=== PATIENT | male | born 1930 | race Caucasian/White ===

== ENCOUNTER 2017-01-27 03:16 | Inpatient (IN) | payer MEDICARE, BC ==
[~2017-01-27] VITALS: Ht 175.3 cm; Wt 78.2 kg
[~2017-01-27 03:16] MED LIST: AMIODARONE HCL200 MG PO; ATENOLOL25 MG PO; ATENOLOL50 MG PO; AZITHROMYCIN250 MG PO; CLARITIN10 MG PO; CORTISONE14 GM TOP; COUMADIN2.5 MG PO; LASIX40 MG PO; LIPITOR20 MG PO; METOPROLOL TART50 MG PO; MICRO-K10 MEQ PO; NORVASC5 MG PO; PREDNISONE20 MG PO; SULFAMETHOXAZO1 EAC1 PO; [UNRECOGNIZED DRUG - REMARK]
[2017-01-27] MEDS ORDERED: FLOMAX0.4 MG PO (04:26)
[2017-01-27] MEDS ORDERED: METOPROLOL TART25 MG PO (04:27)
[2017-01-27] MEDS ORDERED: MIDODRINE HCL10 MG PO (04:28)
[2017-01-27] MEDS ORDERED: ROBAXIN500 MG PO (13:45)
[2017-01-27] MEDS ORDERED: OXYCODONE HCL5 MG PO (14:03)
--- NOTE | 2017-01-27 16:44 | EKG ---
[facility] [address] [facility] [place] [address] Signed Atrial fibrillation with rapid ventricular response Abnormal ECG When compared with ECG of 18-DEC-2016 17:34, Nonspecific T wave abnormality now evident in Inferior leads Confirmed by JAS MAYER MD ([id number]) on 01/27/2017 4:44:08 PM Electronically Signed By: JAS MAYER MD 01/27/17 1644 PATIENT NAME: LAICARINEDORA Electrocardiogram DATE OF : 34 PHYSICIAN: JAS MAYER MD REPORT #: [id number] REPORT IS CONFIDENTIAL AND NOT TO BE RELEASED WITHOUT AUTHORIZATION
--- NOTE | 2017-01-27 16:51 | EKG ---
[facility] [address] [facility] [place], [place] [address] Signed Atrial flutter with variable AV block Prolonged QT Abnormal ECG When compared with ECG of 27-JAN-2017 03:23, (Unconfirmed) No significant change was found Confirmed by JAS MAYER MD ([id number]) on 01/27/2017 4:51:27 PM Electronically Signed By: JAS MAYER MD 01/27/17 1651 PATIENT NAME: LAICARINEDORAVictoria DIXON Electrocardiogram DATE OF : 34 PHYSICIAN: JAS MAYER MD REPORT #: [id number] REPORT IS CONFIDENTIAL AND NOT TO BE RELEASED WITHOUT AUTHORIZATION
[2017-01-28] MEDS ORDERED: CALCIUM 600 MG1 EACH PO (14:43)
[2017-01-28] MEDS ORDERED: VITAMIN E400 UNIT PO (14:43)
[2017-01-28] MEDS ORDERED: VITAMIN C500 M1 PO (14:44)
[2017-01-28] MEDS ORDERED: PROSTATE THERA1 EACH PO (14:45)
[2017-01-28] MEDS ORDERED: TRIAMCINOLONE A15 G1 TOP (15:00)
[2017-01-29] MEDS ORDERED: LORATADINE10 MG PO (09:39)
[2017-01-29] MEDS ORDERED: FERROUS SULFAT325 MG PO (09:40)
[2017-01-29] MEDS ORDERED: METOPROLOL TART25 MG PO (09:41)
[2017-01-29] MEDS ORDERED: LANOXIN62.5 MCG PO (09:43)
[2017-01-29] MEDS ORDERED: FUROSEMIDE20 MG PO (09:44)
[2017-01-29] MEDS ORDERED: POTASSIUM CHLO20 ME1 PO (09:45)
[2017-01-29] MEDS ORDERED: MAG-OXIDE400 MG PO (09:55)
[2017-06-25] MEDS ORDERED: DIGOX125 MCG PO (14:39)
[2017-06-25] MEDS ORDERED: COUMADIN3 MG PO (14:40)
[2017-06-25] MEDS ORDERED: CENTRUM SILVER1 EAC3 PO (14:43)
== END 2017-01-29 13:20 | disposition home or self-care (01) | DRG 293 ==
LOC: ED 03:16 → MS 03:18 → ED 03:18 → MS 03:18
PROVIDERS: ADMIT Internal Medicine
DX: I50.32 Chronic diastolic (congestive) heart failure (principal); I48.2 Chronic atrial fibrillation; R79.89 Other specified abnormal findings of blood chemistry; D50.9 Iron deficiency anemia, unspecified; E78.5 Hyperlipidemia, unspecified; N40.1 Benign prostatic hyperplasia with lower urinary tract symptoms; R33.8 Other retention of urine; Z86.73 Personal history of transient ischemic attack (TIA), and cerebral infarction without residual deficits
CPT/HCPCS: 36415; 71010; 80048; 80053; 80162; 82607; 82728; 82746; 83540; 83735; 83880; 84466; 84484; 85025; 85045; 85610; 93005; 93010; 93306; 94640; 94667; 94668; 94760; 94762; 97110; 97116; 97162; J3475

== ENCOUNTER 2018-10-04 19:55 | Emergency (ER) | payer MEDICARE, BC ==
[~2018-10-04] VITALS: Ht 175.3 cm; Wt 78.2 kg
--- OUTSIDE RECORDS SUMMARY | ~2018-10-04 | XMS | Clinical Summary ---
Demographics + + + | Address | [address] | | | [place] [address] | + + + | Home Phone | | + + + | Preferred Language | Unknown | + + + | Marital Status | | + + + | Tenriism Affiliation | Unknown | + + + | Race | Unknown | + + + | Ethnic Group | Unknown | + + + Author + + + | Author | [facility] | | | and Eduardana | + + + | Organization | [facility] | | | and Eduardana | + + + | Address | Unknown | + + + | Phone | Unavailable | + + + Support + + + + + | Name | Relationship | Address | Phone | + + + + + | Rivka Arellano | ECON | | | | | | [place] | | | | | [address] | | + + + + + Care Team Providers + +------+ + | Care Cable Armorer Name | Role | Phone | + +------+ + | Carlos Alberto Galeas MD | PP | | + +------+ + Allergies + + + + + + | Active Allergy | Reactions | Severity | Noted | Comments | | | | | Date | | + + + + + + | Acetaminophen | Rash | Medium | 12/02/19 | | | | | | 14 | | + + + + + + | Lisinopril | Other (See Comments) | Medium | 12/19/19 | | | | | | 17 | | + + + + + + | Naproxen | Other (See Comments) | High | 01/04/20 | States "put me in | | | | | 17 | the hospital with | | | | | | kidney failure" | | | | | | States "put me in | | | | | | the hospital with | | | | | | kidney failure" | + + + + + + | Olmesartan | Other (See Comments) | Medium | 12/19/19 | | | | | | 17 | | + + + + + + | Penicillins | Swelling, Rash, | High | 01/27/20 | Lips swell eyes | | | Hives | | 13 | swell shut and | | | | | | pruritis | + + + + + + | Prednisone | Other (See Comments) | Medium | 06/12/20 | "Knocks heart out | | | | | 17 | of rhythm" | + + + + + + Current Medications + + +---------+---------+------+------+-------+ | Prescription | Sig. | Disp. | Refills | Star | End | Statu | | | | | | t | Date | s | | | | | | Date | | | + + +---------+---------+------+------+-------+ | atorvaSTATin | Take 20 mg by mouth | | | | | Activ | | (LIPITOR) 20 mg | nightly. | | | | | e | | tablet | | | | | | | + + +---------+---------+------+------+-------+ | calcium-vitamin D | Take 1 tablet by | | | | | Activ | | (CALCIUM 600+D) 600 | mouth 2 times daily. | | | | | e | | mg-200 units per | | | | | | | | tablet | | | | | | | + + +---------+---------+------+------+-------+ | tocopherol | Take 400 Units by | | | | | Activ | | (VITAMIN E) 400 | mouth Daily. | | | | | e | | units capsule | | | | | | | + + +---------+---------+------+------+-------+ | ascorbic acid | Take 500 mg by mouth | | | | | Activ | | (VITAMIN C) 500 mg | Daily. | | | | | e | | tablet | | | | | | | + + +---------+---------+------+------+-------+ | Multiple | Take 1 tablet by | | | | | Activ | | Vitamins-Minerals | mouth Daily. | | | | | e | | (CENTRUM SILVER) | | | | | | | | TABS | | | | | | | + + +---------+---------+------+------+-------+ | tamsulosin | Take 2 capsules by | 30 | 1 | / | | Activ | | (FLOMAX) 0.4 mg CAPS | mouth daily (after | capsule | | 04/10 | | e | | | breakfast). | | | 17 | | | + + +---------+---------+------+------+-------+ | digoxin (LANOXIN) | Take 125 mcg by | | | 05/0 | | Activ | | 125 mcg tablet | mouth. | | | /20 | | e | | | | | | 18 | | | + + +---------+---------+------+------+-------+ | furosemide (LASIX) | Take 20 mg by mouth. | | | | | Activ | | 20 mg tablet | | | | | | e | + + +---------+---------+------+------+-------+ | warfarin | Take 3 mg by mouth | | | | | Activ | | (COUMADIN) 5 mg | Daily. As directed 5 | | | | | e | | tablet | mg on , | | | | | | | | Sat, Saturday or as | | | | | | | | directed by doctor. | | | | | | + + +---------+---------+------+------+-------+ | Misc Natural | Take by mouth 2 | | | | | Activ | | Products (PROSTATE | times daily. | | | | | e | | THERAPY COMPLEX) | | | | | | | | CAPS | | | | | | | + + +---------+---------+------+------+-------+ | warfarin | Take 5 mg by mouth | | | | | Activ | | (COUMADIN) 3 MG | Daily. Saturday, Sat, | | | | | e | | tablet | Saturday | | | | | | + + +---------+---------+------+------+-------+ | metoprolol | Take 25 mg by mouth | | | | | Activ | | tartrate (LOPRESSOR) | 2 times daily. | | | | | e | | 25 mg tablet | | | | | | | + + +---------+---------+------+------+-------+ Active Problems + + + | Problem | Noted Date | + + + | Interstitial lung disease (HCC) | 03/12/2018 | + + + | Subclavian steal syndrome | 02/13/2018 | + + + | Decreased GFR | 02/13/2018 | + + + | Atopic dermatitis | 02/06/2018 | + + + | PVD (peripheral vascular disease) (HCC) | 02/06/2018 | + + + | Hypotension | 02/06/2018 | + + + | Chronic atrial fibrillation (HCC) | 02/02/2018 | + + + | Squamous cell carcinoma of upper extremity | 02/02/2018 | + + + | Essential hypertension | 01/30/2018 | + + + | Parotiditis | 11/20/2017 | + + + | Dehydration, mild | 01/16/2017 | + + + | Orthostasis | 01/16/2017 | + + + | Urinary retention due to benign prostatic hyperplasia | 01/14/2017 | + + + | Benign prostatic hyperplasia with lower urinary tract symptoms | 01/07/2017 | + + + | Acute diastolic heart failure (HCC) | 12/31/2016 | + + + | Postoperative hemorrhagic shock, initial encounter | 12/31/2016 | + + + | Elevated INR | 12/31/2016 | + + + | Delirium | 12/31/2016 | + + + | Anticoagulant long-term use | 12/19/2016 | + + + | Femur fracture, left (HCC) | 12/18/2016 | + + + | Femur fracture, right (HCC) | 12/18/2016 | + + + Resolved Problems + + + + | Problem | Noted | Resolved | | | Date | Date | + + + + | Acute respiratory failure with hypoxia (HCC) | 01/01/20 | | | | 17 | 8 | + + + + | Atrial flutter with rapid ventricular response (HCC) | 01/01/20 | | | | 17 | 8 | + + + + | Atrial flutter (HCC) | 12/19/19 | | | | 17 | 8 | + + + + Encounters +--------+ + + + + | Date | Type | Specialty | Care Team | Description | +--------+ + + + + | 09/11/ | Orders Only | | Ck Newman W, | | | 2018 | | | PharmD | | +--------+ + + + + from Last 3 Months Immunizations + + + + | Name | Dates Previously Given | Next Due | + + + + | INFLUENZA 67 Y OR >, | 03/31/2017 | | | TRIVALENT HIGH-DOSE | | | + + + + | PNEUMOCOCCAL | 03/31/2017 | | | POLYSACCHARIDE | | | | 23-VALENT (PPSV23) | | | + + + + Family History + + +------+ + | Medical History | Relation | Name | Comments | + + +------+ + | Coronary artery | Brother | | | | disease | | | | + + +------+ + | * | Brother | X5 | health statuses unknown | + + +------+ + | Emphysema | Father | | | + + +------+ + | Heart attack | Father | | | + + +------+ + | Heart disease | Father | | | + + +------+ + | Coronary artery | Mother | | CABG | | disease | | | | + + +------+ + | No Known Problems | Sister | | | + + +------+ + + +------+ + + | Relation | Name | Status | Comments | + +------+ + + | Brother | | | | + +------+ + + | Brother | X5 | Alive | | + +------+ + + | Father | | | | + +------+ + + | Mother | | | | + +------+ + + | Sister | | Alive | | + +------+ + + Social History + +-------+ +--------+ [...] + +---------+ + | Alcohol Use | Drinks/We | oz/Week | Comments | | | ek | | | + + +---------+ + | Yes | 1 Cans | 0.6 | beer on rare occasions | | | of beer | | | + + +---------+ + + + + | Sex Assigned at | Date Recorded | | | | + + + | Not on file | | + + + Last Filed Vital Signs + + + + | Vital Sign | Reading | Time Taken | + + + + | Blood Pressure | 138/88 | 03/12/2018 125 PDT | + + + + | Pulse | 63 | 03/12/20181250 PDT | + + + + | Temperature | 36.1 C (96.9 F) | 02/24/2018 0853 PDT | + + + + | Respiratory Rate | 14 | 02/28/20180 PDT | + + + + | Oxygen Saturation | 99% | 03/12/20181250 PDT | + + + + | Inhaled Oxygen | - | - | | Concentration | | | + + + + | Weight | 70.3 kg (154 lb 15.7 | 03/12/2018 125 PDT | | | oz) | | + + + + | Height | 165.1 cm (5' 5") | 03/12/2018 125 PDT | + + + + | Body Mass Index | 25.79 | 03/12/2018 1251 PDT | + + + + Plan of Treatment + + + + + | Health Maintenance | Due Date | Last Done | Comments | + + + + + | Vaccine: | | | | | Dtap/Tdap/Td (1 - | 2 | | | | Tdap) | | | | + + + + + | Vaccine: Zoster (1 | | | | | of 2) | 3 | | | + + + + + | Adult Annual | | | | | Wellness Visit | 5 | | | + + + + + | Vaccine: Influenza | | 03/31/2017 | | | (#1) | 8 | | | + + + + + | Vaccine: | | 03/31/2017 | | | Pneumococcal 65+ | 8 | | | | Low/Medium Risk (2 | | | | | of 2 - PCV13) | | | | + + + + + Implants + +--------+--------+ +--------+--------+--------+ | Implanted | Type | Area | Manufacture | Device | Expira | Model | | | | | r | | tion | / | | | | | | Identi | Date | Serial | | | | | | fier | | / Lot | + +--------+--------+ +--------+--------+--------+ | Imp Blade Hlcl Tfna 105mm | Generi | Left: | SYNTHES - | | 01/18/ | 04.038 | | Strl - [id number]: | c | Femur | SYNT | | 2025 | .305S | | Qty: 1 on 12/19/2016 by | | | | | | / | | Lambert Mancuso MD | | | | | | /[id number] | | | | | | | | 58 | + +--------+--------+ +--------+--------+--------+ | Nail Fem Rg Ex [id number] - | Nail | Right: | SYNTHES - | | 02/18/ | 04.013 | | [id number]: Qty: 1 on | | Femur | SYNT | | 2024 | .764S | | 12/19/2016 by Lambert Mancuso | | | | | | / | | MD Dhruv | | | | | | /[id number] | | | | | | | | 95 | + +--------+--------+ +--------+--------+--------+ | Nail Fem Tfna St 130d [id number] | Nail | Left: | SYNTHES - | | 05/21/ | 04.037 | | L - [id number]: Qty: | | Femur | SYNT | | 2026 | .245S | | 1 on 12/19/2016 by Bartolome, | | | | | | / | | Lambert Bartlett MD | | | | | | /[id number] | | | | | | | | 78 | + +--------+--------+ +--------+--------+--------+ | Screw Im Alonso Slf-Tp F/T | Screw | Right: | SYNTHES - | | | 04.005 | | 5x60mm - [id number]: | | Femur | SYNT | | | .550 / | | Qty: 1 on 12/19/2016 by | | | | | | / | | Lambert Mancuso MD | | | | | | | + +--------+--------+ +--------+--------+--------+ | Screw Im Alonso Slf-Tp F/T | Screw | Right: | SYNTHES - | | | 04.005 | | 5x62mm - [id number]: | | Femur | SYNT | | | .552 / | | Qty: 1 on 12/19/2016 by | | | | | | / | | Lambert Mancuso MD | | | | | | | + +--------+--------+ +--------+--------+--------+ | Screw Im Alonso Slf-Tp F/T | Screw | Right: | SYNTHES - | | | 04.005 | | 5x46mm - [id number]: | | Femur | SYNT | | | .536 / | | Qty: 1 on 12/19/2016 by | | | | | | / | | Lambert Mancuso MD | | | | | | | + +--------+--------+ +--------+--------+--------+ | Screw Im Alonso Slf-Tp F/T | Screw | Left: | SYNTHES - | | | 04.005 | | 5x44mm - [id number]: | | Femur | SYNT | | | .534 / | | Qty: 1 on 12/19/2016 by | | | | | | / | | Lambert Mancuso MD | | | | | | | + +--------+--------+ +--------+--------+--------+ Results Not on filefrom Last 3 Months Insurance + +--------+ +--------+ +---------+ | Payer | Benefi | Subscriber | Type | Phone | Address | | | t Plan | ID | | | | | | / | | | | | | | Group | | | | | + +--------+ +--------+ +---------+ | MEDICARE | MEDICA | [id number] | Medica | +1-- | | | | RE | | re | [phone] | | | | PART A | | | | | | | AND B | | | | | + +--------+ +--------+ +---------+ | BCBS | BCBS | [id number] | Indemn | | | | | OOS | 2 | ity | | | | | MDCR | | | | | | | SUPPL | | | | | + +--------+ +--------+ +---------+ + +--------+ +--------+ + + | Guarantor Name | Accoun | Relation to | Date | Phone | Billing Address | | | t Type | Patient | of | | | | | | | | | | + +--------+ +--------+ + + | DORA ARELLANO | Person | Self [birth year] | Home: | | | | al/Fam | | 1931 | [phone] | [place] [address] | | | dorothea | | | [phone] | | + +--------+ +--------+ + +
--- OUTSIDE RECORDS SUMMARY | ~2018-10-04 | XMS | Encounter Summary ---
Demographics + + + | Address | [address] | | | [place] [address] | + + + | Home Phone | | + + + | Preferred Language | Unknown | + + + | Marital Status | | + + + | Samaritan Affiliation | Unknown | + + + | Race | Unknown | + + + | Ethnic Group | Unknown | + + + Author + + + | Author | [facility] | | | and Eduardana | + + + | Organization | [facility] | | | and Eduardana | [...] [place] | | | | | [address] | | + + + + + Care Team Providers + +------+ + | Care Continuous Pillowcase Cutter Name | Role | Phone | + [...] | | | | | [address] | [address] [place] | | | | | [place] | [address] | | | | | [address] | | | | | | [phone] | | | +--------+ + + + [...] on file | | + + + as of this encounter Functional Status + [...] | | | + + + + as of this encounter Progress Notes Ck Newman, PharmD - 09/11/2018 0942 PSTIn October 2018 the Electronic Medical Record (EM R) system used by [facility] will be updated. The category used to file the infusion therapy plan currently ordered for this patient is to be discontinued. Th e changes to the order category within the EMR are administrative and in no way affect the c are of the patient. This encounter was created in the EMR to review the current orders for this patient and moustapha e the necessary changes to insure continuity of care. Please contact the [facility] at with any questions regarding these dwyer ashleigh. in this encounter Plan of Treatment Not on fileas of this encounter Visit Diagnoses Not on filein this encounter"
--- OUTSIDE RECORDS SUMMARY | ~2018-10-04 | XMS | Encounter Summary ---
Demographics + + + | Address | [address] | | | [place] [address] | + + + | Home Phone | | + + + | Preferred Language | Unknown | + + + | Marital Status | | + + + | Jehovah'S Witness Affiliation | Unknown | + + + | Race | Unknown | + + + | Ethnic Group | Unknown | + + + Author + + + | Author | [facility] | | | and Eduardana | + + + | Organization | [facility] | | | and Eduardana [...] [place] | | | | | [address] | | + + + + + Care Team Providers + +------+ + | Care Construction Rep Name | Role | Phone | + +------+ + | Carlos Alberto Gaelas MD | PCP | | + +------+ [...] | | | | | [address] | [address] [place] | | | | | [place] | [address] | | | | | [address] | | | | | | [phone] | | | +--------+ + + + [...] Medical Record (EM R) system used by [facility] will be updated. The category used to [...] insure continuity of care. Please contact the [facility] at with any questions regarding these dwyer ashleigh. in this encounter Plan of Treatment Not on fileas of this encounter Visit Diagnoses Not on filein this encounter"
--- OUTSIDE RECORDS SUMMARY | ~2018-10-04 | XMS | Clinical Summary ---
Demographics + + + | Address | [address] | | | [place] [address] | + + + | Home Phone [...] + + | Author | [facility] | | | and Eduardana | + + + | Organization | [facility] [...] [place] | | | | | [address] | | + + + + + Care Team Providers + +------+ + | Care Tech Brazer Tester Name | Role | Phone | + [...] 01/18/ | 04.038 | | Strl - [id number]: | c | Femur | SYNT | | 2025 | .305S | | Qty: 1 on 12/19/2016 by | | | | | | / | | Lambert Mancuso MD | | | | | | /[id number] | | | | | | | | 58 | + +--------+--------+ +--------+--------+--------+ | Nail Fem Rg Ex [id number] - | Nail | Right: | SYNTHES - | | 02/18/ | 04.013 | | [id number]: Qty: 1 on | | Femur | SYNT | | 2024 | .764S | | 12/19/2016 by Lambert Mancuso | | | | | | / | | MD Dhruv | | | | | | /[id number] | | | | | | | | 95 | + +--------+--------+ +--------+--------+--------+ | Nail Fem Tfna St 130d [id number] | Nail | Left: | SYNTHES - | | 05/21/ | 04.037 | | L - [id number]: Qty: | | Femur | SYNT | [...] | | 04.005 | | 5x60mm - [id number]: | | Femur | SYNT | | | .550 / | | Qty: 1 on 12/19/2016 by | | | | | | / | | Lambert Mancuso MD | | | | | | | + +--------+--------+ +--------+--------+--------+ | Screw Im Alonso Slf-Tp F/T | Screw | Right: | SYNTHES - | | | 04.005 | | 5x62mm - [id number]: | | Femur | SYNT | | | .552 / | | Qty: 1 on 12/19/2016 by | | | | | | / | | Lambert Mancuso MD | | | | | | | + +--------+--------+ +--------+--------+--------+ | Screw Im Alonso Slf-Tp F/T | Screw | Right: | SYNTHES - | | | 04.005 | | 5x46mm - [id number]: | | Femur | SYNT | | | .536 / | | Qty: 1 on 12/19/2016 by | | | | | | / | | Lambert Mancuso MD | | | | | | | + +--------+--------+ +--------+--------+--------+ | Screw Im Alonso Slf-Tp F/T | Screw | Left: | SYNTHES - | | | 04.005 | | 5x44mm - [id number]: | | Femur | SYNT | | [...] +--------+ +---------+ | MEDICARE | MEDICA | [id number] | Medica | +1-- | | | | RE | | re | [phone] | | | | PART A | | | | | | | AND B | | | | | + +--------+ +--------+ +---------+ | BCBS | BCBS | [id number] | Indemn | | | | | [...] | 1931 | [phone] | [place] [address] | | | dorothea | | | [phone] | | + +--------+ +--------+ + +
[~2018-10-04 19:55] MED LIST changes: +CALCIUM 600 MG1 EACH PO; +CENTRUM SILVER1 EAC3 PO; +COUMADIN3 MG PO; +COUMADIN5 MG PO; +DIGOX125 MCG PO; +FERROUS SULFAT325 MG PO; +FLOMAX0.4 MG PO; +FUROSEMIDE20 MG PO; +LANOXIN62.5 MCG PO; +LORATADINE10 MG PO; +MAG-OXIDE400 MG PO; +METOPROLOL TART25 MG PO; +MIDODRINE HCL10 MG PO; +OXYCODONE HCL5 MG PO; +POTASSIUM CHLO20 ME1 PO; +PROSTATE THERA1 EACH PO; +ROBAXIN500 MG PO; +TRIAMCINOLONE A15 G1 TOP; +VITAMIN C500 M1 PO; +VITAMIN E400 UNIT PO
--- NOTE | 2018-10-05 19:49 | EKG ---
[facility] [address] [facility] [place], [place] [address] Signed Atrial flutter with variable AV block Abnormal ECG When compared with ECG of 27-JAN-2017 16:06, QT has shortened Confirmed by MARTÍN NELSON DO ([id number]) on 10/05/2018 7:49:20 PM Electronically Signed By: MARTÍN NELSON DO 10/05/18 1949 PATIENT NAME: MARTA ARELLANOVictoria MCCORDDESTINY Electrocardiogram DATE OF : 34 PHYSICIAN: MARTÍN NELSON DO REPORT #: [id number] REPORT IS CONFIDENTIAL AND NOT TO BE RELEASED WITHOUT AUTHORIZATION
== END 2018-10-04 21:26 | disposition home or self-care (01) ==
LOC: ED 19:55
DX: I50.9 Heart failure, unspecified (principal); I48.91 Unspecified atrial fibrillation; Z86.73 Personal history of transient ischemic attack (TIA), and cerebral infarction without residual deficits; Z87.891 Personal history of nicotine dependence; Z88.0 Allergy status to penicillin; Z88.8 Allergy status to other drugs, medicaments and biological substances; Z79.01 Long term (current) use of anticoagulants; Z79.899 Other long term (current) drug therapy
CPT/HCPCS: 71046; 80053; 80162; 83735; 83880; 84484; 85025; 85610; 85730; 93005; 93010; 96374; 99285-25; J1940

== ENCOUNTER 2019-08-14 07:37 | Emergency (ER) | payer MEDICARE ==
[~2019-08-14] VITALS: Ht 175.3 cm; Wt 78.2 kg
[2019-08-14] MEDS ORDERED: COLACE100 MG PO (08:52)
== END 2019-08-14 09:24 | disposition home or self-care (01) ==
LOC: ED 07:37
DX: K59.00 Constipation, unspecified (principal); I48.91 Unspecified atrial fibrillation; Z86.73 Personal history of transient ischemic attack (TIA), and cerebral infarction without residual deficits; Z88.0 Allergy status to penicillin; Z88.8 Allergy status to other drugs, medicaments and biological substances; Z79.899 Other long term (current) drug therapy; Z79.01 Long term (current) use of anticoagulants
CPT/HCPCS: 74022; 99284-25

== ENCOUNTER 2019-11-20 08:58 | Emergency (ER) | payer MEDICARE ==
[~2019-11-20] VITALS: Ht 175.3 cm; Wt 78.2 kg
--- OUTSIDE RECORDS SUMMARY | ~2019-11-20 | XMS | Encounter Summary ---
Demographics + + + | Address | [address] | | | [place] [address] | + + + | Home Phone | | + + + | Preferred Language | Unknown | + + + | Marital Status | | + + + | Anabaptist Affiliation | Unknown | + + + | Race | Unknown | + + + | Ethnic Group | Unknown | + + + Author + + + | Author | [facility] | | | and Eduardana | + + + | Organization | [facility] | | | and Eduardana | + + + | Address | Unknown | + + + | Phone | Unavailable | + + + Support + + + + + | Name | Relationship | Address | Phone | + + + + + | Rivka Thomason | [place] | | | | | | [place] | | | | | [address] | | + + + + + Care Team Providers + +------+ + | Care Sander Hand Name | Role | Phone | + +------+ + | Carlos Alberto Galeas MD | PCP | | + +------+ + Reason for Visit Evaluate & Treat (Routine) + + + + + + + | Status | Reason | Specialty | Diagnoses / | Referred By | Referred To | | | | | Procedures | Contact | Contact | + + + + + + + | Authorized | Specialty | Vascular | Diagnoses | [place], | [facility] | | | Services | Surgery | Chronic | MD Paolo | Surgery | | | Required | | atrial | [address] | | | | | fibrillation | [address] | [address] | | | | | (HCC) | [address] | [place], [place] | | | | | Essential | [place], [place] | [address] | | | | | hypertension | [address] | Phone: | | | | | PVD | Phone: | [phone] | | | | | (peripheral | [phone] | Fax: | | | | | vascular | Fax: | [phone] | | | | | disease) | [phone] | | | | | | ([facility]) | | | | | | | Bilateral | | | | | | | carotid | | | | | | | artery | | | | | | | stenosis | | | + + + + + + + Encounter Details +--------+ + + + + | Date | Type | Department | Care Team | Description | +--------+ + + + + | 07/02/ | Hospital | [facility] | Yoav, Si, DNP | PAD (peripheral | | 2019 | Encounter | VASCULAR SURGERY | [address] | artery disease) | | | | ULTRASOUND [address] | [address] [place], [place] | ([facility]) | | | | [address] | [address] | | | | | [place], [place] | | | | | | [address] | | | | | | [phone] | | | +--------+ + + + + Social History + +-------+ +--------+ + | Tobacco Use | Types | Packs/Day | Years | Date | | | | | Used | | + +-------+ +--------+ + | Former Smoker | | 1 | 50 | 3 2002 | + +-------+ +--------+ + + [...] on file | | + + + + + + + | Job Start Date | Occupation | Industry | + + + + | Not on file | Not on file | Not on file | + + + + + + + + | Travel History | Travel Start | Travel End | + + + + + + | No recent travel history available. | + + documented as of this encounter [...] + + + +---------+ + + | Ascorbic Acid | Take 1 capsule by | | 0 | | | | (VITAMIN C) 500 MG | mouth Daily. | | | | | | CAPS [...] + + + +---------+ + + | [facility] M20 20 | | | 0 | 09/07/19 | | | MEQ ER tablet | | | | 19 | | + + + +---------+ + [...] + +---------+ + + | tocopherol | vitamin E (dl, | | 0 | | | | (VITAMIN E) 400 | acetate) 400 unit | | | | | | units capsule | capsule Take by oral | | | | | | | route. | | | | | + + + +---------+ + + | warfarin | Take 3 mg by mouth | | 0 | | | | (COUMADIN) 3 MG | Daily. 3 mg on Mon | | | | | | tablet | and Fri | | | | | + + + +---------+ + + | warfarin | Take 5 mg by mouth | | 0 | | | | (COUMADIN) 5 mg | Daily. 5 mg on Tues, | | | | | | tablet | Isaac Fernando Sat, | | | | | | | Sun | | | | | + + + +---------+ + + documented as of this encounter Plan of Treatment +--------+---------+ + + + | Date | Type | Specialty | Care Team | Description | +--------+---------+ + + + | 01/26/ | Office | Cardiology | Paolo Selby, | | | 2019 | Visit | | MD Marjan MAIRNELLI | | | | | | [address] [place] | | | | | | [id number] | | | | | | | | +--------+---------+ + + + documented as of this encounter Visit Diagnoses + + | Diagnosis | + + | PAD (peripheral artery disease) (HCC) Unspecified disorders of arteries and | | arterioles | + + documented in this encounter"
--- OUTSIDE RECORDS SUMMARY | ~2019-11-20 | XMS | Encounter Summary ---
Demographics + + + | Address | [address] | | | [place] [address] | + + + | Home Phone | | + + + | Preferred Language | Unknown | + + + | Marital Status | | + + + | Yazidism Affiliation | Unknown | + + + | Race | Unknown | + + + | Ethnic Group | Unknown | + + + Author + + + | Author | [facility] | | | and [place]ard[place] | + + + | Organization | [facility] | | | and Eduardana | + + + | Address | Unknown | + + + | Phone | Unavailable | + + + Support + + + + + | Name | Relationship | Address | Phone | + + + + + | Rivka Thomason | ECON | | | | | | [place] | | | | | [address] | | + + + + + Care Team Providers + +------+ + | Care Supply Chain Director Name | Role | Phone | + +------+ + | Carlos Alberto Galeas MD | PCP | | + +------+ + Encounter Details +--------+ + + + + | Date | Type | Department | Care Team | Description | +--------+ + + + + | 01/07/ | Hospital | [facility] | Michael Alston | Stenosis of carotid | | 2019 | Encounter | [facility] ULTR[facility]OUND | MD Dante, FACS [address] | artery, unspecified | | | | [address] [place] | [address] [place] | laterality | | | | [place], [place] | [place] [address] | | | | | [address] | [phone] | | | | | [phone] | | | +--------+ + + + + Social History + +-------+ +--------+ + | Tobacco Use | Types | Packs/Day | Years | Date | | | | | Used | | + +-------+ +--------+ + | Former Smoker | | 1 | 50 | 3 - 2002 | + +-------+ +--------+ + [...] + + + +---------+ + + | KLOR-CON M20 20 | | | 0 | [...] 5 mg | Daily. 5 mg on , | | | | | | tablet [...] + + + +---------+ + + | triamcinolone | | | 0 | 10/07/19 | | | (KENALOG) 0.1% cream | | | | 19 | 9 | + + + +---------+ + + documented as of this encounter Plan of Treatment +--------+---------+ + + + | Date | Type | Specialty | Care Team | Description | +--------+---------+ + + + | 01/26/ | Office | Cardiology | Paolo Selby, | | | 2019 | Visit | | MD Marjan MARINELLI | | | | | | [address] [place], [place] | | | | | | [address] | | | | | | | | +--------+---------+ + + + documented as of this encounter Procedures + +--------+ + + + | Procedure Name | Priori | Date/Time | Associated Diagnosis | Comments | | | ty | | | | + +--------+ + + + | VAS CAROTID DUPLEX | Routin | 01/07/2019 | 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Results for this | | BILATERAL | e | 2:50 PM | carotid artery, | procedure are in the | | | | PDT | unspecified | results section. | | | | | laterality | | + +--------+ + + + documented in this encounter Results VAS Carotid Duplex Bilateral (01/07/2019 2:50 PM PDT) + + | Specimen | + + | | + + + + + | Narrative | Performed At | + + + | BILATERAL DUPLEX CAROTID ULTRASOUND 01/07/2019 1:53 PM CLINICAL | [facility] | | HISTORY: Carotid Stenosis COMPARISON: CTA DECEMBER 25, ULTRASOUND JANUARY | | | 2017 FINDINGS: Grayscale, color Doppler and duplex Doppler | | | interrogation of the bilateral cervical carotid arteries is | | | performed. All reported velocities are in cm/sec. ANTERIOR | | | CIRCULATION: Right: CCA: 39/11; bulb: 240/30 (bulb/CCA 6.1, | | | previously 162/20 with ratio of 3.6); ECA: 229/25; ICA: 187/26 | | | (ICA/CCA 4.8, previously 5.4) Left: CCA: 57/10; bulb: 107/19; ECA: | | | 194/9; ICA: 130/17 (ICA/CCA 2.3, previously 155/27 with ratio of | | | 2.9) Posterior circulation: The right vertebral artery is not | | | identified. To and fro flow is suggested in the left vertebral | | | artery. Grayscale findings: Prominent echogenic, irregular plaque | | | is present in the right carotid bulb and extending into the origin of | | | the internal and external carotid arteries. Attached but mobile | | | echogenic plaque is noted in the carotid bulb. There is prominent | | | echogenic, shadowing plaque in the left carotid bulb, somewhat | | | obscuring the origins of the internal and external carotid arteries. | | | IMPRESSION - 1. FINDINGS CONSISTENT WITH GREATER THAN 70% | | | STENOSIS AT THE LEVEL OF THE RIGHT CAROTID BULB BASED ON PEAK | | | SYSTOLIC VELOCITY AND BULB/RATIO CRITERIA, CORRESPONDING WITH | | | FINDINGS DESCRIBED ON RECENT CTA OF DECEMBER 25, AND INCREASED FROM | | | ULTRASOUND OF JANUARY 2018. AN ATTACHED BUT MOBILE PIECE OF PLAQUE IS | | | NOTED IN THE RIGHT CAROTID BULB. 2. FINDINGS CONSISTENT WITH | | | 50-69% STENOSIS OF THE PROXIMAL LEFT INTERNAL CAROTID ARTERY. 3. | | | TO AND FRO FLOW IN THE LEFT VERTEBRAL ARTERY, LIKELY RELATED TO | | | PROXIMAL SUBCLAVIAN ARTERIAL STENOSIS NOTED ON CTA. Dictated and | | | Signed by: Daniel Jordan MD Electronically signed: 01/07/2019 6:25 | | | PM | | + + + + + | Procedure Note | + + | Stan, Rad Results In - 01/07/2019 6:28 PM PDT BILATERAL DUPLEX CAROTID ULTRASOUND | | 01/07/2019 1:53 PMCLINICAL HISTORY: Carotid StenosisCOMPARISON: CTA DECEMBER 25, ULTRASOUND | | JANUARY 2018FINDINGS: Grayscale, color Doppler and duplex Doppler interrogation of | | thebilateral cervical carotid arteries is performed. All reported velocities arein | | cm/sec.ANTERIOR CIRCULATION:Right: CCA: 39/11; bulb: 240/30 (bulb/CCA 6.1, previously | | 162/20 with ratio of3.6); ECA: 229/25; ICA: 187/26 (ICA/CCA 4.8, previously 5.4)Left: | | CCA: 57/10; bulb: 107/19; ECA: 194/9; ICA: 130/17 (ICA/CCA 2.3, [id number] with | | ratio of 2.9)Posterior circulation: The right vertebral artery is not identified. To | | and froflow is suggested in the left vertebral artery.Grayscale findings: Prominent | | echogenic, irregular plaque is present in theright carotid bulb and extending into the | | origin of the internal and externalcarotid arteries. Attached but mobile echogenic | | plaque is noted in the carotidbulb. There is prominent echogenic, shadowing plaque in | | the left carotid bulb,somewhat obscuring the origins of the internal and external | | carotid arteries.IMPRESSION -1. FINDINGS CONSISTENT WITH GREATER THAN 70% STENOSIS AT | | THE LEVEL OF THERIGHT CAROTID BULB BASED ON PEAK SYSTOLIC VELOCITY AND BULB/RATIO | | CRITERIA,CORRESPONDING WITH FINDINGS DESCRIBED ON RECENT CTA OF DECEMBER 25, AND | | INCREASEDFROM ULTRASOUND OF JANUARY 2018. AN ATTACHED BUT MOBILE PIECE OF PLAQUE IS | | NOTEDIN THE RIGHT CAROTID BULB.2. FINDINGS CONSISTENT WITH 50-69% STENOSIS OF THE | | PROXIMAL LEFT INTERNALCAROTID ARTERY.3. TO AND FRO FLOW IN THE LEFT VERTEBRAL ARTERY, | | LIKELY RELATED TO PROXIMALSUBCLAVIAN ARTERIAL STENOSIS NOTED ON CTA.Dictated and Signed | | by: Daniel Jordan MD Electronically signed: 01/07/2019 6:25 PM | |right carotid bulb and extending into the origin of the internal and external | |carotid arteries. Attached but mobile echogenic plaque is noted in the carotid | |bulb. There is prominent echogenic, shadowing plaque in the left carotid bulb, | |somewhat obscuring the origins of the internal and external carotid arteries. | | | |IMPRESSION - | |1. FINDINGS CONSISTENT WITH GREATER THAN 70% STENOSIS AT THE LEVEL OF THE | |RIGHT CAROTID BULB BASED ON PEAK SYSTOLIC VELOCITY AND BULB/RATIO CRITERIA, | |CORRESPONDING WITH FINDINGS DESCRIBED ON RECENT CTA OF DECEMBER 25, AND INCREASED | |FROM ULTRASOUND OF JANUARY 2018. AN ATTACHED BUT MOBILE PIECE OF PLAQUE IS NOTED | |IN THE RIGHT CAROTID BULB. | | | |2. FINDINGS CONSISTENT WITH 50-69% STENOSIS OF THE PROXIMAL LEFT INTERNAL | |CAROTID ARTERY. | | | |3. TO AND FRO FLOW IN THE LEFT VERTEBRAL ARTERY, LIKELY RELATED TO PROXIMAL | |SUBCLAVIAN ARTERIAL STENOSIS NOTED ON CTA. | | | |Dictated and Signed by: Daniel Jordan MD | | Electronically signed: 01/07/2019 6:25 PM | + + + +---------+ + + | Performing | Address | City[facility] | Phone Number | | Organization | | | | + +---------+ + + | [facility] | | | | + +---------+ + + documented in this encounter Visit Diagnoses + + | Diagnosis | + + | Stenosis of carotid artery, unspecified laterality | + + documented in this encounter"
--- OUTSIDE RECORDS SUMMARY | ~2019-11-20 | XMS | Encounter Summary ---
Demographics + + + | Address | [address] | | | [place] [address] | + + + | Home Phone | | + + + | Preferred Language | Unknown | + + + | Marital Status | | + + + | Spiritism Affiliation | Unknown | + + + | Race | Unknown | + + + | Ethnic Group | Unknown | + + + Author + + + | Author | [facility] | | | and [place]ard[place] | + + + | Organization | [facility] | | | and [place] | [...] [place] | | | | | [address] | | + + + + + Care Team Providers + +------+ + | Care Compliance Consultant Name | Role | Phone | + +------+ + | Carlos Alberto Galeas MD | PCP | | + +------+ + Reason for Visit + + + | Reason | Comments | + + + | Follow-up | post left angio and left fem endart | + + + Encounter Details +--------+---------+ + + + | Date | Type | Department | Care Team | Description | +--------+---------+ + + + | 09/29/ | Office | [facility] | Osmin Garber MD | Critical limb | | 2019 | Visit | VASCULAR SURGERY | [address] | ischemia with | | | | [address] | [address] | history of | | | | [place], [place] | [place] [address] | revascularization of | | | | [address] | [phone] | same extremity | | | | [phone] | | (Primary Dx) | +--------+---------+ + + + Social History [...] this encounter Last Filed Vital Signs + +---------+ + + | Vital Sign | Reading | Time Taken | Comments | + +---------+ + + | Blood Pressure | 145/72 | 09/30/2019 2:59 PM | | | | | PDT | | + +---------+ + + | Pulse | 64 | 09/30/2019 2:59 PM | | | | | PDT | | + +---------+ + + | Temperature | - | - | | + +---------+ + + | Respiratory Rate | - | - | | + +---------+ + + | Oxygen Saturation | 98% | 09/30/2019 2:59 PM | | | | | PDT | | + +---------+ + + | Inhaled Oxygen | - | - | | | Concentration | | | | + +---------+ + + | Weight | - | - | | + +---------+ + + | Height | - | - | | + +---------+ + + | Body Mass Index | - | - | | + +---------+ + + documented in this encounter Functional [...] documented as of this encounter Progress Notes Osmin Garber MD - 09/30/2019 3:30 PM PDTFormatting of this note might be different from t he original. [facility] [address] [place] [address] Office: [phone] DATE OF VISIT: 09/30/19 PATIENT NAME: Deborah Thomason : 1930; AGE:89 y.o.; Sex:M PHONE NUMBER: ; PHYSICIAN: Osmin Garber MD PRIMARY CARE / REFERRING PHYSICIAN: No ref. provider found / Carlos Alberto Galeas MD / [id number] / [place] [id number] REASON FOR EVALUATION / CHIEF COMPLAINT: evaluation status-post left common femoral endarte rectomy, left profunda femoral endarterectomy, left external iliac artery endarterectomy, ao rtogram, left lower extremity angiogram, left common iliac artery angioplasty, and left exte rnal iliac artery angioplasty HISTORY OF PRESENT ILLNESS: Mr Thomason is a pleasant 89 y.o. male, with a past medical histor y significant for atrial fibrillation, previous cerebrovascular accident, congestive heart f ailure, coronary artery disease, and peripheral vascular disease, who is referred to nc for evaluation status-post left common femoral endarterectomy, left profunda femoral endarterect shahnaz, left external iliac artery endarterectomy, aortogram, left lower extremity angiogram, l eft common iliac artery angioplasty, and left external iliac artery angioplasty. Patient had undergone a left common femoral endarterectomy, left profunda femoral endarterectomy, left external iliac artery endarterectomy, aortogram, left lower extremity angiogram, left common iliac artery angioplasty, and left external iliac artery angioplasty with nc on 09/11/2019. Patient has been overall well and gradually recovering since that time. Patient does continu e to experience left foot pain that is mildly improved when compared to before the surgery. Patient states symptoms are notably worse in the mornings, but improve throughout the day. 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 PVD (peripheral vascular disease) ([facility]) 02/06/2018 PVD (peripheral vascular disease) ([facility]) Urinary retention Past Surgical History: Procedure Laterality Date ARTERY SURGERY Left 09/11/2019 Procedure: ENDARTERECTOMY FEMORAL; Surgeon: Osmin Garber MD; [place] [facility] [place] [facility] [place] CAROTID ENDARTERECTOMY Right CATARACT REMOVAL WITH IMPLANT Bilateral 03/30/10 and 04/27/10 CORONARY ANGIOPLASTY without stent [facility] [id number] FEMUR FRACTURE SURGERY Right 12/19/2016 Procedure: ORIF IM RODDING FEMORAL ANTEGRADE; Surgeon: Lambert Mancuso MD; Location: [facility] MAIN OR FEMUR FRACTURE SURGERY Left [...] l umen on Q pain pump placement. [facility] - Dr. Delaney Right thigh biopsy 10/24/2011 nonspecific chronic dermatitis Ultrasound guided access, right common femoral artery 11/30/2013 Right iliac angiography, Right femoral angiography with runoff. [facility] - Dr. Delaney Social History Tobacco Use Smoking status: Former Smoker Packs/day: 1.00 Years: 50.00 Pack years: 50.00 Start date: 1952 Last attempt to quit: 2002 Years since quittin.2 Smokeless tobacco: Never Used Substance Use Topics Alcohol use: Not Currently Alcohol/week: 1.0 standard drinks Types: 1 Cans of beer per week Frequency: Never Comment: no alcohol for years Drug use: No Family History Problem Relation Age of Onset Coronary artery disease Mother CABG Heart attack Father Heart disease Father Emphysema Father No known problems Sister Coronary artery disease Brother * Brother health statuses unknown Current Outpatient Medications on File Prior to Visit Medication Sig Dispense Refill amiodarone (PACERONE) 200 mg tablet Take 1 tablet by mouth Daily. 60 tablet 3 Ascorbic Acid (VITAMIN C) 500 MG CAPS Take 1 capsule by mouth Daily. calcium-vitamin D (CALCIUM 600+D) 600 mg-200 units per tablet Take 1 tablet by mouth 2 times daily. clopidogrel (PLAVIX) 75 mg tablet Take 1 tablet by mouth Daily. 60 tablet 3 digoxin (LANOXIN) 125 mcg tablet Take 125 [...] (See Comments) "Knocks heart out of rhythm" ROS: Comprehensive ROS performed and pertinent items described in the HPI. VITALS: BP 145/72 | Pulse 64 | SpO2 98% EXAM: CONSTITUTIONAL: Conversant. Well-developed. No acute distress. EYES: Anicteric sclerae. No lid drag. No proptosis. RESPIRATORY: Normal effort. Regular, even, and unlabored rate. CARDIOVASCULAR: Regular rate and normal rhythm. ABDOMEN: Soft, non-tender, non-distended. SKIN: warm, dry EXTREMITIES: 1+ edema left lower extremity, small lesion at base of left MTP on lateral bonnie t, improved from previous, left groin incision well approximated with samy c/d/I. NEUROLOGIC: Cranial nerves II-XII grossly intact. Alert and oriented x 3. PSYCHIATRIC: Appropriate affect, speech, and tone. Judgement and insight intact. VASCULAR: monophasic-biphasic DP/PT ASSESSMENT/PLAN: Mr. Thomason is doing well post op from left iliac stents, and external iliac, [employer] PAYMENTS RECEIVED, and PFA en darterectomy for LLE CLI. 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 Deferred treating at last operation as my hope was improved inflow would aid healing and get him out of rest tk n. Wound does seem to be improving. He reports continued discomfort in foot however. He h as non-compressible JEREMY's however waveforms at digit look overall much improved. It took hi m awhile to recover from his last procedure. I will see him back in 1 month. If he continu es to have issues I will pursue further intervention on the LLE. Patient and his comfo rtable with the plan. Attending Note: Documentation assistance provided by Livia Ch (Scribe). Information recorded by the scribe has been reviewed and validated by me. I agree with its contents. Signed by: Raiza Mccall 09/30/19. Osmin Garber MD Vascular Surgery Coby oswald in this encounter Plan of Treatment +--------+---------+ + + + | Date | Type | Specialty | Care Team | Description | +--------+---------+ + + + | 01/26/ | Office | Cardiology | Paolo Selby, | | | 2019 | Visit | | MD Marjan MARINELLI | | | | | | [address] [place], [place] | | | | | | [id number] | | | | | | | | +--------+---------+ + + + documented as of this encounter Visit Diagnoses + + | Diagnosis | + + | Critical limb ischemia with history of revascularization of same extremity - Primary | + + documented in this encounter
--- OUTSIDE RECORDS SUMMARY | ~2019-11-20 | XMS | Encounter Summary ---
Demographics + + + | Address | [address] | | | [place] [address] | + + + | Home Phone | | + + + | Preferred Language | Unknown | + + + | Marital Status | | + + + | Taoism Affiliation | Unknown | + + + | Race | Unknown | + + + | Ethnic Group | Unknown | + + + Author + + + | Author | [facility] | | | and [place]ardana | + + + | Organization | [facility] | | | and [place] | [...] [place] | | | | | [address] | | + + + + + Care Team Providers + +------+ + | Care Suede Brusher Name | Role | Phone | + +------+ + | Carlos Alberto Galeas MD | PCP | | + +------+ + Encounter Details +--------+ + + + + | Date | Type | Department | Care Team | Description | +--------+ + + + + | 02/03/ | Hospital | [facility] | Adal, Carlos Alberto | PVD (peripheral | | 2018 | Encounter | MED CTR ULTRASOUND | MD Dylan [address] | vascular disease) | | | | [address] | [place] [address] | ([facility]) | | | | [address] | [place] [address] | | | | | [address] | [phone] | | | | | [phone] | | | +--------+ + + + [...] | 01/26/ | Office | Cardiology | [place], [place], | | | 2020 | Visit | | [address] | | | | | | [address] [facility] [place] | | | | | | [address] | | | | | | | [...] the | | | | PDT | ([facility]) | results section. | + +--------+ + [...] + | Stan, Rad Results In - 02/03/2018 3:55 PM PDT [...] the proximal bypass.Dictated and Signed by: Nikko Morejon | | Electronically signed: 02/03/2018 3:52 PM [...]
--- OUTSIDE RECORDS SUMMARY | ~2019-11-20 | XMS | Encounter Summary ---
Demographics + + + | Address | [address] | | | [place] [address] | + + + | Home Phone | | + + + | Preferred Language | Unknown | + + + | Marital Status | | + + + | Yarsanism Affiliation | Unknown | + + + | Race | Unknown | + + + | Ethnic Group | Unknown | + + + Author + + + | Author | [facility] | | | and [place] | + + + | Organization | [facility] | | | and [place] [...] [place] | | | | | [id number] | | + + + + + Care Team Providers + +------+ + | Care Medical Lab Specialist Name | Role | Phone | + +------+ + | Carlos Alberto Galeas MD | PCP | | + +------+ + Encounter Details +--------+ + + + + | Date | Type | Department | Care Team | Description | +--------+ + + + + | 02/06/ | Abstract | [facility] | Michael Alston | | | 2018 | | SURGERY [address] MD, FACS [address] | | [address] [place], [place] | [address] [place] | | | | | [address] | [place] [address] | | | | | [phone] | [phone] | | | | | | | | +--------+ + + + [...] | 01/26/ | Office | Cardiology | Jama Selbydanis, | | | 2019 | Visit | | MD Marjan MARINELLI | | | | | | [place] | | | | | | [id number] | | | | | | | | +--------+---------+ + + + documented as of this encounter Procedures + +--------+ + + + | Procedure Name | Priori | Date/Time | Associated Diagnosis | Comments | | | ty | | | | + +--------+ + + + | EXTERNAL LAB: | Routin | 11/18/2017 | | Results for this | | GLUCOSE | e | | | procedure are in the | | | | | | results section. | + +--------+ + + + | EXTERNAL LAB: ALT | Routin | 11/18/2017 | | Results for this | | | e | | | procedure are in the | | | | | | results section. | + +--------+ + + + | EXTERNAL LAB: AST | Routin | 11/18/2017 | | Results for this | | | e | | | procedure are in the | | | | | | results section. | + +--------+ + + + | EXTERNAL LAB: | Routin | 11/18/2017 | | Results for this | | ALKALINE PHOSPHATASE | e | | | procedure are in the | | | | | | results section. | + +--------+ + + + | EXTERNAL LAB: | Routin | 11/18/2017 | | Results for this | | BILIRUBIN, TOTAL | e | | | procedure are in the | | | | | | results section. | + +--------+ + + + | EXTERNAL LAB: | Routin | 11/18/2017 | | Results for this | | ALBUMIN | e | | | procedure are in the | | | | | | results section. | + +--------+ + + + | EXTERNAL LAB: | Routin | 11/18/2017 | | Results for this | | PROTEIN, TOTAL | e | | | procedure are in the | | | | | | results section. | + +--------+ + + + | EXTERNAL LAB: | Routin | 11/18/2017 | | Results for this | | CALCIUM | e | | | procedure are in the | | | | | | results section. | + +--------+ + + + | EXTERNAL LAB: CARBON | Routin | 11/18/2017 | | Results for this | | DIOXIDE | e | | | procedure are in the | | | | | | results section. | + +--------+ + + + | EXTERNAL LAB: | Routin | 11/18/2017 | | Results for this | | CHLORIDE | e | | | procedure are in the | | | | | | results section. | + +--------+ + + + | EXTERNAL LAB: | Routin | 11/18/2017 | | Results for this | | POTASSIUM | e | | | procedure are in the | | | | | | results section. | + +--------+ + + + | EXTERNAL LAB: SODIUM | Routin | 11/18/2017 | | Results for this | | | e | | | procedure are in the | | | | | | results section. | + +--------+ + + + | EXTERNAL LAB: | Routin | 11/18/2017 | | Results for this | | CREATININE | e | | | procedure are in the | | | | | | results section. | + +--------+ + + + | COMPREHENSIVE | Routin | 11/18/2017 | | Results for this | | METABOLIC PANEL | e | | | procedure are in the | | | | | | results section. | + +--------+ + + + documented in this encounter Results Comprehensive Metabolic Panel (11/18/2017) + +--------+ + + + | Component | Value | Ref Range | Performed | Pathologist | | | | | At | Signature | + +--------+ + + + | Anion Gap | 15 | 7 - 21 mmol/L | | | + +--------+ + + + | [place] PD | 24 (A) | 6 - 23 | | | + +--------+ + + + | GFR | 56 | | | | | ESTIMATE | | | | | | (REF) | | | | | + +--------+ + + + | BUN/Creatin | 19.5 | 6.0 - 28.6 | | | | ine Ratio | | | | | + +--------+ + + + | Globulin | 2.8 | 1.8 - 3.5 | | | + +--------+ + + + | Albumin/Talia | 1.3 | 1.1 - 2.4 | | | | bulin Ratio | | | | | + +--------+ + + + + + | Specimen | + + | Blood | + + External Lab: Glucose (11/18/2017) + +---------+ + + + | Component | Value | Ref Range | Performed | Pathologist | | | | | At | Signature | + +---------+ + + + | Glucose, | 118 (A) | 70 - 100 | EXTERNAL | | | External | | | LAB | | + +---------+ + + + + +---------+ + + | Performing | Address | City/State/Zipcode | Phone Number | | Organization | | | | + +---------+ + + | EXTERNAL LAB | | | | + +---------+ + + External Lab: ALT (11/18/2017) + +-------+ + + + | Component | Value | Ref Range | Performed | Pathologist | | | | | At | Signature | + +-------+ + + + | ALT, | 20 | 7 - 52 | EXTERNAL | | | External | | | LAB | | + +-------+ + + + + +---------+ + + | Performing | Address | City/State/Zipcode | Phone Number | | Organization | | | | + +---------+ + + | EXTERNAL LAB | | | | + +---------+ + + External Lab: AST (11/18/2017) + +-------+ + + + | Component | Value | Ref Range | Performed | Pathologist | | | | | At | Signature | + +-------+ + + + | AST, | 23 | 13 - 39 | EXTERNAL | | | External | | | LAB | | + +-------+ + + + + +---------+ + + | Performing | Address | City/State/Zipcode | Phone Number | | Organization | | | | + +---------+ + + | EXTERNAL LAB | | | | + +---------+ + + External Lab: Alkaline Phosphatase (11/18/2017) + +---------+ + + + | Component | Value | Ref Range | Performed | Pathologist | | | | | At | Signature | + +---------+ + + + | ALP, | 166 (A) | 31 - 120 | EXTERNAL | | | External | | | LAB | | + +---------+ + + + + +---------+ + + | Performing | Address | City/State/Zipcode | Phone Number | | Organization | | | | + +---------+ + + | EXTERNAL LAB | | | | + +---------+ + + External Lab: Bilirubin, Total (11/18/2017) + +-------+ + + + | Component | Value | Ref Range | Performed | Pathologist | | | | | At | Signature | + +-------+ + + + | Bilirubin, | 0.4 | 0 - 1.2 | EXTERNAL | | | Total, | | | LAB | | | External | | | | | + +-------+ + + + + +---------+ + + | Performing | Address | City/State/Zipcode | Phone Number | | Organization | | | | + +---------+ + + | EXTERNAL LAB | | | | + +---------+ + + External Lab: Albumin (11/18/2017) + +-------+ + + + | Component | Value | Ref Range | Performed | Pathologist | | | | | At | Signature | + +-------+ + + + | Albumin, | 3.5 | 3.5 - 5 | EXTERNAL | | | External | | | LAB | | + +-------+ + + + + +---------+ + + | Performing | Address | City/State/Zipcode | Phone Number | | Organization | | | | + +---------+ + + | EXTERNAL LAB | | | | + +---------+ + + External Lab: Protein, Total (11/18/2017) + +-------+ + + + | Component | Value | Ref Range | Performed | Pathologist | | | | | At | Signature | + +-------+ + + + | Protein, | 6.3 | 6 - 8 | EXTERNAL | | | Total, | | | LAB | | | External | | | | | + +-------+ + + + + +---------+ + + | Performing | Address | City/State/Zipcode | Phone Number | | Organization | | | | + +---------+ + + | EXTERNAL LAB | | | | + +---------+ + + External Lab: Calcium (11/18/2017) + +-------+ + + + | Component | Value | Ref Range | Performed | Pathologist | | | | | At | Signature | + +-------+ + + + | Calcium, | 9.0 | 8.4 - 10.2 | EXTERNAL | | | External | | | LAB | | + +-------+ + + + + +---------+ + + | Performing | Address | City/State/Zipcode | Phone Number | | Organization | | | | + +---------+ + + | EXTERNAL LAB | | | | + +---------+ + + External Lab: Carbon Dioxide (11/18/2017) + +-------+ + + + | Component | Value | Ref Range | Performed | Pathologist | | | | | At | Signature | + +-------+ + + + | Carbon | 25 | 19 - 31 | EXTERNAL | | | Dioxide, | | | LAB | | | External | | | | | + +-------+ + + + + +---------+ + + | Performing | Address | City/State/Zipcode | Phone Number | | Organization | | | | + +---------+ + + | EXTERNAL LAB | | | | + +---------+ + + External Lab: Chloride (11/18/2017) + +-------+ + + + | Component | Value | Ref Range | Performed | Pathologist | | | | | At | Signature | + +-------+ + + + | Chloride, | 100 | 95 - 112 | EXTERNAL | | | External | | | LAB | | + +-------+ + + + + +---------+ + + | Performing | Address | City/State/Zipcode | Phone Number | | Organization | | | | + +---------+ + + | EXTERNAL LAB | | | | + +---------+ + + External Lab: Potassium (11/18/2017) + +-------+ + + + | Component | Value | Ref Range | Performed | Pathologist | | | | | At | Signature | + +-------+ + + + | Potassium, | 4.2 | 3.6 - 5.1 | EXTERNAL | | | External | | | LAB | | + +-------+ + + + + +---------+ + + | Performing | Address | City/State/Zipcode | Phone Number | | Organization | | | | + +---------+ + + | EXTERNAL LAB | | | | + +---------+ + + External Lab: Sodium (11/18/2017) + +-------+ + + + | Component | Value | Ref Range | Performed | Pathologist | | | | | At | Signature | + +-------+ + + + | Sodium, | 136 | 132 - 143 | EXTERNAL | | | External | | | LAB | | + +-------+ + + + + +---------+ + + | Performing | Address | City/State/Zipcode | Phone Number | | Organization | | | | + +---------+ + + | EXTERNAL LAB | | | | + +---------+ + + External Lab: Creatinine (11/18/2017) + + + + + + | Component | Value | Ref Range | Performed | Pathologist | | | | | At | Signature | + + + + + + | Creatinine, | 1.23 (A) | 0.7 - 1.11 | EXTERNAL | | | External | | | LAB | | + + + + + + + + | Specimen | + + | Blood | + + + +---------+ + + | Performing | Address | City/State/Zipcode | Phone Number | | Organization | | | | + +---------+ + + | EXTERNAL LAB | | | | + +---------+ + + documented in this encounter Visit Diagnoses Not on filedocumented in this encounter"
--- OUTSIDE RECORDS SUMMARY | ~2019-11-20 | XMS | Encounter Summary ---
Demographics + + + | Address | [address] | | | [place] [address] | + + + | Home Phone | | + + + | Preferred Language | Unknown | + + + | Marital Status | | + + + | Christian Affiliation | Unknown | + + + | Race | Unknown | + + + | Ethnic Group | Unknown | + + + Author + + + | Author | [facility] | | | and Eduardana | + + + | Organization | [facility] | | | and Eduardana | [...] [place] | | | | | [id number] | | + + + + + Care Team Providers + +------+ + | Care Supervisor International Reservations Name | Role | Phone | + +------+ + | Carlos Alberto Galeas MD | PCP | | + +------+ + Encounter Details +--------+ + + + + | Date | Type | Department | Care Team | Description | +--------+ + + + + | 12/31/ | Hospital | [facility] | Sajan Hernandez, | Other closed | | 2017 - | Encounter | MED [facility] [address] | fracture of shaft of | | | | [place], | [address] | right femur with | | 01/17/ | | [place] [address] | [place] [address] | routine healing, | | 2017 | | [phone] | [phone] | subsequent encounter | | | | | | (Primary Dx); Acute | | | | | | diastolic heart | | | | | | failure (HCC); | | | | | | Anticoagulant | | | | | | long-term use; | | | | | | Atrial flutter, | | | | | | unspecified type | | | | | | (HCC); Closed | | | | | | fracture of neck of | | | | | | left femur with | | | | | | routine healing, | | | | | | subsequent | | | | | | encounter; | | | | | | Postoperative | | | | | | hemorrhagic shock, | | | | | | initial encounter; | | | | | | Benign non-nodular | | | | | | prostatic | | | | | | hyperplasia with | | | | | | lower urinary tract | | | | | | symptoms; Urinary | | | | | | retention due to | | | | | | benign prostatic | | | | | | hyperplasia; Closed | | | | | | fracture of neck of | | | | | | right femur with | | | | | | routine healing, | | | | | | subsequent | | | | | | encounter; Open | | | | | | wounds of multiple | | | | | | sites of hand, left, | | | | | | initial encounter; | | | | | | Open wounds of | | | | | | multiple sites of | | | | | | hand, right, initial | | | | | | encounter; Antalgic | | | | | | gait; Dehydration, | | | | | | mild; Orthostasis | +--------+ + + + + Social [...] + + + | Blood Pressure | 104/64 | 01/17/2017 9:22 AM | | | | | PDT | | + + + + + | Pulse | 100 | 01/17/2017 9:22 AM | | | | | PDT | | + + + + + | Temperature | 35.6 C (96.1 F) | 01/17/2017 7:51 AM | | | | | PDT | | + + + + + | Respiratory Rate | 18 | 01/17/2017 7:51 AM | | | | | PDT | | + + + + + | Oxygen Saturation | 95% | 01/17/2017 7:51 AM | | | | | PDT | | + + + + + | Inhaled Oxygen | - | - | | | Concentration | | | | + + + + + | Weight | 80.7 kg (177 lb 14.6 | 01/16/2017 9:00 PM | | | | oz) | PDT | | + + + + + | Height | 175.3 cm (5' 9") | 12/31/2016 3:53 PM | | | | | PDT | | + + + + + | Body Mass Index | 26.27 | 12/31/2016 3:53 PM | | | | | PDT [...] documented as of this encounter Discharge Summaries Deonte Staples MD - 01/17/2017 11:02 AM PDTFormatting of this note might be diff erent from the original. REHABILITATION DISCHARGE SUMMARY TEMPLATE Patient Identification: Deborah Thomason : [id number] Admit Date: 12/31/2016 Attending Provider: Sajan Hernandez MD Primary Care Physician: Carlos Alberto Galeas MD Impairment Group: Orthopedic Disorders 08.12 Status post bilateral hip fractures Etiologic Diagnosis: Right femur fx, Left peritrochanteric fx Discharge date and time: 01/17/17 Discharge Physician: Deonte Staples MD Hospital Problem List: Principal Problem: Femur fracture, left Active Problems: Atrial flutter Femur fracture, right Anticoagulant long-term use Acute diastolic heart failure Benign prostatic hyperplasia with lower urinary tract symptoms Urinary retention due to benign prostatic hyperplasia Dehydration, mild Orthostasis Consults: urology and internal medicine Physical Therapy Occupational Therapy Speech Therapy Social Work Significant Diagnostic Studies: Recent Results (from the past 360 hour(s)) XR Femur Right 2+Vw Narrative EXAM:XR FEMUR RIGHT 2+VW, XR LUMBAR SPINE 2 OR 3 VW, XR HIP LEFT 2-3 VIEWS CLINICAL HISTORY: follow up fracture. Back spasms. COMPARISON: 12/25/2016 hip and femur radiographs. FINDINGS: Right femur: There is a long antegrade intramedullary yulisa traversing a middle and distal one third, mildly displaced femoral fracture. There are intact distal and proximal locking screws. The fractures stable in alignment. There is evidence of healing at the fracture site. Left hip: Frontal view the pelvis. Frontal and frog-leg views of the left hip. There is an intramedullary yulisa and femoral nail transfixing an intertrochanteric fracture. The hardware is intact. Alignment is stable. There is subtle evidence of healing. Lumbar spine: Frontal and lateral views. There is mild dextroconvex scoliosis with the apex at the thoracolumbar junction. There appear to be 5 nonrib-bearing lumbar-type vertebral bodies. There is a mild superior endplate deformity at T12. Mild to moderate deformities of L1 and L2. Disc collapse at L5-S1. Diffuse demineralization. Diffuse degenerative changes. Atherosclerotic irregularity throughout the aorta. Possible aneurysmal dilatation of the distal aorta. There is a vascular stent in the right common iliac artery. IMPRESSION - Instrumented right femur fracture in stable alignment and showing evidence of healing. Instrumented left intratrochanteric fracture in stable alignment and showing evidence of healing. Compression deformities involving T12, L1, and L2. These are age indeterminate. They are mild and dspw-gu-llnslbrb deformities. Diffuse demineralization. Diffuse lumbar spondylosis. Possible aneurysmal dilatation of the distal abdominal aorta. Recommendation: Consider ultrasound of the aorta. Dictated and Signed by: Matthew Kwon MD Electronically signed: 01/16/2017 2:33 PM XR Hip Left 2-3 Views Narrative EXAM:XR FEMUR RIGHT 2+VW, XR LUMBAR SPINE 2 OR 3 VW, XR HIP LEFT 2-3 VIEWS CLINICAL HISTORY: follow up fracture. Back spasms. COMPARISON: 12/25/2016 hip and femur radiographs. FINDINGS: Right femur: There is a long antegrade intramedullary yulisa traversing a middle and distal one third, mildly displaced femoral fracture. There are intact distal and proximal locking screws. The fractures stable in alignment. There is evidence of healing at the fracture site. Left hip: Frontal view the pelvis. Frontal and frog-leg views of the left hip. There is an intramedullary yulisa and femoral nail transfixing an intertrochanteric fracture. The hardware is intact. Alignment is stable. There is subtle evidence of healing. Lumbar spine: Frontal and lateral views. There is mild dextroconvex scoliosis with the apex at the thoracolumbar junction. There appear to be 5 nonrib-bearing lumbar-type vertebral bodies. There is a mild superior endplate deformity at T12. Mild to moderate deformities of L1 and L2. Disc collapse at L5-S1. Diffuse demineralization. Diffuse degenerative changes. Atherosclerotic irregularity throughout the aorta. Possible aneurysmal dilatation of the distal aorta. There is a vascular stent in the right common iliac artery. IMPRESSION - Instrumented right femur fracture in stable alignment and showing evidence of healing. Instrumented left intratrochanteric fracture in stable alignment and showing evidence of healing. Compression deformities involving T12, L1, and L2. These are age indeterminate. They are mild and nwtq-le-ggxkuach deformities. Diffuse demineralization. Diffuse lumbar spondylosis. Possible aneurysmal dilatation of the distal abdominal aorta. Recommendation: Consider ultrasound of the aorta. Dictated and Signed by: Matthew Kwon MD Electronically signed: 01/16/2017 2:33 PM XR Lumbar Spine 2 or 3 Vw Narrative EXAM:XR FEMUR RIGHT 2+VW, XR LUMBAR SPINE 2 OR 3 VW, XR HIP LEFT 2-3 VIEWS CLINICAL HISTORY: follow up fracture. Back spasms. COMPARISON: 12/25/2016 hip and femur radiographs. FINDINGS: Right femur: There is a long antegrade intramedullary yulisa traversing a middle and distal one third, mildly displaced femoral fracture. There are intact distal and proximal locking screws. The fractures stable in alignment. There is evidence of healing at the fracture site. Left hip: Frontal view the pelvis. Frontal and frog-leg views of the left hip. There is an intramedullary yulisa and femoral nail transfixing an intertrochanteric fracture. The hardware is intact. Alignment is stable. There is subtle evidence of healing. Lumbar spine: Frontal and lateral views. There is mild dextroconvex scoliosis with the apex at the thoracolumbar junction. There appear to be 5 nonrib-bearing lumbar-type vertebral bodies. There is a mild superior endplate deformity at T12. Mild to moderate deformities of L1 and L2. Disc collapse at L5-S1. Diffuse demineralization. Diffuse degenerative changes. Atherosclerotic irregularity throughout the aorta. Possible aneurysmal dilatation of the distal aorta. There is a vascular stent in the right common iliac artery. IMPRESSION - Instrumented right femur fracture in stable alignment and showing evidence of healing. Instrumented left intratrochanteric fracture in stable alignment and showing evidence of healing. Compression deformities involving T12, L1, and L2. These are age indeterminate. They are mild and nzif-er-rpmciqxk deformities. Diffuse demineralization. Diffuse lumbar spondylosis. Possible aneurysmal dilatation of the distal abdominal aorta. Recommendation: Consider ultrasound of the aorta. Dictated and Signed by: Matthew Kwon MD Electronically signed: 01/16/2017 2:33 PM Treatments: therapies: PT, OT, Nursing and intensive inpatient rehabilitation ADMISSION HPI: Patient reports that over the past few years he has had a decline in balance and has sustai talha multiple falls. On 12/18 he stumbled backwards when walking and home and after trying t o recover by taking a few steps back he landed hard on his pelvis. He noted immediate pain in both legs, so his called EMS. Patient lives in [place], [place] and was initially ta yasir to [facility] in [place] where he was found to have a right mid-shaft femoral and l eft intertrochanteric femur fractures. There was no on-call ortho so he was transferred to [address] for definitive treatment. On 12/19 he was taken to the OR by Dr. Mancuso for bilateral ORIF's. He tolerated the proce dure well Admission has been complicated by hemorragic shock, now s/p IVF and RBC's, respiratory fail ure 2/2 volume overload 2/2 likely DHF. Patient has also had multiple episodes of symptomat ic orthostasis, which resolved after he was started on midodrine. Patient has also has mult iple elevated PVR's after the souza was removed, per nursing there has been no resistance of pain reported with intermittent cath. SOCIAL HISTORY: reports that he has never smoked. He has never used smokeless tobacco. He reports that he drinks about 0.6 oz of alcohol per week . He reports that he does not use drugs. 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 Approx [id number] Femoral artery bypass and Hx of stent FEMUR FRACTURE SURGERY Right 12/19/2016 Procedure: ORIF IM RODDING FEMORAL ANTEGRADE; Surgeon: Lambert Mancuso MD; Location: [facility] MAIN OR FEMUR FRACTURE SURGERY Left 12/19/2016 Procedure: ORIF IM RODDING FEMORAL TROCHANTERIC NAIL; Surgeon: Lambert Mancuso MD; Locati on: [facility] MAIN OR Right [facility] ALLERGIES: Allergies Allergen Reactions Lisinopril Not Noted Olmesartan Not Noted Penicillins Not Noted Lips swell eyes swell shut and pruritis Intolerance Allergen Reactions Naproxen Other (See Comments) States "put me in the hospital with kidney failure" DISCHARGE PHYSICAL EXAMINATION: VS: BP 104/64 | Pulse 100 | Temp 35.6 C (96.1 F) (Oral) | Resp 18 | Ht 1.753 m (5' 9") | Wt 80.7 kg (177 lb 14.6 oz) | SpO2 95% | BMI 26.27 kg/m GENERAL: NAD, well-groomed and nourished. Sitting in [facility] PSYCHIATRIC: pleasant, mood ok HEAD: NCAT. Scalp alopecia. EYES: pupils equal and conjugate, EOMI, anicteric sclera EARS: no blood in external auditory canal NOSE: no discharge MOUTH/THROAT: MMM, OP clear. Dentition is good NECK: supple, no masses CARDIOVASCULAR: skin warm and dry, 2+ radial pulses RESPIRATORY: nonlabored, breathing comfortably on room air GASTROINTESTINAL: soft, NT, ND, no hsm. +bowel sounds GENITOURINARY:souza out, does IC prn SKIN: chronic dermatitis, left shoulder, left upper arm wounds, coccyx with mild irritation . MUSCULOSKELETAL: Left hip and knee 4/5, rest 4+, NEUROLOGIC EXAM: Mental Status:OX3 General/Attention: alert attentive Speech: fluent with normal comprehension, no dysarthria, dysphonia, or apraxia (test with i ncreasing number of syllables) Cognition: LOC: Alert Oriented to: Self, Name of hospital, City, Date, Month, Year, Day Cranial nerves: CNI: not tested CNII: no visual deficits detected, afferent pupil response to light intact CNIII, IV, : PERRLA, EOMI CNV: intact sensation in all three divisions bilaterally CNVII: symmetric facial expressions CNVIII: gross hearing intact to finger rub CN IX and X: palate elevates symmetrically, uvula midline CN XI: symmetric shoulder shrug CN XII: tongue protrudes midline without fasiculations or deviation M Sensory function: decreased in feet, not new. LABORATORY: Recent Results (from the past 48 hour(s)) Protime INR Result Value Ref Range PROTIME 31.5 (H) 11.3 - 13.9 seconds INR 2.94 (H) 0.90 - 1.10 Basic Metabolic Panel Result Value Ref Range NA 131 (L) 136 - 149 mmol/L K 4.7 3.5 - 5.1 mmol/L CL 100 98 - 109 mmol/L CO2 25 24 - 31 mmol/L ANION GAP 6 3 - 16 mmol/L GLUCOSE 104 70 - 109 mg/dL BUN 26 (H) 7 - 18 mg/dL Creatinine, Serum/Plasma 1.30 0.60 - 1.30 mg/dL eGFR if not 53 (L) >=60 mL/min/1.73m2 CALCIUM 8.9 8.3 - 10.5 mg/dL BUN/CREA 20.0 CBC with Differential Result Value Ref Range WBC 8.5 4.0 - 11.0 K/uL RBC 3.77 (L) 4.30 - 5.70 M/uL Hgb 11.1 (L) 13.5 - 18.0 g/dL Hct 33.5 (L) 40.0 - 51.0 % MCV 88.8 83.0 - 101.0 fL MCH 29.4 28.0 - 35.0 pg MCHC 33.0 32.0 - 36.0 g/dL RDW-CV 17.0 (H) <15.0 % Platelet Count 239 140 - 440 K/uL MPV 8.1 fL % Neutrophils 79.2 45.0 - 82.0 % % Lymphocytes 4.0 (L) 20.0 - 45.0 % % Monocytes 8.7 4.0 - 12.0 % % Eosinophils 7.7 (H) 0.0 - 5.0 % % Basophils 0.4 0.0 - 1.0 % Absolute Neutrophils 6.70 1.80 - 8.50 K/uL Absolute Lymphocytes 0.30 (L) 0.60 - 3.20 K/uL Absolute Monocytes 0.70 0.00 - 1.00 K/uL Absolute Eosinophils 0.70 (H) 0.00 - 0.40 K/uL Absolute Basophils 0.00 0.00 - 0.10 K/uL Protime INR Result Value Ref Range PROTIME 30.5 (H) 11.3 - 13.9 seconds INR 2.82 (H) 0.90 - 1.10 Basic Metabolic Panel Result Value Ref Range NA 131 (L) 136 - 149 mmol/L K 3.7 3.5 - 5.1 mmol/L CL 99 98 - 109 mmol/L CO2 25 24 - 31 mmol/L ANION GAP 7 3 - 16 mmol/L GLUCOSE 80 70 - 109 mg/dL BUN 23 (H) 7 - 18 mg/dL Creatinine, Serum/Plasma 1.20 0.60 - 1.30 mg/dL eGFR if not 58 (L) >=60 mL/min/1.73m2 CALCIUM 8.8 8.3 - 10.5 mg/dL BUN/CREA 19.2 Extra Lavender Top Tube Result Value Ref Range Extra Lavender Top Tube Done Hospital Course: Overall the patient did very well and was able to be discharged home with HH PT and Nursing. See below for details. #CVS - h/o a. Fib w/ RVR - stable but BP's continue to be on low side despite midodrine alec ng added and d/c home on it. Patient reports he has similar issues with BP at home and ofte n doesn't take atenolol due to low blood pressures -Cont metoprolol 12.5mg qday, hold for SBP<90 -Cont amiodarone -Cont warfarin, H/H has been stable, INR now therapeutic at 2.94 -Cont atorvastatin -Cont midodrine TID, started by hospitalist, for persistently low BP' s #Mild dehydration: BUN 23 on discharge, improved from 26 and bp upper 60's stystolic at alka es, now improved, continue pushing fluids, asymptomatic generally. #Hand and shoulder wounds: related to underlying dermatitis, hands bandaged, neosporin with good benefit. Dressing changes to left shoulder, UE q2 days, sent home with dressing, plus HH set up. No sign infection. #Bilateral femur fractures - pain stable, uses about 1 oxycodone per day -WBAT BLE's -Cont PRN methocarbamol and oxycodone for pain #Controlled fall, low impact 01/09 - back spasms with increased gait, so checked Lumbar Xray 01-15 which showed T12, L1, L2 mild to moderate compression fractures, but no pain this area , so probably old. Most pain at L5-S1 area, so probably back spasm from sprain. #Possible dilation of distal aorta: Noted on Lumbar Xray, radiology recommends an ultrasou nd of distal aorta to check for AAA. #Resp - resolved hypoxic respiratory failure likely 2/2 volume overload -Daily weights, CVS as above #Delerium - resolved, in setting of bilateral femur fractures -Avoid diphenhydramine, benzodiazepines, scopolamine, and metoclopram manuel. Limit MANAGEMENT PLANNER active medications using lowest effective dose. -Implement environmental modifications (window bed, maintain well-lit room during day, minimize nighttime disturbance, and keep calendars and clock visible). -OOB to chair TID with meals if able. #Urinary retention - trial souza out 01/14, doing ok and resolving, on max doses tamsulosin, did IC training for now, but is able to void much of the time, so only probably need tempor gilbert IC and so set up for catheters for home use and doing training. Following recommendati ons of Dr. Webb, urology consult -Cont tamsulosin 0.8mg -IC training done and he did one himself before d/c. Sent home with 5 cathet ers, lubricant, and nursing f/u. Functional Status: Current: FIM BladderScore: 5 FIM Bowel Score: 6 FIM Bed/Chair/Wheelchair Score: 6 FIM Toilet Transfer Score: 4 FIM Tub/Shower Transfer Score: 5 FIM Walk Score: 6 FIM Distance Walked(feet): 50 feet FIM Wheelchair Score: 1 FIM Stairs Score :5 FIM Eating Score: 6 FIM Grooming Score: 6 FIM Bathing Score: 5 FIM Dressing Upper Body Score: 6 FIM Dressing Lower Body Score: 6 FIM Toileting Score: 4 DISCHARGE MEDICATIONS: Discharge Medications New Medications Details methocarbamol 500 mg tablet Take 2 tablets by mouth every 6 hours as needed (muscle spasm). aka: ROBAXIN metoprolol tartrate 25 mg tablet Take 0.5 tablets by mouth Daily. Hold if systolic (top number) blood pressure less than 90 . aka: LOPRESSOR midodrine 10 MG tablet Take 1 tablet by mouth 3 times daily. aka: PROAMATINE oxyCODONE 5 mg tablet Take 1-2 tablets by mouth every 4 hours as needed for Pain. aka: ROXICODONE tamsulosin 0.4 mg Caps Take 2 capsules by mouth daily (after breakfast). aka: FLOMAX Changed Medications Details warfarin 2.5 mg tablet Take 1 tablet by mouth daily (after dinner). What changed: medication strength how much to take aka: COUMADIN Unchanged Medications Details amiodarone 200 mg tablet Take 200 mg by mouth Daily. aka: PACERONE ascorbic acid 500 mg tablet Take 500 mg by mouth Daily. aka: VITAMIN C atorvaSTATin 20 mg tablet Take 20 mg by mouth nightly. aka: LIPITOR CALCIUM 600+D 600 mg-200 units per tablet Generic drug: calcium-vitamin D Take 1 tablet by mouth 2 times daily. CENTRUM SILVER Tabs Take 1 tablet by mouth Daily. tocopherol 400 units capsule Take 400 Units by mouth Daily. aka: VITAMIN E Discontinued Medications amLODIPine 5 mg tablet aka: NORVASC atenolol 25 mg tablet aka: TENORMIN Current Discharge Medication List START taking these medications Medication Dose Last Dose Taken; methocarbamol (ROBAXIN) 500 mg tablet 1,000 mg Take 2 tablets by mouth every 6 hours as needed (muscle spasm). Quantity: 100 tablet Refills: 1 Start date: 01/17/2017 metoprolol tartrate (LOPRESSOR) 25 mg tablet 12.5 mg Take 0.5 tablets by mouth Daily. Hold if systolic (top number) blood pressure less than 90 . Quantity: 30 tablet Refills: 1 Start date: 01/17/2017 midodrine (PROAMATINE) 10 MG tablet 10 mg Take 1 tablet by mouth 3 times daily. Quantity: 90 tablet Refills: 1 Start date: 01/17/2017 Associated Diagnoses: Orthostasis oxyCODONE (ROXICODONE) 5 mg tablet 5-10 mg Take 1-2 tablets by mouth every 4 hours as needed for Pain. Quantity: 40 tablet Refills: 0 Start date: 01/17/2017 tamsulosin (FLOMAX) 0.4 mg CAPS 0.8 mg Take 2 capsules by mouth daily (after breakfast). Quantity: 30 capsule Refills: 1 Start date: 01/17/2017 CONTINUE these medications which have CHANGED or have been refilled with a NEW PRESCRIPTIO N Medication Dose Last Dose Taken; warfarin (COUMADIN) 2.5 mg tablet 2.5 mg Take 1 tablet by mouth daily (after dinner). Quantity: 30 tablet Refills: 0 Start date: 01/17/2017 CONTINUE these medications which have NOT CHANGED Medication Dose Last Dose Taken; amiodarone (PACERONE) 200 mg tablet 200 mg Take 200 mg by mouth Daily. ascorbic acid (VITAMIN C) 500 mg tablet 500 mg Take 500 mg by mouth Daily. atorvaSTATin (LIPITOR) 20 mg tablet 20 mg Take 20 mg by mouth nightly. calcium-vitamin D (CALCIUM 600+D) 600 mg-200 units per tablet 1 tablet Take 1 tablet by mouth 2 times daily. Multiple Vitamins-Minerals (CENTRUM SILVER) TABS 1 tablet Take 1 tablet by mouth Daily. tocopherol (VITAMIN E) 400 units capsule 400 Units Take 400 Units by mouth Daily. PLAN FOR NARCOTIC MEDICATION REFILLS: f/u Dr. Galeas, but doubt he will need refills as h e's only using about 1/ day DISPOSITION: home with FOLLOW UP: Dr. FUNMILAYO Galeas one week to check bp, how bladder is doing, plus consider ultrasound to dis jeremi aorta for possible dilitation. F/u Dr. Mancsuo per previous appointment DISCHARGE INSTRUCTIONS: nursing and PT, plus f/u Dr. Galeas. I spent >30 minutes face to face with the patient, with over 50% spent in counseling and/or coordination of care regarding low bp this morning and yesterday, plus wounds, dehydration, and d/c planning and set up. Signed: Placido Staples MD 01/17/2017 11:03 CC: Dr. Kaylene Galeas Portions of this chart may have been created with [employer] voice recognition software. Occasi onal wrong-word or sound-alike substitutions may have occurred due to the inherent ness itations of voice recognition software. Please read the chart carefully and recognize, using context, where these substitutions have occurred documented i n this encounter Medications at Time of Discharge [...] documented as of this encounter Progress Notes Ora Aranda, PharmD - 01/17/2017 8:32 AM PDT WARFARIN PER PHARMACY PROTOCOL: Subjective/Objective: Deborah Thomason is a 86 y.o. male admitted on 12/31/2016 for orthopedic surgery secondar y to femoral fracture. Patient has a past medical history of Atrial flutter (HCC) ( 7); CVA (cerebral vascular accident) ([facility]) 2012 (2012); Mycosis fungoides ([facility]) Dx [facility] approx 1999; and Urinary retention. Patient is receiving warfarin for thromboprophyla xis postop and also for atrial flutter. Surgery date: 12/19/2016 ORIF IM rodding femoral Dr. Mancuso Goal INR: 2-3 Home dose: 3mg daily Drug Interactions:Amiodarone (HAT RENOVATOR med) Sensitizers:Age, renal fun Recent Labs Lab 01/17/17 0636 01/16/17 0934 01/16/17 0638 01/15/17 0617 CREA 1.20 1.30 -- -- HGB -- 11.1* -- -- HCT -- 33.5* -- -- PLT -- 239 -- -- INR 2.82* -- 2.94* 2.77* Date 12/19 12/20 12/21 12/22 12/23 12/24 12/23-12/31 01/01 01/02 01/03 01/04 01/05 01/06 Hgb 10.9 8.7 9.1 7.8 7.7 7.2 - 11.1 - 10.3 - - Hct 33.4 26.5 26.7 23.4 23.1 21.5 - 32.9 - 32.2 - - Platelets 187 158 144 160 195 209 - 441 - 424 - - INR 1.78 1.67 1.82 2.07 2.18 2.28 - 1.15 1.13 1.29 1.32 1.55 Warfarin Dose 3 mg 3 mg 4 mg 3 mg None hold held 3mg 3 mg 5 mg 4 mg 4 mg 4 mg Date 01/07 01/08 01/09 01/10 01/11 01/12 01/13 01/14 01/15 01/16 01/17 Hgb - - - 11.5 - - - - 11.1 - Hct - - - 34.1 - - - - 33.5 - Platelets - - - 347 - - - - 239 - INR 1.65 1.9 2.14 2.63 3.08 3.4 3.02 2.74 2.77 2.94 2.82 Warfarin Dose 5 mg 5 mg 5 mg 3mg 1 mg hold hold 2.5 mg 2.5 mg 1mg 2mg Assessment: INR is therapeutic (2-3), for atrial flutter. Was therapeutic on home regimen of 3 mg daily for aflutter/past cva Pt is receiving amiodarone (banquet captain med) 01/13 good po intake. Plan: Warfarin 2mg x 1. Am labs: INR Warfarin education received No; HAT RENOVATOR Will monitor daily Warfarin Dosing Nomogram Warfarin Dosing Expectations Per P&T-approved Electronically signed by: Ora Aranda RPH 01/17/2017 8:32 idayanara, Carine Moncada RN - 01/16/2017 6:00 PM PDTVerbalized home self-cah pt was able to verbalize steps of self-cath erization And when to self-catherize pt will preform catherization before bed with rn to as sist ar onOra PharmD - 01/16/2017 11:33 AM PDT WARFARIN PER PHARMACY PROTOCOL: Subjective/Objective: Deborah Thomason is a 86 y.o. male admitted on 12/31/2016 for orthopedic surgery secondar y to femoral fracture. 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 Patient is receiving warfarin for thromboprophyla xis postop and also for atrial flutter. Surgery date: 12/19/2016 ORIF IM rodding femoral Dr. Mancuso Goal INR: 2-3 Home dose: 3mg daily Drug Interactions:Amiodarone (HAT RENOVATOR med) Sensitizers:Age, renal fun Recent Labs Lab 01/16/17 0934 01/16/17 0638 01/15/17 0617 01/14/17 0626 01/10/17 0635 CREA 1.30 -- -- -- -- 1.31* HGB 11.1* -- -- -- -- 11.5* HCT 33.5* -- -- -- -- 34.1* PLT 239 -- -- -- -- 347 INR -- 2.94* 2.77* 2.74* < > 2.63* < > = values in this interval not displayed. Date 12/19 12/20 12/21 12/22 12/23 12/24 12/23-12/31 01/01 01/02 01/03 01/04 01/05 01/06 Hgb 10.9 8.7 9.1 7.8 7.7 7.2 - 11.1 - 10.3 - - Hct 33.4 26.5 26.7 23.4 23.1 21.5 - 32.9 - 32.2 - - Platelets 187 158 144 160 195 209 - 441 - 424 - - INR 1.78 1.67 1.82 2.07 2.18 2.28 - 1.15 1.13 1.29 1.32 1.55 Warfarin Dose 3 mg 3 mg 4 mg 3 mg None hold held 3mg 3 mg 5 mg 4 mg 4 mg 4 mg Date 01/07 01/08 01/09 01/10 01/11 01/12 01/13 01/14 01/15 01/16 Hgb - - - 11.5 - - - - 11.1 Hct - - - 34.1 - - - - 33.5 Platelets - - - 347 - - - - 239 INR 1.65 1.9 2.14 2.63 3.08 3.4 3.02 2.74 2.77 2.94 Warfarin Dose 5 mg 5 mg 5 mg 3mg 1 mg hold hold 2.5 mg 2.5 mg 1mg Assessment: INR is therapeutic (2-3), for atrial flutter. Was therapeutic on home regimen of 3 mg daily for aflutter/past cva Pt is receiving amiodarone (banquet captain med) 01/13 good po intake. Plan: Warfarin 1mg x 1. Am labs: INR Warfarin education received No; HAT RENOVATOR Will monitor daily Warfarin Dosing Nomogram Warfarin Dosing Expectations Per P&T-approved Electronically signed by: Ora Aranda Jan 01/16/2017 11:33 [facility] Center[facility] MD - 01/16/2017 10:58 AM PDTFormatting of this note might be different from the orig inal. Deborah Thomason is a 86 y.o. male patient. 1. Other closed fracture of shaft of right femur with routine healing, subsequent encounter 2. Acute diastolic heart failure (HCC) 3. Anticoagulant long-term use 4. Atrial flutter, unspecified type (HCC) 5. Closed fracture of neck of left femur with routine healing, subsequent encounter 6. Postoperative hemorrhagic shock, initial encounter 7. Benign non-nodular prostatic hyperplasia with lower urinary tract symptoms 8. Urinary retention due to benign prostatic hyperplasia 9. Closed fracture of neck of right femur with routine healing, subsequent encounter 10. Open wounds of multiple sites of hand, left, initial encounter 11. Open wounds of multiple sites of hand, right, initial encounter 12. Antalgic gait [id number] Rehabilitation Medicine Daily Progress Note Date: 01/16/17 ID/CC: Mr. Thomason is a 86-year-old man with a history of a fib admitted 12/18/16 after a GLF resulti ng in right mid-shaft femoral and left intertrochanteric femur fractures resulting in impair ed mobility, transfers, and self-care. Interval history: Patient had severe right lower back spasms yesterday after excessive gait, better today, bu t still increased, so I've ordered back Xrays d/t his fall on his buttocks and continue bp; patient aware. He also has new wounds on his hands from his walker/dermatitis, so platform walker ordered. No new weakness/numbness. He is getting a new hand rail for stairs into ho id as current rails are too wide for him, he thinks this can be done by this week. Souza out 01/14, still having problems voiding, so doing IC in mean time as per Dr. Webb's consult. IC training started today, as he needed IC earlier. On .8mg flomax. Nursing f ollowing his bladder volume and will do IC when volume >600 cc and can't void. Last was 250 cc. BP also lower today, 68 systolic, but asymptomatic, so I checked bmp and BUN up to 26, so p ushing fluids, recheck BUN tomorrow. BP meds held this morning. Review of Systems - Constitutional - denies fevers/chills, denies fatigue Eyes - denies diplopia, denies double vision ENT denies sore throat, denies swallowing difficulty Card - denies CP, denies palpitations Pulm - denies dyspnea, cough, PND Abd - denies n/v, denies diarrhea/constipation Vascular - denies swelling, denies cold extremities Neuro -bilateral LE weakness 2/2 fractures MSK - stable bilateral leg pain Endocrine - denies heat/cold intolerance Skin - denies open sores Psych - denies depression, anxiety - Urinary retention, history of BPH All denies new rash, denies pruritis, but new hand wounds Hematologic- denies easy bruising or bleeding, denies weight loss Problem List Patient Active Problem List Diagnosis Atrial flutter Femur fracture, left Femur fracture, right Anticoagulant long-term use Acute diastolic heart failure Acute respiratory failure with hypoxia Atrial flutter with rapid ventricular response Postoperative hemorrhagic shock, initial encounter Elevated INR Delirium Benign prostatic hyperplasia with lower urinary tract symptoms Urinary retention due to benign prostatic hyperplasia Current Meds: Current Facility-Administered Medications: aluminum & magnesium hydroxide-simethicone (MAALOX PLUS REGULAR STRENGTH) 200-200-20 m g/5 mL suspension 30 mL, 30 mL, Oral, Q4H PRN, Sajan Hernandez MD amiodarone (PACERONE) tablet 200 mg, 200 mg, Oral, Daily, Sajan Hernandez MD, 200 mg at 01/16/17 08 atorvaSTATin (LIPITOR) tablet 20 mg, 20 mg, Oral, Nightly, Sajan Hernandez MD, 20 mg at 01/15/172111 bisacodyl (DULCOLAX) suppository 10 mg, 10 mg, Rectal, Daily PRN, Sajan Hernandez MD calcium carbonate (TUMS) chewable tablet 1,000 mg, 1,000 mg, Oral, Q8H PRN, Sajan Hernandez MD docusate sodium (COLACE) capsule 100 mg, 100 mg, Oral, BID PRN, Sajan Hernandez MD , 100 mg at 01/12/172045 lidocaine (XYLOCAINE) 2% jelly (uro-jet), , Urethral, 4x Daily PRN, Sajan Hernandez MD methocarbamol (ROBAXIN) tablet 1,000 mg, 1,000 mg, Oral, Q6H PRN, Sajan Hernandez MD, 1,000 mg at 01/15/17 1858 metoprolol tartrate (LOPRESSOR) tablet 12.5 mg, 12.5 mg, Oral, Daily, Sajan cabrera MD, 12.5 mg at 01/15/17 08 midodrine (PROAMATINE) tablet 10 mg, 10 mg, Oral, TID Early, Sajan Hernandez MD, 1 0 mg at 01/16/17 0607 czrazasp-carszjvjz-bpenklbtlc (NEOSPORIN) ointment, , Topical, TID, Deonte sow MD ondansetron (ZOFRAN ODT) disintegrating tablet 4 mg, 4 mg, Oral, Q6H PRN, Sajan flores MD oxyCODONE (ROXICODONE) tablet 5-10 mg, 5-10 mg, Oral, Q4H PRN, Sajan Hernandez MD, 5 mg at 01/15/17 1257 polyethylene glycol (MIRALAX) powder 17 g, 17 g, Oral, Daily PRN, Sajan Hernandez MD senna (SENOKOT) tablet 8.6 mg, 8.6 mg, Oral, BID PRN, Sajan Hernandez MD, 8.6 mg a t 01/16/17 0821 simethicone (MYLICON) chewable tablet 80 mg, 80 mg, Oral, 4x Daily PRN, Sajan decker MD tamsulosin (FLOMAX) capsule 0.8 mg, 0.8 mg, Oral, Daily after breakfast, Sajan pereira MD, 0.8 mg at 01/16/17 0821 traMADol (ULTRAM) tablet 25 mg, 25 mg, Oral, BID, Sajan Hernandez MD, 25 mg at 08 warfarin (COUMADIN) tablet 2.5 mg, 2.5 mg, Oral, Daily - Warfarin, Quintin Moore mD, 2.5 mg at 01/15/17 1758 warfarin per pharmacy, , Other, Pharmacy Consult, Sajan Hernandez MD zolpidem (AMBIEN) tablet 5 mg, 5 mg, Oral, Nightly PRN, Deonte Staples MD Allergies: Allergies Allergen Reactions Lisinopril Not Noted Olmesartan Not Noted Penicillins Not Noted Lips swell eyes swell shut and pruritis Intolerance No active intolerances/contraindications Physical Exam: BP 98/52 | Pulse 88 | Temp 35.7 C (96.3 F) (Oral) | Resp 18 | Ht 1.753 m (5' 9") | Wt 80.6 kg (177 lb 11.1 oz) | SpO2 95% | BMI 26.24 kg/m Gen: AOx3, sitting in bed, NAD CVS: irregular irregular, normal rate, 60's, no m/r/g Resp: CTAB, no wheeze, crackles, or rhonchi Abd: Non-distended, non-tender, +BS MSK: no pain with pelvic rock or pelvic compression, no pain with right hip internal rotati on, mild (stable pain) with left hip internal rotation, normal external rotation for both si sabiha Neuro: right HF 4+/5, KE 4+/5, no numbness in femoral nerve distribution Right palm 2cm and 4cm crack, no bleeding, Left hand with 2cm callus that is flaking off an d raw skin under, but no bleeding. Labs: Recent Results (from the past 48 hour(s)) Protime INR Result Value Ref Range PROTIME 30.1 (H) 11.3 - 13.9 seconds INR 2.77 (H) 0.90 - 1.10 Protime INR Result Value Ref Range PROTIME 31.5 (H) 11.3 - 13.9 seconds INR 2.94 (H) 0.90 - 1.10 Basic Metabolic Panel Result Value Ref Range NA 131 (L) 136 - 149 mmol/L K 4.7 3.5 - 5.1 mmol/L CL 100 98 - 109 mmol/L CO2 25 24 - 31 mmol/L ANION GAP 6 3 - 16 mmol/L GLUCOSE 104 70 - 109 mg/dL BUN 26 (H) 7 - 18 mg/dL Creatinine, Serum/Plasma 1.30 0.60 - 1.30 mg/dL eGFR if not 53 (L) >=60 mL/min/1.73m2 CALCIUM 8.9 8.3 - 10.5 mg/dL BUN/CREA 20.0 CBC with Differential Result Value Ref Range WBC 8.5 4.0 - 11.0 K/uL RBC 3.77 (L) 4.30 - 5.70 M/uL Hgb 11.1 (L) 13.5 - 18.0 g/dL Hct 33.5 (L) 40.0 - 51.0 % MCV 88.8 83.0 - 101.0 fL MCH 29.4 28.0 - 35.0 pg MCHC 33.0 32.0 - 36.0 g/dL RDW-CV 17.0 (H) <15.0 % Platelet Count 239 140 - 440 K/uL MPV 8.1 fL % Neutrophils 79.2 45.0 - 82.0 % % Lymphocytes 4.0 (L) 20.0 - 45.0 % % Monocytes 8.7 4.0 - 12.0 % % Eosinophils 7.7 (H) 0.0 - 5.0 % % Basophils 0.4 0.0 - 1.0 % Absolute Neutrophils 6.70 1.80 - 8.50 K/uL Absolute Lymphocytes 0.30 (L) 0.60 - 3.20 K/uL Absolute Monocytes 0.70 0.00 - 1.00 K/uL Absolute Eosinophils 0.70 (H) 0.00 - 0.40 K/uL Absolute Basophils 0.00 0.00 - 0.10 K/uL Most recent FIM scores: Report Date 01/16/2017 FIM BladderScore: 1 FIM Bowel Score: 6 FIM Bed/Chair/Wheelchair Score: 4 FIM Toilet Transfer Score: 4 FIM Tub/Shower Transfer Score: 5 FIM Walk Score: 2 FIM Distance Walked(feet): 50 feet FIM Wheelchair Score: 1 FIM Stairs Score :2 FIM Eating Score: 6 FIM Grooming Score: 5 FIM Bathing Score: 5 FIM Dressing Upper Body Score: 5 FIM Dressing Lower Body Score: 4 FIM Toileting Score: 4 Assessment/Plan: Mr. Thomason is a 86-year-old man with a history of a fib admitted 12/18/16 after a GLF resulti ng in right mid-shaft femoral and left intertrochanteric femur fractures resulting in impair ed mobility, transfers, and self-care. Pt now has deficits in coordination, ambulation, st rength, ADLs, and IADLs. Patients exam also consistent with a moderate peripheral neuropath y, which likely explains the progressively impaired balance the past few years. Patient has multiple co-morbidities, and is medically complex requiring 24hr nursing and MD care but is safe to continue therapies. # Rehabilitation - The patient will receive the following therapies: -- PT: impairments in gait, transfers, bed mobility, ambulation, ROM, strengthening, endura nce. -- OT: impairments in ADLs and iADLs, ROM, strengthening. -- SW: discharge planning #CVS - h/o a. Fib w/ RVR - stable but BP's continue to be on low side despite midodrine. P ho reports he has similar issues with BP at home and often doesn't take atenolol due to low blood pressures -Cont metoprolol 12.5mg qday, hold for SBP<90 -Cont amiodarone -Cont warfarin, H/H has been stable, INR now therapeutic at 2.77 -Cont atorvastatin -Cont midodrine TID, started by hospitalist, for persistently low BP's #Mild dehydration: BUN 26 and bp 68 stystolic, now improved, pushing fluids, asymptomatic s o far, labs tomorrow #Hand wounds: related to underlying dermatitis, platform walker ordered. No sign infection , but neosporin ordered. #Bilateral femur fractures - pain stable -WBAT BLE's -Cont PRN methocarbamol and oxycodone for pain, baclofen on limited prn basis -Responded well to baclofen, but not ordered as PRN 2/2 CKD don't want him to get too much of this daily #Controlled fall, low impact 01/09 - back spasms again yesterday, so checking Lumbar Xray to r/o compression fracture. Missed some PT yesterday because of bp. #Resp - resolved hypoxic respiratory failure likely 2/2 volume overload -Daily weights, CVS as above #Delerium - improving, in setting of bilateral femur fractures -Avoid diphenhydramine, benzodiazepines, scopolamine, and metoclopramide. Limit MANAGEMENT PLANNER active medications using lowest effective dose. -Implement environmental modifications (window bed, maintain well-lit room during day, min imize nighttime disturbance, and keep calendars and clock visible). -OOB to chair TID with meals if able. #Urinary retention - trial souza out 01/14, on max doses tamsulosin, doing IC training for n ow, but is able to void much of the time, so will only probably need temporary IC and so deneen moncada set up for catheters for home use and doing training. -Cont tamsulosin 0.8mg -IC training #DVT prophylaxis: -see CVS above #Insomnia: Ambien ordered today, review tomorrow for efficacy. Code Status: No Code. Dispo:home with family 01/22/16, though may be able to d/c sooner given progress this week, e specially if urinary retention resolves. I spent 25 minutes face to face with the patient, with over 50% spent in counseling and/or coordination of care regarding the above plan. Signed: Placido Staples MD Portions of this chart may have been created with [employer] voice recognition software. Occasi onal wrong-word or sound-alike substitutions may have occurred due to the inherent ness itations of voice recognition software. Please read the chart carefully and recognize, using context, where these substitutions have occurred. 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 Urinary retention Current Facility-Administered Medications Medication Dose Route Frequency Provider Last Rate Last Dose aluminum & magnesium hydroxide-simethicone (MAALOX PLUS REGULAR STRENGTH) 200-200-20 mg /5 mL suspension 30 mL 30 mL Oral Q4H PRN Sajan Hernandez MD amiodarone (PACERONE) tablet 200 mg 200 mg Oral Daily Sajan Hernandez MD 200 mg at 01/16/17820 atorvaSTATin (LIPITOR) tablet 20 mg 20 mg Oral Nightly Sajan Hernandez MD 20 mg at 01/15/172111 bisacodyl (DULCOLAX) suppository 10 mg 10 mg Rectal Daily PRN Sajna Hernandez MD calcium carbonate (TUMS) chewable tablet 1,000 mg 1,000 mg Oral Q8H PRN Sajan decker MD docusate sodium (COLACE) capsule 100 mg 100 mg Oral BID PRN Sajan Hernandez MD 1 00 mg at 01/12/172045 lidocaine (XYLOCAINE) 2% jelly (uro-jet) Urethral 4x Daily PRN Sajan Hernandez MD methocarbamol (ROBAXIN) tablet 1,000 mg 1,000 mg Oral Q6H PRN Sajan Hernandez MD 1,000 mg at 01/15/17 1858 metoprolol tartrate (LOPRESSOR) tablet 12.5 mg 12.5 mg Oral Daily Sajan Hernandez MD 12.5 mg at 01/15/17 0807 midodrine (PROAMATINE) tablet 10 mg 10 mg Oral TID Early Sajan Hernandez MD 10 m g at 01/16/17 0607 abrynuwb-ydazpsbus-iggsjokxwe (NEOSPORIN) ointment Topical TID Deonte contreras MD ondansetron (ZOFRAN ODT) disintegrating tablet 4 mg 4 mg Oral Q6H PRN Sajan cabrera MD oxyCODONE (ROXICODONE) tablet 5-10 mg 5-10 mg Oral Q4H PRN Sajan Hernandez MD 5 mg at 01/15/17 1257 polyethylene glycol (MIRALAX) powder 17 g 17 g Oral Daily PRN Sajan Hernandez MD senna (SENOKOT) tablet 8.6 mg 8.6 mg Oral BID PRN Sajan Hernandez MD 8.6 mg at 0 01/16/17 0821 simethicone (MYLICON) chewable tablet 80 mg 80 mg Oral 4x Daily PRN Sajan Hernandez MD tamsulosin (FLOMAX) capsule 0.8 mg 0.8 mg Oral Daily after breakfast Sajan moncada MD 0.8 mg at 01/16/17 0821 traMADol (ULTRAM) tablet 25 mg 25 mg Oral BID Sajan Hernandez MD 25 mg at 0821 warfarin (COUMADIN) tablet 2.5 mg 2.5 mg Oral Daily - Warfarin Radha Doherty, PharmD 2.5 mg at 01/15/17 1758 warfarin per pharmacy Other Pharmacy Consult Sajan Hernandez MD zolpidem (AMBIEN) tablet 5 mg 5 mg Oral Nightly PRN Deonte Staples MD Allergies Allergen Reactions Naproxen Other (See Comments) States "put me in the hospital with kidney failure" Lisinopril Olmesartan Penicillins Lips swell eyes swell shut and pruritis Principal Problem: Femur fracture, left Active Problems: Atrial flutter Femur fracture, right Anticoagulant long-term use Acute diastolic heart failure Benign prostatic hyperplasia with lower urinary tract symptoms Urinary retention due to benign prostatic hyperplasia Blood pressure 98/52, pulse 88, temperature 35.7 C (96.3 F), temperature source Oral, r sean. rate 18, height 1.753 m (5' 9"), weight 80.6 kg (177 lb 11.1 oz), SpO2 95 %. Subjective Objective Assessment & Plan Placido Staples 01/16/2017 Carine Santos RN - 01/16/2017 9:47 AM ADWOAmd notified of bm held metoprolol ordered bacitracin to soledad ce to bilaterals palms r/t dry cracked skin Electronically signed by Carine Whitten RN at 12/21 9:49 AM Rodrigo Franks MD - 01/15/2017 7:12 PM PDTFormatting of this note migh t be different from the original. Urology follow up S: Disappointed because he had to be catheterized today. No dysuria or hematuria. I knew if I had super beta prostate I would be able to urinate just fine. Denies abdominal or back or flank pain. O: BP 118/61 | Pulse 76 | Temp 36.1 C (97 F) (Oral) | Resp 18 | Ht 1.753 m (5' 9") | Wt 77.2 kg (170 lb 3.1 oz) | SpO2 94% | BMI 25.13 kg/m General: Awake, alert, in no acute distress. Speech is fluent. Appears to be stated age. Lungs: Normal respiratory effort, no wheezing, no stridor, no tachypnea. Back: No CVA tenderness. Abdomen: Soft, nontender, no hepatosplenomegaly. No masses. No guarding; benign. Bladder nondistended. Extremities: 1+ edema bilateral ankle. Warm, perfused. Neuro: Awake, alert, oriented x3. Psychiatric: Mood and affect are normal. Normal judgment. Skin: Erythema has improved. DIAGNOSTIC DATA: Lab Results Component Value Date CREA 1.31 (H) 01/10/2017 BUN 23 (H) 01/10/2017 NA 134 (L) 01/10/2017 K 4.3 01/10/2017 CL 102 01/10/2017 CO2 26 01/10/2017 Lab Results Component Value Date WBC 5.4 01/10/2017 HGB 11.5 (L) 01/10/2017 HCT 34.1 (L) 01/10/2017 MCV 88.7 01/10/2017 PLT 347 01/10/2017 PVR's today ranged from 347-529 cc. Impression: Urinary retention/Incomplete bladder emptying. Prostate hyperplasia Azotemia/CKD. Plan: Monitor creatinine. Monitor PVR's. Continue straight catheterization prn. Continue tamsulosin. Deborah is in favor of performing intermittent self catheterization at home prn, and I would support this. He can be taught self intermittent catheterization technique during this hos pitalization. Follow up in my office as an outpatient. Azra Colon RN - 01/15/2017 3:10 PM PDTWith patient's verbal permission, a copy of the Rehab Team Conferenc e report from 01/15/17 was faxed to his PCP, Dr. Carlos Alberto Galeas, at [facility] in [place], [place] Amanda Irvin, PharmD - 01/15/2017 1:37 PM PDTFormatting of this note might be different fr om the original. WARFARIN PER PHARMACY PROTOCOL: Subjective/Objective: Deborah Thomason is a 86 y.o. male admitted on 12/31/2016 for orthopedic surgery secondar y to femoral fracture. 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 Patient is receiving warfarin for thromboprophyla xis postop and also for atrial flutter. Surgery date: 12/19/2016 ORIF IM carlos Mancuso Goal INR: 2-3 Home dose: 3mg daily Drug Interactions:Amiodarone (HAT RENOVATOR med) Sensitizers:Age, renal fun Recent Labs Lab 01/15/17 0617 01/14/17 0626 01/13/17 0652 01/10/17 0635 CREA -- -- -- -- 1.31* HGB -- -- -- -- 11.5* HCT -- -- -- -- 34.1* PLT -- -- -- -- 347 INR 2.77* 2.74* 3.02* < > 2.63* < > = values in this interval not displayed. Date 12/19 12/20 12/21 12/22 12/23 12/24 12/23-12/31 01/01 01/02 01/03 01/04 01/05 01/06 Hgb 10.9 8.7 9.1 7.8 7.7 7.2 - 11.1 - 10.3 - - Hct 33.4 26.5 26.7 23.4 23.1 21.5 - 32.9 - 32.2 - - Platelets 187 158 144 160 195 209 - 441 - 424 - - INR 1.78 1.67 1.82 2.07 2.18 2.28 - 1.15 1.13 1.29 1.32 1.55 Warfarin Dose 3 mg 3 mg 4 mg 3 mg None hold held 3mg 3 mg 5 mg 4 mg 4 mg 4 mg Date 01/07 01/08 01/09 01/10 01/11 01/12 01/13 01/14 01/15 Hgb - - - 11.5 - - - - Hct - - - 34.1 - - - - Platelets - - - 347 - - - - INR 1.65 1.9 2.14 2.63 3.08 3.4 3.02 2.74 2.77 Warfarin Dose 5 mg 5 mg 5 mg 3mg 1 mg hold hold 2.5 mg 2.5 mg Assessment: INR is therapeutic (2-3), for atrial flutter. Was therapeutic on home regimen of 3 mg daily for aflutter/past cva Pt is receiving amiodarone 01/13 good po intake. Plan: Warfarin 2.5 mg po daily Am labs: INR Warfarin education received No; HAT RENOVATOR Will monitor daily Warfarin Dosing Nomogram Warfarin Dosing Expectations Per P&T-approved Electronically signed by: Amanda Roque, PharmOzzie 01/15/2017 13:37 artinaf, Carine Moncada RN - 01/15/2017 1:10 PM PDTC/o sore back robaxin given states little relief one oxycodone giv en Deonte Tyler MD - 01/15/2017 10:09 AM PDT . Deborah Thomason is a 86 y.o. male patient. 1. Acute diastolic heart failure (HCC) 2. Anticoagulant long-term use 3. Atrial flutter, unspecified type (HCC) 4. Closed fracture of neck of left femur with routine healing, subsequent encounter 5. Other closed fracture of shaft of right femur with routine healing, subsequent encounter 6. Postoperative hemorrhagic shock, initial encounter 7. Benign non-nodular prostatic hyperplasia with lower urinary tract symptoms 8. Urinary retention due to benign prostatic hyperplasia Fsqn-[id number]-[id number] Rehabilitation Medicine Daily Progress Note Date: 01/15/17 ID/CC: Mr. Thomason is a 86-year-old man with a history of a fib admitted 12/18/16 after a GLF resulti ng in right mid-shaft femoral and left intertrochanteric femur fractures resulting in impair ed mobility, transfers, and self-care. Interval history: Patient had severe right lower back spasms and resolved with 10mg baclofen. No new weaknes s/numbness. He is getting a new hand rail for stairs into home as current rails are too wid e for him, he thinks this can be done by this week. Souza out yesterday, still having problems voiding, so doing IC in mean time as per Dr. Talon mckenna's consult. On .8mg flomax. Nursing following his bladder volume and will do IC if vo lume >600 cc and can't void. Last was 250cc. Review of Systems - Constitutional - denies fevers/chills, denies fatigue Eyes - denies diplopia, denies double vision ENT denies sore throat, denies swallowing difficulty Card - denies CP, denies palpitations Pulm - denies dyspnea, cough, PND Abd - denies n/v, denies diarrhea/constipation Vascular - denies swelling, denies cold extremities Neuro -bilateral LE weakness 2/2 fractures MSK - stable bilateral leg pain Endocrine - denies heat/cold intolerance Skin - denies open sores Psych - denies depression, anxiety - Urinary retention, history of BPH All denies new rash, denies pruritis Hematologic- denies easy bruising or bleeding, denies weight loss Problem List Patient Active Problem List Diagnosis Atrial flutter Femur fracture, left Femur fracture, right Anticoagulant long-term use Acute diastolic heart failure Acute respiratory failure with hypoxia Atrial flutter with rapid ventricular response Postoperative hemorrhagic shock, initial encounter Elevated INR Delirium Benign prostatic hyperplasia with lower urinary tract symptoms Urinary retention due to benign prostatic hyperplasia Current Meds: Current Facility-Administered Medications: aluminum & magnesium hydroxide-simethicone (MAALOX PLUS REGULAR STRENGTH) 200-200-20 m g/5 mL suspension 30 mL, 30 mL, Oral, Q4H PRN, Sajan Hernandez MD amiodarone (PACERONE) tablet 200 mg, 200 mg, Oral, Daily, Sajan Hernandez MD, 200 mg at 01/15/17 08 atorvaSTATin (LIPITOR) tablet 20 mg, 20 mg, Oral, Nightly, Sajan Hernandez MD, 20 mg at 01/14/172055 bisacodyl (DULCOLAX) suppository 10 mg, 10 mg, Rectal, Daily PRN, Sajan Hernandez MD calcium carbonate (TUMS) chewable tablet 1,000 mg, 1,000 mg, Oral, Q8H PRN, Sajan Hernandez MD docusate sodium (COLACE) capsule 100 mg, 100 mg, Oral, BID PRN, Sajan Hernandez MD , 100 mg at 01/12/172045 lidocaine (XYLOCAINE) 2% jelly (uro-jet), , Urethral, 4x Daily PRN, Sajan Hernandez MD methocarbamol (ROBAXIN) tablet 1,000 mg, 1,000 mg, Oral, Q6H PRN, Sajan Hernandez MD, 1,000 mg at 01/15/17 1000 metoprolol tartrate (LOPRESSOR) tablet 12.5 mg, 12.5 mg, Oral, Daily, Sajan cabrera MD, 12.5 mg at 01/15/17 08 midodrine (PROAMATINE) tablet 10 mg, 10 mg, Oral, TID Early, Sajan Hernandez MD, 1 0 mg at 01/15/17 0609 ondansetron (ZOFRAN ODT) disintegrating tablet 4 mg, 4 mg, Oral, Q6H PRN, Sajan flores MD oxyCODONE (ROXICODONE) tablet 5-10 mg, 5-10 mg, Oral, Q4H PRN, Sajan Hernandez MD, 5 mg at 01/14/171753 polyethylene glycol (MIRALAX) powder 17 g, 17 g, Oral, Daily PRN, Sajan Hernandez MD senna (SENOKOT) tablet 8.6 mg, 8.6 mg, Oral, BID PRN, Sajan Hernandez MD, 8.6 mg a t 01/12/172045 simethicone (MYLICON) chewable tablet 80 mg, 80 mg, Oral, 4x Daily PRN, Sajan decker MD tamsulosin (FLOMAX) capsule 0.8 mg, 0.8 mg, Oral, Daily after breakfast, Sajan pereira MD, 0.8 mg at 01/15/17806 traMADol (ULTRAM) tablet 25 mg, 25 mg, Oral, BID, Sajan Hernandez MD, 25 mg at 806 warfarin (COUMADIN) tablet 2.5 mg, 2.5 mg, Oral, Daily - Warfarin, Quintin Moore mD, 2.5 mg at 01/14/171753 warfarin per pharmacy, , Other, Pharmacy Consult, Sajan Hernandez MD zolpidem (AMBIEN) tablet 5 mg, 5 mg, Oral, Nightly PRN, Deonte Staples MD Allergies: Allergies Allergen Reactions Lisinopril Not Noted Olmesartan Not Noted Penicillins Not Noted Lips swell eyes swell shut and pruritis Intolerance No active intolerances/contraindications Physical Exam: BP 113/65 | Pulse 77 | Temp 35.6 C (96.1 F) (Oral) | Resp 16 | Ht 1.753 m (5' 9") | Wt 77.2 kg (170 lb 3.1 oz) | SpO2 94% | BMI 25.13 kg/m Gen: AOx3, sitting in bed, NAD CVS: irregular irregular, normal rate, 60's, no m/r/g Resp: CTAB, no wheeze, crackles, or rhonchi Abd: Non-distended, non-tender, +BS MSK: no pain with pelvic rock or pelvic compression, no pain with right hip internal rotati on, mild (stable pain) with left hip internal rotation, normal external rotation for both si sabiha Neuro: right HF 4+/5, KE 4+/5, no numbness in femoral nerve distribution Labs: Recent Results (from the past 48 hour(s)) Protime INR Result Value Ref Range PROTIME 29.8 (H) 11.3 - 13.9 seconds INR 2.74 (H) 0.90 - 1.10 Protime INR Result Value Ref Range PROTIME 30.1 (H) 11.3 - 13.9 seconds INR 2.77 (H) 0.90 - 1.10 Most recent FIM scores: Report Date 01/15/2017 FIM BladderScore: 5 FIM Bowel Score: 5 FIM Bed/Chair/Wheelchair Score: 3 FIM Toilet Transfer Score: 4 FIM Tub/Shower Transfer Score: 5 FIM Walk Score: 2 FIM Distance Walked(feet): 50 feet FIM Wheelchair Score: 1 FIM Stairs Score :2 FIM Eating Score: 6 FIM Grooming Score: 5 FIM Bathing Score: 5 FIM Dressing Upper Body Score: 5 FIM Dressing Lower Body Score: 4 FIM Toileting Score: 4 Assessment/Plan: Mr. Thomason is a 86-year-old man with a history of a fib admitted 12/18/16 after a GLF resulti ng in right mid-shaft femoral and left intertrochanteric femur fractures resulting in impair ed mobility, transfers, and self-care. Pt now has deficits in coordination, ambulation, st rength, ADLs, and IADLs. Patients exam also consistent with a moderate peripheral neuropath y, which likely explains the progressively impaired balance the past few years. Patient has multiple co-morbidities, and is medically complex requiring 24hr nursing and MD care but is safe to continue therapies. # Rehabilitation - The patient will receive the following therapies: -- PT: impairments in gait, transfers, bed mobility, ambulation, ROM, strengthening, endura nce. -- OT: impairments in ADLs and iADLs, ROM, strengthening. -- SW: discharge planning #CVS - h/o a. Fib w/ RVR - stable but BP's continue to be on low side despite midodrine. P celsojoey reports he has similar issues with BP at home and often doesn't take atenolol due to low blood pressures -Cont metoprolol 12.5mg qday, hold for SBP<90 -Cont amiodarone -Cont warfarin, H/H has been stable, INR now therapeutic at 2.77 -Cont atorvastatin -Cont midodrine TID, started by hospitalist, for persistently low BP's #Bilateral femur fractures - pain stable -WBAT BLE's -Cont PRN methocarbamol and oxycodone for pain, baclofen on limited prn basis -Responded well to baclofen, but not ordered as PRN 2/2 CKD don't want him to get too much of this daily #Controlled fall, low impact 01/09 - exam non-concerning, did have lower back spasm but righ t femur and left hip look good on exam, no indication for imaging. He is on warfarin, no susan dence of retroperitineal bleed on exam, also pain resolves with muscle relaxer #Resp - resolved hypoxic respiratory failure likely 2/2 volume overload -Daily weights, CVS as above #Delerium - improving, in setting of bilateral femur fractures -Avoid diphenhydramine, benzodiazepines, scopolamine, and metoclopramide. Limit MANAGEMENT PLANNER active medications using lowest effective dose. -Implement environmental modifications (window bed, maintain well-lit room during day, min imize nighttime disturbance, and keep calendars and clock visible). -OOB to chair TID with meals if able. #Urinary retention - trial souza out 01/14, on max doses tamsulosin, doing IC for now. -Cont tamsulosin 0.8mg #DVT prophylaxis: -see CVS above #Insomnia: Ambien ordered today, review tomorrow for efficacy. Code Status: No Code. Dispo:home with family 01/22/16, though may be able to d/c sooner given progress this week, e specially if urinary retention resolves. I spent 25 minutes face to face with the patient, with over 50% spent in counseling and/or coordination of care regarding the above plan. Signed: Placido Staples MD Portions of this chart may have been created with [employer] voice recognition software. Occasi onal wrong-word or sound-alike substitutions may have occurred due to the inherent ness itations of voice recognition software. Please read the chart carefully and recognize, using context, where these substitutions have occurred. 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 Urinary retention Current Facility-Administered Medications Medication Dose Route Frequency Provider Last Rate Last Dose aluminum & magnesium hydroxide-simethicone (MAALOX PLUS REGULAR STRENGTH) 200-200-20 mg /5 mL suspension 30 mL 30 mL Oral Q4H PRN Sajan Hernandez MD amiodarone (PACERONE) tablet 200 mg 200 mg Oral Daily Sajan Hernandez MD 200 mg at 01/15/17 08 atorvaSTATin (LIPITOR) tablet 20 mg 20 mg Oral Nightly Sajan Hernandez MD 20 mg at 01/14/172055 bisacodyl (DULCOLAX) suppository 10 mg 10 mg Rectal Daily PRN Sajan Hernandez MD calcium carbonate (TUMS) chewable tablet 1,000 mg 1,000 mg Oral Q8H PRN Sajan decker MD docusate sodium (COLACE) capsule 100 mg 100 mg Oral BID PRN Sajan Hernandez MD 1 00 mg at 01/12/172045 lidocaine (XYLOCAINE) 2% jelly (uro-jet) Urethral 4x Daily PRN Sajan Hernandez MD methocarbamol (ROBAXIN) tablet 1,000 mg 1,000 mg Oral Q6H PRN Sajan Hernandez MD 1,000 mg at 01/15/17 1000 metoprolol tartrate (LOPRESSOR) tablet 12.5 mg 12.5 mg Oral Daily Sajan Hernandez MD 12.5 mg at 01/15/17 0807 midodrine (PROAMATINE) tablet 10 mg 10 mg Oral TID Early Sajan Hernandez MD 10 m g at 01/15/17 0609 ondansetron (ZOFRAN ODT) disintegrating tablet 4 mg 4 mg Oral Q6H PRN Sajan cabrera MD oxyCODONE (ROXICODONE) tablet 5-10 mg 5-10 mg Oral Q4H PRN Sajan Hernandez MD 5 mg at 01/14/171753 polyethylene glycol (MIRALAX) powder 17 g 17 g Oral Daily PRN Sajan Hernandez MD senna (SENOKOT) tablet 8.6 mg 8.6 mg Oral BID PRN Sajan Hernandez MD 8.6 mg at 0 01/12/172045 simethicone (MYLICON) chewable tablet 80 mg 80 mg Oral 4x Daily PRN Sajan Hernandez MD tamsulosin (FLOMAX) capsule 0.8 mg 0.8 mg Oral Daily after breakfast Sajan moncada MD 0.8 mg at 01/15/17 08 traMADol (ULTRAM) tablet 25 mg 25 mg Oral BID Sajan Hernandez MD 25 mg at 08 warfarin (COUMADIN) tablet 2.5 mg 2.5 mg Oral Daily - Warfarin Radha Doherty, PharmD 2.5 mg at 01/14/171753 warfarin per pharmacy Other Pharmacy Consult Sajan Hernandez MD zolpidem (AMBIEN) tablet 5 mg 5 mg Oral Nightly PRN Deonte Staples MD Allergies Allergen Reactions Naproxen Other (See Comments) States "put me in the hospital with kidney failure" Lisinopril Olmesartan Penicillins Lips swell eyes swell shut and pruritis Principal Problem: Femur fracture, left Active Problems: Atrial flutter Femur fracture, right Anticoagulant long-term use Acute diastolic heart failure Benign prostatic hyperplasia with lower urinary tract symptoms Urinary retention due to benign prostatic hyperplasia Blood pressure 113/65, pulse 77, temperature 35.6 C (96.1 F), temperature source Oral, resp. rate 16, height 1.753 m (5' 9"), weight 77.2 kg (170 lb 3.1 oz), SpO2 94 %. Subjective Objective Assessment & Plan Placido Staples 01/15/2017 reland, Deneen Roman MD - 01/14/2017 3:53 PM PDTFormatting of this note might be different from th e original. Deborah Thomason is a 86 y.o. male patient. 1. Acute diastolic heart failure (HCC) 2. Anticoagulant long-term use 3. Atrial flutter, unspecified type (HCC) 4. Closed fracture of neck of left femur with routine healing, subsequent encounter 5. Other closed fracture of shaft of right femur with routine healing, subsequent encounter 6. Postoperative hemorrhagic shock, initial encounter 7. Benign non-nodular prostatic hyperplasia with lower urinary tract symptoms 8. Urinary retention due to benign prostatic hyperplasia [id number] Daily Progress Note Date: 01/14/17 ID/CC: Mr. Thomason is a 86-year-old man with a history of a fib admitted 12/18/16 after a GLF resulti ng in right mid-shaft femoral and left intertrochanteric femur fractures resulting in impair ed mobility, transfers, and self-care. Interval history: Patient had severe right lower back spasms and resolved with 10mg baclofen. No new weaknes s/numbness. He is getting a new hand rail for stairs into home as current rails are too wid e for him, he thinks this can be done by this week. Souza out 6 hrs ago, still can't void, so I will consult Dr. Webb. On .8mg flomax. He w as on an OTC remedy at home, beta prostate medicine, that helped, so may have contained saw palmetto or similar herb. Nursing following his bladder volume and will put souza back in i f volume >600 cc and can't void. Last was 250cc. Review of Systems - Constitutional - denies fevers/chills, denies fatigue Eyes - denies diplopia, denies double vision ENT denies sore throat, denies swallowing difficulty Card - denies CP, denies palpitations Pulm - denies dyspnea, cough, PND Abd - denies n/v, denies diarrhea/constipation Vascular - denies swelling, denies cold extremities Neuro -bilateral LE weakness 2/2 fractures MSK - stable bilateral leg pain Endocrine - denies heat/cold intolerance Skin - denies open sores Psych - denies depression, anxiety - Urinary retention, history of BPH All denies rash, denies pruritis Hematologic- denies easy bruising or bleeding, denies weight loss Problem List Patient Active Problem List Diagnosis Atrial flutter Femur fracture, left Femur fracture, right Anticoagulant long-term use Acute diastolic heart failure Acute respiratory failure with hypoxia Atrial flutter with rapid ventricular response Postoperative hemorrhagic shock, initial encounter Elevated INR Delirium Benign prostatic hyperplasia with lower urinary tract symptoms Urinary retention due to benign prostatic hyperplasia Current Meds: Current Facility-Administered Medications: aluminum & magnesium hydroxide-simethicone (MAALOX PLUS REGULAR STRENGTH) 200-200-20 m g/5 mL suspension 30 mL, 30 mL, Oral, Q4H PRN, Sajan Hernandez MD amiodarone (PACERONE) tablet 200 mg, 200 mg, Oral, Daily, Sajan Hernandez MD, 200 mg at 01/14/17 0941 atorvaSTATin (LIPITOR) tablet 20 mg, 20 mg, Oral, Nightly, Sajan Hernandez MD, 20 mg at 01/13/172034 bisacodyl (DULCOLAX) suppository 10 mg, 10 mg, Rectal, Daily PRN, Sajan Hernandez MD calcium carbonate (TUMS) chewable tablet 1,000 mg, 1,000 mg, Oral, Q8H PRN, Sajan Hernandez MD docusate sodium (COLACE) capsule 100 mg, 100 mg, Oral, BID PRN, Sajan Hernandez MD , 100 mg at 01/12/172045 lidocaine (XYLOCAINE) 2% jelly (uro-jet), , Urethral, 4x Daily PRN, Sajan Hernandez MD methocarbamol (ROBAXIN) tablet 1,000 mg, 1,000 mg, Oral, Q6H PRN, Sajan Hernandez MD, 1,000 mg at 01/14/17 1258 metoprolol tartrate (LOPRESSOR) tablet 12.5 mg, 12.5 mg, Oral, Daily, Sajan cabrera MD, 12.5 mg at 01/14/17 0941 midodrine (PROAMATINE) tablet 10 mg, 10 mg, Oral, TID Early, Sajan Hernandez MD, 1 0 mg at 01/14/17 1140 ondansetron (ZOFRAN ODT) disintegrating tablet 4 mg, 4 mg, Oral, Q6H PRN, Sajan flores MD oxyCODONE (ROXICODONE) tablet 5-10 mg, 5-10 mg, Oral, Q4H PRN, Sajan Hernandez MD, 5 mg at 01/14/17 1205 polyethylene glycol (MIRALAX) powder 17 g, 17 g, Oral, Daily PRN, Sajan Hernandez MD senna (SENOKOT) tablet 8.6 mg, 8.6 mg, Oral, BID PRN, Sajan Hernandez MD, 8.6 mg a t 01/12/176 simethicone (MYLICON) chewable tablet 80 mg, 80 mg, Oral, 4x Daily PRN, Sajan decker MD tamsulosin (FLOMAX) capsule 0.8 mg, 0.8 mg, Oral, Daily after breakfast, Sajan pereira MD, 0.8 mg at 01/14/17 0941 traMADol (ULTRAM) tablet 25 mg, 25 mg, Oral, BID, Sajan Hernandez MD, 25 mg at 1549 warfarin (COUMADIN) tablet 2.5 mg, 2.5 mg, Oral, Daily - Warfarin, Quintin Moore mD warfarin per pharmacy, , Other, Pharmacy Consult, Sajan Hernandez MD Allergies: Allergies Allergen Reactions Lisinopril Not Noted Olmesartan Not Noted Penicillins Not Noted Lips swell eyes swell shut and pruritis Intolerance No active intolerances/contraindications Physical Exam: BP 98/60 | Pulse 80 | Temp 36.9 C (98.4 F) (Oral) | Resp 16 | Ht 1.753 m (5' 9") | Wt 76.4 kg (168 lb 6.9 oz) | SpO2 93% | BMI 24.87 kg/m Gen: AOx3, sitting in bed, NAD CVS: irregular irregular, normal rate, 60's, no m/r/g Resp: CTAB, no wheeze, crackles, or rhonchi Abd: Non-distended, non-tender, +BS MSK: no pain with pelvic rock or pelvic compression, no pain with right hip internal rotati on, mild (stable pain) with left hip internal rotation, normal external rotation for both si sabiha Neuro: right HF 4+/5, KE 4+/5, no numbness in femoral nerve distribution Labs: Recent Results (from the past 48 hour(s)) Protime INR Result Value Ref Range PROTIME 32.2 (H) 11.3 - 13.9 seconds INR 3.02 (H) 0.90 - 1.10 Protime INR Result Value Ref Range PROTIME 29.8 (H) 11.3 - 13.9 seconds INR 2.74 (H) 0.90 - 1.10 Most recent FIM scores: Report Date 01/14/2017 FIM BladderScore: 1 FIM Bowel Score: 6 FIM Bed/Chair/Wheelchair Score: 3 FIM Toilet Transfer Score: 4 FIM Tub/Shower Transfer Score: 5 FIM Walk Score: 2 FIM Distance Walked(feet): 50 feet FIM Wheelchair Score: 1 FIM Stairs Score :2 FIM Eating Score: 6 FIM Grooming Score: 5 FIM Bathing Score: 5 FIM Dressing Upper Body Score: 5 FIM Dressing Lower Body Score: 4 FIM Toileting Score: 4 Assessment/Plan: Mr. Thomason is a 86-year-old man with a history of a fib admitted 12/18/16 after a GLF resulti ng in right mid-shaft femoral and left intertrochanteric femur fractures resulting in impair ed mobility, transfers, and self-care. Pt now has deficits in coordination, ambulation, st rength, ADLs, and IADLs. Patients exam also consistent with a moderate peripheral neuropath y, which likely explains the progressively impaired balance the past few years. Patient has multiple co-morbidities, and is medically complex requiring 24hr nursing and MD care but is safe to continue therapies. # Rehabilitation - The patient will receive the following therapies: -- PT: impairments in gait, transfers, bed mobility, ambulation, ROM, strengthening, endura nce. -- OT: impairments in ADLs and iADLs, ROM, strengthening. -- SW: discharge planning #CVS - h/o a. Fib w/ RVR - stable but BP's continue to be on low side despite midodrine. P ho reports he has similar issues with BP at home and often doesn't take atenolol due to low blood pressures -Cont metoprolol 12.5mg qday, hold for SBP<90 -Cont amiodarone -Cont warfarin, H/H has been stable, INR now therapeutic to slightly high. -Cont atorvastatin -Cont midodrine TID, started by hospitalist, for persistently low BP's #Bilateral femur fractures - pain stable -WBAT BLE's -Cont PRN methocarbamol and oxycodone for pain, baclofen on limited prn basis -Responded well to baclofen, but not ordered as PRN 2/2 CKD don't want him to get too much of this daily #Controlled fall, low impact 01/09 - exam non-concerning, did have lower back spasm but righ t femur and left hip look good on exam, no indication for imaging. He is on warfarin, no susan dence of retroperitineal bleed on exam, also pain resolves with muscle relaxer #Resp - resolved hypoxic respiratory failure likely 2/2 volume overload -Daily weights, CVS as above #Delerium - improving, in setting of bilateral femur fractures -Avoid diphenhydramine, benzodiazepines, scopolamine, and metoclopramide. Limit MANAGEMENT PLANNER active medications using lowest effective dose. -Implement environmental modifications (window bed, maintain well-lit room during day, min imize nighttime disturbance, and keep calendars and clock visible). -OOB to chair TID with meals if able. #Urinary retention - trial souza out today, on max doses tamsulosin -Cont tamsulosin 0.8mg #DVT prophylaxis: -see CVS above Code Status: No Code. Dispo:home with family 01/22/16, though may be able to d/c sooner given progress this week, e specially if urinary retention resolves. I spent 20 minutes face to face with the patient, with over 50% spent in counseling and/or coordination of care regarding the above plan. Signed: Placido Staples MD Portions of this chart may have been created with [employer] voice recognition software. Occasi onal wrong-word or sound-alike substitutions may have occurred due to the inherent ness itations of voice recognition software. Please read the chart carefully and recognize, using context, where these substitutions have occurred. 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 Urinary retention Current Facility-Administered Medications Medication Dose Route Frequency Provider Last Rate Last Dose aluminum & magnesium hydroxide-simethicone (MAALOX PLUS REGULAR STRENGTH) 200-200-20 mg /5 mL suspension 30 mL 30 mL Oral Q4H PRN Sajan Hernandez MD amiodarone (PACERONE) tablet 200 mg 200 mg Oral Daily Sajan Hernandez MD 200 mg at 01/14/17 0941 atorvaSTATin (LIPITOR) tablet 20 mg 20 mg Oral Nightly Sajan Hernandez MD 20 mg at 01/13/172034 bisacodyl (DULCOLAX) suppository 10 mg 10 mg Rectal Daily PRN Sajan Hernandez MD calcium carbonate (TUMS) chewable tablet 1,000 mg 1,000 mg Oral Q8H PRN Sajan decker MD docusate sodium (COLACE) capsule 100 mg 100 mg Oral BID PRN Sajan Hernandez MD 1 00 mg at 01/12/176 lidocaine (XYLOCAINE) 2% jelly (uro-jet) Urethral 4x Daily PRN Sajan Hernandez MD methocarbamol (ROBAXIN) tablet 1,000 mg 1,000 mg Oral Q6H PRN Sajan Hernandez MD 1,000 mg at 01/14/17 1258 metoprolol tartrate (LOPRESSOR) tablet 12.5 mg 12.5 mg Oral Daily Sajan Hernandez MD 12.5 mg at 01/14/17 0941 midodrine (PROAMATINE) tablet 10 mg 10 mg Oral TID Early Sajan Hernandez MD 10 m g at 01/14/17 1140 ondansetron (ZOFRAN ODT) disintegrating tablet 4 mg 4 mg Oral Q6H PRN Sajan cabrera MD oxyCODONE (ROXICODONE) tablet 5-10 mg 5-10 mg Oral Q4H PRN Sajan Hernandez MD 5 mg at 01/14/17 1205 polyethylene glycol (MIRALAX) powder 17 g 17 g Oral Daily PRN Sajan Hernandez MD senna (SENOKOT) tablet 8.6 mg 8.6 mg Oral BID PRN Sajan Hernandez MD 8.6 mg at 0 01/12/17 2046 simethicone (MYLICON) chewable tablet 80 mg 80 mg Oral 4x Daily PRN Sajan Hernandez MD tamsulosin (FLOMAX) capsule 0.8 mg 0.8 mg Oral Daily after breakfast Sajan moncada MD 0.8 mg at 01/14/17 0941 traMADol (ULTRAM) tablet 25 mg 25 mg Oral BID Sajan Hernandez MD 25 mg at 1549 warfarin (COUMADIN) tablet 2.5 mg 2.5 mg Oral Daily - Warfarin Radha Doherty, PharmD warfarin per pharmacy Other Pharmacy Consult Sajan Hernandez MD Allergies Allergen Reactions Naproxen Other (See Comments) States "put me in the hospital with kidney failure" Lisinopril Olmesartan Penicillins Lips swell eyes swell shut and pruritis Principal Problem: Femur fracture, left Active Problems: Atrial flutter Femur fracture, right Anticoagulant long-term use Acute diastolic heart failure Benign prostatic hyperplasia with lower urinary tract symptoms Urinary retention due to benign prostatic hyperplasia Blood pressure 98/60, pulse 80, temperature 36.9 C (98.4 F), temperature source Oral, r sean. rate 16, height 1.753 m (5' 9"), weight 76.4 kg (168 lb 6.9 oz), SpO2 93 %. Subjective Objective Assessment & Plan Placido Staples 01/14/2017 Radha Ferrer PharmD - 01/14/2017 2:40 PM PDTFormatting of this note might be different from the orig inal. WARFARIN PER PHARMACY PROTOCOL: Subjective/Objective: Deborah Thomason is a 86 y.o. male admitted on 12/31/2016 for orthopedic surgery secondar y to femoral fracture. 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 Patient is receiving warfarin for thromboprophyla xis postop and also for atrial flutter. Surgery date: 12/19/[address] Mancuso Goal INR: 2-3 Enoxaparin bridge: disch Inr>2 none Home dose: 3mg daily Drug Interactions:Amiodarone (HAT RENOVATOR med) Sensitizers:Age, renal fun Recent Labs Lab 01/14/17 0626 01/13/17 0652 01/12/17 0558 01/10/17 0635 CREA -- -- -- -- 1.31* HGB -- -- -- -- 11.5* HCT -- -- -- -- 34.1* PLT -- -- -- -- 347 INR 2.74* 3.02* 3.40* < > 2.63* < > = values in this interval not displayed. Date 12/19 12/20 12/21 12/22 12/23 12/24 12/23-12/31 01/01 01/02 01/03 01/04 01/05 01/06 Hgb 10.9 8.7 9.1 7.8 7.7 7.2 - 11.1 - 10.3 - - Hct 33.4 26.5 26.7 23.4 23.1 21.5 - 32.9 - 32.2 - - Platelets 187 158 144 160 195 209 - 441 - 424 - - INR 1.78 1.67 1.82 2.07 2.18 2.28 - 1.15 1.13 1.29 1.32 1.55 Warfarin Dose 3 mg 3 mg 4 mg 3 mg None hold held 3mg 3 mg 5 mg 4 mg 4 mg 4 mg Date 01/07 01/08 01/09 01/10 01/11 01/12 01/13 01/14 Hgb - - - 11.5 - - - Hct - - - 34.1 - - - Platelets - - - 347 - - - INR 1.65 1.9 2.14 2.63 3.08 3.4 3.02 2.74 Warfarin Dose 5 mg 5 mg 5 mg 3mg 1 mg hold 2.5 mg Assessment: INR is therapeutic (2-3), for atrial flutter. Pt admitted 12/18 with a therapeutic INR, received 5 mg of Vit K in [place] and given F FP to help reverse anticoagulation in preparation for fx repair Was therapeutic on home regimen of 3 mg daily for aflutter/past cva Pt is receiving amiodarone Due to inr > 2.0 x 2 days, hep sc has been dc'd 01/13 good po intake. Plan: Warfarin 2.5 mg po daily Am labs: INR Warfarin education received No; HAT RENOVATOR Will monitor daily Warfarin Dosing Nomogram Warfarin Dosing Expectations Per P&T-approved Electronically signed by: Radha Doherty, PharmD 01/14/2017 14:40 Carine Santos RN - 01/14/2017 10:11 AM PDTchnaged drsgs to skin tear to marilynn and lue left Also placed telfa to right wrist r/t skin tear. old skin tears to arms and legs open to air removed f/c per md sanders rder will monitor pvr's Callie Meléndez, PharmD - 01/13/2017 10:13 AM PDTFormatting of this note might be differen t from the original. WARFARIN PER PHARMACY PROTOCOL: Subjective/Objective: Deborah Thomason is a 86 y.o. male admitted on 12/31/2016 for orthopedic surgery secondar y to femoral fracture. 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 Patient is receiving warfarin for thromboprophyla xis postop and also for atrial flutter. Surgery date: 12/19/[address] Mancuso Goal INR: 2-3 Enoxaparin bridge: disch Inr>2 none Home dose: 3mg daily Drug Interactions:Amiodarone (HAT RENOVATOR med) Sensitizers:Age, renal fun Recent Labs Lab 01/13/17 0652 01/12/17 0558 01/11/17 0547 01/10/17 0635 CREA -- -- -- 1.31* HGB -- -- -- 11.5* HCT -- -- -- 34.1* PLT -- -- -- 347 INR 3.02* 3.40* 3.08* 2.63* Date 12/19 12/20 12/21 12/22 12/23 12/24 12/23-12/31 01/01 01/02 01/03 01/04 01/05 01/06 Hgb 10.9 8.7 9.1 7.8 7.7 7.2 - 11.1 - 10.3 - - Hct 33.4 26.5 26.7 23.4 23.1 21.5 - 32.9 - 32.2 - - Platelets 187 158 144 160 195 209 - 441 - 424 - - INR 1.78 1.67 1.82 2.07 2.18 2.28 - 1.15 1.13 1.29 1.32 1.55 Warfarin Dose 3 mg 3 mg 4 mg 3 mg None hold held 3mg 3 mg 5 mg 4 mg 4 mg 4 mg Date 01/07 01/08 01/09 01/10 01/11 01/12 01/13 Hgb - - - 11.5 - - Hct - - - 34.1 - - Platelets - - - 347 - - INR 1.65 1.9 2.14 2.63 3.08 3.4 3.02 Warfarin Dose 5 mg 5 mg 5 mg 3mg 1 mg hold Assessment: INR is therapeutic (2-3), for atrial flutter. Pt admitted 12/18 with a therapeutic INR, received 5 mg of Vit K in [place] and given F FP to help reverse anticoagulation in preparation for fx repair Was therapeutic on home regimen of 3 mg daily for aflutter/past cva Pt is receiving amiodarone Due to inr > 2.0 x 2 days, hep sc has been dc'd 01/13 good po intake. Plan: INR decreased to 3.02 after holding warfarin dose yesterday 01/13/17. Will hold the dose today as well. Am labs: INR Warfarin education received No; HAT RENOVATOR Will monitor daily Warfarin Dosing Nomogram Warfarin Dosing Expectations Per P&T-approved Electronically signed by: Callie Burris PharmD 01/13/2017 10:13 Ora Medina PharmD - 01/12/2017 10:05 AM PDTFormatting of this note might be different from the origi nal. WARFARIN PER PHARMACY PROTOCOL: Subjective/Objective: Deborah Thomason is a 86 y.o. male admitted on 12/31/2016 for orthopedic surgery secondar y to femoral fracture. 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 Patient is receiving warfarin for thromboprophyla xis postop and also for atrial flutter. Surgery date: 12/19/[address] Mancuso Goal INR: 2-3 Enoxaparin bridge: disch Inr>2 none Home dose: 3mg daily Drug Interactions:Amiodarone (HAT RENOVATOR med) Sensitizers:Age, renal fun Recent Labs Lab 01/12/17 0558 01/11/17 0547 01/10/17 0635 CREA -- -- 1.31* HGB -- -- 11.5* HCT -- -- 34.1* PLT -- -- 347 INR 3.40* 3.08* 2.63* Date 12/19 12/20 12/21 12/22 12/23 12/24 12/23-12/31 01/01 01/02 01/03 01/04 01/05 01/06 Hgb 10.9 8.7 9.1 7.8 7.7 7.2 - 11.1 - 10.3 - - Hct 33.4 26.5 26.7 23.4 23.1 21.5 - 32.9 - 32.2 - - Platelets 187 158 144 160 195 209 - 441 - 424 - - INR 1.78 1.67 1.82 2.07 2.18 2.28 - 1.15 1.13 1.29 1.32 1.55 Warfarin Dose 3 mg 3 mg 4 mg 3 mg None hold held 3mg 3 mg 5 mg 4 mg 4 mg 4 mg Date 01/07 01/08 01/09 01/10 01/11 01/12 Hgb - - - 11.5 - - Hct - - - 34.1 - - Platelets - - - 347 - - INR 1.65 1.9 2.14 2.63 3.08 3.4 Warfarin Dose 5 mg 5 mg 5 mg 3mg 1 mg hold Assessment: INR is therapeutic (2-3), for atrial flutter. Pt admitted 12/18 with a therapeutic INR, received 5 mg of Vit K in [place] and given F FP to help reverse anticoagulation in preparation for fx repair Was therapeutic on home regimen of 3 mg daily for aflutter/past cva Pt is receiving amiodarone Due to inr > 2.0 x 2 days, hep sc has been dc'd 01/12 good po intake. Plan: inr increased again, will hold warf dose today. Am labs: INR Warfarin education received No; HAT RENOVATOR Will monitor daily Warfarin Dosing Nomogram Warfarin Dosing Expectations Per P&T-approved Electronically signed by: Ora Aranda [facility] 01/12/2017 10:05 Sajan Worrell MD - 01/11/2017 4:33 PM PDT [id number] Daily Progress Note Date: 01/11/17 ID/CC: Mr. Thomason is a 86-year-old man with a history of a fib admitted 12/18/16 after a GLF resulti ng in right mid-shaft femoral and left intertrochanteric femur fractures resulting in impair ed mobility, transfers, and self-care. Interval history: Patient had severe right lower back spasms again this morning, continued after he was given methocarbimol but resolved with 10mg baclofen. No new weakness/numbness. He is going to t alk to his friend and get a new hand rail for stairs into home as current rails are too wide for him, he thinks this can be done by early next week. Review of Systems - Constitutional - denies fevers/chills, denies fatigue Eyes - denies diplopia, denies double vision ENT denies sore throat, denies swallowing difficulty Card - denies CP, denies palpitations Pulm - denies dyspnea, cough Abd - denies n/v, denies diarrhea/constipation Vascular - denies swelling, denies cold extremities Neuro -bilateral LE weakness 2/2 fractures MSK - stable bilateral leg pain Endocrine - denies heat/cold intolerance Skin - denies open sores Psych - denies depression, anxiety - Urinary retention, history of BPH All denies rash, denies pruritis Hematologic- denies easy bruising or bleeding, denies weight loss Problem List Patient Active Problem List Diagnosis Atrial flutter Femur fracture, left Femur fracture, right Anticoagulant long-term use Acute diastolic heart failure Acute respiratory failure with hypoxia Atrial flutter with rapid ventricular response Postoperative hemorrhagic shock, initial encounter Elevated INR Delirium Benign prostatic hyperplasia with lower urinary tract symptoms Current Meds: Current Facility-Administered Medications: aluminum & magnesium hydroxide-simethicone (MAALOX PLUS REGULAR STRENGTH) 200-200-20 m g/5 mL suspension 30 mL, 30 mL, Oral, Q4H PRN, Sajan Hernandez MD amiodarone (PACERONE) tablet 200 mg, 200 mg, Oral, Daily, Sajan Hernandez MD, 200 mg at 01/11/17824 atorvaSTATin (LIPITOR) tablet 20 mg, 20 mg, Oral, Nightly, Sajan Hernandez MD, 20 mg at 01/10/172122 bisacodyl (DULCOLAX) suppository 10 mg, 10 mg, Rectal, Daily PRN, Sajan Hernandez MD calcium carbonate (TUMS) chewable tablet 1,000 mg, 1,000 mg, Oral, Q8H PRN, Sajan Hernandez MD docusate sodium (COLACE) capsule 100 mg, 100 mg, Oral, BID PRN, Sajan Hernandez MD , 100 mg at 01/11/17 08 lidocaine (XYLOCAINE) 2% jelly (uro-jet), , Urethral, 4x Daily PRN, Sajan Hernandez MD methocarbamol (ROBAXIN) tablet 1,000 mg, 1,000 mg, Oral, Q6H PRN, Sajan Hernandez MD, 1,000 mg at 01/11/17 0943 metoprolol tartrate (LOPRESSOR) tablet 12.5 mg, 12.5 mg, Oral, Daily, Sajan cabrera MD, 12.5 mg at 01/11/17 0822 midodrine (PROAMATINE) tablet 10 mg, 10 mg, Oral, TID Early, Sajan Hernandez MD, 1 0 mg at 01/11/17 1315 ondansetron (ZOFRAN ODT) disintegrating tablet 4 mg, 4 mg, Oral, Q6H PRN, Sajan flores MD oxyCODONE (ROXICODONE) tablet 5-10 mg, 5-10 mg, Oral, Q4H PRN, Sajan Hernandez MD, 5 mg at 01/11/17 0936 polyethylene glycol (MIRALAX) powder 17 g, 17 g, Oral, Daily PRN, Sajan Hernandez MD senna (SENOKOT) tablet 8.6 mg, 8.6 mg, Oral, BID PRN, Sajan Hernandez MD, 8.6 mg a t 01/11/17 0826 simethicone (MYLICON) chewable tablet 80 mg, 80 mg, Oral, 4x Daily PRN, Sajan decker MD tamsulosin (FLOMAX) capsule 0.8 mg, 0.8 mg, Oral, Daily after breakfast, Sajan pereira MD, 0.8 mg at 01/11/17 0822 traMADol (ULTRAM) tablet 25 mg, 25 mg, Oral, BID, Sajan Hernandez MD, 25 mg at 1501 warfarin (COUMADIN) tablet 1 mg, 1 mg, Oral, Once - Warfarin, Radha Doherty, PharmD warfarin per pharmacy, , Other, Pharmacy Consult, Sajan Hernandez MD Allergies: Allergies Allergen Reactions Lisinopril Not Noted Olmesartan Not Noted Penicillins Not Noted Lips swell eyes swell shut and pruritis Intolerance No active intolerances/contraindications Physical Exam: BP 100/60 | Pulse 78 | Temp 35.9 C (96.6 F) (Oral) | Resp 16 | Ht 1.753 m (5' 9") | Wt 78.1 kg (172 lb 2.9 oz) | SpO2 94% | BMI 25.43 kg/m Gen: AOx3, sitting in bed, NAD CVS: irregular irregular, normal rate, no m/r/g Resp: CTAB, no wheeze, crackles, or rhonchi Abd: Non-distended, non-tender, +BS MSK: no pain with pelvic rock or pelvic compression, no pain with right hip internal rotati on, mild (stable pain) with left hip internal rotation, normal external rotation for both si sabiha Neuro: right HF 4+/5, KE 4+/5, no numbness in femoral nerve distribution Labs: Recent Results (from the past 48 hour(s)) CBC with Differential Result Value Ref Range WBC 5.4 4.0 - 11.0 K/uL RBC 3.85 (L) 4.30 - 5.70 M/uL Hgb 11.5 (L) 13.5 - 18.0 g/dL Hct 34.1 (L) 40.0 - 51.0 % MCV 88.7 83.0 - 101.0 fL MCH 29.8 28.0 - 35.0 pg MCHC 33.6 32.0 - 36.0 g/dL RDW-CV 16.8 (H) <15.0 % Platelet Count 347 140 - 440 K/uL MPV 8.1 fL % Neutrophils 69.1 45.0 - 82.0 % % Lymphocytes 8.2 (L) 20.0 - 45.0 % % Monocytes 11.7 4.0 - 12.0 % % Eosinophils 9.7 (H) 0.0 - 5.0 % % Basophils 1.3 (H) 0.0 - 1.0 % Absolute Neutrophils 3.70 1.80 - 8.50 K/uL Absolute Lymphocytes 0.40 (L) 0.60 - 3.20 K/uL Absolute Monocytes 0.60 0.00 - 1.00 K/uL Absolute Eosinophils 0.50 (H) 0.00 - 0.40 K/uL Absolute Basophils 0.10 0.00 - 0.10 K/uL Basic Metabolic Panel Result Value Ref Range NA 134 (L) 136 - 149 mmol/L K 4.3 3.5 - 5.1 mmol/L CL 102 98 - 109 mmol/L CO2 26 24 - 31 mmol/L ANION GAP 6 3 - 16 mmol/L GLUCOSE 86 70 - 109 mg/dL BUN 23 (H) 7 - 18 mg/dL Creatinine, Serum/Plasma 1.31 (H) 0.60 - 1.30 mg/dL eGFR if not 52 (L) >=60 mL/min/1.73m2 CALCIUM 8.7 8.3 - 10.5 mg/dL BUN/CREA 17.6 Protime INR Result Value Ref Range PROTIME 28.9 (H) 11.3 - 13.9 seconds INR 2.63 (H) 0.90 - 1.10 Urinalysis Result Value Ref Range COLOR Yellow Light Yellow, Yellow, Straw CLARITY Clear Clear PH UA 6.0 5.0 - 8.0 Specific Vian 1.017 1.001 - 1.030 PROTEIN UA 30 mg/dL (A) Negative BLOOD UA Small (A) Negative GLUCOSE UA Negative Negative KETONES UA Negative Negative BILIRUBIN UA Negative Negative NITRITE UA Negative Negative LEUKOCYTES ESTERASE UA Negative Negative UROBILINOGEN UA Negative 0.2 mg/dL, 1.0 mg/dL, Negative Protime INR Result Value Ref Range PROTIME 32.7 (H) 11.3 - 13.9 seconds INR 3.08 (H) 0.90 - 1.10 Most recent FIM scores: Report Date 01/11/2017 FIM BladderScore: 1 FIM Bowel Score: 6 FIM Bed/Chair/Wheelchair Score: 3 FIM Toilet Transfer Score: 4 FIM Tub/Shower Transfer Score: 5 FIM Walk Score: 2 FIM Distance Walked(feet): 50 feet FIM Wheelchair Score: 1 FIM Stairs Score :2 FIM Eating Score: 6 FIM Grooming Score: 5 FIM Bathing Score: 5 FIM Dressing Upper Body Score: 5 FIM Dressing Lower Body Score: 4 FIM Toileting Score: 4 Assessment/Plan: Mr. Thomason is a 86-year-old man with a history of a fib admitted 12/18/16 after a GLF resulti ng in right mid-shaft femoral and left intertrochanteric femur fractures resulting in impair ed mobility, transfers, and self-care. Pt now has deficits in coordination, ambulation, st rength, ADLs, and IADLs. Patients exam also consistent with a moderate peripheral neuropath y, which likely explains the progressively impaired balance the past few years. Patient has multiple co-morbidities, and is medically complex requiring 24hr nursing and MD care but is safe to continue therapies. # Rehabilitation - The patient will receive the following therapies: -- PT: impairments in gait, transfers, bed mobility, ambulation, ROM, strengthening, endura nce. -- OT: impairments in ADLs and iADLs, ROM, strengthening. -- SW: discharge planning #CVS - h/o a. Fib w/ RVR - stable but BP's continue to be on low side despite midodrine. P celsojoey reports he has similar issues with BP at home and often doesn't take atenolol due to low blood pressures -Cont metoprolol 12.5mg qday, hold for SBP<90 -Cont amiodarone -Cont warfarin, H/H has been stable, INR now theraputic -Cont atorvastatin -Cont midodrine TID, started by hospitalist, for persistently low BP's #Bilateral femur fractures - pain stable -WBAT BLE's -Cont PRN methocarbamol and oxycodone for pain -Responded well to baclofen today, but not ordered as PRN 2/2 CKD don't want him to get to o much of this daily #Controlled fall, low impact 01/09 - exam non-concerning, did have lower back spasms last tw o days but right femur and left hip look good on exam, no indication for imaging. He is on w arfarin, no evidence of retroperitineal bleed on exam, also pain resolves with muscle relaxe r #Resp - resolved hypoxic respiratory failure likely 2/2 volume overload -Daily weights, CVS as above #Delerium - stable, in setting of bilateral femur fractures -Avoid diphenhydramine, benzodiazepines, scopolamine, and metoclopramide. Limit MANAG[employer] active medications using lowest effective dose. -Implement environmental modifications (window bed, maintain well-lit room during day, min imize nighttime disturbance, and keep calendars and clock visible). -OOB to chair TID with meals if able. #Urinary retention - PVR's all elevated after removing souza yesterday -Cont tamsulosin 0.8mg -Souza placed for persistently high PVR's, will do another void trial early next week. #DVT prophylaxis: -see CVS above Code Status: No Code. Dispo:home with family 01/22/16, though may be able to d/c sooner given progress this week I spent 20 minutes face to face with the patient, with over 50% spent in counseling and/or coordination of care regarding the above plan. Signed: Sajan Hernandez MD Portions of this chart may have been created with [employer] voice recognition software. Occasi onal wrong-word or sound-alike substitutions may have occurred due to the inherent ness itations of voice recognition software. Please read the chart carefully and recognize, using context, where these substitutions have occurred. obisch, Ryan Anderson - 01/11/2017 7:13 AM PDT WARFARIN PER PHARMACY PROTOCOL: Subjective/Objective: Deborah Thomason is a 86 y.o. male admitted on 12/31/2016 for orthopedic surgery secondar y to femoral fracture. 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 Patient is receiving warfarin for thromboprophyla xis postop and also for atrial flutter. Surgery date: 12/19/[address] Mancuso Goal INR: 2-3 Enoxaparin bridge: disch Inr>2 none Drug Interactions:Amiodarone (HAT RENOVATOR med) Sensitizers:Age, renal fun Recent Labs Lab 01/11/17 0547 01/10/17 0635 01/09/17 0631 CREA -- 1.31* -- HGB -- 11.5* -- HCT -- 34.1* -- PLT -- 347 -- INR 3.08* 2.63* 2.14* Date 12/19 12/20 12/21 12/22 12/23 12/24 12/23-12/31 01/01 01/02 01/03 01/04 01/05 01/06 Hgb 10.9 8.7 9.1 7.8 7.7 7.2 - 11.1 - 10.3 - - Hct 33.4 26.5 26.7 23.4 23.1 21.5 - 32.9 - 32.2 - - Platelets 187 158 144 160 195 209 - 441 - 424 - - INR 1.78 1.67 1.82 2.07 2.18 2.28 - 1.15 1.13 1.29 1.32 1.55 Warfarin Dose 3 mg 3 mg 4 mg 3 mg None hold held 3mg 3 mg 5 mg 4 mg 4 mg 4 mg Date 01/07 01/08 01/09 01/10 01/11 Hgb - - - 11.5 - Hct - - - 34.1 - Platelets - - - 347 - INR 1.65 1.9 2.14 2.63 3.08 Warfarin Dose 5 mg 5 mg 5 mg 3mg 1 mg Assessment: INR is therapeutic (2-3), for atrial flutter. Pt admitted 12/18 with a therapeutic INR, received 5 mg of Vit K in [place] and given F FP to help reverse anticoagulation in preparation for fx repair Was therapeutic on home regimen of 3 mg daily for aflutter/past cva Pt is receiving amiodarone and heparin sc q12h Due to inr > 2.0 x 2 days, hep sc has been dc'd Plan: Warfarin 1 mg x1 Am labs: INR Warfarin education received No; HAT RENOVATOR Will monitor daily Warfarin Dosing Nomogram Warfarin Dosing Expectations Per P&T-approved Electronically signed by: Radha Doherty, PharmD 01/11/2017 7:13 Adam, Ora Moncada, Ph armD - 01/10/2017 10:36 AM PDT WARFARIN PER PHARMACY PROTOCOL: Subjective/Objective: Deborah Thomason is a 86 y.o. male admitted on 12/31/2016 for orthopedic surgery secondar y to femoral fracture. 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 Patient is receiving warfarin for thromboprophyla xis postop and also for atrial flutter. Surgery date: 12/19/[address] Gryler Goal INR: 2-3 Enoxaparin bridge: disch Inr>2 none Drug Interactions:Amiodarone (HAT RENOVATOR med) Sensitizers:Age, renal fun Recent Labs Lab 01/10/17 0635 01/09/17 0631 01/08/17 0554 01/04/17 0638 CREA 1.31* -- -- -- 1.29 HGB 11.5* -- -- -- 10.3* HCT 34.1* -- -- -- 32.2* PLT 347 -- -- -- 424 INR 2.63* 2.14* 1.90* < > 1.19* < > = values in this interval not displayed. Date 12/19 12/20 12/21 12/22 12/23 12/24 12/23-12/31 01/01 01/02 01/03 01/04 01/05 01/06 Hgb 10.9 8.7 9.1 7.8 7.7 7.2 - 11.1 - 10.3 - - Hct 33.4 26.5 26.7 23.4 23.1 21.5 - 32.9 - 32.2 - - Platelets 187 158 144 160 195 209 - 441 - 424 - - INR 1.78 1.67 1.82 2.07 2.18 2.28 - 1.15 1.13 1.29 1.32 1.55 Warfarin Dose 3 mg 3 mg 4 mg 3 mg None hold held 3mg 3 mg 5 mg 4 mg 4 mg 4 mg Date 01/07 01/08 01/09 01/10 Hgb - - - 11.5 Hct - - - 34.1 Platelets - - - 347 INR 1.65 1.9 2.14 2.63 Warfarin Dose 5 mg 5 mg 5 mg 3mg Assessment: INR is therapeutic (2-3), for atrial flutter. Pt admitted 12/18 with a therapeutic INR, received 5 mg of Vit K in [place] and given F FP to help reverse anticoagulation in preparation for fx repair Was therapeutic on home regimen of 3 mg daily for aflutter/past cva Pt is receiving amiodarone and heparin sc q12h Due to inr > 2.0 x 2 days, hep sc has been dc'd Plan: Warfarin 3mg x1 Am labs: INR Warfarin education received No; HAT RENOVATOR Will monitor daily Warfarin Dosing Nomogram Warfarin Dosing Expectations Per P&T-approved Electronically signed by: Ora Aranda [facility] 01/10/2017 10:36 Sajan Worrell MD - 01/09/2017 8:56 PM PDT [id number] Daily Progress Note Date: 01/09/17 ID/CC: Mr. Thomason is a 86-year-old man with a history of a fib admitted 12/18/16 after a GLF resulti ng in right mid-shaft femoral and left intertrochanteric femur fractures resulting in impair ed mobility, transfers, and self-care. Interval history: Controlled fall with OT this morning, [place] [facility] [place] [facility] [place]. Low impact no pain after fall. Did have some lower back muscle spasms as he d id on Sat in the afternoon, which limited therapies today, and eventually improved with [facility] [place]er. Review of Systems - Constitutional - denies fevers/chills, denies fatigue Eyes - denies diplopia, denies double vision ENT denies sore throat, denies swallowing difficulty Card - denies CP, denies palpitations Pulm - denies dyspnea, cough Abd - denies n/v, denies diarrhea/constipation Vascular - denies swelling, denies cold extremities Neuro -bilateral LE weakness 2/2 fractures MSK - stable bilateral leg pain Endocrine - denies heat/cold intolerance Skin - denies open sores Psych - denies depression, anxiety - Urinary retention, history of BPH All denies rash, denies pruritis Hematologic- denies easy bruising or bleeding, denies weight loss Problem List Patient Active Problem List Diagnosis Atrial flutter Femur fracture, left Femur fracture, right Anticoagulant long-term use Acute diastolic heart failure Acute respiratory failure with hypoxia Atrial flutter with rapid ventricular response Postoperative hemorrhagic shock, initial encounter Elevated INR Delirium Benign prostatic hyperplasia with lower urinary tract symptoms Current Meds: Current Facility-Administered Medications: aluminum & magnesium hydroxide-simethicone (MAALOX PLUS REGULAR STRENGTH) 200-200-20 m g/5 mL suspension 30 mL, 30 mL, Oral, Q4H PRN, Sajan Hernandez MD amiodarone (PACERONE) tablet 200 mg, 200 mg, Oral, Daily, Sajan Hernandez MD, 200 mg at 01/09/17 0825 atorvaSTATin (LIPITOR) tablet 20 mg, 20 mg, Oral, Nightly, Sajan Hernandez MD, 20 mg at 01/08/17 2116 bisacodyl (DULCOLAX) suppository 10 mg, 10 mg, Rectal, Daily PRN, Sajan Hernandez MD calcium carbonate (TUMS) chewable tablet 1,000 mg, 1,000 mg, Oral, Q8H PRN, Sajan Hernandez MD docusate sodium (COLACE) capsule 100 mg, 100 mg, Oral, BID PRN, Sajan Hernandez MD , 100 mg at 01/04/17 1632 heparin 5,000 units/mL injection 5,000 Units, 5,000 Units, Subcutaneous, 2 times per d ay, Sajan Hernandez MD, 5,000 Units at 01/09/17 0824 lidocaine (XYLOCAINE) 2% jelly (uro-jet), , Urethral, 4x Daily PRN, Sajan Hernandez MD methocarbamol (ROBAXIN) tablet 1,000 mg, 1,000 mg, Oral, Q6H PRN, Sajan Hernandez MD, 1,000 mg at 01/09/17 1220 [START ON 01/10/2017] metoprolol tartrate (LOPRESSOR) tablet 12.5 mg, 12.5 mg, Oral, Da dorothea, Sajan Hernandez MD midodrine (PROAMATINE) tablet 10 mg, 10 mg, Oral, TID Early, Sajan Hernandez MD, 1 0 mg at 01/09/17 1704 ondansetron (ZOFRAN ODT) disintegrating tablet 4 mg, 4 mg, Oral, Q6H PRN, Sajan flores MD oxyCODONE (ROXICODONE) tablet 5-10 mg, 5-10 mg, Oral, Q4H PRN, Sajan Hernandez MD, 5 mg at 01/09/17 1313 polyethylene glycol (MIRALAX) powder 17 g, 17 g, Oral, Daily PRN, Sajan Hernandez MD senna (SENOKOT) tablet 8.6 mg, 8.6 mg, Oral, BID PRN, Sajan Hernandez MD, 8.6 mg a t 01/04/17 1632 simethicone (MYLICON) chewable tablet 80 mg, 80 mg, Oral, 4x Daily PRN, Sajan decker MD [START ON 01/10/2017] tamsulosin (FLOMAX) capsule 0.8 mg, 0.8 mg, Oral, Daily after rome akfast, Sajan Hernandez MD traMADol (ULTRAM) tablet 25 mg, 25 mg, Oral, BID, Sajan Hernandez MD, 25 mg at 1357 warfarin per pharmacy, , Other, Pharmacy Consult, Sajan Hernandez MD Allergies: Allergies Allergen Reactions Lisinopril Not Noted Olmesartan Not Noted Penicillins Not Noted Lips swell eyes swell shut and pruritis Intolerance No active intolerances/contraindications Physical Exam: BP 102/54 | Pulse 88 | Temp 36.2 C (97.2 F) (Oral) | Resp 16 | Ht 1.753 m (5' 9") | Wt 78.3 kg (172 lb 11.2 oz) | SpO2 96% | BMI 25.50 kg/m Gen: AOx3, sitting in bed, NAD CVS: irregular irregular, normal rate, no m/r/g Resp: CTAB, no wheeze, crackles, or rhonchi Abd: Non-distended, non-tender, +BS MSK: no pain with pelvic rock or pelvic compression, no pain with right hip internal rotati on, mild (stable pain) with left hip internal rotation, normal external rotation for both si sabiha Neuro: right HE 3+/5, left 3/5, right KE 4+ left 4- Labs: Recent Results (from the past 48 hour(s)) Protime INR Result Value Ref Range PROTIME 22.3 (H) 11.3 - 13.9 seconds INR 1.90 (H) 0.90 - 1.10 Protime INR Result Value Ref Range PROTIME 24.5 (H) 11.3 - 13.9 seconds INR 2.14 (H) 0.90 - 1.10 Most recent FIM scores: Report Date 01/09/2017 FIM BladderScore: 1 FIM Bowel Score: 6 FIM Bed/Chair/Wheelchair Score: 3 FIM Toilet Transfer Score: 4 FIM Tub/Shower Transfer Score: 5 FIM Walk Score: 2 FIM Distance Walked(feet): 50 feet FIM Wheelchair Score: 1 FIM Stairs Score :2 FIM Eating Score: 6 FIM Grooming Score: 5 FIM Bathing Score: 5 FIM Dressing Upper Body Score: 5 FIM Dressing Lower Body Score: 4 FIM Toileting Score: 4 Assessment/Plan: Mr. Thomason is a 86-year-old man with a history of a fib admitted 12/18/16 after a GLF resulti ng in right mid-shaft femoral and left intertrochanteric femur fractures resulting in impair ed mobility, transfers, and self-care. Pt now has deficits in coordination, ambulation, st rength, ADLs, and IADLs. Patients exam also consistent with a moderate peripheral neuropath y, which likely explains the progressively impaired balance the past few years. Patient has multiple co-morbidities, and is medically complex requiring 24hr nursing and MD care but is safe to continue therapies. # Rehabilitation - The patient will receive the following therapies: -- PT: impairments in gait, transfers, bed mobility, ambulation, ROM, strengthening, endura nce. -- OT: impairments in ADLs and iADLs, ROM, strengthening. -- SW: discharge planning #CVS - h/o a. Fib w/ RVR - stable but BP's continue to be on low side despite midodrine. P ho reports he has similar issues with BP at home and often doesn't take atenolol due to low blood pressures -Decrease metoprolol 12.5mg qday, hold for SBP<90. I realize this is a bit strange of dos ing but HR's have been and BP's continue to be quite low in morning before he has breakfast and AM meds, then improves in the mid-morning to afternoon -Cont amiodarone -Cont warfarin, H/H has been stable, s/p vit K so may take longer to be theraputic -Cont heparin until INR therapeutic today, if INR >2 tomorrow again will d/c heparin -Cont atorvastatin -Cont midodrine TID, started by hospitalist. #Bilateral femur fractures - pain stable -WBAT BLE's -Cont PRN methocarbamol and oxycodone for pain #Controlled fall, low impact 01/09 - exam non-concerning, did have lower back spasms today a s he did a few days ago but right femur and left hip look good on exam, no indication for im aging. #Resp - resolved hypoxic respiratory failure likely 2/2 volume overload -Daily weights, CVS as above #Delerium - stable, in setting of bilateral femur fractures -Avoid diphenhydramine, benzodiazepines, scopolamine, and metoclopramide. Limit MANAGEMENT PLANNER active medications using lowest effective dose. -Implement environmental modifications (window bed, maintain well-lit room during day, min imize nighttime disturbance, and keep calendars and clock visible). -OOB to chair TID with meals if able. #Urinary retention - PVR's all elevated after removing souza yesterday -increase tamsulosin 0.4-->0.8mg -If PVR's still high will repeat U/A and place souza again if normal. #DVT prophylaxis: -see CVS above Code Status: No Code. Dispo:home with family 01/22/16, though may be able to d/c sooner given progress this week I spent 20 minutes face to face with the patient, with over 50% spent in counseling and/or coordination of care regarding the above plan. Signed: Sajan Hernandez MD Portions of this chart may have been created with [employer] voice recognition software. Occasi onal wrong-word or sound-alike substitutions may have occurred due to the inherent ness itations of voice recognition software. Please read the chart carefully and recognize, using context, where these substitutions have occurred. Isaiah, Azra Moncada RN - 01/09/2017 1:29 PM PDTWith patient's verbal permission, a copy of the Rehab Team Ko zunigashelly report from 01/08/17 was faxed to his PCP, Dr. Carlos Alberto Galeas, at [facility] in [place], [place]. Ck Miller, PharmD - 01/09/2017 7:54 AM PDT WARFARIN PER PHARMACY PROTOCOL: Subjective/Objective: Deborah Thomason is a 86 y.o. male admitted on 12/31/2016 for orthopedic surgery secondar y to femoral fracture. 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 Patient is receiving warfarin for thromboprophyla xis postop and also for atrial flutter. Surgery date: 12/19/[address] Mancuso Goal INR: 2-3 Enoxaparin bridge: disch Inr>2 none Drug Interactions:Amiodarone (HAT RENOVATOR med) Sensitizers:Age Recent Labs Lab 01/09/17 0631 01/08/17 0554 01/07/17 0638 01/04/17 0638 CREA -- -- -- -- 1.29 HGB -- -- -- -- 10.3* HCT -- -- -- -- 32.2* PLT -- -- -- -- 424 INR 2.14* 1.90* 1.65* < > 1.19* < > = values in this interval not displayed. Date 12/19 12/20 12/21 12/22 12/23 12/24 12/23-12/31 01/01 01/02 01/03 01/04 01/05 01/06 Hgb 10.9 8.7 9.1 7.8 7.7 7.2 - 11.1 - 10.3 - - Hct 33.4 26.5 26.7 23.4 23.1 21.5 - 32.9 - 32.2 - - Platelets 187 158 144 160 195 209 - 441 - 424 - - INR 1.78 1.67 1.82 2.07 2.18 2.28 - 1.15 1.13 1.29 1.32 1.55 Warfarin Dose 3 mg 3 mg 4 mg 3 mg None hold held 3mg 3 mg 5 mg 4 mg 4 mg 4 mg Date 01/07 01/08 01/09 Hgb - - - Hct - - - Platelets - - - INR 1.65 1.9 2.14 Warfarin Dose 5 mg 5 mg 5 mg Assessment: INR is therapeutic (2-3), for atrial flutter. Pt admitted 12/18 with a therapeutic INR, received 5 mg of Vit K in [place] and given F FP to help reverse anticoagulation in preparation for fx repair Was therapeutic on home regimen of 3 mg daily for aflutter/past cva Pt is receiving amiodarone and heparin sc q12h Plan: Warfarin 5 mg x1 Am labs: INR Warfarin education received No; HAT RENOVATOR Will monitor daily Warfarin Dosing Nomogram Warfarin Dosing Expectations Per P&T-approved Electronically signed by: David Mcclendon, [place] 01/09/2017 7:49 Sajan Worrell MD - 01/08/2017 10:22 PM PDT [id number] Rehabilitation Medicine Daily Progress Note Date: 01/08/17 ID/CC: Mr. Thomason is a 86-year-old man with a history of a fib admitted 12/18/16 after a GLF resulti ng in right mid-shaft femoral and left intertrochanteric femur fractures resulting in impair ed mobility, transfers, and self-care. Interval history: Patient did very well with PT yesterday, was able to do 4 stairs, not yet able to do the 8 stairs needed for discharge home. Pain stable. Trialed reducing dose of midodrine this morning, asymptomatic low BP's in afternoon so went back to previous dose. Review of Systems - Constitutional - denies fevers/chills, denies fatigue Eyes - denies diplopia, denies double vision ENT denies sore throat, denies swallowing difficulty Card - denies CP, denies palpitations Pulm - denies dyspnea, cough Abd - denies n/v, denies diarrhea/constipation Vascular - denies swelling, denies cold extremities Neuro -bilateral LE weakness 2/2 fractures MSK - stable bilateral leg pain Endocrine - denies heat/cold intolerance Skin - denies open sores Psych - denies depression, anxiety - Urinary retention, history of BPH All denies rash, denies pruritis Hematologic- denies easy bruising or bleeding, denies weight loss Problem List Patient Active Problem List Diagnosis Atrial flutter Femur fracture, left Femur fracture, right Anticoagulant long-term use Acute diastolic heart failure Acute respiratory failure with hypoxia Atrial flutter with rapid ventricular response Postoperative hemorrhagic shock, initial encounter Elevated INR Delirium Benign prostatic hyperplasia with lower urinary tract symptoms Current Meds: Current Facility-Administered Medications: alteplase (CATHFLO ACTIVASE) injection 2 mg, 2 mg, Intercatheter, PRN, Sajan blanchard MD aluminum & magnesium hydroxide-simethicone (MAALOX PLUS REGULAR STRENGTH) 200-200-20 m g/5 mL suspension 30 mL, 30 mL, Oral, Q4H PRN, Sajan Hernandez MD amiodarone (PACERONE) tablet 200 mg, 200 mg, Oral, Daily, Sajan Hernandez MD, 200 mg at 01/08/17 0808 atorvaSTATin (LIPITOR) tablet 20 mg, 20 mg, Oral, Nightly, Sajan Hernandez MD, 20 mg at 01/08/17 211 bisacodyl (DULCOLAX) suppository 10 mg, 10 mg, Rectal, Daily PRN, Sajan Hernandez MD calcium carbonate (TUMS) chewable tablet 1,000 mg, 1,000 mg, Oral, Q8H PRN, Sajan Hernandez MD docusate sodium (COLACE) capsule 100 mg, 100 mg, Oral, BID PRN, Sajan Hernandez MD , 100 mg at 01/04/17 163 heparin 5,000 units/mL injection 5,000 Units, 5,000 Units, Subcutaneous, 2 times per d ay, Sajan Hernandez MD, 5,000 Units at 01/08/17 211 lidocaine (XYLOCAINE) 2% jelly (uro-jet), , Urethral, 4x Daily PRN, Sajan Hernandez MD methocarbamol (ROBAXIN) tablet 1,000 mg, 1,000 mg, Oral, Q6H PRN, Sajan Hernandez MD, 1,000 mg at 01/05/17 1625 metoprolol tartrate (LOPRESSOR) tablet 12.5 mg, 12.5 mg, Oral, BID, Sajan Hernandez MD, 12.5 mg at 01/08/17 2116 midodrine (PROAMATINE) tablet 10 mg, 10 mg, Oral, TID Early, Sajan Hernandez MD, 1 0 mg at 01/08/17 1755 ondansetron (ZOFRAN ODT) disintegrating tablet 4 mg, 4 mg, Oral, Q6H PRN, Sajan flores MD oxyCODONE (ROXICODONE) tablet 5-10 mg, 5-10 mg, Oral, Q4H PRN, Sajan Hernandez MD, 5 mg at 01/08/17 1002 polyethylene glycol (MIRALAX) powder 17 g, 17 g, Oral, Daily PRN, Sajan Hernandez MD senna (SENOKOT) tablet 8.6 mg, 8.6 mg, Oral, BID PRN, Sajan Hernandez MD, 8.6 mg a t 01/04/17 1632 simethicone (MYLICON) chewable tablet 80 mg, 80 mg, Oral, 4x Daily PRN, Sajan decker MD tamsulosin (FLOMAX) capsule 0.4 mg, 0.4 mg, Oral, Daily after breakfast, Sajan pereira MD, 0.4 mg at 01/08/17 0808 traMADol (ULTRAM) tablet 25 mg, 25 mg, Oral, BID, Sajan Hernandez MD, 25 mg at 1355 warfarin per pharmacy, , Other, Pharmacy Consult, Sajan Hernandez MD Allergies: Allergies Allergen Reactions Lisinopril Not Noted Olmesartan Not Noted Penicillins Not Noted Lips swell eyes swell shut and pruritis Intolerance No active intolerances/contraindications Physical Exam: BP 125/75 | Pulse 104 | Temp 35.8 C (96.4 F) (Oral) | Resp 18 | Ht 1.753 m (5' 9") | Wt 79.6 kg (175 lb 7.8 oz) | SpO2 96% | BMI 25.91 kg/m Gen: AOx3, sitting in bed, NAD CVS: irregular irregular, normal rate, no m/r/g Resp: CTAB, no wheeze, crackles, or rhonchi Abd: Non-distended, non-tender, +BS Neuro: right HE 3+/5, left 3/5, right KE 4+ left 4- Labs: Recent Results (from the past 48 hour(s)) Protime INR Result Value Ref Range PROTIME 19.9 (H) 11.3 - 13.9 seconds INR 1.65 (H) 0.90 - 1.10 Protime INR Result Value Ref Range PROTIME 22.3 (H) 11.3 - 13.9 seconds INR 1.90 (H) 0.90 - 1.10 Most recent FIM scores: Report Date 01/08/2017 FIM BladderScore: 1 FIM Bowel Score: 6 FIM Bed/Chair/Wheelchair Score: 5 FIM Toilet Transfer Score: 4 FIM Tub/Shower Transfer Score: 5 FIM Walk Score: 2 FIM Distance Walked(feet): 50 feet FIM Wheelchair Score: 1 FIM Stairs Score :2 FIM Eating Score: 6 FIM Grooming Score: 5 FIM Bathing Score: 5 FIM Dressing Upper Body Score: 5 FIM Dressing Lower Body Score: 4 FIM Toileting Score: 4 Assessment/Plan: Mr. Thomason is a 86-year-old man with a history of a fib admitted 12/18/16 after a GLF resulti ng in right mid-shaft femoral and left intertrochanteric femur fractures resulting in impair ed mobility, transfers, and self-care. Pt now has deficits in coordination, ambulation, st rength, ADLs, and IADLs. Patients exam also consistent with a moderate peripheral neuropath y, which likely explains the progressively impaired balance the past few years. Patient has multiple co-morbidities, and is medically complex requiring 24hr nursing and MD care but is safe to continue therapies. # Rehabilitation - The patient will receive the following therapies: -- PT: impairments in gait, transfers, bed mobility, ambulation, ROM, strengthening, endura nce. -- OT: impairments in ADLs and iADLs, ROM, strengthening. -- SW: discharge planning #CVS - h/o a. Fib w/ RVR - stable but BP's continue to be on low side despite midodrine. P ho reports he has similar issues with BP at home and often doesn't take atenolol due to low blood pressures -Cont metoprolol 12.5mg BID, hold for SBP<90 -Cont amiodarone -Cont warfarin, H/H has been stable, s/p vit K so may take longer to be theraputic -Cont heparin until INR theraputic -Cont atorvastatin -Cont midodrine TID, started by hospitalist. #Bilateral femur fractures - pain stable -WBAT BLE's -Cont PRN methocarbamol and oxycodone for pain #Resp - resolved hypoxic respiratory failure likely 2/2 volume overload -Daily weights, CVS as above #Delerium - stable, in setting of bilateral femur fractures -Avoid diphenhydramine, benzodiazepines, scopolamine, and metoclopramide. Limit MANAGEMENT PLANNER active medications using lowest effective dose. -Implement environmental modifications (window bed, maintain well-lit room during day, min imize nighttime disturbance, and keep calendars and clock visible). -OOB to chair TID with meals if able. #Urinary retention - has been taking tamsulosin 5 days now -void trial today, if PVR's elevated x3 will place again and increase dose of tamsulosin #DVT prophylaxis: -see CVS above Code Status: No Code. Dispo:home with family 01/22/16, though may be able to d/c sooner given progress yesterday I spent 30 minutes face to face with the patient, with over 50% spent in counseling and/or coordination of care regarding the above plan, and care conference. Signed: Sajan Hernandez MD Portions of this chart may have been created with [employer] voice recognition software. Occasi onal wrong-word or sound-alike substitutions may have occurred due to the inherent ness itations of voice recognition software. Please read the chart carefully and recognize, using context, where these substitutions have occurred. ohl, Ryan Carballo - 01/08/2017 8:23 AM PDT WARFARIN PER PHARMACY PROTOCOL: Subjective/Objective: Deborah Thomason is a 86 y.o. male admitted on 12/31/2016 for orthopedic surgery secondar y to femoral fracture. 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 Patient is receiving warfarin for thromboprophyla xis postop and also for atrial flutter. Surgery date: 12/19/[address] Mancuso Goal INR: 2-3 Enoxaparin bridge: disch Inr>2 none Drug Interactions:Amiodarone (HAT RENOVATOR med) Sensitizers:Age Recent Labs Lab 01/08/17 0554 01/07/17 0638 01/06/17 0632 01/04/17 0638 01/02/17 0632 CREA -- -- -- -- 1.29 -- 1.10 HGB -- -- -- -- 10.3* -- 11.1* HCT -- -- -- -- 32.2* -- 32.9* PLT -- -- -- -- 424 -- 441* INR 1.90* 1.65* 1.55* < > 1.19* < > 1.15* < > = values in this interval not displayed. Date 12/19 12/20 12/21 12/22 12/23 12/24 12/23-12/31 01/01 01/02 01/03 01/04 01/05 01/06 Hgb 10.9 8.7 9.1 7.8 7.7 7.2 - 11.1 - 10.3 - - Hct 33.4 26.5 26.7 23.4 23.1 21.5 - 32.9 - 32.2 - - Platelets 187 158 144 160 195 209 - 441 - 424 - - INR 1.78 1.67 1.82 2.07 2.18 2.28 - 1.15 1.13 1.29 1.32 1.55 Warfarin Dose 3 mg 3 mg 4 mg 3 mg None hold held 3mg 3 mg 5 mg 4 mg 4 mg 4 mg Date 01/07 01/08 Hgb - - Hct - - Platelets - - INR 1.65 1.9 Warfarin Dose 5 mg 5 mg Assessment: INR is subtherapeutic, goal of 2-3, for atrial flutter. Pt admitted 12/18 with a therapeutic INR, received 5 mg of Vit K in [place] and given F FP to help reverse anticoagulation in preparation for fx repair Was therapeutic on home regimen of 3 mg daily for aflutter/past cva Pt is receiving amiodarone and heparin sc q12h Plan: Warfarin 5 mg x1 Am labs: INR Warfarin education received No; HAT RENOVATOR Will monitor daily Warfarin Dosing Nomogram Electronically signed by: Ck Newman PharmD 01/08/2017 8:23 Azra Colon RN - 01/07/2017 1:25 PM PDTWit h patient's verbal permission, a copy of the Rehab Team Conference report from 01/04/17 was f axed to his PCP, Dr. Carlos Alberto Galeas, at [facility] in [place], [place].Electro nically signed by Azra Payan RN at 01/07/2017 1:26 PM Ck Suarez PharmD - 12/20 1:15 PM PDT WARFARIN PER PHARMACY PROTOCOL: Subjective/Objective: Deborah Thomason is a 86 y.o. male admitted on 12/31/2016 for orthopedic surgery secondar y to femoral fracture. 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 Patient is receiving warfarin for thromboprophyla xis postop and also for atrial flutter. Surgery date: 12/19/[address] Mancuso Goal INR: 2-3 Enoxaparin bridge: disch Inr>2 none Drug Interactions:Amiodarone (HAT RENOVATOR med) Sensitizers:Age Recent Labs Lab 01/07/17 0638 01/06/17 0632 01/05/17 0631 01/04/17 0638 01/02/17 0632 01/01/17 0610 CREA -- -- -- 1.29 -- 1.10 1.10 HGB -- -- -- 10.3* -- 11.1* -- HCT -- -- -- 32.2* -- 32.9* -- PLT -- -- -- 424 -- 441* -- INR 1.65* 1.55* 1.32* 1.19* < > 1.15* -- < > = values in this interval not displayed. Date 12/19 12/20 12/21 12/22 12/23 12/24 12/23-12/31 01/01 01/02 01/03 01/04 01/05 01/06 Hgb 10.9 8.7 9.1 7.8 7.7 7.2 - 11.1 - 10.3 - - Hct 33.4 26.5 26.7 23.4 23.1 21.5 - 32.9 - 32.2 - - Platelets 187 158 144 160 195 209 - 441 - 424 - - INR 1.78 1.67 1.82 2.07 2.18 2.28 - 1.15 1.13 1.29 1.32 1.55 Warfarin Dose 3 mg 3 mg 4 mg 3 mg None hold held 3mg 3 mg 5 mg 4 mg 4 mg 4 mg Date 01/07 Hgb - Hct - Platelets - INR 1.65 Warfarin Dose 5 mg Assessment: INR is subtherapeutic Patient being restartetd on warfarin for thromboprophylaxis s/p bilateral femur fx repai r and Pt admitted 12/18 with a therapeutic INR, received 5 mg of Vit K in [place] and given F FP to help reverse anticoagulation in preparation for fx repair Was therapeutic on home regimen of 3 mg daily for aflutter/past cva Pt is receiving amiodarone and heparin sc q12h Plan: Warfarin 5 mg x1 Am labs: INR Warfarin education received No; HAT RENOVATOR Will monitor daily Warfarin Dosing Nomogram Electronically signed by: David Mcclendon, [place] 01/07/2017 12:59 AMoSajan pereira MD - 01/07/2017 12:31 PM PDT [id number] Rehabilitation Medicine Daily Progress Note Date: 01/07/17 ID/CC: Mr. Thomason is a 86-year-old man with a history of a fib admitted 12/18/16 after a GLF resulti ng in right mid-shaft femoral and left intertrochanteric femur fractures resulting in impair ed mobility, transfers, and self-care. Interval history: Patient did well over the weekend, continues to have pain with tranfers and mobilizing, no narcotics requested yesterday. Did have a lower back muscle spasms on Sat, with resolved wi th muscle relaxer. Souza still in place, plan to remove tomorrow for another void trial after being on flowmax for 5 days. Review of Systems - Constitutional - denies fevers/chills, denies fatigue Eyes - denies diplopia, denies double vision ENT denies sore throat, denies swallowing difficulty Card - denies CP, denies palpitations Pulm - denies dyspnea, cough Abd - denies n/v, denies diarrhea/constipation Vascular - denies swelling, denies cold extremities Neuro -bilateral LE weakness 2/2 fractures MSK - stable bilateral leg pain Endocrine - denies heat/cold intolerance Skin - denies open sores Psych - denies depression, anxiety - Urinary retention, history of BPH All denies rash, denies pruritis Hematologic- denies easy bruising or bleeding, denies weight loss Problem List Patient Active Problem List Diagnosis Atrial flutter Femur fracture, left Femur fracture, right Anticoagulant long-term use Acute diastolic heart failure Acute respiratory failure with hypoxia Atrial flutter with rapid ventricular response Postoperative hemorrhagic shock, initial encounter Elevated INR Delirium Current Meds: Current Facility-Administered Medications: alteplase (CATHFLO ACTIVASE) injection 2 mg, 2 mg, Intercatheter, PRN, Sajan blanchard MD aluminum & magnesium hydroxide-simethicone (MAALOX PLUS REGULAR STRENGTH) 200-200-20 m g/5 mL suspension 30 mL, 30 mL, Oral, Q4H PRN, Sajan Hernandez MD amiodarone (PACERONE) tablet 200 mg, 200 mg, Oral, Daily, Sajan Hernandez MD, 200 mg at 01/07/17914 atorvaSTATin (LIPITOR) tablet 20 mg, 20 mg, Oral, Nightly, Sajan Hernandez MD, 20 mg at 01/06/172036 bisacodyl (DULCOLAX) suppository 10 mg, 10 mg, Rectal, Daily PRN, Sajan Hernandez MD calcium carbonate (TUMS) chewable tablet 1,000 mg, 1,000 mg, Oral, Q8H PRN, Sajan Hernandez MD docusate sodium (COLACE) capsule 100 mg, 100 mg, Oral, BID PRN, Sajan Hernandez MD , 100 mg at 01/04/17 1632 heparin 5,000 units/mL injection 5,000 Units, 5,000 Units, Subcutaneous, 2 times per d ay, Sajan Hernandez MD, 5,000 Units at 01/07/17 0914 lidocaine (XYLOCAINE) 2% jelly (uro-jet), , Urethral, 4x Daily PRN, Sajan Hernandez MD methocarbamol (ROBAXIN) tablet 1,000 mg, 1,000 mg, Oral, Q6H PRN, Sajan Hernandez MD, 1,000 mg at 01/05/17 1625 metoprolol tartrate (LOPRESSOR) tablet 12.5 mg, 12.5 mg, Oral, BID, Sajan Hernandez MD, 12.5 mg at 01/07/17 0915 midodrine (PROAMATINE) tablet 10 mg, 10 mg, Oral, TID Early, Sajan Hernandez MD, 1 0 mg at 01/07/17 0608 ondansetron (ZOFRAN ODT) disintegrating tablet 4 mg, 4 mg, Oral, Q6H PRN, Sajan flores MD oxyCODONE (ROXICODONE) tablet 5-10 mg, 5-10 mg, Oral, Q4H PRN, Sajan Hernandez MD, 5 mg at 01/05/17 1513 polyethylene glycol (MIRALAX) powder 17 g, 17 g, Oral, Daily PRN, Sajan Hernandez MD senna (SENOKOT) tablet 8.6 mg, 8.6 mg, Oral, BID PRN, Sajan Hernandez MD, 8.6 mg a t 01/04/17 1632 simethicone (MYLICON) chewable tablet 80 mg, 80 mg, Oral, 4x Daily PRN, Sajan decker MD tamsulosin (FLOMAX) capsule 0.4 mg, 0.4 mg, Oral, Daily after breakfast, Sajan pereira MD, 0.4 mg at 01/07/17 0915 traMADol (ULTRAM) tablet 25 mg, 25 mg, Oral, BID, Sajan Hernandez MD, 25 mg at 0915 warfarin per pharmacy, , Other, Pharmacy Consult, Sajan Hernandez MD Allergies: Allergies Allergen Reactions Lisinopril Not Noted Olmesartan Not Noted Penicillins Not Noted Lips swell eyes swell shut and pruritis Intolerance No active intolerances/contraindications Physical Exam: BP 122/66 | Pulse 85 | Temp 36.3 C (97.3 F) (Oral) | Resp 16 | Ht 1.753 m (5' 9") | Wt 80.6 kg (177 lb 9.6 oz) | SpO2 95% | BMI 26.23 kg/m Gen: AOx3, sitting in bed, NAD CVS: irregular irregular, normal rate, no m/r/g Resp: CTAB, no wheeze, crackles, or rhonchi Abd: Non-distended, non-tender, +BS Neuro: bilateral HF and right KE 1/5, left KE 2/5 Labs: Recent Results (from the past 48 hour(s)) Protime INR Result Value Ref Range PROTIME 19.0 (H) 11.3 - 13.9 seconds INR 1.55 (H) 0.90 - 1.10 Extra Green Top Tube Result Value Ref Range Extra Green Top Tube Done Extra Lavender Top Tube Result Value Ref Range Extra Lavender Top Tube Done Protime INR Result Value Ref Range PROTIME 19.9 (H) 11.3 - 13.9 seconds INR 1.65 (H) 0.90 - 1.10 Most recent FIM scores: Report Date 01/07/2017 FIM BladderScore: 1 FIM Bowel Score: 6 FIM Bed/Chair/Wheelchair Score: 3 FIM Toilet Transfer Score: 4 FIM Tub/Shower Transfer Score: 5 FIM Walk Score: 1 FIM Distance Walked(feet): 20 feet FIM Wheelchair Score: 1 FIM Stairs Score :1 FIM Eating Score: 6 FIM Grooming Score: 5 FIM Bathing Score: 5 FIM Dressing Upper Body Score: 5 FIM Dressing Lower Body Score: 4 FIM Toileting Score: 4 Assessment/Plan: Mr. Thomason is a 86-year-old man with a history of a fib admitted 12/18/16 after a GLF resulti ng in right mid-shaft femoral and left intertrochanteric femur fractures resulting in impair ed mobility, transfers, and self-care. Pt now has deficits in coordination, ambulation, st rength, ADLs, and IADLs. Patients exam also consistent with a moderate peripheral neuropath y, which likely explains the progressively impaired balance the past few years. Patient has multiple co-morbidities, and is medically complex requiring 24hr nursing and MD care but is safe to continue therapies. # Rehabilitation - The patient will receive the following therapies: -- PT: impairments in gait, transfers, bed mobility, ambulation, ROM, strengthening, endura nce. -- OT: impairments in ADLs and iADLs, ROM, strengthening. -- SW: discharge planning #CVS - h/o a. Fib w/ RVR - stable but BP's continue to be on low side despite midodrine -Cont metoprolol 12.5mg BID -Cont amiodarone -Cont warfarin, H/H has been stable, s/p vit K so may take longer to be theraputic -Cont heparin until INR theraputic, INR 1.65 today -Cont atorvastatin -Cont midodrine TID, started by hospitalist. #Bilateral femur fractures - pain stable -WBAT BLE's -Cont PRN methocarbamol and oxycodone for pain #Resp - resolved hypoxic respiratory failure likely 2/2 volume overload -Daily weights, CVS as above #Delerium - stable, in setting of bilateral femur fractures -Avoid diphenhydramine, benzodiazepines, scopolamine, and metoclopramide. Limit MANAGEMENT PLANNER active medications using lowest effective dose. -Implement environmental modifications (window bed, maintain well-lit room during day, min imize nighttime disturbance, and keep calendars and clock visible). -OOB to chair TID with meals if able. #Urinary retention - U/A normal on admit, given age most likely BPH. -cont souza for today, repeat void trial tomorrow -Cont. tamsulosin 0.4mg daily #DVT prophylaxis: -see CVS above Code Status: No Code. Dispo:home with family 01/22/16 I spent 20 minutes face to face with the patient, with over 50% spent in counseling and/or coordination of care regarding the above plan. Signed: Sajan Hernandez MD Portions of this chart may have been created with [employer] voice recognition software. Occasi onal wrong-word or sound-alike substitutions may have occurred due to the inherent ness itations of voice recognition software. Please read the chart carefully and recognize, using context, where these substitutions have occurred. olph, Kaylene Bartlett PH - 01/06/2017 9:54 AM PDT WARFARIN PER PHARMACY PROTOCOL: Subjective/Objective: Deborah Thomason is a 86 y.o. male admitted on 12/31/2016 for orthopedic surgery secondar y to femoral fracture. 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 Patient is receiving warfarin for thromboprophyla xis postop and also for atrial flutter. Surgery date: 12/19/[address] Mancuso Goal INR: 2-3 Enoxaparin bridge: disch Inr>2 none Drug Interactions:Amiodarone (HAT RENOVATOR med) Sensitizers:Age Recent Labs Lab 01/06/17 0632 01/05/17 0631 01/04/17 0638 01/02/17 0632 01/01/17 0610 12/31/16 0621 CREA -- -- 1.29 -- 1.10 1.10 1.19 HGB -- -- 10.3* -- 11.1* -- 10.6* HCT -- -- 32.2* -- 32.9* -- 32.1* PLT -- -- 424 -- 441* -- 389 INR 1.55* 1.32* 1.19* < > 1.15* -- 1.12* < > = values in this interval not displayed. Date 12/19 12/20 12/21 12/22 12/23 12/24 12/23-12/31 01/01 01/02 01/03 01/04 01/05 6/18 Hgb 10.9 8.7 9.1 7.8 7.7 7.2 - 11.1 - 10.3 - - Hct 33.4 26.5 26.7 23.4 23.1 21.5 - 32.9 - 32.2 - - Platelets 187 158 144 160 195 209 - 441 - 424 - - INR 1.78 1.67 1.82 2.07 2.18 2.28 - 1.15 1.13 1.29 1.32 1.55 Warfarin Dose 3 mg 3 mg 4 mg 3 mg None hold held 3mg 3 mg 5 mg 4 mg 4 mg 4 mg Assessment: INR is subtherapeutic Patient being restartetd on warfarin for thromboprophylaxis s/p bilateral femur fx repai r and Pt admitted 12/18 with a therapeutic INR, received 5 mg of Vit K in [place] and given F FP to help reverse anticoagulation in preparation for fx repair Was therapeutic on home regimen of 3 mg daily for aflutter/past cva Warfarin was held for low h/h due to blood loss anemia from surgery Pt is receiving amiodarone and heparin sc q12h INR expected to be subtherapeutic for a few days d/t dose being held for 9 days Plan: Warfarin 4 mg x1 Am labs: INR Warfarin education received No; HAT RENOVATOR Will monitor daily Warfarin Dosing Nomogram Warfarin Dosing Expectations Per P&T-approved obis Radha crenshaw, PharmD - 01/05/2017 12:17 PM PDTFormatting of this note might be different from t he original. WARFARIN PER PHARMACY PROTOCOL: Subjective/Objective: Deborah Thomason is a 86 y.o. male admitted on 12/31/2016 for orthopedic surgery secondar y to femoral fracture. 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 Patient is receiving warfarin for thromboprophyla xis postop and also for atrial flutter. Surgery date: 12/19/2016 [x]Fx []THR []TKR Dr. Mancuso Goal INR: 2-3 Enoxaparin bridge: []disch [x]Inr>2 []none Drug Interactions:Amiodarone (HAT RENOVATOR med) Sensitizers:Age Recent Labs Lab 01/05/17 0631 01/04/17 0638 01/03/17 0638 01/02/17 0632 01/01/17 0610 12/31/16 0621 HGB -- 10.3* -- 11.1* -- 10.6* HCT -- 32.2* -- 32.9* -- 32.1* PLT -- 424 -- 441* -- 389 CREA -- 1.29 -- 1.10 1.10 1.19 INR 1.32* 1.19* 1.13* 1.15* -- 1.12* Date 12/19 12/20 12/21 12/22 12/23 12/24 12/23-12/31 01/01 01/02 01/03 01/04 01/05 Hgb 10.9 8.7 9.1 7.8 7.7 7.2 - 11.1 - 10.3 - Hct 33.4 26.5 26.7 23.4 23.1 21.5 - 32.9 - 32.2 - Platelets 187 158 144 160 195 209 - 441 - 424 - INR 1.78 1.67 1.82 2.07 2.18 2.28 - 1.15 1.13 1.29 1.32 Warfarin Dose 3 mg 3 mg 4 mg 3 mg None hold held 3mg 3 mg 5 mg 4 mg 4 mg Assessment: INR is subtherapeutic Patient being restartetd on warfarin for thromboprophylaxis s/p bilateral femur fx repai r and Pt admitted 12/18 with a therapeutic INR, received 5 mg of Vit K in [place] and given F FP to help reverse anticoagulation in preparation for fx repair Was therapeutic on home regimen of 3 mg daily for aflutter/past cva Warfarin was held for low h/h due to blood loss anemia from surgery Pt is receiving amiodarone and heparin sc q12h INR expected to be subtherapeutic for a few days d/t dose being held for 9 days Plan: Warfarin 4 mg x1 Am labs: INR Warfarin education received No; HAT RENOVATOR Will monitor daily Warfarin Dosing Nomogram Warfarin Dosing Expectations Per P&T-approved Radha Doherty PharmD 01/05/2017 12:17 Radha Ferrer, Ph armD - 01/04/2017 12:23 PM PDT WARFARIN PER PHARMACY PROTOCOL: Subjective/Objective: Deborah Thomason is a 86 y.o. male admitted on 12/31/2016 for orthopedic surgery secondar y to femoral fracture. 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 Patient is receiving warfarin for thromboprophyla xis postop and also for atrial flutter. Surgery date: 12/19/2016 [x]Fx []THR []TKR Dr. Mancuso Goal INR: 2-3 Enoxaparin bridge: []disch [x]Inr>2 []none Drug Interactions:Amiodarone (HAT RENOVATOR med) Sensitizers:Age Recent Labs Lab 01/04/17 0638 01/03/17 0638 01/02/17 0632 01/01/17 0610 12/31/16 0621 HGB 10.3* -- 11.1* -- 10.6* HCT 32.2* -- 32.9* -- 32.1* PLT 424 -- 441* -- 389 CREA 1.29 -- 1.10 1.10 1.19 INR 1.19* 1.13* 1.15* -- 1.12* Date 12/19 12/20 6/2 6/12/23-12/31 01/01 01/02 01/03 01/04 Hgb 10.9 8.7 9.1 7.8 7.7 7.2 - 11.1 - 10.3 Hct 33.4 26.5 26.7 23.4 23.1 21.5 - 32.9 - 32.2 Platelets 187 158 144 160 195 209 - 441 - 424 INR 1.78 1.67 1.82 2.07 2.18 2.28 - 1.15 1.13 1.29 Warfarin Dose 3 mg 3 mg 4 mg 3 mg None hold held 3mg 3 mg 5 mg 4 mg Assessment: INR is subtherapeutic Patient being restartetd on warfarin for thromboprophylaxis s/p bilateral femur fx repai r and Pt admitted 12/18 with a therapeutic INR, received 5 mg of Vit K in [place] and given F FP to help reverse anticoagulation in preparation for fx repair Was therapeutic on home regimen of 3 mg daily for aflutter/past cva Warfarin was held for low h/h due to blood loss anemia from surgery Pt is receiving amiodarone and heparin sc q12h INR expected to be subtherapeutic for a few days d/t dose being held for 9 days Plan: Warfarin 4 mg x1 Am labs: INR Warfarin education received No; HAT RENOVATOR Will monitor daily Warfarin Dosing Nomogram Warfarin Dosing Expectations Per P&T-approved Radha Doherty, PharmD 01/04/2017 12:23 Sajan Worrell MD - 01/03/2017 4:59 PM PDT [id number] Daily Progress Note Date: 01/03/17 ID/CC: Mr. Thomason is a 86-year-old man with a history of a fib admitted 12/18/16 after a GLF resulti ng in right mid-shaft femoral and left intertrochanteric femur fractures resulting in impair ed mobility, transfers, and self-care. Interval history: Continues to have urinary retention, requiring intermittent cath, reports history of BPH, B P's improved today. Pain stable Review of Systems - Constitutional - denies fevers/chills, denies fatigue Eyes - denies diplopia, denies double vision ENT denies sore throat, denies swallowing difficulty Card - denies CP, denies palpitations Pulm - denies dyspnea, cough Abd - denies n/v, denies diarrhea/constipation Vascular - denies swelling, denies cold extremities Neuro -bilateral LE weakness 2/2 fractures MSK - stable bilateral leg pain Endocrine - denies heat/cold intolerance Skin - denies open sores Psych - denies depression, anxiety - Urinary retention, history of BPH All denies rash, denies pruritis Hematologic- denies easy bruising or bleeding, denies weight loss Problem List Patient Active Problem List Diagnosis Atrial flutter Femur fracture, left Femur fracture, right Anticoagulant long-term use Acute diastolic heart failure Acute respiratory failure with hypoxia Atrial flutter with rapid ventricular response Postoperative hemorrhagic shock, initial encounter Elevated INR Delirium Current Meds: Current Facility-Administered Medications: acetaminophen (TYLENOL) tablet 650 mg, 650 mg, Oral, Q4H PRN, Sajan Hernandez MD alteplase (CATHFLO ACTIVASE) injection 2 mg, 2 mg, Intercatheter, PRN, Sajan blanchard MD aluminum & magnesium hydroxide-simethicone (MAALOX PLUS REGULAR STRENGTH) 200-200-20 m g/5 mL suspension 30 mL, 30 mL, Oral, Q4H PRN, Sajan Hernandez MD amiodarone (PACERONE) tablet 200 mg, 200 mg, Oral, Daily, Sajan Hernandez MD, 200 mg at 01/03/17 1109 atorvaSTATin (LIPITOR) tablet 20 mg, 20 mg, Oral, Nightly, Sajan Hernandez MD, 20 mg at 01/02/172020 bisacodyl (DULCOLAX) suppository 10 mg, 10 mg, Rectal, Daily PRN, Sajan Hernandez MD calcium carbonate (TUMS) chewable tablet 1,000 mg, 1,000 mg, Oral, Q8H PRN, Sajan Hernandez MD docusate sodium (COLACE) capsule 100 mg, 100 mg, Oral, BID PRN, Sajan Hernandez MD , 100 mg at 01/03/17 1109 heparin 5,000 units/mL injection 5,000 Units, 5,000 Units, Subcutaneous, 2 times per d ay, Sajan Hernandez MD, 5,000 Units at 01/03/17 1109 lidocaine (XYLOCAINE) 2% jelly (uro-jet), , Urethral, 4x Daily PRN, Sajan Hernandez MD metoprolol tartrate (LOPRESSOR) tablet 25 mg, 25 mg, Oral, BID, Sajan Hernandez MD , 25 mg at 01/03/17 1109 midodrine (PROAMATINE) tablet 10 mg, 10 mg, Oral, TID Early, Sajan Hernandez MD, 1 0 mg at 01/03/17 1321 ondansetron (ZOFRAN ODT) disintegrating tablet 4 mg, 4 mg, Oral, Q6H PRN, Sajan flores MD oxyCODONE (ROXICODONE) tablet 5-10 mg, 5-10 mg, Oral, Q4H PRN, Sajan Hernandez MD, 5 mg at 01/03/17 1446 polyethylene glycol (MIRALAX) powder 17 g, 17 g, Oral, Daily PRN, Sajan Hernandez MD senna (SENOKOT) tablet 8.6 mg, 8.6 mg, Oral, BID PRN, Sajan Hernandez MD, 8.6 mg a t 01/03/17 1109 simethicone (MYLICON) chewable tablet 80 mg, 80 mg, Oral, 4x Daily PRN, Sajan decker MD tamsulosin (FLOMAX) capsule 0.4 mg, 0.4 mg, Oral, Daily after breakfast, Sajan pereira MD, 0.4 mg at 01/03/17 1322 warfarin (COUMADIN) tablet 5 mg, 5 mg, Oral, Once - Warfarin, Radha Doherty, PharmD warfarin per pharmacy, , Other, Pharmacy Consult, Sajan Hernandez MD Allergies: Allergies Allergen Reactions Lisinopril Not Noted Olmesartan Not Noted Penicillins Not Noted Lips swell eyes swell shut and pruritis Intolerance No active intolerances/contraindications Physical Exam: BP 112/63 | Pulse 85 | Temp 36.3 C (97.3 F) (Oral) | Resp 16 | Ht 1.753 m (5' 9") | Wt 76.7 kg (169 lb 1.5 oz) | SpO2 95% | BMI 24.97 kg/m Gen: AOx3, sitting in bed, NAD CVS: rrr, no m/r/g Resp: CTAB, no wheeze, crackles, or rhonchi Abd: Non-distended, non-tender, +BS Neuro: bilateral HF and KE 1/5, Labs: Recent Results (from the past 48 hour(s)) Protime INR Result Value Ref Range PROTIME 15.0 (H) 11.3 - 13.9 seconds INR 1.15 (H) 0.90 - 1.10 CBC with Differential Result Value Ref Range WBC 7.9 4.0 - 11.0 K/uL RBC 3.71 (L) 4.30 - 5.70 M/uL Hgb 11.1 (L) 13.5 - 18.0 g/dL Hct 32.9 (L) 40.0 - 51.0 % MCV 88.8 83.0 - 101.0 fL MCH 29.9 28.0 - 35.0 pg MCHC 33.6 32.0 - 36.0 g/dL RDW-CV 16.3 (H) <15.0 % Platelet Count 441 (H) 140 - 440 K/uL MPV 8.1 fL % Neutrophils 76.5 45.0 - 82.0 % % Lymphocytes 6.0 (L) 20.0 - 45.0 % % Monocytes 9.5 4.0 - 12.0 % % Eosinophils 7.0 (H) 0.0 - 5.0 % % Basophils 1.0 0.0 - 1.0 % Absolute Neutrophils 6.00 1.80 - 8.50 K/uL Absolute Lymphocytes 0.50 (L) 0.60 - 3.20 K/uL Absolute Monocytes 0.70 0.00 - 1.00 K/uL Absolute Eosinophils 0.60 (H) 0.00 - 0.40 K/uL Absolute Basophils 0.10 0.00 - 0.10 K/uL Basic Metabolic Panel Result Value Ref Range NA 136 136 - 149 mmol/L K 3.6 3.5 - 5.1 mmol/L CL 101 98 - 109 mmol/L CO2 28 24 - 31 mmol/L ANION GAP 7 3 - 16 mmol/L GLUCOSE 87 70 - 109 mg/dL BUN 15 7 - 18 mg/dL Creatinine, Serum/Plasma 1.10 0.60 - 1.30 mg/dL eGFR if not >60 >=60 mL/min/1.73m2 CALCIUM 8.7 8.3 - 10.5 mg/dL BUN/CREA 13.6 B Type Natriuretic Peptide Result Value Ref Range BNP 693 (H) <100 pg/mL Protime INR Result Value Ref Range PROTIME 14.8 (H) 11.3 - 13.9 seconds INR 1.13 (H) 0.90 - 1.10 Most recent FIM scores: Report Date 01/03/2017 FIM BladderScore: 1 FIM Bowel Score: 2 FIM Bed/Chair/Wheelchair Score: 1 FIM Toilet Transfer Score: 1 FIM Tub/Shower Transfer Score: 1 FIM Walk Score: 1 FIM Distance Walked(feet): 5 feet FIM Wheelchair Score: 1 FIM Stairs Score :1 FIM Eating Score: 5 FIM Grooming Score: 5 FIM Bathing Score: 4 FIM Dressing Upper Body Score: FIM Dressing Lower Body Score: FIM Toileting Score: 1 Assessment/Plan: Mr. Thomason is a 86-year-old man with a history of a fib admitted 12/18/16 after a GLF resulti ng in right mid-shaft femoral and left intertrochanteric femur fractures resulting in impair ed mobility, transfers, and self-care. Pt now has deficits in coordination, ambulation, st rength, ADLs, and IADLs. Patients exam also consistent with a moderate peripheral neuropath y, which likely explains the progressively impaired balance the past few years. Patient has multiple co-morbidities, and is medically complex requiring 24hr nursing and MD care but is safe to continue therapies # Rehabilitation - The patient will receive the following therapies: -- PT: impairments in gait, transfers, bed mobility, ambulation, ROM, strengthening, endura nce. -- OT: impairments in ADLs and iADLs, ROM, strengthening. -- SW: discharge planning #CVS - h/o a. Fib w/ RVR - stable but BP's continue to be on low side despite midodrine -Cont metoprolol 25mg BID -Cont amiodarone -Cont warfarin, as H/H has been stable, s/p vit K so may take longer to be theraputic -Cont heparin until INR theraputic -Cont atorvastatin #Resp - resolved hypoxic respiratory failure likely 2/2 volume overload -Daily weights, CVS as above #Delerium - stable, in setting of bilateral femur fractures -Avoid diphenhydramine, benzodiazepines, scopolamine, and metoclopramide. Limit MANAGEMENT PLANNER active medications using lowest effective dose. -Implement environmental modifications (window bed, maintain well-lit room during day, min imize nighttime disturbance, and keep calendars and clock visible). -OOB to chair TID with meals if able. #Urinary retention - U/A normal on admit, given age most likely BPH. Place souza again -Start tamsulosin 0.4mg daily #Bilateral femur fractures - pain stable -WBAT BLE's -Cont PRN and oxycodone for pain #DVT prophylaxis: -see CVS above Code Status: No Code. Dispo:home with family I spent 20 minutes face to face with the patient, with over 50% spent in counseling and/or coordination of care regarding the above plan. Signed: Sajan Hernandez MD Portions of this chart may have been created with [employer] voice recognition software. Occasi onal wrong-word or sound-alike substitutions may have occurred due to the inherent ness itations of voice recognition software. Please read the chart carefully and recognize, using context, where these substitutions have occurred. adha Doherty P harmD - 01/03/2017 12:25 PM PDT WARFARIN PER PHARMACY PROTOCOL: Subjective/Objective: Deborah Thomason is a 86 y.o. male admitted on 12/31/2016 for orthopedic surgery secondar y to femoral fracture. 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 Patient is receiving warfarin for thromboprophyla xis postop and also for atrial flutter. Surgery date: 12/19/2016 [x]Fx []THR []TKR Dr. Mancuso Goal INR: 2-3 Enoxaparin bridge: []disch [x]Inr>2 []none Drug Interactions:Amiodarone (HAT RENOVATOR med) Sensitizers:Age Recent Labs Lab 01/03/17 0638 01/02/17 0632 01/01/17 0610 12/31/16 0621 12/30/16 0518 HGB -- 11.1* -- 10.6* 10.0* HCT -- 32.9* -- 32.1* 30.4* PLT -- 441* -- 389 367 CREA -- 1.10 1.10 1.19 1.14 INR 1.13* 1.15* -- 1.12* 1.16* Date 12/19 12/20 12/21 12/22 12/23 12/24 12/23-12/31 01/01 01/02 01/03 Hgb 10.9 8.7 9.1 7.8 7.7 7.2 - 11.1 - Hct 33.4 26.5 26.7 23.4 23.1 21.5 - 32.9 - Platelets 187 158 144 160 195 209 - 441 - INR 1.78 1.67 1.82 2.07 2.18 2.28 - 1.15 1.13 Warfarin Dose 3 mg 3 mg 4 mg 3 mg None hold held 3mg 3 mg 5 mg Assessment: INR is subtherapeutic Patient being restartetd on warfarin for thromboprophylaxis s/p bilateral femur fx repai r and Pt admitted 12/18 with a therapeutic INR, received 5 mg of Vit K in [place] and given F FP to help reverse anticoagulation in preparation for fx repair Was therapeutic on home regimen of 3 mg daily for aflutter/past cva Warfarin was held for low h/h due to blood loss anemia from surgery Pt is receiving amiodarone and heparin sc q12h INR expected to be subtherapeutic for a few days d/t dose being held for 9 days Plan: Warfarin 5 mg x1 Am labs: INR Warfarin education received No; HAT RENOVATOR Will monitor daily Warfarin Dosing Nomogram Warfarin Dosing Expectations Per P&T-approved Radha Doherty, PharmD 01/03/2017 12:25 Sajan Worrell MD - 01/02/2017 8:30 PM PDT [id number] Medicine Daily Progress Note Date: 01/02/17 ID/CC: Mr. Thomason is a 86-year-old man with a history of a fib admitted 12/18/16 after a GLF resulti ng in right mid-shaft femoral and left intertrochanteric femur fractures resulting in impair ed mobility, transfers, and self-care. Interval history: No overnight events, has had surprisingly little pain. Has started doing some stairs in // bars which is a major need for safe d/c home. Continues to have urinary retention Review of Systems - Constitutional - denies fevers/chills, denies fatigue Eyes - denies diplopia, denies double vision ENT denies sore throat, denies swallowing difficulty Card - denies CP, denies palpitations Pulm - denies dyspnea, cough Abd - denies n/v, denies diarrhea/constipation Vascular - denies swelling, denies cold extremities Neuro -bilateral LE weakness 2/2 fractures MSK - stable bilateral leg pain Endocrine - denies heat/cold intolerance Skin - denies open sores Psych - denies depression, anxiety - Urinary retention today All denies rash, denies pruritis Hematologic- denies easy bruising or bleeding, denies weight loss Problem List Patient Active Problem List Diagnosis Atrial flutter Femur fracture, left Femur fracture, right Anticoagulant long-term use Acute diastolic heart failure Acute respiratory failure with hypoxia Atrial flutter with rapid ventricular response Postoperative hemorrhagic shock, initial encounter Elevated INR Delirium Current Meds: Current Facility-Administered Medications: acetaminophen (TYLENOL) tablet 650 mg, 650 mg, Oral, Q4H PRN, Sajan Hernandez MD alteplase (CATHFLO ACTIVASE) injection 2 mg, 2 mg, Intercatheter, PRN, Sajan blanchard MD aluminum & magnesium hydroxide-simethicone (MAALOX PLUS REGULAR STRENGTH) 200-200-20 m g/5 mL suspension 30 mL, 30 mL, Oral, Q4H PRN, Sajan Hernandez MD amiodarone (PACERONE) tablet 200 mg, 200 mg, Oral, Daily, Sajan Hernandez MD, 200 mg at 01/02/17 08 atorvaSTATin (LIPITOR) tablet 20 mg, 20 mg, Oral, Nightly, Sajan Hernandez MD, 20 mg at 01/02/172020 bisacodyl (DULCOLAX) suppository 10 mg, 10 mg, Rectal, Daily PRN, Sajan Hernandez MD calcium carbonate (TUMS) chewable tablet 1,000 mg, 1,000 mg, Oral, Q8H PRN, Sajan Hernandez MD docusate sodium (COLACE) capsule 100 mg, 100 mg, Oral, BID PRN, Sajan Hernandez MD heparin 5,000 units/mL injection 5,000 Units, 5,000 Units, Subcutaneous, 2 times per d ay, Sajan Hernandez MD, 5,000 Units at 01/02/172020 lidocaine (XYLOCAINE) 2% jelly (uro-jet), , Urethral, 4x Daily PRN, Sajan Hernandez MD metoprolol tartrate (LOPRESSOR) tablet 25 mg, 25 mg, Oral, BID, Sajan Hernandez MD , 25 mg at 01/02/172020 midodrine (PROAMATINE) tablet 10 mg, 10 mg, Oral, TID Early, Sajan Hernandez MD, 1 0 mg at 01/02/17 172 ondansetron (ZOFRAN ODT) disintegrating tablet 4 mg, 4 mg, Oral, Q6H PRN, Sajan flores MD oxyCODONE (ROXICODONE) tablet 5-10 mg, 5-10 mg, Oral, Q4H PRN, Sajan Hernandez MD, 5 mg at 01/02/17 1507 polyethylene glycol (MIRALAX) powder 17 g, 17 g, Oral, Daily PRN, Sajan Hernandez MD senna (SENOKOT) tablet 8.6 mg, 8.6 mg, Oral, BID PRN, Sajan Hernandez MD simethicone (MYLICON) chewable tablet 80 mg, 80 mg, Oral, 4x Daily PRN, Sajan decker MD warfarin (COUMADIN) tablet 3 mg, 3 mg, Oral, Daily - Warfarin, Ora Aranda, [facility], 3 m g at 01/02/17 172 warfarin per pharmacy, , Other, Pharmacy Consult, Sajan Hernandez MD Allergies: Allergies Allergen Reactions Lisinopril Not Noted Olmesartan Not Noted Penicillins Not Noted Lips swell eyes swell shut and pruritis Intolerance No active intolerances/contraindications Physical Exam: BP 130/80 | Pulse 100 | Temp 36.2 C (97.2 F) (Oral) | Resp 18 | Ht 1.753 m (5' 9") | Wt 76.7 kg (169 lb 1.5 oz) | SpO2 95% | BMI 24.97 kg/m Gen: AOx3, sitting in bed, NAD CVS: rrr, no m/r/g Resp: CTAB, no wheeze, crackles, or rhonchi Abd: Non-distended, non-tender, +BS Neuro: bilateral HF and KE 1/5, Labs: Recent Results (from the past 48 hour(s)) Comprehensive Metabolic Panel Result Value Ref Range NA 136 136 - 149 mmol/L K 3.5 3.5 - 5.1 mmol/L CL 100 98 - 109 mmol/L CO2 27 24 - 31 mmol/L ANION GAP 9 3 - 16 mmol/L GLUCOSE 99 70 - 109 mg/dL BUN 19 (H) 7 - 18 mg/dL Creatinine, Serum/Plasma 1.10 0.60 - 1.30 mg/dL eGFR if not >60 >=60 mL/min/1.73m2 CALCIUM 8.7 8.3 - 10.5 mg/dL ALBUMIN 2.2 (L) 3.2 - 5.0 g/dL BILIRUBIN TOTAL 1.0 0.1 - 1.5 mg/dL Total protein 5.0 (L) 6.0 - 7.8 g/dL AST 40 10 - 42 U/L ALT 49 (H) 6 - 45 U/L ALK PHOS 120 (H) 40 - 110 U/L GLOBULIN 2.8 2.1 - 3.8 g/dL Albumin/Globulin ratio 0.8 0.8 - 2.0 BUN/CREA 17.3 Extra Lavender Top Tube Result Value Ref Range Extra Lavender Top Tube Done Urinalysis Result Value Ref Range COLOR Yellow Light Yellow, Yellow, Straw CLARITY Cloudy (A) Clear PH UA 9.0 (H) 5.0 - 8.0 Specific Vian 1.012 1.001 - 1.030 PROTEIN UA Negative Negative BLOOD UA Small (A) Negative GLUCOSE UA Negative Negative KETONES UA Negative Negative BILIRUBIN UA Negative Negative NITRITE UA Negative Negative LEUKOCYTES ESTERASE UA Negative Negative UROBILINOGEN UA Negative 0.2 mg/dL, 1.0 mg/dL, Negative Protime INR Result Value Ref Range PROTIME 15.0 (H) 11.3 - 13.9 seconds INR 1.15 (H) 0.90 - 1.10 CBC with Differential Result Value Ref Range WBC 7.9 4.0 - 11.0 K/uL RBC 3.71 (L) 4.30 - 5.70 M/uL Hgb 11.1 (L) 13.5 - 18.0 g/dL Hct 32.9 (L) 40.0 - 51.0 % MCV 88.8 83.0 - 101.0 fL MCH 29.9 28.0 - 35.0 pg MCHC 33.6 32.0 - 36.0 g/dL RDW-CV 16.3 (H) <15.0 % Platelet Count 441 (H) 140 - 440 K/uL MPV 8.1 fL % Neutrophils 76.5 45.0 - 82.0 % % Lymphocytes 6.0 (L) 20.0 - 45.0 % % Monocytes 9.5 4.0 - 12.0 % % Eosinophils 7.0 (H) 0.0 - 5.0 % % Basophils 1.0 0.0 - 1.0 % Absolute Neutrophils 6.00 1.80 - 8.50 K/uL Absolute Lymphocytes 0.50 (L) 0.60 - 3.20 K/uL Absolute Monocytes 0.70 0.00 - 1.00 K/uL Absolute Eosinophils 0.60 (H) 0.00 - 0.40 K/uL Absolute Basophils 0.10 0.00 - 0.10 K/uL Basic Metabolic Panel Result Value Ref Range NA 136 136 - 149 mmol/L K 3.6 3.5 - 5.1 mmol/L CL 101 98 - 109 mmol/L CO2 28 24 - 31 mmol/L ANION GAP 7 3 - 16 mmol/L GLUCOSE 87 70 - 109 mg/dL BUN 15 7 - 18 mg/dL Creatinine, Serum/Plasma 1.10 0.60 - 1.30 mg/dL eGFR if not >60 >=60 mL/min/1.73m2 CALCIUM 8.7 8.3 - 10.5 mg/dL BUN/CREA 13.6 B Type Natriuretic Peptide Result Value Ref Range BNP 693 (H) <100 pg/mL Most recent FIM scores: Report Date 01/02/2017 FIM BladderScore: 1 FIM Bowel Score: 2 FIM Bed/Chair/Wheelchair Score: 1 FIM Toilet Transfer Score: 1 FIM Tub/Shower Transfer Score: 1 FIM Walk Score: 1 FIM Distance Walked(feet): 1 feet FIM Wheelchair Score: 1 FIM Stairs Score :1 FIM Eating Score: 5 FIM Grooming Score: 5 FIM Bathing Score: 4 FIM Dressing Upper Body Score: FIM Dressing Lower Body Score: FIM Toileting Score: 1 Assessment/Plan: Mr. Thomason is a 86-year-old man with a history of a fib admitted 12/18/16 after a GLF resulti ng in right mid-shaft femoral and left intertrochanteric femur fractures resulting in impair ed mobility, transfers, and self-care. Pt now has deficits in coordination, ambulation, st rength, ADLs, and IADLs. Patients exam also consistent with a moderate peripheral neuropath y, which likely explains the progressively impaired balance the past few years. Patient has multiple co-morbidities, and is medically complex requiring 24hr nursing and MD care but is safe to continue therapies # Rehabilitation - The patient will receive the following therapies: -- PT: impairments in gait, transfers, bed mobility, ambulation, ROM, strengthening, endura nce. -- OT: impairments in ADLs and iADLs, ROM, strengthening. -- SW: discharge planning #CVS - h/o a. Fib w/ RVR - stable but BP's continue to be on low side despite midodrine -Decrease metoprolol 50-->25mg BID -Cont amiodarone -Cont warfarin, as H/H has been stable, s/p vit K so may take longer to be theraputic -Cont heparin until INR theraputic -Cont atorvastatin #Resp - resolved hypoxic respiratory failure likely 2/2 volume overload -Daily weights, CVS as above #Delerium - stable, in setting of bilateral femur fractures -Avoid diphenhydramine, benzodiazepines, scopolamine, and metoclopram manuel. Limit MANAGEMENT PLANNER active medications using lowest effective dose. -Implement environmental modifications (window bed, maintain well-lit room during day, minimize nighttime disturbance, and keep calendars and clock visible). -OOB to chair TID with meals if able. #Urinary retention - U/A normal on admit, given age most likely BPH. I'm hesitant to start tamsulosin at this point due to continued orthostasis -Cont to monitor, continue intermittent cath for PVR's >400cc #Bilateral femur fractures - pain stable -WBAT BLE's -Cont PRN and oxycodone for pain #DVT prophylaxis: -see CVS above Code Status: No Code. Dispo:home with family I spent 20 minutes face to face with the patient, with over 50% spent in counseling and/or coordination of care regarding the above plan. Signed: Sajan Hernandez MD Portions of this chart may have been created with [employer] voice recognition software. Occasi onal wrong-word or sound-alike substitutions may have occurred due to the inherent ness itations of voice recognition software. Please read the chart carefully and recognize, using context, where these substitutions have occurred. Joao Gaviria P harmD - 01/02/2017 10:27 AM PDT WARFARIN PER PHARMACY PROTOCOL: Subjective/Objective: Deborah Thomason is a 86 y.o. male admitted on 12/31/2016 for orthopedic surgery secondar y to femoral fracture. 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 Patient is receiving warfarin for thromboprophyla xis postop and also for atrial flutter. Surgery date: 12/19/2016 [x]Fx []THR []TKR Dr. Mancuso Goal INR: 2-3 Enoxaparin bridge: []disch [x]Inr>2 []none Drug Interactions:Amiodarone (HAT RENOVATOR med) Sensitizers:Age Recent Labs Lab 01/02/17 0632 01/01/17 0610 12/31/16 0621 12/30/16 0518 HGB 11.1* -- 10.6* 10.0* HCT 32.9* -- 32.1* 30.4* PLT 441* -- 389 367 CREA 1.10 1.10 1.19 1.14 INR 1.15* -- 1.12* 1.16* Date 12/19 12/20 12/21 12/22 12/23 12/24 12/23-12/31 01/01 01/02 Hgb 10.9 8.7 9.1 7.8 7.7 7.2 - 11.1 Hct 33.4 26.5 26.7 23.4 23.1 21.5 - 32.9 Platelets 187 158 144 160 195 209 - 441 INR 1.78 1.67 1.82 2.07 2.18 2.28 - 1.15 Warfarin Dose 3 mg 3 mg 4 mg 3 mg None hold held 3mg 3 mg Assessment: INR is subtherapeutic Patient being restartetd on warfarin for thromboprophylaxis s/p bilateral femur fx repai r and Pt admitted 12/18 with a therapeutic INR, received 5 mg of Vit K in georg[place] and given F FP to help reverse anticoagulation in preparation for fx repair Was therapeutic on home regimen of 3 mg daily for aflutter/past cva Most recent ECG shows atrial flutter on 12/18 Warfarin was held for low h/h due to blood loss anemia from surgery Pt is receiving amiodarone and heparin sc q12h INR expected to be subtherapeutic for a few days d/t dose being held for 9 days Plan: Continue 3 mg warfarin daily (HAT RENOVATOR home dose) Am labs: INR Warfarin education received No; HAT RENOVATOR Will monitor daily Warfarin Dosing Nomogram Warfarin Dosing Expectations Per P&T-approved Joao Holcomb PharmD 01/02/2017 10:27 Ora Medina, Ph armD - 01/01/2017 11:50 AM PDT WARFARIN PER PHARMACY PROTOCOL: Subjective/Objective: Deborah Thomason is a 86 y.o. male admitted on 12/31/2016 for orthopedic surgery secondar y to femoral fracture. 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 Patient is receiving warfarin for thromboprophyla xis postop and also for atrial flutter. Surgery date: 12/19/2016 [x]Fx []THR []TKR Dr. Mancuso Goal INR: 2-3 Enoxaparin bridge: []disch [x]Inr>2 []none Drug Interactions:Amiodarone Sensitizers:Age Recent Labs Lab 01/01/17 0610 12/31/16 0621 12/30/16 0518 12/29/16 0344 HGB -- 10.6* 10.0* 10.1* HCT -- 32.1* 30.4* 29.8* PLT -- 389 367 376 CREA 1.10 1.19 1.14 1.23 INR -- 1.12* 1.16* 1.16* Date 12/19---01/01 Hgb 10.9 8.7 9.1 7.8 7.7 7.2 - Hct 33.4 26.5 26.7 23.4 23.1 21.5 - Platelets 187 158 144 160 195 209 - INR 1.78 1.67 1.82 2.07 2.18 2.28 - Warfarin Dose 3 mg 3 mg 4 mg 3 mg None hold held 3mg Assessment: Patient being restartetd on warfarin for thromboprophylaxis s/p bilateral femur fx repai r and Pt admitted 12/18 with a therapeutic INR, received 5 mg of Vit K in georges and given FFP to help reverse anticoagulation in preparation for fx repair Was therapeutic on home regimen of 3 mg daily for aflutter/past cva Most recent ECG shows atrial flutter on 12/18 warfarin was held for low h/h due to blood loss anemia from surgery Pt is receiving amiodarone and heparin sc q12h Plan: Will restart warfarin at previous home dose of 3mg daily Am labs: inr Warfarin education received No; HAT RENOVATOR Will monitor daily Warfarin Dosing Nomogram Warfarin Dosing Expectations Per P&T-approved Ora Aranda RPH 01/01/2017 11:50 Lambert Smith MD - 01/01/2017 10:08 AM PDT Subjective: No complaints; good spirits. Objective: Patient Vitals for the past 24 hrs: BP Temp Temp src Pulse Resp SpO2 Height Weight 01/01/17 0736 129/81 36.4 C (97.5 F) Oral 96 18 92 % - - 01/01/17 0720 - - - 89 16 92 % - - 01/01/17 0719 - - - - - - - 77.1 kg (169 lb 15.6 oz) 12/31/16 1949 99/56 37 C (98.6 F) Oral 78 - 92 % - - 12/31/16 1553 108/60 37.1 C (98.8 F) Oral 70 18 95 % 1.753 m (5' 9") 81.1 kg (178 lb 12 .7 oz) 12/31/16 1520 - - - 88 16 94 % - - Recent Results (from the past 24 hour(s)) Comprehensive Metabolic Panel Result Value Ref Range NA 136 136 - 149 mmol/L K 3.5 3.5 - 5.1 mmol/L CL 100 98 - 109 mmol/L CO2 27 24 - 31 mmol/L ANION GAP 9 3 - 16 mmol/L GLUCOSE 99 70 - 109 mg/dL BUN 19 (H) 7 - 18 mg/dL Creatinine, Serum/Plasma 1.10 0.60 - 1.30 mg/dL eGFR if not >60 >=60 mL/min/1.73m2 CALCIUM 8.7 8.3 - 10.5 mg/dL ALBUMIN 2.2 (L) 3.2 - 5.0 g/dL BILIRUBIN TOTAL 1.0 0.1 - 1.5 mg/dL Total protein 5.0 (L) 6.0 - 7.8 g/dL AST 40 10 - 42 U/L ALT 49 (H) 6 - 45 U/L ALK PHOS 120 (H) 40 - 110 U/L GLOBULIN 2.8 2.1 - 3.8 g/dL Albumin/Globulin ratio 0.8 0.8 - 2.0 BUN/CREA 17.3 Extra Lavender Top Tube Result Value Ref Range Extra Lavender Top Tube Done Patient is sitting on the side of the bed without significant pain. Assessment: POD #12 s/p IM fixation of bilateral femur fractures Films last week looked good with stable fracture alignment. Plan: Continue therapies. WBAT on bilateral lower limbs. Remove samy today. DVT prophyl axis with warfarin. Lambert Mancuso MD DATE/TIME: 01/01/2017 10:08 documented in this enc ounter Plan of Treatment +--------+---------+ + + + | Date | Type | Specialty | Care Team | Description | +--------+---------+ + + + | 01/26/ | Office | Cardiology | Paolo Selby, | | | 2020 | Visit | | MD Marjan MARINELLI | | | | | | [place] | | | | | | [id number] | | | | | | | | +--------+---------+ + + + + +------+--------+ + + | Name | Type | Priori | Associated Diagnoses | Order Schedule | | | | ty | | | + +------+--------+ + + | DME: Wheelchair | DME | Routin | Closed fracture of | DME 1 Time for 1 | | | | e | neck of left femur | Occurrences starting | | | | | with routine | 01/15/2017 until | | | | | healing, subsequent | 01/15/2017 | | | | | encounter Closed | | | | | | fracture of neck of | | | | | | right femur with | | | | | | routine healing, | | | | | | subsequent encounter | | + +------+--------+ + + | DME: Walker | DME | Routin | Closed fracture of | DME 1 Time for 1 | | | | e | neck of left femur | Occurrences starting | | | | | with routine | 01/16/2017 until | | | | | healing, subsequent | 01/16/2017 | | | | | encounter Other | | | | | | closed fracture of | | | | | | shaft of right femur | | | | | | with routine | | | | | | healing, subsequent | | | | | | encounter Open | | | | | | wounds of multiple | | | | | | sites of hand, left, | | | | | | initial encounter | | | | | | Open wounds of | | | | | | multiple sites of | | | | | | hand, right, initial | | | | | | encounter Antalgic | | | | | | gait | | + +------+--------+ + + documented as of this encounter Procedures + +--------+ + + + | Procedure Name | Priori | Date/Time | Associated Diagnosis | Comments | | | ty | | | | + +--------+ + + + | EXTRA LAVENDER TOP | Routin | 01/17/2017 | | Results for this | | TUBE | e | 7:10 AM | | procedure are in the | | | | PDT | | results section. | + +--------+ + + + | PROTIME INR | Routin | 01/17/2017 | | Results for this | | | e | 6:36 AM | | procedure are in the | | | | PDT | | results section. | + +--------+ + + + | BASIC METABOLIC | Routin | 01/17/2017 | | Results for this | | PANEL | e | 6:36 AM | | procedure are in the | | | | PDT | | results section. | + +--------+ + + + | XR LUMBAR SPINE 2 OR | Routin | 01/16/2017 | | Results for this | | 3 VW | e | 2:08 PM | | procedure are in the | | | | PDT | | results section. | + +--------+ + + + | XR HIP LEFT 2-3 | Routin | 01/16/2017 | | Results for this | | VIEWS | e | 2:07 PM | | procedure are in the | | | | PDT | | results section. | + +--------+ + + + | XR FEMUR RIGHT 2+VW | Routin | 01/16/2017 | | Results for this | | | e | 2:06 PM | | procedure are in the | | | | PDT | | results section. | + +--------+ + + + | CBC WITH | Routin | 01/16/2017 | | Results for this | | DIFFERENTIAL | e | 9:34 AM | | procedure are in the | | | | PDT | | results section. | + +--------+ + + + | BASIC METABOLIC | Routin | 01/16/2017 | | Results for this | | PANEL | e | 9:34 AM | | procedure are in the | | | | PDT | | results section. | + +--------+ + + + | PROTIME INR | Routin | 01/16/2017 | | Results for this | | | e | 6:38 AM | | procedure are in the | | | | PDT | | results section. | + +--------+ + + + | PROTIME INR | Routin | 01/15/2017 | | Results for this | | | e | 6:17 AM | | procedure are in the | | | | PDT | | results section. | + +--------+ + + + | PROTIME INR | Routin | 01/14/2017 | | Results for this | | | e | 6:26 AM | | procedure are in the | | | | PDT | | results section. | + +--------+ + + + | PROTIME INR | Routin | 01/13/2017 | | Results for this | | | e | 6:52 AM | | procedure are in the | | | | PDT | | results section. | + +--------+ + + + | EXTRA LAVENDER TOP | Routin | 01/12/2017 | | Results for this | | TUBE | e | 5:58 AM | | procedure are in the | | | | PDT | | results section. | + +--------+ + + + | EXTRA GREEN TOP TUBE | Routin | 01/12/2017 | | Results for this | | | e | 5:58 AM | | procedure are in the | | | | PDT | | results section. | + +--------+ + + + | PROTIME INR | Routin | 01/12/2017 | | Results for this | | | e | 5:58 AM | | procedure are in the | | | | PDT | | results section. | + +--------+ + + + | PROTIME INR | Routin | 01/11/2017 | | Results for this | | | e | 5:47 AM | | procedure are in the | | | | PDT | | results section. | + +--------+ + + + | URINALYSIS | Routin | 01/10/2017 | | Results for this | | | e | 6:58 AM | | procedure are in the | | | | PDT | | results section. | + +--------+ + + + | PROTIME INR | Routin | 01/10/2017 | | Results for this | | | e | 6:35 AM | | procedure are in the | | | | PDT | | results section. | + +--------+ + + + | CBC WITH | Routin | 01/10/2017 | | Results for this | | DIFFERENTIAL | e | 6:35 AM | | procedure are in the | | | | PDT | | results section. | + +--------+ + + + | BASIC METABOLIC | Routin | 01/10/2017 | | Results for this | | PANEL | e | 6:35 AM | | procedure are in the | | | | PDT | | results section. | + +--------+ + + + | PROTIME INR | Routin | 01/09/2017 | | Results for this | | | e | 6:31 AM | | procedure are in the | | | | PDT | | results section. | + +--------+ + + + | PROTIME INR | Routin | 01/08/2017 | | Results for this | | | e | 5:54 AM | | procedure are in the | | | | PDT | | results section. | + +--------+ + + + | PROTIME INR | Routin | 01/07/2017 | | Results for this | | | e | 6:38 AM | | procedure are in the | | | | PDT | | results section. | + +--------+ + + + | EXTRA LAVENDER TOP | Routin | 01/06/2017 | | Results for this | | TUBE | e | 7:00 AM | | procedure are in the | | | | PDT | | results section. | + +--------+ + + + | EXTRA GREEN TOP TUBE | Routin | 01/06/2017 | | Results for this | | | e | 7:00 AM | | procedure are in the | | | | PDT | | results section. | + +--------+ + + + | PROTIME INR | Routin | 01/06/2017 | | Results for this | | | e | 6:32 AM | | procedure are in the | | | | PDT | | results section. | + +--------+ + + + | EXTRA LAVENDER TOP | Routin | 01/05/2017 | | Results for this | | TUBE | e | 6:35 AM | | procedure are in the | | | | PDT | | results section. | + +--------+ + + + | EXTRA GREEN TOP TUBE | Routin | 01/05/2017 | | Results for this | | | e | 6:35 AM | | procedure are in the | | | | PDT | | results section. | + +--------+ + + + | PROTIME INR | Routin | 01/05/2017 | | Results for this | | | e | 6:31 AM | | procedure are in the | | | | PDT | | results section. | + +--------+ + + + | VITAMIN D, | Routin | 01/04/2017 | | Results for this | | DEFICIENCY SCREEN | e | 6:39 AM | | procedure are in the | | (25-HYDROXY) | | PDT | | results section. | + +--------+ + + + | PROTIME INR | Routin | 01/04/2017 | | Results for this | | | e | 6:38 AM | | procedure are in the | | | | PDT | | results section. | + +--------+ + + + | CBC NO DIFFERENTIAL | Routin | 01/04/2017 | | Results for this | | | e | 6:38 AM | | procedure are in the | | | | PDT | | results section. | + +--------+ + + + | BASIC METABOLIC | Routin | 01/04/2017 | | Results for this | | PANEL | e | 6:38 AM | | procedure are in the | | | | PDT | | results section. | + +--------+ + + + | PROTIME INR | Routin | 01/03/2017 | | Results for this | | | e | 6:38 AM | | procedure are in the | | | | PDT | | results section. | + +--------+ + + + | PROTIME INR | Routin | 01/02/2017 | | Results for this | | | e | 6:32 AM | | procedure are in the | | | | PDT | | results section. | + +--------+ + + + | CBC WITH | Routin | 01/02/2017 | | Results for this | | DIFFERENTIAL | e | 6:32 AM | | procedure are in the | | | | PDT | | results section. | + +--------+ + + + | B TYPE NATRIURETIC | Routin | 01/02/2017 | | Results for this | | PEPTIDE | e | 6:32 AM | | procedure are in the | | | | PDT | | results section. | + +--------+ + + + | BASIC METABOLIC | Routin | 01/02/2017 | | Results for this | | PANEL | e | 6:32 AM | | procedure are in the | | | | PDT | | results section. | + +--------+ + + + | URINALYSIS | Routin | 01/01/2017 | | Results for this | | | e | 9:51 AM | | procedure are in the | | | | PDT | | results section. | + +--------+ + + + | EXTRA LAVENDER TOP | Routin | 01/01/2017 | | Results for this | | TUBE | e | 6:11 AM | | procedure are in the | | | | PDT | | results section. | + +--------+ + + + | COMPREHENSIVE | Routin | 01/01/2017 | | Results for this | | METABOLIC PANEL | e | 6:10 AM | | procedure are in the | | | | PDT | | results section. | + +--------+ + + + documented in this encounter Results Extra Lavender Top Tube (01/17/2017 7:10 AM PDT) + +-------+ + + + | Component | Value | Ref Range | Performed | Pathologist | | | | | At | Signature | + +-------+ + + + | Extra | Done | | [facility] | | | Lavender | | | [facility] | | | Top Tube | | | MEDICAL | | | | | | CENTER - | | | | | | LABORATORY | | + +-------+ + + + + + | Specimen | + + | Blood | + + + + + + + | Performing | Address | City/State/Zipcode | Phone Number | | Organization | | | | + + + + + | [facility] | [address] | [place] | [phone] | | [facility] | | [address] | | | - LABORATORY | | | | + + + + + Protime INR (01/17/2017 6:36 AM PDT) + + + + + + | Component | Value | Ref Range | Performed | Pathologist | | | | | At | Signature | + + + + + + | Prothrombin | 30.5 (H) | 11.3 - 13.9 | [facility] | | | Time | | seconds | [facility] | | | | | | [facility]ICAL | | | | | | CENTER - | | | | | | LABORATORY | | + + + + + + | INR | 2.82 (H)Comment: Usual | 0.90 - 1.10 | [facility] | | | | Oral Anticoagulation | | [facility] | | | | Range: 2.0 - | | MEDICAL | | | | 3.0High Level Oral | | CENTER - | | | | Anticoagulation Range: | | LABORATORY | | | | 2.5 - 3.5 | | | | + + + + + + + + | Specimen | + + | Blood | + + + + + + + | Performing | Address | City/State/Zipcode | Phone Number | | Organization | | | | + + + + + | [facility] | [address] | [place] | [phone] | | [facility] | | [address] | | | - LABORATORY | | | | + + + + + Basic Metabolic Panel (01/17/2017 6:36 AM PDT) + + + + + + | Component | Value | Ref Range | Performed | Pathologist | | | | | At | Signature | + + + + + + | Na | 131 (L) | 136 - 149 | [facility] | | | | | mmol/L | [facility] | | | | | | MEDICAL | | | | | | CENTER - | | | | | | LABORATORY | | + + + + + + | K | 3.7 | 3.5 - 5.1 | [facility] | | | | | mmol/L | [facility] | | | | | | MEDICAL | | | | | | CENTER - | | | | | | LABORATORY | | + + + + + + | Cl | 99 | 98 - 109 mmol/L | [facility] | | | | | | [facility] | | | | | | MEDICAL | | | | | | CENTER - | | | | | | LABORATORY | | + + + + + + | CO2 | 25 | 24 - 31 mmol/L | [facility] | | | | | | [facility] | | | | | | MEDICAL | | | | | | CENTER - | | | | | | LABORATORY | | + + + + + + | Anion Gap | 7 | 3 - 16 mmol/L | [facility] | | | | | | [facility] | | | | | | MEDICAL | | | | | | CENTER - | | | | | | LABORATORY | | + + + + + + | Glucose | 80 | 70 - 109 mg/dL | [facility] | | | | | | [facility] | | | | | | MEDICAL | | | | | | CENTER - | | | | | | LABORATORY | | + + + + + + | BUN | 23 (H) | 7 - 18 mg/dL | [facility] | | | | | | [facility] | | | | | | MEDICAL | | | | | | CENTER - | | | | | | LABORATORY | | + + + + + + | Creatinine | 1.20 | 0.60 - 1.30 | [facility] | | | | | mg/dL | [facility] | | | | | | MEDICAL | | | | | | CENTER - | | | | | | LABORATORY | | + + + + + + | eGFR if not | 58 (L)Comment: | >=60 | [facility] | | | | GLOMERULAR FILTRATION | mL/min/1.73m2 | [facility] | | | [place] | RATE,ESTIMATED | | MEDICAL | | | | mL/min/1.71f7Cspg than | | CENTER - | | | | 60 Chronic kidney | | LABORATORY | | | | disease,if found over a | | | | | | 3-month period.Less than | | | | | | 15 Kidney failureFor | | | | | | | | | | | | Americans,multiply the | | | | | | calculated GFR by 1.21. | | | | | | | | | | + + + + + + | Calcium | 8.8 | 8.3 - 10.5 | [facility] | | | | | mg/dL | [facility] | | | | | | MEDICAL | | | | | | CENTER - | | | | | | LABORATORY | | + + + + + + | BUN/Creatin | 19.2 | | [facility] | | | ine Ratio | | | [facility] | | | | | | MEDICAL | | | | | | CENTER - | | | | | | LABORATORY | | + + + + + + + + | Specimen | + + | Blood | + + + + + + + | Performing | Address | City/State/Zipcode | Phone Number | | Organization | | | | + + + + + | [facility] | [address] | [place] | [phone] | | [facility] | | [address] | | | - LABORATORY | | | | + + + + + XR Lumbar Spine 2 or 3 Vw (01/16/2017 2:08 PM PDT) + + | Specimen | + + | | + + + + + | Narrative | Performed At | + + + | EXAM:XR FEMUR RIGHT 2+VW, XR LUMBAR SPINE 2 OR 3 VW, XR HIP LEFT 2-3 | [facility] | | VIEWS CLINICAL HISTORY: follow up fracture. Back spasms. | | | COMPARISON: 12/25/2016 hip and femur radiographs. FINDINGS: | | | Right femur: There is a long antegrade intramedullary yulisa traversing a | | | middle and distal one third, mildly displaced femoral fracture. | | | There are intact distal and proximal locking screws. The | | | fractures stable in alignment. There is evidence of healing at the | | | fracture site. Left hip: Frontal view the pelvis. Frontal and | | | frog-leg views of the left hip. There is an intramedullary yulisa and | | | femoral nail transfixing an intertrochanteric fracture. The | | | hardware is intact. Alignment is stable. There is subtle evidence | | | of healing. Lumbar spine: Frontal and lateral views. There is | | | mild dextroconvex scoliosis with the apex at the thoracolumbar | | | junction. There appear to be 5 nonrib-bearing lumbar-type vertebral | | | bodies. There is a mild superior endplate deformity at T12. Mild | | | to moderate deformities of L1 and L2. Disc collapse at L5-S1. | | | Diffuse demineralization. Diffuse degenerative changes. | | | Atherosclerotic irregularity throughout the aorta. Possible | | | aneurysmal dilatation of the distal aorta. There is a vascular | | | stent in the right common iliac artery. IMPRESSION - | | | Instrumented right femur fracture in stable alignment and showing | | | evidence of healing. Instrumented left intratrochanteric fracture | | | in stable alignment and showing evidence of healing. Compression | | | deformities involving T12, L1, and L2. These are age indeterminate. | | | They are mild and [id number] deformities. Diffuse | | | demineralization. Diffuse lumbar spondylosis. Possible | | | aneurysmal dilatation of the distal abdominal aorta. | | | Recommendation: Consider ultrasound of the aorta. Dictated and | | | Signed by: Matthew Kwon MD Electronically signed: 01/16/2017 | | | 2:33 PM | | + + + + + | Procedure Note | + + | Stan, Rad Results In - 01/16/2017 2:36 PM PDT EXAM:XR FEMUR RIGHT 2+VW, XR LUMBAR | | SPINE 2 OR 3 VW, XR HIP LEFT 2-3 VIEWSCLINICAL HISTORY: follow up fracture. Back | | spasms.COMPARISON: 12/25/2016 hip and femur radiographs.FINDINGS: Right femur: There is a | | long antegrade intramedullary yulisa traversing a middleand distal one third, mildly | | displaced femoral fracture. There are intactdistal and proximal locking screws. The | | fractures stable in alignment. Thereis evidence of healing at the fracture site.Left | | hip: Frontal view the pelvis. Frontal and frog-leg views of the left hip. There is an | | intramedullary yulisa and femoral nail transfixing an intertrochantericfracture. The | | hardware is intact. Alignment is stable. There is subtleevidence of healing.Lumbar | | spine: Frontal and lateral views. There is mild dextroconvex scoliosiswith the apex at | | the thoracolumbar junction. There appear to be 5nonrib-bearing lumbar-type vertebral | | bodies. There is a mild superior endplatedeformity at T12. Mild to moderate | | deformities of L1 and L2. Disc collapse atL5-S1. Diffuse demineralization. Diffuse | | degenerative changes. Atherosclerotic irregularity throughout the aorta. Possible | | aneurysmaldilatation of the distal aorta. There is a vascular stent in the right | | commoniliac artery.IMPRESSION -Instrumented right femur fracture in stable alignment and | | showing evidence ofhealing.Instrumented left intratrochanteric fracture in stable | | alignment and showingevidence of healing.Compression deformities involving T12, L1, and | | L2. These are age indeterminate. They are mild and [id number] deformities.Diffuse | | demineralization.Diffuse lumbar spondylosis.Possible aneurysmal dilatation of the | | distal abdominal aorta.Recommendation: Consider ultrasound of the aorta.Dictated and | | Signed by: Matthew Kwon MD Electronically signed: 01/16/2017 2:33 PM | |L5-S1. Diffuse demineralization. Diffuse degenerative changes. | |Atherosclerotic irregularity throughout the aorta. Possible aneurysmal | |dilatation of the distal aorta. There is a vascular stent in the right common | |iliac artery. | | | |IMPRESSION - | | | |Instrumented right femur fracture in stable alignment and showing evidence of | |healing. | | | |Instrumented left intratrochanteric fracture in stable alignment and showing | |evidence of healing. | | | |Compression deformities involving T12, L1, and L2. These are age indeterminate. | | They are mild and kalk-vk-gnttjyec deformities. | | | |Diffuse demineralization. | | | |Diffuse lumbar spondylosis. 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 | | | |Recommendation: Consider ultrasound of the aorta. | | | |Dictated and Signed by: Matthew Kwon MD | | Electronically signed: 01/16/2017 2:33 PM | + + + +---------+ + + | Performing | Address | City/State/Zipcode | Phone Number | | Organization | | | | + +---------+ + + | [facility] | | | | + +---------+ + + XR Hip Left 2-3 Views (01/16/2017 2:07 PM PDT) + + | Specimen | + + | | + + + + + | Narrative | Performed At | + + + | EXAM:XR FEMUR RIGHT 2+VW, XR LUMBAR SPINE 2 OR 3 VW, XR HIP LEFT 2-3 | | | VIEWS CLINICAL HISTORY: follow up fracture. Back spasms. | | | COMPARISON: 12/25/2016 hip and femur radiographs. FINDINGS: | | | Right femur: There is a long antegrade intramedullary yulisa traversing a | | | middle and distal one third, mildly displaced femoral fracture. | | | There are intact distal and proximal locking screws. The | | | fractures stable in alignment. There is evidence of healing at the | | | fracture site. Left hip: Frontal view the pelvis. Frontal and | | | frog-leg views of the left hip. There is an intramedullary yulisa and | | | femoral nail transfixing an intertrochanteric fracture. The | | | hardware is intact. Alignment is stable. There is subtle evidence | | | of healing. Lumbar spine: Frontal and lateral views. There is | | | mild dextroconvex scoliosis with the apex at the thoracolumbar | | | junction. There appear to be 5 nonrib-bearing lumbar-type vertebral | | | bodies. There is a mild superior endplate deformity at T12. Mild | | | to moderate deformities of L1 and L2. Disc collapse at L5-S1. | | | Diffuse demineralization. Diffuse degenerative changes. | | | Atherosclerotic irregularity throughout the aorta. Possible | | | aneurysmal dilatation of the distal aorta. There is a vascular | | | stent in the right common iliac artery. IMPRESSION - | | | Instrumented right femur fracture in stable alignment and showing | | | evidence of healing. Instrumented left intratrochanteric fracture | | | in stable alignment and showing evidence of healing. Compression | | | deformities involving T12, L1, and L2. These are age indeterminate. | | | They are mild and wukc-yp-nvdkkjug deformities. Diffuse | | | demineralization. Diffuse lumbar spondylosis. Possible | | | aneurysmal dilatation of the distal abdominal aorta. | | | Recommendation: Consider ultrasound of the aorta. Dictated and | | | Signed by: Matthew Kwon MD Electronically signed: 01/16/2017 | | | 2:33 PM | | + + + + + | Procedure Note | + + | Stan, Rad Results In - 01/16/2017 2:36 PM PDT EXAM:XR FEMUR RIGHT 2+VW, XR LUMBAR | | SPINE 2 OR 3 VW, XR HIP LEFT 2-3 VIEWSCLINICAL HISTORY: follow up fracture. Back | | spasms.COMPARISON: 12/25/2016 hip and femur radiographs.FINDINGS: Right femur: There is a | | long antegrade intramedullary yulisa traversing a middleand distal one third, mildly | | displaced femoral fracture. There are intactdistal and proximal locking screws. The | | fractures stable in alignment. Thereis evidence of healing at the fracture site.Left | | hip: Frontal view the pelvis. Frontal and frog-leg views of the left hip. There is an | | intramedullary yulisa and femoral nail transfixing an intertrochantericfracture. The | | hardware is intact. Alignment is stable. There is subtleevidence of healing.Lumbar | | spine: Frontal and lateral views. There is mild dextroconvex scoliosiswith the apex at | | the thoracolumbar junction. There appear to be 5nonrib-bearing lumbar-type vertebral | | bodies. There is a mild superior endplatedeformity at T12. Mild to moderate | | deformities of L1 and L2. Disc collapse atL5-S1. Diffuse demineralization. Diffuse | | degenerative changes. Atherosclerotic irregularity throughout the aorta. Possible | | aneurysmaldilatation of the distal aorta. There is a vascular stent in the right | | commoniliac artery.IMPRESSION -Instrumented right femur fracture in stable alignment and | | showing evidence ofhealing.Instrumented left intratrochanteric fracture in stable | | alignment and showingevidence of healing.Compression deformities involving T12, L1, and | | L2. These are age indeterminate. They are mild and zgbd-qc-qudsktpi deformities.Diffuse | | demineralization.Diffuse lumbar spondylosis.Possible aneurysmal dilatation of the | | distal abdominal aorta.Recommendation: Consider ultrasound of the aorta.Dictated and | | Signed by: Matthew Kwon MD Electronically signed: 01/16/2017 2:33 PM | |L5-S1. Diffuse demineralization. Diffuse degenerative changes. | |Atherosclerotic irregularity throughout the aorta. Possible aneurysmal | |dilatation of the distal aorta. There is a vascular stent in the right common | |iliac artery. | | | |IMPRESSION - | | | |Instrumented right femur fracture in stable alignment and showing evidence of | |healing. | | | |Instrumented left intratrochanteric fracture in stable alignment and showing | |evidence of healing. | | | |Compression deformities involving T12, L1, and L2. These are age indeterminate. | | They are mild and lpox-fx-pgblvxet deformities. | | | |Diffuse demineralization. | | | |Diffuse lumbar spondylosis. 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 | | | |Recommendation: Consider ultrasound of the aorta. | | | |Dictated and Signed by: Matthew Kwon MD | | Electronically signed: 01/16/2017 2:33 PM | + + XR Femur Right 2+Vw (01/16/2017 2:06 PM PDT) + + | Specimen | + + | | + + + + + | Narrative | Performed At | + + + | EXAM:XR FEMUR RIGHT 2+VW, XR LUMBAR SPINE 2 OR 3 VW, XR HIP LEFT 2-3 | [facility] | | VIEWS CLINICAL HISTORY: follow up fracture. Back spasms. | | | COMPARISON: 12/25/2016 hip and femur radiographs. FINDINGS: | | | Right femur: There is a long antegrade intramedullary yulisa traversing a | | | middle and distal one third, mildly displaced femoral fracture. | | | There are intact distal and proximal locking screws. The | | | fractures stable in alignment. There is evidence of healing at the | | | fracture site. Left hip: Frontal view the pelvis. Frontal and | | | frog-leg views of the left hip. There is an intramedullary yulisa and | | | femoral nail transfixing an intertrochanteric fracture. The | | | hardware is intact. Alignment is stable. There is subtle evidence | | | of healing. Lumbar spine: Frontal and lateral views. There is | | | mild dextroconvex scoliosis with the apex at the thoracolumbar | | | junction. There appear to be 5 nonrib-bearing lumbar-type vertebral | | | bodies. There is a mild superior endplate deformity at T12. Mild | | | to moderate deformities of L1 and L2. Disc collapse at L5-S1. | | | Diffuse demineralization. Diffuse degenerative changes. | | | Atherosclerotic irregularity throughout the aorta. Possible | | | aneurysmal dilatation of the distal aorta. There is a vascular | | | stent in the right common iliac artery. IMPRESSION - | | | Instrumented right femur fracture in stable alignment and showing | | | evidence of healing. Instrumented left intratrochanteric fracture | | | in stable alignment and showing evidence of healing. Compression | | | deformities involving T12, L1, and L2. These are age indeterminate. | | | They are mild and sevq-hm-bzwortpr deformities. Diffuse | | | demineralization. Diffuse lumbar spondylosis. Possible | | | aneurysmal dilatation of the distal abdominal aorta. | | | Recommendation: Consider ultrasound of the aorta. Dictated and | | | Signed by: Matthew Kwon MD Electronically signed: 01/16/2017 | | | 2:33 PM | | + + + + + | Procedure Note | + + | Stan, Rad Results In - 01/16/2017 2:36 PM PDT EXAM:XR FEMUR RIGHT 2+VW, XR LUMBAR | | SPINE 2 OR 3 VW, XR HIP LEFT 2-3 VIEWSCLINICAL HISTORY: follow up fracture. Back | | spasms.COMPARISON: 12/25/2016 hip and femur radiographs.FINDINGS: Right femur: There is a | | long antegrade intramedullary yulisa traversing a middleand distal one third, mildly | | displaced femoral fracture. There are intactdistal and proximal locking screws. The | | fractures stable in alignment. Thereis evidence of healing at the fracture site.Left | | hip: Frontal view the pelvis. Frontal and frog-leg views of the left hip. There is an | | intramedullary yulisa and femoral nail transfixing an intertrochantericfracture. The | | hardware is intact. Alignment is stable. There is subtleevidence of healing.Lumbar | | spine: Frontal and lateral views. There is mild dextroconvex scoliosiswith the apex at | | the thoracolumbar junction. There appear to be 5nonrib-bearing lumbar-type vertebral | | bodies. There is a mild superior endplatedeformity at T12. Mild to moderate | | deformities of L1 and L2. Disc collapse atL5-S1. Diffuse demineralization. Diffuse | | degenerative changes. Atherosclerotic irregularity throughout the aorta. Possible | | aneurysmaldilatation of the distal aorta. There is a vascular stent in the right | | commoniliac artery.IMPRESSION -Instrumented right femur fracture in stable alignment and | | showing evidence ofhealing.Instrumented left intratrochanteric fracture in stable | | alignment and showingevidence of healing.Compression deformities involving T12, L1, and | | L2. These are age indeterminate. They are mild and dqbz-ri-fururzor deformities.Diffuse | | demineralization.Diffuse lumbar spondylosis.Possible aneurysmal dilatation of the | | distal abdominal aorta.Recommendation: Consider ultrasound of the aorta.Dictated and | | Signed by: Matthew Kwon MD Electronically signed: 01/16/2017 2:33 PM | |L5-S1. Diffuse demineralization. Diffuse degenerative changes. | |Atherosclerotic irregularity throughout the aorta. Possible aneurysmal | |dilatation of the distal aorta. There is a vascular stent in the right common | |iliac artery. | | | |IMPRESSION - | | | |Instrumented right femur fracture in stable alignment and showing evidence of | |healing. | | | |Instrumented left intratrochanteric fracture in stable alignment and showing | |evidence of healing. | | | |Compression deformities involving T12, L1, and L2. These are age indeterminate. | | They are mild and neyz-ir-xpidueny deformities. | | | |Diffuse demineralization. | | | |Diffuse lumbar spondylosis. 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 | | | |Recommendation: Consider ultrasound of the aorta. | | | |Dictated and Signed by: Matthew Kwon MD | | Electronically signed: 01/16/2017 2:33 PM | + + + +---------+ + + | Performing | Address | City/State/Zipcode | Phone Number | | Organization | | | | + +---------+ + + | [facility] | | | | + +---------+ + + CBC with Differential (01/16/2017 9:34 AM PDT) + + + + + + | Component | Value | Ref Range | Performed | Pathologist | | | | | At | Signature | + + + + + + | WBC | 8.5 | 4.0 - 11.0 K/uL | [facility] | | | | | | [facility] | | | | | | [facility] | [facility] - | | | | | | [facility]ORY | | + + + + + + | RBC | 3.77 (L) | 4.30 - 5.70 | [facility] | | | | | M/uL | [facility] | | | | | | [facility] | | | | | | [facility] - | | | | | | LABORATORY | | + + + + + + | Hemoglobin | 11.1 (L) | 13.5 - 18.0 | [facility] | | | | | g/dL | [facility] | | | | | | [facility] | | | | | | [facility] - | | | | | | LAB[facility]ATORY | | + + + + + + | Hematocrit | 33.5 (L) | 40.0 - 51.0 % | [facility] | | | | | | [facility] | | | | | | [facility] | | | | | | [facility] - | | | | | | LAB[facility]ATORY | | + + + + + + | MCV | 88.8 | 83.0 - 101.0 fL | [facility] | | | | | | [facility] | | | | | | [facility] | | | | | | [facility] - | | | | | | LAB[facility]ATORY | | + + + + + + | MCH | 29.4 | 28.0 - 35.0 pg | [facility] | | | | | | [facility] | | | | | | [facility] | | | | | | [facility] - | | | | | | LAB[facility]ATORY | | + + + + + + | MCHC | 33.0 | 32.0 - 36.0 | [facility] | | | | | g/dL | [facility] | | | | | | [facility] | | | | | | [facility] - | | | | | | LAB[facility]ATORY | | + + + + + + | RDW-CV | 17.0 (H) | <15.0 % | [facility] | | | | | | [facility] | | | | | | [facility] | | | | | | [facility] - | | | | | | LABORATORY | | + + + + + + | Platelet | 239 | 140 - 440 K/uL | [facility] | | | Count | | | [facility] | | | | | | [facility] | | | | | | [facility] - | | | | | | LAB[facility]ATORY | | + + + + + + | MPV | 8.1 | fL | [facility] | | | | | | [facility] | | | | | | [facility] | | | | | | [facility] - | | | | | | LAB[facility]ATORY | | + + + + + + | % | 79.2 | 45.0 - 82.0 % | [facility] | | | Neutrophils | | | [facility] | | | | | | [facility] | | | | | | [facility] - | | | | | | LABORATORY | | + + + + + + | % | 4.0 (L) | 20.0 - 45.0 % | [facility] | | | Lymphocytes | | | [facility] | | | | | | [facility] | | | | | | [facility] - | | | | | | LABORATORY | | + + + + + + | % Monocytes | 8.7 | 4.0 - 12.0 % | [facility] | | | | | | [facility] | | | | | | [facility] | | | | | | [facility] - | | | | | | LAB[facility]ATORY | | + + + + + + | % | 7.7 (H) | 0.0 - 5.0 % | [facility] | | | Eosinophils | | | [facility] | | | | | | [facility] | | | | | | [facility] - | | | | | | LABORATORY | | + + + + + + | % Basophils | 0.4 | 0.0 - 1.0 % | [facility] | | | | | | [facility] | [facility] | [facility] | | | | | | [facility] - | | | | | | LAB[facility]ATORY | | + + + + + + | Absolute | 6.70 | 1.80 - 8.50 | [facility] | | | Neutrophils | | K/uL | [facility] | | | | | | [facility] | | | | | | [facility] - | | | | | | LABORATORY | | + + + + + + | Absolute | 0.30 (L) | 0.60 - 3.20 | [facility] | | | Lymphocytes | | K/uL | [facility] | | | | | | [facility] | | | | | | [facility] - | | | | | | LABORATORY | | + + + + + + | Absolute | 0.70 | 0.00 - 1.00 | [facility] | | | Monocytes | | K/uL | [facility] | | | | | | [facility] | | | | | | [facility] - | | | | | | LAB[facility]ATORY | | + + + + + + | Absolute | 0.70 (H) | 0.00 - 0.40 | [facility] | | | Eosinophils | | K/uL | [facility] | | | | | | [facility] | | | | | | [facility] - | | | | | | LAB[facility]ATORY | | + + + + + + | Absolute | 0.00 | 0.00 - 0.10 | [facility] | | | Basophils | | K/uL | [facility] | | | | | | [facility] | | | | | | [facility] - | | | | | | LAB[facility]ATORY | | + + + + + + + + | Specimen | + + | Blood | + + + + + + + | Performing | Address | City/State/Zipcode | Phone Number | | Organization | | | | + + + + + | [facility] | [address] | [place] | [phone] | | [facility] | | [address] | | | - LABORATORY | | | | + + + + + Basic Metabolic Panel (01/16/2017 9:34 AM PDT) + + + + + + | Component | Value | Ref Range | Performed | Pathologist | | | | | At | Signature | + + + + + + | Na | 131 (L) | 136 - 149 | [facility] | | | | | mmol/L | [facility] | | | | | | [facility] | | | | | | [facility] - | | | | | | LAB[facility]ATORY | | + + + + + + | K | 4.7 | 3.5 - 5.1 | [facility] | | | | | mmol/L | [facility] | | | | | | [facility] | | | | | | [facility] - | | | | | | LABORATORY | | + + + + + + | Cl | 100 | 98 - 109 mmol/L | [facility] | | | | | | [facility] | | | | | | [facility] | | | | | | [facility] - | | | | | | LABORATORY | | + + + + + + | CO2 | 25 | 24 - 31 mmol/L | [facility] | | | | | | [facility] | | | | | | [facility] | | | | | | [facility] - | | | | | | LABORATORY | | + + + + + + | Anion Gap | 6 | 3 - 16 mmol/L | [facility] | | | | | | [facility] | | | | | | [facility] | | | | | | [facility] - | | | | | | LABORATORY | | + + + + + + | Glucose | 104 | 70 - 109 mg/dL | [facility] | | | | | | [facility] | | | | | | [facility] | | | | | | [facility] - | | | | | | LABORATORY | | + + + + + + | BUN | 26 (H) | 7 - 18 mg/dL | [facility] | | | | | | [facility] | | | | | | [facility] | | | | | | [facility] - | | | | | | LABORATORY | | + + + + + + | Creatinine | 1.30 | 0.60 - 1.30 | [facility] | | | | | mg/dL | [facility] | | | | | | [facility] | | | | | | [facility] - | | | | | | LABORATORY | | + + + + + + | eGFR if not | 53 (L)Comment: | >=60 | [facility] | | | | GLOMERULAR FILTRATION | mL/min/1.73m2 | [facility] | | | [facility]ONGAN | RATE,ESTIMATED | | MEDICAL | | | | mL/min/1.95a2Ujwi than | | CENTER - | | | | 60 Chronic kidney | | LABORATORY | | | | disease,if found over a | | | | | | 3-month period.Less than | | | | | | 15 Kidney failureFor | | | | | | | | | | | | Americans,multiply the | | | | | | calculated GFR by 1.21. | | | | | | | | | | + + + + + + | Calcium | 8.9 | 8.3 - 10.5 | [facility] | | | | | mg/dL | [facility] | | | | | | [facility] | | | | | | CENTER - | | | | | | LABORATORY | | + + + + + + | BUN/Creatin | 20.0 | | [facility] | | | ine Ratio | | | [facility] | | | | | | [facility] | | | | | | CENTER - | | | | | | LABORATORY | | + + + + + + + + | Specimen | + + | Blood | + + + + + + + | Performing | Address | City/State/Zipcode | Phone Number | | Organization | | | | + + + + + | [facility] | [address] | [place] | [phone] | | [facility] | | [address] | | | - LABORATORY | | | | + + + + + Protime INR (01/16/2017 6:38 AM PDT) + + + + + + | Component | Value | Ref Range | Performed | Pathologist | | | | | At | Signature | + + + + + + | Prothrombin | 31.5 (H) | 11.3 - 13.9 | [facility] | | | Time | | seconds | [facility] | | | | | | [facility] | | | | | | CENTER - | | | | | | LABORATORY | | + + + + + + | INR | 2.94 (H)Comment: Usual | 0.90 - 1.10 | [facility] | | | | Oral Anticoagulation | | [facility] | | | | Range: 2.0 - | | MEDICAL | | | | 3.0High Level Oral | | CENTER - | | | | Anticoagulation Range: | | LABORATORY | | | | 2.5 - 3.5 | | | | + + + + + + + + | Specimen | + + | Blood | + + + + + + + | Performing | Address | City/State/Zipcode | Phone Number | | Organization | | | | + + + + + | [facility] | [address] | [place] | [phone] | | [facility] | | [address] | | | - LABORATORY | | | | + + + + + Maria Elenaime INR (01/15/2017 6:17 AM PDT) + + + + + + | Component | Value | Ref Range | Performed | Pathologist | | | | | At | Signature | + + + + + + | Prothrombin | 30.1 (H) | 11.3 - 13.9 | [facility] | | | Time | | seconds | [facility] | | | | | | [facility] | | | | | | CENTER - | | | | | | LABORATORY | | + + + + + + | INR | 2.77 (H)Comment: Usual | 0.90 - 1.10 | [facility] | | | | Oral Anticoagulation | | [facility] | | | | Range: 2.0 - | | MEDICAL | | | | 3.0High Level Oral | | CENTER - | | | | Anticoagulation Range: | | LABORATORY | | | | 2.5 - 3.5 | | | | + + + + + + + + | Specimen | + + | Blood | + + + + + + + | Performing | Address | City/State/Zipcode | Phone Number | | Organization | | | | + + + + + | [facility] | [address] | [place] | [phone] | | [facility] | | [address] | | | - LABORATORY | | | | + + + + + Protime INR (01/14/2017 6:26 AM PDT) + + + + + + | Component | Value | Ref Range | Performed | Pathologist | | | | | At | Signature | + + + + + + | Prothrombin | 29.8 (H) | 11.3 - 13.9 | [facility] | | | Time | | seconds | [facility] | | | | | [facility] | | | | | | C[facility] - | | | | | | LABORATORY | | + + + + + + | INR | 2.74 (H)Comment: Usual | 0.90 - 1.10 | [facility] | | | | Oral Anticoagulation | | [facility] | | | | Range: 2.0 - | | MEDICAL | | | | 3.0High Level Oral | | CENTER - | | | | Anticoagulation Range: | | LABORATORY | | | | 2.5 - 3.5 | | | | + + + + + + + + | Specimen | + + | Blood | + + + + + + + | Performing | Address | City/State/Zipcode | Phone Number | | Organization | | | | + + + + + | [facility] | [address] | [place] | [phone] | | [facility] | | [address] | | | - LABORATORY | | | | + + + + + Protime INR (01/13/2017 6:52 AM PDT) + + + + + + | Component | Value | Ref Range | Performed | Pathologist | | | | | At | Signature | + + + + + + | Prothrombin | 32.2 (H) | 11.3 - 13.9 | [facility] | | | Time | | seconds | [facility] | | | | | | MEDICAL | | | | | | CENTER - | | | | | | LABORATORY | | + + + + + + | INR | 3.02 (H)Comment: Usual | 0.90 - 1.10 | [facility] | | | | Oral Anticoagulation | | [facility] | | | | Range: 2.0 - | | MEDICAL | | | | 3.0High Level Oral | | CENTER - | | | | Anticoagulation Range: | | LABORATORY | | | | 2.5 - 3.5 | | | | + + + + + + + + | Specimen | + + | Blood | + + + + + + + | Performing | Address | City/State[facility] | Phone Number | | Organization | | | | + + + + + | [facility] | [address] | [place] | [phone] | | [facility] | | [address] | | | - LABORATORY | | | | + + + + + Extra Lavender Top Tube (01/12/2017 5:58 AM PDT) + +-------+ + + + | Component | Value | Ref Range | Performed | Pathologist | | | | | At | Signature | + +-------+ + + + | Extra | Done | | [facility] | | | Lavender | | | [facility] | | | Top Tube | | | MEDICAL | | | | | | CENTER - | | | | | | LABORATORY | | + +-------+ + + + + + | Specimen | + + | Blood | + + + + + + + | Performing | Address | City/State/Zipcode | Phone Number | | Organization | | | | + + + + + | [facility] | [address] | [place] | [phone] | | [facility] | | [address] | | | - LABORATORY | | | | + + + + + Extra Green Top Tube (01/12/2017 5:58 AM PDT) + +-------+ + + + | Component | Value | Ref Range | Performed | Pathologist | | | | | At | Signature | + +-------+ + + + | Extra Green | Done | | [facility] | | | Top Tube | | | [facility] | | | | | [facility] | | | | | | CENTER - | | | | | | LABORATORY | | + +-------+ + + + + + | Specimen | + + | Blood | + + + + + + + | Performing | Address | City/State/Zipcode | Phone Number | | Organization | | | | + + + + + | [facility] | [address] | [place] | [phone] | | [facility] | | [address] | | | - LABORATORY | | | | + + + + + Protime INR (01/12/2017 5:58 AM PDT) + + + + + + | Component | Value | Ref Range | Performed | Pathologist | | | | | At | Signature | + + + + + + | Prothrombin | 35.4 (H) | 11.3 - 13.9 | [facility] | | | Time | | seconds | [facility] | | | | | | MED[facility] | | | | | | CENTER - | | | | | | LABORATORY | | + + + + + + | INR | 3.40 (H)Comment: Usual | 0.90 - 1.10 | [facility] | | | | Oral Anticoagulation | | [facility] | | | | Range: 2.0 - | | MEDICAL | | | | 3.0High Level Oral | | CENTER - | | | | Anticoagulation Range: | | LABORATORY | | | | 2.5 - 3.5 | | | | + + + + + + + + | Specimen | + + | Blood | + + + + + + + | Performing | Address | City/State/Zipcode | Phone Number | | Organization | | | | + + + + + | [facility] | [address] | [place] | [phone] | | [facility] | | [address] | | | - LABORATORY | | | | + + + + + Protime INR (01/11/2017 5:47 AM PDT) + + + + + + | Component | Value | Ref Range | Performed | Pathologist | | | | | At | Signature | + + + + + + | Prothrombin | 32.7 (H) | 11.3 - 13.9 | [facility] | | | Time | | seconds | [facility] | | | | | | [facility] | | | | | | CENTER - | | | | | | LABORATORY | | + + + + + + | INR | 3.08 (H)Comment: Usual | 0.90 - 1.10 | [facility] | | | | Oral Anticoagulation | | [facility] | | | | Range: 2.0 - | | MEDICAL | | | | 3.0High Level Oral | | CENTER - | | | | Anticoagulation Range: | | LABORATORY | | | | 2.5 - 3.5 | | | | + + + + + + + + | Specimen | + + | Blood | + + + + + + + | Performing | Address | City/State/Zipcode | Phone Number | | Organization | | | | + + + + + | [facility] | [address] | [place] | [phone] | | [facility] | | [address] | | | - LABORATORY | | | | + + + + + Urinalysis (01/10/2017 6:58 AM PDT) + + + + + + | Component | Value | Ref Range | Performed | Pathologist | | | | | At | Signature | + + + + + + | Color, | Yellow | Light Yellow, | [facility] | | | Urine | | Yellow, Straw | [facility] | | | | | | MEDICAL | | | | | | CENTER - | | | | | | LABORATORY | | + + + + + + | Clarity | Clear | Clear | [facility] | | | | | | [facility] | | | | | | MEDICAL | | | | | | CENTER - | | | | | | LABORATORY | | + + + + + + | pH, Urine | 6.0 | 5.0 - 8.0 | [facility] | | | | | | [facility] | | | | | | MEDICAL | | | | | | CENTER - | | | | | | LABORATORY | | + + + + + + | Specific | 1.017 | 1.001 - 1.030 | [facility] | | | Vian, | | | [facility] | | | Urine | | | MEDICAL | | | | | | CENTER - | | | | | | LABORATORY | | + + + + + + | Protein, | 30 mg/dL (A) | Negative | [facility] | | | Urine | | | [facility] | | | | | | MEDICAL | | | | | | CENTER - | | | | | | LABORATORY | | + + + + + + | Blood, | Small (A) | Negative | [facility] | | | Urine | | | [facility] | | | | | | MEDICAL | | | | | | CENTER - | | | | | | LABORATORY | | + + + + + + | Glucose, | Negative | Negative | [facility] | | | Urine | | | [facility] | | | | | | MEDICAL | | | | | | CENTER - | | | | | | LABORATORY | | + + + + + + | Ketones, | Negative | Negative | [facility] | | | Urine | | | [facility] | | | | | | MEDICAL | | | | | | CENTER - | | | | | | LABORATORY | | + + + + + + | Bilirubin, | Negative | Negative | [facility] | | | Urine | | | [facility] | | | | | | MEDICAL | | | | | | CENTER - | | | | | | LABORATORY | | + + + + + + | Nitrite, | Negative | Negative | [facility] | | | Urine | | | [facility] | | | | | | MEDICAL | | | | | | CENTER - | | | | | | LABORATORY | | + + + + + + | Leukocyte | Negative | Negative | [facility] | | | Esterase, | | | [facility] | | | Urine | | | MEDICAL | | | | | | CENTER - | | | | | | LABORATORY | | + + + + + + | Urobilinoge | Negative | 0.2 mg/dL, 1.0 | [facility] | | | n, Urine | | mg/dL, Negative | [facility] | | | | | | MEDICAL | | | | | | CENTER - | | | | | | LABORATORY | | + + + + + + + + | Specimen | + + | Urine - Urine | | specimen obtained by | | single | | catheterization of | | bladder (specimen) | + + + + + + + | Performing | Address | City/State/Zipcode | Phone Number | | Organization | | | | + + + + + | [facility] | [address] | [place] | [phone] | | [facility] | | [address] | | | - LABORATORY | | | | + + + + + Protime INR (01/10/2017 6:35 AM PDT) + + + + + + | Component | Value | Ref Range | Performed | Pathologist | | | | | At | Signature | + + + + + + | Prothrombin | 28.9 (H) | 11.3 - 13.9 | [facility] | | | Time | | seconds | [facility] | | | | | [facility] | | | | | | CENTER - | | | | | | LABORATORY | | + + + + + + | INR | 2.63 (H)Comment: Usual | 0.90 - 1.10 | [facility] | | | | Oral Anticoagulation | | [facility] | | | | Range: 2.0 - | | MEDICAL | | | | 3.0High Level Oral | | CENTER - | | | | Anticoagulation Range: | | LABORATORY | | | | 2.5 - 3.5 | | | | + + + + + + + + | Specimen | + + | Blood | + + + + + + + | Performing | Address | City/State/Zipcode | Phone Number | | Organization | | | | + + + + + | [facility] | [address] | [place] | [phone] | | [facility] | | [address] | | | - LABORATORY | | | | + + + + + Basic Metabolic Panel (01/10/2017 6:35 AM PDT) + + + + + + | Component | Value | Ref Range | Performed | Pathologist | | | | | At | Signature | + + + + + + | Na | 134 (L) | 136 - 149 | [facility] | | | | | mmol/L | [facility] | | | | | | MEDICAL | | | | | | CENTER - | | | | | | LABORATORY | | + + + + + + | K | 4.3 | 3.5 - 5.1 | [facility] | | | | | mmol/L | [facility] | | | | | | MEDICAL | | | | | | CENTER - | | | | | | LABORATORY | | + + + + + + | Cl | 102 | 98 - 109 mmol/L | [facility] | | | | | | [facility] | | | | | | MEDICAL | | | | | | CENTER - | | | | | | LABORATORY | | + + + + + + | CO2 | 26 | 24 - 31 mmol/L | [facility] | | | | | | [facility] | | | | | | MEDICAL | | | | | | CENTER - | | | | | | LABORATORY | | + + + + + + | Anion Gap | 6 | 3 - 16 mmol/L | [facility] | | | | | | [facility] | | | | | | MEDICAL | | | | | | CENTER - | | | | | | LABORATORY | | + + + + + + | Glucose | 86 | 70 - 109 mg/dL | [facility] | | | | | | [facility] | | | | | | MED[facility] | | | | | | CENTER - | | | | | | LABORATORY | | + + + + + + | BUN | 23 (H) | 7 - 18 mg/dL | [facility] | | | | | | [facility] | | | | | | MEDICAL | | | | | | CENTER - | | | | | | LABORATORY | | + + + + + + | Creatinine | 1.31 (H) | 0.60 - 1.30 | [facility] | | | | | mg/dL | [facility] | | | | | | MEDICAL | | | | | | CENTER - | | | | | | LABORATORY | | + + + + + + | eGFR if not | 52 (L)Comment: | >=60 | [facility] | | | | GLOMERULAR FILTRATION | mL/min/1.73m2 | [facility] | | | [facility] | RATE,ESTIMATED | | MEDICAL | | | | mL/min/1.67b7Habk than | | CENTER - | | | | 60 Chronic kidney | | LABORATORY | | | | disease,if found over a | | | | | | 3-month period.Less than | | | | | | 15 Kidney failureFor | | | | | | | | | | | | Americans,multiply the | | | | | | calculated GFR by 1.21. | | | | | | | | | | + + + + + + | Calcium | 8.7 | 8.3 - 10.5 | [facility] | | | | | mg/dL | [facility] | | | | | | MEDICAL | | | | | | CENTER - | | | | | | LABORATORY | | + + + + + + | BUN/Creatin | 17.6 | | [facility] | | | ine Ratio | | | [facility] | | | | | | MEDICAL | | | | | | CENTER - | | | | | | LABORATORY | | + + + + + + + + | Specimen | + + | Blood | + + + + + + + | Performing | Address | City/State/Zipcode | Phone Number | | Organization | | | | + + + + + | [facility] | [address] | [place] | [phone] | | [facility] | | [address] | | | - LABORATORY | | | | + + + + + CBC with Differential (01/10/2017 6:35 AM PDT) + + + + + + | Component | Value | Ref Range | Performed | Pathologist | | | | | At | Signature | + + + + + + | WBC | 5.4 | 4.0 - 11.0 K/uL | [facility] | | | | | | [facility] | | | | | | MEDICAL | | | | | | CENTER - | | | | | | LABORATORY | | + + + + + + | RBC | 3.85 (L) | 4.30 - 5.70 | [facility] | | | | | M/uL | [facility] | | | | | | MEDICAL | | | | | | CENTER - | | | | | | LABORATORY | | + + + + + + | Hemoglobin | 11.5 (L) | 13.5 - 18.0 | [facility] | | | | | g/dL | [facility] | | | | | | MEDICAL | | | | | | CENTER - | | | | | | LABORATORY | | + + + + + + | Hematocrit | 34.1 (L) | 40.0 - 51.0 % | [facility] | | | | | | [facility] | | | | | | MEDICAL | | | | | | CENTER - | | | | | | LABORATORY | | + + + + + + | MCV | 88.7 | 83.0 - 101.0 fL | [facility] | | | | | | [facility] | | | | | | MEDICAL | | | | | | CENTER - | | | | | | LABORATORY | | + + + + + + | MCH | 29.8 | 28.0 - 35.0 pg | [facility] | | | | | | [facility] | | | | | | MEDICAL | | | | | | CENTER - | | | | | | LABORATORY | | + + + + + + | MCHC | 33.6 | 32.0 - 36.0 | [facility] | | | | | g/dL | [facility] | | | | | | MEDICAL | | | | | | CENTER - | | | | | | LABORATORY | | + + + + + + | RDW-CV | 16.8 (H) | <15.0 % | [facility] | | | | | | [facility] | | | | | | MEDICAL | | | | | | CENTER - | | | | | | LABORATORY | | + + + + + + | Platelet | 347 | 140 - 440 K/uL | [facility] | | | Count | | | [facility] | | | | | | MEDICAL | | | | | | CENTER - | | | | | | LABORATORY | | + + + + + + | MPV | 8.1 | fL | [facility] | | | | | | [facility] | | | | | | MEDICAL | | | | | | CENTER - | | | | | | LABORATORY | | + + + + + + | % | 69.1 | 45.0 - 82.0 % | [facility] | | | Neutrophils | | | [facility] | | | | | | MEDICAL | | | | | | CENTER - | | | | | | LABORATORY | | + + + + + + | % | 8.2 (L) | 20.0 - 45.0 % | [facility] | | | Lymphocytes | | | [facility] | | | | | | MEDICAL | | | | | | CENTER - | | | | | | LABORATORY | | + + + + + + | % Monocytes | 11.7 | 4.0 - 12.0 % | [facility] | | | | | | [facility] | | | | | | MEDICAL | | | | | | CENTER - | | | | | | LABORATORY | | + + + + + + | % | 9.7 (H) | 0.0 - 5.0 % | [facility] | | | Eosinophils | | | [facility] | | | | | | MEDICAL | | | | | | CENTER - | | | | | | LABORATORY | | + + + + + + | % Basophils | 1.3 (H) | 0.0 - 1.0 % | [facility] | | | | | | [facility] | | | | | | MEDICAL | | | | | | CENTER - | | | | | | LABORATORY | | + + + + + + | Absolute | 3.70 | 1.80 - 8.50 | [facility] | | | Neutrophils | | K/uL | [facility] | | | | | | MEDICAL | | | | | | CENTER - | | | | | | LABORATORY | | + + + + + + | Absolute | 0.40 (L) | 0.60 - 3.20 | [facility] | | | Lymphocytes | | K/uL | [facility] | | | | | | MEDICAL | | | | | | CENTER - | | | | | | LABORATORY | | + + + + + + | Absolute | 0.60 | 0.00 - 1.00 | [facility] | | | Monocytes | | K/uL | [facility] | | | | | | MEDICAL | | | | | | CENTER - | | | | | | LABORATORY | | + + + + + + | Absolute | 0.50 (H) | 0.00 - 0.40 | [facility] | | | Eosinophils | | K/uL | [facility] | | | | | | MEDICAL | | | | | | CENTER - | | | | | | LABORATORY | | + + + + + + | Absolute | 0.10 | 0.00 - 0.10 | [facility] | | | Basophils | | K/uL | [facility] | | | | | | MEDICAL | | | | | | CENTER - | | | | | | LABORATORY | | + + + + + + + + | Specimen | + + | Blood | + + + + + + + | Performing | Address | City/State/Zipcode | Phone Number | | Organization | | | | + + + + + | [facility] | [address] | [place] | [phone] | | [facility] | | [address] | | | - LABORATORY | | | | + + + + + Protime INR (01/09/2017 6:31 AM PDT) + + + + + + | Component | Value | Ref Range | Performed | Pathologist | | | | | At | Signature | + + + + + + | Prothrombin | 24.5 (H) | 11.3 - 13.9 | [facility] | | | Time | | seconds | [facility] | | | | | | MEDICAL | | | | | | CENTER - | | | | | | LABORATORY | | + + + + + + | INR | 2.14 (H)Comment: Usual | 0.90 - 1.10 | [facility] | | | | Oral Anticoagulation | | [facility] | | | | Range: 2.0 - | | MEDICAL | | | | 3.0High Level Oral | | CENTER - | | | | Anticoagulation Range: | | LABORATORY | | | | 2.5 - 3.5 | | | | + + + + + + + + | Specimen | + + | Blood | + + + + + + + | Performing | Address | City/State/Zipcode | Phone Number | | Organization | | | | + + + + + | [facility] | [address] | [place] | [phone] | | [facility] | | [address] | | | - LABORATORY | | | | + + + + + Protime INR (01/08/2017 5:54 AM PDT) + + + + + + | Component | Value | Ref Range | Performed | Pathologist | | | | | At | Signature | + + + + + + | Prothrombin | 22.3 (H) | 11.3 - 13.9 | [facility] | | | Time | | seconds | [facility] | | | | | | MEDICAL | | | | | | CENTER - | | | | | | LABORATORY | | + + + + + + | INR | 1.90 (H)Comment: Usual | 0.90 - 1.10 | [facility] | | | | Oral Anticoagulation | | [facility] | | | | Range: 2.0 - | | MEDICAL | | | | 3.0High Level Oral | | CENTER - | | | | Anticoagulation Range: | | LABORATORY | | | | 2.5 - 3.5 | | | | + + + + + + + + | Specimen | + + | Blood | + + + + + + + | Performing | Address | City/State/Zipcode | Phone Number | | Organization | | | | + + + + + | [facility] | [address] | [place] | [phone] | | [facility] | | [address] | | | - LABORATORY | | | | + + + + + Protime INR (01/07/2017 6:38 AM PDT) + + + + + + | Component | Value | Ref Range | Performed | Pathologist | | | | | At | Signature | + + + + + + | Prothrombin | 19.9 (H) | 11.3 - 13.9 | [facility] | | | Time | | seconds | [facility] | | | | | | MEDICAL | | | | | | CENTER - | | | | | | LABORATORY | | + + + + + + | INR | 1.65 (H)Comment: Usual | 0.90 - 1.10 | [facility] | | | | Oral Anticoagulation | | [facility] | | | | Range: 2.0 - | | MEDICAL | | | | 3.0High Level Oral | | CENTER - | | | | Anticoagulation Range: | | LABORATORY | | | | 2.5 - 3.5 | | | | + + + + + + + + | Specimen | + + | Blood | + + + + + + + | Performing | Address | City/State/Zipcode | Phone Number | | Organization | | | | + + + + + | [facility] | [address] | [place] | [phone] | | [facility] | | [address] | | | - LABORATORY | | | | + + + + + Extra Lavender Top Tube (01/06/2017 7:00 AM PDT) + +-------+ + + + | Component | Value | Ref Range | Performed | Pathologist | | | | | At | Signature | + +-------+ + + + | Extra | Done | | [facility] | | | Lavender | | | [facility] | | | Top Tube | | | MEDICAL | | | | | | CENTER - | | | | | | LABORATORY | | + +-------+ + + + + + | Specimen | + + | Blood | + + + + + + + | Performing | Address | City/State/Zipcode | Phone Number | | Organization | | | | + + + + + | [facility] | [address] | [place] | [phone] | | [facility] | | [address] | | | - LABORATORY | | | | + + + + + Extra Green Top Tube (01/06/2017 7:00 AM PDT) + +-------+ + + + | Component | Value | Ref Range | Performed | Pathologist | | | | | At | Signature | + +-------+ + + + | Extra Green | Done | | [facility] | | | Top Tube | | | [facility] | | | | | | MEDICAL | | | | | | CENTER - | | | | | | LABORATORY | | + +-------+ + + + + + | Specimen | + + | Blood | + + + + + + + | Performing | Address | City/State/Zipcode | Phone Number | | Organization | | | | + + + + + | [facility] | [address] | [place] | [phone] | | [facility] | | [address] | | | - LABORATORY | | | | + + + + + Protime INR (01/06/2017 6:32 AM PDT) + + + + + + | Component | Value | Ref Range | Performed | Pathologist | | | | | At | Signature | + + + + + + | Prothrombin | 19.0 (H) | 11.3 - 13.9 | [facility] | | | Time | | seconds | [facility] | | | | | | MEDICAL | | | | | | CENTER - | | | | | | LABORATORY | | + + + + + + | INR | 1.55 (H)Comment: Usual | 0.90 - 1.10 | [facility] | | | | Oral Anticoagulation | | [facility] | | | | Range: 2.0 - | | MEDICAL | | | | 3.0High Level Oral | | CENTER - | | | | Anticoagulation Range: | | LABORATORY | | | | 2.5 - 3.5 | | | | + + + + + + + + | Specimen | + + | Blood | + + + + + + + | Performing | Address | City/State/Zipcode | Phone Number | | Organization | | | | + + + + + | [facility] | [address] | [place] | [phone] | | [facility] | | [address] | | | - LABORATORY | | | | + + + + + Extra Green Top Tube (01/05/2017 6:35 AM PDT) + +-------+ + + + | Component | Value | Ref Range | Performed | Pathologist | | | | | At | Signature | + +-------+ + + + | Extra Green | Done | | [facility] | | | Top Tube | | | [facility] | | | | | | MEDICAL | | | | | | CENTER - | | | | | | LABORATORY | | + +-------+ + + + + + | Specimen | + + | Blood | + + + + + + + | Performing | Address | City/State/Zipcode | Phone Number | | Organization | | | | + + + + + | [facility] | [address] | [place] | [phone] | | [facility] | | [address] | | | - LABORATORY | | | | + + + + + Extra Lavender Top Tube (01/05/2017 6:35 AM PDT) + +-------+ + + + | Component | Value | Ref Range | Performed | Pathologist | | | | | At | Signature | + +-------+ + + + | Extra | Done | | [facility] | | | Lavender | | | [facility] | | | Top Tube | | | MEDICAL | | | | | | CENTER - | | | | | | LABORATORY | | + +-------+ + + + + + | Specimen | + + | Blood | + + + + + + + | Performing | Address | City/State/Zipcode | Phone Number | | Organization | | | | + + + + + | [facility] | [address] | [place] | [phone] | | [facility] | | [address] | | | - LABORATORY | | | | + + + + + Protime INR (01/05/2017 6:31 AM PDT) + + + + + + | Component | Value | Ref Range | Performed | Pathologist | | | | | At | Signature | + + + + + + | Prothrombin | 16.7 (H) | 11.3 - 13.9 | [facility] | | | Time | | seconds | [facility] | | | | | | MEDICAL | | | | | | CENTER - | | | | | | LABORATORY | | + + + + + + | INR | 1.32 (H)Comment: Usual | 0.90 - 1.10 | [facility] | | | | Oral Anticoagulation | | [facility] | | | | Range: 2.0 - | | MEDICAL | | | | 3.0High Level Oral | | CENTER - | | | | Anticoagulation Range: | | LABORATORY | | | | 2.5 - 3.5 | | | | + + + + + + + + | Specimen | + + | Blood | + + + + + + + | Performing | Address | City/State/Zipcode | Phone Number | | Organization | | | | + + + + + | [facility] | [address] | [place] | [phone] | | [facility] | | [address] | | | - LABORATORY | | | | + + + + + Vitamin D, 25-Hydroxy (01/04/2017 6:39 AM PDT) + +-------+ + + + | Component | Value | Ref Range | Performed | Pathologist | | | | | At | Signature | + +-------+ + + + | Vitamin D, | 37 | 30 - 80 ng/mL | [facility] | | | 25 Hydroxy | | | [facility] | | | | | | MEDICAL | | | | | | CENTER - | | | | | | LABORATORY | | + +-------+ + + + + + | Specimen | + + | Blood | + + + + + + + | Performing | Address | City/State/Zipcode | Phone Number | | Organization | | | | + + + + + | [facility] | [address] | [place] | [phone] | | [facility] | | [address] | | | - LABORATORY | | | | + + + + + Basic Metabolic Panel (01/04/2017 6:38 AM PDT) + + + + + + | Component | Value | Ref Range | Performed | Pathologist | | | | | At | Signature | + + + + + + | Na | 136 | 136 - 149 | [facility] | | | | | mmol/L | [facility] | | | | | | MEDICAL | | | | | | CENTER - | | | | | | LABORATORY | | + + + + + + | K | 4.2 | 3.5 - 5.1 | [facility] | | | | | mmol/L | [facility] | | | | | | MEDICAL | | | | | | CENTER - | | | | | | LABORATORY | | + + + + + + | Cl | 103 | 98 - 109 mmol/L | [facility] | | | | | | [facility] | | | | | | MEDICAL | | | | | | CENTER - | | | | | | LABORATORY | | + + + + + + | CO2 | 27 | 24 - 31 mmol/L | [facility] | | | | | | [facility] | | | | | | MEDICAL | | | | | | CENTER - | | | | | | LABORATORY | | + + + + + + | Anion Gap | 6 | 3 - 16 mmol/L | [facility] | | | | | | [facility] | | | | | | MEDICAL | | | | | | CENTER - | | | | | | LABORATORY | | + + + + + + | Glucose | 93 | 70 - 109 mg/dL | [facility] | | | | | | [facility] | | | | | | MEDICAL | | | | | | CENTER - | | | | | | LABORATORY | | + + + + + + | BUN | 17 | 7 - 18 mg/dL | [facility] | | | | | | [facility] | | | | | | MEDICAL | | | | | | CENTER - | | | | | | LABORATORY | | + + + + + + | Creatinine | 1.29 | 0.60 - 1.30 | [facility] | | | | | mg/dL | [facility] | | | | | | MEDICAL | | | | | | CENTER - | | | | | | LABORATORY | | + + + + + + | eGFR if not | 53 (L)Comment: | >=60 | [facility] | | | | GLOMERULAR FILTRATION | mL/min/1.73m2 | [facility] | | | [place] | RATE,ESTIMATED | | MEDICAL | | | | mL/min/1.97q3Blvn than | | CENTER - | | | | 60 Chronic kidney | | LABORATORY | | | | disease,if found over a | | | | | | 3-month period.Less than | | | | | | 15 Kidney failureFor | | | | | | | | | | | | Americans,multiply the | | | | | | calculated GFR by 1.21. | | | | | | | | | | + + + + + + | Calcium | 8.7 | 8.3 - 10.5 | [facility] | | | | | mg/dL | [facility] | | | | | | MEDICAL | | | | | | CENTER - | | | | | | LABORATORY | | + + + + + + | BUN/Creatin | 13.2 | | [facility] | | | ine Ratio | | | [facility] | | | | | | MEDICAL | | | | | | CENTER - | | | | | | LABORATORY | | + + + + + + + + | Specimen | + + | Blood | + + + + + + + | Performing | Address | City/State/Zipcode | Phone Number | | Organization | | | | + + + + + | [facility] | [address] | [place] | [phone] | | [facility] | | [address] | | | - LABORATORY | | | | + + + + + CBC no Differential (01/04/2017 6:38 AM PDT) + + + + + + | Component | Value | Ref Range | Performed | Pathologist | | | | | At | Signature | + + + + + + | WBC | 6.8 | 4.0 - 11.0 K/uL | [facility] | | | | | | [facility] | | | | | | MEDICAL | | | | | | CENTER - | | | | | | LABORATORY | | + + + + + + | RBC | 3.61 (L) | 4.30 - 5.70 | [facility] | | | | | M/uL | [facility] | | | | | | MEDICAL | | | | | | CENTER - | | | | | | LABORATORY | | + + + + + + | Hemoglobin | 10.3 (L) | 13.5 - 18.0 | [facility] | | | | | g/dL | [facility] | | | | | | MEDICAL | | | | | | CENTER - | | | | | | LABORATORY | | + + + + + + | Hematocrit | 32.2 (L) | 40.0 - 51.0 % | [facility] | | | | | | [facility] | | | | | | MEDICAL | | | | | | CENTER - | | | | | | LABORATORY | | + + + + + + | MCV | 89.2 | 83.0 - 101.0 fL | [facility] | | | | | | [facility] | | | | | | MEDICAL | | | | | | CENTER - | | | | | | LABORATORY | | + + + + + + | MCH | 28.6 | 28.0 - 35.0 pg | [facility] | | | | | | [facility] | | | | | | MEDICAL | | | | | | CENTER - | | | | | | LABORATORY | | + + + + + + | MCHC | 32.1 | 32.0 - 36.0 | [facility] | | | | | g/dL | [facility] | | | | | | MEDICAL | | | | | | CENTER - | | | | | | LABORATORY | | + + + + + + | RDW-CV | 16.2 (H) | <15.0 % | [facility] | | | | | | [facility] | | | | | | MEDICAL | | | | | | CENTER - | | | | | | LABORATORY | | + + + + + + | Platelet | 424 | 140 - 440 K/uL | [facility] | | | Count | | | [facility] | | | | | | MEDICAL | | | | | | CENTER - | | | | | | LABORATORY | | + + + + + + | MPV | 8.4 | fL | [facility] | | | | | | [facility] | | | | | | MEDICAL | | | | | | CENTER - | | | | | | LABORATORY | | + + + + + + + + | Specimen | + + | Blood | + + + + + + + | Performing | Address | City/State/Zipcode | Phone Number | | Organization | | | | + + + + + | [facility] | [address] | [place] | [phone] | | [facility] | | [address] | | | - LABORATORY | | | | + + + + + Sally BENNETT (01/04/2017 6:38 AM PDT) + + + + + + | Component | Value | Ref Range | Performed | Pathologist | | | | | At | Signature | + + + + + + | Prothrombin | 15.4 (H) | 11.3 - 13.9 | [facility] | | | Time | | seconds | [facility] | | | | | | MEDICAL | | | | | | CENTER - | | | | | | LABORATORY | | + + + + + + | INR | 1.19 (H)Comment: Usual | 0.90 - 1.10 | [facility] | | | | Oral Anticoagulation | | [facility] | | | | Range: 2.0 - | | MEDICAL | | | | 3.0High Level Oral | | CENTER - | | | | Anticoagulation Range: | | LABORATORY | | | | 2.5 - 3.5 | | | | + + + + + + + + | Specimen | + + | Blood | + + + + + + + | Performing | Address | City/State/Zipcode | Phone Number | | Organization | | | | + + + + + | [facility] | [address] | [place] | [phone] | | [facility] | | [address] | | | - LABORATORY | | | | + + + + + Protime INR (01/03/2017 6:38 AM PDT) + + + + + + | Component | Value | Ref Range | Performed | Pathologist | | | | | At | Signature | + + + + + + | Prothrombin | 14.8 (H) | 11.3 - 13.9 | [facility] | | | Time | | seconds | [facility] | | | | | | MEDICAL | | | | | | CENTER - | | | | | | LABORATORY | | + + + + + + | INR | 1.13 (H)Comment: Usual | 0.90 - 1.10 | [facility] | | | | Oral Anticoagulation | | [facility] | | | | Range: 2.0 - | | MEDICAL | | | | 3.0High Level Oral | | CENTER - | | | | Anticoagulation Range: | | LABORATORY | | | | 2.5 - 3.5 | | | | + + + + + + + + | Specimen | + + | Blood | + + + + + + + | Performing | Address | City/State/Zipcode | Phone Number | | Organization | | | | + + + + + | [facility] | [address] | [place] | [phone] | | [facility] | | [address] | | | - LABORATORY | | | | + + + + + B Type Natriuretic Peptide (01/02/2017 6:32 AM PDT) + +---------+ + + + | Component | Value | Ref Range | Performed | Pathologist | | | | | At | Signature | + +---------+ + + + | BNP | 693 (H) | <100 pg/mL | [facility] | | | | | | [facility] | | | | | | MEDICAL | | | | | | CENTER - | | | | | | LABORATORY | | + +---------+ + + + + + | Specimen | + + | Blood | + + + + + + + | Performing | Address | City/State/Zipcode | Phone Number | | Organization | | | | + + + + + | [facility] | [address] | [place] | [phone] | | [facility] | | [address] | | | - LABORATORY | | | | + + + + + Basic Metabolic Panel (01/02/2017 6:32 AM PDT) + + + + + + | Component | Value | Ref Range | Performed | Pathologist | | | | | At | Signature | + + + + + + | Na | 136 | 136 - 149 | [facility] | | | | | mmol/L | [facility] | | | | | | MEDICAL | | | | | | CENTER - | | | | | | LABORATORY | | + + + + + + | K | 3.6 | 3.5 - 5.1 | [facility] | | | | | mmol/L | [facility] | | | | | | MEDICAL | | | | | | CENTER - | | | | | | LABORATORY | | + + + + + + | Cl | 101 | 98 - 109 mmol/L | [facility] | | | | | | [facility] | | | | | | MEDICAL | | | | | | CENTER - | | | | | | LABORATORY | | + + + + + + | CO2 | 28 | 24 - 31 mmol/L | [facility] | | | | | | [facility] | | | | | | MEDICAL | | | | | | CENTER - | | | | | | LABORATORY | | + + + + + + | Anion Gap | 7 | 3 - 16 mmol/L | [facility] | | | | | | [facility] | | | | | | MEDICAL | | | | | | CENTER - | | | | | | LABORATORY | | + + + + + + | Glucose | 87 | 70 - 109 mg/dL | [facility] | | [facility] | | | | | | MEDICAL | | | | | | CENTER - | | | | | | LABORATORY | | + + + + + + | BUN | 15 | 7 - 18 mg/dL | [facility] | | | | | | [facility] | | | | | | MEDICAL | | | | | | CENTER - | | | | | | LABORATORY | | + + + + + + | Creatinine | 1.10 | 0.60 - 1.30 | [facility] | | | | | mg/dL | [facility] | | | | | | [facility] | | | | | | [facility] - | | | | | | LABORATORY | | + + + + + + | eGFR if not | >60Comment: GLOMERULAR | >=60 | [facility] | | | | FILTRATION | mL/min/1.73m2 | [facility] | | | [place] | RATE,ESTIMATED | | MEDICAL | | | | mL/min/1.53m4Cuhy than | | CENTER - | | | | 60 Chronic kidney | | LABORATORY | | | | disease,if found over a | | | | | | 3-month period.Less than | | | | | | 15 Kidney failureFor | | | | | | | | | | | | Americans,multiply the | | | | | | calculated GFR by 1.21. | | | | | | | | | | + + + + + + | Calcium | 8.7 | 8.3 - 10.5 | [facility] | | | | | mg/dL | [facility] | | | | | [facility] | | | | | | C[facility] - | | | | | | LABORATORY | | + + + + + + | BUN/Creatin | 13.6 | | [facility] | | | ine Ratio | | | [facility] | | | | | | [facility] | [facility] | | | | CENTER - | | | | | | LABORATORY | | + + + + + + + + | Specimen | + + | Blood | + + + + + + + | Performing | Address | City/State/Zipcode | Phone Number | | Organization | | | | + + + + + | [facility] | [address] | [place] | [phone] | | [facility] | | [address] | | | - LABORATORY | | | | + + + + + CBC with Differential (01/02/2017 6:32 AM PDT) + + + + + + | Component | Value | Ref Range | Performed | Pathologist | | | | | At | Signature | + + + + + + | WBC | 7.9 | 4.0 - 11.0 K/uL | [facility] | | | | | | [facility] | | | | | | [facility] | | | | | | C[facility] - | | | | | | LABORATORY | | + + + + + + | RBC | 3.71 (L) | 4.30 - 5.70 | [facility] | | | | | M/uL | [facility] | | | | | | [facility] | | | | | | CENTER - | | | | | | LABORATORY | | + + + + + + | Hemoglobin | 11.1 (L) | 13.5 - 18.0 | [facility] | | | | | g/dL | [facility] | | | | | | [facility] | | | | | | CENTER - | | | | | | LABORATORY | | + + + + + + | Hematocrit | 32.9 (L) | 40.0 - 51.0 % | [facility] | | | | | | [facility] | | | | | | [facility] | | | | | | CENTER - | | | | | | LABORATORY | | + + + + + + | MCV | 88.8 | 83.0 - 101.0 fL | [facility] | | | | | | [facility] | | | | | | [facility] | | | | | | CENTER - | | | | | | LABORATORY | | + + + + + + | MCH | 29.9 | 28.0 - 35.0 pg | [facility] | | | | | | [facility] | | | | | | [facility] | | | | | | CENTER - | | | | | | LABORATORY | | + + + + + + | MCHC | 33.6 | 32.0 - 36.0 | [facility] | | | | | g/dL | [facility] | | | | | | [facility] | | | | | | CENTER - | | | | | | LABORATORY | | + + + + + + | RDW-CV | 16.3 (H) | <15.0 % | [facility] | | | | | | [facility] | | | | | | [facility] | | | | | | CENTER - | | | | | | LABORATORY | | + + + + + + | Platelet | 441 (H) | 140 - 440 K/uL | [facility] | | | Count | | | [facility] | | | | | | [facility] | | | | | | CENTER - | | | | | | LABORATORY | | + + + + + + | MPV | 8.1 | fL | [facility] | | | | | | [facility] | | | | | | [facility] | | | | | | CENTER - | | | | | | LABORATORY | | + + + + + + | % | 76.5 | 45.0 - 82.0 % | [facility] | | | Neutrophils | | | [facility] | | | | | | MEDICAL | | | | | | CENTER - | | | | | | LABORATORY | | + + + + + + | % | 6.0 (L) | 20.0 - 45.0 % | [facility] | | | Lymphocytes | | | [facility] | | | | | | MEDICAL | | | | | | CENTER - | | | | | | LABORATORY | | + + + + + + | % Monocytes | 9.5 | 4.0 - 12.0 % | [facility] | | | | | | [facility] | | | | | | [facility] | | | | | | CENTER - | | | | | | LABORATORY | | + + + + + + | % | 7.0 (H) | 0.0 - 5.0 % | [facility] | | | Eosinophils | | | [facility] | | | | | | MEDICAL | | | | | | CENTER - | | | | | | LABORATORY | | + + + + + + | % Basophils | 1.0 | 0.0 - 1.0 % | [facility] | | | | | | [facility] | | | | | | [facility]ICAL | | | | | | CENTER - | | | | | | LABORATORY | | + + + + + + | Absolute | 6.00 | 1.80 - 8.50 | [facility] | | | Neutrophils | | K/uL | [facility] | | | | | | MEDICAL | | | | | | CENTER - | | | | | | LABORATORY | | + + + + + + | Absolute | 0.50 (L) | 0.60 - 3.20 | [facility] | | | Lymphocytes | | K/uL | [facility] | | | | | | MEDICAL | | | | | | CENTER - | | | | | | LABORATORY | | + + + + + + | Absolute | 0.70 | 0.00 - 1.00 | [facility] | | | Monocytes | | K/uL | [facility] | | | | | | MEDICAL | | | | | | CENTER - | | | | | | LABORATORY | | + + + + + + | Absolute | 0.60 (H) | 0.00 - 0.40 | [facility] | | | Eosinophils | | K/uL | [facility] | | | | | | MEDICAL | | | | | | CENTER - | | | | | | LABORATORY | | + + + + + + | Absolute | 0.10 | 0.00 - 0.10 | [facility] | | | Basophils | | K/uL | [facility] | | | | | | MEDICAL | | | | | | CENTER - | | | | | | LABORATORY | | + + + + + + + + | Specimen | + + | Blood | + + + + + + + | Performing | Address | City/State/Zipcode | Phone Number | | Organization | | | | + + + + + | [facility] | [address] | [place] | [phone] | | [facility] | | [address] | | | - LABORATORY | | | | + + + + + Protime INR (01/02/2017 6:32 AM PDT) + + + + + + | Component | Value | Ref Range | Performed | Pathologist | | | | | At | Signature | + + + + + + | Prothrombin | 15.0 (H) | 11.3 - 13.9 | [facility] | | | Time | | seconds | [facility] | | | | | | MEDICAL | | | | | | CENTER - | | | | | | LABORATORY | | + + + + + + | INR | 1.15 (H)Comment: Usual | 0.90 - 1.10 | [facility] | | | | Oral Anticoagulation | | [facility] | | | | Range: 2.0 - | | MEDICAL | | | | 3.0High Level Oral | | CENTER - | | | | Anticoagulation Range: | | LABORATORY | | | | 2.5 - 3.5 | | | | + + + + + + + + | Specimen | + + | Blood | + + + + + + + | Performing | Address | City/State/Zipcode | Phone Number | | Organization | | | | + + + + + | [facility] | [address] | [place] | [phone] | | [facility] | | [address] | | | - LABORATORY | | | | + + + + + Urinalysis (01/01/2017 9:51 AM PDT) + + + + + + | Component | Value | Ref Range | Performed | Pathologist | | | | | At | Signature | + + + + + + | Color, | Yellow | Light Yellow, | [facility] | | | Urine | | Yellow, Straw | [facility] | | | | | | MEDICAL | | | | | | CENTER - | | | | | | LABORATORY | | + + + + + + | Clarity | Cloudy (A) | Clear | [facility] | | | | | | [facility] | | | | | | MEDICAL | | | | | | CENTER - | | | | | | LABORATORY | | + + + + + + | pH, Urine | 9.0 (H) | 5.0 - 8.0 | [facility] | | | | | | [facility] | | | | | | MEDICAL | | | | | | CENTER - | | | | | | LABORATORY | | + + + + + + | Specific | 1.012 | 1.001 - 1.030 | [facility] | | | Vian, | | | [facility] | | | Urine | | | MEDICAL | | | | | | CENTER - | | | | | | LABORATORY | | + + + + + + | Protein, | Negative | Negative | [facility] | | | Urine | | | [facility] | | | | | | MEDICAL | | | | | | CENTER - | | | | | | LABORATORY | | + + + + + + | Blood, | Small (A) | Negative | [facility] | | | Urine | | | [facility] | | | | | | MEDICAL | | | | | | CENTER - | | | | | | LABORATORY | | + + + + + + | Glucose, | Negative | Negative | [facility] | | | Urine | | | [facility] | | | | | | MEDICAL | | | | | | CENTER - | | | | | | LABORATORY | | + + + + + + | Ketones, | Negative | Negative | [facility] | | | Urine | | | [facility] | | | | | | MEDICAL | | | | | | CENTER - | | | | | | LABORATORY | | + + + + + + | Bilirubin, | Negative | Negative | [facility] | | | Urine | | | [facility] | | | | | | MEDICAL | | | | | | CENTER - | | | | | | LABORATORY | | + + + + + + | Nitrite, | Negative | Negative | [facility] | | | Urine | | | [facility] | | | | | | MEDICAL | | | | | | CENTER - | | | | | | LABORATORY | | + + + + + + | Leukocyte | Negative | Negative | [facility] | | | Esterase, | | | [facility] | | | Urine | | | MEDICAL | | | | | | CENTER - | | | | | | LABORATORY | | + + + + + + | Urobilinoge | Negative | 0.2 mg/dL, 1.0 | [facility] | | | n, Urine | | mg/dL, Negative | [facility] | | | | | | MEDICAL | | | | | | CENTER - | | | | | | LABORATORY | | + + + + + + + + | Specimen | + + | Urine | + + + + + + + | Performing | Address | City/State/Zipcode | Phone Number | | Organization | | | | + + + + + | [facility] | [address] | [place] | [phone] | | [facility] | | [address] | | | - LABORATORY | | | | + + + + + Extra Lavender Top Tube (01/01/2017 6:11 AM PDT) + +-------+ + + + | Component | Value | Ref Range | Performed | Pathologist | | | | | At | Signature | + +-------+ + + + | Extra | Done | | [facility] | | | Lavender | | | [facility] | | | Top Tube | | | MEDICAL | | | | | | CENTER - | | | | | | LABORATORY | | + +-------+ + + + + + | Specimen | + + | Blood | + + + + + + + | Performing | Address | City/State/Zipcode | Phone Number | | Organization | | | | + + + + + | [facility] | [address] | [place] | [phone] | | [facility] | | [address] | | | - LABORATORY | | | | + + + + + Comprehensive Metabolic Panel (01/01/2017 6:10 AM PDT) + + + + + + | Component | Value | Ref Range | Performed | Pathologist | | | | | At | Signature | + + + + + + | Na | 136 | 136 - 149 | [facility] | | | | | mmol/L | [facility] | | | | | | MEDICAL | | | | | | CENTER - | | | | | | LABORATORY | | + + + + + + | K | 3.5 | 3.5 - 5.1 | [facility] | | | | | mmol/L | [facility] | | | | | | MEDICAL | | | | | | CENTER - | | | | | | LABORATORY | | + + + + + + | Cl | 100 | 98 - 109 mmol/L | [facility] | | | | | | [facility] | | | | | | MEDICAL | | | | | | CENTER - | | | | | | LABORATORY | | + + + + + + | CO2 | 27 | 24 - 31 mmol/L | [facility] | | | | | | [facility] | | | | | | MEDICAL | | | | | | CENTER - | | | | | | LABORATORY | | + + + + + + | Anion Gap | 9 | 3 - 16 mmol/L | [facility] | | | | | | [facility] | | | | | | MEDICAL | | | | | | CENTER - | | | | | | LABORATORY | | + + + + + + | Glucose | 99 | 70 - 109 mg/dL | [facility] | | | | | | [facility] | | | | | | MEDICAL | | | | | | CENTER - | | | | | | LABORATORY | | + + + + + + | BUN | 19 (H) | 7 - 18 mg/dL | [facility] | | | | | | [facility] | | | | | | [facility] | | | | | | CENTER - | | | | | | LABORATORY | | + + + + + + | Creatinine | 1.10 | 0.60 - 1.30 | [facility] | | | | | mg/dL | [facility] | | | | | | MEDICAL | | | | | | CENTER - | | | | | | LABORATORY | | + + + + + + | eGFR if not | >60Comment: GLOMERULAR | >=60 | [facility] | | | | FILTRATION | mL/min/1.73m2 | [facility] | | | [place] | RATE,ESTIMATED | | MEDICAL | | | | mL/min/1.23y9Rplj than | | CENTER - | | | | 60 Chronic kidney | | LABORATORY | | | | disease,if found over a | | | | | | 3-month period.Less than | | | | | | 15 Kidney failureFor | | | | | | | | | | | | Americans,multiply the | | | | | | calculated GFR by 1.21. | | | | | | | | | | + + + + + + | Calcium | 8.7 | 8.3 - 10.5 | [facility] | | | | | mg/dL | [facility] | | | | | | MEDICAL | | | | | | CENTER - | | | | | | LABORATORY | | + + + + + + | Albumin | 2.2 (L) | 3.2 - 5.0 g/dL | [facility] | | | | | | [facility] | | | | | | MEDICAL | | | | | | CENTER - | | | | | | LABORATORY | | + + + + + + | Bilirubin | 1.0 | 0.1 - 1.5 mg/dL | [facility] | | | Total | | | [facility] | | | | | | MEDICAL | | | | | | CENTER - | | | | | | LABORATORY | | + + + + + + | Total | 5.0 (L) | 6.0 - 7.8 g/dL | [facility] | | | Protein | | | [facility] | | | | | | MEDICAL | | | | | | CENTER - | | | | | | LABORATORY | | + + + + + + | AST | 40 | 10 - 42 U/L | [facility] | | | | | | [facility] | | | | | | MEDICAL | | | | | | CENTER - | | | | | | LABORATORY | | + + + + + + | ALT | 49 (H) | 6 - 45 U/L | [facility] | | | | | | [facility] | | | | | | MEDICAL | | | | | | CENTER - | | | | | | LABORATORY | | + + + + + + | Alkaline | 120 (H) | 40 - 110 U/L | [facility] | | | Phosphatase | | | [facility] | | | | | | MEDICAL | | | | | | CENTER - | | | | | | LABORATORY | | + + + + + + | Globulin | 2.8 | 2.1 - 3.8 g/dL | [facility] | | | | | | [facility] | | | | | | MEDICAL | | | | | | CENTER - | | | | | | LABORATORY | | + + + + + + | Albumin/Talia | 0.8 | 0.8 - 2.0 | [facility] | | | bulin Ratio | | | [facility] | | | | | | MEDICAL | | | | | | CENTER - | | | | | | LABORATORY | | + + + + + + | BUN/Creatin | 17.3 | | [facility] | | | ine Ratio | | | [facility] | | | | | | MEDICAL | | | | | | CENTER - | | | | | | LABORATORY | | + + + + + + + + | Specimen | + + | Blood | + + + + + + + | Performing | Address | City/State/Zipcode | Phone Number | | Organization | | | | + + + + + | [facility] | [address] | [place], [place] | [phone] | | [facility] | | [address] | | | - LABORATORY | | | | + + + + + documented in this encounter Visit Diagnoses + + | Diagnosis | + + | Femur fracture, left (HCC) - Primary Closed fracture of unspecified part of femur | + + | Acute diastolic heart failure (HCC) Acute diastolic heart failure | + + | Anticoagulant long-term use Encounter for long-term (current) use of anticoagulants | + + | Atrial flutter, unspecified type (HCC) | + + | Closed fracture of neck of left femur with routine healing, subsequent encounter | + + | Other closed fracture of shaft of right femur with routine healing, subsequent | | encounter | + + | Postoperative hemorrhagic shock, initial encounter | + + | Benign non-nodular prostatic hyperplasia with lower urinary tract symptoms | + + | Urinary retention due to benign prostatic hyperplasia | + + | Closed fracture of neck of right femur with routine healing, subsequent encounter | + + | Open wounds of multiple sites of hand, left, initial encounter | + + | Open wounds of multiple sites of hand, right, initial encounter | + + | Antalgic gait Abnormality of gait | + + | Dehydration, mild Dehydration | + + | Orthostasis Orthostatic hypotension | + + | Femur fracture, right (HCC) Closed fracture of unspecified part of femur | + + | Benign prostatic hyperplasia with lower urinary tract symptoms | + + documented in this encounter Administered Medications + +--------+ +--------+------+------+ | Medication Order | MAR | Action | Dose | Rate | Site | | | Action | Date | | | | + +--------+ +--------+------+------+ | amiodarone (PACERONE) tablet | Given | 01/18/20 | 200 mg | | | | 200 mg 200 mg, Oral, DAILY, | | 17 9:22 | | | | | First dose (after last | | AM PDT | | | | | modification) on Sat01/01/17 at | | | | | | | 0900, Discharge Readmit | | | | | | + +--------+ +--------+------+------+ +-------+ +--------+---+---+ | Given | 01/17/20 | 200 mg | | | | | 17 8:21 | | | | | | AM PDT | | | | +-------+ +--------+---+---+ | Given | 01/16/20 | 200 mg | | | | | 17 8:07 | | | | | | AM PDT | | | | +-------+ +--------+---+---+ +---+---+ | | | +---+---+ + +-------+ +-------+---+---+ | atorvaSTATin (LIPITOR) tablet | Given | 06/28/20 | 20 mg | | | | 20 mg 20 mg, Oral, NIGHTLY, | | 17 9:56 | | | | | First dose (after last | | PM PDT | | | | | modification) on 12/31/16 at | | | | | | | 2100, Discharge Readmit | | | | | | + +-------+ +-------+---+---+ +-------+ +-------+---+---+ | Given | 01/16/20 | 20 mg | | | | | 17 9:12 | | | | | | PM PDT | | | | +-------+ +-------+---+---+ | Given | 01/15/20 | 20 mg | | | | | 17 8:56 | | | | | | PM PDT | | | | +-------+ +-------+---+---+ +---+---+ | | | +---+---+ + +-------+ +-------+---+---+ | baclofen (LIORESAL) tablet 10 | Given | 01/12/20 | 10 mg | | | | mg 10 mg, Oral, ONCE, Fri | | 17 10:32 | | | | | 01/11/17 at 1015, For 1 dose | | AM PDT | | | | + +-------+ +-------+---+---+ +---+---+ | | | +---+---+ + +-------+ +--------+---+---+ | docusate sodium (COLACE) | Given | 01/18/20 | 100 mg | | | | capsule 100 mg 100 mg, Oral, 2 | | 17 4:28 | | | | | TIMES DAILY PRN, Constipation, | | AM PDT | | | | | Starting 12/31/16 at 1551, 1st | | | | | | | line agent for constipation | | | | | | | relief., Discharge Readmit | | | | | | + +-------+ +--------+---+---+ +-------+ +--------+---+---+ | Given | 01/13/20 | 100 mg | | | | | 17 8:46 | | | | | | PM PDT | | | | +-------+ +--------+---+---+ | Given | 01/12/20 | 100 mg | | | | | 17 8:25 | | | | | | AM PDT | | | | +-------+ +--------+---+---+ +---+---+ | | | +---+---+ + +-------+ +--------+---+ + | heparin 5,000 units/mL | Given | 01/11/20 | 5,000 | | Abdomen- | | injection 5,000 Units 5,000 | | 17 8:14 | Units | | RUQ | | Units, Subcutaneous, EVERY 12 | | AM PDT | | | | | HOURS (2 times per day), First | | | | | | | dose (after last modification) on | | | | | | | 12/31/16 at 2100, Discharge | | | | | | | Readmit | | | | | | + +-------+ +--------+---+ + +-------+ +--------+---+ + | Given | 01/10/20 | 5,000 | | Abdomen- | | | 17 9:52 | Units | | LLQ | | | PM PDT | | | | +-------+ +--------+---+ + | Given | 01/10/20 | 5,000 | | Abdomen- | | | 17 8:24 | Units | | RLQ | | | AM PDT | | | | +-------+ +--------+---+ + +---+---+ | | | +---+---+ + +-------+ +---+---+---+ | lidocaine (XYLOCAINE) 2% jelly | Given | 01/04/20 | | | | | (uro-jet) Urethral, 4 TIMES | | 17 11:08 | | | | | DAILY franck BENNETT, | | AM PDT | | | | | Starting 01/01/17 at 0917 | | | | | | + +-------+ +---+---+---+ +-------+ +---+---+---+ | Given | 01/03/20 | | | | | | 17 11:29 | | | | | | PM PDT | | | | +-------+ +---+---+---+ | Given | 01/03/20 | | | | | | 17 5:57 | | | | | | AM PDT | | | | +-------+ +---+---+---+ +---+---+ | | | +---+---+ + +-------+ + +---+---+ | methocarbamol (ROBAXIN) tablet | Given | 01/18/20 | 1,000 mg | | | | 1,000 mg 1,000 mg, Oral, EVERY 6 | | 17 1:52 | | | | | HOURS PRN, Muscle spasms, | | PM PDT | | | | | Starting 01/05/17 at 1604 | | | | | | + +-------+ + +---+---+ +-------+ + +---+---+ | Given | 01/18/20 | 1,000 mg | | | | | 17 4:28 | | | | | | AM PDT | | | | +-------+ + +---+---+ | Given | 01/17/20 | 1,000 mg | | | | | 17 2:45 | | | | | | PM PDT | | | | +-------+ + +---+---+ +---+---+ | | | +---+---+ + +-------+ +---------+---+---+ | metoprolol tartrate (LOPRESSOR) | Given | 01/10/20 | 12.5 mg | | | | tablet 12.5 mg 12.5 mg, Oral, 2 | | 17 8:27 | | | | | TIMES DAILY, First dose (after | | AM PDT | | | | | last modification) on Sat01/04/17 | | | | | | | at 2100, Hold for SBP <90, | | | | | | | Discharge Readmit | | | | | | + +-------+ +---------+---+---+ +-------+ +---------+---+---+ | Given | 01/09/20 | 12.5 mg | | | | | 17 9:16 | | | | | | PM PDT | | | | +-------+ +---------+---+---+ | Given | 01/08/20 | 12.5 mg | | | | | 17 9:08 | | | | | | PM PDT | | | | +-------+ +---------+---+---+ +---+---+ | | | +---+---+ + +-------+ +---------+---+---+ | metoprolol tartrate (LOPRESSOR) | Given | 01/18/20 | 12.5 mg | | | | tablet 12.5 mg 12.5 mg, Oral, | | 17 9:23 | | | | | DAILY, First dose (after last | | AM PDT | | | | | modification) on [facility] 01/10/17 at | | | | | | | 0900, Hold for SBP <90, Discharge | | | | | | | Readmit | | | | | | + +-------+ +---------+---+---+ +-------+ +---------+---+---+ | Given | 01/16/20 | 12.5 mg | | | | | 17 8:07 | | | | | | AM PDT | | | | +-------+ +---------+---+---+ | Given | 01/15/20 | 12.5 mg | | | | | 17 9:41 | | | | | | AM PDT | | | | +-------+ +---------+---+---+ +---+---+ | | | +---+---+ + +-------+ +-------+---+---+ | metoprolol tartrate (LOPRESSOR) | Given | 01/05/20 | 25 mg | | | | tablet 25 mg 25 mg, Oral, 2 | | 17 8:24 | | | | | TIMES DAILY, First dose (after | | AM PDT | | | | | last modification) on Sat01/02/17 | | | | | | | at 0900, Hold for SBP <90, | | | | | | | Discharge Readmit | | | | | | + +-------+ +-------+---+---+ +-------+ +-------+---+---+ | Given | 01/04/20 | 25 mg | | | | | 17 11:09 | | | | | | AM PDT | | | | +-------+ +-------+---+---+ | Given | 01/03/20 | 25 mg | | | | | 17 8:21 | | | | | | PM PDT | | | | +-------+ +-------+---+---+ +---+---+ | | | +---+---+ + +-------+ +-------+---+---+ | metoprolol tartrate (LOPRESSOR) | Given | 01/02/20 | 50 mg | | | | tablet 50 mg 50 mg, Oral, 2 | | 17 9:00 | | | | | TIMES DAILY, First dose (after | | AM PDT | | | | | last modification) on 12/31/16 | | | | | | | at 2100, Hold for SBP <90, | | | | | | | Discharge Readmit | | | | | | + +-------+ +-------+---+---+ +-------+ +-------+---+---+ | Given | 01/01/20 | 50 mg | | | | | 17 7:54 | | | | | | PM PDT | | | | +-------+ +-------+---+---+ +---+---+ | | | +---+---+ + +-------+ +-------+---+---+ | midodrine (PROAMATINE) tablet | Given | 01/09/20 | 10 mg | | | | 10 mg 10 mg, Oral, 3 TIMES DAILY | | 17 5:51 | | | | | EARLY, First dose (after last | | AM PDT | | | | | modification) on 12/31/16 at | | | | | | | 1700, Avoid dosing after evening | | | | | | | meal or within 4 hours of | | | | | | | bedtime., Discharge Readmit | | | | | | + +-------+ +-------+---+---+ +-------+ +-------+---+---+ | Given | 01/08/20 | 10 mg | | | | | 17 5:44 | | | | | | PM PDT | | | | +-------+ +-------+---+---+ | Given | 01/08/20 | 10 mg | | | | | 17 1:51 | | | | | | PM PDT | | | | +-------+ +-------+---+---+ +---+---+ | | | +---+---+ + +-------+ +-------+---+---+ | midodrine (PROAMATINE) tablet | Given | 01/18/20 | 10 mg | | | | 10 mg 10 mg, Oral, 3 TIMES DAILY | | 17 1:51 | | | | | EARLY, First dose (after last | | PM PDT | | | | | modification) on Sat01/08/17 at | | | | | | | 1700, Avoid dosing after evening | | | | | | | meal or within 4 hours of | | | | | | | bedtime., Discharge Readmit | | | | | | + +-------+ +-------+---+---+ +-------+ +-------+---+---+ | Given | 01/18/20 | 10 mg | | | | | 17 6:20 | | | | | | AM PDT | | | | +-------+ +-------+---+---+ | Given | 01/17/20 | 10 mg | | | | | 17 5:29 | | | | | | PM PDT | | | | +-------+ +-------+---+---+ +---+---+ | | | +---+---+ + +-------+ +------+---+---+ | midodrine (PROAMATINE) tablet 5 | Given | 01/09/20 | 5 mg | | | | mg 5 mg, Oral, 3 TIMES DAILY | | 17 11:41 | | | | | EARLY, First dose (after last | | AM PDT | | | | | modification) on Sat01/08/17 at | | | | | | | 1200, Avoid dosing after evening | | | | | | | meal or within 4 hours of | | | | | | | bedtime., Discharge Readmit | | | | | | + +-------+ +------+---+---+ +---+---+ | | | +---+---+ + +-------+ + +---+---+ | [id number] | Given | 01/18/20 | 1 | | | | (NEOSPORIN) ointment Topical, 3 | | 17 9:25 | Applicat | | | | TIMES DAILY, First dose on Sat | | AM PDT | ion | | | | 01/16/17 at 0945, To cracks in | | | | | | | his hands, until healed., | | | | | | + +-------+ + +---+---+ +-------+ + +---+---+ | Given | 01/17/20 | 1 | | | | | 17 9:56 | Applicat | | | | | PM PDT | ion | | | +-------+ + +---+---+ | Given | 01/17/20 | 1 | | | | | 17 2:47 | Applicat | | | | | PM PDT | ion | | | +-------+ + +---+---+ +---+---+ | | | +---+---+ + +-------+ +------+---+---+ | oxyCODONE (ROXICODONE) tablet | Given | 01/18/20 | 5 mg | | | | 5-10 mg 5-10 mg, Oral, EVERY 4 | | 17 7:42 | | | | | HOURS PRN, Pain, Starting Mon | | AM PDT | | | | | 12/31/16 at 1551, Discharge | | | | | | | Readmit | | | | | | + +-------+ +------+---+---+ +-------+ +------+---+---+ | Given | 06/27/20 | 5 mg | | | | | 17 12:57 | | | | | | PM PDT | | | | +-------+ +------+---+---+ | Given | 01/15/20 | 5 mg | | | | | 17 5:54 | | | | | | PM PDT | | | | +-------+ +------+---+---+ +---+---+ | | | +---+---+ + +-------+ +------+---+---+ | polyethylene glycol (MIRALAX) | Given | 01/17/20 | 17 g | | | | powder 17 g 17 g, Oral, DAILY | | 17 2:45 | | | | | PRN, Constipation, Starting Mon | | PM PDT | | | | | 12/31/16 at 1551, If docusate and | | | | | | | senna ineffective or not | | | | | | | ordered., Discharge Readmit | | | | | | + +-------+ +------+---+---+ +---+---+ | | | +---+---+ + +-------+ +--------+---+---+ | senna (SENOKOT) tablet 8.6 mg | Given | 01/18/20 | 8.6 mg | | | | 8.6 mg, Oral, 2 TIMES DAILY PRN, | | 17 4:28 | | | | | Constipation, Starting Mon | | AM PDT | | | | | 12/31/16 at 1551, If docusate | | | | | | | ineffective or not ordered., | | | | | | | Discharge Readmit | | | | | | + +-------+ +--------+---+---+ +-------+ +--------+---+---+ | Given | 01/17/20 | 8.6 mg | | | | | 17 8:21 | | | | | | AM PDT | | | | +-------+ +--------+---+---+ | Given | 01/13/20 | 8.6 mg | | | | | 17 8:46 | | | | | | PM PDT | | | | +-------+ +--------+---+---+ +---+---+ | | | +---+---+ + +-------+ +--------+---+---+ | tamsulosin (FLOMAX) capsule 0.4 | Given | 01/10/20 | 0.4 mg | | | | mg 0.4 mg, Oral, DAILY AFTER | | 17 8:25 | | | | | BREAKFAST, First dose on Sandy | | AM PDT | | | | | 6/15/17 at 1045, Do not open | | | | | | | capsule., | | | | | | + +-------+ +--------+---+---+ +-------+ +--------+---+---+ | Given | 01/09/20 | 0.4 mg | | | | | 17 8:08 | | | | | | AM PDT | | | | +-------+ +--------+---+---+ | Given | 01/08/20 | 0.4 mg | | | | | 17 9:15 | | | | | | AM PDT | | | | +-------+ +--------+---+---+ +---+---+ | | | +---+---+ + +-------+ +--------+---+---+ | tamsulosin (FLOMAX) capsule 0.8 | Given | 01/18/20 | 0.8 mg | | | | mg 0.8 mg, Oral, DAILY AFTER | | 17 9:22 | | | | | BREAKFAST, First dose (after last | | AM PDT | | | | | modification) on [facility] 01/10/17 at | | | | | | | 0900, Do not open capsule., | | | | | | + +-------+ +--------+---+---+ +-------+ +--------+---+---+ | Given | 01/17/20 | 0.8 mg | | | | | 17 8:21 | | | | | | AM PDT | | | | +-------+ +--------+---+---+ | Given | 01/16/20 | 0.8 mg | | | | | 17 8:07 | | | | | | AM PDT | | | | +-------+ +--------+---+---+ +---+---+ | | | +---+---+ + +-------+ +-------+---+---+ | traMADol (ULTRAM) tablet 25 mg | Given | 01/18/20 | 25 mg | | | | 25 mg, Oral, 2 TIMES DAILY, | | 17 1:52 | | | | | First dose on Sat01/04/17 at 1400 | | PM PDT | | | | + +-------+ +-------+---+---+ +-------+ +-------+---+---+ | Given | 01/18/20 | 25 mg | | | | | 17 8:08 | | | | | | AM PDT | | | | +-------+ +-------+---+---+ | Given | 01/17/20 | 25 mg | | | | | 17 2:45 | | | | | | PM PDT | | | | +-------+ +-------+---+---+ +---+---+ | | | +---+---+ + +-------+ +------+---+---+ | warfarin (COUMADIN) tablet 1 mg | Given | 01/12/20 | 1 mg | | | | 1 mg, Oral, Once - Warfarin, | | 17 7:58 | | | | | First dose (after last reorder) | | PM PDT | | | | | on Sat01/11/17 at 1800, For 1 | | | | | | | dose, Reproductive Risk: Use | | | | | | | appropriate handling precautions. | | | | | | | Drug education required., | | | | | | + +-------+ +------+---+---+ +---+---+ | | | +---+---+ + +-------+ +------+---+---+ | warfarin (COUMADIN) tablet 1 mg | Given | 01/17/20 | 1 mg | | | | 1 mg, Oral, Once - Warfarin, | | 17 5:29 | | | | | First dose (after last | | PM PDT | | | | | modification) on Sat01/16/17 at | | | | | | | 1800, For 1 dose, Reproductive | | | | | | | Risk: Use appropriate handling | | | | | | | precautions. Drug education | | | | | | | required., | | | | | | + +-------+ +------+---+---+ + +---+ | | | + +---+ | warfarin (COUMADIN) tablet 2 mg | | | 2 mg, Oral, Once - Warfarin, | | | First dose (after last reorder) | | | on Sat01/17/17 at 1800, For 1 | | | dose, Reproductive Risk: Use | | | appropriate handling precautions. | | | Drug education required., | | + +---+ | | | + +---+ + +-------+ +--------+---+---+ | warfarin (COUMADIN) tablet 2.5 | Given | 01/16/20 | 2.5 mg | | | | mg 2.5 mg, Oral, Daily - | | 17 5:58 | | | | | Warfarin, First dose on Mon | | PM PDT | | | | | 01/14/17 at 1800, Reproductive | | | | | | | Risk: Use appropriate handling | | | | | | | precautions. Drug education | | | | | | | required., | | | | | | + +-------+ +--------+---+---+ +-------+ +--------+---+---+ | Given | 01/15/20 | 2.5 mg | | | | | 17 5:54 | | | | | | PM PDT | | | | +-------+ +--------+---+---+ +---+---+ | | | +---+---+ + +-------+ +------+---+---+ | warfarin (COUMADIN) tablet 3 mg | Given | 01/03/20 | 3 mg | | | | 3 mg, Oral, Daily - Warfarin, | | 17 5:29 | | | | | First dose on Sat01/01/17 at | | PM PDT | | | | | 1800, Reproductive Risk: Use | | | | | | | appropriate handling precautions. | | | | | | | Drug education required., | | | | | | + +-------+ +------+---+---+ +-------+ +------+---+---+ | Given | 01/02/20 | 3 mg | | | | | 17 5:49 | | | | | | PM PDT | | | | +-------+ +------+---+---+ +---+---+ | | | +---+---+ + +-------+ +------+---+---+ | warfarin (COUMADIN) tablet 3 mg | Given | 01/11/20 | 3 mg | | | | 3 mg, Oral, Once - Warfarin, | | 17 5:40 | | | | | First dose (after last reorder) | | PM PDT | | | | | on [place] 01/10/17 at 1800, For 1 | | | | | | | dose, Reproductive Risk: Use | | | | | | | appropriate handling precautions. | | | | | | | Drug education required., | | | | | | + +-------+ +------+---+---+ +---+---+ | | | +---+---+ + +-------+ +------+---+---+ | warfarin (COUMADIN) tablet 4 mg | Given | 01/05/20 | 4 mg | | | | 4 mg, Oral, Once - Warfarin, | | 17 5:59 | | | | | First dose (after last reorder) | | PM PDT | | | | | on 01/04/17 at 1800, For 1 | | | | | | | dose, Reproductive Risk: Use | | | | | | | appropriate handling precautions. | | | | | | | Drug education required., | | | | | | + +-------+ +------+---+---+ +---+---+ | | | +---+---+ + +-------+ +------+---+---+ | warfarin (COUMADIN) tablet 4 mg | Given | 01/06/20 | 4 mg | | | | 4 mg, Oral, Once - Warfarin, | | 17 6:36 | | | | | First dose (after last reorder) | | PM PDT | | | | | on 01/05/17 at 1800, For 1 | | | | | | | dose, Reproductive Risk: Use | | | | | | | appropriate handling precautions. | | | | | | | Drug education required., | | | | | | + +-------+ +------+---+---+ +---+---+ | | | +---+---+ + +-------+ +------+---+---+ | warfarin (COUMADIN) tablet 4 mg | Given | 01/07/20 | 4 mg | | | | 4 mg, Oral, Once - Warfarin, | | 17 6:32 | | | | | First dose on [place] 01/06/17 at | | PM PDT | | | | | 1800, For 1 dose, Reproductive | | | | | | | Risk: Use appropriate handling | | | | | | | precautions. Drug education | | | | | | | required., | | | | | | + +-------+ +------+---+---+ +---+---+ | | | +---+---+ + +-------+ +------+---+---+ | warfarin (COUMADIN) tablet 5 mg | Given | 01/04/20 | 5 mg | | | | 5 mg, Oral, Once - Warfarin, | | 17 6:55 | | | | | First dose (after last reorder) | | PM PDT | | | | | on [facility] 01/03/17 at 1800, For 1 | | | | | | | dose, Reproductive Risk: Use | | | | | | | appropriate handling precautions. | | | | | | | Drug education required., | | | | | | + +-------+ +------+---+---+ +---+---+ | | | +---+---+ + +-------+ +------+---+---+ | warfarin (COUMADIN) tablet 5 mg | Given | 01/08/20 | 5 mg | | | | 5 mg, Oral, Once - Warfarin, | | 17 5:44 | | | | | First dose (after last reorder) | | PM PDT | | | | | on Sat01/07/17 at 1800, For 1 | | | | | | | dose, Reproductive Risk: Use | | | | | | | appropriate handling precautions. | | | | | | | Drug education required., | | | | | | + +-------+ +------+---+---+ +---+---+ | | | +---+---+ + +-------+ +------+---+---+ | warfarin (COUMADIN) tablet 5 mg | Given | 01/09/20 | 5 mg | | | | 5 mg, Oral, Once - Warfarin, | | 17 5:55 | | | | | First dose (after last reorder) | | PM PDT | | | | | on Sat01/08/17 at 1800, For 1 | | | | | | | dose, Reproductive Risk: Use | | | | | | | appropriate handling precautions. | | | | | | | Drug education required., | | | | | | + +-------+ +------+---+---+ +---+---+ | | | +---+---+ + +-------+ +------+---+---+ | warfarin (COUMADIN) tablet 5 mg | Given | 01/10/20 | 5 mg | | | | 5 mg, Oral, Once - Warfarin, | | 17 5:40 | | | | | First dose (after last reorder) | | PM PDT | | | | | on Sat01/09/17 at 1800, For 1 | | | | | | | dose, Reproductive Risk: Use | | | | | | | appropriate handling precautions. | | | | | | | Drug education required., | | | | | | + +-------+ +------+---+---+ + +---+ | | | + +---+ | warfarin per pharmacy PHARMACY | | | CONSULT, Starting Sat01/01/17 at | | | 0903, What is the goal INR range | | | for this patient? 2-3 | | + +---+ | | | + +---+ | zolpidem (AMBIEN) tablet 5 mg | | | 5 mg, Oral, NIGHTLY PRN, | | | Insomnia, Starting 01/15/17 at | | | 0940 | | + +---+ | | | + +---+ documented in this encounter
--- OUTSIDE RECORDS SUMMARY | ~2019-11-20 | XMS | Encounter Summary ---
Demographics + + + | Address | [address] | | | [place] [address] | + + + | Home Phone | | + + + | Preferred Language | Unknown | + + + | Marital Status | | + + + | Church Affiliation | Unknown | + + + | Race | Unknown | + + + | Ethnic Group | Unknown | + + + Author + + + | Author | [facility] | | | and [place] | + + + | Organization | [facility] | | | and [place]ard[place] [...] [place] | | | | | [address] | | + + + + + Care Team Providers + +------+ + | Care Food Safety Director Name | Role | Phone | + +------+ + | Carlos Alberto Galeas MD | PCP | | + +------+ + Encounter Details +--------+ + + + + | Date | Type | Department | Care Team | Description | +--------+ + + + + | 12/22/ | Orders Only | [facility] | Michael Alston | Stenosis of carotid | | 2019 | | SURGERY [address] | MD Dante, FACS [address] | artery, unspecified | | | | [place], [place] | [address] [place] | laterality (Primary | | | | [address] | [place] [address] | Dx) | | | | [phone] | [phone] | | | | | | | [...] | | | | | [address] [place], [place] | | | | | | [address] | | | | | | | | +--------+---------+ + + + documented as of this encounter Results Basic Metabolic Panel (12/25/2018 9:02 AM PDT) + + + + + + | Component | Value | Ref Range | Performed | Pathologist | | | | | At | Signature | + + + + + + | Na | 137 | 136 - 145 | [facility] | | | | | mmol/L | [facility] | | | | | | [facility] | | | | | | [facility] - | | | | | | LABORATORY | | + + + + + + | K | 4.0 | 3.4 - 5.1 | [facility] | | | | | mmol/L | [facility] | | | | | | [facility] | | | | | | C[facility] - | | | | | | LABORATORY | | + + + + + + | Cl | 99 | 98 - 107 mmol/L | [facility] | | | | | | [facility] | | | | | [facility] | | | | | | C[facility] - | | | | | | LABORATORY | | + + + + + + | CO2 | 32 (H) | 20 - 31 mmol/L | [facility] | | [...] + + | Glucose | 93 | 60 - 106 mg/dL | [facility] | | | | | | [facility] | | | | | | MEDICAL | | | | | | CENTER - | | | | | | LABORATORY | | + + + + + + | BUN | 19 | 9 - 23 mg/dL | [facility] | | | | | | [facility] | | | | | | [facility] | | | | | | CENTER - | | | | | | LABORATORY | | + + + + + + | Creatinine | 1.21 | 0.70 - 1.30 | [facility] | | | | | mg/dL | [facility] | | | | | | MEDICAL | | | | | | CENTER - | | | | | | LABORATORY | | + + + + + + | eGFR if not | 57 (L)Comment: | >=60 | [facility] | | | | GLOMERULAR FILTRATION | mL/min/1.73m2 | [facility] | | | SPANISH | RATE,ESTIMATED | | MEDICAL | | | | mL/min/[id number] than | | CENTER - | | [...] + + + + | Calcium | 10.0 | 8.7 - 10.4 | [facility] | | | | | mg/dL | [facility] | | | | | | MEDICAL | | | | | | CENTER - | | | | | | LABORATORY | | + + + + + + | BUN/Creatin | 15.7 | | [facility] | | | ine [...] [address] | [place] | [phone] | | [facility] | | [address] | | | - LABORATORY | | | | + + + + + documented in this encounter Visit Diagnoses + + | Diagnosis | + + | Stenosis of carotid artery, unspecified laterality - Primary | + + documented in this encounter"
--- OUTSIDE RECORDS SUMMARY | ~2019-11-20 | XMS | Encounter Summary ---
Demographics + + + | Address | [address] | | | [place] [address] | + + + | Home Phone | | + + + | Preferred Language | Unknown | + + + | Marital Status | | + + + | Bahai Affiliation | Unknown | + + + | Race | Unknown | + + + | Ethnic Group | Unknown | + + + Author + + + | Author | [facility] | | | and [place] | + + + | Organization | [facility] | | [...] [place] | | | | | [address] | | + + + + + Care Team Providers + +------+ + | Care Alarm Operator Name | Role | Phone | + +------+ + | Carlos Alberto Galeas MD | PCP | | + +------+ + Encounter Details +--------+ + + + + | Date | Type | Department | Care Team | Description | +--------+ + + + + | 03/13/ | Imaging | [facility] | Provider, | | | 2018 | Exam | [facility] | MD [address] | | | | | IMAGING [address] | [address] | | | | | [address] [place] | [place] [address] | | | | | [place] [address] | | | | | | [phone] | | | +--------+ + + + [...] | | | | | | [place] | | | | | | [address] | | | | | | | | +--------+---------+ + + + documented as of this encounter Procedures + +--------+ + + + | Procedure Name | Priori | Date/Time | Associated Diagnosis | Comments | | | ty | | | | + +--------+ + + + | CT ANGIOGRAM | Routin | 11/28/2007 | | Results for this | | PULMONARY | e | 10:10 AM | | procedure are in the | | | | PDT | | results section. | + +--------+ + + + documented in this encounter Results CT Angiogram Pulmonary (11/28/2007 10:10 AM PDT) + + | Specimen | + + | | + + + + + | Narrative | Performed At | + + + | External films for comparison only | [facility] | | | | | No results will be in the chart. | | + + + + +---------+ + + | Performing | Address | City/State/Zipcode | Phone Number | | Organization | | | | + +---------+ + + | [facility] | | | | + +---------+ + + documented in this encounter Visit Diagnoses Not on filedocumented in this encounter"
--- OUTSIDE RECORDS SUMMARY | ~2019-11-20 | XMS | Encounter Summary ---
Demographics + + + | Address | [address] | | | [place] [address] | + + + | Home Phone | | + + + | Preferred Language | Unknown | + + + | Marital Status | | + + + | Islam Affiliation | Unknown | + + + | Race | Unknown | + + + | Ethnic Group | Unknown | + + + Author + + + | Author | [facility] | | | and [place] | + + + | Organization | [facility] | | | and [place] | [...] [place] | | | | | [address] | | + + + + + Care Team Providers + +------+ + | Care Director Of Sales Marketing Name | Role | Phone | + [...] Closed | | Radiology | Diagnoses | Peggy Cason, | | | | | | Status post | DNP [address] | | | | | | peripheral | [address] | | | | | | artery | [place] | | | | | | bypass | [place] | | | | | | Procedures | [address] | | | | | | [address] | Phone: | | | | | | Art Bilat w | [phone] | | | | | | JEREMY Single | Fax: | | | | | | Lvl | [phone] | | +--------+--------+ + + + + Encounter Details +--------+ + + + + | Date | Type | Department | Care Team | Description | +--------+ + + + + | 07/27/ | Hospital | [facility] | Peggy Cason, DNP | Status post | | 2020 | Encounter | VASCULAR SURGERY | [address] | peripheral artery | | | | ULTRASOUND [address] | [address] [address] [place] | bypass | | | | [address] | [address] | | | | | [place] | | | | | | [address] | | | | | | [phone] | | | +--------+ + + + [...] [place] | | | | | | [place] | | | | | | [address] | | | | | | | | +--------+---------+ + + + documented as of this encounter Procedures + +--------+ + + + | Procedure Name | Priori | Date/Time | Associated Diagnosis | Comments | | | ty | | | | + +--------+ + + + | VAS LOWER EXTREMITY | Routin | 07/27/2019 | Status post | Results for this | | ARTERIAL BILAT W JEREMY | e | 8:22 AM | peripheral artery | procedure are in the | | SINGLE LEVEL | | PST | bypass | results section. | + +--------+ + + + documented in this encounter Results VAS Lwr Ext Art Bilat w JEREMY Single Lvl (07/27/2019 8:22 AM PST) + + | Specimen | + + | | + + + + + | Impressions | Performed At | + + + | 1. Right JEREMY showed triphasic STANDPIPE TENDER and monophasic DPA waveforms. | [facility] | | The JEREMY was normal. The TBI was mildly diminished. 2. Left JEREMY | | | showed monophasic waveforms in all vessels. The JEREMY and TBI values | | | were severely diminished. Criteria 0.97 to 1.25 No significant | | | PAD 0.75 to 0.96 Mild 0.50 to 0.74 Moderate <0.50 Severe <0.30 | | | Critical (Noninvasive Vascular Diagnosis, Jessica, [employer], | | | 2001, [place]) Signed by: Rosalie Cohen Edward Sign | | | Date/Time: 07/27/2019 4:49 PM | | + + + + + + | Narrative | Performed At | + + + | VASCULAR LOWER EXTREMITY ARTERIAL BILATERAL WITH JEREMY SINGLE LEVEL | [facility] | | CLINICAL INFORMATION: Right Femoral - Popliteal bypass | | | COMPARISON: VAS LOWER EXTREMITY ARTERIES RIGHT (02/03/2018); VAS ANKLE | | | BRACHIAL INDEX RESTING (02/03/2018); VAS LOWER EXTREMITY ARTERIES | | | RIGHT (12/06/2016); PROCEDURE: Dorsalis pedis and posterior | | | tibial arteries used for JEREMY calculation. Ankle-brachial indices, | | | segmental pressures, doppler waveforms and pulse volume waveforms | | | were obtained bilaterally. FINDINGS: RIGHT SEGMENTAL BP: | | | Brachial: Not obtained at patient's request. Ankle (PT): 189 | | | Ankle(DP): Could not obtain. Digit: 78 JEREMY (PT): 1.36 JEREMY (DP): Not | | | calculated TBI: 0.56 Waveforms: Triphasic STANDPIPE TENDER. Monophasic DPA. | | | LEFT SEGMENTAL BP: Brachial: 139 Ankle (PT): 43 Ankle(DP): | | | Could not be obtained. Digit: 42 JEREMY (PT): 0.31 JEREMY (DP): Not | | | calculated. TBI: 0.30 Waveforms: All vessels monophasic. | | + + + + + | Procedure Note | + + | Stan, Zac Results In - 07/27/2019 4:53 PM PST | | VASCULAR LOWER EXTREMITY ARTERIAL BILATERAL WITH JEREMY SINGLE LEVEL | | | | CLINICAL INFORMATION: | | Right Femoral - Popliteal bypass | | | | COMPARISON: | | VAS LOWER EXTREMITY ARTERIES RIGHT (02/03/2018); VAS ANKLE BRACHIAL | | INDEX RESTING (02/03/2018); VAS LOWER EXTREMITY ARTERIES RIGHT | | (12/06/2016); | | | | PROCEDURE: | | Dorsalis pedis and posterior tibial arteries used for JEREMY calculation. | | Ankle-brachial indices, segmental pressures, doppler waveforms and | | pulse volume waveforms were obtained bilaterally. | | | | FINDINGS: | | | | RIGHT SEGMENTAL BP: | | Brachial: Not obtained at patient's request. | | Ankle (PT): 189 | | Ankle(DP): Could not obtain. | | Digit: 78 | | JEREMY (PT): 1.36 | | JEREMY (DP): Not calculated | | TBI: 0.56 | | Waveforms: Triphasic STANDPIPE TENDER. Monophasic DPA. | | | | LEFT SEGMENTAL BP: | | | | Brachial: 139 | | Ankle (PT): 43 | | Ankle(DP): Could not be obtained. | | Digit: 42 | | JEREMY (PT): 0.31 | | JEREMY (DP): Not calculated. | | TBI: 0.30 | | Waveforms: All vessels monophasic. | | | | IMPRESSION: | | 1. Right JREEMY showed triphasic STANDPIPE TENDER and monophasic DPA waveforms. The | | JEREMY was normal. The TBI was mildly diminished. | | 2. Left JEREMY showed monophasic waveforms in all vessels. The JEREMY and | | TBI values were severely diminished. | | | | | | Criteria | | 0.97 to 1.25 No significant PAD | | 0.75 to 0.96 Mild | | 0.50 to 0.74 Moderate | | <0.50 Severe | | <0.30 Critical | | (Noninvasive Vascular Diagnosis, Jessica, [employer], 2002, [place]) | | | | | | | | Signed by: Rosalie Cohen Edward | | Sign Date/Time: 07/27/2019 4:49 PM | + + + +---------+ + + | Performing | Address | City/State/Zipcode | Phone Number | | Organization | | | | + +---------+ + + | [facility] | | | | + +---------+ + + documented in this encounter Visit Diagnoses + + | Diagnosis | + + | Status post peripheral artery bypass Other postprocedural status | + + documented in this encounter"
--- OUTSIDE RECORDS SUMMARY | ~2019-11-20 | XMS | Encounter Summary ---
Demographics + + + | Address | [address] | | | [place] [address] | + + + | Home Phone | | + + + | Preferred Language | Unknown | + + + | Marital Status | | + + + | Mosque Affiliation | Unknown | + + + | Race | Unknown | + + + | Ethnic Group | Unknown | + + + Author + + + | Author | [facility] | | | and Eduardana | + + + | Organization | [facility] | | | and Eduardana [...] [place] | | | | | [address] | | + + + + + Care Team Providers + +------+ + | Care Refuse Collector Supervisor Name | Role | Phone | + +------+ + | Carlos Alberto Galeas MD | PCP | | + +------+ + Encounter Details +--------+ + + + + | Date | Type | Department | Care Team | Description | +--------+ + + + + | 02/03/ | Hospital | [facility] | Carlos Alberto Galeas | Stenosis of carotid | | 2018 | Encounter | [facility] | MD Dylan [address] | artery, unspecified | | | | [address] | [place] | laterality | | | | [place], [place] | [place] [address] | | | | | [address] | [phone] | | | | | [phone] | | | | | | | Charles Ghotra, | | | | | | Technologist [...] | | | | | | [facility] [place] | | | | | | [address] | | | | | | | | +--------+---------+ + + + documented as of this encounter Procedures + +--------+ + + + | Procedure Name | Priori | Date/Time | Associated Diagnosis | Comments | | | ty | | | | + +--------+ + + + | VAS CAROTID DUPLEX | Routin | 02/03/2018 | 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Results for this | | BILATERAL | e | 10:00 AM | carotid artery, | procedure are in the | | | | PDT | unspecified | results section. | | | | | laterality | | + +--------+ + + + documented in this encounter Results VAS Carotid Duplex Bilateral (02/03/2018 10:00 AM PDT) + + | Specimen | + + | | + + + + + | Narrative | Performed At | + + + | VAS CAROTID DUPLEX BILATERAL 02/03/2018 9:00 AM HISTORY: CAROTID | [facility] | | ARTERY STENOSIS. COMPARISON: None. PROTOCOL: Chester scale and | | | Doppler images of the carotid arteries. FINDINGS: Right: There is | | | mild atherosclerosis of the common carotid artery. Extensive | | | atherosclerosis is observed of the proximal ICA. There is mild | | | atherosclerosis of the proximal ECA. Shadowing is observed in the | | | carotid bulb that limits evaluation. Peak systolic velocity (cm/s), | | | end diastolic velocity (cm/s). Mid CCA: 45, 6 Bulb: 162, 20 ECA: | | | 288, 47, elevated velocities likely due to atherosclerosis and | | | stenosis Highest ICA: 245, 9, elevated velocities corresponding to | | | greater than or equal to 70% stenosis but less than near occlusion | | | Vertebral: Retrograde Bulb/mid CCA ratio: 3.6, elevated High ICA/mid | | | CCA ratio: 5.4, elevated Left: There is mild atherosclerosis of | | | the common carotid artery. Mild atherosclerosis is observed of the | | | proximal ICA. There is mild atherosclerosis of the proximal ECA. | | | Shadowing is observed in the carotid bulb that limits evaluation. | | | Peak systolic velocity (cm/s), end diastolic velocity (cm/s). Mid | | | CCA: 53, 7 Bulb: 23, 7 ECA: 285, 0, elevated velocities likely due | | | to atherosclerosis and stenosis Highest ICA: 155, 27, elevated | | | velocities corresponding to 50-69% stenosis Vertebral: to/fro flow | | | Bulb/mid CCA ratio: 1.2, normal High ICA/mid CCA ratio: 2.9, elevated | | | IMPRESSION - Elevated velocities of right ICA corresponding to | | | greater than or equal to 70% stenosis but less than near occlusion. | | | Elevated velocities of left ICA correspond to 50-69% stenosis. | | | Elevated velocities of bilateral ECAs due to atherosclerosis and | | | stenosis. Retrograde flow in right vertebral artery. To/fro | | | flow in left vertebral artery. Dictated and Signed by: Nikko Morejon MD Electronically signed: 02/03/2018 3:44 PM | | + + + + + | Procedure Note | + + | Stan, Rad Results In - 02/03/2018 3:47 PM PDT VAS CAROTID DUPLEX BILATERAL 02/03/2018 | | 9:00 AM HISTORY: CAROTID ARTERY STENOSIS.COMPARISON: None.PROTOCOL: Chester scale and | | Doppler images of the carotid arteries.FINDINGS:Right: There is mild atherosclerosis of | | the common carotid artery. Extensiveatherosclerosis is observed of the proximal ICA. | | There is mild atherosclerosisof the proximal ECA. Shadowing is observed in the carotid | | bulb that limitsevaluation.Peak systolic velocity (cm/s), end diastolic velocity | | (cm/s).Mid CCA: 45, 6Bulb: 162, 20ECA: 288, 47, elevated velocities likely due to | | atherosclerosis and stenosisHighest ICA: 245, 9, elevated velocities corresponding to | | greater than or equalto 70% stenosis but less than near occlusionVertebral: | | RetrogradeBulb/mid CCA ratio: 3.6, elevatedHigh ICA/mid CCA ratio: 5.4, elevatedLeft: | | There is mild atherosclerosis of the common carotid artery. Mildatherosclerosis is | | observed of the proximal ICA. There is mild atherosclerosisof the proximal ECA. | | Shadowing is observed in the carotid bulb that limitsevaluation.Peak systolic velocity | | (cm/s), end diastolic velocity (cm/s).Mid CCA: 53, 7Bulb: 23, 7ECA: 285, 0, elevated | | velocities likely due to atherosclerosis and stenosisHighest ICA: 155, 27, elevated | | velocities corresponding to 50-69% stenosisVertebral: to/fro flowBulb/mid CCA ratio: | | 1.2, normalHigh ICA/mid CCA ratio: 2.9, elevatedIMPRESSION -Elevated velocities of right | | ICA corresponding to greater than or equal to 70%stenosis but less than near | | occlusion.Elevated velocities of left ICA correspond to 50-69% stenosis.Elevated | | velocities of bilateral ECAs due to atherosclerosis and stenosis.Retrograde flow in | | right vertebral artery.To/fro flow in left vertebral artery.Dictated and Signed by: | | Nikko Morejon MD Electronically signed: 02/03/2018 3:44 PM | | | |Left: There is mild atherosclerosis of the common carotid artery. Mild | |atherosclerosis is observed of the proximal ICA. There is mild atherosclerosis | |of the proximal ECA. Shadowing is observed in the carotid bulb that limits | |evaluation. | |Peak systolic velocity (cm/s), end diastolic velocity (cm/s). | |Mid CCA: 53, 7 | |Bulb: 23, 7 | |ECA: 285, 0, elevated velocities likely due to atherosclerosis and stenosis | |Highest ICA: 155, 27, elevated velocities corresponding to 50-69% stenosis | |Vertebral: to/fro flow | |Bulb/mid CCA ratio: 1.2, normal | |High ICA/mid CCA ratio: 2.9, elevated | | | |IMPRESSION - | |Elevated velocities of right ICA corresponding to greater than or equal to 70% | |stenosis but less than near occlusion. | | | |Elevated velocities of left ICA correspond to 50-69% stenosis. | | | |Elevated velocities of bilateral ECAs due to atherosclerosis and stenosis. | | | |Retrograde flow in right vertebral artery. | | | |To/fro flow in left vertebral artery. | | | |Dictated and Signed by: Nikko Morejon MD | | Electronically signed: 02/03/2018 3:44 PM | + + + +---------+ + + | Performing | Address | [facility] Phone Number | | Organization | | | | + +---------+ + + | [facility] | | | | + +---------+ + + documented in this encounter Visit Diagnoses + + | Diagnosis | + + | Stenosis of carotid artery, unspecified laterality | + + documented in this encounter"
--- OUTSIDE RECORDS SUMMARY | ~2019-11-20 | XMS | Encounter Summary ---
Demographics + + + | Address | [address] | | | [place] [address] | + + + | Home Phone | | + + + | Preferred Language | Unknown | + + + | Marital Status | | + + + | Confucianist Affiliation | Unknown | + + + | Race | Unknown | + + + | Ethnic Group | Unknown | + + + Author + + + | Author | [facility] | | | and Eduard[place] | + + + | Organization | [facility] | | | and [place] | [...] [place] | | | | | [address] | | + + + + + Care Team Providers + +------+ + | Care Rn Hyperbaric Name | Role | Phone | + +------+ + | Carlos Alberto Galeas MD | PCP | | + +------+ + Reason for Visit +---------+ + | Reason | Comments | +---------+ + | Consult | | +---------+ + Encounter Details +--------+ + + + + | Date | Type | Department | Care Team | Description | +--------+ + + + + | 06/29/ | Telephone | [facility] | Peggy Cason DNP | Consult | | 2019 | | VASCULAR SURGERY | [address] | | | | | [address] | [place] [address] [place], [place] | | | | | [place], [place] | [address] | | | | | [address] | | | | | | [phone] | | | +--------+ + + + [...] [place] | | | | | | [address] | | | | | | | | +--------+---------+ + + + documented as of this encounter Visit Diagnoses + + | Diagnosis | + + | PAD (peripheral artery disease) (HCC) - Primary Unspecified disorders of arteries and | | arterioles | + + documented in this encounter"
--- OUTSIDE RECORDS SUMMARY | ~2019-11-20 | XMS | Encounter Summary ---
Demographics + + + | Address | [address] | | | [place] [address] | + + + | Home Phone | | + + + | Preferred Language | Unknown | + + + | Marital Status | | + + + | Adventism Affiliation | Unknown | + + + | Race | Unknown | + + + | Ethnic Group | Unknown | + + + Author + + + | Author | [facility] | | | and Eduardana | + + + | Organization | [facility] | | | and Eduard[place] | + + + | Address | Unknown | + + + | Phone | Unavailable | + + + Support + + + + + | Name | Relationship | Address | Phone | + + + + + | Rivka Thomason | [place] | | | | | | [place] | | | | | [address] | | + + + + + Care Team Providers + +------+ + | Care Sample Coordinator Name | Role | Phone | + +------+ + | Carlos Alberto Galeas MD | PCP | | + +------+ + Encounter Details +--------+ + + + + | Date | Type | Department | Care Team | Description | +--------+ + + + + | 03/03/ | Imaging | [facility] | Provider, | | | 2018 | Exam | [facility] | MD [address] | | | | | IMAGING [address] | [address] | | | | | [address] | [place] [address] | | | | | [place] [address] | | | | | | [phone] | | | +--------+ + + + [...] | | | | | [address] [place], [place] | | | | | | [address] | | | | | | | | +--------+---------+ + + + documented as of this encounter Procedures + +--------+ + + + | Procedure Name | Priori | Date/Time | Associated Diagnosis | Comments | | | ty | | | | + +--------+ + + + | XR CHEST 1 VIEW | Routin | 01/27/2017 | | Results for this | | | e | 4:10 AM | | procedure are in the | | | | PDT | | results section. | + +--------+ + + + documented in this encounter Results XR Chest 1 Vw (01/27/2017 4:10 AM PDT) + + | Specimen | [...]
--- OUTSIDE RECORDS SUMMARY | ~2019-11-20 | XMS | Encounter Summary ---
Demographics + + + | Address | [address] | | | [place] [address] | + + + | Home Phone | | + + + | Preferred Language | Unknown | + + + | Marital Status | | + + + | Orthodox Affiliation | Unknown | + + + | Race | Unknown | + + + | Ethnic Group | Unknown | + + + Author + + + | Author | [facility] | | | and Eduardana | + + + | Organization | [facility] | | | and Eduardana [...] [place] | | | | | [phone] | | + + + + + Care Team Providers + +------+ + | Care Field Handyman Name | Role | Phone | + [...] | | | | | | | Femur | | | | | | | Fractures r | | | | | | | midshaft | | | | | | | femur | | | | | | | fracture L | | | | | | | femur fx | | | | | | | Procedures | | | | | | | ORIF IM | | | | | | | [facility] | | | | | | | FEMORAL | | | | | | | ANTEGRADE | | | | | | | ORIF IM | | | | | | | [facility] | | | | | | | FEMORAL | | | | | | | TROCHANTERIC | | | | | | | NAIL | | | +--------+--------+ + + + + Encounter Details +--------+---------+ + + + | Date | Type | Department | Care Team | Description | +--------+---------+ + + + | 12/19/ | Surgery | [facility] | Lambert Mancuso MD | [facility]IF [facility] | | 2016 | | MED CTR OR [facility] | [address] | FEMORAL ANTEGRADE | | | | [address] | [place] | | | | | [place] | [id number] | | | | | [address] | [phone] | | | | | [phone] | | | +--------+---------+ + + + [...] + + + | Blood Pressure | 94/53 | 12/31/2016 2:05 PM | | | | | PDT | | + + + + + | Pulse | 66 | 12/31/2016 2:05 PM | | | | | PDT | | + + + + + | Temperature | 36.8 C (98.2 F) | 12/31/2016 8:00 AM | | | | | PDT | | + + + + + | Respiratory Rate | 16 | 12/31/2016 2:05 PM | | | | | PDT | | + + + + + | Oxygen Saturation | 96% | 12/31/2016 11:45 AM | | | | | PDT | | + + + + + | Inhaled Oxygen | - | - | | | Concentration | | | | + + + + + | Weight | 81.9 kg (180 lb 8.9 | 12/31/2016 5:32 AM | | | | oz) | PDT | | + + + + + | Height | 175.3 cm (5' 9") | 12/18/2016 10:05 PM | | | | | PDT | | + + + + + | Body Mass Index | 26.66 | 12/18/2016 10:05 PM | | | | | PDT | | + + + + + documented in this encounter Discharge Summaries Radha Hoyt MD - 12/31/2016 3:38 PM PDT DISCHARGE SUMMARY Patient Name: Dora Thomason : 1930 Date of Admission: 12/18/2016 Date of Discharge: 12/31/2016 Admitting Physician: Gamal Serrano MD Discharging Physician: Radha Hoyt MD Primary Care Provider: Carlos Alberto Galeas MD Discharge Diagnoses: Principal Problem: Femur fracture, right Active Problems: Atrial flutter Femur fracture, left Anticoagulant long-term use Resolved Problems: * No resolved hospital problems. * Patient Active Problem List Diagnosis Atrial flutter Femur fracture, left Femur fracture, right Anticoagulant long-term use Consultants: Dr Mancuso (ortho) Dr Brush (PT) Procedures: B/L ORIF Reason for Admission/Hospital Course: Please refer to the H&P for full details. In short, this is a 86 y.o. male with a history of afib on coumadin who presented with mechanical fall and bilateral femur fracture and hemo rrhagic shock treated with IV fluids and PRBC transfusion. He underwent bilateral ORIF with Dr. Mancuso. Due to hypertension and hemorrhagic anemia patient received IV fluids and numerous units of PRBC which led to acute diastolic heart failure and hypoxia necessitating aggressive IV diu resis with improvement in his respiratory status and oxygenation. He also suffered an episode of delirium while in the ICU. As a result he was found to be severely deconditioned and when medically stabilized was tra nsferred to inpatient rehab. Today his hemoglobin has been stable he has been breathing unlabored on room air and his at rial flutter has been well controlled with amiodarone and the addition of metoprolol. When he's deconditioning improves and his fall risk is minimized he should return to his [facility] when recommended by his primary care physician. Physical Exam: Gen Jerri - pleasant white male, alert, cooperative and no distress Head - Normocephalic, without obvious abnormality, atraumatic Eyes - PERRL, conjunctiva/corneas clear, EOM's intact both eyes ENT - mucous membranes moist Neck - supple Lungs - clear to auscultation bilaterally, breathing unlabored Heart - irregularly irregular rhythm with normal rate Abdomen - soft, non-tender, without masses or organomegaly Extremities -no peripheral edema, no clubbing or cyanosis Skin - no rashes Neurologic - Alert and oriented x 3. CN II-XII intact. Code Status: No Code. Disposition: IPR Discharge Condition: good Discharge Readmit Medications Start Ordered Status Ordering Provider Signed and Held Signed and Held acetaminophen (TYLENOL) tablet 650 mg EVERY 4 HOURS PRN LAW BRUSH Signed and Held Signed and Held albuterol-ipratropium (DUONEB) 2.5-0.5 mg/3 mL nebulizer solution 3 mL RT EVERY 4 HOURS PRN LAW BRUSH Signed and Held Signed and Held alteplase (CATHFLO ACTIVASE) injection 2 mg PRN LAW BRUSH Signed and Held Signed and Held amiodarone (PACERONE) tablet 200 mg DAILY LAW BRUSH Signed and Held Signed and Held atorvaSTATin (LIPITOR) tablet 20 mg NIGHTLY LAW BRUSH Signed and Held Signed and Held docusate sodium (COLACE) capsule 100 mg 2 TIMES DAILY [place] N LAW BRUSH Signed and Held Signed and Held heparin 5,000 units/mL injection 5,000 Units 2 times per day LAW BRUSH Signed and Held Signed and Held metoprolol tartrate (LOPRESSOR) tablet 50 mg 2 TIMES ANNETTE LY LAW BRUSH Signed and Held Signed and Held midodrine (PROAMATINE) tablet 10 mg 3 TIMES DAILY EARLY LAW BRUSH Signed and Held Signed and Held oxyCODONE (ROXICODONE) tablet 5-10 mg EVERY 4 HOURS PRN LAW BRUSH Signed and Held Signed and Held polyethylene glycol (MIRALAX) powder 17 g DAILY PRN LAW BRUSH Signed and Held Signed and Held senna (SENOKOT) tablet 8.6 mg 2 TIMES DAILY PRN LAW BRUSH Signed and Held Signed and Held simethicone (MYLICON) chewable tablet 80 mg 4 TIMES ROSARIO Y PRN LAW BRUSH Signed and Held Signed and Held ondansetron (ZOFRAN ODT) disintegrating tablet 4 mg EVER Y 6 HOURS PRN LAW BRUSH Signed and Held Signed and Held calcium carbonate (TUMS) chewable tablet 1,000 mg EVERY 8 HOURS PRLAW NIEVES Signed and Held Signed and Held aluminum & magnesium hydroxide-simethicone (MAALOX PLUS R EGULAR STRENGTH) 200-200-20 mg/5 mL suspension 30 mL EVERY 4 HOURS PRN LAW BRUSH Signed and Held Signed and Held bisacodyl (DULCOLAX) suppository 10 mg DAILY PRN LAW BRUSH Studies With Pending Results: None Greater than 30 minutes were spent on discharge and coordination of post-hospital care. Electronically signed by: Radha Hoyt MD, 12/31/2016 15:39 [facility] documented in this enc ounter Medications at Time of Discharge + + [...] + + + +---------+ + + | amLODIPine | Take 5 mg by mouth | | 0 | | | | (NORVASC) 5 mg | daily (after | | | | 7 | | tablet | dinner). | | | | | + + + +---------+ + + | ascorbic acid | Take 500 mg by mouth | | 0 | | | | (VITAMIN C) 500 mg | Daily. | | | | 9 | | tablet | | | | | | + + + +---------+ + + | atenolol | Take 25 mg by mouth | | 0 | | | | (TENORMIN) 25 mg | Daily. Takes 50 mg | | | | 7 | | tablet | if HR is 100 or | | | | | | | higher otherwise | | | | | | | takes 25 mg oral | | | | | | | daily | | | | | + + [...] | | | (COUMADIN) 3 MG | daily (after | | | | 7 | | tablet | dinner). | | | | | + + + +---------+ + + documented as of this encounter Progress Notes Tramaine Garrido RN - 12/30/2016 4:18 PM PDTAttempted to pull picc line. Met resistence wh en pulling. Stopped and redressed picc line site with tegaderm. Call out to Dr Urbina. Izabella ctronically signed by Tramaine Garrido RN at 12/30/2016 4:19 PM Radha Hawthorne MD - 12/20 11:40 AM PDT [facility]OSPITAL[facility] PROGRESS NOTE Patient: Dora Thomason : 1930: Age: 86 y.o. MedRec: [id number] PCP: Carlos Alberto Galeas MD Admission date: 12/18/2016 Hospital day # : 12 Physician author: Radha Hoyt MD Today: 12/30/2016 SUBJECTIVE: Patient laying in bed comfortably denies any chest pain or shortness of breath or palpitat ions. Complains of bilateral lower extremity pain at fracture site. VITALS: Temp: 36.4 C (97.5 F), Pulse: 98, Resp: 20, BP: 123/72, SpO2 93 % on room air at flow r ate 1L/min Temp Min: 36.1 C (97 F) Max: 37.1 C (98.8 F) Weight: 78 kg (172 lb) I/O last 3 completed shifts: In: 2873 [P.O.:2200; I.V.:473; Other:200] Out: 1850 [Urine:1850] I/O this shift: In: 495 [P.O.:495] Out: - PHYSICAL EXAM: Gen Jerri - pleasant white male, alert, cooperative and no distress Head - Normocephalic, without obvious abnormality, atraumatic Eyes - PERRL, conjunctiva/corneas clear, EOM's intact both eyes ENT - mucous membranes moist Neck - supple Lungs - clear to auscultation bilaterally, breathing unlabored Heart - irregularly irregular rhythm with normal rate Abdomen - soft, non-tender, without masses or organomegaly Extremities -no peripheral edema, no clubbing or cyanosis Skin - no rashes Neurologic - Alert and oriented x 3. CN II-XII intact. DIAGNOSTIC STUDIES: Available data and images were reviewed personally. Significant results and findings are a ddressed here or in the Assessment and Plan. Recent Results (from the past 24 hour(s)) Basic Metabolic Panel Result Value Ref Range NA 136 136 - 149 mmol/L K 3.7 3.5 - 5.1 mmol/L CL 100 98 - 109 mmol/L CO2 29 24 - 31 mmol/L ANION GAP 7 3 - 16 mmol/L GLUCOSE 102 70 - 109 mg/dL BUN 22 (H) 7 - 18 mg/dL Creatinine, Serum/Plasma 1.14 0.60 - 1.30 mg/dL eGFR if not >60 >=60 mL/min/1.73m2 CALCIUM 8.5 8.3 - 10.5 mg/dL BUN/CREA 19.3 Protime INR Result Value Ref Range PROTIME 15.1 (H) 11.3 - 13.9 seconds INR 1.16 (H) 0.90 - 1.10 CBC with Differential Result Value Ref Range WBC 8.8 4.0 - 11.0 K/uL RBC 3.38 (L) 4.30 - 5.70 M/uL Hgb 10.0 (L) 13.5 - 18.0 g/dL Hct 30.4 (L) 40.0 - 51.0 % MCV 89.8 83.0 - 101.0 fL MCH 29.5 28.0 - 35.0 pg MCHC 32.8 32.0 - 36.0 g/dL RDW-CV 16.3 (H) <15.0 % Platelet Count 367 140 - 440 K/uL MPV 7.9 fL % Neutrophils 76.1 45.0 - 82.0 % % Lymphocytes 6.9 (L) 20.0 - 45.0 % % Monocytes 11.5 4.0 - 12.0 % % Eosinophils 4.8 0.0 - 5.0 % % Basophils 0.7 0.0 - 1.0 % Absolute Neutrophils 6.70 1.80 - 8.50 K/uL Absolute Lymphocytes 0.60 0.60 - 3.20 K/uL Absolute Monocytes 1.00 0.00 - 1.00 K/uL Absolute Eosinophils 0.40 0.00 - 0.40 K/uL Absolute Basophils 0.10 0.00 - 0.10 K/uL No results found. Current Facility-Administered Medications: acetaminophen 650 mg Oral Q4H PRN albuterol-ipratropium 3 mL Nebulization RT Q4H PRN alteplase 2 mg Intercatheter PRN amiodarone 200 mg Oral Daily atorvaSTATin 20 mg Oral Nightly docusate sodium 100 mg Oral BID PRN heparin 5,000 Units Subcutaneous 2 times per day metoprolol tartrate 50 mg Oral BID midodrine 10 mg Oral TID Early norepinephrine 1-30 mcg/min Intravenous Titrated oxyCODONE 5-10 mg Oral Q4H PRN polyethylene glycol 17 g Oral Daily PRN senna 8.6 mg Oral BID PRN simethicone 80 mg Oral 4x Daily PRN CURRENT MEDICATIONS: Current Facility-Administered Medications Medication Dose Route Frequency Provider Last Rate Last Dose acetaminophen (TYLENOL) tablet 650 mg 650 mg Oral Q4H PRN Gamal Serrano MD 650 mg at 12/24/16 0750 albuterol-ipratropium (DUONEB) 2.5-0.5 mg/3 mL nebulizer solution 3 mL 3 mL Nebulizati on RT Q4H PRN Gamal Serrano MD alteplase (CATHFLO ACTIVASE) injection 2 mg 2 mg Intercatheter PRN Angel Hendrix MD 2 mg at 12/30/16 1013 amiodarone (PACERONE) tablet 200 mg 200 mg Oral Daily Gamal Serrano MD 200 mg at 0 12/30/16 0937 atorvaSTATin (LIPITOR) tablet 20 mg 20 mg Oral Nightly Gamal Serrano MD 20 mg at 0 12/29/162053 docusate sodium (COLACE) capsule 100 mg 100 mg Oral BID PRN Gamal Serrano MD 100 m g at 12/26/16 0908 heparin 5,000 units/mL injection 5,000 Units 5,000 Units Subcutaneous 2 times per day Rdaha Hoyt MD 5,000 Units at 12/30/16 0936 metoprolol tartrate (LOPRESSOR) tablet 50 mg 50 mg Oral BID Radha Hoyt MD 50 mg at 12/30/16 0937 midodrine (PROAMATINE) tablet 10 mg 10 mg Oral TID Early Radha Hoyt MD 10 mg at 12/30/16 0630 norepinephrine in NS (LEVOPHED) 16 mcg/mL infusion 1-30 mcg/min Intravenous Titrated V debi Hendrix MD Stopped at 12/24/16 1111 oxyCODONE (ROXICODONE) tablet 5-10 mg 5-10 mg Oral Q4H PRN Gamal Serrano MD 5 mg a t 12/29/16 1435 polyethylene glycol (MIRALAX) powder 17 g 17 g Oral Daily PRN Gamal Serrano MD 17 g at 12/24/16 0750 senna (SENOKOT) tablet 8.6 mg 8.6 mg Oral BID PRN Gamal Serrano MD 8.6 mg at 12/25 simethicone (MYLICON) chewable tablet 80 mg 80 mg Oral 4x Daily PRN Radha Hoyt MD 80 mg at 12/27/162100 ASSESSMENT and PLAN: Active Hospital Problems Diagnosis Anticoagulant long-term use Atrial flutter Femur fracture, left *Femur fracture, right Resolved Hospital Problems Diagnosis Date Noted Date Resolved No resolved problems to display. #1 Status post hemorrhagic shock: -Secondary to bilateral femur fracture in the setting of elevated INR, s/p repair by Dr. Refugio hernandez -Status post volume resuscitation with IV fluids and PRBC -Blood pressure stable now -Hemoglobin stable, continue monitor -coagulopathy reversed as indicated below #2 Physical deconditioning: -Undergoing PT and OT -Inpatient rehabilitation referral placed #3 Volume overload with possible underlying diastolic heart failure: -Euvolemic now -Intermittent IV Lasix to achieve euvolemic state -Received IV Lasix yesterday, hold Lasix today -Strict I's and O's -Echocardiogram revealing diastolic dysfunction (thick LV, dilated LA) #4 Acute hypoxemic respiratory failure: -Improved -With evidence of volume overload and bilateral distribution on chest x-ray and negative Pr o calcitonin This appears to be likely to underlying acute diastolic congestive heart failure rather bossman n pneumonia - IV Lasix currently on hold #5 A. fib RVR: - Heart rate is controlled now - Continue amiodarone, continue to hold warfarin -Metoprolol 25 mg by mouth twice a day added then increased to 50 mg twice a day - Esmolol drip discontinued -Midodrine 10 mg 3 times a day added for blood pressure support -IV Cardizem given initially and was not tolerated - Continue monitor on telemetry #6 Elevated INR: -Resolved -Secondary to Coumadin administration -Continue to Hold Coumadin -s/ p 2 units of FFP -s/p IV vitamin K #7 Delirium with : -Improved -Likely secondary to acute illness and prolonged ICU stay -Frequent reorientation *Anticipate discharge to inpatient rehab versus long-term facility tomorrow. DVT Prophylaxis SCD's while in bed Code Status DNR/DNI. Total time of approximately 35 minutes was spent with the patient and/or patient's family, and/or on the patient's floor/unit, of which more than 50% was spent counseling and/or coord ination the patient's care as outlined above. Radha Hoyt 12/30/2016 11:41 [facility] Radha Hawthorne MD - 12/29/2016 4:14 PM PDTFormatting of this note might be di fferent from the original. [facility] HOSPITALIST PROGRESS NOTE Patient: Dora Thomason : 1930: Age: 86 y.o. MedRec: [id number] PCP: Carlos Alberto Galeas MD Admission date: 12/18/2016 Hospital day # : 11 Physician author: Radha Hoyt MD Today: 12/29/2016 SUBJECTIVE: Patient sitting in bed comfortably , patient denying any chest pain shortness of breath fe sarahy chills. It appears that he was delirious overnight as reported by nursing staff. VITALS: Temp: 37 C (98.6 F), Pulse: 99, Resp: 20, BP: 100/56, SpO2 93 % on nasal cannula at pablito w rate 1L/min Temp Min: 36.7 C (98.1 F) Max: 37.6 C (99.7 F) Weight: 78 kg (172 lb) I/O last 3 completed shifts: In: 2018 [P.O.:1590; I.V.:428] Out: 3775 [Urine:3775] I/O this shift: In: 134 [I.V.:134] Out: 150 [Urine:150] PHYSICAL EXAM: Gen Jerri - pleasant white male, alert, cooperative and no distress Head - Normocephalic, without obvious abnormality, atraumatic Eyes - PERRL, conjunctiva/corneas clear, EOM's intact both eyes ENT - mucous membranes moist Neck - supple Lungs - clear to auscultation bilaterally, breathing unlabored Heart - irregularly irregular rhythm with rapid rate Abdomen - soft, non-tender, without masses or organomegaly Extremities - trace peripheral edema, no clubbing or cyanosis Skin - no rashes Neurologic - Alert and oriented x 3. CN II-XII intact. DIAGNOSTIC STUDIES: Available data and images were reviewed personally. Significant results and findings are a ddressed here or in the Assessment and Plan. Recent Results (from the past 24 hour(s)) Protime INR Result Value Ref Range PROTIME 15.1 (H) 11.3 - 13.9 seconds INR 1.16 (H) 0.90 - 1.10 CBC with Differential Result Value Ref Range WBC 9.1 4.0 - 11.0 K/uL RBC 3.35 (L) 4.30 - 5.70 M/uL Hgb 10.1 (L) 13.5 - 18.0 g/dL Hct 29.8 (L) 40.0 - 51.0 % MCV 89.0 83.0 - 101.0 fL MCH 30.0 28.0 - 35.0 pg MCHC 33.7 32.0 - 36.0 g/dL RDW-CV 15.9 (H) <15.0 % Platelet Count 376 140 - 440 K/uL MPV 8.1 fL % Neutrophils 77.9 45.0 - 82.0 % % Lymphocytes 5.7 (L) 20.0 - 45.0 % % Monocytes 11.9 4.0 - 12.0 % % Eosinophils 3.6 0.0 - 5.0 % % Basophils 0.9 0.0 - 1.0 % Absolute Neutrophils 7.10 1.80 - 8.50 K/uL Absolute Lymphocytes 0.50 (L) 0.60 - 3.20 K/uL Absolute Monocytes 1.10 (H) 0.00 - 1.00 K/uL Absolute Eosinophils 0.30 0.00 - 0.40 K/uL Absolute Basophils 0.10 0.00 - 0.10 K/uL Comprehensive Metabolic Panel Result Value Ref Range NA 137 136 - 149 mmol/L K 3.4 (L) 3.5 - 5.1 mmol/L CL 97 (L) 98 - 109 mmol/L CO2 31 24 - 31 mmol/L ANION GAP 9 3 - 16 mmol/L GLUCOSE 97 70 - 109 mg/dL BUN 21 (H) 7 - 18 mg/dL Creatinine, Serum/Plasma 1.23 0.60 - 1.30 mg/dL eGFR if not 56 (L) >=60 mL/min/1.73m2 CALCIUM 8.6 8.3 - 10.5 mg/dL ALBUMIN 2.2 (L) 3.2 - 5.0 g/dL BILIRUBIN TOTAL 1.2 0.1 - 1.5 mg/dL Total protein 4.9 (L) 6.0 - 7.8 g/dL AST 49 (H) 10 - 42 U/L ALT 59 (H) 6 - 45 U/L ALK PHOS 114 (H) 40 - 110 U/L GLOBULIN 2.7 2.1 - 3.8 g/dL Albumin/Globulin ratio 0.8 0.8 - 2.0 BUN/CREA 17.1 Magnesium Result Value Ref Range MG 1.5 (L) 1.8 - 2.5 mg/dL No results found. Current Facility-Administered Medications: acetaminophen 650 mg Oral Q4H PRN albuterol-ipratropium 3 mL Nebulization RT Q4H PRN alteplase 2 mg Intercatheter PRN amiodarone 200 mg Oral Daily atorvaSTATin 20 mg Oral Nightly docusate sodium 100 mg Oral BID PRN esmolol drip in saline 25-200 mcg/kg/min Intravenous Titrated heparin 5,000 Units Subcutaneous 2 times per day lactated ringers Intravenous Continuous metoprolol tartrate 50 mg Oral BID midodrine 5 mg Oral TID Early norepinephrine 1-30 mcg/min Intravenous Titrated oxyCODONE 5-10 mg Oral Q4H PRN polyethylene glycol 17 g Oral Daily PRN senna 8.6 mg Oral BID PRN simethicone 80 mg Oral 4x Daily PRN CURRENT MEDICATIONS: Current Facility-Administered Medications Medication Dose Route Frequency Provider Last Rate Last Dose acetaminophen (TYLENOL) tablet 650 mg 650 mg Oral Q4H PRN Gamal Serrano MD 650 mg at 12/24/16 0750 albuterol-ipratropium (DUONEB) 2.5-0.5 mg/3 mL nebulizer solution 3 mL 3 mL Nebulizati on RT Q4H PRN Gamal Serrano MD alteplase (CATHFLO ACTIVASE) injection 2 mg 2 mg Intercatheter PRN Angel Hendrix MD 2 mg at 12/25/16 1303 amiodarone (PACERONE) tablet 200 mg 200 mg Oral Daily Gamal Serrano MD 200 mg at 0 12/29/16 0855 atorvaSTATin (LIPITOR) tablet 20 mg 20 mg Oral Nightly Gamal Serrano MD 20 mg at 0 12/28/16 2034 docusate sodium (COLACE) capsule 100 mg 100 mg Oral BID PRN Gamal Serrano MD 100 m g at 12/26/16 0908 esmolol drip in saline (BREVIBLOC) 10 mg/mL infusion 25-200 mcg/kg/min Intravenous Tit rated Radha Hoyt MD Stopped at 12/29/16 1041 heparin 5,000 units/mL injection 5,000 Units 5,000 Units Subcutaneous 2 times per day Radha Hoyt MD 5,000 Units at 12/29/16 0855 lactated ringers (LR) infusion Intravenous Continuous Valente Munoz MD metoprolol tartrate (LOPRESSOR) tablet 50 mg 50 mg Oral BID Radha Hoyt MD midodrine (PROAMATINE) tablet 5 mg 5 mg Oral TID Early Radha Hoyt MD 5 mg at 05/07 1230 norepinephrine in NS (LEVOPHED) 16 mcg/mL infusion 1-30 mcg/min Intravenous Titrated V debi Hendrix MD Stopped at 12/24/16 1111 oxyCODONE (ROXICODONE) tablet 5-10 mg 5-10 mg Oral Q4H PRN Gamal Serrano MD 5 mg a t 12/29/16 1435 polyethylene glycol (MIRALAX) powder 17 g 17 g Oral Daily PRN Gamal Serrano MD 17 g at 12/24/16 0750 senna (SENOKOT) tablet 8.6 mg 8.6 mg Oral BID PRN Gamal Serrano MD 8.6 mg at 12/25 simethicone (MYLICON) chewable tablet 80 mg 80 mg Oral 4x Daily PRN Radha Hoyt MD 80 mg at 12/27/162100 ASSESSMENT and PLAN: Active Hospital Problems Diagnosis Anticoagulant long-term use Atrial flutter Femur fracture, left *Femur fracture, right Resolved Hospital Problems Diagnosis Date Noted Date Resolved No resolved problems to display. #1 Status post hemorrhagic shock: -Secondary to bilateral femur fracture in the setting of elevated INR, s/p repair by Dr. Refugio hernandez -Status post volume resuscitation with IV fluids and PRBC -Blood pressure stable now -Hemoglobin stable, continue monitor -Reverse Coumadin induced coagulopathy as indicated below #2 Physical deconditioning: -Undergoing PT and OT -Inpatient rehabilitation referral placed #3 Volume overload with possible underlying diastolic heart failure: -Intermittent IV Lasix to achieve euvolemic state -Received IV Lasix yesterday, hold Lasix today -Strict I's and O's -Echocardiogram revealing diastolic dysfunction (thick LV, dilated LA) #4 Acute hypoxemic respiratory failure: -Improved -With evidence of volume overload and bilateral distribution on chest x-ray and negative Pr o calcitonin This appears to be likely to underlying acute diastolic congestive heart failure rather bossman n pneumonia - IV Lasix currently on hold #5 A. fib RVR: - Improved - Continue amiodarone, continue to hold warfarin -Metoprolol 25 mg by mouth twice a day added then increase to 50 mg twice a day - Esmolol drip has been on hold today with heart rates 90-110 -Midodrine 10 mg 3 times a day added for blood pressure support -IV Cardizem given and was not tolerated - Continue monitor on telemetry #6 Elevated INR: -Resolved -Secondary to Coumadin administration -Continue to Hold Coumadin -s/ p 2 units of FFP -s/p IV vitamin K #7 Delirium with sundowning: -Likely secondary to acute illness and prolonged ICU stay -Frequent reorientation *Transfer to medical floor with telemetry. DVT Prophylaxis SCD's while in bed Code Status DNR/DNI. Total time of approximately 35 minutes was spent with the patient and/or patient's family, and/or on the patient's floor/unit, of which more than 50% was spent counseling and/or coord ination the patient's care as outlined above. Radha Hoyt 12/29/2016 16:14 [facility] Valeria Bush RN - 12/28/2016 6:20 PM PDTL1: S/P Bilateral Femur FX, OSMAN F~ground level fall. A&Ox3. Has not c/o pain through the night although he has been awake mo st all of it.AFIB HR from 1 teens 140s with activity. BP low, changed to esmolol at 50 mcg h r 90's BP dropped significantly so turned off. 2L of O2. Skin tears/dressings to whole body , dressings to wounds/incisions. PICC to RUE very positional, at times wont draw at all. Fo tano. VSS. IV ABX. Radha Farmer MD - 12/28/2016 3:06 PM PDTFormatting of this note might be different from t pepe original. [facility] HOSPITALIST PROGRESS NOTE Patient: Dora Thomason : 1930: Age: 86 y.o. MedRec: [id number] PCP: Carlos Alberto Galeas MD Admission date: 12/18/2016 Hospital day # : 10 Physician author: Radha Hoyt MD Today: 12/28/2016 SUBJECTIVE: Patient sitting in bed comfortably , continues to feel better, continues to complain of pa in in bilateral lower extremities when working with physical therapy. Denies any shortness of breath chest pain or palpitations.. VITALS: Temp: 37.3 C (99.1 F), Pulse: 126, Resp: 26, BP: 109/67, SpO2 95 % on room air at flow rate 1L/min Temp Min: 36.8 C (98.2 F) Max: 37.4 C (99.3 F) Weight: 78 kg (172 lb) I/O last 3 completed shifts: In: 2479 [P.O.:2390; I.V.:89] Out: 3375 [Urine:3375] I/O this shift: In: 240 [P.O.:240] Out: 1825 [Urine:1825] PHYSICAL EXAM: Gen Jerri - pleasant white male, alert, cooperative and no distress Head - Normocephalic, without obvious abnormality, atraumatic Eyes - PERRL, conjunctiva/corneas clear, EOM's intact both eyes ENT - mucous membranes moist Neck - supple Lungs - expiratory wheezes and bibasilar rales R<L Heart - irregularly irregular rhythm with rapid rate Abdomen - soft, non-tender, without masses or organomegaly Extremities - +1 peripheral edema, no clubbing or cyanosis Skin - no rashes Neurologic - Alert and oriented x 3. CN II-XII intact. DIAGNOSTIC STUDIES: Available data and images were reviewed personally. Significant results and findings are a ddressed here or in the Assessment and Plan. Recent Results (from the past 24 hour(s)) Protime INR Result Value Ref Range PROTIME 15.3 (H) 11.3 - 13.9 seconds INR 1.18 (H) 0.90 - 1.10 CBC with Differential Result Value Ref Range WBC 7.9 4.0 - 11.0 K/uL RBC 3.40 (L) 4.30 - 5.70 M/uL Hgb 10.2 (L) 13.5 - 18.0 g/dL Hct 30.2 (L) 40.0 - 51.0 % MCV 88.9 83.0 - 101.0 fL MCH 30.0 28.0 - 35.0 pg MCHC 33.8 32.0 - 36.0 g/dL RDW-CV 16.1 (H) <15.0 % Platelet Count 364 140 - 440 K/uL MPV 8.2 fL % Neutrophils 75.8 45.0 - 82.0 % % Lymphocytes 6.3 (L) 20.0 - 45.0 % % Monocytes 10.6 4.0 - 12.0 % % Eosinophils 6.7 (H) 0.0 - 5.0 % % Basophils 0.6 0.0 - 1.0 % Absolute Neutrophils 6.00 1.80 - 8.50 K/uL Absolute Lymphocytes 0.50 (L) 0.60 - 3.20 K/uL Absolute Monocytes 0.80 0.00 - 1.00 K/uL Absolute Eosinophils 0.50 (H) 0.00 - 0.40 K/uL Absolute Basophils 0.00 0.00 - 0.10 K/uL Comprehensive Metabolic Panel Result Value Ref Range NA 139 136 - 149 mmol/L K 3.7 3.5 - 5.1 mmol/L CL 102 98 - 109 mmol/L CO2 30 24 - 31 mmol/L ANION GAP 7 3 - 16 mmol/L GLUCOSE 101 70 - 109 mg/dL BUN 22 (H) 7 - 18 mg/dL Creatinine, Serum/Plasma 1.21 0.60 - 1.30 mg/dL eGFR if not 57 (L) >=60 mL/min/1.73m2 CALCIUM 8.6 8.3 - 10.5 mg/dL ALBUMIN 2.2 (L) 3.2 - 5.0 g/dL BILIRUBIN TOTAL 1.1 0.1 - 1.5 mg/dL Total protein 5.4 (L) 6.0 - 7.8 g/dL AST 66 (H) 10 - 42 U/L ALT 71 (H) 6 - 45 U/L ALK PHOS 122 (H) 40 - 110 U/L GLOBULIN 3.2 2.1 - 3.8 g/dL Albumin/Globulin ratio 0.7 (L) 0.8 - 2.0 BUN/CREA 18.2 Magnesium Result Value Ref Range MG 1.6 (L) 1.8 - 2.5 mg/dL Red Blood Cells (PRBC) - Crossmatch Result Value Ref Range Product Code O0238G71 UNIT # [id number] UNIT ABO O UNIT RH POS CROSSMATCH INTERP Compatible Unit Status Returned Blood Product ABORh OPOS Blood Product Expiration Date and Time Product Blood Type Barcode 5100 Product Code P6385U19 UNIT # [id number] UNIT ABO O UNIT RH POS CROSSMATCH INTERP Compatible Unit Status Transfused Blood Product ABORh OPOS Blood Product Expiration Date and Time Product Blood Type Barcode 5100 No results found. Current Facility-Administered Medications: acetaminophen 650 mg Oral Q4H PRN albuterol-ipratropium 3 mL Nebulization RT Q4H PRN alteplase 2 mg Intercatheter PRN amiodarone 200 mg Oral Daily atorvaSTATin 20 mg Oral Nightly cefTRIAXone 1 g Intravenous Daily docusate sodium 100 mg Oral BID PRN esmolol drip in saline 25-200 mcg/kg/min Intravenous Titrated fentaNYL (PF) 25-50 mcg Intravenous Q1H PRN heparin 5,000 Units Subcutaneous 2 times per day lactated ringers Intravenous Continuous norepinephrine 1-30 mcg/min Intravenous Titrated oxyCODONE 5-10 mg Oral Q4H PRN polyethylene glycol 17 g Oral Daily PRN senna 8.6 mg Oral BID PRN simethicone 80 mg Oral 4x Daily PRN CURRENT MEDICATIONS: Current Facility-Administered Medications Medication Dose Route Frequency Provider Last Rate Last Dose acetaminophen (TYLENOL) tablet 650 mg 650 mg Oral Q4H PRN Gamal Serrano MD 650 mg at 12/24/16 0750 albuterol-ipratropium (DUONEB) 2.5-0.5 mg/3 mL nebulizer solution 3 mL 3 mL Nebulizati on RT Q4H PRN Gamal Serrano MD alteplase (CATHFLO ACTIVASE) injection 2 mg 2 mg Intercatheter PRN Angel Hendrix MD 2 mg at 12/25/16 1303 amiodarone (PACERONE) tablet 200 mg 200 mg Oral Daily Gamal Serrano MD 200 mg at 0 12/28/16 0834 atorvaSTATin (LIPITOR) tablet 20 mg 20 mg Oral Nightly Gamal Serrano MD 20 mg at 0 12/27/164 cefTRIAXone (ROCEPHIN) 1 g in sodium chloride 0.9% 50 mL IVPB 1 g Intravenous Daily Vr nadine Hendrix MD 100 mL/hr at 12/28/16 0856 1 g at 12/28/16 0856 docusate sodium (COLACE) capsule 100 mg 100 mg Oral BID PRN Gamal Serrano MD 100 m g at 12/26/16 0908 esmolol drip in saline (BREVIBLOC) 10 mg/mL infusion 25-200 mcg/kg/min Intravenous Tit rated Radha Hoyt MD 17.7 mL/hr at 12/28/16 1436 35 mcg/kg/min at 12/28/16 1436 fentaNYL (PF) injection 25-50 mcg 25-50 mcg Intravenous Q1H PRN Gamal Serrano MD 2 5 mcg at 12/24/16 0022 heparin 5,000 units/mL injection 5,000 Units 5,000 Units Subcutaneous 2 times per day Radha Hoyt MD 5,000 Units at 12/28/16 0834 lactated ringers (LR) infusion Intravenous Continuous Valentenelda Munoz MD norepinephrine in NS (LEVOPHED) 16 mcg/mL infusion 1-30 mcg/min Intravenous Titrated V debi Hendrix MD Stopped at 12/24/16 1111 oxyCODONE (ROXICODONE) tablet 5-10 mg 5-10 mg Oral Q4H PRN Gamal Serrano MD 5 mg a t 12/27/16 1354 polyethylene glycol (MIRALAX) powder 17 g 17 g Oral Daily PRN Gamal Serrano MD 17 g at 12/24/16 0750 senna (SENOKOT) tablet 8.6 mg 8.6 mg Oral BID PRN Gamal Serrano MD 8.6 mg at 12/25 simethicone (MYLICON) chewable tablet 80 mg 80 mg Oral 4x Daily PRN Radha Hoyt MD 80 mg at 12/27/162100 ASSESSMENT and PLAN: Active Hospital Problems Diagnosis Anticoagulant long-term use Atrial flutter Femur fracture, left *Femur fracture, right Resolved Hospital Problems Diagnosis Date Noted Date Resolved No resolved problems to display. #1 Status post hemorrhagic shock: -Secondary to bilateral femur fracture in the setting of elevated INR, s/p repair by Dr. Refugio hernandez -Status post volume resuscitation with IV fluids and PRBC -Blood pressure stable now -Hemoglobin stable continue monitor -Reverse Coumadin induced coagulopathy as indicated below #2 Elevated INR: -Resolved -Secondary to Coumadin administration -Continue to Hold Coumadin -s/ p 2 units of FFP -s/p IV vitamin K #3 Volume overload with possible underlying diastolic heart failure: -Intermittent IV Lasix to achieve euvolemic state -Received IV Lasix today -Strict I's and O's -Echocardiogram revealing diastolic dysfunction (thick LV, dilated LA) #4 Acute hypoxemic respiratory failure: -Improved -With evidence of volume overload and bilateral distribution on chest x-ray and negative Pr o calcitonin This appears to be likely to underlying acute diastolic congestive heart failure rather bossman n pneumonia -Continue IV Lasix as above #5 A. fib RVR: - Improved - Continue amiodarone, continue to hold warfarin - Esmolol drip for heart rate greater than 110 -IV Cardizem given and was not tolerated - Continue monitor on telemetry *Anticipate discharge when heart rate is better controlled. DVT Prophylaxis SCD's while in bed Code Status DNR/DNI. Total time of approximately 35 minutes was spent with the patient and/or patient's family, and/or on the patient's floor/unit, of which more than 50% was spent counseling and/or coord ination the patient's care as outlined above. Radha Hoyt 12/28/2016 15:06 [facility] Radha Hawthorne MD - 12/27/2016 4:44 PM PDTFormatting of this note might be di fferent from the original. [facility] HOSPITALIST PROGRESS NOTE Patient: Dora Thomason : 1930: Age: 86 y.o. MedRec: [id number] PCP: Carlos Alberto Galeas MD Admission date: 12/18/2016 Hospital day # : 9 Physician author: Radha Hoyt MD Today: 12/27/2016 SUBJECTIVE: Patient sitting in bed comfortably , continues to feel better, continues to complain of pa in in bilateral lower extremities when working with physical therapy. Denies any shortness of breath chest pain or palpitations.. VITALS: Temp: 37.1 C (98.8 F), Pulse: 93, Resp: 17, BP: 98/60, SpO2 98 % on nasal cannula at fl ow rate 2L/min Temp Min: 36.7 C (98.1 F) Max: 37.4 C (99.3 F) Weight: 78 kg (172 lb) I/O last 3 completed shifts: In: 2913.2 [P.O.:2820; IV Piggyback:93.2] Out: 5575 [Urine:5575] I/O this shift: In: 750 [P.O.:750] Out: 900 [Urine:900] PHYSICAL EXAM: Gen Jerri - pleasant white male, alert, cooperative and no distress Head - Normocephalic, without obvious abnormality, atraumatic Eyes - PERRL, conjunctiva/corneas clear, EOM's intact both eyes ENT - mucous membranes moist Neck - supple Lungs - expiratory wheezes and bibasilar rales R<L Heart - irregularly irregular rhythm with rapid rate Abdomen - soft, non-tender, without masses or organomegaly Extremities - +1 peripheral edema, no clubbing or cyanosis Skin - no rashes Neurologic - Alert and oriented x 3. CN II-XII intact. DIAGNOSTIC STUDIES: Available data and images were reviewed personally. Significant results and findings are a ddressed here or in the Assessment and Plan. Recent Results (from the past 24 hour(s)) Protime INR Result Value Ref Range PROTIME 15.9 (H) 11.3 - 13.9 seconds INR 1.24 (H) 0.90 - 1.10 CBC with Differential Result Value Ref Range WBC 8.3 4.0 - 11.0 K/uL RBC 3.23 (L) 4.30 - 5.70 M/uL Hgb 9.6 (L) 13.5 - 18.0 g/dL Hct 28.7 (L) 40.0 - 51.0 % MCV 88.8 83.0 - 101.0 fL MCH 29.7 28.0 - 35.0 pg MCHC 33.4 32.0 - 36.0 g/dL RDW-CV 16.4 (H) <15.0 % Platelet Count 310 140 - 440 K/uL MPV 8.0 fL % Neutrophils 76.8 45.0 - 82.0 % % Lymphocytes 4.2 (L) 20.0 - 45.0 % % Monocytes 11.8 4.0 - 12.0 % % Eosinophils 6.4 (H) 0.0 - 5.0 % % Basophils 0.8 0.0 - 1.0 % Absolute Neutrophils 6.40 1.80 - 8.50 K/uL Absolute Lymphocytes 0.40 (L) 0.60 - 3.20 K/uL Absolute Monocytes 1.00 0.00 - 1.00 K/uL Absolute Eosinophils 0.50 (H) 0.00 - 0.40 K/uL Absolute Basophils 0.10 0.00 - 0.10 K/uL Comprehensive Metabolic Panel Result Value Ref Range NA 138 136 - 149 mmol/L K 2.8 (L) 3.5 - 5.1 mmol/L CL 104 98 - 109 mmol/L CO2 31 24 - 31 mmol/L ANION GAP 3 3 - 16 mmol/L GLUCOSE 99 70 - 109 mg/dL BUN 19 (H) 7 - 18 mg/dL Creatinine, Serum/Plasma 1.07 0.60 - 1.30 mg/dL eGFR if not >60 >=60 mL/min/1.73m2 CALCIUM 8.3 8.3 - 10.5 mg/dL ALBUMIN 2.1 (L) 3.2 - 5.0 g/dL BILIRUBIN TOTAL 1.1 0.1 - 1.5 mg/dL Total protein 4.8 (L) 6.0 - 7.8 g/dL AST 79 (H) 10 - 42 U/L ALT 77 (H) 6 - 45 U/L ALK PHOS 108 40 - 110 U/L GLOBULIN 2.7 2.1 - 3.8 g/dL Albumin/Globulin ratio 0.8 0.8 - 2.0 BUN/CREA 17.8 Xr Femur Right 2+vw Result Date: 12/25/2016 FIVE VIEWS RIGHT FEMUR 12/25/2016 5:38 PM CLINICAL HISTORY: post op ORIF COMPARISON: Intraope rative spot films December 19, radiographs December 18 FINDINGS: An intramedullary yulisa extends from th e level of the greater trochanter into the region of the femoral notch. A solitary proximal anchoring screw and two distal anchoring screws are present. The hardware appears well sea darek and bridges a previously visible comminuted mid diaphyseal fracture. There is markedly improved alignment of the fracture fragments with only mild residual displacement of the dom inant fragments persisting. A nondisplaced oblique fracture of the distal diaphysis is agai n visible anteriorly on the lateral view. No new fracture or subluxation is apparent. Ther e is generalized osteopenia. Left femoral ORIF hardware is partially imaged. The hip and s acroiliac joints, pubic symphysis and right femorotibial and patellofemoral compartments are maintained. A suprapatellar right knee effusion is suggested. There is extensive iliofemor al vascular calcification. Skin samy project lateral to the right hip and gluteal region , along with the distal thigh. IMPRESSION - 1. IMPROVED ALIGNMENT OF THE MID RIGHT FEMORAL DIAPHYSEAL FRACTURE STATUS POST ORIF. NONDISPLACED FRACTURE OF THE DISTAL DIAPHYSIS IS AGA IN VISIBLE. 2. KNEE EFFUSION. 3. OSTEOPENIA AND VASCULAR CALCIFICATION. Dictated and Jo d by: Daniel Jordan MD Electronically signed: 12/25/2016 9:53 PM Xr Hip Left 2-3 Views Result Date: 12/25/2016 FOUR VIEWS LEFT HIP 12/25/2016 5:49 PM CLINICAL HISTORY: post op ORIF COMPARISON: Radiographs December 18, intraoperative spot films December 19 FINDINGS: An intramedullary yulisa again extends from the left greater trochanter to the mid femoral diaphysis, with a solitary mid anchoring scr ew and proximal anchoring nail extending into the femoral neck and head. The hardware appea rs well seated and bridges the previously visible comminuted, oblique intertrochanteric frac ture. There is improved alignment of the dominant fragments, which demonstrate mild residua l displacement. Proximal displacement of a fragment containing the lesser trochanter is jerri arent. Right femoral fixation hardware is partially imaged. There is generalized osteopeni a and no new fracture or subluxation is apparent. The hip and sacroiliac joints and pubic s ymphysis are maintained. Iliofemoral vascular calcification is present. Samy project lat eral to the hip and in the proximal thigh. A bladder catheter is apparent. IMPRESSION - 1. IMPROVED ALIGNMENT OF THE INTERTROCHANTERIC LEFT FEMUR FRACTURE WITH INTACT FIXATION HARDW ARE. 2. OSTEOPENIA AND VASCULAR CALCIFICATION. Dictated and Signed by: Daniel Jordan MD Izabella ctronically signed: 12/25/2016 9:48 PM Current Facility-Administered Medications: acetaminophen 650 mg Oral Q4H PRN albuterol-ipratropium 3 mL Nebulization RT Q4H PRN alteplase 2 mg Intercatheter PRN amiodarone 200 mg Oral Daily atorvaSTATin 20 mg Oral Nightly cefTRIAXone 1 g Intravenous Daily docusate sodium 100 mg Oral BID PRN esmolol drip in saline 50-200 mcg/kg/min Intravenous Titrated fentaNYL (PF) 25-50 mcg Intravenous Q1H PRN heparin 5,000 Units Subcutaneous 2 times per day lactated ringers Intravenous Continuous norepinephrine 1-30 mcg/min Intravenous Titrated oxyCODONE 5-10 mg Oral Q4H PRN polyethylene glycol 17 g Oral Daily PRN potassium chloride 40 mEq Oral TID senna 8.6 mg Oral BID PRN simethicone 80 mg Oral 4x Daily PRN CURRENT MEDICATIONS: Current Facility-Administered Medications Medication Dose Route Frequency Provider Last Rate Last Dose acetaminophen (TYLENOL) tablet 650 mg 650 mg Oral Q4H PRN Gamal Serrano MD 650 mg at 12/24/16 0750 albuterol-ipratropium (DUONEB) 2.5-0.5 mg/3 mL nebulizer solution 3 mL 3 mL Nebulizati on RT Q4H PRN Gamal Serrano MD alteplase (CATHFLO ACTIVASE) injection 2 mg 2 mg Intercatheter PRN Angel Hendrix MD 2 mg at 12/25/16 1303 amiodarone (PACERONE) tablet 200 mg 200 mg Oral Daily Gamal Serrano MD 200 mg at 0 12/27/16 0802 atorvaSTATin (LIPITOR) tablet 20 mg 20 mg Oral Nightly Gamal Serrano MD 20 mg at 0 12/26/16 2107 cefTRIAXone (ROCEPHIN) 1 g in sodium chloride 0.9% 50 mL IVPB 1 g Intravenous Daily Vr nadine Hendrix MD 100 mL/hr at 12/27/16 0802 1 g at 12/27/16 0802 docusate sodium (COLACE) capsule 100 mg 100 mg Oral BID PRN Gamal Serrano MD 100 m g at 12/26/16 0908 esmolol drip in saline (BREVIBLOC) 10 mg/mL infusion 50-200 mcg/kg/min Intravenous Tit rated Radha Hoyt MD 25.3 mL/hr at 12/27/16 1542 50 mcg/kg/min at 12/27/16 1542 fentaNYL (PF) injection 25-50 mcg 25-50 mcg Intravenous Q1H PRN Gamal Serrano MD 2 5 mcg at 12/24/16 0022 heparin 5,000 units/mL injection 5,000 Units 5,000 Units Subcutaneous 2 times per day Radha Hoyt MD 5,000 Units at 12/27/16 1020 lactated ringers (LR) infusion Intravenous Continuous Valente Munoz MD norepinephrine in NS (LEVOPHED) 16 mcg/mL infusion 1-30 mcg/min Intravenous Titrated V debi Hendrix MD Stopped at 12/24/16 1111 oxyCODONE (ROXICODONE) tablet 5-10 mg 5-10 mg Oral Q4H PRN Gamal Serrano MD 5 mg a t 12/27/16 1354 polyethylene glycol (MIRALAX) powder 17 g 17 g Oral Daily PRN Gamal Serrano MD 17 g at 12/24/16 0750 potassium chloride (K-DUR) ER tablet 40 mEq 40 mEq Oral TID Radha Hoyt MD 40 mEq at 12/27/16 1020 senna (SENOKOT) tablet 8.6 mg 8.6 mg Oral BID PRN Gamal Serrano MD 8.6 mg at 12/25 2054 simethicone (MYLICON) chewable tablet 80 mg 80 mg Oral 4x Daily PRN Radha Hoyt MD 80 mg at 12/26/16 0908 ASSESSMENT and PLAN: Active Hospital Problems Diagnosis Anticoagulant long-term use Atrial flutter Femur fracture, left *Femur fracture, right Resolved Hospital Problems Diagnosis Date Noted Date Resolved No resolved problems to display. #1 Status post hemorrhagic shock: -Secondary to bilateral femur fracture, s/p repair by Dr. Mancuso -Status post volume resuscitation with IV fluids and PRBC -Blood pressure stable now -Hemoglobin stable continue monitor -Reverse Coumadin induced coagulopathy as indicated below #2 Elevated INR: -Resolved -Secondary to Coumadin administration -Continue to Hold Coumadin -s/ p 2 units of FFP -s/p IV vitamin K #3 Volume overload with possible underlying diastolic heart failure: -Intermittent IV Lasix to achieve euvolemic state -Strict I's and O's -Echocardiogram revealing diastolic dysfunction (thick LV, dilated LA) #4 Acute hypoxemic respiratory failure: -With evidence of volume overload and bilateral distribution on chest x-ray and negative Pr o calcitonin This appears to be likely to underlying acute diastolic congestive heart failure rather bossman n pneumonia -Continue IV Lasix as above -Currently breathing comfortably on room air #5 A. fib RVR: - Improved - Continue amiodarone, continue to hold warfarin - Esmolol drip trial -IV Cardizem given and was not tolerated - Continue monitor on telemetry DVT Prophylaxis SCD's while in bed Code Status DNR/DNI. Total time of approximately 35 minutes was spent with the patient and/or patient's family, and/or on the patient's floor/unit, of which more than 50% was spent counseling and/or coord ination the patient's care as outlined above. Radha Hoyt 12/27/2016 16:44 [facility] Elsa Rodriguez PA-C - 12/27/2016 11:09 AM PDTFormatting of this note mi ght be different from the original. Subjective: Pain well controlled. Reports he is feeling better in general. He was able t o stand with therapy, just not for very long. He is more alert and communicative today. Objective: Patient Vitals for the past 24 hrs: BP Temp Temp src Pulse Resp SpO2 Weight 12/27/16 1020 100/69 - - - - - - 12/27/16 0717 103/69 36.7 C (98.1 F) Bladder 127 (!) 31 95 % - 12/27/16 0400 112/71 37.1 C (98.8 F) Bladder 122 15 99 % 84.2 kg (185 lb 10 oz) 12/27/16 0055 - - - 118 20 95 % - 12/27/16 0000 113/88 37.3 C (99.1 F) - 121 19 93 % - 12/26/16 2341 109/66 37.4 C (99.3 F) Bladder 118 19 93 % - 12/26/16 2040 - - - 123 23 96 % - 12/26/16 1950 114/73 37.3 C (99.1 F) Bladder 123 25 94 % - 12/26/16 1539 102/79 37.4 C (99.3 F) Bladder 129 15 94 % - 12/26/16 1319 99/72 - - 116 - 96 % - 12/26/16 1200 - - - 124 16 92 % - 12/26/16 1122 103/61 37.5 C (99.5 F) Bladder 102 24 94 % - Recent Results (from the past 24 hour(s)) Occult Blood, Stool, Specimen 1 Result Value Ref Range STOOL OCCULT BLOOD X1 Negative ECHO Complete Result Value Ref Range [id number]-TTE TRANSTHORACIC ECHO 60 Protime INR Result Value Ref Range PROTIME 15.9 (H) 11.3 - 13.9 seconds INR 1.24 (H) 0.90 - 1.10 CBC with Differential Result Value Ref Range WBC 8.3 4.0 - 11.0 K/uL RBC 3.23 (L) 4.30 - 5.70 M/uL Hgb 9.6 (L) 13.5 - 18.0 g/dL Hct 28.7 (L) 40.0 - 51.0 % MCV 88.8 83.0 - 101.0 fL MCH 29.7 28.0 - 35.0 pg MCHC 33.4 32.0 - 36.0 g/dL RDW-CV 16.4 (H) <15.0 % Platelet Count 310 140 - 440 K/uL MPV 8.0 fL % Neutrophils 76.8 45.0 - 82.0 % % Lymphocytes 4.2 (L) 20.0 - 45.0 % % Monocytes 11.8 4.0 - 12.0 % % Eosinophils 6.4 (H) 0.0 - 5.0 % % Basophils 0.8 0.0 - 1.0 % Absolute Neutrophils 6.40 1.80 - 8.50 K/uL Absolute Lymphocytes 0.40 (L) 0.60 - 3.20 K/uL Absolute Monocytes 1.00 0.00 - 1.00 K/uL Absolute Eosinophils 0.50 (H) 0.00 - 0.40 K/uL Absolute Basophils 0.10 0.00 - 0.10 K/uL Comprehensive Metabolic Panel Result Value Ref Range NA 138 136 - 149 mmol/L K 2.8 (L) 3.5 - 5.1 mmol/L CL 104 98 - 109 mmol/L CO2 31 24 - 31 mmol/L ANION GAP 3 3 - 16 mmol/L GLUCOSE 99 70 - 109 mg/dL BUN 19 (H) 7 - 18 mg/dL Creatinine, Serum/Plasma 1.07 0.60 - 1.30 mg/dL eGFR if not >60 >=60 mL/min/1.73m2 CALCIUM 8.3 8.3 - 10.5 mg/dL ALBUMIN 2.1 (L) 3.2 - 5.0 g/dL BILIRUBIN TOTAL 1.1 0.1 - 1.5 mg/dL Total protein 4.8 (L) 6.0 - 7.8 g/dL AST 79 (H) 10 - 42 U/L ALT 77 (H) 6 - 45 U/L ALK PHOS 108 40 - 110 U/L GLOBULIN 2.7 2.1 - 3.8 g/dL Albumin/Globulin ratio 0.8 0.8 - 2.0 BUN/CREA 17.8 Bilateral Lower Extremity: Dressing: slight serosanguinous drainage in dressing, no active drainage Sensation: grossly intact and intact all toes Motor: able to flex/extend toes, plantar/dorsiflex ankle, + EHL Circulation: 1+ dorsalis pedis pulse (equal other side) and capillary refill < 2 seconds Assessment: POD # 7 s/p ORIF bilateral femur fractures Radiographs show the fractures to be in good alignment, hardware is stable and without sign of complication. Plan: Continue with therapy as able. Continue to appreciate medical management per hospitalist itzel byrd. When ready for transfer to SNF, he will need a follow up appointment with Dr. Mancuso's office at four weeks post op. Dressing changes can be prn. May shower, no tub soaks. Sut ures should be removed at POD # 10 by nursing team. Elsa Arzola PA-C DATE/TIME: 12/27/2016 11:09 Ora Medina PharmD - 12/27/2016 6:49 AM PDTFormatting of this note might be different from the origi nal. WARFARIN PER PHARMACY PROTOCOL: CURRENTLY HOLDING WARFARIN (High INR) Subjective/Objective: Dora Thomason is a 86 y.o. male admitted on 12/18/2016 for orthopedic surgery secondar y to femoral fracture. 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 Patient is receiving warfarin for thromboprophyla xis postop and also for atrial flutter. Surgery date: 12/19/[address] Mancuso Goal INR: 2-3 Enoxaparin bridge: disch Inr>2 none Drug Interactions:Amiodarone Sensitizers:Age Recent Labs Lab 12/26/16 0327 12/25/16 1808 12/25/16 1715 12/25/16 0355 12/24/16 0351 CREA 1.17 -- -- 0.98 -- 1.01 HGB 9.6* 9.0* -- 9.3* < > 7.2* HCT 28.8* 27.4* -- 27.3* < > 21.5* PLT 286 261 -- 232 -- 209 INR 2.15* -- 2.22* 3.36* -- 2.28* < > = values in this interval not displayed.Estimated Creatinine Clearance: 60 mL/min (base d on Cr of 1.01). 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 Patient received Vit. K 5mg ivpb x1 12/26. Pt also w/ component of heart failure (contributing to elevated inr) Current INR is 2.15. Spoke with Dr. Kearney who instructed that warfarin will be held t aftab and will most likely be held until discharge. Plan: HOLD warfarin. Pt has scds INR, Hgb, Hct in am. 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 HOSPITALIST PROGRESS NOTE Patient: Dora Thomason : 1930: Age: 86 y.o. MedRec: [id number] PCP: Carlos Alberto Galeas MD Admission date: 12/18/2016 Hospital day # : 8 Physician author: Radha Hoyt MD Today: 12/26/2016 SUBJECTIVE: Patient sitting continues to feel better, and has been any pain. Still has some dyspnea that is improved compared to yesterday. VITALS: Temp: 37.5 C (99.5 F), Pulse: 116, Resp: 24, BP: 99/72 (at rest in bed), SpO2 96 % on n avril cannula at flow rate 2L/min Temp Min: 36.8 C (98.2 F) Max: 38 C (100.4 F) Weight: 78 kg (172 lb) I/O last 3 completed shifts: In: 3336 [P.O.:2320; I.V.:100; Blood:594; IV Piggyback:322] Out: 3920 [Urine:3920] I/O this shift: In: 93.2 [IV Piggyback:93.2] Out: 450 [Urine:450] PHYSICAL EXAM: Gen Jerri - pleasant white male, alert, cooperative and no distress Head - Normocephalic, without obvious abnormality, atraumatic Eyes - PERRL, conjunctiva/corneas clear, EOM's intact both eyes ENT - mucous membranes moist Neck - supple Lungs - expiratory wheezes and bibasilar rales R<L Heart - irregularly irregular rhythm with rapid rate Abdomen - soft, non-tender, without masses or organomegaly Extremities - +1 peripheral edema, no clubbing or cyanosis Skin - no rashes Neurologic - Alert and oriented x 3. CN II-XII intact. DIAGNOSTIC STUDIES: Available data and images were reviewed personally. Significant results and findings are a ddressed here or in the Assessment and Plan. Recent Results (from the past 24 hour(s)) Protime INR Result Value Ref Range PROTIME 25.2 (H) 11.3 - 13.9 seconds INR 2.22 (H) 0.90 - 1.10 B Type Natriuretic Peptide Result Value Ref Range BNP 375 (H) <100 pg/mL CBC with Differential Result Value Ref Range WBC 8.4 4.0 - 11.0 K/uL RBC 3.08 (L) 4.30 - 5.70 M/uL Hgb 9.0 (L) 13.5 - 18.0 g/dL Hct 27.4 (L) 40.0 - 51.0 % MCV 88.8 83.0 - 101.0 fL MCH 29.2 28.0 - 35.0 pg MCHC 32.9 32.0 - 36.0 g/dL RDW-CV 16.2 (H) <15.0 % Platelet Count 261 140 - 440 K/uL MPV 7.8 fL % Neutrophils 80.2 45.0 - 82.0 % % Lymphocytes 3.5 (L) 20.0 - 45.0 % % Monocytes 11.2 4.0 - 12.0 % % Eosinophils 4.9 0.0 - 5.0 % % Basophils 0.2 0.0 - 1.0 % Absolute Neutrophils 6.80 1.80 - 8.50 K/uL Absolute Lymphocytes 0.30 (L) 0.60 - 3.20 K/uL Absolute Monocytes 0.90 0.00 - 1.00 K/uL Absolute Eosinophils 0.40 0.00 - 0.40 K/uL Absolute Basophils 0.00 0.00 - 0.10 K/uL Protime INR Result Value Ref Range PROTIME 24.6 (H) 11.3 - 13.9 seconds INR 2.15 (H) 0.90 - 1.10 CBC with Differential Result Value Ref Range WBC 8.7 4.0 - 11.0 K/uL RBC 3.25 (L) 4.30 - 5.70 M/uL Hgb 9.6 (L) 13.5 - 18.0 g/dL Hct 28.8 (L) 40.0 - 51.0 % MCV 88.4 83.0 - 101.0 fL MCH 29.6 28.0 - 35.0 pg MCHC 33.4 32.0 - 36.0 g/dL RDW-CV 16.6 (H) <15.0 % Platelet Count 286 140 - 440 K/uL MPV 7.9 fL % Neutrophils 77.8 45.0 - 82.0 % % Lymphocytes 4.8 (L) 20.0 - 45.0 % % Monocytes 11.4 4.0 - 12.0 % % Eosinophils 5.3 (H) 0.0 - 5.0 % % Basophils 0.7 0.0 - 1.0 % Absolute Neutrophils 6.80 1.80 - 8.50 K/uL Absolute Lymphocytes 0.40 (L) 0.60 - 3.20 K/uL Absolute Monocytes 1.00 0.00 - 1.00 K/uL Absolute Eosinophils 0.50 (H) 0.00 - 0.40 K/uL Absolute Basophils 0.10 0.00 - 0.10 K/uL Comprehensive Metabolic Panel Result Value Ref Range NA 140 136 - 149 mmol/L K 3.4 (L) 3.5 - 5.1 mmol/L CL 104 98 - 109 mmol/L CO2 27 24 - 31 mmol/L ANION GAP 9 3 - 16 mmol/L GLUCOSE 88 70 - 109 mg/dL BUN 18 7 - 18 mg/dL Creatinine, Serum/Plasma 1.17 0.60 - 1.30 mg/dL eGFR if not 59 (L) >=60 mL/min/1.73m2 CALCIUM 8.4 8.3 - 10.5 mg/dL ALBUMIN 2.2 (L) 3.2 - 5.0 g/dL BILIRUBIN TOTAL 1.3 0.1 - 1.5 mg/dL Total protein 5.3 (L) 6.0 - 7.8 g/dL AST 115 (H) 10 - 42 U/L ALT 90 (H) 6 - 45 U/L ALK PHOS 114 (H) 40 - 110 U/L GLOBULIN 3.1 2.1 - 3.8 g/dL Albumin/Globulin ratio 0.7 (L) 0.8 - 2.0 BUN/CREA 15.4 PRODUCT: Plasma Result Value Ref Range Product Code X8647I45 UNIT # [id number] UNIT ABO O UNIT RH POS Unit Status Transfused Blood Product ABORh OPOS Blood Product Expiration Date and Time Product Blood Type Barcode 5100 Product Code S3833W17 UNIT # [id number] UNIT ABO O UNIT RH POS Unit Status Transfused Blood Product ABORh OPOS Blood Product Expiration Date and Time Product Blood Type Barcode 5100 Occult Blood, Stool, Specimen 1 Result Value Ref Range STOOL OCCULT BLOOD X1 Negative ECHO Complete Result Value Ref Range [id number]-[id number] TRANSTHORACIC ECHO 60 Xr Chest Ap Portable Result Date: 12/25/2016 PORTABLE CHEST X-RAY: 12/25/2016 2:01 PM CLINICAL HISTORY:PICC line repositioned, check place ment COMPARISON: 12/22/2016 FINDINGS:Right-sided PICC line has been withdrawn, so that the tip is now just into the upper superior vena cava. Stable mild cardiomegaly. Stable mildly prom inent pulmonary vasculature. Aortic and mediastinal contours are stable. Descending aorta is tortuous with intimal calcification. Low volume inspiration exam. Hazy density at the right lung base may relate to the low volume, or represent some degree of atelectasis or infiltra te. No other areas of abnormal lung density. No effusion. IMPRESSION - 1. Interval withdrawa l of right PICC line, to the level of the upper superior vena cava. 2. Hazy density at the r ight lung base which may relate to low volume inspiration or represents some degree of atele ctasis or infiltrate. Dictated and Signed by: Miguel Ventura MD Electronically signed: 2016 2:42 PM Xr Femur Right 2+vw Result Date: 12/25/2016 FIVE VIEWS RIGHT FEMUR 12/25/2016 5:38 PM CLINICAL HISTORY: post op ORIF COMPARISON: Intraope rative spot films December 19, radiographs December 18 FINDINGS: An intramedullary yulisa extends from th e level of the greater trochanter into the region of the femoral notch. A solitary proximal anchoring screw and two distal anchoring screws are present. The hardware appears well sea darek and bridges a previously visible comminuted mid diaphyseal fracture. There is markedly improved alignment of the fracture fragments with only mild residual displacement of the dom inant fragments persisting. A nondisplaced oblique fracture of the distal diaphysis is agai n visible anteriorly on the lateral view. No new fracture or subluxation is apparent. Ther e is generalized osteopenia. Left femoral ORIF hardware is partially imaged. The hip and s acroiliac joints, pubic symphysis and right femorotibial and patellofemoral compartments are maintained. A suprapatellar right knee effusion is suggested. There is extensive iliofemor al vascular calcification. Skin samy project lateral to the right hip and gluteal region , along with the distal thigh. IMPRESSION - 1. IMPROVED ALIGNMENT OF THE MID RIGHT FEMORAL DIAPHYSEAL FRACTURE STATUS POST ORIF. NONDISPLACED FRACTURE OF THE DISTAL DIAPHYSIS IS AGA IN VISIBLE. 2. KNEE EFFUSION. 3. OSTEOPENIA AND VASCULAR CALCIFICATION. Dictated and Jo d by: Daniel Jordan MD Electronically signed: 12/25/2016 9:53 PM Xr Hip Left 2-3 Views Result Date: 12/25/2016 FOUR VIEWS LEFT HIP 12/25/2016 5:49 PM CLINICAL HISTORY: post op ORIF COMPARISON: Radiographs December 18, intraoperative spot films December 19 FINDINGS: An intramedullary yulisa again extends from the left greater trochanter to the mid femoral diaphysis, with a solitary mid anchoring scr ew and proximal anchoring nail extending into the femoral neck and head. The hardware appea rs well seated and bridges the previously visible comminuted, oblique intertrochanteric frac ture. There is improved alignment of the dominant fragments, which demonstrate mild residua l displacement. Proximal displacement of a fragment containing the lesser trochanter is jerri arent. Right femoral fixation hardware is partially imaged. There is generalized osteopeni a and no new fracture or subluxation is apparent. The hip and sacroiliac joints and pubic s ymphysis are maintained. Iliofemoral vascular calcification is present. Samy project lat eral to the hip and in the proximal thigh. A bladder catheter is apparent. IMPRESSION - 1. IMPROVED ALIGNMENT OF THE INTERTROCHANTERIC LEFT FEMUR FRACTURE WITH INTACT FIXATION HARDW ARE. 2. OSTEOPENIA AND VASCULAR CALCIFICATION. Dictated and Signed by: Daniel Jordan MD Izabella ctronically signed: 12/25/2016 9:48 PM Current Facility-Administered Medications: acetaminophen 650 mg Oral Q4H PRN albuterol-ipratropium 3 mL Nebulization RT Q4H PRN alteplase 2 mg Intercatheter PRN amiodarone 200 mg Oral Daily atorvaSTATin 20 mg Oral Nightly cefTRIAXone 1 g Intravenous Daily docusate sodium 100 mg Oral BID PRN fentaNYL (PF) 25-50 mcg Intravenous Q1H PRN lactated ringers Intravenous Continuous norepinephrine 1-30 mcg/min Intravenous Titrated oxyCODONE 5-10 mg Oral Q4H PRN warfarin per pharmacy Other Pharmacy Consult polyethylene glycol 17 g Oral Daily PRN senna 8.6 mg Oral BID PRN simethicone 80 mg Oral 4x Daily PRN CURRENT MEDICATIONS: Current Facility-Administered Medications Medication Dose Route Frequency Provider Last Rate Last Dose acetaminophen (TYLENOL) tablet 650 mg 650 mg Oral Q4H PRN Gamal Serrano MD 650 mg at 12/24/16 0750 albuterol-ipratropium (DUONEB) 2.5-0.5 mg/3 mL nebulizer solution 3 mL 3 mL Nebulizati on RT Q4H PRN Gamal Serrano MD alteplase (CATHFLO ACTIVASE) injection 2 mg 2 mg Intercatheter PRN Angel Hendrix MD 2 mg at 12/25/16 1303 amiodarone (PACERONE) tablet 200 mg 200 mg Oral Daily Gamal Serrano MD 200 mg at 0 12/26/16 0845 atorvaSTATin (LIPITOR) tablet 20 mg 20 mg Oral Nightly Gamal Serrano MD 20 mg at 0 12/25/16 2044 cefTRIAXone (ROCEPHIN) 1 g in sodium chloride 0.9% 50 mL IVPB 1 g Intravenous Daily Vr nadine Hendrix MD 100 mL/hr at 12/26/16 0845 1 g at 12/26/16 0845 docusate sodium (COLACE) capsule 100 mg 100 mg Oral BID PRN Gamal Serrano MD 100 m g at 12/26/16 0908 fentaNYL (PF) injection 25-50 mcg 25-50 mcg Intravenous Q1H PRN Gamal Serrano MD 2 5 mcg at 12/24/16 0022 lactated ringers (LR) infusion Intravenous Continuous Valente Munoz MD norepinephrine in NS (LEVOPHED) 16 mcg/mL infusion 1-30 mcg/min Intravenous Titrated V debi Hendrix MD Stopped at 12/24/16 1111 oxyCODONE (ROXICODONE) tablet 5-10 mg 5-10 mg Oral Q4H PRN Gamal Serrano MD 10 mg at 12/26/16 0113 pharmacy to dose warfarin Other Pharmacy Consult Lambert Mancuso MD polyethylene glycol (MIRALAX) powder 17 g 17 g Oral Daily PRN Gamal Serrano MD 17 g at 12/24/16 0750 senna (SENOKOT) tablet 8.6 mg 8.6 mg Oral BID PRN Gamal Serrano MD 8.6 mg at 12/25 2054 simethicone (MYLICON) chewable tablet 80 mg 80 mg Oral 4x Daily PRN Radha Hoyt MD 80 mg at 12/26/16 0908 ASSESSMENT and PLAN: Active Hospital Problems Diagnosis Anticoagulant long-term use Atrial flutter Femur fracture, left *Femur fracture, right Resolved Hospital Problems Diagnosis Date Noted Date Resolved No resolved problems to display. #1 Status post hemorrhagic shock: -Secondary to bilateral femur fracture, s/p repair by Dr. Mancuso -Status post volume resuscitation with IV fluids and PRBC -Blood pressure stable now -Hemoglobin stable continue monitor -Reverse Coumadin induced cardiopathy as indicated below #2 Elevated INR: -Secondary to Coumadin administration -Continue to Hold Coumadin -s/ p 2 units of FFP -Repeat INR later today -s/p IV vitamin K -Recheck INR in a.m. #3 Volume overload with possible underlying diastolic heart failure: -Intermittent IV Lasix to achieve euvolemic state -Strict I's and O's -Echocardiogram revealing diastolic dysfunction (thick LV, dilated LA) #4 Acute hypoxemic respiratory failure: -With evidence of volume overload and bilateral distribution on chest x-ray and negative Pr o calcitonin This appears to be likely to underlying acute diastolic congestive heart failure rather bossman n pneumonia -Continue IV Lasix as above -Currently requiring 2 L via nasal cannula, attempting to wean off #5 A. fib RVR: - Improved - Continue amiodarone, continue to hold warfarin - Control likely to improve with IV diuresis - Continue monitor on telemetry DVT Prophylaxis SCD's while in bed Code Status DNR/DNI. Total time of approximately 35 minutes was spent with the patient and/or patient's family, and/or on the patient's floor/unit, of which more than 50% was spent counseling and/or coord ination the patient's care as outlined above. Radha Hoyt 12/26/2016 13:46 [facility] Joao Gaviria, PharmD - 12/26/2016 12:06 PM PDTFormatting of this note might b e different from the original. WARFARIN PER PHARMACY PROTOCOL: CURRENTLY HOLDING WARFARIN (High INR) Subjective/Objective: Dora Thomason is a 86 y.o. male admitted on 12/18/2016 for orthopedic surgery secondar y to femoral fracture. 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 Patient is receiving warfarin for thromboprophyla xis postop and also for atrial flutter. Surgery date: 12/19/[address] Mancuso Goal INR: 2-3 Enoxaparin bridge: disch Inr>2 none Drug Interactions:Amiodarone Sensitizers:Age Recent Labs Lab 12/26/16 0327 12/25/16 1808 12/25/16 1715 12/25/16 0355 12/24/16 0351 CREA 1.17 -- -- 0.98 -- 1.01 HGB 9.6* 9.0* -- 9.3* < > 7.2* HCT 28.8* 27.4* -- 27.3* < > 21.5* PLT 286 261 -- 232 -- 209 INR 2.15* -- 2.22* 3.36* -- 2.28* < > = values in this interval not displayed.Estimated Creatinine Clearance: 60 mL/min (base d on Cr of 1.01). Date 12/19 12/20 12/21 12/22 12/23 12/24 12/25 12/26 Hgb 10.9 8.7 9.1 7.8 7.7 7.2 9.3 9.6 Hct 33.4 26.5 26.7 23.4 23.1 21.5 27.3 28.8 Platelets 187 158 144 160 195 209 232 286 INR 1.78 1.67 1.82 2.07 2.18 2.28 3.36 2.15 Warfarin Dose 3 mg 3 mg 4 mg 3 mg - - HOLD HOLD Assessment: Patient was on warfarin for thromboprophylaxis s/p bilateral femur fx repair Pt admitted with a therapeutic INR, received 5 mg of Vit K in [place] and given FFP to help reverse anticoagulation in preparation for fx repair Previously, therapeutic on home regimen of 3 mg daily for aflutter/past cva Currently holding warfarin for ongoing low h/h due to blood loss anemia from surgery. Patient received Vit. K x1 this AM. Current INR is 2.15. Spoke with Dr. Kearney who instructed that warfarin will be held t aftab and will most likely be held until discharge. Plan: HOLD warfarin INR, Hgb, Hct in am. 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 I informed him that his left lung base is diminished with crackles, which means he needs to do it, clinically he needs to do it. Radha Hawthorne MD - 12/25/2016 4:55 PM PDTFormatting of th is note might be different from the original. [facility] HOSPITALIST PROGRESS NOTE Patient: Dora Thomason : 1930: Age: 86 y.o. MedRec: [id number] PCP: Carlos Alberto Galeas MD Admission date: 12/18/2016 Hospital day # : 7 Physician author: Radha Hoyt MD Today: 12/25/2016 SUBJECTIVE: Patient sitting bed eating lunch comfortably when seen earlier today his son is at bedside . Complains of mild shortness of breath however denies having any chest pain abdominal pain , his only complaint is a fracture pain in his right leg. VITALS: Temp: 37.8 C (100 F), Pulse: 123, Resp: 17, BP: 119/69, SpO2 91 % on nasal cannula at f low rate 1L/min Temp Min: 37.3 C (99.1 F) Max: 37.8 C (100 F) Weight: 78 kg (172 lb) I/O last 3 completed shifts: In: 3949 [P.O.:2440; I.V.:589; Blood:620; IV Piggyback:300] Out: 2245 [Urine:2245] I/O this shift: In: 847 [P.O.:120; I.V.:100; Blood:305; IV Piggyback:322] Out: - PHYSICAL EXAM: Gen Jerri - pleasant white male, alert, cooperative and no distress Head - Normocephalic, without obvious abnormality, atraumatic Eyes - PERRL, conjunctiva/corneas clear, EOM's intact both eyes ENT - mucous membranes moist Neck - supple Lungs - expiratory wheezes and bibasilar rales Heart - irregularly irregular rhythm with rapid rate Abdomen - soft, non-tender, without masses or organomegaly Extremities - +2 peripheral edema, no clubbing or cyanosis Skin - no rashes Neurologic - Alert and oriented x 3. CN II-XII intact. DIAGNOSTIC STUDIES: Available data and images were reviewed personally. Significant results and findings are a ddressed here or in the Assessment and Plan. Recent Results (from the past 24 hour(s)) Hemoglobin and Hematocrit Result Value Ref Range Hgb 9.3 (L) 13.5 - 18.0 g/dL Hct 28.3 (L) 40.0 - 51.0 % Red Blood Cells (PRBC) - Crossmatch Result Value Ref Range Product Code [id number] UNIT # [id number] UNIT ABO O UNIT RH POS CROSSMATCH INTERP Compatible Unit Status Crossmatched Blood Product ABORh OPOS Blood Product Expiration Date and Time Product Blood Type Barcode 5100 Product Code [id number] UNIT # [id number] UNIT ABO O UNIT RH POS CROSSMATCH INTERP Compatible Unit Status Transfused Blood Product ABOR OPOS Blood Product Expiration Date and Time Product Blood Type Barcode 5100 Red Blood Cells (PRBC) - Crossmatch Result Value Ref Range Product Code W2932X77 UNIT # [id number] UNIT ABO O UNIT RH NEG CROSSMATCH INTERP Compatible Unit Status Transfused Blood Product Dominic LUQUE Blood Product Expiration Date and Time [id number] Product Blood Type Barcode 9500 Basic Metabolic Panel Result Value Ref Range NA 138 136 - 149 mmol/L K 3.9 3.5 - 5.1 mmol/L CL 107 98 - 109 mmol/L CO2 24 24 - 31 mmol/L ANION GAP 7 3 - 16 mmol/L GLUCOSE 95 70 - 109 mg/dL BUN 17 7 - 18 mg/dL Creatinine, Serum/Plasma 0.98 0.60 - 1.30 mg/dL eGFR if not >60 >=60 mL/min/1.73m2 CALCIUM 8.2 (L) 8.3 - 10.5 mg/dL BUN/CREA 17.3 Protime INR Result Value Ref Range PROTIME 35.1 (H) 11.3 - 13.9 seconds INR 3.36 (H) 0.90 - 1.10 CBC with Differential Result Value Ref Range WBC 7.5 4.0 - 11.0 K/uL RBC 3.10 (L) 4.30 - 5.70 M/uL Hgb 9.3 (L) 13.5 - 18.0 g/dL Hct 27.3 (L) 40.0 - 51.0 % MCV 88.1 83.0 - 101.0 fL MCH 29.9 28.0 - 35.0 pg MCHC 34.0 32.0 - 36.0 g/dL RDW-CV 16.7 (H) <15.0 % Platelet Count 232 140 - 440 K/uL MPV 8.2 fL % Neutrophils 76.1 45.0 - 82.0 % % Lymphocytes 4.8 (L) 20.0 - 45.0 % % Monocytes 10.9 4.0 - 12.0 % % Eosinophils 7.1 (H) 0.0 - 5.0 % % Basophils 1.1 (H) 0.0 - 1.0 % Absolute Neutrophils 5.70 1.80 - 8.50 K/uL Absolute Lymphocytes 0.40 (L) 0.60 - 3.20 K/uL Absolute Monocytes 0.80 0.00 - 1.00 K/uL Absolute Eosinophils 0.50 (H) 0.00 - 0.40 K/uL Absolute Basophils 0.10 0.00 - 0.10 K/uL PRODUCT: Plasma Result Value Ref Range Product Code [id number] UNIT # [id number] UNIT ABO O UNIT RH POS Unit Status Issued Blood Product ABORh OPOS Blood Product Expiration Date and Time Product Blood Type Barcode 5100 Product Code V4520Z19 UNIT # [id number] UNIT ABO O UNIT RH POS Unit Status Issued Blood Product ABORh OPOS Blood Product Expiration Date and Time Product Blood Type Barcode 5100 Xr Chest Ap Portable Result Date: 12/25/2016 PORTABLE CHEST X-RAY: 12/25/2016 2:01 PM CLINICAL HISTORY:PICC line repositioned, check place ment COMPARISON: 12/22/2016 FINDINGS:Right-sided PICC line has been withdrawn, so that the tip is now just into the upper superior vena cava. Stable mild cardiomegaly. Stable mildly prom inent pulmonary vasculature. Aortic and mediastinal contours are stable. Descending aorta is tortuous with intimal calcification. Low volume inspiration exam. Hazy density at the right lung base may relate to the low volume, or represent some degree of atelectasis or infiltra te. No other areas of abnormal lung density. No effusion. IMPRESSION - 1. Interval withdrawa l of right PICC line, to the level of the upper superior vena cava. 2. Hazy density at the r ight lung base which may relate to low volume inspiration or represents some degree of atele ctasis or infiltrate. Dictated and Signed by: Miguel Ventura MD Electronically signed: 2016 2:42 PM Xr Abdomen Portable Result Date: 12/24/2016 CLINICAL INFORMATION: Abdominal Pain. COMPARISON: None available. FINDINGS: Frontal views o f the abdomen. Bowel gas pattern: Multiple air distended loops of colon with small amount of air in the rectum. Small amount of scattered air noted within the small bowel. Abnormal christopher cifications: Prominent vascular calcifications. Bones: Sigmoid curvature of the visualized spine with multilevel degenerative disc disease and multilevel wedge compression deformities at T12, L1, and L2. Intramedullary nail and screw fixation of each femur. Other: Lung base s appear clear. IMPRESSION - Multiple air distended loops of colon. No evidence of small bow el obstruction. Anterior wedge compression deformities at T12, L1, and L2, of unknown chroni city. Dictated and Signed by: Moshe Ross MD Electronically signed: 12/24/2016 9:49 AM Current Facility-Administered Medications: acetaminophen 650 mg Oral Q4H PRN albuterol-ipratropium 3 mL Nebulization RT Q4H PRN alteplase 2 mg Intercatheter PRN amiodarone 200 mg Oral Daily atorvaSTATin 20 mg Oral Nightly azithromycin 500 mg Intravenous Daily cefTRIAXone 1 g Intravenous Daily docusate sodium 100 mg Oral BID PRN fentaNYL (PF) 25-50 mcg Intravenous Q1H PRN lactated ringers Intravenous Continuous norepinephrine 1-30 mcg/min Intravenous Titrated oxyCODONE 5-10 mg Oral Q4H PRN warfarin per pharmacy Other Pharmacy Consult polyethylene glycol 17 g Oral Daily PRN senna 8.6 mg Oral BID PRN CURRENT MEDICATIONS: Current Facility-Administered Medications Medication Dose Route Frequency Provider Last Rate Last Dose acetaminophen (TYLENOL) tablet 650 mg 650 mg Oral Q4H PRN Gamal Serrano MD 650 mg at 12/24/16 0750 albuterol-ipratropium (DUONEB) 2.5-0.5 mg/3 mL nebulizer solution 3 mL 3 mL Nebulizati on RT Q4H PRN Gamal Serrano MD alteplase (CATHFLO ACTIVASE) injection 2 mg 2 mg Intercatheter PRN Angel Hendrix MD 2 mg at 12/25/16 1303 amiodarone (PACERONE) tablet 200 mg 200 mg Oral Daily Gamal Serrano MD 200 mg at 0 12/25/16 0920 atorvaSTATin (LIPITOR) tablet 20 mg 20 mg Oral Nightly Gamal Serrano MD 20 mg at 0 12/24/16 2025 azithromycin (ZITHROMAX) 500 mg in sodium chloride 0.9% 250 mL IVPB 500 mg Intravenous Daily Angel Hendrix MD 255 mL/hr at 12/25/16 0921 500 mg at 12/25/16 0921 cefTRIAXone (ROCEPHIN) 1 g in sodium chloride 0.9% 50 mL IVPB 1 g Intravenous Daily Vr nadine Hendrix MD 100 mL/hr at 12/25/16 0921 1 g at 12/25/16 0921 docusate sodium (COLACE) capsule 100 mg 100 mg Oral BID PRN Gamal Serrano MD 100 m g at 12/24/16 0750 fentaNYL (PF) injection 25-50 mcg 25-50 mcg Intravenous Q1H PRN Gamal Serrano MD 2 5 mcg at 12/24/16 0022 lactated ringers (LR) infusion Intravenous Continuous Valente Munoz MD norepinephrine in NS (LEVOPHED) 16 mcg/mL infusion 1-30 mcg/min Intravenous Titrated V debi Hendrix MD Stopped at 12/24/16 1111 oxyCODONE (ROXICODONE) tablet 5-10 mg 5-10 mg Oral Q4H PRN Gamal Serrano MD 10 mg at 12/25/16 0959 pharmacy to dose warfarin Other Pharmacy Consult Lambert Mancuso MD polyethylene glycol (MIRALAX) powder 17 g 17 g Oral Daily PRN Gamal Serrano MD 17 g at 12/24/16 0750 senna (SENOKOT) tablet 8.6 mg 8.6 mg Oral BID PRN Gamal Serrano MD 8.6 mg at 12/23 2331 ASSESSMENT and PLAN: Active Hospital Problems Diagnosis Anticoagulant long-term use Atrial flutter Femur fracture, left *Femur fracture, right Resolved Hospital Problems Diagnosis Date Noted Date Resolved No resolved problems to display. #1 Status post hemorrhagic shock: -Status post volume resuscitation with IV fluids and PRBC -Blood pressure stable now -Hemoglobin stable continue monitor -Reverse Coumadin induced cardiopathy as indicated below #2 elevated INR: -Secondary to Coumadin administration -Hold Coumadin -Status post 1 dose of vitamin K (12/18) -FFP ordered by Dr. Hendrix -Repeat INR later today -If no significant improvement will order IV vitamin K #3 Volume overload with possible underlying diastolic heart failure: -Intermittent IV Lasix to achieve euvolemic state -Strict I's and O's -Echocardiogram ordered (p) #4 Acute hypoxemic respiratory failure: -With evidence of volume overload and bilateral distribution on chest x-ray and negative Pr o calcitonin This appears to be likely to underlying congestive heart failure rather than pneumonia -Continue IV Lasix as above -Echo pending -Currently requiring 2 L via nasal cannula #5 A. fib RVR: -Continue amiodarone -Controlled likely to improve with IV diuresis -Continue monitor on telemetry DVT Prophylaxis SCD's while in bed Code Status DNR/DNI. Total time of approximately 35 minutes was spent with the patient and/or patient's family, and/or on the patient's floor/unit, of which more than 50% was spent counseling and/or coord ination the patient's care as outlined above. Radha Hoyt 12/25/2016 16:56 [facility] Lambert Smith MD - 0 12/25/2016 10:32 AM PDT Subjective: Pain well controlled at rest; pain with movement. Objective: Patient Vitals for the past 24 hrs: BP Temp Temp src Pulse Resp SpO2 Weight 12/25/16 0800 114/70 37.3 C (99.1 F) Bladder 126 18 94 % - 12/25/16 0754 - - - 124 21 97 % - 12/25/16 0600 98/62 37.3 C (99.1 F) - 130 20 95 % - 12/25/16 0500 114/67 37.4 C (99.3 F) - 121 18 94 % - 12/25/16 0434 - - - 111 30 95 % - 12/25/16 0404 - - - - - - 90.4 kg (199 lb 4.7 oz) 12/25/16 0400 113/79 37.4 C (99.3 F) - 102 20 93 % - 12/25/16 0300 112/75 37.4 C (99.3 F) - 113 19 96 % - 12/25/16 0200 103/68 37.4 C (99.3 F) - 110 19 95 % - 12/25/16 0100 101/80 37.5 C (99.5 F) - 111 18 94 % - 12/25/16 0030 118/71 37.5 C (99.5 F) - 115 23 95 % - 12/25/16 0027 - - - 117 18 95 % - 12/25/16 0000 90/75 37.5 C (99.5 F) - 110 23 96 % - 12/24/16 2330 95/71 37.5 C (99.5 F) - 111 20 97 % - 12/24/16 2200 99/84 37.4 C (99.3 F) - 122 25 96 % - 12/24/16 2100 105/65 37.3 C (99.1 F) - 114 19 95 % - 12/24/16 1951 - - - 111 18 97 % - 12/24/16 1526 115/75 36.9 C (98.4 F) - 115 16 97 % - 12/24/16 1519 - - - 116 18 97 % - 12/24/16 1450 101/52 - Bladder - - - - 12/24/16 1315 - - Bladder - - - - 12/24/16 1237 92/58 - Bladder - - - - 12/24/16 1220 97/70 37 C (98.6 F) Bladder 130 18 - - 12/24/16 1154 - - Bladder - - - - 12/24/16 1124 - - - 113 18 96 % - Recent Results (from the past 24 hour(s)) Hemoglobin and Hematocrit Result Value Ref Range Hgb 9.3 (L) 13.5 - 18.0 g/dL Hct 28.3 (L) 40.0 - 51.0 % Red Blood Cells (PRBC) - Crossmatch Result Value Ref Range Product Code I1110U07 UNIT # [id number] UNIT ABO O UNIT RH POS CROSSMATCH INTERP Compatible Unit Status Crossmatched Blood Product [facility] Blood Product Expiration Date and Time Product Blood Type Barcode 5100 Product Code P5200W21 UNIT # [id number] UNIT ABO O UNIT RH POS CROSSMATCH INTERP Compatible Unit Status Transfused Blood Product [facility] Blood Product Expiration Date and Time Product Blood Type Barcode 5100 Red Blood Cells (PRBC) - Crossmatch Result Value Ref Range Product Code E0395L58 UNIT # [id number] UNIT ABO O UNIT RH NEG CROSSMATCH INTERP Compatible Unit Status Transfused Blood Product [facility] Blood Product Expiration Date and Time Product Blood Type Barcode 9500 Basic Metabolic Panel Result Value Ref Range NA 138 136 - 149 mmol/L K 3.9 3.5 - 5.1 mmol/L CL 107 98 - 109 mmol/L CO2 24 24 - 31 mmol/L ANION GAP 7 3 - 16 mmol/L GLUCOSE 95 70 - 109 mg/dL BUN 17 7 - 18 mg/dL Creatinine, Serum/Plasma 0.98 0.60 - 1.30 mg/dL eGFR if not >60 >=60 mL/min/1.73m2 CALCIUM 8.2 (L) 8.3 - 10.5 mg/dL BUN/CREA 17.3 Protime INR Result Value Ref Range PROTIME 35.1 (H) 11.3 - 13.9 seconds INR 3.36 (H) 0.90 - 1.10 CBC with Differential Result Value Ref Range WBC 7.5 4.0 - 11.0 K/uL RBC 3.10 (L) 4.30 - 5.70 M/uL Hgb 9.3 (L) 13.5 - 18.0 g/dL Hct 27.3 (L) 40.0 - 51.0 % MCV 88.1 83.0 - 101.0 fL MCH 29.9 28.0 - 35.0 pg MCHC 34.0 32.0 - 36.0 g/dL RDW-CV 16.7 (H) <15.0 % Platelet Count 232 140 - 440 K/uL MPV 8.2 fL % Neutrophils 76.1 45.0 - 82.0 % % Lymphocytes 4.8 (L) 20.0 - 45.0 % % Monocytes 10.9 4.0 - 12.0 % % Eosinophils 7.1 (H) 0.0 - 5.0 % % Basophils 1.1 (H) 0.0 - 1.0 % Absolute Neutrophils 5.70 1.80 - 8.50 K/uL Absolute Lymphocytes 0.40 (L) 0.60 - 3.20 K/uL Absolute Monocytes 0.80 0.00 - 1.00 K/uL Absolute Eosinophils 0.50 (H) 0.00 - 0.40 K/uL Absolute Basophils 0.10 0.00 - 0.10 K/uL Bilateral lower extremities: Thighs are soft bilaterally. Dressings: slight serosanguinous drainage in dressing, no active drainage Sensation: intact all toes Motor: wiggles toes Circulation: capillary refill < 2 seconds bilaterally Assessment: POD #6 S/p IM fixation of bilateral femur fractures Doing better today with regards to BP Plan: Mobilize as able. DVT prophylaxis with warfarin. Lambert Mancuso MD DATE/TIME: 12/25/2016 10:32 Joao Gaviria, PharmD - 12/25/2016 8:35 AM PDT WARFARIN PER PHARMACY PROTOCOL: CURRENTLY HOLDING WARFARIN (High INR) Subjective/Objective: Dora Thomason is a 86 y.o. male admitted on 12/18/2016 for orthopedic surgery secondar y to femoral fracture. 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 Patient is receiving warfarin for thromboprophyla xis postop and also for atrial flutter. Surgery date: 12/19/[address] Mancuso Goal INR: 2-3 Enoxaparin bridge: disch Inr>2 none Drug Interactions:Amiodarone Sensitizers:Age Recent Labs Lab 12/25/16 0355 12/24/16202912/24/16 0351 12/23/16 0435 12/23/16 0434 CREA 0.98 -- 1.01 -- -- 1.25 HGB 9.3* 9.3* 7.2* < > 7.7* -- HCT 27.3* 28.3* 21.5* < > 23.1* -- PLT 232 -- 209 -- 195 -- INR 3.36* -- 2.28* -- 2.18* -- < > = values in this interval not displayed. Estimated Creatinine Clearance: 60 mL/min (based on Cr of 1.01). Date 12/19 12/20 612/22 612/25 Hgb 10.9 8.7 9.1 7.8 7.7 7.2 9.3 Hct 33.4 26.5 26.7 23.4 23.1 21.5 27.3 Platelets 187 158 144 160 195 209 232 INR 1.78 1.67 1.82 2.07 2.18 2.28 3.36 Warfarin Dose 3 mg 3 mg 4 mg 3 mg - - HOLD Assessment: Patient being initiated/continued on warfarin for thromboprophylaxis s/p bilateral femur fx repair Pt admitted with a therapeutic INR, received 5 mg of Vit K in [place] and given FFP to help reverse anticoagulation in preparation for fx repair Previously, therapeutic on home regimen of 3 mg daily for aflutter/past cva Most recent ECG shows atrial flutter on 12/18 INR is supra-therapeutic today @ 3.36. Unclear as to why INR is increasing. Currently holding warfarin for ongoing low h/h due to blood loss anemia from surgery and now in addition to high INR. Plan: HOLD warfarin INR, Hgb, Hct in am. If INR remains stable, may change it to MWF. Warfarin education received No; ACCOUNT DEVELOPMENT REPRESENTATIVE Will monitor daily Warfarin Dosing Nomogram Warfarin Dosing Expectations Per P&T-approved Electronically signed by: Joao Holcomb PharmD 12/25/2016 8:19 ADDENDUM: Dr. Hendrix has ordered 2 units of FFP. He would prefer that the patient be on the lower end of the 2-3 range for INR. Elsa Rodriguez PA-C - 12/24/2016 11:27 AM PDT Subjective: Pain well controlled. Objective: Patient Vitals for the past 24 hrs: BP Temp Temp src Pulse Resp SpO2 Weight 12/24/16 1124 - - - 113 18 96 % - 12/24/16 1014 - - Bladder - - - - 12/24/16 1000 (!) 79/57 37.4 C (99.3 F) Bladder 119 20 94 % - 12/24/16 0945 92/68 37.4 C (99.3 F) Bladder 124 20 - - 12/24/16 0738 - - - 116 15 96 % - 12/24/16 0620 - 37.4 C (99.3 F) - 123 18 95 % - 12/24/16 0600 119/80 37.4 C (99.3 F) - 125 17 95 % - 12/24/16 0545 125/61 37.3 C (99.1 F) - 127 16 94 % - 12/24/16 0530 115/79 37.3 C (99.1 F) - 113 17 96 % - 12/24/16 0500 106/72 37.2 C (99 F) - 124 17 96 % - 12/24/16 0445 112/68 37.3 C (99.1 F) - 112 18 95 % - 12/24/16 0423 - - - 124 18 96 % - 12/24/16 0415 110/65 37.3 C (99.1 F) - 120 16 95 % - 12/24/16 0400 105/67 37.4 C (99.3 F) - 115 17 96 % - 12/24/16 0345 116/63 37.3 C (99.1 F) - 113 18 95 % - 12/24/16 0330 112/73 37.4 C (99.3 F) - 118 19 94 % - 12/24/16 0315 122/70 37.4 C (99.3 F) - 123 19 97 % - 12/24/16 0300 - 37.4 C (99.3 F) - 120 19 96 % - 12/24/16 0255 116/80 37.4 C (99.3 F) - 121 19 96 % - 12/24/16 0245 107/70 37.5 C (99.5 F) - 110 18 94 % - 12/24/16 0230 109/78 37.5 C (99.5 F) - 114 16 95 % - 12/24/16 0215 105/73 37.5 C (99.5 F) - 122 20 93 % - 12/24/16 0200 120/62 37.6 C (99.7 F) - 129 22 92 % - 12/24/16 0155 - 37.6 C (99.7 F) - 116 14 94 % - 12/24/16 0145 115/70 37.6 C (99.7 F) - 115 18 94 % - 12/24/16 0130 111/69 37.7 C (99.9 F) - 112 17 92 % - 12/24/16 0115 119/74 37.7 C (99.9 F) - 122 23 94 % - 12/24/16 0100 107/71 37.7 C (99.9 F) - 112 21 93 % - 12/24/16 0048 - - - 115 - 96 % - 12/24/16 0030 98/69 37.7 C (99.9 F) - 116 21 92 % - 12/24/16 0015 - - - - - - 90 kg (198 lb 6.6 oz) 12/24/16 0000 102/74 37.6 C (99.7 F) - 117 15 96 % - 12/23/16 2315 113/64 37.7 C (99.9 F) - 117 19 95 % - 12/23/16 2300 111/72 37.7 C (99.9 F) - 115 18 94 % - 12/23/16 2245 101/67 37.8 C (100 F) - 111 17 97 % - 12/23/16 2230 111/71 37.8 C (100 F) - 112 17 96 % - 12/23/16 2200 94/64 37.8 C (100 F) - 120 18 94 % - 12/23/16 2100 110/68 37.5 C (99.5 F) - 114 26 93 % - 12/23/162047 - - - 106 19 94 % - 12/23/16 2030 90/60 37.9 C (100.2 F) - 106 18 93 % - 12/23/162009 96/57 37.9 C (100.2 F) - 118 21 93 % - 12/23/16 1900 90/52 37.9 C (100.2 F) - 101 18 94 % - 12/23/16 1845 94/69 (!) 38 C (100.4 F) - 107 16 93 % - 12/23/16 1830 98/60 (!) 38 C (100.4 F) - 114 20 90 % - 12/23/16 1815 (!) 78/64 (!) 38 C (100.4 F) - 116 25 91 % - 12/23/16 1800 (!) 73/58 37.9 C (100.2 F) - 118 20 92 % - 12/23/16 1745 93/59 37.9 C (100.2 F) - 121 25 92 % - 12/23/16 1730 97/67 37.9 C (100.2 F) - 119 22 (!) 84 % - 12/23/16 172 - - - 114 21 93 % - 12/23/16 1715 104/85 37.9 C (100.2 F) - 124 20 92 % - 12/23/16 1700 101/86 37.9 C (100.2 F) - 122 23 90 % - 12/23/16 1645 (!) 85/63 37.9 C (100.2 F) - 107 17 96 % - 12/23/16 1630 99/54 37.9 C (100.2 F) - 110 18 95 % - 12/23/16 1615 (!) 81/62 37.9 C (100.2 F) - 117 18 93 % - 12/23/16 1600 112/62 37.9 C (100.2 F) - 114 18 96 % - 12/23/16 1545 103/61 37.9 C (100.2 F) - 108 22 96 % - 12/23/16 1530 106/53 37.9 C (100.2 F) - 104 18 96 % - 12/23/16 1515 105/74 37.9 C (100.2 F) - 112 17 95 % - 12/23/16 1500 109/71 37.9 C (100.2 F) - 108 18 93 % - 12/23/16 1445 95/72 37.9 C (100.2 F) - 115 19 96 % - 12/23/16 1430 103/67 37.9 C (100.2 F) - 112 19 96 % - 12/23/16 1415 108/71 37.9 C (100.2 F) - 112 18 94 % - 12/23/16 1400 112/68 37.9 C (100.2 F) - 118 24 95 % - 12/23/16 1345 103/67 37.8 C (100 F) - 107 20 95 % - 12/23/16 1330 95/59 37.9 C (100.2 F) - 104 17 95 % - 12/23/16 1315 91/65 37.7 C (99.9 F) - 115 19 93 % - 12/23/16 1300 (!) 88/57 37.8 C (100 F) - 111 19 92 % - 12/23/16 1245 100/69 37.8 C (100 F) - 106 20 93 % - 12/23/16 1230 (!) 74/63 37.9 C (100.2 F) - 121 20 93 % - 12/23/16 1215 (!) 87/64 37.8 C (100 F) - 113 21 93 % - 12/23/16 1200 (!) 78/40 37.8 C (100 F) - 128 22 92 % - 12/23/16 1145 (!) 82/50 37.7 C (99.9 F) - 112 25 94 % - 12/23/16 1130 100/60 37.7 C (99.9 F) - 124 20 93 % - Recent Results (from the past 24 hour(s)) Basic Metabolic Panel Result Value Ref Range NA 137 136 - 149 mmol/L K 3.4 (L) 3.5 - 5.1 mmol/L CL 107 98 - 109 mmol/L CO2 21 (L) 24 - 31 mmol/L ANION GAP 9 3 - 16 mmol/L GLUCOSE 119 (H) 70 - 109 mg/dL BUN 19 (H) 7 - 18 mg/dL Creatinine, Serum/Plasma 1.01 0.60 - 1.30 mg/dL eGFR if not >60 >=60 mL/min/1.73m2 CALCIUM 8.2 (L) 8.3 - 10.5 mg/dL BUN/CREA 18.8 Protime INR Result Value Ref Range PROTIME 25.8 (H) 11.3 - 13.9 seconds INR 2.28 (H) 0.90 - 1.10 CBC with Differential Result Value Ref Range WBC 7.4 4.0 - 11.0 K/uL RBC 2.36 (L) 4.30 - 5.70 M/uL Hgb 7.2 (LL) 13.5 - 18.0 g/dL Hct 21.5 (L) 40.0 - 51.0 % MCV 91.4 83.0 - 101.0 fL MCH 30.7 28.0 - 35.0 pg MCHC 33.6 32.0 - 36.0 g/dL RDW-CV 15.8 (H) <15.0 % Platelet Count 209 140 - 440 K/uL MPV 7.5 fL % Neutrophils 81.2 45.0 - 82.0 % % Lymphocytes 3.5 (L) 20.0 - 45.0 % % Monocytes 10.7 4.0 - 12.0 % % Eosinophils 4.3 0.0 - 5.0 % % Basophils 0.3 0.0 - 1.0 % Absolute Neutrophils 6.00 1.80 - 8.50 K/uL Absolute Lymphocytes 0.30 (L) 0.60 - 3.20 K/uL Absolute Monocytes 0.80 0.00 - 1.00 K/uL Absolute Eosinophils 0.30 0.00 - 0.40 K/uL Absolute Basophils 0.00 0.00 - 0.10 K/uL Type and Screen Result Value Ref Range ABO O Rh Type Positive Antibody Screen Negative Urinalysis Result Value Ref Range COLOR Yellow Light Yellow, Yellow, Straw CLARITY Cloudy (A) Clear PH UA 5.0 5.0 - 8.0 Specific [place] 1.016 1.001 - 1.030 PROTEIN UA 30 mg/dL (A) Negative BLOOD UA Small (A) Negative GLUCOSE UA Negative Negative KETONES UA Negative Negative BILIRUBIN UA Negative Negative NITRITE UA Negative Negative LEUKOCYTES ESTERASE UA Negative Negative UROBILINOGEN UA Negative 0.2 mg/dL, 1.0 mg/dL, Negative Red Blood Cells (PRBC) - Crossmatch Result Value Ref Range Product Code I7068D25 UNIT # [id number] UNIT ABO O UNIT RH POS CROSSMATCH INTERP Compatible Unit Status Crossmatched Blood Product [facility] Blood Product Expiration Date and Time Product Blood Type Barcode 5100 Product Code V3536G67 UNIT # [id number] UNIT ABO O UNIT RH POS CROSSMATCH INTERP Compatible Unit Status Issued Blood Product [facility] Blood Product Expiration Date and Time Product Blood Type Barcode 5100 Red Blood Cells (PRBC) - Crossmatch Result Value Ref Range Product Code Y1268X57 UNIT # [id number] UNIT ABO O UNIT RH NEG CROSSMATCH INTERP Compatible Unit Status Crossmatched Blood Product [facility] Blood Product Expiration Date and Time Product Blood Type Barcode 9500 Bilateral Lower Extremity: Dressing: slight serosanguinous drainage in dressing, no active drainage Sensation: intact all toes Motor: wiggles toes Circulation: capillary refill < 2 seconds bilateral toes, thigh compartments soft Assessment: POD # 5 s/p IM fixation of bilateral femur fractures. Hypotensive requiring pressors. Acute blood loss anemia requiring transfusion. Plan: Mobilize as medical condition allows, continue therapies as able. Warfarin for DVT prophylaxis. Continue to appreciate medical management per hospitalist team. Elsa Arzola PA-C DATE/TIME: 12/24/2016 11:27 Sury Delgadillo RN - 12/24/2016 10:12 AM PDTThis note also relates to the following rows which could not be included: BP - Cannot attach notes to unvalidated device data Temp - Cannot attach notes to unvalidated device data Pulse - Cannot attach notes to unvalidated device data Resp - Cannot attach notes to unvalidated device data SpO2 - Cannot attach notes to unvalidated device data Action - Cannot attach notes to extension rows Rate - Cannot attach notes to extension rows Changed rate to 100 per Patels orders infuse over 3 hours Angel Gallagher MD - 12/24/2016 9:52 AM PDTFor matting of this note might be different from the original. [facility] HOSPITALIST PROGRESS NOTE Patient: Dora Thomason : 1930: Age: 86 y.o. MedRec: [id number] PCP: Carlos Alberto Galeas MD Admission date: 12/18/2016 Hospital day # : 6 Physician author: Angel Hendrix MD Today: 12/24/2016 SUBJECTIVE: Seen this AM , remains on Levophed This AM noted drop in his Hb VITALS: Temp: 37.4 C (99.3 F), Pulse: 116, Resp: 15, BP: 119/80, SpO2 96 % on nasal cannula at flow rate 2L/min Temp Min: 37.2 C (99 F) Max: 38 C (100.4 F) Weight: 78 kg (172 lb) I/O last 3 completed shifts: In: 3199 [P.O.:1550; I.V.:1349; IV Piggyback:300] Out: 1420 [Urine:1420] I/O this shift: In: 650 [P.O.:250; I.V.:100; IV Piggyback:300] Out: - PHYSICAL EXAM: General: AAO x3, appears weak, on NC Cardiovascular: S1, s2, no murmurs Respiratory: Good air entry, no wheezing or rhonchi Abdomen: Soft, bs + Extremities: Warm, no edema, Right foot psot op dressing in place , right arm PICC line Skin: Echymotic lesion bilateral hands /arms Neurological: No focal deficits DIAGNOSTIC STUDIES: Available data and images were reviewed personally. Significant results and findings are a ddressed here or in the Assessment and Plan. Recent Results (from the past 24 hour(s)) Hemoglobin and Hematocrit Result Value Ref Range Hgb 7.7 (L) 13.5 - 18.0 g/dL Hct 23.3 (L) 40.0 - 51.0 % Basic Metabolic Panel Result Value Ref Range NA 137 136 - 149 mmol/L K 3.4 (L) 3.5 - 5.1 mmol/L CL 107 98 - 109 mmol/L CO2 21 (L) 24 - 31 mmol/L ANION GAP 9 3 - 16 mmol/L GLUCOSE 119 (H) 70 - 109 mg/dL BUN 19 (H) 7 - 18 mg/dL Creatinine, Serum/Plasma 1.01 0.60 - 1.30 mg/dL eGFR if not >60 >=60 mL/min/1.73m2 CALCIUM 8.2 (L) 8.3 - 10.5 mg/dL BUN/CREA 18.8 Protime INR Result Value Ref Range PROTIME 25.8 (H) 11.3 - 13.9 seconds INR 2.28 (H) 0.90 - 1.10 CBC with Differential Result Value Ref Range WBC 7.4 4.0 - 11.0 K/uL RBC 2.36 (L) 4.30 - 5.70 M/uL Hgb 7.2 (LL) 13.5 - 18.0 g/dL Hct 21.5 (L) 40.0 - 51.0 % MCV 91.4 83.0 - 101.0 fL MCH 30.7 28.0 - 35.0 pg MCHC 33.6 32.0 - 36.0 g/dL RDW-CV 15.8 (H) <15.0 % Platelet Count 209 140 - 440 K/uL MPV 7.5 fL % Neutrophils 81.2 45.0 - 82.0 % % Lymphocytes 3.5 (L) 20.0 - 45.0 % % Monocytes 10.7 4.0 - 12.0 % % Eosinophils 4.3 0.0 - 5.0 % % Basophils 0.3 0.0 - 1.0 % Absolute Neutrophils 6.00 1.80 - 8.50 K/uL Absolute Lymphocytes 0.30 (L) 0.60 - 3.20 K/uL Absolute Monocytes 0.80 0.00 - 1.00 K/uL Absolute Eosinophils 0.30 0.00 - 0.40 K/uL Absolute Basophils 0.00 0.00 - 0.10 K/uL Type and Screen Result Value Ref Range ABO O Rh Type Positive Antibody Screen Negative Red Blood Cells (PRBC) - Crossmatch Result Value Ref Range Product Code B7544F64 UNIT # [id number] UNIT ABO O UNIT RH POS CROSSMATCH INTERP Compatible Unit Status Crossmatched Blood Product [facility] Blood Product Expiration Date and Time Product Blood Type Barcode 5100 Product Code C6462K90 UNIT # [id number] UNIT ABO O UNIT RH POS CROSSMATCH INTERP Compatible Unit Status Issued Blood Product [facility] Blood Product Expiration Date and Time Product Blood Type Barcode 5100 Xr Chest Ap Portable Result Date: 12/22/2016 SINGLE AP CHEST 12/22/2016 12:59 PM CLINICAL HISTORY: shortness of breath COMPARISON: Chest r adiograph from the previous day and additional recent radiographs FINDINGS: The right approa ch PICC again passes to the region of the cavoatrial junction. There is similar prominence of the cardiac silhouette and pulmonary vasculature with calcification and tortuosity of the thoracic aorta. There is similar hazy reticular opacity in the mid to lower lungs. No pne umothorax or pleural effusion is evident. Generalized osteopenia is suggested. IMPRESSION - 1. STABLE RADIOGRAPHIC APPEARANCE OF THE CHEST DEMONSTRATING PROMINENCE OF THE CARDIAC SI LHOUETTE AND PULMONARY VASCULATURE AND NON-SPECIFIC HAZY RETICULAR OPACITY IN THE MID TO LOW ER LUNGS. Dictated and Signed by: Daniel Jordan MD Electronically signed: 12/22/2016 2:43 PM Us Extremity Nonvascular Limited Right Result Date: 12/22/2016 RIGHT THIGH ULTRASOUND 12/22/2016 12:09 PM CLINICAL HISTORY: Right Thigh Ultrasound to see fl uid / blood collection COMPARISON: None available FINDINGS: Sonographic interrogation of the right thigh identifies no fluid collection, mass or other tissue distortion. IMPRESSION - 1 . NO SONOGRAPHIC ABNORMALITY WITHIN THE RIGHT THIGH. Dictated and Signed by: Daniel Jordan MD Electronically signed: 12/22/2016 2:44 PM Current Facility-Administered Medications: acetaminophen 650 mg Oral Q4H PRN albuterol-ipratropium 3 mL Nebulization RT Q4H amiodarone 200 mg Oral Daily atorvaSTATin 20 mg Oral Nightly azithromycin 500 mg Intravenous Daily cefTRIAXone 1 g Intravenous Daily docusate sodium 100 mg Oral BID PRN fentaNYL (PF) 25-50 mcg Intravenous Q1H PRN lactated ringers Intravenous Continuous norepinephrine 1-30 mcg/min Intravenous Titrated oxyCODONE 5-10 mg Oral Q4H PRN pharmacy to dose warfarin Other Pharmacy Consult polyethylene glycol 17 g Oral Daily PRN senna 8.6 mg Oral BID PRN ASSESSMENT and PLAN: Active Hospital Problems Diagnosis Anticoagulant long-term use Atrial flutter Femur fracture, left *Femur fracture, right Resolved Hospital Problems Diagnosis Date Noted Date Resolved No resolved problems to display. This is pleasant 86 y/o M with PMHx. Of HTN, A. Fib on AC with Bilateral Femur fractures a fter mechanical fall. ID -Septic shock 2/2 to Multi-Lobar Pneumonia. Remains on Levophed. Hemodynamics unstable. -H is Blood cultures, UA, Lactat, and Procalcitionin are negative. No Leukocytosis. -CXR shows Right Basilar Pneumonia., on IV Rocephin / Azithro ( day 5) -C/w Statin for HLD Cardiovascular -Est. A. Flutter -On Amiodarone ( INR is sup therapeutic 2.28). Hold AC given persistent drop in H&H. Ortho -bilateral fractures s/p repair POD 4 -Pain control -Ortho follow up -Incentive spirometry Renal -Hypokalemia-3.4 -replete K with PO 40 of K Hematology -Acute blood loss anemia 2/2 to Surgery. I spoke with Dr. Mancuso from ortho standpoint- unl ikely from surgery. Give 2 units PRBC this AM. Hb is 7.2. -Continue to hold Warfarin -His right thigh US is normal ( no collection of blood) NO CODE Continue ICU monitoring Prognosis Guarded Total time of approximately 30 minutes was spent with the patient and/or patient's family, and/or on the patient's floor/unit, of which more than 50% was spent counseling and/or coord ination the patient's care as outlined above. Angel Hendrix 12/24/2016 9:52 [facility] Ora Medina PharmD - 12/24/2016 6:57 AM PDT WARFARIN PER PHARMACY PROTOCOL: Subjective/Objective: Dora Thomason is a 86 y.o. male admitted on 12/18/2016 for orthopedic surgery secondar y to femoral fracture. 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 Patient is receiving warfarin for thromboprophyla xis postop and also for atrial flutter. Surgery date: 12/19/2016 [x]Fx []THR []TKR Dr. Mancuso Goal INR: 2-3 Enoxaparin bridge: []disch [x]Inr>2 []none Drug Interactions:Amiodarone Sensitizers:Age Recent Labs Lab 12/24/16 0351 12/23/16 1003 12/23/16 0435 12/23/16 0434 12/22/16201312/22/16 0341 12/22/16 0340 HGB 7.2* 7.7* 7.7* -- 7.6* -- 7.8* HCT 21.5* 23.3* 23.1* -- 23.1* -- 23.4* PLT 209 -- 195 -- 194 -- 160 CREA 1.01 -- -- 1.25 -- 1.12 -- INR 2.28* -- 2.18* -- -- -- 2.07* Date 12/19 12/20 12/21 12/22 12/23 12/24 Hgb 10.9 8.7 9.1 7.8 7.7 7.2 Hct 33.4 26.5 26.7 23.4 23.1 21.5 Platelets 187 158 144 160 195 209 INR 1.78 1.67 1.82 2.07 2.18 2.28 Warfarin Dose 3 mg 3 mg 4 mg 3 mg None hold Assessment: Patient being initiated/continued on warfarin for thromboprophylaxis s/p bilateral femur fx repair The INR is within the target range of 2-3 since 12/22 Pt admitted with a therapeutic INR, received 5 mg of Vit K in [place] and given FFP to help reverse anticoagulation in preparation for fx repair Was therapeutic on home regimen of 3 mg daily for aflutter/past cva Most recent ECG shows atrial flutter on 12/18 INR is therapeutic today @ 2.28. Lovenox bridging discontinued Plan: Currently warfarin on hold due to blood loss anemia from surgery. INR, Hgb, Hct in am. If INR remains stable, may change it to MWF. Warfarin education received No; ACCOUNT DEVELOPMENT REPRESENTATIVE Will monitor daily Warfarin Dosing Nomogram Warfarin Dosing Expectations Per P&T-approved Ora Aranda RPH 12/24/2016 6:57 Lambert Smith MD - 12/23/2016 6:17 PM PDT Subjective: Pain well controlled. Feeling better Objective: Patient Vitals for the past 24 hrs: BP Temp Temp src Pulse Resp SpO2 Weight 12/23/16 1745 93/59 37.9 C (100.2 F) - 121 25 92 % - 12/23/16 1730 97/67 37.9 C (100.2 F) - 119 22 (!) 84 % - 12/23/16 1722 - - - 114 21 93 % - 12/23/16 1715 104/85 37.9 C (100.2 F) - 124 20 92 % - 12/23/16 1700 101/86 37.9 C (100.2 F) - 122 23 90 % - 12/23/16 1645 (!) 85/63 37.9 C (100.2 F) - 107 17 96 % - 12/23/16 1630 99/54 37.9 C (100.2 F) - 110 18 95 % - 12/23/16 1615 (!) 81/62 37.9 C (100.2 F) - 117 18 93 % - 12/23/16 1600 112/62 37.9 C (100.2 F) - 114 18 96 % - 12/23/16 1545 103/61 37.9 C (100.2 F) - 108 22 96 % - 12/23/16 1530 106/53 37.9 C (100.2 F) - 104 18 96 % - 12/23/16 1515 105/74 37.9 C (100.2 F) - 112 17 95 % - 12/23/16 1500 109/71 37.9 C (100.2 F) - 108 18 93 % - 12/23/16 1445 95/72 37.9 C (100.2 F) - 115 19 96 % - 12/23/16 1430 103/67 37.9 C (100.2 F) - 112 19 96 % - 12/23/16 1415 108/71 37.9 C (100.2 F) - 112 18 94 % - 12/23/16 1400 112/68 37.9 C (100.2 F) - 118 24 95 % - 12/23/16 1345 103/67 37.8 C (100 F) - 107 20 95 % - 12/23/16 1330 95/59 37.9 C (100.2 F) - 104 17 95 % - 12/23/16 1315 91/65 37.7 C (99.9 F) - 115 19 93 % - 12/23/16 1300 (!) 88/57 37.8 C (100 F) - 111 19 92 % - 12/23/16 1245 100/69 37.8 C (100 F) - 106 20 93 % - 12/23/16 1230 (!) 74/63 37.9 C (100.2 F) - 121 20 93 % - 12/23/16 1215 (!) 87/64 37.8 C (100 F) - 113 21 93 % - 12/23/16 1200 (!) 78/40 37.8 C (100 F) - 128 22 92 % - 12/23/16 1145 (!) 82/50 37.7 C (99.9 F) - 112 25 94 % - 12/23/16 1130 100/60 37.7 C (99.9 F) - 124 20 93 % - 12/23/16 1115 92/55 37.7 C (99.9 F) - 107 28 92 % - 12/23/16 1100 94/63 37.7 C (99.9 F) - 119 19 92 % - 12/23/16 1045 93/64 37.7 C (99.9 F) - 118 (!) 31 94 % - 12/23/16 1030 97/67 37.7 C (99.9 F) - 122 23 93 % - 12/23/16 1015 116/70 37.6 C (99.7 F) - 112 22 93 % - 12/23/16 1000 102/71 37.4 C (99.3 F) - 115 18 93 % - 12/23/16 0945 (!) 87/65 37.4 C (99.3 F) - 109 18 95 % - 12/23/16 0930 99/61 37.4 C (99.3 F) - 121 20 93 % - 12/23/16 0915 (!) 81/53 37.6 C (99.7 F) - 111 18 93 % - 12/23/16 0900 (!) 89/54 37.5 C (99.5 F) - 116 17 93 % - 12/23/16 0845 (!) 84/54 37.5 C (99.5 F) - 119 20 93 % - 12/23/16 0830 104/45 37.4 C (99.3 F) - 121 21 92 % - 12/23/16 0815 96/79 37.4 C (99.3 F) - 143 22 91 % - 12/23/16 0800 118/72 37.3 C (99.1 F) - 141 21 91 % - 12/23/16 0745 98/60 37.1 C (98.8 F) - 113 20 (!) 88 % - 12/23/16 0730 91/63 37.3 C (99.1 F) - 114 20 92 % - 12/23/16 0715 95/67 37.3 C (99.1 F) - 115 30 96 % - 12/23/16 0700 91/60 37.3 C (99.1 F) - 124 18 93 % - 12/23/16 0645 99/65 37.3 C (99.1 F) - 120 17 97 % - 12/23/16 0630 (!) 88/58 37.3 C (99.1 F) - 114 16 98 % - 12/23/16 0615 107/63 37.2 C (99 F) - 112 16 97 % - 12/23/16 0600 91/59 37.2 C (99 F) - 121 22 94 % - 12/23/16 0545 101/53 37.2 C (99 F) - 114 16 97 % - 12/23/16 0530 99/68 37.2 C (99 F) - 119 17 95 % - 12/23/16 0515 103/59 37.1 C (98.8 F) - 123 21 97 % - 12/23/16 0500 107/66 37.2 C (99 F) - 120 16 93 % - 12/23/16 0430 90/58 37.4 C (99.3 F) - 132 20 94 % - 12/23/16 0415 108/58 37.4 C (99.3 F) - 114 18 91 % - 12/23/16 0400 101/64 37.4 C (99.3 F) - 117 13 98 % - 12/23/16 0345 111/62 37.5 C (99.5 F) - 120 16 97 % - 12/23/16 0339 - - - - - - 90.6 kg (199 lb 11.8 oz) 12/23/16 0330 125/64 37.5 C (99.5 F) - 110 22 96 % - 12/23/16 0315 97/67 37.4 C (99.3 F) - 120 20 96 % - 12/23/16 0300 116/76 37.4 C (99.3 F) - 123 20 96 % - 12/23/16 0245 99/65 37.4 C (99.3 F) - 115 17 93 % - 12/23/16 0230 (!) 89/73 37.4 C (99.3 F) - 114 18 97 % - 12/23/16 0215 105/67 37.4 C (99.3 F) - 117 16 92 % - 12/23/16 0200 92/59 37.4 C (99.3 F) - 122 19 97 % - 12/23/16 0145 109/70 37.4 C (99.3 F) - 111 19 94 % - 12/23/16 0130 114/73 37.5 C (99.5 F) - 116 16 90 % - 12/23/16 0124 - - - 106 20 90 % - 12/23/16 0115 123/72 37.5 C (99.5 F) - 109 20 96 % - 12/23/16 0100 109/62 37.5 C (99.5 F) - 107 19 93 % - 12/23/16 0045 116/61 37.5 C (99.5 F) - 107 16 96 % - 12/23/16 0030 101/61 37.6 C (99.7 F) - 108 18 97 % - 12/23/16 0015 102/63 37.6 C (99.7 F) - 101 22 97 % - 12/23/16 0000 93/67 37.6 C (99.7 F) - 105 15 94 % - 12/22/16 2345 97/67 37.7 C (99.9 F) - 113 15 96 % - 12/22/16 2330 96/58 37.7 C (99.9 F) - 103 14 95 % - 12/22/16 2315 97/62 37.7 C (99.9 F) - 112 16 92 % - 12/22/16 2300 109/64 37.7 C (99.9 F) Bladder 112 17 93 % - 12/22/16 2245 113/57 37.7 C (99.9 F) - 111 17 93 % - 12/22/16 2230 100/57 37.7 C (99.9 F) - 119 20 92 % - 12/22/16 2215 107/55 37.8 C (100 F) - 100 16 97 % - 12/22/16 2200 91/61 37.7 C (99.9 F) - 108 18 97 % - 12/22/16 2145 (!) 86/61 37.8 C (100 F) - 107 17 91 % - 12/22/16 2130 98/64 37.9 C (100.2 F) - 104 21 94 % - 12/22/162114 95/56 37.9 C (100.2 F) - 110 18 95 % - 12/22/162099 96/54 37.9 C (100.2 F) - 99 15 96 % - 12/22/162044 109/65 (!) 38 C (100.4 F) - 112 21 91 % - 12/22/162029 90/59 (!) 38 C (100.4 F) - 114 16 93 % - 12/22/162019 - - - 116 14 96 % - 12/22/162014 107/80 (!) 38.1 C (100.6 F) - 107 17 91 % - 12/22/161999 108/60 (!) 38.1 C (100.6 F) - 96 17 93 % - 12/22/161944 95/61 (!) 38.1 C (100.6 F) - 110 17 95 % - 12/22/16 1930 (!) 78/52 (!) 38.1 C (100.6 F) - 106 19 93 % - 12/22/16 1915 (!) 88/61 (!) 38.1 C (100.6 F) - 108 17 (!) 88 % - 12/22/16 1857 (!) 88/56 (!) 38.1 C (100.6 F) - 118 22 92 % - 12/22/16 1845 (!) 84/59 (!) 38.1 C (100.6 F) - 112 21 (!) 81 % - 12/22/16 1830 (!) 87/60 (!) 38.1 C (100.6 F) - 112 23 (!) 76 % - Recent Results (from the past 24 hour(s)) CBC no Differential Result Value Ref Range WBC 8.7 4.0 - 11.0 K/uL RBC 2.53 (L) 4.30 - 5.70 M/uL Hgb 7.6 (L) 13.5 - 18.0 g/dL Hct 23.1 (L) 40.0 - 51.0 % MCV 91.4 83.0 - 101.0 fL MCH 30.0 28.0 - 35.0 pg MCHC 32.8 32.0 - 36.0 g/dL RDW-CV 16.0 (H) <15.0 % Platelet Count 194 140 - 440 K/uL MPV 8.2 fL Red Blood Cells (PRBC) - Crossmatch Result Value Ref Range Product Code R7341P05 UNIT # [id number] UNIT ABO O UNIT RH POS CROSSMATCH INTERP Compatible Unit Status Transfused Blood Product ABOR OPOS Blood Product Expiration Date and Time Product Blood Type Barcode 5100 Product Code R1712U55 UNIT # [id number] UNIT ABO O UNIT RH POS CROSSMATCH INTERP Compatible Unit Status Transfused Blood Product ABOR OPOS Blood Product Expiration Date and Time Product Blood Type Barcode 5100 Basic Metabolic Panel Result Value Ref Range NA 136 136 - 149 mmol/L K 3.6 3.5 - 5.1 mmol/L CL 107 98 - 109 mmol/L CO2 23 (L) 24 - 31 mmol/L ANION GAP 6 3 - 16 mmol/L GLUCOSE 104 70 - 109 mg/dL BUN 18 7 - 18 mg/dL Creatinine, Serum/Plasma 1.25 0.60 - 1.30 mg/dL eGFR if not 55 (L) >=60 mL/min/1.73m2 CALCIUM 8.1 (L) 8.3 - 10.5 mg/dL BUN/CREA 14.4 Protime INR Result Value Ref Range PROTIME 24.9 (H) 11.3 - 13.9 seconds INR 2.18 (H) 0.90 - 1.10 CBC with Differential Result Value Ref Range WBC 8.0 4.0 - 11.0 K/uL RBC 2.53 (L) 4.30 - 5.70 M/uL Hgb 7.7 (L) 13.5 - 18.0 g/dL Hct 23.1 (L) 40.0 - 51.0 % MCV 91.3 83.0 - 101.0 fL MCH 30.5 28.0 - 35.0 pg MCHC 33.5 32.0 - 36.0 g/dL RDW-CV 16.0 (H) <15.0 % Platelet Count 195 140 - 440 K/uL MPV 8.1 fL % Neutrophils 81.8 45.0 - 82.0 % % Lymphocytes 3.5 (L) 20.0 - 45.0 % % Monocytes 9.5 4.0 - 12.0 % % Eosinophils 4.5 0.0 - 5.0 % % Basophils 0.7 0.0 - 1.0 % Absolute Neutrophils 6.60 1.80 - 8.50 K/uL Absolute Lymphocytes 0.30 (L) 0.60 - 3.20 K/uL Absolute Monocytes 0.80 0.00 - 1.00 K/uL Absolute Eosinophils 0.40 0.00 - 0.40 K/uL Absolute Basophils 0.10 0.00 - 0.10 K/uL Hemoglobin and Hematocrit Result Value Ref Range Hgb 7.7 (L) 13.5 - 18.0 g/dL Hct 23.3 (L) 40.0 - 51.0 % Bilateral Lower Extremity: Dressing: slight serosanguinous drainage in dressing, no active drainage Sensation: intact all toes Motor: wiggles toes Circulation: capillary refill < 2 seconds bilateral toes Assessment: POD # 4 s/p IM fixation of bilateral femur fractures. Hypotensive requiring pressors. Acute blood loss anemia requiring transfusion. Plan: Mobilize as medical condition allows. Warfarin for DVT prophylaxis. Medical manageme nt per hospitalist team. Will follow. Lambert Mancuso MD DATE/TIME: 12/23/2016 18:17 Samueltel, MD Angel - 0 12/23/2016 9:04 AM PDT [facility] HOSPITALIST PROGRESS NOTE Patient: Dora Thomason : 1930: Age: 86 y.o. MedRec: [id number] PCP: Carlos Alberto Galeas MD Admission date: 12/18/2016 Hospital day # : 5 Physician author: Angel Hendrix MD Today: 12/23/2016 SUBJECTIVE: Seen this AM , on 3 mcg of Levophed Overnight no events Pain is well controlled No fever, chills VITALS: Temp: 37.3 C (99.1 F), Pulse: 114, Resp: 20, BP: 91/63, SpO2 92 % on nasal cannula at f low rate 2L/min Temp Min: 37.1 C (98.8 F) Max: 38.1 C (100.6 F) Weight: 78 kg (172 lb) I/O last 3 completed shifts: In: 1427 [P.O.:760; I.V.:364; Blood:3; IV Piggyback:300] Out: 1245 [Urine:1180; Other:65] I/O this shift: In: 240 [P.O.:240] Out: - PHYSICAL EXAM: General: AAO x3, appears weak, on NC Cardiovascular: S1, s2, no murmurs Respiratory: Good air entry, no wheezing or rhonchi Abdomen: Soft, bs + Extremities: Warm, no edema, Right foot psot op dressing in place , right arm PICC line Skin: Echymotic lesion bilateral hands /arms Neurological: No focal deficits DIAGNOSTIC STUDIES: Available data and images were reviewed personally. Significant results and findings are a ddressed here or in the Assessment and Plan. Recent Results (from the past 24 hour(s)) CBC no Differential Result Value Ref Range WBC 8.7 4.0 - 11.0 K/uL RBC 2.53 (L) 4.30 - 5.70 M/uL Hgb 7.6 (L) 13.5 - 18.0 g/dL Hct 23.1 (L) 40.0 - 51.0 % MCV 91.4 83.0 - 101.0 fL MCH 30.0 28.0 - 35.0 pg MCHC 32.8 32.0 - 36.0 g/dL RDW-CV 16.0 (H) <15.0 % Platelet Count 194 140 - 440 K/uL MPV 8.2 fL Red Blood Cells (PRBC) - Crossmatch Result Value Ref Range Product Code [id number] UNIT # [id number] UNIT ABO O UNIT RH POS CROSSMATCH INTERP Compatible Unit Status Transfused Blood Product ABORh OPOS Blood Product Expiration Date and Time Product Blood Type Barcode 5100 Product Code J9015E74 UNIT # [id number] UNIT ABO O UNIT RH POS CROSSMATCH INTERP Compatible Unit Status Transfused Blood Product ABOR OPOS Blood Product Expiration Date and Time Product Blood Type Barcode 5100 Basic Metabolic Panel Result Value Ref Range NA 136 136 - 149 mmol/L K 3.6 3.5 - 5.1 mmol/L CL 107 98 - 109 mmol/L CO2 23 (L) 24 - 31 mmol/L ANION GAP 6 3 - 16 mmol/L GLUCOSE 104 70 - 109 mg/dL BUN 18 7 - 18 mg/dL Creatinine, Serum/Plasma 1.25 0.60 - 1.30 mg/dL eGFR if not 55 (L) >=60 mL/min/1.73m2 CALCIUM 8.1 (L) 8.3 - 10.5 mg/dL BUN/CREA 14.4 Protime INR Result Value Ref Range PROTIME 24.9 (H) 11.3 - 13.9 seconds INR 2.18 (H) 0.90 - 1.10 CBC with Differential Result Value Ref Range WBC 8.0 4.0 - 11.0 K/uL RBC 2.53 (L) 4.30 - 5.70 M/uL Hgb 7.7 (L) 13.5 - 18.0 g/dL Hct 23.1 (L) 40.0 - 51.0 % MCV 91.3 83.0 - 101.0 fL MCH 30.5 28.0 - 35.0 pg MCHC 33.5 32.0 - 36.0 g/dL RDW-CV 16.0 (H) <15.0 % Platelet Count 195 140 - 440 K/uL MPV 8.1 fL % Neutrophils 81.8 45.0 - 82.0 % % Lymphocytes 3.5 (L) 20.0 - 45.0 % % Monocytes 9.5 4.0 - 12.0 % % Eosinophils 4.5 0.0 - 5.0 % % Basophils 0.7 0.0 - 1.0 % Absolute Neutrophils 6.60 1.80 - 8.50 K/uL Absolute Lymphocytes 0.30 (L) 0.60 - 3.20 K/uL Absolute Monocytes 0.80 0.00 - 1.00 K/uL Absolute Eosinophils 0.40 0.00 - 0.40 K/uL Absolute Basophils 0.10 0.00 - 0.10 K/uL Xr Chest Ap Portable Result Date: 12/22/2016 SINGLE AP CHEST 12/22/2016 12:59 PM CLINICAL HISTORY: shortness of breath COMPARISON: Chest r adiograph from the previous day and additional recent radiographs FINDINGS: The right approa ch PICC again passes to the region of the cavoatrial junction. There is similar prominence of the cardiac silhouette and pulmonary vasculature with calcification and tortuosity of the thoracic aorta. There is similar hazy reticular opacity in the mid to lower lungs. No pne umothorax or pleural effusion is evident. Generalized osteopenia is suggested. IMPRESSION - 1. STABLE RADIOGRAPHIC APPEARANCE OF THE CHEST DEMONSTRATING PROMINENCE OF THE CARDIAC SI LHOUETTE AND PULMONARY VASCULATURE AND NON-SPECIFIC HAZY RETICULAR OPACITY IN THE MID TO LOW ER LUNGS. Dictated and Signed by: Daniel Jordan MD Electronically signed: 12/22/2016 2:43 PM Xr Chest Ap Portable Result Date: 12/21/2016 EXAM: XR CHEST AP PORTABLE dated 12/21/2016 12:30 PM HISTORY: PICC tip placement Comparison: 12/20/2016 TECHNIQUE: A single portable view of the chest. FINDINGS: New right approach PICC l ine catheter. The catheter is seen to the level of the distal superior vena cava. Airspace opacities bilaterally are unchanged. No pneumothorax. There is stable cardiomegaly. No a cute osseous abnormalities. IMPRESSION - Right approach PICC line catheter tip seen in the d istal superior vena cava. No postprocedural complication. Dictated and Signed by: Matthew rhodes MD Electronically signed: 12/21/2016 1:06 PM Us Extremity Nonvascular Limited Right Result Date: 12/22/2016 RIGHT THIGH ULTRASOUND 12/22/2016 12:09 PM CLINICAL HISTORY: Right Thigh Ultrasound to see fl uid / blood collection COMPARISON: None available FINDINGS: Sonographic interrogation of the right thigh identifies no fluid collection, mass or other tissue distortion. IMPRESSION - 1 . NO SONOGRAPHIC ABNORMALITY WITHIN THE RIGHT THIGH. Dictated and Signed by: Daniel Jordan MD Electronically signed: 12/22/2016 2:44 PM Current Facility-Administered Medications: acetaminophen 650 mg Oral Q4H PRN albuterol-ipratropium 3 mL Nebulization RT Q4H amiodarone 200 mg Oral Daily atorvaSTATin 20 mg Oral Nightly azithromycin 500 mg Intravenous Daily cefTRIAXone 1 g Intravenous Daily docusate sodium 100 mg Oral BID PRN fentaNYL (PF) 25-50 mcg Intravenous Q1H PRN lactated ringers Intravenous Continuous norepinephrine 1-30 mcg/min Intravenous Titrated oxyCODONE 5-10 mg Oral Q4H PRN pharmacy to dose warfarin Other Pharmacy Consult polyethylene glycol 17 g Oral Daily PRN senna 8.6 mg Oral BID PRN ASSESSMENT and PLAN: Active Hospital Problems Diagnosis Anticoagulant long-term use Atrial flutter Femur fracture, left *Femur fracture, right Resolved Hospital Problems Diagnosis Date Noted Date Resolved No resolved problems to display. This is pleasant 86 y/o M with PMHx. Of HTN, A. Fib on AC with Bilateral Femur fractures a fter mechanical fall. ID -Septic shock 2/2 to Multi-Lobar Pneumonia. Remains on Levophed at 3 mcg. Hemodynamics uns table. -His Blood cultures, UA, Lactat, and Procalcitionin are negative. -CXR shows Right Basilar Pneumonia., on IV Rocephin / Azithro ( day 4 ) -C/w Statin for HLD Cardiovascular -Est. A. Flutter -On Amiodarone and coumadin ( INR is sup therapeutic 2.18). Hold AC given persistent drop i n H&H. Ortho -bilateral fractures s/p repair POD 4 -Pain control -Ortho follow up -Incentive spirometry Renal -Hypokalemia-resolved Hematology -Acute blood loss anemia 2/2 to Surgery. I suspect he may have been bleeding internally. He keeps dropping H&H. This AM Hb 7.7. He did not received PRBC yesterday. Repeat H&H at [address] Mancuso to visit this patient to see if he would like to -monitor H&H. His right thigh US is normal ( no collection of blood) -send stool occult NO CODE Continue ICU monitoring Prognosis Guarded Total time of approximately 30 minutes was spent with the patient and/or patient's family, and/or on the patient's floor/unit, of which more than 50% was spent counseling and/or coord ination the patient's care as outlined above. Angel Hendrix 12/23/2016 9:04 [facility] Salena Howard , [employer] WORK[employer] - 12/23/2016 7:45 AM PDTVern's BS are clear of wheezes or rhonchi, dim in bases, stil l wearing O2 @ 2 lpm. SpO2 91 to 94%. Tolerates TX's well. PEP therapy helps with secretion removal. erkit, Barbara Maurice, PharmD - 12/23/2016 7:12 AM PDTFormatting of this note might be different from the orig inal. ADDENDUM: warfarin being held today for possible bleed. Barbara Lee, PharmOzzie 12/23/2016 14:00 WARFARIN PER PHARMACY PROTOCOL: Subjective/Objective: Dora Thomason is a 86 y.o. male admitted on 12/18/2016 for orthopedic surgery secondar y to femoral fracture. 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 Patient is receiving warfarin for thromboprophyla xis postop and also for atrial flutter. Surgery date: 12/19/2016 [x]Fx []THR []TKR Dr. Mancuso Goal INR: 2-3 Enoxaparin bridge: []disch [x]Inr>2 []none Drug Interactions:Amiodarone Sensitizers:Age Recent Labs Lab 12/23/16 0435 12/23/16 0434 12/22/[id number] HGB 7.7* -- 7.6* -- 7.8* 9.1* HCT 23.1* -- 23.1* -- 23.4* 26.7* PLT 195 -- 194 -- 160 144 CREA -- 1.25 -- 1.12 -- 1.16 INR 2.18* -- -- -- 2.07* 1.82* Date 12/19 12/20 6/08 27/ 6/4 Hgb 10.9 8.7 9.1 7.8 7.7 Hct 33.4 26.5 26.7 23.4 23.1 Platelets 187 158 144 160 195 INR 1.78 1.67 1.82 2.07 2.18 Warfarin Dose 3 mg 3 mg 4 mg 3 mg None Assessment: Patient being initiated on warfarin for thromboprophylaxis s/p bilateral femur fx repair The INR is within the target range of 2-3 since 12/22 Pt admitted with a therapeutic INR, received 5 mg of Vit K in [place] and given FFP to help reverse anticoagulation in preparation for fx repair Was therapeutic on home regimen of 3 mg daily Most recent ECG shows atrial flutter on 12/18 INR is therapeutic today @ 2.18. Lovenox bridging discontinued Plan: Warfarin 3 mg orally daily INR, Hgb, Hct in am. If INR remains stable, may change it to MWF. 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 Subjective: Pain well controlled. Reports his was able to sit up in bed with therapy but pain prevented him from doing much more. He reports he is doing relatively well today. Objective: Patient Vitals for the past 24 hrs: BP Temp Temp src Pulse Resp SpO2 Weight 12/22/16 1301 91/54 - - 110 19 96 % - 12/22/16 1230 96/63 37.7 C (99.9 F) - 104 19 96 % - 12/22/16 1215 102/56 37.7 C (99.9 F) - 105 20 95 % - 12/22/16 1200 103/83 37.6 C (99.7 F) - 103 21 97 % - 12/22/16 1130 90/71 37.8 C (100 F) - 100 17 96 % - 12/22/16 1129 90/71 37.8 C (100 F) - 106 15 - - 12/22/16 1030 (!) 73/55 37.8 C (100 F) - 116 22 92 % - 12/22/16 1000 (!) 87/47 37.7 C (99.9 F) - 106 19 94 % - 12/22/16 0930 (!) 85/50 37.7 C (99.9 F) - 99 15 93 % - 12/22/16 0901 (!) 82/48 - - 102 21 94 % - 12/22/16 0839 - - - 114 19 92 % - 12/22/16 0800 (!) 88/69 37.5 C (99.5 F) - 122 19 95 % - 12/22/16 0700 112/66 37.5 C (99.5 F) Bladder 100 21 98 % - 12/22/16 0600 103/56 37.5 C (99.5 F) - 95 16 98 % - 12/22/16 0500 98/66 37.6 C (99.7 F) - 105 23 93 % - 12/22/16 0400 99/62 37.5 C (99.5 F) Bladder 111 24 95 % - 12/22/16 0300 92/66 37.8 C (100 F) - 117 26 95 % - 12/22/16 0208 - - - - - - 88.3 kg (194 lb 10.7 oz) 12/22/16 0200 110/77 37.9 C (100.2 F) - 117 27 94 % - 12/22/16 0100 104/64 37.8 C (100 F) - 100 24 96 % - 12/22/16 0000 91/63 37.9 C (100.2 F) - 92 25 97 % - 12/21/16 2300 107/54 37.9 C (100.2 F) - 106 22 92 % - 12/21/16 2230 (!) 86/63 37.9 C (100.2 F) - 101 18 99 % - 12/21/16 2200 101/64 37.9 C (100.2 F) - 113 21 99 % - 12/21/16 2130 93/77 (!) 38 C (100.4 F) - 110 24 92 % - 12/21/16 2100 (!) 87/62 (!) 38.1 C (100.6 F) - 97 15 94 % - 12/21/162046 - - - 102 20 95 % - 12/21/162002 (!) 79/67 - Oral - - - - 12/21/16 191 (!) 89/58 (!) 38.3 C (100.9 F) - 123 21 90 % - 12/21/16 1900 91/70 (!) 38.3 C (100.9 F) - 108 20 (!) 81 % - 12/21/16 1845 (!) 81/58 (!) 38.3 C (100.9 F) - 108 20 (!) 81 % - 12/21/16 1830 (!) 87/61 (!) 38.3 C (100.9 F) - 108 20 91 % - 12/21/16 1815 (!) 86/57 (!) 38.2 C (100.8 F) - 109 20 90 % - 12/21/16 1800 (!) 86/57 (!) 38.2 C (100.8 F) - 112 18 90 % - 12/21/16 1745 (!) 83/55 (!) 38.2 C (100.8 F) - 109 25 95 % - 12/21/16 1730 90/53 (!) 38.1 C (100.6 F) - 108 19 95 % - 12/21/16 1715 93/80 (!) 38.1 C (100.6 F) - 105 20 92 % - 12/21/16 1700 (!) 85/63 (!) 38.1 C (100.6 F) - 114 27 95 % - 12/21/16 1645 (!) 89/67 (!) 38.1 C (100.6 F) - 114 23 96 % - 12/21/16 1630 112/48 (!) 38.1 C (100.6 F) - 115 21 94 % - 12/21/16 1615 96/67 (!) 38 C (100.4 F) - 112 27 94 % - 12/21/16 1600 137/58 (!) 38 C (100.4 F) - 106 19 97 % - 12/21/16 1542 99/69 (!) 38 C (100.4 F) - 104 22 93 % - 12/21/16 1540 - - - 114 24 94 % - 12/21/16 1529 119/74 37.9 C (100.2 F) - 113 20 97 % - 12/21/16 1515 97/78 (!) 38 C (100.4 F) - 98 19 95 % - 12/21/16 1500 112/71 (!) 38 C (100.4 F) - 89 18 92 % - 12/21/16 1445 103/85 (!) 38 C (100.4 F) - 94 20 95 % - 12/21/16 1430 90/65 (!) 38 C (100.4 F) - 100 17 96 % - 12/21/16 1415 (!) 88/63 (!) 38 C (100.4 F) - 102 18 94 % - 12/21/16 1400 104/67 (!) 38 C (100.4 F) - 107 24 96 % - Recent Results (from the past 24 hour(s)) Protime INR Result Value Ref Range PROTIME 23.9 (H) 11.3 - 13.9 seconds INR 2.07 (H) 0.90 - 1.10 CBC with Differential Result Value Ref Range WBC 8.9 4.0 - 11.0 K/uL RBC 2.55 (L) 4.30 - 5.70 M/uL Hgb 7.8 (L) 13.5 - 18.0 g/dL Hct 23.4 (L) 40.0 - 51.0 % MCV 91.6 83.0 - 101.0 fL MCH 30.8 28.0 - 35.0 pg MCHC 33.6 32.0 - 36.0 g/dL RDW-CV 15.7 (H) <15.0 % Platelet Count 160 140 - 440 K/uL MPV 8.5 fL % Neutrophils 84.2 (H) 45.0 - 82.0 % % Lymphocytes 2.9 (L) 20.0 - 45.0 % % Monocytes 9.1 4.0 - 12.0 % % Eosinophils 3.2 0.0 - 5.0 % % Basophils 0.6 0.0 - 1.0 % Absolute Neutrophils 7.50 1.80 - 8.50 K/uL Absolute Lymphocytes 0.30 (L) 0.60 - 3.20 K/uL Absolute Monocytes 0.80 0.00 - 1.00 K/uL Absolute Eosinophils 0.30 0.00 - 0.40 K/uL Absolute Basophils 0.10 0.00 - 0.10 K/uL Basic Metabolic Panel Result Value Ref Range NA 136 136 - 149 mmol/L K 3.3 (L) 3.5 - 5.1 mmol/L CL 105 98 - 109 mmol/L CO2 24 24 - 31 mmol/L ANION GAP 7 3 - 16 mmol/L GLUCOSE 116 (H) 70 - 109 mg/dL BUN 18 7 - 18 mg/dL Creatinine, Serum/Plasma 1.12 0.60 - 1.30 mg/dL eGFR if not >60 >=60 mL/min/1.73m2 CALCIUM 7.9 (L) 8.3 - 10.5 mg/dL BUN/CREA 16.1 Red Blood Cells (PRBC) - Crossmatch Result Value Ref Range Product Code I9205G41 UNIT # [id number] UNIT ABO O UNIT RH POS CROSSMATCH INTERP Compatible Unit Status Transfused Blood Product ABORh OPOS Blood Product Expiration Date and Time Product Blood Type Barcode 5100 Product Code F3059P59 UNIT # [id number] UNIT ABO O UNIT RH POS CROSSMATCH INTERP Compatible Unit Status Issued Blood Product ABORh OPOS Blood Product Expiration Date and Time Product Blood Type Barcode 5100 Bilateral lower extremities: Dressings: clean, dry and intact. Multiple skin tares with dressings in place Sensation: intact all toes Motor: wiggles toes bilaterally, good strength to ankle flexion and extension Circulation: capillary refill < 2 seconds bilaterally, thigh compartments soft bilaterally Assessment: POD #3 Doing well. Acute blood loss anemia as expected. Multiple medical issues managed by hospitalist team Plan: Continue to appreciate hospitalist management. Mobilize as able, continue activity p arameters, DVT prophylaxis. SNF placement. Elsa Arzola PA-C DATE/TIME: 12/22/2016 13:56 APatel, Jayden amin MD - 12/22/2016 9:39 AM PDT [facility] HOSPITALIST PROGRESS NOTE Patient: Dora Thomason : 1930: Age: 86 y.o. MedRec: [id number] PCP: Carlos Alberto Galeas MD Admission date: 12/18/2016 Hospital day # : 4 Physician author: Angel Hendrix MD Today: 12/22/2016 SUBJECTIVE: Seen this AM ,off Levophed Pain is well controlled No fever, chills VITALS: Temp: 37.7 C (99.9 F), Pulse: 99, Resp: 15, BP: (!) 85/50, SpO2 93 % on nasal cannula a t flow rate 2L/min Temp Min: 37.5 C (99.5 F) Max: 38.3 C (100.9 F) Weight: 78 kg (172 lb) I/O last 3 completed shifts: In: 2110 [P.O.:800; I.V.:810; IV Piggyback:500] Out: 1230 [Urine:1165; Other:65] No intake/output data recorded. PHYSICAL EXAM: General: AAO x3, appears weak Cardiovascular: S1, s2, no murmurs Respiratory: Good air entry, no wheezing or rhonchi Abdomen: Soft, bs + Extremities: Warm, no edema, Right foot psot op dressing in place , right arm PICC line Skin: Echymotic lesion bilateral hands /arms / Neurological: No focal deficits DIAGNOSTIC STUDIES: Available data and images were reviewed personally. Significant results and findings are a ddressed here or in the Assessment and Plan. Recent Results (from the past 24 hour(s)) Protime INR Result Value Ref Range PROTIME 23.9 (H) 11.3 - 13.9 seconds INR 2.07 (H) 0.90 - 1.10 CBC with Differential Result Value Ref Range WBC 8.9 4.0 - 11.0 K/uL RBC 2.55 (L) 4.30 - 5.70 M/uL Hgb 7.8 (L) 13.5 - 18.0 g/dL Hct 23.4 (L) 40.0 - 51.0 % MCV 91.6 83.0 - 101.0 fL MCH 30.8 28.0 - 35.0 pg MCHC 33.6 32.0 - 36.0 g/dL RDW-CV 15.7 (H) <15.0 % Platelet Count 160 140 - 440 K/uL MPV 8.5 fL % Neutrophils 84.2 (H) 45.0 - 82.0 % % Lymphocytes 2.9 (L) 20.0 - 45.0 % % Monocytes 9.1 4.0 - 12.0 % % Eosinophils 3.2 0.0 - 5.0 % % Basophils 0.6 0.0 - 1.0 % Absolute Neutrophils 7.50 1.80 - 8.50 K/uL Absolute Lymphocytes 0.30 (L) 0.60 - 3.20 K/uL Absolute Monocytes 0.80 0.00 - 1.00 K/uL Absolute Eosinophils 0.30 0.00 - 0.40 K/uL Absolute Basophils 0.10 0.00 - 0.10 K/uL Basic Metabolic Panel Result Value Ref Range NA 136 136 - 149 mmol/L K 3.3 (L) 3.5 - 5.1 mmol/L CL 105 98 - 109 mmol/L CO2 24 24 - 31 mmol/L ANION GAP 7 3 - 16 mmol/L GLUCOSE 116 (H) 70 - 109 mg/dL BUN 18 7 - 18 mg/dL Creatinine, Serum/Plasma 1.12 0.60 - 1.30 mg/dL eGFR if not >60 >=60 mL/min/1.73m2 CALCIUM 7.9 (L) 8.3 - 10.5 mg/dL BUN/CREA 16.1 Xr Chest Ap Portable Result Date: 12/21/2016 EXAM: XR CHEST AP PORTABLE dated 12/21/2016 12:30 PM HISTORY: PICC tip placement Comparison: 12/20/2016 TECHNIQUE: A single portable view of the chest. FINDINGS: New right approach PICC l ine catheter. The catheter is seen to the level of the distal superior vena cava. Airspace opacities bilaterally are unchanged. No pneumothorax. There is stable cardiomegaly. No a cute osseous abnormalities. IMPRESSION - Right approach PICC line catheter tip seen in the d istal superior vena cava. No postprocedural complication. Dictated and Signed by: Matthew rhodes MD Electronically signed: 12/21/2016 1:06 PM Xr Chest Ap Portable Result Date: 12/20/2016 EXAM: XR CHEST AP PORTABLE dated 12/20/2016 10:51 AM HISTORY: FEVER Comparison: Outside study 12/18/2016 TECHNIQUE: A single portable view of the chest. FINDINGS: Bilateral reticular jerri earing interstitial and airspace opacities in the upper lobes. Potential developing consoli dation in the right lower lung. No pneumothorax. No large pleural effusions. Stable mild cardiac. No acute osseous abnormalities. IMPRESSION - Interstitial g opacities in the upper lungs bilaterally. This is uncertain if this is acute or chronic. Developing consolidation in the right lung may represent represent a pneumonia. Dictated and Signed by: Matthew dorsey MD Electronically signed: 12/20/2016 11:00 AM Current Facility-Administered Medications: acetaminophen 650 mg Oral Q4H PRN albuterol-ipratropium 3 mL Nebulization RT Q4H amiodarone 200 mg Oral Daily atorvaSTATin 20 mg Oral Nightly azithromycin 500 mg Intravenous Daily cefTRIAXone 1 g Intravenous Daily docusate sodium 100 mg Oral BID PRN fentaNYL (PF) 25-50 mcg Intravenous Q1H PRN lactated ringers Intravenous Continuous norepinephrine 1-30 mcg/min Intravenous Titrated oxyCODONE 5-10 mg Oral Q4H PRN pharmacy to dose warfarin Other Pharmacy Consult polyethylene glycol 17 g Oral Daily PRN potassium chloride (peripheral line) IVPB 40 mEq Intravenous Once senna 8.6 mg Oral BID PRN warfarin 3 mg Oral Daily - Warfarin ASSESSMENT and PLAN: Active Hospital Problems Diagnosis Anticoagulant long-term use Atrial flutter Femur fracture, left *Femur fracture, right Resolved Hospital Problems Diagnosis Date Noted Date Resolved No resolved problems to display. This is pleasant 86 y/o M with PMHx. Of HTN, A. Fib on AC with Bilateral Femur fractures a fter mechanical fall. ID He is post-op day 3. He is off Levophed. Hemodynamics stable. -His Blood cultures, UA, La ctat, and Procalcitionin are negative. -CXR shows Right Basilar Pneumonia., on IV Rocephin / Azithro ( day 3 ) -C/w Statin for HLD Cardiovascular -Est. A. Flutter -C/w Amiodarone and coumadin ( INR is sup therapeutic 2.07, c/w Lovenox -coumadin bridge. G iven high risk of PE post OP) -pharmacy follow up appreciated Ortho -bilateral fractures s/p repair -Pain control -Ortho follow up -Incentive spirometry Renal -Hypokalemia 3.3 -K repleted Hematology -Acute blood loss anemia 2/2 to Surgery -he is s/p 1 unit PRBC. -this AM Hb 7.8, transfuse his 1 unit PRBC -monitor H&H -repeat H&H at 1700 hours Continue ICU monitoring Prognosis Guarded Total time of approximately 30 minutes was spent with the patient and/or patient's family, and/or on the patient's floor/unit, of which more than 50% was spent counseling and/or coord ination the patient's care as outlined above. Angel Hendrix 12/22/2016 9:39 [facility] Salena Howard RRT - 12/22/2016 9:01 AM PDTPt's right 3rd toe was cleaned and made ready for new applica tion of oximetry probe. Values remain the same, preparation for room air oximetry evaluatio n. Demi Kang PharmD - 12/22/2016 8:56 AM PDTFormatting of this note might be different from dena arredondo original. WARFARIN PER PHARMACY PROTOCOL: Subjective/Objective: Dora Thomason is a 86 y.o. male admitted on 12/18/2016 for orthopedic surgery secondar y to femoral fracture. 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 Patient is receiving warfarin for thromboprophyla xis postop and also for atrial flutter. Surgery date: 12/19/2016 [x]Fx []THR []TKR Dr. Mancuso Goal INR: 2-3 Enoxaparin bridge: []disch [x]Inr>2 []none Drug Interactions:Amiodarone Sensitizers:Age Recent Labs Lab 12/22/16 0341 12/22/16 0340 12/21/16 0345 12/20/16 1854 12/20/16 0418 HGB -- 7.8* 9.1* 8.7* 8.7* HCT -- 23.4* 26.7* 26.7* 26.5* PLT -- 160 144 -- 158 CREA 1.12 -- 1.16 -- 1.19 INR -- 2.07* 1.82* -- 1.67* Date 12/19 12/20 12/21 12/22 Hgb 10.9 8.7 9.1 7.8 Hct 33.4 26.5 26.7 23.4 Platelets 187 158 144 160 INR 1.78 1.67 1.82 2.07 Warfarin Dose 3 mg 3 mg 4 mg 3 mg Assessment: Patient being initiated on warfarin for thromboprophylaxis s/p bilateral femur fx repair The INR is within the target range of 2-3 Pt admitted with a therapeutic INR, received 5 mg of Vit K in [place] and given FFP to help reverse anticoagulation in preparation for fx repair Was therapeutic on home regimen of 3 mg daily Most recent ECG shows atrial flutter on 12/18 INR is therapeutic today @ 2.07. Will d/c lovenox bridge since INR therapeutic Plan: Warfarin 4 mg x1 Continue Lovenox 1mg/kg BID for bridging warfarin INR, Hgb, Hct in am Warfarin education received No; ACCOUNT DEVELOPMENT REPRESENTATIVE Will monitor daily Warfarin Dosing Nomogram Warfarin Dosing Expectations Per P&T-approved Callie Burris PharmD 12/22/2016 8:56 Alisia Guajardo RN - 12/21/2016 2:57 PM PDTSkin tear dressings on right and left thighs and two dressin g on left wrist and left forearm changed from tegaderm to vaseline gauze w/ low-adhesive foa m over the top. Old dressings were removed without incident, wounds were cleaned w/ wound c leanser, and sites were redressed. Pt pre-medicated w/ IV fentanyl and turned to left side w/ pillow supports. Pt tolerated well, with some complaint of pain w/ turning. Electronicall y signed by Kathie Cabrera RN at 12/21/2016 2:59 PM Kathie Guajardo RN - 12/21/2016 12 :40 PM PDTCare assumed of patient. Report received from SANDY Crandall. Angel Gallagher MD - 12/21/2016 9:35 AM PDTFor matting of this note might be different from the original. [facility] HOSPITALIST PROGRESS NOTE Patient: Dora Thomason : 1930: Age: 86 y.o. MedRec: [id number] PCP: Carlos Alberto Galeas MD Admission date: 12/18/2016 Hospital day # : 3 Physician author: Angel Hendrix MD Today: 12/21/2016 SUBJECTIVE: Seen this AM, this AM he remains hypotensive. His hypotension from yesterday improved after 1 unit of PRBC until this AM. VITALS: Temp: (!) 38.1 C (100.6 F), Pulse: 101, Resp: 18, BP: (!) 86/51, SpO2 92 % on nasal can nula at flow rate 2.5 (decreased to 2 lpm)L/min Temp Min: 37.6 C (99.7 F) Max: 39.1 C (102.4 F) Weight: 78 kg (172 lb) I/O last 3 completed shifts: In: 6461 [P.O.:1340; I.V.:3542; Blood:279; IV Piggyback:1300] Out: 3075 [Urine:2825; Blood:250] I/O this shift: In: 360 [P.O.:360] Out: - PHYSICAL EXAM: General: AAO x3, appears weak Cardiovascular: S1, s2, no murmurs Respiratory: Good air entry, no wheezing or rhonchi Abdomen: Soft, bs + Extremities: Warm, no edema, Right foot psot op dressing in place Skin: Echymotic lesion bilateral hands /arms / Neurological: No focal deficits DIAGNOSTIC STUDIES: Available data and images were reviewed personally. Significant results and findings are a ddressed here or in the Assessment and Plan. Recent Results (from the past 24 hour(s)) Lactic Acid Result Value Ref Range LACTATE 1.9 0.5 - 2.2 mmol/L Culture, Blood Result Value Ref Range Culture No growth: Monitored continually by instrument for 5 days Procalcitonin Result Value Ref Range Procalcitonin 0.42 <=0.50 ng/mL Comment Extra Green Top Tube Result Value Ref Range Extra Green Top Tube Done Extra Blue Top Tube Result Value Ref Range Extra Blue Top Tube Done Extra Lavender Top Tube Result Value Ref Range Extra Lavender Top Tube Done Culture, Blood Result Value Ref Range Culture No growth: Monitored continually by instrument for 5 days Hemoglobin and Hematocrit Result Value Ref Range Hgb 8.7 (L) 13.5 - 18.0 g/dL Hct 26.7 (L) 40.0 - 51.0 % Red Blood Cells (PRBC) - Crossmatch Result Value Ref Range Product Code C5155X82 UNIT # [id number] UNIT ABO O UNIT RH POS CROSSMATCH INTERP Compatible Unit Status Transfused Blood Product ABOR OPOS Blood Product Expiration Date and Time Product Blood Type Barcode 5100 Product Code Z6231U20 UNIT # [id number] UNIT ABO O UNIT RH POS CROSSMATCH INTERP Compatible Unit Status Crossmatched Blood Product ABOR OPOS Blood Product Expiration Date and Time Product Blood Type Barcode 5100 Basic Metabolic Panel Result Value Ref Range NA 137 136 - 149 mmol/L K 3.6 3.5 - 5.1 mmol/L CL 107 98 - 109 mmol/L CO2 24 24 - 31 mmol/L ANION GAP 6 3 - 16 mmol/L GLUCOSE 103 70 - 109 mg/dL BUN 16 7 - 18 mg/dL Creatinine, Serum/Plasma 1.16 0.60 - 1.30 mg/dL eGFR if not 60 >=60 mL/min/1.73m2 CALCIUM 7.9 (L) 8.3 - 10.5 mg/dL BUN/CREA 13.8 Protime INR Result Value Ref Range PROTIME 21.6 (H) 11.3 - 13.9 seconds INR 1.82 (H) 0.90 - 1.10 CBC with Differential Result Value Ref Range WBC 8.8 4.0 - 11.0 K/uL RBC 2.88 (L) 4.30 - 5.70 M/uL Hgb 9.1 (L) 13.5 - 18.0 g/dL Hct 26.7 (L) 40.0 - 51.0 % MCV 92.8 83.0 - 101.0 fL MCH 31.5 28.0 - 35.0 pg MCHC 34.0 32.0 - 36.0 g/dL RDW-CV 15.7 (H) <15.0 % Platelet Count 144 140 - 440 K/uL MPV 8.5 fL % Neutrophils 81.0 45.0 - 82.0 % % Lymphocytes 4.2 (L) 20.0 - 45.0 % % Monocytes 12.0 4.0 - 12.0 % % Eosinophils 2.5 0.0 - 5.0 % % Basophils 0.3 0.0 - 1.0 % Absolute Neutrophils 7.10 1.80 - 8.50 K/uL Absolute Lymphocytes 0.40 (L) 0.60 - 3.20 K/uL Absolute Monocytes 1.10 (H) 0.00 - 1.00 K/uL Absolute Eosinophils 0.20 0.00 - 0.40 K/uL Absolute Basophils 0.00 0.00 - 0.10 K/uL Xr Chest Ap Portable Result Date: 12/20/2016 EXAM: XR CHEST AP PORTABLE dated 12/20/2016 10:51 AM HISTORY: FEVER Comparison: Outside study 12/18/2016 TECHNIQUE: A single portable view of the chest. FINDINGS: Bilateral reticular jerri earing interstitial and airspace opacities in the upper lobes. Potential developing consoli dation in the right lower lung. No pneumothorax. No large pleural effusions. Stable mild cardiac. No acute osseous abnormalities. IMPRESSION - Interstitial g opacities in the upper lungs bilaterally. This is uncertain if this is acute or chronic. Developing consolidation in the right lung may represent represent a pneumonia. Dictated and Signed by: Matthew dorsey MD Electronically signed: 12/20/2016 11:00 AM Xr Femur Left 2+vw Result Date: 12/19/2016 XR FEMUR LEFT 2+VW 12/19/2016 4:30 PM HISTORY: intra op. COMPARISON: None. FINDINGS: Intraop erative x-rays show placement of an intramedullary yulisa through the left femur. IMPRESSION - ORIF of left femur. Dictated and Signed by: Nikko Morejon MD Electronically signed: 7 7:22 PM Xr Femur Right 2+vw Result Date: 12/19/2016 XR FEMUR RIGHT 2+VW 12/19/2016 4:30 PM HISTORY: intra op. COMPARISON: None. FINDINGS: Intrao perative x-rays show placement of an intramedullary yulisa through the right femur. IMPRESSION - ORIF of right femur. Dictated and Signed by: Nikko Morejon MD Electronically signed: 2016 7:22 PM Fl C-arm Stats No Charge Result Date: 12/19/2016 No Radiologist interpretation, please see Chart Review. Current Facility-Administered Medications: acetaminophen 650 mg Oral Q4H PRN amiodarone 200 mg Oral Daily atorvaSTATin 20 mg Oral Nightly azithromycin 500 mg Intravenous Daily cefTRIAXone 1 g Intravenous Daily docusate sodium 100 mg Oral BID PRN enoxaparin 80 mg Subcutaneous 2 times per day fentaNYL (PF) 25-50 mcg Intravenous Q1H PRN lactated ringers Intravenous Continuous oxyCODONE 5-10 mg Oral Q4H PRN pharmacy to dose warfarin Other Pharmacy Consult polyethylene glycol 17 g Oral Daily PRN senna 8.6 mg Oral BID PRN warfarin 4 mg Oral Once - Warfarin ASSESSMENT and PLAN: Active Hospital Problems Diagnosis Anticoagulant long-term use Atrial flutter Femur fracture, left *Femur fracture, right Resolved Hospital Problems Diagnosis Date Noted Date Resolved No resolved problems to display. This is pleasant 86 y/o M with PMHx. Of HTN, A. Fib on AC with Bilateral Femur fractures a fter mechanical fall. Hemodynamically unstable. ID He is post-op day 2. Currently he is running hypotensive, with fevers. He is s/p 2 L fluid boluses Plus 1 unit of PRBC transfused 12/21/16 with no improvement in hemodynamics. -His Blood cultures, UA, Lactat, and Procalcitionin are negative. -CXR shows Right Basilar Pneumonia., on IV Rocephin / Azithro ( day 2 ) -His hypotension is likely from Pneumonia with fevers, Start Levophed via PICC Line and alison p MAP > 65 mm Hg -C/w Statin for HLD Cardiovascular -Est. A. Flutter -C/w Amiodarone and coumadin ( INR is sup therapeutic 1.82, c/w Lovenox -coumadin bridge. G iven high risk of PE post OP) -pharmacy follow up appreciated Ortho -bilateral fractures s/p repair -Pain control -Ortho follow up -Incentive spirometry Continue ICU monitoring Prognosis Guarded Total time of approximately 30 minutes was spent with the patient and/or patient's family, and/or on the patient's floor/unit, of which more than 50% was spent counseling and/or coord ination the patient's care as outlined above. Angel Hendrix 12/21/2016 9:35 [facility] adha Doherty, PharmD - 12/21/2016 8:55 AM PDT WARFARIN PER PHARMACY PROTOCOL: Subjective/Objective: Dora Thomason is a 86 y.o. male admitted on 12/18/2016 for orthopedic surgery secondar y to femoral fracture. 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 Patient is receiving warfarin for thromboprophyla xis postop and also for atrial flutter. Surgery date: 12/19/2016 [x]Fx []THR []TKR Dr. Mancuso Goal INR: 2-3 Enoxaparin bridge: []disch [x]Inr>2 []none Drug Interactions:Amiodarone Sensitizers:Age Recent Labs Lab 12/21/16 0345 12/20/16 1854 12/20/16 0418 12/19/16 1506 12/19/16 0618 HGB 9.1* 8.7* 8.7* -- 10.9* HCT 26.7* 26.7* 26.5* -- 33.4* PLT 144 -- 158 -- 187 CREA 1.16 -- 1.19 -- 1.23 INR 1.82* -- 1.67* 1.78* -- Date 12/19 12/20 6/ Hgb 10.9 8.7 9.1 Hct 33.4 26.5 26.7 Platelets 187 158 144 INR 1.78 1.67 1.82 Warfarin Dose 3 mg 3 mg 4 mg Assessment: Patient being initiated on warfarin for thromboprophylaxis s/p bilateral femur fx repair The INR is below the target range of 2-3 Pt admitted with a therapeutic INR, received 5 mg of Vit K in [place] and given FFP to help reverse anticoagulation in preparation for fx repair Was therapeutic on home regimen of 3 mg daily Most recent ECG shows atrial flutter on 12/18 INR is subtherapeutic today @ 1.67- almost a whole point drop. Pt's INR likely resistant to increasing secondary to Vit K administration jose-op. Therefore, recommending lovenox br idge until INR therapeutic Plan: Warfarin 4 mg x1 Continue Lovenox 1mg/kg BID for bridging warfarin INR, Hgb, Hct in am Warfarin education received No; ACCOUNT DEVELOPMENT REPRESENTATIVE Will monitor daily Warfarin Dosing Nomogram Warfarin Dosing Expectations Per P&T-approved Radha Doherty, PharmD 12/21/2016 8:55 Lambert Smith MD - 12/21/2016 7:49 AM PDT Subjective: Pain well controlled. Left thigh is more sore, but getting better. Objective: Patient Vitals for the past 24 hrs: BP Temp Temp src Pulse Resp SpO2 Weight 12/21/16 0726 101/63 37.9 C (100.2 F) Bladder 104 20 96 % - 12/21/16 0700 97/72 37.9 C (100.2 F) - 108 24 92 % - 12/21/16 0630 111/76 37.8 C (100 F) - 96 21 91 % - 12/21/16 0600 115/69 37.8 C (100 F) - 114 21 95 % - 12/21/16 0530 113/63 37.8 C (100 F) - 102 21 93 % - 12/21/16 0500 102/60 37.7 C (99.9 F) - 107 23 92 % - 12/21/16 0430 107/71 37.7 C (99.9 F) - 107 22 96 % - 12/21/16 0400 116/65 37.7 C (99.9 F) - 97 20 92 % - 12/21/16 0330 100/65 37.7 C (99.9 F) - 94 19 95 % - 12/21/16 0300 125/63 37.6 C (99.7 F) - 94 22 95 % - 12/21/16 0230 106/64 37.6 C (99.7 F) - 98 20 95 % - 12/21/16 0200 103/75 37.6 C (99.7 F) - 91 21 93 % - 12/21/16 0130 106/68 37.7 C (99.9 F) - 95 22 95 % - 12/21/16 0126 - - - - - - 91.9 kg (202 lb 9.6 oz) 12/21/16 0100 107/73 37.7 C (99.9 F) - 96 20 93 % - 12/21/16 0030 121/70 37.8 C (100 F) - 103 15 97 % - 12/21/16 0000 108/71 37.9 C (100.2 F) - 99 20 95 % - 12/20/16 2330 94/58 (!) 38 C (100.4 F) - 110 26 93 % - 12/20/16 2300 97/60 (!) 38.2 C (100.8 F) - 102 20 95 % - 12/20/160 (!) 80/59 (!) 38.8 C (101.8 F) - 99 22 96 % - 12/20/162110 - - - 105 20 97 % - 12/20/162058 (!) 80/54 (!) 39 C (102.2 F) - 106 22 96 % - 12/20/162036 91/59 (!) 39.1 C (102.4 F) - 109 23 - - 12/20/16 2030 (!) 84/58 (!) 39.1 C (102.4 F) - 115 (!) 31 94 % - 12/20/16 2000 91/61 (!) 39 C (102.2 F) - 108 25 96 % - 12/20/16 1900 95/60 (!) 38.9 C (102 F) - 97 26 98 % - 12/20/16 1700 105/62 (!) 38.8 C (101.8 F) - 106 21 97 % - 12/20/16 1616 - - - 120 25 91 % - 12/20/16 1600 93/56 (!) 38.9 C (102 F) - 106 24 98 % - 12/20/16 1530 93/68 (!) 38.9 C (102 F) - 117 27 93 % - 12/20/16 1524 93/68 - Bladder - - - - 12/20/16 1224 (!) 76/49 (!) 38.8 C (101.8 F) Bladder 96 21 96 % - 12/20/16 1220 - - - 107 24 94 % - 12/20/16 1200 (!) 74/54 (!) 38.8 C (101.8 F) Bladder 98 19 94 % - 12/20/16 1100 (!) 85/59 (!) 38.7 C (101.7 F) Bladder 103 22 97 % - 12/20/16 0901 (!) 65/52 - - 109 19 92 % - Recent Results (from the past 24 hour(s)) Lactic Acid Result Value Ref Range LACTATE 1.9 0.5 - 2.2 mmol/L Culture, Blood Result Value Ref Range Culture No growth: Monitored continually by instrument for 5 days Procalcitonin Result Value Ref Range Procalcitonin 0.42 <=0.50 ng/mL Comment Extra Green Top Tube Result Value Ref Range Extra Green Top Tube Done Extra Blue Top Tube Result Value Ref Range Extra Blue Top Tube Done Extra Lavender Top Tube Result Value Ref Range Extra Lavender Top Tube Done Culture, Blood Result Value Ref Range Culture No growth: Monitored continually by instrument for 5 days Hemoglobin and Hematocrit Result Value Ref Range Hgb 8.7 (L) 13.5 - 18.0 g/dL Hct 26.7 (L) 40.0 - 51.0 % Red Blood Cells (PRBC) - Crossmatch Result Value Ref Range Product Code [id number] UNIT # [id number] UNIT ABO O UNIT RH POS CROSSMATCH INTERP Compatible Unit Status Transfused Blood Product [facility] Blood Product Expiration Date and Time Product Blood Type Barcode 5100 Product Code L4100B33 UNIT # [id number] UNIT ABO O UNIT RH POS CROSSMATCH INTERP Compatible Unit Status Crossmatched Blood Product [facility] Blood Product Expiration Date and Time Product Blood Type Barcode 5100 Basic Metabolic Panel Result Value Ref Range NA 137 136 - 149 mmol/L K 3.6 3.5 - 5.1 mmol/L CL 107 98 - 109 mmol/L CO2 24 24 - 31 mmol/L ANION GAP 6 3 - 16 mmol/L GLUCOSE 103 70 - 109 mg/dL BUN 16 7 - 18 mg/dL Creatinine, Serum/Plasma 1.16 0.60 - 1.30 mg/dL eGFR if not 60 >=60 mL/min/1.73m2 CALCIUM 7.9 (L) 8.3 - 10.5 mg/dL BUN/CREA 13.8 Protime INR Result Value Ref Range PROTIME 21.6 (H) 11.3 - 13.9 seconds INR 1.82 (H) 0.90 - 1.10 CBC with Differential Result Value Ref Range WBC 8.8 4.0 - 11.0 K/uL RBC 2.88 (L) 4.30 - 5.70 M/uL Hgb 9.1 (L) 13.5 - 18.0 g/dL Hct 26.7 (L) 40.0 - 51.0 % MCV 92.8 83.0 - 101.0 fL MCH 31.5 28.0 - 35.0 pg MCHC 34.0 32.0 - 36.0 g/dL RDW-CV 15.7 (H) <15.0 % Platelet Count 144 140 - 440 K/uL MPV 8.5 fL % Neutrophils 81.0 45.0 - 82.0 % % Lymphocytes 4.2 (L) 20.0 - 45.0 % % Monocytes 12.0 4.0 - 12.0 % % Eosinophils 2.5 0.0 - 5.0 % % Basophils 0.3 0.0 - 1.0 % Absolute Neutrophils 7.10 1.80 - 8.50 K/uL Absolute Lymphocytes 0.40 (L) 0.60 - 3.20 K/uL Absolute Monocytes 1.10 (H) 0.00 - 1.00 K/uL Absolute Eosinophils 0.20 0.00 - 0.40 K/uL Absolute Basophils 0.00 0.00 - 0.10 K/uL Bilateral lower extremities: Dressings: clean, dry and intact Sensation: intact all toes Motor: wiggles toes bilaterally Circulation: capillary refill < 2 seconds bilaterally Assessment: POD #2 Doing well. Acute blood loss anemia as expected. Plan: Mobilize as able. DVT prophylaxis. SNF placement. Lambert Mancuso MD DATE/TIME: 12/21/2016 7:49 Jordan Garnett, PharmD - 12/20/2016 7:15 PM PDT PHARMACY SERVICES: ADMISSION MEDICATION REVIEW Dora Thomason is a 86 y.o. male admitted on 12/18/16. Patient is a reliable historian. Location of Patient when reviewed: ED X Medical Floor Patient s prior to admit medication and over the counter (OTC) medications/herbal supplem ents list obtained from: X Verbal interview X Patient ABLE to recall name, strength, and directions X Doctor's office: [facility] Medicine X Care Everywhere Vaccines up to date? Yes No Unsure Influenza x Pneumococcal x Tdap x Shingles x Noted medications discrepancies or medication-related issues: Medication added: Medication: Prior to Admission Sig: Calcium and Vit-D 600 mg-200 units 1 tablet twice daily Centrum silver 1 tablet daily Vitamin C 500 mg 1 tablet daily Vitamin E 400 units 1 capsule daily Other: Warfarin - pt's last INR: 2.7 Drawn on 11/29 INR goal: 2-3.5 Current dosage - 3 mg daily for Atrial Fibrillation. Medication review performed and electronically signed by Don Siu, Basket Bottom Machine Operator 12/20/2016 19:03 Jordan Ball, PharmOzzie 12/20/2016 19:16 Valeria Bush RN - 12/20/2016 5:58 PM PDTSD:S/P bilat Femur Fx and ORIF of Right and Left Femur. Hypot ension all day with mult fluid boluses last shift and today. Pt received 1 Unit PRBC. PT h as increased confusion this afternoon. Temp up to 38.8C, started ABX today. Had PT today, did not get out of bed due to BP. Minimal pain, no appetite. Mult skin tears. Discharge soledad nners working on in - hospital rehab request. Joao Gaviria, PharmD - 12/20/2016 12:21 PM PDTFormatting of thi s note might be different from the original. WARFARIN PER PHARMACY PROTOCOL: Subjective/Objective: Dora Thomason is a 86 y.o. male admitted on 12/18/2016 for orthopedic surgery secondar y to femoral fracture. 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 Patient is receiving warfarin for thromboprophyla xis postop and also for atrial flutter. Surgery date: 12/19/2016 [x]Fx []THR []TKR Dr. Mancuso Goal INR: 2-3 Enoxaparin bridge: []disch [x]Inr>2 []none Drug Interactions:Amiodarone Sensitizers:Age Recent Labs Lab 12/20/16 0418 12/19/16 1506 12/19/16 0618 12/19/16 0617 HGB 8.7* -- 10.9* -- HCT 26.5* -- 33.4* -- PLT 158 -- 187 -- CREA 1.19 -- 1.23 -- INR 1.67* 1.78* -- 2.59* Date 12/19 12/20 Hgb 10.9 8.7 Hct 33.4 26.5 Platelets 187 158 INR 1.78 1.67 Warfarin Dose 3 mg 3 mg Assessment: Patient being initiated on warfarin for thromboprophylaxis s/p bilateral femur fx repair The INR is below the target range of 2-3 Pt admitted with a therapeutic INR, received 5 mg of Vit K in [place] and given FFP to help reverse anticoagulation in preparation for fx repair Was therapeutic on home regimen of 3 mg daily Most recent ECG shows atrial flutter on 12/18 INR is subtherapeutic today @ 1.67- almost a whole point drop. Pt's INR likely resistant to increasing secondary to Vit K administration jose-op. Therefore, recommending lovenox br idge until INR therapeutic Plan: Initiate warfarin 3 mg po daily; same as home regimen Initiate Lovenox 1mg/kg BID for bridging warfarin INR, Hgb, Hct in am Warfarin education received No; ACCOUNT DEVELOPMENT REPRESENTATIVE Will monitor daily Warfarin Dosing Nomogram Warfarin Dosing Expectations Per P&T-approved Joao Holcomb, FeliD 12/20/2016 12:21 SamuelteAngel moncada MD - 12/20/2016 10:16 AM PDT [facility] HOSPITALIST PROGRESS NOTE Patient: Dora Thomason : 1930: Age: 86 y.o. MedRec: [id number] PCP: Carlos Alberto Galeas MD Admission date: 12/18/2016 Hospital day # : 2 Physician author: Angel Hendrix MD Today: 12/20/2016 SUBJECTIVE: Seen this AM, hypotensive SBP in 80s He did not get his AM anti-HTN medications He denies chest pain ,dyspnea No abdominal pain VITALS: Temp: (!) 38.2 C (100.8 F), Pulse: 104, Resp: 18, BP: (!) 89/66, SpO2 95 % on nasal can nula at flow rate 3L/min Temp Min: 35.5 C (95.9 F) Max: 38.2 C (100.8 F) Weight: 78 kg (172 lb) I/O last 3 completed shifts: In: 5220 [P.O.:700; I.V.:3050; Blood:970; IV Piggyback:500] Out: 3400 [Urine:3000; Blood:400] I/O this shift: In: 340 [P.O.:340] Out: 200 [Urine:200] PHYSICAL EXAM: General: AAO x3, appears weak Cardiovascular: S1, s2, no murmurs Respiratory: Good air entry, no wheezing or rhonchi Abdomen: Soft, bs + Extremities: Warm, no edema, Right foot psot op dressing in place Skin: Echymotic lesion bilateral hands /arms / Neurological: No focal deficits DIAGNOSTIC STUDIES: Available data and images were reviewed personally. Significant results and findings are a ddressed here or in the Assessment and Plan. Recent Results (from the past 24 hour(s)) Protime INR Result Value Ref Range PROTIME 21.2 (H) 11.3 - 13.9 seconds INR 1.78 (H) 0.90 - 1.10 Red Blood Cells (PRBC) - Crossmatch Result Value Ref Range Product Code K9805I71 UNIT # [id number] UNIT ABO O UNIT RH POS CROSSMATCH INTERP Compatible Unit Status Crossmatched Blood Product [facility] OPOS Blood Product Expiration Date and Time Product Blood Type Barcode 5100 Product Code W8852W53 UNIT # [id number] UNIT ABO O UNIT RH POS CROSSMATCH INTERP Compatible Unit Status Crossmatched Blood Product [facility] OPOS Blood Product Expiration Date and Time Product Blood Type Barcode 5100 Basic Metabolic Panel Result Value Ref Range NA 139 136 - 149 mmol/L K 4.1 3.5 - 5.1 mmol/L CL 106 98 - 109 mmol/L CO2 24 24 - 31 mmol/L ANION GAP 9 3 - 16 mmol/L GLUCOSE 119 (H) 70 - 109 mg/dL BUN 17 7 - 18 mg/dL Creatinine, Serum/Plasma 1.19 0.60 - 1.30 mg/dL eGFR if not 58 (L) >=60 mL/min/1.73m2 CALCIUM 8.1 (L) 8.3 - 10.5 mg/dL BUN/CREA 14.3 CBC no Differential Result Value Ref Range WBC 8.0 4.0 - 11.0 K/uL RBC 2.87 (L) 4.30 - 5.70 M/uL Hgb 8.7 (L) 13.5 - 18.0 g/dL Hct 26.5 (L) 40.0 - 51.0 % MCV 92.5 83.0 - 101.0 fL MCH 30.4 28.0 - 35.0 pg MCHC 32.8 32.0 - 36.0 g/dL RDW-CV 15.9 (H) <15.0 % Platelet Count 158 140 - 440 K/uL MPV 7.7 fL Protime INR Result Value Ref Range PROTIME 20.1 (H) 11.3 - 13.9 seconds INR 1.67 (H) 0.90 - 1.10 PRODUCT: Plasma Result Value Ref Range Product Code E5916F16 UNIT # [id number] UNIT ABO O UNIT RH POS Unit Status Transfused Blood Product [facility] Blood Product Expiration Date and Time Product Blood Type Barcode 5100 Product Code O1159H46 UNIT # [id number] UNIT ABO O UNIT RH POS Unit Status Transfused Blood Product [facility] Blood Product Expiration Date and Time Product Blood Type Barcode 5100 Product Code K7985Y64 UNIT # [id number] UNIT ABO O UNIT RH POS Unit Status Transfused Blood Product [facility] Blood Product Expiration Date and Time [id number] Product Blood Type Barcode 5100 Product Code K2685C15 UNIT # [id number] UNIT ABO O UNIT RH POS Unit Status Crossmatched Blood Product [facility] Blood Product Expiration Date and Time [id number] Product Blood Type Barcode 5100 Xr Chest Pa Or Ap Result Date: 12/19/2016 External films for comparison only - no result from [facility]. Xr Femur Left 2+vw Result Date: 12/19/2016 XR FEMUR LEFT 2+VW 12/19/2016 4:30 PM HISTORY: intra op. COMPARISON: None. FINDINGS: Intraop erative x-rays show placement of an intramedullary yulisa through the left femur. IMPRESSION - ORIF of left femur. Dictated and Signed by: Nkiko Morejon MD Electronically signed: 7 7:22 PM Xr Femur Left 2+vw Result Date: 12/19/2016 External films for comparison only - no result from Alex. Xr Femur Right 2+vw Result Date: 12/19/2016 XR FEMUR RIGHT 2+VW 12/19/2016 4:30 PM HISTORY: intra op. COMPARISON: None. FINDINGS: Intrao perative x-rays show placement of an intramedullary yulisa through the right femur. IMPRESSION - ORIF of right femur. Dictated and Signed by: Nikko Morejon MD Electronically signed: 2016 7:22 PM Xr Femur Right 2+vw Result Date: 12/19/2016 External films for comparison only - no result from Alex. Fl C-arm Stats No Charge Result Date: 12/19/2016 No Radiologist interpretation, please see Chart Review. Current Facility-Administered Medications: amiodarone 200 mg Oral Daily atorvaSTATin 20 mg Oral Nightly docusate sodium 100 mg Oral BID PRN fentaNYL (PF) 25-50 mcg Intravenous Q1H PRN lactated ringers Intravenous Continuous ondansetron 4 mg Oral Q6H PRN ondansetron 4 mg Intravenous Q6H PRN oxyCODONE 5-10 mg Oral Q4H PRN pharmacy to dose warfarin Other Pharmacy Consult polyethylene glycol 17 g Oral Daily PRN senna 8.6 mg Oral BID PRN sodium chloride 0.9% 500 mL Intravenous Once sodium chloride 0.9% Intravenous Continuous warfarin 3 mg Oral Daily - Warfarin ASSESSMENT and PLAN: Active Hospital Problems Diagnosis Anticoagulant long-term use Atrial flutter Femur fracture, left *Femur fracture, right Resolved Hospital Problems Diagnosis Date Noted Date Resolved No resolved problems to display. This is pleasant 86 y/o M with PMHx. Of HTN, A. Fib on AC with Bilateral Femur fractures a fter mechanical fall. Hemodynamically unstable. ID He is post-op day 1. Currently he is running hypotensive, and now spiking fevers. He is s/p 1.5 L fluid boluses with no improvement in Hemodynamics. -Get blood cultures, UA, lactat, Procalcitionin,CMP. He does have acute blood loss anemia 2 /2 to surgery which can also explain his hypotension. -CXR reviewed by me., noted to have right basilar airspace disease. -Start IV antibiotics after blood cultures are drawn., to start Azithro/Rocephin -Transfuse 1 unit of Packed red blood cells -If hemodynamics does not improve after transfusion - To start Vasopressor for BP support. -C/w Statin for HLD -Hold all his anti-HTN medications -Diet as tolerated Cardiovascular -Est. A. Flutter -C/w Amiodarone and coumadin ( INR is sup therapeutic and he has received FFP perioperative ly. Start Lovenox -coumadin bridge. Given high risk of PE post OP) -pharmacy follow up appreciated Ortho -bilateral fractures s/p repair -Pain control -Ortho follow up -Incentive spirometry Continue ICU monitoring Prognosis Guarded Total time of approximately 30 minutes was spent with the patient and/or patient's family, and/or on the patient's floor/unit, of which more than 50% was spent counseling and/or coord ination the patient's care as outlined above. Angel Hendrix 12/20/2016 10:20 [facility] Addendum Right basilar pneumonia. Lambert Smith MD - 12/20/2016 7:35 AM PDTFormatting of this note might be different fr om the original. Subjective: Pain well controlled. C/o sore throat Objective: Patient Vitals for the past 24 hrs: BP Temp Temp src Pulse Resp SpO2 Weight 06/01/17 0735 - (!) 38.1 C (100.6 F) - 109 15 96 % - 12/20/16 0700 (!) 87/64 (!) 38 C (100.4 F) - 88 19 98 % - 12/20/16 0600 94/61 37.9 C (100.2 F) - 101 25 97 % - 12/20/16 0500 (!) 86/66 37.9 C (100.2 F) - 103 20 96 % - 12/20/16 0422 (!) 89/54 37.8 C (100 F) - 92 18 99 % 84.1 kg (185 lb 6.5 oz) 12/20/16 0340 (!) 88/55 37.7 C (99.9 F) - 102 24 96 % - 12/20/16 0335 (!) 81/54 37.6 C (99.7 F) - 98 21 98 % - 12/20/16 0255 94/65 37.5 C (99.5 F) - 103 21 98 % - 12/20/16 0200 102/55 37.5 C (99.5 F) - 95 18 98 % - 12/20/16 0106 - - - 96 23 98 % - 12/20/16 0100 106/66 37.3 C (99.1 F) - 102 21 97 % - 12/20/16 0030 103/64 37 C (98.6 F) - 99 20 96 % - 12/20/16 0015 104/73 37 C (98.6 F) - 89 16 96 % - 12/20/16 0000 104/72 37 C (98.6 F) - 93 19 96 % - 12/19/16 2345 107/74 36.9 C (98.4 F) - 101 19 96 % - 12/19/16 2333 101/72 36.8 C (98.2 F) Oral 86 18 96 % - 12/19/16 2200 114/67 - - 101 27 94 % - 12/19/165 113/71 - - 114 26 94 % - 12/19/160 115/79 - - 97 16 94 % - 12/19/162127 - - - 116 23 96 % - 05/31/17 2115 100/78 - - 105 22 94 % - 12/19/16 2100 100/75 - - 110 12 94 % - 12/19/16 2045 107/76 35.5 C (95.9 F) - 105 16 94 % 83.4 kg (183 lb 13.8 oz) 12/19/16 2015 107/75 - - 104 15 92 % - 12/19/161999 134/65 - - 108 14 (!) 86 % - 12/19/16 1950 105/74 - - 111 18 93 % - 12/19/16 1945 124/69 - - 109 20 - - 12/19/16 194 126/75 - - 107 15 93 % - 12/19/16 1939 121/59 36.1 C (97 F) Temporal 101 20 96 % - 12/19/16 1935 121/59 - - 98 18 (!) 73 % - 12/19/16 1439 137/83 36.7 C (98.1 F) Temporal 105 14 - - 12/19/16 1430 147/80 37.4 C (99.3 F) - 93 16 94 % - 12/19/16 1415 131/73 37.3 C (99.1 F) - 98 15 97 % - 12/19/16 0935 - - - 106 20 94 % - 12/19/16 0930 - - - 107 20 97 % - 12/19/16 0800 135/75 36.6 C (97.9 F) Oral 95 20 96 % - Recent Results (from the past 24 hour(s)) Protime INR Result Value Ref Range PROTIME 21.2 (H) 11.3 - 13.9 seconds INR 1.78 (H) 0.90 - 1.10 Red Blood Cells (PRBC) - Crossmatch Result Value Ref Range Product Code K0997W81 UNIT # [id number] UNIT ABO O UNIT RH POS CROSSMATCH INTERP Compatible Unit Status Crossmatched Blood Product [facility] Blood Product Expiration Date and Time Product Blood Type Barcode 5100 Product Code J1964V13 UNIT # [id number] UNIT ABO O UNIT RH POS CROSSMATCH INTERP Compatible Unit Status Crossmatched Blood Product [facility] Blood Product Expiration Date and Time Product Blood Type Barcode 5100 Basic Metabolic Panel Result Value Ref Range NA 139 136 - 149 mmol/L K 4.1 3.5 - 5.1 mmol/L CL 106 98 - 109 mmol/L CO2 24 24 - 31 mmol/L ANION GAP 9 3 - 16 mmol/L GLUCOSE 119 (H) 70 - 109 mg/dL BUN 17 7 - 18 mg/dL Creatinine, Serum/Plasma 1.19 0.60 - 1.30 mg/dL eGFR if not 58 (L) >=60 mL/min/1.73m2 CALCIUM 8.1 (L) 8.3 - 10.5 mg/dL BUN/CREA 14.3 CBC no Differential Result Value Ref Range WBC 8.0 4.0 - 11.0 K/uL RBC 2.87 (L) 4.30 - 5.70 M/uL Hgb 8.7 (L) 13.5 - 18.0 g/dL Hct 26.5 (L) 40.0 - 51.0 % MCV 92.5 83.0 - 101.0 fL MCH 30.4 28.0 - 35.0 pg MCHC 32.8 32.0 - 36.0 g/dL RDW-CV 15.9 (H) <15.0 % Platelet Count 158 140 - 440 K/uL MPV 7.7 fL Protime INR Result Value Ref Range PROTIME 20.1 (H) 11.3 - 13.9 seconds INR 1.67 (H) 0.90 - 1.10 PRODUCT: Plasma Result Value Ref Range Product Code C0586U26 UNIT # [id number] UNIT ABO O UNIT RH POS Unit Status Transfused Blood Product [facility] OPOS Blood Product Expiration Date and Time Product Blood Type Barcode 5100 Product Code A5976X09 UNIT # [id number] UNIT ABO O UNIT RH POS Unit Status Transfused Blood Product [facility] Blood Product Expiration Date and Time Product Blood Type Barcode 5100 Product Code U0642J07 UNIT # [id number] UNIT ABO O UNIT RH POS Unit Status Transfused Blood Product [facility] OPOS Blood Product Expiration Date and Time Product Blood Type Barcode 5100 Product Code A8523J45 UNIT # [id number] UNIT ABO O UNIT RH POS Unit Status Crossmatched Blood Product [facility] Blood Product Expiration Date and Time [id number] Product Blood Type Barcode 5100 Bilateral lower extremities: Dressings: clean, dry and intact Sensation: intact all toes bilaterally Motor: able to flex/extend toes, plantar/dorsiflex ankle, + EHL Bilaterally Circulation: capillary refill < 2 seconds in toes bilaterally Assessment: POD #1 IM fixation of bilateral femur fractures. Doing remarkably well so far. Acute blood loss anemia. Plan: Mobilize as able. Back on warfarin for DVT prophylaxis. Follow HCT. Lambert Mancuso MD DATE/TIME: 12/20/2016 7:35 Juan J Keith, TORPEDO WORKER - 12/19/2016 9:31 PM PDT Severity Score 3 Class 1 Severity Score 0-4 ITEM 0 1 2 3 4 0 [...] Weak, ineffective Non-spontaneous or may require suctioning 00 Sputum None Scant / Thin White/clear Moderate Beige/ yellow Large / Thick Dark Green/Brown Copious / Plugs Hemoptysis compa 0 LOC Alert, oriented, cooperative Disoriented, follows commands Obtunded, arousable, follo ws commands Obtunded, uncooperative, sedated Comatose 2 Oxygen Demand Room air Baseline 1-2 liters 3-6 liters >7 Liters Oxymizer to > 55% 60% or greater Total Severity Score (SS) Class 0-3 1 4-7 2 8-11 3 12-14 4 15+ 5 Jordan Garnett, Danielle rmD - 12/19/2016 8:53 PM PDT WARFARIN PER PHARMACY PROTOCOL: Subjective/Objective: Dora Thomason is a 86 y.o. male admitted on 12/18/2016 for orthopedic surgery secondar y to femoral fracture. 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 Patient is receiving warfarin for thromboprophyla xis postop and also for atrial flutter. Surgery date: 12/19/2016 [x]Fx []THR []TKR Dr. Mancuso Goal INR: 2-3 Enoxaparin bridge: []disch []Inr>2 [x]none Drug Interactions:Amiodarone Sensitizers:Age Recent Labs Lab 12/19/16 1506 12/19/16 0618 12/19/16 0617 HGB -- 10.9* -- HCT -- 33.4* -- PLT -- 187 -- CREA -- 1.23 -- INR 1.78* -- 2.59* Date 12/19 Hgb 10.9 Hct 33.4 Platelets 187 INR 1.78 Warfarin Dose 3 mg Assessment: Patient being initiated on warfarin for thromboprohpylaxis s/p bilateral femur fx repair The INR is above the target range of 2-3 Pt admitted with a therapeutic INR, received 5 mg of Vit K in [place] and given FFP to help reverse anticoagulation in preparation for fx repair Therapeutic on home regimen of 3 mg daily Most recent ECG shows atrial flutter on 12/18; if this continues then recommending loveno x bridge is reasonable until INR therapeutic Pt's INR will likely be resistant to increasing secondary to Vit K; 1st dose initiated a t 0 on 12/19 Plan: Initiate warfarin 3 mg po daily; same as home regimen INR, Hgb, Hct in am Warfarin education received No; ACCOUNT DEVELOPMENT REPRESENTATIVE Will monitor daily Warfarin Dosing Nomogram Warfarin Dosing Expectations Per P&T-approved Jordan Ball PharmD 12/19/2016 20:53 Cheng Delvalle MD - 12/19/2016 12:23 PM PDTFormatting of this note might be different from the [facility] Patient: Dora Thomason : 1930: Age: 86 y.o. MedRec: [id number] PCP: Carlos Alberto Galeas MD Admission date: 12/18/2016 Hospital day # : 1 Physician author: Kamran Tom MD Today: 12/19/2016 SUBJECTIVE: No new complaints No chest pain, no shortness of breath. also indicated that he had stroke when once off the coumadin. HISTORY ON ADMISSION: ( per admitting MD ) This is a 86 y.o. male with a history of atrial fibrillation on Coumadin. He used to take Lasix and potassium but he's off both of those medicines, he says the Lasix made him too diz zy. He takes is atenolol 25 mg daily but if his heart rate is 100 or higher he'll take 50 m g daily. He follows with a loss control technician in [place] Dr. Olivera at [facility]. He has a walker and a cane, usually uses his cane and lost his balance and fell backwards alycia satish both femurs and was seen in [facility] and sent to [place] after contacted Dr. Pricilla Pop He was noted have multiple skin tears. He denied that he passed out and denied any c hest pain or chest pressure. No headache. No hip pain but both femurs hurt, denied arthri tis. He has an incurable skin condition follows with plastic welder Dr. Anuja Kaminski. He use s what sounds like Kenalog cream. He has a remote history of mycoses fungoides diagnosed in [facility] probably 15 or 20 years ago. His habits were negative except for occasional beer. His other medical issues includes , chronic body rash, had angioplasty to a coronary artery 12-15 years ago not had any stent but had peripheral artery disease and had stent and surgery. CURRENT MEDICATIONS: Current Facility-Administered Medications: amiodarone 200 mg Oral Daily amLODIPine 5 mg Oral Daily after dinner atenolol 25 mg Oral Daily atorvaSTATin 20 mg Oral Nightly docusate sodium 100 mg Oral BID PRN fentaNYL (PF) 25-50 mcg Intravenous Q1H PRN furosemide 20 mg Intravenous See Admin Instructions ondansetron 4 mg Oral Q6H PRN ondansetron 4 mg Intravenous Q6H PRN oxyCODONE 5-10 mg Oral Q4H PRN polyethylene glycol 17 g Oral Daily PRN senna 8.6 mg Oral BID PRN sodium chloride 0.9% Intravenous Continuous VITALS: Temp: 36.6 C (97.9 F), Pulse: 106, Resp: 20, BP: 135/75, SpO2 94 % on room air at flow rate 2L/min Temp Min: 35.9 C (96.6 F) Max: 36.6 C (97.9 F) Weight: 78 kg (172 lb) I/O last 3 completed shifts: In: 526 [P.O.:200; I.V.:326] Out: 650 [Urine:650] No intake/output data recorded. Vitals: 12/19/16 1439 BP: 137/83 Pulse: 105 Resp: 14 Temp: 36.7 C (98.1 F) PHYSICAL EXAM: Gen Ejrri - alert, cooperative and no distress Head - Normocephalic, without obvious abnormality, atraumatic Eyes - PERRL, conjunctiva/corneas clear, EOM's intact both eyes ENT - mucous membranes moist Neck - supple Lungs - clear to auscultation, no wheezes or rales and unlabored breathing Heart - no murmurs noted, irregularly irregular rhythm with rate 100 Abdomen - soft, non-tender, without masses or organomegaly Extremities - no peripheral edema, no clubbing or cyanosis Skin - bruises all over Neurologic - Alert and oriented x 3. CN II-XII intact. DIAGNOSTIC STUDIES: Available data and images were reviewed personally. Significant results and findings are a ddressed here or in the Assessment and Plan. Recent Labs Lab 12/19/16617 WBC 6.6 HGB 10.9* HCT 33.4* PLT 187 Recent Labs Lab 12/19/16616 PROTIME 28.5* INR 2.59* No results for input(s): PTT in the last 168 hours. Recent Labs Lab 12/19/16617 GLU 97 NA 139 K 4.5 CL 107 CO2 24 ANIONGAP 8 BUN 19* CREA 1.23 GFRNONAA 56* CALCIUM 8.3 No results for input(s): BNP in the last 168 hours. Recent Labs Lab 12/19/16617 MG 1.8 Recent Results (from the past 24 hour(s)) ECG 12 lead Result Value Ref Range VENTRICULAR RATE EKG 89 BPM ATRIAL RATE 277 BPM QRS DURATION 92 ms Q-T INTERVAL 398 ms Q-T INTERVAL (CORRECTED) 484 ms QRS AXIS -6 degrees T AXIS -12 degrees INTERPRETATION TEXT Atrial flutter with variable AV block Nonspecific ST abnormality Prolonged QT Abnormal ECG No previous ECGs available Confirmed by ALINA DURBIN, ROMERO ([id number]) on 12/19/2016 6:58:41 AM Protime INR Result Value Ref Range Xr Chest Pa Or Ap Result Date: 12/19/2016 External films for comparison only - no result from Alex. Xr Femur Left 2+vw Result Date: 12/19/2016 External films for comparison only - no result from Alex. Xr Femur Right 2+vw Result Date: 12/19/2016 External films for comparison only - no result from Alex. ASSESSMENT and PLAN: Femur fracture, right as well as Femur fracture, left : Surgery planned this afternoon and I will correct his INR and will plan to monitor Atrial flutter with anticoagulant long-term use : His INR is therapeutic and will transfuse 2 units FFP and may need more, will resume post op based on the surgical clearance DVT Prophylaxis : Coumadin with INR goal 2-3 Code Status : Full Code. Total time of approximately 45 minutes was spent with the patient and/or patient's family, and/or on the patient's floor/unit, of which more than 50% was spent counseling and/or coord ination the patient's care as outlined above. Kamran Tom 12/19/2016 12:23 [facility] documented in t his encounter Plan of Treatment +--------+---------+ + + + | Date | Type | Specialty | Care Team | Description | +--------+---------+ + + + | 01/26/ | Office | Cardiology | Paolo Selby, | | | 2020 | Visit | | MD Marjan MARINELLI | | | | | | [place] | | | | | | [id number] | | | | | | | | +--------+---------+ + + + + + +--------+ + + | Name | Type | Priori | Associated Diagnoses | Date/Time | | | | ty | | | + + +--------+ + + | Plasma (FP) - | Blood - | Routin | | 12/19/2016 2:25 PM | | Transfuse | Nursing | e | | PDT | | | Transfusion | | | | + + +--------+ + + | Plasma (FP) - | Blood - | Routin | | 12/19/2016 2:25 PM | | Transfuse | Nursing | e | | PDT | | | Transfusion | | | | + + +--------+ + + | Plasma (FP) - | Blood - | Routin | | 12/19/2016 2:41 PM | | Transfuse | Nursing | e | | PDT | | | Transfusion | | | | + + +--------+ + + | Plasma | Blood - | Routin | | 12/19/2016 4:56 PM | | (FFP-INTRAOP)-Transf | Nursing | e | | PDT | | use | Transfusion | | | | + + +--------+ + + documented as of this encounter Procedures + +--------+ + + + | Procedure Name | Priori | Date/Time | Associated Diagnosis | Comments | | | ty | | | | + +--------+ + + + | PROTIME INR | Routin | 12/31/2016 | | Results for this | | | e | 6:21 AM | | procedure are in the | | | | PDT | | results section. | + +--------+ + + + | CBC WITH | Routin | 12/31/2016 | | Results for this | | DIFFERENTIAL | e | 6:21 AM | | procedure are in the | | | | PDT | | results section. | + +--------+ + + + | COMPREHENSIVE | Routin | 12/31/2016 | | Results for this | | METABOLIC PANEL | e | 6:21 AM | | procedure are in the | | | | PDT | | results section. | + +--------+ + + + | XR CHEST AP PORTABLE | STAT | 12/30/2016 | | Results for this | | | | 4:51 PM | | procedure are in the | | | | PDT | | results section. | + +--------+ + + + | RT EXPIRATORY | Routin | 12/30/2016 | | | | PRESSURE VALVE | e | 10:12 AM | | | | THERAPY | | PDT | | | + +--------+ + + + | PROTIME INR | Routin | 12/30/2016 | | Results for this | | | e | 5:18 AM | | procedure are in the | | | | PDT | | results section. | + +--------+ + + + | CBC WITH | Routin | 12/30/2016 | | Results for this | | DIFFERENTIAL | e | 5:18 AM | | procedure are in the | | | | PDT | | results section. | + +--------+ + + + | BASIC METABOLIC | Routin | 12/30/2016 | | Results for this | | PANEL | e | 5:18 AM | | procedure are in the | | | | PDT | | results section. | + +--------+ + + + | PROTIME INR | Routin | 12/29/2016 | | Results for this | | | e | 3:44 AM | | procedure are in the | | | | PDT | | results section. | + +--------+ + + + | CBC WITH | Routin | 12/29/2016 | | Results for this | | DIFFERENTIAL | e | 3:44 AM | | procedure are in the | | | | PDT | | results section. | + +--------+ + + + | MAGNESIUM | Routin | 12/29/2016 | | Results for this | | | e | 3:44 AM | | procedure are in the | | | | PDT | | results section. | + +--------+ + + + | COMPREHENSIVE | Routin | 12/29/2016 | | Results for this | | METABOLIC PANEL | e | 3:44 AM | | procedure are in the | | | | PDT | | results section. | + +--------+ + + + | PRODUCT: RBC | Routin | 12/28/2016 | | Results for this | | | e | 7:41 AM | | procedure are in the | | | | PDT | | results section. | + +--------+ + + + | PROTIME INR | Routin | 12/28/2016 | | Results for this | | | e | 3:30 AM | | procedure are in the | | | | PDT | | results section. | + +--------+ + + + | CBC WITH | Routin | 12/28/2016 | | Results for this | | DIFFERENTIAL | e | 3:30 AM | | procedure are in the | | | | PDT | | results section. | + +--------+ + + + | MAGNESIUM | Routin | 12/28/2016 | | Results for this | | | e | 3:30 AM | | procedure are in the | | | | PDT | | results section. | + +--------+ + + + | COMPREHENSIVE | Routin | 12/28/2016 | | Results for this | | METABOLIC PANEL | e | 3:30 AM | | procedure are in the | | | | PDT | | results section. | + +--------+ + + + | PROTIME INR | Routin | 12/27/2016 | | Results for this | | | e | 5:39 AM | | procedure are in the | | | | PDT | | results section. | + +--------+ + + + | CBC WITH | Routin | 12/27/2016 | | Results for this | | DIFFERENTIAL | e | 5:39 AM | | procedure are in the | | | | PDT | | results section. | + +--------+ + + + | COMPREHENSIVE | Routin | 12/27/2016 | | Results for this | | METABOLIC PANEL | e | 5:39 AM | | procedure are in the | | | | PDT | | results section. | + +--------+ + + + | ECHO COMPLETE | Routin | 12/26/2016 | | Results for this | | | e | 11:54 AM | | procedure are in the | | | | PDT | | results section. | + +--------+ + + + | OCCULT BLOOD, STOOL, | Routin | 12/26/2016 | | Results for this | | SPECIMEN 1 | e | 11:24 AM | | procedure are in the | | | | PDT | | results section. | + +--------+ + + + | PRODUCT: PLASMA, | Routin | 12/26/2016 | | Results for this | | FROZEN <24 | e | 7:15 AM | | procedure are in the | | | | PDT | | results section. | + +--------+ + + + | PROTIME INR | Routin | 12/26/2016 | | Results for this | | | e | 3:27 AM | | procedure are in the | | | | PDT | | results section. | + +--------+ + + + | CBC WITH | Routin | 12/26/2016 | | Results for this | | DIFFERENTIAL | e | 3:27 AM | | procedure are in the | | | | PDT | | results section. | + +--------+ + + + | COMPREHENSIVE | Routin | 12/26/2016 | | Results for this | | METABOLIC PANEL | e | 3:27 AM | | procedure are in the | | | | PDT | | results section. | + +--------+ + + + | XR HIP LEFT 2-3 | Routin | 12/25/2016 | | Results for this | | VIEWS | e | 6:09 PM | | procedure are in the | | | | PDT | | results section. | + +--------+ + + + | CBC WITH | Routin | 12/25/2016 | | Results for this | | DIFFERENTIAL | e | 6:08 PM | | procedure are in the | | | | PDT | | results section. | + +--------+ + + + | B TYPE NATRIURETIC | Routin | 12/25/2016 | | Results for this | | PEPTIDE | e | 6:08 PM | | procedure are in the | | | | PDT | | results section. | + +--------+ + + + | XR FEMUR RIGHT 2+VW | Routin | 12/25/2016 | | Results for this | | | e | 6:03 PM | | procedure are in the | | | | PDT | | results section. | + +--------+ + + + | PROTIME INR | Routin | 12/25/2016 | | Results for this | | | e | 5:15 PM | | procedure are in the | | | | PDT | | results section. | + +--------+ + + + | TRANSFUSE FROZEN | Routin | 12/25/2016 | | | | PLASMA | e | 4:58 PM | | | | | | PDT | | | + +--------+ + + + | TRANSFUSE FROZEN | Routin | 12/25/2016 | | | | PLASMA | e | 3:36 PM | | | | | | PDT | | | + +--------+ + + + | XR CHEST AP PORTABLE | ROWENA | 12/25/2016 | | Results for this | | | | 2:20 PM | | procedure are in the | | | | PDT | | results section. | + +--------+ + + + | PROTIME INR | Routin | 12/25/2016 | | Results for this | | | e | 3:55 AM | | procedure are in the | | | | PDT | | results section. | + +--------+ + + + | CBC WITH | Routin | 12/25/2016 | | Results for this | | DIFFERENTIAL | e | 3:55 AM | | procedure are in the | | | | PDT | | results section. | + +--------+ + + + | BASIC METABOLIC | Routin | 12/25/2016 | | Results for this | | PANEL | e | 3:55 AM | | procedure are in the | | | | PDT | | results section. | + +--------+ + + + | PRODUCT: RBC | Routin | 12/25/2016 | | Results for this | | | e | 1:15 AM | | procedure are in the | | | | PDT | | results section. | + +--------+ + + + | HEMOGLOBIN AND | Timed | 12/24/2016 | | Results for this | | HEMATOCRIT | | 8:30 PM | | procedure are in the | | | | PDT | | results section. | + +--------+ + + + | TRANSFUSE 2 UNITS | Routin | 12/24/2016 | | | | RED BLOOD CELLS | e | 11:55 AM | | | | | | PDT | | | + +--------+ + + + | URINALYSIS | Routin | 12/24/2016 | | Results for this | | | e | 9:44 AM | | procedure are in the | | | | PDT | | results section. | + +--------+ + + + | XR ABDOMEN PORTABLE | Routin | 12/24/2016 | | Results for this | | | e | 8:00 AM | | procedure are in the | | | | PDT | | results section. | + +--------+ + + + | TYPE AND SCREEN | Routin | 12/24/2016 | | Results for this | | | e | 7:21 AM | | procedure are in the | | | | PDT | | results section. | + +--------+ + + + | PROTIME INR | Routin | 12/24/2016 | | Results for this | | | e | 3:51 AM | | procedure are in the | | | | PDT | | results section. | + +--------+ + + + | CBC WITH | Routin | 12/24/2016 | | Results for this | | DIFFERENTIAL | e | 3:51 AM | | procedure are in the | | | | PDT | | results section. | + +--------+ + + + | BASIC METABOLIC | Routin | 12/24/2016 | | Results for this | | PANEL | e | 3:51 AM | | procedure are in the | | | | PDT | | results section. | + +--------+ + + + | HEMOGLOBIN AND | Timed | 12/23/2016 | | Results for this | | HEMATOCRIT | | 10:03 AM | | procedure are in the | | | | PDT | | results section. | + +--------+ + + + | PROTIME INR | Routin | 12/23/2016 | | Results for this | | | e | 4:35 AM | | procedure are in the | | | | PDT | | results section. | + +--------+ + + + | CBC WITH | Routin | 12/23/2016 | | Results for this | | DIFFERENTIAL | e | 4:35 AM | | procedure are in the | | | | PDT | | results section. | + +--------+ + + + | BASIC METABOLIC | Routin | 12/23/2016 | | Results for this | | PANEL | e | 4:34 AM | | procedure are in the | | | | PDT | | results section. | + +--------+ + + + | PRODUCT: RBC | STAT | 12/23/2016 | | Results for this | | | | 1:15 AM | | procedure are in the | | | | PDT | | results section. | + +--------+ + + + | CBC NO DIFFERENTIAL | Routin | 12/22/2016 | | Results for this | | | e | 8:14 PM | | procedure are in the | | | | PDT | | results section. | + +--------+ + + + | XR CHEST AP PORTABLE | Routin | 12/22/2016 | | Results for this | | | e | 12:59 PM | | procedure are in the | | | | PDT | | results section. | + +--------+ + + + | US EXTREMITY | STAT | 12/22/2016 | | Results for this | | NONVASCULAR LIMITED | | 12:40 PM | | procedure are in the | | RIGHT | | PDT | | results section. | + +--------+ + + + | TRANSFUSE 1 UNIT RED | Routin | 12/22/2016 | | | | BLOOD CELLS | e | 11:43 AM | | | | | | PDT | | | + +--------+ + + + | BASIC METABOLIC | Routin | 12/22/2016 | | Results for this | | PANEL | e | 3:41 AM | | procedure are in the | | | | PDT | | results section. | + +--------+ + + + | PROTIME INR | Routin | 12/22/2016 | | Results for this | | | e | 3:40 AM | | procedure are in the | | | | PDT | | results section. | + +--------+ + + + | CBC WITH | Routin | 12/22/2016 | | Results for this | | DIFFERENTIAL | e | 3:40 AM | | procedure are in the | | | | PDT | | results section. | + +--------+ + + + | XR CHEST AP PORTABLE | [facility] | 12/21/2016 | | Results for this | | | | 12:30 PM | | procedure are in the | | | | PDT | | results section. | + +--------+ + + + | PROTIME INR | Routin | 12/21/2016 | | Results for this | | | e | 3:45 AM | | procedure are in the | | | | PDT | | results section. | + +--------+ + + + | CBC WITH | Routin | 12/21/2016 | | Results for this | | DIFFERENTIAL | e | 3:45 AM | | procedure are in the | | | | PDT | | results section. | + +--------+ + + + | BASIC METABOLIC | Routin | 12/21/2016 | | Results for this | | PANEL | e | 3:45 AM | | procedure are in the | | | | PDT | | results section. | + +--------+ + + + | HEMOGLOBIN AND | Timed | 12/20/2016 | | Results for this | | HEMATOCRIT | | 6:54 PM | | procedure are in the | | | | PDT | | results section. | + +--------+ + + + | TRANSFUSE 1 UNIT RED | Routin | 12/20/2016 | | | | BLOOD CELLS | e | 3:27 PM | | | | | | PDT | | | + +--------+ + + + | CULTURE, BLOOD | STAT | 12/20/2016 | | Results for this | | | | 11:00 AM | | procedure are in the | | | | PDT | | results section. | + +--------+ + + + | XR CHEST AP PORTABLE | Routin | 12/20/2016 | | Results for this | | | e | 10:51 AM | | procedure are in the | | | | PDT | | results section. | + +--------+ + + + | PROCALCITONIN, SERUM | Routin | 12/20/2016 | | Results for this | | | e | 10:50 AM | | procedure are in the | | | | PDT | | results section. | + +--------+ + + + | EXTRA LAVENDER TOP | Routin | 12/20/2016 | | Results for this | | TUBE | e | 10:50 AM | | procedure are in the | | | | PDT | | results section. | + +--------+ + + + | EXTRA GREEN TOP TUBE | Routin | 12/20/2016 | | Results for this | | | e | 10:50 AM | | procedure are in the | | | | PDT | | results section. | + +--------+ + + + | EXTRA BLUE TOP TUBE | Routin | 12/20/2016 | | Results for this | | | e | 10:50 AM | | procedure are in the | | | | PDT | | results section. | + +--------+ + + + | CULTURE, BLOOD | STAT | 12/20/2016 | | Results for this | | | | 10:50 AM | | procedure are in the | | | | PDT | | results section. | + +--------+ + + + | LACTIC ACID | Routin | 12/20/2016 | | Results for this | | | e | 10:45 AM | | procedure are in the | | | | PDT | | results section. | + +--------+ + + + | PRODUCT: PLASMA, | Routin | 12/20/2016 | | Results for this | | FROZEN <24 | e | 7:15 AM | | procedure are in the | | | | PDT | | results section. | + +--------+ + + + | PROTIME INR | Routin | 12/20/2016 | | Results for this | | | e | 4:18 AM | | procedure are in the | | | | PDT | | results section. | + +--------+ + + + | CBC NO DIFFERENTIAL | Routin | 12/20/2016 | | Results for this | | | e | 4:18 AM | | procedure are in the | | | | PDT | | results section. | + +--------+ + + + | BASIC METABOLIC | Routin | 12/20/2016 | | Results for this | | PANEL | e | 4:18 AM | | procedure are in the | | | | PDT | | results section. | + +--------+ + + + | EDITH, MRSA | Routin | 12/19/2016 | | Results for this | | | e | 8:52 PM | | procedure are in the | | | | PDT | | results section. | + +--------+ + + + | XR FEMUR LEFT 2+VW | Routin | 12/19/2016 | | Results for this | | | e | 7:19 PM | | procedure are in the | | | | PDT | | results section. | + +--------+ + + + | XR FEMUR RIGHT 2+VW | Routin | 12/19/2016 | | Results for this | | | e | 7:18 PM | | procedure are in the | | | | PDT | | results section. | + +--------+ + + + | FL NICKY STATS NO | Routin | 12/19/2016 | | Results for this | | CHARGE | e | 7:17 PM | | procedure are in the | | | | PDT | | results section. | + +--------+ + + + | ORIF IM [facility] | | 12/19/2016 | r midshaft femur | | | FEMORAL TROCHANTERIC | | 4:10 PM | fracture L femur fx | | | NAIL | | PDT | | | + +--------+ + + + | ORIF IM [facility] | | 12/19/2016 | r midshaft femur | | | FEMORAL ANTEGRADE | | 4:10 PM | fracture L femur fx | | | | | PDT | | | + +--------+ + + + | MARIA ELENAIME INR | Routin | 12/19/2016 | | Results for this | | | e | 3:06 PM | | procedure are in the | | | | PDT | | results section. | + +--------+ + + + | CBC NO DIFFERENTIAL | Routin | 12/19/2016 | | Results for this | | | e | 6:18 AM | | procedure are in the | | | | PDT | | results section. | + +--------+ + + + | TYPE AND SCREEN | Routin | 12/19/2016 | | Results for this | | | e | 6:18 AM | | procedure are in the | | | | PDT | | results section. | + +--------+ + + + | MAGNESIUM | Routin | 12/19/2016 | | Results for this | | | e | 6:18 AM | | procedure are in the | | | | PDT | | results section. | + +--------+ + + + | BASIC METABOLIC | Routin | 12/19/2016 | | Results for this | | PANEL | e | 6:18 AM | | procedure are in the | | | | PDT | | results section. | + +--------+ + + + | PROTIME INR | Routin | 12/19/2016 | | Results for this | | | e | 6:17 AM | | procedure are in the | | | | PDT | | results section. | + +--------+ + + + | ECG 12 LEAD | Routin | 12/18/2016 | | Results for this | | | e | 10:24 PM | | procedure are in the | | | | PDT | | results section. | + +--------+ + + + | RESPIRATORY THERAPY | Routin | 12/18/2016 | | | | COMMUNICATION | e | 8:52 PM | | | | | | PDT | | | + +--------+ + + + | XR CHEST PA OR AP | Routin | 12/18/2016 | | Results for this | | | e | 5:50 PM | | procedure are in the | | | | PDT | | results section. | + +--------+ + + + | XR FEMUR LEFT 2+VW | Routin | 12/18/2016 | | Results for this | | | e | 5:30 PM | | procedure are in the | | | | PDT | | results section. | + +--------+ + + + | XR FEMUR RIGHT 2+VW | Routin | 12/18/2016 | | Results for this | | | e | 5:20 PM | | procedure are in the | | | | PDT | | results section. | + +--------+ + + + | LABS - EXTERNAL SCAN | | 12/18/2016 | | Results for this | | | | 12:00 AM | | procedure are in the | | | | PDT | | results section. | + +--------+ + + + | ECG - EXTERNAL SCAN | | 12/18/2016 | | Results for this | | | | 12:00 AM | | procedure are in the | | | | PDT | | results section. | + +--------+ + + + documented in this encounter Results Protime INR (12/31/2016 6:21 AM PDT) + + + + + + | Component | Value | Ref Range | Performed | Pathologist | | | | | At | Signature | + + + + + + | Prothrombin | 14.7 (H) | 11.3 - 13.9 | [facility] | | | Time | | seconds | [facility] | | | | | | [facility] | | | | [facility] - | | | | | | LABORATORY | | + + + + + + | INR | 1.12 (H)Comment: Usual | 0.90 - 1.10 | [facility] | | | | Oral Anticoagulation | | [facility] | | | | Range: 2.0 - [...] | + + + + + | [facility] | [address] | [place] | [phone] | | [facility] | | [address] | | | - LABORATORY | | | | + + + + + Comprehensive Metabolic Panel (12/31/2016 6:21 AM PDT) + + + + + + | Component | Value | Ref Range | Performed | Pathologist | | | | | At | Signature | + + + + + + | Na | 137 | 136 - 149 | [facility] | [...] + + + + | CO2 | 29 | 24 - 31 mmol/L | [facility] | | | | | | [facility] | | [facility] | [facility] - | | | | | | LAB[facility]ATORY | | + + + + + + | Anion Gap | 8 | 3 - 16 mmol/L | [facility] | | | | | | [facility] | | | [facility] | [facility] | | | | | [facility] - | | | | | | LABORATORY | | + + + + + + | Glucose | 94 | 70 - 109 mg/dL | [facility] | | | | | | [facility] | | | | | | [facility] | | | | | | [facility] - | | | | | | LABORATORY | | + + + + + + | BUN | 22 (H) | 7 - 18 mg/dL | [facility] | | | | | | [facility] | | | | | | [facility] | | | | | | [facility] - | | | | | | LABORATORY | | + + + + + + | Creatinine | 1.19 | 0.60 - 1.30 | [facility] | | | | | mg/dL | [facility] | | | [facility] | | | | | | [facility] - | | | | | | LAB[facility]ATORY | | + + + + + + | eGFR if not | 58 (L)Comment: | >=60 | [facility] | | | | GLOMERULAR FILTRATION | mL/min/1.73m2 | [facility] | | | [facility] | RATE,ESTIMATED | | MEDICAL | | | | mL/min/1.09b8Wwxu than | | CENTER - | | [...] + + | Calcium | 8.6 | 8.3 - 10.5 | [facility] | | | | | mg/dL | [facility] | | | | | | [facility] | | | | | | C[facility] - | | | | | | LABORATORY | | + + + + + + | Albumin | 2.3 (L) | 3.2 - 5.0 g/dL | [facility] | | | | | | [facility] | | | | | | [facility] | | | | | | [facility] - | | | | | | LABORATORY | | + + + + + + | Bilirubin | 1.2 | 0.1 - 1.5 mg/dL | [facility] | | | Total | | | [facility] | | | | | | [facility] | | | | | | [facility] - | | | | | | LABORATORY | | + + + + + + | Total | 5.1 (L) | 6.0 - 7.8 g/dL | [facility] | | | Protein | | | [facility] | | | | | | [facility] | | | | | | C[facility] - | | | | | | LABORATORY | | + + + + + + | AST | 50 (H) | 10 - 42 U/L | [facility] | | | | | | [facility] | | | | | | [facility] | | | | | | [facility] - | | | | | | LABORATORY | | + + + + + + | ALT | 55 (H) | 6 - 45 U/L | [facility] | | | | | | [facility] | | [facility] | | | [facility] | | | | | | [facility] - | | | | | | LABORATORY | | + + + + + + | Alkaline | 122 (H) | 40 - 110 U/L | [...] + + + + | BUN/Creatin | 18.5 | | [facility] | | | ine [...] ST. | [address] | [place], [place] | [phone] | | [facility] | | [address] | | | - LABORATORY | | | | + + + + + CBC with Differential (12/31/2016 6:21 AM PDT) + + + + + + | Component | Value | Ref Range | Performed | Pathologist | | | | | At | Signature | + + + + + + | WBC | 9.9 | 4.0 - 11.0 K/uL | [facility] | | | | | | [facility] | | | | | | [facility] | | | | | | [facility] - | | | | | | LABORATORY | | + + + + + + | RBC | 3.59 (L) | 4.30 - 5.70 | [facility] | | | | | M/uL | [facility] | | | | | | [facility] | | | | | | CENTER - | | | | | | LABORATORY | | + + + + + + | Hemoglobin | 10.6 (L) | 13.5 - 18.0 | [facility] | | | | | g/dL | [facility] | | | | | | [facility] | | | | | | CENTER - | | | | | | LABORATORY | | + + + + + + | Hematocrit | 32.1 (L) | 40.0 - 51.0 % | [facility] | | | | | | [facility] | | | | | | [facility] | | | | | | [facility] - | | | | | | LABORATORY | | + + + + + + | MCV | 89.4 | 83.0 - 101.0 fL | [facility] | | | | | | [facility] | | | | | | [facility] | | | | | | [facility] - | | | | | | LABORATORY | | + + + + + + | MCH | 29.5 | 28.0 - 35.0 pg | [facility] [...] + + + + | RDW-CV | 16.0 (H) | <15.0 % | [facility] | | | | | | [facility] | | | | | | [facility] | | | | | | [facility] - | | | | | | LABORATORY | | + + + + + + | Platelet | 389 | 140 - 440 K/uL | [facility] | | | Count | | | [facility] | | | | | | [facility] | | | | | | CENTER - | | | | | | LABORATORY | | + + + + + + | MPV | 8.5 | fL | [facility] | | | | | | [facility] | | | | | | [facility] | | | | | | [facility] - | | | | | | LABORATORY | | + + + + + + | % | 77.3 | 45.0 - 82.0 % | [facility] | | | Neutrophils | | | [facility] | | | | | | [facility] | | | | | | CENTER - | | | | | | LABORATORY | | + + + + + + | % | 7.1 (L) | 20.0 - 45.0 % | [facility] | | | Lymphocytes | | | [facility] | | | | | | [facility] | | | | | | CENTER - | | | | | | LABORATORY | | + + + + + + | % Monocytes | 9.6 | 4.0 - 12.0 % | [facility] | | | | | | [facility] | | | | | | [facility] | | | | | | [facility] - | | | | | | LABORATORY | | + + + + + + | % | 5.4 (H) | 0.0 - 5.0 % | [facility] | | | Eosinophils | | | [facility] | | | | | | [facility] | | | | | | CENTER - | | | | | | LABORATORY | | + + + + + + | % Basophils | 0.6 | 0.0 - 1.0 % | [facility] | | | | | | [facility] | | | | | | [facility] | | | | | | CENTER - | | | | | | LABORATORY | | + + + + + + | Absolute | 7.70 | 1.80 - 8.50 | [facility] | | | Neutrophils | | K/uL | [facility] | | | | | | [facility] | | | | | | CENTER - | | | | | | LABORATORY | | + + + + + + | Absolute | 0.70 | 0.60 - 3.20 | [facility] | | | Lymphocytes | | K/uL | [facility] | | | | | | [facility] | | | | | | CENTER - | | | | | | LABORATORY | | + + + + + + | Absolute | 1.00 | 0.00 - 1.00 | [facility] | [...] | 0.10 | 0.00 - 0.10 | [facility] | | | Basophils | | K/uL [...] | + + + + + | [facility] | [address] | [place] | [phone] | | [facility] | | [address] | | | - LABORATORY | | | | + + + + + XR Chest AP Portable (12/30/2016 4:51 PM PDT) + + | Specimen | + + | | + + + + + | Narrative | Performed At | + + + | XR CHEST AP PORTABLE 12/30/2016 4:38 PM HISTORY: attempting to | [facility] | | pull picc line. met resistance need image to confirm no kinks or | | | loops in tubing. COMPARISON: 12/25/2016 Findings: There is a | | | nonspecific mild diffuse reticular opacification pattern throughout | | | both lungs. Cardiac silhouette appears mildly enlarged. Aortic | | | calcifications are present. No evidence of pneumothorax or pleural | | | effusion. No evidence of focal consolidation. Bones and soft tissues | | | are unchanged. IMPRESSION - Right upper extremity approach PICC | | | tip terminates in the right subclavian/innominate vein junction. | | | Stable mild cardiomegaly. Mild interstitial prominence/reticular | | | opacities seen scattered throughout both lungs, improved since | | | 12/25/2016. Dictated and Signed by: Ralph Kennedy MD | | | Electronically signed: 12/30/2016 9:46 PM | | + + + + + | Procedure Note | + + | Stan, Rad Results In - 12/30/2016 9:49 PM PDT XR CHEST AP PORTABLE 12/30/2016 4:38 PM | | | | HISTORY: attempting to pull picc line. met resistance need image to confirm no | | kinks or loops in tubing. | | | | COMPARISON: 12/25/2016 | | | | Findings: There is a nonspecific mild diffuse reticular opacification pattern | | throughout both lungs. Cardiac silhouette appears mildly enlarged. Aortic | | calcifications are present. No evidence of pneumothorax or pleural effusion. No | | evidence of focal consolidation. Bones and soft tissues are unchanged. | | | | IMPRESSION - | | Right upper extremity approach PICC tip terminates in the right | | subclavian/innominate vein junction. | | | | Stable mild cardiomegaly. | | | | Mild interstitial prominence/reticular opacities seen scattered throughout both | | lungs, improved since 12/25/2016. | | | | Dictated and Signed by: Ralph Kennedy MD | | Electronically signed: 12/30/2016 9:46 PM | + + + +---------+ + + | Performing | Address | City/State/Zipcode | Phone Number | | Organization | | | | + +---------+ + + | [facility] | | | | + +---------+ + + Protime INR (12/30/2016 5:18 AM PDT) + + + + + + | Component | Value | Ref Range | Performed | Pathologist | | | | | At | Signature | + + + + + + | Prothrombin | 15.1 (H) | 11.3 - 13.9 | [facility] | | | Time | | seconds | [facility] | | | | | | [facility] | | | | | | [facility] - | | | | | | LABORATORY | | + + + + + + | INR | 1.16 (H)Comment: Usual | 0.90 - 1.10 | [...] + | [facility] | [address] | [place] | [phone] | | [facility] | | [address] | | | - LABORATORY | | | | + + + + + Basic Metabolic Panel (12/30/2016 5:18 AM PDT) + + + + + [...] + + + + | CO2 | 29 | 24 - 31 mmol/L | [facility] [...] + + + | Glucose | 102 | 70 - 109 mg/dL | [facility] | | | | | | [facility] | | | | | | [facility] | | | | | | CENTER - | | | | | | LABORATORY | | + + + + + + | BUN | 22 (H) | 7 - 18 mg/dL | [facility] | | | | | | [facility] | | | | | | [facility] | | | | | | CENTER - | | | | | | LABORATORY | | + + + + + + | Creatinine | 1.14 | 0.60 - 1.30 | [facility] | | | | | mg/dL | [facility] | | | | | | [facility] | | | | | | CENTER - | | | | | | LABORATORY | | + + + + + + | eGFR if not | >60Comment: GLOMERULAR | >=60 | [facility] | | | | FILTRATION | mL/min/1.73m2 | [facility] | | | [facility] | RATE,ESTIMATED | | MEDICAL | | | | mL/min/1.00u5Whnq than | | CENTER - | | [...] + + + + | Calcium | 8.5 | 8.3 - 10.5 | [facility] | | | | | mg/dL | [facility] | | | | | | [facility] | | | | | | CENTER - | | | | | | LABORATORY | | + + + + + + | BUN/Creatin | 19.3 | | [facility] | | | ine Ratio | | | [facility] | | [...] ST. | [address] | [place], [place] | [phone] | | [facility] | | [address] | | | - LABORATORY | | | | + + + + + CBC with Differential (12/30/2016 5:18 AM PDT) + + + + + + | Component | Value | Ref Range | Performed | Pathologist | | | | | At | Signature | + + + + + + | WBC | 8.8 | 4.0 - 11.0 K/uL | [facility] | | | | | | [facility] | | | | | | [facility] | | | | | | [facility] - | | | | | | LABORATORY | | + + + + + + | RBC | 3.38 (L) | 4.30 - 5.70 | [facility] | | | | | M/uL | [facility] | | | | | | [facility] | | | | | | CENTER - | | | | | | LABORATORY | | + + + + + + | Hemoglobin | 10.0 (L) | 13.5 - 18.0 | [facility] | | | | | g/dL | [facility] | | | | | | [facility] | | | | | | CENTER - | | | | | | LABORATORY | | + + + + + + | Hematocrit | 30.4 (L) | 40.0 - 51.0 % | [facility] | | | | | | [facility] | | | | | | [facility] | | | | | | C[facility] - | | | | | | LABORATORY | | + + + + + + | MCV | 89.8 | 83.0 - 101.0 fL | [facility] | | | | | | [facility] | | | | | | [facility] | | | | | | C[facility] - | | | | | | LABORATORY | | + + + + + + | MCH | 29.5 | 28.0 - 35.0 pg | [facility] | | | | | | [facility] | | | | | | [facility] | | | | | | [facility] - | | | | | | LABORATORY | | + + + + + + | MCHC | 32.8 | 32.0 - 36.0 | [facility] | [...] + + + + | Platelet | 367 | 140 - 440 K/uL | [facility] | | | Count | | | [facility] | | | | | | [facility] | | | | | | CENTER - | | | | | | LABORATORY | | + + + + + + | MPV | 7.9 | fL | [facility] | | | | | | [facility] | | | | | | [facility] | | | | | | CENTER - | | | | | | LABORATORY | | + + + + + + | % | 76.1 | 45.0 - 82.0 % | [facility] | | | Neutrophils | | | [facility] | | | | | | [facility] | | | | | | CENTER - | | | | | | LABORATORY | | + + + + + + | % | 6.9 (L) | 20.0 - 45.0 % | [facility] | | | Lymphocytes | | | [facility] | | | | | | [facility] | | | | | | CENTER - | | | | | | LABORATORY | | + + + + + + | % Monocytes | 11.5 | 4.0 - 12.0 % | [facility] | | | | | | [facility] | | | | | | [facility] | | | | | | C[facility] - | | | | | | LABORATORY | | + + + + + + | % | 4.8 | 0.0 - 5.0 % | [facility] | | | Eosinophils | | | [facility] | | | | | | [facility] | | | | | | CENTER - | | | | | | LABORATORY | | + + + + + + | % Basophils | 0.7 | 0.0 - 1.0 % | [facility] [...] + + | Absolute | 0.60 | 0.60 - 3.20 | [facility] | | | Lymphocytes | | K/uL | [facility] | | | | | | [facility] | | | | | | CENTER - | | | | | | LABORATORY | | + + + + + + | Absolute | 1.00 | 0.00 - 1.00 | [facility] | | | Monocytes | | K/uL | [facility] | | | | | | [facility] | | | | | | CENTER - | | | | | | LABORATORY | | + + + + + + | Absolute | 0.40 | 0.00 - 0.40 | [facility] | [...] [address] | [place] | [phone] | | [facility] | | [address] | | | - LABORATORY | | | | + + + + + Maria Elenaime INR (12/29/2016 3:44 AM PDT) + + + + + + | Component | Value | Ref Range | Performed | Pathologist | | | | | At | Signature | + + + + + + | Prothrombin | 15.1 (H) | 11.3 - 13.9 | [facility] | | | Time | | seconds | [facility] | | | | | | [facility] | | | | | | CENTER - | | | | | | LABORATORY | | + + + + + + | INR | 1.16 (H)Comment: Usual | 0.90 - 1.10 | [...] [address] | [place] | [phone] | | [facility] | | [address] | | | - LABORATORY | | | | + + + + + Magnesium (12/29/2016 3:44 AM PDT) + +---------+ + + + | Component | Value | Ref Range | Performed | Pathologist | | | | | At | Signature | + +---------+ + + + | Magnesium | 1.5 (L) | 1.8 - 2.5 mg/dL | [facility] | | | | | | [facility] | [facility] | | | | | | [facility] - | | | | | | LABORATORY | | + +---------+ + + + + + | Specimen | + + | Blood | + + + + + + + | Performing | Address | City/State/[facility] | Phone Number | | Organization | | | | + + + + + | [facility] | [address] | [place] | [phone] | | [facility] | | [address] | | | - LABORATORY | | | | + + + + + Comprehensive Metabolic Panel (12/29/2016 3:44 AM PDT) + + + + + + | Component | Value | Ref Range | Performed | Pathologist | | | | | At | Signature | + + + + + + | Na | 137 | 136 - 149 | [facility] | | | | | mmol/L | [facility] | | | | | | [facility] | | | | | | CENTER - | | | | | | LABORATORY | | + + + + + + | K | 3.4 (L) | 3.5 - 5.1 | [facility] | | | | | mmol/L | [facility] | | | | | | [facility] | | | | | | CENTER - | | | | | | LABORATORY | | + + + + + + | Cl | 97 (L) | 98 - 109 mmol/L | [facility] | | | | | | [facility] | | | | | | [facility] | | | | | | CENTER - | | | | | | LABORATORY | | + + + + + + | CO2 | 31 | 24 - 31 mmol/L | [facility] [...] + + + + | Glucose | 97 | 70 - 109 mg/dL | [facility] | | | | | | [facility] | | | | | | [facility] | | | | | | CENTER - | | | | | | LABORATORY | | + + + + + + | BUN | 21 (H) | 7 - 18 mg/dL | [facility] | | | | | | [facility] | | | | | | [facility] | | | | | | [facility] - | | | | | | LABORATORY | | + + + + + + | Creatinine | 1.23 | 0.60 - 1.30 | [facility] | | | | | mg/dL | [facility] | | | | | | [facility]ICAL | | | | | | CENTER - | | | | | | LABORATORY | | + + + + + + | eGFR if not | 56 (L)Comment: | >=60 | [facility] | | | | GLOMERULAR FILTRATION | mL/min/1.73m2 | [facility] | | | [facility] | R[facility],ESTIMATED | | MEDICAL | | | | mL/min/1.27p4Nwgp than | | CENTER - | | [...] + + | Calcium | 8.6 | 8.3 - 10.5 | [facility] | [...] + + + + | Bilirubin | 1.2 | 0.1 - 1.5 mg/dL | [facility] | | | Total | | | [facility] | | | | | | MEDICAL | | | | | | CENTER - | | | | | | LABORATORY | | + + + + + + | Total | 4.9 (L) | 6.0 - 7.8 g/dL | [facility] | | | Protein | | | [facility] | | | | [facility] | [facility] - | | | | | | LABORATORY | | + + + + + + | AST | 49 (H) | 10 - 42 U/L | [facility] | | | | | | [facility] | [facility] | [facility] | [facility] - | | | | | | LABORATORY | | + + + + + + | ALT | 59 (H) | 6 - 45 U/L | [facility] | | | | | | [facility] | | [facility] | [facility] | | | | | | [facility] - | | | | | | LABORATORY | | + + + + + + | Alkaline | 114 (H) | 40 - 110 U/L | [facility] | | | Phosphatase | | | [facility] | | | | | | [facility] | | | | | | CENTER - | | | | | | LABORATORY | | + + + + + + | Globulin | 2.7 | 2.1 - 3.8 g/dL | [facility] [...] + + + + | BUN/Creatin | 17.1 | | [facility] | | | ine [...] [address] | [place] | [phone] | | [facility] | | [address] | | | - LABORATORY | | | | + + + + + CBC with Differential (12/29/2016 3:44 AM PDT) + + + + + + | Component | Value | Ref Range | Performed | Pathologist | | | | | At | Signature | + + + + + + | WBC | 9.1 | 4.0 - 11.0 K/uL | [facility] | | | | | | [facility] | [facility] | [facility] | | | | | [facility] - | | | | | | LABORATORY | | + + + + + + | RBC | 3.35 (L) | 4.30 - 5.70 | [facility] | | | | | M/uL | [facility] | | | | | | [facility] | | | | | | CENTER - | | | | | | LABORATORY | | + + + + + + | Hemoglobin | 10.1 (L) | 13.5 - 18.0 | [facility] | | | | | g/dL | [facility] | | | | | | [facility] | | | | | | CENTER - | | | | | | LABORATORY | | + + + + + + | Hematocrit | 29.8 (L) | 40.0 - 51.0 % | [facility] | | | | | | [facility] | | | | | | [facility] | | | | | | C[facility] - | | | | | | LABORATORY | | + + + + + + | MCV | 89.0 | 83.0 - 101.0 fL | [facility] | | | | | | [facility] | | | [facility] | [facility] | | | | | | CENTER - | | | | | | LABORATORY | | + + + + + + | MCH | 30.0 | 28.0 - 35.0 pg | [facility] | | | | | | [facility] | | | [facility] | [facility] | | | | | | CENTER - | | | | | | LABORATORY | | + + + + + + | MCHC | 33.7 | 32.0 - 36.0 | [facility] | | | | | g/dL | [facility] | | | | | | [facility] | | | | | | CENTER - | | | | | | LABORATORY | | + + + + + + | RDW-CV | 15.9 (H) | <15.0 % | [facility] | | | | | | [facility] | | | [facility] | [facility] | | | | | | CENTER - | | | | | | LABORATORY | | + + + + + + | Platelet | 376 | 140 - 440 K/uL | [facility] [...] + + + + | % | 77.9 | 45.0 - 82.0 % | [facility] | | | Neutrophils | | | [facility] | | | | | | [facility] | | | | | | CENTER - | | | | | | LABORATORY | | + + + + + + | % | 5.7 (L) | 20.0 - 45.0 % | [facility] | | | Lymphocytes | | | [facility] | | | | | | [facility] | | | | | | CENTER - | | | | | | LABORATORY | | + + + + + + | % Monocytes | 11.9 | 4.0 - 12.0 % | [facility] | | | | | | [facility] | | | | | | [facility] | | | | | | CENTER - | | | | | | LABORATORY | | + + + + + + | % | 3.6 | 0.0 - 5.0 % | [facility] | | | Eosinophils | | | [facility] | | | | | | [facility]ICAL | | | | | | CENTER - | | | | | | LABORATORY | | + + + + + + | % Basophils | 0.9 | 0.0 - 1.0 % | [facility] | | | | | | [facility] | | | | | | [facility] | | | | | | CENTER - | | | | | | LABORATORY | | + + + + + + | Absolute | 7.10 | 1.80 - 8.50 | [facility] | [...] + + + + | Absolute | 1.10 (H) | 0.00 - 1.00 | [facility] | | | Monocytes | | K/uL | [facility] | | | | | | [facility] | | | | | | CENTER - | | | | | | LABORATORY | | + + + + + + | Absolute | 0.30 | 0.00 - 0.40 | [facility] | [...] [facility]. | [address] | [place] | [phone] | | [facility] | | [address] | | | - LABORATORY | | | | + + + + + Red Blood Cells (PRBC) - Crossmatch (12/28/2016 7:41 AM PDT) + + + + + + | Component | Value | Ref Range | Performed | Pathologist | | | | | At | Signature | + + + + + + | Product | [id number] | | [facility] | | | Code | | | [facility] | | | | | | [facility] | | | | | | CENTER - | | | | | | BLOOD BANK | | + + + + + + | UNIT # | [id number] | | [facility] | | | | | | [facility] | | | | | | [facility] | | | | | | CENTER - | | | | | | BLOOD BANK | | + + + + + + | UNIT ABO | O | | [facility] | | | | | | [facility] | | | | | | [facility] | | | | | | CENTER - | | | | | | BLOOD BANK | | + + + + + + | UNIT RH | POS | | [facility] | | | | | | [facility] | | | | | | [facility]ICAL | | | | | | CENTER - | | | | | | BLOOD BANK | | + + + + + + | CROSSMATCH | Compatible | | [facility] | | | INTERP | | | [facility] | | | | | | MEDICAL | | | | | | CENTER - | | | | | | BLOOD BANK | | + + + + + + | Unit Status | Returned | | [facility] | | | | | | [facility] | | | | | | [facility] | | | | | | CENTER - | | | | | | BLOOD BANK | | + + + + + + | Blood | OPOS | | [facility] | | | Product | | | [facility] | | | ABORh | | | MEDICAL | | | | | | CENTER - | | | | | | BLOOD BANK | | + + + + + + | Blood | [id number] | | [facility] | | | Product | | | [facility] | | | Expiration | | | MEDICAL | | | Date and | | | CENTER - | | | Time | | | BLOOD BANK | | + + + + + + | Product | [id number] | | [facility] | | | Blood Type | | | [facility] | | | Barcode | | | MEDICAL | | | | | | CENTER - | | | | | | BLOOD BANK | | + + + + + + | Product | [id number] | | [facility] | | | Code | | | [facility] | | | | | | MEDICAL | | | | | | CENTER - | | | | | | BLOOD BANK | | + + + + + + | UNIT # | [id number] | | [facility] | | | | | | [facility] | | | | | | [facility] | | | | | | CENTER - | | | | | | BLOOD BANK | | + + + + + + | UNIT ABO | O | | [facility] | | | | | | [facility] | | | | | | MEDICAL | | | | | | CENTER - | | | | | | BLOOD BANK | | + + + + + + | UNIT RH | POS | | [facility] | | | | | | [facility] | | | | | | MEDICAL | | | | | | CENTER - | | | | | | BLOOD BANK | | + + + + + + | CROSSMATCH | Compatible | | [facility] | | | INTERP | | | [facility] | | | | | | MEDICAL | | | | | | CENTER - | | | | | | BLOOD BANK | | + + + + + + | Unit Status | Transfused | | [facility] | | | | | | [facility] | | | | | | [facility]ICAL | | | | | | CENTER - | | | | | | BLOOD BANK | | + + + + + + | Blood | OPOS | | [facility] | | | Product | | | [facility] | | | ABORh | | | MEDICAL | | | | | | CENTER - | | | | | | BLOOD BANK | | + + + + + + | Blood | [id number] | | [facility] | | | Product | | | [facility] | | | Expiration | | | MEDICAL | | | Date and | | | CENTER - | | | Time | | | BLOOD BANK | | + + + + + + | Product | 5100 | | [facility] | | | Blood Type | | | [facility] | | | Barcode | | | MEDICAL | | | | | | CENTER - | | | | | | BLOOD BANK | | + + + + + + + + | Specimen | + + | | + + + + + + + | Performing | Address | City/State/Zipcode | Phone Number | | Organization | | | | + + + + + | [facility] | [address] | [place] | | | [facility] | | [address] | | | - BLOOD BANK | | | | + + + + + Protime INR (12/28/2016 3:30 AM PDT) + + + + + + | Component | Value | Ref Range | Performed | Pathologist | | | | | At | Signature | + + + + + + | Prothrombin | 15.3 (H) | 11.3 - 13.9 | [facility] | | | Time | | seconds | [facility] | | | | | | MEDICAL | | | | | | CENTER - | | | | | | LABORATORY | | + + + + + + | INR | 1.18 (H)Comment: Usual | 0.90 - 1.10 | [...] [address] | [place] | [phone] | | [facility] | | [address] | | | - LABORATORY | | | | + + + + + Magnesium (12/28/2016 3:30 AM PDT) + +---------+ + + + | Component | Value | Ref Range | Performed | Pathologist | | | | | At | Signature | + +---------+ + + + | Magnesium | 1.6 (L) | 1.8 - 2.5 mg/dL | [facility] | | | | [...] + | [facility] | [address] | [place] | [phone] | | [facility] | | [address] | | | - LABORATORY | | | | + + + + + Comprehensive Metabolic Panel (12/28/2016 3:30 AM PDT) + + + + + + | Component | Value | Ref Range | Performed | Pathologist | | | | | At | Signature | + + + + + + | Na | 139 | 136 - 149 | [facility] | [...] + + + + | CO2 | 30 | 24 - 31 mmol/L | [facility] [...] + + + | Glucose | 101 | 70 - 109 mg/dL | [facility] | | | | | | [facility] | | | | | | MEDICAL | | | | | | CENTER - | | | | | | LABORATORY | | + + + + + + | BUN | 22 (H) | 7 - 18 mg/dL | [facility] | | | | | | [facility] | | | | | | MEDICAL | | | | | | CENTER - | | | | | | LABORATORY | | + + + + + + | Creatinine | 1.21 | 0.60 - 1.30 | [facility] | | | | | mg/dL | [facility] | | | | | | MEDICAL | | | | | | CENTER - | | | | | | LABORATORY | | + + + + + + | eGFR if not | 57 (L)Comment: | >=60 | [facility] | | | | GLOMERULAR FILTRATION | mL/min/1.73m2 | [facility] | | | [facility] | RATE,ESTIMATED | | MEDICAL | | | | mL/min/1.10z0Gvkw than | | CENTER - | | [...] + + | Calcium | 8.6 | 8.3 - 10.5 | [facility] | | | | | mg/dL | [...] + + + + | Bilirubin | 1.1 | 0.1 - 1.5 mg/dL | [facility] | | | Total | | | [facility] | | | | | | MEDICAL | | | | | | CENTER - | | | | | | LABORATORY | | + + + + + + | Total | 5.4 (L) | 6.0 - 7.8 g/dL | [facility] | | | Protein | | | [facility] | | | | | | MEDICAL | | | | | | CENTER - | | | | | | LABORATORY | | + + + + + + | AST | 66 (H) | 10 - 42 U/L | [facility] | | | | | | [facility] | | | | | | MEDICAL | | | | | | CENTER - | | | | | | LABORATORY | | + + + + + + | ALT | 71 (H) | 6 - 45 U/L | [facility] | | | | | | [facility] | | | | | | [facility]ICAL | | | | | | CENTER - | | | | | | LABORATORY | | + + + + + + | Alkaline | 122 (H) | 40 - 110 U/L | [facility] | | | Phosphatase | | | [facility] | | | | | | MEDICAL | | | | | | CENTER - | | | | | | LABORATORY | | + + + + + + | Globulin | 3.2 | 2.1 - 3.8 g/dL | [facility] | | | | | | [facility] | | | | | | MEDICAL | | | | | | CENTER - | | | | | | LABORATORY | | + + + + + + | Albumin/Talia | 0.7 (L) | 0.8 - 2.0 | [facility] | | | bulin Ratio | | | [facility] | | | | | | MEDICAL | | | | | | CENTER - | | | | | | LABORATORY | | + + + + + + | BUN/Creatin | 18.2 | | [facility] | | | ine Ratio | | | [facility] | | | | | | MEDICAL [...] + | [facility] | [address] | [place] | [phone] | | [facility] | | [address] | | | - LABORATORY | | | | + + + + + CBC with Differential (12/28/2016 3:30 AM PDT) + + + + + [...] + + + + | RBC | 3.40 (L) | 4.30 - 5.70 | [facility] | | | | | M/uL | [facility] | | | [facility] | [facility] | | | | | | CENTER - | | | | | | LABORATORY | | + + + + + + | Hemoglobin | 10.2 (L) | 13.5 - 18.0 | [facility] | | | | | g/dL | [facility] | | | | | | MEDICAL | | | | | | CENTER - | | | | | | LABORATORY | | + + + + + + | Hematocrit | 30.2 (L) | 40.0 - 51.0 % | [facility] | | | | | | [facility] | | | | | | MEDICAL | | | | | | CENTER - | | | | | | LABORATORY | | + + + + + + | MCV | 88.9 | 83.0 - 101.0 fL | [facility] | | | | | | [facility] | | | [facility] | | MEDICAL | | | | | | CENTER - | | | | | | LABORATORY | | + + + + + + | MCH | 30.0 | 28.0 - 35.0 pg | [facility] | | | | | | [facility] | | | | | | MEDICAL | | | | | | CENTER - | | | | | | LABORATORY | | + + + + + + | MCHC | 33.8 | 32.0 - 36.0 | [facility] | | | | | g/dL | [facility] | | | | | | MEDICAL | | | | | | CENTER - | | | | | | LABORATORY | | + + + + + + | RDW-CV | 16.1 (H) | <15.0 % | [facility] | | | | | | [facility] | | | | | | MEDICAL | | | | | | CENTER - | | | | | | LABORATORY | | + + + + + + | Platelet | 364 | 140 - 440 K/uL | [facility] | | | Count | | | [facility] | | | [facility] | | MEDICAL | | | | | | CENTER - | | | | | | LABORATORY | | + + + + + + | MPV | 8.2 | fL | [facility] | | | | | | [facility] | | | | | | MEDICAL | | | | | | CENTER - | | | | | | LABORATORY | | + + + + + + | % | 75.8 | 45.0 - 82.0 % | [facility] | | | Neutrophils | | | [facility] | | | | | | MEDICAL | | | | | | CENTER - | | | | | | LABORATORY | | + + + + + + | % | 6.3 (L) | 20.0 - 45.0 % | [facility] | | | Lymphocytes | | | [facility] | | | | | | MEDICAL | | | | | | CENTER - | | | | | | LABORATORY | | + + + + + + | % Monocytes | 10.6 | 4.0 - 12.0 % | [facility] | | | | | | [facility] | | | | | | MEDICAL | | | | | | CENTER - | | | | | | LABORATORY | | + + + + + + | % | 6.7 (H) | 0.0 - 5.0 % | [facility] | | | Eosinophils | | | [facility] | | | | | | MEDICAL | | | | | | CENTER - | | | | | | LABORATORY | | + + + + + + | % Basophils | 0.6 | 0.0 - 1.0 % | [facility] [...] | Neutrophils | | K/uL | [facility] | | | | | | MEDICAL [...] + + + + | Absolute | 0.80 | 0.00 - 1.00 | [facility] | [...] + | [facility] | [address] | [place] | [phone] | | [facility] | | [address] | | | - LABORATORY | | | | + + + + + Protime INR (12/27/2016 5:39 AM PDT) + + + + + + | Component | Value | Ref Range | Performed | Pathologist | | | | | At | Signature | + + + + + + | Prothrombin | 15.9 (H) | 11.3 - 13.9 | [facility] | | | Time | | seconds | [facility] | | [facility] | | [facility] | | | | | | C[facility] - | | | | | | LABORATORY | | + + + + + + | INR | 1.24 (H)Comment: Usual | 0.90 - 1.10 | [...] [address] | [place] | [phone] | | [facility] | | [address] | | | - LABORATORY | | | | + + + + + Comprehensive Metabolic Panel (12/27/2016 5:39 AM PDT) + + + + + + | Component | Value | Ref Range | Performed | Pathologist | | | | | At | Signature | + + + + + + | Na | 138 | 136 - 149 | [facility] | | | | | mmol/L | [facility] | | | | | | MEDICAL | | | | | | CENTER - | | | | | | LABORATORY | | + + + + + + | K | 2.8 (L) | 3.5 - 5.1 | [facility] | | | | | mmol/L | [facility] | | | | | | MEDICAL | | | | | | CENTER - | | | | | | LABORATORY | | + + + + + + | Cl | 104 | 98 - 109 mmol/L | [facility] | | | | | | [facility] | | | | | | MEDICAL | | | | | | CENTER - | | | | | | LABORATORY | | + + + + + + | CO2 | 31 | 24 - 31 mmol/L | [facility] | | | | | | [facility] | | | [facility] | | [facility] | | | | | | CENTER - | | | | | | LABORATORY | | + + + + + + | Anion Gap | 3 | 3 - 16 mmol/L | [facility] [...] (H) | 7 - 18 mg/dL | [facility] | | | | | | [facility] | | | | | | MEDICAL | | | | | | CENTER - | | | | | | LABORATORY | | + + + + + + | Creatinine | 1.07 | 0.60 - 1.30 | [facility] | | | | | mg/dL | [facility] | | | | | | [facility]ICAL | | | | | | CENTER - | | | | | | LABORATORY | | + + + + + + | eGFR if not | >60Comment: GLOMERULAR | >=60 | [facility] | | | | FILTRATION | mL/min/1.73m2 | [facility] | | | [facility] | RATE,ESTIMATED | | MEDICAL | | | | mL/min/1.04r0Zyys than | | CENTER - | | [...] + + + + | Calcium | 8.3 | 8.3 - 10.5 | [facility] | | | | | mg/dL | [facility] | | | | | | MEDICAL | | | | | | CENTER - | | | | | | LABORATORY | | + + + + + + | Albumin | 2.1 (L) | 3.2 - 5.0 g/dL | [facility] | | | | | | [facility] | | | | | | [facility]ICAL | | | | | | CENTER - | | | | | | LABORATORY | | + + + + + + | Bilirubin | 1.1 | 0.1 - 1.5 mg/dL | [facility] | | | Total | | | [facility] | | | | | | MEDICAL | | | | | | CENTER - | | | | | | LABORATORY | | + + + + + + | Total | 4.8 (L) | 6.0 - 7.8 g/dL | [facility] | | | Protein | | | [facility] | | | | | | MEDICAL | | | | | | CENTER - | | | | | | LABORATORY | | + + + + + + | AST | 79 (H) | 10 - 42 U/L | [facility] | | | | | | [facility] | | | | | | [facility]ICAL | | | | | | CENTER - | | | | | | LABORATORY | | + + + + + + | ALT | 77 (H) | 6 - 45 U/L | [facility] | | | | | | [facility] | | | | | | MEDICAL | | | | | | CENTER - | | | | | | LABORATORY | | + + + + + + | Alkaline | 108 | 40 - 110 U/L | [facility] | | | Phosphatase | | | [facility] | | | | | | MEDICAL | | | | | | CENTER - | | | | | | LABORATORY | | + + + + + + | Globulin | 2.7 | 2.1 - 3.8 g/dL | [facility] | | | | | | [facility] | | | | | | MEDICAL | | | | | | CENTER - | | | | | | LABORATORY | | + + + + + + | Albumin/Talia | 0.8 | 0.8 - 2.0 | [facility] | | | bulin Ratio | | | [facility] | | | | | | MEDICAL | | | | | | CENTER - | | | | | | LABORATORY | | + + + + + + | BUN/Creatin | 17.8 | | [facility] | | | ine [...] [address] | [place] | [phone] | | [facility] | | [address] | | | - LABORATORY | | | | + + + + + CBC with Differential (12/27/2016 5:39 AM PDT) + + + + + + | Component | Value | Ref Range | Performed | Pathologist | | | | | At | Signature | + + + + + + | WBC | 8.3 | 4.0 - 11.0 K/uL | [facility] | | | | | | [facility] | | | | | | MEDICAL | | | | | | CENTER - | | | | | | LABORATORY | | + + + + + + | RBC | 3.23 (L) | 4.30 - 5.70 | [facility] | | | | | M/uL | [facility] | | | | | | MEDICAL | | | | | | CENTER - | | | | | | LABORATORY | | + + + + + + | Hemoglobin | 9.6 (L) | 13.5 - 18.0 | [facility] | | | | | g/dL | [facility] | | | | | | MEDICAL | | | | | | CENTER - | | | | | | LABORATORY | | + + + + + + | Hematocrit | 28.7 (L) | 40.0 - 51.0 % | [...] + + | MCH | 29.7 | 28.0 - 35.0 pg | [facility] | | | | | | [facility] | | | [facility] | | MEDICAL | | | | | | CENTER - | | | | | | LABORATORY | | + + + + + + | MCHC | 33.4 | 32.0 - 36.0 | [facility] | | | | | g/dL | [facility] | | | | | | MEDICAL | | | | | | CENTER - | | | | | | LABORATORY | | + + + + + + | RDW-CV | 16.4 (H) | <15.0 % | [facility] | | | | | | [facility] | | | | | | MEDICAL | | | | | | CENTER - | | | | | | LABORATORY | | + + + + + + | Platelet | 310 | 140 - 440 K/uL | [facility] | | | Count | | | [facility] | | | | | | MEDICAL | | | | | | CENTER - | | | | | | LABORATORY | | + + + + + + | MPV | 8.0 | fL | [facility] | | | | | | [facility] | | | | | | MEDICAL | | | | | | CENTER - | | | | | | LABORATORY | | + + + + + + | % | 76.8 | 45.0 - 82.0 % | [facility] | | | Neutrophils | | | [facility] | | | | | | MEDICAL | | | | | | CENTER - | | | | | | LABORATORY | | + + + + + + | % | 4.2 (L) | 20.0 - 45.0 % | [facility] | | | Lymphocytes | | | [facility] | | | | | | MEDICAL | | | | | | CENTER - | | | | | | LABORATORY | | + + + + + + | % Monocytes | 11.8 | 4.0 - 12.0 % | [facility] | | | | | | [facility] | | | | | | MEDICAL | | | | | | CENTER - | | | | | | LABORATORY | | + + + + + + | % | 6.4 (H) | 0.0 - 5.0 % | [facility] | | | Eosinophils | | | [facility] | | | | | | MEDICAL | | | | | | CENTER - | | | | | | LABORATORY | | + + + + + + | % Basophils | 0.8 | 0.0 - 1.0 % | [facility] | | | | | | [facility] | | | | | | MEDICAL | | | | | | CENTER - | | | | | | LABORATORY | | + + + + + + | Absolute | 6.40 | 1.80 - 8.50 | [facility] | [...] | | Lymphocytes | | K/uL | [facility] | | | | | | MEDICAL | | | | | | CENTER - | | | | | | LABORATORY | | + + + + + + | Absolute | 1.00 | 0.00 - 1.00 | [facility] | | | Monocytes | | K/uL | [facility] | | | | | | MEDICAL | | | | | | CENTER - | | | | | | LABORATORY | | + + + + + + | Absolute | 0.50 (H) | 0.00 - 0.40 | [facility] | | | Eosinophils | | K/uL | [facility] | | | | | | MEDICAL | | | | | | CENTER - | | | | | | LABORATORY | | + + + + + + | Absolute | 0.10 | 0.00 - 0.10 | [facility] | | | Basophils | | K/uL | [facility] | [...] ST. | [address] | [place], [place] | [phone] | | [facility] | | [address] | | | - LABORATORY | | | | + + + + + ECHO Complete (12/26/2016 11:54 AM PDT) + +-------+ + + + | Component | Value | Ref Range | Performed | Pathologist | | | | | At | Signature | + +-------+ + + + | LVEF-TTE | 60 | | | | | TRANSTHORAC | | | | | | IC ECHO | | | | | + +-------+ + + + + + | Specimen | + + | | + + + +-- + | Narrative | P erformed At | + +-- + | Transthoracic | | | Echocardiography Report (TTE) Demographics Patient Name EILEEN | | | DORA Room Number 459 | | | DESTINY Patient Number [id number] Date of Study | | | 12/26/2016 Visit Number [id number] Accession | | | [id number] Referring Physician MASONJRMALCOM RADHA Number | | | Date of 1930 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 | | | Procedure dateDate: 12/26/2016Start: 02:23 PM Technical Quality: | | | Adequate visualizationStudy Location: ICU Patient Status: | | | RoutineHeight: 69 inchesWeight: 192 poundsBSA: 2.03 m^2BMI: 28.35 | | | kg/m^2Rhythm: Atrial fibrillationHR: 108 bpm ConclusionsSummary1. Mild | | | biatrial dilatation.2. Normal left ventricular size with a mild | | | concentric left ventricularhypertrophy. Left ventricular systolic | | | function is preserved. LVEF 60%.3. Mildly thickened trileaflet aortic | | | valve with adequate opening.4. Mildly thickened mitral valve with the | | | trace mitral valve regurgitation.5. Moderate aortic root dilatation | | | measuring 4.6 cm in diameter.6. Normal right-sided pressure.7. Normal | | | IVC with normal respiratory collapse. | | | Signature | | | | | | PM | | | -------- FindingsMitral ValveStructurally normal mitral valve without | | | significant stenosis orregurgitation.Aortic ValveAortic valve appears | | | trileaflet.Diffuse thickening (sclerosis) of the aortic valve cusps | | | without reducedexcursion.Tricuspid ValveStructurally normal tricuspid | | | valve without significant stenosis orregurgitation.Pulmonic | | | ValveStructurally normal pulmonic valve without significant stenosis | | | orregurgitation.Left AtriumThe left atrium is mildly dilated.Left | | | VentricleNormal left ventricular cavity size.Mild concentric left | | | ventricular hypertrophy.Normal left ventricular cavity size.Right | | | AtriumEnlarged right atrium.Right VentricleNormal right ventricular | | | size.Right ventricle global systolic function is normal.TAPSE = 1.5 | | | cm.Pericardial EffusionNo evidence of pericardial effusion. | | | MiscellaneousModerate aortic root dilatation measuring 4.6 cm in | | | diameter.The IVC appears normal.IVC respiratory change in dimension > | | | 50%. Valves Mitral Valve Peak E-Wave: 0.92 m/s Tissue Doppler | | | Septal e' Velocity: 0.10 m/s Aortic Valve Structures Left Atrium LA | | | A/P Dimension: 5.11 cm LA Area: 23 | | | cm^2 LA Vol/BSA Index: 37 mL/m^2 LA | | | Volume: 74.41 ml | | | EF [id number]% Left Ventricle Diastolic | | | Dimension: 4.12 cm Septum Diastolic: 1.42 cm PW Diastolic: 1.36 cm EF | | | Calculated: 60% Miscellaneous Aorta Aortic Root: 4.56 cm Ascending | | | Aorta: 3.94 cm | | | Electronically signed by RITCHIE ROBLES MD(Interpreting physician) on | | | 12/26/2016 12:42 PM | | | | | | | | |Findings | | |Mitral Valve | | |Structurally normal mitral valve without significant stenosis or | | |regurgitation. | | |Aortic Valve | | |Aortic valve appears trileaflet. | | |Diffuse thickening (sclerosis) of the aortic valve cusps without reduced | | |excursion. | | |Tricuspid Valve | | |Structurally normal tricuspid valve without significant stenosis or | | |regurgitation. | | |Pulmonic Valve | | |Structurally normal pulmonic valve without significant stenosis or | | |regurgitation. | | |Left Atrium | | |The left atrium is mildly dilated. | | |Left Ventricle | | |Normal left ventricular cavity size. | | |Mild concentric left ventricular hypertrophy. | | |Normal left ventricular cavity size. | | |Right Atrium | | |Enlarged right atrium. | | |Right Ventricle | | |Normal right ventricular size. | | |Right ventricle global systolic function is normal. | | |TAPSE = 1.5 cm. | | |Pericardial Effusion | | |No evidence of pericardial effusion. | | | | | |Miscellaneous | | |Moderate aortic root dilatation measuring 4.6 cm in diameter. | | |The IVC appears normal. | | |IVC respiratory change in dimension > 50%. | | | | | |Valves | | | | | | Mitral Valve | | | | | | Peak E-Wave: 0.92 m/s | | | | | | Tissue Doppler | | | | | | Septal e' Velocity: 0.10 m/s | | | | | | Aortic Valve | | | | | |Structures | | | | | | Left Atrium | | | | | | LA A/P Dimension: 5.11 cm LA Area: 23 cm^2 | | | LA Vol/BSA Index: 37 mL/m^2 LA Volume: 74.41 ml | | | EF [id number]% | | | | | | Left Ventricle | | | | | | Diastolic Dimension: 4.12 cm | | | Septum Diastolic: 1.42 cm | | | PW Diastolic: 1.36 cm | | | EF Calculated: 60% | | | | | | Miscellaneous | | | | | | Aorta | | | | | | Aortic Root: 4.56 cm | | | Ascending Aorta: 3.94 cm | | | | | + +-- + + + | Procedure Note | + + | Stan, Rad Results In - 12/26/2016 12:42 PM PDT Transthoracic Echocardiography Report | | (TTE) Demographics Patient Name [facility] Room Number 459 | | [place]ST[place] Patient Number [id number] Date of Study 12/26/2016 Visit | | Number [id number] Referring Physician CANDELARIO | | RAEF Number Date of 1930 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 Mild biatrial | | dilatation.2. Normal left ventricular size with a mild concentric left | | ventricularhypertrophy. Left ventricular systolic function is preserved. LVEF 60%.3. | | Mildly thickened trileaflet aortic valve with adequate opening.4. Mildly thickened | | mitral valve with the trace mitral valve regurgitation.5. Moderate aortic root | | dilatation measuring 4.6 cm in diameter.6. Normal right-sided pressure.7. Normal IVC | | with normal respiratory | | collapse.Signature | | ------ Electronically signed by RITCHIE ROBLES MD(Interpreting physician) on | | 12/26/2016 12:42 | | PM FindingsMi | | tral ValveStructurally normal mitral valve without significant stenosis | | orregurgitation.Aortic ValveAortic valve appears trileaflet.Diffuse thickening | | (sclerosis) of the aortic valve cusps without reducedexcursion.Tricuspid | | ValveStructurally normal tricuspid valve without significant stenosis | | orregurgitation.Pulmonic ValveStructurally normal pulmonic valve without significant | | stenosis orregurgitation.Left AtriumThe left atrium is mildly dilated.Left | | VentricleNormal left ventricular cavity size.Mild concentric left ventricular | | hypertrophy.Normal left ventricular cavity size.Right AtriumEnlarged right atrium.Right | | VentricleNormal right ventricular size.Right ventricle global systolic function is | | normal.TAPSE = 1.5 cm.Pericardial EffusionNo evidence of pericardial | | effusion.MiscellaneousModerate aortic root dilatation measuring 4.6 cm in diameter.The | | IVC appears normal.IVC respiratory change in dimension > 50%.Valves Mitral Valve Peak | | E-Wave: 0.92 m/s Tissue Doppler Septal e' Velocity: 0.10 m/s Aortic ValveStructures Left | | Atrium LA A/P Dimension: 5.11 cm LA Area: 23 cm^2 LA Vol/BSA | | Index: 37 mL/m^2 LA Volume: 74.41 ml | | EF [id number]% Left Ventricle Diastolic Dimension: 4.12 cm Septum | | Diastolic: 1.42 cm PW Diastolic: 1.36 cm EF Calculated: 60% Miscellaneous Aorta Aortic | | Root: 4.56 cm Ascending Aorta: 3.94 cm | |Summary | |1. Mild biatrial dilatation. | |2. Normal left ventricular size with a mild concentric left ventricular | |hypertrophy. Left ventricular systolic function is preserved. LVEF 60%. | |3. Mildly thickened trileaflet aortic valve with adequate opening. | |4. Mildly thickened mitral valve with the trace mitral valve regurgitation. | |5. Moderate aortic root dilatation measuring 4.6 cm in diameter. | |6. Normal right-sided pressure. | |7. Normal IVC with normal respiratory collapse. | | | |Signature | | | | Electronically signed by RITCHIE ROBLES MD(Interpreting physician) on | | 12/26/2016 12:42 PM | | | | | |Findings | |Mitral Valve | |Structurally normal mitral valve without significant stenosis or | |regurgitation. | |Aortic Valve | |Aortic valve appears trileaflet. | |Diffuse thickening (sclerosis) of the aortic valve cusps without reduced | |excursion. | |Tricuspid Valve | |Structurally normal tricuspid valve without significant stenosis or | |regurgitation. | |Pulmonic Valve | |Structurally normal pulmonic valve without significant stenosis or | |regurgitation. | |Left Atrium | |The left atrium is mildly dilated. | |Left Ventricle | |Normal left ventricular cavity size. | |Mild concentric left ventricular hypertrophy. | |Normal left ventricular cavity size. | |Right Atrium | |Enlarged right atrium. | |Right Ventricle | |Normal right ventricular size. | |Right ventricle global systolic function is normal. | |TAPSE = 1.5 cm. | |Pericardial Effusion | |No evidence of pericardial effusion. | | | |Miscellaneous | |Moderate aortic root dilatation measuring 4.6 cm in diameter. | |The IVC appears normal. | |IVC respiratory change in dimension > 50%. | | | |Valves | | | | Mitral Valve | | | | Peak E-Wave: 0.92 m/s | | | | Tissue Doppler | | | | Septal e' Velocity: 0.10 m/s | | | | Aortic Valve | | | |Structures | | | | Left Atrium | | | | LA A/P Dimension: 5.11 cm LA Area: 23 cm^2 | | LA Vol/BSA Index: 37 mL/m^2 LA Volume: 74.41 ml | | EF Jhwmesdyx03% | | | | Left Ventricle | | | | Diastolic Dimension: 4.12 cm | | Septum Diastolic: 1.42 cm | | PW Diastolic: 1.36 cm | | EF Calculated: 60% | | | | Miscellaneous | | | | Aorta | | | | Aortic Root: 4.56 cm | | Ascending Aorta: 3.94 cm | + + Occult Blood, Stool, Specimen 1 (12/26/2016 11:24 AM PDT) + + + + + + | Component | Value | Ref Range | Performed | Pathologist | | | | | At | Signature | + + + + + + | Occult | Negative | | [facility] | | | Blood in | | | [facility] | | | [facility] | | | MEDICAL | | | Specimen, | | | CENTER - | | | Stool | | | LABORATORY | | + + + + + + + + | Specimen | + + | Stool - Stool | | specimen (specimen) | + + + + + + + | Performing | Address | City/State/Zipcode | Phone Number | | Organization | | | | + + + + + | [facility] | [address] | [place] | [phone] | | [facility] | | [address] | | | - LABORATORY | | | | + + + + + PRODUCT: Plasma (12/26/2016 7:15 AM PDT) + + + + + + | Component | Value | Ref Range | Performed | Pathologist | | | | | At | Signature | + + + + + + | Product | [id number] | | [facility] | | | Code | | | [facility] | | | | | | [facility] | | | | | | CENTER - | | | | | | BLOOD BANK | | + + + + + + | UNIT # | [id number] | | [facility] | | | | | | [facility] | | | | | [facility] | | | | | | C[facility] - | | | | | | BLOOD BANK | | + + + + + + | UNIT ABO | O | | [facility] | | | | | | [facility] | | | | | | MEDICAL | | | | | | CENTER - | | | | | | BLOOD BANK | | + + + + + + | UNIT RH | POS | | [facility] | | | | | | [facility] | | | | | | MEDICAL | | | | | | CENTER - | | | | | | BLOOD BANK | | + + + + + + | Unit Status | Transfused | | [facility] | | | | | | [facility] | | | | | | MEDICAL | | | | | | CENTER - | | | | | | BLOOD BANK | | + + + + + + | Blood | OPOS | | [facility] | | | Product | | | [facility] | | | [facility]OR[facility] | | | MEDICAL | | | | | | CENTER - | | | | | | BLOOD BANK | | + + + + + + | Blood | [id number] | | [facility] | | | Product | | | [facility] | | | Expiration | | | MEDICAL | | | Date and | | | CENTER - | | | Time | | | BLOOD BANK | | + + + + + + | Product | [id number] | | [facility] | | | Blood Type | | | [facility] | | | Barcode | | | MEDICAL | | | | | | CENTER - | | | | | | BLOOD BANK | | + + + + + + | Product | [id number] | | [facility] | | | Code | | | [facility] | | | | | | MEDICAL | | | | | | CENTER - | | | | | | BLOOD BANK | | + + + + + + | UNIT # | [id number] | | [facility] | | | | | | [facility] | | | | | | MEDICAL | | | | | | CENTER - | | | | | | BLOOD BANK | | + + + + + + | UNIT ABO | O | | [facility] | | | | | | [facility] | | | | | | MEDICAL | | | | | | CENTER - | | | | | | BLOOD BANK | | + + + + + + | UNIT RH | POS | | [facility] | | | | | | [facility] | | | | | | [facility]ICAL | | | | | | CENTER - | | | | | | BLOOD BANK | | + + + + + + | Unit Status | Transfused | | [facility] | | | | | | [facility] | | | | | | MEDICAL | | | | | | CENTER - | | | | | | BLOOD BANK | | + + + + + + | Blood | OPOS | | [facility] | | | Product | | | [facility] | | | [facility] | | | MEDICAL | | | | | | CENTER - | | | | | | BLOOD BANK | | + + + + + + | Blood | [id number] | | [facility] | | | Product | | | [facility] | | | Expiration | | | MEDICAL | | | Date and | | | CENTER - | | | Time | | | BLOOD BANK | | + + + + + + | Product | [id number] | | [facility] | | | Blood Type | | | [facility] | | | Barcode | | | MEDICAL | | | | | | CENTER - | | | | | | BLOOD BANK | | + + + + + + + + | Specimen | + + | Blood Product | + + + + + + + | Performing | Address | City/State/Zipcode | Phone Number | | Organization | | | | + + + + + | [facility] | [address] | [place] | | | [facility] | | [address] | | | - BLOOD BANK | | | | + + + + + Protime INR (12/26/2016 3:27 AM PDT) + + + + + + | Component | Value | Ref Range | Performed | Pathologist | | | | | At | Signature | + + + + + + | Prothrombin | 24.6 (H) | 11.3 - 13.9 | [facility] | | | Time | | seconds | [facility] | | | | | | [facility] | | | | | | CENTER - | | | | | | LABORATORY | | + + + + + + | INR | 2.15 (H)Comment: Usual | 0.90 - 1.10 | [facility] | | | | Oral Anticoagulation | [address] | [place] | [phone] | | [facility] | | [address] | | | - LABORATORY | | | | + + + + + Comprehensive Metabolic Panel (12/26/2016 3:27 AM PDT) + + + + + + | Component | Value | Ref Range | Performed | Pathologist | | | | | At | Signature | + + + + + + | Na | 140 | 136 - 149 | [facility] | | | | | mmol/L | [facility] | | | | | | MEDICAL | | | | | | CENTER - | | | | | | LABORATORY | | + + + + + + | K | 3.4 (L) | 3.5 - 5.1 | [facility] | | | | | mmol/L | [facility] | | | | | | MEDICAL | | | | | | CENTER - | | | | | | LABORATORY | | + + + + + + | Cl | 104 | 98 - 109 mmol/L | [facility] [...] + + + + | Glucose | 88 | 70 - 109 mg/dL | [facility] | | | | | | [facility] | | | | | | MEDICAL | | | | | | CENTER - | | | | | | LABORATORY | | + + + + + + | BUN | 18 | 7 - 18 mg/dL | [facility] | | | | | | [facility] | | | | | | MEDICAL | | | | | | CENTER - | | | | | | LABORATORY | | + + + + + + | Creatinine | 1.17 | 0.60 - 1.30 | [facility] | | | | | mg/dL | [facility] | | | | | | MEDICAL | | | | | | CENTER - | | | | | | LABORATORY | | + + + + + + | eGFR if not | 59 (L)Comment: | >=60 | [facility] | | | | GLOMERULAR FILTRATION | mL/min/1.73m2 | [facility] | | | [facility] | RATE,ESTIMATED | | MEDICAL | | | | mL/min/1.58e1Gubp than | | CENTER - | | [...] + + + + | Calcium | 8.4 | 8.3 - 10.5 | [facility] | [...] + + + + | Bilirubin | 1.3 | 0.1 - 1.5 mg/dL | [facility] | | | Total | | | [facility] | | | | | | MEDICAL | | | | | | CENTER - | | | | | | LABORATORY | | + + + + + + | Total | 5.3 (L) | 6.0 - 7.8 g/dL | [facility] | | | Protein | | | [facility] | | | | | | MEDICAL | | | | | | CENTER - | | | | | | LABORATORY | | + + + + + + | AST | 115 (H) | 10 - 42 U/L | [facility] | | | | | | [facility] | | | | | | MEDICAL | | | | | | CENTER - | | | | | | LABORATORY | | + + + + + + | ALT | 90 (H) | 6 - 45 U/L | [facility] | | | | | | [facility] | | | | | | MEDICAL | | | | | | CENTER - | | | | | | LABORATORY | | + + + + + + | Alkaline | 114 (H) | 40 - 110 U/L | [facility] | | | Phosphatase | | | [facility] | | | | | | MEDICAL | | | | | | CENTER - | | | | | | LABORATORY | | + + + + + + | Globulin | 3.1 | 2.1 - 3.8 g/dL | [facility] | | | | | | [facility] | | | | | | MEDICAL | | | | | | CENTER - | | | | | | LABORATORY | | + + + + + + | Albumin/Talia | 0.7 (L) | 0.8 - 2.0 | [facility] | | | bulin Ratio | | | [facility] | | | | | | MEDICAL | | | | | | CENTER - | | | | | | LABORATORY | | + + + + + + | BUN/Creatin | 15.4 | | [facility] | | | ine [...] + + | [facility] | [address] | [place] | [phone] | | [facility] | | [address] | | | - LABORATORY | | | | + + + + + CBC with Differential (12/26/2016 3:27 AM PDT) + + + + + + | Component | Value | Ref Range | Performed | Pathologist | | | | | At | Signature | + + + + + + | WBC | 8.7 | 4.0 - 11.0 K/uL | [facility] | | | | | | [facility] | | | | | | MEDICAL | | | | | | CENTER - | | | | | | LABORATORY | | + + + + + + | RBC | 3.25 (L) | 4.30 - 5.70 | [facility] | | | | | M/uL | [facility] | | | | | | MEDICAL | | | | | | CENTER - | | | | | | LABORATORY | | + + + + + + | Hemoglobin | 9.6 (L) | 13.5 - 18.0 | [facility] | | | | | g/dL | [facility] | | | | | | MEDICAL | | | | | | CENTER - | | | | | | LABORATORY | | + + + + + + | Hematocrit | 28.8 (L) | 40.0 - 51.0 % | [facility] | | | | | | [facility] | | | | | | MEDICAL | | | | | | CENTER - | | | | | | LABORATORY | | + + + + + + | MCV | 88.4 | 83.0 - 101.0 fL | [facility] | | | | | | [facility] | | | | | | MEDICAL | | | | | | CENTER - | | | | | | LABORATORY | | + + + + + + | MCH | 29.6 | 28.0 - 35.0 pg | [facility] | | | | | | [facility] | | | | | | MEDICAL | | | | | | CENTER - | | | | | | LABORATORY | | + + + + + + | MCHC | 33.4 | 32.0 - 36.0 | [facility] | | | | | g/dL | [facility] | | | | | | MEDICAL | | | | | | CENTER - | | | | | | LABORATORY | | + + + + + + | RDW-CV | 16.6 (H) | <15.0 % | [facility] | | | | | | [facility] | | | | | | MEDICAL | | | | | | CENTER - | | | | | | LABORATORY | | + + + + + + | Platelet | 286 | 140 - 440 K/uL | [facility] | | | Count | | | [facility] | | | | | | MEDICAL | | | | | | CENTER - | | | | | | LABORATORY | | + + + + + + | MPV | 7.9 | fL | [facility] | | | | | | [facility] | | | | | | MEDICAL | | | | | | CENTER - | | | | | | LABORATORY | | + + + + + + | % | 77.8 | 45.0 - 82.0 % | [facility] | | | Neutrophils | | | [facility] | | | | | | MEDICAL | | | | | | CENTER - | | | | | | LABORATORY | | + + + + + + | % | 4.8 (L) | 20.0 - 45.0 % | [facility] | | | Lymphocytes | | | [facility] | | | | | | MEDICAL | | | | | | CENTER - | | | | | | LABORATORY | | + + + + + + | % Monocytes | 11.4 | 4.0 - 12.0 % | [facility] | | | | | | [facility] | | | | | | MEDICAL | | | | | | CENTER - | | | | | | LABORATORY | | + + + + + + | % | 5.3 (H) | 0.0 - 5.0 % | [facility] | | | Eosinophils | | | [facility] | | | | | | MEDICAL | | | | | | CENTER - | | | | | | LABORATORY | | + + + + + + | % Basophils | 0.7 | 0.0 - 1.0 % | [facility] | | | | | | [facility] | | | | | | MEDICAL | | | | | | CENTER - | | | | | | LABORATORY | | + + + + + + | Absolute | 6.80 | 1.80 - 8.50 | [facility] | [...] + + + + | Absolute | 1.00 | 0.00 - 1.00 | [facility] | [...] [address] | [place] | [phone] | | [facility] | | [address] | | | - LABORATORY | | | | + + + + + XR Hip Left 2-3 Views (12/25/2016 6:09 PM PDT) + + | Specimen | + + | | + + + + + | Narrative | Performed At | + + + | FOUR VIEWS LEFT HIP 12/25/2016 5:49 PM CLINICAL HISTORY: post op | | | ORIF COMPARISON: Radiographs December 18, intraoperative spot films November | | | 31 FINDINGS: An intramedullary yulisa again extends from the left | | | greater trochanter to the mid femoral diaphysis, with a solitary mid | | | anchoring screw and proximal anchoring nail extending into the | | | femoral neck and head. The hardware appears well seated and bridges | | | the previously visible comminuted, oblique intertrochanteric | | | fracture. There is improved alignment of the dominant fragments, | | | which demonstrate mild residual displacement. Proximal displacement | | | of a fragment containing the lesser trochanter is apparent. Right | | | femoral fixation hardware is partially imaged. There is generalized | | | osteopenia and no new fracture or subluxation is apparent. The hip | | | and sacroiliac joints and pubic symphysis are maintained. | | | Iliofemoral vascular calcification is present. Samy project | | | lateral to the hip and in the proximal thigh. A bladder catheter is | | | apparent. IMPRESSION - 1. IMPROVED ALIGNMENT OF THE | | | INTERTROCHANTERIC LEFT FEMUR FRACTURE WITH INTACT FIXATION HARDWARE. | | | 2. OSTEOPENIA AND VASCULAR CALCIFICATION. Dictated and | | | Signed by: Daniel Jordan MD Electronically signed: 12/25/2016 9:48 PM | | | | | + + + + + | Procedure Note | + + | Stan, Rad Results In - 12/25/2016 9:51 PM PDT FOUR VIEWS LEFT HIP 12/25/2016 5:49 PM | | | | CLINICAL HISTORY: post op ORIF | | | | COMPARISON: Radiographs December 18, intraoperative spot films December 19 | | | | FINDINGS: An intramedullary yulisa again extends from the left greater trochanter | | to the mid femoral diaphysis, with a solitary mid anchoring screw and proximal | | anchoring nail extending into the femoral neck and head. The hardware appears | | well seated and bridges the previously visible comminuted, oblique | | intertrochanteric fracture. There is improved alignment of the dominant | | fragments, which demonstrate mild residual displacement. Proximal displacement | | of a fragment containing the lesser trochanter is apparent. Right femoral | | fixation hardware is partially imaged. There is generalized osteopenia and no | | new fracture or subluxation is apparent. The hip and sacroiliac joints and | | pubic symphysis are maintained. Iliofemoral vascular calcification is present. | | Samy project lateral to the hip and in the proximal thigh. A bladder | | catheter is apparent. | | | | IMPRESSION - | | 1. IMPROVED ALIGNMENT OF THE INTERTROCHANTERIC LEFT FEMUR FRACTURE WITH INTACT | | FIXATION HARDWARE. | | | | 2. OSTEOPENIA AND VASCULAR CALCIFICATION. | | | | Dictated and Signed by: Daniel Jordan MD | | Electronically signed: 12/25/2016 9:48 PM | + + CBC with Differential (12/25/2016 6:08 PM PDT) + + + + + + | Component | Value | Ref Range | Performed | Pathologist | | | | | At | Signature | + + + + + + | WBC | 8.4 | 4.0 - 11.0 K/uL | [facility] | | | | | | [facility] | | | | | | MEDICAL | | | | | | CENTER - | | | | | | LABORATORY | | + + + + + + | RBC | 3.08 (L) | 4.30 - 5.70 | [facility] | | | | | M/uL | [facility] | | | [facility] | | [facility] | | | | | | CENTER - | | | | | | LABORATORY | | + + + + + + | Hemoglobin | 9.0 (L) | 13.5 - 18.0 | [facility] | | | | | g/dL | [facility] | | | | | | MEDICAL | | | | | | CENTER - | | | | | | LABORATORY | | + + + + + + | Hematocrit | 27.4 (L) | 40.0 - 51.0 % | [...] + + + + | MCH | 29.2 | 28.0 - 35.0 pg | [facility] | | | | | | [facility] | | | | | | MEDICAL | | | | | | CENTER - | | | | | | LABORATORY | | + + + + + + | MCHC | 32.9 | 32.0 - 36.0 | [facility] | [...] + + + + | Platelet | 261 | 140 - 440 K/uL | [facility] | | | Count | | | [facility] | | | [facility] | | MEDICAL | | | | | | CENTER - | | | | | | LABORATORY | | + + + + + + | MPV | 7.8 | fL | [facility] | | | | | | [facility] | | | [facility] | | MEDICAL | | | | | | CENTER - | | | | | | LABORATORY | | + + + + + + | % | 80.2 | 45.0 - 82.0 % | [facility] | | | Neutrophils | | | [facility] | | | | | | MEDICAL | | | | | | CENTER - | | | | | | LABORATORY | | + + + + + + | % | 3.5 (L) | 20.0 - 45.0 % | [facility] | | | Lymphocytes | | | [facility] | | | | | | MEDICAL | | | | | | CENTER - | | | | | | LABORATORY | | + + + + + + | % Monocytes | 11.2 | 4.0 - 12.0 % | [facility] | | | | | | [facility] | | | | | | MEDICAL | | | | | | CENTER - | | | | | | LABORATORY | | + + + + + + | % | 4.9 | 0.0 - 5.0 % | [facility] | | | Eosinophils | | | [facility] | | | | | | MEDICAL | | | | | | CENTER - | | | | | | LABORATORY | | + + + + + + | % Basophils | 0.2 | 0.0 - 1.0 % | [facility] | | | | | | [facility] | | | | | | MEDICAL | | | | | | CENTER - | | | | | | LABORATORY | | + + + + + + | Absolute | 6.80 | 1.80 - 8.50 | [facility] | | | Neutrophils | | K/uL | [facility] | [...] + + + | Absolute | 0.90 | 0.00 - 1.00 | [facility] | | | Monocytes | | K/uL | [facility] | | | | | | MEDICAL | | | | | | CENTER - | | | | | | LABORATORY | | + + + + + + | Absolute | 0.40 | 0.00 - 0.40 | [facility] | | | Eosinophils | | K/uL | [facility] | | | | | | MEDICAL | | | | | | CENTER - | | | | | | LABORATORY | | + + + + + + | Absolute | 0.00 | 0.00 - 0.10 | [facility] | | | Basophils | | K/uL | [facility] | [...] + | [facility] | [address] | [place] | [phone] | | [facility] | | [address] | | | - LABORATORY | | | | + + + + + B Type Natriuretic Peptide (12/25/2016 6:08 PM PDT) + +---------+ + + + | Component | Value | Ref Range | Performed | Pathologist | | | | | At | Signature | + +---------+ + + + | BNP | 375 (H) | <100 pg/mL | [facility] | [...] + | [facility] | [address] | [place] | [phone] | | [facility] | | [address] | | | - LABORATORY | | | | + + + + + XR Femur Right 2+Vw (12/25/2016 6:03 PM PDT) + + | Specimen | + + | | + + + + + | Narrative | Performed At | + + + | FIVE VIEWS RIGHT FEMUR 12/25/2016 5:38 PM CLINICAL HISTORY: post | [facility] | | op ORIF COMPARISON: Intraoperative spot films December 19, radiographs | | | December 18 FINDINGS: An intramedullary yulisa extends from the level of | | | the greater trochanter into the region of the femoral notch. A | | | solitary proximal anchoring screw and two distal anchoring screws are | | | present. The hardware appears well seated and bridges a previously | | | visible comminuted mid diaphyseal fracture. There is markedly | | | improved alignment of the fracture fragments with only mild residual | | | displacement of the dominant fragments persisting. A nondisplaced | | | oblique fracture of the distal diaphysis is again visible anteriorly | | | on the lateral view. No new fracture or subluxation is apparent. | | | There is generalized osteopenia. Left femoral ORIF hardware is | | | partially imaged. The hip and sacroiliac joints, pubic symphysis | | | and right femorotibial and patellofemoral compartments are | | | maintained. A suprapatellar right knee effusion is suggested. | | | There is extensive iliofemoral vascular calcification. Skin samy | | | project lateral to the right hip and gluteal region, along with the | | | distal thigh. IMPRESSION - 1. IMPROVED ALIGNMENT OF THE MID | | | RIGHT FEMORAL DIAPHYSEAL FRACTURE STATUS POST ORIF. NONDISPLACED | | | FRACTURE OF THE DISTAL DIAPHYSIS IS AGAIN VISIBLE. 2. KNEE | | | EFFUSION. 3. OSTEOPENIA AND VASCULAR CALCIFICATION. Dictated | | | and Signed by: Daniel Jordan MD Electronically signed: 12/25/2016 | | | 9:53 PM | | + + + + + | Procedure Note | + + | Stan, Rad Results In - 12/25/2016 9:57 PM PDT FIVE VIEWS RIGHT FEMUR 12/25/2016 5:38 PM | | | | CLINICAL HISTORY: post op ORIF | | | | COMPARISON: Intraoperative spot films December 19, radiographs December 18 | | | | FINDINGS: An intramedullary yulisa extends from the level of the greater trochanter | | into the region of the femoral notch. A solitary proximal anchoring screw and | | two distal anchoring screws are present. The hardware appears well seated and | | bridges a previously visible comminuted mid diaphyseal fracture. There is | | markedly improved alignment of the fracture fragments with only mild residual | | displacement of the dominant fragments persisting. A nondisplaced oblique | | fracture of the distal diaphysis is again visible anteriorly on the lateral | | view. No new fracture or subluxation is apparent. There is generalized | | osteopenia. Left femoral ORIF hardware is partially imaged. The hip and | | sacroiliac joints, pubic symphysis and right femorotibial and patellofemoral | | compartments are maintained. A suprapatellar right knee effusion is suggested. | | There is extensive iliofemoral vascular calcification. Skin samy project | | lateral to the right hip and gluteal region, along with the distal thigh. | | | | IMPRESSION - | | 1. IMPROVED ALIGNMENT OF THE MID RIGHT FEMORAL DIAPHYSEAL FRACTURE STATUS POST | | ORIF. NONDISPLACED FRACTURE OF THE DISTAL DIAPHYSIS IS AGAIN VISIBLE. | | | | 2. KNEE EFFUSION. | | | | 3. OSTEOPENIA AND VASCULAR CALCIFICATION. | | | | Dictated and Signed by: Daniel Jordan MD | | Electronically signed: 12/25/2016 9:53 PM | + + + +---------+ + + | Performing | Address | City/State/Zipcode | Phone Number | | Organization | | | | + +---------+ + + | [facility] | | | | + +---------+ + + Protime INR (12/25/2016 5:15 PM PDT) + + + + + + | Component | Value | Ref Range | Performed | Pathologist | | | | | At | Signature | + + + + + + | Prothrombin | 25.2 (H) | 11.3 - 13.9 | [facility] | | | Time | | seconds | [facility] | | | | | | [facility] | | | | | | [facility] - | | | | | | LABORATORY | | + + + + + + | INR | 2.22 (H)Comment: Usual | 0.90 - 1.10 | [...] + | [facility] | [address] | [place] | [phone] | | [facility] | | [id number] | | | - LABORATORY | | | | + + + + + XR Chest AP Portable (12/25/2016 2:20 PM PDT) + + | Specimen | + + | | + + + + + | Narrative | Performed At | + + + | PORTABLE CHEST X-RAY: 12/25/2016 2:01 PM CLINICAL HISTORY:PICC | [facility] | | line repositioned, check placement COMPARISON: 12/22/2016 | | | FINDINGS:Right-sided PICC line has been withdrawn, so that the tip is | | | now just into the upper superior vena cava. Stable mild | | | cardiomegaly. Stable mildly prominent pulmonary vasculature. Aortic | | | and mediastinal contours are stable. Descending aorta is tortuous with | | | intimal calcification. Low volume inspiration exam. Hazy density | | | at the right lung base may relate to the low volume, or represent | | | some degree of atelectasis or infiltrate. No other areas of abnormal | | | lung density. No effusion. IMPRESSION - 1. Interval withdrawal of | | | right PICC line, to the level of the upper superior vena cava. | | | 2. Hazy density at the right lung base which may relate to low volume | | | inspiration or represents some degree of atelectasis or infiltrate. | | | Dictated and Signed by: Miguel Ventura MD Electronically | | | signed: 12/25/2016 2:42 PM | | + + + + + | Procedure Note | + + | Stan, Rad Results In - 12/25/2016 2:45 PM PDT PORTABLE CHEST X-RAY: 12/25/2016 2:01 PM | | | | CLINICAL HISTORY:PICC line repositioned, check placement | | | | COMPARISON: 12/22/2016 | | | | FINDINGS:Right-sided PICC line has been withdrawn, so that the tip is now just | | into the upper superior vena cava. | | | | Stable mild cardiomegaly. Stable mildly prominent pulmonary vasculature. Aortic | | and mediastinal contours are stable. Descending aorta is tortuous with intimal | | calcification. | | | | Low volume inspiration exam. Hazy density at the right lung base may relate to | | the low volume, or represent some degree of atelectasis or infiltrate. No other | | areas of abnormal lung density. No effusion. | | | | IMPRESSION - | | 1. Interval withdrawal of right PICC line, to the level of the upper superior | | vena cava. | | | | 2. Hazy density at the right lung base which may relate to low volume | | inspiration or represents some degree of atelectasis or infiltrate. | | | | Dictated and Signed by: Miguel Ventura MD | | Electronically signed: 12/25/2016 2:42 PM | + + + +---------+ + + | Performing | Address | City/State/Zipcode | Phone Number | | Organization | | | | + +---------+ + + | [facility] | | | | + +---------+ + + Protime INR (12/25/2016 3:55 AM PDT) + + + + + + | Component | Value | Ref Range | Performed | Pathologist | | | | | At | Signature | + + + + + + | Prothrombin | 35.1 (H) | 11.3 - 13.9 | [facility] | | | Time | | seconds | [facility] | | | | | | [facility] | | | | | | CENTER - | | | | | | LABORATORY | | + + + + + + | INR | 3.36 (H)Comment: Usual | 0.90 - 1.10 | [address] | [place] | [phone] | | [facility] | | [address] | | | - LABORATORY | | | | + + + + + Basic Metabolic Panel (12/25/2016 3:55 AM PDT) + + + + + + | Component | Value | Ref Range | Performed | Pathologist | | | | | At | Signature | + + + + + + | Na | 138 | 136 - 149 | [facility] | | | | | mmol/L | [facility] | | | | | | MEDICAL | | | | | | CENTER - | | | | | | LABORATORY | | + + + + + + | K | 3.9 | 3.5 - 5.1 | [facility] | | | | | mmol/L | [facility] | | | | | | [facility] | | | | | | CENTER - | | | | | | LABORATORY | | + + + + + + | Cl | 107 | 98 - 109 mmol/L | [facility] | | | | | | [facility] | | | | | | [facility] | | | | | | CENTER - | | | | | | LABORATORY | | + + + + + + | CO2 | 24 | 24 - 31 mmol/L | [facility] [...] + + + + | Glucose | 95 | 70 - 109 mg/dL | [facility] | | | | | | [facility] | | | | | | MEDICAL | | | | | | CENTER - | | | | | | LABORATORY | | + + + + + + | BUN | 17 | 7 - 18 mg/dL | [facility] | | | | | | [facility] | | | | | | MEDICAL | | | | | | CENTER - | | | | | | LABORATORY | | + + + + + + | Creatinine | 0.98 | 0.60 - 1.30 | [facility] | | | | | mg/dL | [facility] | | | | | | MEDICAL | | | | | | CENTER - | | | | | | LABORATORY | | + + + + + + | eGFR if not | >60Comment: GLOMERULAR | >=60 | [facility] | | | | FILTRATION | mL/min/1.73m2 | [facility] | | | [facility] | RATE,ESTIMATED | | MEDICAL | | | | mL/min/1.22v7Amkj than | | CENTER - | | [...] + | Calcium | 8.2 (L) | 8.3 - 10.5 | [facility] | [...] + | [facility] | [address] | [place] | [phone] | | [facility] | | [address] | | | - LABORATORY | | | | + + + + + CBC with Differential (12/25/2016 3:55 AM PDT) + + + + + + | Component | Value | Ref Range | Performed | Pathologist | | | | | At | Signature | + + + + + + | WBC | 7.5 | 4.0 - 11.0 K/uL | [facility] | | | | | | [facility] | | | | | | MEDICAL | | | | | | CENTER - | | | | | | LABORATORY | | + + + + + + | RBC | 3.10 (L) | 4.30 - 5.70 | [facility] | | | | | M/uL | [facility] | | | | | | MEDICAL | | | | | | CENTER - | | | | | | LABORATORY | | + + + + + + | Hemoglobin | 9.3 (L) | 13.5 - 18.0 | [facility] | | | | | g/dL | [facility] | | | | | | MEDICAL | | | | | | CENTER - | | | | | | LABORATORY | | + + + + + + | Hematocrit | 27.3 (L) | 40.0 - 51.0 % | [facility] | | | | | | [facility] | | | | | | MEDICAL | | | | | | CENTER - | | | | | | LABORATORY | | + + + + + + | MCV | 88.1 | 83.0 - 101.0 fL | [facility] [...] + + + + | MCHC | 34.0 | 32.0 - 36.0 | [facility] | | | | | g/dL | [facility] | | | | | | MEDICAL | | | | | | CENTER - | | | | | | LABORATORY | | + + + + + + | RDW-CV | 16.7 (H) | <15.0 % | [facility] | | | | | | [facility] | | | | | | MEDICAL | | | | | | CENTER - | | | | | | LABORATORY | | + + + + + + | Platelet | 232 | 140 - 440 K/uL | [facility] | | | Count | | | [facility] | | | | | | MEDICAL | | | | | | CENTER - | | | | | | LABORATORY | | + + + + + + | MPV | 8.2 | fL | [facility] | | | | | | [facility] | | | | | | MEDICAL | | | | | | CENTER - | | | | | | LABORATORY | | + + + + + + | % | 76.1 | 45.0 - 82.0 % | [facility] | | | Neutrophils | | | [facility] | | | | | | MEDICAL | | | | | | CENTER - | | | | | | LABORATORY | | + + + + + + | % | 4.8 (L) | 20.0 - 45.0 % | [facility] | | | Lymphocytes | | | [facility] | | | | | | MEDICAL | | | | | | CENTER - | | | | | | LABORATORY | | + + + + + + | % Monocytes | 10.9 | 4.0 - 12.0 % | [facility] | | | | | | [facility] | | | | | | MEDICAL | | | | | | CENTER - | | | | | | LABORATORY | | + + + + + + | % | 7.1 (H) | 0.0 - 5.0 % | [facility] | | | Eosinophils | | | [facility] | | | | | | MEDICAL | | | | | | CENTER - | | | | | | LABORATORY | | + + + + + + | % Basophils | 1.1 (H) | 0.0 - 1.0 % | [facility] | | | | | | [facility] | | | | | | MEDICAL | | | | | | CENTER - | | | | | | LABORATORY | | + + + + + + | Absolute | 5.70 | 1.80 - 8.50 | [facility] | [...] + + + + | Absolute | 0.80 | 0.00 - 1.00 | [facility] | [...] [address] | [place] | [phone] | | [facility] | | [address] | | | - LABORATORY | | | | + + + + + Red Blood Cells (PRBC) - Crossmatch (12/25/2016 1:15 AM PDT) + + + + + + | Component | Value | Ref Range | Performed | Pathologist | | | | | At | Signature | + + + + + + | Product | [id number] | | [facility] | | | Code | | | [facility] | | | | | | MEDICAL | | | | | | CENTER - | | | | | | BLOOD BANK | | + + + + + + | UNIT # | [id number] | | [facility] | | | | | | [facility] | | | | | | MEDICAL | | | | | | CENTER - | | | | | | BLOOD BANK | | + + + + + + | UNIT ABO | O | | [facility] | | | | | | [facility] | | | | | | MEDICAL | | | | | | CENTER - | | | | | | BLOOD BANK | | + + + + + + | UNIT RH | NEG | | [facility] | | | | | | [facility] | | | | | | MEDICAL | | | | | | CENTER - | | | | | | BLOOD BANK | | + + + + + + | CROSSMATCH | Compatible | | [facility] | | | INTERP | | | [facility] | | | | | | MEDICAL | | | | | | CENTER - | | | | | | BLOOD BANK | | + + + + + + | Unit Status | Transfused | | [facility] | | | | | | [facility] | | | | | | MEDICAL | | | | | | CENTER - | | | | | | BLOOD BANK | | + + + + + + | Blood | ONEG | | [facility] | | | Product | | | [facility] | | | ABORh | | | MEDICAL | | | | | | CENTER - | | | | | | BLOOD BANK | | + + + + + + | Blood | [id number] | | [facility] | | | Product | | | [facility] | | | Expiration | | | MEDICAL | | | Date and | | | CENTER - | | | Time | | | BLOOD BANK | | + + + + + + | Product | [id number] | | [facility] | | | Blood Type | | | [facility] | | | Barcode | | | MEDICAL | | | | | | CENTER - | | | | | | BLOOD BANK | | + + + + + + + + | Specimen | + + | | + + + + + + + | Performing | Address | City/State/Zipcode | Phone Number | | Organization | | | | + + + + + | [facility] | [address] | [place] | | | [facility] | | [address] | | | - BLOOD BANK | | | | + + + + + Hemoglobin and Hematocrit (12/24/2016 8:30 PM PDT) + + + + + + | Component | Value | Ref Range | Performed | Pathologist | | | | | At | Signature | + + + + + + | Hemoglobin | 9.3 (L) | 13.5 - 18.0 | [facility] | | | | | g/dL | [facility] | | | | | | MEDICAL | | | | | | CENTER - | | | | | | LABORATORY | | + + + + + + | Hematocrit | 28.3 (L) | 40.0 - 51.0 % | [facility] | | | | | | [facility] | | | | [...] + | [facility] | [address] | [place] | [phone] | | [facility] | | [address] | | | - LABORATORY | | | | + + + + + Urinalysis (12/24/2016 9:44 AM PDT) + + + + + [...] + + + | pH, Urine | 5.0 | 5.0 - 8.0 | [facility] | | | | | | [facility] | | | | | | MEDICAL | | | | | | CENTER - | | | | | | LABORATORY | | + + + + + + | Specific | 1.016 | 1.001 - 1.030 | [facility] | | | [place], | | | [facility] | | [...] | + + + + + | [facility] | [address] | [place] | [phone] | | [facility] | | [address] | | | - LABORATORY | | | | + + + + + XR Abdomen Portable (12/24/2016 8:00 AM PDT) + + | Specimen | + + | | + + + + + | Narrative | Performed At | + + + | CLINICAL INFORMATION: Abdominal Pain. COMPARISON: None | [facility] | | available. FINDINGS: Frontal views of the abdomen. Bowel | | | gas pattern: Multiple air distended loops of colon with small amount | | | of air in the rectum. Small amount of scattered air noted within the | | | small bowel. Abnormal calcifications: Prominent vascular | | | calcifications. Bones: Sigmoid curvature of the visualized spine | | | with multilevel degenerative disc disease and multilevel wedge | | | compression deformities at T12, L1, and L2. Intramedullary nail and | | | screw fixation of each femur. Other: Lung bases appear clear. | | | IMPRESSION - Multiple air distended loops of colon. No | | | evidence of small bowel obstruction. Anterior wedge compression | | | deformities at T12, L1, and L2, of unknown chronicity. | | | Dictated and Signed by: Moshe Ross MD Electronically signed: | | | 12/24/2016 9:49 AM | | + + + + + | Procedure Note | + + | Stan, Rad Results In - 12/24/2016 9:52 AM PDT CLINICAL INFORMATION: Abdominal Pain. | | | | COMPARISON: None available. | | | | FINDINGS: | | Frontal views of the abdomen. | | | | Bowel gas pattern: Multiple air distended loops of colon with small amount of | | air in the rectum. Small amount of scattered air noted within the small bowel. | | | | Abnormal calcifications: Prominent vascular calcifications. | | | | Bones: Sigmoid curvature of the visualized spine with multilevel degenerative | | disc disease and multilevel wedge compression deformities at T12, L1, and L2. | | Intramedullary nail and screw fixation of each femur. | | | | Other: Lung bases appear clear. | | | | | | IMPRESSION - | | | | Multiple air distended loops of colon. No evidence of small bowel obstruction. | | | | Anterior wedge compression deformities at T12, L1, and L2, of unknown | | chronicity. | | | | | | Dictated and Signed by: Moshe Ross MD | | Electronically signed: 12/24/2016 9:49 AM | + + + +---------+ + + | Performing | Address | City/State/Zipcode | Phone Number | | Organization | | | | + +---------+ + + | [facility] | | | | + +---------+ + + Type and Screen (12/24/2016 7:21 AM PDT) + + + + + + | Component | Value | Ref Range | Performed | Pathologist | | | | | At | Signature | + + + + + + | ABO | O | | [facility] | | | | | | [facility] | | | | | | MEDICAL | | | | | | CENTER - | | | | | | BLOOD BANK | | + + + + + + | Rh Type | Positive | | [facility] | | | | | | [facility] | | | | | | MEDICAL | | | | | | CENTER - | | | | | | BLOOD BANK | | + + + + + + | Antibody | Negative | | [facility] | | | Screen | | | [facility] | | | | | | MEDICAL | | | | | | CENTER - | | | | | | BLOOD BANK | | + + + + + + + + | Specimen | + + | Blood | + + + + + + + | Performing | Address | City/State/Zipcode | Phone Number | | Organization | | | | + + + + + | [facility] | [address] | [place], [place] | | | [facility] | | [address] | | | - BLOOD BANK | | | | + + + + + Maria Elenaime INR (12/24/2016 3:51 AM PDT) + + + + + + | Component | Value | Ref Range | Performed | Pathologist | | | | | At | Signature | + + + + + + | Prothrombin | 25.8 (H) | 11.3 - 13.9 | [facility] | | | Time | | seconds | [facility] | | | | | | [facility]ICAL | | | | | | CENTER - | | | | | | LABORATORY | | + + + + + + | INR | 2.28 (H)Comment: Usual | 0.90 - 1.10 | [...] + + | [facility] | [address] | [place], [place] | [phone] | | [facility] | | [address] | | | - LABORATORY | | | | + + + + + Basic Metabolic Panel (12/24/2016 3:51 AM PDT) + + + + + + | Component | Value | Ref Range | Performed | Pathologist | | | | | At | Signature | + + + + + + | Na | 137 | 136 - 149 | [facility] | | | | | mmol/L | [facility] | | | | | | MEDICAL | | | | | | CENTER - | | | | | | LABORATORY | | + + + + + + | K | 3.4 (L) | 3.5 - 5.1 | [facility] | | | | | mmol/L | [facility] | | | | | | MEDICAL | | | | | | CENTER - | | | | | | LABORATORY | | + + + + + + | Cl | 107 | 98 - 109 mmol/L | [facility] | | | | | | [facility] | | | | | | MEDICAL | | | | | | CENTER - | | | | | | LABORATORY | | + + + + + + | CO2 | 21 (L) | 24 - 31 mmol/L | [facility] [...] + + + + | Glucose | 119 (H) | 70 - 109 mg/dL | [facility] [...] + + + + | Creatinine | 1.01 | 0.60 - 1.30 | [facility] | | | | | mg/dL | [facility] | | | | | | MEDICAL | | | | | | CENTER - | | | | | | LABORATORY | | + + + + + + | eGFR if not | >60Comment: GLOMERULAR | >=60 | [facility] | | | | FILTRATION | mL/min/1.73m2 | [facility] | | | [facility] | RATE,ESTIMATED | | MEDICAL | | | | mL/min/1.87m9Bqbb than | | CENTER - | | [...] + | Calcium | 8.2 (L) | 8.3 - 10.5 | [facility] | | | | | mg/dL | [facility] | | | | | | MEDICAL | | | | | | CENTER - | | | | | | LABORATORY | | + + + + + + | BUN/Creatin | 18.8 | | [facility] | | | ine [...] | + + + + + | [facility] | [address] | [place] | [phone] | | [facility] | | [address] | | | - LABORATORY | | | | + + + + + CBC with Differential (12/24/2016 3:51 AM PDT) + + + + + + | Component | Value | Ref Range | Performed | Pathologist | | | | | At | Signature | + + + + + + | WBC | 7.4 | 4.0 - 11.0 K/uL | [facility] | | | | | | [facility] | | | | | | MEDICAL | | | | | | CENTER - | | | | | | LABORATORY | | + + + + + + | RBC | 2.36 (L) | 4.30 - 5.70 | [facility] | | | | | M/uL | [facility] | | | | | | MEDICAL | | | | | | CENTER - | | | | | | LABORATORY | | + + + + + + | Hemoglobin | 7.2 (LL)Comment: | 13.5 - 18.0 | [facility] | | | | Critical Result called | g/dL | [facility] | | | | to and read back by Bertram | | MEDICAL | | | | Cody on 12/24/2016 at | | CENTER - | | | | 4:28 by Deonte Evans. | | LABORATORY | | | | | | | | + + + + + + | Hematocrit | 21.5 (L) | 40.0 - 51.0 % | [facility] | | | | | | [facility] | | | | | | MEDICAL | | | | | | CENTER - | | | | | | LABORATORY | | + + + + + + | MCV | 91.4 | 83.0 - 101.0 fL | [facility] | | | | | | [facility] | | | | | | MEDICAL | | | | | | CENTER - | | | | | | LABORATORY | | + + + + + + | MCH | 30.7 | 28.0 - 35.0 pg | [facility] [...] + + + + | RDW-CV | 15.8 (H) | <15.0 % | [facility] | | | | | | [facility] | | | | | | MEDICAL | | | | | | CENTER - | | | | | | LABORATORY | | + + + + + + | Platelet | 209 | 140 - 440 K/uL | [facility] | | | Count | | | [facility] | | | | | | MEDICAL | | | | | | CENTER - | | | | | | LABORATORY | | + + + + + + | MPV | 7.5 | fL | [facility] | | | | | | [facility] | | | | | | MEDICAL | | | | | | CENTER - | | | | | | LABORATORY | | + + + + + + | % | 81.2 | 45.0 - 82.0 % | [facility] | | | Neutrophils | | | [facility] | | | | | | MEDICAL | | | | | | CENTER - | | | | | | LABORATORY | | + + + + + + | % | 3.5 (L) | 20.0 - 45.0 % | [facility] | | | Lymphocytes | | | [facility] | | | | | | MEDICAL | | | | | | CENTER - | | | | | | LABORATORY | | + + + + + + | % Monocytes | 10.7 | 4.0 - 12.0 % | [facility] | | | | | | [facility] | | | | | | MEDICAL | | | | | | CENTER - | | | | | | LABORATORY | | + + + + + + | % | 4.3 | 0.0 - 5.0 % | [facility] | | | Eosinophils | | | [facility] | | | | | | MEDICAL | | | | | | CENTER - | | | | | | LABORATORY | | + + + + + + | % Basophils | 0.3 | 0.0 - 1.0 % | [facility] [...] + + + + | Absolute | 0.80 | 0.00 - 1.00 | [facility] | | | Monocytes | | K/uL | [facility] | | | | | | MEDICAL | | | | | | CENTER - | | | | | | LABORATORY | | + + + + + + | Absolute | 0.30 | 0.00 - 0.40 | [facility] | [...] + + | Performing | Address | City/State/[facility] Cent[facility]ode | Phone Number | | Organization | | | | + + + + + | [facility] | [address] | [place] | [phone] | | [facility] | | [address] | | | - LABORATORY | | | | + + + + + Hemoglobin and Hematocrit (12/23/2016 10:03 AM PDT) + + + + + + | Component | Value | Ref Range | Performed | Pathologist | | | | | At | Signature | + + + + + + | Hemoglobin | 7.7 (L) | 13.5 - 18.0 | [facility] | | | | | g/dL | [facility] | | | | | | MEDICAL | | | | | | CENTER - | | | | | | LABORATORY | | + + + + + + | Hematocrit | 23.3 (L) | 40.0 - 51.0 % | [...] + | [facility] | [address] | [place] | [phone] | | [facility] | | [address] | | | - LABORATORY | | | | + + + + + Protime INR (12/23/2016 4:35 AM PDT) + + + + + + | Component | Value | Ref Range | Performed | Pathologist | | | | | At | Signature | + + + + + + | Prothrombin | 24.9 (H) | 11.3 - 13.9 | [facility] | | | Time | | seconds | [facility] | | | | | | MEDICAL | | | | | | CENTER - | | | | | | LABORATORY | | + + + + + + | INR | 2.18 (H)Comment: Usual | 0.90 - 1.10 | [facility] | | | | Oral Anticoagulation | | [facility] | | | | Range: 2.0 - [...] | + + + + + | [facility] | [address] | [place] | [phone] | | [facility] | | [address] | | | - LABORATORY | | | | + + + + + CBC with Differential (12/23/2016 4:35 AM PDT) + + + + + + | Component | Value | Ref Range | Performed | Pathologist | | | | | At | Signature | + + + + + + | WBC | 8.0 | 4.0 - 11.0 K/uL | [facility] | | | | | | [facility] | | | | | | MEDICAL | | | | | | CENTER - | | | | | | LABORATORY | | + + + + + + | RBC | 2.53 (L) | 4.30 - 5.70 | [facility] | | | | | M/uL | [facility] | | | | | | MEDICAL | | | | | | CENTER - | | | | | | LABORATORY | | + + + + + + | Hemoglobin | 7.7 (L) | 13.5 - 18.0 | [facility] | | | | | g/dL | [facility] | | | | | | MEDICAL | | | | | | CENTER - | | | | | | LABORATORY | | + + + + + + | Hematocrit | 23.1 (L) | 40.0 - 51.0 % | [facility] | | | | | | [facility] | | | | | | MEDICAL | | | | | | CENTER - | | | | | | LABORATORY | | + + + + + + | MCV | 91.3 | 83.0 - 101.0 fL | [facility] | | | | | | [facility] | | | | | | MEDICAL | | | | | | CENTER - | | | | | | LABORATORY | | + + + + + + | MCH | 30.5 | 28.0 - 35.0 pg | [facility] | | | | | | [facility] | | | | | | MEDICAL | | | | | | CENTER - | | | | | | LABORATORY | | + + + + + + | MCHC | 33.5 | 32.0 - 36.0 | [facility] | | | | | g/dL | [facility] | | | | | | MEDICAL | | | | | | CENTER - | | | | | | LABORATORY | | + + + + + + | RDW-CV | 16.0 (H) | <15.0 % | [facility] | | | | | | [facility] | | | | | | MEDICAL | | | | | | CENTER - | | | | | | LABORATORY | | + + + + + + | Platelet | 195 | 140 - 440 K/uL | [facility] [...] + + + + | % | 81.8 | 45.0 - 82.0 % | [facility] | | | Neutrophils | | | [facility] | | | | | | MEDICAL | | | | | | CENTER - | | | | | | LABORATORY | | + + + + + + | % | 3.5 (L) | 20.0 - 45.0 % | [...] + + + + | % | 4.5 | 0.0 - 5.0 % | [facility] | | | Eosinophils | | | [facility] | | | | | | MEDICAL | | | | | | CENTER - | | | | | | LABORATORY | | + + + + + + | % Basophils | 0.7 | 0.0 - 1.0 % | [facility] | | | | | | [facility] | | | | | | MEDICAL | | | | | | CENTER - | | | | | | LABORATORY | | + + + + + + | Absolute | 6.60 | 1.80 - 8.50 | [facility] | [...] + + + + | Absolute | 0.80 | 0.00 - 1.00 | [facility] | | | Monocytes | | K/uL | [facility] | | | | | | MEDICAL | | | | | | CENTER - | | | | | | LABORATORY | | + + + + + + | Absolute | 0.40 | 0.00 - 0.40 | [facility] | [...] + | [facility] | [address] | [place], [place] | [phone] | | [facility] | | [address] | | | - LABORATORY | | | | + + + + + Basic Metabolic Panel (12/23/2016 4:34 AM PDT) + + + + + + | Component | Value | Ref Range | Performed | Pathologist | | | | | At | Signature | + + + + + + | Na | 136 | 136 - 149 | [facility] | | | | | mmol/L | [facility] | | | | [...] + + + + | Cl | 107 | 98 - 109 mmol/L | [facility] | | | | | | [facility] | | | | | | MEDICAL | | | | | | CENTER - | | | | | | LABORATORY | | + + + + + + | CO2 | 23 (L) | 24 - 31 mmol/L | [facility] [...] + + | BUN | 18 | 7 - 18 mg/dL | [facility] | | | | | | [facility] | | | | | | MEDICAL | | | | | | CENTER - | | | | | | LABORATORY | | + + + + + + | Creatinine | 1.25 | 0.60 - 1.30 | [facility] | | | | | mg/dL | [facility] | | | | | | MEDICAL | | | | | | CENTER - | | | | | | LABORATORY | | + + + + + + | eGFR if not | 55 (L)Comment: | >=60 | [facility] | | | | GLOMERULAR FILTRATION | mL/min/1.73m2 | [facility] | | | [facility] | RATE,ESTIMATED | | MEDICAL | | | | mL/min/1.89x6Xazp than | | CENTER - | | [...] + + + + | Calcium | 8.1 (L) | 8.3 - 10.5 | [facility] | | | | | mg/dL | [facility] | | | | | | [facility]ICAL | | | | | | CENTER - | | | | | | LABORATORY | | + + + + + + | BUN/Creatin | 14.4 | | [facility] | | | ine [...] ST. | [address] | [place], [place] | [phone] | | [facility] | | [id number] | | | - LABORATORY | | | | + + + + + Red Blood Cells (PRBC) - Crossmatch (12/23/2016 1:15 AM PDT) + + + + + + | Component | Value | Ref Range | Performed | Pathologist | | | | | At | Signature | + + + + + + | Product | [id number] | | [facility] | | | Code | | | [facility] | | | | | | [facility] | | | | | | CENTER - | | | | | | BLOOD BANK | | + + + + + + | UNIT # | [id number] | | [facility] | | | | | | [facility] | | | | | | [facility] | | | | | | CENTER - | | | | | | BLOOD BANK | | + + + + + + | UNIT ABO | O | | [facility] | | | [facility] | [facility] | | | | | | [facility] | | | | | | CENTER - | | | | | | BLOOD BANK | | + + + + + + | UNIT RH | POS | | [facility] | | | | | | [facility] | | | | | | [facility] | | | | | | CENTER - | | | | | | BLOOD BANK | | + + + + + + | CROSSMATCH | Compatible | | [facility] | | | INTERP | | | [facility] | | | | | | MEDICAL | | | | | | CENTER - | | | | | | BLOOD BANK | | + + + + + + | Unit Status | Transfused | | [facility] | | | | | | [facility] | | | | | | [facility] | | | | | | CENTER - | | | | | | BLOOD BANK | | + + + + + + | Blood | OPOS | | [facility] | | | Product | | | [facility] | | | [facility] | | | MEDICAL | | | | | | CENTER - | | | | | | BLOOD BANK | | + + + + + + | Blood | [id number] | | [facility] | | | Product | | | [facility] | | | Expiration | | | MEDICAL | | | Date and | | | CENTER - | | | Time | | | BLOOD BANK | | + + + + + + | Product | 5100 | | [facility] | | | Blood Type | | | [facility] | | | Barcode | | | MEDICAL | | | | | | CENTER - | | | | | | BLOOD BANK | | + + + + + + | Product | [id number] | | [facility] | | | Code | | | [facility] | | | | | | MEDICAL | | | | | | CENTER - | | | | | | BLOOD BANK | | + + + + + + | UNIT # | [id number] | | [facility] | | | | | | [facility] | | | | | | [facility]ICAL | | | | | | CENTER - | | | | | | BLOOD BANK | | + + + + + + | UNIT ABO | O | | [facility] | | | | | [facility] | | | | | | MEDICAL | | | | | | CENTER - | | | | | | BLOOD BANK | | + + + + + + | UNIT RH | POS | | [facility] | | | | | | [facility] | | | | | | [facility] | | | | | | CENTER - | | | | | | BLOOD BANK | | + + + + + + | CROSSMATCH | Compatible | | [facility] | | | INTERP | | | [facility] | | | | | | [facility]ICAL | | | | | | CENTER - | | | | | | BLOOD BANK | | + + + + + + | Unit Status | Transfused | | [facility] | | [facility] | [facility] | | | | | | [facility] - | | | | | | BLOOD BANK | | + + + + + + | Blood | OPOS | | [facility] | | | Product | | | [facility] | | | [facility] | | | MEDICAL | | | | | | CENTER - | | | | | | BLOOD BANK | | + + + + + + | Blood | [id number] | | [facility] | | | Product | | | [facility] | | | Expiration | | | MEDICAL | | | Date and | | | CENTER - | | | Time | | | BLOOD BANK | | + + + + + + | Product | 5100 | | [facility] | | | Blood Type | | | [facility] | | | Barcode | | | MEDICAL | | | | | | CENTER - | | | | | | BLOOD BANK | | + + + + + + + + | Specimen | + + | | + + + + + + + | Performing | Address | City/State/Zipcode | Phone Number | | Organization | | | | + + + + + | [facility] | [address] | [place] | | | [facility] | | [address] | | | - BLOOD BANK | | | | + + + + + CBC no Differential (12/22/2016 8:14 PM PDT) + + + + + + | Component | Value | Ref Range | Performed | Pathologist | | | | | At | Signature | + + + + + + | WBC | 8.7 | 4.0 - 11.0 K/uL | [facility] | | | | | | [facility] | [facility] | | | | | | [facility] - | | | | | | LABORATORY | | + + + + + + | RBC | 2.53 (L) | 4.30 - 5.70 | [facility] | | | | | M/uL | [facility] | | | | | | MEDICAL | | | | | | CENTER - | | | | | | LABORATORY | | + + + + + + | Hemoglobin | 7.6 (L) | 13.5 - 18.0 | [facility] | | | | | g/dL | [facility] | | | | | | [facility] | | | | | | CENTER - | | | | | | LABORATORY | | + + + + + + | Hematocrit | 23.1 (L) | 40.0 - 51.0 % | [facility] | | | | | | [facility] | | | [facility] | | [facility] | | | | | | CENTER - | | | | | | LABORATORY | | + + + + + + | MCV | 91.4 | 83.0 - 101.0 fL | [facility] | | | | | | [facility] | | | | [facility] | [facility] | | | | | | CENTER - | | | | | | LABORATORY | | + + + + + + | MCH | 30.0 | 28.0 - 35.0 pg | [facility] | | | | | | [facility] | | | | | | [facility] | | | | | | CENTER - | | | | | | LABORATORY | | + + + + + + | MCHC | 32.8 | 32.0 - 36.0 | [facility] | | | | | g/dL | [facility] | | | | | | [facility]ICAL | | | | | | CENTER - | | | | | | LABORATORY | | + + + + + + | RDW-CV | 16.0 (H) | <15.0 % | [facility] | | | | | | [facility] | | | | | | [facility] | | | | | | CENTER - | | | | | | LABORATORY | | + + + + + + | Platelet | 194 | 140 - 440 K/uL | [facility] | | | Count | | | [facility] | | | | | | [facility] | | | | | | CENTER - | | | | | | LABORATORY | | + + + + + + | MPV | 8.2 | fL | [facility] | | | [...] [address] | [place] | [phone] | | [facility] | | [address] | | | - LABORATORY | | | | + + + + + XR Chest AP Portable (12/22/2016 12:59 PM PDT) + + | Specimen | + + | | + + + + + | Narrative | Performed At | + + + | SINGLE AP CHEST 12/22/2016 12:59 PM CLINICAL HISTORY: shortness of | [facility] | | breath COMPARISON: Chest radiograph from the previous day and | | | additional recent radiographs FINDINGS: The right approach PICC | | | again passes to the region of the cavoatrial junction. There is | | | similar prominence of the cardiac silhouette and pulmonary | | | vasculature with calcification and tortuosity of the thoracic aorta. | | | There is similar hazy reticular opacity in the mid to lower lungs. | | | No pneumothorax or pleural effusion is evident. Generalized | | | osteopenia is suggested. IMPRESSION - 1. STABLE | | | RADIOGRAPHIC APPEARANCE OF THE CHEST DEMONSTRATING PROMINENCE OF THE | | | CARDIAC SILHOUETTE AND PULMONARY VASCULATURE AND NON-SPECIFIC HAZY | | | RETICULAR OPACITY IN THE MID TO LOWER LUNGS. Dictated and Signed | | | by: Daniel Jordan MD Electronically signed: 12/22/2016 2:43 PM | | + + + + + | Procedure Note | + + | Stan, Rad Results In - 12/22/2016 2:46 PM PDT SINGLE AP CHEST 12/22/2016 12:59 PM | | | | CLINICAL HISTORY: shortness of breath | | | | COMPARISON: Chest radiograph from the previous day and additional recent | | radiographs | | | | FINDINGS: The right approach PICC again passes to the region of the cavoatrial | | junction. There is similar prominence of the cardiac silhouette and pulmonary | | vasculature with calcification and tortuosity of the thoracic aorta. There is | | similar hazy reticular opacity in the mid to lower lungs. No pneumothorax or | | pleural effusion is evident. Generalized osteopenia is suggested. | | | | IMPRESSION - | | | | 1. STABLE RADIOGRAPHIC APPEARANCE OF THE CHEST DEMONSTRATING PROMINENCE OF THE | | CARDIAC SILHOUETTE AND PULMONARY VASCULATURE AND NON-SPECIFIC HAZY RETICULAR | | OPACITY IN THE MID TO LOWER LUNGS. | | | | Dictated and Signed by: Daniel Jordan MD | | Electronically signed: 12/22/2016 2:43 PM | + + + +---------+ + + | Performing | Address | City/State/Zipcode | Phone Number | | Organization | | | | + +---------+ + + | [facility] | | | | + +---------+ + + US Extremity Nonvascular Limited Right (12/22/2016 12:40 PM PDT) + + | Specimen | + + | | + + + + + | Narrative | Performed At | + + + | RIGHT THIGH ULTRASOUND 12/22/2016 12:09 PM CLINICAL HISTORY: Right | [facility] | | Thigh Ultrasound to see fluid / blood collection COMPARISON: None | | | available FINDINGS: Sonographic interrogation of the right thigh | | | identifies no fluid collection, mass or other tissue distortion. | | | IMPRESSION - 1. NO SONOGRAPHIC ABNORMALITY WITHIN THE RIGHT THIGH. | | | Dictated and Signed by: Daniel Jordan MD Electronically | | | signed: 12/22/2016 2:44 PM | | + + + + + | Procedure Note | + + | Stan, Rad Results In - 12/22/2016 2:47 PM PDT RIGHT THIGH ULTRASOUND 12/22/2016 12:09 | | PMCLINICAL HISTORY: Right Thigh Ultrasound to see fluid / blood collectionCOMPARISON: | | None availableFINDINGS: Sonographic interrogation of the right thigh identifies no | | fluidcollection, mass or other tissue distortion.IMPRESSION -1. NO SONOGRAPHIC | | ABNORMALITY WITHIN THE RIGHT THIGH.Dictated and Signed by: Daniel Jordan MD | | Electronically signed: 12/22/2016 2:44 PM | |FINDINGS: Sonographic interrogation of the right thigh identifies no fluid | |collection, mass or other tissue distortion. | | | |IMPRESSION - | |1. NO SONOGRAPHIC ABNORMALITY WITHIN THE RIGHT THIGH. | | | |Dictated and Signed by: Daniel Jordan MD | | Electronically signed: 12/22/2016 2:44 PM | + + + +---------+ + + | Performing | Address | City/State/Zipcode | Phone Number | | Organization | | | | + +---------+ + + | [facility] | | | | + +---------+ + + Basic Metabolic Panel (12/22/2016 3:41 AM PDT) + + + + + [...] + + + + | K | 3.3 (L) | 3.5 - 5.1 | [facility] | | | | | mmol/L | [facility] | | | | | | MEDICAL | | | | | | CENTER - | | | | | | LABORATORY | | + + + + + + | Cl | 105 | 98 - 109 mmol/L | [facility] | | | | | | [facility] | | | | | | [facility]ICAL | | | | | | CENTER - | | | | | | LABORATORY | | + + + + + + | CO2 | 24 | 24 - 31 mmol/L | [facility] [...] + + + + | Glucose | 116 (H) | 70 - 109 mg/dL | [facility] | | | | | | [facility] | | | | | | MEDICAL | | | | | | CENTER - | | | | | | LABORATORY | | + + + + + + | BUN | 18 | 7 - 18 mg/dL | [facility] | | | | | | [facility] | | | | | | MEDICAL | | | | | | CENTER - | | | | | | LABORATORY | | + + + + + + | Creatinine | 1.12 | 0.60 - 1.30 | [facility] | | | | | mg/dL | [facility] | | | | | | MEDICAL | | | | | | CENTER - | | | | | | LABORATORY | | + + + + + + | eGFR if not | >60Comment: GLOMERULAR | >=60 | [facility] | | | | FILTRATION | mL/min/1.73m2 | [facility] | | | [facility] | RATE,ESTIMATED | | MEDICAL | | | | mL/min/1.58g4Nodq than | | CENTER - | | [...] + + + + | Calcium | 7.9 (L) | 8.3 - 10.5 | [facility] | | | | | mg/dL | [facility] | | | | | | MEDICAL | | | | | | CENTER - | | | | | | LABORATORY | | + + + + + + | BUN/Creatin | 16.1 | | [facility] | | | ine Ratio | | | [facility] | | [...] [address] | [place] | [phone] | | [facility] | | [address] | | | - LABORATORY | | | | + + + + + Protime INR (12/22/2016 3:40 AM PDT) + + + + + + | Component | Value | Ref Range | Performed | Pathologist | | | | | At | Signature | + + + + + + | Prothrombin | 23.9 (H) | 11.3 - 13.9 | [facility] | | | Time | | seconds | [facility] | | | | | | MEDICAL | | | | | | CENTER - | | | | | | LABORATORY | | + + + + + + | INR | 2.07 (H)Comment: Usual | 0.90 - 1.10 | [...] [address] | [place] | [phone] | | [facility] | | [address] | | | - LABORATORY | | | | + + + + + CBC with Differential (12/22/2016 3:40 AM PDT) + + + + + + | Component | Value | Ref Range | Performed | Pathologist | | | | | At | Signature | + + + + + + | WBC | 8.9 | 4.0 - 11.0 K/uL | [facility] | | | | | | [facility] | | | | | | MEDICAL | | | | | | CENTER - | | | | | | LABORATORY | | + + + + + + | RBC | 2.55 (L) | 4.30 - 5.70 | [facility] | | | | | M/uL | [facility] | | | | | | MEDICAL | | | | | | CENTER - | | | | | | LABORATORY | | + + + + + + | Hemoglobin | 7.8 (L) | 13.5 - 18.0 | [facility] | | | | | g/dL | [facility] | | | | | | MEDICAL | | | | | | CENTER - | | | | | | LABORATORY | | + + + + + + | Hematocrit | 23.4 (L) | 40.0 - 51.0 % | [facility] | | | | | | [facility] | | | | | | MEDICAL | | | | | | CENTER - | | | | | | LABORATORY | | + + + + + + | MCV | 91.6 | 83.0 - 101.0 fL | [facility] | | | | | | [facility] | | | | | | MEDICAL | | | | | | CENTER - | | | | | | LABORATORY | | + + + + + + | MCH | 30.8 | 28.0 - 35.0 pg | [facility] [...] + + + + | RDW-CV | 15.7 (H) | <15.0 % | [facility] | | | | | | [facility] | | | | | | MEDICAL | | | | | | CENTER - | | | | | | LABORATORY | | + + + + + + | Platelet | 160 | 140 - 440 K/uL | [facility] | | | Count | | | [facility] | | | | | | [facility] | | | | | | CENTER - | | | | | | LABORATORY | | + + + + + + | MPV | 8.5 | fL | [facility] | | | | | | [facility] | | | | | | MEDICAL | | | | | | CENTER - | | | | | | LABORATORY | | + + + + + + | % | 84.2 (H) | 45.0 - 82.0 % | [facility] | | | Neutrophils | | | [facility] | | | | | | MEDICAL | | | | | | CENTER - | | | | | | LABORATORY | | + + + + + + | % | 2.9 (L) | 20.0 - 45.0 % | [facility] | | | Lymphocytes | | | [facility] | | | | | | MEDICAL | | | | | | CENTER - | | | | | | LABORATORY | | + + + + + + | % Monocytes | 9.1 | 4.0 - 12.0 % | [facility] | | | | | | [facility] | | | | | | MEDICAL | | | | | | CENTER - | | | | | | LABORATORY | | + + + + + + | % | 3.2 | 0.0 - 5.0 % | [facility] | | | Eosinophils | | | [facility] | | | | | | MEDICAL | | | | | | CENTER - | | | | | | LABORATORY | | + + + + + + | % Basophils | 0.6 | 0.0 - 1.0 % | [facility] | | | | | | [facility] | | | | | | MEDICAL | | | | | | CENTER - | | | | | | LABORATORY | | + + + + + + | Absolute | 7.50 | 1.80 - 8.50 | [facility] | | | Neutrophils | | K/uL | [facility] | [...] + + + + | Absolute | 0.80 | 0.00 - 1.00 | [facility] | | | Monocytes | | K/uL | [facility] | | | | | | MEDICAL | | | | | | CENTER - | | | | | | LABORATORY | | + + + + + + | Absolute | 0.30 | 0.00 - 0.40 | [facility] | [...] | Basophils | | K/uL | [facility] | | | | | | MEDICAL [...] [address] | [place] | [phone] | | [facility] | | [address] | | | - LABORATORY | | | | + + + + + XR Chest AP Portable (12/21/2016 12:30 PM PDT) + + | Specimen | + + | | + + + + + | Narrative | Performed At | + + + | EXAM: XR CHEST AP PORTABLE dated 12/21/2016 12:30 PM HISTORY: PICC | [facility] | | tip placement Comparison: 12/20/2016 TECHNIQUE: A single | | | portable view of the chest. FINDINGS: New right approach PICC | | | line catheter. The catheter is seen to the level of the distal | | | superior vena cava. Airspace opacities bilaterally are unchanged. | | | No pneumothorax. There is stable cardiomegaly. No acute osseous | | | abnormalities. IMPRESSION - Right approach PICC line | | | catheter tip seen in the distal superior vena cava. No | | | postprocedural complication. Dictated and Signed by: Matthew Suarez | | | MD Doyle Electronically signed: 12/21/2016 1:06 PM | | + + + + + | Procedure Note | + + | Stan, Rad Results In - 12/21/2016 1:09 PM PDT EXAM: XR CHEST AP PORTABLE dated | | 12/21/2016 12:30 PMHISTORY: PICC tip placementComparison: 12/20/2016TECHNIQUE: A single | | portable view of the chest.FINDINGS:New right approach PICC line catheter. The catheter | | is seen to the level of thedistal superior vena cava. Airspace opacities bilaterally | | are unchanged. Nopneumothorax. There is stable cardiomegaly. No acute osseous | | abnormalities. IMPRESSION -Right approach PICC line catheter tip seen in the distal | | superior vena cava. Nopostprocedural complication.Dictated and Signed by: Matthew Suarez | | MD Doyle Electronically signed: 12/21/2016 1:06 PM | |FINDINGS: | | | |New right approach PICC line catheter. The catheter is seen to the level of the | |distal superior vena cava. Airspace opacities bilaterally are unchanged. No | |pneumothorax. There is stable cardiomegaly. No acute osseous abnormalities. | | | |IMPRESSION - | | | |Right approach PICC line catheter tip seen in the distal superior vena cava. No | |postprocedural complication. | | | |Dictated and Signed by: Matthew Kwon MD | | Electronically signed: 12/21/2016 1:06 PM | + + + +---------+ + + | Performing | Address | City/State/Zipcode | Phone Number | | Organization | | | | + +---------+ + + | [facility] | | | | + +---------+ + + Protime INR (12/21/2016 3:45 AM PDT) + + + + + + | Component | Value | Ref Range | Performed | Pathologist | | | | | At | Signature | + + + + + + | Prothrombin | 21.6 (H) | 11.3 - 13.9 | [facility] | | | Time | | seconds | [facility] | | | | | | MEDICAL | | | | | | CENTER - | | | | | | LABORATORY | | + + + + + + | INR | 1.82 (H)Comment: Usual | 0.90 - 1.10 | [...] + | [facility] | [address] | [place] | [phone] | | [facility] | | [address] | | | - LABORATORY | | | | + + + + + Basic Metabolic Panel (12/21/2016 3:45 AM PDT) + + + + + + | Component | Value | Ref Range | Performed | Pathologist | | | | | At | Signature | + + + + + + | Na | 137 | 136 - 149 | [facility] | [...] + + + + | Cl | 107 | 98 - 109 mmol/L | [facility] | | | | | | [facility] | | | | | | MEDICAL | | | | | | CENTER - | | | | | | LABORATORY | | + + + + + + | CO2 | 24 | 24 - 31 mmol/L | [facility] [...] + + + | Glucose | 103 | 70 - 109 mg/dL | [facility] | | | | | | [facility] | | | | | | MEDICAL | | | | | | CENTER - | | | | | | LABORATORY | | + + + + + + | BUN | 16 | 7 - 18 mg/dL | [facility] | | | | | | [facility] | | | | | | MEDICAL | | | | | | CENTER - | | | | | | LABORATORY | | + + + + + + | Creatinine | 1.16 | 0.60 - 1.30 | [facility] | | | | | mg/dL | [facility] | | | | | | MEDICAL | | | | | | CENTER - | | | | | | LABORATORY | | + + + + + + | eGFR if not | 60Comment: GLOMERULAR | >=60 | [facility] | | | | FILTRATION | mL/min/1.73m2 | [facility] | | | [facility] | RATE,ESTIMATED | | MEDICAL | | | | mL/min/1.56u6Zsma than | | CENTER - | | [...] + + + + | Calcium | 7.9 (L) | 8.3 - 10.5 | [facility] | | | | | mg/dL | [facility] | | | | | | MEDICAL | | | | | | CENTER - | | | | | | LABORATORY | | + + + + + + | BUN/Creatin | 13.8 | | [facility] | | | ine [...] [facility] | [address] | [place], [place] | [phone] | | [facility] | | [address] | | | - LABORATORY | | | | + + + + + CBC with Differential (12/21/2016 3:45 AM PDT) + + + + + + | Component | Value | Ref Range | Performed | Pathologist | | | | | At | Signature | + + + + + + | WBC | 8.8 | 4.0 - 11.0 K/uL | [facility] | | | | | | [facility] | | | | | | MEDICAL | | | | | | CENTER - | | | | | | LABORATORY | | + + + + + + | RBC | 2.88 (L) | 4.30 - 5.70 | [facility] | | | | | M/uL | [facility] | | | | | | MEDICAL | | | | | | CENTER - | | | | | | LABORATORY | | + + + + + + | Hemoglobin | 9.1 (L) | 13.5 - 18.0 | [facility] | | | | | g/dL | [facility] | | | | | | MEDICAL | | | | | | CENTER - | | | | | | LABORATORY | | + + + + + + | Hematocrit | 26.7 (L) | 40.0 - 51.0 % | [facility] | | | | | | [facility] | | | | | | MEDICAL | | | | | | CENTER - | | | | | | LABORATORY | | + + + + + + | MCV | 92.8 | 83.0 - 101.0 fL | [facility] | | | | | | [facility] | | | | | | MEDICAL | | | | | | CENTER - | | | | | | LABORATORY | | + + + + + + | MCH | 31.5 | 28.0 - 35.0 pg | [facility] | | | | | | [facility] | | | | | | MEDICAL | | | | | | CENTER - | | | | | | LABORATORY | | + + + + + + | MCHC | 34.0 | 32.0 - 36.0 | [facility] | | | | | g/dL | [facility] | | | | | | MEDICAL | | | | | | CENTER - | | | | | | LABORATORY | | + + + + + + | RDW-CV | 15.7 (H) | <15.0 % | [facility] | | | | | | [facility] | | | | | | MEDICAL | | | | | | CENTER - | | | | | | LABORATORY | | + + + + + + | Platelet | 144 | 140 - 440 K/uL | [facility] | | | Count | | | [facility] | | | | | | MEDICAL | | | | | | CENTER - | | | | | | LABORATORY | | + + + + + + | MPV | 8.5 | fL | [facility] | | | | | | [facility] | | | | | | MEDICAL | | | | | | CENTER - | | | | | | LABORATORY | | + + + + + + | % | 81.0 | 45.0 - 82.0 % | [facility] | | | Neutrophils | | | [facility] | | | | | | MEDICAL | | | | | | CENTER - | | | | | | LABORATORY | | + + + + + + | % | 4.2 (L) | 20.0 - 45.0 % | [facility] | | | Lymphocytes | | | [facility] | | | | | | MEDICAL | | | | | | CENTER - | | | | | | LABORATORY | | + + + + + + | % Monocytes | 12.0 | 4.0 - 12.0 % | [facility] | | | | | | [facility] | | | | | | MEDICAL | | | | | | CENTER - | | | | | | LABORATORY | | + + + + + + | % | 2.5 | 0.0 - 5.0 % | [facility] | | | Eosinophils | | | [facility] | | | | | | MEDICAL | | | | | | CENTER - | | | | | | LABORATORY | | + + + + + + | % Basophils | 0.3 | 0.0 - 1.0 % | [facility] | | | | | | [facility] | | | | | | MEDICAL | | | | | | CENTER - | | | | | | LABORATORY | | + + + + + + | Absolute | 7.10 | 1.80 - 8.50 | [facility] | [...] + + + + | Absolute | 1.10 (H) | 0.00 - 1.00 | [facility] | | | Monocytes | | K/uL | [facility] | | | | | | MEDICAL | | | | | | CENTER - | | | | | | LABORATORY | | + + + + + + | Absolute | 0.20 | 0.00 - 0.40 | [facility] | [...] + | [facility] | [address] | [place] | [phone] | | [facility] | | [address] | | | - LABORATORY | | | | + + + + + Hemoglobin and Hematocrit (12/20/2016 6:54 PM PDT) + + + + + + | Component | Value | Ref Range | Performed | Pathologist | | | | | At | Signature | + + + + + + | Hemoglobin | 8.7 (L) | 13.5 - 18.0 | [facility] | | | | | g/dL | [facility] | | | | | | MEDICAL | | | | | | CENTER - | | | | | | LABORATORY | | + + + + + + | Hematocrit | 26.7 (L) | 40.0 - 51.0 % | [...] [address] | [place] | [phone] | | [facility] | | [address] | | | - LABORATORY | | | | + + + + + Culture, Blood (12/20/2016 11:00 AM PDT) + + + + + + | Component | Value | Ref Range | Performed | Pathologist | | | | | At | Signature | + + + + + + | Culture | No Growth | | [facility] | | | | | | [facility] | | | | | | MEDICAL | | | | | | CENTER - | | | | | | LABORATORY | | + + + + + + + + | Specimen | + + | Blood - Peripheral | | blood specimen | | (specimen) | + + + + + + + | Performing | Address | City/State/Zipcode | Phone Number | | Organization | | | | + + + + + | [facility] | [address] | [place] | [phone] | | [facility] | | [address] | | | - LABORATORY | | | | + + + + + XR Chest AP Portable (12/20/2016 10:51 AM PDT) + + | Specimen | + + | | + + + + + | Narrative | Performed At | + + + | EXAM: XR CHEST AP PORTABLE dated 12/20/2016 10:51 AM HISTORY: | [facility] | | FEVER Comparison: Outside study 12/18/2016 TECHNIQUE: A single | | | portable view of the chest. FINDINGS: Bilateral reticular | | | appearing interstitial and airspace opacities in the upper lobes. | | | Potential developing consolidation in the right lower lung. No | | | pneumothorax. No large pleural effusions. Stable mild cardiac. | | | No acute osseous abnormalities. IMPRESSION - Interstitial | | | g opacities in the upper lungs bilaterally. This is uncertain if | | | this is acute or chronic. Developing consolidation in the right | | | lung may represent represent a pneumonia. Dictated and Signed by: | | | Matthew Kwon MD Electronically signed: 12/20/2016 11:00 AM | | + + + + + | Procedure Note | + + | Stan, Rad Results In - 12/20/2016 11:03 AM PDT EXAM: XR CHEST AP PORTABLE dated | | 12/20/2016 10:51 AMHISTORY: FEVERComparison: Outside study 12/18/2016TECHNIQUE: A single | | portable view of the chest.FINDINGS:Bilateral reticular appearing interstitial and | | airspace opacities in the upperlobes. Potential developing consolidation in the right | | lower lung. Nopneumothorax. No large pleural effusions. Stable mild cardiac. No | | acuteosseous abnormalities. IMPRESSION -Interstitial g opacities in the upper lungs | | bilaterally. This is uncertain ifthis is acute or chronic.Developing consolidation in | | the right lung may represent represent a pneumonia.Dictated and Signed by: Matthew Suarez | | MD Doyle Electronically signed: 12/20/2016 11:00 AM | | | |Bilateral reticular appearing interstitial and airspace opacities in the upper | |lobes. Potential developing consolidation in the right lower lung. No | |pneumothorax. No large pleural effusions. Stable mild cardiac. No acute | |osseous abnormalities. | | | |IMPRESSION - | | | |Interstitial g opacities in the upper lungs bilaterally. This is uncertain if | |this is acute or chronic. | | | |Developing consolidation in the right lung may represent represent a pneumonia. | | | |Dictated and Signed by: Matthew Kwon MD | | Electronically signed: 12/20/2016 11:00 AM | + + + +---------+ + + | Performing | Address | City/State/Zipcode | Phone Number | | Organization | | | | + +---------+ + + | [facility] | | | | + +---------+ + + Extra Lavender Top Tube (12/20/2016 10:50 AM PDT) + +-------+ + + + | Component | Value | Ref Range | Performed | Pathologist | | | | | At | Signature | + +-------+ + + + | Extra | Done | | [facility] | | | Lavender | | | [facility] | | | Top Tube | [...] [address] | [place] | [phone] | | [facility] | | [address] | | | - LABORATORY | | | | + + + + + Extra Blue Top Tube (12/20/2016 10:50 AM PDT) + +-------+ + + + | Component | Value | Ref Range | Performed | Pathologist | | | | | At | Signature | + +-------+ + + + | Extra Blue | Done | | [facility] | | | Top Tube | | | [facility] | | [...] [address] | [place] | [phone] | | [facility] | | [address] | | | - LABORATORY | | | | + + + + + Extra Green Top Tube (12/20/2016 10:50 AM PDT) + +-------+ + + + [...] + | [facility] | [address] | [place], [place] | [phone] | | [facility] | | [address] | | | - LABORATORY | | | | + + + + + Procalcitonin (12/20/2016 10:50 AM PDT) + + + + + + | Component | Value | Ref Range | Performed | Pathologist | | | | | At | Signature | + + + + + + | Procalciton | 0.42 | <=0.50 ng/mL | [facility] | | | in | | | [facility] | | | | | [facility] | | | | | | [facility] - | | | | | | LABORATORY | | + + + + + + | Comment | Comment: < 0.50 | | [facility] | | | | ng/mL:Procalcitonin | | [facility] | | | | levels below 0.50 ng/mL | | MEDICAL | | | | on the first day of | | CENTER - | | | | admission represents a | | LABORATORY | | | | low risk for progression | | | | | | to severe sepsis and/or | | | | | | septic shock, however | | | | | | these do not exclude an | | | | | | infection, because | | | | | | localized infections | | | | | | (without systemic signs) | | | | | | may also be associated | | | | | | with such low levels. | | | | | | > 2.00 | | | | | | ng/mL:Procalcitonin | | | | | | levels above 2.00 ng/mL | | | | | | on the first day of | | | | | | admission represents a | | | | | | high risk for | | | | | | progression to severe | | | | | | sepsis and/or septic | | | | | | shock. If the | | | | | | procalcitonin | | | | | | measurement is performed | | | | | | shortly after the | | | | | | systemic infection | | | | | | process has started | | | | | | (usually less than 6 | | | | | | hours), these values may | | | | | | still be low. As | | | | | | various non-infectious | | | | | | conditions are known to | | | | | | induce procalcitonin as | | | | | | well, procalcitonin | | | | | | levels between 0.50 | | | | | | ng/mL and 2.00 ng/mL | | | | | | should be reviewed | | | | | | carefully to take into | | | | | | account the specific | | | | | | clinical background and | | | | | | condition(s) of the | | | | | | individual patient. | | | | + + + + + + + + | Specimen | + + | Blood | + + + + + + + | Performing | Address | City/State/Zipcode | Phone Number | | Organization | | | | + + + + + | [facility] | [address] | [place] | [phone] | | [facility] | | [address] | | | - LABORATORY | | | | + + + + + Culture, Blood (12/20/2016 10:50 AM PDT) + + + + + + | Component | Value | Ref Range | Performed | Pathologist | | | | | At | Signature | + + + + + + | Culture | No Growth | | [facility] | [facility] | [facility] | | | | | | [facility] - | | | | | | LABORATORY | | + + + + + + + + | Specimen | + + | Blood - Swab of line | | insertion site | | (specimen) | + + + + + + + | Performing | Address | City/State/Zipcode | Phone Number | | Organization | | | | + + + + + | [facility] | [address] | [place] | [phone] | | [facility] | | [address] | | | - LABORATORY | | | | + + + + + Lactic Acid (12/20/2016 10:45 AM PDT) + +-------+ + + + | Component | Value | Ref Range | Performed | Pathologist | | | | | At | Signature | + +-------+ + + + | Lactate | 1.9 | 0.5 - 2.2 | [facility] | | | | | [...] + | [facility] | [address] | [place] | [phone] | | [facility] | | [address] | | | - LABORATORY | | | | + + + + + PRODUCT: Plasma (12/20/2016 7:15 AM PDT) + + + + + + | Component | Value | Ref Range | Performed | Pathologist | | | | | At | Signature | + + + + + + | Product | [id number] | | [facility] | | | Code | | | [facility] | | | | | | [facility] | | | | | | [facility] - | | | | | | BLOOD BANK | | + + + + + + | UNIT # | [id number] | | [facility] | | | | | | [facility] | | | | | | [facility] | | | | | | CENTER - | | | | | | BLOOD BANK | | + + + + + + | UNIT ABO | O | | [facility] | | | | | | [facility] | | | | | | [facility] | | | | | | CENTER - | | | | | | BLOOD BANK | | + + + + + + | UNIT RH | POS | | [facility] | | | | | | [facility] | | | | | | [facility] | | | | | | CENTER - | | | | | | BLOOD BANK | | + + + + + + | Unit Status | Transfused | | [facility] | | | | | | [facility] | | | | | | [facility] | | | | | | CENTER - | | | | | | BLOOD BANK | | + + + + + + | Blood | OPOS | | [facility] | | | Product | | | [facility] | | | [facility] | | | MEDICAL | | | | | | CENTER - | | | | | | BLOOD BANK | | + + + + + + | Blood | [id number] | | [facility] | | | Product | | | [facility] | | | Expiration | | | MEDICAL | | | Date and | | | CENTER - | | | Time | | | BLOOD BANK | | + + + + + + | Product | 5100 | | [facility] | | | Blood Type | | | [facility] | | | Barcode | | | MEDICAL | | | | | | CENTER - | | | | | | BLOOD BANK | | + + + + + + | Product | [id number] | | [facility] | | | Code | | | [facility] | | | | | | [facility] | | | | | | CENTER - | | | | | | BLOOD BANK | | + + + + + + | UNIT # | [id number] | | [facility] | | | | | | [facility] | | | | | | [facility] | | | | | | CENTER - | | | | | | BLOOD BANK | | + + + + + + | UNIT ABO | O | | [facility] | | | | | | [facility] | | | | | | [facility] | | | | | | CENTER - | | | | | | BLOOD BANK | | + + + + + + | UNIT RH | POS | | [facility] | | | | | | [facility] | | | | | [facility] | | | | | | C[facility] - | | | | | | BLOOD BANK | | + + + + + + | Unit Status | Transfused | | [facility] | | | | | | [facility] | | [facility] | | [facility] | | | | | | C[facility] - | | | | | | BLOOD BANK | | + + + + + + | Blood | OPOS | | [facility] | | | Product | | | [facility] | | | [facility] | | | MEDICAL | | | | | | CENTER - | | | | | | BLOOD BANK | | + + + + + + | Blood | [id number] | | [facility] | | | Product | | | [facility] | | | Expiration | | | MEDICAL | | | Date and | | | CENTER - | | | Time | | | BLOOD BANK | | + + + + + + | Product | 5100 | | [facility] | | | Blood Type | | | [facility] | | | Barcode | | | MEDICAL | | | | | | CENTER - | | | | | | BLOOD BANK | | + + + + + + | Product | [id number] | | [facility] | | | Code | | | [facility] | | | | | | MEDICAL | | | | | | CENTER - | | | | | | BLOOD BANK | | + + + + + + | UNIT # | [id number] | | [facility] | | | | | | [facility] | | | | | | [facility] | | | | | | CENTER - | | | | | | BLOOD BANK | | + + + + + + | UNIT ABO | O | | [facility] | | | | | | [facility] | | | | | | [facility] | | | | | | CENTER - | | | | | | BLOOD BANK | | + + + + + + | UNIT RH | POS | | [facility] | | | | | | [facility] | | | | | | [facility]ICAL | | | | | | CENTER - | | | | | | BLOOD BANK | | + + + + + + | Unit Status | Transfused | | [facility] | | | | | [facility] | | | | | [facility] | | | | | | C[facility] - | | | | | | BLOOD BANK | | + + + + + + | Blood | OPOS | | [facility] | | | Product | | | [facility] | | | [facility] | | | MEDICAL | | | | | | CENTER - | | | | | | BLOOD BANK | | + + + + + + | Blood | [id number] | | [facility] | | | Product | | | [facility] | | | Expiration | | | MEDICAL | | | Date and | | | CENTER - | | | Time | | | BLOOD BANK | | + + + + + + | Product | 5100 | | [facility] | | | Blood Type | | | [facility] | | | Barcode | | | MEDICAL | | | | | | CENTER - | | | | | | BLOOD BANK | | + + + + + + | Product | [id number] | | [facility] | | | Code | | | [facility] | | | | | | MEDICAL | | | | | | CENTER - | | | | | | BLOOD BANK | | + + + + + + | UNIT # | [id number] | | [facility] | | | | | | [facility] | | | | | | MEDICAL | | | | | | CENTER - | | | | | | BLOOD BANK | | + + + + + + | UNIT ABO | O | | [facility] | | | | | | [facility] | | | | | | MEDICAL | | | | | | CENTER - | | | | | | BLOOD BANK | | + + + + + + | UNIT RH | POS | | [facility] | | | | | | [facility] | | | | | | MEDICAL | | | | | | CENTER - | | | | | | BLOOD BANK | | + + + + + + | Unit Status | Crossmatched | | [facility] | | | | | | [facility] | | | | | | MEDICAL | | | | | | CENTER - | | | | | | BLOOD BANK | | + + + + + + | Blood | OPOS | | [facility] | | | Product | | | [facility] | | | [facility] | | | MEDICAL | | | | | | CENTER - | | | | | | BLOOD BANK | | + + + + + + | Blood | [id number] | | [facility] | | | Product | | | [facility] | | | Expiration | | | MEDICAL | | | Date and | | | CENTER - | | | Time | | | BLOOD BANK | | + + + + + + | Product | 5100 | | [facility] | | | Blood Type | | | [facility] | | | Barcode | | | MEDICAL | | | | | | CENTER - | | | | | | BLOOD BANK | | + + + + + + + + | Specimen | + + | Blood Product | + + + + + + + | Performing | Address | City/State/Zipcode | Phone Number | | Organization | | | | + + + + + | [facility] | [address] | [place] | | | [facility] | | [address] | | | - BLOOD BANK | | | | + + + + + Protime INR (12/20/2016 4:18 AM PDT) + + + + + + | Component | Value | Ref Range | Performed | Pathologist | | | | | At | Signature | + + + + + + | Prothrombin | 20.1 (H) | 11.3 - 13.9 | [facility] | | | Time | | seconds | [facility] | | | | | | MEDICAL | | | | | | CENTER - | | | | | | LABORATORY | | + + + + + + | INR | 1.67 (H)Comment: Usual | 0.90 - 1.10 | [...] | + + + + + | [facility] | [address] | [place] | [phone] | | [facility] | | [address] | | | - LABORATORY | | | | + + + + + CBC no Differential (12/20/2016 4:18 AM PDT) + + + + + + | Component | Value | Ref Range | Performed | Pathologist | | | | | At | Signature | + + + + + + | WBC | 8.0 | 4.0 - 11.0 K/uL | [facility] | | | | | | [facility] | | | | | | [facility]ICAL | | | | | | CENTER - | | | | | | LABORATORY | | + + + + + + | RBC | 2.87 (L) | 4.30 - 5.70 | [facility] | | | | | M/uL | [facility] | | | | | | MEDICAL | | | | | | CENTER - | | | | | | LABORATORY | | + + + + + + | Hemoglobin | 8.7 (L) | 13.5 - 18.0 | [facility] | | | | | g/dL | [facility] | | | | | | MEDICAL | | | | | | CENTER - | | | | | | LABORATORY | | + + + + + + | Hematocrit | 26.5 (L) | 40.0 - 51.0 % | [facility] | | | | | | [facility] | | | | | | [facility] | | | | | | CENTER - | | | | | | LABORATORY | | + + + + + + | MCV | 92.5 | 83.0 - 101.0 fL | [facility] | | | | | | [facility] | | | | | | [facility]ICAL | | | | | | CENTER - | | | | | | LABORATORY | | + + + + + + | MCH | 30.4 | 28.0 - 35.0 pg | [facility] | | | | | | [facility] | | | | | | MED[facility] | | | | | | CENTER - | | | | | | LABORATORY | | + + + + + + | MCHC | 32.8 | 32.0 - 36.0 | [facility] | | | | | g/dL | [facility] | | | | | | [facility] | | | | | | CENTER - | | | | | | LABORATORY | | + + + + + + | RDW-CV | 15.9 (H) | <15.0 % | [facility] | | | | | | [facility] | | | | | | MEDICAL | | | | | | CENTER - | | | | | | LABORATORY | | + + + + + + | Platelet | 158 | 140 - 440 K/uL | [facility] | | | Count | | | [facility] | | | | | | MEDICAL | | | | | | CENTER - | | | | | | LABORATORY | | + + + + + + | MPV | 7.7 | fL | [facility] | | | [...] [address] | [place] | [phone] | | [facility] | | [address] | | | - LABORATORY | | | | + + + + + Basic Metabolic Panel (12/20/2016 4:18 AM PDT) + + + + + + | Component | Value | Ref Range | Performed | Pathologist | | | | | At | Signature | + + + + + + | Na | 139 | 136 - 149 | [facility] | | | | | mmol/L | [facility] | | | | | | MEDICAL | | | | | | CENTER - | | | | | | LABORATORY | | + + + + + + | K | 4.1 | 3.5 - 5.1 | [facility] | | | | | mmol/L | [facility] | | | | | | MEDICAL | | | | | | CENTER - | | | | | | LABORATORY | | + + + + + + | Cl | 106 | 98 - 109 mmol/L | [facility] | | | | | | [facility] | | | | | | MEDICAL | | | | | | CENTER - | | | | | | LABORATORY | | + + + + + + | CO2 | 24 | 24 - 31 mmol/L | [facility] | | | | | | [facility] | | | | | | MEDICAL | | | | | | CENTER - | | | | | | LABORATORY | | + + + + + + | Anion Gap | 9 | 3 - 16 mmol/L | [facility] | | | | | | [facility] | | | | | | MEDICAL | | | | | | CENTER - | | | | | | LABORATORY | | + + + + + + | Glucose | 119 (H) | 70 - 109 mg/dL | [facility] [...] + + + + | Creatinine | 1.19 | 0.60 - 1.30 | [facility] | [...] mL/min/1.73m2 | [facility] | | | [facility] | RATE,ESTIMATED | | MEDICAL | | | | mL/min/1.62n7Aoxr than | | CENTER - | | [...] + + + + | Calcium | 8.1 (L) | 8.3 - 10.5 | [facility] | | | | | mg/dL | [facility] | | | | | | MEDICAL | | | | | | CENTER - | | | | | | LABORATORY | | + + + + + + | BUN/Creatin | 14.3 | | [facility] | | | ine [...] [address] | [place] | [phone] | | [facility] | | [address] | | | - LABORATORY | | | | + + + + + Culture, MRSA (12/19/2016 8:52 PM PDT) + + + + + + | Component | Value | Ref Range | Performed | Pathologist | | | | | At | Signature | + + + + + + | Culture | Negative for MRSA by | | [facility] | | | | chromogenic agar method | | [facility] | | | | | | MEDICAL | | | | | | CENTER - | | | | | | LABORATORY | | + + + + + + | Culture | 1+ Staphylococcus | | [facility] | | | | coagulase positive | | [facility] | | | | | | MEDICAL | | | | | | CENTER - | | | | | | LABORATORY | | + + + + + + + + | Specimen | + + | Respiratory - Both | | anterior nares (body | | structure) | + + + + + + + | Performing | Address | City/State/Zipcode | Phone Number | | Organization | | | | + + + + + | [facility] | [address] | [place] | [phone] | | [facility] | | [address] | | | - LABORATORY | | | | + + + + + XR Femur Left 2+Vw (12/19/2016 7:19 PM PDT) + + | Specimen | + + | | + + + + + | Narrative | Performed At | + + + | XR FEMUR LEFT 2+VW 12/19/2016 4:30 PM HISTORY: intra op. | [facility] | | COMPARISON: None. FINDINGS: Intraoperative x-rays show placement | | | of an intramedullary yulisa through the left femur. IMPRESSION - | | | ORIF of left femur. Dictated and Signed by: Nikko Morejon MD | | | Electronically signed: 12/19/2016 7:22 PM | | + + + + + | Procedure Note | + + | Zac Pierce Results In - 12/19/2016 7:25 PM PDT XR FEMUR LEFT 2+VW 12/19/2016 4:30 PM | | | | HISTORY: intra op. | | | | COMPARISON: None. | | | | FINDINGS: | | Intraoperative x-rays show placement of an intramedullary yulisa through the left | | femur. | | | | IMPRESSION - | | ORIF of left femur. | | | | Dictated and Signed by: Nikko Morejon MD | | Electronically signed: 12/19/2016 7:22 PM | + + + +---------+ + + | Performing | Address | City/State/[facility] | Phone Number | | Organization | | | | + +---------+ + + | [facility] | | | | + +---------+ + + XR Femur Right 2+Vw (12/19/2016 7:18 PM PDT) + + | Specimen | + + | | + + + + + | Narrative | Performed At | + + + | XR FEMUR RIGHT 2+VW 12/19/2016 4:30 PM HISTORY: intra op. | [facility] | | COMPARISON: None. FINDINGS: Intraoperative x-rays show placement | | | of an intramedullary yulisa through the right femur. IMPRESSION - | | | ORIF of right femur. Dictated and Signed by: Nikko Morejon MD | | | Electronically signed: 12/19/2016 7:22 PM | | + + + + + | Procedure Note | + + | Stan, Rad Results In - 12/19/2016 7:25 PM PDT XR FEMUR RIGHT 2+VW 12/19/2016 4:30 PM | | | | HISTORY: intra op. | | | | COMPARISON: None. | | | | FINDINGS: | | Intraoperative x-rays show placement of an intramedullary yulisa through the right | | femur. | | | | IMPRESSION - | | ORIF of right femur. | | | | Dictated and Signed by: Nikko Morejon MD | | Electronically signed: 12/19/2016 7:22 PM | + + + +---------+ + + | Performing | Address | City/State/Zipcode | Phone Number | | Organization | | | | + +---------+ + + | [facility] | | | | + +---------+ + + FL C-Arm Stats No Charge (12/19/2016 7:17 PM PDT) + + | Specimen | + + | | + + + + + | Narrative | Performed At | + + + | No Radiologist interpretation, please see Chart Review. | [facility] | + + + + +---------+ + + | Performing | Address | City/State/Zipcode | Phone Number | | Organization | | | | + +---------+ + + | [facility] | | | | + +---------+ + + Sally BNENETT (12/19/2016 3:06 PM PDT) + + + + + + | Component | Value | Ref Range | Performed | Pathologist | | | | | At | Signature | + + + + + + | Prothrombin | 21.2 (H) | 11.3 - 13.9 | [facility] | | | Time | | seconds | [facility] | | | | | | [facility]ICAL | | | | | | CENTER - | | | | | | LABORATORY | | + + + + + + | INR | 1.78 (H)Comment: Usual | 0.90 - 1.10 | [...] [facility] | [address] | [place], [place] | [phone] | | [facility] | | [address] | | | - LABORATORY | | | | + + + + + CBC no Differential (12/19/2016 6:18 AM PDT) + + + + + + | Component | Value | Ref Range | Performed | Pathologist | | | | | At | Signature | + + + + + + | WBC | 6.6 | 4.0 - 11.0 K/uL | [facility] | | | | | | [facility] | | | | | | MEDICAL | | | | | | CENTER - | | | | | | LABORATORY | | + + + + + + | RBC | 3.60 (L) | 4.30 - 5.70 | [facility] | | | | | M/uL | [facility] | | | | | | MEDICAL | | | | | | CENTER - | | | | | | LABORATORY | | + + + + + + | Hemoglobin | 10.9 (L) | 13.5 - 18.0 | [facility] | | | | | g/dL | [facility] | | | | | | MEDICAL | | | | | | CENTER - | | | | | | LABORATORY | | + + + + + + | Hematocrit | 33.4 (L) | 40.0 - 51.0 % | [facility] | | | | | | [facility] | | | | | | MEDICAL | | | | | | CENTER - | | | | | | LABORATORY | | + + + + + + | MCV | 92.9 | 83.0 - 101.0 fL | [facility] | | | | | | [facility] | | | | | | MEDICAL | | | | | | CENTER - | | | | | | LABORATORY | | + + + + + + | MCH | 30.2 | 28.0 - 35.0 pg | [facility] | | | | | | [facility] | | | | | | [facility]ICAL | | | | | | CENTER - | | | | | | LABORATORY | | + + + + + + | MCHC | 32.6 | 32.0 - 36.0 | [facility] | [...] + + + + | Platelet | 187 | 140 - 440 K/uL | [facility] | | | Count | | | [facility] | | | | | | MEDICAL | | | | | | CENTER - | | | | | | LABORATORY | | + + + + + + | MPV | 8.0 | fL | [facility] | | | [...] + | [facility] | [address] | [place] | [phone] | | [facility] | | [address] | | | - LABORATORY | | | | + + + + + Basic Metabolic Panel (12/19/2016 6:18 AM PDT) + + + + + + | Component | Value | Ref Range | Performed | Pathologist | | | | | At | Signature | + + + + + + | Na | 139 | 136 - 149 | [facility] | | | | | mmol/L | [facility] | | | | | | MEDICAL | | | | | | CENTER - | | | | | | LABORATORY | | + + + + + + | K | 4.5 | 3.5 - 5.1 | [facility] | | | | | mmol/L | [facility] | | | | | | MEDICAL | | | | | | CENTER - | | | | | | LABORATORY | | + + + + + + | Cl | 107 | 98 - 109 mmol/L | [facility] | | | | | | [facility] | | | | | | MEDICAL | | | | | | CENTER - | | | | | | LABORATORY | | + + + + + + | CO2 | 24 | 24 - 31 mmol/L | [facility] | | | | | | [facility] | | | | | | MEDICAL | | | | | | CENTER - | | | | | | LABORATORY | | + + + + + + | Anion Gap | 8 | 3 - 16 mmol/L | [facility] | | | | | | [facility] | | | | | | MEDICAL | | | | | | CENTER - | | | | | | LABORATORY | | + + + + + + | Glucose | 97 | 70 - 109 mg/dL | [facility] [...] + + + + | Creatinine | 1.23 | 0.60 - 1.30 | [facility] | | | | | mg/dL | [facility] | | | | | | MEDICAL | | | | | | CENTER - | | | | | | LABORATORY | | + + + + + + | eGFR if not | 56 (L)Comment: | >=60 | [facility] | | | | GLOMERULAR FILTRATION | mL/min/1.73m2 | [facility] | | | [facility] | RATE,ESTIMATED | | MEDICAL | | | | mL/min/1.23j8Ybdd than | | CENTER - | | [...] + + + + | Calcium | 8.3 | 8.3 - 10.5 | [facility] | | | | | mg/dL | [facility] | | | | | | MEDICAL | | | | | | CENTER - | | | | | | LABORATORY | | + + + + + + | BUN/Creatin | 15.4 | | [facility] | | | ine [...] [address] | [place] | [phone] | | [facility] | | [address] | | | - LABORATORY | | | | + + + + + Magnesium (12/19/2016 6:18 AM PDT) + +-------+ + + + | Component | Value | Ref Range | Performed | Pathologist | | | | | At | Signature | + +-------+ + + + | Magnesium | 1.8 | 1.8 - 2.5 mg/dL | [facility] | | | | [...] [address] | [place] | [phone] | | [facility] | | [address] | | | - LABORATORY | | | | + + + + + Type and Screen (12/19/2016 6:18 AM PDT) + + + + + + | Component | Value | Ref Range | Performed | Pathologist | | | | | At | Signature | + + + + + + | ABO | O | | [facility] | | | | | | [facility] | | | | | | MEDICAL | | | | | | CENTER - | | | | | | BLOOD BANK | | + + + + + + | Rh Type | Positive | | [facility] | | | | | | [facility] | | | | | | MEDICAL | | | | | | CENTER - | | | | | | BLOOD BANK | | + + + + + + | Antibody | Negative | | [facility] | | | Screen | | | [facility] | | | | | | MEDICAL | | | | | | CENTER - | | | | | | BLOOD BANK | | + + + + + + + + | Specimen | + + | Blood | + + + + + + + | Performing | Address | City/State/Zipcode | Phone Number | | Organization | | | | + + + + + | [facility] | [address] | [place] | | | [facility] | | [address] | | | - BLOOD BANK | | | | + + + + + Sally INR (12/19/2016 6:17 AM PDT) + + + + + + | Component | Value | Ref Range | Performed | Pathologist | | | | | At | Signature | + + + + + + | Prothrombin | 28.5 (H) | 11.3 - 13.9 | [facility] | | | Time | | seconds | [facility] | | | | | | MEDICAL | | | | | | CENTER - | | | | | | LABORATORY | | + + + + + + | INR | 2.59 (H)Comment: Usual | 0.90 - 1.10 | [...] + | [facility] | [address] | [place] | [phone] | | [facility] | | [address] | | | - LABORATORY | | | | + + + + + ECG 12 lead (12/18/2016 10:24 PM PDT) + + + + + + | Component | Value | Ref Range | Performed | Pathologist | | | | | At | Signature | + + + + + + | VENTRICULAR | 89 | BPM | [facility] | | | RATE EKG | | | | | + + + + + + | ATRIAL RATE | 277 | BPM | [facility] | | + + + + + + | QRS | 92 | ms | [facility] | | | DURATION | | | | | + + + + + + | Q-T | 398 | ms | [facility] | | | INTERVAL | | | | | + + + + + + | Q-T | 484 | ms | [facility] | | | INTERVAL | | | | | | (CORRECTED) | | | | | + + + + + + | QRS AXIS | -6 | degrees | [facility] | | + + + + + + | T AXIS | -12 | degrees | [facility] | | + + + + + + | INTERPRETAT | Atrial flutter with | | [facility] | | | ION TEXT | variable AV | | | | | | blockNonspecific ST | | | | | | abnormalityProlonged | | | | | | QTAbnormal ECGNo | | | | | | previous ECGs | | | | | | availableConfirmed by | | | | | | ROMERO FULLER MD ([id number]) | | | | | | on 12/19/2016 6:58:41 AM | | | | + + + [...] | | + +---------+ + + XR Chest PA or AP (12/18/2016 5:50 PM PDT) + + | Specimen | + + | | + + + + + | Narrative | Performed At | + + + | External films for comparison only - no result from Alex. | [facility] | + + + + +---------+ + + | Performing | Address | City/State/Zipcode | Phone Number | | Organization | | | | + +---------+ + + | [facility] | | | | + +---------+ + + XR Femur Left 2+Vw (12/18/2016 5:30 PM PDT) + + | Specimen | + + | | + + + + + | Narrative | Performed At | + + + | External films for comparison only - no result from Alex. | [facility] | + + + + +---------+ + + | Performing | Address | City/State/Zipcode | Phone Number | | Organization | | | | + +---------+ + + | [facility] | | | | + +---------+ + + XR Femur Right 2+Vw (12/18/2016 5:20 PM PDT) + + | Specimen | + + | | + + + + + | Narrative | Performed At | + + + | External films for comparison only - no result from Alex. | [facility] | + + + + +---------+ + + | Performing | Address | City/State/Zipcode | Phone Number | | Organization | | | | + +---------+ + + | [facility] | | | | + +---------+ + + LABS - EXTERNAL SCAN (12/18/2016 12:00 AM PDT) + + + | Narrative | Performed At | + + + | Ordered by an | | | unspecified provider. | | + + + ECG - EXTERNAL SCAN (12/18/2016 12:00 AM PDT) + + + | Narrative | Performed At | + + + | Ordered by an | | | unspecified provider. | | + + + documented in this encounter Visit Diagnoses Not on filedocumented in this encounter Administered Medications + +--------+ +--------+------+------+ | Medication Order | MAR | Action | Dose | Rate | Site | | | Action | Date | | | | + +--------+ +--------+------+------+ | acetaminophen (TYLENOL) tablet | Given | 12/25/19 | 650 mg | | | | 650 mg 650 mg, Oral, EVERY 4 | | 17 7:50 | | | | | HOURS PRN, Pain, Fever, Starting | | AM PDT | | | | | Sandy 12/20/16 at 1931 | | | | | | + +--------+ +--------+------+------+ +-------+ +--------+---+---+ | Given | 12/23/19 | 650 mg | | | | | 17 6:01 | | | | | | PM PDT | | | | +-------+ +--------+---+---+ | Given | 12/22/19 | 650 mg | | | | | 17 6:08 | | | | | | PM PDT | | | | +-------+ +--------+---+---+ + +---+ | | | + +---+ | albuterol-ipratropium (DUONEB) | | | 2.5-0.5 mg/3 mL nebulizer | | | solution 3 mL 3 mL, | | | Nebulization, RT EVERY 4 HOURS | | | PRN, Shortness of Breath, | | | Starting 12/25/16 at 1430 | | + +---+ | | | + +---+ + +-------+ +------+---+---+ | alteplase (CATHFLO ACTIVASE) | Given | 12/31/19 | 2 mg | | | | injection 2 mg 2 mg, | | 17 10:13 | | | | | Intracatheter, PRN, Line patency, | | AM PDT | | | | | Starting Sat12/25/16 at 0956, 2 | | | | | | | mg, | | | | | | + +-------+ +------+---+---+ +-------+ +------+---+---+ | Given | 12/26/19 | 2 mg | | | | | 17 1:03 | | | | | | PM PDT | | | | +-------+ +------+---+---+ | Given | 12/26/19 | 2 mg | | | | | 17 10:09 | | | | | | AM PDT | | | | +-------+ +------+---+---+ +---+---+ | | | +---+---+ + +-------+ +--------+---+---+ | amiodarone (PACERONE) tablet | Given | 01/01/20 | 200 mg | | | | 200 mg 200 mg, Oral, DAILY, | | 17 9:09 | | | | | First dose on Sat12/19/16 at 0900 | | AM PDT | | | | + +-------+ +--------+---+---+ +-------+ +--------+---+---+ | Given | 12/31/19 | 200 mg | | | | | 17 9:37 | | | | | | AM PDT | | | | +-------+ +--------+---+---+ | Given | 12/30/19 | 200 mg | | | | | 17 8:55 | | | | | | AM PDT | | | | +-------+ +--------+---+---+ +---+---+ | | | +---+---+ + +-------+ +-------+---+---+ | atorvaSTATin (LIPITOR) tablet | Given | 12/31/19 | 20 mg | | | | 20 mg 20 mg, Oral, NIGHTLY, | | 17 8:21 | | | | | First dose on Sat12/18/16 at 2230 | | PM PDT | | | | + +-------+ +-------+---+---+ +-------+ +-------+---+---+ | Given | 12/30/19 | 20 mg | | | | | 17 8:54 | | | | | | PM PDT | | | | +-------+ +-------+---+---+ | Given | 12/29/19 | 20 mg | | | | | 17 8:34 | | | | | | PM PDT | | | | +-------+ +-------+---+---+ +---+---+ | | | +---+---+ + +-------+ +--------+---+ + | bupivacaine 0.25%-EPINEPHrine | Given | 12/20/19 | 20 mLs | | Hip-Left | | 1:200,000 (PF) injection PRN, | | 17 7:16 | | | | | Starting 12/19/16 at 1800, | | PM PDT | | | | | Intra-op | | | | | | + +-------+ +--------+---+ + +-------+ +--------+---+ + | Given | 12/20/19 | 30 mLs | | Hip-Righ | | | 17 6:00 | | | t | | | PM PDT | | | | +-------+ +--------+---+ + +---+---+ | | | +---+---+ + +-------+ +--------+---+---+ | docusate sodium (COLACE) | Given | 12/27/19 | 100 mg | | | | capsule 100 mg 100 mg, Oral, 2 | | 17 9:08 | | | | | TIMES DAILY PRN, Constipation, | | AM PDT | | | | | Starting 12/18/16 at 2208, 1st | | | | | | | line agent for constipation | | | | | | | relief., | | | | | | + +-------+ +--------+---+---+ +-------+ +--------+---+---+ | Given | 12/26/19 | 100 mg | | | | | 17 8:54 | | | | | | PM PDT | | | | +-------+ +--------+---+---+ | Given | 12/25/19 | 100 mg | | | | | 17 7:50 | | | | | | AM PDT | | | | +-------+ +--------+---+---+ +---+---+ | | | +---+---+ + +-------+ +--------+---+ + | heparin 5,000 units/mL | Given | 01/01/20 | 5,000 | | Abdomen- | | injection 5,000 Units 5,000 | | 17 9:09 | Units | | RUQ | | Units, Subcutaneous, EVERY 12 | | AM PDT | | | | | HOURS (2 times per day), First | | | | | | | dose on [facility] 12/27/16 at 1015 | | | | | | + +-------+ +--------+---+ + +-------+ +--------+---+ + | Given | 12/31/19 | 5,000 | | Abdomen- | | | 17 8:21 | Units | | RUQ | | | PM PDT | | | | +-------+ +--------+---+ + | Given | 12/31/19 | 5,000 | | Abdomen- | | | 17 9:36 | Units | | LLQ | | | AM PDT | | | | +-------+ +--------+---+ + +---+---+ | | | +---+---+ + +-------+ +-------+---+---+ | metoprolol tartrate (LOPRESSOR) | Given | 01/01/20 | 50 mg | | | | tablet 50 mg 50 mg, Oral, 2 | | 17 9:08 | | | | | TIMES DAILY, First dose (after | | AM PDT | | | | | last modification) on 12/29/16 | | | | | | | at 2100, Hold for SBP <90, | | | | | | + +-------+ +-------+---+---+ +-------+ +-------+---+---+ | Given | 12/31/19 | 50 mg | | | | | 17 8:21 | | | | | | PM PDT | | | | +-------+ +-------+---+---+ | Given | 12/31/19 | 50 mg | | | | | 17 9:37 | | | | | | AM PDT | | | | +-------+ +-------+---+---+ +---+---+ | | | +---+---+ + +-------+ +-------+---+---+ | midodrine (PROAMATINE) tablet | Given | 01/01/20 | 10 mg | | | | 10 mg 10 mg, Oral, 3 TIMES DAILY | | 17 11:59 | | | | | EARLY, First dose (after last | | AM PDT | | | | | modification) on 12/30/16 at | | | | | | | 0700, Avoid dosing after evening | | | | | | | meal or within 4 hours of | | | | | | | bedtime., | | | | | | + +-------+ +-------+---+---+ +-------+ +-------+---+---+ | Given | 01/01/20 | 10 mg | | | | | 17 6:28 | | | | | | AM PDT | | | | +-------+ +-------+---+---+ | Given | 12/31/19 | 10 mg | | | | | 17 5:54 | | | | | | PM PDT | | | | +-------+ +-------+---+---+ +---+---+ | | | +---+---+ + + + +---------+-------+---+ | norepinephrine in NS (LEVOPHED) | Rate/Dos | 12/25/19 | 3 | 11.3 | | | 16 mcg/mL infusion 1-30 mcg/min | e Change | 17 8:17 | mcg/min | mL/hr | | | (3.75-112.5 mL/hr, rounded to | | AM PDT | | | | | 3.8-112.5 mL/hr), at 3.8-112.5 | | | | | | | mL/hr, Intravenous, TITRATED, | | | | | | | Starting 12/21/16 at 1030, | | | | | | | Initial dose: 3 mcg/min, Goal: | | | | | | | SBP greater than 90, MAP 65 and | | | | | | | greater | | | | | | + + + +---------+-------+---+ + + +---------+-------+---+ | Rate/Dose Change | 12/24/19 | 5 | 18.8 | | | | 17 6:17 | mcg/min | mL/hr | | | | PM PDT | | | | + + +---------+-------+---+ | Rate/Dose Change | 12/24/19 | 3 | 11.3 | | | | 17 5:00 | mcg/min | mL/hr | | | | PM PDT | | | | + + +---------+-------+---+ +---+---+ | | | +---+---+ + +-------+ +------+---+---+ | oxyCODONE (ROXICODONE) tablet | Given | 12/31/19 | 5 mg | | | | 5-10 mg 5-10 mg, Oral, EVERY 4 | | 17 2:32 | | | | | HOURS PRN, Pain, Starting Tue | | PM PDT | | | | | 12/18/16 at 2337 | | | | | | + +-------+ +------+---+---+ +-------+ +------+---+---+ | Given | 12/30/19 | 5 mg | | | | | 17 2:35 | | | | | | PM PDT | | | | +-------+ +------+---+---+ | Given | 12/30/19 | 5 mg | | | | | 17 9:01 | | | | | | AM PDT | | | | +-------+ +------+---+---+ +---+---+ | | | +---+---+ + +-------+ +------+---+---+ | polyethylene glycol (MIRALAX) | Given | 12/25/19 | 17 g | | | | powder 17 g 17 g, Oral, DAILY | | 17 7:50 | | | | | PRN, Constipation, Starting Tue | | AM PDT | | | | | 12/18/16 at 2208, If docusate and | | | | | | | senna ineffective or not | | | | | | | ordered., | | | | | | + +-------+ +------+---+---+ +---+---+ | | | +---+---+ + +-------+ +--------+---+---+ | senna (SENOKOT) tablet 8.6 mg | Given | 12/26/19 | 8.6 mg | | | | 8.6 mg, Oral, 2 TIMES DAILY PRN, | | 17 8:54 | | | | | Constipation, Starting Tue | | PM PDT | | | | | 12/18/16 at 2208, If docusate | | | | | | | ineffective or not ordered., | | | | | | + +-------+ +--------+---+---+ +-------+ +--------+---+---+ | Given | 12/24/19 | 8.6 mg | | | | | 17 11:31 | | | | | | PM PDT | | | | +-------+ +--------+---+---+ | Given | 12/23/19 | 8.6 mg | | | | | 17 10:28 | | | | | | PM PDT | | | | +-------+ +--------+---+---+ +---+---+ | | | +---+---+ + +-------+ +-------+---+---+ | simethicone (MYLICON) chewable | Given | 12/28/19 | 80 mg | | | | tablet 80 mg 80 mg, Oral, 4 | | 17 9:01 | | | | | TIMES DAILY Alvaro BENNETT Starting | | PM PDT | | | | | 12/25/16 at 1709 | | | | | | + +-------+ +-------+---+---+ +-------+ +-------+---+---+ | Given | 12/28/19 | 80 mg | | | | | 17 6:15 | | | | | | PM PDT | | | | +-------+ +-------+---+---+ | Given | 12/27/19 | 80 mg | | | | | 17 9:08 | | | | | | AM PDT | | | | +-------+ +-------+---+---+ +---+---+ | | | +---+---+ documented in this encounter
--- OUTSIDE RECORDS SUMMARY | ~2019-11-20 | XMS | Encounter Summary ---
Demographics + + + | Address | [address] | | | [place] [address] | + + + | Home Phone | | + + + | Preferred Language | Unknown | + + + | Marital Status | | + + + | Taoism Affiliation | Unknown | + + + | Race | Unknown | + + + | Ethnic Group | Unknown | + + + Author + + + | Author | [facility] | | | and [place] | + + + | Organization | [facility] | | | and [place] [...] [place] | | | | | [address] | | + + + + + Care Team Providers + +------+ + | Care Engineering Mgr Name | Role | Phone | + [...] Cason, | | | | | | Carotid | DNP [address] | | | | | | stenosis, | [address] | | | | | | bilateral | [place] | | | | | | Procedures | [place] | | | | | | [facility] Carotid | [id number] | | | | | | Duplex | Phone: | | | | | | Bilateral | [phone] | | | | | | | Fax: | | | | | | | [phone] | | +--------+--------+ + + + + Encounter Details +--------+ + + + + | Date | Type | Department | Care Team | Description | +--------+ + + + + | 07/02/ | Orders Only | [facility] | Peggy Cason, DNP | Carotid stenosis, | | 2018 | | VASCULAR SURGERY | [address] | bilateral (Primary | | | | [address] | [place] | Dx) | | | | [place] | [address] | | | | | [id number] | | | | | | [phone] | | | +--------+ + + + [...] | | | | | [place], [place] | | | | | | [id number] | | | | | | | | +--------+---------+ + + + documented as of this encounter Results [facility] Carotid Duplex Bilateral (07/02/2019 11:45 AM PST) + + | Specimen | + + | | + + + + + | Impressions | Performed At | + + + | 1. 50-69% stenosis of the right proximal ICA. 2. Probable 50-69% | [facility] | | proximal left ICA stenosis,, due to elevated flow velocity in the mid | | | ICA. Proximal ICA not well evaluated due to heavily calcified | | | arterial wall causing shadowing. 3. Greater than 70% stenosis of the | | | distal CCA/arterial bulb junction, with 4.5 peak systolic flow | | | velocity increase. This has likely slightly worsened. 4. 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 5. Transitional left vertebral arterial flow suggesting left | | | subclavian stenosis. 6. If clinically indicated, CTA analysis could | | | be helpful for to further evaluate stenoses, delineated above. | | | Internal Carotid Artery Diagnostic Grades Grade 1: Stenosis = | | | 01-50% / PSV <125 cm/sec / EDV (cm/s)<40 cm/sec (mild plaque) Grade | | | 2: Stenosis = 01-50% / PSV <125 cm/sec / EDV (cm/s)<40 cm/sec | | | (moderate plaque) Grade 3: Stenosis = 50-69% / PSV >125 cm/sec / EDV | | | (cm/s)>40 cm/sec Grade 4: Stenosis = 70-95% / PSV >230 cm/sec / EDV | | | (cm/s)>100 cm/sec Grade 5: Stenosis = 90-95% / PSV <125 cm/sec / EDV | | | (cm/s)<40 cm/sec Grade 6: Stenosis Occluded Society of | | | Radiologists in Ultrasound (SRU) criteria applied for internal | | | carotid stenosis determination. Signed by: Katharine Giraldo, | | | David Sign Date/Time: 07/03/2019 9:57 AM | | + + + + + + | Narrative | Performed At | + + + | CAROTID DUPLEX ULTRASOUND CLINICAL INFORMATION: Carotid | [facility] | | stenosis. COMPARISON: [facility] CAROTID DUPLEX BILATERAL (01/07/2019); | | | VAS CAROTID DUPLEX BILATERAL (02/03/2018); VAS CAROTID DUPLEX | | | BILATERAL (12/06/2016); PROCEDURE: Evaluation of the extracranial | | | carotid and vertebral arteries with production of real-time images | | | integrating B-mode two-dimensional vascular structure, Doppler | | | spectral analysis and color-flow Doppler imaging. FINDINGS: Peak | | | systolic and diastolic velocities measured in the common and | | | internal carotid arteries. All velocities recorded in cm/sec: | | | Anterior Circulation: Right CCA distal: 61/7, 127/17, 269/30 | | | ICA: 143/13 ECA: 244/18 ICA/CCA: 2.4 Left CCA distal: 39/10 | | | ICA proximal: Could not evaluate due to shadowing. ICA Mid: 152 /29 | | | ECA: 273/0 ICA/CCA: 3.9 Posterior Circulation: Right: | | | Vertebral: 31/0 Retrograde Left: Vertebral: 39/16 Antegrade, | | | transitional flow Chester scale images: Heavily calcified plaque is | | | noted in the right carotid arterial bulb and proximal right ICA, with | | | associated stenoses. Heavily calcified plaque is noted in the left | | | carotid arterial bulb and proximal ICA, with associated stenosis. | | + + + + + | Procedure Note | + + | Stan, Rad Results In - 07/03/2019 10:01 AM PST | | CAROTID DUPLEX ULTRASOUND | | | | CLINICAL INFORMATION: | | Carotid stenosis. | | | | COMPARISON: | | [facility]AS CAROTID DUPLEX BILATERAL (01/07/2019); [facility]AS CAROTID DUPLEX BILATERAL | | (02/03/2018); VAS CAROTID DUPLEX BILATERAL (12/06/2016); | | | | PROCEDURE: | | Evaluation of the extracranial carotid and vertebral arteries with | | production of real-time images integrating B-mode two-dimensional | | vascular structure, Doppler spectral analysis and color-flow Doppler | | imaging. | | | | FINDINGS: | | Peak systolic and diastolic velocities measured in the common and | | internal carotid arteries. All velocities recorded in cm/sec: | | | | Anterior Circulation: | | | | Right | | CCA distal: 61/7, 127/17, 269/30 | | ICA: 143/13 | | ECA: 244/18 | | ICA/CCA: 2.4 | | | | Left | | CCA distal: 39/10 | | ICA proximal: Could not evaluate due to shadowing. | | ICA Mid: 152 /29 | | ECA: 273/0 | | ICA/CCA: 3.9 | | | | Posterior Circulation: | | | | Right: | | Vertebral: 31/0 Retrograde | | | | Left: | | Vertebral: 39/16 Antegrade, transitional flow | | | | Chester scale images: Heavily calcified plaque is noted in the right | | carotid arterial bulb and proximal right ICA, with associated stenoses. | | Heavily calcified plaque is noted in the left carotid arterial bulb and | | proximal ICA, with associated stenosis. | | | | IMPRESSION: | | 1. 50-69% stenosis of the right proximal ICA. | | 2. Probable 50-69% proximal left ICA stenosis,, due to elevated flow | | velocity in the mid ICA. Proximal ICA not well evaluated due to | | heavily calcified arterial wall causing shadowing. | | 3. Greater than 70% stenosis of the distal CCA/arterial bulb junction, | | with 4.5 peak systolic flow velocity increase. This has likely | | slightly worsened. | | 4. Findings suggest right subclavian steal, with retrograde vertebral | | arterial flow. | | 5. Transitional left vertebral arterial flow suggesting left subclavian | | stenosis. | | 6. If clinically indicated, CTA analysis could be helpful for to | | further evaluate stenoses, delineated above. | | | | | | Internal Carotid Artery Diagnostic Grades | | | | Grade 1: Stenosis = 01-50% / PSV <125 cm/sec / EDV (cm/s)<40 cm/sec | | (mild plaque) | | Grade 2: Stenosis = 01-50% / PSV <125 cm/sec / EDV (cm/s)<40 cm/sec | | (moderate plaque) | | Grade 3: Stenosis = 50-69% / PSV >125 cm/sec / EDV (cm/s)>40 cm/sec | | Grade 4: Stenosis = 70-95% / PSV >230 cm/sec / EDV (cm/s)>100 cm/sec | | Grade 5: Stenosis = 90-95% / PSV <125 cm/sec / EDV (cm/s)<40 cm/sec | | Grade 6: Stenosis Occluded | | | | Society of Radiologists in Ultrasound (SRU) criteria applied for | | internal carotid stenosis determination. | | | | | | | | Signed by: Katharine Giraldo Sean | | Sign Date/Time: 07/03/2019 9:57 AM | + + + +---------+ + + | Performing | Address | City/State/Zipcode | Phone Number | | Organization | | | | + +---------+ + + | [facility] | | | | + +---------+ + + documented in this encounter Visit Diagnoses + + | Diagnosis | + + | Carotid stenosis, bilateral - Primary Occlusion and stenosis of multiple and | | bilateral precerebral arteries without mention of cerebral infarction | + + documented in this encounter"
--- OUTSIDE RECORDS SUMMARY | ~2019-11-20 | XMS | Clinical Summary ---
Demographics + + + | Address | [address] | | | [place] [address] | + + + | Home Phone | | + + + | Preferred Language | Unknown | + + + | Marital Status | | + + + | Pentecostal Affiliation | Unknown | + + + | Race | Unknown | + + + | Ethnic Group | Unknown | + + + Author + + + | Author | [facility] | | | and [place] | + + + | Organization | [facility] | | | and [...] [place] | | | | | [address] | | + + + + + Care Team Providers + +------+ + | Care Cloud Services Architect Name | Role | Phone | + +------+ + | Carlos Alberto Galeas MD | PCP | | + +------+ + Allergies + [...] | + + + + + + Medications + + + +---------+------+------+-------+ | Medication | Sig | Dispensed | Refills | Star | End | Statu | | | | | | t | Date | s | | | | | | Date | | | + + + +---------+------+------+-------+ | calcium-vitamin D | Take 1 tablet by | | 0 | | | Activ | | (CALCIUM 600+D) 600 | mouth 2 times daily. | | | | | e | | mg-200 units per | | | | | | | | tablet | | | | | | | + + + +---------+------+------+-------+ | Multiple | Take 1 tablet by | | 0 | | | Activ | | Vitamins-Minerals | mouth Daily. | | | | | e | | (CENTRUM SILVER) | | | | | | | | TABS | | | | | | | + + + +---------+------+------+-------+ | tamsulosin | Take 2 capsules by | 30 | 1 | 12/21 | | Activ | | (FLOMAX) 0.4 mg CAPS | mouth daily (after | capsule | | 04/10 | | e | | | breakfast). | | | 17 | | | + + + +---------+------+------+-------+ +---+ + | | Additional | | | InformationPatient | | | taking differently: | | | 0.4 mg Oral DAILY | | | AFTER BREAKFAST, | | | Reported on | | | 12/30/2018 1:55 PM | +---+ + + + +--------+---+------+---+-------+ | digoxin (LANOXIN) | Take 125 mcg by | | 0 | 05/0 | | Activ | | 125 mcg tablet | mouth. | | | 2/20 | | e | | | | | | 18 | | | + + +--------+---+------+---+-------+ | furosemide (LASIX) | Take 20 mg by mouth. | | 0 | | | Activ | | 20 mg tablet | | | | | | e | + + +--------+---+------+---+-------+ | warfarin | Take 5 mg by mouth | | 0 | | | Activ | | (COUMADIN) 5 mg | Daily. 5 mg on Tu, | | | | | e | | tablet | Isaac Fernando Sat, | | | | | | | | Sun | | | | | | + + +--------+---+------+---+-------+ | warfarin | Take 3 mg by mouth | | 0 | | | Activ | | (COUMADIN) 3 MG | Daily. 3 mg on Mon | | | | | e | | tablet | and Fri | | | | | | + + +--------+---+------+---+-------+ | metoprolol | Take 25 mg by mouth | | 0 | | | Activ | | tartrate (LOPRESSOR) | 2 times daily. | | | | | e | | 25 mg tablet | | | | | | | + + +--------+---+------+---+-------+ | KLOR-CON M20 20 | | | 0 | 02/1 | | Activ | | MEQ ER tablet | | | | 7/20 | | e | | | | | | 19 | | | + + +--------+---+------+---+-------+ | tocopherol | vitamin E (dl, | | 0 | | | Activ | | (VITAMIN E) 400 | acetate) 400 unit | | | | | e | | units capsule | capsule Take by oral | | | | | | | | route. | | | | | | + + +--------+---+------+---+-------+ | Ascorbic Acid | Take 1 capsule by | | 0 | | | Activ | | (VITAMIN C) 500 MG | mouth Daily. | | | | | e | | CAPS | | | | | | | + + +--------+---+------+---+-------+ | amiodarone | Take 1 tablet by | 60 | 3 | 03/0 | | Activ | | (PACERONE) 200 mg | mouth Daily. | tablet | | 5/20 | | e | | tablet | | | | 20 | | | + + +--------+---+------+---+-------+ | clopidogrel | Take 1 tablet by | 60 | 3 | 03/0 | | Activ | | (PLAVIX) 75 mg | mouth Daily. | tablet | | 2/20 | | e | | tablet | | | | 20 | | | + + +--------+---+------+---+-------+ Active Problems + + + | Problem | Noted Date | + + + | Atrial fibrillation with RVR | 09/13/2019 | + + + | Postprocedural hypotension | 09/13/2019 | + + + | Chronic diastolic heart failure | 09/11/2019 | + + + | Stage 3 chronic kidney disease | 09/11/2019 | + + + | Chronic anemia | 09/11/2019 | + + + | PAD (peripheral artery disease) | 09/02/2019 | + + + + + | Overview: Added automatically from request for surgery | | [id number] | + + + + + | Bilateral carotid artery stenosis | 06/10/2019 | + + + | Interstitial lung disease | 03/12/2018 | + + + | Subclavian steal syndrome | 02/13/2018 | + + + | Atopic dermatitis | 02/06/2018 | + + + | PVD (peripheral vascular disease) | 02/06/2018 | + + + | Hypotension | 02/06/2018 | + + + | Chronic atrial fibrillation | 02/02/2018 | + + + | Squamous cell carcinoma of upper extremity | 02/02/2018 | + + + | Essential hypertension | 01/30/2018 | + + + | Benign prostatic hyperplasia with lower urinary tract symptoms | 01/07/2017 | + + + | Anticoagulant long-term use | 12/19/2016 | + + + | Femur fracture, left | 12/18/2016 | + + + | Femur fracture, right | 12/18/2016 | + + + Resolved Problems + + + + | Problem | Noted | Resolved | | | Date | Date | + + + + | Cellulitis of left thigh | 09/13/19 | | | | 20 | 0 | + + + + | Acute erythematous eruption of skin | 06/10/20 | | | | 18 | 9 | + + + + | Decreased GFR | 02/14/20 | | | | 18 | 9 | + + + + | Parotiditis | 11/21/19 | | | | 18 | 9 | + + + + | Dehydration, mild | 01/17/20 | | | | 17 | 9 | + + + + | Orthostasis | 01/17/20 | | | | 17 | 9 | + + + + | Urinary retention due to benign prostatic hyperplasia | 01/15/20 | | | | 17 | 9 | + + + + | Acute diastolic heart failure | 01/01/20 | | | | 17 | 9 | + + + + | Acute respiratory failure with hypoxia | 01/01/20 | | | | 17 | 8 | + + + + | Atrial flutter with rapid ventricular response | 01/01/20 | | | | 17 | 8 | + + + + | Postoperative hemorrhagic shock, initial encounter | 01/01/20 | | | | 17 | 9 | + + + + | Elevated INR | 01/01/20 | | | | 17 | 9 | + + + + | Delirium | 01/01/20 | | | | 17 | 9 | + + + + | Atrial flutter | 12/19/19 | | | | 17 | 8 | + + + + Encounters +--------+ + + + + | Date | Type | Specialty | Care Team | Description | +--------+ + + + + | 09/29/ | Hospital | Radiology | Osmin Garber MD | Critical lower limb | | 2019 | Encounter | | | ischemia | +--------+ + + + + | 09/29/ | Office | Vascular Surgery | Osmin Garber MD | Critical limb | | 2019 | Visit | | | ischemia with | | | | | | history of | | | | | | revascularization of | | | | | | same extremity | | | | | | (Primary Dx) | +--------+ + + + + | 09/22/ | Telephone | Vascular Surgery | Anya Ramon, | Imaging Only | | 2019 | | | RN | | +--------+ + + + + | 09/20/ | Telephone | Vascular Surgery | Niharika Man | Follow-up | | 2019 | | | County Engineer | | +--------+ + + + + | 09/11/ | Anesthesia | | Stephen Silva | | | 2019 | Event | | Carlos Alberto SET UP MECHANIC STAMPING MACHINES | | +--------+ + + + + | 09/11/ | Surgery | | Osmin Garber MD | ENDARTERECTOMY | | 2020 | | | | FEMORAL | +--------+ + + + + | 09/11/ | Hospital | Internal Medicine | Osmin Garber MD | PAD (peripheral | | 2020 - | Encounter | | Luther Maurer, | artery disease) | | | | | Sanjuanita Guerrero ([facility]); PAD | | 09/19/ | | | MD Thor | (peripheral artery | | 2019 | | | | disease) ([facility]); | | | | | | Bilateral carotid | | | | | | artery stenosis; | | | | | | Chronic anemia; | | | | | | Chronic atrial | | | | | | fibrillation ([facility]); | | | | | | Chronic diastolic | | | | | | heart failure ([facility]); | | | | | | Essential | | | | | | hypertension; PVD | | | | | | (peripheral vascular | | | | | | disease) ([facility]); | | | | | | Atrial fibrillation | | | | | | with RVR ([facility]) | +--------+ + + + + | 09/10/ | Preadmit | Pre-Admission | Osmin Garber MD | | | 2019 | Visit | Testing | | | +--------+ + + + + | 09/10/ | Telephone | Radiology | Osmin Garber MD | Pre-Op | | 2019 | | | | | +--------+ + + + + | 09/02/ | Office | Vascular Surgery | Osmin Garber MD | PAD (peripheral | | 2019 | Visit | | | artery disease) | | | | | | ([facility]) (Primary Dx); | | | | | | Bilateral carotid | | | | | | artery stenosis | +--------+ + + + + from Last 3 Months Immunizations + + + + | Name | Administration Dates | Next Due | + + + + | INFLUENZA 67 Y OR >, | 04/03/2018, 03/31/2017, 04/19/2016, | | | TRIVALENT HIGH-DOSE | 04/14/2015, 04/21/2014 | | + + + + | PNEUMOCOCCAL | 04/14/2015 | | | CONJUGATE 13-VALENT | | | | (PCV13) | | | + + + + | PNEUMOCOCCAL | 03/31/2017, 04/22/2007 | | | POLYSACCHARIDE | | | [...] | + + +------+ + | No known problems | Sister | | | + + [...] recent travel history available. | + + Last Filed Vital Signs + + + + + | Vital Sign | Reading | Time Taken | Comments | + + + + + | Blood Pressure | 145/72 [...] + + + | Oxygen Saturation | 98% [...] | | + + + + + Plan of Treatment +--------+---------+ + + + | Date | Type | Specialty | Care Team | Description | +--------+---------+ + + + | 01/26/ | Office | Cardiology | Paolo Selby, | | | 2019 | Visit | | MD Marjan MARINELLI | | | | | | [address] [address] [place], [place] | | | | | | [address] | | | | | | | | +--------+---------+ + + + + + + + + | Health Maintenance | Due Date | Last Done | Comments | + + + + + | Vaccine: | | | | | Dtap/Tdap/Td (1 - | 4 | | | | Tdap) | | | | + + + + + | Vaccine: Zoster (1 | | | | | of 2) | 3 | | | + + + + + | Adult Annual | | | | | Wellness Visit | 5 | | | + + + + + | Vaccine: Influenza | | 04/03/2018, 03/31/2017, | | | (Season Ended) | 0 | 04/19/2016, Additional history | | | | | exists | | + + + + + | Vaccine: | Completed | 03/31/2017, 04/14/2015, | | | Pneumococcal 65+ | | 04/22/2007 | | + + + + + Implants + +--------+--------+ +--------+--------+--------+ | Implanted | Type | Area | Manufacture | Device | Shelf | Model | | | | | r | | Expira | / | | | | | | Identi | tion | Serial | | | | | | fier | Date | / Lot | + +--------+--------+ +--------+--------+--------+ | Imp Blade Hlcl Tfna 105mm | Generi | Left: | [facility] DEPUY | | 01/18/ | 04.038 | | Strl - [id number]: | c | Femur | SYNTHES - | | 2025 | .305S | | Qty: 1 on 12/19/2016 by | | | SYNT | | | / | | Lambert Mancuso MD at [facility] | | | | | | /[id number] | | [facility] | | | | | | [facility] | | CENTER | | | | | | | + +--------+--------+ +--------+--------+--------+ | Xgrft Vascu-Guard Ptch 0.8x8 | Graft | Left: | ROA | | 04/14/ | VG-010 | | - Sn/AImplanted: Qty: 1 on | | Arteri | BIOSCIENCE | | 2023 | 8N | | 09/11/2019 by Osmin Garber, | | al | - NORMA | | | /N/A | | at [facility] | | | | | | /[id number] | [facility] | | | | | | 10-141 | | | | | | | | 6142 | + +--------+--------+ +--------+--------+--------+ | Nail Fem Rg Ex [id number] - | Nail | Right: | [facility]CS DEPUY | | 02/18/ | 04.013 | | [id number]: Qty: 1 on | | Femur | SYNTHES - | | 2024 | .[id number] | | 12/19/2016 by Lambert Mancuso | | | SYNT | | | / | | MD Dhruv at [facility] | | | | | | /[id number] | | [facility] | | | | | | 95 | + +--------+--------+ +--------+--------+--------+ | Nail Fem Tfna St 130d [id number] | Nail | Left: | JJ[facility]CS DEPUY | | 05/21/ | 04.037 | | L - [id number]: Qty: | | Femur | SYNTHES - | | 6 | .245S | | 1 on 12/19/2016 by Bartolome, | | | SYNT | | | / | | Lambert Bartlett MD at [facility] | | | | | | /[id number] | | [facility] | | | | | | 78 | + +--------+--------+ +--------+--------+--------+ | Screw Im Alonso Slf-Tp F/T | Screw | Right: | JJHCS DEPUY | | | 04.005 | | 5x60mm - [id number]: | | Femur | SYNTHES - | | | .550 / | | Qty: 1 on 12/19/2016 by | | | SYNT | | | / | | Lambert Mancuso MD at [facility] | | | | | | | | [facility] | | | | | | | | CENTER | | | | | | | + +--------+--------+ +--------+--------+--------+ | Screw Im Alonso Slf-Tp F/T | Screw | Right: | [facility]CS DEPUY | | | 04.005 | | 5x62mm - [id number]: | | Femur | SYNTHES - | | | .552 / | | Qty: 1 on 12/19/2016 by | | | SYNT | | | / | | Lambert Mancuso MD at [facility] | | | | | | | | [facility] | | | | | | | | CENTER | | | | | | | + +--------+--------+ +--------+--------+--------+ | Screw Im Alonso Slf-Tp F/T | Screw | Right: | JJHCS DEPUY | | | 04.005 | | 5x46mm - [id number]: | | Femur | SYNTHES - | | | .536 / | | Qty: 1 on 12/19/2016 by | | | SYNT | | | / | | Lambert Mancuso MD at [facility] | | | | | | | | [facility] | | | | | | | | CENTER | | | | | | | + +--------+--------+ +--------+--------+--------+ | Screw Im Alonso Slf-Tp F/T | Screw | Left: | JJHCS DEPUY | | | 04.005 | | 5x44mm - [id number]: | | Femur | SYNTHES - | | | .534 / | | Qty: 1 on 12/19/2016 by | | | SYNT | | | / | | Lambert Mancuso MD at [facility] | | | | | | | | [facility] | | | | | | | | CENTER | | | | | | | + +--------+--------+ +--------+--------+--------+ | Stent Viabahn A Hep | Stent | | [facility] - | | 06/06/ | [id number] | | [id number]-7/21/2020Implanted: | | | [facility] | | 2021 | [id number] | | Qty: 1 on 09/11/2019 by | | | | | | / / | | Osmin Garber MD | | | | | | | + +--------+--------+ +--------+--------+--------+ | Stent Viabahn Vbx | | | [facility] - | | 06/21/ | [id number] | | [id number]-8/21/2020Implante | | | [facility] | | 2020 | [id number] / | | d: Qty: 1 on 09/11/2019 by | | | | | | / | | Osmin Garber MD | | | | | | | + +--------+--------+ +--------+--------+--------+ | Stent Viabahn Vbx | | | [facility] - | | 09/10/ | [id number] | | [id number]-3/21/2020Implante | | | [facility] | | 2021 | [id number] | | d: Qty: 1 on 09/11/2019 by | | | | | | / | | Jovanni Peterson MD | | | | | | 812 / | + +--------+--------+ +--------+--------+--------+ Procedures + +--------+ + + + | Procedure Name | Priori | Date/Time | Associated Diagnosis | Comments | | | ty | | | | + +--------+ + + + | VAS ANKLE BRACHIAL | Routin | 09/30/2019 | Critical lower | Results for this | | INDEX RESTING | e | 4:11 PM | limb ischemia | procedure are in the | | [...] the | | | | PST | ([facility]) | results section. | + +--------+ + + + | SURGICAL PATHOLOGY | Routin | 09/11/2019 | PAD (peripheral | Results for this | | EXAM | e | 8:17 AM | artery disease) | procedure are in the | | | | PST | ([facility]) | results section. | + +--------+ + + + | ANE AIRWAY NOTE | Routin | 09/11/2019 | | Results for this | | | e | 8:02 AM | | procedure are in the | | | | PST | | results section. | + +--------+ + + + | ENDARTERECTOMY | | 09/11/2019 | PAD (peripheral | | | FEMORAL | | 7:08 AM | artery disease) | | | | | PST | ([facility]) | | + +--------+ + + + [...] | | | apnea | +---+--------+ + +--------+ +---+ + | PROTIME INR | STAT | 09/11/2019 | | Results for this | | | | 6:48 AM | | procedure are in the | | | | PST | | results section. | + +--------+ +---+ + | TYPE AND SCREEN | ROWENA | 09/10/2019 | | Results for this | | | | 3:53 PM | | procedure are in the | | | | PST | | results section. | + +--------+ +---+ + | CBC WITH | STAT | 09/10/2019 | | Results for this | | DIFFERENTIAL | | 3:53 PM | | procedure are in the | | | | PST | | results section. | + +--------+ +---+ + | BASIC METABOLIC | STAT | 09/10/2019 | | Results for this | | PANEL | | 3:53 PM | | procedure are in the | | | | PST | | results section. | + +--------+ +---+ + | MRSA NAAT | Routin | 09/10/2019 | | Results for this | | | e | 3:53 PM | | procedure are in the | | | | PST | | results section. | + +--------+ +---+ + from Last 3 Months Results VAS Ankle Brachial Index Resting (09/30/2019 [...] | [facility] | | INFORMATION: Left INTERNAL MEDICINE NURSE PRACTITIONER endarterectomy and iliac stents. | | | [...] TBI: 0.91 | | | Waveforms: Triphasic RECREATION WORKER, monophasic DP LEFT Dorsalis Pedis: 194 | [...] | | CLINICAL INFORMATION: | | Left INTERNAL MEDICINE NURSE PRACTITIONER endarterectomy and iliac stents. | | | [...] | TBI: 0.91 | | Waveforms: Triphasic RECREATION WORKER, monophasic DP | | | | LEFT [...] | + +---------+ + + Protime INR (2019 4:31 AM PST)Only the most recent of 11 results within the time per iod is included. + + + + + + | [...] | | | | | performed at [facility];[address] | | | | | | [address];[place] | | | | | | [address] | | | | + + + + + + + + | Specimen | + + | Blood | + + + + + + + | Performing | Address | City/State/Zipcode | Phone Number | | Organization | | | | + + + + + | [facility] | [address] | [place] [address] | [phone] | + + + + + CBC with Differential (2019 4:31 AM PST)Only the most recent of 10 results within e time period is included. + + + + + + | Component | Value | Ref Range | Performed | Pathologist | | | | | At | Signature | + + + + + + | WBC | 7.94 | 3.80 - 11.00 | [facility] | | | | | K/uL | LABORATORY | | + + + + + + | RBC | 3.26 (L) | 4.20 - 5.70 | [facility] | | | | | M/uL | LABORATORY | | [...] | | | Absolute | performed at [facility];[address] | K/uL | LABORATORY | | | | [address];[place] | | | | | | [address] | | | | + + + + + + + + | Specimen | + + | Blood | + + + + + + + | Performing | Address | City/State/Zipcode | Phone Number | | Organization | | | | + + + + + | [facility] | [address] | [place] [address] | [phone] | + + + + + Magnesium (2019 4:31 AM RUST)Only the most recent of 8 results within the time period is included. + + + + + + | Component | Value | Ref Range | Performed | Pathologist | | | | | At | Signature | + + + + + + | Magnesium | 1.7Comment: Testing | 1.7 - 2.4 mg/dL | [facility] | | | | performed at [facility];[address] | | LABORATORY | | | | [address];[place], [place] | | | | | | [address] | | | | + + + + + + + + | Specimen | + + | Blood | + + + + + + + | Performing | Address | City/State/Zipcode | Phone Number | | Organization | | | | + + + + + | [facility] | [address] | [place] [address] | [phone] | + + + + + Comprehensive Metabolic Panel (2019 4:31 AM PST)Only the most recent of 7 results wi thin the time period is included. + + + + + + | [...] | | | | | performed at [facility] | | | | | | [facility];[place], [place] | | | | | | [address] | | | | + + + + + + + + | Specimen | + + | Blood | + + + + + + + | Performing | Address | City/State/Zipcode | Phone Number | | Organization | | | | + + + + + | [facility] | [address] | [place] [address] | [phone] | + + + + + Potassium (09/19/2019 8:20 PM PST)Only the most recent of 3 results within the time period is included. + + + + + + | Component | Value | Ref Range | Performed | Pathologist | | | | | At | Signature | + + + + + + | K | 4.3Comment: Testing | 3.5 - 4.9 | [facility] | | | | performed at [facility];[address] | mmol/L | LABORATORY | | | | [address];[place] | | | | | | [address] | | | | + + + + + + + + | Specimen | + + | Blood | + + + + + + + | Performing | Address | City/State/Zipcode | Phone Number | | Organization | | | | + + + + + | [facility] | [address] | [place] [address] | [phone] | + + + + + Phosphorus (09/18/2019 12:02 AM PST)Only the most recent of 3 results within the time perio d is included. + + + + + + | Component | Value | Ref Range | Performed | Pathologist | | | | | At | Signature | + + + + + + | Phosphorus | 2.4Comment: Testing | 2.3 - 4.8 mg/dL | [facility] | | | | performed at [facility];[address] | | LABORATORY | | | | [address];[place], [place] | | | | | | [address] | | | | + + + + + + + + | Specimen | + + | Blood | + + + + + + + | Performing | Address | City/State/Zipcode | Phone Number | | Organization | | | | + + + + + | [facility] | [address] | [place] [address] | [phone] | + + + + + XR [...] + | Stan, Rad Results In - 09/15/2019 8:58 AM PST [...] | | | + +---------+ + + Digoxin Level (09/15/2019 4:03 AM [...] | | | level | performed at [facility];[address] | ng/mL | LABORATORY | | | | [address];[place], [place] | | | | | | [address] | | | | + + + + + + + + | Specimen | + + | Blood | + + + + + + + | Performing | Address | City/State/Zipcode | Phone Number | | Organization | | | | + + + + + | [facility] | [address] | [place] [address] | [phone] | + + + + + ECHO [...] cm/s | [facility] | | | ulises | | | | | + + + + + + | LVOT peak | 14.4 | cm | [facility] | | | VTI | | | | | + + + + + + | AV peak ulises | 127.74 | cm/s | [facility] [...] [facility] | | | Peak S Ulises | | | | | + + + + + + | Pulm Vein | 88.13 | cm/s | [facility] | | | Peak D Ulises | | | | | + + [...] | | | | | | n [place] | | | | | + + [...] | | | + +---------+ + + POC Glucose (09/13/2019 12:29 PM PST) + + + + + + | Component | Value | Ref Range | Performed | Pathologist | | | | | At | Signature | + + + + + + | Glucose, | 148 (H)Comment: Testing | 65 - 99 mg/dL | [facility] | | | POC | performed at [facility];[address] | | LABORATORY | | | | [address];[place], [place] | | | | | | [address] | | | | + + + + + + + + | Specimen | + + | | + + + + + + + | Performing | Address | City/State/Zipcode | Phone Number | | Organization | | | | + + + + + | [facility] | [address] | [place] [address] | [phone] | + + + + + Basic Metabolic Panel (09/13/2019 4:05 AM PST)Only the most recent of 3 results within the time period is included. + + + + + + | [...] | | | | | performed at [facility] | | | | | | [facility];[place], [place] | | | | | | [address] | | | | + + + + + + + + | Specimen | + + | Blood | + + + + + + + | Performing | Address | City/State/Zipcode | Phone Number | | Organization | | | | + + + + + | [facility] | [address] | [place] [address] | [phone] | + + + + + Troponin I (09/12/2019 5:28 PM PST)Only the most recent of 2 results within the time perio d is included. + + + + + + | Component | Value | Ref Range | Performed | Pathologist | | | | | At | Signature | + + + + + + | Troponin I | 0.167 (H)Comment: 0.04 | 0.00 - 0.04 | [facility] | | | | ng/mL or less [...] at | | | | | | [facility];[address] [facility] | | | | | | [facility];[place] [address] | | | | + + + + + + + + | Specimen | + + | Blood | + + + + + + + | Performing | Address | City/State/Zipcode | Phone Number | | Organization | | | | + + + + + | [facility] | [address] | [place] [address] | [phone] | + + + + + ECG [...] MD | | | | | | [id number]) on 09/12/2019 | | | | | [...] | | | + +---------+ + + IR Angiogram Lower Extremity Left (09/11/2019 11:36 AM PST) + + | Specimen | + + | | + + + + ---+ | Narrative | Performed A t | + + ---+ | [place] | [facility] | | Health & Services OPERATIVE REPORT [...] iliac artery. Using | | | a [place] a endarterectomy was performed of the common [...] | | | advanced and a 8 [place] 23 cm Sheath was placed. A an [...] introduced a | | | 3 mm [place] angioplasty balloon and dilated the common and [...] with a 10 mm | | | [place] and the external iliac post dilated with an 8 mm [place]. | | | Repeat contrast injection showed [...] signal in the profunda femoris, SFA, and INTERNAL MEDICINE NURSE PRACTITIONER. The left groin wound | | | was thoroughly irrigated. The incision was then closed in layers | | | first with a 2-0 Vicryl, then 3-0 Vicryl. Beau were used to | | | re-approximate [...] signal in the profunda femoris, SFA, and INTERNAL MEDICINE NURSE PRACTITIONER. The left | | |groin wound was thoroughly irrigated. The incision was then closed in | | |layers first with a 2-0 Vicryl, then 3-0 Vicryl. Powell were used to | | |re-approximate the [...] with homogeneous cut surfaces. | | | Flare Man sections of the lymph node are submitted [...] cut surfaces are laminated | | | wall-yellow. Flare Man sections are submitted in cassette A1 | [...] component was performed | | | by [facility], [address] [place] [id number] (Medical | | | Director: Radha Morse MD; CLIA# [id number]). Professional | | | [facility] | | [address] [address] (Medical | | | Director: Prasanth Suggs M.D.; CLIA#: [id number]). Diagnostician: | | | Radha Morse MDPathologistElectronically Signed 09/14/2019 | | |question about this report, please contact Client Services. | | | | | |PERFORMING LABORATORY: | | |The technical component was performed by [facility], [address] [place] [address] (Capsule Filling Machine Operator: Radha Morse MD; CLIA# [id number]). Professional interpretation was performed by | | |[facility] [address] (Capsule Filling Machine Operator: Prasanth Suggs M.D.; CLIA#: [id number]). | | | | | |Diagnostician: Radha [...] | | | + +---------+ + + Airway (09/11/2019 8:02 AM PST) + + + | Narrative | Performed At | + + + | Stephen Silva CRNA 09/11/2019 8:04 AM Anesthesia | | | Airway Placement 09/11/2019 7:30 AM Preprocedure check: patient | | | identified, oxygen, airway assessed, patient reassessment prior to | | | induction, airway equipment checked and suction Mask ventilation: | | | easy Successful technique: Woodard Laryngoscope blade size: 2 | | | Airway grade: 2a (Partial view of glottis) Other equipment: stylette | | | Attempts: 1 Airway type: endotracheal Size: 7 Cuffed: cuffed | | | Route, reference point: center of mouth Tube depth: 22 cm Tube | | | secured with: adhesive tape Trauma: none Tube placement | | | verification: bilateral chest rise and carbon dioxide detection | | | Performing provider: Stephen Silva CRNA Authorizing | | | provider: Stephen Silva CRNA Please see | | | intraoperative grid for any additional medication documentation. | | + + + MRSA NAAT (09/10/2019 3:53 [...] [facility] | | | | performed at [facility];[address] | | LABORATORY | | | | [address];[place] | | | | | | [address] | | | | + + + + + + + + | Specimen | + + | Tissue - Both | | anterior nares (body | | structure) | + + + + + + + | Performing | Address | City/State/Zipcode | Phone Number | | Organization | | | | + + + + + | [facility] | [address] | [place] [address] | [phone] | + + + + + Type [...] + + + | [facility] | [id number] | | [facility] | | | | | | LABORATORY | | + + + + + + | [facility] | Testing performed at | | [facility] | | | | [facility];[address] | | LABORATORY | | | | [address];[place] [address] | | | | + + + + + + + + | Specimen | + + | Blood | + + + + + + + | Performing | Address | City/State/Zipcode | Phone Number | | Organization | | | | + + + + + | [facility] | [address] [facility] | [place] [address] | [phone] | + + + + + from Last 3 Months Insurance + +--------+ +--------+ +---------+--------+ | Payer | Benefi | Subscriber | Effect | Phone | Address | Type | | | t Plan | ID | tanisha | | | | | | / | | Dates | | | | | | Group | | | | | | + +--------+ +--------+ +---------+--------+ | MEDICARE | MEDICA | [id number] | 02/19/19 | [phone] | | Medica | | | RE | | 98-Pre | 5 | | re | | | PART A | | sent | | | | | | AND B | | | | | | + +--------+ +--------+ +---------+--------+ | MEDICARE | MEDICA | [id number] | 02/19/19 | [phone] | | Medica | | | RE | | 98-Pre | 5 | | re | | | PART A | | sent | | | | | | AND B | | | | | | + +--------+ +--------+ +---------+--------+ | AARP | AARP | [id number] | 10/21/19 | [phone] | | Indemn | | | MDCR | | 19-Pre | 0 | | ity | | | SUPPL | | sent | | | | + +--------+ +--------+ +---------+--------+ | AARP | AARP | [id number] | 10/21/19 | [phone] | | Indemn | | | MDCR | | 19-Pre | 0 | | ity | | | SUPPL | | sent | | | | + +--------+ +--------+ +---------+--------+ + +--------+ +--------+ + + | Guarantor Name | Accoun | Relation to | Date | Phone | Billing Address | | | t Type | Patient | of | | | | | | | | | | + +--------+ +--------+ + + | Deborah Thomason | Person | Self | [birth year] | | | | al/Fam | | 1931 | [phone] | [place] [address] | | | dorothea | | | 5 (Home) | | + +--------+ +--------+ + + | Deborah Thomason | Person | Self | [birth year] | | | | al/Fam | | 1931 | [phone] | [place] [address] | | | dorothea | | | 5 (Home) | | + +--------+ +--------+ + + Advance Directives + + + + + | Type | Date Recorded | Patient | Explanation | | | | Flare Man | | + + + + + | Power of | | | | | Professional Programmer Analyst | | | | + + + + + | Advance | 09/03/2019 9:17 | | @ home | | Directive | AM | | | + + + + + + + + + + | Code Status | Date | Date | Comments | | | Activated | Inactivated | | + + + + + | Full Code | 09/11/2019 | 2019 | | | | 2:25 PM | 5:05 PM | | + + + + + + + + + + | | | | | + + + + + | DNR (No | 12/31/2016 | 01/17/2017 | DNR DNI but patient understands he is | | Code) | 3:52 PM | 7:53 PM | temporarily changed to full code for surgery | + + + + + + + +---+ | Orders discussed with: | Patient | | + + +---+ | RN or MD to pronounce: | RN may | | | | pronounce | | + + +---+ + + + + + | | | | | + + + + + | DNR (No | 12/18/2016 | 12/31/2016 | DNR DNI but patient understands he is | | Code) | 10:08 PM | 3:51 PM | temporarily changed to full code for surgery | + + + + + + + +---+ | Orders discussed with: | Patient | | + + +---+ | RN or MD to pronounce: | RN may | | | | pronounce | | + + +---+
--- OUTSIDE RECORDS SUMMARY | ~2019-11-20 | XMS | Encounter Summary ---
Demographics + + + | Address | [address] | | | [place] [address] | + + + | Home Phone | | + + + | Preferred Language | Unknown | + + + | Marital Status | | + + + | Sabianist Affiliation | Unknown | + + + | Race | Unknown | + + + | Ethnic Group | Unknown | + + + Author + + + | Author | [facility] | | | and Eduardana | + + + | Organization | [facility] | | [...] [place] | | | | | [address] | | + + + + + Care Team Providers + +------+ + | Care Coupon Redemption Clerk Name | Role | Phone | + +------+ + | Carlos Alberto Galeas MD | PCP | | + +------+ + Encounter Details +--------+ + + + + | Date | Type | Department | Care Team | Description | +--------+ + + + + | 02/03/ | Hospital | [facility] | Carlos Alberto Galeas | Peripheral vascular | | 2018 | Encounter | [facility] | MD Dylan [address] | disease, unspecified | | | | [address] | [place] | ([facility]) | | | | [place] | [place] [address] | | | | | [address] | [phone] | | | | | [phone] | | | | | | | [...] | | | | | | [facility] [place] | | | | | | [address] | | | | | | | | +--------+---------+ + + + documented as of this encounter Procedures + +--------+ + + + | Procedure Name | Priori | Date/Time | Associated Diagnosis | Comments | | | ty | | | | + +--------+ + + + | VAS ANKLE BRACHIAL | Routin | 02/03/2018 | Peripheral | Results for this | | INDEX RESTING | e | 11:00 AM | vascular disease, | procedure are in the | | | | PDT | unspecified (HCC) | results section. | + +--------+ + + + documented in this encounter Results VAS Ankle Brachial Index Resting (02/03/2018 11:00 AM PDT) + + | Specimen | + + | | + + + + + | Narrative | Performed At | + + + | VAS ANKLE BRACHIAL INDEX RESTING 02/03/2018 10:30 AM HISTORY: | [facility] | | Peripheral vascular disease, unspecified . COMPARISON: None. | | | PROTOCOL: Blood pressure measurements of the upper extremities and | | | lower extremities were obtained with Doppler probe and | | | sphygmomanometer. FINDINGS: Right: (mmHg, index) Brachial: | | | 171 Dorsalis pedis: 241, 1.41, normal Posterior tibial: Not measured | | | Left: (mmHg, index) Brachial: 171 Dorsalis pedis: Greater than | | | 254, not calculated Posterior tibial: Greater than 254, not | | | calculated IMPRESSION - Strong pressures observed within the | | | ankle arteries with no definite evidence for peripheral vascular | | | disease. Reference: Greater than or equal to 0.95: Normal 0.5 | | | through 0.95: Single segment disease Less than 0.5: Multi segment | | | disease Dictated and Signed by: Nikko Morejon MD | | | Electronically signed: 02/03/2018 3:26 PM | | + + + + + | Procedure Note | + + | Stan, Rad Results In - 02/03/2018 3:29 PM PDT VAS ANKLE BRACHIAL INDEX RESTING | | 02/03/2018 10:30 AM HISTORY: Peripheral vascular disease, unspecified .COMPARISON: | | None.PROTOCOL: Blood pressure measurements of the upper extremities and lowerextremities | | were obtained with Doppler probe and sphygmomanometer.FINDINGS:Right: (mmHg, | | index)Brachial: 171Dorsalis pedis: 241, 1.41, normalPosterior tibial: Not measuredLeft: | | (mmHg, index)Brachial: 171Dorsalis pedis: Greater than 254, not calculatedPosterior | | tibial: Greater than 254, not calculatedIMPRESSION -Strong pressures observed within the | | ankle arteries with no definite evidencefor peripheral vascular | | disease.Reference:Greater than or equal to 0.95: Normal0.5 through 0.95: Single segment | | diseaseLess than 0.5: Multi segment disease Dictated and Signed by: Nikko oMrejon MD | | Electronically signed: 02/03/2018 3:26 PM | |Right: (mmHg, index) | |Brachial: 171 | |Dorsalis pedis: 241, 1.41, normal | |Posterior tibial: Not measured | | | |Left: (mmHg, index) | |Brachial: 171 | |Dorsalis pedis: Greater than 254, not calculated | |Posterior tibial: Greater than 254, not calculated | | | |IMPRESSION - | |Strong pressures observed within the ankle arteries with no definite evidence | |for peripheral vascular disease. | | | |Reference: | |Greater than or equal to 0.95: Normal | |0.5 through 0.95: Single segment disease | |Less than 0.5: Multi segment disease | | | |Dictated and Signed by: Nikko Morejon MD | | Electronically signed: 02/03/2018 3:26 PM | + + + +---------+ + + | Performing | Address | City/State/Zipcode | Phone Number | | Organization | | | | + +---------+ + + | [facility] | | | | + +---------+ + + documented in this encounter Visit Diagnoses + + | Diagnosis | + + | Peripheral vascular disease, unspecified (HCC) Peripheral vascular disease, | | unspecified | + + documented in this encounter"
--- OUTSIDE RECORDS SUMMARY | ~2019-11-20 | XMS | Encounter Summary ---
Demographics + + + | Address | [address] | | | [place] [address] | + + + | Home Phone | | + + + | Preferred Language | Unknown | + + + | Marital Status | | + + + | Baptism Affiliation | Unknown | + + + | Race | Unknown | + + + | Ethnic Group | Unknown | + + + Author + + + | Author | [facility] | | | and Eduardana | + + + | Organization | [facility] | | | and Eduardana [...] [place] | | | | | [address] | | + + + + + Care Team Providers + +------+ + | Care Pre Kindergarten Teacher Name | Role | Phone | + [...] Closed | | Radiology | Diagnoses | Sanjuanita Garber | | | | | Critical | MD Osmin | | | | | | lower limb | [address] | | | | | | ischemia | [address] | | | | | | Procedures | [address] | | | | | | VAS Ankle | [place] | | | | | | Brachial | [place] | | | | | | Index | [address] | | | | | | Resting | Phone: | | | | | | | [phone] | | | | | | | Fax: | | | | | | | [phone] | | +--------+--------+ + + + + Diagnostic/Screening (Routine) +--------+--------+ + + + + | Status | Reason | Specialty | Diagnoses / | Referred By | Referred To | | | | | Procedures | Contact | Contact | +--------+--------+ + + + + | Closed | | Radiology | Diagnoses | Jcarlos, | | | | | | Critical | MD Osmin | | | | | | lower limb | [address] | | | | | | ischemia | [address] | | | | | | Procedures | [address] | | | | | | VAS Aorta | [place] | | | | | | Iliac Duplex | [place] | | | | | | Limited | [address] | | | | | | | Phone: | | | | | | | [phone] | | | | | | | Fax: | | | | | | | [phone] | | +--------+--------+ + + + + Reason for Visit + + + | Reason | Comments | + + + | Follow-up | | + + + Encounter Details +--------+ + + + + | Date | Type | Department | Care Team | Description | +--------+ + + + + | 09/20/ | Telephone | [facility] | Niharika Man, | Follow-up | | 2019 | | VASCULAR SURGERY | Account Clerk | | | | | [address] | | | | | | [place] | | | | | | [address] | | | | | | [phone] | | | +--------+ + + + [...] | | | | | [place] [place], [place] | | | | | | [address] | | | | | | | [...] | [facility] | | INFORMATION: Left DIRECTOR OF MANAGED CARE endarterectomy and iliac stents. | | | [...] TBI: 0.91 | | | Waveforms: Triphasic ACTIVITIES COUNSELOR, monophasic DP LEFT Dorsalis Pedis: 194 | | | Posterior Tibial: Noncompressible JEREMY: 1.37 Great toe: 26 mm Hg | | | TBI: 0.18 Waveforms: Monophasic waveforms throughout the ankle | | + + + + + | Procedure Note | + + | Stna, Rad Results In - 10/01/2019 3:27 PM PDT | | LOWER EXTREMITY ARTERIAL SCAN, ANKLE BRACHIAL INDEX | | | | CLINICAL INFORMATION: | | Left DIRECTOR OF MANAGED CARE endarterectomy and iliac stents. | | | [...] | TBI: 0.91 | | Waveforms: Triphasic ACTIVITIES COUNSELOR, monophasic DP | | | | LEFT [...]
--- OUTSIDE RECORDS SUMMARY | ~2019-11-20 | XMS | Encounter Summary ---
Demographics + + + | Address | [address] | | | [place] [address] | + + + | Home Phone | | + + + | Preferred Language | Unknown | + + + | Marital Status | | + + + | Hoahaoism Affiliation | Unknown | + + + | Race | Unknown | + + + | Ethnic Group | Unknown | + + + Author + + + | Author | [facility] | | | and Eduardana | + + + | Organization | [facility] | | | and Eduardana [...] [place] | | | | | [address] | | + + + + + Care Team Providers + +------+ + | Care Mounter Sousaphones Name | Role | Phone | + +------+ + | Carlos Alberto Galeas MD | PCP | | + +------+ + Encounter Details +--------+ + + + + | Date | Type | Department | Care Team | Description | +--------+ + + + + | 12/06/ | Hospital | [facility] | Max Delaney | Bilateral carotid | | 2017 | Encounter | MED CTR [facility] | MD Sara [address] | artery stenosis | | | | [address] [place] | [address] | | | | | [place], [place] | [place] [address] | | | | | [address] | [phone] | | | | | [phone] | | | | | | | [...] | | | | | | [facility] [facility] [place] | | | | | | [address] | | | | | | | [...] VERTEBRAL ARTERY. Dictated and Signed by: Daniel Jordan MD Electronically signed: 12/06/2016 6:58 PM | | + + + + + | Procedure Note | + + | Zac Pierce Results In - 12/06/2016 7:01 PM PDT [...]
--- OUTSIDE RECORDS SUMMARY | ~2019-11-20 | XMS | Encounter Summary ---
Demographics + + + | Address | [address] | | | [place] [address] | + + + | Home Phone | | + + + | Preferred Language | Unknown | + + + | Marital Status | | + + + | Religion Affiliation | Unknown | + + + | Race | Unknown | + + + | Ethnic Group | Unknown | + + + Author + + + | Author | [facility] | | | and Eduardana | + + + | Organization | [facility] | | | and Eduardana [...] [place] | | | | | [address] | | + + + + + Care Team Providers + +------+ + | Care Marketing Operations Specialist Name | Role | Phone | + +------+ + | Carlos Alberto Galeas MD | PCP | | + +------+ + Reason for Referral Service/Procedure (Routine) +--------+--------+ + + + + [...] | steal | MD, FACS | [place] | | | | | syndrome | [address] | [place], | | | | | 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[place] | [place] [address] | | | | | carotid | [place], [place] | Phone: | | | | | artery, | [address] | [phone] | | | | | unspecified | Phone: | Fax: | | | | | laterality | [phone] | [phone] | | | | | Peripheral | Fax: | | | | | | arterial | [phone] | | | | | | disease [...] Closed | | Radiology | Diagnoses | Field, | [address] | | | | | Subclavian | Michael I, | [place] | | | | | steal | MD, FACS | [place], | | | | | syndrome | [address] | [place] [address] | | | | | 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[place] | Phone: | | | | | carotid | [place], [place] | [phone] | | | | | artery, | [address] | Fax: | | | | | unspecified | Phone: | [phone] | | | | | laterality | [phone] | | | | | | Peripheral | Fax: | | | | | | arterial | [phone] | | | | | | disease | | | | | | | (HCC) | | | | | | | Procedures | | | | | | | CT Angiogram | | | | | | | Neck w | | | | | | | Contrast | | | +--------+--------+ + + + + Reason for Visit + + + | Reason | Comments | + + + | New Patient | PVD | + + + Evaluate & Treat (Routine) +--------+--------+ + + + + | Status | Reason | Specialty | Diagnoses / | Referred By | Referred To | | | | | Procedures | Contact | Contact | +--------+--------+ + + + + | Closed | | General | Diagnoses | Adal, | , | | | | Surgery | Peripheral | Carlos Alberto | Michael Howell, | | | | | arterial | MD Dylan | , FACS [address] | | | | | disease | [address] | | | | | ([facility]) | [place] AGUILAR | [place], | | | | | Procedures | SERA | [place] [address] | | | | | [place] OFFICE | [place] [address] | Phone: | | | | | OUTPATIENT | Phone: | [phone] | | | | | NEW 45 | [phone] | Fax: | | | | | MINUTES | Fax: | [phone] | | | | | | [phone] | | +--------+--------+ + + + + Encounter Details +--------+---------+ + + + | Date | Type | Department | Care Team | Description | +--------+---------+ + + + | 02/10/ | Office | [facility] | Michael Alston | Subclavian steal | | 2018 | Visit | SURGERY [address] | MD Dante, FACS [address] | syndrome (Primary | | | | ST [place], [place] | [address] [place] | Dx); 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| | | [address] | [place] [address] | carotid artery, | | | | [phone] | [phone] | unspecified | | | | | | laterality; | | | | | | Peripheral arterial | | | | | | disease (HCC); | | | | | | Decreased GFR | +--------+---------+ + + + Social History [...] + + + | Blood Pressure | 118/64 | 02/10/2018 1:26 PM | | | | | PDT | | + + + + + | Pulse | 67 | 02/10/2018 1:26 PM | | | | | PDT | | + + + + + | Temperature | 36.1 C (96.9 F) | 02/10/2018 1:26 PM | | | | | PDT | | + + + + + | Respiratory Rate | 16 | 02/10/2018 1:26 PM | | | | | PDT | | + + + + + | Oxygen Saturation | 96% | 02/10/2018 1:26 PM | | | | | PDT | | + + + + + | Inhaled Oxygen | - | - | | | Concentration | | | | + + + + + | Weight | 72.1 kg (159 lb) | 02/10/2018 1:26 PM | | | | | PDT | | + + + + + | Height | 165.1 cm (5' 5") | 02/10/2018 1:26 PM | | | | | PDT | | + + + + + | Body Mass Index | 26.46 | 02/10/2018 1:26 PM | | | | | PDT [...] documented as of this encounter Progress Notes Michael Alston MD, FACS - 02/10/2018 1:30 PM PDTFormatting of this note might be diff erent from the original. Vascular Surgery Consult Note Referring Provider: Carlos Alberto Galeas,* HISTORY OF PRESENT ILLNESS Deborah Thomason is a 87 y.o. male patient of Carlos Alberto Galeas MD here today. Is he re with his . Physician notes: Patient arrives today to consult on PVD. Hx of ultrasound-guided access, right common femoral artery, right iliac angiography and ri ght femoral angiography with runoff on 11/30/[address] Max Delaney at [facility] in [place], [place]. Right femoral to below-knee popliteal reverse saphenous vein graft, right common femoral en darterectomy with Vascu-Guard patch angioplasty, right external iliac stent angioplasty, ang iography, harvesting right greater saphenous vein performed by Max Delaney at [facility] in [place], [place]. Intramedullary yulisa fixation, right femur on 12/18/[address] Mancuso Carotid : Patient states he had a stroke 4 years ago when he lived in [place], [place]. States he rememb ers when he went to take a shower he had no mobility and was not able to move his arms and went to the hospital. He reports LEFT side weakness during this stroke. He denies current we akness of an arm but admits to weakness to his legs. He denies residual effects of the strok e. States he had RIGHT side carotid endarterectomy in [place], [place] by Dr. Powell. Reports occasional dizziness. states his vision will occasionally "go haywire" and he will get neck and shoulder pain. LE: Patient states he is not able to ambulate well without a cane. Denies pain in his feet but admits to pain in his legs when ambulating. Report the pain is in his entire leg only when h e walks. Denies one leg pain worse then the other, then later noted LEFT leg a little worse than right leg. Reports lower back pain, worse when he sits in a recliner. Is not able to stand very long, not more then 5 minutes. 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 Denies TN, chest pain o r tightness. RISK: Former smoker--quit 12 years ago, no diabetes. KATHY Score: 3 KATHY Risk Score 02/10/2018 Risk for Obstructive Sleep Apnea Suspected Risk for KATHY RECENT TEST RESULTS and IMAGIN02/03/2018 RIGHT ICA 245/9 12/06/2016 RIGHT ICA 156/19 VAS CAROTID DUPLEX BILATERAL 02/03/2018 9:00 AM HISTORY: CAROTID ARTERY STENOSIS. COMPARISON: None. PROTOCOL: Chester scale and Doppler images of the carotid arteries. FINDINGS: Right: There is mild atherosclerosis of the common carotid artery. Extensive atherosclerosis is observed of the proximal ICA. There is mild atherosclerosis of the proximal ECA. Shadowing is observed in the carotid bulb that limits evaluation. Peak systolic velocity (cm/s), end diastolic velocity (cm/s). Mid CCA: 45, 6 Bulb: 162, 20 ECA: 288, 47, elevated velocities likely due to atherosclerosis and stenosis Highest ICA: 245, 9, elevated velocities corresponding to greater than or equal to 70% stenosis but less than near occlusion Vertebral: Retrograde Bulb/mid CCA ratio: 3.6, elevated High ICA/mid CCA ratio: 5.4, elevated Left: There is mild atherosclerosis of the common carotid artery. Mild atherosclerosis is observed of the proximal ICA. There is mild atherosclerosis of the proximal ECA. Shadowing is observed in the carotid bulb that limits evaluation. Peak systolic velocity (cm/s), end diastolic velocity (cm/s). Mid CCA: 53, 7 Bulb: 23, 7 ECA: 285, 0, elevated velocities likely due to atherosclerosis and stenosis Highest ICA: 155, 27, elevated velocities corresponding to 50-69% stenosis Vertebral: to/fro flow Bulb/mid CCA ratio: 1.2, normal High ICA/mid CCA ratio: 2.9, elevated IMPRESSION - Elevated velocities of right ICA corresponding to greater than or equal to 70% stenosis but less than near occlusion. Elevated velocities of left ICA correspond to 50-69% stenosis. Elevated velocities of bilateral ECAs due to atherosclerosis and stenosis. Retrograde flow in right vertebral artery. To/fro flow in left vertebral artery. Dictated and Signed by: Nikko Morejon MD Electronically signed: 02/03/2018 3:44 PM I have reviewed these images and agree with Radiologists findings. -- I would add subclavia n steal syndrome. VAS LOWER EXTREMITY ARTERIES RIGHT 02/03/2018 11:00 AM FINDINGS: Peak systolic velocity (cm/s), End diastolic velocity (cm/s), Velocity ratio distal/proximal, Phasicity Right: Mid SFA: 122, 0, triphasic Proximal anastomosis of bypass: 115, 0, 0.9, triphasic Proximal bypass: 146, 0, 1.3, triphasic Mid bypass: 92, 0, 0.6, triphasic The bypass demonstrates a bifurcation at the level of the mid to distal thigh. The branch labeled bifurcation 2 is not well seen past the posterior knee. Bifurcation 1 can be seen connecting to a vessel in the posterior knee, possibly the popliteal artery. The patient has history of bypass failure and another surgery to correct the failure. Bifurcation 2 could represent the original bypass and bifurcation 1 could represent the subsequent repair. Bifurcation 2 proximal: 42, 0, 0.5, triphasic Bifurcation 1 proximal: 71, 0, 0.8, triphasic Bifurcation 1 distal bypass: 32, 0, 0.5, triphasic Bifurcation 1 distal anastomosis: 33, 0, 1.0, triphasic IMPRESSION - Gross patency of right lower extremity arteries and bypass. Mildly elevated velocities are seen of the proximal bypass. Dictated and Signed by: Nikko Morejon MD Electronically signed: 02/03/2018 3:52 PM VAS ANKLE BRACHIAL INDEX RESTING 02/03/2018 10:30 AM FINDINGS: Right: (mmHg, index) Brachial: 171 Dorsalis pedis: 241, 1.41, normal Posterior tibial: Not measured Left: (mmHg, index) Brachial: 171 Dorsalis pedis: Greater than 254, not calculated Posterior tibial: Greater than 254, not calculated IMPRESSION - Strong pressures observed within the ankle arteries with no definite evidence for peripheral vascular disease. Reference: Greater than or equal to 0.95: Normal 0.5 through 0.95: Single segment disease Less than 0.5: Multi segment disease Dictated and Signed by: Nikko Morejon MD Electronically signed: 02/03/2018 3:26 PM I have reviewed these images and agree with Radiologists findings. RENAL: BUN/Cr Lab Results Component Value Date BUN 23 (H) 01/17/2017 Lab Results Component Value Date CREA 1.20 01/17/2017 GFRNONAA 58 (L) 01/17/2017 Carlos Alberto Galeas MD's notes were reviewed in clinic today. 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 MAIN OR FEMUR FRACTURE SURGERY [...] l umen on Q pain pump placement. [facility] - Dr. Delaney Right thigh biopsy 10/24/2011 nonspecific chronic dermatitis Ultrasound guided access, right common femoral artery 11/30/2013 Right iliac angiography, Right femoral angiography with runoff. [facility] - Dr. Delaney Allergies Allergen Reactions Naproxen Other (See Comments) States "put me in the hospital with kidney failure" States "put me in the hospital with kidney failure" Penicillins Swelling, Rash and Hives Lips swell eyes swell shut and pruritis Acetaminophen Rash Lisinopril Other (See Comments) Olmesartan Other (See Comments) Prednisone Other (See Comments) "Knocks heart out of rhythm" Medications: Outpatient Encounter Prescriptions as of 02/10/2018 Medication Sig Dispense Refill amiodarone (PACERONE) 200 mg tablet Take 200 mg by mouth Daily. amLODIPine (NORVASC) 5 mg tablet Take 5 mg by mouth Daily. ammonium lactate (LAC-HYDRIN) 12% cream ammonium lactate 12 % topical cream ascorbic acid (VITAMIN C) 500 mg tablet Take 500 mg by mouth Daily. atenolol (TENORMIN) 25 mg tablet Take 25 mg by mouth. atorvaSTATin (LIPITOR) 20 mg tablet Take 20 mg by mouth nightly. calcium-vitamin D (CALCIUM 600+D) 600 mg-200 units per tablet Take 1 tablet by mouth 2 times daily. clindamycin (CLEOCIN) 300 MG capsule Take 300 mg by mouth. clobetasol (TEMOVATE) 0.05% cream clobetasol 0.05 % topical cream digoxin (LANOXIN) 125 mcg tablet Take 125 mcg by mouth. fluocinonide (LIDEX) 0.05 % external solution fluocinonide 0.05 % topical solution furosemide (LASIX) 20 mg tablet Take 20 mg by mouth. loratadine (CLARITIN) 10 mg tablet Take 10 mg by mouth Daily. magnesium oxide (MAG-OX) 400 mg tablet Take 400 mg by mouth Daily. [DISCONTINUED] methocarbamol (ROBAXIN) 500 mg tablet Take 2 tablets by mouth every 6 ho urs as needed (muscle spasm). 100 tablet 1 metoprolol tartrate (LOPRESSOR) 25 mg tablet Take 0.5 tablets by mouth Daily. Hold if s ystolic (top number) blood pressure less than 90. 30 tablet 1 midodrine (PROAMATINE) 10 MG tablet Take 1 tablet by mouth 3 times daily. 90 tablet 1 Misc Natural Products (PROSTATE THERAPY COMPLEX) CAPS Take by mouth 2 times daily. Multiple Vitamins-Minerals (CENTRUM SILVER PO) Take by mouth. Multiple Vitamins-Minerals (CENTRUM SILVER) TABS Take 1 tablet by mouth Daily. Haskins-3 Fatty Acids (FISH OIL PO) Take 1 g by mouth. [DISCONTINUED] oxyCODONE (ROXICODONE) 5 mg tablet oxycodone 5 mg tablet [DISCONTINUED] oxyCODONE (ROXICODONE) 5 mg tablet Take 1-2 tablets by mouth every 4 shailesh rs as needed for Pain. 40 tablet 0 potassium chloride (K-DUR) 20 mEq ER tablet Take 20 mEq by mouth. potassium chloride (KLOR-CON) 20 MEQ packet Take 20 mEq by mouth. tamsulosin (FLOMAX) 0.4 mg CAPS Take 2 capsules by mouth daily (after breakfast). 30 ca psule 1 tocopherol (VITAMIN E) 400 units capsule Take 400 Units by mouth Daily. triamcinolone (KENALOG) 0.1% cream triamcinolone acetonide 0.1 % topical cream [DISCONTINUED] warfarin (COUMADIN) 2.5 mg tablet Take 1 tablet by mouth daily (after di nner). 30 tablet 0 warfarin (COUMADIN) 3 MG tablet Take 3 mg by mouth Daily. Saturday, Sat, Saturday warfarin (COUMADIN) 5 mg tablet Take 5 mg by mouth Daily. As directed 5 mg on , Sat rs, Sat, Saturday or as directed by doctor. No facility-administered encounter medications on file as of 02/10/2018. Family History Problem Relation Age of Onset Heart disease Mother Heart attack Father Heart disease Father Social History: He reports that he has never smoked. He has never used smokeless tobacco. He reports that h e drinks about 0.6 oz of alcohol per week . He reports that he does not use drugs. REVIEW OF SYSTEMS General: [x]Weight loss/gain (over 10 lbs) []Fever/chills []Night sweats Hematologic: [x]Bleeding/brusing tendencies []Blood transfusion []Anemia Heent: []Vision loss [x]Hearing loss [x]Sinus problems/nose bleeds []Hoarseness Respiratory: []Wheezing []Shortness of breath [x]Cough []Spitting up blood []On oxygen []Use CPAP machine Cardiac: []Chest pain []Palpitations/heart racing []Swelling of ankles/hands []Unusual shortness of breath []Difficulty sleeping flat Gastrointestinal: []Nausea/vomiting []Difficulty swallowing []Heartburn []Loss of appetite []Abdominal pain []Stomach Ulcers []Diarrhea []Constipation []Diogo k or bloody stools Vascular: [x]Pugh/TIAs []Fainting []Difficulty with speech []Leg cramps []Pain in feet/legs at rest []Foot ulcers/so res []Varicose veins []Phlebitis/blood clots Musculoskeletal: []Joint stiffness/swelling []Join pain [x]Back pain []Arthritis []Gout Urologic: []Blood in urine []Frequent urination at night []Burning/painful urination []Kidney stones []Difficulty urination []Sexual difficulties Neuro/Psychiatric: []Headaches []Seizures []Depression []Anxiety attacks []Memory loss or confusion PHYSICAL EXAM Vitals: 02/10/18 1326 BP: 118/64 Pulse: 67 Resp: 16 Temp: 36.1 C (96.9 F) TempSrc: Temporal SpO2: 96% Weight: 72.1 kg (159 lb) Height: 1.651 m (5' 5") Body mass index is 26.46 kg/m. General Appearance: Alert, cooperative, no distress, appears stated age Head: Normocephalic, without obvious abnormality Eyes: PERRL, conjunctiva/corneas clear, EOM's intact, vision adequate bilateral Ears: Adequate hearing Nose: No visible lesions Throat: Lips, mucosa, and tongue normal; teeth and gums normal Neck: Supple, symmetrical, no adenopathy, RIGHT neck scar, Bilateral neck bruits Lungs: Breath sounds are clear to auscultation bilaterally, no wheezes or crackles. Chest Wall: No tenderness or deformity, NO pacemaker Heart: irregular rate and rhythm, S1, S2 normal, no murmur. Abdomen: Soft, non-tender, flat, No scars, 1 cm reducible umbilical hernia in supine pos ition. Upper extremities Extremities normal, atraumatic, no cyanosis, clubbing, or edema Palpable Pulses: RIGHT LEFT Brachial 1+ Radial 0 2+ Ulnar LEFT brachial doppler pressure 116 RIGHT brachial doppler pressure 86 Lower Extremities: Extremities normal, atraumatic, no cyanosis, clubbing, or edema Palpable Pulses*: Femoral Popliteal Dorsalis pedis Post tibial LEFT 0 0 0 0 RIGHT 2+ 0 0 2+ Doppler Pulses: LEFT moderate weak absent RIGHT weak strong Neurologic: Cranial nerves II-XII grossly intact, face symmetric, tongue protrudes midline Equal residential case manager and plantar flexion, no pronator drift, Gait normal Deep tendon reflexes--quadriceps 2/5 and symmetric. Lab Results Component Value Date NA 131 (L) 01/17/2017 K 3.7 01/17/2017 CL 99 01/17/2017 CO2 25 01/17/2017 BUN 23 (H) 01/17/2017 CREA 1.20 01/17/2017 Lab Results Component Value Date WBC 8.5 01/16/2017 HGB 11.1 (L) 01/16/2017 HCT 33.5 (L) 01/16/2017 MCV 88.8 01/16/2017 PLT 239 01/16/2017 Lab Results Component Value Date INR 2.82 (H) 01/17/2017 INR 2.94 (H) 01/16/2017 INR 2.77 (H) 01/15/2017 PROTIME 30.5 (H) 01/17/2017 PROTIME 31.5 (H) 01/16/2017 PROTIME 30.1 (H) 01/15/2017 Assessment 1. Subclavian steal syndrome 2. Stenosis of carotid artery, unspecified laterality 3. Peripheral arterial disease (HCC) Plan 1. Subclavian steal syndrome Symptomatic --proximal subclavian stenosis with flow reversal in the vertebral artery. Will get a CTA of aorti arch and carotids. Will need hydration the rapy. 2. Neurogenic claudication-- combined with LEFT leg vascular claudication ( probable left iliac stenosis.) Will work up LEFT iliac stenosis at later date. At this time dose not se em a significant problem. Follow up in 2 weeks Michael Alston MD, FACS Vascular and General Surgery CC: Carlos Alberto Galeas MD, Carlos Alberto Galeas,* documented in this encounter Plan of Treatment +--------+---------+ + + + | Date | Type | Specialty | Care Team | Description | +--------+---------+ + + + | 01/26/ | Office | Cardiology | Paolo Selby, | | | 2019 | Visit | | MD Marjan MARINELLI | | | | | | [address] [place] | | | | | | [id number] | | | | | | | | +--------+---------+ + + + + + +--------+ + + | Name | Type | Priori | Associated Diagnoses | Order Schedule | | | | ty | | | + + +--------+ + + | * [facility] Infusion - | Outpatient | Routin | Subclavian steal | Ordered: 02/10/2018 | | AMB Referral | Referral | e | syndrome Stenosis | | | | | | of carotid artery, | | | | | | unspecified | | | | | | laterality | | | | | | Peripheral arterial | | | | | | disease (HCC) | | + + +--------+ + + documented as of this encounter Procedures + +--------+ + + + | Procedure Name | Priori | Date/Time | Associated Diagnosis | Comments | | | ty | | | | + +--------+ + + + | LABS - EXTERNAL SCAN | | 02/06/2018 | | Results for this | | | | 12:00 AM | | procedure are in the | | | | PDT | | results section. | + +--------+ + + + | NONINVASIVE VASC | | 04/25/2009 | | Results for this | | IMAGING - EXTERNAL | | 12:00 AM | | procedure are in the | | SCAN | | PDT | | results section. | + +--------+ + + + documented in this encounter Results CT Angiogram Neck w Contrast (02/18/2018 11:21 AM PDT) + + | Specimen | + + | | + + + + + | Narrative | Performed At | + + + | CT ANGIOGRAM NECK W CONTRAST 02/18/2018 10:55 AM HISTORY: | [facility] | | Subclavian steal syndrome, carotid stenosis, PVD. COMPARISON: | | | 02/03/2018 PROTOCOL: Thin section axial CTA images of the neck were | | | obtained after 115 mL Omnipaque 350. Coronal and sagittal | | | reformations were acquired. 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 Moderate to severe ossified and | | | noncalcified plaque is seen throughout the aorta and its proximal | | | branching vessels. Bovine arch variant with the left common carotid | | | extending from the right brachiocephalic artery. -35% stenosis at | | | the origin of the right common carotid artery from the right | | | brachiocephalic artery. -82% stenosis of the origin of the right | | | subclavian artery, just beyond the level of the brachiocephalic | | | junction, (coronal series 602, image 62 and axial series 4, image | | | 330). Mild poststenotic dilatation of the right subclavian artery. | | | Other areas of mild luminal stenosis are seen in its midportion. | | | -High grade at least 70% stenosis of the left subclavian artery just | | | proximal to the left vertebral artery junction. -60-70% stenosis at | | | the origin of the left subclavian artery from the aorta. Right | | | Carotid: Moderate to severe calcified plaque involving the right | | | carotid bulb causes up to 55-60% focal luminal narrowing. Calcified | | | and noncalcified plaque in the proximal right ICA causing only mild | | | 15-20% luminal narrowing. Remainder of the ICA is widely patent. | | | Left Carotid: CCA is patent. Large amount of calcified and | | | noncalcified plaque involving the left carotid bulb causing up to 55% | | | luminal narrowing. There is severe stenosis of the proximal left ECA | | | causes up to 65-70% focal luminal narrowing. Large amount of | | | noncalcified and moderate amount of calcified plaque causes 55-60% | | | stenosis of the proximal ICA. Focal area of contrast is seen | | | penetrating the noncalcified plaque in the left proximal ICA (series | | | 4, image 173 and coronal series 602, image 70). Vertebrals: Left | | | dominant vertebral artery system. Focal mild to moderate stenosis of | | | the intracranial C4 segment (series 602, image 68 and 70). Focal area | | | of severe stenosis with near-complete occlusion of the right | | | vertebral artery just distal to the C3-C4 transverse foramen (series | | | 4, image 151). This is caused by severe facet hypertrophy. There is | | | adequate distal reconstitution. Focal long segment of moderate to | | | severe stenosis of the V2 segment of the right vertebral artery with | | | greater than 50% luminal narrowing due to calcified and noncalcified | | | plaque at the level of C6-C7. At least moderate 50% stenosis at the | | | origin of the left vertebral artery from the left subclavian. Focal | | | mild stenosis of the V4 segment of the left vertebral artery due to | | | calcified plaque. Visualized brain and skull base demonstrate no | | | acute findings. Paranasal sinuses are clear. The nasopharynx, | | | oropharynx, epiglottis, hypopharynx, and larynx are normal. The oral | | | cavity is unremarkable. The parapharyngeal, retropharyngeal, and | | | bed teacher spaces are normal. Complete fatty atrophy of the left | | | parotid gland and nonspecific increased hyperdensity of the right | | | parotid gland. The thyroid is unremarkable. No enlarged lymph nodes | | | are visualized of the neck. Extensive areas of groundglass | | | nodularity as well as numerous tree-in-bud nodular opacities seen | | | throughout both lungs with relative peripheral sparing may represent | | | is suspicious for acute infectious etiology with neoplastic or | | | component of developing NSIP or other chronic interstitial lung | | | disease also considered. Severe degenerative disc disease and | | | neural foraminal narrowing from C4 through C7. Reversal of the normal | | | cervical lordosis. Mild grade 1 anterolisthesis of C3 over C4. | | | Extensive cystic changes are seen involving the dens. IMPRESSION - | | | Background of severe peripheral vascular disease with multiple areas | | | of severe stenosis involving bilateral carotid, right vertebral | | | artery, and bilateral subclavian arteries as detailed above. | | | Extensive areas of groundglass nodularity as well as numerous | | | tree-in-bud nodular opacities seen throughout both lungs with | | | relative peripheral sparing may represent is suspicious for acute | | | atypical infectious etiology with neoplastic or component of | | | developing NSIP or other chronic interstitial lung disease also | | | considered. Complete fatty atrophy of the left parotid gland and | | | nonspecific increased hyperdensity of the right parotid gland. | | | Findings are of doubtful clinical significance. Dictated and | | | Signed by: Ralph Kennedy MD Electronically signed: 02/18/2018 2:14 | | | PM | | + + + + + | Procedure Note | + + | Stan, Rad Results In - 02/18/2018 2:[address] ANGIOGRAM NECK W CONTRAST 02/18/2018 | | 10:55 AMHISTORY: Subclavian steal syndrome, carotid stenosis, PVD.COMPARISON: | | 02/03/2018PROTOCOL: Thin section axial CTA images of the neck were obtained after 115 | | mLOmnipaque 350. 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 Moderate to severe ossified andnoncalcified plaque is seen | | throughout the aorta and its proximal branchingvessels. Bovine arch variant with the | | left common carotid extending from theright brachiocephalic artery.-35% stenosis at the | | origin of the right common carotid artery from the rightbrachiocephalic artery.-82% | | stenosis of the origin of the right subclavian artery, just beyond thelevel of the | | brachiocephalic junction, (coronal series 602, image 62 and axialseries 4, image 330). | | Mild poststenotic dilatation of the right subclavianartery. Other areas of mild luminal | | stenosis are seen in its midportion.-High grade at least 70% stenosis of the left | | subclavian artery just proximal tothe left vertebral artery junction.-60-70% stenosis at | | the origin of the left subclavian artery from the aorta.Right Carotid: Moderate to | | severe calcified plaque involving the right carotidbulb causes up to 55-60% focal | | luminal narrowing. Calcified and noncalcifiedplaque in the proximal right ICA causing | | only mild 15-20% luminal narrowing.Remainder of the ICA is widely patent.Left Carotid: | | CCA is patent. Large amount of calcified and noncalcified plaqueinvolving the left | | carotid bulb causing up to 55% luminal narrowing. There issevere stenosis of the | | proximal left ECA causes up to 65-70% focal luminalnarrowing. Large amount of | | noncalcified and moderate amount of calcified plaquecauses 55-60% stenosis of the | | proximal ICA. Focal area of contrast is seenpenetrating the noncalcified plaque in the | | left proximal ICA (series 4, oumlr184 and coronal series 602, image 70).Vertebrals: Left | | dominant vertebral artery system. Focal mild to moderatestenosis of the intracranial C4 | | segment (series 602, image 68 and 70). Focalarea of severe stenosis with near-complete | | occlusion of the right vertebralartery just distal to the C3-C4 transverse foramen | | (series 4, image 151). Thisis caused by severe facet hypertrophy. There is adequate | | distal reconstitution.Focal long segment of moderate to severe stenosis of the V2 | | segment of the rightvertebral artery with greater than 50% luminal narrowing due to | | calcified andnoncalcified plaque at the level of C6-C7. At least moderate 50% stenosis | | at theorigin of the left vertebral artery from the left subclavian. Focal mildstenosis | | of the V4 segment of the left vertebral artery due to calcified plaque.Visualized brain | | and skull base demonstrate no acute findings. Paranasal sinusesare clear.The | | nasopharynx, oropharynx, epiglottis, hypopharynx, and larynx are normal. Theoral cavity | | is unremarkable. The parapharyngeal, retropharyngeal, and masticatorspaces are normal. | | Complete fatty atrophy of the left parotid gland andnonspecific increased hyperdensity | | of the right parotid gland. The thyroid isunremarkable. No enlarged lymph nodes are | | visualized of the neck.Extensive areas of groundglass nodularity as well as numerous | | idos-iy-zznirtnzws opacities seen throughout both lungs with relative peripheral | | sparingmay represent is suspicious for acute infectious etiology with neoplastic | | orcomponent of developing NSIP or other chronic interstitial lung disease | | alsoconsidered. Severe degenerative disc disease and neural foraminal narrowing from C4 | | throughC7. Reversal of the normal cervical lordosis. Mild grade 1 anterolisthesis of | | C3over C4. Extensive cystic changes are seen involving the dens.IMPRESSION -Background | | of severe peripheral vascular disease with multiple areas of severestenosis involving | | bilateral carotid, right vertebral artery, and bilateralsubclavian arteries as detailed | | above.Extensive areas of groundglass nodularity as well as numerous ppbm-ib-ipmzuuaima | | opacities seen throughout both lungs with relative peripheral sparingmay represent is | | suspicious for acute atypical infectious etiology withneoplastic or component of | | developing NSIP or other chronic interstitial lungdisease also considered. Complete | | fatty atrophy of the left parotid gland and nonspecific increasedhyperdensity of the | | right parotid gland. Findings are of doubtful clinicalsignificance.Dictated and Signed | | by: Ralph Kennedy MD Electronically signed: 02/18/2018 2:14 PM | |nonspecific increased hyperdensity of the right parotid gland. The thyroid is | |unremarkable. No enlarged lymph nodes are visualized of the neck. | | | |Extensive areas of groundglass nodularity as well as numerous tree-in-bud | |nodular opacities seen throughout both lungs with relative peripheral sparing | |may represent is suspicious for acute infectious etiology with neoplastic or | |component of developing NSIP or other chronic interstitial lung disease also | |considered. | | | |Severe degenerative disc disease and neural foraminal narrowing from C4 through | |C7. Reversal of the normal cervical lordosis. Mild grade 1 anterolisthesis of C3 | |over C4. Extensive cystic changes are seen involving the dens. | | | |IMPRESSION - | |Background of severe peripheral vascular disease with multiple areas of severe | |stenosis involving bilateral carotid, right vertebral artery, and bilateral | |subclavian arteries as detailed above. | | | |Extensive areas of groundglass nodularity as well as numerous tree-in-bud | |nodular opacities seen throughout both lungs with relative peripheral sparing | |may represent is suspicious for acute atypical infectious etiology with | |neoplastic or component of developing NSIP or other chronic interstitial lung | |disease also considered. | | | |Complete fatty atrophy of the left parotid gland and nonspecific increased | |hyperdensity of the right parotid gland. Findings are of doubtful clinical | |significance. | | | |Dictated and Signed by: Ralph Kennedy MD | | Electronically signed: 02/18/2018 2:14 PM | + + + +---------+ + + | Performing | Address | City/State/Zipcode | Phone Number | | Organization | | | | + +---------+ + + | [facility] | | | | + +---------+ + + Basic Metabolic Panel (02/18/2018 7:43 AM PDT) + + + + + [...] + | Anion Gap | 10 | 3 - 16 mmol/L | [facility] | | | | | [facility] | | [facility] | [facility] | | | | [facility] - | | | | | | LABORATORY | | + + + + + + | Glucose | 89 | 70 - 109 mg/dL | [facility] [...] + + + + | Creatinine | 1.22 | 0.60 - 1.30 | [facility] | | | | | mg/dL | [facility] | | | | | | [facility]ICAL | | | | | | CENTER - | | | | | | LABORATORY | | + + + + + + | eGFR if not | 56 (L)Comment: | >=60 | [facility] | | | | GLOMER[facility]TR[facility] | mL/min/1.73m2 | [facility] | | | [place] | RATE,ESTIMATED | | MEDICAL | | | | mL/min/1.32r3Asii than | | CENTER - | | [...] + + + + | Calcium | 9.5 | 8.3 - 10.5 | [facility] | | | | | mg/dL | [facility] | | | | | | MEDICAL | | | | | | CENTER - | | | | | | LABORATORY | | + + + + + + | BUN/Creatin | 21.3 | | [facility] | | | ine [...] + | [facility] | [address] | [place] | [phone] | | [facility] | | [address] | | | - LABORATORY | | | | + + + + + LABS - EXTERNAL SCAN (02/06/2018 12:00 AM PDT) + + + | Narrative | Performed At | + + + | Ordered by an | | | unspecified provider. | | + + + NONINVASIVE VASC IMAGING - EXTERNAL SCAN (04/25/2009 12:00 AM PDT) + + + | Narrative | Performed At | + + + | Ordered by an | | | unspecified provider. | | + + + documented in this encounter Visit Diagnoses + + | Diagnosis | + + | Subclavian steal syndrome - Primary | + + | Stenosis of carotid artery, unspecified laterality | + + | Peripheral arterial disease (HCC) Unspecified disorders of arteries and arterioles | + + | Decreased GFR Nonspecific abnormal results of kidney function study | + + documented in this encounter
--- OUTSIDE RECORDS SUMMARY | ~2019-11-20 | XMS | Encounter Summary ---
Demographics + + + | Address | [address] | | | [place] [address] | + + + | Home Phone | | + + + | Preferred Language | Unknown | + + + | Marital Status | | + + + | Orthodoxy Affiliation | Unknown | + + + | Race | Unknown | + + + | Ethnic Group | Unknown | + + + Author + + + | Author | [facility] | | | and Eduardana | + + + | Organization | [facility] | | | and Eduardana [...] [place] | | | | | [address] | | + + + + + Care Team Providers + +------+ + | Care Motorcycle Subassembler Name | Role | Phone | + +------+ + | Carlos Alberto Galeas MD | PCP | | + +------+ + Encounter Details +--------+ + + + + | Date | Type | Department | Care Team | Description | +--------+ + + + + | 09/11/ | Orders Only | [facility] | Ck Newman, | | | 2019 | | MED CTR OP INFUSION | PharmD [address] [place] | | | | | [address] | [address] [place] | | | | | [place] | [address] | | | | | [address] | | | | | | [phone] | | | +--------+ + + + [...] documented as of this encounter Progress Notes Ck Newman PharmD - 09/11/2018 9:42 AM PSTIn October 2018 the Electronic Medical Record (EMR) system used by [facility] will be updated. The category used to file the infusion therapy plan currently ordered for this patient is to be discontinued. The changes to the order category within the EMR are administrative and in no way affect t he care of the patient. This encounter was created in the EMR to review the current orders for this patient and moustapha e the necessary changes to insure continuity of care. Please contact the [facility] at with any questions regarding these dwyer es. documented in this encounter Plan of Treatment +--------+---------+ + + + | Date | Type | Specialty | Care Team | Description | +--------+---------+ + + + | 01/26/ | Office | Cardiology | Paolo Selby, | | | 2019 | Visit | | MD Marjan MARINELLI | | | | | | [place] | | | | | | [address] | | | | | | | | +--------+---------+ + + + documented as of this encounter Visit Diagnoses Not on filedocumented in this encounter"
--- OUTSIDE RECORDS SUMMARY | ~2019-11-20 | XMS | Encounter Summary ---
Demographics + + + | Address | [address] | | | [place] [address] | + + + | Home Phone | | + + + | Preferred Language | Unknown | + + + | Marital Status | | + + + | Hinduism Affiliation | Unknown | + + + | Race | Unknown | + + + | Ethnic Group | Unknown | + + + Author + + + | Author | [facility] | | | and Eduardana | + + + | Organization | [facility] | | | and Eduardana [...] [place] | | | | | [address] | | + + + + + Care Team Providers + +------+ + | Care Research Instructor Name | Role | Phone | + +------+ + | Carlos Alberto Galeas MD | PCP | | + +------+ + Encounter Details +--------+ + + + + | Date | Type | Department | Care Team | Description | +--------+ + + + + | 01/07/ | Hospital | [facility] | Michael Alston | Stenosis of carotid | | 2019 | Encounter | MED CTR ULTRASOUND | MD Dante, FACS [address] | artery, unspecified | | | | [address] [place] | [address] [place] | laterality | | | | [place], [place] | [place] [address] | | | | | [address] | [phone] | | | | | [phone] | | | +--------+ + + + [...] | | | | | [place], [place] | | | | | | [address] | | | | | | | [...] 107/19; ECA: 194/9; ICA: 130/17 (ICA/CCA 2.3, [id number]/27 with | | ratio of 2.9)Posterior circulation: [...] + + | Performing | Address | City[facility]State[facility] | Phone Number | | Organization | | | | + +---------+ + + | [facility] | | | | + +---------+ + + documented in this encounter Visit Diagnoses + + | Diagnosis | + + | Stenosis of carotid artery, unspecified laterality | + + documented in this encounter"
--- OUTSIDE RECORDS SUMMARY | ~2019-11-20 | XMS | Encounter Summary ---
Demographics + + + | Address | [address] | | | [place] [address] | + + + | Home Phone [...] + | Organization | [facility] | | | and [...] [place] | | | | | [address] | | + + + + + Care Team Providers + +------+ + | Care Manager Public Name | Role | Phone | + +------+ + | Carlos Alberto Galeas MD | PCP | | + +------+ + Encounter Details +--------+ + + + + | Date | Type | Department | Care Team | Description | +--------+ + + + + | 12/23/ | Orders Only | [facility] [place] | Jenni Meaz | | | 2019 | | SURGERY [address] | | | | | [place] | | | | | | [address] | | | | | | [phone] | | | +--------+ + + + [...] | | | | | [address] [place], [place] | | | | | | [address] | | | | | | | | +--------+---------+ + + + documented as of this encounter Visit Diagnoses Not on filedocumented in this encounter"
--- OUTSIDE RECORDS SUMMARY | ~2019-11-20 | XMS | Encounter Summary ---
Demographics + + + | Address | [address] | | | [place] [address] | + + + | Home Phone | | + + + | Preferred Language | Unknown | + + + | Marital Status | | + + + | Rastafari Affiliation | Unknown | + + + | Race | Unknown | + + + | Ethnic Group | Unknown | + + + Author + + + | Author | [facility] | | | and Eduardana | + + + | Organization | [facility] | | | and Eduardana [...] [place] | | | | | [address] | | + + + + + Care Team Providers + +------+ + | Care Beaver Trapper Name | Role | Phone | + +------+ + | Carlos Alberto Galeas MD | PCP | | + +------+ + Reason for Visit +--------+ + | Reason | Comments | +--------+ + | Pre-Op | | +--------+ + Encounter Details +--------+ + + + + | Date | Type | Department | Care Team | Description | +--------+ + + + + | 09/10/ | Telephone | [facility] | Osmin Garber MD | Pre-Op | | 2020 | | CENTER CV INTRA OP | [address] | | | | | [address] | [facility] | | | | | [place], [place] | [place] [address] | | | | | [address] | [phone] | | | | | [phone] | | | +--------+ + + + [...] [place] | | | | | | [address] | | | | | | | | +--------+---------+ + + + documented as of this encounter Visit Diagnoses Not on filedocumented in this encounter"
--- OUTSIDE RECORDS SUMMARY | ~2019-11-20 | XMS | Encounter Summary ---
Demographics + + + | Address | [address] | | | [place] [address] | + + + | Home Phone [...] | [facility] | | | and Eduardana [...] [place] | | | | | [address] | | + + + + + Care Team Providers + +------+ + | Care Electric Stove Mechanic Name | Role | Phone | + [...] | | Radiology | Diagnoses | [address] | | | | | | MD Valente | [address] [place] | | | | | Interstitial | [address] | [place], | | | | | lung | [place] | [place] [address] | | | | | disease | [place], | Phone: | | | | | ([facility]) | [place] [address] | [phone] | | | | | Procedures | Phone: | Fax: | | | | | CT Chest wo | [phone] | [phone] | | | | | Contrast | Fax: | | | | | | | [phone] | | +--------+--------+ + + + + [...] + + + + | 03/12/ | [facility] | [facility] | Valente Silvestre, | Interstitial lung | | 2018 | Encounter | MED CTR CT [address] | MD [address] | disease (HCC) | | | | [place], | [place] | | | | | [place] [address] | [address] | | | | | [phone] | | | +--------+ + + + [...] [place] | | | | | | [address] | | | | | | | [...]
--- OUTSIDE RECORDS SUMMARY | ~2019-11-20 | XMS | Encounter Summary ---
Demographics + + + | Address | [address] | | | [place] [address] | + + + | Home Phone | | + + + | Preferred Language | Unknown | + + + | Marital Status | | + + + | Yazdanism Affiliation | Unknown | + + + | Race | Unknown | + + + | Ethnic Group | Unknown | + + + Author + + + | Author | [facility] | | | and Eduardana | + + + | Organization | [facility] | | | and Eduardana | + + + | Address | Unknown | + + + | Phone | Unavailable | + + + Support + + + + + | Name | Relationship | Address | Phone | + + + + + | Rivka Thomason | ECON | | | | | | [place] | | | | | [address] | | + + + + + Care Team Providers + +------+ + | Care Womens Health Nurse Practitioner Name | Role | Phone | + [...] | | | MD Valente | [address] | | | | | Interstitial | [address] | [place], | | | | | lung | [place] | [place] [address] | | | | | disease | [place], | Phone: | | | | | (HCC) | [place] [address] | [phone] | | | | | Procedures | Phone: | Fax: | | | | | CT Chest wo | [phone] | [phone] | | | | | Contrast | Fax: | | | | | | | [phone] | | +--------+--------+ + + + + [...] | | PNEUMONIA | [address] | [place] [address] | | | | | VS CANCER VS | [place], | Phone: | | | | | CHRONIC | [place] [address] | [phone] | | | | | INTERSTITIAL | Phone: | Fax: | | | | | LUNG | [phone] | [phone] | | | | | DISEASE. | Fax: | | | | | | Procedures | [phone] | | | | | | NEW PT | | | | | | | CONSULT | | | +--------+--------+ + + + + Encounter Details +--------+---------+ + + + | Date | Type | Department | Care Team | Description | +--------+---------+ + + + | 02/28/ | Office | [facility] | Valente Silvestre, | Interstitial lung | | 2018 | Visit | PULMONARY [address] | MD [address] | disease (HCC) | | | | [place], | [place] | (Primary Dx) | | | | [place] [address] | [address] | | | | | [phone] | | | +--------+---------+ + + + [...] avoidance. The patient does not exercise regularly. Lavernreports that their exercise consists of mini mal walking. They are not enrolled in pulmonary rehabilitation. They have not completed pul [facility] rehabilitation in the past. 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 PVD (peripheral vascular disease) ([facility]) 02/06/2018 Urinary retention Past Surgical History: Past Surgical History: Procedure Laterality Date CAROTID ENDARTERECTOMY Right CATARACT REMOVAL WITH IMPLANT Bilateral 03/30/10 and 04/27/10 CORONARY ANGIOPLASTY without stent [facility] Approx [id number] FEMUR FRACTURE SURGERY Right 12/19/2016 Procedure: ORIF IM RODDING FEMORAL ANTEGRADE; Surgeon: Lambert Mancuso MD; Location: [facility] MAIN OR FEMUR FRACTURE SURGERY Left 12/19/2016 Procedure: ORIF IM RODDING FEMORAL TROCHANTERIC NAIL; Surgeon: Lambert Mancuso MD; Locati on: [facility] MAIN OR Heart/ Arrhythmia ablation Right femoral to below knee popliteal reverse saphenus vein graft 12/01/2013 Right common femoral endarterectomy with Vascu-Guard patch angioplasty, Right external mk ac stent angioplasty 7x29 mm, Angiography, Harvesting right greater saphenous vein, Dual - l umen on Q pain pump placement. [facility] - Dr. Delaney Right thigh biopsy 10/24/2011 nonspecific chronic dermatitis Ultrasound guided access, right common femoral artery 11/30/2013 Right iliac angiography, Right femoral angiography with runoff. [facility] - Dr. Delaney Family History: Family History [...] Daily. As directed 5 mg on , T hurs, Sat, Saturday or as directed by doctor., Disp: , Rfl: Immunizations: There is no immunization history on file for this patient. Review of Systems Constitutional: Denies fever, chills, sweats, fatigue/weakness, and unexpected weight cornejo ge. Sleep: Denies trouble sleeping, loud snoring, [...] | | | | | [address] [place] | | | | | | [address] | | | | | | | [...]
--- OUTSIDE RECORDS SUMMARY | ~2019-11-20 | XMS | Encounter Summary ---
Demographics + + + | Address | [address] | | | [place] [address] | + + + | Home Phone | | + + + | Preferred Language | Unknown | + + + | Marital Status | | + + + | Restorationist Affiliation | Unknown | + + + | Race | Unknown | + + + | Ethnic Group | Unknown | + + + Author + + + | Author | [facility] | | | and Eduardana | + + + | Organization | [facility] | | | and Eduardana [...] [place] | | | | | [address] | | + + + + + Care Team Providers + +------+ + | Care Armature Winder Repairer Name | Role | Phone | + [...] | | | MD Valente | [address] | | | | | Interstitial | [address] | [place], | | | | | lung | [place] | [place] [address] | | | | | disease | [place], | Phone: | | | | | ([facility]) | [place] [address] | [phone] | | | | | Procedures | Phone: | Fax: | | | | | CT Chest wo | [phone] | [phone] | | | | | Contrast | Fax: | | | | | | | [phone] | | +--------+--------+ + + + + [...] + + + + | 03/12/ | [facility] | [facility] | Valente Silvestre, | Interstitial lung | | 2018 | Encounter | MED CTR [address] | MD [address] | disease (HCC) | | | | [place], | [place] | | | | | [place] [address] | [address] | | | | | [phone] | | | +--------+ + + + [...] [place] | | | | | | [address] | | | | | | | [...]
--- OUTSIDE RECORDS SUMMARY | ~2019-11-20 | XMS | Encounter Summary ---
Demographics + + + | Address | [address] | | | [place] [address] | + + + | Home Phone | | + + + | Preferred Language | Unknown | + + + | Marital Status | | + + + | Scientology Affiliation | Unknown | + + + | Race | Unknown | + + + | Ethnic Group | Unknown | + + + Author + + + | Author | [facility] | | | and Eduardana | + + + | Organization | [facility] | | | and [...] [place] | | | | | [id number] | | + + + + + Care Team Providers + +------+ + | Care Genetic Supervisor Name | Role | Phone | [...] | | | | | disease) | [place], [place] | | | | | | ([facility]) | [address] | | | | | | Chronic | Phone: | | | | | | atrial | [phone] | | | | | | fibrillation | Fax: | | | | | | (HCC) | [phone] | | | | | | Chronic [...] | | | | | disease) | [facility] [place] | | | | | | ([facility]) | [address] | | | | | | Atrial | Phone: | | | | | | fibrillation | [phone] | | | | | | with RVR | Fax: | | | | | | ([facility]) | [phone] | | + + + + + + + Diagnostic/Screening (Routine) +--------+--------+ + + + + | Status | Reason | Specialty | Diagnoses / | Referred By | Referred To | | | | | Procedures | Contact | Contact | +--------+--------+ + + + + | Closed | | Radiology | Diagnoses | Jcarlos | | | | | | PAD | MD Osmin | | | | | | (peripheral | [address] | | | | | | artery | [address] | | | | | | disease) | [address] | | | | | | ([facility]) | [place] | | | | | | Procedures | [place] | | | | | | IR Angiogram | [id number] | | | | | | Lower | Phone: | | | | | | Extremity | [phone] | | | | | | Left | Fax: | | | | | | | [phone] | | +--------+--------+ + + + + [...] | | | | | | | ([facility]) | | | | | | | Procedures | | | | | | | ENDARTERECTO | | | | | | | MY FEMORAL | | | +--------+--------+ + + + + Encounter Details +--------+ + + + + | Date | Type | Department | Care Team | Description | +--------+ + + + + | 09/11/ | Hospital | [facility] | Osmin Garber MD | PAD (peripheral | | 2020 - | Encounter | [facility] | [address] | artery disease) | | | | [address] | [address] [place] | ([facility]); PAD | | 09/19/ | | [place], [place] | [place] [address] | (peripheral artery | | 2020 | | [address] | [phone] | disease) ([facility]); | | | | [phone] | | Bilateral carotid | | | | | Luther Maurer, | artery stenosis; | | | | | MD [address] | Chronic anemia; | | | | | [place] [address] | Chronic atrial | | | | | [phone] | fibrillation ([facility]); | | | | | | Chronic diastolic | | | | | Thor Yang MD | heart failure ([facility]); | | | | | [address] | Essential | | | | | [place] [address] | hypertension; PVD | | | | | [phone] | (peripheral vascular | | | | | | disease) ([facility]); | | | | | | Atrial fibrillation | | | | | | with RVR ([facility]) | +--------+ + + + + Social [...] might be different fr om the original. [facility] Service: Hospitalist Physician Discharge Summary Patient ID: [...] the patient adamantly refused going to a shelter [facility]. The patient's son and indicated they felt comfortable with him returning home. As a r esult, he was discharged home with care of his family. 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 Selby in approximately 2 weeks. 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 PVD (peripheral vascular disease) (HCC) 02/06/2018 PVD (peripheral vascular disease) ([facility]) Urinary retention Past Surgical History: Procedure Laterality Date ARTERY SURGERY Left 09/11/2019 Procedure: ENDARTERECTOMY FEMORAL; Surgeon: Osmin Garber MD; Location: [facility] CAROTID ENDARTERECTOMY Right CATARACT REMOVAL WITH IMPLANT Bilateral 03/30/10 and 04/27/10 CORONARY ANGIOPLASTY without stent [facility] Approx [id number] FEMUR FRACTURE SURGERY Right 12/19/2016 Procedure: ORIF IM RODDING FEMORAL ANTEGRADE; Surgeon: Lambert Mancuso MD; Location: [facility] MAIN OR FEMUR FRACTURE SURGERY Left 12/19/2016 Procedure: ORIF IM RODDING FEMORAL TROCHANTERIC NAIL; Surgeon: Lambert Mancuso MD; Locati on: [facility] MAIN OR Heart/ Arrhythmia ablation Right femoral to below knee popliteal reverse saphenus vein graft 12/01/2013 Right common femoral endarterectomy with Vascu-Guard patch angioplasty, Right external mk ac stent angioplasty 7x29 mm, Angiography, Harvesting right greater saphenous vein, Dual - l umen on Q pain pump placement. [facility] - Dr. Delaney Right thigh biopsy 10/24/2011 nonspecific chronic dermatitis Ultrasound guided access, right common femoral artery 11/30/2013 Right iliac angiography, Right femoral angiography with runoff. [facility] - Dr. Delaney Discharged Condition: Stable for discharge as stated above. Significant Diagnostic Studies: No results found. Discharge Vitals: Vitals: 09/19/19 2322 09/20/19 0332 09/20/19 0757 09/20/19 1124 BP: 106/74 105/73 114/80 95/57 Pulse: 92 110 105 63 Resp: 18 22 22 Temp: 36.5 C (97.7 F) 36.8 C [...] mg by mouth Daily. 5 mg on Tu, Wed, Th, Sat, Sun aka: COUMADIN warfarin 3 MG tablet Take 3 mg by mouth Daily. 3 mg on Mon and Fri aka: COUMADIN Carlos Alberto Galeas MD [address] [place] [address] In 1 week Osmin Garber MD [address] [place] [address] [facility] [place] [facility] [id number] In 2 weeks Follow-up post vascular intervention, staple removal Paolo Selby MD [address] [facility] [id number] In 2 weeks Follow-up for atrial fibrillation 2019 1:54 PM Signed: Electronically signed by: Thor Yang MD, 2019 1:54 PM [facility] Discharge took more than 35 minutes, to include final examination, discussion of admission, and preparation of prescriptions, instructions for ongoing care, follow up and dictation of summary. Portions of this chart may have been created with [employer] voice recognition software. Occasi onal wrong-word or [...] and son. Pt sent with prescription s. ham, Marky Montoya [facility] - 2019 1:54 PM PST Pharmacy Warfarin Monitoring: Deborah Thomason male 88 y.o., admitted for limb ischemia. He underwent planned SOFTWARE PRODUCT MANAGER endarterectomy and angio plasty on 09/11/19. Per news internship reconciliation, warfarin was on hold since 09/03 [...] might be diff erent from the original. [facility] Service: Vascular Surgery Progress Note Hospital Day: [...] signal to DP/PT. For vascular stand point, grant ent was ready for discharge. We will [...] Chart check complete. Jenny Marie RN hamMarky [facility] - 09/19/2019 2:09 PM PST Pharmacy Warfarin Monitoring: Deborah Thomason male 88 y.o., admitted for limb ischemia. He underwent planned SOFTWARE PRODUCT MANAGER endarterectomy and angio plasty on 09/11/19. Per news internship reconciliation, warfarin was on hold since 09/03 [...] might be dif ferent from the original. [facility] Service: Vascular Surgery Progress Note Hospital Day: [...] Status: full JOSÉ Mooney, PA-C Vascular Surgery hor Yang MD - 0 09/19/2019 7:56 AM PST [facility] Adult Hospitalist Progress Note Hospital Day: 8 [...] [facility]. Physical therapy recommending SNF, [...] endarterectomy -Continue Plavix -PT, will require SNF; horizontal drill operator to assist with placement, patient agreeable #4. [...] this chart may have been created with [employer] voice recognition software. Occasi onal wrong-word or [...] be covering over the weekend. Will call [facility] questions or concerns. Osmin Garber MD Vascular Surgery nika Yang MD - 09/18/2019 2:11 PM PSTFormatting of this note might be different from the or iginal. [facility] Adult Hospitalist Progress Note Hospital Day: 7 [...] nonhealing wound, underwent left femoral endarterectomy, angiopla strogelio and stent by Dr. Garber. Post- operatively [...] approximately 24 hours and transferred to the [facility] service on 09/18/2019 OBJECTIVE Vital Signs: [...] this chart may have been created with [employer] voice recognition software. Occasi onal wrong-word or sound-alike substitutions may have occurred due to the inherent ness itations of voice recognition software. Please read the chart carefully and recognize, using context, where these substitutions have occurred Anurag Amato MD - 09/18/2019 1:24 PM PST [facility] Service: Cardiology Progress Note Hospital Day: LOS: [...] Patient was admitted and underwen t today SOFTWARE PRODUCT MANAGER endarterectomy and angioplasty. EBL was 200-400ml. He [...] note might be different from the origin [facility] Service: Lumber Cutter Progress Note Deborah Thomason 88 y.o. Hospital Day: LOS: 7 days [...] morning. Due to need for increased pressor corcoran pport and titration of rate-controlling medications, patient [...] Code Jeramy Chapa MD 09/18/2019 Dictation software, [employer], was used which may contain error with [...] Patient reports chronic hypotension. Susanna Simon MD Lumber Cutter 09/18/2019 Please bill 40 minutes of critical care time spent evaluating the patient, reviewing the da ta and formulating a plan exclusive of procedures. Anurag Villa MD - 09/17/2019 5: 24 PM PST [facility] Service: Cardiology Progress Note Hospital Day: LOS: [...] Patient was admitted and underwen t today SOFTWARE PRODUCT MANAGER endarterectomy and angioplasty. EBL was 200-400ml. He [...] Full Code Anurag Villa MD roctor, Elías Suarez [facility] - 09/17/2019 2:53 PM PSTFormatting of this note might be different from the origi nal. Pharmacy Warfarin Monitoring: Deborah Thomason male 88 y.o., admitted for limb ischemia. He underwent planned SOFTWARE PRODUCT MANAGER endarterectomy and angio plasty on 09/11/19. Per news internship reconciliation, warfarin was on hold since 09/03 [...] Robertson PA - 09/17/2019 1:20 PM PST [facility] Service: Vascular Surgery Progress Note Hospital Day: LOS: 6 days Post-Op Day: 3 ASSESSMENT & PLAN POD #3, S/p Lt LIA, EIA stent, Lt SOFTWARE PRODUCT MANAGER endarterectomy for LLE CLI, transferred to ICU [...] Monroy MD - 09/17/2019 8:29 AM PST [facility] Service: Lumber Cutter Progress Note Deborah Thomason 88 y.o. 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 Susanna Simon MD Lumber Cutter 09/17/2019 Please bill 40 minutes of critical care time spent evaluating the patient, reviewing the da ta and formulating a plan exclusive of procedures. Odalys Tse PharmD - 09/16/2019 3:56 PM PST Pharmacy [...] follow and modify therapy as indicated. ODALYS TSE PharmD 09/16/2019 3:54 PM Maye Amato MD - 09/16/2019 9:47 AM PSTFormatting of this note might be different from the rand dominguez. [facility] Service: Cardiology Progress Note Hospital Day: LOS: [...] Patient was admitted and underwen t today SOFTWARE PRODUCT MANAGER endarterectomy and angioplasty. EBL was 200-400ml. He [...] Villa MD miley, Jeramy Monroy MD - 09/16/2019 8:35 AM PSTFormatting of this note might be different from the origin al. [facility] Service: Lumber Cutter Progress Note Deborah Thomason 88 y.o. Hospital Day: LOS: 5 days [...] femoral endarterectomy by Dr. Garber on 09/11/19. Curren tly, his rate is in the 120s. His [...] Code Jeramy Chapa MD 09/16/2019 Dictation software, [employer], was used which may contain error with [...] tolerates. Requiring phenylephrine and midodrine for hemodynamic corcoran pport. Anticoagulated with warfarin and currently bridged with this enoxaparin until INR th erapeutic. NR 1.6 today Volume overload - gentle diureses with furosemide. 10 L net positive on I/Os Deconditioning. Continue to work with physical therapy. Mobilize as tolerated. Disposition: Plan of care as above. Wean off phenylephrine as BP tolerates. Susanna Simon MD Lumber Cutter 09/16/2019 1:33 PM Please bill 40 minutes of critical care time spent evaluating the patient, reviewing the da ta and formulating a plan exclusive of procedures. Kendell Robertson PA - 09/16/2019 8:[address] [facility] Service: Vascular Surgery Progress Note Hospital Day: LOS: 5 days Post-Op Day: 2 ASSESSMENT & PLAN POD #2, S/p Lt LIA, EIA stent, Lt SOFTWARE PRODUCT MANAGER endarterectomy for LLE CLI, transferring to ICU [...] Status: full JOSÉ Mooney, PA-C Vascular Surgery Angela Duncan RD - 4:05 PM PST NUTRITION NOTE [...] 09/22/2019) Angela Cornelius RD 09/15/2019 4:05 PM mjoan, Jeramy Monroy MD - 09/15/2019 2:47 PM PST [facility] Service: Lumber Cutter Progress Note Deborah Thomason 88 y.o. Hospital [...] Code Jeramy Chapa MD 09/15/2019 Dictation software, [employer], was used which may contain error with [...] phenylephrine as BP tolerates. Susanna Simon MD Lumber Cutter [facility] 09/15/2019 4:12 PM Please bill 40 minutes of critical care time spent evaluating the patient, reviewing the da ta and formulating a plan exclusive of procedures. Amadou Karley Riley, [facility] - 09/15/2019 2:08 PM PSTFormatting of this note might be differen t from the original. Pharmacy Warfarin Monitoring: Deborah Thomason male 88 y.o., admitted for limb ischemia. He underwent planned SOFTWARE PRODUCT MANAGER endarterectomy and angio plasty on 09/11/19. Per news internship reconciliation, warfarin was on hold since 09/03 [...] modify therapy as indicated. Karley Tobar, PharmD, [facility] 09/15/19 2:08 PM Hai Amato MD - 09/15/2019 9:56 AM PSTFormatting of this note might be different from the [facility] Service: Cardiology Progress Note Hospital Day: LOS: [...] Patient was admitted and underwen t today SOFTWARE PRODUCT MANAGER endarterectomy and angioplasty. EBL was 200-400ml. He [...] He denies any chest pain, SOB. Says ujhi delaney in lower extremity improving. Scheduled Medications [...] coumadin(INR 1.4) Code Status: Full Code Anurag Villa MD Osmin Angel MD - 09/15/2019 7:28 [...] Osmin Garber MD Vascular Surgery Jess Covarrubias I, DO - 09/14/2019 1:54 PM PST [facility] Progress Note Primary Care Physician: Carlos Alberto [...] this note might be different from the [facility] Service: Cardiology Progress Note Hospital Day: LOS: [...] Patient was admitted and underwen t today SOFTWARE PRODUCT MANAGER endarterectomy and angioplasty. EBL was 200-400ml. He [...] Consult Continuous Infusions amiodarone 0.5 mg/min (09/14/19 0734) niCARdipine Stopped (09/11/19 1706) phenylephrine Stopped (09/14/19 [...] Full Code Anurag Villa MD Karley Pichardo [facility] - 09/14/2019 9:59 AM PSTRenal Dosing Monitoring: Deborah Thomason 88 y.o. male Serum creatinine: 1 mg/dL 09/13/19 0405 Estimated creatinine clearance: 51 mL/min Plan per protocol: Enoxaparin adjusted from 80 mg (1 mg/kg) daily to 80 mg (1 mg/kg) BID for creatinine cleara nce >30 mL/min. Pharmacy will continue to monitor changes in medication orders and renal function and will adjust accordingly. Feli FowlerD, [facility] 09/14/19 7:50 AM Jeramy Grove MD - 09/14/2019 8:06 AM PSTFormatting of this note might be different from the [facility] Service: Lumber Cutter Progress Note Deborah Thomason 88 y.o. Hospital [...] Code Jeramy Chapa MD 09/14/2019 Dictation software, [employer], was used which may contain error with [...] phenylephrine as BP tolerates. Susanna Simon MD Lumber Cutter 09/14/2019 Please bill 40 minutes of critical care time spent evaluating the patient, reviewing the da ta and formulating a plan exclusive of procedures. Karley Tobar, [facility] - 09/14/2019 7:51 AM PST Pharmacy Warfarin Monitoring: Deborah Thomason male 88 y.o., admitted for limb ischemia. He underwent planned SOFTWARE PRODUCT MANAGER endarterectomy and angio plasty on 09/11/19. Per news internship reconciliation, warfarin was on hold since 09/03 [...] mg 3 mg - dose omitted per SEP Assessment: The INR is Below the target [...] modify therapy as indication. Karley Tobar, PharmD, [facility] 09/14/19 7:47 AM Jess Covarrubias DO - 09/13/2019 4:04 PM PST . [facility] Progress Note Primary Care Physician: Carlos Alberto [...] additional up titration with recommendation to tr ansfer to ICU for amiodarone loading for A fib with RVR per Cardiology -Continue Ancef for possible early cellulitis, could be his coloration but safer to start A bx -Continue ASA, Plavix and statin Electronically signed by: Jess Webber DO, 09/13/2019 4:04 PM Hai Amato MD - 09/13/2019 3:19 PM PSTFormatting of this note might be different from the [facility] Service: Cardiology Progress Note Hospital Day: LOS: [...] Patient was admitted and underwen t today SOFTWARE PRODUCT MANAGER endarterectomy and angioplasty. EBL was 200-400ml. He [...] Code Status: Full Code Anurag Villa MD Lani Brown [facility] - 09/13/2019 1:43 PM PSTFormatting of this note might be different from the mushtaq higgins. Pharmacy Warfarin Monitoring: Deborah Thomason is an 88 year old male admitted for limb ischemia. He underwent planned SOFTWARE PRODUCT MANAGER endarterectomy and angioplasty on 09/11/19. Per news internship reconciliation, warfarin w as on hold since [...] as indicated. Mia West, PharmD, BCCCP Kristine Mcdonnell, PT - 09/13/2019 1:11 PM PSTFormatting of this note might be different from the kailey cuevas 09/13/19 1310 PT Visit Summary PT Visit Type Missed Visit (medical issue) Next Visit Information 09/13, Pt transferred to ICU with hypotension and A-fib with RVR. Hol d today. Anticipated Discharge Disposition (May need SNF pending medical recovery) Pat, Miles Suarez RN - 09/13/2019 12:44 PM PSTPatient off kailee in AM, at 1030 patient BP 75/55, back on kailee at 40 mcg/min. Patient started to go into AF RVR with HR 140-160's. notified. Report called to Paige DELGADO, agreed to continue care, all questions answered. Nika Lockett MD - 09/13/2019 8:27 AM PST [facility] Service:hospitalist Progress Note Hospital Day: LOS: 2 [...] Stopped (09/11/19 1706) phenylephrine 20 mcg/min (09/13/19 0509) PRN Medications HYDROmorphone, oxyCODONE, senna OBJECTIVE Vital Signs: BP 99/61 | Pulse 102 | Temp 37.2 C (98.9 F) (Oral) | Resp 16 | Ht 1.727 m (5' 8") | Wt 74.3 kg (163 lb 11.2 oz) | SpO2 97% | BMI 24.89 kg/m Intake/Output Summary (Last 24 hours) at 09/13/2019 0827 Last data filed at 09/13/2019 0530 Gross [...] Procedure Component Value Units Date/Time MRSA NAAT [[id number]] Collected: 09/10/19 1553 Order Status: Completed Lab Status: Final result Updated: 09/10/19 1855 Specimen: Tissue from Nares SOURCE: NARES(NOSE) Result NEGATIVE Comment: Testing performed at [facility];[address] [place] [address];[place] [address] No results found for this or any previous visit (from the past 360 hour(s)). Results for orders placed or performed in visit on 06/10/19 ECG 12 lead Result Value Ref Range INTERPRETATION TEXT Atrial fibrillation Possible Anterior infarct , age undetermined Abnormal ECG No previous ECGs available Please refer to Providers office visit note for Providers Interpretation. Confirmed by JUAN Berry Read Only, JUAN Warren ([id number]), editorial writer Maximiliano Yee ([id number]) on 019 2:24:36 PM [...] Status: Full Code Nika Corea MD 09/13/2019 Fadia Alvarez RN - 09/13/2019 6:04 AM PSTNeo running at 40 mcg/min SBP 100-120's titrated to 20 mcg/min SBP >90 will continue to monitor BP. Patient unaware that IV was removed while he was sleepi ng. Otherwise, hourly rounding uneventful. Chart check complete. Fadia Estrada RN Electronic ally signed by Fadia Clayton RN at 09/13/2019 6:05 AM PSTFrost, Chio Montoya RPH - 09/12/2019 9:56 PM PST Pharmacy Warfarin Monitoring: Deborah Thomason male 88 y.o., admitted for limb ischemia. He underwent planned SOFTWARE PRODUCT MANAGER endarterectomy and angio plasty on 09/11/19. Per news internship reconciliation, warfarin was on hold since 09/03 [...] and modify therapy as indication. CHIO ORTIZ RPH 9:45 PM 09/12/2019 Pat, Marc Suarez RN - 09/12/2019 6:57 PM PSTIn AM patients SBP dropped to 69-80 with MAPS 55-60. Patien t asymptomatic, trendelenburg, 500 fb and albumin, SBP in 90's with map >65. On kailee at 40-6 0 mcg for majority of shift. MD, vascular, sepsis RN and clinical application consultant aware. Currently on 20 mcg of kailee with sbp 110's. End of shift chart check complete. Oma Kumar RN Ayala Covarrubias I, DO - 09/12/2019 5:16 PM PSTFormatting of this note might be different from the rand alberto. [facility] Progress Note Primary Care Physician: Carlos Alberto [...] for Atrial fibrillation, trend troponins to exclude DE. Electronically signed by: Jess Webber DO, 09/12/2019 5:16 PM Nika Lockett MD - 09/12/2019 8:36 AM PST [facility] Service:hospitalist Progress Note Hospital Day: LOS: 1 [...] Procedure Component Value Units Date/Time MRSA NAAT [[id number]] Collected: 09/10/19 1553 Order Status: Completed Lab Status: Final result Updated: 09/10/19 6949 Specimen: Tissue from Nares SOURCE: NARES(NOSE) Result NEGATIVE Comment: Testing performed at [facility];[address] [place] [address];[place] [address] No results found for this or any previous visit (from the past 360 hour(s)). Results for orders placed or performed in visit on 06/10/19 ECG 12 lead Result Value Ref Range INTERPRETATION TEXT Atrial fibrillation Possible Anterior infarct , age undetermined Abnormal ECG No previous ECGs available Please refer to Providers office visit note for Providers Interpretation. Confirmed by [facility] [place] Read Only, JUAN Warren ([id number]), editorial writer Maximiliano Yee ([id number]) on 019 2:24:36 PM I have reviewed [...] all B P meds and monitor, per [facility] is aware Chronic diastolic HF seems stable [...] Status: Full Code Nika Corea MD 09/12/2019 Fadia Alvarez RN - 09/12/2019 6:37 AM PSTPatient on 40 mcg/min of kailee. Attempted to titrate down, but SB P <90 will continue to titrate off kailee. Patient on 2-3 L NC. L groin site remained unchanged C/D/I. Patient still complains of a lot of pain while palpating site. Doppler lower extremi ty pulses. Chart check complete. Fadia Estrada RN Karley Pichardo [facility] - 09/11/2019 6:50 PM PSTFormatting of rupal s note might be different from the original. Pharmacy Warfarin Monitoring: Deborah Thomason male 88 y.o., admitted for limb ischemia. He underwent planned SOFTWARE PRODUCT MANAGER endarterectomy and angio plasty on 09/11/19. Per news internship reconciliation, warfarin was on hold since 09/03 [...] follow and modify therapy as indicated. Karley oTbar, [employer], [facility] 09/11/19 6:49 PM documented in rupal s encounter Plan of Treatment +--------+---------+ + + + | Date | Type | Specialty | Care Team | Description | +--------+---------+ + + + | 01/26/ | Office | Cardiology | Paolo Selby, | | | 2019 | Visit | | MD Marjan WARREN | | | | | | [place] | | | | | | [id number] | | | | | | | [...] disease) | | | | | | ([facility]) Atrial | | | | | | fibrillation with | | | | | | RVR ([facility]) | | + + +--------+ + + | Referral to Home | Outpatient | Routin | PAD (peripheral | Ordered: 2019 | | Health | Referral | e | artery disease) | | | | | | (HCC) Chronic | | | | | | atrial fibrillation | | | | | | (HCC) Chronic | | | | | | diastolic heart | | | | | | failure (HCC) PVD | | | | | | (peripheral vascular | | | | | | disease) ([facility]) | | + + +--------+ + + [...] the | | | | PST | ([facility]) | results section. | + +--------+ + + + | SURGICAL PATHOLOGY | Routin | 09/11/2019 | PAD (peripheral | Results for this | | EXAM | e | 8:17 AM | artery disease) | procedure are in the | | | | PST | ([facility]) | results section. | + +--------+ + + + | ENDARTERECTOMY | | 09/11/2019 | PAD (peripheral | | | FEMORAL | | 7:08 AM | artery disease) | | | | | PST | ([facility]) | | + +--------+ + + + [...] [facility] | | | | performed at [facility];[address] | | LABORATORY | | | | [address];[place], [place] | | | | | | [address] | | | | + + + + + + + + | Specimen | + + | Blood | + + + + + + + | Performing | Address | City/State/Zipcode | Phone Number | | Organization | | | | + + + + + | [facility] | [address] | [place] [address] | [phone] | + + + + + CBC [...] | | | Absolute | performed at [facility];[address] | K/uL | LABORATORY | | | | [address];[place] | | | | | | [address] | | | | + + + + + + + + | Specimen | + + | Blood | + + + + + + + | Performing | Address | City/State/Zipcode | Phone Number | | Organization | | | | + + + + + | [facility] | [address] | [place] [address] | [phone] | + + + + + Comprehensive [...] | >60Comment: GFR <60: | >60 | [facility] | | | GFR | CHRONIC [...] | | | | | | [facility] traceable | | | | | | equation.Testing | | | | | | performed at [facility];[address] | | | | | | [address] [facility];[place], [place] | | | | | | [address] | | | | + + + + + + + + | Specimen | + + | Blood | + + + + + + + | Performing | Address | City/State/Zipcode | Phone Number | | Organization | | | | + + + + + | [facility] | [address] [facility] | [place] [address] | [phone] | + + + + + Protime [...] | | | | | performed at [facility];[address] | | | | | | [address];[place] | | | | | | [address] | | | | + + + + + + + + | Specimen | + + | Blood | + + + + + + + | Performing | Address | City/State/Zipcode | Phone Number | | Organization | | | | + + + + + | [facility] | [address] | [place] [address] | [phone] | + + + + + Potassium (09/19/2019 8:20 PM PST) + + + + + + | Component | Value | Ref Range | Performed | Pathologist | | | | | At | Signature | + + + + + + | K | 4.3Comment: Testing | 3.5 - 4.9 | [facility] | | | | performed at [facility];[address] | mmol/L | LABORATORY | | | | [address];[place], [place] | | | | | | [address] | | | | + + + + + + + + | Specimen | + + | Blood | + + + + + + + | Performing | Address | City/State/Zipcode | Phone Number | | Organization | | | | + + + + + | [facility] | [address] | [place] [address] | [phone] | + + + + + Potassium (09/19/2019 11:06 AM PST) + + + + + + | Component | Value | Ref Range | Performed | Pathologist | | | | | At | Signature | + + + + + + | K | 4.0Comment: Testing | 3.5 - 4.9 | [facility] | | | | performed at [facility];[address] | mmol/L | LABORATORY | | | | [address] [facility];[place], [place] | | | | | | [address] | | | | + + + + + + + + | Specimen | + + | Blood | + + + + + + + | Performing | Address | City/State/Zipcode | Phone Number | | Organization | | | | + + + + + | [facility] | [address] | [place] [address] | [phone] | + + + + + Magnesium (09/19/2019 4:20 AM PST) + + + + + + | Component | Value | Ref Range | Performed | Pathologist | | | | | At | Signature | + + + + + + | Magnesium | 1.7Comment: Testing | 1.7 - 2.4 mg/dL | [facility] | | | | performed at [facility];[address] | | LABORATORY | | | | [address];[place] | | | | | | [address] | | | | + + + + + + + + | Specimen | + + | Blood | + + + + + + + | Performing | Address | City/State/Zipcode | Phone Number | | Organization | | | | + + + + + | [facility] | [address] | [place] [address] | [phone] | + + + + + CBC [...] + + + + | RBC | 3.19 (L) | 4.20 - 5.70 [...] | | | Absolute | performed at [facility];[address] | K/uL | LABORATORY | | | | [address];[place], [place] | | | | | | [address] | | | | + + + + + + + + | Specimen | + + | Blood | + + + + + + + | Performing | Address | City/State/Zipcode | Phone Number | | Organization | | | | + + + + + | [facility] | [address] | [place] [address] | [phone] | + + + + + Comprehensive [...] | | | | | performed at [facility];[address] | | | | | | [facility];[place], [place] | | | | | | [address] | | | | + + + + + + + + | Specimen | + + | Blood | + + + + + + + | Performing | Address | City/State/Zipcode | Phone Number | | Organization | | | | + + + + + | [facility] | [address] | [place] [address] | [phone] | + + + + + Protime INR (09/19/2019 4:20 AM PST) + + + + + + | Component | Value | Ref Range | Performed | Pathologist | | | | | At | Signature | + + + + + + | INR | 2.9Comment: REFERENCE | | [facility] | | | [...] | | | | | performed at [facility] | | | | | | [address] [facility];[place], [place] | | | | | | [address] | | | | + + + + + + + + | Specimen | + + | Blood | + + + + + + + | Performing | Address | City/State/Zipcode | Phone Number | | Organization | | | | + + + + + | [facility] | [address] | [place] [address] | [phone] | + + + + + Magnesium (09/18/2019 4:06 AM PST) + + + + + + | Component | Value | Ref Range | Performed | Pathologist | | | | | At | Signature | + + + + + + | Magnesium | 1.9Comment: Testing | 1.7 - 2.4 mg/dL | [facility] | | | | performed at [facility];[address] | | LABORATORY | | | | [address];[place], [place] | | | | | | [address] | | | | + + + + + + + + | Specimen | + + | Blood | + + + + + + + | Performing | Address | City/State/Zipcode | Phone Number | | Organization | | | | + + + + + | [facility] | [address] | [place] [address] | [phone] | + + + + + CBC [...] + | RBC | 3.08 (L) | 4.20 - 5.70 [...] | | | Absolute | performed at [facility];[address] | K/uL | LABORATORY | | | | [address];[place] | | | | | | [address] | | | | + + + + + + + + | Specimen | + + | Blood | + + + + + + + | Performing | Address | City/State/Zipcode | Phone Number | | Organization | | | | + + + + + | [facility] | [address] | [place] [address] | [phone] | + + + + + Comprehensive [...] | >60Comment: GFR <60: | >60 | [facility] | | | GFR | CHRONIC [...] | | | | | | [facility] traceable | | | | | | equation.Testing | | | | | | performed at [facility] | | | | | | [facility];[place], [place] | | | | | | [address] | | | | + + + + + + + + | Specimen | + + | Blood | + + + + + + + | Performing | Address | City/State/Zipcode | Phone Number | | Organization | | | | + + + + + | [facility] | [address] | [place] [address] | [phone] | + + + + + Protime INR (09/18/2019 4:06 AM PST) + + + + + + | Component | Value | Ref Range | Performed | Pathologist | | | | | At | Signature | + + + + + + | INR | 2.7Comment: REFERENCE | | [facility] | | | | RANGE:0.9 - [...] | | | | | performed at [facility];[address] | | | | | [address];[place] | | | | | | [address] | | | | + + + + + + + + | Specimen | + + | Blood | + + + + + + + | Performing | Address | City/State/Zipcode | Phone Number | | Organization | | | | + + + + + | [facility] | [address] | [place] [address] | [phone] | + + + + + Magnesium (09/18/2019 12:02 AM PST) + + + + + + | Component | Value | Ref Range | Performed | Pathologist | | | | | At | Signature | + + + + + + | Magnesium | 2.0Comment: Testing | 1.7 - 2.4 mg/dL | [facility] | | | | performed at [facility];[address] | | LABORATORY | | | | [address];[place] | | | | | | [address] | | | | + + + + + + + + | Specimen | + + | Blood | + + + + + + + | Performing | Address | City/State/Zipcode | Phone Number | | Organization | | | | + + + + + | [facility] | [address] | [place] [address] | [phone] | + + + + + Phosphorus (09/18/2019 12:02 AM PST) + + + + + + | Component | Value | Ref Range | Performed | Pathologist | | | | | At | Signature | + + + + + + | Phosphorus | 2.4Comment: Testing | 2.3 - 4.8 mg/dL | [facility] | | | | performed at [facility];[address] | | LABORATORY | | | | [address];[place] | | | | | | [address] | | | | + + + + + + + + | Specimen | + + | Blood | + + + + + + + | Performing | Address | City/State/Zipcode | Phone Number | | Organization | | | | + + + + + | [facility] | [address] | [place] [address] | [phone] | + + + + + Potassium (09/18/2019 12:02 AM PST) + + + + + + | Component | Value | Ref Range | Performed | Pathologist | | | | | At | Signature | + + + + + + | K | 3.8Comment: Testing | 3.5 - 4.9 | [facility] | | | | performed at [facility];[address] | mmol/L | LABORATORY | | | | [address];[place], [place] | | | | | | [address] | | | | + + + + + + + + | Specimen | + + | Blood | + + + + + + + | Performing | Address | City/State/Zipcode | Phone Number | | Organization | | | | + + + + + | [facility] | [address] | [place] [address] | [phone] | + + + + + Phosphorus (09/17/2019 4:38 AM PST) + + + + + + | Component | Value | Ref Range | Performed | Pathologist | | | | | At | Signature | + + + + + + | Phosphorus | 2.5Comment: Testing | 2.3 - 4.8 mg/dL | [facility] | | | | performed at [facility];[address] | | LABORATORY | | | | [address];[place] | | | | | | [address] | | | | + + + + + + + + | Specimen | + + | Blood | + + + + + + + | Performing | Address | City/State/Zipcode | Phone Number | | Organization | | | | + + + + + | [facility] | [address] | [place] [address] | [phone] | + + + + + Magnesium (09/17/2019 4:38 AM PST) + + + + + + | Component | Value | Ref Range | Performed | Pathologist | | | | | At | Signature | + + + + + + | Magnesium | 1.8Comment: Testing | 1.7 - 2.4 mg/dL | [facility] | | | | performed at [facility];[address] | | LABORATORY | | | | [address];[place] | | | | | | [address] | | | | + + + + + + + + | Specimen | + + | Blood | + + + + + + + | Performing | Address | City/State/Zipcode | Phone Number | | Organization | | | | + + + + + | [facility] | [address] | [place] [address] | [phone] | + + + + + CBC [...] + + + + | RBC | 3.07 (L) | 4.20 - 5.70 [...] | | | Absolute | performed at [facility];[address] | K/uL | LABORATORY | | | | [address];[place] | | | | | | [address] | | | | + + + + + + + + | Specimen | + + | Blood | + + + + + + + | Performing | Address | City/State/Zipcode | Phone Number | | Organization | | | | + + + + + | [facility] | [address] | [place] [address] | [phone] | + + + + + Comprehensive [...] | | | | | performed at [facility];[address] | | | | | | [address];[place], [place] | | | | | | [address] | | | | + + + + + + + + | Specimen | + + | Blood | + + + + + + + | Performing | Address | City/State/Zipcode | Phone Number | | Organization | | | | + + + + + | [facility] | [address] | [place] [address] | [phone] | + + + + + Protime INR (09/17/2019 4:38 AM PST) + + + [...] | | | | | performed at [facility] | | | | | | [address];[place], [place] | | | | | | [address] | | | | + + + + + + + + | Specimen | + + | Blood | + + + + + + + | Performing | Address | City/State/Zipcode | Phone Number | | Organization | | | | + + + + + | [facility] | [address] | [place] [address] | [phone] | + + + + + Phosphorus (09/16/2019 4:11 AM PST) + + + + + + | Component | Value | Ref Range | Performed | Pathologist | | | | | At | Signature | + + + + + + | Phosphorus | 2.7Comment: Testing | 2.3 - 4.8 mg/dL | [facility] | | | | performed at [facility];[address] | | LABORATORY | | | | [address];[place], [place] | | | | | | [address] | | | | + + + + + + + + | Specimen | + + | | + + + + + + + | Performing | Address | City/State/Zipcode | Phone Number | | Organization | | | | + + + + + | [facility] | [address] | [place] [address] | [phone] | + + + + + Magnesium (09/16/2019 4:11 AM PST) + + + + + + | Component | Value | Ref Range | Performed | Pathologist | | | | | At | Signature | + + + + + + | Magnesium | 2.4Comment: Testing | 1.7 - 2.4 mg/dL | [facility] | | | | performed at [facility];8 | | LABORATORY | | | | [address];[place], [place] | | | | | | [address] | | | | + + + + + + + + | Specimen | + + | Blood | + + + + + + + | Performing | Address | City/State/Zipcode | Phone Number | | Organization | | | | + + + + + | [facility] | [address] | [place] [address] | [phone] | + + + + + CBC [...] + + + + | RBC | 2.78 (L) | 4.20 - 5.70 [...] | | | Absolute | performed at [facility];[address] | K/uL | LABORATORY | | | | [address];[place], [place] | | | | | | [address] | | | | + + + + + + + + | Specimen | + + | Blood | + + + + + + + | Performing | Address | City/State/Zipcode | Phone Number | | Organization | | | | + + + + + | [facility] | [address] | [place] [address] | [phone] | + + + + + Comprehensive [...] | | | | | performed at [facility];[address] | | | | | | [facility];[place], [place] | | | | | | [address] | | | | + + + + + + + + | Specimen | + + | Blood | + + + + + + + | Performing | Address | City/State/Zipcode | Phone Number | | Organization | | | | + + + + + | [facility] | [address] | [place] [address] | [phone] | + + + + + Protime INR (09/16/2019 4:11 AM PST) + + + + + + | Component | Value | Ref Range | Performed | Pathologist | | | | | At | Signature | + + + + + + | INR | 1.6Comment: REFERENCE | | [facility] | | | | RANGE:0.9 - [...] | | | | | performed at [facility];[address] | | | | | | [address];[place], [place] | | | | | | [address] | | | | + + + + + + + + | Specimen | + + | Blood | + + + + + + + | Performing | Address | City/State/Zipcode | Phone Number | | Organization | | | | + + + + + | [facility] | [address] | [place] [address] | [phone] | + + + + + XR [...] Testing | 1.7 - 2.4 mg/dL | [facility] | | | | performed at [facility];[address] | | LABORATORY | | | | [address];[place], [place] | | | | | | [address] | | | | + + + + + + + + | Specimen | + + | Blood | + + + + + + + | Performing | Address | City/State/Zipcode | Phone Number | | Organization | | | | + + + + + | [facility] | [address] | [place] [address] | [phone] | + + + + + CBC [...] + + + + | RBC | 2.99 (L) | 4.20 - 5.70 [...] 0.03Comment: Testing | 0.00 - 0.10 | [facility] | | | Absolute | performed at [facility];[address] | K/uL | LABORATORY | | | | [address];[place] | | | | | | [address] | | | | + + + + + + + + | Specimen | + + | Blood | + + + + + + + | Performing | Address | City/State/Zipcode | Phone Number | | Organization | | | | + + + + + | [facility] | [address] | [place] [address] | [phone] | + + + + + Comprehensive [...] (L) | 10 - 65 U/L | [facility] | | | | | | LABORATORY | | + + + + + + | Estimated | >60Comment: GFR <60: | >60 | [facility] | | | GFR | CHRONIC [...] | | | | | performed at [facility] | | | | | | [facility];[place], [place] | | | | | | [address] | | | | + + + + + + + + | Specimen | + + | Blood | + + + + + + + | Performing | Address | City/State/Zipcode | Phone Number | | Organization | | | | + + + + + | [facility] | [address] | [place] [address] | [phone] | + + + + + Protime INR (09/15/2019 4:03 AM PST) + + + + + + | Component | Value | Ref Range | Performed | Pathologist | | | | | At | Signature | + + + + + + | INR | 1.4Comment: REFERENCE | | [facility] | | | [...] | | | | | performed at [facility] | | | | | | [facility];[place], [place] | | | | | | [address] | | | | + + + + + + + + | Specimen | + + | Blood | + + + + + + + | Performing | Address | City/State/Zipcode | Phone Number | | Organization | | | | + + + + + | [facility] | [address] | [place] [address] | [phone] | + + + + + Digoxin [...] (L)Comment: Testing | 0.90 - 2.00 | [facility] | | | level | performed at [facility];[address] | ng/mL | LABORATORY | | | | [address];[place] | | | | | | [address] | | | | + + + + + + + + | Specimen | + + | Blood | + + + + + + + | Performing | Address | City/State/Zipcode | Phone Number | | Organization | | | | + + + + + | [facility] | [address] | [place] [address] | [phone] | + + + + + CBC [...] + + + + | RBC | 3.20 (L) | 4.20 - 5.70 [...] | | | Absolute | performed at [facility];[address] | K/uL | LABORATORY | | | | [address];[place] | | | | | | [address] | | | | + + + + + + + + | Specimen | + + | Blood | + + + + + + + | Performing | Address | City/State/Zipcode | Phone Number | | Organization | | | | + + + + + | [facility] | [address] | [place] [address] | [phone] | + + + + + Comprehensive [...] | >60Comment: GFR <60: | >60 | [facility] | | | GFR | CHRONIC [...] | | | | | | [facility] traceable | | | | | | equation.Testing | | | | | | performed at [facility];[address] | | | | | | [facility];[place], [place] | | | | | | [address] | | | | + + + + + + + + | Specimen | + + | Blood | + + + + + + + | Performing | Address | City/State/Zipcode | Phone Number | | Organization | | | | + + + + + | [facility] | [address] | [place] [address] | [phone] | + + + + + Magnesium (09/14/2019 9:23 AM PST) + + + + + + | Component | Value | Ref Range | Performed | Pathologist | | | | | At | Signature | + + + + + + | Magnesium | 1.6 (L)Comment: Testing | 1.7 - 2.4 mg/dL | [facility] | | | | performed at [facility];[address] | | LABORATORY | | | | [address];[place] | | | | | | [address] | | | | + + + + + + + + | Specimen | + + | Blood | + + + + + + + | Performing | Address | City/State/Zipcode | Phone Number | | Organization | | | | + + + + + | [facility] | [address] | [place] [address] | [phone] | + + + + + ECHO [...] | | | | | | [facility] | | | | | + + [...] | + +---------+ + + Protime INR (09/14/2019 4:09 AM PST) + + [...] | | | | | performed at [facility] | | | | | | [facility];[place], [place] | | | | | | [address] | | | | + + + + + + + + | Specimen | + + | Blood | + + + + + + + | Performing | Address | City/State/Zipcode | Phone Number | | Organization | | | | + + + + + | [facility] | [address] | [place] [address] | [phone] | + + + + + POC Glucose (09/13/2019 12:29 PM PST) + + + + + + | Component | Value | Ref Range | Performed | Pathologist | | | | | At | Signature | + + + + + + | Glucose, | 148 (H)Comment: Testing | 65 - 99 mg/dL | [facility] | | | POC | performed at [facility];[address] | | LABORATORY | | | | [address];[place] | | | | | | [address] | | | | + + + + + + + + | Specimen | + + | | + + + + + + + | Performing | Address | City/State/Zipcode | Phone Number | | Organization | | | | + + + + + | [facility] | [address] | [place] [address] | [phone] | + + + + + Protime INR (09/13/2019 4:05 AM PST) + + + + + + | Component | Value | Ref Range | Performed | Pathologist | | | | | At | Signature | + + + + + + | INR | 1.2Comment: REFERENCE | | [facility] | | | [...] | | | | | performed at [facility] | | | | | | [address];[place], [place] | | | | | | [address] | | | | + + + + + + + + | Specimen | + + | Blood | + + + + + + + | Performing | Address | City/State/Zipcode | Phone Number | | Organization | | | | + + + + + | [facility] | [address] | [place] [address] | [phone] | + + + + + CBC [...] + + + + | RBC | 3.32 (L) | 4.20 - 5.70 [...] 0.02Comment: Testing | 0.00 - 0.10 | LIBRADO | | | Absolute | performed at [facility];[address] | | | | [address];[place], [place] | | | | | | [address] | | | | + + + + + + + + | Specimen | + + | Blood | + + + + + + + | Performing | Address | City/State/Zipcode | Phone Number | | Organization | | | | + + + + + | [facility] | [address] | [place] [address] | [phone] | + + + + + Basic [...] | | | | | performed at [facility];[address] | | | | | | [address];[place], [place] | | | | | | [address] | | | | + + + + + + + + | Specimen | + + | Blood | + + + + + + + | Performing | Address | City/State/Zipcode | Phone Number | | Organization | | | | + + + + + | [facility] | [address] [facility] | [place] [address] | [phone] | + + + + + Troponin I (09/12/2019 5:28 PM PST) + + + + + + | Component | Value | Ref Range | Performed | Pathologist | | | | | At | Signature | + + + + + + | Troponin I | 0.167 (H)Comment: 0.04 | 0.00 - 0.04 | [facility] | | | | ng/mL or [...] at | | | | | | [facility];[address];[place] [address] | | | | + + + + + + + + | Specimen | + + | Blood | + + + + + + + | Performing | Address | City/State/Zipcode | Phone Number | | Organization | | | | + + + + + | [facility] | [address] | [place] [address] | [phone] | + + + + + Protime INR (09/12/2019 4:27 PM PST) + + + + + + | Component | Value | Ref Range | Performed | Pathologist | | | | | At | Signature | + + + + + + | INR | 1.2Comment: REFERENCE | | [facility] | | | [...] | | | | | performed at [facility];[address] | | | | | | [address];[place], [place] | | | | | | [address] | | | | + + + + + + + + | Specimen | + + | Blood | + + + + + + + | Performing | Address | City/State/Zipcode | Phone Number | | Organization | | | | + + + + + | [facility] | [address] | [place] [address] | [phone] | + + + + + Troponin I (09/12/2019 11:25 AM PST) + + + + + + | Component | Value | Ref Range | Performed | Pathologist | | | | | At | Signature | + + + + + + | Troponin I | 0.136 (H)Comment: 0.04 | 0.00 - 0.04 | [facility] | | | | ng/mL or [...] at | | | | | | [facility];[address];[place] [address] | | | | + + + + + + + + | Specimen | + + | Blood | + + + + + + + | Performing | Address | City/State/Zipcode | Phone Number | | Organization | | | | + + + + + | [facility] | [address] | [place] [address] | [phone] | + + + + + ECG [...] MD | | | | | | ([id number]) on 09/12/2019 | | | | | [...] + + + + | RBC | 3.30 (L) | 4.20 - 5.70 [...] | | | Absolute | performed at [facility];[address] LAB[address]ATORY | | | [address];[place], [place] | | | | | | [address] | | | | + + + + + + + + | Specimen | + + | Blood | + + + + + + + | Performing | Address | City/State/Zipcode | Phone Number | | Organization | | | | + + + + + | [facility] | [address] | [place] [address] | [phone] | + + + + + Basic [...] | | | | | performed at [facility] | | | | | | [facility];[place], [place] | | | | | | [address] | | | | + + + + + + + + | Specimen | + + | Blood | + + + + + + + | Performing | Address | City/State/Zipcode | Phone Number | | Organization | | | | + + + + + | [facility] | [address] | [place] [address] | [phone] | + + + + + Protime INR (09/11/2019 2:35 PM PST) + + + + + + | Component | Value | Ref Range | Performed | Pathologist | | | | | At | Signature | + + + + + + | INR | 1.2Comment: REFERENCE | | [facility] | | | [...] | | | | | performed at [facility];[address] | | | | | | [address] [facility];[place], [place] | | | | | | [address] | | | | + + + + + + + + | Specimen | + + | Blood | + + + + + + + | Performing | Address | City/State/Zipcode | Phone Number | | Organization | | | | + + + + + | [facility] | [address] | [place] [address] | [phone] | + + + + + IR Angiogram Lower Extremity Left (09/11/2019 11:36 AM PST) + + | Specimen | + + | | + + + + ---+ | Narrative | Performed A t | + + ---+ | [place] | [facility] | | [facility] OPERATIVE [...] iliac artery. Using | | | a [place] a endarterectomy was performed of the common [...] | | | advanced and a 8 [place] 23 cm Sheath was placed. A an [...] introduced a | | | 3 mm [place] angioplasty balloon and dilated the common and [...] with a 10 mm | | | [place] and the external iliac post dilated with an 8 mm [place]. | | | Repeat contrast injection showed [...] signal in the profunda femoris, SFA, and SOFTWARE PRODUCT MANAGER. The left groin wound | | | was thoroughly irrigated. The incision was then closed in layers | | | first with a 2-0 Vicryl, then 3-0 Vicryl. [place] were used to | | | re-approximate [...] signal in the profunda femoris, SFA, and SOFTWARE PRODUCT MANAGER. The left | | |groin wound was thoroughly irrigated. The incision was then closed in | | |layers first with a 2-0 Vicryl, then 3-0 Vicryl. Samy were used to | | |re-approximate the [...] + + | Performing | Address | City/State[facility] | Phone Number | | [...] with homogeneous cut surfaces. | | | Foam Fabricator sections of the lymph node are submitted [...] surfaces are laminated | | | herrera-yellow. Foam Fabricator sections are submitted in cassette A1 | [...] component was performed | | | by [facility], [address] [place] [address] (Medical | | | Director: Radha Morse MD; CLIA# [id number]). Professional | | | interpretation [facility] | | | [address] (Medical | | | Director: Prasanth Suggs M.D.; CLIA#: [id number]). Diagnostician: | | | Radha Morse MDPathologistElectronically Signed 09/14/2019 | | |question about this report, please contact Client Services. | | | | | |PERFORMING LABORATORY: | | |The technical component was performed by [facility], [address] [place] [address] (Plastic Molding Operator: Radha Morse MD; CLIA# [id number]). Professional interpretation was performed by | | |[facility] (Plastic Molding Operator: Prasanth Suggs M.D.; CLIA#: [id number]). | | | | | |Diagnostician: Radha [...] | INR | 1.2Comment: REFERENCE | | [facility] | | | [...] | | | | | performed at [facility];[address] | | | | | | [address];[place], [place] | | | | | | [address] | | | | + + + + + + + + | Specimen | + + | Blood | + + + + + + + | Performing | Address | City/State/Zipcode | Phone Number | | Organization | | | | + + + + + | [facility] | [address] | [place] [address] | [phone] | + + + + + documented in this encounter Visit Diagnoses + + | Diagnosis | + + | PVD (peripheral vascular disease) ([facility]) - Primary Peripheral vascular disease, | | unspecified | + + | PAD (peripheral artery disease) ([facility]) Unspecified disorders of arteries and | | [...] + + | Atrial fibrillation with RVR (HCC) Atrial fibrillation | + + | Postprocedural [...] | mL/hr | | | Hours, ONCE, [facility] 09/15/19 at 0015, | | AM PST | | | | | For 1 dose | | | | | | + +---------+ +------+-------+---+ + +---+ | | | + +---+ | amiodarone (PACERONE) tablet | | | 200 mg 200 mg, Oral, DAILY, | | | First dose on [facility] 09/24/19 at 0900 | | [...] | | mg 300 mg, Oral, ONCE, Sat | | 20 4:53 | | | [...] | | TIMES DAILY, First dose on Tue | | AM PST | | | [...] | | | | | | longer, ukokln-mmw-xevis use of | | | | | [...] | | | | | PRN, Starting 09/11/19 at 1141 | | AM PST | [...] | | | 09/17/19 at 0231, Thad castellanos., | | | | | | + [...] | | | EARLY, First dose on 09/14/19 | | AM PST | | | [...] | | | | | modification) on e 09/15/19 at | | | | | [...] PM PST | | | | | 09/11/19 at 1424, If docusate | | | [...] | | | | | modification) on 09/19/19 at | | | | | | [...]
--- OUTSIDE RECORDS SUMMARY | ~2019-11-20 | XMS | Encounter Summary ---
Demographics + + + | Address | [address] | | | [place] [address] | + + + | Home Phone | | + + + | Preferred Language | Unknown | + + + | Marital Status | | + + + | Rastafari Affiliation | Unknown | + + + | Race | Unknown | + + + | Ethnic Group | Unknown | + + + Author + + + | Author | [facility] | | | and Eduardana | + + + | Organization | [facility] | | | and [...] [place] | | | | | [address] | | + + + + + Care Team Providers + +------+ + | Care Court Registry Officer Name | Role | Phone | + +------+ + | Carlos Alberto Galeas MD | PCP | | + +------+ + Encounter Details +--------+ + + + + | Date | Type | Department | Care Team | Description | +--------+ + + + + | 12/31/ | Hospital | [facility] | Sajan Hernandez, | Other closed | | 2017 - | Encounter | [facility] [address] | fracture of shaft of | | | | [place], | [address] | right femur with | | 01/17/ | | [place] [address] | [place] [address] | routine healing, | | 2017 | | [phone] | [phone] | subsequent encounter | | | | [...] are age indeterminate. They are mild and aauh-om-ztavpyam deformities. Diffuse demineralization. Diffuse lumbar spondylosis. Possible [...] are age indeterminate. They are mild and joer-kh-ftnehlbh deformities. Diffuse demineralization. Diffuse lumbar spondylosis. Possible [...] are age indeterminate. They are mild and pdrx-nx-zbhqxaay deformities. Diffuse demineralization. Diffuse lumbar spondylosis. Possible [...] so his called EMS. Patient lives in [place], [place] and was initially ta yasir to [facility] in [place] where he was found to have a right mid-shaft femoral and l eft intertrochanteric femur fractures. There was no on-call ortho so he was transferred to [place] for definitive treatment. 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 Limit FOCUSER active medications using lowest effective dose. -Implement [...] this chart may have been created with [employer] voice recognition software. Occasi onal wrong-word or [...] 7); CVA (cerebral vascular accident) ([facility]) 2012 (2012); Mycosis fungoides ([facility]) Dx [facility] approx 1999; and Urinary retention. Patient is receiving warfarin for thromboprophyla xis postop and also for atrial flutter. Surgery date: 12/19/2016 ORIF IM rodding femoral Dr. Mancuso Goal INR: 2-3 Home dose: 3mg daily Drug Interactions:Amiodarone (METAL SPINNER med) Sensitizers:Age, renal fun Recent Labs Lab [...] for aflutter/past cva Pt is receiving amiodarone (travel pta med) 01/13 good po intake. Plan: Warfarin 2mg x 1. 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 Patient is receiving warfarin for thromboprophyla xis postop and also for atrial flutter. Surgery date: 12/19/2016 ORIF IM rodding femoral Dr. Mancuso Goal INR: 2-3 Home dose: 3mg daily Drug Interactions:Amiodarone (METAL SPINNER med) Sensitizers:Age, renal fun Recent Labs Lab [...] for aflutter/past cva Pt is receiving amiodarone (travel pta med) 01/13 good po intake. Plan: Warfarin 1mg x 1. Am labs: INR Warfarin education received No; METAL SPINNER Will monitor daily Warfarin Dosing Nomogram Warfarin Dosing Expectations Per P&T-approved Electronically signed by: Ora Aranda Jan 01/16/2017 11:33 [facility] BaldwinDeonte hebert MD - 01/16/2017 10:58 AM PDTFormatting [...] hand, right, initial encounter 12. Antalgic gait Nays-gc-Ikag Rehabilitation Medicine Daily Progress Note Date: 01/16/17 [...] new hand rail for stairs into ho wy as current rails are too wide for [...] MD, 1 0 mg at 01/16/17 0607 ljjyqahe-yddngtzsb-vtnbwdlgss (NEOSPORIN) ointment, , Topical, TID, Deonte sow [...] 0.8 mg, Oral, Daily after breakfast, Sajan periera MD, 0.8 mg at 01/16/17 0821 traMADol [...] -Avoid diphenhydramine, benzodiazepines, scopolamine, and metoclopramide. Limit FOCUSER active medications using lowest effective dose. -Implement [...] this chart may have been created with [employer] voice recognition software. Occasi onal wrong-word or sound-alike substitutions may have occurred due to the inherent ness itations of voice recognition software. Please read the chart carefully and recognize, using context, where these substitutions have occurred. 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 Patient is receiving warfarin for thromboprophyla xis postop and also for atrial flutter. Surgery date: 12/19/2016 ORIF IM carlos Mancuso Goal INR: 2-3 Home dose: 3mg daily Drug Interactions:Amiodarone (METAL SPINNER med) Sensitizers:Age, renal fun Recent Labs Lab [...] Am labs: INR Warfarin education received No; METAL SPINNER Will monitor daily Warfarin Dosing Nomogram Warfarin [...] Urinary retention due to benign prostatic hyperplasia Tysg-xu-Hvaz Rehabilitation Medicine Daily Progress Note Date: 01/15/17 [...] -Avoid diphenhydramine, benzodiazepines, scopolamine, and metoclopramide. Limit FOCUSER active medications using lowest effective dose. -Implement [...] care regarding the above plan. Signed: Placido Staplse MD Portions of this chart may have been created with [employer] voice recognition software. Occasi onal wrong-word or sound-alike substitutions may have occurred due to the inherent ness itations of voice recognition software. Please read the chart carefully and recognize, using context, where these substitutions have occurred. 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 Limit FOCUSER active medications using lowest effective dose. 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 Patient is receiving warfarin for thromboprophyla xis postop and also for atrial flutter. Surgery date: 12/19/[address] Mancuso Goal INR: 2-3 Enoxaparin bridge: disch Inr>2 none Home dose: 3mg daily Drug Interactions:Amiodarone (METAL SPINNER med) Sensitizers:Age, renal fun Recent Labs Lab [...] Am labs: INR Warfarin education received No; METAL SPINNER Will monitor daily Warfarin Dosing Nomogram Warfarin Dosing Expectations Per P&T-approved Electronically signed by: Radha Doherty, PharmD 01/14/2017 14:40 Carine Santos RN - 01/14/2017 10:11 AM PDTchnaged drsgs to skin tear to marilynn and lue left Also placed telfa to right wrist r/t skin tear. 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 Patient is receiving warfarin for thromboprophyla xis postop and also for atrial flutter. Surgery date: 12/19/[address] 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 Patient is receiving warfarin for thromboprophyla xis postop and also for atrial flutter. Surgery date: 12/19/[address] Mancuso Goal INR: 2-3 Enoxaparin bridge: disch Inr>2 none Home dose: 3mg daily Drug Interactions:Amiodarone (METAL SPINNER med) Sensitizers:Age, renal fun Recent Labs Lab [...] Am labs: INR Warfarin education received No; METAL SPINNER Will monitor daily Warfarin Dosing Nomogram Warfarin Dosing Expectations Per P&T-approved Electronically signed by: Ora Aranda [facility] 01/12/2017 10:05 Sajan Worrell MD - 01/11/2017 4:33 PM PDT Fzaz-pe-Ofjh Rehabilitation Medicine Daily Progress Note Date: 01/11/17 [...] PH UA 6.0 5.0 - 8.0 Specific [place] 1.017 1.001 - 1.030 PROTEIN UA 30 [...] -Avoid diphenhydramine, benzodiazepines, scopolamine, and metoclopramide. Limit FOCUSER active medications using lowest effective dose. -Implement [...] this chart may have been created with [employer] voice recognition software. 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 Patient is receiving warfarin for thromboprophyla xis postop and also for atrial flutter. Surgery date: 12/19/[address] 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 Patient is receiving warfarin for thromboprophyla xis postop and also for atrial flutter. Surgery date: 12/19/[address] Gryler Goal INR: 2-3 Enoxaparin bridge: disch Inr>2 none Drug Interactions:Amiodarone (METAL SPINNER med) Sensitizers:Age, renal fun Recent Labs Lab [...] Am labs: INR Warfarin education received No; METAL SPINNER Will monitor daily Warfarin Dosing Nomogram Warfarin Dosing Expectations Per P&T-approved Electronically signed by: Ora Aranda [facility] 01/10/2017 10:36 Sajan Worrell MD - 01/09/2017 8:56 PM PDT Fcja-bb-Mikq Rehabilitation Medicine Daily Progress Note Date: 01/09/17 ID/CC: Mr. Thomason is a 86-year-old man with a history of a fib admitted 12/18/16 after a GLF resulti ng in right mid-shaft femoral and left intertrochanteric femur fractures resulting in impair ed mobility, transfers, and self-care. Interval history: Controlled fall with OT this morning, patient either miss-judged where [facility] was or slid off [facility] cushion. Low impact no pain after fall. Did have some lower back muscle spasms as he d id on Sat in the afternoon, which limited therapies today, and eventually improved with [facility] relaxer. Review of Systems - Constitutional [...] -Avoid diphenhydramine, benzodiazepines, scopolamine, and metoclopramide. Limit FOCUSER active medications using lowest effective dose. -Implement [...] this chart may have been created with [employer] voice recognition software. Occasi onal wrong-word or [...] his PCP, Dr. Carlos Alberto Galeas, at [facility] in [place], [place]. Ck Miller, PharmD - 01/09/2017 7:54 AM PDT WARFARIN PER PHARMACY PROTOCOL: Subjective/Objective: Deborah Thomason is a 86 y.o. male admitted on 12/31/2016 for orthopedic surgery secondar y to femoral fracture. 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 Patient is receiving warfarin for thromboprophyla xis postop and also for atrial flutter. Surgery date: 12/19/[address] Mancuso Goal INR: 2-3 Enoxaparin bridge: disch Inr>2 none Drug Interactions:Amiodarone (METAL SPINNER med) Sensitizers:Age Recent Labs Lab 01/09/17 0631 [...] Am labs: INR Warfarin education received No; METAL SPINNER Will monitor daily Warfarin Dosing Nomogram Warfarin Dosing Expectations Per P&T-approved Electronically signed by: David Mcclendon, Store Planner 01/09/2017 7:49 Sajan Worrell MD - 01/08/2017 10:22 PM PDT Ulij-qc-Texf Rehabilitation Medicine Daily Progress Note Date: 01/08/17 [...] -Avoid diphenhydramine, benzodiazepines, scopolamine, and metoclopramide. Limit FOCUSER active medications using lowest effective dose. -Implement [...] this chart may have been created with [employer] voice recognition software. 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 Patient is receiving warfarin for thromboprophyla xis postop and also for atrial flutter. Surgery date: 12/19/[address] Mancuso Goal INR: 2-3 Enoxaparin bridge: disch Inr>2 none Drug Interactions:Amiodarone (METAL SPINNER med) Sensitizers:Age Recent Labs Lab 01/08/17 0554 [...] Am labs: INR Warfarin education received No; METAL SPINNER Will monitor daily Warfarin Dosing Nomogram Electronically signed by: Ck Newman PharmD 01/08/2017 8:23 Azra Colon RN - 01/07/2017 1:25 PM PDTWit h patient's verbal permission, a copy of the Rehab Team Conference report from 01/04/17 was f axed to his PCP, Dr. Carlos Alberto Galeas, at [facility] in [place], [place].Electro nically signed by Azra Payan RN at 01/07/2017 1:26 PM Ck Suarez PharmD - 12/20 1:15 PM PDT WARFARIN PER PHARMACY PROTOCOL: Subjective/Objective: Deborah Thomason is a 86 y.o. male admitted on 12/31/2016 for orthopedic surgery secondar y to femoral fracture. 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 Patient is receiving warfarin for thromboprophyla xis postop and also for atrial flutter. Surgery date: 12/19/[address] Mancuso Goal INR: 2-3 Enoxaparin bridge: disch Inr>2 none Drug Interactions:Amiodarone (METAL SPINNER med) Sensitizers:Age Recent Labs Lab 01/07/17 0638 [...] Am labs: INR Warfarin education received No; METAL SPINNER Will monitor daily Warfarin Dosing Nomogram Electronically signed by: David Mcclendon, Store Planner 01/07/2017 12:59 AMoSajan pereira MD - 01/07/2017 12:31 PM PDT Bhbz-go-Psjt Rehabilitation Medicine Daily Progress Note Date: 01/07/17 [...] -Avoid diphenhydramine, benzodiazepines, scopolamine, and metoclopramide. Limit FOCUSER active medications using lowest effective dose. -Implement [...] this chart may have been created with [employer] voice recognition software. Occasi onal wrong-word or sound-alike substitutions may have occurred due to the inherent enss itations of voice recognition software. Please read the chart carefully and recognize, using context, where these substitutions have occurred. olph, Kaylene Bartlett PH - 01/06/2017 9:54 AM PDT WARFARIN PER PHARMACY PROTOCOL: Subjective/Objective: Deborah Thomason is a 86 y.o. male admitted on 12/31/2016 for orthopedic surgery secondar y to femoral fracture. 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 Patient is receiving warfarin for thromboprophyla xis postop and also for atrial flutter. Surgery date: 12/19/[address] 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 Patient is receiving warfarin for thromboprophyla xis postop and also for atrial flutter. Surgery date: 12/19/2016 [x]Fx []THR []TKR Dr. Mancuso Goal INR: 2-3 Enoxaparin bridge: []disch [x]Inr>2 []none Drug Interactions:Amiodarone (METAL SPINNER med) Sensitizers:Age Recent Labs Lab 01/05/17 0631 [...] Am labs: INR Warfarin education received No; METAL SPINNER Will monitor daily Warfarin Dosing Nomogram Warfarin Dosing Expectations Per P&T-approved Radha Doherty PharmD 01/05/2017 12:17 Radha Ferrer, Ph armD - 01/04/2017 12:23 PM PDT WARFARIN PER PHARMACY PROTOCOL: Subjective/Objective: Deborah Thomason is a 86 y.o. male admitted on 12/31/2016 for orthopedic surgery secondar y to femoral fracture. 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 Patient is receiving warfarin for thromboprophyla xis postop and also for atrial flutter. Surgery date: 12/19/2016 [x]Fx []THR []TKR Dr. Mancuso Goal INR: 2-3 Enoxaparin bridge: []disch [x]Inr>2 []none Drug Interactions:Amiodarone (METAL SPINNER med) Sensitizers:Age Recent Labs Lab 01/04/17 0638 [...] Am labs: INR Warfarin education received No; METAL SPINNER Will monitor daily Warfarin Dosing Nomogram Warfarin Dosing Expectations Per P&T-approved Radha Doherty, PharmD 01/04/2017 12:23 Sajan Worrell MD - 01/03/2017 4:59 PM PDT Dpxk-sm-Xmvn Rehabilitation Medicine Daily Progress Note Date: 01/03/17 [...] -Avoid diphenhydramine, benzodiazepines, scopolamine, and metoclopramide. Limit FOCUSER active medications using lowest effective dose. -Implement [...] this chart may have been created with [employer] voice recognition software. 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 Patient is receiving warfarin for thromboprophyla xis postop and also for atrial flutter. Surgery date: 12/19/2016 [x]Fx []THR []TKR Dr. Mancuso Goal INR: 2-3 Enoxaparin bridge: []disch [x]Inr>2 []none Drug Interactions:Amiodarone (METAL SPINNER med) Sensitizers:Age Recent Labs Lab 01/03/17 0638 [...] Am labs: INR Warfarin education received No; METAL SPINNER Will monitor daily Warfarin Dosing Nomogram Warfarin Dosing Expectations Per P&T-approved Radha Doherty, PharmD 01/03/2017 12:25 Sajan Worrell MD - 01/02/2017 8:30 PM PDT Srse-pz-Avai Rehabilitation Medicine Daily Progress Note Date: 01/02/17 [...] mg, Oral, Daily - Warfarin, Ora Aranda, [facility], 3 m g at 01/02/17 172 warfarin [...] UA 9.0 (H) 5.0 - 8.0 Specific [place] 1.012 1.001 - 1.030 PROTEIN UA Negative [...] diphenhydramine, benzodiazepines, scopolamine, and metoclopram manuel. Limit FOCUSER active medications using lowest effective dose. -Implement [...] this chart may have been created with [employer] voice recognition software. 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 Patient is receiving warfarin for thromboprophyla xis postop and also for atrial flutter. Surgery date: 12/19/2016 [x]Fx []THR []TKR Dr. 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 Patient is [...] Am labs: inr Warfarin education received No; METAL SPINNER Will monitor daily Warfarin Dosing Nomogram Warfarin [...] | | | | | [place] | | | | | | [address] | | | | | | | [...] ST. | [address] | [place] | [phone] | | [facility] | | [address] | | | - LABORATORY | | [...] [address] | [place] | [phone] | | [facility] | | [address] | | | - LABORATORY | | [...] | GLOMERULAR FILTRATION | mL/min/1.73m2 | [facility] | | | [place] | RATE,ESTIMATED | | MEDICAL | | | | mL/min/1.22d0Ihjy than | | CENTER - | | [...] [address] | [place] | [phone] | | [facility] | | [address] | | | - LABORATORY | | [...] | | | They are mild and lsdy-pg-kmmekwcq deformities. Diffuse | | | demineralization. Diffuse [...] are age indeterminate. They are mild and hprf-ui-zzhsciqb deformities.Diffuse | | demineralization.Diffuse lumbar spondylosis.Possible aneurysmal [...] indeterminate. | | They are mild and cwze-vv-uibwjtrz deformities. | | | |Diffuse demineralization. | [...] | | | They are mild and curi-ac-zamwrxbd deformities. Diffuse | | | demineralization. Diffuse [...] are age indeterminate. They are mild and jnpb-zt-btvffjyp deformities.Diffuse | | demineralization.Diffuse lumbar spondylosis.Possible aneurysmal [...] indeterminate. | | They are mild and ypie-ge-jwdwnviz deformities. | | | |Diffuse demineralization. | [...] | | | They are mild and iuxe-zs-kdwzqukp deformities. Diffuse | | | demineralization. Diffuse [...] are age indeterminate. They are mild and zusg-hu-obvsjhyn deformities.Diffuse | | demineralization.Diffuse lumbar spondylosis.Possible aneurysmal [...] indeterminate. | | They are mild and cyxq-va-dkfyyzuc deformities. | | | |Diffuse demineralization. | [...] + | [facility] | [address] | [place] | [phone] | | [facility] | | [address] | | | - LABORATORY | | [...] mL/min/1.73m2 | [facility] | | | CHINESE | RATE,ESTIMATED | | MEDICAL | | | | mL/min/1.60h2Vsel than | | CENTER - | | [...] [address] | [place] | [phone] | | [facility] | | [address] | | | - LABORATORY | | [...] [address] | [place] | [phone] | | [facility] | | [address] | | | - LABORATORY | | [...] + | [facility] | [address] | [place] | [phone] | | [facility] | | [address] | | | - LABORATORY | | [...] [address] | [place] | [phone] | | [facility] | | [address] | | | - LABORATORY | | [...] + + | Performing | Address | City/State/[facility] | Phone Number | | Organization | | | | + + + + + | [facility] | [address] | [place] | [phone] | | [facility] | | [address] | | | - LABORATORY | | [...] | | Lavender | | | [facility] | | | Top Tube | | [...] [address] | [place] | [phone] | | [facility] | | [address] | | | - LABORATORY | | [...] + | [facility] | [address] | [place] | [phone] | | [facility] | | [address] | | | - LABORATORY | | [...] [address] | [place] | [phone] | | [facility] | | [address] | | | - LABORATORY | | [...] [address] | [place] | [phone] | | [facility] | | [address] | | | - LABORATORY | | [...] - 1.030 | [facility] | | | [place], | | | [facility] | | [...] + | [facility] | [address] | [place] | [phone] | | [facility] | | [address] | | | - LABORATORY | | [...] [address] | [place] | [phone] | | [facility] | | [address] | | | - LABORATORY | | [...] (H) | 7 - 18 mg/dL | [facility] | | | | | | [facility] | | | | | | MEDICAL | | | | | | CENTER - | | | | | | LABORATORY | | + + + + + + | Creatinine | 1.31 (H) | 0.60 - 1.30 | [facility] | | | | | mg/dL | [facility] | | | | | | MEDICAL | | | | | | CENTER - | | | | | | LABORATORY | | + + + + + + | eGFR if not | 52 (L)Comment: | >=60 | [facility] | | | | GLOMERULAR FILTRATION | mL/min/1.73m2 | [facility] | | | CHINESE | RATE,ESTIMATED | | MEDICAL | | | | mL/min/1.80t2Irdi than | | CENTER - | | [...] + | [facility] | [address] | [place] | [phone] | | [facility] | | [address] | | | - LABORATORY | | [...] + | [facility] | [address] | [place] | [phone] | | [facility] | | [address] | | | - LABORATORY | | [...] + | [facility] | [address] | [place] | [phone] | | [facility] | | [address] | | | - LABORATORY | | [...] [address] | [place] | [phone] | | [facility] | | [address] | | | - LABORATORY | | [...] + + | [facility] | [address] | [place] | [phone] | | [facility] | | [address] | | | - LABORATORY | | [...] [address] | [place] | [phone] | | [facility] | | [address] | | | - LABORATORY | | [...] + | [facility] | [address] | [place] | [phone] | | [facility] | | [address] | | | - LABORATORY | | [...] [address] | [place] | [phone] | | [facility] | | [address] | | | - LABORATORY | | [...] + | [facility] | [address] | [place] | [phone] | | [facility] | | [address] | | | - LABORATORY | | [...] [address] | [place] | [phone] | | [facility] | | [address] | | | - LABORATORY | | [...] + | [facility] | [address] | [place] | [phone] | | [facility] | | [address] | | | - LABORATORY | | [address] | [place] | [phone] | | [facility] | | [address] | | | - LABORATORY | | [...] | | GLOMERULAR FILTRATION | mL/min/1.73m2 | [facility] | | | CHINESE | RATE,ESTIMATED | | MEDICAL | | | | mL/min/1.03y7Dbcx than | | CENTER - | | [...] ST. | [address] | [place], [place] | [phone] | | [facility] | | [address] | | | - LABORATORY | | [...] | | Count | | | [facility] | | | | | | MEDICAL [...] [address] | [place] | [phone] | | [facility] | | [address] | | | - LABORATORY | | [...] + | [facility] | [address] | [place] | [phone] | | [facility] | | [address] | | | - LABORATORY | | [...] [address] | [place] | [phone] | | [facility] | | [address] | | | - LABORATORY | | [...] | | | | | | [facility] | | | | | | MEDICAL [...] + | [facility] | [address] | [place] | [phone] | | [facility] | | [address] | | | - LABORATORY | | [...] | mL/min/1.73m2 | [facility] | | | CHINESE | RATE,ESTIMATED | | MEDICAL | | | | mL/min/1.75d9Iyjn than | | CENTER - | | [...] ST. | [address] | [place] | [phone] | | [facility] | | [address] | | | - LABORATORY | | [...] [address] | [place] | [phone] | | [facility] | | [address] | | | - LABORATORY | | [...] [address] | [place] | [phone] | | [facility] | | [address] | | | - LABORATORY | | [...] - 1.030 | [facility] | | | [place], | | | [facility] | | [...] ST. | [address] | [place] | [phone] | | [facility] | | [address] | | | - LABORATORY | | [...] [address] | [place] | [phone] | | [facility] | | [address] | | | - LABORATORY | | [...] (H) | 7 - 18 mg/dL | [facility] | | | | | | [facility] | | | | | | MEDICAL | | | | | | CENTER - | | | | | | LABORATORY | | + + + + + + | Creatinine | 1.10 | 0.60 - 1.30 | [facility] | | | | | mg/dL | [facility] | | | | | | MEDICAL | | | | | | CENTER - | | | | | | LABORATORY | | + + + + + + | eGFR if not | >60Comment: GLOMERULAR | >=60 | [facility] | | | | FILTRATION | mL/min/1.73m2 | [facility] | | | CHINESE | RATE,ESTIMATED | | MEDICAL | | | | mL/min/1.65o5Twsa than | | CENTER - | | [...] + | [facility] | [address] | [place], [place] | [phone] | | [facility] | | [address] | | | - LABORATORY | | [...] | | | | | modification) on [facility] 01/10/17 at | | | | [...] | +---+---+ + +-------+ + +---+---+ | ifahwzfb-pxdktofcl-limlnvkcso | Given | 01/18/20 | 1 | [...] | | | | | modification) on [facility] 01/10/17 at | | | | [...] | | | | First dose on [place] 01/06/17 at | | PM PDT | [...] PDT | | | | | on [facility] 01/03/17 at 1800, For 1 | [...]
--- OUTSIDE RECORDS SUMMARY | ~2019-11-20 | XMS | Encounter Summary ---
Demographics + + + | Address | [address] | | | [place] [address] | + + + | Home Phone | | + + + | Preferred Language | Unknown | + + + | Marital Status | | + + + | Mandaen Affiliation | Unknown | + + + | Race | Unknown | + + + | Ethnic Group | Unknown | + + + Author + + + | Author | [facility] | | | and Eduardana | + + + | Organization | [facility] | [...] [place] | | | | | [address] | | + + + + + Care Team Providers + +------+ + | Care Scrap Iron Loader Name | Role | Phone | + [...] + + | 09/10/ | Preadmit | [facility] | Osmin Garber MD | | | 2019 | Visit | CENTER PREAD[facility] | [address] | | | | | CLINIC [address] | [place] [facility] | | | | | [place] | [place] [address] | | | | | [address] | [phone] | | | | | [phone] | | | +--------+ + + + [...] for the 09/10/19 encounter (Preadmit Visit) with [facility] ROOM 1 Medication Sig Instructions Ascorbic Acid [...] sent through Care Everywhere.Bypass Surgery, Peripheral Artery (Hebrew)documented in this encounter Plan of Treatment +--------+---------+ + + + | Date | Type | Specialty | Care Team | Description | +--------+---------+ + + + | 01/26/ | Office | Cardiology | Paolo Selby, | | | 2019 | Visit | | [address] | | | | | | [place] | | | | | | [address] | | | | | | | [...] + + + + | RBC | 4.26 | 4.20 - 5.70 | [...] | | | Absolute | performed at [facility];[address] | LABORATORY | | | | [address];[place], [place] | | | | | | [address] | | | | + + + + + + + + | Specimen | + + | Blood | + + + + + + + | Performing | Address | City/State/Zipcode | Phone Number | | Organization | | | | + + + + + | [facility] | [address] | [place] [address] | [phone] | + + + + + Type [...] + + + | BB BAND | [id number] | | [facility] | | | | | | LABORATORY | | + + + + + + | BB BAND | Testing performed at | | [facility] | | | | [facility];[address] | LABORATORY | | | | [address];[place] [address] | | | | + + + + + + + + | Specimen | + + | Blood | + + + + + + + | Performing | Address | City/State/Zipcode | Phone Number | | Organization | | | | + + + + + | [facility] | [address] | [place] [address] | [phone] | + + + + + MRSA NAAT (09/10/2019 3:53 PM PST) + + + + + + | Component | Value | Ref Range | Performed | Pathologist | | | | | At | Signature | + + + + + + | SOURCE: | NARES(NOSE) | | [facility] | | | | | | LABORATORY | | + + + + + + | Result | NEGATIVEComment: Testing | MRSNEG | [facility] | | | | performed at [facility];[address] | | LABORATORY | | | | [address];[place] | | | | | | [address] | | | | + + + [...] | [address] | [place] [address] | [phone] | + + + + + Basic [...] | 9.8 | 8.5 - 10.5 | [facility] | | | | | mg/dL | LABORATORY | | + + + + + + | Estimated | 59 (L)Comment: GFR <60: | >60 | [facility] | [...] | | | | | performed at [facility];[address];[place] | | | | | | [address] | | | | + + + + + + + + | Specimen | + + | Blood | + + + + + + + | Performing | Address | City/State/Zipcode | Phone Number | | Organization | | | | + + + + + | [facility] | [address] | [place] [address] | [phone] | + + + + + documented in this encounter Visit Diagnoses Not on filedocumented in this encounter
--- OUTSIDE RECORDS SUMMARY | ~2019-11-20 | XMS | Encounter Summary ---
Demographics + + + | Address | [address] | | | [place] [address] | + + + | Home Phone [...] | Organization | [facility] | | | and Eduardana [...] [place] | | | | | [address] | | + + + + + Care Team Providers + +------+ + | Care Shipping Clerk Name | Role | Phone | [...] Sanjuanita Garber | | | | | PAD | [...] | | | | IR Angiogram | [address] | | | | | | Lower | Phone: | | | | | | Extremity | [phone] | | | | | | Left | Fax: | | | | | | | [phone] | | +--------+--------+ + + + + Reason for Visit + + + | Reason | Comments | + + + | Follow-up | left foot abscess | + + + Evaluate & Treat (Urgent) +--------+--------+ + + + + | Status | Reason | Specialty | Diagnoses / | Referred By | Referred To | | | | | Procedures | Contact | Contact | +--------+--------+ + + + + | Closed | | Vascular | Diagnoses | Adal | Jcarlos, | | | | Surgery | PAD | Carlos Alberto | MD Osmin | | | | | (peripheral | MD Dylan | [address] | | | | | artery | [address] | | | | | disease) | [place] | [address] | | | | | (HCC) | [place], | [place], [place] | | | | | | [place] [address] | [address] Phone: | | | | | | Phone: | [phone] | | | | | | [phone] | Fax: | | | | | | Fax: | [phone] | | | | | | [phone] | | +--------+--------+ + + + + Encounter Details +--------+---------+ + + + | Date | Type | Department | Care Team | Description | +--------+---------+ + + + | 09/02/ | Office | [facility] | Osmin Garber MD | PAD (peripheral | | 2020 | Visit | VASCULAR SURGERY | [address] | artery disease) | | | | [address] | [address] | (HCC) (Primary Dx); | | | | E [place], [place] | [place] [address] | Bilateral carotid | | | | [address] | [phone] | artery stenosis | | | | [phone] | | | +--------+---------+ + + + [...] +---------+ + + | Blood Pressure | 119/67 | 09/02/2019 11:13 AM | | | | | PST | | + +---------+ + + | Pulse | 66 | 09/02/2019 11:13 AM | | | | | PST | | + +---------+ + + | Temperature | - | - | | + +---------+ + + | Respiratory Rate | - | - | | + +---------+ + + | Oxygen Saturation | - | - | | + [...] encounter Progress Notes Osmin Garber MD - 09/02/2019 11:15 AM PSTFormatting of this note might be different from t he original. [facility] [address] [place] [address] Office: [phone] DATE OF VISIT: 09/02/2019 PATIENT NAME: Deborah Thomason : 1930; AGE: 88 y.o.; Sex:M PHONE NUMBER: ; (Work); ; PHYSICIAN: Osmin Garber MD PRIMARY CARE / REFERRING PHYSICIAN: Carlos Alberto Galeas,* / Bob Davis D / [address] / [place] [address] / REASON FOR EVALUATION / CHIEF COMPLAINT: PAD HISTORY OF PRESENT ILLNESS: Mr Thomason is a pleasant 88 y.o. male, with a past medical history significant for atrial flu tter, coronary artery disease, previous CVA, and peripheral vascular disease, who is referre d to me for evaluation of bilateral carotid artery disease [...] and a right carotid endarterectomy done in [place] many years ago. Patient denies any recent illness, fever, chills, chest pain, or tuzncqpne-tr-spumzr. Patie nt denies any amaurosis or stroke/TIA [...] 07/27/2019: IMPRESSION: 1. Right JEREMY showed triphasic HEALTH SUPPORT SPECIALIST and monophasic DPA waveforms. 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 PVD (peripheral vascular disease) (HCC) 02/06/2018 Urinary retention Past Surgical History: Procedure Laterality Date CAROTID ENDARTERECTOMY Right CATARACT REMOVAL WITH IMPLANT Bilateral 03/30/10 and 04/27/10 CORONARY ANGIOPLASTY without stent [facility] Approx [id number] FEMUR FRACTURE SURGERY Right 12/19/2016 Procedure: ORIF IM RODDING FEMORAL ANTEGRADE; Surgeon: Lambert Mancuso MD; Location: [facility]IN OR FEMUR FRACTURE SURGERY Left 12/19/2016 [...] l umen on Q pain pump placement. [facility] - Dr. Delaney Right thigh biopsy 10/24/2011 [...] peripheral edema. Rate regular. ABD: non-tender SKIN: [place], dependent rubor on left. MUSCULOSKELETAL: ROM not [...] Vascular Surgery document ed in this encounter Plan of Treatment +--------+---------+ + + + | Date | Type | Specialty | Care Team | Description | +--------+---------+ + + + | 01/26/ | Office | Cardiology | Paolo Selby, | | | 2019 | Visit | | MD Marjan MARINELLI | | | | | | [place] [facility] [place] | | | | | | [id number] | | | | | | | | +--------+---------+ + + + documented as of this encounter Results IR Angiogram Lower Extremity Left (09/11/2019 11:36 AM PST) + + | Specimen | + + | | + + + + ---+ | Narrative | Performed A t | + + ---+ | [place] | [facility] | | Health & Services OPERATIVE [...] iliac artery. Using | | | a Compton a endarterectomy was performed of the common [...] | | | advanced and a 8 Israeli 23 cm Sheath was placed. A an [...] introduced a | | | 3 mm Saltese angioplasty balloon and dilated the common and [...] with a 10 mm | | | Saltese and the external iliac post dilated with an 8 mm Saltese. | | | Repeat contrast injection showed [...] signal in the profunda femoris, SFA, and ADOPTION SERVICES MANAGER. The left groin wound | | [...] signal in the profunda femoris, SFA, and ADOPTION SERVICES MANAGER. The left | | |groin wound was thoroughly irrigated. The incision was then closed in | | |layers first with a 2-0 Vicryl, then 3-0 Vicryl. [place] were used to | | |re-approximate the [...] infarction | + + documented in this encounter
--- OUTSIDE RECORDS SUMMARY | ~2019-11-20 | XMS | Encounter Summary ---
Demographics + + + | Address | [address] | | | [place] [address] | + + + | Home Phone | | + + + | Preferred Language | Unknown | + + + | Marital Status | | + + + | Gnosticism Affiliation | Unknown | + + + | Race | Unknown | + + + | Ethnic Group | Unknown | + + + Author + + + | Author | [facility] | | | and Eduardana | + + + | Organization | [facility] | | | and Eduardana [...] [place] | | | | | [address] | | + + + + + Care Team Providers + +------+ + | Care Ship Construction Teacher Name | Role | Phone | [...] | | (HCC) | [address] | [place], [place] | | | | | Essential | [place], [place] | [address] | | | | | hypertension | [address] | Phone: | | | | | PVD | Phone: | [phone] | | | | | (peripheral | [phone] | Fax: | | | | | vascular | Fax: | [phone] | | | | | disease) | [phone] | | | | | | ([facility]) | | | | | | | Bilateral | | | | | | | carotid | | | | | | | artery | | | | | | | stenosis | | | + + + + + + + Reason for Visit + + + | Reason | Comments | + + + | Follow-up | | + + + Encounter Details +--------+---------+ + + + | Date | Type | Department | Care Team | Description | +--------+---------+ + + + | 06/10/ | Office | [facility] | Paolo Carrillo, | Chronic atrial | | 2019 | Visit | CARDIOLOGY SERA | [address] | fibrillation (HCC) | | | | [address] | [place], [place] | (Primary Dx); | | | | [address] | [address] | Essential | | | | [place] | | hypertension; PVD | | | | [address] | | (peripheral vascular | | | | [phone] | | disease) (HCC); | | | | | | Bilateral carotid | | | | | | artery stenosis | +--------+---------+ + + + Social History [...] + + + | Blood Pressure | 98/52 | 06/10/2019 1:54 PM | | | | | PST | | + + + + + | Pulse | 62 | 06/10/2019 1:54 PM | | | | | PST | | + + + + + | Temperature | - | - | | + + + + + | Respiratory Rate | - | - | | + + + + + | Oxygen Saturation | - | - | | + + + + + | Inhaled Oxygen | - | - | | | Concentration | | | | + + + + + | Weight | 73 kg (160 lb 14.4 | 06/10/2019 1:54 PM | | | | oz) | PST | | + + + + + | Height | 172.7 cm (5' 8") | 06/10/2019 1:54 PM | | | | | PST | | + + + + + | Body Mass Index | 24.46 | 06/10/2019 1:54 PM | | | | | PST [...] documented as of this encounter Progress Notes Paolo Carrillo MD - 06/10/2019 1:30 PM PSTFormatting of this note might be different f rom the original. Date of visit: 06/10/2019 Primary Care Physician: Carlos Alberto Galeas MD CHIEF COMPLAINT: Chief Complaint Patient presents with Follow-up HISTORY OF PRESENT ILLNESS: Deborah is 88 y.o. here for follow up visit. History of chronic atrial fibrillation. Continues to be on rate control strategy with metoprolol and digoxin secondary to labile lo w blood pressure. No recent ER visits or hospitalization. Complaining of double vision and intermittent dizziness. Used to follow up with vascular surgery in [place]. Currently euvolemic denies any chest pain or shortness of breath, no lower extremity edema. Had one emergency room visit on October 04, 2018 secondary to shortness of breath. His BNP w as found to be elevated was diuresed and discharged home same day. Used to follow-up with cardiology at [facility]. History of chronic atrial fibrillation with a previous attempt of ablation 2007. Patient pathak s been in atrial fibrillation since. Had unfortunate fall in December 2016 he had bilateral femoral bone fracture. Limited activity level due to bilateral leg pain and back pain. Past medical history, SH, FH, and medications were reviewed in the chart. Medications: Outpatient Encounter Medications as of 06/10/2019 Medication Sig Dispense Refill Ascorbic Acid (VITAMIN C) 500 MG CAPS Take 1 capsule by mouth Daily. atorvaSTATin (LIPITOR) 20 mg tablet Take 20 [...] 25 mg by mouth 2 times daily. [DISCONTINUED] Misc Natural Products (PROSTATE THERAPY COMPLEX) CAPS Take by mouth 2 t imes daily. Multiple Vitamins-Minerals (CENTRUM SILVER) TABS Take 1 tablet by mouth Daily. tamsulosin (FLOMAX) 0.4 mg CAPS Take 2 capsules by mouth daily (after breakfast). (Alida ent taking differently: Take 0.4 mg by mouth daily (after breakfast).) 30 capsule 1 tocopherol (VITAMIN E) 400 units capsule vitamin E (dl, acetate) 400 unit capsule Take by oral route. [DISCONTINUED] triamcinolone (KENALOG) 0.1% cream warfarin (COUMADIN) 3 MG tablet Take 3 mg by mouth Daily. 3 mg on Saturday, , , Saturday. warfarin (COUMADIN) 5 mg tablet Take 5 mg by mouth Daily. 5 mg on Saturday, Saturday, Fr yasminey No facility-administered encounter medications on file as of 06/10/2019. Allergies Allergies Allergen Reactions Naproxen Other (See Comments) States "put me in the hospital with kidney failure" States "put me in the hospital with kidney failure" Penicillins Swelling, Rash and Hives Lips swell eyes swell shut and pruritis Acetaminophen Rash Lisinopril Other (See Comments) Olmesartan Other (See Comments) Prednisone Other (See Comments) "Knocks heart out of rhythm" REVIEW OF SYSTEMS: Constitutional: Positive for fatigue. Weight has been stable. HEENT: Patient hard of hearing. Eyes: Impaired and double vision. Respiratory: Negative for cough, sputum production, hemoptysis, wheezing. Cardiovascular: as HPI. Gastrointestinal: Negative for nausea, vomiting, diarrhea, abdominal pain and blood in stoo l. Genitourinary: Negative for dysuria or hematuria. Musculoskeletal: Chronic arthritic pain uses a cane to ambulate. Skin: Negative for rash. Neurological: Negative for dizziness. No numbness. No recent falls. No slurred speech. Hematological: No significant bruising. Psychiatric/Behavioral: No depression or anxiety. PHYSICAL EXAM Vital Signs: BP 98/52 | Pulse 62 | Ht 1.727 m (5' 8") | Wt 73 kg (160 lb 14.4 oz) | BMI 24.46 kg/m GENERAL APPEARANCE: Alert, oriented, cooperative, no distress, appears stated age. HEENT: Extraocular movements were intact. No jaundice. Pupiles round and reactive. NECK: No JVD, lymphadenopathy. Carotid upstrokes normal. No carotid bruit heard. CARDIAC: Irregularly irregular. CHEST: Normal bilateral symmetrical chest excursion.ackles or wheezing. No evidence of dull ness. ABDOMEN: Soft.No tenderness or guarding. No palpable organs. Active bowel sounds. EXTREMITIES: Trace lower extremity edema more on the right side. NEURO: Alert and oriented times three with no focal deficit. Cranial nerves are grossly no rmal. SKIN: Warm and dry. No rash. Psych: Normal affect and mood. DATA Lab Results Component Value Date/Time NA 137 12/25/2018 09:02 AM NA 138 02/18/2018 07:43 AM NA 131 (L) 01/17/2017 06:36 AM K 4.0 12/25/2018 09:02 AM K 3.9 02/18/2018 07:43 AM K 3.7 01/17/2017 06:36 AM CO2 32 (H) 12/25/2018 09:02 AM CO2 29 02/18/2018 07:43 AM CO2 25 01/17/2017 06:36 AM BUN 19 12/25/2018 09:02 AM BUN 26 (H) 02/18/2018 07:43 AM BUN 23 (H) 01/17/2017 06:36 AM CREA 1.21 12/25/2018 09:02 AM CREA 1.22 02/18/2018 07:43 AM CREA 1.20 01/17/2017 06:36 AM CALCIUM 10.0 12/25/2018 09:02 AM CALCIUM 9.5 02/18/2018 07:43 AM CALCIUM 8.8 01/17/2017 06:36 AM MG 1.5 (L) 12/29/2016 03:44 AM MG 1.6 (L) 12/28/2016 03:30 AM MG 1.8 12/19/2016 06:18 AM Lab Results Component Value Date/Time WBC 8.5 01/16/2017 09:34 AM WBC 5.4 01/10/2017 06:35 AM WBC 6.8 01/04/2017 06:38 AM HGB 11.1 (L) 01/16/2017 09:34 AM HGB 11.5 (L) 01/10/2017 06:35 AM HGB 10.3 (L) 01/04/2017 06:38 AM HCT 33.5 (L) 01/16/2017 09:34 AM HCT 34.1 (L) 01/10/2017 06:35 AM HCT 32.2 (L) 01/04/2017 06:38 AM MCV 88.8 01/16/2017 09:34 AM MCV 88.7 01/10/2017 06:35 AM MCV 89.2 01/04/2017 06:38 AM Lab Results Component Value Date ALT 49 (H) 01/01/2017 ALT 55 (H) 12/31/2016 EK06/10/2019 Ordered and reviewed myself showed atrial fibrillation with controlled ventricular rate. 01/27/2017 [facility] showed atrial fibrillation with fairly controlled ventricular response heart rate 101 Last Echo: 12/26/2016 From [facility] Normal LV size and systolic function EF 60%. Mild left ventricular h ypertrophy. Dilated aortic root 4.6 cm. Mild dilated left atrium. No pulmonary hypertension. Last stress test: 2010 From [facility] Normal perfusion. Last cath: Carotid US: AAA screening: Lower extremity US: OTHERS: ASSESSMENT & PLAN Patient is 88 y.o. male with the following medical problems. 1. Chronic atrial fibrillation on rate control strategy and anticoagulation. CHADSVASc of 4 -5. 2. Chronic anticoagulation with warfarin. 3. Chronic heart failure with preserved systolic function. Currently euvolemic. 4. History peripheral vascular disease in the right lower and upper extremities. 5. Bilateral carotid disease previous right carotid endarterectomy, severe left carotid dis ease. 6. Hypertension currently blood pressures fairly controlled. 7. Chronic kidney disease stage III. Recommendations: Patient is currently stable from cardiac stand of point his heart rate has been controlled with digoxin and low-dose metoprolol. Blood pressure is fairly controlled at home. Will continue on metoprolol 25 mg twice daily and digoxin. Continue with furosemide 20 mg p.o. daily can increase to 40 needed with weight gain or lisa rtness of breath. Patient will be referred for vascular surgery evaluation with Dr. Peterson. Continue with anticoagulation. Patient can follow-up in 6 months or earlier if needed. Patient will call with any change in status. *This report has been prepared using a voice recognition system. The report was reviewed fo r accuracy, however, sound-alike word errors, addition and/or deletions may occur. If there is any question about this report please contact me. Paolo Carrillo MD, MPH documented in this encounter Plan of Treatment +--------+---------+ + + + | Date | Type | Specialty | Care Team | Description | +--------+---------+ + + + | 01/26/ | Office | Cardiology | Paolo Carrillo, | | | 2019 | Visit | | MD Marjan MARINELLI | | | | | | [place] | | | | | | [address] | | | | | | | | +--------+---------+ + + + + + +--------+ + + | Name | Type | Priori | Associated Diagnoses | Order Schedule | | | | ty | | | + + +--------+ + + | Ambulatory Referral | Outpatient | Routin | Chronic atrial | Ordered: 06/10/2019 | | to [facility] | Referral | e | fibrillation ([facility]) | | | Surgery- JOSE | | | Essential | | | | | | hypertension PVD | | | | | | (peripheral vascular | | | | | | disease) ([facility]) | | | | | | Bilateral carotid | | | | | | artery stenosis | | + + +--------+ + + documented as of this encounter Procedures + +--------+ + + + | Procedure Name | Priori | Date/Time | Associated Diagnosis | Comments | | | ty | | | | + +--------+ + + + | ECG 12 LEAD | Routin | 06/10/2019 | Chronic atrial | Results for this | | | e | 2:01 PM | fibrillation (HCC) | procedure are in the | | | | PST | | results section. | + +--------+ + + + documented in this encounter Results ECG 12 lead (06/10/2019 2:01 PM PST) + + + + + + | Component | Value | Ref Range | Performed | Pathologist | | | | | At | Signature | + + + + + + | VENTRICULAR | 78 | BPM | [facility] | | | RATE EKG | | | | | + + + + + + | ATRIAL RATE | 107 | BPM | [facility] | | + + + + + + | QRS | 82 | ms | [facility] | | | DURATION | | | | | + + + + + + | Q-T | 372 | ms | [facility] | | | INTERVAL | | | | | + + + + + + | Q-T | 424 | ms | [facility] | | | INTERVAL | | | | | | (CORRECTED) | | | | | + + + + + + | QRS AXIS | -5 | degrees | [facility] | | + + + + + + | T AXIS | 26 | degrees | [facility] | | + + + + + + | INTERPRETAT | Atrial | | [facility] | | | ION TEXT | fibrillationPossible | | | | | | Anterior infarct , age | | | | | | undeterminedAbnormal | | | | | | ECGNo previous ECGs | | | | | | availablePlease refer to | | | | | | Providers office visit | | | | | | note for Providers | | | | | | Interpretation.Confirmed | | | | | | by [facility] Read Only, | | | | | | [facility]ana ([id number]), | | | | | | movie editor Maximiliano Yee | | | | | | ([phone]) on 06/10/2019 | | | | | | 2:24:36 PM | | | | + + [...] + | Diagnosis | + + | Chronic atrial fibrillation (HCC) - Primary Atrial fibrillation | + + | Essential hypertension Unspecified essential hypertension | + + | PVD (peripheral vascular disease) (HCC) Peripheral vascular disease, unspecified | + + | Bilateral carotid artery stenosis Occlusion and stenosis of multiple and bilateral | | precerebral arteries without mention of cerebral infarction | + + documented in this encounter
--- OUTSIDE RECORDS SUMMARY | ~2019-11-20 | XMS | Encounter Summary ---
Demographics + + + | Address | [address] | | | [place] [address] | + + + | Home Phone [...] + + + | Organization | and [facility] | | | and Eduardana [...] [place] | | | | | [address] | | + + + + + Care Team Providers + +------+ + | Care Mother Superior Name | Role | Phone | + [...] | | | | VAS Carotid | [id number] | | | | | | Duplex | Phone: | | | | | | Bilateral | [phone] | | | | | | | Fax: | | | | | | | [phone] | | +--------+--------+ + + + + Encounter Details +--------+ + + + + | Date | Type | Department | Care Team | Description | +--------+ + + + + | 07/02/ | Orders Only | [facility] | Peggy Cason, DNP | Carotid stenosis, | | 2018 | | VASCULAR SURGERY | [address] | bilateral (Primary | | | | [address] [place] | [place] | Dx) | | | | [place] | [address] | | | | | [address] | | | | | | [phone] | | | +--------+ + + + [...] | | | | | [place], [place] | | | | | | [address] | | | | | | | [...]
--- OUTSIDE RECORDS SUMMARY | ~2019-11-20 | XMS | Encounter Summary ---
Demographics + + + | Address | [address] | | | [place] [address] | + + + | Home Phone | | + + + | Preferred Language | Unknown | + + + | Marital Status | | + + + | Christian Affiliation | Unknown | + + + | Race | Unknown | + + + | Ethnic Group | Unknown | + + + Author + + + | Author | [facility] | | | and Eduardana | + + + | Organization | [facility] | | [...] [place] | | | | | [address] | | + + + + + Care Team Providers + +------+ + | Care Feature Writer Name | Role | Phone | + +------+ + | Carlos Alberto Galeas MD | PCP | | + +------+ + Reason for Visit + + + | Reason | Comments | + + + | Follow-up | needs imaging prior to follow up | + + + Encounter Details +--------+ + + + + | Date | Type | Department | Care Team | Description | +--------+ + + + + | 12/22/ | Telephone | [facility] | Michael Alston | Follow-up (needs | | 2019 | | SURGERY [address] | MD Dante, FACS [address] | imaging prior to | | | | [place], [place] | [facility] | follow up) | | | | [address] | [place] [address] | | | | | [phone] | [phone] | | | | | | | [...] [place] | | | | | | [address] | | | | | | | | +--------+---------+ + + + documented as of this encounter Visit Diagnoses Not on filedocumented in this encounter"
--- OUTSIDE RECORDS SUMMARY | ~2019-11-20 | XMS | Encounter Summary ---
Demographics + + + | Address | [address] | | | [place] [address] | + + + | Home Phone | | + + + | Preferred Language | Unknown | + + + | Marital Status | | + + + | Mormonism Affiliation | Unknown | + + + | Race | Unknown | + + + | Ethnic Group | Unknown | + + + Author + + + | Author | [facility] | | | and Eduardana | + + + | Organization | [facility] | | | and Eduardana | [...] [place] | | | | | [address] | | + + + + + Care Team Providers + +------+ + | Care Special Education Aide Name | Role | Phone | + [...] | steal | MD, FACS | [address] | | | | | syndrome | [address] | [place], | | | | | 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[place] | [place] [address] | | | | | carotid | [place], [place] | Phone: | | | | | artery, | [address] | [phone] | | | | | unspecified | Phone: | Fax: | | | | | laterality | [phone] | [phone] | | | | | Peripheral | Fax: | | | | | | arterial | [phone] | | | | | | disease | | | | | | | (HCC) | | | | | | | Procedures | | | | | | | AK IV | | | | | | | INFUSION, | | | | | | | HYDRATION, | | | | | | | 31-60 MIN | | | | | | | AK IV | | | | | | | INFUSION, | | | | | | | HYDRATION, | | | | | | | EA ADD HOUR | | | | | | | AK NORMAL | | | | | | [...] + | 02/18/ | Hospital | [facility] | Michael Alston | Subclavian steal | | 2018 | Encounter | MED CTR OP INFUSION | MD Dante, FACS [address] | syndrome; Decreased | | | | [address] | [address] [place] | GFR; PVD (peripheral | | | | [place], [place] | [place] [address] | vascular disease) | | | | [address] | [phone] | (HCC) | | | | [phone] | | | +--------+ + + + [...] + + + +---------+ + + | [place]-3 Fatty | Take 1 g by mouth. [...] as of this encounter Progress Notes Brittany Cueto RN - 02/18/2018 3:39 PM PDT Vitals: [...] | | 2019 | Visit | | Marjan MARINELLI | | | | | | [place] [place], [place] | | | | | | [address] | | | | | | | [...]
--- OUTSIDE RECORDS SUMMARY | ~2019-11-20 | XMS | Encounter Summary ---
Demographics + + + | Address | [address] | | | [place] [address] | + + + | Home Phone | | + + + | Preferred Language | Unknown | + + + | Marital Status | | + + + | Rastafari Affiliation | Unknown | + + + | Race | Unknown | + + + | Ethnic Group | Unknown | + + + Author + + + | Author | [facility] | | | and Eduardana | + + + | Organization | [facility] | | | and Eduardana [...] [place] | | | | | [address] | | + + + + + Care Team Providers + +------+ + | Care Laborer [place] Name | Role | Phone | + [...] | | (HCC) | [address] | [place], [place] | | | | | Essential | [place] | [address] | | | | | hypertension | [address] | Phone: | | | | | PVD | Phone: | [phone] | | | | | (peripheral | [phone] | Fax: | | | | | vascular | Fax: | [phone] | | | | | disease) | [phone] | | | | | | ([facility]) | | | | | | [...] + + | 06/10/ | Office | [facility] | Paolo Carrillo, | Chronic atrial | | 2019 | Visit | CARDIOLOGY SERA | [address] | fibrillation (HCC) | | | | [address] | [place], [place] | (Primary Dx); | | | | [address] | [address] | Essential | | | | [place] | | hypertension; PVD | | | | [address] | | (peripheral vascular | | | | [phone] | | disease) (HCC); | | | [...] to follow up with vascular surgery in [place]. Currently euvolemic denies any chest pain or shortness of breath, no lower extremity edema. Had one emergency room visit on October 04, 2018 secondary to shortness of breath. His BNP w as found to be elevated was diuresed and discharged home same day. Used to follow-up with cardiology at [facility]. History of chronic atrial fibrillation with a [...] atrial fibrillation with controlled ventricular rate. 01/27/2017 [facility] showed atrial fibrillation with fairly controlled ventricular response heart rate 101 Last Echo: 12/26/2016 From [facility] Normal LV size and systolic function EF 60%. Mild left ventricular h ypertrophy. Dilated aortic root 4.6 cm. Mild dilated left atrium. No pulmonary hypertension. Last stress test: 2010 From [facility] Normal perfusion. Last cath: Carotid US: AAA [...] | | | | | [place] | | | | | | [address] | | | | | | | | +--------+---------+ + + + + + +--------+ + + | Name | Type | Priori | Associated Diagnoses | Order Schedule | | | | ty | | | + + +--------+ + + | Ambulatory Referral | Outpatient | Routin | Chronic atrial | Ordered: 06/10/2019 | | to [facility] | Referral | e | fibrillation ([facility]) | | | Surgery- JOSE | | | Essential | | | | | | hypertension PVD | | | | | | (peripheral vascular | | | | | | disease) ([facility]) | | | | | | Bilateral [...] | | | | | by [facility] [place] Read Only, | | | | | | [facility] Briana ([id number]), | | | | | | editorial manager Maximiliano Yee | | | | | [...]
--- OUTSIDE RECORDS SUMMARY | ~2019-11-20 | XMS | Encounter Summary ---
Demographics + + + | Address | [address] | | | [place] [address] | + + + | Home Phone | | + + + | Preferred Language | Unknown | + + + | Marital Status | | + + + | Jewish Affiliation | Unknown | + + + | Race | Unknown | + + + | Ethnic Group | Unknown | + + + Author + + + | Author | [facility] | | | and Eduardana | + + + | Organization | [facility] | | | and [...] [place] | | | | | [id number] | | + + + + + Care Team Providers + +------+ + | Care Refuse Laborer Name | Role | Phone | + [...] | +--------+ + + + + | 12/18/ | Hospital | [facility] | Anisha Ku MD | Atrial flutter, | | 2017 - | Encounter | [facility] | [address] | unspecified type | | | | [address] [place] | [place] | (HCC); Anticoagulant | | 12/31/ | | [place] [id number] | [id number] | long-term use; | | 2017 | | [phone] | | Closed fracture of | | | | | Gamal Serrano MD | neck of left femur, | | | | | [address] | initial encounter | | | | | [place], [place] | ([facility]); Acute | | | | | [address] | diastolic heart | | | | | | failure ([facility]); Acute | | | | | Lambert Mancuso MD | respiratory failure | | | | | [address] | with hypoxia ([facility]); | | | | | [place], [place] | Atrial flutter with | | | | | [address] | rapid ventricular | | | | | [phone] | response ([facility]); | | | | | | Delirium; Elevated | | | | | Radha Hoyt MD | INR; Closed fracture | | | | | [address] | of neck of right | | | | | [place], [place] | femur, initial | | | | | [address] | encounter ([facility]); | | | | | | Postoperative | | | | | | hemorrhagic shock, | | | | | | initial encounter | +--------+ + + + + Social [...] 3:38 PM PDT DISCHARGE SUMMARY Patient Name: Deborah Thomason : 1930 Date of Admission: 12/18/2016 [...] (COLACE) capsule 100 mg 2 TIMES DAILY DC N LAW BRUSH Signed and Held Signed [...] signed by: Radha Hoyt MD, 12/31/2016 15:39 [facility] documented in this enc ounter Medications at [...] Hawthorne MD - 12/20 11:40 AM PDT [facility] HOSPITALIST PROGRESS NOTE Patient: Deborah Thomason : 1930: Age: 86 y.o. MedRec: [id number] PCP: Carlos Alberto Galeas MD Admission date: [...] Serrano MD 20 mg at 0 12/29/16 205 docusate sodium (COLACE) capsule 100 mg 100 [...] -s/p IV vitamin K #7 Delirium with owning: -Improved -Likely secondary to acute illness and prolonged ICU stay -Frequent reorientation *Anticipate discharge to inpatient rehab versus detention facility tomorrow. DVT Prophylaxis SCD's while in bed Code Status DNR/DNI. Total time of approximately 35 minutes was spent with the patient and/or patient's family, and/or on the patient's floor/unit, of which more than 50% was spent counseling and/or coord ination the patient's care as outlined above. Radha Hoyt 12/30/2016 11:41 [facility] Radha Hawthorne MD - 12/29/2016 4:14 PM PDTFormatting of this note might be di fferent from the original. [facility] HOSPITALIST PROGRESS NOTE Patient: Deborah Thomason : 1930: Age: 86 y.o. MedRec: [id number] PCP: Carlos Alberto Galeas MD Admission date: [...] lactated ringers (LR) infusion Intravenous Continuous Valente G MD Alexander metoprolol tartrate (LOPRESSOR) tablet 50 mg 50 [...] g 17 g Oral Daily PRN Gamal eSrrano MD 17 g at 12/24/16 0750 senna (SENOKOT) tablet 8.6 mg 8.6 mg Oral BID PRN Gamal Serrano MD 8.6 mg at 12/254 simethicone (MYLICON) chewable tablet 80 mg 80 [...] as outlined above. Radha Hoyt 12/29/2016 16:14 [facility] aleria Sims RN - 12/28/2016 6:20 PM PDTL1: S/P [...] might be different from t he original. [facility] HOSPITALIST PROGRESS NOTE Patient: Deborah Thomason : 1930: Age: 86 y.o. MedRec: [id number] PCP: Carlos Alberto Galeas MD Admission date: [...] Crossmatch Result Value Ref Range Product Code Q6884H45 UNIT # [id number] UNIT ABO O UNIT RH POS CROSSMATCH INTERP Compatible Unit Status Returned Blood Product ABOR OP Blood Product Expiration Date and Time Product Blood Type Barcode 5100 Product Code B5868F08 UNIT # [id number] UNIT ABO O UNIT RH POS CROSSMATCH [...] as outlined above. Radha Hoyt 12/28/2016 15:06 [facility] Radha Hawthorne MD - 12/27/2016 4:44 PM PDTFormatting of this note might be di fferent from the original. [facility] HOSPITALIST PROGRESS NOTE Patient: Deborah Thomason : 1930: Age: 86 y.o. MedRec: [id number] PCP: Carlos Alberto Galeas MD Admission date: [...] are maintained. Iliofemoral vascular calcification is present. [place] lat eral to the hip and [...] PRN Gamal Serrano MD 8.6 mg at 12/254 simethicone (MYLICON) chewable tablet 80 mg 80 [...] as outlined above. Radha Hoyt 12/27/2016 16:44 [facility] Elsa Rodriguez PA-C - 12/27/2016 11:09 AM [...] PROTOCOL: CURRENTLY HOLDING WARFARIN (High INR) Subjective/Objective: Deborah Thomason is a 86 y.o. male admitted on 12/18/2016 for orthopedic surgery secondar y to femoral fracture. 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 Patient is [...] of 1.01). 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 Warfarin education received No; SECURED ENTRANCE MONITOR Will monitor daily Warfarin Dosing Nomogram Warfarin Dosing Expectations Per P&T-approved Electronically signed by: Ora Aranda RPH 12/27/2016 6:49 Radha Hawthorne MD - 12/26/2016 1:46 PM PDT [facility] HOSPITALIST PROGRESS NOTE Patient: Deborah Thomason : 1930: Age: 86 y.o. MedRec: [id number] PCP: Carlos Alberto Galeas MD Admission date: [...] Plasma Result Value Ref Range Product Code K9725X39 UNIT # [id number] UNIT ABO O UNIT RH POS Unit Status Transfused Blood Product ABOR OPOS Blood Product Expiration Date and Time Product Blood Type Barcode 5100 Product Code L7578Z76 UNIT # [id number] UNIT ABO O UNIT RH POS Unit Status Transfused Blood Product ABOR OPOS Blood Product Expiration Date and Time [id number] Product Blood Type Barcode 5100 Occult Blood, [...] as outlined above. Radha Hoyt 12/26/2016 13:46 [facility] Joao Gaviria, PharmD - 12/26/2016 12:06 PM PDTFormatting of this note might b e different from the original. WARFARIN PER PHARMACY PROTOCOL: CURRENTLY HOLDING WARFARIN (High INR) Subjective/Objective: Deborah Thomason is a 86 y.o. male admitted on 12/18/2016 for orthopedic surgery secondar y to femoral fracture. 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 Patient is [...] Cr of 1.01). Date 12/19 12/20 12/21 6 6 612/25 Hgb 10.9 8.7 9.1 [...] Hct in am. Warfarin education received No; SECURED ENTRANCE MONITOR Will monitor daily Warfarin Dosing Nomogram Warfarin Dosing Expectations Per P&T-approved Electronically signed by: Joao Holcomb PharmD 12/26/2016 12:06 Idania Howard BLOW DOWN OPERATOR - 12/26/2016 7:30 AM PDTVern declined the incentive deep breathing exercises this morning. I informed him that his left lung base is diminished with crackles, which means he needs to do it, clinically he needs to do it. Radha Hawthorne MD - 12/25/2016 4:55 PM PDTFormatting of th is note might be different from the original. [facility] HOSPITALIST PROGRESS NOTE Patient: Deborah Thomason : 1930: Age: 86 y.o. MedRec: [id number] PCP: Carlos Alberto Galeas MD Admission date: [...] Crossmatch Result Value Ref Range Product Code I2084F11 UNIT # [id number] UNIT ABO O UNIT RH POS CROSSMATCH INTERP Compatible Unit Status Crossmatched Blood Product ABOR OP Blood Product Expiration Date and Time Product Blood Type Barcode 5100 Product Code W0187W40 UNIT # [id number] UNIT ABO O UNIT RH POS CROSSMATCH INTERP Compatible Unit Status Transfused Blood Product [facility] OPOS Blood Product Expiration Date and Time Product Blood Type Barcode 5100 Red Blood Cells (PRBC) - Crossmatch Result Value Ref Range Product Code W5187K48 UNIT # [id number] UNIT ABO O UNIT RH NEG CROSSMATCH [...] Plasma Result Value Ref Range Product Code L4309M25 UNIT # [id number] UNIT ABO O UNIT RH POS Unit Status Issued Blood Product [facility] OP Blood Product Expiration Date and Time Product Blood Type Barcode 5100 Product Code S9998J14 UNIT # [id number] UNIT ABO O UNIT RH POS Unit Status Issued Blood Product ABOR OP Blood Product Expiration Date and Time [id number] Product Blood Type Barcode 5100 Xr Chest [...] Gamal Serrano MD 8.6 mg at 12/23 2741 ASSESSMENT and PLAN: Active Hospital Problems Diagnosis [...] as outlined above. Radha Hoyt 12/25/2016 16:56 [facility] Lambert Smith MD - 0 12/25/2016 10:32 [...] - - Bladder - - - - 06/05/17 1124 - - - 113 18 96 % - Recent Results (from the past 24 hour(s)) Hemoglobin and Hematocrit Result Value Ref Range Hgb 9.3 (L) 13.5 - 18.0 g/dL Hct 28.3 (L) 40.0 - 51.0 % Red Blood Cells (PRBC) - Crossmatch Result Value Ref Range Product Code A6608S83 UNIT # [id number] UNIT ABO O UNIT RH POS CROSSMATCH INTERP Compatible Unit Status Crossmatched Blood Product [facility] OP Blood Product Expiration Date and Time Product Blood Type Barcode 5100 Product Code W0918J61 UNIT # [id number] UNIT ABO O UNIT RH POS CROSSMATCH INTERP Compatible Unit Status Transfused Blood Product [facility] OPOS Blood Product Expiration Date and Time Product Blood Type Barcode 5100 Red Blood Cells (PRBC) - Crossmatch Result Value Ref Range Product Code O9266V45 UNIT # [id number] UNIT ABO O UNIT RH NEG CROSSMATCH INTERP Compatible Unit Status Transfused Blood Product [facility] ONEG Blood Product Expiration Date and Time [...] PROTOCOL: CURRENTLY HOLDING WARFARIN (High INR) Subjective/Objective: Deborah Thomason is a 86 y.o. male admitted on 12/18/2016 for orthopedic surgery secondar y to femoral fracture. 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 Patient is receiving warfarin for thromboprophyla xis postop and also for atrial flutter. Surgery date: 12/19/[address] Mancuso Goal INR: 2-3 Enoxaparin bridge: disch Inr>2 none Drug Interactions:Amiodarone Sensitizers:Age Recent Labs Lab 12/25/16 0355 12/24/16202912/24/1635012/23/16 0435 12/23/16 0434 CREA 0.98 -- 1.01 [...] it to MWF. Warfarin education received No; SECURED ENTRANCE MONITOR Will monitor daily Warfarin Dosing Nomogram Warfarin Dosing Expectations Per P&T-approved Electronically signed by: Joao Holcomb, PharmD 12/25/2016 8:19 ADDENDUM: Dr. Hendrix has ordered 2 units of FFP. He would prefer that the patient be on the lower end of the 2-3 range for INR. Jennifer, Elsa Fletcher PA-C - 12/24/2016 11:27 AM PDT Subjective: [...] PH UA 5.0 5.0 - 8.0 Specific [place] 1.016 1.001 - 1.030 PROTEIN UA 30 mg/dL (A) Negative BLOOD UA Small (A) Negative GLUCOSE UA Negative Negative KETONES UA Negative Negative BILIRUBIN UA Negative Negative NITRITE UA Negative Negative LEUKOCYTES ESTERASE UA Negative Negative UROBILINOGEN UA Negative 0.2 mg/dL, 1.0 mg/dL, Negative Red Blood Cells (PRBC) - Crossmatch Result Value Ref Range Product Code A9698R59 UNIT # [id number] UNIT ABO O UNIT RH POS CROSSMATCH INTERP Compatible Unit Status Crossmatched Blood Product ABORh OPOS Blood Product Expiration Date and Time Product Blood Type Barcode 5100 Product Code Z5231Q82 UNIT # [id number] UNIT ABO O UNIT RH POS CROSSMATCH INTERP Compatible Unit Status Issued Blood Product [facility]ORh OPOS Blood Product Expiration Date and Time Product Blood Type Barcode 5100 Red Blood Cells (PRBC) - Crossmatch Result Value Ref Range Product Code P4132C41 UNIT # [id number] UNIT ABO O UNIT RH NEG CROSSMATCH INTERP Compatible Unit Status Crossmatched Blood Product [facility]ORh ONEG Blood Product Expiration Date and Time [...] team. Elsa Arzola PA-C DATE/TIME: 12/24/2016 11:27 [place]-Sury Peña RN - 12/24/2016 10:12 AM PDTThis note [...] extension rows Changed rate to 100 per Patshanthi orders infuse over 3 hours Aileen, MD Angel - 12/24/2016 9:52 AM PDTFor matting of this note might be different from the original. [facility] HOSPITALIST PROGRESS NOTE Patient: Deborah Thomason : 1930: Age: 86 y.o. MedRec: [id number] PCP: Carlos Alberto Galeas MD Admission date: [...] Crossmatch Result Value Ref Range Product Code W4762X07 UNIT # [id number] UNIT ABO O UNIT RH POS CROSSMATCH INTERP Compatible Unit Status Crossmatched Blood Product ABORh OPOS Blood Product Expiration Date and Time Product Blood Type Barcode 5100 Product Code E9348N75 UNIT # [id number] UNIT ABO O UNIT RH POS CROSSMATCH [...] spoke with Dr. Mancuso from ortho standpoint- lencho alvarez from surgery. Give 2 units PRBC this [...] as outlined above. Angel Hendrix 12/24/2016 9:52 [facility] Ora Medina, PharmD - 12/24/2016 6:57 AM PDT WARFARIN PER PHARMACY PROTOCOL: Subjective/Objective: Deborah Thomason is a 86 y.o. male admitted on 12/18/2016 for orthopedic surgery secondar y to femoral fracture. 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 Patient is [...] it to MWF. Warfarin education received No; SECURED ENTRANCE MONITOR Will monitor daily Warfarin Dosing Nomogram Warfarin [...] F) - 124 18 93 % - 12/23/1645 99/65 37.3 C (99.1 F) - 120 17 97 % - 12/23/1630 (!) 88/58 37.3 C (99.1 F) - [...] - 104 21 94 % - 12/22/16 2115 95/56 37.9 C (100.2 F) - 110 18 95 % - 12/22/16 2100 96/54 37.9 C (100.2 F) - 99 15 96 % - 12/22/165 109/65 (!) 38 C (100.4 F) - 112 21 91 % - 12/22/16 2030 90/59 (!) 38 C (100.4 F) - 114 16 93 % - 12/22/162019 - - - 116 14 96 % - 12/22/162014 107/80 (!) 38.1 C (100.6 F) - 107 17 91 % - 12/22/161999 108/60 (!) 38.1 C (100.6 F) - 96 17 93 % - 12/22/16 194 95/61 (!) 38.1 C (100.6 F) - 110 17 95 % - 12/22/16 193 (!) 78/52 (!) 38.1 C (100.6 F) - 106 19 93 % - 12/22/16 191 (!) 88/61 (!) 38.1 C (100.6 F) - 108 17 (!) 88 % - 12/22/16 185 (!) 88/56 (!) 38.1 C (100.6 F) - 118 22 92 % - 12/22/16 184 (!) 84/59 (!) 38.1 C (100.6 F) - 112 21 (!) 81 % - 12/22/16 183 (!) 87/60 (!) 38.1 C (100.6 F) [...] Crossmatch Result Value Ref Range Product Code T4306Q04 UNIT # [id number] UNIT ABO O UNIT RH POS CROSSMATCH INTERP Compatible Unit Status Transfused Blood Product ABOR OPOS Blood Product Expiration Date and Time Product Blood Type Barcode 5100 Product Code Q5283L03 UNIT # [id number] UNIT ABO O UNIT RH POS CROSSMATCH [...] follow. Lambert Mancuso MD DATE/TIME: 12/23/2016 18:17 atel, MD Angel - 0 12/23/2016 9:04 AM PDT [facility] HOSPITALIST PROGRESS NOTE Patient: Deborah Thomason : 1930: Age: 86 y.o. MedRec: [id number] PCP: Carlos Alberto Galeas MD Admission date: [...] Crossmatch Result Value Ref Range Product Code X7089I82 UNIT # [id number] UNIT ABO O UNIT RH POS CROSSMATCH INTERP Compatible Unit Status Transfused Blood Product ABOR OPOS Blood Product Expiration Date and Time [id number] Product Blood Type Barcode 5100 Product Code J8981D32 UNIT # [id number] UNIT ABO O UNIT RH POS CROSSMATCH INTERP Compatible Unit Status Transfused Blood Product [facility] OPOS Blood Product Expiration Date and Time [id number] Product Blood Type Barcode 5100 Basic Metabolic [...] as outlined above. Angel Hendrix 12/23/2016 9:04 [facility] Salena Howard , BLOW DOWN OPERATOR - 12/23/2016 7:45 AM PDTVern's BS are clear of wheezes or rhonchi, dim in bases, stil l wearing O2 @ 2 lpm. SpO2 91 to 94%. Tolerates TX's well. PEP therapy helps with secretion removal. Barbara Rowley, PharmD - 12/23/2016 7:12 AM PDTFormatting of this note might be different from the orig inal. ADDENDUM: warfarin being held today for possible bleed. Barbara Lee, Prasanna 12/23/2016 14:00 WARFARIN PER PHARMACY PROTOCOL: Subjective/Objective: Deborah Thomason is a 86 y.o. male admitted on 12/18/2016 for orthopedic surgery secondar y to femoral fracture. 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 Patient is receiving warfarin for thromboprophyla xis postop and also for atrial flutter. Surgery date: 12/19/2016 [x]Fx []THR []TKR Dr. Mancuso Goal INR: 2-3 Enoxaparin bridge: []disch [x]Inr>2 []none Drug Interactions:Amiodarone Sensitizers:Age Recent Labs Lab 12/23/16 0435 12/23/1643312/22/16201312/22/1634012/22/1633912/21/16344 HGB 7.7* -- 7.6* -- 7.8* 9.1* HCT 23.1* -- 23.1* -- 23.4* 26.7* PLT 195 -- 194 -- 160 144 CREA -- 1.25 -- 1.12 -- 1.16 INR 2.18* -- -- -- 2.07* 1.82* Date 12/19 12/20 12/21 12/22 12/23 Hgb 10.9 8.7 9.1 7.8 7.7 Hct [...] it to MWF. Warfarin education received No; SECURED ENTRANCE MONITOR Will monitor daily Warfarin Dosing Nomogram Warfarin [...] Crossmatch Result Value Ref Range Product Code R4868G79 UNIT # [id number] UNIT ABO O UNIT RH POS CROSSMATCH INTERP Compatible Unit Status Transfused Blood Product ABORh OPOS Blood Product Expiration Date and Time [id number] Product Blood Type Barcode 5100 Product Code I6872I47 UNIT # [id number] UNIT ABO O UNIT RH POS CROSSMATCH INTERP Compatible Unit Status Issued Blood Product [facility] Blood Product Expiration Date and Time [id number] Product Blood Type Barcode 5100 Bilateral lower [...] placement. Elsa Arzola PA-C DATE/TIME: 12/22/2016 13:56 Samueltel, Jayden amin MD - 12/22/2016 9:39 AM PDT [facility] HOSPITALIST PROGRESS NOTE Patient: Deborah Thomason : 1930: Age: 86 y.o. MedRec: [id number] PCP: Carlos Alberto Galeas MD Admission date: [...] a pneumonia. Dictated and Signed by: Matthew dosrey MD Electronically signed: 12/20/2016 11:00 AM Current [...] as outlined above. Angel Hendrix 12/22/2016 9:39 [facility] Salena Howard , ELDON - 12/22/2016 9:01 AM PDTPt's right 3rd toe was cleaned and made ready for new applica tion of oximetry probe. Values remain the same, preparation for room air oximetry evaluatio n. Demi Kang, PharmD - 12/22/2016 8:56 AM PDTFormatting of this note might be different from th e original. WARFARIN PER PHARMACY PROTOCOL: Subjective/Objective: Deborah Thomason is a 86 y.o. male admitted on 12/18/2016 for orthopedic surgery secondar y to femoral fracture. 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 Patient is [...] 2.07* 1.82* -- 1.67* Date 12/19 12/20 6/ 6/ Hgb 10.9 8.7 9.1 7.8 Hct 33.4 [...] Hct in am Warfarin education received No; SECURED ENTRANCE MONITOR Will monitor daily Warfarin Dosing Nomogram Warfarin [...] note might be different from the original. [facility] HOSPITALIST PROGRESS NOTE Patient: Deborah Thomason : 1930: Age: 86 y.o. MedRec: [id number] PCP: Carlos Alberto Galeas MD Admission date: [...] Crossmatch Result Value Ref Range Product Code P9777O77 UNIT # [id number] UNIT ABO O UNIT RH POS CROSSMATCH INTERP Compatible Unit Status Transfused Blood Product ABORh OPOS Blood Product Expiration Date and Time Product Blood Type Barcode 5100 Product Code I6715Q05 UNIT # [id number] UNIT ABO O UNIT RH POS CROSSMATCH [...] as outlined above. Angel Hendrix 12/21/2016 9:35 [facility] Radha Ferrer PharmD - 12/21/2016 8:55 AM PDT WARFARIN PER PHARMACY PROTOCOL: Subjective/Objective: Deborah Thomason is a 86 y.o. male admitted on 12/18/2016 for orthopedic surgery secondar y to femoral fracture. 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 Patient is [...] Hct in am Warfarin education received No; SECURED ENTRANCE MONITOR Will monitor daily Warfarin Dosing Nomogram Warfarin [...] F) - 102 20 95 % - 12/20/16 2130 (!) 80/59 (!) 38.8 C (101.8 F) - 99 22 96 % - 12/20/162110 - - - 105 20 97 % - 12/20/162058 (!) 80/54 (!) 39 C (102.2 F) - 106 22 96 % - 12/20/162036 91/59 (!) 39.1 C (102.4 F) - 109 23 - - 12/20/162029 (!) 84/58 (!) 39.1 C (102.4 F) - 115 (!) 31 94 % - 12/20/161999 91/61 (!) 39 C (102.2 F) - [...] Crossmatch Result Value Ref Range Product Code V1700X47 UNIT # [id number] UNIT ABO O UNIT RH POS CROSSMATCH INTERP Compatible Unit Status Transfused Blood Product [facility] OPOS Blood Product Expiration Date and Time Product Blood Type Barcode 5100 Product Code D1768P26 UNIT # [id number] UNIT ABO O UNIT RH POS CROSSMATCH INTERP Compatible Unit Status Crossmatched Blood Product [facility] OPOS Blood Product Expiration Date and [...] PM PDT PHARMACY SERVICES: ADMISSION MEDICATION REVIEW Deborah Thomason is a 86 y.o. male admitted on 12/18/16. Patient is a reliable historian. Location of Patient when reviewed: ED X Medical Floor Patient s prior to admit medication and over the counter (OTC) medications/herbal supplem ents list obtained from: X Verbal interview X Patient ABLE to recall name, strength, and directions X Doctor's office: [facility] Medicine X Care Everywhere Vaccines [...] performed and electronically signed by Don Siu, Supervisor [employer] 12/20/2016 19:03 Jordan Ball, PharmOzzie 12/20/2016 19:16 [...] on in - hospital rehab request. Joao Gaviria PharmD - 12/20/2016 12:21 PM PDTFormatting of thi s note might be different from the original. WARFARIN PER PHARMACY PROTOCOL: Subjective/Objective: Deborah Thomason is a 86 y.o. male admitted on 12/18/2016 for orthopedic surgery secondar y to femoral fracture. 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 Patient is [...] Hct in am Warfarin education received No; SECURED ENTRANCE MONITOR Will monitor daily Warfarin Dosing Nomogram Warfarin Dosing Expectations Per P&T-approved Joao Holcomb, PharmD 12/20/2016 12:21 Angel Gallagher MD - 12/20/2016 10:16 AM PDT [facility] HOSPITALIST PROGRESS NOTE Patient: Deborah Thomason : 1930: Age: 86 y.o. MedRec: [id number] PCP: Carlos Alberto Galeas MD Admission date: [...] Crossmatch Result Value Ref Range Product Code B5990H81 UNIT # [id number] UNIT ABO O UNIT RH POS CROSSMATCH INTERP Compatible Unit Status Crossmatched Blood Product [facility] Blood Product Expiration Date and Time Product Blood Type Barcode 5100 Product Code G8437V42 UNIT # [id number] UNIT ABO O UNIT RH POS CROSSMATCH INTERP Compatible Unit Status Crossmatched Blood Product [facility] Blood Product Expiration Date and Time [...] Plasma Result Value Ref Range Product Code F8748Q78 UNIT # [id number] UNIT ABO O UNIT RH POS Unit Status Transfused Blood Product [facility] OPOS Blood Product Expiration Date and Time Product Blood Type Barcode 5100 Product Code Q6986G26 UNIT # [id number] UNIT ABO O UNIT RH POS Unit Status Transfused Blood Product [facility] OPOS Blood Product Expiration Date and Time Product Blood Type Barcode 5100 Product Code W8374W83 UNIT # [id number] UNIT ABO O UNIT RH POS Unit Status Transfused Blood Product [facility] OPOS Blood Product Expiration Date and Time Product Blood Type Barcode 5100 Product Code C5159L09 UNIT # [id number] UNIT ABO O UNIT RH POS Unit Status Crossmatched Blood Product [facility] OPOS Blood Product Expiration Date and Time Product Blood Type Barcode 5100 Xr Chest Pa Or Ap Result Date: 12/19/2016 External films for comparison only - no result from [facility]. Xr Femur Left 2+vw Result Date: 12/19/2016 [...] for comparison only - no result from [facility]. Xr Femur Right 2+vw Result Date: 12/19/2016 [...] for comparison only - no result from [facility]. Fl C-arm Stats No Charge Result Date: [...] as outlined above. Angel Hendrix 12/20/2016 10:20 [facility] Addendum Right basilar pneumonia. Lambert Smith MD [...] - - 116 23 96 % - 12/19/16 2115 100/78 - - 105 22 94 [...] - - 107 15 93 % - 12/19/161938 121/59 36.1 C (97 F) Temporal 101 [...] Crossmatch Result Value Ref Range Product Code H0619X73 UNIT # [id number] UNIT ABO O UNIT RH POS CROSSMATCH INTERP Compatible Unit Status Crossmatched Blood Product [facility] Blood Product Expiration Date and Time Product Blood Type Barcode 5100 Product Code R2259K01 UNIT # [id number] UNIT ABO O UNIT RH POS CROSSMATCH INTERP Compatible Unit Status Crossmatched Blood Product [facility] Blood Product Expiration Date and Time [...] Plasma Result Value Ref Range Product Code T9314J79 UNIT # [id number] UNIT ABO O UNIT RH POS Unit Status Transfused Blood Product [facility] Blood Product Expiration Date and Time Product Blood Type Barcode 5100 Product Code G2665E50 UNIT # [id number] UNIT ABO O UNIT RH POS Unit Status Transfused Blood Product [facility] OPOS Blood Product Expiration Date and Time Product Blood Type Barcode 5100 Product Code A0590K22 UNIT # [id number] UNIT ABO O UNIT RH POS Unit Status Transfused Blood Product [facility]OS Blood Product Expiration Date and Time Product Blood Type Barcode 5100 Product Code T7882T23 UNIT # [id number] UNIT ABO O UNIT RH POS Unit Status Crossmatched Blood Product [facility] OPOS Blood Product Expiration Date and [...] MD DATE/TIME: 12/20/2016 7:35 Juan J Keith, ELDON - 12/19/2016 9:31 PM PDT Severity Score [...] PDT WARFARIN PER PHARMACY PROTOCOL: Subjective/Objective: Deborah Thmoason is a 86 y.o. male admitted on 12/18/2016 for orthopedic surgery secondar y to femoral fracture. 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 Patient is [...] Hct in am Warfarin education received No; SECURED ENTRANCE MONITOR Will monitor daily Warfarin Dosing Nomogram Warfarin Dosing Expectations Per P&T-approved Jordan Ball PharmD 12/19/2016 20:53 Cheng Delvalle MD - 12/19/2016 12:23 PM PDTFormatting of this note might be different from the kailey cuevas [facility] HOSPITALIST PROGRESS NOTE Patient: Deborah Thomason : 1930: Age: 86 y.o. MedRec: [id number] PCP: Carlos Alberto Galeas MD Admission date: [...] m g daily. He follows with a central supply worker in [place] Dr. Olivera at [facility]. He has a walker and a cane, usually uses his cane and lost his balance and fell backwards alycia satish both femurs and was seen in [facility] and sent to [place] after contacted Dr. Pricilla Pop He was noted have multiple skin tears. He denied that he passed out and denied any c hest pain or chest pressure. No headache. No hip pain but both femurs hurt, denied arthri tis. He has an incurable skin condition follows with sack sewer machine Dr. Anuja Kaminski. He use s what sounds like Kenalog cream. He has a remote history of mycoses fungoides diagnosed in [facility] probably 15 or 20 years ago. His [...] ECG No previous ECGs available Confirmed by ROMERO FULLER MD ([id number]) on 12/19/2016 6:58:41 AM Protime INR Result Value Ref Range Xr Chest Pa Or Ap Result Date: 12/19/2016 External films for comparison only - no result from [facility]. Xr Femur Left 2+vw Result Date: 12/19/2016 External films for comparison only - no result from [facility]. Xr Femur Right 2+vw Result Date: 12/19/2016 External films for comparison only - no result from [facility]. ASSESSMENT and PLAN: Femur fracture, right as [...] as outlined above. Kamran Tom 12/19/2016 12:23 [facility] documented in t his encounter Plan of Treatment +--------+---------+ + + + | Date | Type | Specialty | Care Team | Description | +--------+---------+ + + + | 07/08/ | Office | Cardiology | Paolo Selby, | | | 2020 | Visit | | [address] | | | | | | [place] | | | | | | [address] | | | | | | | [...] + +--------+ + + + | CULTURE, MRSA | Routin | 12/19/2016 | | [...] [address] | [place] | [phone] | | [facility] | | [address] | | | - LABORATORY | | [...] | 1.19 | 0.60 - 1.30 | [facility] | | | | | mg/dL | [facility] | | | | | | MEDICAL | | | | | | CENTER - | | | | | | LABORATORY | | + + + + + + | eGFR if not | 58 (L)Comment: | >=60 | [facility] | | | | GLOMERULAR FILTRATION | mL/min/1.73m2 | [facility] | | | [place] | RATE,ESTIMATED | | MEDICAL | | | | mL/min/1.68h6Fmey than | | CENTER - | | [...] | 8.6 | 8.3 - 10.5 | [facility] | | | | | mg/dL | [facility] | | | | | [...] + | [facility] | [address] | [place] | [phone] | | [facility] | | [address] | | | - LABORATORY | | [...] + | [facility] | [address] | [place], [place] | [phone] | | [facility] | | [address] | | | - LABORATORY | | [...] + + | Performing | Address | City/State[facility] | Phone Number | | Organization | | | | + + + + + | [facility] | [address] | [place] | [phone] | | [facility] | | [address] | | | - LABORATORY | | [...] (H) | 7 - 18 mg/dL | [facility] | | | | | | [facility] | | | | | | MEDICAL | | | | | | CENTER - | | | | | | LABORATORY | | + + + + + + | Creatinine | 1.14 | 0.60 - 1.30 | [facility] | | | | | mg/dL | [facility] | | | | | | MEDICAL | | | | | | CENTER - | | | | | | LABORATORY | | + + + + + + | eGFR if not | >60Comment: GLOMERULAR | >=60 | [facility] | | | | FILTRATION | mL/min/1.73m2 | [facility] | | | [place] | RATE,ESTIMATED | | MEDICAL | | | | mL/min/1.22q5Rroz than | | CENTER - | | [...] + | [facility] | [address] | [place] | [phone] | | [facility] | | [address] | | | - LABORATORY | | [...] + | [facility] | [address] | [place] | [phone] | | [facility] | | [address] | | | - LABORATORY | | [...] | | | Oral Anticoagulation | | [facility] | | | | Range: 2.0 [...] + | [facility] | [address] | [place] | [phone] | | [facility] | | [address] | | | - LABORATORY | | [...] ST. | [address] | [place], [place] | [phone] | | [facility] | | [address] | | | - LABORATORY | | [...] mL/min/1.73m2 | [facility] | | | [place] | RATE,ESTIMATED | | MEDICAL | | | | mL/min/1.13i1Aead than | | CENTER - | | [...] | | | Phosphatase | | | [facility] | | [...] [address] | [place] | [phone] | | [facility] | | [address] | | | - LABORATORY | | | | + + + + + CBC with Differential (12/29/2016 3:44 AM PDT) + + + + + + | Component | Value | Ref Range | Performed | Pathologist | | | | | At | Signature | + + + + + + | WBC | 9.1 | 4.0 - 11.0 K/uL | [facility] [...] | | Basophils | | K/uL | . [facility] | | | | [...] | [address] | [place] | [phone] | | [facility] | | [address] | | | - LABORATORY | | | | + + + + + Red Blood Cells (PRBC) - Crossmatch (12/28/2016 7:41 AM PDT) + + + + + + | Component | Value | Ref Range | Performed | Pathologist | | | | | At | Signature | + + + + + + | Product | [id number] | | [facility] | | | Code | | | [facility] | | | | | | MEDICAL | | | | | | CENTER - | | | | | | BLOOD BANK | | + + + + + + | UNIT # | [id number] | | [facility] | | | | [...] + + + + | Blood | [id number] | | [facility] | | | Product [...] + + + + | Product | [id number] | | [facility] | | | Code | | | [facility] | | | | | | MEDICAL | | | | | | CENTER - | | | | | | BLOOD BANK | | + + + + + + | UNIT # | [id number] | | [facility] | | | | [...] + + + + | Blood | [id number] | | [facility] | | | Product | | | [facility] | | | Expiration | | | MEDICAL | | | Date and | | | CENTER - | | | Time | | | BLOOD BANK | | + + + + + + | Product | [id number] | | [facility] | | | Blood Type | | | [facility] | | | Barcode | | | [...] St | [place] | | | [facility] | | [address] | | | - BLOOD BANK | [...] | | | Oral Anticoagulation | | [facility] | | | | Range: 2.0 [address] | [place] | [phone] | | [facility] | | [address] | | | - LABORATORY | | [...] + + | Performing | Address | City/State/[facility] | Phone Number | | Organization | | | | + + + + + | [facility] | [address] | [place] | [phone] | | [facility] | | [address] | | | - LABORATORY | | [...] (H) | 7 - 18 mg/dL | [facility] | | | | | | [facility] | | | | | | MEDICAL | | | | | | CENTER - | | | | | | LABORATORY | | + + + + + + | Creatinine | 1.21 | 0.60 - 1.30 | [facility] | | | | | mg/dL | [facility] | | | | | | MEDICAL | | | | | | CENTER - | | | | | | LABORATORY | | + + + + + + | eGFR if not | 57 (L)Comment: | >=60 | [facility] | | | | GLOMERULAR FILTRATION | mL/min/1.73m2 | [facility] | | | [place] | RATE,ESTIMATED | | MEDICAL | | | | mL/min/1.03i9Hmwn than | | CENTER - | | [...] [address] | [place] | [phone] | | [facility] | | [address] | | | - LABORATORY | | [address] | [place] | [phone] | | [facility] | | [address] | | | - LABORATORY | | | | + + + + + Sally INR (12/27/2016 5:39 AM PDT) + + [...] [address] | [place] | [phone] | | [facility] | | [address] | | | - LABORATORY | | [...] 3 | 3 - 16 mmol/L | [facility] | | | | | | [facility] | | | | | | MEDICAL | | | | | | CENTER - | | | | | | LABORATORY | | + + + + + + | Glucose | 99 | 70 - 109 mg/dL | [facility] | | | | | | [facility] [...] | 1.07 | 0.60 - 1.30 | [facility] | [...] mL/min/1.73m2 | [facility] | | | [place] | RATE,ESTIMATED | | MEDICAL | | | | mL/min/1.46e2Mugc than | | CENTER - | | [...] + | [facility] | [address] | [place] | [phone] | | [facility] | | [address] | | | - LABORATORY | | | | + + + + + CBC with Differential (12/27/2016 5:39 AM PDT) + + + + + + | Component | Value | Ref Range | Performed | Pathologist | | | | | At | Signature | + + + + + + | WBC | 8.3 | 4.0 - 11.0 K/uL | [facility] [...] | | Basophils | | K/uL | . 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 Helper RITCHIE | | | MARGARET | | | Gender Male | | | Nurse Stress | | | Manager Housekeeping Procedure Type of Study TTE procedure: ECHO [...] Volume: 74.41 ml | | | EF Wunfzsmbr24% Left Ventricle Diastolic | | | Dimension: [...] Volume: 74.41 ml | | | EF Gvgjyqbwn36% | | | | | | Left [...] | | (TTE) Demographics Patient Name EILEEN JOHN Room Number 459 | | DESTINY Patient Number [id number] Date of Study 12/26/2016 Visit | | Number [id number] Referring Physician CANDELARIO | | RAEF Number Date of 1930 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 | [place] | [phone] | | [facility] | | [address] | | | - LABORATORY | | | | + + + + + PRODUCT: Plasma (12/26/2016 7:15 AM PDT) + + + + + + | Component | Value | Ref Range | Performed | Pathologist | | | | | At | Signature | + + + + + + | Product | [id number] | | [facility] | | | Code | | | [facility] | | | | | | MEDICAL | | | | | | CENTER - | | | | | | BLOOD BANK | | + + + + + + | UNIT # | [id number] | | [facility] | | | | [...] + + + + | Blood | [id number] | | [facility] | | | Product [...] + + + + | Product | [id number] | | [facility] | | | Code | | | [facility] | | | | | | MEDICAL | | | | | | CENTER - | | | | | | BLOOD BANK | | + + + + + + | UNIT # | [id number] | | [facility] | | | | [...] + + + + | Blood | [id number] | | [facility] | | | Product [...] ST. | [address] | [place] | | | [facility] | | [address] | | | - BLOOD BANK | [...] ST. | [address] | [place], [place] | [phone] | | [facility] | | [address] | | | - LABORATORY | | [...] not | 59 (L)Comment: | >=60 | [facility] | | | | GLOMERULAR FILTRATION | mL/min/1.73m2 | [facility] | | | [place] | RATE,ESTIMATED | | MEDICAL | | | | mL/min/1.53n0Rnfq than | | CENTER - | | [...] | 8.4 | 8.3 - 10.5 | [facility] | | | | | mg/dL | [...] + | [facility] | [address] | [place] | [phone] | | [facility] | | [address] | | | - LABORATORY | | [...] | | | Eosinophils | | | [facility] | | [address] | [place] | [phone] | | [facility] | | [address] | | | - LABORATORY | | [...] intraoperative spot films November | | | FINDINGS: An intramedullary yulisa [...] | | Iliofemoral vascular calcification is present. [place] project | | | lateral to the [...] Iliofemoral vascular calcification is present. | | [place] project lateral to the hip and in [...] | Basophils | | K/uL | [facility] | | | | [...] [address] | [place] | [phone] | | [facility] | | [address] | | | - LABORATORY | | | | + + + + + B Type Natriuretic Peptide (12/25/2016 6:08 PM PDT) + +---------+ + + + | Component | Value | Ref Range | Performed | Pathologist | | | | | At | Signature | + +---------+ + + + | BNP | 375 (H) | <100 pg/mL | [facility] | | | | | [...] [address] | [place] | [phone] | | [facility] | | [address] | | | - LABORATORY | | [...] There is extensive iliofemoral vascular calcification. Skin saym project | | lateral to the right [...] + | [facility] | [address] | [place] | [phone] | | [facility] | | [address] | | | - LABORATORY | | [address] | [place] | [phone] | | [facility] | | [address] | | | - LABORATORY | | [...] | 0.98 | 0.60 - 1.30 | [facility] | | | | | mg/dL | [facility] | | | | | | MEDICAL | | | | | | CENTER - | | | | | | LABORATORY | | + + + + + + | eGFR if not | >60Comment: GLOMERULAR | >=60 | [facility] | | | | FILTRATION | mL/min/1.73m2 | [facility] | | | [place] | RATE,ESTIMATED | | MEDICAL | | | | mL/min/1.19w1Ykwp than | | CENTER - | | [...] [address] | [place] | [phone] | | [facility] | | [address] | | | - LABORATORY | | [...] + | [facility] | [address] | [place] | [phone] | | [facility] | | [address] | | | - LABORATORY | | | | + + + + + Red Blood Cells (PRBC) - Crossmatch (12/25/2016 1:15 AM PDT) + + + + + + | Component | Value | Ref Range | Performed | Pathologist | | | | | At | Signature | + + + + + + | Product | [id number] | | [facility] | | | Code | | | [facility] | | | | | | MEDICAL | | | | | | CENTER - | | | | | | BLOOD BANK | | + + + + + + | UNIT # | [id number] | | [facility] | | | | [...] + + + + | Blood | [id number] | | [facility] | | | Product [...] St | [place] | | | [facility] | | [address] | | | - BLOOD BANK | [...] | | | | | g/dL | [facility] | | | | | | MEDICAL | | | | | | CENTER - | | | | | | LABORATORY | | + + + + + + | Hematocrit | 28.3 (L) | 40.0 - 51.0 % | [facility] | | | | | [...] [address] | [place] | [phone] | | [facility] | | [address] | | | - LABORATORY | | [...] - 1.030 | [facility] | | | [place], | | | [facility] | | [...] + | [facility] | [address] | [place] | [phone] | | [facility] | | [address] | | | - LABORATORY | | [...] ST. | [address] | [place] | | | [facility] | | [address] | | | - BLOOD BANK | | | | + + + + + Protime INR (12/24/2016 3:51 AM PDT) + + [...] [address] | [place] | [phone] | | [facility] | | [address] | | | - LABORATORY | | [...] not | >60Comment: GLOMERULAR | >=60 | [facility] | | | | FILTRATION | mL/min/1.73m2 | [facility] | | | [place] | RATE,ESTIMATED | | MEDICAL | | | | mL/min/1.07s6Spcv than | | CENTER - | | [...] [address] | [place] | [phone] | | [facility] | | [address] | | | - LABORATORY | | [...] [address] | [place] | [phone] | | [facility] | | [address] | | | - LABORATORY | | [...] | | | | | g/dL | [facility] | | | | | | MEDICAL | | | | | | CENTER - | | | | | | LABORATORY | | + + + + + + | Hematocrit | 23.3 (L) | 40.0 - 51.0 % | [facility] | | | | | [...] [address] | [place] | [phone] | | [facility] | | [address] | | | - LABORATORY | | [...] [address] | [place] | [phone] | | [facility] | | [address] | | | - LABORATORY | | [...] [address] | [place] | [phone] | | [facility] | | [address] | | | - LABORATORY | | [...] 18 | 7 - 18 mg/dL | [facility] | | | | | | [facility] | | | | | | MEDICAL | | | | | | CENTER - | | | | | | LABORATORY | | + + + + + + | Creatinine | 1.25 | 0.60 - 1.30 | [facility] | | | | | mg/dL | [facility] | | | | | | MEDICAL | | | | | | CENTER - | | | | | | LABORATORY | | + + + + + + | eGFR if not | 55 (L)Comment: | >=60 | [facility] | | | | GLOMERULAR FILTRATION | mL/min/1.73m2 | [facility] | | | [place] | RATE,ESTIMATED | | MEDICAL | | | | mL/min/1.00e2Lstk than | | CENTER - | | [...] + | [facility] | [address] | [place] | [phone] | | [facility] | | [address] | | | - LABORATORY | | | | + + + + + Red Blood Cells (PRBC) - Crossmatch (12/23/2016 1:15 AM PDT) + + + + + + | Component | Value | Ref Range | Performed | Pathologist | | | | | At | Signature | + + + + + + | Product | [id number] | | [facility] | | | Code | | | [facility] | | | | | | MEDICAL | | | | | | CENTER - | | | | | | BLOOD BANK | | + + + + + + | UNIT # | [id number] | | [facility] | | | | [...] + + + + | Blood | [id number] | | [facility] | | | Product [...] + + + + | Product | [id number] | | [facility] | | | Code | | | [facility] | | | | | | MEDICAL | | | | | | CENTER - | | | | | | BLOOD BANK | | + + + + + + | UNIT # | [id number] | | [facility] | | | | [...] + + + + | Blood | [id number] | | [facility] | | | Product [...] St | [place] | | | [facility] | | [address] | | | - BLOOD BANK | [address] | [place] | [phone] | | [facility] | | [address] | | | - LABORATORY | | [...] | mL/min/1.73m2 | [facility] | | | [place] | RATE,ESTIMATED | | MEDICAL | | | | mL/min/1.39a3Txek than | | CENTER - | | [...] + | BUN/Creatin | 16.1 | | [facility] | | | ine Ratio | | [...] [address] | [place] | [phone] | | [facility] | | [address] | | | - LABORATORY | | [...] + | [facility] | [address] | [place] | [phone] | | [facility] | | [address] | | | - LABORATORY | | [...] | | | | g/dL | . [facility] | | | | [...] + | [facility] | [address] | [place] | [phone] | | [facility] | | [address] | | | - LABORATORY | | [...] postprocedural complication. Dictated and Signed by: Matthew Gann | | MD Doyle Electronically signed: 12/21/2016 [...] + + | Performing | Address | City/State[facility] | Phone Number | | Organization [...] + + | Performing | Address | City/State[facility] | Phone Number | | Organization | | | | + + + + + | [facility] | [address] | [place] | [phone] | | [facility] | | [address] | | | - LABORATORY | | [...] 16 | 7 - 18 mg/dL | [facility] | | | | | | [facility] | | | | | | MEDICAL | | | | | | CENTER - | | | | | | LABORATORY | | + + + + + + | Creatinine | 1.16 | 0.60 - 1.30 | [facility] | | | | | mg/dL | [facility] | | | | | | MEDICAL | | | | | | CENTER - | | | | | | LABORATORY | | + + + + + + | eGFR if not | 60Comment: GLOMERULAR | >=60 | [facility] | | | | FILTRATION | mL/min/1.73m2 | [facility] | | | [place] | RATE,ESTIMATED | | MEDICAL | | | | mL/min/1.49e9Xusv than | | CENTER - | | [...] + | [facility] | [address] | [place] | [phone] | | [facility] | | [address] | | | - LABORATORY | | [...] | | | Eosinophils | | | [facility] | | [...] + | [facility] | [address] | [place] | [phone] | | [facility] | | [address] | | | - LABORATORY | | [...] | | | | g/dL | [facility] | | | | | | MEDICAL | | | | | | CENTER - | | | | | | LABORATORY | | + + + + + + | Hematocrit | 26.7 (L) | 40.0 - 51.0 % | [facility] | | | | | [...] + + | [facility] | [address] | [place] | [phone] | | [facility] | | [address] | | | - LABORATORY | | [...] + | [facility] | [address] | [place] | [phone] | | [facility] | | [address] | | | - LABORATORY | | [...] + | [facility] | [address] | [place] | [phone] | | [facility] | | [address] | | | - LABORATORY | | [...] | [employer] | | | [facility] | | [address] | [place] | [phone] | | [facility] | | [address] | | | - LABORATORY | | [...] [address] | [place] | [phone] | | [facility] | | [address] | | | - LABORATORY | | [...] | | in | | | [facility] | [...] + | [facility] | [address] | [place] | [phone] | | [facility] | | [address] | | | - LABORATORY | | [...] [address] | [place] | [phone] | | [facility] | | [address] | | | - LABORATORY | | [...] [address] | [place] | [phone] | | [facility] | | [address] | | | - LABORATORY | | | | + + + + + PRODUCT: Plasma (12/20/2016 7:15 AM PDT) + + + + + + | Component | Value | Ref Range | Performed | Pathologist | | | | | At | Signature | + + + + + + | Product | [id number] | | [facility] | | | Code | | | [facility] | [facility] | | [facility] | | | | | | [facility] - | | | | | | BLOOD BANK | | + + + + + + | UNIT # | [id number] | | [facility] | | | | [...] + + + + | Blood | [id number] | | [facility] | | | Product [...] + + + + | Product | [id number] | | [facility] | | | Code | | | [facility] | | | [facility] | [facility] | | | | | | [facility] - | | | | | | BLOOD BANK | | + + + + + + | UNIT # | [id number] | | [facility] | | | | [...] + + + + | Blood | [id number] | | [facility] | | | Product [...] + + + + | Product | [id number] | | [facility] | | | Code | | | [facility] | | | | | | [facility] | | | | | | [facility] - | | | | | | BLOOD BANK | | + + + + + + | UNIT # | [id number] | | [facility] | | | | [...] + + + + | Blood | [id number] | | [facility] | | | Product [...] + + + + | Product | [id number] | | [facility] | | | Code | | | [facility] | | | [facility] | | [facility] | | | | | | [facility] - | | | | | | BLOOD BANK | | + + + + + + | UNIT # | [id number] | | [facility] | | | | [...] + + + + | Blood | [id number] | | [facility] | | | Product | | | [facility] | | | Expiration | | [...] St | [place] | | | [facility] | | [address] | | | - BLOOD BANK | [...] [address] | [place] | [phone] | | [facility] | | [address] | | | - LABORATORY | | [...] | + + + + + | [facility] | [address] | [place] | [phone] | | [facility] | | [address] | | | - LABORATORY | | [...] mL/min/1.73m2 | [facility] | | | [place] | RATE,ESTIMATED | | MEDICAL | | | | mL/min/1.74n7Uwka than | | CENTER - | | [...] [address] | [place] | [phone] | | [facility] | | [address] | | | - LABORATORY | | [...] | | chromogenic agar method | | [facility] | | | [...] [address] | [place] | [phone] | | [facility] | | [address] | | | - LABORATORY | | [...] | | + +---------+ + + [place] Morenita Mcclendon No Charge (12/19/2016 7:17 PM PDT) + [...] | | | + +---------+ + + Maria Elenaime DONALD (12/19/2016 3:06 PM PDT) + + + [...] + | [facility] | [address] | [place] | [phone] | | [facility] | | [address] | | | - LABORATORY | | [...] | | | | M/uL | [facility] | [...] [address] | [place] | [phone] | | [facility] | | [address] | | | - LABORATORY | | [...] (H) | 7 - 18 mg/dL | [facility] | | | | | | [facility] | | | | | | MEDICAL | | | | | | CENTER - | | | | | | LABORATORY | | + + + + + + | Creatinine | 1.23 | 0.60 - 1.30 | [facility] | | | | | mg/dL | [facility] | | | | | | MEDICAL | | | | | | CENTER - | | | | | | LABORATORY | | + + + + + + | eGFR if not | 56 (L)Comment: | >=60 | [facility] | | | | GLOMERULAR FILTRATION | mL/min/1.73m2 | [facility] | | | [place] | RATE,ESTIMATED | | MEDICAL | | | | mL/min/1.12t0Tgqv than | | CENTER - | | [...] + | [facility] | [address] | [place] | [phone] | | [facility] | | [address] | | | - LABORATORY | | [...] [address] | [place] | [phone] | | [facility] | | [address] | | | - LABORATORY | | [...] + | [facility] | [address] | [place] | | | [facility] | | [address] | | | - BLOOD BANK | | | | + + + + + Protime INR (12/19/2016 6:17 AM PDT) + + [...] [address] | [place] | [phone] | | [facility] | | [address] | | | - LABORATORY | | [...] | | | | ROMERO FULLER MD ([id number]) | | | | | | on [...] for comparison only - no result from [facility]. | [facility] | + + + [...] for comparison only - no result from [facility]. | [facility] | + + + [...] for comparison only - no result from [facility]. | [facility] | + + + [...] Diagnosis | + + | Femur fracture, right (HCC) - Primary Closed fracture of unspecified part of femur | + + | Atrial flutter, unspecified type (HCC) | + + | Anticoagulant long-term use Encounter for long-term (current) use of anticoagulants | + + | Closed fracture of neck of left femur, initial encounter (HCC) | + + | Acute diastolic heart failure (HCC) Acute diastolic heart failure | + + | Acute respiratory failure with hypoxia (HCC) Acute respiratory failure | + + | Delirium Other alteration of consciousness | + + | Elevated INR Abnormal coagulation profile | + + | Closed fracture of neck of right femur, initial encounter (HCC) | + + | Postoperative hemorrhagic shock, initial encounter | + + | Femur fracture, left (HCC) Closed fracture of unspecified part of femur | + + documented in this encounter [...] | | +---+---+ + +-------+ +-------+---+---+ | albuterol-ipratropium (DUONEB) | Given | 12/26/19 | 3 mLs | | | | 2.5-0.5 mg/3 mL nebulizer | | 17 11:11 | | | | | solution 3 mL 3 mL, | | AM PDT | | | | | Nebulization, RT Q4H, First dose | | | | | | | on 12/22/16 at 0800 | | | | | | + +-------+ +-------+---+---+ + + +-------+---+---+ | Given | 12/26/19 | 3 mLs | | | | | 17 7:52 | | | | | | AM PDT | | | | + + +-------+---+---+ | Given by Other | 12/26/19 | 3 mLs | | | | | 17 4:28 | | | | | | AM PDT | | | | + + +-------+---+---+ + +---+ | | | + +---+ [...] PDT | | | | | Starting 12/25/16 at 0956, 2 | | | | [...] | | +---+---+ + +-------+ +-------+---+---+ | atenolol (TENORMIN) tablet 25 | Given | 12/20/19 | 25 mg | | | | mg 25 mg, Oral, DAILY, First | | 17 9:23 | | | | | dose on Sat12/19/16 at 0900 | | [...] | | +---+---+ + +---------+ +--------+-------+---+ | azithromycin (ZITHROMAX) 500 mg | New Bag | 12/27/19 | 500 mg | 255 | | | in sodium chloride 0.9% 250 mL | | 17 8:46 | | mL/hr | | | IVPB 500 mg, Intravenous, | | AM PDT | | | | | Administer over 1 Hours, DAILY, | | | | | | | First dose on Sat12/20/16 at 1100, | | | | | | | Keep in refrigerator., | | | | | | | Indications: SEPSIS OF UNKNOWN | | | | | | | ETIOLOGY | | | | | | + +---------+ +--------+-------+---+ +---------+ +--------+-------+---+ | New Bag | 12/26/19 | 500 mg | 255 | | | | 17 9:21 | | mL/hr | | | | AM PDT | | | | +---------+ +--------+-------+---+ | New Bag | 12/25/19 | 500 mg | 255 | | | | 17 8:02 | | mL/hr | | | | AM PDT | | | | +---------+ +--------+-------+---+ +---+---+ | | | +---+---+ + +---------+ +-----+-------+---+ | cefTRIAXone (ROCEPHIN) 1 g in | New Bag | 12/29/19 | 1 g | 100 | | | sodium chloride 0.9% 50 mL IVPB | | 17 8:56 | | mL/hr | | | 1 g, Intravenous, Administer over | | AM PDT | | | | | 30 Minutes, EVERY 24 HOURS | | | | | | | (Daily), First dose on Sandy 12/20/16 | | | | | | | at 1100, Pharmacist may adjust | | | | | | | Activate system and mix before | | | | | | | use., Indications: SEPSIS OF | | | | | | | UNKNOWN ETIOLOGY | | | | | | + +---------+ +-----+-------+---+ +---------+ +-----+-------+---+ | New Bag | 12/28/19 | 1 g | 100 | | | | 17 8:02 | | mL/hr | | | | AM PDT | | | | +---------+ +-----+-------+---+ | New Bag | 12/27/19 | 1 g | 100 | | | | 17 8:45 | | mL/hr | | | | AM PDT | | | | +---------+ +-----+-------+---+ +---+---+ | | | +---+---+ + +-------+ +-------+---+---+ | dilTIAZem (CARDIZEM) injection | Given | 12/28/19 | 10 mg | | | | 10 mg 10 mg, Intravenous, ONCE, | | 17 12:26 | | | | | [place] 12/27/16 at 1230, For 1 dose, | | PM PDT | | | | | Keep in refrigerator., | | | | | | + [...] enoxaparin (LOVENOX) 80 mg/0.8 | Given | 12/23/19 | 80 mg | | Abdomen- | | mL injection 80 mg 80 mg, | | 17 8:29 | | | LLQ | | Subcutaneous, EVERY 12 HOURS (2 | | AM PDT | | | | | times per day), First dose on [facility] | | | | | | | 12/20/16 at 1245 | | | | | | + +-------+ +-------+---+ + +-------+ +-------+---+ + | Given | 12/22/19 | 80 mg | | Abdomen- | | | 17 9:26 | | | RUQ | | | PM PDT | | | | +-------+ +-------+---+ + | Given | 12/22/19 | 80 mg | | Abdomen- | | | 17 8:19 | | | LLQ | | | AM PDT | | | | +-------+ +-------+---+ + +---+---+ | | | +---+---+ + +---------+ + +-------+---+ | esmolol drip in saline | New Bag | 12/28/19 | 50 | 25.3 | | | (BREVIBLOC) 10 mg/mL infusion | | 17 3:42 | mcg/kg/m | mL/hr | | | 50-200 mcg/kg/min | | PM PDT | in | | | | 84.2 kg (25.26-101.04 mL/hr, | | | | | | | rounded to 25.3-101 mL/hr), at | | | | | | | 25.3-101 mL/hr, Intravenous, | | | | | | | TITRATED, Starting Sandy 12/27/16 at | | | | | | | 1445, Goal: Hear rate control | | | | | | | under 120, Initial infusion dose: | | | | | | | 50 mcg/kg/min | | | | | | + +---------+ + +-------+---+ +---+---+ | | | +---+---+ + + + + +-------+---+ | esmolol drip in saline | Rate/Dos | 12/30/19 | 50 | 25.3 | | | (BREVIBLOC) 10 mg/mL infusion | e Change | 17 9:03 | mcg/kg/m | mL/hr | | | 25-200 mcg/kg/min | | AM PDT | in | | | | 84.2 kg (12.63-101.04 mL/hr, | | | | | | | rounded to 12.6-101 mL/hr), at | | | | | | | 12.6-101 mL/hr, Intravenous, | | | | | | | TITRATED, Starting [facility] 12/27/16 at | | | | | | | 1930, Goal: Heart rate control | | | | | | | under 120, Initial infusion dose: | | | | | | | 25 mcg/kg/min | | | | | | + + + + +-------+---+ + + + +-------+---+ | Rate/Dose Change | 12/30/19 | 100 | 50.5 | | | | 17 8:42 | mcg/kg/m | mL/hr | | | | AM PDT | in | | | + + + +-------+---+ | New Bag | 12/30/19 | 50 | 25.3 | | | | 17 4:00 | mcg/kg/m | mL/hr | | | | AM PDT | in | | | + + + +-------+---+ +---+---+ | | | +---+---+ + +-------+ +--------+---+---+ | fentaNYL (PF) injection 25-50 | Given | 12/25/19 | 25 mcg | | | | mcg 25-50 mcg, Intravenous, | | 17 12:22 | | | | | EVERY 1 HOUR PRN, Pain, Starting | | AM PDT | | | | | 12/18/16 at 2145 | | | | | | + +-------+ +--------+---+---+ +-------+ +--------+---+---+ | Given | 12/24/19 | 25 mcg | | | | | 17 10:17 | | | | | | AM PDT | | | | +-------+ +--------+---+---+ | Given | 12/24/19 | 25 mcg | | | | | 17 3:29 | | | | | | AM PDT | | | | +-------+ +--------+---+---+ +---+---+ | | | +---+---+ + +-------+ +-------+---+---+ | furosemide (LASIX) injection 20 | Given | 12/20/19 | 20 mg | | | | mg 20 mg, Intravenous, SEE | | 17 2:35 | | | | | ADMIN INSTRUCTIONS, Starting Wed | | PM PDT | | | | | 12/19/16 at 1220, For 1 dose, Give | | | | | | | once after transfusion., | | | | | | + +-------+ +-------+---+---+ +---+---+ | | | +---+---+ + +-------+ +-------+---+---+ | furosemide (LASIX) injection 60 | Given | 12/26/19 | 60 mg | | | | mg 60 mg, Intravenous, ONCE, | | 17 2:11 | | | | | 12/25/16 at 1400, For 1 dose | | PM PDT | | | | + +-------+ +-------+---+---+ +---+---+ | | | +---+---+ + +-------+ +-------+---+---+ | furosemide (LASIX) injection 60 | Given | 12/27/19 | 60 mg | | | | mg 60 mg, Intravenous, ONCE, | | 17 9:15 | | | | | 12/26/16 at 0830, For 1 dose | | AM PDT | | | | + +-------+ +-------+---+---+ +---+---+ | | | +---+---+ + +-------+ +-------+---+---+ | furosemide (LASIX) injection 60 | Given | 12/28/19 | 60 mg | | | | mg 60 mg, Intravenous, ONCE, | | 17 10:20 | | | | | [place] 12/27/16 at 0930, For 1 dose | | AM PDT | | | | + +-------+ +-------+---+---+ +---+---+ | | | +---+---+ + +-------+ +-------+---+---+ | furosemide (LASIX) injection 60 | Given | 12/29/19 | 60 mg | | | | mg 60 mg, Intravenous, ONCE, | | 17 5:53 | | | | | 12/28/16 at 0600, For 1 dose | | AM PDT [...] | | | | | dose on [facility] 12/27/16 at 1015 | | | | [...] | +---+---+ + +-------+ + +---+---+ | HYDROcodone-acetaminophen | Given | 12/19/19 | 1 tablet | | | | (NORCO) 5-325 mg per tablet 1-2 | | 17 11:30 | | | | | tablet 1-2 tablet, Oral, EVERY 4 | | PM PDT | | | | | HOURS PRN, Pain, Starting Tue | | | | | | | 12/18/16 at 2146 | | | | | | + +-------+ + +---+---+ +-------+ + +---+---+ | Given | 12/19/19 | 1 tablet | | | | | 17 10:02 | | | | | | PM PDT | | | | +-------+ + +---+---+ +---+---+ | | | +---+---+ + +-------+ +--------+---+---+ | lactulose liquid 30 mL 30 mL, | Given | 12/25/19 | 30 mLs | | | | Oral, ONCE, 12/24/16 at 0745, | | 17 8:05 | | | | | For 1 dose | | AM PDT | | | | + +-------+ +--------+---+---+ +---+---+ | | | +---+---+ + +---------+ +-----+ +---+ | magnesium sulfate 2 g/50 mL | New Bag | 12/30/19 | 2 g | 25 mL/hr | | | IVPB 2 g 2 g, Intravenous, | | 17 8:57 | | | | | Administer over 120 Minutes, | | AM PDT | | | | | ONCE, 12/29/16 at 0800, For 1 | | | | | | | dose, Maximum recommended | | | | | | | infusion rate = 1 gram/hour., | | | | | | + +---------+ +-----+ +---+ +---+---+ | | | +---+---+ + +-------+ +-------+---+---+ | metoprolol tartrate (LOPRESSOR) | Given | 12/30/19 | 25 mg | | | | tablet 25 mg 25 mg, Oral, 2 | | 17 8:55 | | | | | TIMES DAILY, First dose on Sat | | AM PDT | | | | | 12/29/16 at 0900, Hold for SBP | | | | | | | <90, | | | | | | + +-------+ +-------+---+---+ +---+---+ | | | +---+---+ + +-------+ +-------+---+---+ | metoprolol tartrate (LOPRESSOR) | Given | 01/01/20 | 50 mg | | | | tablet 50 mg 50 mg, Oral, | | 17 9:08 | | | [...] midodrine (PROAMATINE) tablet 5 | Given | 12/30/19 | 5 mg | | | | mg 5 mg, Oral, 3 TIMES DAILY | | 17 5:07 | | | | | EARLY, First dose on 12/29/16 | | PM PDT | | | | | at 1215, Avoid dosing after | | | | | | | evening meal or within 4 hours of | | | | | | | bedtime., | | | | | | + +-------+ +------+---+---+ +-------+ +------+---+---+ | Given | 12/30/19 | 5 mg | | | | | 17 12:30 | | | | | | [...] | | | | | | Starting Sat12/21/16 at 1030, | | | | | [...] +------+---+---+ +---+---+ | | | +---+---+ + +---------+ +------+-------+---+ | phytonadione (VITAMIN K) 5 mg | New Bag | 12/27/19 | 5 mg | 101 | | | in sodium chloride 0.9% 50 mL | | 17 8:46 | | mL/hr | | | IVPB 5 mg, Intravenous, | | AM PDT | | | | | Administer over 30 Minutes, ONCE, | | | | | | | 12/26/16 at 0815, For 1 dose, | | | | | | | Protect from light., | | | | | | + +---------+ +------+-------+---+ +---+---+ | | | +---+---+ + +-------+ [...] +---+---+ + +-------+ +--------+---+---+ | potassium chloride (K-DUR) ER | Given | 12/25/19 | 40 mEq | | | | tablet 40 mEq 40 mEq, Oral, | | 17 10:06 | | | | | ONCE, 12/24/16 at 1015, For 1 | | AM PDT | | | | | dose, OK to substitute liquid | | | | | | | formulation if better tolerated., | | | | | | | | | | | | | + +-------+ +--------+---+---+ +---+---+ | | | +---+---+ + +-------+ +--------+---+---+ | potassium chloride (K-DUR) ER | Given | 12/28/19 | 40 mEq | | | | tablet 40 mEq 40 mEq, Oral, 3 | | 17 8:44 | | | | | TIMES DAILY, First dose on Sandy | | PM PDT | | | | | 12/27/16 at 0900, For 1 day | | | | | | + +-------+ +--------+---+---+ +-------+ +--------+---+---+ | Given | 12/28/19 | 40 mEq | | | | | 17 5:11 | | | | | | PM PDT | | | | +-------+ +--------+---+---+ | Given | 12/28/19 | 40 mEq | | | | | 17 10:20 | | | | | | AM PDT | | | | +-------+ +--------+---+---+ +---+---+ | | | +---+---+ + +-------+ +--------+---+---+ | potassium chloride (K-DUR) ER | Given | 12/30/19 | 40 mEq | | | | tablet 40 mEq 40 mEq, Oral, | | 17 8:55 | | | | | ONCE, 12/29/16 at 0745, For 1 | | AM PDT | | | | | dose | | | | | | + +-------+ +--------+---+---+ +---+---+ | | | +---+---+ + +---------+ +--------+-------+---+ | potassium chloride 40 mEq in | New Bag | 12/23/19 | 40 mEq | 130 | | | sodium chloride 0.45% 500 mL IVPB | | 17 10:28 | | mL/hr | | | 40 mEq, Intravenous, Administer | | AM PDT | | | | | over 4 Hours, ONCE, 12/22/16 | | | | | | | at 1000, For 1 dose | | | | [...] | | | | TIMES DAILY PRN, Gas, Starting | | PM PDT | | [...] +---+---+ | | | +---+---+ + +---------+ +---+-------+---+ | sodium chloride 0.9% (NS) 500 | New Bag | 12/21/19 | | 500 | | | mL bolus Intravenous, Administer | | 17 5:14 | | mL/hr | | | over 1 Hours, ONCE, [facility] 12/20/16 | | AM PDT | | | | | at 0530, For 1 dose | | | | | | + +---------+ +---+-------+---+ +---+---+ | | | +---+---+ + + + +---------+-------+---+ | sodium chloride 0.9% (NS) bolus | Bolus | 12/21/19 | 500 mLs | 500 | | | 500 mL 500 mL, Intravenous, | from Bag | 4:17 | | mL/hr | | | Administer over 1 Hours, ONCE, | | AM PDT | | | | | [place] 12/20/16 at 0415, For 1 dose | | | | | | + + + +---------+-------+---+ +---+---+ | | | +---+---+ + + + +---------+-------+---+ | sodium chloride 0.9% (NS) bolus | Bolus | 12/21/19 | 500 mLs | 250 | | | 500 mL 500 mL, Intravenous, | from Bag | 17 10:03 | | mL/hr | | | Administer over 2 Hours, ONCE, | | AM PDT | | | | | [place] 12/20/16 at 1015, For 1 dose | | | | | | + + + +---------+-------+---+ +---+---+ | | | +---+---+ + +---------+ +---------+-------+---+ | sodium chloride 0.9% (NS) bolus | New Bag | 12/21/19 | 500 mLs | 500 | | | 500 mL 500 mL, Intravenous, | | 17 12:34 | | mL/hr | | | Administer over 1 Hours, ONCE, | | PM PDT | | | | | [place] 12/20/16 at 1300, For 1 dose | | | | | | + +---------+ +---------+-------+---+ +---+---+ | | | +---+---+ + +---------+ +---------+-------+---+ | sodium chloride 0.9% (NS) bolus | New Bag | 12/21/19 | 500 mLs | 500 | | | 500 mL 500 mL, Intravenous, | | 17 10:06 | | mL/hr | | | Administer over 1 Hours, ONCE, | | PM PDT | | | | | [place] 12/20/16 at 2215, For 1 dose | | | | | | + +---------+ +---------+-------+---+ +---+---+ | | | +---+---+ + +---------+ +---+-------+---+ | sodium chloride 0.9% (NS) | New Bag | 12/22/19 | | 100 | | | infusion at 100 mL/hr, | | 17 3:58 | | mL/hr | | | Intravenous, CONTINUOUS, Starting | | AM PDT | | | | | 12/19/16 at 0000 | | | | | | + +---------+ +---+-------+---+ + + +---+ +---+ | Rate/Dose Change | 12/21/19 | | 100 | | | | 17 10:06 | | mL/hr | | | | PM PDT | | | | + + +---+ +---+ | Rate/Dose Verify | 12/21/19 | | 50 mL/hr | | | | 17 7:00 | | | | | | PM PDT | | | | + + +---+ +---+ +---+---+ | | | +---+---+ + +-------+ +------+---+---+ | warfarin (COUMADIN) tablet 3 mg | Given | 12/21/19 | 3 mg | | | | 3 mg, Oral, Daily - Warfarin, | | 17 7:18 | | | | | First dose on Sat12/19/16 at | | PM PDT | | | | | 2145, Reproductive Risk: Use | | | | | | | appropriate handling precautions. | | | | | | | Drug education required., | | | | | | + +-------+ +------+---+---+ +-------+ +------+---+---+ | Given | 12/20/19 | 3 mg | | | | | 17 9:42 | | | | | | PM PDT | | | | +-------+ +------+---+---+ +---+---+ | | | +---+---+ + +-------+ +------+---+---+ | warfarin (COUMADIN) tablet 3 mg | Given | 12/23/19 | 3 mg | | | | 3 mg, Oral, Daily - Warfarin, | | 17 5:50 | | | | | First dose on Sat12/22/16 at 1800, | | PM PDT | | | | | Reproductive Risk: Use | | | | | | | appropriate handling precautions. | | | | | | | Drug education required., | | | | | | + +-------+ +------+---+---+ +---+---+ | | | +---+---+ + +-------+ +------+---+---+ | warfarin (COUMADIN) tablet 4 mg | Given | 12/22/19 | 4 mg | | | | 4 mg, Oral, Once - Warfarin, | | 17 6:11 | | | | | First dose (after last reorder) | | PM PDT | | | | | on Sat12/21/16 at 1800, For 1 | | | | | | | dose, Reproductive Risk: Use | | | | | | | appropriate handling precautions. | | | | | | | Drug education required., | | | | | | + +-------+ +------+---+---+ +---+---+ | | | +---+---+ documented in this encounter
--- OUTSIDE RECORDS SUMMARY | ~2019-11-20 | XMS | Encounter Summary ---
Demographics + + + | Address | [address] | | | [place] [address] | + + + | Home Phone [...] + + | Author | [facility] | | | and Eduardana | + + + | Organization | [facility] | | | and [...] [place] | | | | | [address] | | + + + + + Care Team Providers + +------+ + | Care Template Checker Name | Role | Phone | + +------+ + | Carlos Alberto Galeas MD | PCP | | + +------+ + Encounter Details +--------+ + + + + | Date | Type | Department | Care Team | Description | +--------+ + + + + | 12/06/ | Hospital | [facility] | Max Delaney | Atheroscler of | | 2017 | Encounter | MED [facility] ULTRASOUND | MD Sara [address] | [place] artery of | | | | [address] [place] | [address] | right leg with | | | | [place], [place] | [place] [address] | intermit | | | | [address] | [phone] | claudication (HCC) | | | | [phone] | | | | | | | [...] | | | | | | [address] [place], [place] | | | | | | [address] | | | | | | | [...] RIGHT | e | 5:08 PM | [place] artery of | procedure are in the [...] IMAGING | | CLINICAL HISTORY: Atheroscler of [place] artery of right leg with | | [...] ultimately anastomose with the | | | [place] popliteal artery, which is patent and demonstrates [...] Dictated and Signed by: Daniel Gann | MD Julian Electronically signed: 12/06/2016 7:48 PM | | + + + + + | Procedure Note | + + | Zac Pierce Results In - 12/06/2016 7:51 PM PDT RIGHT LOWER EXTREMITY ARTERIAL | | ULTRASOUND 12/06/2016 2:39 PMCLINICAL HISTORY: Atheroscler of [place] artery of right leg | | with [...] superficial limbappears to ultimately anastomose with the [place] | | popliteal artery, which ispatent and [...] DISTALLY. TRIPHASIC WAVEFORMS ARE DEMONSTRATED. 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
--- OUTSIDE RECORDS SUMMARY | ~2019-11-20 | XMS | Encounter Summary ---
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 | Role | Phone | + [...] | +--------+ + + + + | 12/19/ | Anesthesia | [facility] | Julian Claudio T, | | | 2016 | Event | [facility] | MD [address] | | | | | [address] | [place] | | | | | [place] | [id number] | | | | | [phone] | | | | | | [phone] | Kyree Escamilla | | | | | | MD Rian [address] | | | | | | [address] [facility] | | | | | | [place] [address] | | | | | | [phone] | | | | | | | | +--------+ + + + + Anesthesia Record + + + + + | Procedure Name | Responsible | Anesthesia Start | Anesthesia Stop Time | | | Anesthesiologist | Time | | + + + + + | [facility] | Julian Claudio MD | 12/19/161609 | 12/19/161941 | | FEMORAL ANTEGRADE | | | | | (Right Femur) | | | | + + + + + +----+---+ + + | Da | T | Event | Comment | | te | i | | | | | m | | | | | e | | | +----+---+ + + | 05 | 1 | | | | /3 | 4 | | | | 1/ | 5 | | | | 20 | 2 | | | | 17 | | | | +----+---+ + + | | 1 | An Checkout | Pre-use anesthesia machine/equipment checkout. | | | 6 | | | | | 1 | | | | | 0 | | | +----+---+ + + | | 1 | An Start | Reassessment prior to anesthesia induction/procedure. | | | 6 | | | | | 1 | | | | | 0 | | | +----+---+ + + | | 1 | Antibiotic | | | | 6 | Given | | | | 1 | | | | | 4 | | | +----+---+ + + | | 1 | Preoxygenat | | | | 6 | ed | | | | 1 | | | | | 5 | | | +----+---+ + + | | 1 | An | | | | 6 | Induction | | | | 1 | | | | | 9 | | | +----+---+ + + | | 1 | An | | | | 6 | Intubation | | | | 1 | | | | | 9 | | | +----+---+ + + | | 1 | AN Bite | | | | 6 | Block | | | | 2 | | | | | 3 | | | +----+---+ + + | | 1 | [place] | | | | 6 | 43-degrees | | | | 4 | | | | | 2 | | | +----+---+ + + | | 1 | First | | | | 6 | Inc/Proc St | | | | 5 | | | | | 2 | | | +----+---+ + + | | 1 | [place] off | | | | 9 | | | | | 1 | | | | | 6 | | | +----+---+ + + | | 1 | AN No | TOF 4/4 with sustained tetanus. | | | 9 | Residual | | | | 2 | NMB | | | | 7 | | | +----+---+ + + | | 1 | Breathing | | | | 9 | Spontaneous | | | | 2 | ly | | | | 7 | | | +----+---+ + + | | 1 | Moving | | | | 9 | Purposefull | | | | 2 | y | | | | 7 | | | +----+---+ + + | | 1 | Extubated | | | | 9 | Awake | | | | 2 | | | | | 7 | | | +----+---+ + + | | 1 | Quick Note | IV re-dressed. Skin tissue ridiculously friable. | | | 9 | | | | | 3 | | | | | 4 | | | +----+---+ + + | | 1 | An Stop | Patient handed off to recovery nurse. | | | 4 | | | | | 2 | | | +----+---+ + + +------+ | Meds | +------+ + + + | Name | Total | + + + | lidocaine 2% (PF) | 60 mg | + + + | propofol | 125 mg | + + + | vecuronium | 7 mg | + + + | ondansetron | 4 mg | + + + | HYDROmorphone | 1 mg | + + + | Phenylephrine 100mcg/mL SYRINGE | 878 mg | + + + | Phenylephrine 10mg/mL VIAL | 4,734.6 mcg | + + + | EPINEPHrine | 10 mcg | + + + | ePHEDrine | 20 mg | + + + | ceFAZolin | 2 g | + + + | glycopyrrolate (ROBINUL) | 0.5 mg | | injection (5 mL vial) | | + + + | neostigmine | 3 mg | + + + | lactated ringers (LR) infusion | 2,000 mL | + + + + + | Name | + + | N2O Flow Rate (L/Min) | + + | O2 Flow Rate (L/Min) | + + | Insp O2 | + + | Exp SEV | + + | Exp RYNE | + + | Air Flow Rate (L/Min) | + + + +--------+ | Name | Total | + +--------+ | FFP-INTRAOP | 250 mL | + +--------+ +--------+ + + + | Type | Details | Placement | Removal | +--------+ + + + | Urethr | 12/18/16; yes; required for | 12/18/16 0000 by | 12/30/16 1630 by | | al | prolonged immobilization due to | Lashaun Stein RN | Meagan Pendleton RN | | Cathet | unstable fractures; indwelling | | | | er | double lumen catheter; urethral | | | | | catheter removed, tubing intact; | | | | | short term use; 12/30/16; 1630 | | | +--------+ + + + | Wound | 12/18/16; 2232; Right; upper, | 12/18/162232 by | 01/11/17 0000 by | | | posterior; arm; skin tear; | Lashaun Stein RN | Prema Michael RN | | | 01/11/17 | | | +--------+ + + + | Wound | 12/18/16; 2234; Right; lower; | 12/18/162233 by | 01/17/171329 by | | | arm; skin tear; 01/17/17; 1330 | Lashaun Stein RN | Sabra Gupta RN | +--------+ + + + | Wound | 12/18/16; 2234; Left; upper, | 12/18/162233 by | 01/03/172114 by | | | anterior; chest; skin tear; | Lashaun Stein RN | Catarina Winchester | | | 01/03/17; 2114 | Sanjuanita Romeo RN | +--------+ + + + | Wound | 12/18/16; 2234; Left; lower; arm; | 12/18/162234 by | 01/17/17 133 by | | | skin tear; 01/17/17; 1330 | Lashaun Stein RN | Sabra Gupta RN | +--------+ + + + | Airway | Placement Date: 12/19/16; | 12/19/161618 by | 12/19/161926 by | | | Placement Time: 1618 (created via | Valente Munoz, | Julian Claudio MD | | | procedure documentation); Mask | MD | | | | Ventilation: EZ; Airway Grade: | | | | | 2a; Successful Technique: Mac; | | | | | Laryngoscope Blade Size: 3; | | | | | Attempts: 1; Airway Type: | | | | | endotracheal, cuffed, | | | | | nonfenestrated, disposable; Size: | | | | | 6.5; Airway Tube Secured At: 22; | | | | | Tube Reference Point: secure and | | | | | patent, teeth; Trauma: none; | | | | | Other Equipment: stylette; | | | | | Placement Check: exhaled CO2 | | | | | detection device, bilateral chest | | | | | rise, breath sounds equal | | | | | bilaterally; Removal Date: | | | | | 12/19/16; Removal Time: 1926; | | | | | Additional Comments: Head | | | | | initially in neurtral Position. | | | | | Smooth IV induction, mask airway | | | | | established. Direct | | | | | Laryngoscopy, ETT placed under | | | | | direct vision. BSEB/ETCO2 | | | | | (auscultation and capnography) to | | | | | confirm placement. Depth noted. | | | | | Ventilator on. | | | +--------+ + + + | Read | 12/19/161941; Right; hip; | 12/19/161941 by | 01/17/17 1330 by | | only - | healed; 01/17/171329 | Kalina Strong RN | Sabra Gupta RN | | | | | | | [facility] | | | | | on | | | | +--------+ + + + | Read | 12/19/161941; Left; hip; | 12/19/161941 by | 01/17/17 1330 by | | only - | healed; 01/17/171329 | Kalina Strong RN | Sabra Gupta RN | | | | | | | [facility] | | | | | on | | | | +--------+ + + + documented in this encounter Social History + +-------+ +--------+------+ | Tobacco [...] [place] | | | | | | [id number] | | | | | | | | +--------+---------+ + + + documented as of this encounter Procedures + +--------+ + + + | Procedure Name | Priori | Date/Time | Associated Diagnosis | Comments | | | ty | | | | + +--------+ + + + | ANE AIRWAY NOTE | Routin | 12/19/2016 | | Results for this | | | e | 4:40 PM | | procedure are in the | | | | PDT | | results section. | + +--------+ + + + documented in this encounter Results Anesthesia Airway Note (12/19/2016 4:40 PM PDT) + + + | Narrative | Performed At | + + + | Valente Munoz MD 12/19/2016 16:40 Anesthesia Airway | | | Placement 12/19/2016 16:19 Preprocedure check: patient identified, | | | oxygen, airway assessed, patient reassessment prior to induction, | | | airway equipment checked and suction Mask ventilation: easy | | | Successful technique: Mac Laryngoscope blade size: 3 Airway | | | grade: 2a (Partial view of glottis) Other equipment: stylette | | | Attempts: 1 Airway type: endotracheal Size: 6.5 Cuffed: cuffed | | | Route, reference point: right side of mouth Tube secured with: | | | adhesive tape Trauma: none Tube placement verification: carbon | | | dioxide detection, equal bilateral breath sounds and bilateral chest | | | rise Comments: Head initially in neurtral Position. Smooth IV | | | induction, mask airway established. Direct Laryngoscopy, ETT | | | placed under direct vision. BSEB/ETCO2 (auscultation and | | | capnography) to confirm placement. Depth noted. Ventilator on. | | | Electronically Signed by: Valente Munoz MD | | | ESig date/time: 12/19/2016 16:39 | | | | | + + + + + | Procedure Note | + + | Valente Munoz MD - 12/19/2016 4:39 PM PDT Anesthesia Airway Placement12/19/2016 | | 16:19Preprocedure check: patient identified, oxygen, airway assessed, patient | | reassessment prior to induction, airway equipment checked and suctionMask ventilation: | | easySuccessful technique: MacLaryngoscope blade size: 3 Airway grade: 2a (Partial view | | of glottis)Other equipment: styletteAttempts: 1Airway type: endotrachealSize: 6.5Cuffed: | | cuffedRoute, reference point: right side of mouthTube secured with: adhesive | | tapeTrauma: noneTube placement verification: carbon dioxide detection, equal bilateral | | breath sounds and bilateral chest riseComments: Head initially in neurtral | | Position.Smooth IV induction, mask airway established.Direct Laryngoscopy, ETT placed | | under direct vision. BSEB/ETCO2 (auscultation and capnography) to confirm placement. | | Depth noted. Ventilator on.Electronically Signed by: Valente Munoz MD | | ESig date/time: 12/19/2016 16:39 | |Cuffed: cuffed | |Route, reference point: right side of mouth | |Tube secured with: adhesive tape | |Trauma: none | |Tube placement verification: carbon dioxide detection, equal bilateral breath sounds and bi lateral chest rise | | | |Comments: Head initially in neurtral Position. | | | |Smooth IV induction, mask airway established. | | | |Direct Laryngoscopy, ETT placed under direct vision. BSEB/ETCO2 (auscultation and capnogra phy) to confirm placement. Depth noted. Ventilator on. | | | | | |Electronically Signed by: MD Lizzy Mendoza date/time: 12/19/2016 16:39 | | | + + documented in this encounter Visit Diagnoses Not on filedocumented in this encounter Administered Medications + +--------+ +------+------+------+ | Medication Order | MAR | Action | Dose | Rate | Site | | | Action | Date | | | | + +--------+ +------+------+------+ | ceFAZolin (ANCEF, KEFZOL) | Given | 12/20/19 | 2 g | | | | injection Intravenous, PRN, | | 17 4:14 | | | | | Starting Sat12/19/16 at 1614, | | PM PDT | | | | | Anesthesia Intra-op | | | | | | + +--------+ +------+------+------+ +---+---+ | | | +---+---+ + +-------+ +-------+---+---+ | ePHEDrine 50 mg/mL injection | Given | 12/20/19 | 10 mg | | | | PRN, Starting 12/19/16 at | | 17 4:36 | | | | | 1633, Anesthesia Intra-op | | PM PDT | | | | + +-------+ +-------+---+---+ +-------+ +-------+---+---+ | Given | 12/20/19 | 10 mg | | | | | 17 4:33 | | | | | | PM PDT | | | | +-------+ +-------+---+---+ +---+---+ | | | +---+---+ + +-------+ +--------+---+---+ | EPINEPHrine 1 mg/mL injection | Given | 12/20/19 | 10 mcg | | | | Intravenous, PRN, Anaphylaxis, | | 17 4:38 | | | | | Starting Sat12/19/16 at 1638, | | PM PDT | | | | | Anesthesia Intra-op | | | | | | + +-------+ +--------+---+---+ +---+---+ | | | +---+---+ + +-------+ +--------+---+---+ | glycopyrrolate (HELGA) | Given | 12/20/19 | 0.5 mg | | | | injection Intravenous, PRN, | | 17 7:20 | | | | | Secretions, Starting 12/19/16 | | PM PDT | | | | | at 1920, Anesthesia Intra-op | | | | | | + +-------+ +--------+---+---+ +---+---+ | | | +---+---+ + +-------+ +------+---+---+ | HYDROmorphone (DILAUDID) 2 | Given | 12/20/19 | 1 mg | | | | mg/mL injection PRN, Pain, | | 17 4:18 | | | | | Starting Sat12/19/16 at 1618, | | PM PDT | | | | | Anesthesia Intra-op | | | | | | + +-------+ +------+---+---+ +---+---+ | | | +---+---+ + +---------+ +---+---+---+ | lactated ringers (LR) infusion | New Bag | 12/20/19 | | | | | at 10-100 mL/hr, Intravenous, | | 17 7:24 | | | | | CONTINUOUS, Starting Sat12/19/16 | | PM PDT | | | | | at 1530, TKO., Pre-op | | | | | | + +---------+ +---+---+---+ +---------+ +---+---+---+ | New Bag | 12/20/19 | | | | | | 17 5:40 | | | | | | PM PDT | | | | +---------+ +---+---+---+ | New Bag | 12/20/19 | | | | | | 17 2:06 | | | | | | PM PDT | | | | +---------+ +---+---+---+ +---+---+ | | | +---+---+ + +-------+ +-------+---+---+ | lidocaine (PF) 2% injection | Given | 12/20/19 | 60 mg | | | | PRN, Starting 12/19/16 at | | 17 4:19 | | | | | 1619, Anesthesia Intra-op | | PM PDT | | | | + +-------+ +-------+---+---+ +---+---+ | | | +---+---+ + +-------+ +------+---+---+ | neostigmine (BLOXIVERZ) 1 mg/mL | Given | 12/20/19 | 3 mg | | | | injection Intravenous, PRN, | | 17 7:20 | | | | | Starting Wed /31/17 at 1920, | | PM PDT | | | | | Anesthesia Intra-op | | | | | | + +-------+ +------+---+---+ +---+---+ | | | +---+---+ + +-------+ +------+---+---+ | ondansetron (ZOFRAN) injection | Given | 12/20/19 | 4 mg | | | | PRN, Nausea, Vomiting, Starting | | 17 4:19 | | | | | Sat12/19/16 at 1619, Anesthesia | | PM PDT | | | | | Intra-op | | | | | | + +-------+ +------+---+---+ +---+---+ | | | +---+---+ + + + + +-------+---+ | phenylephrine (NEEL-SYNEPHRINE) | Rate/Dos | 12/20/19 | 0.3 | 0.1 | | | 10 mg/mL injection Intravenous, | e Change | 17 6:22 | mcg/kg/m | mL/hr | | | CONTINUOUS PRN, Starting Wed | | PM PDT | in | | | | 12/19/16 at 1635, Anesthesia | | | | | | | Intra-op | | | | | | + + + + +-------+---+ + + + +-------+---+ | Rate/Dose Change | 12/20/19 | 0.2 | 0.1 | | | | 17 5:26 | mcg/kg/m | mL/hr | | | | PM PDT | in | | | + + + +-------+---+ | New Bag | 12/20/19 | 0.5 | 0.2 | | | | 17 4:35 | mcg/kg/m | mL/hr | | | | PM PDT | in | | | + + + +-------+---+ +---+---+ | | | +---+---+ + +-------+ +-------+---+---+ | phenylephrine (NEEL-SYNEPHRINE) | Given | 12/20/19 | 78 mg | | | | 100 mcg/mL injection | | 17 7:03 | | | | | Intravenous, PRN, Starting Wed | | PM PDT | | | | | 12/19/16 at 1628, Anesthesia | | | | | | | Intra-op | | | | | | + +-------+ +-------+---+---+ +-------+ +--------+---+---+ | Given | 12/20/19 | 100 mg | | | | | 17 6:17 | | | | | | PM PDT | | | | +-------+ +--------+---+---+ | Given | 12/20/19 | 100 mg | | | | | 17 6:06 | | | | | | PM PDT | | | | +-------+ +--------+---+---+ +---+---+ | | | +---+---+ + +---------+ +---+---+---+ | Plasma (FFP-INTRAOP)-Transfuse | New Bag | 12/20/19 | | | | | | | 17 4:31 | | | | | | | PM PDT | | | | + +---------+ +---+---+---+ +---+---+ | | | +---+---+ + +-------+ +--------+---+---+ | propofol (DIPRIVAN) injection | Given | 12/20/19 | 125 mg | | | | Intravenous, PRN, Starting Wed | | 17 4:19 | | | | | 12/19/16 at 1619, Anesthesia | | PM PDT | | | | | Intra-op | | | | | | + +-------+ +--------+---+---+ +---+---+ | | | +---+---+ + +-------+ +------+---+---+ | vecuronium (NORCURON) injection | Given | 12/20/19 | 2 mg | | | | Intravenous, PRN, Ventilator | | 17 4:19 | | | | | Dyssynchrony, Starting Wed | | PM PDT | | | | | 12/19/16 at 1618, Anesthesia | | | | | | | Intra-op | | | | | | + +-------+ +------+---+---+ +-------+ +------+---+---+ | Given | 12/20/19 | 5 mg | | | | | 17 4:18 | | | | | | PM PDT | | | | +-------+ +------+---+---+ +---+---+ | | | +---+---+ documented in this encounter"
--- OUTSIDE RECORDS SUMMARY | ~2019-11-20 | XMS | Encounter Summary ---
Demographics + + + | Address | [address] | | | [place] [address] | + + + | Home Phone | | + + + | Preferred Language | Unknown | + + + | Marital Status | | + + + | Restorationism Affiliation | Unknown | + + + | Race | Unknown | + + + | Ethnic Group | Unknown | + + + Author + + + | Author | [facility] | | | and Eduardana | + + + | Organization | [facility] | | | and Eduardana [...] [place] | | | | | [address] | | + + + + + Care Team Providers + +------+ + | Care Geriatrician Name | Role | Phone | + [...] [address] | | | | | 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Michael I, | [place] | | | | | carotid | MD, FACS | [place], | | | | | artery, | [address] | [place] [address] | | | | | unspecified | [place] | Phone: | | | | | laterality | [place], [place] | [phone] | | | | | Procedures | [id number] | Fax: | | | | | CT Angiogram | Phone: | [phone] | | | | | Neck w | [phone] | | | | | | Contrast | Fax: | | | | | | | [phone] | | +--------+--------+ + + + + Reason for Visit + + + | Reason | Comments | + + + | Follow-up | PVD - imaging follow up | + + + Evaluate & Treat (Routine) +--------+--------+ + + + + | Status | Reason | Specialty | Diagnoses / | Referred By | Referred To | | | | | Procedures | Contact | Contact | +--------+--------+ + + + + | Closed | | General | Diagnoses | Adal, | Field, | | | | Surgery | Peripheral | Carlos Alberto | Michael Howell, | | | | | arterial | MD Dylan | , FACS [address] | | | | | disease | [address] | | | | | ([facility]) | [place] | [place], | | | | | Procedures | [place], | [place] [address] | | | | | NE OFFICE | [place] [address] | Phone: | | | | | OUTPATIENT | Phone: | [phone] | | | | | NEW 45 | [phone] | Fax: | | | | | MINUTES | Fax: | [phone] | | | | | | [phone] | | +--------+--------+ + + + + Encounter Details +--------+---------+ + + + | Date | Type | Department | Care Team | Description | +--------+---------+ + + + | 02/24/ | Office | [facility] | Michael Alston | Subclavian steal | | 2018 | Visit | SURGERY [address] | MD Dante, FACS [address] | syndrome (Primary | | | | [place], [place] | [address] [place] | Dx); 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| | | [address] | [place] [address] | carotid artery, | | | | [phone] | [phone] | unspecified | | | | | | laterality; | | | | | | Peripheral arterial | | | | | | disease (HCC) | +--------+---------+ + + + Social History + +-------+ +--------+ + | Tobacco Use | Types | Packs/Day | Years | Date | | | | | Used | | + +-------+ +--------+ + | Former Smoker | | | | Quit: 02/24/2003 | + +-------+ +--------+ + + +---+---+---+ [...] + + + | Blood Pressure | 128/60 | 02/24/2018 8:53 AM | | | | | PDT | | + + + + + | Pulse | 56 | 02/24/2018 8:53 AM | | | | | PDT | | + + + + + | Temperature | 36.1 C (96.9 F) | 02/24/2018 8:53 AM | | | | | PDT [...] + + + + | Weight | 70.9 kg (156 lb 4.9 | 02/24/2018 8:53 AM | | | | oz) | PDT | | + + + + + | Height | 165.1 cm (5' 5") | 02/24/2018 8:53 AM | | | | | PDT | | + + + + + | Body Mass Index | 26.01 | 02/24/2018 8:53 AM | | | | | PDT [...] + documented as of this encounter Progress Michael Nj MD, FACS - 02/24/2018 10:30 AM PDTFormatting of this note might be diff erent from the original. HISTORY OF PRESENT ILLNESS Patient Identification: Dbeorah Thomason 1930 Is a 87 y.o. male , a patient o martina Galeas MD. Patient is here with his . S: Follow up on carotid stenosis Physician notes: Patient arrives today to follow up on carotid stenosis.Patient had RIGHT carotid endarterec zeynep 25-30 years ago. Had stroke 4 years ago with LEFT side weakness. Today he denies bilat eral hand pain, reports LEFT thumb joint pain. He admits that his arms get tired when using them, states his LEFT arm is weaker then RIGHT. Patient is RIGHT hand dominant. He denies difficulty breathing. 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 Moderate to severe ossified and noncalcified plaque is seen throughout the aorta and its proximal branching vessels. Bovine arch variant with the left common carotid extending from the right brachiocephalic artery. -35% stenosis at the origin of the right common carotid artery from the right brachiocephalic artery. -82% stenosis of the origin of the right subclavian artery, just beyond the level of the brachiocephalic junction, (coronal series 602, image 62 and axial series 4, image 330). Mild poststenotic dilatation of the right subclavian artery. Other areas of mild luminal stenosis are seen in its midportion. -High grade at least 70% stenosis of the left subclavian artery just proximal to the left vertebral artery junction. -60-70% stenosis at the origin of the left subclavian artery from the aorta. Right Carotid: Moderate to severe calcified plaque involving the right carotid bulb causes up to 55-60% focal luminal narrowing. Calcified and noncalcified plaque in the proximal right ICA causing only mild 15-20% luminal narrowing. Remainder of the ICA is widely patent. Left Carotid: CCA is patent. Large amount of calcified and noncalcified plaque involving the left carotid bulb causing up to 55% luminal narrowing. There is severe stenosis of the proximal left ECA causes up to 65-70% focal luminal narrowing. Large amount of noncalcified and moderate amount of calcified plaque causes 55-60% stenosis of the proximal ICA. Focal area of contrast is seen penetrating the noncalcified plaque in the left proximal ICA (series 4, image 173 and coronal series 602, image 70). Vertebrals: Left dominant vertebral artery system. Focal mild to moderate stenosis of the intracranial C4 segment (series 602, image 68 and 70). Focal area of severe stenosis with near-complete occlusion of the right vertebral artery just distal to the C3-C4 transverse foramen (series 4, image 151). This is caused by severe facet hypertrophy. There is adequate distal reconstitution. Focal long segment of moderate to severe stenosis of the V2 segment of the right vertebral artery with greater than 50% luminal narrowing due to calcified and noncalcified plaque at the level of C6-C7. At least moderate 50% stenosis at the origin of the left vertebral artery from the left subclavian. Focal mild stenosis of the V4 segment of the left vertebral artery due to calcified plaque. Visualized brain and skull base demonstrate no acute findings. Paranasal sinuses are clear. The nasopharynx, oropharynx, epiglottis, hypopharynx, and larynx are normal. The oral cavity is unremarkable. The parapharyngeal, retropharyngeal, and propeller tester spaces are normal. Complete fatty atrophy of the left parotid gland and nonspecific increased hyperdensity of the right parotid gland. The thyroid is unremarkable. No enlarged lymph nodes are visualized of the neck. Extensive areas of groundglass nodularity as well as numerous tree-in-bud nodular opacities seen throughout both lungs with relative peripheral sparing may represent is suspicious for acute infectious etiology with neoplastic or component of developing NSIP or other chronic interstitial lung disease also considered. Severe degenerative disc disease and neural foraminal narrowing from C4 through C7. Reversal of the normal cervical lordosis. Mild grade 1 anterolisthesis of C3 over C4. Extensive cystic changes are seen involving the dens. IMPRESSION - Background of severe peripheral vascular disease with multiple areas of severe stenosis involving bilateral carotid, right vertebral artery, and bilateral subclavian arteries as detailed above. Extensive areas of groundglass nodularity as well as numerous tree-in-bud nodular opacities seen throughout both lungs with relative peripheral sparing may represent is suspicious for acute atypical infectious etiology with neoplastic or component of developing NSIP or other chronic interstitial lung disease also considered. Complete fatty atrophy of the left parotid gland and nonspecific increased hyperdensity of the right parotid gland. Findings are of doubtful clinical significance. Dictated and Signed by: Ralph Kennedy MD Electronically signed: 02/18/2018 2:14 PM I have reviewed these images and agree with Radiologists findings. --see high-lights as ab ove. 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 PVD (peripheral vascular disease) (HCC) 02/06/2018 Urinary retention Past Surgical History: Procedure Laterality Date CAROTID ENDARTERECTOMY Right CATARACT REMOVAL WITH IMPLANT Bilateral 03/30/10 and 04/27/10 CORONARY ANGIOPLASTY without stent [facility] Approx [id number] FEMUR FRACTURE SURGERY Right 12/19/2016 Procedure: ORIF IM RODDING FEMORAL ANTEGRADE; Surgeon: Lambert Mancuso MD; Location: [facility] MAIN OR FEMUR FRACTURE SURGERY Left 12/19/2016 Procedure: ORIF IM RODDING FEMORAL TROCHANTERIC NAIL; Surgeon: Lambert Mancuso MD; Locati on: [facility] MAIN OR Heart/ Arrhythmia ablation Right [...] iliac angiography, Right femoral angiography with runoff. [facility] - Dr. Delaney Allergies Allergen [...] rhythm" Medications: Outpatient Encounter Prescriptions as of 02/24/2018 Medication Sig Dispense Refill amiodarone (PACERONE) 200 [...] tablet Take 400 mg by mouth Daily. metoprolol tartrate (LOPRESSOR) 25 mg tablet Take [...] TABS Take 1 tablet by mouth Daily. [place]-3 Fatty Acids (FISH OIL PO) Take 1 g by mouth. potassium chloride (K-DUR) 20 mEq ER tablet Take 20 mEq by mouth. potassium chloride (KLOR-CON) 20 MEQ packet Take 20 mEq by mouth. tamsulosin (FLOMAX) 0.4 mg CAPS Take 2 capsules by mouth daily (after breakfast). 30 ca psule 1 tocopherol (VITAMIN E) 400 units capsule Take 400 Units by mouth Daily. triamcinolone (KENALOG) 0.1% cream triamcinolone acetonide 0.1 % topical cream warfarin (COUMADIN) 3 MG tablet Take 3 mg by mouth Daily. Saturday, Sat, Saturday warfarin (COUMADIN) 5 mg tablet Take 5 mg by mouth Daily. As directed 5 mg on , Sat, Sat, Saturday or as directed by doctor. No facility-administered encounter medications on file as of 02/24/2018. Family History Problem Relation Age of Onset Heart disease Mother Heart attack Father Heart disease Father Emphysema Father Social History: He reports that he quit smoking about 15 years ago. He has never used smokeless tobacco. He reports that he drinks about 0.6 oz of alcohol per week . He reports that he does not use d rugs. PHYSICAL EXAM Vitals: 02/24/18 0853 BP: 128/60 Pulse: 56 Temp: 36.1 C (96.9 F) TempSrc: Temporal Weight: 70.9 kg (156 lb 4.9 oz) Height: 1.651 m (5' 5") Body mass index is 26.01 kg/m. PE: General Appearance: Alert, cooperative, no distress, appears stated age Skin: Warm and dry Neck: RIGHT neck scar, bilaterally neck bruits. Upper Extremities: Palpable Pulses: RIGHT LEFT Brachial 1+ 2+ Radial trace 2+ Ulnar Neurologic: Alert and oriented x3,Moving all 4 extremities. , Gait normal ASSESSMENT 1. Subclavian steal syndrome 2. Stenosis of carotid artery, unspecified laterality 3. Peripheral arterial disease (HCC) PLAN 1. Subclavian steal syndrome, asymptomatic--proximal subclavian stenosis with flow reversal in the vertebral artery--asymptomatic . Continue to take BP on LEFT arm only. 2. Carotid stenosis Treat medically, no surgery indicated at this time. Continue coumadin and daily use of of statin per Primary--currently taking atorvastatin. Repeat carotid CTA in one year--January 2019 3. Neurogenic claudication-- combined with LEFT leg vascular claudication 4. I spoke with Dr Galeas ([phone]) regarding follow up for lung lesions seen on C TA. Return to clinic in February 2019 following carotid CTA. CC: MD Michael Davis MD, FACS Vascular and General Surgery documented i n this encounter Plan of Treatment +--------+---------+ + + + | Date | Type | Specialty | Care Team | Description | +--------+---------+ + + + | 07/08/ | Office | Cardiology | Paolo Selby, | | | 2019 | Visit | | MD Marjan MARINELLI | | | | | | [place] | | | | | | [id number] | | | | | | | | +--------+---------+ + + + documented as of this encounter Results CT Angiogram Neck w Contrast (12/25/2018 10:20 AM PDT) + + | Specimen | + + | | + + + + + | Narrative | Performed At | + + + | CTA NECK WITH MULTIPLANAR REFORMATIONS AND THREE-DIMENSIONAL | [facility] | | VASCULAR RECONSTRUCTIONS 12/25/2018 10:00 AM CLINICAL | | | HISTORY:?Carotid Stenosis COMPARISON: CTA January 2018 | | | TECHNIQUE: ?Axial images were performed from the aortic arch through | | | the skull base following the uneventful intravenous administration of | | | 90 mL Omnipaque-350 contrast. Multiplanar reformations and | | | three-dimensional vascular reconstructions were also performed. | | | FINDINGS: There is extensive calcified plaque in the imaged aortic | | | arch. Variant common origin of the brachiocephalic and left common | | | carotid arteries is again evident. The brachiocephalic artery | | | contains calcified and noncalcified plaque but is widely patent. | | | Severe, heavily calcified stenosis of the origin of the right | | | subclavian artery is again demonstrated, and is difficult to | | | quantify. The imaged right subclavian artery is otherwise widely | | | patent. Approximate 60-70% heavily calcified stenosis persists at | | | the origin of the left subclavian artery, and additional narrowing of | | | approximately 60% persists slightly more distally in this vessel, at | | | the level of a focal tortuosity, immediately proximal to the origin | | | of the left vertebral artery. The left subclavian artery is widely | | | patent otherwise. Calcified plaque is scattered throughout the | | | left common carotid artery, without significant stenosis. Heavily | | | calcified plaque is again demonstrated in the left carotid bulb, | | | again moderately narrowing the origin of the external carotid artery. | | | The external carotid branches are otherwise widely patent. Mixed | | | attenuation plaque persists at the origin of the left internal | | | carotid artery and appears to narrow vessel caliber by 60 to 70%, | | | which is slightly increased from previous imaging. Focal extension | | | of contrast into the noncalcified plaque is again evident in this | | | vicinity. The left ICA is otherwise widely patent through the skull | | | base. Calcified plaque in the cavernous ICA appears to fairly | | | mildly narrow vessel caliber. Calcified plaque is scattered | | | through the right common carotid artery, without significant | | | stenosis. Heavily calcified plaque is again demonstrated in the | | | right carotid bulb, narrowing vessel caliber by approximately 70%, | | | which is slightly increased from previous imaging. There is similar | | | mild to moderate narrowing of the origin of the external carotid | | | artery. The external carotid branches are otherwise widely patent. | | | Mixed attenuation plaque persists at the origin of the right | | | internal carotid artery, narrowing the lumen by approximately 20-30%, | | | which is slightly increased. The right ICA is otherwise widely | | | patent through the skull base. Calcified plaque in the cavernous ICA | | | appears to fairly mildly narrow vessel caliber. The right | | | vertebral artery is again diffusely smaller in caliber relative to the | | | left. There is calcified plaque at the origins of the vertebral | | | arteries and scattered throughout their courses, with moderate | | | stenosis of their intradural segments suggested. Focal high-grade | | | stenosis of the right vertebral artery at the level of the C3-4 | | | foramen persists unchanged. This appears to result from severe | | | facet and uncovertebral hypertrophy. No aneurysm or greg vascular | | | occlusion is evident. Evaluation of the venous structures is | | | limited by timing of this arteriographic exam. The pharynx, larynx | | | and imaged trachea are unremarkable, along with the thyroid and | | | submandibular glands. The right parotid gland is unremarkable. The | | | left parotid gland again appears atrophic or absent. No pathologic | | | lymph node enlargement is evident. Extensive tiny ill-defined | | | clustered nodules are again demonstrated in the imaged upper lungs | | | and appear subjectively similar to decreased in extent. Mild | | | biapical pleural thickening persists. The paranasal sinuses, middle | | | ear cavities and mastoid air cells are well aerated. Cystic change | | | persists in the odontoid process, with marked degeneration of the | | | anterior C1-2 articulation again apparent. Reversal of the cervical | | | lordosis persists and severe multilevel degenerative disc disease, | | | spondylosis, mild spondylolisthesis and variable central canal and | | | foraminal stenosis are again apparent. Numerous dental caries are | | | suggested. IMPRESSION - 1. EXTENSIVE ATHEROSCLEROSIS WITH | | | STENOSIS INVOLVING THE ORIGINS OF THE RIGHT GREATER THAN LEFT | | | SUBCLAVIAN ARTERIES, CERVICAL CAROTID ARTERIES AND VERTEBRAL | | | ARTERIES, DETAILED ABOVE. 2. EXTENSIVE TINY CLUSTERED NODULES | | | IN THE IMAGED UPPER LUNGS, SIMILAR TO SLIGHTLY DECREASED IN EXTENT | | | FROM IMAGING OF JANUARY 2018 AND POTENTIALLY A MANIFESTATION OF SMALL | | | AIRWAY CENTERED INFECTION OR INFLAMMATION. 3. EXTENSIVE CERVICAL | | | DEGENERATIVE DISC DISEASE AND SPONDYLOSIS WITH VARIABLE STENOSIS. | | | 4. POOR DENTITION. Dictated and Signed by: Daniel Jordan MD | | | Electronically signed: 12/25/2018 11:46 AM | | + + + + + | Procedure Note | + + | Stan, Rad Results In - 12/25/2018 11:50 AM PDT CTA NECK WITH MULTIPLANAR REFORMATIONS | | AND THREE-DIMENSIONAL VASCULARRECONSTRUCTIONS 12/25/2018 10:00 AMCLINICAL HISTORY:?Carotid | | Stenosis COMPARISON: CTA January 2018TECHNIQUE: ?Axial images were performed from the | | aortic arch through the skullbase following the uneventful intravenous administration of | | 90 mL Omnipaque-350contrast. Multiplanar reformations and three-dimensional | | vascularreconstructions were also performed.FINDINGS: There is extensive calcified | | plaque in the imaged aortic arch. Variant common origin of the brachiocephalic and left | | common carotid arteries isagain evident. The brachiocephalic artery contains calcified | | and noncalcifiedplaque but is widely patent. Severe, heavily calcified stenosis of the | | originof the right subclavian artery is again demonstrated, and is difficult toquantify. | | The imaged right subclavian artery is otherwise widely patent. Approximate 60-70% | | heavily calcified stenosis persists at the origin of the leftsubclavian artery, and | | additional narrowing of approximately 60% persistsslightly more distally in this vessel, | | at the level of a focal tortuosity,immediately proximal to the origin of the left | | vertebral artery. The leftsubclavian artery is widely patent otherwise.Calcified plaque | | is scattered throughout the left common carotid artery, withoutsignificant stenosis. | | Heavily calcified plaque is again demonstrated in theleft carotid bulb, again moderately | | narrowing the origin of the external carotidartery. The external carotid branches are | | otherwise widely patent. Mixedattenuation plaque persists at the origin of the left | | internal carotid arteryand appears to narrow vessel caliber by 60 to 70%, which is | | slightly increasedfrom previous imaging. Focal extension of contrast into the | | noncalcified plaqueis again evident in this vicinity. The left ICA is otherwise widely | | patentthrough the skull base. Calcified plaque in the cavernous ICA appears to | | fairlymildly narrow vessel caliber.Calcified plaque is scattered through the right | | common carotid artery, withoutsignificant stenosis. Heavily calcified plaque is again | | demonstrated in theright carotid bulb, narrowing vessel caliber by approximately 70%, | | which isslightly increased from previous imaging. There is similar mild to | | moderatenarrowing of the origin of the external carotid artery. The external | | carotidbranches are otherwise widely patent. Mixed attenuation plaque persists at | | theorigin of the right internal carotid artery, narrowing the lumen byapproximately | | 20-30%, which is slightly increased. The right ICA is otherwisewidely patent through | | the skull base. Calcified plaque in the cavernous ICAappears to fairly mildly narrow | | vessel caliber.The right vertebral artery is again diffusely smaller in caliber relative | | to theleft. There is calcified plaque at the origins of the vertebral arteries | | andscattered throughout their courses, with moderate stenosis of their | | intraduralsegments suggested. Focal high-grade stenosis of the right vertebral artery | | atthe level of the C3-4 foramen persists unchanged. This appears to result fromsevere | | facet and uncovertebral hypertrophy.No aneurysm or greg vascular occlusion is evident. | | Evaluation of the venousstructures is limited by timing of this arteriographic exam.The | | pharynx, larynx and imaged trachea are unremarkable, along with the thyroidand | | submandibular glands. The right parotid gland is unremarkable. The leftparotid gland | | again appears atrophic or absent. No pathologic lymph nodeenlargement is evident. | | Extensive tiny ill-defined clustered nodules are againdemonstrated in the imaged upper | | lungs and appear subjectively similar todecreased in extent. Mild biapical pleural | | thickening persists. The paranasalsinuses, middle ear cavities and mastoid air cells | | are well aerated. Cysticchange persists in the odontoid process, with marked | | degeneration of theanterior C1-2 articulation again apparent. Reversal of the cervical | | lordosispersists and severe multilevel degenerative disc disease, spondylosis, | | mildspondylolisthesis and variable central canal and foraminal stenosis are | | againapparent. Numerous dental caries are suggested.IMPRESSION -1. EXTENSIVE | | ATHEROSCLEROSIS WITH STENOSIS INVOLVING THE ORIGINS OF THE RIGHTGREATER THAN LEFT | | SUBCLAVIAN ARTERIES, CERVICAL CAROTID ARTERIES AND VERTEBRALARTERIES, DETAILED | | ABOVE.2. EXTENSIVE TINY CLUSTERED NODULES IN THE IMAGED UPPER LUNGS, SIMILAR TOSLIGHTLY | | DECREASED IN EXTENT FROM IMAGING OF JANUARY 2018 AND POTENTIALLY AMANIFESTATION OF SMALL | | AIRWAY CENTERED INFECTION OR INFLAMMATION.3. EXTENSIVE CERVICAL DEGENERATIVE DISC | | DISEASE AND SPONDYLOSIS WITH VARIABLESTENOSIS.4. POOR DENTITION.Dictated and Signed by: | | Daniel Jordan MD Electronically signed: 12/25/2018 11:46 AM | |and submandibular glands. The right parotid gland is unremarkable. The left | |parotid gland again appears atrophic or absent. No pathologic lymph node | |enlargement is evident. Extensive tiny ill-defined clustered nodules are again | |demonstrated in the imaged upper lungs and appear subjectively similar to | |decreased in extent. Mild biapical pleural thickening persists. The paranasal | |sinuses, middle ear cavities and mastoid air cells are well aerated. Cystic | |change persists in the odontoid process, with marked degeneration of the | |anterior C1-2 articulation again apparent. Reversal of the cervical lordosis | |persists and severe multilevel degenerative disc disease, spondylosis, mild | |spondylolisthesis and variable central canal and foraminal stenosis are again | |apparent. Numerous dental caries are suggested. | | | |IMPRESSION - | | | |1. EXTENSIVE ATHEROSCLEROSIS WITH STENOSIS INVOLVING THE ORIGINS OF THE RIGHT | |GREATER THAN LEFT SUBCLAVIAN ARTERIES, CERVICAL CAROTID ARTERIES AND VERTEBRAL | |ARTERIES, DETAILED ABOVE. | | | |2. EXTENSIVE TINY CLUSTERED NODULES IN THE IMAGED UPPER LUNGS, SIMILAR TO | |SLIGHTLY DECREASED IN EXTENT FROM IMAGING OF JANUARY 2018 AND POTENTIALLY A | |MANIFESTATION OF SMALL AIRWAY CENTERED INFECTION OR INFLAMMATION. | | | |3. EXTENSIVE CERVICAL DEGENERATIVE DISC DISEASE AND SPONDYLOSIS WITH VARIABLE | |STENOSIS. | | | |4. POOR DENTITION. | | | |Dictated and Signed by: Daniel Jordan MD | | Electronically signed: 12/25/2018 11:46 AM | + + + +---------+ + [...]
--- OUTSIDE RECORDS SUMMARY | ~2019-11-20 | XMS | Encounter Summary ---
Demographics + + + | Address | [address] | | | [place] [address] | + + + | Home Phone [...] + + | Organization | [facility] | | | and Eduardana [...] [place] | | | | | [address] | | + + + + + Care Team Providers + +------+ + | Care Acute Care Clinical Nurse Specialist Name | Role | Phone | + +------+ + | Carlos Alberto Galeas MD | PCP | | + +------+ + Reason for Visit +---------+ + | Reason | Comments | +---------+ + | Consult | PVD and carotid | +---------+ + Evaluate & Treat (Routine) + + + + + + + | Status | Reason | Specialty | Diagnoses / | Referred By | Referred To | | | | | Procedures | Contact | Contact | + + + + + + + | Authorized | Specialty | Vascular | Diagnoses | [facility] | | | Services | Surgery | Chronic | MD Paolo | Surgery | | | Required | | atrial | [address] | | | | | fibrillation | [address] | DR [address] | | | | | (HCC) | [place] | [place], [place] | | | | | Essential | [place], [place] | [address] | | | | | hypertension | [address] | Phone: | | | | | PVD | Phone: | [phone] | | | | | (peripheral | [phone] | Fax: | | | | | vascular | Fax: | [phone] | | | | | disease) | [phone] | | | | | | (HCC) | | | | | | | Bilateral | | | | | | | carotid | | | | | | | artery | | | | | | | stenosis | | | + + + + + + + Encounter Details +--------+---------+ + + + | Date | Type | Department | Care Team | Description | +--------+---------+ + + + | 07/02/ | Office | [facility] | Peggy Cason DNP | Bilateral carotid | | 2019 | Visit | VASCULAR SURGERY | [address] | artery stenosis | | | | [address] | [place], [place] | (Primary Dx); PVD | | | | [place], [place] | [address] | (peripheral vascular | | | | [address] | | disease) (HCC) | | | | [phone] | Osmin Garber MD | | | | | | [address] | | | | | | [address] | | | | | | [place] [address] | | | | | | [phone] | | | | | | | [...] +---------+ + + | Blood Pressure | 146/81 | 07/02/2019 11:35 AM | | | | | PST | | + +---------+ + + | Pulse | 74 | 07/02/2019 11:35 AM | | | | | PST | | + +---------+ + + | Temperature | - | - | | + +---------+ + + | Respiratory Rate | - | - | | + +---------+ + + | Oxygen Saturation | 97% | 07/02/2019 11:35 AM | | | | | PST [...] encounter Progress Notes Osmin Garber MD - 07/02/2019 11:45 AM PSTFormatting of this note might be different from t pepe branham. [facility] [address] [place] [address] [place] [address] Office: [phone] DATE OF VISIT: 07/04/2019 PATIENT NAME: Deborah Thomason : 1930; AGE: 88 y.o.; Sex:M PHONE NUMBER: ; (Work); ; PHYSICIAN: Osmin Garber MD PRIMARY CARE / REFERRING PHYSICIAN: Paolo Selby MD / Carlos Alberto Galeas MD / [id number] / [place] [id number] / REASON FOR EVALUATION / CHIEF COMPLAINT: Evaluation and treatment of Bilateral carotid lis ry disease, peripheral vascular disease. HISTORY OF PRESENT ILLNESS: Deborah Thomason is a 88 y.o. male patient who For evaluati on of bilateral carotid artery disease, and bilateral peripheral arterial disease. Patient is a very pleasant male. He has multiple medical issues. He is able to ambulate some howev er he reports bilateral leg fatigue. He denies pain at restIn either lower extremity.He has some minor abrasions on his anterior surface of his ankles but has no foot wounds at this t denton. Patient is also limited by his other medical co-morbidities. He feels his life is pre tty good right now he is able to do the things he would like to do. He is currently on anti coagulation for his heart. He has history of a bypass on the right lower extremity, and a r ight carotid endarterectomy done in [place] many years ago. He denies any recent illness, fever, chills, Chest pain, SOB. Patient denies any amaurosis, stroke/TIA symptoms. PAST SURGICAL HISTORY: The patient's has a past surgical history that includes Cataract re moval with implant (Bilateral); CORONARY ANGIOPLASTY without stent [facility] (A pprox [phone]); Femur fracture surgery (Right, 12/19/2016); Femur fracture surgery (Left, ); carotid endarterectomy (Right); Heart/ Arrhythmia ablation ; Right thigh biopsy (10/24/2011); Right femoral to below knee popliteal reverse saphenus vein graft (12/01/2013) ; and Ultrasound guided access, right common femoral artery (11/30/2013). 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 FAMILY HISTORY: The patient's family history includes * in his brother; Coronary artery dis ease in his brother and mother; Emphysema in his father; Heart attack in his father; Heart d isease in his father; No known problems in his sister. CURRENT MEDICATIONS: Current Outpatient Medications Medication Sig Dispense Refill Ascorbic Acid (VITAMIN [...] mouth Daily. 5 mg on Saturday, Saturday, No current facility-administered medications for this visit. Allergies Allergen Reactions Naproxen Other (See Comments) States "put me in the hospital with kidney failure" States "put me in the hospital with kidney failure" Penicillins Swelling, Rash and Hives Lips swell eyes swell shut and pruritis Acetaminophen Rash Lisinopril Other (See Comments) Olmesartan Other (See Comments) Prednisone Other (See Comments) "Knocks heart out of rhythm" SOCIAL HISTORY: reports that he quit smoking about 16 years ago. He started smoking about 66 years ago. He has a 50.00 pack-year smoking history. He has never used smokeless tobacco. He reports current alcohol use of about 1.0 standard drinks of alcohol per week. He reports that he does not use drugs. REVIEW OF SYSTEMS: 12-point ROS negative, other per HPI VITAL SIGNS: BP 146/81 | Pulse 74 | SpO2 97% PHYSICAL EXAM: Constitutional: Well nourished, no signs of distress HENT: Normocephalic and atraumatic. Cranial nerves II-XI are grossly intact. Lymphadenopathy: no cervical, supraclavicular adenopathy Cardiovascular: Normal rate, regular rhythm Pulmonary/Chest: Unlabored at rest Abdominal: non-tender Musculoskeletal: Normal range of motion. Extremities: left foot cooler than right, no active wounds. Previous surgical incisions on right lower extremity. Neurological: alert and oriented. normal gait. VASCULAR: palpable femoral, weak on left, +carotid bruit bilaterally, strong monophasic dop pler signals on left, good biphasic signals on right. IMAGINGS: Duplex imaging done in clinic, previous CTA head/neck from outside hospital - reviewed ASSESSMENT / PLAN: Mr. Devlin is a very pleasant 88-year-old male with multiple medical co-m orbidities. He presents for evaluation of bilateral lower extremity peripheral arterial dis ease as well as bilateral carotid artery disease. In terms of his carotid artery disease: juhi teague is currently asymptomatic with less than 80% stenosis of his bilateral carotid arteri es. Given this I would not offer treatment at this time. I would continue surveillance wit h duplex ultrasound. We agreed to repeat duplex in 6 months. We reviewed stroke/TIA sympto ms and need for urgent evaluation. In terms of his bilateral lower extremity peripheral arterial disease: The left leg has an JEREMY of 0.3 which is consistent with severe peripheral arterial disease. He has a history of a right lower leg bypass and an JEREMY of 1.36 (likely super systolic), TBI 0.56, consistent w ith moderate peripheral arterial disease on the right. He has no active wounds and denies r est pain. Given this, I would defer any intervention at this time. Should he develop wound s or rest pain then we can discuss further evaluation and treatment. His current symptoms d o not seem to be disruptive to his day-to-day activities. We will get repeat JEREMY's in 6 mon ths. We reviewed the need to protect his feet at all times. He would be unable to heel a w ound on the left foot should it occur. He and his voiced understanding and are happy w ith the plan going forward. They will call should any problems develop. Osmin Garber MD Vascular Surgery Dictation software, [employer], used which may contain error for similar sounding words even af ter review. Personal communication requested for any clarification. Portions of this chart may have been copied from previous notes for continuity of care purp ose documented in this encou nter Plan of Treatment +--------+---------+ + + + | Date | Type | Specialty | Care Team | Description | +--------+---------+ + + + | 01/26/ | Office | Cardiology | Paolo Selby, | | | 2019 | Visit | | MD Marjan MARINELLI | | | | | | [place], [place] | | | | | | [address] | | | | | | | | +--------+---------+ + + + documented as of this encounter Visit Diagnoses + + | Diagnosis | + + | Bilateral carotid artery stenosis - Primary Occlusion and stenosis of multiple and | | bilateral precerebral arteries without mention of cerebral infarction | + + | PVD (peripheral vascular disease) (HCC) Peripheral vascular disease, unspecified | + + documented in this encounter
--- OUTSIDE RECORDS SUMMARY | ~2019-11-20 | XMS | Encounter Summary ---
Demographics + + + | Address | [address] | | | [place] [address] | + + + | Home Phone [...] + | Organization | [facility] | | | and [...] [place] | | | | | [address] | | + + + + + Care Team Providers + +------+ + | Care Sound Effects Technician Name | Role | Phone | + +------+ + | Carlos Alberto Galeas MD | PCP | | + +------+ + Encounter Details +--------+ + + + + | Date | Type | Department | Care Team | Description | +--------+ + + + + | 02/05/ | Abstract | [facility] | Provider, | | | 2018 | | SURGERY [address] | | | | [address] | [place] | | | | | [address] | [place] [address] | | | | | [phone] | | | +--------+ + + + [...] | | | | | [place] | | | | | | [address] | | | | | | | | +--------+---------+ + + + documented as of this encounter Visit Diagnoses Not on filedocumented in this encounter"
--- OUTSIDE RECORDS SUMMARY | ~2019-11-20 | XMS | Encounter Summary ---
Demographics + + + | Address | [address] | | | [place] [address] | + + + | Home Phone | | + + + | Preferred Language | Unknown | + + + | Marital Status | | + + + | Cheondoism Affiliation | Unknown | + + + | Race | Unknown | + + + | Ethnic Group | Unknown | + + + Author + + + | Author | [facility] | | | and [place] | + + + | Organization | [facility] [...] [place] | | | | | [address] | | + + + + + Care Team Providers + +------+ + | Care Dish Washer Name | Role | Phone | + [...] | | | [address] | [place] [address] | | | | | [place] [address] | | | | | | [phone] | | | +--------+ + + + [...] | | | | | [place] | | | | | | [address] | | | | | | | [...]
--- OUTSIDE RECORDS SUMMARY | ~2019-11-20 | XMS | Encounter Summary ---
Demographics + + + | Address | [address] | | | [place] [address] | + + + | Home Phone | | + + + | Preferred Language | Unknown | + + + | Marital Status | | + + + | Hindu Affiliation | Unknown | + + + | Race | Unknown | + + + | Ethnic Group | Unknown | + + + Author + + + | Author | [facility] | | | and Eduard[place] | + + + | Organization | [facility] | | | and [...] | [place] | | | | | [address] | | + + + + + Care Team Providers + +------+ + | Care Agriculture Sales Account Manager Name | Role | Phone | + [...] | | | [address] | [place] [address] | | | | | [place] [address] | | | | | | [phone] | | | +--------+ + + + [...] | | | | | [place] | | | | | | [address] | | | | | | | | +--------+---------+ + + + documented as of this encounter Procedures + +--------+ + + + | Procedure Name | Priori | Date/Time | Associated Diagnosis | Comments | | | ty | | | | + +--------+ + + + | XR CHEST 1 VIEW | Routin | 01/02/2013 | | Results for this | | | e | 9:40 PM | | procedure are in the | | | | PDT | | results section. | + +--------+ + + + documented in this encounter Results XR Chest 1 Vw (01/02/2013 9:40 PM PDT) + + | Specimen | [...]
--- OUTSIDE RECORDS SUMMARY | ~2019-11-20 | XMS | Encounter Summary ---
Demographics + + + | Address | [address] | | | [place] [address] | + + + | Home Phone | | + + + | Preferred Language | Unknown | + + + | Marital Status | | + + + | Shinto Affiliation | Unknown | + + + | Race | Unknown | + + + | Ethnic Group | Unknown | + + + Author + + + | Author | [facility] | | | and Eduardana | + + + | Organization | [facility] | | | and Eduardana [...] [place] | | | | | [address] | | + + + + + Care Team Providers + +------+ + | Care Long Term Name | Role | Phone | + [...] + + | 12/18/ | Hospital | [facility] | Anisha Ku MD | Atrial flutter, | | 2017 - | Encounter | [facility] | [address] | unspecified type | | | | [address] [place] | [place] | (HCC); Anticoagulant | | 12/31/ | | [place] [id number] | [id number] | long-term use; | | 2017 | | [phone] | | Closed fracture of | | | | | Gamal Serrano MD | neck of left femur, | | | | | [address] | initial encounter | | | | | [place], [place] | ([facility]); Acute | | | | | [address] | diastolic heart | | | | | | failure ([facility]); Acute | | | | | Lambert Mancuso MD | respiratory failure | | | | | [address] | with hypoxia ([facility]); | | | | | [place], [place] | Atrial flutter with | | | | | [address] | rapid ventricular | | | | | [phone] | response ([facility]); | | | | | | Delirium; Elevated | | | | | Radha Hoyt MD | INR; Closed fracture | | | | | [address] | of neck of right | | | | | [place], [place] | femur, initial | | | | | [address] | encounter ([facility]); | | | | | | [...] 3 mL RT EVERY 4 HOURS PRN ALW BRUSH Signed and Held Signed and Held alteplase (CATHFLO ACTIVASE) injection 2 mg PRN LAW BRUSH Signed and Held Signed and Held amiodarone (PACERONE) tablet 200 mg DAILY LAW BRUSH Signed and Held Signed and Held atorvaSTATin (LIPITOR) tablet 20 mg NIGHTLY LAW BRUSH Signed and Held Signed and Held docusate sodium (COLACE) capsule 100 mg 2 TIMES DAILY VT N LAW BRUSH Signed and Held Signed [...] signed by: Radha Hoyt MD, 12/31/2016 15:[address] [facility] documented in this enc ounter Medications [...] Hawthorne MD - 12/20 11:40 AM PDT [facility] Patient: Deborah Thomason : 1930: Age: 86 y.o. MedRec: [id number] PCP: Carlos Alberto Galeas MD Admission date: [...] reorientation *Anticipate discharge to inpatient rehab versus custodial facility tomorrow. DVT Prophylaxis SCD's while in bed Code Status DNR/DNI. Total time of approximately 35 minutes was spent with the patient and/or patient's family, and/or on the patient's floor/unit, of which more than 50% was spent counseling and/or coord ination the patient's care as outlined above. Radha Hoyt 12/30/2016 11:41 [facility] Radha Hawthorne MD - 12/29/2016 4:14 PM PDTFormatting of this note might be di fferent from the original. [facility] Patient: Deborah Thomason : 1930: Age: 86 y.o. MedRec: [id number] PCP: Carlos Alberto Galeas MD Admission date: [...] as outlined above. Radha Hoyt 12/29/2016 16:14 [facility] aleria Sims RN - 12/28/2016 6:20 PM [...] might be different from t he original. [facility] Patient: Deborah Thomason : 1930: Age: 86 y.o. MedRec: [id number] PCP: Carlos Alberto Galeas MD Admission date: [...] Crossmatch Result Value Ref Range Product Code Q8051M67 UNIT # [id number] UNIT ABO O UNIT RH POS CROSSMATCH INTERP Compatible Unit Status Returned Blood Product ABOR OP Blood Product Expiration Date and Time Product Blood Type Barcode 5100 Product Code R7055I29 UNIT # [id number] UNIT ABO O UNIT RH POS CROSSMATCH [...] as outlined above. Radha Hoyt 12/28/2016 15:06 [facility] Radha Hawthorne MD - 12/27/2016 4:44 PM PDTFormatting of this note might be di fferent from the original. [facility] PROGRESS NOTE Patient: Deborah Thomason : 1930: Age: 86 y.o. MedRec: [id number] PCP: Carlos Alberto Galeas MD Admission date: [...] are maintained. Iliofemoral vascular calcification is present. [place] lat eral to the hip and [...] as outlined above. 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 MedRec: [id number] PCP: Carlos Alberto Galeas MD Admission date: [...] Plasma Result Value Ref Range Product Code Z4745G86 UNIT # [id number] UNIT ABO O UNIT RH POS Unit Status Transfused Blood Product ABOR OPOS Blood Product Expiration Date and Time Product Blood Type Barcode 5100 Product Code G0436H55 UNIT # [id number] UNIT ABO O UNIT RH POS Unit Status Transfused Blood Product ABOR OPOS Blood Product Expiration Date and Time [id number] Product Blood Type Barcode 5100 Occult Blood, [...] as outlined above. 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 Patient [...] Hct in am. 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 I informed him that his left lung base is diminished with crackles, which means he needs to do it, clinically he needs to do it. Radha Hawthorne MD - 12/25/2016 4:55 PM PDTFormatting of th is note might be different from the original. [facility] Patient: Deborah Thomason : 1930: Age: 86 y.o. MedRec: [id number] PCP: Carlos Alberto Galeas MD Admission date: [...] Crossmatch Result Value Ref Range Product Code J0105T31 UNIT # [id number] UNIT ABO O UNIT RH POS CROSSMATCH INTERP Compatible Unit Status Crossmatched Blood Product ABOR OP Blood Product Expiration Date and Time Product Blood Type Barcode 5100 Product Code J5794M86 UNIT # [id number] UNIT ABO O UNIT RH POS CROSSMATCH INTERP Compatible Unit Status Transfused Blood Product [facility] OPOS Blood Product Expiration Date and Time Product Blood Type Barcode 5100 Red Blood Cells (PRBC) - Crossmatch Result Value Ref Range Product Code V4851H67 UNIT # [id number] UNIT ABO O UNIT RH NEG CROSSMATCH [...] Plasma Result Value Ref Range Product Code Q3458M72 UNIT # [id number] UNIT ABO O UNIT RH POS Unit Status Issued Blood Product [facility] OP Blood Product Expiration Date and Time Product Blood Type Barcode 5100 Product Code J1372D57 UNIT # [id number] UNIT ABO O UNIT RH POS Unit Status Issued Blood Product ABOR OP Blood Product Expiration Date and Time 371594325035 Product Blood Type Barcode 5100 Xr Chest [...] Gamal Serrano MD 8.6 mg at 12/23 7651 ASSESSMENT and PLAN: Active Hospital Problems Diagnosis [...] as outlined above. Radha Hoyt 12/25/2016 16:56 [facility] Lambert Smith MD - 0 12/25/2016 10:32 [...] Crossmatch Result Value Ref Range Product Code D9870J32 UNIT # [id number] UNIT ABO O UNIT RH POS CROSSMATCH INTERP Compatible Unit Status Crossmatched Blood Product [facility] OP Blood Product Expiration Date and Time Product Blood Type Barcode 5100 Product Code Y1260U42 UNIT # [id number] UNIT ABO O UNIT RH POS CROSSMATCH INTERP Compatible Unit Status Transfused Blood Product [facility] OPOS Blood Product Expiration Date and Time Product Blood Type Barcode 5100 Red Blood Cells (PRBC) - Crossmatch Result Value Ref Range Product Code Y2410M97 UNIT # [id number] UNIT ABO O UNIT RH NEG CROSSMATCH INTERP Compatible Unit Status Transfused Blood Product [facility] ONEG Blood Product Expiration Date and [...] (HCC) 2012 (2013); 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 Patient [...] it to MWF. 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 Warfarin Dosing Nomogram Warfarin [...] PH UA 5.0 5.0 - 8.0 Specific [place] 1.016 1.001 - 1.030 PROTEIN UA 30 mg/dL (A) Negative BLOOD UA Small (A) Negative GLUCOSE UA Negative Negative KETONES UA Negative Negative BILIRUBIN UA Negative Negative NITRITE UA Negative Negative LEUKOCYTES ESTERASE UA Negative Negative UROBILINOGEN UA Negative 0.2 mg/dL, 1.0 mg/dL, Negative Red Blood Cells (PRBC) - Crossmatch Result Value Ref Range Product Code K9569A86 UNIT # [id number] UNIT ABO O UNIT RH POS CROSSMATCH INTERP Compatible Unit Status Crossmatched Blood Product [facility]h OPOS Blood Product Expiration Date and Time Product Blood Type Barcode 5100 Product Code F9594T49 UNIT # [id number] UNIT ABO O UNIT RH POS CROSSMATCH INTERP Compatible Unit Status Issued Blood Product [facility]ORh OPOS Blood Product Expiration Date and Time Product Blood Type Barcode 5100 Red Blood Cells (PRBC) - Crossmatch Result Value Ref Range Product Code C8639P24 UNIT # [id number] UNIT ABO O UNIT RH NEG CROSSMATCH [...] note might be different from the original. [facility]GR[facility] NOTE Patient: Deborah Thomason : 1930: Age: 86 y.o. MedRec: [id number] PCP: Carlos Alberto Galeas MD Admission date: [...] Crossmatch Result Value Ref Range Product Code P2154E16 UNIT # [id number] UNIT ABO O UNIT RH POS CROSSMATCH INTERP Compatible Unit Status Crossmatched Blood Product [facility] OPOS Blood Product Expiration Date and Time Product Blood Type Barcode 5100 Product Code O0781X99 UNIT # [id number] UNIT ABO O UNIT RH POS CROSSMATCH [...] as outlined above. Angel Hendrix 12/24/2016 9:52 [facility] Ora Medina, PharmD - 12/24/2016 6:57 AM PDT WARFARIN PER PHARMACY PROTOCOL: Subjective/Objective: Deborah Thomason is a 86 y.o. male admitted on 12/18/2016 for orthopedic surgery secondar y to femoral fracture. 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 Patient [...] it to MWF. 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 MedRec: [id number] PCP: Carlos Alberto Galeas MD Admission date: [...] Crossmatch Result Value Ref Range Product Code K4793F04 UNIT # [id number] UNIT ABO O UNIT RH POS CROSSMATCH INTERP Compatible Unit Status Transfused Blood Product ABOR OPOS Blood Product Expiration Date and Time [id number] Product Blood Type Barcode 5100 Product Code W5938R24 UNIT # [id number] UNIT ABO O UNIT RH POS CROSSMATCH INTERP Compatible Unit Status Transfused Blood Product [facility] OPOS Blood Product Expiration Date and Time [id number] Product Blood Type Barcode 5100 Basic Metabolic [...] as outlined above. 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 Patient [...] it to MWF. 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 Warfarin Dosing Nomogram Warfarin [...] Crossmatch Result Value Ref Range Product Code K3288F83 UNIT # [id number] UNIT ABO O UNIT RH POS CROSSMATCH INTERP Compatible Unit Status Transfused Blood Product ABORh OPOS Blood Product Expiration Date and Time [id number] Product Blood Type Barcode 5100 Product Code F7085Y68 UNIT # [id number] UNIT ABO O UNIT RH POS CROSSMATCH INTERP Compatible Unit Status Issued Blood Product [facility] Blood Product Expiration Date and Time 967739637985 Product Blood Type Barcode 5100 Bilateral lower [...] amin MD - 12/22/2016 9:39 AM PDT [facility] PROGRESS NOTE Patient: Deborah Thomason : 1930: Age: 86 y.o. MedRec: [id number] PCP: Carlos Alberto Galeas MD Admission date: [...] as outlined above. 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 [facility] PROGRESS NOTE Patient: Deborah Thomason : 1930: Age: 86 y.o. MedRec: [id number] PCP: Carlos Alberto Galeas MD Admission date: [...] Crossmatch Result Value Ref Range Product Code L9278S80 UNIT # [id number] UNIT ABO O UNIT RH POS CROSSMATCH INTERP Compatible Unit Status Transfused Blood Product ABORh OPOS Blood Product Expiration Date and Time Product Blood Type Barcode 5100 Product Code Q1943Q69 UNIT # [id number] UNIT ABO O UNIT RH POS CROSSMATCH [...] as outlined above. Angel Hendrix 12/21/2016 9:35 [facility] Radha Ferrer PharmD - 12/21/2016 8:55 AM PDT WARFARIN PER PHARMACY PROTOCOL: Subjective/Objective: Deborah Thomason is a 86 y.o. male admitted on 12/18/2016 for orthopedic surgery secondar y to femoral fracture. 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 Warfarin Dosing Nomogram Warfarin [...] Crossmatch Result Value Ref Range Product Code E6296F44 UNIT # [id number] UNIT ABO O UNIT RH POS CROSSMATCH INTERP Compatible Unit Status Transfused Blood Product [facility] OPOS Blood Product Expiration Date and Time Product Blood Type Barcode 5100 Product Code R7506K32 UNIT # [id number] UNIT ABO O UNIT RH POS CROSSMATCH INTERP Compatible Unit Status Crossmatched Blood Product [facility] OPOS Blood Product Expiration Date and [...] name, strength, and directions X Doctor's office: [facility] Medicine X Care Everywhere Vaccines [...] performed and electronically signed by Don Siu, Pasteurizing Machine Operator 12/20/2016 19:03 Jordan Ball, PharmOzzie [...] (HCC) 2012 (2013); 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 MedRec: [id number] PCP: Carlos Alberto Galeas MD Admission date: [...] Crossmatch Result Value Ref Range Product Code R4399T27 UNIT # [id number] UNIT ABO O UNIT RH POS CROSSMATCH INTERP Compatible Unit Status Crossmatched Blood Product [facility] Blood Product Expiration Date and Time Product Blood Type Barcode 5100 Product Code S4165L74 UNIT # [id number] UNIT ABO O UNIT RH POS CROSSMATCH INTERP Compatible Unit Status Crossmatched Blood Product [facility] Blood Product Expiration Date and Time [...] Plasma Result Value Ref Range Product Code U4852M99 UNIT # [id number] UNIT ABO O UNIT RH POS Unit Status Transfused Blood Product [facility] OPOS Blood Product Expiration Date and Time Product Blood Type Barcode 5100 Product Code V9802A21 UNIT # [id number] UNIT ABO O UNIT RH POS Unit Status Transfused Blood Product [facility] OPOS Blood Product Expiration Date and Time Product Blood Type Barcode 5100 Product Code C9642Y35 UNIT # [id number] UNIT ABO O UNIT RH POS Unit Status Transfused Blood Product [facility] OPOS Blood Product Expiration Date and Time Product Blood Type Barcode 5100 Product Code D6347D13 UNIT # [id number] UNIT ABO O UNIT RH POS Unit Status Crossmatched Blood Product [facility] OPOS Blood Product Expiration Date and Time Product Blood Type Barcode 5100 Xr Chest Pa Or Ap Result Date: 12/19/2016 External films for comparison only - no result from [facility]. Xr Femur Left 2+vw Result Date: 12/19/2016 [...] for comparison only - no result from [facility]. Xr Femur Right 2+vw Result Date: 12/19/2016 [...] for comparison only - no result from [facility]. Fl C-arm Stats No Charge Result Date: [...] as outlined above. Angel Hendrix 12/20/2016 10:20 [facility] Addendum Right basilar pneumonia. Lambert Smith MD [...] Crossmatch Result Value Ref Range Product Code E5885L55 UNIT # [id number] UNIT ABO O UNIT RH POS CROSSMATCH INTERP Compatible Unit Status Crossmatched Blood Product [facility] Blood Product Expiration Date and Time Product Blood Type Barcode 5100 Product Code X1147B28 UNIT # [id number] UNIT ABO O UNIT RH POS CROSSMATCH INTERP Compatible Unit Status Crossmatched Blood Product [facility] Blood Product Expiration Date and Time [...] Plasma Result Value Ref Range Product Code F5213U16 UNIT # [id number] UNIT ABO O UNIT RH POS Unit Status Transfused Blood Product [facility] OPOS Blood Product Expiration Date and Time Product Blood Type Barcode 5100 Product Code O8859S42 UNIT # [id number] UNIT ABO O UNIT RH POS Unit Status Transfused Blood Product [facility] OPOS Blood Product Expiration Date and Time Product Blood Type Barcode 5100 Product Code T0348S63 UNIT # [id number] UNIT ABO O UNIT RH POS Unit Status Transfused Blood Product [facility] OPOS Blood Product Expiration Date and Time Product Blood Type Barcode 5100 Product Code X1640F23 UNIT # [id number] UNIT ABO O UNIT RH POS Unit Status Crossmatched Blood Product [facility] OPOS Blood Product Expiration Date and [...] (HCC) 2012 (2013); 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 MedRec: [id number] PCP: Carlos Alberto Galeas MD Admission date: [...] m g daily. He follows with a balance wheel motion inspector in [place] Dr. Olivera at [facility]. He has a walker and a cane, usually uses his cane and lost his balance and fell backwards alycia satish both femurs and was seen in [facility] and sent to [place] after contacted Dr. Pricilla Pop He was noted have multiple skin tears. He denied that he passed out and denied any c hest pain or chest pressure. No headache. No hip pain but both femurs hurt, denied arthri tis. He has an incurable skin condition follows with technical services coordinator Dr. Anuja Kaminski. He use s what sounds like Kenalog cream. He has a remote history of mycoses fungoides diagnosed in [facility] probably 15 or 20 years ago. [...] ECGs available Confirmed by ROMERO FULLER MD ([id number]) on 12/19/2016 6:58:41 AM Protime INR Result Value Ref Range Xr Chest Pa Or Ap Result Date: 12/19/2016 External films for comparison only - no result from [facility]. Xr Femur Left 2+vw Result Date: 12/19/2016 External films for comparison only - no result from [facility]. Xr Femur Right 2+vw Result Date: 12/19/2016 External films for comparison only - no result from [facility]. ASSESSMENT and PLAN: Femur fracture, right as [...] as outlined above. Kamran Tom 12/19/2016 12:23 [facility] documented in t his encounter Plan of Treatment +--------+---------+ + + + | Date | Type | Specialty | Care Team | Description | +--------+---------+ + + + | 07/08/ | Office | Cardiology | Paolo Selby, | | | 2020 | Visit | | [address] | | | | | | [place] | | | | | | [address] | | | | | | | [...] [address] | [place] | [phone] | | [facility] | | [address] | | | - LABORATORY | | [...] | 1.19 | 0.60 - 1.30 | [facility] | | | | | mg/dL | [facility] | | | | | | MEDICAL | | | | | | CENTER - | | | | | | LABORATORY | | + + + + + + | eGFR if not | 58 (L)Comment: | >=60 | [place] | | | | GLOMERULAR FILTRATION | mL/min/1.73m2 | [facility] | | | [place] | RATE,ESTIMATED | | MEDICAL | | | | mL/min/1.20p4Nqkt than | | CENTER - | | [...] | 8.6 | 8.3 - 10.5 | [facility] | | | | | mg/dL | [facility] | | | | | | MEDICAL [...] + | [facility] | [address] | [place] | [phone] | | [facility] | | [address] | | | - LABORATORY | | [...] + | [facility] | [address] | [place], [place] | [phone] | | [facility] | | [address] | | | - LABORATORY | | [...] + + | Performing | Address | City/State/[facility] Cent[facility] | Phone Number | | Organization | | | | + + + + + | [facility] [facility] | [address] | [place] | [phone] | | [facility] | | [address] | | | - LABORATORY | | [...] (H) | 7 - 18 mg/dL | [place] | | | | | | [facility] | | | | | | MEDICAL | | | | | | CENTER - | | | | | | LABORATORY | | + + + + + + | Creatinine | 1.14 | 0.60 - 1.30 | [place] | | | | | mg/dL | [facility] | | | | | | MEDICAL | | | | | | CENTER - | | | | | | LABORATORY | | + + + + + + | eGFR if not | >60Comment: GLOMERULAR | >=60 | [place] | | | | FILTRATION | mL/min/1.73m2 | [facility] | | | [place] | RATE,ESTIMATED | | MEDICAL | | | | mL/min/1.34z6Vjap than | | CENTER - | | [...] + | [facility] | [address] | [place] | [phone] | | [facility] | | [address] | | | - LABORATORY | | [...] + | [facility] | [address] | [place] | [phone] | | [facility] | | [address] | | | - LABORATORY | | [...] + | [facility] | [address] | [place] | [phone] | | [facility] | | [address] | | | - LABORATORY | | [...] + | [facility] [facility] | [address] | [place], [place] | [phone] | | [facility] | | [address] | | | - LABORATORY | | [...] mL/min/1.73m2 | [facility] | | | [place] | RATE,ESTIMATED | | MEDICAL | | | | mL/min/1.03b1Wyuq than | | CENTER - | | [...] [address] | [place] | [phone] | | [facility] | | [address] | | | - LABORATORY | | [...] [address] | [place] | [phone] | | [facility] | | [address] | | | - LABORATORY | | | | + + + + + Red Blood Cells (PRBC) - Crossmatch (12/28/2016 7:41 AM PDT) + + + + + + | Component | Value | Ref Range | Performed | Pathologist | | | | | At | Signature | + + + + + + | Product | [id number] | | [facility] | | | Code | | | [facility] | | [facility] | | | | | | C[facility] - | | | | | | BLOOD BANK | | + + + + + + | UNIT # | [id number] | | [facility] | | | | [...] + + + + | Blood | [id number] | | [facility] | | | Product [...] + + + + | Product | [id number] | | [facility] | | | Code | | | [facility] | | [facility] | [facility] | | | | | | CENTER - | | | | | | BLOOD BANK | | + + + + + + | UNIT # | [id number] | | [facility] | | | | [...] + + + + | Blood | [id number] | | [facility] | | | Product | | | [facility] | | | Expiration | | | MEDICAL | | | Date and | | | CENTER - | | | Time | | | BLOOD BANK | | + + + + + + | Product | [id number] | | [facility] | | | Blood Type | | | [facility] | | | Barcode | | [...] St | [place] | | | [facility] | | [address] | | | - BLOOD BANK | [...] [address] | [place] | [phone] | | [facility] | | [address] | | | - LABORATORY | | [...] + + | Performing | Address | City/State/[facility] | Phone Number | | Organization | | | | + + + + + | [facility] | [address] | [place] | [phone] | | [facility] | | [address] | | | - LABORATORY | | [...] (H) | 7 - 18 mg/dL | [place] | | | | | | [facility] | | | | | | MEDICAL | | | | | | CENTER - | | | | | | LABORATORY | | + + + + + + | Creatinine | 1.21 | 0.60 - 1.30 | [place] [place] | | | | | mg/dL | [facility] | | | | | | MEDICAL | | | | | | CENTER - | | | | | | LABORATORY | | + + + + + + | eGFR if not | 57 (L)Comment: | >=60 | [place] | | | | GLOMERULAR FILTRATION | mL/min/1.73m2 | [facility] | | | [place] | RATE,ESTIMATED | | MEDICAL | | | | mL/min/1.49q6Btbe than | | CENTER - | | [...] [address] | [place] | [phone] | | [facility] | | [address] | | | - LABORATORY | | [...] [address] | [place] | [phone] | | [facility] | | [address] | | | - LABORATORY | | [...] [address] | [place] | [phone] | | [facility] | | [address] | | | - LABORATORY | | [...] mL/min/1.73m2 | [facility] | | | [place] | RATE,ESTIMATED | | MEDICAL | | | | mL/min/1.17y0Yvop than | | CENTER - | | [...] + | [facility] | [address] | [place] | [phone] | | [facility] | | [address] | | | - LABORATORY | | [...] [address] | [place] | [phone] | | 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 | | | DERIC BOWMAN, | | | [place] Age 86 year(s) | | | Interpreting MARGARET DUGAN | | | Director Of Quality Improvement RITCHIE | | | MARGARET | | | Gender Male | | | Nurse Stress | | | Director Paid Media Procedure Type of Study TTE procedure: ECHO [...] Volume: 74.41 ml | | | EF Veofftxsr68% Left Ventricle Diastolic | | | Dimension: [...] Volume: 74.41 ml | | | EF Piemurcuh13% | | | | | | Left [...] Number 459 | | DESTINY Patient Number [id number] Date of Study 12/26/2016 Visit | | Number [id number] Referring Physician CANDELARIO | | RAEF Number Date of 1930 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 | [place] | [phone] | | [facility] | | [address] | | | - LABORATORY | | | | + + + + + PRODUCT: Plasma (12/26/2016 7:15 AM PDT) + + + + + + | Component | Value | Ref Range | Performed | Pathologist | | | | | At | Signature | + + + + + + | Product | [id number] | | [facility] | | | Code | | | [facility] | | | | | | MEDICAL | | | | | | CENTER - | | | | | | BLOOD BANK | | + + + + + + | UNIT # | [id number] | | [facility] | | | | [...] + + + + | Blood | [id number] | | [facility] | | | Product [...] + + + + | Product | [id number] | | [facility] | | | Code | | | [facility] | | | | | | [facility] | | | | | | CENTER - | | | | | | BLOOD BANK | | + + + + + + | UNIT # | [id number] | | [facility] | | | | [...] + + + + | Blood | [id number] | | [facility] | | | Product [...] ST. | [address] | [place] | | | [facility] | | [address] | | | - BLOOD BANK | [...] ST. | [address] | [place], [place] | [phone] | | [facility] | | [address] | | | - LABORATORY | | [...] mL/min/1.73m2 | [facility] | | | [place] | RATE,ESTIMATED | | MEDICAL | | | | mL/min/1.30e1Diml than | | CENTER - | | [...] | 8.4 | 8.3 - 10.5 | [facility] | | | | | mg/dL | [...] + | [facility] | [address] | [place] | [phone] | | [facility] | | [address] | | | - LABORATORY | | [...] [address] | [place] | [phone] | | [facility] | | [address] | | | - LABORATORY | | [...] | | Iliofemoral vascular calcification is present. [employer] project | | | lateral to the [...] Iliofemoral vascular calcification is present. | | [place] project lateral to the hip and in [...] [address] | [place] | [phone] | | [facility] | | [address] | | | - LABORATORY | | [...] [address] | [place] | [phone] | | [facility] | | [address] | | | - LABORATORY | | [...] + | [facility] | [address] | [place] | [phone] | | [facility] | | [address] | | | - LABORATORY | | [...] [address] | [place] | [phone] | | [facility] | | [address] | | | - LABORATORY | | [...] | | | FILTRATION | mL/min/1.73m2 | [facility] | | | [place] | RATE,ESTIMATED | | MEDICAL | | | | mL/min/1.34e0Yroy than | | CENTER - | | [...] [address] | [place] | [phone] | | [facility] | | [address] | | | - LABORATORY | | [...] + | [facility] | [address] | [place] | [phone] | | [facility] | | [address] | | | - LABORATORY | | | | + + + + + Red Blood Cells (PRBC) - Crossmatch (12/25/2016 1:15 AM PDT) + + + + + + | Component | Value | Ref Range | Performed | Pathologist | | | | | At | Signature | + + + + + + | Product | [id number] | | [facility] | | | Code | | | [facility] | | | | | | MEDICAL | | | | | | CENTER - | | | | | | BLOOD BANK | | + + + + + + | UNIT # | [id number] | | [facility] | | | | [...] + + + + | Blood | [id number] | | [facility] | | | Product [...] St | [place] | | | [facility] | | [address] | | | - BLOOD BANK | [...] | | | | | g/dL | [facility] | | | | | | [...] [address] | [place] | [phone] | | [facility] | | [address] | | | - LABORATORY | | [...] - 1.030 | [facility] | | | [place], | | | [facility] | | [...] [address] | [place] | [phone] | | [facility] | | [address] | | | - LABORATORY | | [...] + | [facility] | [address] | [place] | | | [facility] | | [address] | | | - BLOOD BANK | [...] [address] | [place] | [phone] | | [facility] | | [address] | | | - LABORATORY | | [...] mL/min/1.73m2 | [facility] | | | [place] | RATE,ESTIMATED | | MEDICAL | | | | mL/min/1.64t3Jnkx than | | CENTER - | | [...] [address] | [place] | [phone] | | [facility] | | [address] | | | - LABORATORY | | [...] [address] | [place] | [phone] | | [facility] | | [address] | | | - LABORATORY | | [...] | | | | | g/dL | [facility] | | | | | | MEDICAL [...] [address] | [place] | [phone] | | [facility] | | [address] | | | - LABORATORY | | [...] [address] | [place] | [phone] | | [facility] | | [address] | | | - LABORATORY | | [...] [address] | [place] | [phone] | | [facility] | | [address] | | | - LABORATORY | | [...] mL/min/1.73m2 | [facility] | | | [place] | RATE,ESTIMATED | | MEDICAL | | | | mL/min/1.40u5Yysc than | | CENTER - | | [...] | | | | mg/dL | [facility] | | | | | | [...] + | [facility] | [address] | [place] | [phone] | | [facility] | | [address] | | | - LABORATORY | | | | + + + + + Red Blood Cells (PRBC) - Crossmatch (12/23/2016 1:15 AM PDT) + + + + + + | Component | Value | Ref Range | Performed | Pathologist | | | | | At | Signature | + + + + + + | Product | [id number] | | [facility] | | | Code | | | [facility] | | | | | | MEDICAL | | | | | | CENTER - | | | | | | BLOOD BANK | | + + + + + + | UNIT # | [id number] | | [facility] | | | | [...] + + + + | Blood | [id number] | | [facility] | | | Product [...] + + + + | Product | [id number] | | [facility] | | | Code | | | [facility] | | | | | | MEDICAL | | | | | | CENTER - | | | | | | BLOOD BANK | | + + + + + + | UNIT # | [id number] | | [facility] | | | | [...] + + + + | Blood | [id number] | | [facility] | | | Product [...] St | [place] | | | [facility] | | [address] | | | - BLOOD BANK | [...] [address] | [place] | [phone] | | [facility] | | [address] | | | - LABORATORY | | [...] | mL/min/1.73m2 | [facility] | | | [place] | RATE,ESTIMATED | | MEDICAL | | | | mL/min/1.38b5Ctfx than | | CENTER - | | [...] [address] | [place] | [phone] | | [facility] | | [address] | | | - LABORATORY | | [...] + | [facility] | [address] | [place] | [phone] | | [facility] | | [address] | | | - LABORATORY | | [...] + | [facility] | [address] | [place] | [phone] | | [facility] | | [address] | | | - LABORATORY | | [...] + + | Performing | Address | City/State/[facility] | Phone Number | | Organization [...] + + | Performing | Address | City/State/[facility]ode | Phone Number | | Organization | | | | + + + + + | [facility] | [address] | [place] | [phone] | | [facility] | | [address] | | | - LABORATORY | | [...] 16 | 7 - 18 mg/dL | [facility] | | | | | | [facility] | | | | | | MEDICAL | | | | | | CENTER - | | | | | | LABORATORY | | + + + + + + | Creatinine | 1.16 | 0.60 - 1.30 | [facility] | | | | | mg/dL | [facility] | | | | | | MEDICAL | | | | | | CENTER - | | | | | | LABORATORY | | + + + + + + | eGFR if not | 60Comment: GLOMERULAR | >=60 | [place] | | | | FILTRATION | mL/min/1.73m2 | [facility] | | | [place] | RATE,ESTIMATED | | MEDICAL | | | | mL/min/1.20r4Znfb than | | CENTER - | | [...] + | [facility] | [address] | [place] | [phone] | | [facility] | | [address] | | | - LABORATORY | | [...] + | [facility] | [address] | [place] | [phone] | | [facility] | | [address] | | | - LABORATORY | | [...] | | | | g/dL | [facility] | | | | | | [...] [address] | [place] | [phone] | | [facility] | | [address] | | | - LABORATORY | | [...] + | [facility] | [address] | [place] | [phone] | | [facility] | | [address] | | | - LABORATORY | | [...] + | [facility] | [address] | [place] | [phone] | | [facility] | | [address] | | | - LABORATORY | | [...] [address] | [place] | [phone] | | [facility] | | [address] | | | - LABORATORY | | [...] [address] | [place] | [phone] | | [facility] | | [address] | | | - LABORATORY | | [...] + | [facility] | [address] | [place] | [phone] | | [facility] | | [address] | | | - LABORATORY | | [...] [address] | [place] | [phone] | | [facility] | | [address] | | | - LABORATORY | | [...] [address] | [place] | [phone] | | [facility] | | [address] | | | - LABORATORY | | | | + + + + + PRODUCT: Plasma (12/20/2016 7:15 AM PDT) + + + + + + | Component | Value | Ref Range | Performed | Pathologist | | | | | At | Signature | + + + + + + | Product | [id number] | | [facility] | | | Code | | | [facility] | | | | | | MEDICAL | | | | | | CENTER - | | | | | | BLOOD BANK | | + + + + + + | UNIT # | [id number] | | [facility] | | | | [...] + + + + | Blood | [id number] | | [facility] | | | Product [...] + + + + | Product | [id number] | | [facility] | | | Code | | | [facility] | | [facility] | | | MEDICAL | | | | | | CENTER - | | | | | | BLOOD BANK | | + + + + + + | UNIT # | [id number] | | [facility] | | | | [...] + + + + | Blood | [id number] | | [facility] | | | Product [...] + + + + | Product | [id number] | | [facility] | | | Code | | | [facility] | | [facility] | | | MEDICAL | | | | | | CENTER - | | | | | | BLOOD BANK | | + + + + + + | UNIT # | [id number] | | [facility] | | | | [...] + + + + | Blood | [id number] | | [facility] | | | Product [...] + + + + | Product | [id number] | | [facility] | | | Code | | | [facility] | | | | | | MEDICAL | | | | | | CENTER - | | | | | | BLOOD BANK | | + + + + + + | UNIT # | [id number] | | [facility] | | | | [...] + + + + | Blood | [id number] | | [facility] | | | Product [...] St | [place] | | | [facility] | | [address] | | | - BLOOD BANK | [...] [address] | [place] | [phone] | | [facility] | | [address] | | | - LABORATORY | | [...] + | [facility] | [address] | [place] | [phone] | | [facility] | | [address] | | | - LABORATORY | | [...] mL/min/1.73m2 | [facility] | | | [place] | RATE,ESTIMATED | | MEDICAL | | | | mL/min/1.90b2Wqmy than | | CENTER - | | [...] [address] | [place] | [phone] | | [facility] | | [address] | | | - LABORATORY | | [...] [address] | [place] | [phone] | | [facility] | | [address] | | | - LABORATORY | | [...] + | [facility] | [address] | [place] | [phone] | | [facility] | | [address] | | | - LABORATORY | | [...] [address] | [place] | [phone] | | [facility] | | [address] | | | - LABORATORY | | [...] (H) | 7 - 18 mg/dL | [facility] | | | | | | [facility] | | | | | | MEDICAL | | | | | | CENTER - | | | | | | LABORATORY | | + + + + + + | Creatinine | 1.23 | 0.60 - 1.30 | [facility] | | | | | mg/dL | [facility] | | | | | | MEDICAL | | | | | | CENTER - | | | | | | LABORATORY | | + + + + + + | eGFR if not | 56 (L)Comment: | >=60 | [facility] | | | | GLOMERULAR FILTRATION | mL/min/1.73m2 | [facility] | | | [place] | RATE,ESTIMATED | | MEDICAL | | | | mL/min/1.00g0Dvuy than | | CENTER - | | [...] + | [facility] | [address] | [place] | [phone] | | [facility] | | [address] | | | - LABORATORY | | [...] [address] | [place] | [phone] | | [facility] | | [address] | | | - LABORATORY | | [...] + | [facility] | [address] | [place] | | | [facility] | | [address] | | | - BLOOD BANK | [...] [address] | [place] | [phone] | | [facility] | | [address] | | | - LABORATORY | | [...] | | | | ROMERO FULLER MD ([id number]) | | | | | | on [...] | times per day), First dose on [facility] | | | | | | | [...] | | | | | TITRATED, Starting [facility] 12/27/16 at | | | | | [...] | | | | | dose on [facility] 12/27/16 at 1015 | | | | [...] | | | over 1 Hours, ONCE, [facility] 12/20/16 | | AM PDT | | [...]
--- OUTSIDE RECORDS SUMMARY | ~2019-11-20 | XMS | Encounter Summary ---
Demographics + + + | Address | [address] | | | [place] [address] | + + + | Home Phone | | + + + | Preferred Language | Unknown | + + + | Marital Status | | + + + | Anabaptism Affiliation | Unknown | + + + | Race | Unknown | + + + | Ethnic Group | Unknown | + + + Author + + + | Author | [facility] | | | and Eduardana | + + + | Organization | [facility] | | | and Eduardana [...] [place] | | | | | [address] | | + + + + + Care Team Providers + +------+ + | Care Improvement Specialist Name | Role | Phone | [...] + + | 03/12/ | Office | [facility] | Valente Silvestre, | Interstitial lung | | 2018 | Visit | PULMONARY [address] | MD [address] | disease (HCC) | | | | [place], | [place] | | | | | [place] [address] | [address] | | | | | [phone] | | | +--------+---------+ + + + [...] This could be your family doctor or horticultural therapist. Major Gifts Officer.This is doctor who specializes in treatinglung problems. Respiratory therapist. This person givestreatment and support for people with lung dis ease. button station worker. This person helps with your daily needs and family life, accessing commun [employer] resources, counseling services, and stress management. Date Last Reviewed: 09/19/201619990901-4392 [employer] [place] [address]. All righ ts reserved. This information is [...] to receive therapy for atrial fibrillation. 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 PVD (peripheral vascular disease) ([facility]) 02/06/2018 Urinary retention Allergies: Allergies Allergen Reactions [...] 15.7 oz) | SpO2 99% | B MD 25.79 kg/m Appearance: Alert, cooperative, no distress, [...] | | | | | [place], [place] | | | | | | [address] | | | | | | | | +--------+---------+ + + + documented as of this encounter Visit Diagnoses + + | Diagnosis | + + | Interstitial lung disease (HCC) Postinflammatory pulmonary fibrosis | + + documented in this encounter
--- OUTSIDE RECORDS SUMMARY | ~2019-11-20 | XMS | Encounter Summary ---
Demographics + + + | Address | [address] | | | [place] [address] | + + + | Home Phone | | + + + | Preferred Language | Unknown | + + + | Marital Status | | + + + | Scientologist Affiliation | Unknown | + + + | Race | Unknown | + + + | Ethnic Group | Unknown | + + + Author + + + | Author | [facility] | | | and Eduardana | + + + | Organization | [facility] | | | and [...] [place] | | | | | [address] | | + + + + + Care Team Providers + +------+ + | Care Test Carrier Name | Role | Phone | + [...] | steal | MD, FACS | [place] | | | | | syndrome | [address] | [place], | | | | | 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[place] | [place] [address] | | | | | carotid | [place], [place] | Phone: | | | | | artery, | [address] | [phone] | | | | | unspecified | Phone: | Fax: | | | | | laterality | [phone] | [phone] | | | | | Peripheral | Fax: | | | | | | arterial | [phone] | | | | | | disease | | | | | | | (HCC) | | | | | | | Procedures | | | | | | | MI IV | | | | | | | INFUSION, | | | | | | | HYDRATION, | | | | | | | 31-60 MIN | | | | | | | MI IV | | | | | | | INFUSION, | | | | | | | HYDRATION, | | | | | | | EA ADD HOUR | | | | | | | MI NORMAL | | | | | | [...] + + | 02/18/ | Hospital | [facility] | Michael Alston | 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 [...] | | | | | [place], [place] | | | | | | [address] | | | | | | | [...]
--- OUTSIDE RECORDS SUMMARY | ~2019-11-20 | XMS | Encounter Summary ---
Demographics + + + | Address | [address] | | | [place] [address] | + + + | Home Phone [...] Organization | [facility] | | | and [...] | [place] | | | | | [address] | | + + + + + Care Team Providers + +------+ + | Care Family Manager Name | Role | Phone | [...] | | | [address] [place] | [place] [address] | | | | | [place] [address] | | | | | | [phone] | | | +--------+ + + + [...] [place] | | | | | | [address] | | | | | | | [...]
--- OUTSIDE RECORDS SUMMARY | ~2019-11-20 | XMS | Encounter Summary ---
Demographics + + + | Address | [address] | | | [place] [address] | + + + | Home Phone [...] | Organization | [facility] | | | and Eduardana [...] [place] | | | | | [address] | | + + + + + Care Team Providers + +------+ + | Care Cloth Folder Hand Name | Role | Phone | + +------+ + | Carlos Alberto Galeas MD | PCP | | + +------+ + Reason for Visit +--------+ + | Reason | Comments | +--------+ + | Other | LEFT WITHOUT BEING SEEN | +--------+ + Encounter Details +--------+---------+ + + + | Date | Type | Department | Care Team | Description | +--------+---------+ + + + | 12/30/ | Office | [facility] | Michael Alston | Patient left without | | 2019 | Visit | SURGERY [address] | MD Dante, FACS [address] | being seen (Primary | | | | [place], [place] | [address] [facility] | Dx) | | | | [address] | [place] [address] | | | | | [phone] | [phone] | | | | | | | [...] + + + | Blood Pressure | 108/52 | 12/30/2018 1:48 PM | | | | | PDT | | + + + + + | Pulse | 91 | 12/30/2018 1:48 PM | | | | | PDT | | + + + + + | Temperature | 36.4 C (97.5 F) | 12/30/2018 1:48 PM | | | | | PDT | | + + + + + | Respiratory Rate | - | - | | + + + + + | Oxygen Saturation | 95% | 12/30/2018 1:48 PM | | | | | PDT | | + + + + + | Inhaled Oxygen | - | - | | | Concentration | | | | + + + + + | Weight | 71 kg (156 lb 8.4 | 12/30/2018 1:48 PM | | | | oz) | PDT | | + + + + + | Height | 165.1 cm (5' 5") | 12/30/2018 1:48 PM | | | | | PDT | | + + + + + | Body Mass Index | 26.05 | 12/30/2018 1:48 PM | | | | | PDT [...] documented as of this encounter Progress Notes Alexsandra Fraire CMA - 12/30/2018 2:00 PM PDTPATIENT WAS NO SEEN, PROVIDER IN THE OR. CATHY ENT RESCHEDULED TO 12/31/2018 documented in this encounter Plan of Treatment +--------+---------+ + + + | Date | Type | Specialty | Care Team | Description | +--------+---------+ + + + | 01/26/ | Office | Cardiology | Paolo Selby, | | | 2019 | Visit | | MD Marjan MARINELLI | | | | | | [address] [place] | | | | | | [id number] | | | | | | | | +--------+---------+ + + + documented as of this encounter Visit Diagnoses + + | Diagnosis | + + | Patient left without being seen - Primary Surgical or other procedure not carried out | | because of patient's decision | + + documented in this encounter
--- OUTSIDE RECORDS SUMMARY | ~2019-11-20 | XMS | Encounter Summary ---
Demographics + + + | Address | [address] | | | [place] [address] | + + + | Home Phone | | + + + | Preferred Language | Unknown | + + + | Marital Status | | + + + | Druze Affiliation | Unknown | + + + | Race | Unknown | + + + | Ethnic Group | Unknown | + + + Author + + + | Author | [facility] | | | and Eduardana | + + + | Organization | [facility] | | | [...] [place] | | | | | [address] | | + + + + + Care Team Providers + +------+ + | Care Motor Patrol Operator Name | Role | Phone | [...] + + | 09/10/ | Preadmit | [facility] | Osmin Garber MD | | | 2019 | Visit | CENTER PREADMIT | [address] | | | | | CLINIC [address] | [facility] [facility] | | | | | [place] | [place] [address] | | | | | [address] | [phone] | | | | | [phone] | | | +--------+ + + + [...] for the 09/10/19 encounter (Preadmit Visit) with [facility] ROOM 1 Medication Sig Instructions Ascorbic [...] sent through Care Everywhere.Bypass Surgery, Peripheral Artery (Japanese)documented in this encounter Plan of Treatment +--------+---------+ + + + | Date | Type | Specialty | Care Team | Description | +--------+---------+ + + + | 01/26/ | Office | Cardiology | Paolo Selby, | | | 2019 | Visit | | [address] | | | | | | [place] | | | | | | [address] | | | | | | | [...] | | | Absolute | performed at [facility];[address] | [address] | LABORATORY | | | | [address];[place], [place] | | | | | | [address] | | | | + + + + + + + + | Specimen | + + | Blood | + + + + + + + | Performing | Address | City/State/Zipcode | Phone Number | | Organization | | | | + + + + + | [facility] | [address] | [place] [address] | [phone] | + + + + + Type [...] + + + | BB BAND | [id number] | | [facility] | | | | | | LABORATORY | | + + + + + + | BB BAND | Testing performed at | | [facility] | | | | [facility];[address] | LABORATORY | | | | [address];[place] [address] | | | | + + + + + + + + | Specimen | + + | Blood | + + + + + + + | Performing | Address | City/State/Zipcode | Phone Number | | Organization | | | | + + + + + | [facility] | [address] | [place] [address] | [phone] | + + + + + MRSA [...] ROOPA | | | | performed at [facility];[address] | | LABORATORY | | | | [address];[place] | | | | | | [address] | | | | + + + [...] | [address] | [place] [address] | [phone] | + + + + + Basic [...] | | | | | performed at [facility];[address] | | [address];[place] | | | | | | [address] | | | | + + + + + + + + | Specimen | + + | Blood | + + + + + + + | Performing | Address | City/State/Zipcode | Phone Number | | Organization | | | | + + + + + | [facility] | [address] | [place] [address] | [phone] | + + + + + documented in this encounter Visit Diagnoses Not on filedocumented in this encounter
--- OUTSIDE RECORDS SUMMARY | ~2019-11-20 | XMS | Encounter Summary ---
Demographics + + + | Address | [address] | | | [place] [address] | + + + | Home Phone | | + + + | Preferred Language | Unknown | + + + | Marital Status | | + + + | Jain Affiliation | Unknown | + + + | Race | Unknown | + + + | Ethnic Group | Unknown | + + + Author + + + | Author | [facility] | | | and Eduardana | + + + | Organization | [facility] | | | and Eduardana [...] [place] | | | | | [address] | | + + + + + Care Team Providers + +------+ + | Care Administration Internship Name | Role | Phone | + [...] + + | 09/10/ | Telephone | [facility] | Osmin Garber MD | Pre-Op | | 2020 | | CENTER CV INTRA OP | [address] | | | | | [address] | [place] [facility] | | | | | [place], [place] | [place] [address] | | | | | [address] | [phone] | | | | | [phone] | | | +--------+ + + + [...] [place] | | | | | | [address] | | | | | | | | +--------+---------+ + + + documented as of this encounter Visit Diagnoses Not on filedocumented in this encounter"
--- OUTSIDE RECORDS SUMMARY | ~2019-11-20 | XMS | Encounter Summary ---
Demographics + + + | Address | [address] | | | [place] [address] | + + + | Home Phone | | + + + | Preferred Language | Unknown | + + + | Marital Status | | + + + | Episcopalian Affiliation | Unknown | + + + | Race | Unknown | + + + | Ethnic Group | Unknown | + + + Author + + + | Author | [facility] | | | and Eduardana | + + + | Organization | [facility] | | [...] | [place] | | | | | [address] | | + + + + + Care Team Providers + +------+ + | Care Public Health Veterinarian Name | Role | Phone | + [...] | | | [address] [place] | [place] [address] | | | | | [place] [address] | | | | | | [phone] | | | +--------+ + + + [...] | | | | | [place], [place] | | | | | | [address] | | | | | | | [...]
--- OUTSIDE RECORDS SUMMARY | ~2019-11-20 | XMS | Encounter Summary ---
Demographics + + + | Address | [address] | | | [place] [address] | + + + | Home Phone | | + + + | Preferred Language | Unknown | + + + | Marital Status | | + + + | Quaker Affiliation | Unknown | + + + | Race | Unknown | + + + | Ethnic Group | Unknown | + + + Author + + + | Author | [facility] | | | and Eduardana | + + + | Organization | [facility] | | | and [...] [place] | | | | | [address] | | + + + + + Care Team Providers + +------+ + | Care Muffle Worker Name | Role | Phone | [...] + + | 12/22/ | Telephone | [facility] | Michael Alston | Follow-up (needs | | 2019 | | SURGERY [address] | MD Dante, FACS [address] | imaging prior to | | | | [place], [place] | [address] [facility] | follow up) | | | | [address] | [place] [address] | | | | | [phone] | [phone] | | | | | | | [...] | 2019 | Visit | | MD aMrjan MARINELLI | | | | | | [place] | | | | | | [address] | | | | | | | | +--------+---------+ + + + documented as of this encounter Visit Diagnoses Not on filedocumented in this encounter"
--- OUTSIDE RECORDS SUMMARY | ~2019-11-20 | XMS | Encounter Summary ---
Demographics + + + | Address | [address] | | | [place] [address] | + + + | Home Phone [...] | Organization | [facility] | [...] [place] | | | | | [address] | | + + + + + Care Team Providers + +------+ + | Care Bail Bonding Agent Name | Role | Phone | + +------+ + | Carlos Alberto Galeas MD | PCP | | + +------+ + Encounter Details +--------+ + + + + | Date | Type | Department | Care Team | Description | +--------+ + + + + | 12/19/ | Imaging | [facility] | Provider, | | | 2017 | Exam | [facility] EXTERNAL | MD [address] | | | | | IMAGING [address] | [address]oni [address] [place] | | | | | [address] [place] | [place] [address] | | | | | [place] [address] | | | | | | [phone] | | | +--------+ + + + + Social History + +-------+ +--------+------+ | Tobacco Use | Types | Packs/Day | Years | Date | | | | | Used | | + +-------+ +--------+------+ | Never Assessed | | | | | + +-------+ +--------+------+ + + +---------+ + | Alcohol Use [...] | | | | | [place] | | | | | | [address] | | | | | | | [...] documented in this encounter Results XR Chest PA or AP (12/18/2016 5:50 PM PDT) + + | Specimen | + + | | + + + + + | Narrative | Performed At | + + + | External films for comparison only - no result from [place]. | [facility] | + + + + +---------+ + + | Performing | Address | City/State/Zipcode | Phone Number | | Organization | | | | + +---------+ + + | [facility] | | | | + +---------+ + + documented in this encounter Visit Diagnoses Not on filedocumented in this encounter"
--- OUTSIDE RECORDS SUMMARY | ~2019-11-20 | XMS | Encounter Summary ---
Demographics + + + | Address | [address] | | | [place] [address] | + + + | Home Phone | | + + + | Preferred Language | Unknown | + + + | Marital Status | | + + + | Amish Affiliation | Unknown | + + + | Race | Unknown | + + + | Ethnic Group | Unknown | + + + Author + + + | Author | [facility] | | | and Eduardana | + + + | Organization | [facility] | | | and [...] [place] | | | | | [address] | | + + + + + Care Team Providers + +------+ + | Care Pipe Maker Name | Role | Phone | + +------+ + | Carlos Alberto Galeas MD | PCP | | + +------+ + Encounter Details +--------+ + + + + | Date | Type | Department | Care Team | Description | +--------+ + + + + | 02/03/ | Hospital | [facility] | Carlos Alberto Galeas | Peripheral vascular | | 2018 | Encounter | MED CTR ULTRASOUND | MD Dylan [address] | disease, unspecified | | | | [address] | [place] | ([facility]) | | | | [place] | [place] [address] | | | | | [address] | [phone] | | | | | [phone] | | | | | | | [...] | | | | | | [facility] [place] | | | | | | [address] | | | | | | | [...]
--- OUTSIDE RECORDS SUMMARY | ~2019-11-20 | XMS | Encounter Summary ---
Demographics + + + | Address | [address] | | | [place] [address] | + + + | Home Phone [...] + | Organization | [facility] | | | and [...] [place] | | | | | [address] | | + + + + + Care Team Providers + +------+ + | Care Sign Painter Apprentice Name | Role | Phone | + [...] | | | | Subclavian | Michael Howell, | [place] | | | | | steal | MD, FACS | [place], | | | | | syndrome | [address] | [place] [address] | | | | | 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[place] | Phone: | | | | | carotid | [place], [place] | [phone] | | | | | artery, | [address] | Fax: | | | | | unspecified | Phone: | [phone] | | | | | laterality | [phone] | | | | | | Peripheral | Fax: | | | | | | arterial | [phone] | | | | | | disease [...] | Subclavian | Michael I, | [address] [place] | | | | | steal | MD, FACS | [place], | | | | | syndrome | [address] | [place] [address] | | | | | 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[place] | Phone: | | | | | carotid | [place], [place] | [phone] | | | | | artery, | [address] | Fax: | | | | | unspecified | Phone: | [phone] | | | | | laterality | [phone] | | | | | | Peripheral | Fax: | | | | | | arterial | [phone] | | | | | | disease [...] + + | 02/18/ | Hospital | [facility] | Michael Alston | 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 [...] [place] | | | | | | [address] | | | | | | | [...] The parapharyngeal, retropharyngeal, and | | | ware cleaner spaces are normal. Complete fatty atrophy of [...] | | left proximal ICA (series 4, [id number] and coronal series 602, image 70).Vertebrals: Left [...] nodularity as well as numerous | | ixjk-lu-vjhtraocot opacities seen throughout both lungs with relative [...] of groundglass nodularity as well as numerous txlj-qb-nbaxuitsbw | | opacities seen throughout both lungs [...] iohexol (OMNIPAQUE 350) 350 | Given | 02/18/ | 150 mLs | | | | [...] | | | | | | Starting 02/18/18 at 1128, For | | | | | | | 1 dose, Radiology | | | | | | + +------+ +--------+-------+---+ +---+---+ | | | +---+---+ documented in this encounter"
--- OUTSIDE RECORDS SUMMARY | ~2019-11-20 | XMS | Encounter Summary ---
Demographics + + + | Address | [address] | | | [place] [address] | + + + | Home Phone | | + + + | Preferred Language | Unknown | + + + | Marital Status | | + + + | Episcopal Affiliation | Unknown | + + + | Race | Unknown | + + + | Ethnic Group | Unknown | + + + Author + + + | Author | [facility] | | | and Eduardana | + + + | Organization | [facility] | | | and Eduardana | + + + | Address | Unknown | + + + | Phone | Unavailable | + + + Support + + + + + | Name | Relationship | Address | Phone | + + + + + | Rivka Thomason | ECON | | | | | | [place] | | | | | [address] | | + + + + + Care Team Providers + +------+ + | Care Iuss Master Analyst Name | Role | Phone | [...] | | | | | | | ([facility]) | | | | | [...] + + | 09/11/ | Anesthesia | [facility] | Stephen Silva | | | 2019 | [facility] | BOBBY Carcamo [address] | | | | | OPERATING RO[address] | [address] | | | | | [address] | [place], [place] | | | | | [place], [place] | [address] | | | | | [address] | [phone] | | | | | [phone] | | | +--------+ + + + + Anesthesia Record + + + + + | Procedure Name | Responsible | Anesthesia Start | Anesthesia Stop Time | | | Anesthesiologist | Time | | + + + + + | ENDARTERECTOMY | Stephen Carcamo | 09/11/19 0723 | 09/11/19 1210 | | FEMORAL (Left | Gavel, SERVICE TRANSFORMER REPAIR SUPERVISOR | | | | Femoral Artery) | | | | + + + + + +----+---+ + + | Da | T | Event | Comment | | te | i | | | | | m | | | | | e | | | +----+---+ + + | 02 | 0 | | | | /2 | 6 | | | | 1/ | 3 | | | | 20 | 6 | | | | 20 | | | | +----+---+ + + | | 0 | An Start | Reassessment prior to anesthesia induction/procedure. | | | 7 | | | | | 2 | | | | | 3 | | | +----+---+ + + | | 0 | Antibiotic | | | | 7 | Given | | | | 3 | | | | | 0 | | | +----+---+ + + | | 0 | An | | | | 7 | Induction | | | | 3 | | | | | 0 | | | +----+---+ + + | | 0 | An | | | | 7 | Intubation | | | | 3 | | | | | 0 | | | +----+---+ + + | | 0 | First | | | | 7 | Inc/Proc St | | | | 5 | | | | | 3 | | | +----+---+ + + | | 1 | Extubation/ | | | | 1 | Airway LDA | | | | 5 | Removal | | | | 6 | | | +----+---+ + + | | 1 | an stop | | | | 2 | data | | | | 0 | | | | | 3 | | | +----+---+ + + | | 1 | An Stop | Patient handed off to recovery nurse. | | | 1 | | | | | 0 | | | +----+---+ + + +------+ | Meds | +------+ + + + | Name | Total | + + + | fentaNYL | 100 mcg | + + + | lidocaine 2% | 100 mg | + + + | propofol | 50 mg | + + + | rocuronium | 50 mg | + + + | succinylcholine | 100 mg | + + + | ondansetron | 4 mg | + + + | phenylephrine | 1,000 mcg | + + + | neostigmine | 3 mg | + + + | glycopyrrolate | 0.4 mg | + + + | clindamycin in dextrose (CLEOCIN) | 900 mg | | IVPB 900 mg | | + + + | etomidate | 20 mg | + + + | heparin | 10,000 Units | + + + | phenylephrine | 27,450 mcg | + + + | EPINEPHrine 0.1 mg/mL | 0.01 mg | + + + | esmolol | 30 mg | + + + | metoprolol | 5 mg | + + + | dexamethasone | 1 mg | + + + | sodium chloride 0.9% (NS) | 1,700 mL | | infusion | | + + + +---------+ | Name | +---------+ | Insp O2 | +---------+ | Exp N2O | +---------+ | Exp SEV | +---------+ + + | No blood administrations on file. | + + +--------+ + + + | Type | Details | Placement | Removal | +--------+ + + + | Wound | 09/11/19; 721; Y; Other; Left; | 09/11/19 07 by | 09/20/19 1408 by | | | lateral; foot; abrasion; | Calvin Young RN | Medina Pitts RN | | | 09/20/19; 1408 | | | +--------+ + + + | Airway | Placement Date: 09/11/19; | 09/11/19729 by | 09/11/19 1156 by | | | Placement Time: 729 (created via | Stephen Carcamo | Stephen Carcamo | | | procedure documentation); Mask | Shira, SERVICE TRANSFORMER REPAIR SUPERVISOR | XulBOBBY | | | Ventilation: EZ; Airway Grade: | | | | | 2a; Successful Technique: Vance; | | | | | Laryngoscope Blade Size: 2; | | | | | Attempts: 1; Airway Type: | | | | | endotracheal; Size: 7; Airway | | | | | Tube Secured At: 22; Trauma: | | | | | none; Other Equipment: stylette; | | | | | Placement Check: exhaled CO2 | | | | | detection device, bilateral chest | | | | | rise; Removal Date: 09/11/19; | | | | | Removal Time: 1156 | | | +--------+ + + + | Wound | 09/11/19; 1157; Incision; Left; | 09/11/19 1157 by | 09/20/19 1409 by | | | jakub; 09/20/19; 1409 | Kristina Escobar RN | Medina Pitts RN | +--------+ + + + documented in this encounter Social History + +-------+ +--------+ + | [...] | 2019 | Visit | | [address] | | | | | | [place] | | | | | | [address] | | | | | | | [...] + + documented in this encounter Results Airway (09/11/2019 8:02 AM PST) + + [...] medication documentation. | | + + + documented in this encounter Visit Diagnoses Not on filedocumented in this encounter Administered Medications + +--------+ +--------+------+------+ | Medication Order | MAR | Action | Dose | Rate | Site | | | Action | Date | | | | + +--------+ +--------+------+------+ | clindamycin in dextrose | Given | 09/11/19 | 900 mg | | | | (CLEOCIN) IVPB 900 mg 900 mg, | | 20 7:33 | | | | | Intravenous, Administer over 60 | | AM PST | | | | | Minutes, ONCE, 09/11/19 at | | | | | | | 0730, For 1 dose, Indications: | | | | | | | Surgical Prophylaxis | | | | | | + +--------+ +--------+------+------+ +---+---+ | | | +---+---+ + +-------+ +------+---+---+ | dexamethasone (DECADRON) 4 | Given | 09/11/19 | 1 mg | | | | mg/mL injection Intravenous, | | 20 11:37 | | | | | PRN, Starting Sat09/11/19 at | | AM PST | | | | | 1137, Anesthesia Intra-op | | | | | | + +-------+ +------+---+---+ +---+---+ | | | +---+---+ + +-------+ +---------+---+---+ | EPINEPHrine 0.1 mg/mL syringe | Given | 09/11/19 | 0.01 mg | | | | Intravenous, PRN, Starting Fri | | 8:39 | | | | | 09/11/19 at 0839, Anesthesia | | AM PST | | | | | Intra-op | | | | | | + +-------+ +---------+---+---+ +---+---+ | | | +---+---+ + +-------+ +-------+---+---+ | esmolol (BREVIBLOC) 10 mg/mL | Given | 09/11/19 | 30 mg | | | | injection Intravenous, PRN, | | 20 8:45 | | | | | Starting 09/11/19 at 0845, | | AM PST | | | | | Anesthesia Intra-op | | | | | | + +-------+ +-------+---+---+ +---+---+ | | | +---+---+ + +-------+ +-------+---+---+ | etomidate (AMIDATE) injection | Given | 09/11/19 | 20 mg | | | | Intravenous, PRN, Starting Fri | | 20 7:30 | | | | | 09/11/19 at 0730, Anesthesia | | AM PST | | | | | Intra-op | | | | | | + +-------+ +-------+---+---+ +---+---+ | | | +---+---+ + +-------+ +--------+---+---+ | fentaNYL (PF) injection | Given | 09/11/19 | 50 mcg | | | | Intravenous, PRN, Starting Fri | | 20 11:38 | | | | | 09/11/19 at 0830, Anesthesia | | AM PST | | | | | Intra-op | | | | | | + +-------+ +--------+---+---+ +-------+ +--------+---+---+ | Given | 09/11/19 | 25 mcg | | | | | 20 10:45 | | | | | | AM PST | | | | +-------+ +--------+---+---+ | Given | 09/11/19 | 25 mcg | | | | | 20 8:30 | | | | | | AM PST | | | | +-------+ +--------+---+---+ +---+---+ | | | +---+---+ + +-------+ +--------+---+---+ | glycopyrrolate (HELGA) | Given | 09/11/19 | 0.4 mg | | | | injection Intravenous, PRN, | | 20 11:45 | | | | | Starting 09/11/19 at 1145, | | AM PST | | | | | Anesthesia Intra-op | | | | | | + +-------+ +--------+---+---+ +---+---+ | | | +---+---+ + +-------+ +--------+---+---+ | heparin 1,000 units/mL | Given | 09/11/19 | 1,000 | | | | injection Intravenous, PRN, | | 20 11:08 | Units | | | | Starting 09/11/19 at 0841, | | AM PST | | | | | Anesthesia Intra-op | | | | | | + +-------+ +--------+---+---+ +-------+ +--------+---+---+ | Given | 09/11/19 | 2,000 | | | | | 20 10:15 | Units | | | | | AM PST | | | | +-------+ +--------+---+---+ | Given | 09/11/19 | 2,000 | | | | | 20 9:12 | Units | | | | | AM PST | | | | +-------+ +--------+---+---+ +---+---+ | | | +---+---+ + +-------+ +--------+---+---+ | lidocaine (PF) 2% injection | Given | 09/11/19 | 100 mg | | | | Intravenous, PRN, Starting Fri | | 20 7:30 | | | | | 09/11/19 at 0730, Anesthesia | | AM PST | | | | | Intra-op | | | | | | + +-------+ +--------+---+---+ +---+---+ | | | +---+---+ + +-------+ +--------+---+---+ | metoprolol tartrate (LOPRESSOR) | Given | 09/11/19 | 2.5 mg | | | | injection Intravenous, PRN, | | 20 12:13 | | | | | Starting 09/11/19 at 0845, | | PM PST | | | | | Anesthesia Intra-op | | | | | | + +-------+ +--------+---+---+ +-------+ +--------+---+---+ | Given | 09/11/19 | 2.5 mg | | | | | 20 8:45 | | | | | | AM PST | | | | +-------+ +--------+---+---+ +---+---+ | | | +---+---+ + +-------+ +------+---+---+ | neostigmine (BLOXIVERZ) 1 mg/mL | Given | 09/11/19 | 3 mg | | | | injection Intravenous, PRN, | | 20 11:45 | | | | | Starting 09/11/19 at 1145, | | AM PST | | | | | Anesthesia Intra-op | | | | | | + +-------+ +------+---+---+ +---+---+ | | | +---+---+ + +-------+ +------+---+---+ | ondansetron (ZOFRAN) injection | Given | 09/11/19 | 4 mg | | | | Intravenous, PRN, Starting Fri | | 20 11:37 | | | | | 09/11/19 at 1137, Anesthesia | | AM PST | | | | | Intra-op | | | | | | + +-------+ +------+---+---+ +---+---+ | | | +---+---+ + +-------+ +---------+---+---+ | phenylephrine (NEEL-SYNEPHRINE, | Given | 09/11/19 | 200 mcg | | | | VAZCULEP) 10 mg per mL injection | | 20 9:30 | | | | | Intravenous, PRN, Starting Fri | | AM PST | | | | | 09/11/19 at 0730, Anesthesia | | | | | | | Intra-op | | | | | | + +-------+ +---------+---+---+ +-------+ +---------+---+---+ | Given | 09/11/19 | 200 mcg | | | | | 20 9:15 | | | | | | AM PST | | | | +-------+ +---------+---+---+ | Given | 09/11/19 | 200 mcg | | | | | 20 8:39 | | | | | | AM PST | | | | +-------+ +---------+---+---+ +---+---+ | | | +---+---+ + + + +---------+-------+---+ | phenylephrine (NEEL-SYNEPHRINE, | Rate/Dos | 09/11/19 | 100 | 0.6 | | | VAZCULEP) 10 mg/mL injection | e Change | 20 7:41 | mcg/min | mL/hr | | | Intravenous, CONTINUOUS PRN, | | AM PST | | | | | Starting 09/11/19 at 0730, | | | | | | | Anesthesia Intra-op | | | | | | + + + +---------+-------+---+ +---------+ +---------+-------+---+ | New Bag | 09/11/19 | 50 | 0.3 | | | | 20 7:30 | mcg/min | mL/hr | | | | AM PST | | | | +---------+ +---------+-------+---+ +---+---+ | | | +---+---+ + +-------+ +-------+---+---+ | propofol (DIPRIVAN) injection | Given | 09/11/19 | 50 mg | | | | Intravenous, PRN, Starting Fri | | 20 7:30 | | | | | 09/11/19 at 0730, Anesthesia | | AM PST | | | | | Intra-op | | | | | | + +-------+ +-------+---+---+ +---+---+ | | | +---+---+ + +-------+ +-------+---+---+ | rocuronium (ZEMURON) injection | Given | 09/11/19 | 10 mg | | | | Intravenous, PRN, Starting Fri | | 20 10:47 | | | | | 09/11/19 at 0737, Anesthesia | | AM PST | | | | | Intra-op | | | | | | + +-------+ +-------+---+---+ +-------+ +-------+---+---+ | Given | 09/11/19 | 10 mg | | | | | 20 8:38 | | | | | | AM PST | | | | +-------+ +-------+---+---+ | Given | 09/11/19 | 10 mg | | | | | 20 7:54 | | | | | | AM PST | | | | +-------+ +-------+---+---+ +---+---+ | | | +---+---+ + +---------+ +---+---+---+ | sodium chloride 0.9% (NS) | New Bag | 09/11/19 | | | | | infusion at 100 mL/hr, | | 20 9:45 | | | | | Intravenous, CONTINUOUS, Starting | | AM PST | | | | | 09/11/19 at 0615, Pre-op | | | | | | + +---------+ +---+---+---+ +---------+ +---+---+---+ | New Bag | 09/11/19 | | | | | | 20 6:55 | | | | | | AM PST | | | | +---------+ +---+---+---+ +---+---+ | | | +---+---+ + +-------+ +--------+---+---+ | succinylcholine (ANECTINE) | Given | 09/11/19 | 100 mg | | | | injection Intravenous, PRN, | | 20 7:30 | | | | | Starting 09/11/19 at 0730, | | AM PST | | | | | Anesthesia Intra-op | | | | | | + +-------+ +--------+---+---+ +---+---+ | | | +---+---+ documented in this encounter"
--- OUTSIDE RECORDS SUMMARY | ~2019-11-20 | XMS | Encounter Summary ---
Demographics + + + | Address | [address] | | | [place] [address] | + + + | Home Phone [...] Organization | [facility] | | | and Eduardana | [...] [place] | | | | | [address] | | + + + + + Care Team Providers + +------+ + | Care Bottling Equipment Sales Representative Name | Role | Phone | + +------+ + | Carlos Alberto Galeas MD | PCP | | + +------+ + Encounter Details +--------+ + + + + | Date | Type | Department | Care Team | Description | +--------+ + + + + | 12/06/ | Hospital | [facility] | Max Delaney | Atheroscler of | | 2017 | Encounter | MED CTR ULTRASOUND | MD Sara [address] | skull valley artery of | | | | [address] [place] | [address] | right leg with | | | | [place], [place] | [place] [address] | intermit | | | | [address] | [phone] | claudication (HCC) | | | | [phone] | | | | | | | [...] | | | | | [address] [place], [place] | | | | | | [address] | | | | | | | [...] RIGHT | e | 5:08 PM | skull valley artery of | procedure are in [...] IMAGING | | CLINICAL HISTORY: Atheroscler of skull valley artery of right leg with | [...] ultimately anastomose with the | | | skull valley popliteal artery, which is patent and [...] ULTRASOUND 12/06/2016 2:39 PMCLINICAL HISTORY: Atheroscler of skull valley artery of right leg | | [...] superficial limbappears to ultimately anastomose with the skull valley | | popliteal artery, which ispatent [...] Diagnosis | + + | 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
--- OUTSIDE RECORDS SUMMARY | ~2019-11-20 | XMS | Encounter Summary ---
Demographics + + + | Address | [address] | | | [place] [address] | + + + | Home Phone | | + + + | Preferred Language | Unknown | + + + | Marital Status | | + + + | Anabaptism Affiliation | Unknown | + + + | Race | Unknown | + + + | Ethnic Group | Unknown | + + + Author + + + | Author | [facility] | | | and [place] | + + + | Organization | [facility] | | | and [...] [place] | | | | | [address] | | + + + + + Care Team Providers + +------+ + | Care Plastic Mould Maker Name | Role | Phone | + +------+ + | Carlos Alberto Galeas MD | PCP | | + +------+ + Reason for Visit + + + | Reason | Comments | + + + | Appointment | | + + + | Imaging | | + + + Encounter Details +--------+ + + + + | Date | Type | Department | Care Team | Description | +--------+ + + + + | 08/19/ | Telephone | [facility] | Osmin Garber MD | Appointment; Imaging | | 2019 | | VASCULAR SURGERY | [address] | | | | | [address] | [address] | | | | | [place], [place] | [place] [address] | | | | | [address] | [phone] | | | | | [phone] | | | +--------+ + + + [...] [place] | | | | | | [address] | | | | | | | | +--------+---------+ + + + documented as of this encounter Visit Diagnoses Not on filedocumented in this encounter"
--- OUTSIDE RECORDS SUMMARY | ~2019-11-20 | XMS | Encounter Summary ---
Demographics + + + | Address | [address] | | | [place] [address] | + + + | Home Phone | | + + + | Preferred Language | Unknown | + + + | Marital Status | | + + + | Sikh Affiliation | Unknown | + + + | Race | Unknown | + + + | Ethnic Group | Unknown | + + + Author + + + | Author | [facility] | | | and [place] | + + + | Organization | [facility] [...] [place] | | | | | [address] | | + + + + + Care Team Providers + +------+ + | Care Communications Tech Name | Role | Phone | + [...] | | | | | ischemia | [address] | | | | | | Procedures | [address] | | | | | | VAS Ankle | [place] | | | | | | Brachial | [place], [place] | | | | | | Index | [address] | | | | | | Resting | Phone: | | | | | | | [phone] | | | | | | | Fax: | | | | | | | [phone] | | +--------+--------+ + + + + Encounter Details +--------+ + + + + | Date | Type | Department | Care Team | Description | +--------+ + + + + | 09/29/ | Hospital | [facility] | Osmin Garber MD | 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 | | | [...] TBI: 0.91 | | | Waveforms: Triphasic SAP TREASURY CONSULTANT, monophasic DP LEFT Dorsalis Pedis: 194 | [...] | | CLINICAL INFORMATION: | | Left FBI INVESTIGATOR endarterectomy and iliac stents. | | | [...] | TBI: 0.91 | | Waveforms: Triphasic SAP TREASURY CONSULTANT, monophasic DP | | | | LEFT [...] | | | | Signed by: Katharine Rowell Richard | | Sign Date/Time: 10/01/2019 3:24 PM [...]
--- OUTSIDE RECORDS SUMMARY | ~2019-11-20 | XMS | Encounter Summary ---
Demographics + + + | Address | [address] | | | [place] [address] | + + + | Home Phone [...] | Organization | [facility] | | | and [place] | [...] [place] | | | | | [address] | | + + + + + Care Team Providers + +------+ + | Care Research Affiliate Name | Role | Phone | + +------+ + | Carlos Alberto Galeas MD | PCP | | + +------+ + Reason for Visit + + + | Reason | Comments | + + + | Imaging Only | | + + + Encounter Details +--------+ + + + + | Date | Type | Department | Care Team | Description | +--------+ + + + + | 09/22/ | Telephone | [facility] | Anya Ramon Sagastume, | Imaging Only | | 2019 | | VASCULAR SURGERY | RN | | | | | [address] | | | | | | [place] | | | | | | [address] | | | | | | [phone] | | | +--------+ + + + [...] | | | | | [address] [place] | | | | | | [address] | | | | | | | | +--------+---------+ + + + documented as of this encounter Visit Diagnoses Not on filedocumented in this encounter"
--- OUTSIDE RECORDS SUMMARY | ~2019-11-20 | XMS | Encounter Summary ---
Demographics + + + | Address | [address] | | | [place] [address] | + + + | Home Phone | | + + + | Preferred Language | Unknown | + + + | Marital Status | | + + + | Uatsdin Affiliation | Unknown | + + + | Race | Unknown | + + + | Ethnic Group | Unknown | + + + Author + + + | Author | [facility] | | | and Eduardana | + + + | Organization | [facility] | | | and Eduardana [...] [place] | | | | | [address] | | + + + + + Care Team Providers + +------+ + | Care Aircraft Fuselage Framer Name | Role | Phone | + [...] | | | | | disease) | [place], [place] | | | | | | ([facility]) | [address] | | | | | | Chronic | Phone: | | | | | | atrial | [phone] | | | | | | fibrillation | Fax: | | | | | | (HCC) | [phone] | | | | | | Chronic [...] | | | | | disease) | [facility] [place] | | | | | | ([facility]) | [address] | | | | | | Atrial | Phone: | | | | | | fibrillation | [phone] | | | | | | with RVR | Fax: | | | | | | ([facility]) | [phone] | | + + + + + [...] 2ND | | | | | | ([facility]) | [place] | | | | | | Procedures | [place] | | | | | | IR Angiogram | [address] | | | | | | Lower | Phone: | | | | | | Extremity | [phone] | | | | | | Left | Fax: | | | | | | | [phone] | | +--------+--------+ + + + + [...] | | | | | | | ([facility]) | | | | | [...] + + | 09/11/ | Hospital | [facility] | Osmin Garber MD | PAD (peripheral | | 2020 - | Encounter | [facility] | [address] | artery disease) | | | | [address] | [address] [place] | ([facility]); PAD | | 09/19/ | | [place], [place] | [place] [address] | (peripheral artery | | 2020 | | [address] | [phone] | disease) ([facility]); | | | | [phone] | | Bilateral carotid | | | | | Luther Maurer, | artery stenosis; | | | | | MD [address] | Chronic anemia; | | | | | [place] [address] | Chronic atrial | | | | | [phone] | fibrillation ([facility]); | | | | | | Chronic diastolic | | | | | Thor Yang MD | heart failure ([facility]); | | | | | [address] | Essential | | | | | [place] [address] | hypertension; PVD | | | | | [phone] | (peripheral vascular | | | | | | disease) ([facility]); | | | | | | Atrial fibrillation | | | | | | with RVR ([facility]) | +--------+ + + + + Social [...] might be different fr om the original. [facility] Service: Hospitalist Physician Discharge Summary Patient ID: [...] the patient adamantly refused going to a detention facil [facility]. The patient's son and indicated they felt comfortable with him returning home. As a r esult, he was discharged home with care of his family. ordnance equipment worker was involved, in assistance with home [...] is instructed to follow up with his component prep operator, Dr. Selby in approximately 2 weeks. 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 PVD (peripheral vascular disease) (HCC) 02/06/2018 PVD (peripheral vascular disease) ([facility]) Urinary retention Past Surgical History: Procedure Laterality Date ARTERY SURGERY Left 09/11/2019 Procedure: ENDARTERECTOMY FEMORAL; Surgeon: Osmin Garber MD; Location: [facility] MAIN OR CAROTID ENDARTERECTOMY Right CATARACT REMOVAL WITH IMPLANT Bilateral 03/30/10 and 04/27/10 CORONARY ANGIOPLASTY without stent [facility] Approx [id number] FEMUR FRACTURE SURGERY Right 12/19/2016 Procedure: ORIF IM RODDING FEMORAL ANTEGRADE; Surgeon: Lambert Mancuso MD; Location: [facility] MAIN OR FEMUR FRACTURE SURGERY Left 12/19/2016 Procedure: ORIF IM RODDING FEMORAL TROCHANTERIC NAIL; Surgeon: Lambert Mancuso MD; Locati on: [facility] MAIN OR Heart/ Arrhythmia ablation Right femoral to below knee popliteal reverse saphenus vein graft 12/01/2013 Right common femoral endarterectomy with Vascu-Guard patch angioplasty, Right external mk ac stent angioplasty 7x29 mm, Angiography, Harvesting right greater saphenous vein, Dual - l umen on Q pain pump placement. [facility] - Dr. Delaney Right thigh biopsy 10/24/2011 nonspecific chronic dermatitis Ultrasound guided access, right common femoral artery 11/30/2013 Right iliac angiography, Right femoral angiography with runoff. [facility] - Dr. Delaney Discharged Condition: Stable for [...] Galeas MD [address] [place] [address] In 1 week Osmin Garber MD [address] [place] [address] [facility] [place] [facility] [id number] In 2 weeks Follow-up post vascular intervention, staple removal Paolo Selby MD [address] [facility] [id number] In 2 weeks Follow-up for atrial fibrillation 2019 1:54 PM Signed: Electronically signed by: Thor Yang MD, 2019 1:54 PM [facility] Discharge took more than 35 minutes, to include final examination, discussion of admission, and preparation of prescriptions, instructions for ongoing care, follow up and dictation of summary. Portions of this chart may have been created with Dr. Jerry's Smooth Move voice recognition software. Occasi onal wrong-word or [...] sent with prescription s. ham, Marky Montoya [facility] - 2019 1:54 PM PST Pharmacy Warfarin Monitoring: Deborah Thomason male 88 y.o., admitted for limb ischemia. He underwent planned TAXONOMIST endarterectomy and angio plasty on 09/11/19. Per regulatory product manager reconciliation, warfarin was on hold since [...] might be diff erent from the original. [facility] Service: Vascular Surgery Progress Note Hospital Day: [...] Chart check complete. Jenny Marie RN hamMarky [facility] - 09/19/2019 2:09 PM PST Pharmacy Warfarin Monitoring: Deborah Thomason male 88 y.o., admitted for limb ischemia. He underwent planned TAXONOMIST endarterectomy and angio plasty on 09/11/19. Per regulatory product manager reconciliation, warfarin was on hold since [...] might be dif ferent from the original. [facility] Service: Vascular Surgery Progress Note Hospital Day: [...] MD - 0 09/19/2019 7:56 AM PST [facility] Adult Hospitalist Progress Note Hospital Day: 8 [...] approximately 24 hours [facility]. Physical therapy recommending [...] endarterectomy -Continue Plavix -PT, will require SNF; fruit cutter to assist with placement, patient agreeable #4. [...] this chart may have been created with Dr. Jerry's Smooth Move voice recognition software. Occasi onal wrong-word or [...] be covering over the weekend. Will call [facility] questions or concerns. Osmin Garber MD Vascular Surgery nika Yang MD - 09/18/2019 2:11 PM PSTFormatting of this note might be different from the or iginal. [facility] Adult Hospitalist Progress Note Hospital Day: 7 [...] approximately 24 hours and transferred to the [facility] l service on 09/18/2019 OBJECTIVE [...] this chart may have been created with Dr. Jerry's Smooth Move voice recognition software. Occasi onal wrong-word or sound-alike substitutions may have occurred due to the inherent ness itations of voice recognition software. Please read the chart carefully and recognize, using context, where these substitutions have occurred Anurag Amato MD - 09/18/2019 1:24 PM PST [facility] Service: Cardiology Progress Note Hospital Day: [...] Patient was admitted and underwen t today TAXONOMIST endarterectomy and angioplasty. EBL was 200-400ml. He [...] note might be different from the origin [facility] Service: Global Regulatory Affairs Manager Progress Note Deborah Thomason 88 y.o. [...] Code Jeramy Chapa MD 09/18/2019 Dictation software, Dr. Jerry's Smooth Move, was used which may contain error with [...] Patient reports chronic hypotension. Susanna Simon MD Global Regulatory Affairs Manager 09/18/2019 Please bill 40 minutes of critical care time spent evaluating the patient, reviewing the da ta and formulating a plan exclusive of procedures. Anurag Villa MD - 09/17/2019 5: 24 PM PST [facility] Service: Cardiology Progress Note Hospital Day: [...] Patient was admitted and underwen t today TAXONOMIST endarterectomy and angioplasty. EBL was 200-400ml. He [...] Code Anurag Villa MD roctor, Elías Suarez [facility] - 09/17/2019 2:53 PM PSTFormatting of this note might be different from the origi nal. Pharmacy Warfarin Monitoring: Deborah Thomason male 88 y.o., admitted for limb ischemia. He underwent planned TAXONOMIST endarterectomy and angio plasty on 09/11/19. Per regulatory product manager reconciliation, warfarin was on hold since [...] Robertson PA - 09/17/2019 1:20 PM PST [facility] Service: Vascular Surgery Progress Note Hospital Day: LOS: 6 days Post-Op Day: 3 ASSESSMENT & PLAN POD #3, S/p Lt LIA, EIA stent, Lt TAXONOMIST endarterectomy for LLE CLI, transferred to ICU [...] Monroy MD - 09/17/2019 8:29 AM PST [facility] Service: Global Regulatory Affairs Manager Progress Note Deborah Thomason 88 y.o. 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 surgery [...] Intake/Output Summary (Last 24 hours) at 09/17/2019 0845 Last data filed at 09/17/2019 0646 Gross [...] Code Jeramy Chapa MD 09/17/2019 Dictation software, Dr. Jerry's Smooth Move, was used which may contain error with [...] phenylephrine as BP tolerates. Susanna Simon MD Global Regulatory Affairs Manager 09/17/2019 Please bill 40 minutes of [...] might be different from the rand dominguez. [facility] Service: Cardiology Progress Note Hospital Day: [...] Patient was admitted and underwen t today TAXONOMIST endarterectomy and angioplasty. EBL was 200-400ml. He [...] might be different from the origin al. [facility] Service: Global Regulatory Affairs Manager Progress Note Deborah Thomason 88 y.o. [...] Code Jeramy Chapa MD 09/16/2019 Dictation software, Dr. Jerry's Smooth Move, was used which may contain error with [...] phenylephrine as BP tolerates. Susanna Simon MD Global Regulatory Affairs Manager 09/16/2019 1:33 PM Please bill 40 minutes of critical care time spent evaluating the patient, reviewing the da ta and formulating a plan exclusive of procedures. Kendell Robertson PA - 09/16/2019 8:[address] [facility] Service: Vascular Surgery Progress Note Hospital Day: LOS: 5 days Post-Op Day: 2 ASSESSMENT & PLAN POD #2, S/p Lt LIA, EIA stent, Lt TAXONOMIST endarterectomy for LLE CLI, transferring to ICU [...] Monroy MD - 09/15/2019 2:47 PM PST [facility] Service: Global Regulatory Affairs Manager Progress Note Deborah Thomason 88 y.o. [...] Code Jeramy Chapa MD 09/15/2019 Dictation software, Dr. Jerry's Smooth Move, was used which may contain error with [...] phenylephrine as BP tolerates. Susanna Simon MD Global Regulatory Affairs Manager [facility] 09/15/2019 4:12 PM Please bill 40 minutes of critical care time spent evaluating the patient, reviewing the da ta and formulating a plan exclusive of procedures. Amadou Karley Riley, [facility] - 09/15/2019 2:08 PM PSTFormatting of this note might be differen t from the original. Pharmacy Warfarin Monitoring: Deborah Thomason male 88 y.o., admitted for limb ischemia. He underwent planned TAXONOMIST endarterectomy and angio plasty on 09/11/19. Per regulatory product manager reconciliation, warfarin was on hold since [...] modify therapy as indicated. Karley Tobar, PharmD, [facility] 09/15/19 2:08 PM Hai Amato MD - 09/15/2019 9:56 AM PSTFormatting of this note might be different from the [facility] Service: Cardiology Progress Note Hospital [...] Patient was admitted and underwen t today TAXONOMIST endarterectomy and angioplasty. EBL was 200-400ml. He [...] He denies any chest pain, SOB. Says juhi delaney in lower extremity improving. Scheduled Medications [...] I, DO - 09/14/2019 1:54 PM PST [facility] Progress Note Primary Care Physician: Carlos [...] this note might be different from the [facility] Service: Cardiology Progress Note Hospital [...] Patient was admitted and underwen t today TAXONOMIST endarterectomy and angioplasty. EBL was 200-400ml. He [...] Full Code Anurag Villa MD Karley Pichardo [facility] - 09/14/2019 9:59 AM PSTRenal Dosing Monitoring: [...] function and will adjust accordingly. Feli FowlerD, [facility] 09/14/19 7:50 AM Jeramy Grove MD - 09/14/2019 8:06 AM PSTFormatting of this note might be different from the [facility] Service: Global Regulatory Affairs Manager Progress Note Deborah Thomason 88 y.o. [...] Code Jeramy Chapa MD 09/14/2019 Dictation software, Dr. Jerry's Smooth Move, was used which may contain error with [...] phenylephrine as BP tolerates. Susanna Simon MD Global Regulatory Affairs Manager 09/14/2019 Please bill 40 minutes of critical care time spent evaluating the patient, reviewing the da ta and formulating a plan exclusive of procedures. Karley Tobar, [facility] - 09/14/2019 7:51 AM PST Pharmacy Warfarin Monitoring: Deborah Thomason male 88 y.o., admitted for limb ischemia. He underwent planned TAXONOMIST endarterectomy and angio plasty on 09/11/19. Per regulatory product manager reconciliation, warfarin was on hold since [...] modify therapy as indication. Karley Tobar, PharmD, [facility] 09/14/19 7:47 AM Jess Covarrubias DO - 09/13/2019 4:04 PM PST . [facility] Progress Note Primary Care Physician: Carlos [...] this note might be different from the [facility] Service: Cardiology Progress Note Hospital [...] Patient was admitted and underwen t today TAXONOMIST endarterectomy and angioplasty. EBL was 200-400ml. He [...] Code Status: Full Code Anurag Villa MD Lain Brown [facility] - 09/13/2019 1:43 PM PSTFormatting of this note might be different from the mushtaq higgins. Pharmacy Warfarin Monitoring: Deborah Thomason is an 88 year old male admitted for limb ischemia. He underwent planned TAXONOMIST endarterectomy and angioplasty on 09/11/19. Per regulatory product manager reconciliation, warfarin w as on hold [...] Lockett MD - 09/13/2019 8:27 AM PST [facility] Service:hospitalist Progress Note Hospital Day: LOS: 2 [...] Procedure Component Value Units Date/Time MRSA NAAT [[id number]] Collected: 09/10/19 1553 Order Status: Completed Lab Status: Final result Updated: 09/10/19 1855 Specimen: Tissue from Nares SOURCE: NARES(NOSE) Result NEGATIVE Comment: Testing performed at [facility];[address] [place] [address];[place] [address] No results found for this or any [...] JUAN Berry Read Only, JUAN Warren ([id number]), video news editor Maximiliano Yee ([id number]) on 019 2:24:36 [...] admitted for limb ischemia. He underwent planned TAXONOMIST endarterectomy and angio plasty on 09/11/19. Per regulatory product manager reconciliation, warfarin was on hold since [...] of shift. MD, vascular, sepsis RN and candle molder hand aware. Currently on 20 mcg of kailee with sbp 110's. End of shift chart check complete. Oma Kumar RN Ayala Coavrrubias I, DO - 09/12/2019 5:16 PM PSTFormatting of this note might be different from the rand alberto. [facility] Progress Note Primary Care Physician: Carlos [...] for Atrial fibrillation, trend troponins to exclude [place]. Electronically signed by: Jess Webber DO, 09/12/2019 5:16 PM Nika Lockett MD - 09/12/2019 8:36 AM PST [facility] Service:hospitalist Progress Note Hospital Day: LOS: 1 [...] Procedure Component Value Units Date/Time MRSA NAAT [[id number]] Collected: 09/10/19 1553 Order Status: Completed Lab Status: Final result Updated: 09/10/19 9224 Specimen: Tissue from Nares SOURCE: NARES(NOSE) Result NEGATIVE Comment: Testing performed at [facility];[address] [place] [address];[place] [address] No results found for this or any previous visit (from the past 360 hour(s)). Results for orders placed or performed in visit on 06/10/19 ECG 12 lead Result Value Ref Range INTERPRETATION TEXT Atrial fibrillation Possible Anterior infarct , age undetermined Abnormal ECG No previous ECGs available Please refer to Providers office visit note for Providers Interpretation. Confirmed by [facility] Read Only, JUAN Warren ([id number]), video news editor Maximiliano Yee ([id number]) on 019 2:24:36 PM I have reviewed [...] all B P meds and monitor, per LOG HANDLER is aware Chronic diastolic HF seems stable [...] check complete. Fadia Estrada RN Karley Pichardo [facility] - 09/11/2019 6:50 PM PSTFormatting of rupal s note might be different from the original. Pharmacy Warfarin Monitoring: Deborah Thomason male 88 y.o., admitted for limb ischemia. He underwent planned TAXONOMIST endarterectomy and angio plasty on 09/11/19. Per regulatory product manager reconciliation, warfarin was on hold since [...] modify therapy as indicated. Karley Tobar, FeliD, [facility] 09/11/19 6:49 PM documented in rupal s [...] [place] | | | | | | [id number] | | | | | | | [...] disease) | | | | | | ([facility]) Atrial | | | | | | fibrillation with | | | | | | RVR ([facility]) | | + + +--------+ + + [...] | | | | | | disease) ([facility]) | | + + +--------+ + + [...] the | | | | PST | ([facility]) | results section. | + +--------+ + + + | SURGICAL PATHOLOGY | Routin | 09/11/2019 | PAD (peripheral | Results for this | | EXAM | e | 8:17 AM | artery disease) | procedure are in the | | | | PST | ([facility]) | results section. | + +--------+ + + + | ENDARTERECTOMY | | 09/11/2019 | PAD (peripheral | | | FEMORAL | | 7:08 AM | artery disease) | | | | | PST | ([facility]) | | + +--------+ + [...] [facility] | | | | performed at [facility];[address] | [address]AT[address] | | | | [address];[place], [place] | | | | | | [address] | | | | + + + + + + + + | Specimen | + + | Blood | + + + + + + + | Performing | Address | City/State/Zipcode | Phone Number | | Organization | | | | + + + + + | [facility] | [address] | [place] [address] | [phone] | + + + + + CBC [...] | | | Absolute | performed at [facility];[address] | [address] | LABORATORY | | | | [address];[place] | | | | | | [address] | | | | + + + + + + + + | Specimen | + + | Blood | + + + + + + + | Performing | Address | City/State/Zipcode | Phone Number | | Organization | | | | + + + + + | [facility] | [address] | [place] [address] | [phone] | + + + + + Comprehensive [...] | >60Comment: GFR <60: | >60 | [facility] | | | GFR | CHRONIC [...] | | | | | | MDRD [facility] traceable | | | | | | equation.Testing | | | | | | performed at [facility];[address] | | | | | | [address] [facility];[place], [place] | | | | | | [address] | | | | + + + + + + + + | Specimen | + + | Blood | + + + + + + + | Performing | Address | City/State/Zipcode | Phone Number | | Organization | | | | + + + + + | [facility] | [address] [facility] | [place] [address] | [phone] | + + + + + Protime [...] | | | | | performed at [facility];[address] | | | | | | [address];[place] | | | | | | [address] | | | | + + + + + + + + | Specimen | + + | Blood | + + + + + + + | Performing | Address | City/State/Zipcode | Phone Number | | Organization | | | | + + + + + | [facility] | [address] | [place] [address] | [phone] | + + + + + Potassium (09/19/2019 8:20 PM PST) + + + + + + | Component | Value | Ref Range | Performed | Pathologist | | | | | At | Signature | + + + + + + | K | 4.3Comment: Testing | 3.5 - 4.9 | [facility] | | | | performed at [facility];[address] | mmol/L | LABORATORY | | | | [address];[place], [place] | | | | | | [address] | | | | + + + + + + + + | Specimen | + + | Blood | + + + + + + + | Performing | Address | City/State/Zipcode | Phone Number | | Organization | | | | + + + + + | [facility] | [address] | [place] [address] | [phone] | + + + + + Potassium (09/19/2019 11:06 AM PST) + + + + + + | Component | Value | Ref Range | Performed | Pathologist | | | | | At | Signature | + + + + + + | K | 4.0Comment: Testing | 3.5 - 4.9 | [facility] | | | | performed at [facility];[address] | mmol/L | LABORATORY | | | | [address] [facility];[place], [place] | | | | | | [address] | | | | + + + + + + + + | Specimen | + + | Blood | + + + + + + + | Performing | Address | City/State/Zipcode | Phone Number | | Organization | | | | + + + + + | [facility] | [address] | [place] [address] | [phone] | + + + + + Magnesium (09/19/2019 4:20 AM PST) + + + + + + | Component | Value | Ref Range | Performed | Pathologist | | | | | At | Signature | + + + + + + | Magnesium | 1.7Comment: Testing | 1.7 - 2.4 mg/dL | [facility] | | | | performed at [facility];[address] | | LABORATORY | | | | [address];[place] | | | | | | [address] | | | | + + + + + + + + | Specimen | + + | Blood | + + + + + + + | Performing | Address | City/State/Zipcode | Phone Number | | Organization | | | | + + + + + | [facility] | [address] | [place] [address] | [phone] | + + + + + CBC [...] | | | Absolute | performed at [facility];[address] | K[address] | LABORATORY | | | | [address];[place], [place] | | | | | | [address] | | | | + + + + + + + + | Specimen | + + | Blood | + + + + + + + | Performing | Address | City/State/Zipcode | Phone Number | | Organization | | | | + + + + + | [facility] | [address] | [place] [address] | [phone] | + + + + + Comprehensive [...] | | | | | | MDRD [facility] traceable | | | | | | equation.Testing | | | | | | performed at [facility];[address] | | | | | | [facility];[place], [place] | | | | | | [address] | | | | + + + + + + + + | Specimen | + + | Blood | + + + + + + + | Performing | Address | City/State/Zipcode | Phone Number | | Organization | | | | + + + + + | [facility] | [address] | [place] [address] | [phone] | + + + + + Protime [...] | | | | | performed at [facility] | | | | | | [address] [facility];[place], [place] | | | | | | [address] | | | | + + + + + + + + | Specimen | + + | Blood | + + + + + + + | Performing | Address | City/State/Zipcode | Phone Number | | Organization | | | | + + + + + | [facility] | [address] | [place] [address] | [phone] | + + + + + Magnesium (09/18/2019 4:06 AM PST) + + + + + + | Component | Value | Ref Range | Performed | Pathologist | | | | | At | Signature | + + + + + + | Magnesium | 1.9Comment: Testing | 1.7 - 2.4 mg/dL | [facility] | | | | performed at [facility];[address] | | LABORATORY | | | | [address];[place], [place] | | | | | | [address] | | | | + + + + + + + + | Specimen | + + | Blood | + + + + + + + | Performing | Address | City/State/Zipcode | Phone Number | | Organization | | | | + + + + + | [facility] | [address] | [place] [address] | [phone] | + + + + + CBC [...] | | | Absolute | performed at [facility];[address] | K/uL | LABORATORY | | | | [address]aira [address];[place] | | | | | | [address] | | | | + + + + + + + + | Specimen | + + | Blood | + + + + + + + | Performing | Address | City/State/Zipcode | Phone Number | | Organization | | | | + + + + + | [facility] | [address] | [place] [address] | [phone] | + + + + + Comprehensive [...] | >60Comment: GFR <60: | >60 | [facility] | | | GFR | CHRONIC [...] | | | | | | MDRD [facility] traceable | | | | | | equation.Testing | | | | | | performed at [facility] | | | | | | [facility];[place], [place] | | | | | | [address] | | | | + + + + + + + + | Specimen | + + | Blood | + + + + + + + | Performing | Address | City/State/Zipcode | Phone Number | | Organization | | | | + + + + + | [facility] | [address] | [place] [address] | [phone] | + + + + + Protime INR (09/18/2019 4:06 AM PST) + + + + + + | Component | Value | Ref Range | Performed | Pathologist | | | | | At | Signature | + + + + + + | INR | 2.7Comment: REFERENCE | | [facility] | | | | RANGE:0.9 - [...] | | | | | performed at [facility];[address] | | | | | [address];[place] | | | | | | [address] | | | | + + + + + + + + | Specimen | + + | Blood | + + + + + + + | Performing | Address | City/State/Zipcode | Phone Number | | Organization | | | | + + + + + | [facility] | [address] | [place] [address] | [phone] | + + + + + Magnesium (09/18/2019 12:02 AM PST) + + + + + + | Component | Value | Ref Range | Performed | Pathologist | | | | | At | Signature | + + + + + + | Magnesium | 2.0Comment: Testing | 1.7 - 2.4 mg/dL | [facility] | | | | performed at [facility];[address] | | LABORATORY | | | | [address];[place] | | | | | | [address] | | | | + + + + + + + + | Specimen | + + | Blood | + + + + + + + | Performing | Address | City/State/Zipcode | Phone Number | | Organization | | | | + + + + + | [facility] | [address] | [place] [address] | [phone] | + + + + + Phosphorus (09/18/2019 12:02 AM PST) + + + + + + | Component | Value | Ref Range | Performed | Pathologist | | | | | At | Signature | + + + + + + | Phosphorus | 2.4Comment: Testing | 2.3 - 4.8 mg/dL | [facility] | | | | performed at [facility];[address] | | LABORATORY | | | | [address];[place] | | | | | | [address] | | | | + + + + + + + + | Specimen | + + | Blood | + + + + + + + | Performing | Address | City/State/Zipcode | Phone Number | | Organization | | | | + + + + + | [facility] | [address] | [place] [address] | [phone] | + + + + + Potassium (09/18/2019 12:02 AM PST) + + + + + + | Component | Value | Ref Range | Performed | Pathologist | | | | | At | Signature | + + + + + + | K | 3.8Comment: Testing | 3.5 - 4.9 | [facility] | | | | performed at [facility];888 | mmol/L | LABORATORY | | | | [address];[place], [place] | | | | | | [address] | | | | + + + + + + + + | Specimen | + + | Blood | + + + + + + + | Performing | Address | City/State/Zipcode | Phone Number | | Organization | | | | + + + + + | [facility] | [address] | [place] [address] | [phone] | + + + + + Phosphorus (09/17/2019 4:38 AM PST) + + + + + + | Component | Value | Ref Range | Performed | Pathologist | | | | | At | Signature | + + + + + + | Phosphorus | 2.5Comment: Testing | 2.3 - 4.8 mg/dL | [facility] | | | | performed at [facility];[address] | | LABORATORY | | | | [address] Rodriguez;[place] | | | | | | [address] | | | | + + + + + + + + | Specimen | + + | Blood | + + + + + + + | Performing | Address | City/State/Zipcode | Phone Number | | Organization | | | | + + + + + | [facility] | [address] | [place] [address] | [phone] | + + + + + Magnesium (09/17/2019 4:38 AM PST) + + + + + + | Component | Value | Ref Range | Performed | Pathologist | | | | | At | Signature | + + + + + + | Magnesium | 1.8Comment: Testing | 1.7 - 2.4 mg/dL | [facility] | | | | performed at [facility];[address] | | LABORATORY | | | | [address];[place] | | | | | | [address] | | | | + + + + + + + + | Specimen | + + | Blood | + + + + + + + | Performing | Address | City/State/Zipcode | Phone Number | | Organization | | | | + + + + + | [facility] | [address] | [place] [address] | [phone] | + + + + + CBC [...] | | | Absolute | performed at [facility];[address] | K/uL | LABORATORY | | | | [address]aira Rodriguez;[place] | | | | | | [address] | | | | + + + + + + + + | Specimen | + + | Blood | + + + + + + + | Performing | Address | City/State/Zipcode | Phone Number | | Organization | | | | + + + + + | [facility] | [address] | [place] [address] | [phone] | + + + + + Comprehensive [...] | | | | | performed at [facility];[address] | | | | | | [address];[place], [place] | | | | | | [address] | | | | + + + + + + + + | Specimen | + + | Blood | + + + + + + + | Performing | Address | City/State/Zipcode | Phone Number | | Organization | | | | + + + + + | [facility] | [address] | [place] [address] | [phone] | + + + + + Protime [...] | | | | | performed at [facility] | | | | | | [address];[place], [place] | | | | | | [address] | | | | + + + + + + + + | Specimen | + + | Blood | + + + + + + + | Performing | Address | City/State/Zipcode | Phone Number | | Organization | | | | + + + + + | [facility] | [address] | [place] [address] | [phone] | + + + + + Phosphorus (09/16/2019 4:11 AM PST) + + + + + + | Component | Value | Ref Range | Performed | Pathologist | | | | | At | Signature | + + + + + + | Phosphorus | 2.7Comment: Testing | 2.3 - 4.8 mg/dL | [facility] | | | | performed at [facility];[address] | | LABORATORY | | | | [address];[place], [place] | | | | | | [address] | | | | + + + + + + + + | Specimen | + + | | + + + + + + + | Performing | Address | City/State/Zipcode | Phone Number | | Organization | | | | + + + + + | [facility] | [address] [facility] [address] [facility] [facility] | [place] [address] | [phone] | + + + + + Magnesium (09/16/2019 4:11 AM PST) + + + + + + | Component | Value | Ref Range | Performed | Pathologist | | | | | At | Signature | + + + + + + | Magnesium | 2.4Comment: Testing | 1.7 - 2.4 mg/dL | [facility] | | | | performed at [facility];8 | | LABORATORY | | | | [address];[place], [place] | | | | | | [address] | | | | + + + + + + + + | Specimen | + + | Blood | + + + + + + + | Performing | Address | City/State/Zipcode | Phone Number | | Organization | | | | + + + + + | [facility] | [address] | [place] [address] | [phone] | + + + + + CBC [...] | | | Absolute | performed at [facility];[address] | [address] | LABORATORY | | | | [address];[place], [place] | | | | | | [address] | | | | + + + + + + + + | Specimen | + + | Blood | + + + + + + + | Performing | Address | City/State/Zipcode | Phone Number | | Organization | | | | + + + + + | [facility] | [address] [facility] [address] [facility] [facility] | [place] [address] | [phone] | + + + + + Comprehensive [...] | | | | | performed at [facility];[address] | | | | | | [facility];[place], [place] | | | | | | [address] | | | | + + + + + + + + | Specimen | + + | Blood | + + + + + + + | Performing | Address | City/State/Zipcode | Phone Number | | Organization | | | | + + + + + | [facility] | [address] | [place] [address] | [phone] | + + + + + Protime INR (09/16/2019 4:11 AM PST) + + + + + + | Component | Value | Ref Range | Performed | Pathologist | | | | | At | Signature | + + + + + + | INR | 1.6Comment: REFERENCE | | [facility] | | | | RANGE:0.9 - [...] | | | | | performed at [facility];[address] | | | | | | [address];[place], [place] | | | | | | [address] | | | | + + + + + + + + | Specimen | + + | Blood | + + + + + + + | Performing | Address | City/State/Zipcode | Phone Number | | Organization | | | | + + + + + | [facility] | [address] | [place] [address] | [phone] | + + + + + XR [...] Testing | 1.7 - 2.4 mg/dL | [facility] | | | | performed at [facility];[address] | | LABORATORY | | | | [address];[place], [place] | | | | | | [address] | | | | + + + + + + + + | Specimen | + + | Blood | + + + + + + + | Performing | Address | City/State/Zipcode | Phone Number | | Organization | | | | + + + + + | [facility] | [address] | [place] [address] | [phone] | + + + + + CBC [...] | | | Absolute | performed at [facility];[address] | [address] | LABORATORY | | | | [address];[place] | | | | | | [address] | | | | + + + + + + + + | Specimen | + + | Blood | + + + + + + + | Performing | Address | City/State/Zipcode | Phone Number | | Organization | | | | + + + + + | [facility] | [address] | [place] [address] | [phone] | + + + + + Comprehensive [...] | >60Comment: GFR <60: | >60 | [facility] | | | GFR | CHRONIC [...] | | | | | performed at [facility] | | | | | | [facility];[place], [place] | | | | | | [address] | | | | + + + + + + + + | Specimen | + + | Blood | + + + + + + + | Performing | Address | City/State/Zipcode | Phone Number | | Organization | | | | + + + + + | [facility] | [address] | [place] [address] | [phone] | + + + + + Protime [...] | | | | | performed at [facility] | | | | | | [facility];[place], [place] | | | | | | [address] | | | | + + + + + + + + | Specimen | + + | Blood | + + + + + + + | Performing | Address | City/State/Zipcode | Phone Number | | Organization | | | | + + + + + | [facility] | [address] | [place] [address] | [phone] | + + + + + Digoxin [...] (L)Comment: Testing | 0.90 - 2.00 | [facility] | | | level | performed at [facility];888 | ng/mL | LABORATORY | | | | [address];[place] | | | | | | [address] | | | | + + + + + + + + | Specimen | + + | Blood | + + + + + + + | Performing | Address | City/State/Zipcode | Phone Number | | Organization | | | | + + + + + | [facility] | [address] | [place] [address] | [phone] | + + + + + CBC [...] | | | Absolute | performed at [facility];[address] | K/uL | LABORATORY | | | | [address];[place] | | | | | | [address] | | | | + + + + + + + + | Specimen | + + | Blood | + + + + + + + | Performing | Address | City/State/Zipcode | Phone Number | | Organization | | | | + + + + + | [facility] | [address] | [place] [address] | [phone] | + + + + + Comprehensive [...] | >60Comment: GFR <60: | >60 | [facility] | | | GFR | CHRONIC [...] | | | | | | [facility]D [facility] traceable | | | | | | equation.Testing | | | | | | performed at [facility];[address] | | | | | | [facility];[place], [place] | | | | | | [address] | | | | + + + + + + + + | Specimen | + + | Blood | + + + + + + + | Performing | Address | City/State/Zipcode | Phone Number | | Organization | | | | + + + + + | [facility] | [address] | [place] [address] | [phone] | + + + + + Magnesium (09/14/2019 9:23 AM PST) + + + + + + | Component | Value | Ref Range | Performed | Pathologist | | | | | At | Signature | + + + + + + | Magnesium | 1.6 (L)Comment: Testing | 1.7 - 2.4 mg/dL | [facility] | | | | performed at [facility];[address] | | LABORATORY | | | | [address];[place] | | | | | | [address] | | | | + + + + + + + + | Specimen | + + | Blood | + + + + + + + | Performing | Address | City/State/Zipcode | Phone Number | | Organization | | | | + + + + + | [facility] | [address] | [place] [address] | [phone] | + + + + + ECHO [...] [facility] | | | [place] | | | | | + + [...] | | | | | | n Shasta | | | | | + + [...] | | | | | performed at [facility] | | | | | | [facility];[place], [place] | | | | | | [address] | | | | + + + + + + + + | Specimen | + + | Blood | + + + + + + + | Performing | Address | City/State/Zipcode | Phone Number | | Organization | | | | + + + + + | [facility] | [address] | [place] [address] | [phone] | + + + + + POC Glucose (09/13/2019 12:29 PM PST) + + + + + + | Component | Value | Ref Range | Performed | Pathologist | | | | | At | Signature | + + + + + + | Glucose, | 148 (H)Comment: Testing | 65 - 99 mg/dL | [facility] | | | POC | performed at [facility];[address] | | LABORATORY | | | | [address];[place] | | | | | | [address] | | | | + + + + + + + + | Specimen | + + | | + + + + + + + | Performing | Address | City/State/Zipcode | Phone Number | | Organization | | | | + + + + + | [facility] | [address] | [place] [address] | [phone] | + + + + + Protime [...] | | | | | performed at [facility] | | | | | | [address];[place], [place] | | | | | | [address] | | | | + + + + + + + + | Specimen | + + | Blood | + + + + + + + | Performing | Address | City/State/Zipcode | Phone Number | | Organization | | | | + + + + + | [facility] | [address] | [place] [address] | [phone] | + + + + + CBC [...] | | | Absolute | performed at [facility];[address] | [address] | LABORATORY | | | | [address];[place], [place] | | | | | | [address] | | | | + + + + + + + + | Specimen | + + | Blood | + + + + + + + | Performing | Address | City/State/Zipcode | Phone Number | | Organization | | | | + + + + + | [facility] | [address] | [place] [address] | [phone] | + + + + + Basic [...] | | | | | performed at [facility];[address] | | | | | | [address];[place], [place] | | | | | | [address] | | | | + + + + + + + + | Specimen | + + | Blood | + + + + + + + | Performing | Address | City/State/Zipcode | Phone Number | | Organization | | | | + + + + + | [facility] | [address] [facility] | [place] [address] | [phone] | + + + + + Troponin I (09/12/2019 5:28 PM PST) + + + + + + | Component | Value | Ref Range | Performed | Pathologist | | | | | At | Signature | + + + + + + | Troponin I | 0.167 (H)Comment: 0.04 | 0.00 - 0.04 | [facility] | | | | ng/mL or [...] at | | | | | | [facility];[address];[place] [address] | | | | + + + + + + + + | Specimen | + + | Blood | + + + + + + + | Performing | Address | City/State/Zipcode | Phone Number | | Organization | | | | + + + + + | [facility] | [address] | [place] [address] | [phone] | + + + + + Protime [...] | | | | | performed at [facility];[address] | | | | | | [address];[place], [place] | | | | | | [address] | | | | + + + + + + + + | Specimen | + + | Blood | + + + + + + + | Performing | Address | City/State/Zipcode | Phone Number | | Organization | | | | + + + + + | [facility] | [address] | [place] [address] | [phone] | + + + + + Troponin I (09/12/2019 11:25 AM PST) + + + + + + | Component | Value | Ref Range | Performed | Pathologist | | | | | At | Signature | + + + + + + | Troponin I | 0.136 (H)Comment: 0.04 | 0.00 - 0.04 | [facility] | | | | ng/mL or [...] at | | | | | | [facility];[address];[place] [address] | | | | + + + + + + + + | Specimen | + + | Blood | + + + + + + + | Performing | Address | City/State/Zipcode | Phone Number | | Organization | | | | + + + + + | [facility] | [address] | [place] [address] | [phone] | + + + + + ECG [...] MD | | | | | | ([id number]) on 09/12/2019 | | | | | [...] | | | Absolute | performed at [facility];[address] | [address] | LABORATORY | | | | [address];[place], [place] | | | | | | [address] | | | | + + + + + + + + | Specimen | + + | Blood | + + + + + + + | Performing | Address | City/State/Zipcode | Phone Number | | Organization | | | | + + + + + | [facility] | [address] [facility] | [place] [address] | [phone] | + + + + + Basic [...] | | | | | performed at [facility] | | | | | | [facility];[place], [place] | | | | | | [address] | | | | + + + + + + + + | Specimen | + + | Blood | + + + + + + + | Performing | Address | City/State/Zipcode | Phone Number | | Organization | | | | + + + + + | [facility] | [address] | [place] [address] | [phone] | + + + + + Protime [...] | | | | | performed at [facility];[address] | | | | | | [address] [facility];[place], [place] | | | | | | [address] | | | | + + + + + + + + | Specimen | + + | Blood | + + + + + + + | Performing | Address | City/State/Zipcode | Phone Number | | Organization | | | | + + + + + | [facility] | [address] | [place] [address] | [phone] | + + + + + IR Angiogram Lower Extremity Left (09/11/2019 11:36 AM PST) + + | Specimen | + + | | + + + + ---+ | Narrative | Performed A t | + + ---+ | [place] | [facility] | | Health & Services [...] iliac artery. Using | | | a Moca a endarterectomy was performed of the common [...] | | | advanced and a 8 Mal[place]ian 23 cm Sheath was placed. A an [...] introduced a | | | 3 mm Kemp angioplasty balloon and dilated the common and [...] with a 10 mm | | | Kemp and the external iliac post dilated with an 8 mm Kemp. | | | Repeat contrast injection showed [...] signal in the profunda femoris, SFA, and TAXONOMIST. The left groin wound | | | was thoroughly irrigated. The incision was then closed in layers | | | first with a 2-0 Vicryl, then 3-0 Vicryl. Dunmor were used to | | | re-approximate [...] signal in the profunda femoris, SFA, and TAXONOMIST. The left | | |groin wound was [...] + | Performing | Address | City/State/[facility] | Phone Number | | Organization | [...] with homogeneous cut surfaces. | | | Creamery Worker sections of the lymph node are submitted [...] surfaces are laminated | | | herrera-yellow. Creamery Worker sections are submitted in cassette A1 | [...] component was performed | | | by [facility], [address] [place] [address] (Medical | | | Director: Radha Morse MD; CLIA# [id number]). Professional | | | [facility] | | | [address] (Medical | | | Director: Prasanth Suggs M.D.; CLIA#: [id number]). Diagnostician: | | | Radha Morse MDPathologistElectronically Signed 09/14/2019 | | |question about this report, please contact Client Services. | | | | | |PERFORMING LABORATORY: | | |The technical component was performed by [facility], [address] [place] [address] ([employer] Professional: Radha Morse MD; CLIA# [id number]). Professional interpretation was performed by | | |[facility] ([employer] Professional: Prasanth Suggs M.D.; CLIA#: [id number]). | | | | | |Diagnostician: Radha [...] | | | | | performed at [facility];[address] | | | | | | [address];[place], [place] | | | | | | [address] | | | | + + + + + + + + | Specimen | + + | Blood | + + + + + + + | Performing | Address | City/State/Zipcode | Phone Number | | Organization | | | | + + + + + | [facility] | [address] | [place] [address] | [phone] | + + + + + documented in this encounter Visit Diagnoses + + | Diagnosis | + + | PVD (peripheral vascular disease) ([facility]) - Primary Peripheral vascular disease, | | unspecified | + + | PAD (peripheral artery disease) ([facility]) Unspecified disorders of arteries and | | [...] | mL/hr | | | Hours, ONCE, [facility] 09/15/19 at 0015, | | AM PST | | | | | For 1 dose | | | | | | + +---------+ +------+-------+---+ + +---+ | | | + +---+ | amiodarone (PACERONE) tablet | | | 200 mg 200 mg, Oral, DAILY, | | | First dose on [facility] 09/24/19 at 0900 | | + +---+ [...] | | | | | | longer, [id number] use of | | | | | [...]
--- OUTSIDE RECORDS SUMMARY | ~2019-11-20 | XMS | Encounter Summary ---
Demographics + + + | Address | [address] | | | [place] [address] | + + + | Home Phone | | + + + | Preferred Language | Unknown | + + + | Marital Status | | + + + | Moravian Affiliation | Unknown | + + + | Race | Unknown | + + + | Ethnic Group | Unknown | + + + Author + + + | Author | [facility] | | | and Eduardana | + + + | Organization | [facility] | [...] [place] | | | | | [id number] | | + + + + + Care Team Providers + +------+ + | Care [facility]ishing [facility] Tool Setter Name | Role | Phone | + [...] | | | | VAS Carotid | [id number] | | | | | | Duplex | Phone: | | | | | | Bilateral | [phone] | | | | | | | Fax: | | | | | | | [phone] | | +--------+--------+ + + + + Encounter Details +--------+ + + + + | Date | Type | Department | Care Team | Description | +--------+ + + + + | 07/02/ | Hospital | [facility] | Pegyg Cason, NICOLE | Carotid stenosis, | | 2019 | Encounter | VASCULAR SURGERY | [address] | bilateral | | | | [address]TRASOUND [address] | [address] | | | | | [place] | [id number] | | | | | [place] | | | | | | [address] | | | | | | [phone] | | | +--------+ + + + [...] | 2020 | Visit | | [address] | | | | | | [place] | | | | | | [address] | | | | | | | [...]
--- OUTSIDE RECORDS SUMMARY | ~2019-11-20 | XMS | Encounter Summary ---
Demographics + + + | Address | [address] | | | [place] [address] | + + + | Home Phone [...] + | Author | [facility] | | | and Eduardana | + + + | Organization | [facility] | | | and Eduardana | [...] [place] | | | | | [address] | | + + + + + Care Team Providers + +------+ + | Care Die Drawing Checker Name | Role | Phone | [...] | | | | | Brachial | [place], [place] | | | | | | Index | [address] | | | | | | Resting | Phone: | | | | | | | [phone] | | | | | | | Fax: | | | | | | | [phone] | | +--------+--------+ + + + + Encounter Details +--------+ + + + + | Date | Type | Department | Care Team | Description | +--------+ + + + + | 09/29/ | Hospital | [facility] | Osmin Garber MD | Critical lower limb | | 2020 | 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 | | | [...] TBI: 0.91 | | | Waveforms: Triphasic COMMERCIAL FISHER, monophasic DP LEFT Dorsalis Pedis: 194 | [...] | | CLINICAL INFORMATION: | | Left MACARONI MAKER endarterectomy and iliac stents. | | | [...] | TBI: 0.91 | | Waveforms: Triphasic COMMERCIAL FISHER, monophasic DP | | | | LEFT [...]
--- OUTSIDE RECORDS SUMMARY | ~2019-11-20 | XMS | Encounter Summary ---
Demographics + + + | Address | [address] | | | [place] [address] | + + + | Home Phone [...] + | Organization | [facility] | | | and Eduardana | [...] [place] | | | | | [address] | | + + + + + Care Team Providers + +------+ + | Care General Cargo Clerk Name | Role | Phone | [...] [place] | | | | | | [address] | | | | | | [phone] | | | +--------+ + + + [...] | | | | | [place] | | | | | | [address] | | | | | | | | +--------+---------+ + + + documented as of this encounter Visit Diagnoses Not on filedocumented in this encounter"
--- OUTSIDE RECORDS SUMMARY | ~2019-11-20 | XMS | Encounter Summary ---
Demographics + + + | Address | [address] | | | [place] [address] | + + + | Home Phone | | + + + | Preferred Language | Unknown | + + + | Marital Status | | + + + | Holiness Affiliation | Unknown | + + + | Race | Unknown | + + + | Ethnic Group | Unknown | + + + Author + + + | Author | [facility] | | | and Eduardana | + + + | Organization | [facility] | | | and [...] [place] | | | | | [address] | | + + + + + Care Team Providers + +------+ + | Care Facility Assistant Name | Role | Phone | + +------+ + | Carlos Alberto Galeas MD | PCP | | + +------+ + Encounter Details +--------+ + + + + | Date | Type | Department | Care Team | Description | +--------+ + + + + | 02/03/ | Hospital | [facility] | Carlos Alberto Galeas | Stenosis of carotid | | 2018 | Encounter | MED CTR ULTRASOUND | MD [address] | artery, unspecified | | | | [address] | [place] | laterality | | | | [place], [place] | [place] [address] | | | | | [address] | [phone] | | | | | [phone] | | | | | | | [...] | | | | | | [facility] [place] | | | | | | [address] | | | | | | | [...] + + | Performing | Address | City/State[facility] | Phone Number | | Organization | | | | + +---------+ + + | [facility] | | | | + +---------+ + + documented in this encounter Visit Diagnoses + + | Diagnosis | + + | Stenosis of carotid artery, unspecified laterality | + + documented in this encounter"
--- OUTSIDE RECORDS SUMMARY | ~2019-11-20 | XMS | Encounter Summary ---
Demographics + + + | Address | [address] | | | [place] [address] | + + + | Home Phone | | + + + | Preferred Language | Unknown | + + + | Marital Status | | + + + | Amish Affiliation | Unknown | + + + | Race | Unknown | + + + | Ethnic Group | Unknown | + + + Author + + + | Author | [facility] | | | and Eduardana | + + + | Organization | [facility] | | | and [...] [place] | | | | | [address] | | + + + + + Care Team Providers + +------+ + | Care Food Safety Field Specialist Name | Role | Phone | + +------+ + | Carlos Alberto Galeas MD | PCP | | + +------+ + Encounter Details +--------+ + + + + | Date | Type | Department | Care Team | Description | +--------+ + + + + | 12/19/ | Imaging | [facility] | Provider, | | | 2017 | Exam | MED CTR EXTERNAL | MD [address] | | | | | IMAGING [address] | [address] [place] | | | | | [address] [place] | [place] [address] | | | | | [place] [address] | | | | | | [phone] | | | +--------+ + + + [...] | | | | | [place] [address] [place] | | | | | | [address] | | | | | | | [...] + documented in this encounter Results XR Femur Left 2+Vw (12/18/2016 5:30 PM PDT) + + | Specimen | + + | | + + + + + | Narrative | Performed At | + + + | External films for comparison only - no result from [facility]. | [facility] | + + + + +---------+ + + | Performing | Address | City/State/Zipcode | Phone Number | | Organization | | | | + +---------+ + + | [facility] | | | | + +---------+ + + documented in this encounter Visit Diagnoses Not on filedocumented in this encounter"
--- OUTSIDE RECORDS SUMMARY | ~2019-11-20 | XMS | Encounter Summary ---
Demographics + + + | Address | [address] | | | [place] [address] | + + + | Home Phone [...] | Organization | [facility] | | | and [...] [place] | | | | | [address] | | + + + + + Care Team Providers + +------+ + | Care Set Staff Fitter Name | Role | Phone | + +------+ + | Carlos Alberto Galeas MD | PCP | | + +------+ + Encounter Details +--------+ + + + + | Date | Type | Department | Care Team | Description | +--------+ + + + + | 01/28/ | Orders Only | [facility] | Al Conner V, | | | 2017 | | CONVERSION [address] | [address] | | | | | [address] | [place], [place] | | | | | [place], [place] | [address] | | | | | [address] | | | | | | [phone] | | | +--------+ + + + [...] [place] | | | | | | [address] | | | | | | | | +--------+---------+ + + + documented as of this encounter Procedures + +--------+ + + + | Procedure Name | Priori | Date/Time | Associated Diagnosis | Comments | | | ty | | | | + +--------+ + + + | ECHO INTERPRETATION | Routin | 01/28/2017 | | Results for this | | OF OUTSIDE FILMS | e | 10:04 AM | | procedure are in the | | | | PDT | | results section. | + +--------+ + + + documented in this encounter Results ECHO Interpretation of Outside Films (01/28/2017 10:04 AM PDT) + + | Specimen | + + | | + + + + + | Impressions | Performed At | + + + | 1. Overall left ventricular systolic function is normal with, an EF | | | between 65 - 70 %. 2. The right ventricle is normal in size and | | | function. 3. There is moderate bi-atrial enlargement. 4. The | | | ascending aorta (41 mm) and the sinuses of Valsalva (44 mm) are mildly | | | dilated. 5. No significant valvular abnormalities are noted. | | + + + + + + | Narrative | Performed At | + + + | Patient Name: Deborah Thomason Date of : 1930 | | | Performing Physician: AKHIL NIXON MD | | | | | | INDICATIONS Decompensated heart failure CONCLUSIONS | | | 1. Overall left ventricular systolic function is normal | | | with, an EF between 65 - 70 %. 2. The right ventricle is normal in | | | size and function. 3. There is moderate bi-atrial enlargement. 4. | | | The ascending aorta (41 mm) and the sinuses of Valsalva (44 mm) are | | | mildly dilated. 5. No significant valvular abnormalities are noted. | | | FINDINGS -------- ECG rhythm: Atrial fibrillation with a mildly | | | rapid ventricular rate, 102 bpm. Study: A 2-dimensional transthoracic | | | echocardiogram with m-mode, spectral and color flow Doppler was | | | perfomed at [facility]. Study: This was a technically | | | adequate study. Left Ventricle: Overall left ventricular systolic | | | function is normal with, an EF between 65 - 70 %. Left Ventricle: The | | | left ventricle cavity size is normal. Left Ventricle: There is mild | | | concentric left ventricular hypertrophy, with f Left Ventricle: ocal | | | hypertrophy of the basal septum. Atri Left Ventricle: al fibrillation | | | prevents accurate assessment of diastolic function. Right Ventricle: | | | The right ventricle is normal in size and function. Left Atrium: The | | | left atrium is moderately enlarged. Right Atrium: The right atrium | | | is moderately enlarged. Aortic Valve: Aortic valve is trileaflet and | | | is mildly thickened and calcified, consistent with m Aortic Valve: | | | ild aortic valve sclerosis, without evidence of aortic stenosis. | | | Aortic Valve: There is no evidence of aortic regurgitation. Mitral | | | Valve: Mild mitral regurgitation is present. Mitral Valve: Mild | | | mitral annular calcification present. Tricuspid Valve: The tricuspid | | | valve appears structurally normal. Tricuspid Valve: Mild tricuspid | | | regurgitation present. Tricuspid Valve: There is no evidence of | | | pulmonary hypertension. Tricuspid Valve: The right ventricular | | | systolic pressure (pulmonary artery systolic pressure), as measured by | | | Doppler, is 30-35 mm Hg. Pulmonic Valve: The pulmonic valve was not | | | well visualized. Pulmonic Valve: Trace pulmonic regurgitation. | | | Pericardium: There is no pericardial effusion. IVC/Hepatic Veins: The | | | inferior vena cava is normal in size and collapses > 50 % with sniff, | | | indicating normal central venous pressures. Aorta: The ascending | | | aorta (41 mm) and the sinuses of Valsalva (44 mm) are dilated. | | | MEASUREMENTS Ao asc: 4.14 cm Ao sinus: 4.46 cm | | | LA Diam: 4.44 cm EDV(Teich): 80.87 ml IVSd: 1.57 cm | | | LVIDd: 4.25 cm LVPWd: 1.16 cm LVOT Area: 3.71 cm2 LVOT | | | Diam: 2.17 cm %FS: 34.28 % EF(Teich): 63.65 % ESV(Teich): | | | 29.39 ml LVIDs: 2.79 cm SV(Teich): 51.47 ml RVIDd: 2.59 | | | cm LVEF MOD A2C: 54.53 % SV MOD A2C: 50.70 ml LVEF MOD A4C: | | | 71.13 % SV MOD A4C: 83.08 ml EF Biplane: 63.87 % LVEDV MOD | | | BP: 104.99 ml LVESV MOD BP: 37.92 ml LVEDV MOD A2C: 92.97 | | | ml LVLd A2C: 7.51 cm LVEDV MOD A4C: 116.79 ml LVLd A4C: | | | 7.69 cm LVESV MOD A2C: 42.27 ml LVLs A2C: 6.22 cm LVESV MOD | | | A4C: 33.71 ml LVLs A4C: 6.03 cm LAESV(A-L): 127.30 ml | | | LAESV Index (A-L): 65.28 ml/m2 LAAs A2C: 25.62 cm2 LAESV A-L | | | A2C: 92.62 ml LALs A2C: 6.01 cm LAAs A4C: 35.22 cm2 LAESV | | | A-L A4C: 161.80 ml LALs A4C: 6.50 cm RAAs: 21.87 cm2 RAESV | | | A-L: 63.80 ml RAESV MOD: 62.81 ml RALs: 6.36 cm AV maxPG: | | | 5.69 mmHg AV meanP.13 mmHg AV Vmax: 1.19 m/s AV | | | Vmean: 0.83 m/s AV VTI: 20.09 cm MAYA Vmax: 2.32 cm2 MAYA | | | (VTI): 2.62 cm2 AVAI Vmax: 0.00 cm2/m2 AVAI (VTI): 0.00 | | | cm2/m2 LVOT maxP.22 mmHg LVOT meanP.43 mmHg LVSI | | | Dopp: 27.01 ml/m2 LVSV Dopp: 52.68 ml LVOT Vmax: 0.74 m/s | | | LVOT Vmean: 0.58 m/s LVOT VTI: 14.18 cm MV E Ulises: 0.99 m/s | | | MV DecT: 159.10 ms Septal e': 0.06 m/s Septal E/e': 15.21 | | | Lateral e': 0.11 m/s Lateral E/e': 8.45 RAP: 5 mmHg RVSP: | | | 30.09 mmHg TR maxP.09 mmHg TR Vmax: 2.50 m/s | | | Automobile Carpets Molder: [id number] Authenticated by: AKHIL NIXON MD Report | | | Date/Time: 01-29-2017 16:24:52 | | + + + + + | Procedure Note | + + | Zac Pierce Conversion - 03/12/2019 6:51 PM PDT Patient Name: Jasper Thomason of | | : 1930 Performing Physician: AKHIL NIXON, | | MD INDICATIONS D | | ecompensated heart failure CONCLUSIONS 1. Overall left ventricular systolic | | function is normal with, an EF between 65 - 70 %.2. The right ventricle is normal in | | size and function.3. There is moderate bi-atrial enlargement.4. The ascending aorta (41 | | mm) and the sinuses of Valsalva (44 mm) are mildly dilated. 5. No significant valvular | | abnormalities are noted. FINDINGS--------ECG rhythm: Atrial fibrillation with a mildly | | rapid ventricular rate, 102 bpm.Study: A 2-dimensional transthoracic echocardiogram with | | m-mode, spectral and color flow Doppler was perfomed at [facility].Study: | | This was a technically adequate study.Left Ventricle: Overall left ventricular systolic | | function is normal with, an EF between 65 - 70 %.Left Ventricle: The left ventricle | | cavity size is normal.Left Ventricle: There is mild concentric left ventricular | | hypertrophy, with fLeft Ventricle: ocal hypertrophy of the basal septum. AtriLeft | | Ventricle: al fibrillation prevents accurate assessment of diastolic function.Right | | Ventricle: The right ventricle is normal in size and function.Left Atrium: The left | | atrium is moderately enlarged.Right Atrium: The right atrium is moderately | | enlarged.Aortic Valve: Aortic valve is trileaflet and is mildly thickened and calcified, | | consistent with mAortic Valve: ild aortic valve sclerosis, without evidence of aortic | | stenosis.Aortic Valve: There is no evidence of aortic regurgitation.Mitral Valve: Mild | | mitral regurgitation is present.Mitral Valve: Mild mitral annular calcification | | present.Tricuspid Valve: The tricuspid valve appears structurally normal.Tricuspid | | Valve: Mild tricuspid regurgitation present.Tricuspid Valve: There is no evidence of | | pulmonary hypertension.Tricuspid Valve: The right ventricular systolic pressure | | (pulmonary artery systolic pressure), as measured by Doppler, is 30-35 mm Hg.Pulmonic | | Valve: The pulmonic valve was not well visualized.Pulmonic Valve: Trace pulmonic | | regurgitation.Pericardium: There is no pericardial effusion.IVC/Hepatic Veins: The | | inferior vena cava is normal in size and collapses > 50 % with sniff, indicating normal | | central venous pressures.Aorta: The ascending aorta (41 mm) and the sinuses of Valsalva | | (44 mm) are dilated. MEASUREMENTS Ao asc: 4.14 cmAo sinus: 4.46 cmLA | | Diam: 4.44 cmEDV(Teich): 80.87 mlIVSd: 1.57 cmLVIDd: 4.25 cmLVPWd: 1.16 cmLVOT | | Area: 3.71 gv0LIIP Diam: 2.17 cm%FS: 34.28 %EF(Teich): 63.65 %ESV(Teich): | | 29.39 mlLVIDs: 2.79 cmSV(Teich): 51.47 mlRVIDd: 2.59 cmLVEF MOD A2C: 54.53 %SV | | MOD A2C: 50.70 mlLVEF MOD A4C: 71.13 %SV MOD A4C: 83.08 mlEF Biplane: 63.87 | | %LVEDV MOD BP: 104.99 mlLVESV MOD BP: 37.92 mlLVEDV MOD A2C: 92.97 mlLVLd A2C: | | 7.51 cmLVEDV MOD A4C: 116.79 mlLVLd A4C: 7.69 cmLVESV MOD A2C: 42.27 mlLVLs A2C: | | 6.22 cmLVESV MOD A4C: 33.71 mlLVLs A4C: 6.03 cmLAESV(A-L): 127.30 mlLAESV Index | | (A-L): 65.28 ml/m2LAAs A2C: 25.62 [id number] A-L A2C: 92.62 mlLALs A2C: 6.01 | | cmLAAs A4C: 35.22 [id number] A-L A4C: 161.80 mlLALs A4C: 6.50 cmRAAs: 21.87 | | [id number] A-L: 63.80 mlRAESV MOD: 62.81 mlRALs: 6.36 cmAV maxP.69 mmHgAV | | meanP.13 mmHgAV Vmax: 1.19 m/Zoey Vmean: 0.83 m/Zoey VTI: 20.09 cmAVA Vmax: | | 2.32 cm2AVA (VTI): 2.62 [id number] Vmax: 0.00 cm2/m2AVAI (VTI): 0.00 cm2/m2LVOT | | maxP.22 mmHgLVOT meanP.43 mmHgLVSI Dopp: 27.01 ml/m2LVSV Dopp: 52.68 | | mlLVOT Vmax: 0.74 m/sLVOT Vmean: 0.58 m/sLVOT VTI: 14.18 cmMV E Ulises: 0.99 m/sMV | | DecT: 159.10 msSeptal e': 0.06 m/sSeptal E/e': 15.21Lateral e': 0.11 m/sLateral | | E/e': 8.45RAP: 5 mmHgRVSP: 30.09 mmHgTR maxP.09 mmHgTR Vmax: 2.50 m/s | | Automobile Carpets Molder: SHAEuthenticated by: Zoe PRESLEY Date/Time: 01-29-2017 16:24:52 | | IMPRESSION: 1. Overall left ventricular systolic function is normal with, an EF between | | 65 - 70 %.2. The right ventricle is normal in size and function.3. There is moderate | | bi-atrial enlargement.4. The ascending aorta (41 mm) and the sinuses of Valsalva (44 mm) | | are mildly dilated. 5. No significant valvular abnormalities are noted. | |LA Diam: 4.44 cm | |EDV(Teich): 80.87 ml | |IVSd: 1.57 cm | |LVIDd: 4.25 cm | |LVPWd: 1.16 cm | |LVOT Area: 3.71 cm2 | |LVOT Diam: 2.17 cm | |%FS: 34.28 % | |EF(Teich): 63.65 % | |ESV(Teich): 29.39 ml | |LVIDs: 2.79 cm | |SV(Teich): 51.47 ml | |RVIDd: 2.59 cm | |LVEF MOD A2C: 54.53 % | |SV MOD A2C: 50.70 ml | |LVEF MOD A4C: 71.13 % | |SV MOD A4C: 83.08 ml | |EF Biplane: 63.87 % | |LVEDV MOD BP: 104.99 ml | |LVESV MOD BP: 37.92 ml | |LVEDV MOD A2C: 92.97 ml | |LVLd A2C: 7.51 cm | |LVEDV MOD A4C: 116.79 ml | |LVLd A4C: 7.69 cm | |LVESV MOD A2C: 42.27 ml | |LVLs A2C: 6.22 cm | |LVESV MOD A4C: 33.71 ml | |LVLs A4C: 6.03 cm | |LAESV(A-L): 127.30 ml | |LAESV Index (A-L): 65.28 ml/m2 | |LAAs A2C: 25.62 cm2 | |LAESV A-L A2C: 92.62 ml | |LALs A2C: 6.01 cm | |LAAs A4C: 35.22 cm2 | |LAESV A-L A4C: 161.80 ml | |LALs A4C: 6.50 cm | |RAAs: 21.87 cm2 | |RAESV A-L: 63.80 ml | |RAESV MOD: 62.81 ml | |RALs: 6.36 cm | |AV maxP.69 mmHg | |AV meanP.13 mmHg | |AV Vmax: 1.19 m/s | |AV Vmean: 0.83 m/s | |AV VTI: 20.09 cm | |MAYA Vmax: 2.32 cm2 | |MAYA (VTI): 2.62 cm2 | |AVAI Vmax: 0.00 cm2/m2 | |AVAI (VTI): 0.00 cm2/m2 | |LVOT maxP.22 mmHg | |LVOT meanP.43 mmHg | |LVSI Dopp: 27.01 ml/m2 | |LVSV Dopp: 52.68 ml | |LVOT Vmax: 0.74 m/s | |LVOT Vmean: 0.58 m/s | |LVOT VTI: 14.18 cm | |MV E Ulises: 0.99 m/s | |MV DecT: 159.10 ms | |Septal e': 0.06 m/s | |Septal E/e': 15.21 | |Lateral e': 0.11 m/s | |Lateral E/e': 8.45 | |RAP: 5 mmHg | |RVSP: 30.09 mmHg | |TR maxP.09 mmHg | |TR Vmax: 2.50 m/s | | | |Automobile Carpets Molder: | |Authenticated by: AKHIL NIXON MD | |Report Date/Time: 01-29-2017 16:24:52 | | | |IMPRESSION: | |1. Overall left ventricular systolic function is normal with, an EF between 65 - 70 %. | |2. The right ventricle is normal in size and function. | |3. There is moderate bi-atrial enlargement. | |4. The ascending aorta (41 mm) and the sinuses of Valsalva (44 mm) are mildly dilated. 5. N o significant valvular abnormalities are noted. | + + documented in this encounter Visit Diagnoses Not on filedocumented in this encounter"
--- OUTSIDE RECORDS SUMMARY | ~2019-11-20 | XMS | Encounter Summary ---
Demographics + + + | Address | [address] | | | [place] [address] | + + + | Home Phone | | + + + | Preferred Language | Unknown | + + + | Marital Status | | + + + | Mormonism Affiliation | Unknown | + + + | Race | Unknown | + + + | Ethnic Group | Unknown | + + + Author + + + | Author | [facility] | | | and [place] | + + + | Organization | [facility] [...] [place] | | | | | [address] | | + + + + + Care Team Providers + +------+ + | Care Monogram Machine Operator Name | Role | Phone | + +------+ + | Carlos Alberto Galeas MD | PCP | | + +------+ + Encounter Details +--------+ + + + + | Date | Type | Department | Care Team | Description | +--------+ + + + + | 02/03/ | [facility] | [facility] | Carlos Alberto Galeas | Loss of weight | | 2018 | Encounter | MED CTR XRAY [address] | MD [address] | | | | | [place] | [place] | | | | | [place] [address] | [place] [address] | | | | | [phone] | | | | | | | [...] [place] | | | | | | [address] | | | | | | | [...]
--- OUTSIDE RECORDS SUMMARY | ~2019-11-20 | XMS | Encounter Summary ---
Demographics + + + | Address | [address] | | | [place] [address] | + + + | Home Phone | | + + + | Preferred Language | Unknown | + + + | Marital Status | | + + + | Anglican Affiliation | Unknown | + + + | Race | Unknown | + + + | Ethnic Group | Unknown | + + + Author + + + | Author | [facility] | | | and [place] | + + + | Organization | [facility] | | | and [...] [place] | | | | | [address] | | + + + + + Care Team Providers + +------+ + | Care Usability Architect Name | Role | Phone | [...] [address] | | | | [address] [place], [place] | [address] [place] | | | | | [address] | [place] [address] | | | | | [phone] | [phone] | | | | | | | [...] | | | | | [place] | | | | | | [address] | | | | | | | [...]
--- OUTSIDE RECORDS SUMMARY | ~2019-11-20 | XMS | Encounter Summary ---
Demographics + + + | Address | [address] | | | [place] [address] | + + + | Home Phone [...] Organization | [facility] | | | and [place] [...] [place] | | | | | [address] | | + + + + + Care Team Providers + +------+ + | Care Insulator Technician Name | Role | Phone | [...] | | | [address] [place] | [place] [address] | | | | | [place] [address] | | | | | | [phone] | | | +--------+ + + + [...] | | | | | [place] | | | | | | [address] [...] for comparison only - no result from [place]. | [facility] | + + + + +---------+ + + | Performing | Address | City/State/Zipcode | Phone Number | | Organization | | | | + +---------+ + + | [facility] | | | | + +---------+ + + documented in this encounter Visit Diagnoses Not on filedocumented in this encounter"
--- OUTSIDE RECORDS SUMMARY | ~2019-11-20 | XMS | Encounter Summary ---
Demographics + + + | Address | [address] | | | [place] [address] | + + + | Home Phone | | + + + | Preferred Language | Unknown | + + + | Marital Status | | + + + | Sikh Affiliation | Unknown | + + + | Race | Unknown | + + + | Ethnic Group | Unknown | + + + Author + + + | Author | [facility] | | | and [place] | + + + | Organization | [facility] | | | and [place] [...] [place] | | | | | [address] | | + + + + + Care Team Providers + +------+ + | Care Medicare Biller Name | Role | Phone | + +------+ + | Carlos Alberto Galeas MD | PCP | | + +------+ + Encounter Details +--------+ + + + + | Date | Type | Department | Care Team | Description | +--------+ + + + + | 03/12/ | Hospital | [facility] | Valente Silvestre, | Interstitial lung | | 2018 | Encounter | MED CTR PULMONARY | MD [address] | disease (HCC) | | | | FUNCTION [address] | [place], [place] | | | | | [place], | [address] | | | | | [place] [address] | | | | | | [phone] | | | +--------+ + + + [...] 125 mcg by | | 0 | /09/10 | | | 125 mcg tablet | [...] | | | | tablet | Isaac [place], [place], | | | | | | | [...] | | | | | [place], [place] | | | | | | [address] | | | | | | | | +--------+---------+ + + + documented as of this encounter Procedures + +--------+ + + + | Procedure Name | Priori | Date/Time | Associated Diagnosis | Comments | | | ty | | | | + +--------+ + + + | P[facility] PULMONARY | [facility] | 03/12/2018 | Interstitial lung | | | FUNCTION TESTING | | 9:47 AM | disease (HCC) | | | ORDERS | | PDT | | | + +--------+ + + + documented in this encounter Visit Diagnoses + + | Diagnosis | + + | Interstitial lung disease (HCC) Postinflammatory pulmonary fibrosis | + + documented in this encounter"
--- OUTSIDE RECORDS SUMMARY | ~2019-11-20 | XMS | Encounter Summary ---
Demographics + + + | Address | [address] | | | [place] [address] | + + + | Home Phone | | + + + | Preferred Language | Unknown | + + + | Marital Status | | + + + | Faith Affiliation | Unknown | + + + | Race | Unknown | + + + | Ethnic Group | Unknown | + + + Author + + + | Author | [facility] | | | and Eduardana | + + + | Organization | [facility] [...] [place] | | | | | [address] | | + + + + + Care Team Providers + +------+ + | Care Mental Health Advanced Practice Nurse Name | Role | Phone | + +------+ + | Carlos Alberto Galeas MD | PCP | | + +------+ + Encounter Details +--------+ + + + + | Date | Type | Department | Care Team | Description | +--------+ + + + + | 03/12/ | Hospital | [facility] | Valente Silvestre, | Interstitial lung | | 2018 | Encounter | MED CTR PULMONARY | MD [address] | disease (HCC) | | | | FUNCTION [address] | [place], [place] | | | | | [place], | [address] | | | | | [place] [address] | | | | | | [phone] | | | +--------+ + + + [...] | | | | | [place], [place] | | | | | | [address] | | | | | | | [...]
--- OUTSIDE RECORDS SUMMARY | ~2019-11-20 | XMS | Encounter Summary ---
Demographics + + + | Address | [address] | | | [place] [address] | + + + | Home Phone [...] | Organization | [facility] | | [...] [place] | | | | | [address] | | + + + + + Care Team Providers + +------+ + | Care Sample Wrapper Name | Role | Phone | + [...] + + | 12/30/ | Office | [facility] | Michael Alston | Patient left without | | 2019 | Visit | SURGERY [address] | MD Dante, FACS [address] | being seen (Primary | | | | [place], [place] | [address] [facility] | Dx) | | | | [address] | [place] [address] | | | | | [phone] | [phone] | | | | | | | [...] | | | | | [place] | | | | | | [address] | | | | | | | | +--------+---------+ + + + documented as of this encounter Visit Diagnoses + + | Diagnosis | + + | Patient left without being seen - Primary Surgical or other procedure not carried out | | because of patient's decision | + + documented in this encounter
--- OUTSIDE RECORDS SUMMARY | ~2019-11-20 | XMS | Encounter Summary ---
Demographics + + + | Address | [address] | | | [place] [address] | + + + | Home Phone [...] [facility] | | | and [place] [...] [place] | | | | | [address] | | + + + + + Care Team Providers + +------+ + | Care Lead Database Developer Name | Role | Phone | + +------+ + | Carlos Alberto Galeas MD | PCP | | + +------+ + Encounter Details +--------+ + + + + | Date | Type | Department | Care Team | Description | +--------+ + + + + | 02/03/ | Hospital | [facility] | Adal, Carlos Alberto | PVD (peripheral | | 2018 | Encounter | MED CTR ULTRASOUND | MD Dylan [address] | vascular disease) | | | | [address] | [place] | ([facility]) | | | | [address] | [place] [address] | | | | | [address] | [phone] | | | | | [phone] | | | +--------+ + + + [...] | | | | | [address] [facility] [place] [place] | | | | | | [address] | | | | | | | [...] the | | | | PDT | ([facility]) | results section. | [...]
--- OUTSIDE RECORDS SUMMARY | ~2019-11-20 | XMS | Encounter Summary ---
Demographics + + + | Address | [address] | | | [place] [address] | + + + | Home Phone [...] Organization | [facility] | | | and [...] [place] | | | | | [address] | | + + + + + Care Team Providers + +------+ + | Care Rocket Engine Mechanic Name | Role | Phone | [...] | Vascular | Diagnoses | Alsamara, | [facility] | | | Services | Surgery | Chronic | MD Paolo | Surgery | | | Required | | atrial | [address] | | | | | fibrillation | [address] | [place] | | | | | (HCC) | [address] [address] | [place], [place] | | | | | Essential | [place], [place] | [address] | | | | | hypertension | [address] | Phone: | | | | | PVD | Phone: | [phone] | | | | | (peripheral | [phone] | Fax: | | | | | vascular | Fax: | [phone] | | | | | disease) | [phone] | | | | | | ([facility]) | | | | | | [...] + + | 07/02/ | Hospital | [facility] | Yoav, Si, DNP | PAD (peripheral | | 2019 | Encounter | VASCULAR SURGERY | [address] | artery disease) | | | | ULTRASOUND [address] | [place], [place] | ([facility]) | | | | [address] [place] | [address] | | | | | [place], [place] | | | | | | [address] | | | | | | [phone] | | | +--------+ + + + [...] | | | | | [place] | | | | | | [address] | | | | | | | | +--------+---------+ + + + documented as of this encounter Visit Diagnoses + + | Diagnosis | + + | PAD (peripheral artery disease) (HCC) Unspecified disorders of arteries and | | arterioles | + + documented in this encounter"
--- OUTSIDE RECORDS SUMMARY | ~2019-11-20 | XMS | Encounter Summary ---
Demographics + + + | Address | [address] | | | [place] [address] | + + + | Home Phone [...] Organization | [facility] Kelly | | | and Eduardana [...] [place] | | | | | [address] | | + + + + + Care Team Providers + +------+ + | Care Hose Handler Name | Role | Phone | + [...] | | | | | ([facility]) | | | | | | | Procedures | | | | | | | ENDARTERECTO | | | | | | | GERALD DANIELS | | | +--------+--------+ + + + + Encounter Details +--------+---------+ + + + | Date | Type | Department | Care Team | Description | +--------+---------+ + + + | 09/11/ | Surgery | [facility] | Osmin Garber MD | ENDARTERECTOMY | | 2020 | [facility] | [address] | FEMORAL | | | | OPERATING ROOM [address] | [facility] Osvaldo [facility] | | | | | [address] | [place] [address] | | | | | [place], [place] | [phone] | | | | | [phone] | | | | | | [phone] | | | +--------+---------+ + + + [...] might be different fr om the original. [facility]: Hospitalist Physician Discharge Summary Patient [...] the patient adamantly refused going to a halfway facil [facility]. The patient's son and indicated they felt comfortable with him returning home. As a r esult, he was discharged home with care of his family. tube worker was involved, in assistance with home [...] is instructed to follow up with his title search manager, Dr. Selby in approximately 2 weeks. 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 PVD (peripheral vascular disease) (HCC) 02/06/2018 PVD (peripheral vascular disease) (HCC) Urinary retention Past Surgical History: Procedure Laterality Date ARTERY SURGERY Left 09/11/2019 Procedure: ENDARTERECTOMY FEMORAL; Surgeon: Osmin Garber MD; Location: [facility] MAIN OR CAROTID ENDARTERECTOMY Right CATARACT REMOVAL WITH IMPLANT Bilateral 03/30/10 and 04/27/10 CORONARY ANGIOPLASTY without stent [facility] Approx [id number] FEMUR FRACTURE SURGERY Right 12/19/2016 Procedure: ORIF IM RODDING FEMORAL ANTEGRADE; Surgeon: Lambert Mancuso MD; Location: [facility] MAIN OR FEMUR FRACTURE SURGERY Left 12/19/2016 Procedure: ORIF IM RODDING FEMORAL TROCHANTERIC NAIL; Surgeon: Lambert Mancuso MD; Locati on: [facility] MAIN OR Heart/ Arrhythmia ablation Right femoral to below knee popliteal reverse saphenus vein graft 12/01/2013 Right common femoral endarterectomy with Vascu-Guard patch angioplasty, Right external mk ac stent angioplasty 7x29 mm, Angiography, Harvesting right greater saphenous vein, Dual - l umen on Q pain pump placement. [facility] - Dr. Delaney Right thigh biopsy 10/24/2011 nonspecific chronic dermatitis Ultrasound guided access, right common femoral artery 11/30/2013 Right iliac angiography, Right femoral angiography with runoff. [facility] - Dr. Delaney Discharged Condition: Stable [...] aka: COUMADIN Carlos Alberto Galeas [place] [address] [place] [address] In 1 week Osmin Garber MD [address] [facility] [place] [facility] [address] In 2 weeks Follow-up post vascular intervention, staple removal Paolo Selby MD [address] [facility] [address] In 2 weeks Follow-up for atrial fibrillation 2019 1:54 PM Signed: Electronically signed by: Thor Yang MD, 2019 1:54 PM [facility] Discharge took more than 35 minutes, to include final examination, discussion of admission, and preparation of prescriptions, instructions for ongoing care, follow up and dictation of summary. Portions of this chart may have been created with Opzi voice recognition software. Occasi onal wrong-word or [...] and son. Pt sent with prescription s. arky Enamorado RPH - 2019 1:54 PM PST Pharmacy Warfarin Monitoring: Deborah Thomason male 88 y.o., admitted for limb ischemia. He underwent planned CARGO MATE endarterectomy and angio plasty on 09/11/19. Per portfolio accountant reconciliation, warfarin was on hold since 09/03 [...] might be diff erent from the original. [facility] Service: Vascular Surgery Progress Note Hospital [...] care. Chart check complete. Jenny Marie RN ham, Marky Montoya [facility] - 09/19/2019 2:09 PM PST Pharmacy Warfarin Monitoring: Deborah Thomason male 88 y.o., admitted for limb ischemia. He underwent planned CARGO MATE endarterectomy and angio plasty on 09/11/19. Per portfolio accountant reconciliation, warfarin was on hold since 09/03 [...] and modify therapy as indication. MARKY ENAMORADO RP 2:00 PM 09/19/2019 Kendell Nava PA - 09/19/2019 8:26 AM PSTFormatting of this note might be dif ferent from the original. [facility] Service: Vascular Surgery Progress Note Hospital [...] MD - 0 09/19/2019 7:56 AM PST [facility] Adult Hospitalist Progress Note Hospital Day: [...] approximately 24 hours [facility]. Physical therapy recommending [...] endarterectomy -Continue Plavix -PT, will require SNF; steam pipe fitter to assist with placement, patient agreeable #4. [...] this chart may have been created with Opzi voice recognition software. Occasi onal wrong-word or [...] might be different from the or iginal. [facility] Adult Hospitalist Progress Note Hospital Day: [...] approximately 24 hours and transferred to the [facility] service on 09/18/2019 OBJECTIVE Vital Signs: BP [...] this chart may have been created with Opzi voice recognition software. Occasi onal wrong-word or sound-alike substitutions may have occurred due to the inherent ness itations of voice recognition software. Please read the chart carefully and recognize, using context, where these substitutions have occurred Anurag Amato MD - 09/18/2019 1:24 PM PST [facility] Service: Cardiology Progress Note Hospital Day: [...] Patient was admitted and underwen t today CARGO MATE endarterectomy and angioplasty. EBL was 200-400ml. He [...] note might be different from the origin [facility] Service: Labor Specialist Progress Note Deborah Thomason 88 y.o. Hospital [...] Code Jeramy Chapa MD 09/18/2019 Dictation software, Opzi, was used which may contain error with [...] Patient reports chronic hypotension. Susanna Simon MD Labor Specialist 09/18/2019 Please bill 40 minutes of critical care time spent evaluating the patient, reviewing the da ta and formulating a plan exclusive of procedures. Anurag Villa MD - 09/17/2019 5: 24 PM PST [facility] Service: Cardiology Progress Note Hospital Day: [...] Patient was admitted and underwen t today CARGO MATE endarterectomy and angioplasty. EBL was 200-400ml. He [...] Code Anurag Villa MD roctor, Elías Suarez, [facility] - 09/17/2019 2:53 PM PSTFormatting of this note might be different from the origi nal. Pharmacy Warfarin Monitoring: Deborah Thomason male 88 y.o., admitted for limb ischemia. He underwent planned CARGO MATE endarterectomy and angio plasty on 09/11/19. Per portfolio accountant reconciliation, warfarin was on hold since 09/03 [...] Robertson PA - 09/17/2019 1:20 PM PST [facility] Service: Vascular Surgery Progress Note Hospital Day: LOS: 6 days Post-Op Day: 3 ASSESSMENT & PLAN POD #3, S/p Lt LIA, EIA stent, Lt CARGO MATE endarterectomy for LLE CLI, transferred to ICU [...] Status: full JOSÉ Mooney, PA-C Vascular Surgery Jeramy Grove MD - 09/17/2019 8:29 AM PST [facility] Service: Labor Specialist Progress Note Deborah Thomason 88 y.o. Hospital Day: LOS: 6 days Post-Op Day: 6 Days Post-Op Consulting Physicians Treatment Team: Anurag Villa MD SUBJECTIVE Patient Summary:The patient is a88 y.o.malewith significant past medical his tory ofatrial fib/flutter on Coumadin, bilateral carotid artery disease with previous R ca rotid endarterectomy, CVA (without residual deficit), PVD, and [facility] [...] Code Jeramy Chapa MD 09/17/2019 Dictation software, Opzi, was used which may contain error with [...] phenylephrine as BP tolerates. Susanna Simon MD Labor Specialist 09/17/2019 Please bill 40 minutes of critical [...] this note [facility] be [facility]: [facility] Progress Note Hospital Day: [...] Patient was admitted and underwen t today CARGO MATE endarterectomy and angioplasty. EBL was 200-400ml. He [...] might be different from the origin al. [facility]: Labor Specialist Progress Note Deborah Thomason 88 y.o. Hospital [...] Code Jeramy Chapa MD 09/16/2019 Dictation software, Opzi, was used which may contain error with [...] phenylephrine as BP tolerates. Susanna Simon MD Labor Specialist 09/16/2019 1:33 PM Please bill 40 minutes of critical care time spent evaluating the patient, reviewing the da ta and formulating a plan exclusive of procedures. Kendell Robertson PA - 09/16/2019 8:[address] [facility] Service: Vascular Surgery Progress Note Hospital Day: LOS: 5 days Post-Op Day: 2 ASSESSMENT & PLAN POD #2, S/p Lt LIA, EIA stent, Lt CARGO MATE endarterectomy for LLE CLI, transferring to ICU [...] 09/22/2019) Angela Cornelius RD 09/15/2019 4:05 PM ammi, Jeramy Monroy MD - 09/15/2019 2:47 PM PST [facility] Service: Labor Specialist Progress Note Deborah Thomason 88 y.o. Hospital [...] Code Jeramy Chapa MD 09/15/2019 Dictation software, Opzi, was used which may contain error with [...] phenylephrine as BP tolerates. Susanna Simon MD Labor Specialist [facility] 09/15/2019 4:12 PM Please bill 40 minutes of critical care time spent evaluating the patient, reviewing the da ta and formulating a plan exclusive of procedures. Karley Tobar [facility] - 09/15/2019 2:08 PM PSTFormatting of this note might be differen t from the original. Pharmacy Warfarin Monitoring: Deborah Thomason male 88 y.o., admitted for limb ischemia. He underwent planned CARGO MATE endarterectomy and angio plasty on 09/11/19. Per portfolio accountant reconciliation, warfarin was on hold since 09/03 [...] modify therapy as indicated. Karley Tobar, PharmD, PSYCHIATRICCP 09/15/19 2:08 PM Hai Amato MD - 09/15/2019 9:56 AM PSTFormatting of this note might be different from the kailey cuevas [facility] Service: Cardiology Progress Note Hospital Day: [...] Patient was admitted and underwen t today CARGO MATE endarterectomy and angioplasty. EBL was 200-400ml. He [...] Code Status: Full Code Anurag Villa MD [facility] - 09/15/2019 7:28 AM PSTVascular [...] I, DO - 09/14/2019 1:54 PM PST [facility] Progress Note Primary Care Physician: [...] this note might be different from the [facility] Service: Cardiology Progress Note Hospital Day: [...] Patient was admitted and underwen t today CARGO MATE endarterectomy and angioplasty. EBL was 200-400ml. He [...] Consult Continuous Infusions amiodarone 0.5 mg/min (09/14/19 8924) niCARdipine Stopped (09/11/19 1706) phenylephrine Stopped (09/14/19 0966) PRN Medications HYDROmorphone, Magnesium replacement - NON [...] Full Code Anurag Villa MD Karley Pichardo [facility] - 09/14/2019 9:59 AM PSTRenal [...] function and will adjust accordingly. Karley Tobar, PharmD, [facility] 09/14/19 7:50 AM Jeramy Grove MD - 09/14/2019 8:06 AM PSTFormatting of this note might be different from the [facility] Service: Labor Specialist Progress Note Deborah Thomason 88 y.o. Hospital [...] h is L femoral endarterectomy by Dr. Garbre on 09/11/19. Currently, his rate is in [...] as hypotension. Patient follows with Dr. Alea galivn in the clinic. History of previous attempt [...] Code Jeramy Chapa MD 09/14/2019 Dictation software, Opzi, was used which may contain error with [...] phenylephrine as BP tolerates. Susanna Simon MD Labor Specialist 09/14/2019 Please bill 40 minutes of critical care time spent evaluating the patient, reviewing the da ta and formulating a plan exclusive of procedures. Karley Tobar, [facility] - 09/14/2019 7:51 AM PST Pharmacy Warfarin Monitoring: Deborah Thomason male 88 y.o., admitted for limb ischemia. He underwent planned CARGO MATE endarterectomy and angio plasty on 09/11/19. Per portfolio accountant reconciliation, warfarin was on hold since 09/03 [...] PharmD, BCCCP 09/14/19 7:47 AM Jess Covarrubias I DO - 09/13/2019 4:04 PM PST . [facility] Progress Note Primary Care Physician: [...] additional up titration with recommendation to tr antonia to ICU for amiodarone loading for A fib with RVR per Cardiology -Continue Ancef for possible early cellulitis, could be his coloration but safer to start A bx -Continue ASA, Plavix and statin Electronically signed by: Jess Webber DO, 09/13/2019 4:04 PM Hai Amato MD - 09/13/2019 3:19 PM PSTFormatting of this note might be different from the [facility] Service: Cardiology Progress Note Hospital Day: [...] Patient was admitted and underwen t today CARGO MATE endarterectomy and angioplasty. EBL was 200-400ml. He [...] Status: Full Code Anurag Villa MD Lani Brown, [facility] - 09/13/2019 1:43 PM PSTFormatting of this note might be different from the origi nal. Pharmacy Warfarin Monitoring: Deborah Thomason is an 88 year old male admitted for limb ischemia. He underwent planned CARGO MATE endarterectomy and angioplasty on 09/11/19. Per portfolio accountant reconciliation, warfarin w as on hold since [...] Lockett MD - 09/13/2019 8:27 AM PST [facility] Service:hospitalist Progress Note Hospital Day: LOS: [...] Procedure Component Value Units Date/Time MRSA NAAT [[id number]] Collected: 09/10/19 1553 Order Status: Completed Lab Status: Final result Updated: 09/10/19 1855 Specimen: Tissue from Nares SOURCE: NARES(NOSE) Result NEGATIVE Comment: Testing performed at [facility];[address] [place] [address];[place] [address] No results found for this or any previous visit (from the past 360 hour(s)). Results for orders placed or performed in visit on 06/10/19 ECG 12 lead Result Value Ref Range INTERPRETATION TEXT Atrial fibrillation Possible Anterior infarct , age undetermined Abnormal ECG No previous ECGs available Please refer to Providers office visit note for Providers Interpretation. Confirmed by [facility] Read Only, JUAN Warren ([id number]), editor managing director Maximiliano Yee ([id number]) on 019 2:24:36 PM [...] Status: Full Code Nika Corea MD 09/13/2019 adia Clayton RN - 09/13/2019 6:04 AM PSTNeo running at 40 mcg/min SBP 100-120's titrated to 20 mcg/min SBP >90 will continue to monitor BP. Patient unaware that IV was removed while he was sleepi ng. Otherwise, hourly rounding uneventful. Chart check complete. Fadia Estrada RN Electronic ally signed by Fadia Clayton RN at 09/13/2019 6:05 AM PSTChio Ortiz RP - 09/12/2019 9:56 PM PST Pharmacy Warfarin Monitoring: Deborah Thomason male 88 y.o., admitted for limb ischemia. He underwent planned CARGO MATE endarterectomy and angio plasty on 09/11/19. Per portfolio accountant reconciliation, warfarin was on hold since 09/03 [...] indication. CHIO ORTIZ RPH 9:45 PM 09/12/2019 Marc Stewart RN - 09/12/2019 6:57 PM PSTIn AM patients SBP dropped to 69-80 with MAPS 55-60. Patien t asymptomatic, trendelenburg, 500 fb and albumin, SBP in 90's with map >65. On kailee at 40-6 0 mcg for majority of shift. MD, vascular, sepsis RN and supervisor shipping aware. Currently on 20 mcg of kailee with sbp 110's. End of shift chart check complete. Oma Kumar RN Ayala Covarrubias DO - 09/12/2019 5:16 PM PSTFormatting of this note might be different from the rand dominguez. [facility] Progress Note Primary Care Physician: [...] for Atrial fibrillation, trend troponins to exclude [place]. Electronically signed by: Jess Webber DO, 09/12/2019 5:16 PM Nika Lockett MD - 09/12/2019 8:36 AM PST [facility] Service:hospitalist Progress Note Hospital Day: LOS: [...] Procedure Component Value Units Date/Time MRSA NAAT [[id number]] Collected: 09/10/19 155 Order Status: Completed Lab Status: Final result Updated: 09/10/19 185 Specimen: Tissue from Nares SOURCE: NARES(NOSE) Result NEGATIVE Comment: Testing performed at [facility];[address] [place] [address];[place] [address] No results found for this or any previous visit (from the past 360 hour(s)). Results for orders placed or performed in visit on 06/10/19 ECG 12 lead Result Value Ref Range INTERPRETATION TEXT Atrial fibrillation Possible Anterior infarct , age undetermined Abnormal ECG No previous ECGs available Please refer to Providers office visit note for Providers Interpretation. Confirmed by [facility] Read Only, JUAN Warren ([id number]), editor managing director Maximiliano Yee ([id number]) on 019 2:24:36 PM [...] all B P meds and monitor, per PUNCHBOARD ASSEMBLER is aware Chronic diastolic HF seems stable [...] check complete. Fadia Estrada RN Karley Pichardo [facility] - 09/11/2019 6:50 PM PSTFormatting of thi s note might be different from the original. Pharmacy Warfarin Monitoring: Deborah Thomason male 88 y.o., admitted for limb ischemia. He underwent planned CARGO MATE endarterectomy and angio plasty on 09/11/19. Per portfolio accountant reconciliation, warfarin was on hold since 09/03 [...] to follow and modify therapy as indicated. Feli FowlerD, [facility] 09/11/19 6:49 PM documented in thi s encounter Plan of Treatment +--------+---------+ + + + | Date | Type | Specialty | Care Team | Description | +--------+---------+ + + + | 01/26/ | Office | Cardiology | Paolo Selby, | | | 2019 | Visit | | MD Marjan WARREN | | | | | | [address] [place], [place] | | | | | | [id number] | | | | | | | [...] | | | | | ([facility]) Atrial | | | | | | fibrillation with | | | | | | RVR ([facility]) | | + + +--------+ + + | Referral to Home | Outpatient | Routin | PAD (peripheral | Ordered: 2019 | | Health | Referral | e | artery disease) | | | | | | ([facility]) Chronic | | | | | | [...] | | | PST | ([facility]) | results section. | + +--------+ + + + | SURGICAL PATHOLOGY | Routin | 09/11/2019 | PAD (peripheral | Results for this | | EXAM | e | 8:17 AM | artery disease) | procedure are in the | | | | PST | ([facility]) | results section. | + +--------+ + + + | ENDARTERECTOMY | | 09/11/2019 | PAD (peripheral | | | FEMORAL | | 7:08 AM | artery disease) | | | | | PST | ([facility]) | | + +--------+ + [...] LIBRADO | | | | performed at [facility];[address] | | LABORATORY | | | | [address];[place] | | | | | | [address] | | | | + + + + + + + + | Specimen | + + | Blood | + + + + + + + | Performing | Address | City/State/Zipcode | Phone Number | | Organization | | | | + + + + + | [facility] | [address] | [place] [address] | [phone] | + + + + + CBC [...] | | | Absolute | performed at [facility];[address] | K/uL | LABORATORY | | | | [address];[place], [place] | | | | | | [address] | | | | + + + + + + + + | Specimen | + + | Blood | + + + + + + + | Performing | Address | City/State/Zipcode | Phone Number | | Organization | | | | + + + + + | [facility] | [address] | [place] [address] | [phone] | + + + + + Comprehensive [...] | | | | | performed at [facility];[address] | | | | | | [address];[place], [place] | | | | | | [address] | | | | + + + + + + + + | Specimen | + + | Blood | + + + + + + + | Performing | Address | City/State/Zipcode | Phone Number | | Organization | | | | + + + + + | [facility] | [address] [facility] | [place] [address] | [phone] | + + + + + Protime [...] | | | | | performed at [facility];[address] | | | | | | [address];[place], [place] | | | | | | [address] | | | | + + + + + + + + | Specimen | + + | Blood | + + + + + + + | Performing | Address | City/State/Zipcode | Phone Number | | Organization | | | | + + + + + | [facility] | [address] | [place] [address] | [phone] | + + + + + Potassium (09/19/2019 8:20 PM PST) + + + + + + | Component | Value | Ref Range | Performed | Pathologist | | | | | At | Signature | + + + + + + | K | 4.3Comment: Testing | 3.5 - 4.9 | [facility] | | | | performed at [facility];[address] | mmol/L | LABORATORY | | | | [address];[place], [place] | | | | | | [address] | | | | + + + + + + + + | Specimen | + + | Blood | + + + + + + + | Performing | Address | City/State/Zipcode | Phone Number | | Organization | | | | + + + + + | [facility] | [address] | [place] [address] | [phone] | + + + + + Potassium (09/19/2019 11:06 AM PST) + + + + + + | Component | Value | Ref Range | Performed | Pathologist | | | | | At | Signature | + + + + + + | K | 4.0Comment: Testing | 3.5 - 4.9 | [facility] | | | | performed at [facility];[address] | mmol/L | LABORATORY | | | | [address];[place] | | | | | | [address] | | | | + + + + + + + + | Specimen | + + | Blood | + + + + + + + | Performing | Address | City/State/Zipcode | Phone Number | | Organization | | | | + + + + + | [facility] | [address] | [place] [address] | [phone] | + + + + + Magnesium (09/19/2019 4:20 AM PST) + + + + + + | Component | Value | Ref Range | Performed | Pathologist | | | | | At | Signature | + + + + + + | Magnesium | 1.7Comment: Testing | 1.7 - 2.4 mg/dL | [facility] | | | | performed at [facility];[address] | | LABORATORY | | | | [address] [facility];[place], [place] | | | | | | [address] | | | | + + + + + + + + | Specimen | + + | Blood | + + + + + + + | Performing | Address | City/State/Zipcode | Phone Number | | Organization | | | | + + + + + | [facility] | [address] | [place] [address] | [phone] | + + + + + CBC [...] | | | Absolute | performed at [facility];[address] | K/uL | LABORATORY | | | | [address];[place] | | | | | | [address] | | | | + + + + + + + + | Specimen | + + | Blood | + + + + + + + | Performing | Address | City/State/Zipcode | Phone Number | | Organization | | | | + + + + + | [facility] | [address] | [place] [address] | [phone] | + + + + + Comprehensive [...] | | | | | performed at [facility];[address] | | | | | | [address];[place] | | | | | | [address] | | | | + + + + + + + + | Specimen | + + | Blood | + + + + + + + | Performing | Address | City/State/Zipcode | Phone Number | | Organization | | | | + + + + + | [facility] | [address] | [place] [address] | [phone] | + + + + + Protime [...] | | | | | performed at [facility];[address] | | | | | | [address];[place], [place] | | | | | | [address] | | | | + + + + + + + + | Specimen | + + | Blood | + + + + + + + | Performing | Address | City/State/Zipcode | Phone Number | | Organization | | | | + + + + + | [facility] | [address] | [place] [address] | [phone] | + + + + + Magnesium (09/18/2019 4:06 AM PST) + + + + + + | Component | Value | Ref Range | Performed | Pathologist | | | | | At | Signature | + + + + + + | Magnesium | 1.9Comment: Testing | 1.7 - 2.4 mg/dL | [facility] | | | | performed at [facility];[address] | | LABORATORY | | | | [address];[place], [place] | | | | | | [address] | | | | + + + + + + + + | Specimen | + + | Blood | + + + + + + + | Performing | Address | City/State/Zipcode | Phone Number | | Organization | | | | + + + + + | [facility] | [address] | [place] [address] | [phone] | + + + + + CBC [...] | | | Absolute | performed at [facility];[address] | K/uL | LABORATORY | | | | [address];[place] | | | | | | [address] | | | | + + + + + + + + | Specimen | + + | Blood | + + + + + + + | Performing | Address | City/State/Zipcode | Phone Number | | Organization | | | | + + + + + | [facility] | [address] | [place] [address] | [phone] | + + + + + Comprehensive [...] | >60Comment: GFR <60: | >60 | [facility] | | | GFR | CHRONIC [...] | | | | | | MDRD [facility] traceable | | | | | | equation.Testing | | | | | | performed at [facility];[address] | | | | | | [facility];[place], [place] | | | | | | [address] | | | | + + + + + + + + | Specimen | + + | Blood | + + + + + + + | Performing | Address | City/State/Zipcode | Phone Number | | Organization | | | | + + + + + | [facility] | [address] [facility] | [place] [address] | [phone] | + + + + + Protime [...] | | | | | performed at [facility];[address] | | | | | | [address];[place] | | | | | | [address] | | | | + + + + + + + + | Specimen | + + | Blood | + + + + + + + | Performing | Address | City/State/Zipcode | Phone Number | | Organization | | | | + + + + + | [facility] | [address] | [place] [address] | [phone] | + + + + + Magnesium (09/18/2019 12:02 AM PST) + + + + + + | Component | Value | Ref Range | Performed | Pathologist | | | | | At | Signature | + + + + + + | Magnesium | 2.0Comment: Testing | 1.7 - 2.4 mg/dL | [facility] | | | | performed at [facility];[address] | | LABORATORY | | | | [address];[place], [place] | | | | | | [address] | | | | + + + + + + + + | Specimen | + + | Blood | + + + + + + + | Performing | Address | City/State/Zipcode | Phone Number | | Organization | | | | + + + + + | [facility] | [address] | [place] [address] | [phone] | + + + + + Phosphorus (09/18/2019 12:02 AM PST) + + + + + + | Component | Value | Ref Range | Performed | Pathologist | | | | | At | Signature | + + + + + + | Phosphorus | 2.4Comment: Testing | 2.3 - 4.8 mg/dL | [place] | | | | performed at [facility];[address] | | LABORATORY | | | | [address];[place], [place] | | | | | | [address] | | | | + + + + + + + + | Specimen | + + | Blood | + + + + + + + | Performing | Address | City/State/Zipcode | Phone Number | | Organization | | | | + + + + + | [facility] | [address] | [place] [address] | [phone] | + + + + + Potassium (09/18/2019 12:02 AM PST) + + + + + + | Component | Value | Ref Range | Performed | Pathologist | | | | | At | Signature | + + + + + + | K | 3.8Comment: Testing | 3.5 - 4.9 | [facility] | | | | performed at [facility];[address] | mmol/L | LABORATORY | | | | [address];[place], [place] | | | | | | [address] | | | | + + + + + + + + | Specimen | + + | Blood | + + + + + + + | Performing | Address | City/State/Zipcode | Phone Number | | Organization | | | | + + + + + | [facility] | [address] | [place] [address] | [phone] | + + + + + Phosphorus (09/17/2019 4:38 AM PST) + + + + + + | Component | Value | Ref Range | Performed | Pathologist | | | | | At | Signature | + + + + + + | Phosphorus | 2.5Comment: Testing | 2.3 - 4.8 mg/dL | [facility] | | | | performed at [facility];[address] | | LABORATORY | | | | [address];[place], [place] | | | | | | [address] | | | | + + + + + + + + | Specimen | + + | Blood | + + + + + + + | Performing | Address | City/State/Zipcode | Phone Number | | Organization | | | | + + + + + | [facility] | [address] | [place] [address] | [phone] | + + + + + Magnesium (09/17/2019 4:38 AM PST) + + + + + + | Component | Value | Ref Range | Performed | Pathologist | | | | | At | Signature | + + + + + + | Magnesium | 1.8Comment: Testing | 1.7 - 2.4 mg/dL | [place] | | | | performed at [facility];[address] | | LABORATORY | | | | [facility];[place], [place] | | | | | | [address] | | | | + + + + + + + + | Specimen | + + | Blood | + + + + + + + | Performing | Address | City/State/Zipcode | Phone Number | | Organization | | | | + + + + + | [facility] | [address] | [place] [address] | [phone] | + + + + + CBC [...] | | | Absolute | performed at [facility];[address] | K/uL | LABORATORY | | | | [address];[place], [place] | | | | | | [address] | | | | + + + + + + + + | Specimen | + + | Blood | + + + + + + + | Performing | Address | City/State/Zipcode | Phone Number | | Organization | | | | + + + + + | [facility] | [address] | [place] [address] | [phone] | + + + + + Comprehensive [...] | | | | | performed at [facility] | | | | | | [facility];[place] | | | | | | [address] | | | | + + + + + + + + | Specimen | + + | Blood | + + + + + + + | Performing | Address | City/State/Zipcode | Phone Number | | Organization | | | | + + + + + | [facility] | [address] | [place] [address] | [phone] | + + + + + Sally [...] | | | | | performed at [facility];[address] | | | | | | [address] [facility];[place], [place] | | | | | | [address] | | | | + + + + + + + + | Specimen | + + | Blood | + + + + + + + | Performing | Address | City/State/Zipcode | Phone Number | | Organization | | | | + + + + + | [facility] | [address] | [place] [address] | [phone] | + + + + + Phosphorus (09/16/2019 4:11 AM PST) + + + + + + | Component | Value | Ref Range | Performed | Pathologist | | | | | At | Signature | + + + + + + | Phosphorus | 2.7Comment: Testing | 2.3 - 4.8 mg/dL | [facility] | | | | performed at [facility];[address] | | LABORATORY | | | | [address];[place] | | | | | | [address] | | | | + + + + + + + + | Specimen | + + | | + + + + + + + | Performing | Address | City/State/Zipcode | Phone Number | | Organization | | | | + + + + + | [facility] | [address] | [place] [address] | [phone] | + + + + + Magnesium (09/16/2019 4:11 AM PST) + + + + + + | Component | Value | Ref Range | Performed | Pathologist | | | | | At | Signature | + + + + + + | Magnesium | 2.4Comment: Testing | 1.7 - 2.4 mg/dL | [facility] | | | | performed at [facility];[address] | | LABORATORY | | | | [address];[place] | | | | | | [address] | | | | + + + + + + + + | Specimen | + + | Blood | + + + + + + + | Performing | Address | City/State/Zipcode | Phone Number | | Organization | | | | + + + + + | [facility] | [address] | [place] [address] | [phone] | + + + + + CBC [...] | | | Absolute | performed at [facility];[address] | K/uL | LABORATORY | | | | [address];[place] | | | | | | [address] | | | | + + + + + + + + | Specimen | + + | Blood | + + + + + + + | Performing | Address | City/State/Zipcode | Phone Number | | Organization | | | | + + + + + | [facility] | [address] | [place] [address] | [phone] | + + + + + Comprehensive [...] 10 | 10 - 65 U/L | [place] [...] | | | | | | MDRD IDNJ traceable | | | | | | equation.Testing | | | | | | performed at [facility] | | | | | | [facility];[place], [place] | | | | | | [address] | | | | + + + + + + + + | Specimen | + + | Blood | + + + + + + + | Performing | Address | City/State/Zipcode | Phone Number | | Organization | | | | + + + + + | [facility] | [address] | [place] [address] | [phone] | + + + + + Protime INR (09/16/2019 4:11 AM PST) + + + + + + | Component | Value | Ref Range | Performed | Pathologist | | | | | At | Signature | + + + + + + | INR | 1.6Comment: REFERENCE | | [facility] | | | | RANGE:0.9 - [...] | | | | | performed at [facility];[address] | | | | | | [address];[place], [place] | | | | | | [address] | | | | + + + + + + + + | Specimen | + + | Blood | + + + + + + + | Performing | Address | City/State/Zipcode | Phone Number | | Organization | | | | + + + + + | [facility] | [address] | [place] [address] | [phone] | + + + + + XR [...] + + | Zac Pierce Results In 09/15/2019 8:58 AM PST | [...] [facility] | | | | performed at [facility] | | LABORATORY | | | | [address];[place], [place] | | | | | | [address] | | | | + + + + + + + + | Specimen | + + | Blood | + + + + + + + | Performing | Address | City/State/Zipcode | Phone Number | | Organization | | | | + + + + + | [facility] | [address] | [place] [address] | [phone] | + + + + + CBC [...] | | | Absolute | performed at [facility];[address] | K/uL | LABORATORY | | | | [address];[place], [place] | | | | | | [address] | | | | + + + + + + + + | Specimen | + + | Blood | + + + + + + + | Performing | Address | City/State/Zipcode | Phone Number | | Organization | | | | + + + + + | [facility] | [address] | [place] [address] | [phone] | + + + + + Comprehensive [...] (L) | 10 - 65 U/L | [facility] | | | | | | LABORATORY | | + + + + + + | Estimated | >60Comment: GFR <60: | >60 | [facility] | | | GFR | CHRONIC [...] | | | | | performed at [facility] | | | | | | [facility];[place], [place] | | | | | | [address] | | | | + + + + + + + + | Specimen | + + | Blood | + + + + + + + | Performing | Address | City/State/Zipcode | Phone Number | | Organization | | | | + + + + + | [facility] | [address] | [place] [address] | [phone] | + + + + + Protime INR (09/15/2019 4:03 AM PST) + + + + + + | Component | Value | Ref Range | Performed | Pathologist | | | | | At | Signature | + + + + + + | INR | 1.4Comment: REFERENCE | | [facility] | | | | RANGE:0.9 - [...] | | | | | performed at [facility];[address] | | | | | | [facility];[place], [place] | | | | | | [address] | | | | + + + + + + + + | Specimen | + + | Blood | + + + + + + + | Performing | Address | City/State/Zipcode | Phone Number | | Organization | | | | + + + + + | [facility] | [address] [facility] | [place] [address] | [phone] | + + + + + Digoxin [...] | | | level | performed at [facility];[address] | ng/mL | LABORATORY | | | | [address];[place], [place] | | | | | | [address] | | | | + + + + + + + + | Specimen | + + | Blood | + + + + + + + | Performing | Address | City/State/Zipcode | Phone Number | | Organization | | | | + + + + + | [facility] | [address] | [place] [address] | [phone] | + + + + + CBC [...] | | | Absolute | performed at [facility];[address] | K/uL | LABORATORY | | | | [address];[place], [place] | | | | | | [address] | | | | + + + + + + + + | Specimen | + + | Blood | + + + + + + + | Performing | Address | City/State/Zipcode | Phone Number | | Organization | | | | + + + + + | [facility] | [address] | [place] [address] | [phone] | + + + + + Comprehensive [...] | >60Comment: GFR <60: | >60 | [facility] | | | GFR | CHRONIC [...] | | | | | | MDRD IDNJ traceable | | | | | | equation.Testing | | | | | | performed at [facility] | | | | | | [facility];[place], [place] | | | | | | [address] | | | | + + + + + + + + | Specimen | + + | Blood | + + + + + + + | Performing | Address | City/State/Zipcode | Phone Number | | Organization | | | | + + + + + | [facility] | [address] | [place] [address] | [phone] | + + + + + Magnesium (09/14/2019 9:23 AM PST) + + + + + + | Component | Value | Ref Range | Performed | Pathologist | | | | | At | Signature | + + + + + + | Magnesium | 1.6 (L)Comment: Testing | 1.7 - 2.4 mg/dL | [facility] | | | | performed at [facility];[address] | | LABORATORY | | | | [address];[place], [place] | | | | | | [address] | | | | + + + + + + + + | Specimen | + + | Blood | + + + + + + + | Performing | Address | City/State/Zipcode | Phone Number | | Organization | | | | + + + + + | [facility] | [address] | [place] [address] | [phone] | + + + + + ECHO [...] | | | | | | n [place] | | | | | + + [...] | | | | | performed at [facility] | | | | | | [address];[place], [place] | | | | | | [address] | | | | + + + + + + + + | Specimen | + + | Blood | + + + + + + + | Performing | Address | City/State/Zipcode | Phone Number | | Organization | | | | + + + + + | [facility] | [address] | [place] [address] | [phone] | + + + + + POC [...] | | | POC | performed at [facility];[address] | | LABORATORY | | | | [address];[place] | | | | | | [address] | | | | + + + + + + + + | Specimen | + + | | + + + + + + + | Performing | Address | City/State/Zipcode | Phone Number | | Organization | | | | + + + + + | [facility] | [address] | [place] [address] | [phone] | + + + + + Sally [...] | | | | | performed at [facility] | | | | | | [facility], [place] | | | | | | [address] | | | | + + + + + + + + | Specimen | + + | Blood | + + + + + + + | Performing | Address | City/State/Zipcode | Phone Number | | Organization | | | | + + + + + | [facility] | [address] | [place] [address] | [phone] | + + + + + CBC [...] 0.02Comment: Testing | 0.00 - 0.10 | [facility] | | | Absolute | performed at [facility];[address] | K/uL | LABORATORY | | | | [address];[place], [place] | | | | | | [address] | | | | + + + + + + + + | Specimen | + + | Blood | + + + + + + + | Performing | Address | City/State/Zipcode | Phone Number | | Organization | | | | + + + + + | [facility] | [address] | [place] [address] | [phone] | + + + + + Basic [...] | | | | | performed at [facility] | | | | | | [facility];[place], [place] | | | | | | [address] | | | | + + + + + + + + | Specimen | + + | Blood | + + + + + + + | Performing | Address | City/State/Zipcode | Phone Number | | Organization | | | | + + + + + | [facility] | [address] | [place] [address] | [phone] | + + + + + Troponin I (09/12/2019 5:28 PM PST) + + + + + + | Component | Value | Ref Range | Performed | Pathologist | | | | | At | Signature | + + + + + + | Troponin I | 0.167 (H)Comment: 0.04 | 0.00 - 0.04 | [facility] | | | | ng/mL or [...] at | | | | | | [facility];[address] [place] [address] | | | | | | Blvd;[place] [address] | | | | + + + + + + + + | Specimen | + + | Blood | + + + + + + + | Performing | Address | City/State/Zipcode | Phone Number | | Organization | | | | + + + + + | [facility] | [address] | [place] [address] | [phone] | + + + + + Protime INR (09/12/2019 4:27 PM PST) + + + + + + | Component | Value | Ref Range | Performed | Pathologist | | | | | At | Signature | + + + + + + | INR | 1.2Comment: REFERENCE | | [facility] | | | | RANGE:0.9 - [...] | | | | | performed at [facility];[address] | | | | | | [address] [facility];[place] | | | | | | [address] | | | | + + + + + + + + | Specimen | + + | Blood | + + + + + + + | Performing | Address | City/State/Zipcode | Phone Number | | Organization | | | | + + + + + | [facility] | [address] | [place] [address] | [phone] | + + + + + Troponin I (09/12/2019 11:25 AM PST) + + + + + + | Component | Value | Ref Range | Performed | Pathologist | | | | | At | Signature | + + + + + + | Troponin I | 0.136 (H)Comment: 0.04 | 0.00 - 0.04 | [facility] | | | | ng/mL or [...] at | | | | | | [facility];[address] | | | | | | [address];[place] [address] | | | | + + + + + + + + | Specimen | + + | Blood | + + + + + + + | Performing | Address | City/State/Zipcode | Phone Number | | Organization | | | | + + + + + | [facility] | [address] | [place] [address] | [phone] | + + + + + ECG [...] | | | Absolute | performed at [facility];[address] | K/uL | LABORATORY | | | | [address];[place] | | | | | | [address] | | | | + + + + + + + + | Specimen | + + | Blood | + + + + + + + | Performing | Address | City/State/Zipcode | Phone Number | | Organization | | | | + + + + + | [facility] | [address] | [place] [address] | [phone] | + + + + + Basic [...] 8.2 (L) | 8.5 - 10.5 | [facility] | | | | | mg/dL | LABORATORY | | + + + + + + | Estimated | >60Comment: GFR <60: | >60 | [facility] | | | GFR | CHRONIC [...] | | | | | performed at [facility] | | | | | | [facility];[place], [place] | | | | | | [address] | | | | + + + + + + + + | Specimen | + + | Blood | + + + + + + + | Performing | Address | City/State/Zipcode | Phone Number | | Organization | | | | + + + + + | [facility] | [address] | [place] [address] | [phone] | + + + + + Protime INR (09/11/2019 2:35 PM PST) + + + + + + | Component | Value | Ref Range | Performed | Pathologist | | | | | At | Signature | + + + + + + | INR | 1.2Comment: REFERENCE | | [facility] | | | | RANGE:0.9 - [...] | | | | | performed at [facility];[address] | | | | | | [address] [facility];[place], [place] | | | | | | [address] | | | | + + + + + + + + | Specimen | + + | Blood | + + + + + + + | Performing | Address | City/State/Zipcode | Phone Number | | Organization | | | | + + + + + | [facility] | [address] | [place] [address] | [phone] | + + + + + IR Angiogram Lower Extremity Left (09/11/2019 11:36 AM PST) + + | Specimen | + + | | + + + + ---+ | Narrative | Performed A t | + + ---+ | [place] | [facility] | | Health & Services OPERATIVE [...] iliac artery. Using | | | a [place] a endarterectomy was performed of the common [...] | | | advanced and a 8 [place] 23 cm Sheath was placed. A an [...] introduced a | | | 3 mm [place] angioplasty balloon and dilated the common and [...] with a 10 mm | | | [place] and the external iliac post dilated with an 8 mm [place]. | | | Repeat contrast injection showed [...] signal in the profunda femoris, SFA, and CARGO MATE. The left groin wound | | | was thoroughly irrigated. The incision was then closed in layers | | | first with a 2-0 Vicryl, then 3-0 Vicryl. Samy were used to | | | re-approximate [...] signal in the profunda femoris, SFA, and CARGO MATE. The left | | |groin wound was thoroughly irrigated. The incision was then closed in | | |layers first with a 2-0 Vicryl, then 3-0 Vicryl. Asmy were used to | | |re-approximate the [...] + + | Performing | Address | City/State/[facility] | Phone Number | | Organization [...] with homogeneous cut surfaces. | | | Bed And Breakfast Operator sections of the lymph node are submitted [...] surfaces are laminated | | | herrera-yellow. Bed And Breakfast Operator sections are submitted in cassette A1 | [...] component was performed | | | by [email or web address], [address] [place] [address] (Medical | | | Director: Radha Morse MD; CLIA# [id number]). Professional | | | interpretation was performed [email or web address], [facility] | | | [address] [address] (Medical | | | Director: Prasanth Suggs M.D.; CLIA#: [id number]). Diagnostician: | | | Radha ALLENathologistElectronically Signed 09/14/2019 | | |question about this report, please contact Client Services. | | | | | |PERFORMING LABORATORY: | | |The technical component was performed by [email or web address], [address] [place] [address] (Carpet Layer Helper: Radha Morse MD; CLIA# [id number]). Professional interpretation was performed by | | |[email or web address] [address] (Carpet Layer Helper: Prasanth Suggs M.D.; CLIA#: [id number]). | | | | | |Diagnostician: Radha [...] | INR | 1.2Comment: REFERENCE | | [facility] | | | | RANGE:0.9 - [...] | | | | | performed at [facility];[address] | | | | | | [facility] | | | | | | [address] | | | | + + + + + + + + | Specimen | + + | Blood | + + + + + + + | Performing | Address | City/State/Zipcode | Phone Number | | Organization | | | | + + + + + | [facility] | [address] | [place] [address] | [phone] | + + + + + documented [...] DAILY, | | | First dose on [facility] 09/24/19 at 0900 | | + +---+ [...]
--- OUTSIDE RECORDS SUMMARY | ~2019-11-20 | XMS | Encounter Summary ---
Demographics + + + | Address | [address] | | | [place] [address] | + + + | Home Phone | | + + + | Preferred Language | Unknown | + + + | Marital Status | | + + + | Denominational Affiliation | Unknown | + + + | Race | Unknown | + + + | Ethnic Group | Unknown | + + + Author + + + | Author | [facility] | | | and Eduardana | + + + | Organization | [facility] | | | and Eduardana [...] [place] | | | | | [address] | | + + + + + Care Team Providers + +------+ + | Care Parking Assistant Name | Role | Phone | [...] | | | | | Index | [address] | | | | | | Resting | Phone: | | | | | | | [phone] | | | | | | | Fax: | | | | | | | [phone] | | +--------+--------+ + + + + [...] | | | | | Limited | [address] | | | | | | | Phone: | | | | | | | [phone] | | | | | | | Fax: | | | | | | | [phone] | | +--------+--------+ + + + + Reason for Visit + + + | Reason | Comments | + + + | Follow-up | | + + + Encounter Details +--------+ + + + + | Date | Type | Department | Care Team | Description | +--------+ + + + + | 09/20/ | Telephone | [facility] | Niharika Man, | Follow-up | | 2019 | | VASCULAR SURGERY | Bunch Maker | | | | | [address] | | | | | | [place] | | | | | | [address] | | | | | | [phone] | | | +--------+ + + + [...] | | | | | [address] [place], [place] | | | | | | [address] | | | | | | | [...] | [facility] | | INFORMATION: Left METALWORKER endarterectomy and iliac stents. 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 | | | [...] | TBI: 0.91 | | Waveforms: Triphasic BEEF CATTLE FARM WORKER, monophasic DP | | | | [...]
--- OUTSIDE RECORDS SUMMARY | ~2019-11-20 | XMS | Encounter Summary ---
Demographics + + + | Address | [address] | | | [place] [address] | + + + | Home Phone | | + + + | Preferred Language | Unknown | + + + | Marital Status | | + + + | Jew Affiliation | Unknown | + + + | Race | Unknown | + + + | Ethnic Group | Unknown | + + + Author + + + | Author | [facility] | | | and Eduardana | + + + | Organization | [facility] [...] [place] | | | | | [address] | | + + + + + Care Team Providers + +------+ + | Care Shuttle Bus Driver Name | Role | Phone | + [...] + + | 06/29/ | Telephone | [facility] | Peggy Cason DNP | Consult | | 2019 | | VASCULAR SURGERY | [address] | | | | | [address] | [place], [place] | | | | | [place], [place] | [address] | | | | | [address] | | | | | | [phone] | | | +--------+ + + + [...] [place] | | | | | | [address] | | | | | | | | +--------+---------+ + + + documented as of this encounter Visit Diagnoses + + | Diagnosis | + + | PAD (peripheral artery disease) (HCC) - Primary Unspecified disorders of arteries and | | arterioles | + + documented in this encounter"
--- OUTSIDE RECORDS SUMMARY | ~2019-11-20 | XMS | Encounter Summary ---
Demographics + + + | Address | [address] | | | [place] [address] | + + + | Home Phone | | + + + | Preferred Language | Unknown | + + + | Marital Status | | + + + | Congregational Affiliation | Unknown | + + + | Race | Unknown | + + + | Ethnic Group | Unknown | + + + Author + + + | Author | [facility] | | | and Eduardana | + + + | Organization | [facility] | | [...] [place] | | | | | [address] | | + + + + + Care Team Providers + +------+ + | Care Junior High School Teacher Name | Role | [...] atrial | MD, FACS | [address] | | | | | fibrillation | [address] | [place], | | | | | (HCC) | [place] | [place] | | | | | Procedures | [place], [place] | [address] | | | | | [place] | [address] | Phone: | | | | | | Phone: | [phone] | | | | | | [phone] | Fax: | | | | | | Fax: | [phone] | | | | | | [phone] | | +--------+ + + + + + Reason for Visit + + + | Reason | Comments | + + + | Follow-up | CT follow up | + + + Encounter Details +--------+---------+ + + + | Date | Type | Department | Care Team | Description | +--------+---------+ + + + | 12/31/ | Office | [facility] | Michael Alston | Stenosis of carotid | | 2019 | Visit | SURGERY [address] | MD Dante, FACS [address] | artery, unspecified | | | | [place], [place] | [address] [place] | laterality (Primary | | | | [address] | [place] [address] | Dx); Subclavian | | | | [phone] | [phone] | steal syndrome; | | | | [...] 88 y.o. male , a patient o martina [...] down. Has not followed up with his eye physician. He admits to occasional dizzy ep isodes. [...] before needing to sit down. Cardiac: Denies IN. Patient sees cost estimating manager Dr. 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 PVD (peripheral vascular disease) ([facility]) 02/06/2018 Urinary retention Past Surgical History: Procedure Laterality Date CAROTID ENDARTERECTOMY Right CATARACT REMOVAL WITH IMPLANT Bilateral 03/30/10 and 04/27/10 CORONARY ANGIOPLASTY without stent [facility] Approx [id number] FEMUR FRACTURE SURGERY Right 12/19/2016 Procedure: ORIF IM RODDING FEMORAL ANTEGRADE; Surgeon: Lambert Mancuso MD; Location: [facility] OR FEMUR FRACTURE SURGERY Left 12/19/2016 Procedure: ORIF IM RODDING FEMORAL TROCHANTERIC NAIL; Surgeon: Lambert Mancuso MD; Locati on: [facility] Heart/ Arrhythmia ablation Right [...] angiography with runoff. [facility] - Dr. Delaney Allergies Allergen Reactions Naproxen [...] Would like patient to establish with a cost estimating manager from [facility], will refer him to jaycob ferrell for cardiac clearance. Follow up in 2 months. Michael Alston MD, FACS Vascular and General Surgery docubrooke hernandez this encounter Plan of Treatment +--------+---------+ + + + | Date | Type | Specialty | Care Team | Description | +--------+---------+ + + + | 01/26/ | Office | Cardiology | Paolo Selby, | | | 2019 | Visit | | MD Marjan MARINELLI | | | | | | [place] | | | | | | [address] | | | | | | | | +--------+---------+ + + + + + +--------+ + + | Name | Type | Priori | Associated Diagnoses | Order Schedule | | | | ty | | | + + +--------+ + + | * MICHELLE YANG | Outpatient | Routin | Chronic atrial [...] 107/19; ECA: 194/9; ICA: 130/17 (ICA/CCA 2.3, kbssxqyghj179/27 with | | ratio of 2.9)Posterior circulation: [...]
--- OUTSIDE RECORDS SUMMARY | ~2019-11-20 | XMS | Clinical Summary ---
Demographics + + + | Address | [address] | | | [place] [address] | + + + | Home Phone [...] | Organization | [facility] [...] [place] | | | | | [address] | | + + + + + Care Team Providers + +------+ + | Care Impregnator [employer] Products Name | Role | Phone | + [...] automatically from request for surgery | | [id number] | + + + + + | [...] Follow-up | | 2019 | | | Attendant Honor Bar | | +--------+ + + + + | 09/11/ | Anesthesia | | Stephen Silva | | | 2019 | Event | | Carlos Alberto SCARRER | | +--------+ + + + + [...] | | | | | Sanjuanita Guerrero ([facility]); PAD | | 09/19/ | | | MD Thor | (peripheral artery | | 2019 | | | | disease) ([facility]); | | | | | | Bilateral carotid | | | | | | artery stenosis; | | | | | | Chronic anemia; | | | | | | Chronic atrial | | | | | | fibrillation ([facility]); | | | | | | Chronic diastolic | | | | | | heart failure ([facility]); | | | | | | Essential | | | | | | hypertension; PVD | | | | | | (peripheral vascular | | | | | | disease) ([facility]); | | | | | | Atrial fibrillation | | | | | | with RVR ([facility]) | +--------+ + + + [...] | | | | | ([facility]) (Primary Dx); | | | [...] | | | | | [address] [place], [place] | | | | | | [address] | | | | | | | [...] 01/18/ | 04.038 | | Strl - [id number]: | c | Femur | SYNTHES - | | 2025 | .305S | | Qty: 1 on 12/19/2016 by | | | SYNT | | | / | | Lambert Mancuso MD at [facility] | | | | | | /[id number] | | [facility] | | | | | | 58 [...] | | | /N/A | | at [facility] | | | | | | /[id number] | [facility] | | | | | | 10-141 | | | | | | | | 6142 | + +--------+--------+ +--------+--------+--------+ | Nail Fem Rg Ex [id number] - | Nail | Right: | [facility] DEPUY | | 02/18/ | 04.013 | | [id number]: Qty: 1 on | | Femur | SYNTHES - | | 2024 | .764S | | 12/19/2016 by Lambert Mancuso | | | SYNT | | | / | | MD Dhruv at [facility] | | | | | | /[id number] | | [facility] | | | | | | 95 | + +--------+--------+ +--------+--------+--------+ | Nail Fem Tfna St 130d [id number] | Nail | Left: | [facility] DEPUY | | 05/21/ | 04.037 | | L - [id number]: Qty: | | Femur | SYNTHES - | | 6 | .245S | | 1 on 12/19/2016 by Bartolome, | | | SYNT | | | / | | Lambert Bartlett MD at [facility] | | | | | | /[id number] | | [facility] | | | | | | 78 | + +--------+--------+ +--------+--------+--------+ | Screw Im Alonso Slf-Tp F/T | Screw | Right: | [facility] DEPUY | | | 04.005 | | 5x60mm - [id number]: | | Femur | SYNTHES - | | | .550 / | | Qty: 1 on 12/19/2016 by | | | SYNT | | | / | | Lambert Mancuso MD at [facility] | | | | | | | | [facility] | | | | | | | [facility] | | | | | | | + +--------+--------+ +--------+--------+--------+ | Screw Im Alonso Slf-Tp F/T | Screw | Right: | [facility] DEPUY | | | 04.005 | | 5x62mm - [id number]: | | Femur | SYNTHES - | | | .552 / | | Qty: 1 on 12/19/2016 by | | | SYNT | | | / | | Lambert Mancuso MD at [facility] | | | | | | | | [facility] | | | | | | | | [facility] | | | | | | | + +--------+--------+ +--------+--------+--------+ | Screw Im Alonso Slf-Tp F/T | Screw | Right: | [facility] DEPUY | | | 04.005 | | 5x46mm - [id number]: | | Femur | SYNTHES - | | | .536 / | | Qty: 1 on 12/19/2016 by | | | SYNT | | | / | | Lambert Mancuso MD at [facility] | | | | | | | | [facility] | [facility] | | | | | | [facility] | | | | | | | + +--------+--------+ +--------+--------+--------+ | Screw Im Alonso Slf-Tp F/T | Screw | Left: | [facility] DEPUY | | | 04.005 | | 5x44mm - [id number]: | | Femur | SYNTHES - | | | .534 / | | Qty: 1 on 12/19/2016 by | | | SYNT | | | / | | Lambert Mancuso MD at [facility] | | | | | | | | [facility] | | | | | | | | [facility] | | | | | | | + +--------+--------+ +--------+--------+--------+ | Stent Viabahn A Hep | Stent | | [facility] - | | 06/06/ | [id number] | | [id number]-1/21/2020Implanted: | | | [facility] | | 2021 | [id number] | | Qty: 1 on 09/11/2019 by | | | | | | / / | | Osmin Garber MD | | | | | | | + +--------+--------+ +--------+--------+--------+ | Stent Viabahn Vbx | | | [facility] - | | 06/21/ | [id number] | | [id number]-5/21/2020Implante | | | [facility] | | 2020 | [id number] / | | d: Qty: 1 on 09/11/2019 by | | | | | | / | | Osmin Garber MD | | | | | | | + +--------+--------+ +--------+--------+--------+ | Stent Viabahn Vbx | | | [facility] - | | 09/10/ | [id number] | | [id number]-3/21/2020Implante | | | [facility] | | 2021 [...] | | | PST | ([facility]) | results section. | + +--------+ + + + | SURGICAL PATHOLOGY | Routin | 09/11/2019 | PAD (peripheral | Results for this | | EXAM | e | 8:17 AM | artery disease) | procedure are in the | | | | PST | ([facility]) | results section. | + [...] | | | PST | ([facility]) | | + +--------+ + [...] | [facility] | | INFORMATION: Left FISH BAIT PROCESSING SUPERVISOR endarterectomy and iliac stents. | | | [...] TBI: 0.91 | | | Waveforms: Triphasic BOOKBINDING MACHINE OPERATOR, monophasic DP LEFT Dorsalis Pedis: 194 | [...] | | CLINICAL INFORMATION: | | Left FISH BAIT PROCESSING SUPERVISOR endarterectomy and iliac stents. | | | [...] | TBI: 0.91 | | Waveforms: Triphasic BOOKBINDING MACHINE OPERATOR, monophasic DP | | | | LEFT [...] | | | | performed at [facility];[address] | | | | | | [address];[place] | | | | | | [address] | | | | + + + + + + + + | Specimen | + + | Blood | + + + + + + + | Performing | Address | City/State/Zipcode | Phone Number | | Organization | | | | + + + + + | [facility] | [address] | [place] [address] | [phone] | + + + + + CBC [...] | | Absolute | performed at [facility];[address] | K/uL | LABORATORY | | | | [address];[place] | | | | | | [address] | | | | + + + + + + + + | Specimen | + + | Blood | + + + + + + + | Performing | Address | City/State/Zipcode | Phone Number | | Organization | | | | + + + + + | [facility] | [address] | [place] [address] | [phone] | + + + + + Magnesium (2019 4:31 AM [facility])Only the most recent of 8 results within the time period is included. + + + + + + | Component | Value | Ref Range | Performed | Pathologist | | | | | At | Signature | + + + + + + | Magnesium | 1.7Comment: Testing | 1.7 - 2.4 mg/dL | [facility] | | | | performed at [facility];[address] | | LABORATORY | | | | [address];[place], [place] | | | | | | [address] | | | | + + + + + + + + | Specimen | + + | Blood | + + + + + + + | Performing | Address | City/State/Zipcode | Phone Number | | Organization | | | | + + + + + | [facility] | [address] | [place] [address] | [phone] | + + + + + Comprehensive [...] | | | | performed at [facility] | | | | | | [facility];[place], [place] | | | | | | [address] | | | | + + + + + + + + | Specimen | + + | Blood | + + + + + + + | Performing | Address | City/State/Zipcode | Phone Number | | Organization | | | | + + + + + | [facility] | [address] | [place] [address] | [phone] | + + + + + Potassium [...] [facility] | | | | performed at [facility];[address] | mmol/L | LABORATORY | | | | [address];[place] | | | | | | [address] | | | | + + + + + + + + | Specimen | + + | Blood | + + + + + + + | Performing | Address | City/State/Zipcode | Phone Number | | Organization | | | | + + + + + | [facility] | [address] | [place] [address] | [phone] | + + + + + Phosphorus [...] Testing | 2.3 - 4.8 mg/dL | [facility] | | | | performed at [facility];[address] | | LABORATORY | | | | [address];[place], [place] | | | | | | [address] | | | | + + + + + + + + | Specimen | + + | Blood | + + + + + + + | Performing | Address | City/State/Zipcode | Phone Number | | Organization | | | | + + + + + | [facility] | [address] | [place] [address] | [phone] | + + + + + XR [...] | | | level | performed at [facility];[address] | ng/mL | LABORATORY | | | | [address];[place], [place] | | | | | | [address] | | | | + + + + + + + + | Specimen | + + | Blood | + + + + + + + | Performing | Address | City/State/Zipcode | Phone Number | | Organization | | | | + + + + + | [facility] | [address] | [place] [address] | [phone] | + + + + + ECHO [...] | | | | | | n [place] | | | | | + + [...] Testing | 65 - 99 mg/dL | [facility] | | | POC | performed at [facility];[address] | | LABORATORY | | | | [address];[place], [place] | | | | | | [address] | | | | + + + + + + + + | Specimen | + + | | + + + + + + + | Performing | Address | City/State/Zipcode | Phone Number | | Organization | | | | + + + + + | [facility] | [address] | [place] [address] | [phone] | + + + + + Basic [...] | | | | performed at [facility] | | | | | | [facility];[place], [place] | | | | | | [address] | | | | + + + + + + + + | Specimen | + + | Blood | + + + + + + + | Performing | Address | City/State/Zipcode | Phone Number | | Organization | | | | + + + + + | [facility] | [address] | [place] [address] | [phone] | + + + + + Troponin [...] (H)Comment: 0.04 | 0.00 - 0.04 | [facility] | | | | ng/mL or [...] at | | | | | | [facility];[address] [facility] | | | | | | [facility];[place] [address] | | | | + + + + + + + + | Specimen | + + | Blood | + + + + + + + | Performing | Address | City/State/Zipcode | Phone Number | | Organization | | | | + + + + + | [facility] | [address] | [place] [address] | [phone] | + + + + + ECG [...] A t | + + ---+ | [place] | [facility] | | Health & Services OPERATIVE [...] iliac artery. Using | | | a Sanderson a endarterectomy was performed of the common [...] | | | advanced and a 8 Slovak 23 cm Sheath was placed. A an [...] introduced a | | | 3 mm [place] angioplasty balloon and dilated the common and [...] with a 10 mm | | | [place] and the external iliac post dilated with an 8 mm [place]. | | | Repeat contrast injection showed [...] signal in the profunda femoris, SFA, and FISH BAIT PROCESSING SUPERVISOR. The left groin wound | | [...] signal in the profunda femoris, SFA, and FISH BAIT PROCESSING SUPERVISOR. The left | | |groin wound was thoroughly irrigated. The incision was then closed in | | |layers first with a 2-0 Vicryl, then 3-0 Vicryl. Soper were used to | | |re-approximate the [...] with homogeneous cut surfaces. | | | Specialized Developer sections of the lymph node are submitted [...] surfaces are laminated | | | wall-yellow. Specialized Developer sections are submitted in cassette A1 | [...] component was performed | | | by [facility], [address] [place] [id number] (Medical | | | Director: Radha Morse MD; CLIA# [id number]). Professional | | | [facility] | | | [address] [address] (Medical | | | Director: Prasanth Suggs M.D.; CLIA#: [id number]). Diagnostician: | | | Radha Morse MDPathologistElectronically Signed 09/14/2019 | | |question about this report, please contact Client Services. | | | | | |PERFORMING LABORATORY: | | |The technical component was performed by [facility], [address] [place] [address] (Supervisor Filtration: Radha Morse MD; CLIA# [id number]). Professional interpretation was performed by | | |[facility] [address] (Supervisor Filtration: Prasanth Suggs M.D.; CLIA#: [id number]). | | | | | |Diagnostician: Radha [...] [facility] | | | | performed at [facility];[address] | | LABORATORY | | | | [address];[place] | | | | | | [address] | | | | + + + [...] | [address] | [place] [address] | [phone] | + + + + + Type [...] + + + | [facility] | [id number] | | [facility] | | | | | | LABORATORY | | + + + + + + | [facility] | Testing performed at | | [facility] | | | | [facility];[address] | LABORATORY | | | | [address];[place] [address] | | | | + + + + + + + + | Specimen | + + | Blood | + + + + + + + | Performing | Address | City/State/Zipcode | Phone Number | | Organization | | | | + + + + + | [facility] | [address] | [place] [address] | [phone] | + + + + + from [...] +--------+ +---------+--------+ | MEDICARE | MEDICA | [id number] | 02/19/19 | [phone] | | Medica | | | RE | | 98-Pre | 5 | | re | | | PART A | | sent | | | | | | AND B | | | | | | + +--------+ +--------+ +---------+--------+ | MEDICARE | MEDICA | [id number] | 02/19/19 | [phone] | | Medica | | | RE | | 98-Pre | 5 | | re | | | PART A | | sent | | | | | | AND B | | | | | | + +--------+ +--------+ +---------+--------+ | AARP | AARP | [id number] | 10/21/19 | [phone] | | Indemn | | | MDCR | | 19-Pre | 0 | | ity | | | SUPPL | | sent | | | | + +--------+ +--------+ +---------+--------+ | AARP | AARP | [id number] | 10/21/19 | [phone] | | Indemn [...] | 1931 | [phone] | [place] [address] | | | dorothea | | | 5 (Home) | | + +--------+ +--------+ + + | Deborah Thomason | Person | Self | [birth year] | | | | al/Fam | | 1931 | [phone] | [place] [address] | | | dorothea | | | 5 (Home) | | + +--------+ +--------+ + + Advance Directives + + + + + | Type | Date Recorded | Patient | Explanation | | | | Specialized Developer | | + + + + + | Power of | | | | | Realty Loan Specialist | | | | + + + [...]
--- OUTSIDE RECORDS SUMMARY | ~2019-11-20 | XMS | Encounter Summary ---
Demographics + + + | Address | [address] | | | [place] [address] | + + + | Home Phone | | + + + | Preferred Language | Unknown | + + + | Marital Status | | + + + | Anglican Affiliation | Unknown | + + + | Race | Unknown | + + + | Ethnic Group | Unknown | + + + Author + + + | Author | [facility] | | | and [place] | + + + | Organization | [facility] | | | and [place] [...] [place] | | | | | [address] | | + + + + + Care Team Providers + +------+ + | Care Supply Aide Name | Role | Phone | [...] | | SURGERY [address] | | | | | [place] | [address] | | | | | [address] | [place] [address] | | | | | [phone] | | | +--------+ + + + [...] | | | | | [place] | | | | | | [address] | | | | | | | | +--------+---------+ + + + documented as of this encounter Visit Diagnoses Not on filedocumented in this encounter"
--- OUTSIDE RECORDS SUMMARY | ~2019-11-20 | XMS | Encounter Summary ---
Demographics + + + | Address | [address] | | | [place] [address] | + + + | Home Phone | | + + + | Preferred Language | Unknown | + + + | Marital Status | | + + + | Presybeterian Affiliation | Unknown | + + + | Race | Unknown | + + + | Ethnic Group | Unknown | + + + Author + + + | Author | [facility] | | | and Eduardana | + + + | Organization | [facility] | | | and Eduardana | + + + | Address | Unknown | + + + | Phone | Unavailable | + + + Support + + + + + | Name | Relationship | Address | Phone | + + + + + | Rivka Thomason | ECON | | | | | | [place] | | | | | [address] | | + + + + + Care Team Providers + +------+ + | Care Medical Review Coordinator Name | Role | Phone | [...] | steal | MD, FACS | [place] | | | | | syndrome | [address] | [place], | | | | | 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[place] | [place] [address] | | | | | carotid | [place], [place] | Phone: | | | | | artery, | [address] | [phone] | | | | | unspecified | Phone: | Fax: | | | | | laterality | [phone] | [phone] | | | | | Peripheral | Fax: | | | | | | arterial | [phone] | | | | | | disease | | | | | | | (HCC) | | | | | | | Procedures | | | | | | | MD IV | | | | | | | INFUSION, | | | | | | | HYDRATION, | | | | | | | 31-60 MIN | | | | | | | MD IV | | | | | | | INFUSION, | | | | | | | HYDRATION, | | | | | | | EA ADD HOUR | | | | | | | MD NORMAL | | | | | | [...] | Subclavian | Michael I, | [place] | | | | | steal | MD, FACS | [place], | | | | | syndrome | [address] | [place] [address] | | | | | 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[place] | Phone: | | | | | carotid | [place] | [phone] | | | | | artery, | [address] | Fax: | | | | | unspecified | Phone: | [phone] | | | | | laterality | [phone] | | | | | | Peripheral | Fax: | | | | | | arterial | [phone] | | | | | | disease [...] [address] | | | | | ([facility]) | [address] | [place], | | | | | Procedures | [place] | [place] [address] | | | | | MD OFFICE | [place] [address] | Phone: | | | | | OUTPATIENT | Phone: | [phone] | | | | | NEW 45 | [phone] | Fax: | | | | | MINUTES | Fax: | [phone] | | | | | | [phone] | | +--------+--------+ + + + + Encounter Details +--------+---------+ + + + | Date | Type | Department | Care Team | Description | +--------+---------+ + + + | 02/10/ | Office | [facility] | Michael Alston | 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 Max Delaney at [facility] in [place], [place]. Right femoral to below-knee popliteal reverse saphenous vein graft, right common femoral en darterectomy with Vascu-Guard patch angioplasty, right external iliac stent angioplasty, ang iography, harvesting right greater saphenous vein performed by Max Delaney at [facility] in [place], [place]. Intramedullary yulisa fixation, right femur on 12/18/[address] Mancuso Carotid : Patient states he had a stroke 4 years ago when he lived in [place], [place]. States he rememb ers when he [...] he had RIGHT side carotid endarterectomy in [place] by Dr. Powell. Reports occasional dizziness. [...] then 5 minutes. CARDIAC: He sees a newsroom intern who has him on warfarin for A-fib. Denies NV, chest pain o r tightness. 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 [facility] - Dr. Delaney Right thigh biopsy [...] TABS Take 1 tablet by mouth Daily. Clutier-3 Fatty Acids (FISH OIL PO) Take 1 [...] intact, face symmetric, tongue protrudes midline Equal cone worker and plantar flexion, no pronator drift, Gait [...] | | | | | [place] | | | | | | [id number] | | | | | | | [...] The parapharyngeal, retropharyngeal, and | | | automatic beam warper tender spaces are normal. Complete fatty atrophy of [...] | | left proximal ICA (series 4, [id number] and coronal series 602, image 70).Vertebrals: Left [...] nodularity as well as numerous | | zhlp-ih-uofsvoahdu opacities seen throughout both lungs with relative [...] of groundglass nodularity as well as numerous ynug-cd-hhjzhcavct | | opacities seen throughout both lungs [...] mL/min/1.73m2 | [facility] | | | [facility] | RATE,ESTIMATED | | MEDICAL | | | | mL/min/1.88x3Qqcv than | | CENTER - | | [...] + | [address] | [address] | [place] | [phone] | | [facility] | | [address] | | | - LABORATORY | | [...]
--- OUTSIDE RECORDS SUMMARY | ~2019-11-20 | XMS | Encounter Summary ---
Demographics + + + | Address | [address] | | | [place] [address] | + + + | Home Phone [...] | [facility] | [...] [place] | | | | | [address] | | + + + + + Care Team Providers + +------+ + | Care Policy Loan Calculator Name | Role | Phone | + [...] | | | [address] | [address] [place], [place] | | | | | [place], [place] | [address] | | | | | [address] | | | | | | [phone] | | | +--------+ + + + [...] [place] | | | | | | [address] | | | | | | | [...] Doppler was | | | perfomed at [facility]. Study: This was a technically [...] TR Vmax: 2.50 m/s | | | Management Trainee: BHANU Authenticated by: AKHIL NIXON MD Report [...] and color flow Doppler was perfomed at [facility].Study: | | This was a [...] cmLVPWd: 1.16 cmLVOT | | Area: 3.71 [id number] Diam: 2.17 cm%FS: 34.28 %EF(Teich): 63.65 %ESV(Teich): [...] | | (A-L): 65.28 ml/m2LAAs A2C: 25.62 [id number] A-L A2C: 92.62 mlLALs A2C: 6.01 | | cmLAAs A4C: 35.22 qu2AJRQD A-L A4C: 161.80 mlLALs A4C: 6.50 cmRAAs: 21.87 | | mb0UDMTA A-L: 63.80 mlRAESV MOD: 62.81 mlRALs: 6.36 cmAV maxP.69 mmHgAV | | meanP.13 mmHgAV Vmax: 1.19 m/Zoey Vmean: 0.83 m/Zoey VTI: 20.09 cmAVA Vmax: | | 2.32 cm2AVA (VTI): 2.62 zb5FVFY Vmax: 0.00 cm2/m2AVAI (VTI): 0.00 cm2/m2LVOT | | maxP.22 mmHgLVOT meanP.43 mmHgLVSI Dopp: 27.01 ml/m2LVSV Dopp: 52.68 | | mlLVOT Vmax: 0.74 m/sLVOT Vmean: 0.58 m/sLVOT VTI: 14.18 cmMV E Ulises: 0.99 m/sMV | | DecT: 159.10 msSeptal e': 0.06 m/sSeptal E/e': 15.21Lateral e': 0.11 m/sLateral | | E/e': 8.45RAP: 5 mmHgRVSP: 30.09 mmHgTR maxP.09 mmHgTR Vmax: 2.50 m/s | | Management Trainee: SHAEuthenticated by: Zoe PRESLEY Date/Time: 01-29-2017 16:24:52 [...] |TR Vmax: 2.50 m/s | | | |Management Trainee: | |Authenticated by: AKHIL NIXON MD | [...]
--- OUTSIDE RECORDS SUMMARY | ~2019-11-20 | XMS | Encounter Summary ---
Demographics + + + | Address | [address] | | | [place] [address] | + + + | Home Phone | | + + + | Preferred Language | Unknown | + + + | Marital Status | | + + + | Islam Affiliation | Unknown | + + + | Race | Unknown | + + + | Ethnic Group | Unknown | + + + Author + + + | Author | [facility] | | | and Eduardana | + + + | Organization | [facility] | | | and Eduardana [...] [place] | | | | | [address] | | + + + + + Care Team Providers + +------+ + | Care Packing Supervisor Name | Role | Phone | [...] | | | | | [address] | [address] [place] | | | | | [place] | [address] | | | | | [address] | | | | | | [phone] | | | +--------+ + + + [...] Electronic Medical Record (EMR) system used by [facility] will be updated. The category [...] insure continuity of care. Please contact the [facility] at with any questions [...] [place] | | | | | | [address] | | | | | | | | +--------+---------+ + + + documented as of this encounter Visit Diagnoses Not on filedocumented in this encounter"
--- OUTSIDE RECORDS SUMMARY | ~2019-11-20 | XMS | Encounter Summary ---
Demographics + + + | Address | [address] | | | [place] [address] | + + + | Home Phone [...] | Organization | [facility] | | [...] | [place] | | | | | [address] | | + + + + + Care Team Providers + +------+ + | Care Supervisor Name | Role | Phone | [...] | | | [address] [place] | [place] [address] | | | | | [place] [address] | | | | | | [phone] | | | +--------+ + + + [...] [place] | | | | | | [address] | | | | | | | [...]
--- OUTSIDE RECORDS SUMMARY | ~2019-11-20 | XMS | Encounter Summary ---
Demographics + + + | Address | [address] | | | [place] [address] | + + + | Home Phone [...] | Organization | [facility] | | | and Eduardana | [...] [place] | | | | | [address] | | + + + + + Care Team Providers + +------+ + | Care Material Hauler Name | Role | Phone | + [...] | | | | VAS Carotid | [id number] | | | | | | Duplex | Phone: | | | | | | Bilateral | [phone] | | | | | | | Fax: | | | | | | | [phone] | | +--------+--------+ + + + + Encounter Details +--------+ + + + + | Date | Type | Department | Care Team | Description | +--------+ + + + + | 07/02/ | Hospital | [facility] | Peggy Cason, NICOLE | Carotid stenosis, | | 2019 | Encounter | VASCULAR SURGERY | [address] | bilateral | | | | ULTRASOUND [address] | [place] | | | | | [address] [place] | [address] | | | | | [place] | | | | | | [address] | | | | | | [phone] | | | +--------+ + + + [...] | | | | [place] | | | | | | [address] | | | | | | | [...]
--- OUTSIDE RECORDS SUMMARY | ~2019-11-20 | XMS | Encounter Summary ---
Demographics + + + | Address | [address] | | | [place] [address] | + + + | Home Phone | | + + + | Preferred Language | Unknown | + + + | Marital Status | | + + + | Voodoo Affiliation | Unknown | + + + | Race | Unknown | + + + | Ethnic Group | Unknown | + + + Author + + + | Author | [facility] | | | and Eduardana | + + + | Organization | [facility] | [...] [place] | | | | | [address] | | + + + + + Care Team Providers + +------+ + | Care Last Inserter Name | Role | Phone | + [...] | | (HCC) | [address] | [place], [place] | | | | | Essential | [place] | [address] | | | | | hypertension | [address] | Phone: | | | | | PVD | Phone: | [phone] | | | | | (peripheral | [phone] | Fax: | | | | | vascular | Fax: | [phone] | | | | | disease) | [phone] | | | | | | (HCC) [...] + + | 07/02/ | Office | [facility] | Peggy Cason DNP | Bilateral carotid | | 2019 | Visit | VASCULAR SURGERY | [address] | artery stenosis | | | | [address] | [place], [place] | (Primary Dx); PVD | | | | [place] | [address] | (peripheral vascular | | | | [address] | | disease) (HCC) | | | | [phone] | Osmin Garber MD | | | | | | [address] | | | | | | [address] | | | | | | [place] [address] | | | | | | [phone] | | | | | | | [...] might be different from t pepe branham. [facility] [address] [place] [address] [place] [address] Office: [phone] DATE OF VISIT: 07/04/2019 PATIENT NAME: Deborah Thomason : 1930; AGE: 88 y.o.; Sex:M PHONE NUMBER: ; (Work); ; PHYSICIAN: Osmin Garber MD PRIMARY CARE / REFERRING PHYSICIAN: Paolo Selby MD / Carlos Alberto Galeas MD / [address] / [place] [address] / REASON FOR EVALUATION / CHIEF COMPLAINT: [...] a r ight carotid endarterectomy done in [place] many years ago. He denies any recent illness, fever, chills, Chest pain, SOB. Patient denies any amaurosis, stroke/TIA symptoms. PAST SURGICAL HISTORY: The patient's has a past surgical history that includes Cataract re moval with implant (Bilateral); CORONARY ANGIOPLASTY without stent [facility] (A pprox [id number]); Femur fracture surgery (Right, 12/19/2016); Femur fracture surgery (Left, ); carotid endarterectomy (Right); Heart/ Arrhythmia ablation ; Right thigh biopsy (10/24/2011); Right femoral to below knee popliteal reverse saphenus vein graft (12/01/2013) ; and Ultrasound guided access, right common femoral artery (11/30/2013). PAST MEDICAL HISTORY: The patient has a past medical history of Atopic dermatitis (02/07/20 18), Atrial flutter ([facility]) (12/18/2016), CAD (coronary artery disease), CVA (cerebral vascula r accident) ([facility]) 2012 (2012), Femoral fracture (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) ( 02/06/2018), and Urinary retention. [...] Osmin Garber MD Vascular Surgery Dictation software, Ofidium, used which may contain error for similar [...] | | | | | [place], [place] | | | | | | [address] | | | | | | | [...]
--- OUTSIDE RECORDS SUMMARY | ~2019-11-20 | XMS | Encounter Summary ---
Demographics + + + | Address | [address] | | | [place] [address] | + + + | Home Phone [...] + | Organization | [facility] | | | and [...] [place] | | | | | [address] | | + + + + + Care Team Providers + +------+ + | Care Calculating Machine Operator Name | Role | Phone [...] | | | [address] [place] | [place] [address] | | | | | [place] [address] | | | | | | [phone] | | | +--------+ + + + [...] | | | | | | [facility] | | | | | | [address] | | | | | | | [...] documented in this encounter Results XR Femur Right 2+Vw (12/18/2016 5:20 PM [...]
--- OUTSIDE RECORDS SUMMARY | ~2019-11-20 | XMS | Encounter Summary ---
Demographics + + + | Address | [address] | | | [place] [address] | + + + | Home Phone [...] | Organization | [facility] | | | and [...] [place] | | | | | [address] | | + + + + + Care Team Providers + +------+ + | Care Floor Covering Installer Name | Role | Phone | + [...] | Subclavian | Michael Howell, | [place] | | | | | steal | MD, FACS | [place], | | | | | syndrome | [address] | [place] [address] | | | | | 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[place] | Phone: | | | | | carotid | [place] | [phone] | | | | | artery, | [address] | Fax: | | | | | unspecified | Phone: | [phone] | | | | | laterality | [phone] | | | | | | Peripheral | Fax: | | | | | | arterial | [phone] | | | | | | disease [...] | Subclavian | Michael I, | [address] [place] | | | | | steal | MD, FACS | [place], | | | | | syndrome | [address] | [place] [address] | | | | | 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[place] | Phone: | | | | | carotid | [place], [place] | [phone] | | | | | artery, | [address] | Fax: | | | | | unspecified | Phone: | [phone] | | | | | laterality | [phone] | | | | | | Peripheral | Fax: | | | | | | arterial | [phone] | | | | | | disease [...] + + | 02/18/ | Hospital | [facility] | Michael Alston | Subclavian steal | | 2018 | Encounter | [facility] [address] | I, MD, FACS [address] | syndrome; Stenosis | | | | [place], | [address] [place] | of carotid artery, | | | | [place] [address] | [place] [address] | unspecified | | | | [phone] | [phone] | laterality; | | | | | [...] + + + +---------+ + + | [place]-3 Fatty | Take 1 g by mouth. [...] [place] | | | | | | [address] | | | | | | | [...] The parapharyngeal, retropharyngeal, and | | | wafer abrading machine tender spaces are normal. Complete fatty atrophy [...] | | left proximal ICA (series 4, and coronal series 602, image 70).Vertebrals: Left [...] nodularity as well as numerous | | bkfg-em-owtzatoagx opacities seen throughout both lungs with relative [...] of groundglass nodularity as well as numerous rcyx-kb-eeinsrpqpp | | opacities seen throughout both lungs [...]
--- OUTSIDE RECORDS SUMMARY | ~2019-11-20 | XMS | Encounter Summary ---
Demographics + + + | Address | [address] | | | [place] [address] | + + + | Home Phone | | + + + | Preferred Language | Unknown | + + + | Marital Status | | + + + | Advent Affiliation | Unknown | + + + | Race | Unknown | + + + | Ethnic Group | Unknown | + + + Author + + + | Author | [facility] | | | and Eduardana | + + + | Organization | [facility] | | | and [...] [place] | | | | | [address] | | + + + + + Care Team Providers + +------+ + | Care Silk Finisher Name | Role | Phone | + [...] | | | | IR Angiogram | [address] | | | | | | Lower | Phone: | | | | | | Extremity | [phone] | | | | | | Left | Fax: | | | | | | | [phone] | | +--------+--------+ + + + + [...] | | | (HCC) | [place], | [place], [place] | | | | | | [place] [address] | [address] Phone: | | | | | | Phone: | [phone] | | | | | | [phone] | Fax: | | | | | | Fax: | [phone] | | | | | | [phone] | | +--------+--------+ + + + + Encounter Details +--------+---------+ + + + | Date | Type | Department | Care Team | Description | +--------+---------+ + + + | 09/02/ | Office | [facility] | Osmin Garber MD | PAD (peripheral | | 2020 | Visit | VASCULAR SURGERY | [address] | artery disease) | | | | [address] | [address] | (HCC) (Primary Dx); | | | | E [place], [place] | [place] [address] | Bilateral carotid | | | | [address] | [phone] | artery stenosis | | | | [phone] | | | +--------+---------+ + + + [...] might be different from t he original. [facility] [address] [place] [address] Office: [phone] DATE OF VISIT: 09/02/2019 PATIENT NAME: Deborah Thomason : 1930; AGE: 88 y.o.; Sex:M PHONE NUMBER: ; (Work); ; PHYSICIAN: Osmin Garber MD PRIMARY CARE / REFERRING PHYSICIAN: Carlos Alberto Galeas,* / Bob Davis D / [address] / [place] [id number] / REASON FOR EVALUATION / CHIEF COMPLAINT: [...] and a right carotid endarterectomy done in [place] many years ago. Patient denies any recent illness, fever, chills, chest pain, or tfoyeyxyb-xd-dpcixm. Patie nt denies any amaurosis or stroke/TIA [...] 07/27/2019: IMPRESSION: 1. Right JEREMY showed triphasic BRIM BUSTER and monophasic DPA waveforms. 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 PVD (peripheral vascular disease) (HCC) 02/06/2018 Urinary retention Past Surgical History: Procedure Laterality Date CAROTID ENDARTERECTOMY Right CATARACT REMOVAL WITH IMPLANT Bilateral 03/30/10 and 04/27/10 CORONARY ANGIOPLASTY without stent [facility] Approx [id number] FEMUR FRACTURE SURGERY Right 12/19/2016 Procedure: ORIF [...] peripheral edema. Rate regular. ABD: non-tender SKIN: [place], dependent rubor on left. MUSCULOSKELETAL: ROM not [...] | | | | | [address] [place] | | | | | | [id number] | | | | | | | | +--------+---------+ + + + documented as of this encounter Results IR Angiogram Lower Extremity Left (09/11/2019 11:36 AM PST) + + | Specimen | + + | | + + + + ---+ | Narrative | Performed A t | + + ---+ | [facility] | [facility] | | Health & Services [...] iliac artery. Using | | | a [place] a endarterectomy was performed of the common [...] | | | advanced and a 8 Kenyan 23 cm Sheath was placed. A an [...] introduced a | | | 3 mm Juncos angioplasty balloon and dilated the common and [...] with a 10 mm | | | Juncos and the external iliac post dilated with an 8 mm Juncos. | | | Repeat contrast injection showed [...] signal in the profunda femoris, SFA, and CORROSION TECHNICIAN. The left groin wound | | | [...] signal in the profunda femoris, SFA, and CORROSION TECHNICIAN. The left | | |groin wound was thoroughly irrigated. The incision was then closed in | | |layers first with a 2-0 Vicryl, then 3-0 Vicryl. [place] were used to | | |re-approximate the [...]
--- OUTSIDE RECORDS SUMMARY | ~2019-11-20 | XMS | Encounter Summary ---
Demographics + + + | Address | [address] | | | [place] [address] | + + + | Home Phone [...] [facility] | | | [...] [place] | | | | | [address] | | + + + + + Care Team Providers + +------+ + | Care Financial Planning Assistant Name | Role | Phone | [...] | | | [address] [place] | [place] [address] | | | | | [place] [address] | | | | | | [phone] | | | +--------+ + + + [...] | | | | | [address] [place] | | | | | | [address] | | | | | | | [...]
--- OUTSIDE RECORDS SUMMARY | ~2019-11-20 | XMS | Encounter Summary ---
Demographics + + + | Address | [address] | | | [place] [address] | + + + | Home Phone | | + + + | Preferred Language | Unknown | + + + | Marital Status | | + + + | Congregation Affiliation | Unknown | + + + | Race | Unknown | + + + | Ethnic Group | Unknown | + + + Author + + + | Author | [facility] | | | and Eduardana | + + + | Organization | [facility] | | | and [...] [place] | | | | | [address] | | + + + + + Care Team Providers + +------+ + | Care Drapery Counselor Name | Role | Phone | + [...] | | | | | [address] | [place] | | | | | [place] | [address] | | | | | [address] | | | | | | [phone] | Kyree Escamilla | | | | | | MD Rian [address] | | | | | | [address] [facility] | | | | | | [place] [address] | | | | | | [phone] | | | | | | | [...] +----+---+ + + | | 1 | [place] | | | | 6 | 43-degrees | | | | 4 | | | | | 2 | | | +----+---+ + + | | 1 | First | | | | 6 | Inc/Proc St | | | | 5 | | | | | 2 | | | +----+---+ + + | | 1 | [place] off | | | | 9 | [...] due to | Lashaun Stein RN | eMagan Pendleton RN | | Cathet | unstable [...] | | posterior; arm; skin tear; | aLshaun Stein RN | Prema Michael RN | [...] [place] | | | | | | [address] | | | | | | | [...]
--- OUTSIDE RECORDS SUMMARY | ~2019-11-20 | XMS | Encounter Summary ---
Demographics + + + | Address | [address] | | | [place] [address] | + + + | Home Phone [...] | Organization | [facility] | [...] [place] | | | | | [address] | | + + + + + Care Team Providers + +------+ + | Care Financial Specialist Name | Role | Phone | [...] | | | | | | | [facility] | | | | | [...] + + | 09/11/ | Anesthesia | [facility] | Stephen Silva | | | 2019 | [facility] | BOBBY Carcamo [address] | | | | | OPERATING ROOM [address] | [address] | | | | | [address] | [place], [place] | | | | | [place], [place] | [address] | | | | | [address] | [phone] | | | | | [phone] | | | +--------+ + + + + Anesthesia Record + + + + + | Procedure Name | Responsible | Anesthesia Start | Anesthesia Stop Time | | | Anesthesiologist | Time | | + + + + + | ENDARTERECTOMY | Stephen Carcamo | 09/11/19 0723 | 09/11/19 1210 | | FEMORAL (Left | Gavel, LINTER OPERATOR | | | | Femoral Artery) | [...] | | procedure documentation); Mask | Shira, LINTER OPERATOR | XulBOBBY | | | Ventilation: EZ; [...] [place] | | | | | | [address] | | | | | | | [...]
--- OUTSIDE RECORDS SUMMARY | ~2019-11-20 | XMS | Encounter Summary ---
Demographics + + + | Address | [address] | | | [place] [address] | + + + | Home Phone [...] Organization | [facility] [...] [place] | | | | | [address] | | + + + + + Care Team Providers + +------+ + | Care Filler Shredder Machine Name | Role | Phone | + +------+ + | Carlos Alberto Galeas MD | PCP | | + +------+ + Encounter Details +--------+ + + + + | Date | Type | Department | Care Team | Description | +--------+ + + + + | 02/03/ | [facility] | [facility] | Carlos Alberto Galeas | Loss of weight | | 2018 | Encounter | MED CTR XRAY [address] | MD Dylan [address] | | | | | [address] | [address] | | | | | [place] [address] | [place] [address] | | | | | [phone] | [phone] | | | | | | | [...] [place] | | | | | | [address] | | | | | | | [...]
--- OUTSIDE RECORDS SUMMARY | ~2019-11-20 | XMS | Encounter Summary ---
Demographics + + + | Address | [address] | | | [place] [address] | + + + | Home Phone [...] | Author | [facility] | | | and Eduardana | + + + | Organization | [facility] | | | and [...] [place] | | | | | [address] | | + + + + + Care Team Providers + +------+ + | Care Power Shovel Operator Helper Name | Role | Phone | + [...] artery, unspecified | | | | [place], [place] | [address] [place] | laterality (Primary | | | | [address] | [place] [address] | Dx) | | | | [phone] | [phone] | | | | | | | [...] | | | | | [address] [address] [place], [place] | | | | | | [address] | | | | | | | [...] mL/min/1.73m2 | Gabriela KENIA | | | LITHUANIAN | RATE,ESTIMATED | | MEDICAL | | | | mL/min/1.66y2Xbcd than | | CENTER - | | [...] [address] | [place] | [phone] | | [facility] | | [address] | | | - LABORATORY | | | | + + + + + documented in this encounter Visit Diagnoses + + | Diagnosis | + + | Stenosis of carotid artery, unspecified laterality - Primary | + + documented in this encounter"
--- OUTSIDE RECORDS SUMMARY | ~2019-11-20 | XMS | Encounter Summary ---
Demographics + + + | Address | [address] | | | [place] [address] | + + + | Home Phone | | + + + | Preferred Language | Unknown | + + + | Marital Status | | + + + | Hindu Affiliation | Unknown | + + + | Race | Unknown | + + + | Ethnic Group | Unknown | + + + Author + + + | Author | [facility] | | | and Eduardana | + + + | Organization | [facility] | | | and [...] [place] | | | | | [address] | | + + + + + Care Team Providers + +------+ + | Care Medical Logistics Specialist Name | Role | Phone | [...] + + | 09/29/ | Office | [facility] | Osmin Garber MD | Critical limb | | 2019 | Visit | VASCULAR SURGERY | [address] | ischemia with | | | | [address] | [address] | history of | | | | E [place], [place] | [place] [address] | revascularization of | | | | [address] | [phone] | same extremity | | | | [phone] | | (Primary Dx) | +--------+---------+ + [...] might be different from t he original. [facility] [address] [place] [address] Office: [phone] DATE OF VISIT: 09/30/19 PATIENT NAME: Deborah Thomason : 1930; AGE:89 y.o.; Sex:M PHONE NUMBER: ; PHYSICIAN: Osmin Garber MD PRIMARY CARE / REFERRING PHYSICIAN: No ref. provider found / Carlos Alberto Galeas MD / [address] / [place] [address] REASON FOR EVALUATION / CHIEF COMPLAINT: evaluation [...] peripheral vascular disease, who is referred to [facility] for evaluation status-post left common femoral endarterectomy, [...] and left external iliac artery angioplasty with va on 09/11/2019. Patient has been overall well and gradually recovering since that time. Patient does continu e to experience left foot pain that is mildly improved when compared to before the surgery. Patient states symptoms are notably worse in the mornings, but improve throughout the day. 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 PVD (peripheral vascular disease) ([facility]) 02/06/2018 PVD (peripheral vascular disease) ([facility]) Urinary retention Past Surgical History: Procedure Laterality Date ARTERY SURGERY Left 09/11/2019 Procedure: ENDARTERECTOMY FEMORAL; Surgeon: Osmin Garber MD; Location: [facility] CAROTID ENDARTERECTOMY Right CATARACT REMOVAL WITH IMPLANT Bilateral 03/30/10 and 04/27/[address] [facility] [id number] FEMUR FRACTURE SURGERY Right 12/19/2016 Procedure: ORIF IM RODDING FEMORAL ANTEGRADE; Surgeon: Lambert Mancuso MD; Location: [facility] MAIN OR FEMUR FRACTURE SURGERY Left [...] umen on Q pain pump placement. [facility] - Dr. Delaney Right thigh biopsy 10/24/2011 nonspecific chronic dermatitis Ultrasound guided access, right common femoral artery 11/30/2013 Right iliac angiography, Right femoral angiography with runoff. [facility] - Dr. Delaney Social History Tobacco Use [...] from left iliac stents, and external iliac, CONTROL DIRECTOR, and PFA en darterectomy for LLE CLI. [...] | | | | | [address] [place], [place] | | | | | | [id number] | | | | | | | | +--------+---------+ + + + documented as of this encounter Visit Diagnoses + + | Diagnosis | + + | Critical limb ischemia with history of revascularization of same extremity - Primary | + + documented in this encounter
--- OUTSIDE RECORDS SUMMARY | ~2019-11-20 | XMS | Encounter Summary ---
Demographics + + + | Address | [address] | | | [place] [address] | + + + | Home Phone | | + + + | Preferred Language | Unknown | + + + | Marital Status | | + + + | Islam Affiliation | Unknown | + + + | Race | Unknown | + + + | Ethnic Group | Unknown | + + + Author + + + | Author | [facility] | | | and Eduardana | + + + | Organization | [facility] | | | and [...] [place] | | | | | [address] | | + + + + + Care Team Providers + +------+ + | Care Manager Imaging Name | Role | Phone | + [...] + + | 03/12/ | Office | [facility] | Valente Silvestre, | Interstitial lung | | 2018 | Visit | PULMONARY [address] | MD [address] | disease (HCC) | | | | [place], | [place] | | | | | [place] [address] | [address] | | | | | [phone] | | | +--------+---------+ + + + [...] This could be your family doctor or fluid jet cutter operator. Breast Worker.This is doctor who specializes in treatinglung problems. Respiratory therapist. This person givestreatment and support for people with lung dis ease. chemical plant worker. This person helps with your daily needs and family life, accessing commun [employer] resources, counseling services, and stress management. Date Last Reviewed: 09/19/201619997389-4510 [employer]. [address] [place] [address]. All righ ts reserved. 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 PVD (peripheral vascular disease) ([facility]) 02/06/2018 Urinary retention Allergies: Allergies Allergen Reactions [...] 15.7 oz) | SpO2 99% | B LA 25.79 kg/m Appearance: Alert, cooperative, no distress, [...] | | | | | [address] [place], [place] | | | | | | [address] | | | | | | | | +--------+---------+ + + + documented as of this encounter Visit Diagnoses + + | Diagnosis | + + | Interstitial lung disease (HCC) Postinflammatory pulmonary fibrosis | + + documented in this encounter
--- OUTSIDE RECORDS SUMMARY | ~2019-11-20 | XMS | Encounter Summary ---
Demographics + + + | Address | [address] | | | [place] [address] | + + + | Home Phone | | + + + | Preferred Language | Unknown | + + + | Marital Status | | + + + | Jain Affiliation | Unknown | + + + | Race | Unknown | + + + | Ethnic Group | Unknown | + + + Author + + + | Author | [facility] | | | and Eduardana | + + + | Organization | [facility] | | | and Eduardana [...] [place] | | | | | [address] | | + + + + + Care Team Providers + +------+ + | Care Remote Encoding Operations Supervisor Name | Role | Phone | [...] 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Michael I, | [place] | | | | | carotid | MD, FACS | [place], | | | | | artery, | [address] | [place] [address] | | | | | unspecified | [place] | Phone: | | | | | laterality | [place], [place] | [phone] | | | | | Procedures | [address] | Fax: | | | | | CT Angiogram | Phone: | [phone] | | | | | Neck w | [phone] | | | | | | Contrast | Fax: | | | | | | | [phone] | | +--------+--------+ + + + + [...] | | disease | [address] | | | | | ([facility]) | [address] | [place], | | | | | Procedures | [place], | [place] [address] | | | | | ME OFFICE | [place] [address] | Phone: | | | | | OUTPATIENT | Phone: | [phone] | | | | | NEW 45 | [phone] | Fax: | | | | | MINUTES | Fax: | [phone] | | | | | | [phone] | | +--------+--------+ + + + + [...] syndrome (Primary | | | | ST [place], [place] | [address] [place] | Dx); 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| | | [address] | [place] [address] | carotid artery, | | | | [phone] | [phone] | unspecified | | | | | [...] cavity is unremarkable. The parapharyngeal, retropharyngeal, and electrical sign wirer helper spaces are normal. 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 PVD (peripheral vascular disease) (HCC) 02/06/2018 Urinary retention Past Surgical History: Procedure Laterality Date CAROTID ENDARTERECTOMY Right CATARACT REMOVAL WITH IMPLANT Bilateral 03/30/10 and 04/27/10 CORONARY ANGIOPLASTY without stent [facility] Approx [id number] FEMUR FRACTURE SURGERY Right 12/19/2016 Procedure: ORIF IM RODDING FEMORAL ANTEGRADE; Surgeon: Lambert Mancuso MD; Location: [facility] MAIN OR FEMUR FRACTURE SURGERY Left 12/19/2016 Procedure: ORIF IM RODDING FEMORAL TROCHANTERIC NAIL; Surgeon: Lambert Mancuso MD; Locati on: [facility] MAIN OR Heart/ Arrhythmia ablation Right femoral to below knee popliteal reverse saphenus vein graft 12/01/2013 Right common femoral endarterectomy with Vascu-Guard patch angioplasty, Right external mk ac stent angioplasty 7x29 mm, Angiography, Harvesting right greater saphenous vein, Dual - l umen on Q pain pump placement. [facility] - Dr. Delaney Right thigh biopsy 10/24/2011 nonspecific chronic dermatitis Ultrasound guided access, right common femoral artery 11/30/2013 Right iliac angiography, Right femoral angiography with runoff. [facility] - Dr. Delaney Allergies Allergen Reactions Naproxen [...] TABS Take 1 tablet by mouth Daily. Lincroft-3 Fatty Acids (FISH OIL PO) Take 1 [...] claudication 4. I spoke with Dr Galeas ([phone]) regarding follow up for lung lesions seen [...] [place] | | | | | | [address] | | | | | | | [...]
--- OUTSIDE RECORDS SUMMARY | ~2019-11-20 | XMS | Encounter Summary ---
Demographics + + + | Address | [address] | | | [place] [address] | + + + | Home Phone [...] | Organization | [facility] [...] | [place] | | | | | [address] | | + + + + + Care Team Providers + +------+ + | Care Rougher Operator Name | Role | Phone | [...] | | | [address] [place] | [place] [address] | | | | | [place] [id number] | | | | | | [phone] | | | +--------+ + + + [...] [place] | | | | | | [address] | | | | | | | [...]
--- OUTSIDE RECORDS SUMMARY | ~2019-11-20 | XMS | Encounter Summary ---
Demographics + + + | Address | [address] | | | [place] [address] | + + + | Home Phone [...] + | Organization | [facility] | | | and Eduardana [...] [place] | | | | | [address] | | + + + + + Care Team Providers + +------+ + | Care Circle Saw Operator Name | Role | Phone | [...] | | | | | Procedures | [address] | | | | | | [address] | Phone: | | | | | | Art Bilat w | [phone] | | | | | | JEREMY Single | Fax: | | | | | | Lvl | [phone] | | +--------+--------+ + + + + Encounter Details +--------+ + + + + | Date | Type | Department | Care Team | Description | +--------+ + + + + | 07/27/ | Hospital | [facility] | Peggy Cason, DNP | Status post | | 2020 | Encounter | VASCULAR SURGERY | [address] | peripheral artery | | | | ULTRASOUND [address] | [address] | bypass | | | | [address] | [address] | | | | | [place] | | | | | | [address] | | | | | | [phone] | | | +--------+ + + + [...] [place] | | | | | | [address] | | | | | | | [...] + | 1. Right JEREMY showed triphasic LOGGING WORKER and monophasic DPA waveforms. | [facility] [...] | | Critical (Noninvasive Vascular Diagnosis, Jessica, [employer], | | | 2001, [place] Signed by: [...] | | calculated TBI: 0.56 Waveforms: Triphasic LOGGING WORKER. Monophasic DPA. | | | LEFT SEGMENTAL [...] | TBI: 0.56 | | Waveforms: Triphasic LOGGING WORKER. Monophasic DPA. | | | | LEFT SEGMENTAL BP: | | | | Brachial: 139 | | Ankle (PT): 43 | | Ankle(DP): Could not be obtained. | | Digit: 42 | | JEREMY (PT): 0.31 | | JEREMY (DP): Not calculated. | | TBI: 0.30 | | Waveforms: All vessels monophasic. | | | | IMPRESSION: | | 1. Right JEREMY showed triphasic LOGGING WORKER and monophasic DPA waveforms. The | | [...]
--- OUTSIDE RECORDS SUMMARY | ~2019-11-20 | XMS | Encounter Summary ---
Demographics + + + | Address | [address] | | | [place] [address] | + + + | Home Phone | | + + + | Preferred Language | Unknown | + + + | Marital Status | | + + + | Adventist Affiliation | Unknown | + + + | Race | Unknown | + + + | Ethnic Group | Unknown | + + + Author + + + | Author | [facility] | | | and Eduardana | + + + | Organization | [facility] [...] [place] | | | | | [address] | | + + + + + Care Team Providers + +------+ + | Care Cash Checker Name | Role | Phone | + +------+ + | Carlos Alberto Galeas MD | PCP | | + +------+ + Encounter Details +--------+ + + + + | Date | Type | Department | Care Team | Description | +--------+ + + + + | 12/23/ | Orders Only | [facility] | Jenni Meza | | | 2019 | | SURGERY [address] | | | | | [place] | | | | | | [address] | | | | | | [phone] | | | +--------+ + + + [...] | | | | | [place] [place] [place], [place] | | | | | | [address] | | | | | | | | +--------+---------+ + + + documented as of this encounter Visit Diagnoses Not on filedocumented in this encounter"
--- OUTSIDE RECORDS SUMMARY | ~2019-11-20 | XMS | Encounter Summary ---
Demographics + + + | Address | [address] | | | [place] [address] | + + + | Home Phone [...] Organization | [facility] [...] [place] | | | | | [address] | | + + + + + Care Team Providers + +------+ + | Care Conduit Cleaner Name | Role | Phone | [...] atrial | MD, FACS | [address] | | | | | fibrillation | [address] | [place], | | | | | (HCC) | [place] | [place] | | | | | Procedures | [place], [place] | [address] | | | | | PARACHUTIST/COMBATANT DIVER QUALIFIED | [address] | Phone: | | | | | | Phone: | [phone] | | | | | | [phone] | Fax: | | | | | | Fax: | [phone] | | | | | | [phone] | | +--------+ + + + + + Reason for Visit + + + | Reason | Comments | + + + | Follow-up | CT follow up | + + + Encounter Details +--------+---------+ + + + | Date | Type | Department | Care Team | Description | +--------+---------+ + + + | 12/31/ | Office | [facility] [place] [facility] | Michael Alston | Stenosis of carotid | | 2019 | Visit | SURGERY [address] | MD Dante, FACS [address] | artery, unspecified | | | | [place], [place] | [address] [place] | laterality (Primary | | | | [address] | [place] [address] | Dx); 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 Has not followed up with his production sorter. He admits to occasional dizzy ep isodes. [...] before needing to sit down. Cardiac: Denies ND. Patient sees inlayer Dr. 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 PVD (peripheral vascular disease) ([facility]) 02/06/2018 Urinary retention Past Surgical History: Procedure Laterality Date CAROTID ENDARTERECTOMY Right CATARACT REMOVAL WITH IMPLANT Bilateral 03/30/10 and 04/27/10 CORONARY ANGIOPLASTY without stent [facility] Approx [id number] FEMUR FRACTURE SURGERY Right 12/19/2016 Procedure: ORIF IM RODDING FEMORAL ANTEGRADE; Surgeon: Lambert Mancuso MD; Location: [facility] MAIN OR FEMUR FRACTURE SURGERY Left 12/19/2016 Procedure: ORIF IM RODDING FEMORAL TROCHANTERIC NAIL; Surgeon: Lambert Mancuso MD; Locati on: [facility] MAIN OR Heart/ Arrhythmia ablation Right femoral to below knee popliteal reverse saphenus vein graft 12/01/2013 Right common femoral endarterectomy with Vascu-Guard patch angioplasty, Right external mk ac stent angioplasty 7x29 mm, Angiography, Harvesting right greater saphenous vein, Dual - l umen on Q pain pump placement. [facility] - Dr. Delaney Right thigh biopsy 10/24/2011 nonspecific chronic dermatitis Ultrasound guided access, right common femoral artery 11/30/2013 Right iliac angiography, Right femoral angiography with runoff. [facility] - Dr. Delaney Allergies Allergen Reactions Naproxen [...] Would like patient to establish with a inlayer from [facility], will refer him to jaycob ferrell for [...] [place] | | | | | | [address] | | | | | | | [...] 107/19; ECA: 194/9; ICA: 130/17 (ICA/CCA 2.3, [id number]/27 with | | ratio of 2.9)Posterior circulation: [...]
--- OUTSIDE RECORDS SUMMARY | ~2019-11-20 | XMS | Encounter Summary ---
Demographics + + + | Address | [address] | | | [place] [address] | + + + | Home Phone [...] + | Organization | [facility] | | | and Eduardana [...] [place] | | | | | [address] | | + + + + + Care Team Providers + +------+ + | Care Licensing Specialist Name | Role | Phone | [...] | | | [address] [place] | [place] [address] | | | | | [place] [address] | | | | | | [phone] | | | +--------+ + + + [...] | | | | | | [facility] [place] | | | | | | [address] | | | | | | | [...]
--- OUTSIDE RECORDS SUMMARY | ~2019-11-20 | XMS | Encounter Summary ---
Demographics + + + | Address | [address] | | | [place] [address] | + + + | Home Phone | | + + + | Preferred Language | Unknown | + + + | Marital Status | | + + + | Mu-Ism Affiliation | Unknown | + + + | Race | Unknown | + + + | Ethnic Group | Unknown | + + + Author + + + | Author | [facility] | | | and Eduardana | + + + | Organization | [facility] [...] [place] | | | | | [address] | | + + + + + Care Team Providers + +------+ + | Care Field Clerk Name | Role | Phone | [...] [place] | | | | | [place], [place] | [place] [address] | | | | | [address] | [phone] | | | | | [phone] | | | +--------+ + + + [...] [place] | | | | | | [address] | | | | | | | | +--------+---------+ + + + documented as of this encounter Visit Diagnoses Not on filedocumented in this encounter"
--- OUTSIDE RECORDS SUMMARY | ~2019-11-20 | XMS | Encounter Summary ---
Demographics + + + | Address | [address] | | | [facility] [address] | + + + | Home Phone | | + + + | Preferred Language | Unknown | + + + | Marital Status | | + + + | Pentecostalism Affiliation | Unknown | + + + | Race | Unknown | + + + | Ethnic Group | Unknown | + + + Author + + + | Author | [facility] | | | and Eduardana | + + + | Organization | [facility] | | | and [...] [facility] | | | | | [address] | | + + + + + Care Team Providers + +------+ + | Care Field Contact Person Name | Role | Phone | + [...] | | | | | | | ([facility]) | | | | | | | Procedures | | | | | | | ENDARTERECTO | | | | | | | GERALD DANIELS | | | +--------+--------+ + + + + Encounter Details +--------+---------+ + + + | Date | Type | Department | Care Team | Description | +--------+---------+ + + + | 09/11/ | Surgery | [facility] | Osmin Garber MD | ENDARTERECTOMY | | 2020 | [facility] | [address] | FEMORAL | | | | OPERATING ROOM [address] | [facility] Osvaldo [facility] | | | | | [address] | [place] [address] | | | | | [place], [place] | [phone] | | | | | [address] | | | | | | [phone] | | | +--------+---------+ + + + [...] might be different fr om the original. [facility] Service: Hospitalist Physician Discharge Summary [...] the patient adamantly refused going to a assisted facil [facility]. The patient's son and indicated they felt comfortable with him returning home. As a r esult, he was discharged home with care of his family. adoption worker was involved, in assistance with home [...] is instructed to follow up with his analytical strategist, Dr. Selby in approximately 2 weeks. 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 PVD (peripheral vascular disease) (HCC) 02/06/2018 PVD (peripheral vascular disease) (HCC) Urinary retention Past Surgical History: Procedure Laterality Date ARTERY SURGERY Left 09/11/2019 Procedure: ENDARTERECTOMY FEMORAL; Surgeon: Osmin Garber MD; [place] [facility] [place] CAROTID ENDARTERECTOMY Right CATARACT REMOVAL WITH IMPLANT Bilateral 03/30/10 and 04/27/10 CORONARY ANGIOPLASTY without stent [facility] Approx [id number] FEMUR FRACTURE SURGERY Right 12/19/2016 Procedure: ORIF IM RODDING FEMORAL ANTEGRADE; Surgeon: Lambert Mancuso MD; Location: [facility] MAIN OR FEMUR FRACTURE SURGERY Left 12/19/2016 Procedure: ORIF IM RODDING FEMORAL TROCHANTERIC NAIL; Surgeon: Lambert Mancuso MD; Locati on: [facility] MAIN OR Heart/ Arrhythmia ablation Right femoral to below knee popliteal reverse saphenus vein graft 12/01/2013 Right common femoral endarterectomy with Vascu-Guard patch angioplasty, Right external mk ac stent angioplasty 7x29 mm, Angiography, Harvesting right greater saphenous vein, Dual - l umen on Q pain pump placement. [facility] - Dr. Delaney Right thigh biopsy 10/24/2011 nonspecific chronic dermatitis Ultrasound guided access, right common femoral artery 11/30/2013 Right iliac angiography, Right femoral angiography with runoff. [facility] - Dr. Delaney Discharged Condition: Stable [...] [place] [address] [place] [address] In 1 week Osmin Garber MD [address] [facility] [place] [facility] [address] In 2 weeks Follow-up post vascular intervention, staple removal Paolo Selby MD [address] [facility] [address] In 2 weeks Follow-up for atrial fibrillation 2019 1:54 PM Signed: Electronically signed by: Thor Yang MD, 2019 1:54 PM [facility] Discharge took more than 35 minutes, to include final examination, discussion of admission, and preparation of prescriptions, instructions for ongoing care, follow up and dictation of summary. Portions of this chart may have been created with SkyBitz voice recognition software. Occasi onal wrong-word or [...] admitted for limb ischemia. He underwent planned MANAGER OF ADMINISTRATION endarterectomy and angio plasty on 09/11/19. Per climatology professor reconciliation, warfarin was on hold since 09/03 [...] might be diff erent from the original. [facility] Service: Vascular Surgery Progress Note [...] complete. Jenny Marie RN ham, Marky Montoya [facility] - 09/19/2019 2:09 PM PST Pharmacy Warfarin Monitoring: Deborah Thomason male 88 y.o., admitted for limb ischemia. He underwent planned MANAGER OF ADMINISTRATION endarterectomy and angio plasty on 09/11/19. Per climatology professor reconciliation, warfarin was on hold since 09/03 [...] might be dif ferent from the original. [facility] Service: Vascular Surgery Progress Note [...] MD - 0 09/19/2019 7:56 AM PST [facility] Adult Hospitalist Progress Note Hospital [...] approximately 24 hours [facility]. Physical [...] endarterectomy -Continue Plavix -PT, will require SNF; chemistry department chair to assist with placement, patient agreeable #4. [...] this chart may have been created with SkyBitz voice recognition software. Occasi onal wrong-word or [...] might be different from the or iginal. [facility] Adult Hospitalist Progress Note Hospital [...] approximately 24 hours and [facility] on 09/18/2019 OBJECTIVE Vital Signs: BP [...] this chart may have been created with SkyBitz voice recognition software. Occasi onal wrong-word or sound-alike substitutions may have occurred due to the inherent ness itations of voice recognition software. Please read the chart carefully and recognize, using context, where these substitutions have occurred Anurag Amato MD - 09/18/2019 1:24 PM PST [facility] Service: Cardiology Progress Note Hospital [...] Patient was admitted and underwen t today MANAGER OF ADMINISTRATION endarterectomy and angioplasty. EBL was 200-400ml. He [...] note might be different from the origin [facility] Service: Squash Centre Manager Progress Note Deborah Thomason 88 y.o. [...] Code Jeramy Chapa MD 09/18/2019 Dictation software, SkyBitz, was used which may contain error with [...] Patient reports chronic hypotension. Susanna Simon MD Squash Centre Manager 09/18/2019 Please bill 40 minutes of critical care time spent evaluating the patient, reviewing the da ta and formulating a plan exclusive of procedures. Anurag Villa MD - 09/17/2019 5: 24 PM PST [facility] Service: Cardiology Progress Note Hospital [...] Patient was admitted and underwen t today MANAGER OF ADMINISTRATION endarterectomy and angioplasty. EBL was 200-400ml. He [...] Villa MD roctor, Elías Suarez, [facility] - 09/17/2019 2:53 PM PSTFormatting of this note might be different from the origi nal. Pharmacy Warfarin Monitoring: Deborah Thomason male 88 y.o., admitted for limb ischemia. He underwent planned MANAGER OF ADMINISTRATION endarterectomy and angio plasty on 09/11/19. Per climatology professor reconciliation, warfarin was on hold since 09/03 [...] Robertson PA - 09/17/2019 1:20 PM PST [facility] Service: Vascular Surgery Progress Note Hospital Day: LOS: 6 days Post-Op Day: 3 ASSESSMENT & PLAN POD #3, S/p Lt LIA, EIA stent, Lt MANAGER OF ADMINISTRATION endarterectomy for LLE CLI, transferred to ICU [...] Grove MD - 09/17/2019 8:29 AM PST [facility] Service: Squash Centre Manager Progress Note Deborah Thomason 88 y.o. Hospital Day: LOS: 6 days Post-Op Day: 6 Days Post-Op Consulting Physicians Treatment Team: Anurag Villa MD SUBJECTIVE Patient Summary:The patient is a88 y.o.malewith significant past medical his tory ofatrial fib/flutter on Coumadin, bilateral carotid artery disease with previous R ca rotid endarterectomy, CVA (without residual deficit), PVD, and [facility] [...] Code Jeramy Chapa MD 09/17/2019 Dictation software, SkyBitz, was used which may contain error with [...] phenylephrine as BP tolerates. Susanna Simon MD Squash Centre Manager 09/17/2019 Please bill 40 minutes of [...] this note [facility] be different [facility] Note Hospital Day: [...] Patient was admitted and underwen t today MANAGER OF ADMINISTRATION endarterectomy and angioplasty. EBL was 200-400ml. He [...] might be different from the origin al. [facility] Service: Squash Centre Manager Progress Note Deborah Thomason 88 y.o. [...] Code Jeramy Chapa MD 09/16/2019 Dictation software, SkyBitz, was used which may contain error with [...] phenylephrine as BP tolerates. Susanna Simon MD Squash Centre Manager 09/16/2019 1:33 PM Please bill 40 minutes of critical care time spent evaluating the patient, reviewing the da ta and formulating a plan exclusive of procedures. Kendell Robertson PA - 09/16/2019 8:[address] [facility] Service: Vascular Surgery Progress Note Hospital Day: LOS: 5 days Post-Op Day: 2 ASSESSMENT & PLAN POD #2, S/p Lt LIA, EIA stent, Lt MANAGER OF ADMINISTRATION endarterectomy for LLE CLI, transferring to ICU [...] Monroy MD - 09/15/2019 2:47 PM PST [facility] Service: Squash Centre Manager Progress Note Deborah Thomason 88 y.o. [...] Code Jeramy Chapa MD 09/15/2019 Dictation software, SkyBitz, was used which may contain error with [...] phenylephrine as BP tolerates. Susanna Simon MD Squash Centre Manager [facility] 09/15/2019 4:12 PM Please bill 40 minutes of critical care time spent evaluating the patient, reviewing the da ta and formulating a plan exclusive of procedures. Karley Tobar [facility] - 09/15/2019 2:08 PM PSTFormatting of this note might be differen t from the original. Pharmacy Warfarin Monitoring: Deborah Thomason male 88 y.o., admitted for limb ischemia. He underwent planned MANAGER OF ADMINISTRATION endarterectomy and angio plasty on 09/11/19. Per climatology professor reconciliation, warfarin was on hold since 09/03 [...] modify therapy as indicated. Karley Tobar, PharmD, [facility] 09/15/19 2:08 PM Hai Amato MD - 09/15/2019 9:56 AM PSTFormatting of this note might be different from the kailey cuevas [facility] Service: Cardiology Progress Note Hospital [...] Patient was admitted and underwen t today MANAGER OF ADMINISTRATION endarterectomy and angioplasty. EBL was 200-400ml. He [...] Code Status: Full Code [facility]ag [facility] hilliard MD - 09/15/2019 7:28 AM PSTVascular [...] I, DO - 09/14/2019 1:54 PM PST [facility] Progress Note Primary Care Physician: Carlos [...] this note might be different from the [facility] Service: Cardiology Progress Note Hospital Day: [...] Patient was admitted and underwen t today MANAGER OF ADMINISTRATION endarterectomy and angioplasty. EBL was 200-400ml. He [...] Consult Continuous Infusions amiodarone 0.5 mg/min (09/14/19 3748) niCARdipine Stopped (09/11/19 1706) phenylephrine Stopped (09/14/19 0928) PRN Medications HYDROmorphone, Magnesium replacement - NON [...] Anurag Villa MD Karley Pichardo [facility] - 09/14/2019 9:59 AM PSTRenal Dosing [...] and will adjust accordingly. Karley Tobar, PharmD, [facility] 09/14/19 7:50 AM Jeramy Grove MD - 09/14/2019 8:06 AM PSTFormatting of this note might be different from the [facility] Service: Squash Centre Manager Progress Note Deborah Thomason 88 y.o. [...] improve. Cardiology previously consulted by the hospitalist jluio bravo. On amiodarone infusion. Have titrated phenylephrine [...] Code Jeramy Chapa MD 09/14/2019 Dictation software, SkyBitz, was used which may contain error with [...] phenylephrine as BP tolerates. Susanna Simon MD Squash Centre Manager 09/14/2019 Please bill 40 minutes of critical care time spent evaluating the patient, reviewing the da ta and formulating a plan exclusive of procedures. Karley Tobar, [facility] - 09/14/2019 7:51 AM PST Pharmacy Warfarin Monitoring: Deborah Thomason male 88 y.o., admitted for limb ischemia. He underwent planned MANAGER OF ADMINISTRATION endarterectomy and angio plasty on 09/11/19. Per climatology professor reconciliation, warfarin was on hold since 09/03 [...] DO - 09/13/2019 4:04 PM PST . [facility] Progress Note Primary Care Physician: Carlos [...] this note might be different from the [facility] Service: Cardiology Progress Note Hospital Day: [...] Patient was admitted and underwen t today MANAGER OF ADMINISTRATION endarterectomy and angioplasty. EBL was 200-400ml. He [...] Full Code Anurag Villa MD Lani Brown, [facility] - 09/13/2019 1:43 PM PSTFormatting of this note might be different from the origi nal. Pharmacy Warfarin Monitoring: Deborah Thomason is an 88 year old male admitted for limb ischemia. He underwent planned MANAGER OF ADMINISTRATION endarterectomy and angioplasty on 09/11/19. Per climatology professor reconciliation, warfarin w as on hold since [...] with HR 140-160's. notified. Report called to Pagie DELGADO, agreed to continue care, all questions answered. Nika Lockett MD - 09/13/2019 8:27 AM PST [facility] Service:hospitalist Progress Note Hospital Day: [...] Procedure Component Value Units Date/Time MRSA NAAT [[id number]] Collected: 09/10/19 1553 Order Status: Completed Lab Status: Final result Updated: 09/10/19 1855 Specimen: Tissue from Nares SOURCE: NARES(NOSE) Result NEGATIVE Comment: Testing performed [place] [facility] [place] [address];[place] [address] No results found for this or any previous visit (from the past 360 hour(s)). Results for orders placed or performed in visit on 06/10/19 ECG 12 lead Result Value Ref Range INTERPRETATION TEXT Atrial fibrillation Possible Anterior infarct , age undetermined Abnormal ECG No previous ECGs available Please refer to Providers office visit note for Providers Interpretation. Confirmed by [employer] [place] Read Only, JUAN Warren ([id number]), editor newspaper Maximiliano Yee ([id number]) on 019 2:24:36 PM [...] admitted for limb ischemia. He underwent planned MANAGER OF ADMINISTRATION endarterectomy and angio plasty on 09/11/19. Per climatology professor reconciliation, warfarin was on hold since 09/03 [...] of shift. MD, vascular, sepsis RN and airline manager aware. Currently on 20 mcg of kailee with sbp 110's. End of shift chart check complete. Oma Kumar RN Ayala Covarrubias DO - 09/12/2019 5:16 PM PSTFormatting of this note might be different from the rand dominguez. [facility] Progress Note Primary Care Physician: Carlos [...] for Atrial fibrillation, trend troponins to exclude MA. Electronically signed by: Jess Webber DO, 09/12/2019 5:16 PM Nika Lockett MD - 09/12/2019 8:36 AM PST [facility] Service:hospitalist Progress Note Hospital Day: [...] Procedure Component Value Units Date/Time MRSA NAAT [[id number]] Collected: 09/10/19 155 Order Status: Completed Lab Status: Final result Updated: 09/10/19 185 Specimen: Tissue from Nares SOURCE: NARES(NOSE) Result NEGATIVE Comment: Testing performed [place] [facility] [place] [address];[place] [address] No results found for this or any previous visit (from the past 360 hour(s)). Results for orders placed or performed in visit on 06/10/19 ECG 12 lead Result Value Ref Range INTERPRETATION TEXT Atrial fibrillation Possible Anterior infarct , age undetermined Abnormal ECG No previous ECGs available Please refer to Providers office visit note for Providers Interpretation. Confirmed by [employer] Read Only, JUAN Warren ([id number]), editor newspaper Maximiliano Yee ([id number]) on 019 2:24:36 PM [...] all B P meds and monitor, per DIRECTOR OF LITIGATION is aware Chronic diastolic HF seems stable [...] check complete. Fadia Estrada RN Karley Pichardo [facility] - 09/11/2019 6:50 PM PSTFormatting of thi s note might be different from the original. Pharmacy Warfarin Monitoring: Deborah Thomason male 88 y.o., admitted for limb ischemia. He underwent planned MANAGER OF ADMINISTRATION endarterectomy and angio plasty on 09/11/19. Per climatology professor reconciliation, warfarin was on hold since 09/03 [...] and modify therapy as indicated. Feli FowlerD, [facility] 09/11/19 6:49 PM documented in thi s encounter Plan of Treatment +--------+---------+ + + + | Date | Type | Specialty | Care Team | Description | +--------+---------+ + + + | 01/26/ | Office | Cardiology | Paolo Selby, | | | 2019 | Visit | | MD Marjan WARREN | | | | | | [address] [place], [place] | | | | | | [id number] | | | | | | | [...] disease) | | | | | | ([facility]) Atrial | | | | | | fibrillation with | | | | | | RVR ([facility]) | | + + +--------+ + + | Referral to Home | Outpatient | Routin | PAD (peripheral | Ordered: 2019 | | Health | Referral | e | artery disease) | | | | | | ([facility]) Chronic | | | | | | [...] the | | | | PST | ([facility]) | results section. | + +--------+ + + + | SURGICAL PATHOLOGY | Routin | 09/11/2019 | PAD (peripheral | Results for this | | EXAM | e | 8:17 AM | artery disease) | procedure are in the | | | | PST | ([facility]) | results section. | + +--------+ + + + | ENDARTERECTOMY | | 09/11/2019 | PAD (peripheral | | | FEMORAL | | 7:08 AM | artery disease) | | | | | PST | ([facility]) | | + +--------+ + + + [...] | | | performed at [facility] | | LABORATORY | | | | [address];[place] | | | | | | [address] | | | | + + + + + + + + | Specimen | + + | Blood | + + + + + + + | Performing | Address | City/State/Zipcode | Phone Number | | Organization | | | | + + + + + | [facility] | [address] | [place] [address] | [phone] | + + + + + CBC [...] | Absolute | performed at [facility];[address] | K/uL | LABORATORY | | | | [address];[place], [place] | | | | | | [address] | | | | + + + + + + + + | Specimen | + + | Blood | + + + + + + + | Performing | Address | City/State/Zipcode | Phone Number | | Organization | | | | + + + + + | [facility] | [address] | [place] [address] | [phone] | + + + + + Comprehensive [...] | | | performed at [facility];[address] | | | | | | [address];[place], [place] | | | | | | [address] | | | | + + + + + + + + | Specimen | + + | Blood | + + + + + + + | Performing | Address | City/State/Zipcode | Phone Number | | Organization | | | | + + + + + | [facility] | [address] [facility] | [place] [address] | [phone] | + + + + + Protime [...] | | | performed at [facility];[address] | | | | | | [address];[place], [place] | | | | | | [address] | | | | + + + + + + + + | Specimen | + + | Blood | + + + + + + + | Performing | Address | City/State/Zipcode | Phone Number | | Organization | | | | + + + + + | [facility] | [address] | [place] [address] | [phone] | + + + + + Potassium (09/19/2019 8:20 PM PST) + + + + + + | Component | Value | Ref Range | Performed | Pathologist | | | | | At | Signature | + + + + + + | K | 4.3Comment: Testing | 3.5 - 4.9 | [facility] | | | | performed at [facility];[address] | mmol/L | LABORATORY | | | | [address];[place], [place] | | | | | | [address] | | | | + + + + + + + + | Specimen | + + | Blood | + + + + + + + | Performing | Address | City/State/Zipcode | Phone Number | | Organization | | | | + + + + + | [facility] | [address] | [place] [address] | [phone] | + + + + + Potassium (09/19/2019 11:06 AM PST) + + + + + + | Component | Value | Ref Range | Performed | Pathologist | | | | | At | Signature | + + + + + + | K | 4.0Comment: Testing | 3.5 - 4.9 | [facility] | | | | performed at [facility];[address] | mmol/L | LABORATORY | | | | [address];[place] | | | | | | [address] | | | | + + + + + + + + | Specimen | + + | Blood | + + + + + + + | Performing | Address | City/State/Zipcode | Phone Number | | Organization | | | | + + + + + | [facility] | [address] | [place] [address] | [phone] | + + + + + Magnesium (09/19/2019 4:20 AM PST) + + + + + + | Component | Value | Ref Range | Performed | Pathologist | | | | | At | Signature | + + + + + + | Magnesium | 1.7Comment: Testing | 1.7 - 2.4 mg/dL | [facility] | | | | performed at [facility];[address] | | LABORATORY | | | | [address] [facility];[place], [place] | | | | | | [address] | | | | + + + + + + + + | Specimen | + + | Blood | + + + + + + + | Performing | Address | City/State/Zipcode | Phone Number | | Organization | | | | + + + + + | [facility] | [address] | [place] [address] | [phone] | + + + + + CBC [...] | Absolute | performed at [facility];[address] | K/uL | LABORATORY | | | | [address];[place] | | | | | | [address] | | | | + + + + + + + + | Specimen | + + | Blood | + + + + + + + | Performing | Address | City/State/Zipcode | Phone Number | | Organization | | | | + + + + + | [facility] | [address] | [place] [address] | [phone] | + + + + + Comprehensive [...] | | | performed at [facility];[address] | | | | | | [address];[place] | | | | | | [address] | | | | + + + + + + + + | Specimen | + + | Blood | + + + + + + + | Performing | Address | City/State/Zipcode | Phone Number | | Organization | | | | + + + + + | [facility] | [address] | [place] [address] | [phone] | + + + + + Protime [...] | | | performed at [facility];[address] | | | | | | [address];[place], [place] | | | | | | [address] | | | | + + + + + + + + | Specimen | + + | Blood | + + + + + + + | Performing | Address | City/State/Zipcode | Phone Number | | Organization | | | | + + + + + | [facility] | [address] | [place] [address] | [phone] | + + + + + Magnesium (09/18/2019 4:06 AM PST) + + + + + + | Component | Value | Ref Range | Performed | Pathologist | | | | | At | Signature | + + + + + + | Magnesium | 1.9Comment: Testing | 1.7 - 2.4 mg/dL | [facility] | | | | performed at [facility];[address] | | LABORATORY | | | | [address];[place], [place] | | | | | | [address] | | | | + + + + + + + + | Specimen | + + | Blood | + + + + + + + | Performing | Address | City/State/Zipcode | Phone Number | | Organization | | | | + + + + + | [facility] | [address] | [place] [address] | [phone] | + + + + + CBC [...] | Absolute | performed at [facility];[address] | K/uL | LABORATORY | | | | [address];[place] | | | | | | [address] | | | | + + + + + + + + | Specimen | + + | Blood | + + + + + + + | Performing | Address | City/State/Zipcode | Phone Number | | Organization | | | | + + + + + | [facility] | [address] | [place] [address] | [phone] | + + + + + Comprehensive [...] | >60Comment: GFR <60: | >60 | [facility] | | | GFR | [...] | | | | | | MDRD [facility] traceable | | | | | | equation.Testing | | | | | | performed at [facility] | | | | | | [facility];[place], [place] | | | | | | [address] | | | | + + + + + + + + | Specimen | + + | Blood | + + + + + + + | Performing | Address | City/State/Zipcode | Phone Number | | Organization | | | | + + + + + | [facility] | [address] [facility] | [place] [address] | [phone] | + + + + + Protime [...] | | | performed at [facility];[address] | | | | | | [address];[place] | | | | | | [address] | | | | + + + + + + + + | Specimen | + + | Blood | + + + + + + + | Performing | Address | City/State/Zipcode | Phone Number | | Organization | | | | + + + + + | [facility] | [address] | [place] [address] | [phone] | + + + + + Magnesium (09/18/2019 12:02 AM PST) + + + + + + | Component | Value | Ref Range | Performed | Pathologist | | | | | At | Signature | + + + + + + | Magnesium | 2.0Comment: Testing | 1.7 - 2.4 mg/dL | [facility] | | | | performed at [facility] | | LABORATORY | | | | [address];[place], [place] | | | | | | [address] | | | | + + + + + + + + | Specimen | + + | Blood | + + + + + + + | Performing | Address | City/State/Zipcode | Phone Number | | Organization | | | | + + + + + | [facility] | [address] | [place] [address] | [phone] | + + + + + Phosphorus (09/18/2019 12:02 AM PST) + + + + + + | Component | Value | Ref Range | Performed | Pathologist | | | | | At | Signature | + + + + + + | Phosphorus | 2.4Comment: Testing | 2.3 - 4.8 mg/dL | [place] | | | | performed at [facility] | | LABORATORY | | | | [address];[place], [place] | | | | | | [address] | | | | + + + + + + + + | Specimen | + + | Blood | + + + + + + + | Performing | Address | City/State/Zipcode | Phone Number | | Organization | | | | + + + + + | [facility] | [address] | [place] [address] | [phone] | + + + + + Potassium (09/18/2019 12:02 AM PST) + + + + + + | Component | Value | Ref Range | Performed | Pathologist | | | | | At | Signature | + + + + + + | K | 3.8Comment: Testing | 3.5 - 4.9 | [facility] | | | | performed at [facility];[address] | mmol/L | LABORATORY | | | | [address];[place], [place] | | | | | | [address] | | | | + + + + + + + + | Specimen | + + | Blood | + + + + + + + | Performing | Address | City/State/Zipcode | Phone Number | | Organization | | | | + + + + + | [facility] | [address] | [place] [address] | [phone] | + + + + + Phosphorus (09/17/2019 4:38 AM PST) + + + + + + | Component | Value | Ref Range | Performed | Pathologist | | | | | At | Signature | + + + + + + | Phosphorus | 2.5Comment: Testing | 2.3 - 4.8 mg/dL | [facility] | | | | performed at [facility] | | LABORATORY | | | | [address];[place], [place] | | | | | | [address] | | | | + + + + + + + + | Specimen | + + | Blood | + + + + + + + | Performing | Address | City/State/Zipcode | Phone Number | | Organization | | | | + + + + + | [facility] | [address] | [place] [address] | [phone] | + + + + + Magnesium (09/17/2019 4:38 AM PST) + + + + + + | Component | Value | Ref Range | Performed | Pathologist | | | | | At | Signature | + + + + + + | Magnesium | 1.8Comment: Testing | 1.7 - 2.4 mg/dL | [place] | | | | performed at [facility] | | LABORATORY | | | | [facility];[place], [place] | | | | | | [address] | | | | + + + + + + + + | Specimen | + + | Blood | + + + + + + + | Performing | Address | City/State/Zipcode | Phone Number | | Organization | | | | + + + + + | [facility] | [address] | [place] [address] | [phone] | + + + + + CBC [...] | Absolute | performed at [facility];[address] | K/uL | LABORATORY | | | | [address];[place], [place] | | | | | | [address] | | | | + + + + + + + + | Specimen | + + | Blood | + + + + + + + | Performing | Address | City/State/Zipcode | Phone Number | | Organization | | | | + + + + + | [facility] | [address] | [place] [address] | [phone] | + + + + + Comprehensive [...] | | | performed at [facility] | | | | | | [facility];[place] | | | | | | [address] | | | | + + + + + + + + | Specimen | + + | Blood | + + + + + + + | Performing | Address | City/State/Zipcode | Phone Number | | Organization | | | | + + + + + | [facility] | [address] | [place] [address] | [phone] | + + + + + Sally [...] | | | performed at [facility] | | | | | | [address] [facility];[place], [place] | | | | | | [address] | | | | + + + + + + + + | Specimen | + + | Blood | + + + + + + + | Performing | Address | City/State/Zipcode | Phone Number | | Organization | | | | + + + + + | [facility] | [address] | [place] [address] | [phone] | + + + + + Phosphorus (09/16/2019 4:11 AM PST) + + + + + + | Component | Value | Ref Range | Performed | Pathologist | | | | | At | Signature | + + + + + + | Phosphorus | 2.7Comment: Testing | 2.3 - 4.8 mg/dL | [facility] | | | | performed at [facility] | | LABORATORY | | | | [address];[place] | | | | | | [address] | | | | + + + + + + + + | Specimen | + + | | + + + + + + + | Performing | Address | City/State/Zipcode | Phone Number | | Organization | | | | + + + + + | [facility] | [address] | [place] [address] | [phone] | + + + + + Magnesium (09/16/2019 4:11 AM PST) + + + + + + | Component | Value | Ref Range | Performed | Pathologist | | | | | At | Signature | + + + + + + | Magnesium | 2.4Comment: Testing | 1.7 - 2.4 mg/dL | [facility] | | | | performed at [facility] | | LABORATORY | | | | [address];[place] | | | | | | [address] | | | | + + + + + + + + | Specimen | + + | Blood | + + + + + + + | Performing | Address | City/State/Zipcode | Phone Number | | Organization | | | | + + + + + | [facility] | [address] | [place] [address] | [phone] | + + + + + CBC [...] | Absolute | performed at [facility];[address] | K/uL | LABORATORY | | | | [address];[place] | | | | | | [address] | | | | + + + + + + + + | Specimen | + + | Blood | + + + + + + + | Performing | Address | City/State/Zipcode | Phone Number | | Organization | | | | + + + + + | [facility] | [address] | [place] [address] | [phone] | + + + + + Comprehensive [...] | | | | | | MDRD IDDE traceable | | | | | | equation.Testing | | | | | | performed at [facility] | | | | | | [facility];[place], [place] | | | | | | [address] | | | | + + + + + + + + | Specimen | + + | Blood | + + + + + + + | Performing | Address | City/State/Zipcode | Phone Number | | Organization | | | | + + + + + | [facility] | [address] | [place] [address] | [phone] | + + + + + Protime INR (09/16/2019 4:11 AM PST) + + + + + + | Component | Value | Ref Range | Performed | Pathologist | | | | | At | Signature | + + + + + + | INR | 1.6Comment: REFERENCE | | [facility] | | | | RANGE:0.9 [...] | | | performed at [facility];[address] | | | | | | [address];[place], [place] | | | | | | [address] | | | | + + + + + + + + | Specimen | + + | Blood | + + + + + + + | Performing | Address | City/State/Zipcode | Phone Number | | Organization | | | | + + + + + | [facility] | [address] | [place] [address] | [phone] | + + + + + XR [...] | Procedure Note | + + | Zca Pierce Results In 09/15/2019 8:58 AM PST [...] | | | performed at [facility] | | LABORATORY | | | | [address];[place], [place] | | | | | | [address] | | | | + + + + + + + + | Specimen | + + | Blood | + + + + + + + | Performing | Address | City/State/Zipcode | Phone Number | | Organization | | | | + + + + + | [facility] | [address] | [place] [address] | [phone] | + + + + + CBC [...] | Absolute | performed at [facility];[address] | K/uL | LABORATORY | | | | [address];[place], [place] | | | | | | [address] | | | | + + + + + + + + | Specimen | + + | Blood | + + + + + + + | Performing | Address | City/State/Zipcode | Phone Number | | Organization | | | | + + + + + | [facility] | [address] | [place] [address] | [phone] | + + + + + Comprehensive [...] (L) | 10 - 65 U/L | [facility] | | | | | | LABORATORY | | + + + + + + | Estimated | >60Comment: GFR <60: | >60 | [facility] | | | GFR | [...] | | | performed at [facility] | | | | | | [facility];[place], [place] | | | | | | [address] | | | | + + + + + + + + | Specimen | + + | Blood | + + + + + + + | Performing | Address | City/State/Zipcode | Phone Number | | Organization | | | | + + + + + | [facility] | [address] | [place] [address] | [phone] | + + + + + Protime INR (09/15/2019 4:03 AM PST) + + + + + + | Component | Value | Ref Range | Performed | Pathologist | | | | | At | Signature | + + + + + + | INR | 1.4Comment: REFERENCE | | [facility] | | | | RANGE:0.9 [...] | | | performed at [facility];[address] | | | | | | [facility];[place], [place] | | | | | | [address] | | | | + + + + + + + + | Specimen | + + | Blood | + + + + + + + | Performing | Address | City/State/Zipcode | Phone Number | | Organization | | | | + + + + + | [facility] | [address] [facility] [facility] | [place] [address] | [phone] | + + + + + Digoxin [...] | level | performed at [facility];[address] | ng/mL | LABORATORY | | | | [address];[place], [place] | | | | | | [address] | | | | + + + + + + + + | Specimen | + + | Blood | + + + + + + + | Performing | Address | City/State/Zipcode | Phone Number | | Organization | | | | + + + + + | [facility] | [address] | [place] [address] | [phone] | + + + + + CBC [...] | Absolute | performed at [facility];[address] | K/uL | LABORATORY | | | | [address];[place], [place] | | | | | | [address] | | | | + + + + + + + + | Specimen | + + | Blood | + + + + + + + | Performing | Address | City/State/Zipcode | Phone Number | | Organization | | | | + + + + + | [facility] | [address] | [place] [address] | [phone] | + + + + + Comprehensive [...] | >60Comment: GFR <60: | >60 | [facility] | | | GFR | [...] | | | | | | MDRD IDDE traceable | | | | | | equation.Testing | | | | | | performed at [facility] | | | | | | [facility];[place], [place] | | | | | | [address] | | | | + + + + + + + + | Specimen | + + | Blood | + + + + + + + | Performing | Address | City/State/Zipcode | Phone Number | | Organization | | | | + + + + + | [facility] | [address] | [place] [address] | [phone] | + + + + + Magnesium (09/14/2019 9:23 AM PST) + + + + + + | Component | Value | Ref Range | Performed | Pathologist | | | | | At | Signature | + + + + + + | Magnesium | 1.6 (L)Comment: Testing | 1.7 - 2.4 mg/dL | [facility] | | | | performed at [facility];[address] | | LABORATORY | | | | [address];[place], [place] | | | | | | [address] | | | | + + + + + + + + | Specimen | + + | Blood | + + + + + + + | Performing | Address | City/State/Zipcode | Phone Number | | Organization | | | | + + + + + | [facility] | [address] | [place] [address] | [phone] | + + + + + ECHO [...] | | | | | | n [place] | | | | | + + [...] | | | performed at [facility] | | | | | | [address];[place], [place] | | | | | | [address] | | | | + + + + + + + + | Specimen | + + | Blood | + + + + + + + | Performing | Address | City/State/Zipcode | Phone Number | | Organization | | | | + + + + + | [facility] | [address] | [place] [address] | [phone] | + + + + + POC [...] | POC | performed at [facility];[address] | | LABORATORY | | | | [address];[place] | | | | | | [address] | | | | + + + + + + + + | Specimen | + + | | + + + + + + + | Performing | Address | City/State/Zipcode | Phone Number | | Organization | | | | + + + + + | [facility] | [address] | [place] [address] | [phone] | + + + + + Sally [...] | | | performed at [facility] | | | | | | [facility];[place], [place] | | | | | | [address] | | | | + + + + + + + + | Specimen | + + | Blood | + + + + + + + | Performing | Address | City/State/Zipcode | Phone Number | | Organization | | | | + + + + + | [facility] | [address] | [place] [address] | [phone] | + + + + + CBC [...] 0.02Comment: Testing | 0.00 - 0.10 | [facility] | | | Absolute | performed at [facility];[address] | K/uL | LABORATORY | | | | [address];[place], [place] | | | | | | [address] | | | | + + + + + + + + | Specimen | + + | Blood | + + + + + + + | Performing | Address | City/State/Zipcode | Phone Number | | Organization | | | | + + + + + | [facility] | [address] | [place] [address] | [phone] | + + + + + Basic [...] | | | performed at [facility] | | | | | | [facility];[place], [place] | | | | | | [address] | | | | + + + + + + + + | Specimen | + + | Blood | + + + + + + + | Performing | Address | City/State/Zipcode | Phone Number | | Organization | | | | + + + + + | [facility] | [address] | [place] [address] | [phone] | + + + + + Troponin I (09/12/2019 5:28 PM PST) + + + + + + | Component | Value | Ref Range | Performed | Pathologist | | | | | At | Signature | + + + + + + | Troponin I | 0.167 (H)Comment: 0.04 | 0.00 - 0.04 | [facility] | | | | ng/mL [...] | | | | | [facility];[address] [place] [address] | | | | | | Blvd;[place] [address] | | | | + + + + + + + + | Specimen | + + | Blood | + + + + + + + | Performing | Address | City/State/Zipcode | Phone Number | | Organization | | | | + + + + + | [facility] | [address] | [place] [address] | [phone] | + + + + + Protime INR (09/12/2019 4:27 PM PST) + + + + + + | Component | Value | Ref Range | Performed | Pathologist | | | | | At | Signature | + + + + + + | INR | 1.2Comment: REFERENCE | | [facility] | | | | RANGE:0.9 [...] | | | performed at [facility];[address] | | | | | | [address] [facility];[place] | | | | | | [address] | | | | + + + + + + + + | Specimen | + + | Blood | + + + + + + + | Performing | Address | City/State/Zipcode | Phone Number | | Organization | | | | + + + + + | [facility] | [address] | [place] [address] | [phone] | + + + + + Troponin I (09/12/2019 11:25 AM PST) + + + + + + | Component | Value | Ref Range | Performed | Pathologist | | | | | At | Signature | + + + + + + | Troponin I | 0.136 (H)Comment: 0.04 | 0.00 - 0.04 | [facility] | | | | ng/mL [...] | | | | | [facility];[address] | | | | | | [address];[place] [address] | | | | + + + + + + + + | Specimen | + + | Blood | + + + + + + + | Performing | Address | City/State/Zipcode | Phone Number | | Organization | | | | + + + + + | [facility] | [address] | [place] [address] | [phone] | + + + + + ECG [...] | Absolute | performed at [facility];[address] | K/uL | LABORATORY | | | | [address];[place] | | | | | | [address] | | | | + + + + + + + + | Specimen | + + | Blood | + + + + + + + | Performing | Address | City/State/Zipcode | Phone Number | | Organization | | | | + + + + + | [facility] | [address] | [place] [address] | [phone] | + + + + + Basic [...] 8.2 (L) | 8.5 - 10.5 | [facility] | | | | | mg/dL | LABORATORY | | + + + + + + | Estimated | >60Comment: GFR <60: | >60 | [facility] | | | GFR | [...] | | | performed at [facility] | | | | | | [facility];[place], [place] | | | | | | [address] | | | | + + + + + + + + | Specimen | + + | Blood | + + + + + + + | Performing | Address | City/State/Zipcode | Phone Number | | Organization | | | | + + + + + | [facility] | [address] | [place] [address] | [phone] | + + + + + Protime INR (09/11/2019 2:35 PM PST) + + + + + + | Component | Value | Ref Range | Performed | Pathologist | | | | | At | Signature | + + + + + + | INR | 1.2Comment: REFERENCE | | [facility] | | | | RANGE:0.9 [...] | | | performed at [facility];[address] | | | | | | [address] [facility];[place], [place] | | | | | | [address] | | | | + + + + + + + + | Specimen | + + | Blood | + + + + + + + | Performing | Address | City/State/Zipcode | Phone Number | | Organization | | | | + + + + + | [facility] | [address] | [place] [address] | [phone] | + + + + + IR Angiogram Lower Extremity Left (09/11/2019 11:36 AM PST) + + | Specimen | + + | | + + + + ---+ | Narrative | Performed A t | + + ---+ | [place] | [facility] | | [facility] & [facility] OPERATIVE [...] iliac artery. Using | | | a [place] a endarterectomy was performed of the common [...] | | | advanced and a 8 Ethiopian 23 cm Sheath was placed. A an [...] introduced a | | | 3 mm [place] angioplasty balloon and dilated the common and [...] with a 10 mm | | | [place] and the external iliac post dilated with an 8 mm [place]. | | | Repeat contrast injection showed [...] signal in the profunda femoris, SFA, and MANAGER OF ADMINISTRATION. The left groin wound | | | [...] signal in the profunda femoris, SFA, and MANAGER OF ADMINISTRATION. The left | | |groin wound was [...] + + | Performing | Address | City/State[facility] | Phone Number | | Organization [...] with homogeneous cut surfaces. | | | Inspector Repairer Sandstone sections of the lymph node are submitted [...] surfaces are laminated | | | herrera-yellow. Inspector Repairer Sandstone sections are submitted in cassette A1 | [...] component was performed | | | by [employer], [address] [place] [address] (Medical | | | Director: Radha Morse MD; CLIA# [id number]). Professional | | | interpretation was performed by[employer], [facility] | | | [address] [address] (Medical | | | Director: Prasanth Suggs M.D.; CLIA#: [id number]). Diagnostician: | | | Radha ALLENathologistElectronically Signed 09/14/2019 | | |question about this report, please contact Client Services. | | | | | |PERFORMING LABORATORY: | | |The technical component was performed by [employer], [address] [place] [address] (Music Teacher: Radha Morse MD; CLIA# [id number]). Professional interpretation was performed by | | |[employer] [address] (Music Teacher: Prasanth Suggs M.D.; CLIA#: [id number]). | | | | | |Diagnostician: Radha [...] | INR | 1.2Comment: REFERENCE | | [facility] | | | | RANGE:0.9 [...] | | | performed at [facility];[address] | | | | | | [facility];[place] | | | | | | [address] | | | | + + + + + + + + | Specimen | + + | Blood | + + + + + + + | Performing | Address | City/State/Zipcode | Phone Number | | Organization | | | | + + + + + | [facility] | [address] | [place] [address] | [phone] | + + + + + documented [...]
--- OUTSIDE RECORDS SUMMARY | ~2019-11-20 | XMS | Encounter Summary ---
Demographics + + + | Address | [address] | | | [place] [address] | + + + | Home Phone [...] + | Organization | [facility] | | | and Eduardana [...] [place] | | | | | [address] | | + + + + + Care Team Providers + +------+ + | Care Screw Eye Assembler Name | Role | Phone | + [...] | | | MD Valente | [address] | | | | | Interstitial | [address] | [place], | | | | | lung | [place] | [place] [address] | | | | | disease | [place], | Phone: | | | | | (HCC) | [place] [address] | [phone] | | | | | Procedures | Phone: | Fax: | | | | | CT Chest wo | [phone] | [phone] | | | | | Contrast | Fax: | | | | | | | [phone] | | +--------+--------+ + + + + [...] | | PNEUMONIA | [address] | [place] [address] | | | | | VS CANCER VS | [place], | Phone: | | | | | CHRONIC | [place] [address] | [phone] | | | | | INTERSTITIAL | Phone: | Fax: | | | | | LUNG | [phone] | [phone] | | | | | DISEASE. | Fax: | | | | | | Procedures | [phone] | | | | | | NEW PT | | | | | | | CONSULT | | | +--------+--------+ + + + + Encounter Details +--------+---------+ + + + | Date | Type | Department | Care Team | Description | +--------+---------+ + + + | 02/28/ | Office | [facility] | Valente Silvestre, | Interstitial lung | | 2018 | Visit | PULMONARY [address] | MD [address] | disease (HCC) | | | | [place], | [place] | (Primary Dx) | | | | [place] [address] | [address] | | | | | [phone] | | | +--------+---------+ + + + [...] pulmonary rehabilitation. They have not completed pul [facility] rehabilitation in the past. 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 PVD (peripheral vascular disease) ([facility]) 02/06/2018 Urinary retention Past Surgical History: Past Surgical History: Procedure Laterality Date CAROTID ENDARTERECTOMY Right CATARACT REMOVAL WITH IMPLANT Bilateral 03/30/10 and 04/27/10 CORONARY ANGIOPLASTY without stent [facility] Approx [id number] FEMUR FRACTURE SURGERY Right 12/19/2016 Procedure: ORIF IM RODDING FEMORAL ANTEGRADE; Surgeon: Lambert Mancuso MD; Location: [facility] MAIN OR FEMUR FRACTURE SURGERY Left 12/19/2016 Procedure: ORIF IM RODDING FEMORAL TROCHANTERIC NAIL; Surgeon: Lambert Mancuso MD; Locati on: [facility] MA[facility] OR Heart/ Arrhythmia ablation Right femoral to below knee popliteal reverse saphenus vein graft 12/01/2013 Right common femoral endarterectomy with Vascu-Guard patch angioplasty, Right external mk ac stent angioplasty 7x29 mm, Angiography, Harvesting right greater saphenous vein, Dual - l umen on Q pain pump placement. [facility] - Dr. Delaney Right thigh biopsy 10/24/2011 nonspecific chronic dermatitis Ultrasound guided access, right common femoral artery 11/30/2013 Right iliac angiography, Right femoral angiography with runoff. [facility] - Dr. Delaney Family History: Family History [...] | | | | | [place] | | | | | | [id number] | | | | | | | [...]
--- OUTSIDE RECORDS SUMMARY | ~2019-11-20 | XMS | Encounter Summary ---
Demographics + + + | Address | [address] | | | [place] [address] | + + + | Home Phone | | + + + | Preferred Language | Unknown | + + + | Marital Status | | + + + | Jainism Affiliation | Unknown | + + + | Race | Unknown | + + + | Ethnic Group | Unknown | + + + Author + + + | Author | [facility] | | | and Eduardana | + + + | Organization | [facility] [...] [place] | | | | | [address] | | + + + + + Care Team Providers + +------+ + | Care Brush Trimming Machine Setter Name | Role | Phone | [...] 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Michael I, | [address] | | | | | carotid | [place] | [place], | | | | | artery, | [address] | [place] [address] | | | | | unspecified | [place] | Phone: | | | | | laterality | [place], [place] | [phone] | | | | | Procedures | [address] | Fax: | | | | | CT Angiogram | Phone: | [phone] | | | | | Neck w | [phone] | | | | | | Contrast | Fax: | | | | | | | [phone] | | +--------+--------+ + + + + Encounter Details +--------+ + + + + | Date | Type | Department | Care Team | Description | +--------+ + + + + | 12/25/ | Hospital | [facility] | Michael Alston | Stenosis of carotid | | 2019 | Encounter | [address] | MD Howell [address] | artery, unspecified | | | | [place], | [address] [place] | laterality | | | | [place] [address] | [place] [address] | | | | | [phone] | [phone] | | | | | | | [...] | triamcinolone | | | 0 | 10/06/ | | | (KENALOG) 0.1% cream | [...] [place] | | | | | | [address] | | | | | | | [...] | | | | | | Starting [facility] 12/25/18 at 1040, For | | | | | | | 1 dose, Radiology | | | | | | + +------+ +---------+-------+---+ +---+---+ | | | +---+---+ documented in this encounter"
--- OUTSIDE RECORDS SUMMARY | ~2019-11-20 | XMS | Encounter Summary ---
Demographics + + + | Address | [address] | | | [place] [address] | + + + | Home Phone | | + + + | Preferred Language | Unknown | + + + | Marital Status | | + + + | Mandaen Affiliation | Unknown | + + + | Race | Unknown | + + + | Ethnic Group | Unknown | + + + Author + + + | Author | [facility] | | | and Eduardana | + + + | Organization | [facility] | | | and Eduardana [...] [place] | | | | | [address] | | + + + + + Care Team Providers + +------+ + | Care Spray Drier Operator Name | Role | Phone | [...] 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Michael I, | [address] [place] | | | | | carotid | [address] | [place], | | | | | artery, | [address] | [place] [address] | | | | | unspecified | [place] | Phone: | | | | | laterality | [place], [place] | [phone] | | | | | Procedures | [address] | Fax: | | | | | CT Angiogram | Phone: | [phone] | | | | | Neck w | [phone] | | | | | | Contrast | Fax: | | | | | | | [phone] | | +--------+--------+ + + + + Encounter Details +--------+ + + + + | Date | Type | Department | Care Team | Description | +--------+ + + + + | 12/25/ | Hospital | [facility] | Michael Alston | Stenosis of carotid | | 2019 | Encounter | MED [address] | MD Howell [address] | artery, unspecified | | | | [place], | [address] [place] | laterality | | | | [place] [address] | [place] [address] | | | | | [phone] | [phone] | | | | | | | [...] [place] | | | | | | [address] | | | | | | | [...] | | | | | | Starting [facility] 12/25/18 at 1040, For | | | | | | | 1 dose, Radiology | | | | | | + +------+ +---------+-------+---+ +---+---+ | | | +---+---+ documented in this encounter"
--- OUTSIDE RECORDS SUMMARY | ~2019-11-20 | XMS | Encounter Summary ---
Demographics + + + | Address | [address] | | | [place] [address] | + + + | Home Phone | | + + + | Preferred Language | Unknown | + + + | Marital Status | | + + + | Yazidi Affiliation | Unknown | + + + | Race | Unknown | + + + | Ethnic Group | Unknown | + + + Author + + + | Author | [facility] | | | and Eduardana | + + + | Organization | [facility] | | | and [...] [place] | | | | | [address] | | + + + + + Care Team Providers + +------+ + | Care Chemical Weigher Name | Role | Phone | [...] AN[employer]ADE | | | | [address] | [place] | | | | | [place] | [address] | | | | | [address] | [phone] | | | | | [phone] | | | +--------+---------+ + + + [...] (COLACE) capsule 100 mg 2 TIMES DAILY SD N LAW BRUSH Signed and Held Signed [...] signed by: Radha Hoyt MD, 12/31/2016 15:39 [facility] documented in this enc ounter Medications at [...] Hawthorne MD - 12/20 11:40 AM PDT [facility] HOSPITALIST PROGRESS NOTE Patient: Dora Thomason : 1930: Age: 86 y.o. MedRec: [id number] PCP: Carlos Alberto Galeas MD Admission date: [...] reorientation *Anticipate discharge to inpatient rehab versus usp facility tomorrow. DVT Prophylaxis SCD's while in bed Code Status DNR/DNI. Total time of approximately 35 minutes was spent with the patient and/or patient's family, and/or on the patient's floor/unit, of which more than 50% was spent counseling and/or coord ination the patient's care as outlined above. Radha Hoyt 12/30/2016 11:41 [facility] Radha Hawthorne MD - 12/29/2016 4:14 PM PDTFormatting of this note might be di fferent from the original. [facility] HOSPITALIST PROGRESS NOTE Patient: Dora Thomason : 1930: Age: 86 y.o. MedRec: [id number] PCP: Carlos Alberto Galeas MD Admission date: [...] as outlined above. Radha Hoyt 12/29/2016 16:14 [facility] Valeria Bush RN - 12/28/2016 6:20 PM [...] might be different from t pepe original. [facility] HOSPITALIST PROGRESS NOTE Patient: oDra Thomason : 1930: Age: 86 y.o. MedRec: [id number] PCP: Carlos Alberto Galeas MD Admission date: [...] Crossmatch Result Value Ref Range Product Code T9578C28 UNIT # [id number] UNIT ABO O UNIT RH POS CROSSMATCH INTERP Compatible Unit Status Returned Blood Product ABORh OPOS Blood Product Expiration Date and Time Product Blood Type Barcode 5100 Product Code H3379Y93 UNIT # [id number] UNIT ABO O UNIT RH POS CROSSMATCH [...] as outlined above. Radha Hoyt 12/28/2016 15:06 [facility] Radha Hawthorne MD - 12/27/2016 4:44 PM PDTFormatting of this note might be di fferent from the original. [facility] HOSPITALIST PROGRESS NOTE Patient: Dora Thomason : 1930: Age: 86 y.o. MedRec: [id number] PCP: Carlos Alberto Galeas MD Admission date: [...] as outlined above. 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 Warfarin education received No; PRESSER ALL AROUND Will monitor daily Warfarin Dosing Nomogram Warfarin Dosing Expectations Per P&T-approved Electronically signed by: Ora Aranda [facility] 12/27/2016 6:49 adha Hoyt MD - 12/26/2016 1:46 PM PDT [facility] HOSPITALIST PROGRESS NOTE Patient: Dora Thomason : 1930: Age: 86 y.o. MedRec: [id number] PCP: Carlos Alberto Galeas MD Admission date: [...] Plasma Result Value Ref Range Product Code E7154P82 UNIT # [id number] UNIT ABO O UNIT RH POS Unit Status Transfused Blood Product ABORh OPOS Blood Product Expiration Date and Time Product Blood Type Barcode 5100 Product Code U7390W67 UNIT # [id number] UNIT ABO O UNIT RH POS Unit [...] as outlined above. 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 Patient [...] Hct in am. Warfarin education received No; PRESSER ALL AROUND Will monitor daily Warfarin Dosing Nomogram Warfarin [...] note might be different from the original. [facility] HOSPITALIST PROGRESS NOTE Patient: Dora Thomason : 1930: Age: 86 y.o. MedRec: [id number] PCP: Carlos Alberto Galeas MD Admission date: [...] Crossmatch Result Value Ref Range Product Code I2013Q89 UNIT # [id number] UNIT ABO O UNIT RH POS CROSSMATCH INTERP Compatible Unit Status Crossmatched Blood Product ABORh OPOS Blood Product Expiration Date and Time Product Blood Type Barcode 5100 Product Code A0432I35 UNIT # [id number] UNIT ABO O UNIT RH POS CROSSMATCH INTERP Compatible Unit Status Transfused Blood Product ABOR OPOS Blood Product Expiration Date and Time Product Blood Type Barcode 5100 Red Blood Cells (PRBC) - Crossmatch Result Value Ref Range Product Code L7117Q54 UNIT # [id number] UNIT ABO O UNIT RH NEG CROSSMATCH INTERP Compatible Unit Status Transfused Blood Product Dominic LUQUE Blood Product Expiration Date and Time [id number] Product Blood Type Barcode 9500 Basic Metabolic [...] Plasma Result Value Ref Range Product Code B8141X97 UNIT # [id number] UNIT ABO O UNIT RH POS Unit Status Issued Blood Product ABORh OPOS Blood Product Expiration Date and Time Product Blood Type Barcode 5100 Product Code O5012G61 UNIT # [id number] UNIT ABO O UNIT RH POS Unit [...] as outlined above. Radha Hoyt 12/25/2016 16:56 [facility] Lambert Smith MD - 0 12/25/2016 10:32 [...] Crossmatch Result Value Ref Range Product Code V1815F48 UNIT # [id number] UNIT ABO O UNIT RH POS CROSSMATCH INTERP Compatible Unit Status Crossmatched Blood Product [facility] Blood Product Expiration Date and Time Product Blood Type Barcode 5100 Product Code X9794F20 UNIT # [id number] UNIT ABO O UNIT RH POS CROSSMATCH INTERP Compatible Unit Status Transfused Blood Product [facility] Blood Product Expiration Date and Time Product Blood Type Barcode 5100 Red Blood Cells (PRBC) - Crossmatch Result Value Ref Range Product Code V9579X16 UNIT # [id number] UNIT ABO O UNIT RH NEG CROSSMATCH INTERP Compatible Unit Status Transfused Blood Product [facility] Blood Product Expiration Date and Time [...] a past medical history of Atrial flutter ([facility]) ( 7); CVA (cerebral vascular accident) ([facility]) 2012 (2012); 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 Patient is receiving warfarin for thromboprophyla xis postop and also for atrial flutter. Surgery date: 12/19/[address] Macnuso Goal INR: 2-3 Enoxaparin bridge: disch Inr>2 [...] it to MWF. Warfarin education received No; PRESSER ALL AROUND Will monitor daily Warfarin Dosing Nomogram Warfarin [...] PH UA 5.0 5.0 - 8.0 Specific [place] 1.016 1.001 - 1.030 PROTEIN UA 30 mg/dL (A) Negative BLOOD UA Small (A) Negative GLUCOSE UA Negative Negative KETONES UA Negative Negative BILIRUBIN UA Negative Negative NITRITE UA Negative Negative LEUKOCYTES ESTERASE UA Negative Negative UROBILINOGEN UA Negative 0.2 mg/dL, 1.0 mg/dL, Negative Red Blood Cells (PRBC) - Crossmatch Result Value Ref Range Product Code G3419Q33 UNIT # [id number] UNIT ABO O UNIT RH POS CROSSMATCH INTERP Compatible Unit Status Crossmatched Blood Product ABOR OPOS Blood Product Expiration Date and Time Product Blood Type Barcode 5100 Product Code E5125I75 UNIT # [id number] UNIT ABO O UNIT RH POS CROSSMATCH INTERP Compatible Unit Status Issued Blood Product ABOR OPOS Blood Product Expiration Date and Time Product Blood Type Barcode 5100 Red Blood Cells (PRBC) - Crossmatch Result Value Ref Range Product Code B4606D17 UNIT # [id number] UNIT ABO O UNIT RH NEG CROSSMATCH [...] note might be different from the original. [facility] HOSPITALIST PROGRESS NOTE Patient: Dora Thomason : 1930: Age: 86 y.o. MedRec: [id number] PCP: Carlos Alberto Galeas MD Admission date: [...] Crossmatch Result Value Ref Range Product Code C9067I18 UNIT # [id number] UNIT ABO O UNIT RH POS CROSSMATCH INTERP Compatible Unit Status Crossmatched Blood Product ABORh OPOS Blood Product Expiration Date and Time Product Blood Type Barcode 5100 Product Code O0718N31 UNIT # [id number] UNIT ABO O UNIT RH POS CROSSMATCH [...] as outlined above. Angel Hendrix 12/24/2016 9:52 [facility] Ora Medina PharmD - 12/24/2016 6:57 AM PDT WARFARIN PER PHARMACY PROTOCOL: Subjective/Objective: Dora Thomason is a 86 y.o. male admitted on 12/18/2016 for orthopedic surgery secondar y to femoral fracture. 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 Patient [...] it to MWF. Warfarin education received No; PRESSER ALL AROUND Will monitor daily Warfarin Dosing Nomogram Warfarin [...] Crossmatch Result Value Ref Range Product Code L4619Y29 UNIT # [id number] UNIT ABO O UNIT RH POS CROSSMATCH INTERP Compatible Unit Status Transfused Blood Product ABOR OPOS Blood Product Expiration Date and Time Product Blood Type Barcode 5100 Product Code J1694Q00 UNIT # [id number] UNIT ABO O UNIT RH POS CROSSMATCH [...] Angel - 0 12/23/2016 9:04 AM PDT [facility] HOSPITALIST PROGRESS NOTE Patient: Dora Thomason : 1930: Age: 86 y.o. MedRec: [id number] PCP: Carlos Alberto Galeas MD Admission date: [...] Crossmatch Result Value Ref Range Product Code R9061I51 UNIT # [id number] UNIT ABO O UNIT RH POS CROSSMATCH INTERP Compatible Unit Status Transfused Blood Product ABORh OPOS Blood Product Expiration Date and Time Product Blood Type Barcode 5100 Product Code V9527U64 UNIT # [id number] UNIT ABO O UNIT RH POS CROSSMATCH [...] as outlined above. 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 Patient [...] it to MWF. Warfarin education received No; PRESSER ALL AROUND Will monitor daily Warfarin Dosing Nomogram Warfarin [...] Crossmatch Result Value Ref Range Product Code J5113X74 UNIT # [id number] UNIT ABO O UNIT RH POS CROSSMATCH INTERP Compatible Unit Status Transfused Blood Product ABORh OPOS Blood Product Expiration Date and Time Product Blood Type Barcode 5100 Product Code X4578Q24 UNIT # [id number] UNIT ABO O UNIT RH POS CROSSMATCH [...] amin MD - 12/22/2016 9:39 AM PDT [facility] HOSPITALIST PROGRESS NOTE Patient: Dora Thomason : 1930: Age: 86 y.o. MedRec: [id number] PCP: Carlos Alberto Galeas MD Admission date: [...] as outlined above. 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 Patient [...] Hct in am Warfarin education received No; PRESSER ALL AROUND Will monitor daily Warfarin Dosing Nomogram Warfarin [...] Thomason : 1930: Age: 86 y.o. MedRec: [id number] PCP: Carlos Alberto Galeas MD Admission date: [...] Crossmatch Result Value Ref Range Product Code Y1735N93 UNIT # [id number] UNIT ABO O UNIT RH POS CROSSMATCH INTERP Compatible Unit Status Transfused Blood Product ABOR OPOS Blood Product Expiration Date and Time Product Blood Type Barcode 5100 Product Code C5966R00 UNIT # [id number] UNIT ABO O UNIT RH POS CROSSMATCH [...] as outlined above. Angel Hendrix 12/21/2016 9:35 [facility] adha Doherty, PharmD - 12/21/2016 8:55 AM PDT WARFARIN PER PHARMACY PROTOCOL: Subjective/Objective: Dora Thomason is a 86 y.o. male admitted on 12/18/2016 for orthopedic surgery secondar y to femoral fracture. 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 Patient [...] Hct in am Warfarin education received No; PRESSER ALL AROUND Will monitor daily Warfarin Dosing Nomogram Warfarin [...] Crossmatch Result Value Ref Range Product Code T1773Y65 UNIT # [id number] UNIT ABO O UNIT RH POS CROSSMATCH INTERP Compatible Unit Status Transfused Blood Product [facility] Blood Product Expiration Date and Time Product Blood Type Barcode 5100 Product Code R9391E88 UNIT # [id number] UNIT ABO O UNIT RH POS CROSSMATCH INTERP Compatible Unit Status Crossmatched Blood Product [facility] Blood Product Expiration Date and Time [...] name, strength, and directions X Doctor's office: [facility] Medicine X Care Everywhere Vaccines up to [...] performed and electronically signed by Don Siu, Director Of Psychology 12/20/2016 19:03 Jordan Ball, PharmOzzie 12/20/2016 19:16 [...] (HCC) 2012 (2013); 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 Patient [...] Hct in am Warfarin education received No; PRESSER ALL AROUND Will monitor daily Warfarin Dosing Nomogram Warfarin Dosing Expectations Per P&T-approved Joao Holcomb, FeliD 12/20/2016 12:21 SamuelteAngel moncada MD - 12/20/2016 10:16 AM PDT [facility] HOSPITALIST PROGRESS NOTE Patient: Dora Thomason : 1930: Age: 86 y.o. MedRec: [id number] PCP: Carlos Alberto Galeas MD Admission date: [...] Crossmatch Result Value Ref Range Product Code S9702U24 UNIT # [id number] UNIT ABO O UNIT RH POS CROSSMATCH INTERP Compatible Unit Status Crossmatched Blood Product ABORh OPOS Blood Product Expiration Date and Time Product Blood Type Barcode 5100 Product Code E2438N61 UNIT # [id number] UNIT ABO O UNIT RH POS CROSSMATCH INTERP Compatible Unit Status Crossmatched Blood Product [facility] OPOS Blood Product Expiration Date and [...] Plasma Result Value Ref Range Product Code N1479R11 UNIT # [id number] UNIT ABO O UNIT RH POS Unit Status Transfused Blood Product [facility] Blood Product Expiration Date and Time Product Blood Type Barcode 5100 Product Code J8675E98 UNIT # [id number] UNIT ABO O UNIT RH POS Unit Status Transfused Blood Product [facility] Blood Product Expiration Date and Time Product Blood Type Barcode 5100 Product Code Y1175Z00 UNIT # [id number] UNIT ABO O UNIT RH POS Unit Status Transfused Blood Product ABORh OPOS Blood Product Expiration Date and Time [id number] Product Blood Type Barcode 5100 Product Code L0976Y10 UNIT # [id number] UNIT ABO O UNIT RH POS Unit Status Crossmatched Blood Product AB[facility]h OPOS Blood Product Expiration Date and Time [id number] Product Blood Type Barcode 5100 Xr Chest Pa Or Ap Result Date: 12/19/2016 External films for comparison only - no result from [place]. Xr Femur Left 2+vw Result Date: 12/19/2016 [...] for comparison only - no result from [facility]. Xr Femur Right 2+vw Result Date: 12/19/2016 [...] for comparison only - no result from [facility]. Fl C-arm Stats No Charge Result Date: [...] as outlined above. Angel Hendrix 12/20/2016 10:20 [facility] Addendum Right basilar pneumonia. Lambert Smith MD [...] Crossmatch Result Value Ref Range Product Code V7722E51 UNIT # [id number] UNIT ABO O UNIT RH POS CROSSMATCH INTERP Compatible Unit Status Crossmatched Blood Product [facility] OPOS Blood Product Expiration Date and Time Product Blood Type Barcode 5100 Product Code D0198N12 UNIT # [id number] UNIT ABO O UNIT RH POS CROSSMATCH [...] Plasma Result Value Ref Range Product Code L3800Y25 UNIT # [id number] UNIT ABO O UNIT RH POS Unit Status Transfused Blood Product [facility] OPOS Blood Product Expiration Date and Time Product Blood Type Barcode 5100 Product Code U1063Z90 UNIT # [id number] UNIT ABO O UNIT RH POS Unit Status Transfused Blood Product ABOR OPOS Blood Product Expiration Date and Time Product Blood Type Barcode 5100 Product Code Y4728V33 UNIT # [id number] UNIT ABO O UNIT RH POS Unit Status Transfused Blood Product [facility] OPOS Blood Product Expiration Date and Time Product Blood Type Barcode 5100 Product Code X5850M22 UNIT # [id number] UNIT ABO O UNIT RH POS Unit Status Crossmatched Blood Product ABORh OPOS Blood Product Expiration Date and Time [id number] Product Blood Type Barcode 5100 Bilateral lower [...] on warfarin for DVT prophylaxis. Follow HCT. 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 Patient [...] Hct in am Warfarin education received No; PRESSER ALL AROUND Will monitor daily Warfarin Dosing Nomogram Warfarin Dosing Expectations Per P&T-approved Jordan Ball PharmD 12/19/2016 20:53 Cheng Delvalle MD - 12/19/2016 12:23 PM PDTFormatting of this note might be different from the [facility] Patient: Dora Thomason : 1930: Age: 86 y.o. MedRec: [id number] PCP: Carlos Alberto Galeas MD Admission date: [...] m g daily. 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 Olivera at [facility]. He has a walker and a cane, usually uses his cane and lost his balance and fell backwards alycia satish both femurs and was seen in [place] [facility] and sent to [place] after contacted Dr. Pricilla Pop He was noted have multiple skin tears. He denied that he passed out and denied any c hest pain or chest pressure. No headache. No hip pain but both femurs hurt, denied arthri tis. He has an incurable skin condition follows with applier Dr. Anuja Kaminski. He use s what sounds like Kenalog cream. He has a remote history of mycoses fungoides diagnosed in [facility] probably 15 or 20 years ago. [...] ECGs available Confirmed by ALINA DURBIN, ROMERO ([id number]) on 12/19/2016 6:58:41 AM Protime INR Result Value Ref Range Xr Chest Pa Or Ap Result Date: 12/19/2016 External films for comparison only - no result from [facility]. Xr Femur Left 2+vw Result Date: 12/19/2016 External films for comparison only - no result from [facility]. Xr Femur Right 2+vw Result Date: 12/19/2016 External films for comparison only - no result from [facility]. ASSESSMENT and PLAN: Femur fracture, right as [...] as outlined above. Kamran Tom 12/19/2016 12:23 [facility] documented in t his encounter Plan of Treatment +--------+---------+ + + + | Date | Type | Specialty | Care Team | Description | +--------+---------+ + + + | 01/26/ | Office | Cardiology | Paolo Selby, | | | 2020 | Visit | | MD Marjan MARINELLI | | | | | | [place] | | | | | | [address] | | | | | | | [...] | | | Oral Anticoagulation | | [facility] | | | | Range: [...] [address] | [place] | [phone] | | [facility] | | [address] | | | - LABORATORY | | [...] | 1.19 | 0.60 - 1.30 | [facility] | | | | | mg/dL | [facility] | | | | | | MEDICAL | | | | | | CENTER - | | | | | | LABORATORY | | + + + + + + | eGFR if not | 58 (L)Comment: | >=60 | [facility] | | | | GLOMERULAR FILTRATION | mL/min/1.73m2 | [facility] | | | [place] | RATE,ESTIMATED | | MEDICAL | | | | mL/min/1.87n3Znow than | | CENTER - | | [...] ST. | [address] | [place], [place] | [phone] | | [facility] | | [address] | | | - LABORATORY | | [...] [address] | [place] | [phone] | | [facility] | | [address] | | | - LABORATORY | | [...] | | 12/25/2016. Dictated and Signed by: Raplh Kennedy MD | | | Electronically signed: [...] + | [facility] | [address] | [place] | [phone] | | [facility] | | [address] | | | - LABORATORY | | [...] mL/min/1.73m2 | [facility] | | | [place] | RATE,ESTIMATED | | MEDICAL | | | | mL/min/1.15a0Mlvh than | | CENTER - | | [...] ST. | [address] | [place], [place] | [phone] | | [facility] | | [address] | | | - LABORATORY | | [...] [address] | [place] | [phone] | | [facility] | | [address] | | | - LABORATORY | | [...] [address] | [place] | [phone] | | [facility] | | [address] | | | - LABORATORY | | [...] + + | Performing | Address | City/State/[facility] Cent[facility] | Phone Number | | Organization | | | | + + + + + | [facility] | [address] | [place] | [phone] | | [facility] | | [address] | | | - LABORATORY | | [...] (H) | 7 - 18 mg/dL | [facility] | | | | | | [facility] | | | | | | MEDICAL | | | | | | CENTER - | | | | | | LABORATORY | | + + + + + + | Creatinine | 1.23 | 0.60 - 1.30 | [facility] | | | | | mg/dL | [facility] | | | | | | MEDICAL | | | | | | CENTER - | | | | | | LABORATORY | | + + + + + + | eGFR if not | 56 (L)Comment: | >=60 | [facility] | | | | GLOMERULAR FILTRATION | mL/min/1.73m2 | [facility] | | | [place] | RATE,ESTIMATED | | MEDICAL | | | | mL/min/1.99l8Vxzr than | | CENTER - | | [...] [address] | [place] | [phone] | | [facility] | | [address] | | | - LABORATORY | | [...] [facility]. | [address] | [place] | [phone] | | [facility] | | [address] | | | - LABORATORY | | | | + + + + + Red Blood Cells (PRBC) - Crossmatch (12/28/2016 7:41 AM PDT) + + + + + + | Component | Value | Ref Range | Performed | Pathologist | | | | | At | Signature | + + + + + + | Product | [id number] | | [facility] | | | Code | | | [facility] | | | | | | MEDICAL | | | | | | CENTER - | | | | | | BLOOD BANK | | + + + + + + | UNIT # | [id number] | | [facility] | | | | [...] | | INTERP | | | [facility] | | [...] + + + + | Blood | [id number] | | [facility] | | | Product [...] + + + + | Product | [id number] | | [facility] | | | Code | | | [facility] | | | | | | MEDICAL | | | | | | CENTER - | | | | | | BLOOD BANK | | + + + + + + | UNIT # | [id number] | | [facility] | | | | [...] + + + + | Blood | [id number] | | [facility] | | | Product [...] + | [facility] | [address] | [place] | | | [facility] | | [address] | | | - BLOOD BANK | [...] [address] | [place] | [phone] | | [facility] | | [address] | | | - LABORATORY | | [...] + | [facility] | [address] | [place] | [phone] | | [facility] | | [address] | | | - LABORATORY | | [...] mL/min/1.73m2 | [facility] | | | [place] | RATE,ESTIMATED | | MEDICAL | | | | mL/min/1.75q7Cdot than | | CENTER - | | [...] [address] | [place] | [phone] | | [facility] | | [address] | | | - LABORATORY | | [...] | | | | | M/uL | [facility] | | | | [...] + | [facility] | [address] | [place] | [phone] | | [facility] | | [address] | | | - LABORATORY | | [...] [address] | [place] | [phone] | | [facility] | | [address] | | | - LABORATORY | | [...] (H) | 7 - 18 mg/dL | [facility] | | | | | | [facility] | | | | | | MEDICAL | | | | | | CENTER - | | | | | | LABORATORY | | + + + + + + | Creatinine | 1.07 | 0.60 - 1.30 | [facility] | | | | | mg/dL | [facility] | | | | | | MEDICAL | | | | | | CENTER - | | | | | | LABORATORY | | + + + + + + | eGFR if not | >60Comment: GLOMERULAR | >=60 | [facility] | | | | FILTRATION | mL/min/1.73m2 | [facility] | | | [place] | RATE,ESTIMATED | | MEDICAL | | | | mL/min/1.37c2Neuo than | | CENTER - | | [...] + | [facility] | [address] | [place] | [phone] | | [facility] | | [address] | | | - LABORATORY | | [...] + | [facility] | [address] | [place], [place] | [phone] | | [facility] | | [address] | | | - LABORATORY | | [...] 459 | | | DESTINY Patient Number [id number] Date of Study | | | 12/26/2016 Visit Number [id number] Accession | | | [id number] Referring Physician MASONJRMALCOM RADHA Number | | | Date of 1930 Educational Coordinator | | | DERIC BOWMAN, | | | [place] Age 86 year(s) | | | Interpreting MARGARET DUGAN | | | Lidder RITCHIE | | | MARGARET, | | | Gender Male | | | Nurse Stress | | | Quartz Orientator Procedure Type of Study TTE procedure: ECHO [...] Volume: 74.41 ml | | | EF Vdqeymjmt95% Left Ventricle Diastolic | | | Dimension: [...] Volume: 74.41 ml | | | EF Qeelizkis88% | | | | | | Left [...] | | (TTE) Demographics Patient Name [facility] Room Number 459 | | DESTINY Patient Number [id number] Date of Study 12/26/2016 Visit | | Number [id number] Referring Physician CANDELARIO | | RAEF Number Date of 1930 Educational Coordinator DERIC BOWMAN, | | [place] Age 86 year(s) | | Interpreting MARGARET DUGAN Lidder | | RITCHIE ROBLES MD | | [...] LA Volume: 74.41 ml | | EF Zsmqeinhx41% Left Ventricle Diastolic Dimension: 4.12 cm Septum [...] LA Volume: 74.41 ml | | EF Urdbsihns07% | | | | Left Ventricle | [...] [address] | [place] | [phone] | | [facility] | | [address] | | | - LABORATORY | | | | + + + + + PRODUCT: Plasma (12/26/2016 7:15 AM PDT) + + + + + + | Component | Value | Ref Range | Performed | Pathologist | | | | | At | Signature | + + + + + + | Product | [id number] | | [facility] | | | Code | | | [facility] | | | | | | MEDICAL | | | | | | CENTER - | | | | | | BLOOD BANK | | + + + + + + | UNIT # | [id number] | | [facility] | | | | [...] + + + + | Blood | [id number] | | [facility] | | | Product [...] + + + + | Product | [id number] | | [facility] | | | Code | | | [facility] | | | | [facility] | MEDICAL | | | | | | CENTER - | | | | | | BLOOD BANK | | + + + + + + | UNIT # | [id number] | | [facility] | | | | [...] + + + + | Blood | [id number] | | [facility] | | | Product [...] + | [facility] | [address] | [place] | | | [facility] | | [address] | | | - BLOOD BANK | [address] | [place] | [phone] | | [facility] | | [address] | | | - LABORATORY | | [...] 18 | 7 - 18 mg/dL | [facility] | | | | | | [facility] | | | | | | MEDICAL | | | | | | CENTER - | | | | | | LABORATORY | | + + + + + + | Creatinine | 1.17 | 0.60 - 1.30 | [facility] | | | | | mg/dL | [facility] | | | | | | MEDICAL | | | | | | CENTER - | | | | | | LABORATORY | | + + + + + + | eGFR if not | 59 (L)Comment: | >=60 | [facility] | | | | GLOMERULAR FILTRATION | mL/min/1.73m2 | [facility] | | | [place] | RATE,ESTIMATED | | MEDICAL | | | | mL/min/1.22e6Wccq than | | CENTER - | | [...] [address] | [place] | [phone] | | [facility] | | [address] | | | - LABORATORY | | [...] [address] | [place] | [phone] | | [facility] | | [address] | | | - LABORATORY | | [...] + | [facility] [facility] | [address] | [place] | [phone] | | [facility] | | [address] | | | - LABORATORY | | [...] + | [facility] | [address] | [place] | [phone] | | [facility] | | [address] | | | - LABORATORY | | [...] | Time | | seconds | [facility] | | | | | | MEDICAL [...] + | [facility] [facility] | [address] | [place] | [phone] | | [facility] | | [address] | | | - LABORATORY | | [...] [address] | [place] | [phone] | | [facility] | | [address] | | | - LABORATORY | | [...] not | >60Comment: GLOMERULAR | >=60 | [facility] | | | | FILTRATION | mL/min/1.73m2 | [facility] | | | [place] | RATE,ESTIMATED | | MEDICAL | | | | mL/min/1.18t2Qggy than | | CENTER - | | [...] + | [facility] | [address] | [place] | [phone] | | [facility] | | [address] | | | - LABORATORY | | [...] [address] | [place] | [phone] | | [facility] | | [address] | | | - LABORATORY | | | | + + + + + Red Blood Cells (PRBC) - Crossmatch (12/25/2016 1:15 AM PDT) + + + + + + | Component | Value | Ref Range | Performed | Pathologist | | | | | At | Signature | + + + + + + | Product | [id number] | | [facility] | | | Code | | | [facility] | | | | | | MEDICAL | | | | | | CENTER - | | | | | | BLOOD BANK | | + + + + + + | UNIT # | [id number] | | [facility] | | | | [...] + + + + | Blood | [id number] | | [facility] | | | Product [...] St | [place] | | | [facility] | | [address] | | | - BLOOD BANK | [...] + | [facility] | [address] | [place] | [phone] | | [facility] | | [address] | | | - LABORATORY | | [...] - 1.030 | [facility] | | | [place], | | | [facility] | | [...] | + + + + + | [facility] [facility] | [address] | [place] | [phone] | | [facility] | | [address] | | | - LABORATORY | | [...] ST. | [address] | [place], [place] | | | [facility] | | [address] | | | - BLOOD BANK | [...] ST. | [address] | [place], [place] | [phone] | | [facility] | | [address] | | | - LABORATORY | | [...] mL/min/1.73m2 | [facility] | | | [place] | RATE,ESTIMATED | | MEDICAL | | | | mL/min/1.73w1Zdum than | | CENTER - | | [...] [address] | [place] | [phone] | | [facility] | | [address] | | | - LABORATORY | | [...] + + | Performing | Address | City/State/[facility] | Phone Number | | Organization | | | | + + + + + | [facility] | [address] | [place] | [phone] | | [facility] | | [address] | | | - LABORATORY | | [...] + | [facility] | [address] | [place] | [phone] | | [facility] | | [address] | | | - LABORATORY | | [...] | | Oral Anticoagulation | | [facility] | | | | Range: 2.0 [...] [address] | [place] | [phone] | | [facility] | | [address] | | | - LABORATORY | | [...] | | | | | | [facility] | | | | | | MEDICAL [...] + | [facility] | [address] | [place], [place] | [phone] | | [facility] | | [address] | | | - LABORATORY | | [...] mL/min/1.73m2 | [facility] | | | [place] | RATE,ESTIMATED | | MEDICAL | | | | mL/min/1.33q6Wywv than | | CENTER - | | [...] ST. | [address] | [place], [place] | [phone] | | [facility] | | [address] | | | - LABORATORY | | | | + + + + + Red Blood Cells (PRBC) - Crossmatch (12/23/2016 1:15 AM PDT) + + + + + + | Component | Value | Ref Range | Performed | Pathologist | | | | | At | Signature | + + + + + + | Product | [id number] | | [facility] | | | Code | | | [facility] | | | | | | MEDICAL | | | | | | CENTER - | | | | | | BLOOD BANK | | + + + + + + | UNIT # | [id number] | | [facility] | | | | [...] + + + + | Blood | [id number] | | [facility] | | | Product [...] + + + + | Product | [id number] | | [facility] | | | Code | | | [facility] | | | | | | MEDICAL | | | | | | CENTER - | | | | | | BLOOD BANK | | + + + + + + | UNIT # | [id number] | | [facility] | | | | [...] + + + + | Blood | [id number] | | [facility] | | | Product [...] St | [place] | | | [facility] | | [address] | | | - BLOOD BANK | [...] [address] | [place] | [phone] | | [facility] | | [address] | | | - LABORATORY | | [...] mL/min/1.73m2 | [facility] | | | [place] | RATE,ESTIMATED | | MEDICAL | | | | mL/min/1.37y7Bklq than | | CENTER - | | [...] [address] | [place] | [phone] | | [facility] | | [address] | | | - LABORATORY | | [...] [address] | [place] | [phone] | | [facility] | | [address] | | | - LABORATORY | | [...] | Basophils | | K/uL | [facility] | | | | | | [...] [address] | [place] | [phone] | | [facility] | | [address] | | | - LABORATORY | | [...] + | [facility] | [address] | [place] | [phone] | | [facility] | | [address] | | | - LABORATORY | | [...] mL/min/1.73m2 | [facility] | | | [place] | RATE,ESTIMATED | | MEDICAL | | | | mL/min/1.31c7Uths than | | CENTER - | | [...] ST. | [address] | [place], [place] | [phone] | | [facility] | | [address] | | | - LABORATORY | | [...] + | [facility] | [address] | [place] | [phone] | | [facility] | | [address] | | | - LABORATORY | | [...] [address] | [place] | [phone] | | [facility] | | [address] | | | - LABORATORY | | [...] ST. | [address] | [place] | [phone] | | [facility] | | [address] | | | - LABORATORY | | [...] [address] | [place] | [phone] | | [facility] | | [address] | | | - LABORATORY | | [...] [address] | [place] | [phone] | | [facility] | | [address] | | | - LABORATORY | | [...] + | [facility] | [address] | [place], [place] | [phone] | | [facility] | | [address] | | | - LABORATORY | | [...] [address] | [place] | [phone] | | [facility] | | [address] | | | - LABORATORY | | [...] [address] | [place] | [phone] | | [facility] | | [address] | | | - LABORATORY | | [...] + | [facility] | [address] | [place] | [phone] | | [facility] | | [address] | | | - LABORATORY | | | | + + + + + PRODUCT: Plasma (12/20/2016 7:15 AM PDT) + + + + + + | Component | Value | Ref Range | Performed | Pathologist | | | | | At | Signature | + + + + + + | Product | [id number] | | [facility] | | | Code | | | [facility] | | | | | | MEDICAL | | | | | | CENTER - | | | | | | BLOOD BANK | | + + + + + + | UNIT # | [id number] | | [facility] | | | | [...] + + + + | Blood | [id number] | | [facility] | | | Product [...] + + + + | Product | [id number] | | [facility] | | | Code | | | [facility] | | | | | | MEDICAL | | | | | | CENTER - | | | | | | BLOOD BANK | | + + + + + + | UNIT # | [id number] | | [facility] | | | | [...] + + + + | Blood | [id number] | | [facility] | | | Product [...] + + + + | Product | [id number] | | [facility] | | | Code | | | [facility] | | | | | | MEDICAL | | | | | | CENTER - | | | | | | BLOOD BANK | | + + + + + + | UNIT # | [id number] | | [facility] | | | | [...] + + + + | Blood | [id number] | | [facility] | | | Product [...] + + + + | Product | [id number] | | [facility] | | | Code | | | [facility] | | | | | | MEDICAL | | | | | | CENTER - | | | | | | BLOOD BANK | | + + + + + + | UNIT # | [id number] | | [facility] | | | | [...] + + + + | Blood | [id number] | | [facility] | | | Product [...] St | [place] | | | [facility] | | [address] | | | - BLOOD BANK | [...] [address] | [place] | [phone] | | [facility] | | [address] | | | - LABORATORY | | [...] [address] | [place] | [phone] | | [facility] | | [address] | | | - LABORATORY | | [...] mL/min/1.73m2 | [facility] | | | [place] | RATE,ESTIMATED | | MEDICAL | | | | mL/min/1.31q0Sdjl than | | CENTER - | | [...] [address] | [place] | [phone] | | [facility] | | [address] | | | - LABORATORY | | [...] + | [facility] [facility] | [address] | [place] | [phone] | | [facility] | | [address] | | | - LABORATORY | | [...] + + | Performing | Address | City/State/[facility] | Phone Number | | [...] | | + +---------+ + + Sally BENNETT (12/19/2016 3:06 PM PDT) + + + [...] ST. | [address] | [place], [place] | [phone] | | [facility] | | [address] | | | - LABORATORY | | [...] + | [facility] | [address] | [place] | [phone] | | [facility] | | [address] | | | - LABORATORY | | [...] | mL/min/1.73m2 | [facility] | | | [place] | RATE,ESTIMATED | | MEDICAL | | | | mL/min/1.44w9Qpas than | | CENTER - | | [...] [address] | [place] | [phone] | | [facility] | | [address] | | | - LABORATORY | | [...] [address] | [place] | [phone] | | [facility] | | [address] | | | - LABORATORY | | [...] St | [place] | | | [facility] | | [address] | | | - BLOOD BANK | [...] + | [facility] [facility] | [address] | [place] | [phone] | | [facility] | | [address] | | | - LABORATORY | | [...] | | | | ROMERO FULLER MD ([id number]) | | | | | | on [...] for comparison only - no result from [facility]. | [facility] | + + + [...] for comparison only - no result from [facility]. | [facility] | + + + [...] for comparison only - no result from [facility]. | [facility] | + + + [...] | | | | | dose on [facility] 12/27/16 at 1015 | | | | [...]
--- OUTSIDE RECORDS SUMMARY | ~2019-11-20 | XMS | Encounter Summary ---
Demographics + + + | Address | [address] | | | [place] [address] | + + + | Home Phone [...] + | Organization | [facility] | | | and Eduardana [...] [place] | | | | | [address] | | + + + + + Care Team Providers + +------+ + | Care Dentistry Teacher Name | Role | Phone | + +------+ + | Carlos Alberto Galeas MD | PCP | | + +------+ + Encounter Details +--------+ + + + + | Date | Type | Department | Care Team | Description | +--------+ + + + + | 12/06/ | Hospital | [facility] | Max Delaney | Bilateral carotid | | 2017 | Encounter | [facility] | MD Sara [address] | artery stenosis | | | | [address] | [address] | | | | | [place], [place] | [place] [address] | | | | | [address] | [phone] | | | | | [phone] | | | | | | | [...] | | | | | [facility] [place] | | | | | | [address] | | | | | | | [...]
[~2019-11-20 08:58] MED LIST changes: +COLACE100 MG PO
== END 2019-11-20 10:50 | disposition home or self-care (01) ==
LOC: ED 08:58
DX: S51.811A Laceration without foreign body of right forearm, initial encounter (principal); S00.81XA Abrasion of other part of head, initial encounter; Z88.0 Allergy status to penicillin; Z88.8 Allergy status to other drugs, medicaments and biological substances; Z79.899 Other long term (current) drug therapy; W18.30XA Fall on same level, unspecified, initial encounter
CPT/HCPCS: 99283

== ENCOUNTER 2020-02-23 15:06 | Emergency (ER) | payer MEDICARE ==
[~2020-02-23] VITALS: Ht 175.3 cm; Wt 78.2 kg
--- OUTSIDE RECORDS SUMMARY | ~2020-02-23 | XMS | Encounter Summary ---
Demographics + + + | Address | [address] | | | [place] [address] | + + + | Home Phone | | + + + | Preferred Language | Unknown | + + + | Marital Status | | + + + | Lutheran Affiliation | Unknown | + + + | Race | Unknown | + + + | Ethnic Group | Unknown | + + + Author + + + | Author | [facility] | | | and [place] | + + + | Organization | [facility] | | | and [place] | + + + | Address | Unknown | + + + | Phone | Unavailable | + + + Support + + + + + | Name | Relationship | Address | Phone | + + + + + | Rivkaarnulfo Thomason | ECON | | | | | | [place] | | | | | [address] | | + + + + + Care Team Providers + +------+ + | Care Supervisor Core Shop Name | Role | Phone | + +------+ + | Carlos Alberto Galeas MD | PCP | | + +------+ + Reason for Referral Diagnostic/Screening (Routine) +--------+--------+ + + + + | Status | Reason | Specialty | Diagnoses / | Referred By | Referred To | | | | | Procedures | Contact | Contact | +--------+--------+ + + + + | Closed | | Radiology | Diagnoses | [place], | [address] | | | | | | MD Valente | [address] | | | | | Interstitial | [address] | [place], | | | | | lung | [place] | [place] [address] | | | | | disease | [place], | Phone: | | | | | (HCC) | [place] [address] | [phone] | | | | | Procedures | Phone: | Fax: | | | | | CT Chest wo | [phone] | [phone] | | | | | Contrast | Fax: | | | | | | | [phone] | | +--------+--------+ + + + + Reason for Visit Auth/Cert +--------+--------+ + + + + | Status | Reason | Specialty | Diagnoses / | Referred By | Referred To | | | | | Procedures | Contact | Contact | +--------+--------+ + + + + | | | | | | | +--------+--------+ + + + + Encounter Details +--------+ + + + + | Date | Type | Department | Care Team | Description | +--------+ + + + + | 03/12/ | [facility] | [facility] | Valente Silvestre, | Interstitial lung | | 2018 | Encounter | [address] | MD [address] | disease (HCC) | | | | [place], | [place] | | | | | [place] [address] | [address] | | | | | [phone] | | | +--------+ + + + + Social History + +-------+ +--------+ + | Tobacco Use | Types | Packs/Day | Years | Date | | | | | Used | | + +-------+ +--------+ + | Former Smoker | | 1 | 50 | 1953 - 2002 | + +-------+ +--------+ + + +---+---+---+ | Smokeless Tobacco: | | | | | Never Used | | | | + +---+---+---+ + + +---------+ + | Alcohol Use | Drinks/Week | oz/Week | Comments | + + +---------+ + | Yes | 1 Cans of beer | 1.0 | beer on rare | | | | | occasions | + + +---------+ + + + + | Sex Assigned at | Date Recorded | | | | + + + | Not on file | | + + + documented as of this encounter Functional Status + + + + | Functional Status | Response | Date of Assessment | + + + + | Are you deaf or do you have serious | Yes | 01/17/2017 | | difficulty hearing? | | | + + + + | Are you blind or do you have serious | No | 01/17/2017 | | difficulty seeing, even when wearing | | | | glasses? | | | + + + + | Do you have serious difficulty walking or | No | 01/17/2017 | | climbing stairs? (5 years old or older) | | | + + + + | Do you have difficulty dressing or bathing? | No | 01/17/2017 | | (5 years old or older) | | | + + + + | Because of a physical, mental, or emotional | Yes | 01/17/2017 | | condition, do you have difficulty doing | | | | errands alone such as visiting a doctor's | | | | office or shopping? [15 years old or | | | | older)] | | | + + + + + + + + | Cognitive Status | Response | Date of Assessment | + + + + | Because of a physical, mental, or emotional | No | 01/17/2017 | | condition, do you have serious difficulty | | | | concentrating, remembering, or making | | | | decisions? (5 years old or older) | | | + + + + documented as of this encounter Medications at Time of Discharge + + + +---------+ + + | Medication | Sig | Dispensed | Refills | Start | End Date | | | | | | Date | | + + + +---------+ + + | calcium-vitamin D | Take 1 tablet by | | 0 | | | | (CALCIUM 600+D) 600 | mouth 2 times daily. | | | | | | mg-200 units per | | | | | | | tablet | | | | | | + + + +---------+ + + | digoxin (LANOXIN) | Take 125 mcg by | | 0 | 11/21/19 | | | 125 mcg tablet | mouth. | | | 18 | | + + + +---------+ + + | furosemide (LASIX) | Take 20 mg by mouth. | | 0 | | | | 20 mg tablet | | | | | | + + + +---------+ + + | metoprolol | Take 25 mg by mouth | | 0 | | | | tartrate (LOPRESSOR) | 2 times daily. | | | | | | 25 mg tablet | | | | | | + + + +---------+ + + | Multiple | Take 1 tablet by | | 0 | | | | Vitamins-Minerals | mouth Daily. | | | | | | (CENTRUM SILVER) | | | | | | | TABS | | | | | | + + + +---------+ + + | tamsulosin | Take 2 capsules by | 30 | 1 | 01/18/20 | | | (FLOMAX) 0.4 mg CAPS | mouth daily (after | capsule | | 17 | | | | breakfast). | | | | | + + + +---------+ + + | warfarin | Take 3 mg by mouth | | 0 | | | | (COUMADIN) 3 MG | Daily . | | | | | | tablet | | | | | | + + + +---------+ + + | ascorbic acid | Take 500 mg by mouth | | 0 | | | | (VITAMIN C) 500 mg | Daily. | | | | 9 | | tablet | | | | | | + + + +---------+ + + | atorvaSTATin | Take 20 mg by mouth | | 0 | | | | (LIPITOR) 20 mg | nightly. | | | | 9 | | tablet | | | | | | + + + +---------+ + + | Misc Natural | Take by mouth 2 | | 0 | | | | Products (PROSTATE | times daily. | | | | 9 | | THERAPY COMPLEX) | | | | | | | CAPS | | | | | | + + + +---------+ + + | tocopherol | Take 400 Units by | | 0 | | | | (VITAMIN E) 400 | mouth Daily. | | | | 9 | | units capsule | | | | | | + + + +---------+ + + | warfarin | Take 5 mg by mouth | | 0 | | | | (COUMADIN) 5 mg | Daily. 5 mg on Tues, | | | | 0 | | tablet | Isaac Fernando Sat, | | | | | | | Sun | | | | | + + + +---------+ + + documented as of this encounter Plan of Treatment +--------+---------+ + + + | Date | Type | Specialty | Care Team | Description | +--------+---------+ + + + | 08/04/ | Office | Cardiology | Anusha Lomax | | | 2020 | Visit | | [address] | | | | | | [address] | | | | | | [place] [address] | | | | | | [phone] | | | | | | | | +--------+---------+ + + + documented as of this encounter Procedures + +--------+ + + + | Procedure Name | Priori | Date/Time | Associated Diagnosis | Comments | | | ty | | | | + +--------+ + + + | CT CHEST WO CONTRAST | Routin | 03/12/2018 | Interstitial lung | Results for this | | | e | 10:01 AM | disease (HCC) | procedure are in the | | | | PDT | | results section. | + +--------+ + + + documented in this encounter Results CT Chest wo Contrast (03/12/2018 10:01 AM PDT) + + | Specimen | + + | | + + + + + | Narrative | Performed At | + + + | TECHNIQUE: Noncontrast axial CT imaging was obtained through the | [facility] | | chest with coronal and sagittal reformats. CLINICAL INFORMATION: | | | Apical interstital changes noted on neck CTA COMPARISON: CT dated | | | 02/18/2018. FINDINGS: BONES: No osteoblastic or osteolytic lesion. | | | Bony demineralization. Chronic compression deformities at T12, | | | L1, and L2 vertebral bodies. No acute osseous abnormality. | | | CHEST: Chest Wall: No axillary lymphadenopathy. No acute soft | | | tissue abnormality. Mediastinum and misa: Mildly enlarged | | | precarinal lymph node measuring up to 10 mm in short axis. Heart and | | | pericardium: Heart size is normal. No pericardial effusion. | | | Vessels: Dilatation of the ascending thoracic aorta measuring up to | | | 4.6 cm in diameter. Prominent aortic calcifications are | | | appreciated. Coronary artery calcifications are noted. Large | | | airways: Diffuse bronchial wall thickening. Pleura: No pleural | | | effusion or pneumothorax. Lungs: Extensive tree-in-bud/centrilobular | | | nodular opacities predominantly involving the upper lobes and | | | superior segment of the lower lobes, right greater than left. | | | Biapical fibronodular scarring. Right middle lobe 3 mm subpleural | | | nodule, series 4 image 65. UPPER ABDOMEN: Unremarkable. | | | IMPRESSION - Nonspecific extensive tree-in-bud/centrilobular nodular | | | opacities predominantly involving the upper lobes with diffuse | | | bronchial wall thickening. Findings most likely reflect | | | endobronchial spread of an atypical infection. Inflammatory | | | bronchiolitis and neoplastic processes are also considerations, albeit | | | unlikely. Mildly enlarged mediastinal lymph node, likely reactive | | | change. Descending thoracic aortic aneurysm measuring 4.6 cm. | | | Dictated and Signed by: Moshe Ross MD Electronically signed: | | | 03/12/2018 1:48 PM | | + + + + + | Procedure Note | + + | Stan, Rad Results In - 03/12/2018 1:51 PM PDT | | TECHNIQUE: Noncontrast axial CT imaging was obtained through the chest with | | coronal and sagittal reformats. | | | | CLINICAL INFORMATION: Apical interstital changes noted on neck CTA | | | | COMPARISON: CT dated 02/18/2018. | | | | FINDINGS: | | BONES: No osteoblastic or osteolytic lesion. Bony demineralization. Chronic | | compression deformities at T12, L1, and L2 vertebral bodies. No acute osseous | | abnormality. | | | | CHEST: | | Chest Wall: No axillary lymphadenopathy. No acute soft tissue abnormality. | | | | Mediastinum and misa: Mildly enlarged precarinal lymph node measuring up to 10 | | mm in short axis. | | Heart and pericardium: Heart size is normal. No pericardial effusion. | | Vessels: Dilatation of the ascending thoracic aorta measuring up to 4.6 cm in | | diameter. Prominent aortic calcifications are appreciated. Coronary artery | | calcifications are noted. | | | | Large airways: Diffuse bronchial wall thickening. | | Pleura: No pleural effusion or pneumothorax. | | Lungs: Extensive tree-in-bud/centrilobular nodular opacities predominantly | | involving the upper lobes and superior segment of the lower lobes, right greater | | than left. Biapical fibronodular scarring. Right middle lobe 3 mm subpleural | | nodule, series 4 image 65. | | | | UPPER ABDOMEN: Unremarkable. | | | | | | IMPRESSION - | | Nonspecific extensive tree-in-bud/centrilobular nodular opacities predominantly | | involving the upper lobes with diffuse bronchial wall thickening. Findings most | | likely reflect endobronchial spread of an atypical infection. Inflammatory | | bronchiolitis and neoplastic processes are also considerations, albeit unlikely. | | | | Mildly enlarged mediastinal lymph node, likely reactive change. | | | | Descending thoracic aortic aneurysm measuring 4.6 cm. | | | | Dictated and Signed by: Moshe Ross MD | | Electronically signed: 03/12/2018 1:48 PM | + + + +---------+ + + | Performing | Address | City/State/Zipcode | Phone Number | | Organization | | | | + +---------+ + + | [facility] | | | | + +---------+ + + documented in this encounter Visit Diagnoses + + | Diagnosis | + + | Interstitial lung disease (HCC) Postinflammatory pulmonary fibrosis | + + documented in this encounter"
--- OUTSIDE RECORDS SUMMARY | ~2020-02-23 | XMS | Encounter Summary ---
Demographics + + + | Address | [address] | | | [place] [address] | + + + | Home Phone | | + + + | Preferred Language | Unknown | + + + | Marital Status | | + + + | Confucianist Affiliation | Unknown | + + + | Race | Unknown | + + + | Ethnic Group | Unknown | + + + Author + + + | Author | [facility] | | | and [place] | + + + | Organization | [facility] | | | and [place] | + + + | Address | Unknown | + + + | Phone | Unavailable | + + + Support + + + + + | Name | Relationship | Address | Phone | + + + + + | Rivka Katelin | ECON | | | | | | [place] | | | | | [address] | | + + + + + Care Team Providers + +------+ + | Care Practice Office Associate Name | Role | Phone | + +------+ + | Carlos Alberto Galeas MD | PCP | | + +------+ + Reason for Visit +---------+--------+ + | Reason | Onset | Comments | | | Date | | +---------+--------+ + | Imaging | 01/10/ | follow up | | | 2020 | | +---------+--------+ + Encounter Details +--------+ + + + + | Date | Type | Department | Care Team | Description | +--------+ + + + + | 01/10/ | Telephone | [facility] | Osmin Garber MD | Imaging (follow up ) | | 2020 | | VASCULAR SURGERY | [address] | | | | | [address] | [address] | | | | | [place], [place] | [place] [address] | | | | | [address] | [phone] | | | | | [phone] | | | +--------+ + + + [...] Comments | + + +---------+ + | Not Currently | 1 Cans of beer | 1.0 | no alcohol for years | + + +---------+ + + + + + | Alcohol Habits | Answer | Date Recorded | + + + + | How often do you have a drink containing | Never | 09/10/2019 | | alcohol? | | | + + + + | How many drinks containing alcohol do you | Not asked | | | have on a typical day when you are | | | | drinking? | | | + + + + | How often do you have six or more drinks on | Not asked | | | one occasion? | | | + + + + + + + | Sex Assigned [...] + + documented as of this encounter Miscellaneous Notes Telephone Encounter - Maryjo Birmingham - 01/11/2020 9:15 AM PDTRivka, is calling r egarding Imaging (follow up ) and would like a call back. Additional Call Details: Cancel 01/19 imaging and follow up due to fear of Covid If this is a symptom based call, was patient offered triage? 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 not applicable documented in this encounter Plan of Treatment +--------+---------+ + + + | Date | Type | Specialty | Care Team | Description | +--------+---------+ + + + | 08/04/ | Office | Cardiology | Anusha Lomax | | | 2020 | Visit | | [address] | | | | | | [address] | | | | | | [place] [address] | | | | | | [phone] | | | | | | | | +--------+---------+ + + + documented as of this encounter Visit Diagnoses Not on filedocumented in this encounter"
--- OUTSIDE RECORDS SUMMARY | ~2020-02-23 | XMS | Encounter Summary ---
Demographics + + + | Address | [address] | | | [place] [address] | + + + | Home Phone | | + + + | Preferred Language | Unknown | + + + | Marital Status | | + + + | Lutheran Affiliation | Unknown | + + + | Race | Unknown | + + + | Ethnic Group | Unknown | + + + Author + + + | Author | [facility] | | | and [place] | + + + | Organization | [facility] | | [...] [place] | | | | | [id number] | | + + + + + Care Team Providers + +------+ + | Care Athletic Gear Custodian Name | Role | Phone | + [...] | | | MD Valente | [address] | | | | | Interstitial | [address] | [place], | | | | | lung | [place] | [place] [address] | | | | | disease | [place], | Phone: | | | | | (HCC) | [place] [address] | [phone] | | | | | Procedures | Phone: | Fax: | | | | | CT Chest wo | [phone] | [phone] | | | | | Contrast | Fax: | | | | | | | [phone] | | +--------+--------+ + + + + Reason for Visit Evaluate & Treat (Routine) +--------+--------+ + + + + | Status | Reason | Specialty | Diagnoses / | Referred By | Referred To | | | | | Procedures | Contact | Contact | +--------+--------+ + + + + | Closed | | Pulmonology | Diagnoses | Adal, | Konrad, | | | | | CT | Carlos Alberto | MD Valente | | | | | SUSPICIOUS | MD Dylan | [address] | | | | | FOR ATYPICAL | [address] | [place], | | | | | PNEUMONIA | [address] | [place] [address] | | | | | VS CANCER VS | [place], | Phone: | | | | | CHRONIC | [place] [address] | [phone] | | | | | INTERSTITIAL | Phone: | Fax: | | | | | LUNG | [phone] | [phone] | | | | | DISEASE. | Fax: | | | | | | Procedures | [phone] | | | | | | NEW PT | | | | | | | CONSULT | | | +--------+--------+ + + + + Encounter Details +--------+---------+ + + + | Date | Type | Department | Care Team | Description | +--------+---------+ + + + | 02/28/ | Office | [facility] | Valente Silvestre, | Interstitial lung | | 2018 | Visit | PULMONARY [address] | disease (HCC) | | | | [place], | [place], [place] | (Primary Dx) | | | | [place] [address] | [address] | | | | | [phone] | | | +--------+---------+ + + + Social History + +-------+ +--------+ + | Tobacco Use | Types | Packs/Day | Years | Date | | | | | Used | | + +-------+ +--------+ + | Former Smoker | | 1 | 50 | 1952 - 2002 | + +-------+ +--------+ + [...] + + documented as of this encounter Last Filed Vital Signs + + + + + | Vital Sign | Reading | Time Taken | Comments | + + + + + | Blood Pressure | 138/78 | 02/28/2018 12:50 PM | | | | | PDT | | + + + + + | Pulse | 62 | 02/28/2018 12:50 PM | | | | | PDT | | + + + + + | Temperature | - | - | | + + + + + | Respiratory Rate | 14 | 02/28/2018 12:50 PM | | | | | PDT | | + + + + + | Oxygen Saturation | 97% | 02/28/2018 12:50 PM | | | | | PDT | | + + + + + | Inhaled Oxygen | - | - | | | Concentration | | | | + + + + + | Weight | 71.2 kg (156 lb 15.5 | 02/28/2018 12:50 PM | | | | oz) | PDT | | + + + + + | Height | 165.1 cm (5' 5") | 02/28/2018 12:50 PM | | | | | PDT | | + + + + + | Body Mass Index | 26.12 | 02/28/2018 12:50 PM | | | | | PDT | | + + + + + documented in this encounter Functional Status + + + [...] + + documented as of this encounter Progress Notes Valente Silvestre MD - 02/28/2018 1:00 PM PDTFormatting of this note might be different f rom the original. Pulmonary Consult Note 02/28/2018 HPI Deborah Thomason is a 87 y.o. male patient of Carlos Alberto Galeas MD here today for eval uation of a recently noted upper lung zone parenchymal change noted on neck CTA. Mr. Thomason apparently was seeing Dr. Alston for peripheral vascular disease. A CT angiogram of the neck was ordered. Abnormalities were noted in the apices bilaterally. Discussion oc curred with Dr. Galeas and pulmonary consultation was requested. Deborah are able to walk 1-2 block at their own pace on level ground before developing back and leg issues. The distance walked is predominately limited by PVD. One year ago, they feel that they could walk 1-2 blocks. Triggers for their shortness of breath include exertion. Relieving factors include rest and avoidance. The patient does not exercise regularly. Pamelaernreports that their exercise consists of mini mal walking. They are not enrolled in pulmonary rehabilitation. They have not completed pul monary rehabilitation in the past. He does cough chronically, and does produce mucous. The mucous is clear in color. They have not had hemoptysis in the last 6 months. The patient does not use pulmonary medications for chronic lung disease. They have not had to be hospitalized for breathing issues in the past. Deborah has not requ ired intubation in the past. They have not had to go to the emergency room in the last year related to a breathing problem. They have had 0 exacerbations in the past year requiring ramone atment with prednisone and 0 treatments with antibiotics. Deborah has not been evaluated for nocturnal oxygen. 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 PVD (peripheral vascular disease) ([facility]) 02/06/2018 Urinary retention Past Surgical History: Past Surgical History: Procedure Laterality Date CAROTID ENDARTERECTOMY Right CATARACT REMOVAL WITH IMPLANT Bilateral 03/30/10 and 04/27/10 CORONARY ANGIOPLASTY without stent [facility] OR [facility] [id number] FEMUR FRACTURE SURGERY Right 12/19/2016 Procedure: ORIF IM RODDING FEMORAL ANTEGRADE; Surgeon: Lambert Mancuso MD; Location: [facility] MAIN OR FEMUR FRACTURE SURGERY Left 12/19/2016 Procedure: ORIF IM RODDING FEMORAL TROCHANTERIC NAIL; Surgeon: Lambert Mancuso MD; Locati on: [facility] MAIN OR Heart/ Arrhythmia ablation Right femoral to below knee popliteal reverse saphenus vein graft 12/01/2013 Right common femoral endarterectomy with Vascu-Guard patch angioplasty, Right external mk ac stent angioplasty 7x29 mm, Angiography, Harvesting right greater saphenous vein, Dual - l umen on Q pain pump placement. [facility] - Dr. Delaney Right thigh biopsy 10/24/2011 nonspecific chronic dermatitis Ultrasound guided access, right common femoral artery 11/30/2013 Right iliac angiography, Right femoral angiography with runoff. [facility] - Dr. Delaney Family History: Family History Problem Relation Age of Onset Coronary artery disease Mother CABG Heart attack Father Heart disease Father Emphysema Father No Known Problems Sister Coronary artery disease Brother * Brother health statuses unknown Social History: He reports that he quit smoking about 15 years ago. He started smoking about 65 years ago. He has a 50.00 pack-year smoking history. He has never used smokeless tobacco. He reports th at he drinks about 0.6 oz of alcohol per week . He reports that he does not use drugs. Allergies: Allergies Allergen Reactions Naproxen Other (See Comments) States "put me in the hospital with kidney failure" States "put me in the hospital with kidney failure" Penicillins Swelling, Rash and Hives Lips swell eyes swell shut and pruritis Acetaminophen Rash Lisinopril Other (See Comments) Olmesartan Other (See Comments) Prednisone Other (See Comments) "Knocks heart out of rhythm" Medications: Current Outpatient Prescriptions: ascorbic acid (VITAMIN C) 500 mg tablet, Take 500 mg by mouth Daily., Disp: , Rfl: atorvaSTATin (LIPITOR) 20 mg tablet, Take 20 mg by mouth nightly., Disp: , Rfl: calcium-vitamin D (CALCIUM 600+D) 600 mg-200 units per tablet, Take 1 tablet by mouth 2 times daily., Disp: , Rfl: digoxin (LANOXIN) 125 mcg tablet, Take 125 mcg by mouth., Disp: , Rfl: fluocinonide (LIDEX) 0.05 % external solution, fluocinonide 0.05 % topical solution, D isp: , Rfl: furosemide (LASIX) 20 mg tablet, Take 20 mg by mouth., Disp: , Rfl: metoprolol tartrate (LOPRESSOR) 25 mg tablet, Take 0.5 tablets by mouth Daily. Hold if systolic (top number) blood pressure less than 90., Disp: 30 tablet, Rfl: 1 Misc Natural Products (PROSTATE THERAPY COMPLEX) CAPS, Take by mouth 2 times daily., Disp: , Rfl: Multiple Vitamins-Minerals (CENTRUM SILVER PO), Take by mouth., Disp: , Rfl: Multiple Vitamins-Minerals (CENTRUM SILVER) TABS, Take 1 tablet by mouth Daily., Disp: , Rfl: tamsulosin (FLOMAX) 0.4 mg CAPS, Take 2 capsules by mouth daily (after breakfast)., Di sp: 30 capsule, Rfl: 1 tocopherol (VITAMIN E) 400 units capsule, Take 400 Units by mouth Daily., Disp: , Rfl: warfarin (COUMADIN) 3 MG tablet, Take 3 mg by mouth Daily. Saturday, Sat, Saturday, Disp: , Rfl: warfarin (COUMADIN) 5 mg tablet, Take 5 mg by mouth Daily. As directed 5 mg on , , Sat, Saturday or as directed by doctor., Disp: , Rfl: Immunizations: There is no immunization history on file for this patient. Review of Systems Constitutional: Denies fever, chills, sweats, fatigue/weakness, and unexpected weight ocrnejo ge. Sleep: Denies trouble sleeping, loud snoring, and excessive daytime sleepiness. Eyes: Denies vision change, and eye irritation. ENT: Denies earache, tinnitus, decreased hearing, nasal congestion, nosebleeds, sore throa t, and hoarseness. Resp: Denies hemoptysis or pleuritic chest pain. CV: Denies neck/chest/jaw pain with exertion, palpitations, lightheadedness, syncope, orth opnea, PND, peripheral edema, and claudication. GI: Denies trouble swallowing, heartburn, nausea, vomiting, abdominal pain, diarrhea,melen a, and hematochezia. Denies dysuria, hematuria, urinary frequency, difficulty emptying bladder, nocturia. Musculoskeletal: Denies joint pain/stiffness, joint swelling, muscle pain/cramps, muscle we akness. Derm: Denies rash, itching, dryness, and suspicious lesions. Neurologic: Denies frequent headaches, seizures, tremors, numbness or tingling in hands or feet, vertigo or difficulty walking in past 6 months. Psych Denies depression, anxiety, suicidal ideation. Endo Denies cold intolerance or heat intolerance. Heme Denies abnormal bruising, bleeding, and enlarged lymph nodes. Allergy Denies urticaria, allergic rash, hay fever Objective BP 138/78 | Pulse 62 | Resp 14 | Ht 1.651 m (5' 5") | Wt 71.2 kg (156 lb 15.5 oz) | Sp O2 97% | BMI 26.12 kg/m General Appearance: Alert, cooperative, no distress, appears stated age. Head: Normocephalic, without obvious abnormality, atraumatic. Eyes: PERRL, conjunctiva/corneas clear. Ears: Normal external appearance, TM's not examined. Nose: Nares normal, septum midline, mucosa normal, no drainage or sinus tenderness. Throat: Lips, mucosa, and tongue normal; teeth and gums normal. MP 3. Neck: Supple, symmetrical, no adenopathy. Lungs: No accessory muscle use, breath sounds are clear to auscultation bilaterally, no w heezes, no crackles or rhonchi. No dullness to percussion. Chest Wall: No tenderness or deformity. Heart: Irregularly irregular, no murmur, no rub or gallop Abdomen: Soft, non-tender. No hepatosplenomegaly. Extremities: Extremities normal, atraumatic, no cyanosis, clubbing. Edema 1+ to the mid ca lf bilaterally (right greater than left). No hair involving the lower extremities. Pulses: Radial pulses 2+ and symmetric Skin: Warm and dry Lymph nodes: Cervical and supraclavicular nodes normal Neurologic: The patient walks with a need of a cane. Data: Chest x-ray(s) reports from 12/29/10, 01/02/13, 12/18/16, 01/27/17 were reviewed today with the patient present. They apparently show abnormal interstitial abnormalities on the films from 2012 and 2016. No such abnormalities are apparently noted on the film from 2010. Actual chest x-rays from 12/25/16 and 02/03/18 were reviewed with the patient. The film from 2017 is a portable. 2018 film shows cardiomegaly. The film from 2017 shows an apparent inf iltrate involving the right lower lobe and the film from 2018 interstitial changes primarily in the right upper lobe. Neck CTA(s) from 02/18/18 was reviewed today with the patient present. They show groundglass /nodular changes in the bilateral apical regions. The entirety of the patient's lungs are n ot visualized. Carlos Alberto Galeas MD's notes were reviewed in clinic today. Assessment Mr. Thomason is a 87-year-old male with multiple medical problems who was referred by Carlos Alberto Galeas M.D. for pulmonary consultation regarding abnormal parenchymal changes noted on a n jo-ann CTA. The patient apparently had a neck CTA performed as part of a workup for peripheral vascular disease. Abnormalities were noted in the apices bilaterally. Reviewing reports of chest x -rays dating back to 2010 apparently show some evidence of similar changes dating back to . No such abnormalities are noted on the x-ray from [address] scan of the chest (repo rt) from November 2007. Of note Mr. Thomason apparently was treated with amiodarone for over 20 years but ultimately t he medication was discontinued. Mr. Thomason does not know the reasoning for the discontinuati on of the medication and I do not see pulmonary function tests documenting progressive lung disease thought to be related to amiodarone. It is difficult to comment on the etiology of the patient's bilateral upper lung zone inter stitial/groundglass changes without knowing whether they involve the lower lung zones. Thus I suggested that a dedicated CT scan of chest pain performed. There does appear to be some chronicity to the radiographic abnormalities at least based on chest x-rays dating back to 2012. Likewise Mr. Thomason has little in the way of pulmonary sy mptomatology. The findings are unlikely to be related to an underlying infectious process or malignancy. One primary question is that of whether the changes are secondary to a progressive intersti tial lung disease. Plan 1. CT scan of the chest without contrast. 2. Exertional oximetry on room air. 3. Pulmonary clinic follow-up appointment to review the patient's CAT scan and exertional oximetry within the next 1 2 weeks. CC: Carlos Alberto Galeas MD documented in this encounter Plan of Treatment +--------+---------+ + + + | Date | Type | Specialty | Care Team | Description | +--------+---------+ + + + | 08/04/ | Office | Cardiology | Anusha Lomax | | | 2020 | Visit | | [address] | | | | | [address] | | | | | | [place] [address] | | | | | | [phone] | | | | | | | | +--------+---------+ + + + documented as of this encounter Procedures + +--------+ + + + | Procedure Name | Priori | Date/Time | Associated Diagnosis | Comments | | | ty | | | | + +--------+ + + + | LABS - EXTERNAL SCAN | | 03/05/2018 | | Results for this | | | | 12:00 AM | | procedure are in the | | | | PDT | | results section. | + +--------+ + + + | IMAGING REPORT - | | 01/27/2017 | | Results for this | | EXTERNAL SCAN | | 12:00 AM | | procedure are in the | | | | PDT | | results section. | + +--------+ + + + | IMAGING REPORT - | | 12/18/2016 | | Results for this | | EXTERNAL SCAN | | 12:00 AM | | procedure are in the | | | | PDT | | results section. | + +--------+ + + + | IMAGING REPORT - | | 01/02/2013 | | Results for this | | EXTERNAL SCAN | | 12:00 AM | | procedure are in the | | | | PDT | | results section. | + +--------+ + + + | IMAGING REPORT - | | 12/29/2010 | | Results for this | | EXTERNAL SCAN | | 12:00 AM | | procedure are in the | | | | PDT | | results section. | + +--------+ + + + | IMAGING REPORT - | | 11/28/2007 | | Results for this | | EXTERNAL SCAN | | 12:00 AM | | procedure are in the | | [...] CT imaging was obtained through the | [facility] | | chest with coronal and [...] | | | + +---------+ + + LABS - EXTERNAL SCAN (03/05/2018 12:00 AM PDT) + + + | Narrative | Performed At | + + + | Ordered by an | | | unspecified provider. | | + + + IMAGING REPORT - EXTERNAL SCAN (01/27/2017 12:00 AM PDT) + + + | Narrative | Performed At | + + + | Ordered by an | | | unspecified provider. | | + + + IMAGING REPORT - EXTERNAL SCAN (12/18/2016 12:00 AM PDT) + + + | Narrative | Performed At | + + + | Ordered by an | | | unspecified provider. | | + + + IMAGING REPORT - EXTERNAL SCAN (01/02/2013 12:00 AM PDT) + + + | Narrative | Performed At | + + + | Ordered by an | | | unspecified provider. | | + + + IMAGING REPORT - EXTERNAL SCAN (12/29/2010 12:00 AM PDT) + + + | Narrative | Performed At | + + + | Ordered by an | | | unspecified provider. | | + + + IMAGING REPORT - EXTERNAL SCAN (11/28/2007 12:00 AM PDT) + + + | Narrative | Performed At | + + + | Ordered by an | | | unspecified provider. | | + + + documented in this encounter Visit Diagnoses + + | Diagnosis | + + | Interstitial lung disease (HCC) - Primary Postinflammatory pulmonary fibrosis | + + documented in this encounter
--- OUTSIDE RECORDS SUMMARY | ~2020-02-23 | XMS | Encounter Summary ---
Demographics + + + | Address | [address] | | | [place] [address] | + + + | Home Phone | | + + + | Preferred Language | Unknown | + + + | Marital Status | | + + + | Catholic Affiliation | Unknown | + + + | Race | Unknown | + + + | Ethnic Group | Unknown | + + + Author + + + | Author | [facility] | | | and [place] | + + + | Organization | [facility] | | | and [...] [place] | | | | | [id number] | | + + + + + Care Team Providers + +------+ + | Care Pipe Fitter Marine Name | Role | Phone | + +------+ + | Carlos Alberto Galeas MD | PCP | | + +------+ + Reason for Referral Evaluate & Treat (Routine) + + + + + + + | Status | Reason | Specialty | Diagnoses / | Referred By | Referred To | | | | | Procedures | Contact | Contact | + + + + + + + | Pending | Specialty | Home Health | Diagnoses | Trey, | | | Review | Services | Services | PAD | Thor, | | | | Required | | (peripheral | MD [address] | | | | | | artery | [address] | | | | | | disease) | [place], [place] | | | | | | (HCC) | [address] | | | | | | Chronic | Phone: | | | | | | atrial | [phone] | | | | | | fibrillation | Fax: | | | | | | ([facility]) | [phone] | | | | | | Chronic | | | | | | | diastolic | | | | | | | heart | | | | | | | failure | | | | | | | (HCC) PVD | | | | | | | (peripheral | | | | | | | vascular | | | | | | | disease) | | | | | | | (HCC) | | | + + + + + + + Evaluate & Treat (Routine) + + + + + + + | Status | Reason | Specialty | Diagnoses / | Referred By | Referred To | | | | | Procedures | Contact | Contact | + + + + + + + | Pending | Specialty | Home Health | Diagnoses | [facility] | | | Review | Services | Services | PVD | Intermediate | | | | Required | | (peripheral | Care [address] | | | | | | vascular | [address] | | | | | | disease) | [place], [place] | | | | | | ([facility]) | [address] | | | | | | Atrial | Phone: | | | | | | fibrillation | [phone] | | | | | | with RVR | Fax: | | | | | | ([facility]) | [phone] | | + + + + + + + Diagnostic/Screening (Routine) +--------+--------+ + + + + | Status | Reason | Specialty | Diagnoses / | Referred By | Referred To | | | | | Procedures | Contact | Contact | +--------+--------+ + + + + | Closed | | Radiology | Diagnoses | Jcarlos, | | | | | | PAD | Osmin Pearson MD | | | | | | (peripheral | [address] | | | | | | artery | [address] | | | | | | disease) | [address] | | | | | | (HCC) | [place] | | | | | | Procedures | TREY KIM | | | | | | IR Angiogram | [id number] | | | | | | Lower | Phone: | | | | | | Extremity | [phone] | | | | | | Left | Fax: | | | | | | | [phone] | | +--------+--------+ + + + + Reason for Visit Auth/Cert +--------+--------+ + + + + | Status | Reason | Specialty | Diagnoses / | Referred By | Referred To | | | | | Procedures | Contact | Contact | +--------+--------+ + + + + | | | | Diagnoses | | | | | | | PAD | | | | | | | (peripheral | | | | | | | artery | | | | | | | disease) | | | | | | | (HCC) | | | | | | | Procedures | | | | | | | ENDARTERECTO | | | | | | | MY FEMORAL | | | +--------+--------+ + + + + Encounter Details +--------+ + + + + | Date | Type | Department | Care Team | Description | +--------+ + + + + | 09/11/ | Hospital | [facility] | Osmin Garber MD | PAD (peripheral | | 2020 - | Encounter | [facility] | [address] | artery disease) | | | | [address] | [address] [place] | ([facility]); PAD | | 09/19/ | | [place], [place] | [place] [address] | (peripheral artery | | 2019 | | [address] | [phone] | disease) ([facility]); | | | | [phone] | | Bilateral carotid | | | | | Luther Maurer, | artery stenosis; | | | | | [address] | Chronic anemia; | | | | | [place] [address] | Chronic atrial | | | | | [phone] | fibrillation ([facility]); | | | | | | Chronic diastolic | | | | | Thor Yang MD | heart failure ([facility]); | | | | | [address] | Essential | | | | | [place] [address] | hypertension; PVD | | | | | [phone] | (peripheral vascular | | | | | | disease) ([facility]); | | | | | | Atrial fibrillation | | | | | | with RVR ([facility]) | +--------+ + + + + Social History + +-------+ +--------+ + | Tobacco Use | Types | Packs/Day | Years | Date | | | | | Used | | + +-------+ +--------+ + | Former Smoker | | 1 | 50 | 1952 | + +-------+ +--------+ + + +---+---+---+ [...] + + + | Blood Pressure | 95/57 | 2019 11:24 AM | | | | | PST | | + + + + + | Pulse | 63 | 2019 11:24 AM | | | | | PST | | + + + + + | Temperature | 36.9 C (98.5 F) | 2019 11:24 AM | | | | | PST | | + + + + + | Respiratory Rate | 22 | 2019 11:24 AM | | | | | PST | | + + + + + | Oxygen Saturation | 97% | 2019 11:24 AM | | | | | PST | | + + + + + | Inhaled Oxygen | - | - | | | Concentration | | | | + + + + + | Weight | 74 kg (163 lb 2.3 | 2019 3:32 AM | | | | oz) | PST | | + + + + + | Height | 172.7 cm (5' 8") | 09/11/2019 6:24 AM | | | | | PST | | + + + + + | Body Mass Index | 24.81 | 09/11/2019 6:24 AM | | | | | PST | | + + + + + [...] + + documented as of this encounter Discharge Summaries Thor Yang MD - 2019 1:54 PM PSTFormatting of this note might be different fr om the original. Service: Hospitalist Physician Discharge Summary Patient ID: Deborah Thomason [id number] y.o. Admit date: 09/11/2019 Discharge date and time: 09/20/19 Admitting Physician: Osmin Garber MD Discharge Physician: Thor Yang MD Consultants: Treatment Team: Anurag Villa MD Primary Discharge Diagnoses: Principal Problem: PVD (peripheral vascular disease) Active Problems: Chronic atrial fibrillation Essential hypertension Bilateral carotid artery stenosis PAD (peripheral artery disease) Chronic diastolic heart failure Chronic anemia Atrial fibrillation with RVR Postprocedural hypotension HPI and Hospital Course: Mr. Thomason is an 88-year-old male with a history of chronic atrial fibrillation, on chronic warfarin, coronary artery disease, diastolic heart failure/chronic, CVA, peripheral vascular disease, and bilateral carotid artery stenosis (history of right carotid endarterectomy). He was admitted on 09/11/2019 with left lower extremity critical limb ischemia with a nonhe aling wound, he underwent left femoral endarterectomy, angioplasty and stent placement by Dr Gabriela Garber. Postoperatively, the patient was noted to be hypotensive with systolic blood pressures in t he 90s, he required transfer to the intensive care unit, required Kailee-Synephrine drip, he th en developed atrial fibrillation with rapid ventricular rate, Dr. Villa/cardiology was c onsulted, he was placed on amiodarone IV, loading dose, then transitioned to oral for rate c ontrol. He required persistent pressor support, ruled out for sepsis, transitioned to midodrine for BP controlled, then transitioned to oral amiodarone 400 mg twice a day. Subsequently, pressors were weaned off over the next 24 hours. Blood pressures were stable . He had good rate control. Metoprolol was subsequently restarted at 25 mg 2 times daily. Physical therapy recommended SNF. Initially, the patient was agreeable and on the day of d ischarge, he was quite adamant that he wanted to return home. The patient's son and we re present and they felt that he is stable enough to go home. He was ambulating with assist ance of a front wheel walker, the patient adamantly refused going to a usp facil it. The patient's son and indicated they felt comfortable with him returning home. As a r esult, he was discharged home with care of his family. workers compensation defense attorney was involved, in assistance with home health, home physical therapy. Date of discharge, INR was therapeutic at 2.9, the patient's heart rate was 105-63 beats pe r minute, atrial fibrillation, systolic blood pressure ranged from 99-114 mmHg. Midodrine was discontinued. He is instructed to follow up with Dr. Garber in approximately 2 weeks for removal of stapl es. He is instructed to follow up with his PCP in approximately 1-2 weeks. He is instructed to follow up with his loss prevention investigator, Dr. Selby in approximately 2 weeks. He is instructed to have a repeat PT/INR in approximately 1 week time. DISCHARGE DIAGNOSES: 1. Peripheral vascular disease, status post left lower extremity iliac stent, femoral enda rterectomy. He has been placed on Plavix. 2. Postoperative hypotension secondary to AVR/atrial fibrillation. 3. Chronic diastolic congestive heart failure. 4. Atrial fibrillation with rapid ventricular response, subsequently placed on amiodarone. He is being discharged on 400 mg twice a day for additional 3 days to complete 1 week load followed by 200 mg daily. He is to continue digoxin, Metoprolol, Warfarin. 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 PVD (peripheral vascular disease) ([facility]) 02/06/2018 PVD (peripheral vascular disease) ([facility]) Urinary retention Past Surgical History: Procedure Laterality Date ARTERY SURGERY Left 09/11/2019 Procedure: ENDARTERECTOMY FEMORAL; Surgeon: Osmin Garber MD; [place] [facility] CAROTID ENDARTERECTOMY Right CATARACT REMOVAL WITH IMPLANT Bilateral 03/30/10 and 04/27/10 CORONARY ANGIOPLASTY without stent [facility] Approx [id number] FEMUR FRACTURE SURGERY Right 12/19/2016 Procedure: ORIF IM RODDING FEMORAL ANTEGRADE; Surgeon: Lambert Mancuso MD; Location: [facility] MAIN OR FEMUR FRACTURE SURGERY Left 12/19/2016 Procedure: ORIF IM RODDING FEMORAL TROCHANTERIC NAIL; Surgeon: Lambert Mancuso MD; Locati on: [facility] MAIN OR Heart/ Arrhythmia ablation Right femoral to below knee popliteal reverse saphenus vein graft 12/01/2013 Right common femoral endarterectomy with Vascu-Guard patch angioplasty, Right external mk ac stent angioplasty 7x29 mm, Angiography, Harvesting right greater saphenous vein, Dual - l umen on Q pain pump placement. [facility] - Dr. Delaney Right thigh biopsy 10/24/2011 nonspecific chronic dermatitis Ultrasound guided access, right common femoral artery 11/30/2013 Right iliac angiography, Right femoral angiography with runoff. [facility] - Dr. Delaney Discharged Condition: Stable for discharge as stated above. Significant Diagnostic Studies: No results found. Discharge Vitals: Vitals: 09/19/19 2322 09/20/19 0332 09/20/19 0757 09/20/19 1124 BP: 106/74 105/73 114/80 95/57 Pulse: 92 110 105 63 Resp: Temp: 36.5 C (97.7 F) 36.8 C (98.2 F) 36.9 C (98.4 F) 36.9 C (98.5 F) TempSrc: Oral Oral Oral Oral SpO2: 97% 97% 93% 97% Weight: 74 kg (163 lb 2.3 oz) Height: Discharge Exam: Physical Exam Vitals signs and nursing note reviewed. Constitutional: Comments: Patient is awake alert in no acute distress. He is hard of hearing. He is coherent, and son are present Cardiovascular: Rate and Rhythm: Rhythm irregular. Pulses: Normal pulses. Abdominal: General: Abdomen is flat. Comments: Left groin surgical site healing well, samy in place, Musculoskeletal: Comments: Bilateral lower extremities are warm. Neurological: General: No focal deficit present. Mental Status: He is alert and oriented to person, place, and time. Psychiatric: Mood and Affect: Mood normal. Behavior: Behavior normal. LABS: Recent Results (from the past 24 hour(s)) Potassium Result Value Ref Range K 4.3 3.5 - 4.9 mmol/L Protime INR Result Value Ref Range INR 2.7 Comprehensive Metabolic Panel Result Value Ref Range Na 134 (L) 135 - 145 mmol/L K 4.3 3.5 - 4.9 mmol/L Cl 103 99 - 109 mmol/L CO2 25 23 - 32 mmol/L Anion Gap 10 5 - 20 mmol/L Glucose 90 65 - 99 mg/dL BUN 18 8 - 25 mg/dL Creatinine 0.91 0.70 - 1.30 mg/dL BUN/Creatinine Ratio 20 Calcium 9.1 8.5 - 10.5 mg/dL Protein, Total 5.5 (L) 6.3 - 8.2 g/dL Albumin 3.2 (L) 3.3 - 4.8 g/dL Globulin 2.3 1.3 - 4.9 g/dL A/G Ratio 1.4 1.0 - 2.4 BILIRUBIN, TOTAL 0.4 0.1 - 1.5 mg/dL ALK PHOS 189 (H) 35 - 115 U/L AST 44 10 - 45 U/L ALT 35 10 - 65 U/L Estimated GFR >60 >60 mL/min/1.73m2 CBC with Differential Result Value Ref Range WBC 7.94 3.80 - 11.00 K/uL RBC 3.26 (L) 4.20 - 5.70 M/uL Hemoglobin 9.7 (L) 13.2 - 17.0 g/dL Hematocrit 29.1 (L) 39.0 - 50.0 % MCV 89.3 80.0 - 100.0 fl MCH 29.8 27.0 - 34.0 pg MCHC 33.3 32.0 - 35.5 g/dL RDW-SD 50.2 37 - 53 fl Platelet Count 414 (H) 150 - 400 K/uL MPV 9.7 fl Diff Type AUTOMATED % nRBC 0.0 0 /100WBC % Neutrophils 71.90 % IMMATURE GRANULOCYTE 0.60 % % Lymphocytes 7.60 % Monocyte % 9.90 % Eosinophils % 9.40 % Basophils % 0.60 % Neutrophils, Absolute 5.70 1.90 - 7.40 K/uL IMMATURE GRANS AB 0.05 0.00 - 0.07 K/uL Absolute Lymphocytes 0.60 (L) 1.00 - 3.90 K/uL Absolute Monocytes 0.79 0.00 - 0.80 K/uL Eosinophils, Absolute 0.75 (H) 0.00 - 0.50 K/uL Basophils, Absolute 0.05 0.00 - 0.10 K/uL Magnesium Result Value Ref Range Magnesium 1.7 1.7 - 2.4 mg/dL Disposition: Home with Home Health Patient Instructions: No notes on file No follow-ups on file. . Discharge Medications New Medications Details amiodarone 400 MG tablet Take 1 tablet by mouth 2 times daily for 5 doses. aka: PACERONE amiodarone 200 mg tablet Take 1 tablet by mouth Daily. aka: PACERONE Start: September 24, 2019 clopidogrel 75 mg tablet Take 1 tablet by mouth Daily. aka: PLAVIX Start: September 21, 2019 Changed Medications Details tamsulosin 0.4 mg Caps Take 2 capsules by mouth daily (after breakfast). What changed: how much to take aka: FLOMAX Unchanged Medications Details CALCIUM 600+D 600 mg-200 units per tablet Generic drug: calcium-vitamin D Take 1 tablet by mouth 2 times daily. CENTRUM SILVER Tabs Take 1 tablet by mouth Daily. digoxin 125 mcg tablet Take 125 mcg by mouth. aka: LANOXIN furosemide 20 mg tablet Take 20 mg by mouth. aka: LASIX KLOR-CON M20 20 mEq ER tablet Generic drug: potassium chloride metoprolol tartrate 25 mg tablet Take 25 mg by mouth 2 times daily. aka: LOPRESSOR tocopherol 400 units capsule vitamin E (dl, acetate) 400 unit capsule Take by oral route. aka: VITAMIN E Vitamin C 500 MG Caps Take 1 capsule by mouth Daily. warfarin 5 mg tablet Take 5 mg by mouth Daily. 5 mg on , Sat, , Sat, Sun aka: COUMADIN warfarin 3 MG tablet Take 3 mg by mouth Daily. 3 mg on Mon and Fri aka: COUMADIN Carlos Alberto Galeas MD [address] [place] [address] In 1 week Osmin Garber MD [address] [place] [id number] In 2 weeks Follow-up post vascular intervention, staple removal Paolo Selby MD [address] [facility] [address] In 2 weeks Follow-up for atrial fibrillation 2019 1:54 PM Signed: Electronically signed by: Thor Yang MD, 2019 1:54 PM [facility] Discharge took more than 35 minutes, to include final examination, discussion of admission, and preparation of prescriptions, instructions for ongoing care, follow up and dictation of summary. Portions of this chart may have been created with [employer] voice recognition software. Occasi onal wrong-word or sound-alike substitutions may have occurred due to the inherent ness itations of voice recognition software. Please read the chart carefully and recognize, using context, where these substitutions have occurred documented in this e ncounter Discharge Instructions Instructions Medina Pitts RN - . Please have your warfarin/Coumadin level checked within 3 to 5 days (INR 2.7 on 09/20/19) documented in this encounter Medications at Time of Discharge [...] + + + +---------+ + + | clopidogrel | Take 1 tablet by | 60 | 3 | 09/21/19 | | | (PLAVIX) 75 mg | mouth Daily. | tablet | | 20 | | | tablet | | | [...] + + + +---------+ + + | amiodarone | Take 1 tablet by | 60 | 3 | 09/24/19 | | | (PACERONE) 200 mg | mouth Daily. | tablet | | 20 | 0 | | tablet | | | | | | + + + +---------+ + + | amiodarone | Take 1 tablet by | 5 | 0 | 09/20/19 | | | (PACERONE) 400 MG | mouth 2 times daily | tablet | | 20 | 0 | | tablet | for 5 doses. | | | | | + + + +---------+ + + | warfarin | Take 5 mg by mouth | | 0 | | | | (COUMADIN) 5 mg | Daily. 5 mg on , | | | | 0 | | tablet | Sat, , Sat, | | | | | | | Sun | | | | | + + + +---------+ + + documented as of this encounter Progress Notes Medina Pitts RN - 2019 2:33 PM PSTDischarge packet given to patient. All questi ons answered. Pt will be transporting home with pt's and son. Pt sent with prescription s. hamMarky [facility] - 2019 1:54 PM PST Pharmacy Warfarin Monitoring: Deborah Thomason male 88 y.o., admitted for limb ischemia. 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 Per district sales manager reconciliation, warfarin was on hold since 09/03 in anti cipation of surgery. Patient transferred to the ICU 09/13 for hypotension and afib with RVR. INDICATION: Atrial Fibrillation INR GOAL: 2-3 HOME REGIMEN: 3 mg on Saturday/Saturday, 5 mg all other days (last dose prior to admission was on 09/03) OTHER ANTICOAGULATION: none DRUG INTERACTIONS: Amiodarone started 09/13 (strong inhibitor of warfarin metabolism. 50% do se reduction recommended after 7-14 days of concomitant therapy) Recent Labs Lab 09/20/19 0431 09/19/19 0420 09/18/19 0406 HGB 9.7* 9.7* 9.2* PLT 414* 353 308 INR 2.7 2.9 2.7 DATE 09/19 09/18 09/17 09/16 09/15 09/14 09/13 09/12 09/11 INR 2.7 2.9 2.7 2.2 1.6 1.5 1.3 1.2 1.2 1.2 Warfarin Dose Plan 2.5 mg 2 mg 5 mg 5 mg 5 mg 3 mg 5 mg 5 mg 3 mg - dose omitted Assessment: The INR is within the target range of 2-3 Due to drug interaction with amiodarone, reduced dose of 2.5 mg was given yesterday. Will g tanisha reduced dose today of 3 mg today (home regimen 5 mg). Plan: Warfarin 3 mg po today INR in am Pharmacy will continue to follow and modify therapy as indication. [facility]Y ENAMOR[facility]O [facility] 1:45 PM 2019 Kendell Nava PA - 2019 1:11 PM PSTFormatting of this note might be diff erent from the original. Service: Vascular Surgery Progress Note Hospital Day: LOS:9days Post-Op Day:6 ASSESSMENT&PLAN POD #6, S/p Lt LIA, EIAstent,Lt CFAendarterectomyforLLE CLI, transferredto ICU for management of hisCAFwithRVR, chronic diastolic CHF.Kailee weaned off 09/16. On Mido drine 15 mg tid for BP support.Afib rate controled with metoprolol and PO Amiodarone Warfa rin therapeutic INR 2.7.Lt groin incision c/d/i, no hematoma, staple in place, dressing cl grant dry. Lt foot well perfused with strong signal to DP/PT. For vascular stand point, alida ent was ready for discharge. We will sigh off to hospital medicine for medical management. A ppreciate hospitalist's work. Patient will f/u with Dr Garber in 2 weeks with VAS LLE at vis it. Cont current pain control Cont medical management per hospital medicine OOB UTC PT Encourage amb with a walker Plan to DC to SNF per PT recommendation SUBJECTIVE: Feeling good, wants to go home today OBJECTIVE Vital Signs: Vitals: 09/19/19 0748 BP: 119/70 Pulse: 77 Resp: 16 Temp: 36.9 C (98.5 F) Physical Exam Gen: AAO X3, HEENT: TANK, EOMI Neck: Supple, Lungs:unlabored breath Heart:Irreg irreg, rate controlled 80s-90s,PP: strong signal to Lt DPstrong DP, ok PT s ignals. Abd: BS present, NT/ND Ext:BLEedemaresolved. left groin incisionc/d/i. Dressing clean dry Neuro: CN2-12 intact, Motor and sensation intact, No focal deficit OBJECTIVE Vital Signs: Vitals: 09/20/19 1124 BP: 95/57 Pulse: 63 Resp: 22 Temp: 36.9 C (98.5 F) Physical Exam Constitutional: Well nourished, no signs of distress HENT: Non icteric sclerae, oropharynx clear. Normocephalic and atraumatic. Cardiovascular: Normal rate, regular rhythm Pulmonary/Chest: No respiratory distress. Abdominal: Soft. No abdominal distension or tenderness. No abdominal pulsatile mass noted. Musculoskeletal: Normal range of motion. No evidence of arthritis. Extremities: No edema, cyanosis or clubbing. Neurological: Alert and oriented. No muscle weakness and normal gait. VASCULAR: Palpable femoral pulse bilaterally, palpable popliteal pulse, and palpable pedal pulse bilaterally. Palpable bilateral radial and brachial pulses. Labs: Results for orders placed or performed during the hospital encounter of 09/11/19 CBC with Differential Result Value Ref Range WBC 7.94 3.80 - 11.00 K/uL RBC 3.26 (L) 4.20 - 5.70 M/uL Hemoglobin 9.7 (L) 13.2 - 17.0 g/dL Hematocrit 29.1 (L) 39.0 - 50.0 % MCV 89.3 80.0 - 100.0 fl MCH 29.8 27.0 - 34.0 pg MCHC 33.3 32.0 - 35.5 g/dL RDW-SD 50.2 37 - 53 fl Platelet Count 414 (H) 150 - 400 K/uL MPV 9.7 fl Diff Type AUTOMATED % nRBC 0.0 0 /100WBC % Neutrophils 71.90 % IMMATURE GRANULOCYTE 0.60 % % Lymphocytes 7.60 % Monocyte % 9.90 % Eosinophils % 9.40 % Basophils % 0.60 % Neutrophils, Absolute 5.70 1.90 - 7.40 K/uL IMMATURE GRANS AB 0.05 0.00 - 0.07 K/uL Absolute Lymphocytes 0.60 (L) 1.00 - 3.90 K/uL Absolute Monocytes 0.79 0.00 - 0.80 K/uL Eosinophils, Absolute 0.75 (H) 0.00 - 0.50 K/uL Basophils, Absolute 0.05 0.00 - 0.10 K/uL Results for orders placed or performed during the hospital encounter of 09/11/19 Comprehensive Metabolic Panel Result Value Ref Range Na 134 (L) 135 - 145 mmol/L K 4.3 3.5 - 4.9 mmol/L Cl 103 99 - 109 mmol/L CO2 25 23 - 32 mmol/L Anion Gap 10 5 - 20 mmol/L Glucose 90 65 - 99 mg/dL BUN 18 8 - 25 mg/dL Creatinine 0.91 0.70 - 1.30 mg/dL BUN/Creatinine Ratio 20 Calcium 9.1 8.5 - 10.5 mg/dL Protein, Total 5.5 (L) 6.3 - 8.2 g/dL Albumin 3.2 (L) 3.3 - 4.8 g/dL Globulin 2.3 1.3 - 4.9 g/dL A/G Ratio 1.4 1.0 - 2.4 BILIRUBIN, TOTAL 0.4 0.1 - 1.5 mg/dL ALK PHOS 189 (H) 35 - 115 U/L AST 44 10 - 45 U/L ALT 35 10 - 65 U/L Estimated GFR >60 >60 mL/min/1.73m2 Images: No results found. PROBLEM LIST Patient Active Problem List Diagnosis Date Noted POA Atrial fibrillation with RVR 09/13/2019 No Postprocedural hypotension 09/13/2019 No Chronic diastolic heart failure 09/11/2019 Yes Stage 3 chronic kidney disease 09/11/2019 Unknown Chronic anemia 09/11/2019 Yes PAD (peripheral artery disease) 09/02/2019 Yes Bilateral carotid artery stenosis 06/10/2019 Yes Interstitial lung disease 03/12/2018 Unknown Subclavian steal syndrome 02/13/2018 Unknown Atopic dermatitis 02/06/2018 Unknown PVD (peripheral vascular disease) 02/06/2018 Yes Hypotension 02/06/2018 Unknown Chronic atrial fibrillation 02/02/2018 Yes 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 Blood pressure run in the high 70s-80s, but is asymptomatic, repeat check w as 99/57, will continue to monitor. He denies pain and is adamant to going home tomorrow. It was explained to him that he may need physical therapy for several days for strengthtening prior to going home and a placement is still in the process. He is settled back in bed, rest ing and in good spirits. No other complaints at this time. VS remained stable, hourly rounding has been uneventful. Patient got agitated this morning wanting to get out of bed and wanting to go home. This RN phoned his regarding this and the was informed of the current plan which is to fi nd a SNF placement for the patient. Pt.'s spouse is well aware of the plan and is going to c ome visit the patient today. Bedside report given to SANDY Haney who is to assume care. Chart check complete. Jenny Marie RN hamMarky [facility] - 09/19/2019 2:09 PM PST Pharmacy Warfarin Monitoring: Deborah Thomason male 88 y.o., admitted for limb ischemia. 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 Per district sales manager reconciliation, warfarin was on hold since 09/03 in anti cipation of surgery. Patient transferred to the ICU 09/13 for hypotension and afib with RVR. INDICATION: Atrial Fibrillation INR GOAL: 2-3 HOME REGIMEN: 3 mg on Saturday/Saturday, 5 mg all other days (last dose prior to admission was on 09/03) OTHER ANTICOAGULATION: none DRUG INTERACTIONS: Amiodarone started 09/13 (strong inhibitor of warfarin metabolism. 50% do se reduction recommended after 7-14 days of concomitant therapy) Recent Labs Lab 09/19/19 0420 09/18/19 0406 09/17/19 0438 HGB 9.7* 9.2* 9.3* PLT 353 308 226 INR 2.9 2.7 2.2 DATE 09/18 09/17 09/16 09/15 09/14 09/13 09/12 09/11 INR 2.9 2.7 2.2 1.6 1.5 1.3 1.2 1.2 1.2 Warfarin Dose Planned 2.5 mg 2 mg 5 mg 5 mg 5 mg 3 mg 5 mg 5 mg 3 mg - dose omitted Assessment: The INR is within the target range of 2-3 Due to drug interaction with amiodarone, reduced dose of 2 mg was given yesterday. Will giv e reduced dose today of 2.5 mg today (home regimen 5 mg). Plan: Warfarin 2.5 mg po today INR in am Pharmacy will continue to follow and modify therapy as indication. MARKY ENAMORADO RPH 2:00 PM 09/19/2019 Kendell Nava PA - 09/19/2019 8:26 AM PSTFormatting of this note might be dif ferent from the original. Service: Vascular Surgery Progress Note Hospital Day: LOS: 8days Post-Op Day:5 ASSESSMENT&PLAN POD #5, S/p Lt LIA, EIAstent,Lt CFAendarterectomyforLLE CLI, transferredto ICU for management of his CAF withRVR, chronic diastolic CHF. Kailee weaned off 09/16. On Midodri ne 15 mg tid for BP support. Afib with rate controled with PO Amiodarone Warfarin therapeut ic. Lt groin incision c/d/i, no hematoma, staple in place, dressing clean dry. Lt foot well perfused with strong signal to DP and ok to/PT. For vascular stand point, patient was ready for discharge. We will sigh off to hospital medicine for medical management. Appreciate dinah garcía's work. Patient will f/u with Dr Garber in 2 weeks with VAS LLE at visit. Cont current pain control Cont current medical management per hospital medicine PT Encourage amb with a walker SUBJECTIVE: Feels better overall. Leg edema resolving OBJECTIVE Vital Signs: Vitals: 09/19/19 0748 BP: 119/70 Pulse: 77 Resp: 16 Temp: 36.9 C (98.5 F) Physical Exam Gen: AAO X3 HEENT: TANK, EOMI Neck: Supple, Lungs:unlabored breath Heart:Irreg irreg, rate controlled 80s-90s,PP: strong signal to Lt DPstrong DP, ok PT s ignals. Abd: BS present, NT/ND Ext: BLE edema resolved. left groin incision c/d/i. Dressing clean dry Neuro: CN2-12 intact, Motor and sensation intact, No focal deficit Labs: Results for orders placed or performed during the hospital encounter of 09/11/19 CBC with Differential Result Value Ref Range WBC 7.34 3.80 - 11.00 K/uL RBC 3.19 (L) 4.20 - 5.70 M/uL Hemoglobin 9.7 (L) 13.2 - 17.0 g/dL Hematocrit 28.4 (L) 39.0 - 50.0 % MCV 89.0 80.0 - 100.0 fl MCH 30.4 27.0 - 34.0 pg MCHC 34.2 32.0 - 35.5 g/dL RDW-SD 49.5 37 - 53 fl Platelet Count 353 150 - 400 K/uL MPV 9.8 fl Diff Type AUTOMATED % nRBC 0.0 0 /100WBC % Neutrophils 69.70 % IMMATURE GRANULOCYTE 0.80 % % Lymphocytes 8.30 % Monocyte % 10.20 % Eosinophils % 10.20 % Basophils % 0.80 % Neutrophils, Absolute 5.11 1.90 - 7.40 K/uL IMMATURE GRANS AB 0.06 0.00 - 0.07 K/uL Absolute Lymphocytes 0.61 (L) 1.00 - 3.90 K/uL Absolute Monocytes 0.75 0.00 - 0.80 K/uL Eosinophils, Absolute 0.75 (H) 0.00 - 0.50 K/uL Basophils, Absolute 0.06 0.00 - 0.10 K/uL Results for orders placed or performed during the hospital encounter of 09/11/19 Comprehensive Metabolic Panel Result Value Ref Range Na 135 135 - 145 mmol/L K 3.8 3.5 - 4.9 mmol/L Cl 101 99 - 109 mmol/L CO2 27 23 - 32 mmol/L Anion Gap 11 5 - 20 mmol/L Glucose 77 65 - 99 mg/dL BUN 17 8 - 25 mg/dL Creatinine 0.87 0.70 - 1.30 mg/dL BUN/Creatinine Ratio 20 Calcium 8.7 8.5 - 10.5 mg/dL Protein, Total 5.3 (L) 6.3 - 8.2 g/dL Albumin 3.0 (L) 3.3 - 4.8 g/dL Globulin 2.3 1.3 - 4.9 g/dL A/G Ratio 1.3 1.0 - 2.4 BILIRUBIN, TOTAL 0.4 0.1 - 1.5 mg/dL ALK PHOS 186 (H) 35 - 115 U/L AST 42 10 - 45 U/L ALT 27 10 - 65 U/L Estimated GFR >60 >60 mL/min/1.73m2 Images: No results found. PROBLEM LIST Patient Active Problem List Diagnosis Date Noted POA Atrial fibrillation with RVR 09/13/2019 No Postprocedural hypotension 09/13/2019 No Chronic diastolic heart failure 09/11/2019 Yes Stage 3 chronic kidney disease 09/11/2019 Unknown Chronic anemia 09/11/2019 Yes PAD (peripheral artery disease) 09/02/2019 Yes Bilateral carotid artery stenosis 06/10/2019 Yes Interstitial lung disease 03/12/2018 Unknown Subclavian steal syndrome 02/13/2018 Unknown Atopic dermatitis 02/06/2018 Unknown PVD (peripheral vascular disease) 02/06/2018 Yes Hypotension 02/06/2018 Unknown Chronic atrial fibrillation 02/02/2018 Yes Squamous cell carcinoma of upper extremity 02/02/2018 Unknown Essential hypertension 01/30/2018 Yes Benign prostatic hyperplasia with lower urinary tract symptoms 01/07/2017 Unknown Anticoagulant long-term use 12/19/2016 Unknown Femur fracture, left 12/18/2016 Unknown Femur fracture, right 12/18/2016 Unknown Code Status: full JOSÉ Mooney, PALloydC Vascular Surgery Thor Esqueda MD - 0 09/19/2019 7:56 AM PST Adult Hospitalist Progress Note Hospital Day: 8 Patient Summary: Transfer note from ICU:"Patient Summary: The patient is a 88 y.o. male with significant pa st medical history of atrial fib/flutter on Coumadin, bilateral carotid artery disease with previous R carotid endarterectomy, CVA (without residual deficit), PVD, and CAD who came to the hospital on 09/11 for intervention by vascular surgery r/t critical ischemia of his LLE. Today, we were asked to evaluate the patient as he had hypotension and rapid atrial fib int ermittently since his L femoral endarterectomy by Dr. Garber on 09/11/19. Currently, his ra te is in the 120s. His systolic BP was as low as 70 this morning. Due to need for increase d pressor support and titration of rate-controlling medications, patient was transferred to the ICU for further management. ICU Timeline: 09/14: Kailee weaned and turned off. BP tolerated. Amio 0.5 with good rate control. Continue s on Cefazolin 09/15: Cefazolin stopped. BP required pressors 09/16: On amiodarone for rate control, phenylephrine for BP 09/17: Briefly on phenylephrine for BP. Events Overnight: Comfortable. Off pressors over night. " SUBJECTIVE -88-year-old male Hx of chronic atrial flutter on Coumadin, coronary artery disease, pao stolic heart failure, CVA, peripheral vascular disease and bilateral carotid artery stenosis (history of right carotid endarterectomy), who was admitted on 09/11/2019 with left lower ex tremity critical limb ischemia with a nonhealing wound, underwent left femoral endarterectom y, angioplasty and stent by Dr. Garber. Post- operatively patient was noted to be hypotensi ve (systolic blood pressure in the 90s) requiring Kailee-Synephrine drip, patient developed rap id ventricular rate, subsequently transferred to the intensive care unit on 09/13/2019 for am iodarone loading per cardiology recommendation, received Lovenox/Coumadin bridging. Patient required persistent pressor support, transitioned to midodrine for BP control, and transiti on to p.o. amiodarone 400 twice daily. He did develop signs of volume overload required diu resis with furosemide. Patient subsequently off pressors for approximately 24 hours and transferred to the [facility] on 09/18/2019. Physical therapy recommending SNF, patient agreeable No acute events overnight, continues to be in atrial fibrillation with good rate control 70 -80's, blood pressures have been stable 91-119 mmHg. Patient has no complaints he is feeling well, denies any leg pain, extremities are warm OBJECTIVE Vital Signs: BP 119/70 | Pulse 77 | Temp 36.9 C (98.5 F) (Oral) | Resp 16 | Ht 1.727 m (5' 8") | Wt 73.9 kg (163 lb) | SpO2 96% | BMI 24.78 kg/m Physical Exam Vitals signs and nursing note reviewed. Constitutional: General: He is not in acute distress. Appearance: He is not toxic-appearing. Comments: Awake alert, hard of hearing. Seated in the chair, on room air, no acute distress HENT: Mouth/Throat: Mouth: Mucous membranes are moist. Cardiovascular: Rate and Rhythm: Rhythm irregular. Pulmonary: Effort: Pulmonary effort is normal. No respiratory distress. Breath sounds: No wheezing or rales. Abdominal: General: Abdomen is flat. Bowel sounds are normal. Genitourinary: Comments: Left inguinal surgical site healing well Musculoskeletal: Comments: +1 pitting edema bilateral ankles Extremities are warm bilaterally Left foot some scaling of the skin. There is a small chronic ulcer lateral foot Neurological: General: No focal deficit present. Mental Status: He is alert. Psychiatric: Mood and Affect: Mood normal. Thought Content: Thought content normal. DATA Recent Results (from the past 24 hour(s)) Protime INR Result Value Ref Range INR 2.9 Comprehensive Metabolic Panel Result Value Ref Range Na 135 135 - 145 mmol/L K 3.8 3.5 - 4.9 mmol/L Cl 101 99 - 109 mmol/L CO2 27 23 - 32 mmol/L Anion Gap 11 5 - 20 mmol/L Glucose 77 65 - 99 mg/dL BUN 17 8 - 25 mg/dL Creatinine 0.87 0.70 - 1.30 mg/dL BUN/Creatinine Ratio 20 Calcium 8.7 8.5 - 10.5 mg/dL Protein, Total 5.3 (L) 6.3 - 8.2 g/dL Albumin 3.0 (L) 3.3 - 4.8 g/dL Globulin 2.3 1.3 - 4.9 g/dL A/G Ratio 1.3 1.0 - 2.4 BILIRUBIN, TOTAL 0.4 0.1 - 1.5 mg/dL ALK PHOS 186 (H) 35 - 115 U/L AST 42 10 - 45 U/L ALT 27 10 - 65 U/L Estimated GFR >60 >60 mL/min/1.73m2 CBC with Differential Result Value Ref Range WBC 7.34 3.80 - 11.00 K/uL RBC 3.19 (L) 4.20 - 5.70 M/uL Hemoglobin 9.7 (L) 13.2 - 17.0 g/dL Hematocrit 28.4 (L) 39.0 - 50.0 % MCV 89.0 80.0 - 100.0 fl MCH 30.4 27.0 - 34.0 pg MCHC 34.2 32.0 - 35.5 g/dL RDW-SD 49.5 37 - 53 fl Platelet Count 353 150 - 400 K/uL MPV 9.8 fl Diff Type AUTOMATED % nRBC 0.0 0 /100WBC % Neutrophils 69.70 % IMMATURE GRANULOCYTE 0.80 % % Lymphocytes 8.30 % Monocyte % 10.20 % Eosinophils % 10.20 % Basophils % 0.80 % Neutrophils, Absolute 5.11 1.90 - 7.40 K/uL IMMATURE GRANS AB 0.06 0.00 - 0.07 K/uL Absolute Lymphocytes 0.61 (L) 1.00 - 3.90 K/uL Absolute Monocytes 0.75 0.00 - 0.80 K/uL Eosinophils, Absolute 0.75 (H) 0.00 - 0.50 K/uL Basophils, Absolute 0.06 0.00 - 0.10 K/uL Magnesium Result Value Ref Range Magnesium 1.7 1.7 - 2.4 mg/dL DIAGNOSTIC IMAGING RESULTS No results found. PROBLEM LIST Principal Problem: Atrial fibrillation with RVR Active Problems: Chronic atrial fibrillation Essential hypertension PVD (peripheral vascular disease) Bilateral carotid artery stenosis PAD (peripheral artery disease) Chronic diastolic heart failure Chronic anemia Postprocedural hypotension Resolved Problems: Cellulitis of left thigh IMPRESSION/PLAN: #1. Postoperative hypotension -Patient with underlying diastolic congestive heart failure (echocardiogram 09/14/2019; EF 5 0 to 55%, severely dilated left and right atrium, pulmonary hypertension 50 mmHg), chronic a trial fibrillation who developed RVR -Off Levophed for 48 hours now -Systolic blood pressures have ranged from 90 to 120 mmHg -Midodrine 15 mg TiD started on -Review of prior clinic records it seems a systolic blood pressures are typically low david l, 90s - 130 mmHg -Stable #2. Acute on chronic diastolic congestive heart failure -Postoperative volume overload, required light diuresis -Currently looks euvolemic -Received 20 mg IV Lasix on -I's and O's; +7 L -Holding Lopressor 25 twice daily due to resolving hypotension -Clinically looks euvolemic, will hold regular p.o.20 mg Lasix for today # 3. 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 Chronic atrial fibrillation with RVR -Currently on amiodarone 400 mg every 12 for 1 week (started 09/15/2019) followed by 200 mg daily -Digoxin-25 mcg daily (serum digoxin level 0.8 09/14/2019) -Holding beta-blockers (Lopressor 25 twice daily) pending BP -Resumed warfarin, INR 2.9, as per pharmacy -Warfarin decreased to 2 mg #5. Normocytic anemia -Stable, hemoglobin 9.7 Thor Yang MD 7:56 AM 09/19/2019 Portions of this chart may have been created with [employer] voice recognition software. Occasi onal wrong-word or sound-alike substitutions may have occurred due to the inherent ness itations of voice recognition software. Please read the chart carefully and recognize, using context, where these substitutions have occurred Jenny Vazquez R N - 09/18/2019 9:34 PM PSTReceived report from SANDY Hendrix. Patient transported to floor via wheelchair to room 9103. VSS on transfer. Assumed care of patient. Patient denies pain, puls es check with doppler. Femoral site checked, CDI. No new complaints. Will continue to monito r. SBP in the 90s -110s throughout the night. Hourly rounding uneventful. Jenny Marie RN Osmin Angel MD - 09/18/2019 2:44 PM PSTVascular Surgery 09/18/2019 88 yo male with LLE CLI s/p iliac stents, femoral endarterectomy. Doing much better. Feel s better overall. Still with significant edema. Pain ok. Working with PT. Exam Gen: alert, lying in bed Resp: unlabored CV: regular Ext: 2+ edema BLE, left groin incision c/d/I, well approximated with samy, no erythema o r drainage, dry small ~5 mm wound on lateral 5th left digit, no evidence of infection. Vasc: strong DP, ok PT signals. A/P Slowly improving as expected. Appreciate all the help from medicine, cardiology. Overall much improved. Wounds healing well. Labs stable. Needs continue therapy, likely SNF. Susannah uld continue warfarin and plavix. Dr. Jaeger will be covering over the weekend. Will call wit h questions or concerns. Osmin Gabrer MD Vascular Surgery Anika Esqueda MD - 09/18/2019 2:11 PM PSTFormatting of this note might be different from the or iginal. Adult Hospitalist Progress Note Hospital Day: 7 Patient Summary: Transfer note from ICU:"Patient Summary: The patient is a 88 y.o. male with significant pa st medical history of atrial fib/flutter on Coumadin, bilateral carotid artery disease with previous R carotid endarterectomy, CVA (without residual deficit), PVD, and CAD who came to the hospital on 09/11 for intervention by vascular surgery r/t critical ischemia of his LLE. Today, we were asked to evaluate the patient as he had hypotension and rapid atrial fib int ermittently since his L femoral endarterectomy by Dr. Garber on 09/11/19. Currently, his ra te is in the 120s. His systolic BP was as low as 70 this morning. Due to need for increase d pressor support and titration of rate-controlling medications, patient was transferred to the ICU for further management. ICU Timeline: 09/14: Kailee weaned and turned off. BP tolerated. Amio 0.5 with good rate control. Continue s on Cefazolin 09/15: Cefazolin stopped. BP required pressors 09/16: On amiodarone for rate control, phenylephrine for BP 09/17: Briefly on phenylephrine for BP. Events Overnight: Comfortable. Off pressors over night. " SUBJECTIVE -88-year-old male chronic atrial flutter on Coumadin, coronary artery disease, diastolic heart failure, CVA, peripheral vascular disease and bilateral carotid artery stenosis (hist ory of right carotid endarterectomy), who was admitted on 09/11/2019 left lower extremity cri tical limb ischemia with a nonhealing wound, underwent left femoral endarterectomy, angiopla sty and stent by Dr. Garber. Post- operatively patient was noted to be hypotensive (systoli c blood pressure in the 90s) requiring Kailee-Synephrine drip, patient developed rapid ventricu lar rate, subsequently transferred to the intensive care unit on 09/13/2019 for amiodarone lo ading per cardiology recommendation, received Lovenox/Coumadin bridging. Patient required p ersistent pressor support, transitioned to midodrine for BP control, and transition to p.o. amiodarone 400 twice daily. He did develop signs of volume overload required diuresis with furosemide. Patient subsequently off pressors for approximately 24 hours [facility] OBJECTIVE Vital Signs: BP 134/62 | Pulse 78 | Temp 36.7 C (98 F) (Oral) | Resp 15 | Ht 1.727 m (5' 8") | Wt 83 kg (182 lb 15.7 oz) | SpO2 95% | BMI 27.82 kg/m Physical Exam Vitals signs and nursing note reviewed. Constitutional: General: He is not in acute distress. Appearance: He is not toxic-appearing. Comments: Awake alert, hard of hearing. Seated in the chair, on room air, no acute distress HENT: Mouth/Throat: Mouth: Mucous membranes are moist. Cardiovascular: Rate and Rhythm: Rhythm irregular. Pulmonary: Effort: Pulmonary effort is normal. No respiratory distress. Breath sounds: No wheezing or rales. Abdominal: General: Abdomen is flat. Bowel sounds are normal. Genitourinary: Comments: Left inguinal surgical site healing well Musculoskeletal: Comments: +1 pitting edema bilateral ankles Extremities are warm bilaterally Left foot some scaling of the skin. There is a small chronic ulcer lateral foot Neurological: General: No focal deficit present. Mental Status: He is alert. Psychiatric: Mood and Affect: Mood normal. Thought Content: Thought content normal. DATA Recent Results (from the past 24 hour(s)) Potassium Result Value Ref Range K 3.8 3.5 - 4.9 mmol/L Phosphorus Result Value Ref Range Phosphorus 2.4 2.3 - 4.8 mg/dL Magnesium Result Value Ref Range Magnesium 2.0 1.7 - 2.4 mg/dL Protime INR Result Value Ref Range INR 2.7 Comprehensive Metabolic Panel Result Value Ref Range Na 135 135 - 145 mmol/L K 3.8 3.5 - 4.9 mmol/L Cl 102 99 - 109 mmol/L CO2 26 23 - 32 mmol/L Anion Gap 11 5 - 20 mmol/L Glucose 91 65 - 99 mg/dL BUN 18 8 - 25 mg/dL Creatinine 0.97 0.70 - 1.30 mg/dL BUN/Creatinine Ratio 19 Calcium 9.1 8.5 - 10.5 mg/dL Protein, Total 5.2 (L) 6.3 - 8.2 g/dL Albumin 3.3 3.3 - 4.8 g/dL Globulin 1.9 1.3 - 4.9 g/dL A/G Ratio 1.7 1.0 - 2.4 BILIRUBIN, TOTAL 0.5 0.1 - 1.5 mg/dL ALK PHOS 202 (H) 35 - 115 U/L AST 30 10 - 45 U/L ALT 18 10 - 65 U/L Estimated GFR >60 >60 mL/min/1.73m2 CBC with Differential Result Value Ref Range WBC 7.61 3.80 - 11.00 K/uL RBC 3.08 (L) 4.20 - 5.70 M/uL Hemoglobin 9.2 (L) 13.2 - 17.0 g/dL Hematocrit 27.5 (L) 39.0 - 50.0 % MCV 89.3 80.0 - 100.0 fl MCH 29.9 27.0 - 34.0 pg MCHC 33.5 32.0 - 35.5 g/dL RDW-SD 50.4 37 - 53 fl Platelet Count 308 150 - 400 K/uL MPV 10.0 fl Diff Type AUTOMATED % nRBC 0.0 0 /100WBC % Neutrophils 74.00 % IMMATURE GRANULOCYTE 0.50 % % Lymphocytes 6.80 % Monocyte % 10.60 % Eosinophils % 7.40 % Basophils % 0.70 % Neutrophils, Absolute 5.63 1.90 - 7.40 K/uL IMMATURE GRANS AB 0.04 0.00 - 0.07 K/uL Absolute Lymphocytes 0.52 (L) 1.00 - 3.90 K/uL Absolute Monocytes 0.81 (H) 0.00 - 0.80 K/uL Eosinophils, Absolute 0.56 (H) 0.00 - 0.50 K/uL Basophils, Absolute 0.05 0.00 - 0.10 K/uL Magnesium Result Value Ref Range Magnesium 1.9 1.7 - 2.4 mg/dL DIAGNOSTIC IMAGING RESULTS No results found. PROBLEM LIST Principal Problem: Atrial fibrillation with RVR Active Problems: Chronic atrial fibrillation Essential hypertension PVD (peripheral vascular disease) Bilateral carotid artery stenosis PAD (peripheral artery disease) Chronic diastolic heart failure Chronic anemia Postprocedural hypotension Resolved Problems: Cellulitis of left thigh IMPRESSION/PLAN: #1. Postoperative hypotension -Patient with underlying diastolic congestive heart failure (echocardiogram 09/14/2019; EF 5 0 to 55%, severely dilated left and right atrium, pulmonary hypertension 50 mmHg), chronic a trial fibrillation who developed RVR -Off Levophed for 24 hours now -Systolic blood pressures have ranged from 80 to 134 mmHg -Midodrine 15 mg TiD started on -Review of prior clinic records it seems a systolic blood pressures are typically low david l, 90s - 130 mmHg #2. Acute on chronic diastolic congestive heart failure -Postoperative volume overload, required light diuresis -Currently looks euvolemic -Received 20 mg IV Lasix x1 today -I's and O's; +7 L -Holding Lopressor 25 twice daily due to resolving hypotension # 3. Peripheral vascular disease -Left lower extremity status post iliac stent, femoral endarterectomy -Continue Plavix -PT, likely will require SNF #4. Chronic atrial fibrillation with RVR -Currently on amiodarone 400 mg every 12 for 1 week (started 09/15/2019) followed by 200 mg daily -Digoxin-25 mcg daily (serum digoxin level 0.8 09/14/2019) -Holding beta-blockers (Lopressor 25 twice daily) pending BP -Resumed warfarin, INR 2.7 #5. Normocytic anemia -Stable, hemoglobin 9.2 Thor Yang MD 2:11 PM 09/18/2019 Portions of this chart may have been created with [employer] voice recognition software. Occasi onal wrong-word or sound-alike substitutions may have occurred due to the inherent ness itations of voice recognition software. Please read the chart carefully and recognize, using context, where these substitutions have occurred Anurag Amato MD - 09/18/2019 1:24 PM PST Service: Cardiology Progress Note Hospital Day: LOS: 7 days Post-Op Day: 2 Days Post-Op SUBJECTIVE Patient Summary: 88 y.o. male with significant past medical history of AF on coumadin , CAD, HFpEF, HTN, PVD, bilateral carotid artery disease s/p right CEA, hx of CVA w/out resi dual deficit was admitted for limb ischemia. Patient has been following with vascular surger y for his PVD. On his last visit he presented with a nonhealing wound since. His last LE gamal ging study showed extremely diminished JEREMY and TBI values. Patient was admitted and underwen t today [employer] endarterectomy and angioplasty. EBL was 200-400ml. He was started neosynephrine intraop. Seen by the bedside no complaints. He is currently off phenylephrine. No chest pain, SOB, p alpitations. Is pending transfer to floor. Scheduled Medications [START ON 09/24/2019] amiodarone 200 mg Oral Daily amiodarone 400 mg Oral BID clopidogrel 75 mg Oral Daily digoxin 125 mcg Oral Daily docusate sodium 100 mg Oral BID midodrine 15 mg Oral TID Early polyethylene glycol 17 g Oral Daily potassium chloride 20 mEq Oral Daily tamsulosin 0.8 mg Oral Daily after breakfast tocopherol 400 Units Oral Daily warfarin 3 mg Oral Once per day on Sat warfarin 5 mg Oral Once per day on Sat Sat warfarin per pharmacy Other Pharmacy Consult Continuous Infusions PRN Medications bisacodyl, magnesium hydroxide, Magnesium replacement - NON ICU AND Magnesium AND m agnesium oxide AND magnesium sulfate AND magnesium sulfate, Potassium replacement - NON ICU AND Potassium AND potassium chloride AND potassium chloride AND pota ssium chloride IVPB (other volumes & diluents) AND potassium chloride IVPB (other volume s & diluents), senna, Phosphate Replacement - ICU AND sodium phosphate IVPB AND sodi um phosphate IVPB OBJECTIVE Vital Signs: BP 134/62 | Pulse 78 | Temp 36.7 C (98 F) (Oral) | Resp 15 | Ht 1.727 m (5' 8") | Wt 83 kg (182 lb 15.7 oz) | SpO2 95% | BMI 27.82 kg/m Intake/Output Summary (Last 24 hours) at 09/18/2019 1324 Last data filed at 09/18/2019 1252 Gross per 24 hour Intake 360 ml Output 2750 ml Net -2390 ml EXAM Constitutional: Well-developed. Neck: No JVD present. No thyromegaly present. Cardiovascular: Irregular rhythm, S1 normal and S2 normal. +ve sys murmur heard. Pulses: Radial pulses are feeble, left lower extremity groin is swollen with erhythema Pulmonary/Chest: Effort normal and breath sounds normal. No wheezes. No rales. Abdominal: Soft. No tenderness. Musculoskeletal: No edema. Neurological: Alert. No cranial nerve deficit. Skin: Warm and dry. DATA CBC: Lab Results Component Value Date WBC 7.61 09/18/2019 RBC 3.08 (L) 09/18/2019 HGB 9.2 (L) 09/18/2019 HCT 27.5 (L) 09/18/2019 MCV 89.3 09/18/2019 MCH 29.9 09/18/2019 MCHC 33.5 09/18/2019 PLT 308 09/18/2019 MPV 10.0 09/18/2019 DIFFTYPE AUTOMATED 09/18/2019 CMP: Lab Results Component Value Date NA 135 09/18/2019 K 3.8 09/18/2019 CL 102 09/18/2019 CO2 26 09/18/2019 ANIONGAP 11 09/18/2019 BUN 18 09/18/2019 GLOB 2.8 11/18/2017 AGRATIO 1.7 09/18/2019 BILITOT 1.0 01/01/2017 AST 30 09/18/2019 ALT 18 09/18/2019 EGFR >60 09/18/2019 CPK: No components found for: CKTOTAL Troponin I: No components found for: TROPONINI TSH: No results found for: TSH Lab Results Component Value Date BNP 693 (H) 01/02/2017 ASSESSMENT & PLAN Chronic atrial fibrillation with RVR in post op status- rate controlled currently Heart failure preserved LV systolic function Mild troponin elevation in the setting of tachyrhythmia, post op status likely from demand ischemia Severe PVD s/p left femoral enterectomy for critical limb ischemia Bilateral carotid disease with hx of right carotid endarterectomy Hx of CVA with no residual deficit COPD Former smoker Anemia- h/h stable currently Continue to trend H/H Lasix as needed Currently off pressors and hemodynamically stable HR well controlled Continue amiodarone to oral 400mg Q12hrs for one week(started 09/15/2019) followed by 200mg daily On digoxin, May add Metoprolol when he can tolerate and uptitrate as needed as BP can nicole ate Monitor and correct electrolytes to K > 4.0 and Mg > 2.0 Continue to monitor H/H On anticoagulation with coumadin(INR 2.7) Will sign off re-consult as needed Code Status: Full Code Anurag Villa MD miley, Jeramy Monroy MD - 09/18/2019 9:05 AM PSTFormatting of this note might be different from the origin [facility] Service: Report Manager Progress Note Deborah Barrettmichelle 88 y.o. Hospital Day: LOS: 7 days Post-Op Day: 7 Days Post-Op Consulting Physicians Treatment Team: Anurag Villa MD SUBJECTIVE Patient Summary:The patient is a88 y.o.malewith significant past medical history ofatrial fib/flutter on Coumadin, bilateral carotid artery disease with previous R carotid endarterectomy, CVA (without residual deficit), PVD, and CADwhocame to the hospital on 09/11 for intervention by vascular surgery r/t critical ischemia of his LLE. Today, we were asked to evaluate the patient as he had hypotension and rapid atrial fib intermittently sin ce his L femoral endarterectomy by Dr. Garber on 09/11/19. Currently, his rate is in the 1 20s. His systolic BP was as low as 70 this morning. Due to need for increased pressor kinney pport and titration of rate-controlling medications, patient was transferred to the ICU for further management. ICU Timeline: 09/14:Kailee weaned and turned off. BP tolerated. Amio 0.5 with good rate control. Cont inues on Cefazolin 09/15: Cefazolin stopped. BP required pressors 09/16: On amiodarone for rate control, phenylephrine for BP 09/17: Briefly on phenylephrine for BP. Events Overnight: Comfortable. Off pressors over night. SCHEDULED MEDICATIONS Reviewed. OBJECTIVE VITAL SIGNS Temp: [36.5 C (97.7 F)-36.8 C (98.3 F)] 36.7 C (98 F) Pulse: [70-139] 78 Resp: [15-20] 15 BP: (73-141)/(50-92) 105/61 Intake/Output Summary (Last 24 hours) at 09/18/2019 0905 Last data filed at 09/18/2019 0600 Gross per 24 hour Intake 360 ml Output 2250 ml Net -1890 ml EXAM GEN: awake, alert, oriented x3, NAD NEURO: PERRLA, EOMI, no facial asymmetry, moving all extremities HEENT: sclerae clear, nonicteric, oral mmm, pink, NECK: supple, trachea midline CV: irregular, peripheral pulses palpable, cap refill brisk LUNGS: clear b/l, no wheezing, rales or rhonchi, symmetric chest expansion, even/unlabored respirations ABD: soft, nondistended, nontender to palpation, no masses, no hepatosplenomegaly EXTR: no edema, clubbing or cyanosis SKIN: warm, dry, penis edematous, no erythema around R femoral surgical incision LINES/TUBES: PIV Diagnostic Studies: Available labs and images have been reviewed and will be addressed as indicated in the assessment and plan. PROBLEM LIST Principal Problem: Atrial fibrillation with RVR Active Problems: Chronic atrial fibrillation Essential hypertension PVD (peripheral vascular disease) Bilateral carotid artery stenosis PAD (peripheral artery disease) Chronic diastolic heart failure Chronic anemia Postprocedural hypotension Resolved Problems: Cellulitis of left thigh ASSESSMENT & PLAN NEURO: Bilateral carotid artery stenosis, s/p R CEA in remote history. CAM-ICU screening every shift. CV: Chronic atrial fib, now with RVR,Coumadin therapeutic He is on digoxin and metoprolol at home, and has labile low blood pressures. Unable to give metoprolol currently due to hypotension.Will continue metop if pressures improve. Amiodarone PO. Midodrine increased 15mg TID.Will transfer off floor today. Patient chronically runs low BP and has been asymptomatic during these episodes. Will sp eak with vascular for recommendations. Chronic diastolic heart failure. Lasix 20mg today. Good UOP. Peripheral vascular disease s/p femoral endarterectomy and angioplasty by vascular surge ry on 09/11. Continue Plavix, warfarin. PULM: No acute issues. Patient on room air and protecting airway. GI/NUTRITION: Diet:fat and cholesterol modified. RENAL/LYTES: Currently with normal creatinine andeGFR,but there is history of chronic kidney disease , stage III.lasix given with good UOP. History of retention. Velarde taken out. ID: Left groin surgical site/ upper thigh looks good.Afebrile, WBC wnl.No issues. MRSA negative in nares. HEME: Normocytic anemia. CBC daily. No leukocytosis. INR therapeutic. On Warfarin ENDO: No issues. MUSC/SKIN: Skin care and pressure ulcer prevention per nursing standards. PT/OT PROPHYLAXIS: Stress ulcer prophylaxis:N/A DVT prophylaxis:SCD's while in bed, Coumadin with INR goal 2-3 VAP:N/A Disposition:ICU plan ofcare as above. Code Status:Full Code Jeramy Chapa MD 09/18/2019 Dictation software, EdCaliber, was used which may contain error with similar sound words even after review. Portions of this chart may have been copied from previous notes for continuity of care. Associated attestation - Susanna Simon MD - 09/18/2019 12:50 PM PSTPlan of care disc ussed with Dr. Jeramy Chapa. I have seen and evaluated the patient independently. I agree with the physical examination and management as documented. Additionally, patient is awake, oriented, denies any pain. CV: irregularly irregular, rate controlled in the 70s Lungs: clear and no wheezing, unlabored respirations Abd: soft, nontender to palpation Ext: note of edema on the left groin anterior thigh - improved. Scrotal edema, trace lower extremity edema. Skin: Venous ulcers noted on the left foot Peripheral vascular disease status post femoral endarterectomy and angioplasty on September 11, 2019 - Completed jose-operative cefazolin. Continue Plavix. Hypotension. Requiring phenylephrine to keep MAP > 65. Decreasing phenylephrine requireme nts. Chronic atrial fibrillation -currently rate controlled, digoxin, amiodarone 400 mg BID x 7 days, then 200 mg daily. On midodrine for BP support. Anticoagulated with warfarin with th erapeutic INR. Cardiology following. Volume overload - continue gentle diureses with furosemide. Deconditioning. Continue to work with physical therapy. Mobilize as tolerated. Disposition: Stable for transfer to acute care. Off phenylephrine for greater than 24 hour s. Patient reports chronic hypotension. Susanna Simon MD Report Manager 09/18/2019 Please bill 40 minutes of critical care time spent evaluating the patient, reviewing the da ta and formulating a plan exclusive of procedures. Anurag Villa MD - 09/17/2019 5: 24 PM PST Service: Cardiology Progress Note Hospital Day: LOS: 6 days Post-Op Day: 2 Days Post-Op SUBJECTIVE Patient Summary: 88 y.o. male with significant past medical history of AF on coumadin , CAD, HFpEF, HTN, PVD, bilateral carotid artery disease s/p right CEA, hx of CVA w/out resi dual deficit was admitted for limb ischemia. Patient has been following with vascular surger y for his PVD. On his last visit he presented with a nonhealing wound since. His last LE gamal ging study showed extremely diminished JEREMY and TBI values. Patient was admitted and underwen t today [employer] endarterectomy and angioplasty. EBL was 200-400ml. He was started neosynephrine intraop. Seen by the bedside no complaints. He is still needing phenylephrine intermittently. No dionicio st pain, SOB, palpitations. Off amiodarone dip. INR today 2.2. Scheduled Medications [START ON 09/24/2019] amiodarone 200 mg Oral Daily amiodarone 400 mg Oral BID clopidogrel 75 mg Oral Daily digoxin 125 mcg Oral Daily docusate sodium 100 mg Oral BID midodrine 15 mg Oral TID Early polyethylene glycol 17 g Oral Daily potassium chloride 20 mEq Oral Daily tamsulosin 0.8 mg Oral Daily after breakfast tocopherol 400 Units Oral Daily warfarin 3 mg Oral Once per day on Sat warfarin 5 mg Oral Once per day on Sat Sat warfarin per pharmacy Other Pharmacy Consult Continuous Infusions phenylephrine 10 mcg/min (09/17/19 1012) PRN Medications bisacodyl, magnesium hydroxide, Magnesium replacement - NON ICU AND Magnesium AND m agnesium oxide AND magnesium sulfate AND magnesium sulfate, oxyCODONE, Potassium rep lacement - NON ICU AND Potassium AND potassium chloride AND potassium chloride * *AND potassium chloride IVPB (other volumes & diluents) AND potassium chloride IVPB (o ther volumes & diluents), senna, Phosphate Replacement - ICU AND sodium phosphate IVPB * *AND sodium phosphate IVPB OBJECTIVE Vital Signs: BP 106/69 | Pulse 87 | Temp 36.8 C (98.2 F) (Oral) | Resp 20 | Ht 1.727 m (5' 8") | Wt 83 kg (182 lb 15.7 oz) | SpO2 96% | BMI 27.82 kg/m Intake/Output Summary (Last 24 hours) at 09/17/2019 1724 Last data filed at 09/17/2019 1700 Gross per 24 hour Intake 1499 ml Output 2038 ml Net -539 ml EXAM Constitutional: Well-developed. Neck: No JVD present. No thyromegaly present. Cardiovascular: Irregular rhythm, S1 normal and S2 normal. +ve sys murmur heard. Pulses: Radial pulses are feeble, left lower extremity groin is swollen with erhythema Pulmonary/Chest: Effort normal and breath sounds normal. No wheezes. No rales. Abdominal: Soft. No tenderness. Musculoskeletal: No edema. Neurological: Alert. No cranial nerve deficit. Skin: Warm and dry. DATA CBC: Lab Results Component Value Date WBC 7.74 09/17/2019 RBC 3.07 (L) 09/17/2019 HGB 9.3 (L) 09/17/2019 HCT 27.6 (L) 09/17/2019 MCV 89.9 09/17/2019 MCH 30.3 09/17/2019 MCHC 33.7 09/17/2019 PLT 226 09/17/2019 MPV 10.2 09/17/2019 DIFFTYPE AUTOMATED 09/17/2019 CMP: Lab Results Component Value Date NA 134 (L) 09/17/2019 K 3.7 09/17/2019 CL 103 09/17/2019 CO2 25 09/17/2019 ANIONGAP 10 09/17/2019 BUN 16 09/17/2019 GLOB 2.8 11/18/2017 AGRATIO 1.8 09/17/2019 BILITOT 1.0 01/01/2017 AST 27 09/17/2019 ALT 14 09/17/2019 EGFR >60 09/17/2019 CPK: No components found for: CKTOTAL Troponin I: No components found for: TROPONINI TSH: No results found for: TSH Lab Results Component Value Date BNP 693 (H) 01/02/2017 ASSESSMENT & PLAN Chronic atrial fibrillation with RVR in post op status- rate controlled on amiodarone Heart failure preserved LV systolic function Mild troponin elevation in the setting of tachyrhythmia, post op status likely from demand ischemia Severe PVD s/p left femoral enterectomy for critical limb ischemia Bilateral carotid disease with hx of right carotid endarterectomy Hx of CVA with no residual deficit COPD Former smoker Anemia- steady drop in H/H- ? Dilutional vs blood loss H/H further drop to 9.3/27.6<8.3/25. 3 from 8.9/27.4 (09/15)<9.6/29.5 (09/14) Continue to trend H/H Lasix as needed Pressors as needed- wean off phenylephrine as tolerated Continue amiodarone to oral 400mg Q12hrs for one week(started 09/15/2019) followed by 200mg daily On digoxin, May add Metoprolol when he can tolerate and uptitrate as needed as BP can nicole ate Monitor and correct electrolytes to K > 4.0 and Mg > 2.0 Continue to monitor H/H On anticoagulation with coumadin(INR 2.2) Code Status: Full Code Anurag Villa MD roctor, Elías Suarez, [facility] - 09/17/2019 2:53 PM PSTFormatting of this note might be different from the origi nal. Pharmacy Warfarin Monitoring: Deborah Thomason male 88 y.o., admitted for limb ischemia. 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 Per district sales manager reconciliation, warfarin was on hold since 09/03 in anti cipation of surgery. Patient transferred to the ICU 09/13 for hypotension and afib with RVR. INDICATION: Atrial Fibrillation INR GOAL: 2-3 HOME REGIMEN: 3 mg on Saturday/Saturday, 5 mg all other days (last dose prior to admission was on 09/03) OTHER ANTICOAGULATION: none DRUG INTERACTIONS: Amiodarone started 09/13 (strong inhibitor of warfarin metabolism. 50% do se reduction recommended after 7-14 days of concomitant therapy) PATIENT DIET: fat and cholesterol modified - eating 50-100% of meals Recent Labs Lab 09/17/19 0438 09/16/19 0411 09/15/19 0403 HGB 9.3* 8.3* 8.9* PLT 226 209 179 INR 2.2 1.6 1.4 DATE 09/17 09/16 09/15 09/14 09/13 09/12 09/11 INR 2.2 1.6 1.5 1.3 1.2 1.2 1.2 Warfarin Dose 5 mg planned 5 mg 5 mg 3 mg 5 mg 5 mg 3 mg - dose omitted Assessment: The INR is within the target range of 2-3 and bridge therapy was discontinued today. Patient remains in ICU and amiodarone transitioned from IV to PO. Drug interaction not expe cted to take effect for 7-14 days of concomitant therapy. Today is day 5. We will continue t o monitor for dose reduction. Plan: Warfarin 5 mg po today, per home regimen INR in am Pharmacy will continue to follow and modify therapy as indicated. Miesha Faust, PharmD, BCPS endell Robertson PA - 09/17/2019 1:20 PM PST Service: Vascular Surgery Progress Note Hospital Day: LOS: 6 days Post-Op Day: 3 ASSESSMENT & PLAN POD #3, S/p Lt LIA, EIA stent, Lt [employer] endarterectomy for LLE CLI, transferred to ICU for ma olya of his CAF with RVR, chronic diastolic CHF. Kailee weaned off 09/16. On Midodrine 10 mg tid for HD support. Amiodarone switched to PO rate controlled. Warfarin therapeutic. But SB P down to 70s this morning. Kailee restarted. Midodrine titrated up to 15mg tid. Lasix 20 mg x 1 yesterday. Pt c/o worsening BLE edema with knee pain. Lt groin incision c/d/i, staple in place, no hematoma. But Lt thigh edema is significant beside BLE pitting edema Lt foot wel l perfused with strong signal to DP/PT. H/H 9.3/.6 Will d/w Dr Garber. Cont current pain control Cont current medical management per cardiology and intensive care Keep Velarde in for HD monitoring per ICU OOB UTC PT eval and Tx Cardiology and ICU help appreciated SUBJECTIVE: Worsening BLE swelling and knee pain OBJECTIVE Vital Signs: Vitals: 09/17/19 1315 BP: 112/63 Pulse: 83 Resp: Temp: Physical Exam Gen: AAO X3 HEENT: TANK, EOMI Neck: Supple, Lungs: unlabored breath Heart: Irreg irreg, rate controlled 80s-90s, PP: strong signal to Lt DP/PT and Rt DP/PT Abd: BS present, NT/ND Ext: Worsening bk BLE edema and Lt thigh edema with mild erythema, left groin incision c/d/ i. No hematoma. Scrotal/penis edema. No evidence of infection. Neuro: CN2-12 intact, Motor and sensation intact, No focal deficit Labs: Results for orders placed or performed during the hospital encounter of 09/11/19 CBC with Differential Result Value Ref Range WBC 7.74 3.80 - 11.00 K/uL RBC 3.07 (L) 4.20 - 5.70 M/uL Hemoglobin 9.3 (L) 13.2 - 17.0 g/dL Hematocrit 27.6 (L) 39.0 - 50.0 % MCV 89.9 80.0 - 100.0 fl MCH 30.3 27.0 - 34.0 pg MCHC 33.7 32.0 - 35.5 g/dL RDW-SD 50.9 37 - 53 fl Platelet Count 226 150 - 400 K/uL MPV 10.2 fl Diff Type AUTOMATED % nRBC 0.0 0 /100WBC % Neutrophils 76.70 % IMMATURE GRANULOCYTE 0.30 % % Lymphocytes 4.80 % Monocyte % 11.40 % Eosinophils % 6.30 % Basophils % 0.50 % Neutrophils, Absolute 5.94 1.90 - 7.40 K/uL IMMATURE GRANS AB 0.02 0.00 - 0.07 K/uL Absolute Lymphocytes 0.37 (L) 1.00 - 3.90 K/uL Absolute Monocytes 0.88 (H) 0.00 - 0.80 K/uL Eosinophils, Absolute 0.49 0.00 - 0.50 K/uL Basophils, Absolute 0.04 0.00 - 0.10 K/uL Results for orders placed or performed during the hospital encounter of 09/11/19 Comprehensive Metabolic Panel Result Value Ref Range Na 134 (L) 135 - 145 mmol/L K 3.7 3.5 - 4.9 mmol/L Cl 103 99 - 109 mmol/L CO2 25 23 - 32 mmol/L Anion Gap 10 5 - 20 mmol/L Glucose 102 (H) 65 - 99 mg/dL BUN 16 8 - 25 mg/dL Creatinine 0.91 0.70 - 1.30 mg/dL BUN/Creatinine Ratio 18 Calcium 8.7 8.5 - 10.5 mg/dL Protein, Total 5.0 (L) 6.3 - 8.2 g/dL Albumin 3.2 (L) 3.3 - 4.8 g/dL Globulin 1.8 1.3 - 4.9 g/dL A/G Ratio 1.8 1.0 - 2.4 BILIRUBIN, TOTAL 0.6 0.1 - 1.5 mg/dL ALK PHOS 200 (H) 35 - 115 U/L AST 27 10 - 45 U/L ALT 14 10 - 65 U/L Estimated GFR >60 >60 mL/min/1.73m2 Images: No results found. PROBLEM LIST Patient Active Problem List Diagnosis Date Noted POA Atrial fibrillation with RVR 09/13/2019 No Postprocedural hypotension 09/13/2019 No Chronic diastolic heart failure 09/11/2019 Yes Stage 3 chronic kidney disease 09/11/2019 Unknown Chronic anemia 09/11/2019 Yes PAD (peripheral artery disease) 09/02/2019 Yes Bilateral carotid artery stenosis 06/10/2019 Yes Interstitial lung disease 03/12/2018 Unknown Subclavian steal syndrome 02/13/2018 Unknown Atopic dermatitis 02/06/2018 Unknown PVD (peripheral vascular disease) 02/06/2018 Yes Hypotension 02/06/2018 Unknown Chronic atrial fibrillation 02/02/2018 Yes Squamous cell carcinoma of upper extremity 02/02/2018 Unknown Essential hypertension 01/30/2018 Yes Benign prostatic hyperplasia with lower urinary tract symptoms 01/07/2017 Unknown Anticoagulant long-term use 12/19/2016 Unknown Femur fracture, left 12/18/2016 Unknown Femur fracture, right 12/18/2016 Unknown Code Status: full JOSÉ Mooney, PA-C Vascular Surgery miley, Jeramy Monroy MD - 09/17/2019 8:29 AM PST Service: Report Manager Progress Note Deborah Thomason 88 y.o. Hospital Day: LOS: 6 days Post-Op Day: 6 Days Post-Op Consulting Physicians Treatment Team: Anurag Villa MD SUBJECTIVE Patient Summary:The patient is a88 y.o.malewith significant past medical his tory ofatrial fib/flutter on Coumadin, bilateral carotid artery disease with previous R ca rotid endarterectomy, CVA (without residual deficit), PVD, [facility] surgery r/t critical ischemia of his LLE. Today, we were asked to evaluate the patient as he had hypotension and rapid atrial fib intermittentl y since his L femoral endarterectomy by Dr. Garber on 09/11/19. Currently, his rate is in the 120s. His systolic BP was as low as 70 this morning. Due to need for increased press or support and titration of rate-controlling medications, patient was transferred to the ICU for further management. ICU Timeline: 09/14:Kailee weaned and turned off. BP tolerated. Amio 0.5 with good rate control. Cont inues on Cefazolin 09/15: Cefazolin stopped. BP required pressors 09/16: On amiodarone for rate control, phenylephrine for BP Events Overnight: Amiodarone PO started, continues to need pressors intermittently fo r low BP SCHEDULED MEDICATIONS Reviewed. OBJECTIVE VITAL SIGNS Temp: [36.8 C (98.2 F)-37.1 C (98.8 F)] 36.8 C (98.2 F) Pulse: [76-158] 103 Resp: [16-20] 18 BP: (66-179)/(42-98) 108/61 Intake/Output Summary (Last 24 hours) at 09/17/2019 0829 Last data filed at 09/17/2019 0646 Gross per 24 hour Intake 1499 ml Output 2668 ml Net -1169 ml EXAM GEN: awake, alert, oriented x3, NAD NEURO: PERRLA, EOMI, no facial asymmetry, moves all extremities well HEENT: sclerae clear, nonicteric, oral mmm, pink, no exudates NECK: supple, trachea midline CV: irregular S1/S2, no murmur, rub or gallop, peripheral pulses palpable, cap refill brisk LUNGS: clear b/l, no wheezing, rales or rhonchi, symmetric chest expansion, even/unlabored respirations ABD: soft, nondistended, nontender to palpation, no masses, no hepatosplenomegaly EXTR: no edema, clubbing or cyanosis SKIN: warm, dry, no rash or mottling; R femoral surgical site clean, dry, no erythema, stap les in place LINES/TUBES: PIV Diagnostic Studies: Available labs and images have been reviewed and will be addressed as indicated in the assessment and plan. PROBLEM LIST Principal Problem: Atrial fibrillation with RVR Active Problems: Chronic atrial fibrillation Essential hypertension PVD (peripheral vascular disease) Bilateral carotid artery stenosis PAD (peripheral artery disease) Chronic diastolic heart failure Chronic anemia Postprocedural hypotension Resolved Problems: Cellulitis of left thigh ASSESSMENT & PLAN NEURO: Bilateral carotid artery stenosis, s/p R CEA in remote history. CAM-ICU screening every shift. CV: Chronic atrial fib, now with RVR,Coumadin therapeutic He is on digoxin and metoprolol at home, and has labile low blood pressures. Unable to give metoprolol currently due to hypotension.Will continue metop if pressures improve. Amiodarone switched to PO rate controlled. Has needed phenylephrine and midodrine for BP. Midodrine increased 15mg TID. Will transfer off floor once off pressors. Given age, this might take another day for his BP to stabilize. Needing less pressor support each day. Chronic diastolic heart failure. Lasix 20mg yesterday with appropriate UOP. Peripheral vascular disease s/p femoral endarterectomy and angioplasty by vascular surge ry on 09/11. Continue Plavix, warfarin. PULM: No acute issues. Patient on room air and protecting airway. GI/NUTRITION: Diet:fat and cholesterol modified. RENAL/LYTES: Currently with normal creatinine andeGFR,but there is history of chronic kidney disease , stage III.lasix given with good UOP. History of retention. Velarde taken out. ID: Left groin surgical site/ upper thigh looks good.Afebrile, WBC wnl.No issues. MRSA negative in nares. HEME: Normocytic anemia. CBC daily. No leukocytosis. INR 2.2. On Warfarin ENDO: No issues. MUSC/SKIN: Skin care and pressure ulcer prevention per nursing standards. PT/OT PROPHYLAXIS: Stress ulcer prophylaxis:N/A DVT prophylaxis:SCD's while in bed, Coumadin with INR goal 2-3 VAP:N/A Disposition:ICU plan ofcare as above. Code Status:Full Code Jeramy Chapa MD 09/17/2019 Dictation software, EdCaliber, was used which may contain error with similar sound words even after review. Portions of this chart may have been copied from previous notes for continuity of care. Associated attestation - Susanna Simon MD - 09/17/2019 1:58 PM PSTPlan of care disc ussed with Dr. Jeramy Chapa. I have seen and evaluated the patient independently. I agree with the physical examination and management as documented. Additionally, patient is awake, oriented, denies any pain. CV: irregularly irregular, rate controlled in the 90s Lungs: clear and no wheezing, unlabored respirations Abd: soft, nontender to palpation Ext: note of edema on the left groin anterior thigh - improved. Scrotal edema, trace lower extremity edema. Skin: Venous ulcers noted on the left foot Peripheral vascular disease status post femoral endarterectomy and angioplasty on September 11, 2019 - Completed jose-operative cefazolin. Continue Plavix. Hypotension. Requiring phenylephrine to keep MAP > 65. Decreasing phenylephrine requireme nts. Chronic atrial fibrillation -currently rate controlled, digoxin, PO amiodarone, add metopro lol once BP tolerates. Requiring phenylephrine and midodrine for hemodynamic support. Anti coagulated with warfarin, d/c enoxaparin with INR being therapeutic. Volume overload - gentle diureses with furosemide. Deconditioning. Continue to work with physical therapy. Mobilize as tolerated. Disposition: Plan of care as above. Wean off phenylephrine as BP tolerates. Susanna Simon MD Report Manager 09/17/2019 Please bill 40 minutes of critical care time spent evaluating the patient, reviewing the da ta and formulating a plan exclusive of procedures. Odalys Tse, PharmD - 09/16/2019 3:56 PM PST Pharmacy Warfarin Monitoring: Deborah Thomason is currently on warfarin for a diagnosis of atrial fibrillation with a target INR of 2-3. Recent Labs Lab 09/16/19 0411 09/15/19 0403 09/14/19 0923 09/14/19 0409 HGB 8.3* 8.9* 9.6* -- HCT 25.3* 27.4* 29.5* -- PLT 209 179 157 -- INR 1.6 1.4 -- 1.3 DATE 09/16 09/15 09/14 09/13 09/12 09/11 INR 1.6 1.5 1.3 1.2 1.2 1.2 Warfarin Dose 5 mg planned 5 mg 3 mg 5 mg 5 mg 3 mg - dose omitted Assessment: The INR is below the target range of 2-3 INR increasing appropriately. Will continue with patient's home dose at this time. Plan: Pharmacy will order warfarin 5 mg today INR in AM. Pharmacy will continue to follow and modify therapy as indicated. ODALYS TSE, PharmD 09/16/2019 3:54 PM Maye Amato MD - 09/16/2019 9:47 AM PSTFormatting of this note might be different from the rand dominguez. Service: Cardiology Progress Note Hospital Day: LOS: 5 days Post-Op Day: 2 Days Post-Op SUBJECTIVE Patient Summary: 88 y.o. male with significant past medical history of AF on coumadin , CAD, HFpEF, HTN, PVD, bilateral carotid artery disease s/p right CEA, hx of CVA w/out resi dual deficit was admitted for limb ischemia. Patient has been following with vascular surger y for his PVD. On his last visit he presented with a nonhealing wound since. His last LE gamal ging study showed extremely diminished JEREMY and TBI values. Patient was admitted and underwen t today S[employer] endarterectomy and angioplasty. EBL was 200-400ml. He was started neosynephrine intraop. Seen by the bedside no complaints. Off phenylephrine. No chest pain, SOB, palpitations. On amiodarone and heparin drip. Scheduled Medications amiodarone 400 mg Oral BID clopidogrel 75 mg Oral Daily digoxin 125 mcg Oral Daily docusate sodium 100 mg Oral BID enoxaparin 1 mg/kg Subcutaneous 2 times per day midodrine 15 mg Oral TID Early polyethylene glycol 17 g Oral Daily potassium chloride 20 mEq Oral Daily tamsulosin 0.8 mg Oral Daily after breakfast tocopherol 400 Units Oral Daily warfarin 3 mg Oral Once per day on Sat warfarin 5 mg Oral Once per day on Sat Sat warfarin per pharmacy Other Pharmacy Consult Continuous Infusions phenylephrine Stopped (09/16/19 0054) PRN Medications HYDROmorphone, Magnesium replacement - NON ICU AND Magnesium AND magnesium oxide AND magnesium sulfate AND magnesium sulfate, oxyCODONE, Potassium replacement - NON IC U AND Potassium AND potassium chloride AND potassium chloride AND potassium chloride IVPB (other volumes & diluents) AND potassium chloride IVPB (other volumes & di luents), senna, Phosphate Replacement - ICU AND sodium phosphate IVPB AND sodium nilton sphate IVPB OBJECTIVE Vital Signs: BP 91/58 | Pulse 84 | Temp 37 C (98.6 F) (Oral) | Resp 20 | Ht 1.727 m (5' 8") | W t 83 kg (182 lb 15.7 oz) | SpO2 96% | BMI 27.82 kg/m Intake/Output Summary (Last 24 hours) at 09/16/2019 0947 Last data filed at 09/16/2019 0900 Gross per 24 hour Intake 2316 ml Output 1042 ml Net 1274 ml EXAM Constitutional: Well-developed. Neck: No JVD present. No thyromegaly present. Cardiovascular: Irregular rhythm, S1 normal and S2 normal. +ve sys murmur heard. Pulses: Radial pulses are feeble, left lower extremity groin is swollen with erhythema Pulmonary/Chest: Effort normal and breath sounds normal. No wheezes. No rales. Abdominal: Soft. No tenderness. Musculoskeletal: No edema. Neurological: Alert. No cranial nerve deficit. Skin: Warm and dry. DATA CBC: Lab Results Component Value Date WBC 6.35 09/16/2019 RBC 2.78 (L) 09/16/2019 HGB 8.3 (L) 09/16/2019 HCT 25.3 (L) 09/16/2019 MCV 91.0 09/16/2019 MCH 29.9 09/16/2019 MCHC 32.8 09/16/2019 PLT 209 09/16/2019 MPV 10.6 09/16/2019 DIFFTYPE AUTOMATED 09/16/2019 CMP: Lab Results Component Value Date NA 133 (L) 09/16/2019 K 4.2 09/16/2019 CL 104 09/16/2019 CO2 25 09/16/2019 ANIONGAP 8 09/16/2019 BUN 18 09/16/2019 GLOB 2.8 11/18/2017 AGRATIO 1.7 09/16/2019 BILITOT 1.0 01/01/2017 AST 23 09/16/2019 ALT 10 09/16/2019 EGFR >60 09/16/2019 CPK: No components found for: CKTOTAL Troponin I: No components found for: TROPONINI TSH: No results found for: TSH Lab Results Component Value Date BNP 693 (H) 01/02/2017 ASSESSMENT & PLAN Chronic atrial fibrillation with RVR in post op status- rate controlled on amiodarone drip Heart failure preserved LV systolic function Mild troponin elevation in the setting of tachyrhythmia, post op status likely from demand ischemia Severe PVD s/p left femoral enterectomy for critical limb ischemia Bilateral carotid disease with hx of right carotid endarterectomy Hx of CVA with no residual deficit COPD Former smoker Anemia- steady drop in H/H- ? Dilutional vs blood loss H/H further drop to 8.3/25.3 from 8. 9/27.4 (09/15)<9.6/29.5 (09/14) Continue to trend H/H Continue gentle IV fluid hydration with close monitoring of volume status and respiratory d istress and use IV lasix as needed Pressors as needed Will change IV amiodarone to oral 400mg Q12hrs for one week followed by 200mg daily May add Metoprolol when he can tolerate and uptitrate as needed as BP can tolerate Monitor and correct electrolytes to K > 4.0 and Mg > 2.0 Continue to monitor H/H On digoxin On anticoagulation with Lovenox and on coumadin(INR 1.6) Code Status: Full Code Anurag Villa MD [facility] MD - 09/16/2019 8:35 AM PSTFormatting of this note might be different from the origin [facility] Service: Report Manager Progress Note Deborah Barrettmichelle 88 y.o. Hospital Day: LOS: 5 days Post-Op Day: 5 Days Post-Op Consulting Physicians Treatment Team: Anurag Villa MD SUBJECTIVE Patient Summary: Patient Summary:The patient is a88 y.o.malewith signific ant past medical history ofatrial fib/flutter on Coumadin, bilateral carotid artery diseas e with previous R carotid endarterectomy, CVA (without residual deficit), PVD, and CADwho came to the hospital on 09/11 for intervention by vascular surgery r/t critical ischemia of his LLE. Today, we were asked to evaluate the patient as he had hypotension and rapid atri al fib intermittently since his L femoral endarterectomy by Dr. Garber on 09/11/19. Gagandeep martinez, his rate is in the 120s. His systolic BP was as low as 70 this morning. Due to need for increased pressor support and titration of rate-controlling medications, patient was tr ansferred to the ICU for further management. ICU Timeline: 09/14: Kailee weaned and turned off. BP tolerated. Amio 0.5 with good rate control. Aubree nues on Cefazolin Events Overnight: Stopped antibiotics, BP to 80s requiring phenylephrine; continues A miodarone SCHEDULED MEDICATIONS Reviewed. OBJECTIVE VITAL SIGNS Temp: [36.9 C (98.4 F)-37.1 C (98.8 F)] 37.1 C (98.8 F) Pulse: [68-96] 80 Resp: [16-20] 18 BP: (53-141)/(34-76) 120/62 Intake/Output Summary (Last 24 hours) at 09/16/2019 0836 Last data filed at 09/16/2019 0601 Gross per 24 hour Intake 2616 ml Output 968 ml Net 1648 ml EXAM GEN: awake, alert, oriented x3, NAD NEURO: PERRLA, EOMI, no facial asymmetry, moves all extremities well HEENT: sclerae clear, nonicteric, oral mmm, pink, no exudates NECK: supple, trachea midline CV: irregular no murmur, rub or gallop, peripheral pulses palpable, cap refill brisk LUNGS: clear b/l, no wheezing, rales or rhonchi, symmetric chest expansion ABD: soft, nondistended, nontender to palpation, no masses, no hepatosplenomegaly EXTR: no edema, clubbing or cyanosis SKIN: warm, dry, no rash or mottling; bandage c/d/i; no erythema in L groin, venous LLE ulc ers; scrotal/penis edema LINES/TUBES: PIV, velarde Diagnostic Studies: Available labs and images have been reviewed and will be addressed as indicated in the assessment and plan. PROBLEM LIST Principal Problem: Atrial fibrillation with RVR Active Problems: Chronic atrial fibrillation Essential hypertension PVD (peripheral vascular disease) Bilateral carotid artery stenosis PAD (peripheral artery disease) Chronic diastolic heart failure Chronic anemia Postprocedural hypotension Resolved Problems: Cellulitis of left thigh ASSESSMENT & PLAN NEURO: Bilateral carotid artery stenosis, s/p R CEA in remote history. CAM-ICU screening every shift. CV: Chronic atrial fib, now with RVR,Has needed phenylephrine and midodrine for BP. Midod rine increased to 15mg TID. He is on digoxin and metoprolol at home, and has labile low blood pressures. Unable to give metoprolol currently due to hypotension.Will continue metop if pressures improve. Amiodarone infusion for rate control. Will switch IV amio to PO. Will transfer off floo r once off pressors. Chronic diastolic heart failure. Peripheral vascular disease s/p femoral endarterectomy and angioplasty by vascular surge ry on 09/11. Continue Plavix, warfarin. PULM: No acute issues. Patient on room air and protecting airway. GI/NUTRITION: Diet:fat and cholesterol modified. RENAL/LYTES: Currently with normal creatinine andeGFR,but there is history of chronic kidney disease , stage III.UOP 1L. Some urinary retention, velarde in. ID: Previous concern for cellulitis at left groin surgical site/ upper thigh.Afebrile, WBC wnl. Surgical site does not look infected. Stopped cefazolin. MRSA negative in nares. HEME: Normocytic anemia. CBC daily. No leukocytosis. INR 1.6. Continue lovenox bridge with warfarin ENDO: No issues. MUSC/SKIN: Skin care and pressure ulcer prevention per nursing standards. PROPHYLAXIS: Stress ulcer prophylaxis:N/A DVT prophylaxis:SCD's while in bed, lovenox bridge, Coumadin with INR goal 2-3 VAP:N/A Disposition:ICU plan ofcare as above. Code Status:Full Code Jeramy Chapa MD 09/16/2019 Dictation software, EdCaliber, was used which may contain error with similar sound words even after review. Portions of this chart may have been copied from previous notes for continuity of care. Associated attestation - Susanna Simon MD - 09/16/2019 1:37 PM PSTPlan of care disc ussed with Dr. Jeramy Chapa. I have seen and evaluated the patient independently. I agree with the physical examination and management as documented. Additionally, patient is awake, oriented, denies any pain. CV: irregularly irregular, rate controlled in the 80s Lungs: clear and no wheezing, unlabored respirations Abd: soft, nontender to palpation Ext: erythema resolved, note of edema and mild differential warmth on the left groin anteri or thigh - improved. Scrotal edema, trace lower extremity edema. Skin: Venous ulcers noted on the left foot Peripheral vascular disease status post femoral endarterectomy and angioplasty on September 11, 2019 - Completed jose-operative cefazolin. Continue Plavix. Chronic atrial fibrillation -currently rate controlled, digoxin, switched to PO amiodarone, add metoprolol once BP tolerates. Requiring phenylephrine and midodrine for hemodynamic kinney pport. Anticoagulated with warfarin and currently bridged with this enoxaparin until INR th erapeutic. NR 1.6 today Volume overload - gentle diureses with furosemide. 10 L net positive on I/Os Deconditioning. Continue to work with physical therapy. Mobilize as tolerated. Disposition: Plan of care as above. Wean off phenylephrine as BP tolerates. Susanna Simon MD Report Manager 09/16/2019 1:33 PM Please bill 40 minutes of critical care time spent evaluating the patient, reviewing the da ta and formulating a plan exclusive of procedures. Kendell Robertson PA - 09/16/2019 8:[address] Service: Vascular Surgery Progress Note Hospital Day: LOS: 5 days Post-Op Day: 2 ASSESSMENT & PLAN POD #2, S/p Lt LIA, EIA stent, Lt [employer] endarterectomy for LLE CLI, transferring to ICU for m anagement of his preexisting Afib with RVR. Kailee weaned off last pm. On Midodrine 10 mg tid f or HD support. AFVSS, Afib with HR 80s-90s, BP 89-120/54-62. Swelling overall from fluid. T olerated reg diet, OOB yesterday. Velarde still in. Lt foot well perfused with strong signal t o DP/PT. CAF rate controlled, digoxin, IV amiodarone will transition to metoprolol once BP tolerates. On Warfarin + bridging enoxaparin. Cont current pain control Cont Midodrine for BP DC IV Amiodarone and start PO Amiodarone per cardiology Keep Velarde in for HD monitoring per ICU OOB UTC PT eval and Tx ICU help appreciated SUBJECTIVE: Feeling better, No o/n event OBJECTIVE Vital Signs: Vitals: 09/16/19 0630 BP: 120/62 Pulse: 80 Resp: Temp: Physical Exam Gen: AAO X3 HEENT: TANK, EOMI Neck: Supple, Lungs: unlabored breath Heart: Irreg irreg, rate controlled 80s-90s, PP: strong signal to Lt DP/PT and Rt DP/PT Abd: BS present, NT/ND Ext: +1 edema, left groin incision well approximated, no erythema, drainage or induration. Some fullness in medial groin, no fluctuance. Dressing c/d. Scrotal/penis edema. No eviden ce of infection. Neuro: CN2-12 intact, Motor and sensation intact, No focal deficit Labs: Results for orders placed or performed during the hospital encounter of 09/11/19 CBC with Differential Result Value Ref Range WBC 6.35 3.80 - 11.00 K/uL RBC 2.78 (L) 4.20 - 5.70 M/uL Hemoglobin 8.3 (L) 13.2 - 17.0 g/dL Hematocrit 25.3 (L) 39.0 - 50.0 % MCV 91.0 80.0 - 100.0 fl MCH 29.9 27.0 - 34.0 pg MCHC 32.8 32.0 - 35.5 g/dL RDW-SD 52.0 37 - 53 fl Platelet Count 209 150 - 400 K/uL MPV 10.6 fl Diff Type AUTOMATED % nRBC 0.0 0 /100WBC % Neutrophils 71.70 % IMMATURE GRANULOCYTE 0.30 % % Lymphocytes 6.90 % Monocyte % 12.30 % Eosinophils % 8.20 % Basophils % 0.60 % Neutrophils, Absolute 4.55 1.90 - 7.40 K/uL IMMATURE GRANS AB 0.02 0.00 - 0.07 K/uL Absolute Lymphocytes 0.44 (L) 1.00 - 3.90 K/uL Absolute Monocytes 0.78 0.00 - 0.80 K/uL Eosinophils, Absolute 0.52 (H) 0.00 - 0.50 K/uL Basophils, Absolute 0.04 0.00 - 0.10 K/uL Results for orders placed or performed during the hospital encounter of 09/11/19 Comprehensive Metabolic Panel Result Value Ref Range Na 133 (L) 135 - 145 mmol/L K 4.2 3.5 - 4.9 mmol/L Cl 104 99 - 109 mmol/L CO2 25 23 - 32 mmol/L Anion Gap 8 5 - 20 mmol/L Glucose 105 (H) 65 - 99 mg/dL BUN 18 8 - 25 mg/dL Creatinine 0.97 0.70 - 1.30 mg/dL BUN/Creatinine Ratio 19 Calcium 8.6 8.5 - 10.5 mg/dL Protein, Total 4.8 (L) 6.3 - 8.2 g/dL Albumin 3.0 (L) 3.3 - 4.8 g/dL Globulin 1.8 1.3 - 4.9 g/dL A/G Ratio 1.7 1.0 - 2.4 BILIRUBIN, TOTAL 0.4 0.1 - 1.5 mg/dL ALK PHOS 159 (H) 35 - 115 U/L AST 23 10 - 45 U/L ALT 10 10 - 65 U/L Estimated GFR >60 >60 mL/min/1.73m2 Images: No results found. PROBLEM LIST Patient Active Problem List Diagnosis Date Noted POA Atrial fibrillation with RVR 09/13/2019 No Postprocedural hypotension 09/13/2019 No Chronic diastolic heart failure 09/11/2019 Yes Stage 3 chronic kidney disease 09/11/2019 Unknown Chronic anemia 09/11/2019 Yes PAD (peripheral artery disease) 09/02/2019 Yes Bilateral carotid artery stenosis 06/10/2019 Yes Interstitial lung disease 03/12/2018 Unknown Subclavian steal syndrome 02/13/2018 Unknown Atopic dermatitis 02/06/2018 Unknown PVD (peripheral vascular disease) 02/06/2018 Yes Hypotension 02/06/2018 Unknown Chronic atrial fibrillation 02/02/2018 Yes Squamous cell carcinoma of upper extremity 02/02/2018 Unknown Essential hypertension 01/30/2018 Yes Benign prostatic hyperplasia with lower urinary tract symptoms 01/07/2017 Unknown Anticoagulant long-term use 12/19/2016 Unknown Femur fracture, left 12/18/2016 Unknown Femur fracture, right 12/18/2016 Unknown Code Status: full JOSÉ Mooney, PALloydC Vascular Surgery Angela Dnucan RD - 4:05 PM PST NUTRITION NOTE Summary Pt admitted for vascular intervention for critical ischemia of LLE. Pt assessed by nutriti on services per policy for geriatric patients s/p surgeries. Pt awake, in good spirits. Diet Experience Self-Selected Diet: Pt reports normally good appetite at home, reduced appetite since admit but pt is "making the effort because I need to". Pt reports he and his spouse share shopp ing/cooking tasks. Fluid/Beverage Intake Oral Fluids Amount: ad dinorah Food Intake Type of Food/Meals: Current active diet order is: Diet Diet fat and cholesterol modified; Effective Now Amount of Food: eating 100% meals Nourishments: not currently indicated Nutrition-Focused Physical Findings Overall Appearance: well nourished, no s/sxs malnutrition by exam. Body Language: receptive, calm/cooperative Extremities, Muscles and Bones: +3-4 edema scrotum/penis, +3 edema hip/flank Digestive System (Mouth to Rectum): no chew/swallow deficits; continues with constipati on Nerves and Cognition: A &O x 3, disoriented to time Skin: WOC following for abrasion left lateral food - likely poor fitting shoes Anthropometrics Pt does not c/o wt loss, c/w documentation Current Weight: 74.3 kg (163 lb 11.2 oz) Admit Weight: 71.6 kg (157 lb 13.6 oz) Biochemical Data, Medical Test, and Procedures Recent Labs 09/15/19 0403 NA 134* K 4.2 GLU 101* BUN 16 CREA 0.97 MG 1.9 Nutrition Diagnosis No nutrition dx at this time. Recommendations Continue current diet as Rx'd. Will monitor intake trend and offer oral nutrition suppleme nts as indicated. Following with team. Nutritional Risk Required Follow Up: (L 09/22/2019) Angela Cornelius RD 09/15/2019 4:05 PM Jeramy Grove MD - 09/15/2019 2:47 PM PST Service: Report Manager Progress Note Deborah Thomason 88 y.o. Hospital Day: LOS: 4 days Post-Op Day: 4 Days Post-Op Consulting Physicians Treatment Team: Anurag Villa MD SUBJECTIVE Patient Summary: Patient Summary: The patient is a88 y.o.malewith significant past medical history ofatrial fib/flutter on Coumadin, bilateral carotid artery disease w ith previous R carotid endarterectomy, CVA (without residual deficit), PVD, and CADwhoca me to the hospital on 09/11 for intervention by vascular surgery r/t critical ischemia of his LLE. Today, we were asked to evaluate the patient as he had hypotension and rapid atrial fib intermittently since his L femoral endarterectomy by Dr. Garber on 09/11/19. Currently , his rate is in the 120s. His systolic BP was as low as 70 this morning. Due to need fo r increased pressor support and titration of rate-controlling medications, patient was trans ferred to the ICU for further management. ICU Timeline: 09/14: Kailee weaned and turned off. BP tolerated. Amio 0.5 with good rate control. Aubree nues on Cefazolin Events Overnight: On IV amiodarone for rate control. Phenylephrine increased for BP. Cefazolin stopped. SCHEDULED MEDICATIONS Reviewed. OBJECTIVE VITAL SIGNS Temp: [36.6 C (97.9 F)-37.2 C (98.9 F)] 37.2 C (98.9 F) Pulse: [76-186] 89 Resp: [16-22] 22 BP: (62-143)/(45-81) 98/62 Intake/Output Summary (Last 24 hours) at 09/15/2019 1447 Last data filed at 09/15/2019 1400 Gross per 24 hour Intake 4080.2 ml Output 1094 ml Net 2986.2 ml EXAM GEN: awake, alert, oriented x3, NEURO: PERRLA, EOMI, no facial asymmetry, LLE strength decreased. Pain with LE movement HEENT: sclerae clear, nonicteric, oral mmm, pink, no exudates NECK: supple, trachea midline CV: irregular, no murmur, LUNGS: clear b/l, no wheezing, ABD: soft, nondistended, NTTP EXTR: no LE edema in ankles, proximal fullness in LLE SKIN: banadage c/d/i, no erythema in L groin, venous ulcers in LLE, edema in scrotum/penis Diagnostic Studies: Available labs and images have been reviewed and will be addressed as indicated in the assessment and plan. PROBLEM LIST Principal Problem: Atrial fibrillation with RVR Active Problems: Chronic atrial fibrillation Essential hypertension PVD (peripheral vascular disease) Bilateral carotid artery stenosis PAD (peripheral artery disease) Chronic diastolic heart failure Chronic anemia Postprocedural hypotension Cellulitis of left thigh Resolved Problems: * No resolved hospital problems. * ASSESSMENT & PLAN NEURO: Bilateral carotid artery stenosis, s/p R CEA in remote history. CAM-ICU screening every shift. CV: Chronic atrial fib, now with RVR,as well as hypotension requiring increase in phenylep hrine. He is on digoxin and metoprolol at home, and has labile low blood pressures. Unable to give metoprolol currently due to hypotension. Will continue metop if pressures improve. Cardiology previously consulted by the hospitalist service. On amiodarone infusion for rate control. Chronic diastolic heart failure. Peripheral vascular disease s/p femoral endarterectomy and angioplasty by vascular surge ry on 09/11. Continue Plavix, warfarin. PULM: No acute issues. Patient on room air and protecting airway. GI/NUTRITION: Diet:fat and cholesterol modified. RENAL/LYTES: Currently with normal creatinine andeGFR,but there is history of chronic kidney dise ase, stage III.UOP has been okay. Tolerated albumin. ID: Previous concern for cellulitis at left groin surgical site/ upper thigh. Afebrile, WBC wnl. Surgical site does not look infected. Stopped cefazolin. MRSA negative in nares. HEME: Normocytic anemia. CBC daily. No leukocytosis. ENDO: No issues. MUSC/SKIN: Skin care and pressure ulcer prevention per nursing standards. PROPHYLAXIS: Stress ulcer prophylaxis:N/A DVT prophylaxis:SCD's while in bed, lovenox bridge, Coumadin with INR goal 2-3 VAP:N/A Disposition:ICU plan ofcare as above. Code Status:Full Code Jeramy Chapa MD 09/15/2019 Dictation software, EdCaliber, was used which may contain error with similar sound words even after review. Portions of this chart may have been copied from previous notes for continuity of care. Associated attestation - Susanna Simon MD - 09/15/2019 4:22 PM PSTPlan of care disc ussed with Dr. Jeramy Chapa. I have seen and evaluated the patient independently. I agree with the physical examination and management as documented. Additionally, patient is awake, oriented CV: irregularly irregular, rate controlled in the 80s Lungs: clear and no wheezing, unlabored respirations Abd: soft, Nontender to palpation Ext: Note of erythema, swelling, and differential warmth on the left groin area extending d own to the left anterior thigh - improved. Hematoma over left groinstable, mild tenderness t o palpation Skin: Venous ulcers noted on the left foot Peripheral vascular disease status post femoral endarterectomy and angioplasty on September 11, 2019 - Completed jose-operative cefazolin. Continue Plavix. Chronic atrial fibrillation -currently rate controlled, digoxin, on IV amiodarone will sanders sition to metoprolol once BP tolerates. Requiring phenylephrine and midodrine for hemodynam ic support. Anticoagulated with warfarin and currently bridged with this enoxaparin until I NR therapeutic. Disposition: Plan of care as above. Wean off phenylephrine as BP tolerates. Susanna Simon MD Report Manager 09/15/2019 4:12 PM Please bill 40 minutes of critical care time spent evaluating the patient, reviewing the da ta and formulating a plan exclusive of procedures. Karley Tobar, [facility] - 09/15/2019 2:08 PM PSTFormatting of this note might be differen t from the original. Pharmacy Warfarin Monitoring: Deborah Thomason male 88 y.o., admitted for limb ischemia. 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 Per district sales manager reconciliation, warfarin was on hold since 09/03 in anti cipation of surgery. Patient transferred to the ICU 09/13 for hypotension and afib with RVR. INDICATION: Atrial Fibrillation INR GOAL: 2-3 HOME REGIMEN: 3 mg on Saturday/Saturday, 5 mg all other days (last dose prior to admission was on 09/03) OTHER ANTICOAGULATION: Enoxaparin 80 mg BID DRUG INTERACTIONS: Amiodarone started 09/13 (strong inhibitor of warfarin metabolism. 50% do se reduction recommended after 7-14 days of concomitant therapy) PATIENT DIET: fat and cholesterol modified - eating 50-100% of meals Recent Labs Lab 09/15/19 0403 09/14/19 0923 09/14/19 0409 09/13/19 0405 HGB 8.9* 9.6* -- 10.0* PLT 179 157 -- 154 INR 1.4 -- 1.3 1.2 DATE 09/15 09/14 09/13 09/12 09/11 INR 1.5 1.3 1.2 1.2 1.2 Warfarin Dose 5 mg planned 3 mg 5 mg 5 mg 3 mg - dose omitted Assessment: The INR is Below the target range of 2-3, however, is trending up nicely. Patient remains in ICU on amiodarone infusion. Drug interaction not expected to take effect for 7-14 days of concomitant therapy. We will continue to monitor for dose reduction. Continue enoxaparin therapeutic dose for AF with RVR while INR is subtherapeutic. Plan: Warfarin 5 mg po today, per home regimen INR in am Pharmacy will continue to follow and modify therapy as indicated. Karley Tobar, PharmD, [facility] 09/15/19 2:08 PM Hai Amato MD - 09/15/2019 9:56 AM PSTFormatting of this note might be different from the [facility] Service: Cardiology Progress Note Hospital Day: LOS: 4 days Post-Op Day: 2 Days Post-Op SUBJECTIVE Patient Summary: 88 y.o. male with significant past medical history of AF on coumadin , CAD, HFpEF, HTN, PVD, bilateral carotid artery disease s/p right CEA, hx of CVA w/out resi dual deficit was admitted for limb ischemia. Patient has been following with vascular surger y for his PVD. On his last visit he presented with a nonhealing wound since. His last LE gamal ging study showed extremely diminished JEREMY and TBI values. Patient was admitted and underwen t today [employer] endarterectomy and angioplasty. EBL was 200-400ml. He was started neosynephrine intraop. He is back on low dose kailee-synephrine, on amiodarone drip, rates well controlled- BP is lab ile but holding off pressor. No complaints of chest pain, SOB, orthopnea, PND, edema. Left l ower extremity femoral site erythema with swelling, pedal pulses appreciable via doppler. Va scular team following. ON lovenox for anticoagulation. He denies any chest pain, SOB. Says ryan delaney in lower extremity improving. Scheduled Medications ceFAZolin 1 g Intravenous 3 times per day clopidogrel 75 mg Oral Daily digoxin 125 mcg Oral Daily enoxaparin 1 mg/kg Subcutaneous 2 times per day midodrine 10 mg Oral TID Early potassium chloride 20 mEq Oral Daily tamsulosin 0.8 mg Oral Daily after breakfast tocopherol 400 Units Oral Daily warfarin 3 mg Oral Once per day on Sat warfarin 5 mg Oral Once per day on Sat Sat warfarin per pharmacy Other Pharmacy Consult Continuous Infusions amiodarone 0.5 mg/min (09/15/19 0810) niCARdipine Stopped (09/11/19 1706) phenylephrine 50 mcg/min (09/15/19 0855) PRN Medications HYDROmorphone, Magnesium replacement - NON ICU AND Magnesium AND magnesium oxide AND magnesium sulfate AND magnesium sulfate, oxyCODONE, Potassium replacement - NON IC U AND Potassium AND potassium chloride AND potassium chloride AND potassium chloride IVPB (other volumes & diluents) AND potassium chloride IVPB (other volumes & di luents), senna OBJECTIVE Vital Signs: BP (!) 85/54 | Pulse 84 | Temp 37.2 C (98.9 F) | Resp 22 | Ht 1.727 m (5' 8") | Wt 74.3 kg (163 lb 11.2 oz) | SpO2 91% | BMI 24.89 kg/m Intake/Output Summary (Last 24 hours) at 09/15/2019 0956 Last data filed at 09/15/2019 0900 Gross per 24 hour Intake 5160.2 ml Output 1129 ml Net 4031.2 ml EXAM Constitutional: Well-developed. Neck: No JVD present. No thyromegaly present. Cardiovascular: Irregular rhythm, S1 normal and S2 normal. +ve sys murmur heard. Pulses: Radial pulses are feeble, left lower extremity groin is swollen with erhythema Pulmonary/Chest: Effort normal and breath sounds normal. No wheezes. No rales. Abdominal: Soft. No tenderness. Musculoskeletal: No edema. Neurological: Alert. No cranial nerve deficit. Skin: Warm and dry. DATA CBC: Lab Results Component Value Date WBC 7.90 09/15/2019 RBC 2.99 (L) 09/15/2019 HGB 8.9 (L) 09/15/2019 HCT 27.4 (L) 09/15/2019 MCV 91.6 09/15/2019 MCH 29.8 09/15/2019 MCHC 32.5 09/15/2019 PLT 179 09/15/2019 MPV 10.5 09/15/2019 DIFFTYPE AUTOMATED 09/15/2019 CMP: Lab Results Component Value Date NA 134 (L) 09/15/2019 K 4.2 09/15/2019 CL 105 09/15/2019 CO2 24 09/15/2019 ANIONGAP 9 09/15/2019 BUN 16 09/15/2019 GLOB 2.8 11/18/2017 AGRATIO 1.8 09/15/2019 BILITOT 1.0 01/01/2017 AST 16 09/15/2019 ALT 8 (L) 09/15/2019 EGFR >60 09/15/2019 CPK: No components found for: CKTOTAL Troponin I: No components found for: TROPONINI TSH: No results found for: TSH Lab Results Component Value Date BNP 693 (H) 01/02/2017 ASSESSMENT & PLAN Chronic atrial fibrillation with RVR in post op status- rate control improved overnight- on low dose phenylephrine today Heart failure preserved LV systolic function Mild troponin elevation in the setting of tachyrhythmia, post op status likely from demand ischemia Severe PVD s/p left femoral enterectomy for critical limb ischemia Bilateral carotid disease with hx of right carotid endarterectomy Hx of CVA with no residual deficit COPD Former smoker Anemia- steady drop in H/H- ? Dilutional vs blood loss Continue to trend H/H Continue gentle IV fluid hydration with close monitoring of volume status and respiratory d istress and use IV lasix as needed Pressors as needed On IV amiodarone for rate control Metoprolol when he can tolerate and uptitrate as needed as BP can tolerate Monitor and correct electrolytes to K > 4.0 and Mg > 2.0 Continue to monitor H/H On digoxin On anticoagulation with Lovenox and on coumadin(INR 1.4) Code Status: Full Code Anurag C Korimerla, MD Osmin Angel MD - 09/15/2019 7:28 AM PSTVascular Surgery 09/15/2019 88 yo with LLE CLI s/p left common and external iliac stent, left common femoral endarterec zeynep c/b afib with RVR requiring transfer to ICU. Still on small dose on kailee. Swelling ove rall from fluid. Remaining vitals stable. He feels ok. Concerned about slow recovery. No acute issue overnight. Exam Gen: sitting in chair, alert, pleasant Resp: unlabored at rest CV: regular Ext: +1 edema, left groin incision well approximated, no erythema, drainage or induration. Some fullness in medial groin, no fluctuance. Scrotal/penis edema. No evidence of infectio n. Vasc: strong DP signal Labs: reviewed A/P: overall doing ok. HR under better control. Kailee with map goal >60. Wean as tolerated . No evidence of left groin infection. Stop ancef. CXR. Continue plavix. Continue to mo nitor CBC while restarting coumadin and bridging with lovenox. Please call with questions or concerns Osmin Garber MD Vascular Surgery Jess Covarrubias DO - 09/14/2019 1:54 PM PST [facility] Progress Note Primary Care Physician: Carlos Alberto Galeas TODAY S DATE: 09/14/2019 PATIENT NAME: Deborah Thomason : 1930 Subjective Is tired this AM, off Kailee drip, is on lovenox for atrial fibrillation, transition to coumad in Objective Vital Signs: Temp: 36.7 C (98 F) BP: (!) 71/50 Pulse: 97 Resp: 24 SpO2: 90 % Intake/Output Summary (Last 24 hours) at 09/14/2019 1354 Last data filed at 09/14/2019 1325 Gross per 24 hour Intake 3950 ml Output 950 ml Net 3000 ml Weight: 74.3 kg (163 lb 11.2 oz) Exam: * Gen: NAD Ext: L groin with question Of medial erythema, same temperature as right thigh and groin, no induration of this area, medial portion of incision with increased fullness, moderate, no t present yesterday, anasarca left lateral thigh/hip, distal DP with hyperemic triphasic sig nal, sounds dry, no drainage, incision dressing removed and replaced, intact without drainag e Labs: Recent Labs 09/14/19 0923 09/14/19 0409 09/13/19 0405 09/12/19 1728 09/12/19 1627 09/12/19 1125 09/12/19 0431 WBC 8.85 -- 10.81 -- -- -- 9.67 HGB 9.6* -- 10.0* -- -- -- 9.8* HCT 29.5* -- 30.9* -- -- -- 31.1* PLT 157 -- 154 -- -- -- 161 NA 137 -- 137 -- -- -- 139 K 3.6 -- 3.7 -- -- -- 4.2 CL 105 -- 104 -- -- -- 104 CO2 25 -- 25 -- -- -- 27 BUN 13 -- 15 -- -- -- 17 GLU 104* -- 100* -- -- -- 103* CALCIUM 8.7 -- 8.6 -- -- -- 8.2* INR -- 1.3 1.2 -- 1.2 -- -- TROPONIN -- -- -- 0.167* -- 0.136* -- Assessment and plan: Principal Problem: Atrial fibrillation with RVR Active Problems: Chronic atrial fibrillation Essential hypertension PVD (peripheral vascular disease) Bilateral carotid artery stenosis PAD (peripheral artery disease) Chronic diastolic heart failure Chronic anemia Postprocedural hypotension Cellulitis of left thigh 88 yo male with CLI LLE s/p L femoral endarterectomy now with persistent Atrial fibrillatio n with RVR and hypotension requiring additional pressor medications. -On Lovenox and coumadin for atrial fibrillation, monitor L groin fullness, I don't feel th e left leg redness is cellulitis but prudent to continue Ancef a little longer to ensure no early infection -Kailee off, rate better controlled as well as BP -Continue Ancef for possible early cellulitis, could be his coloration but safer to start A bx -Continue ASA, Plavix and statin -Mobilize if okay with other services. Electronically signed by: Jess Webber DO, 09/14/2019 1:54 PM Hai Amato MD - 09/14/2019 12:11 PM PSTFormatting of this note might be different from the [facility] Service: Cardiology Progress Note Hospital Day: LOS: 3 days Post-Op Day: 2 Days Post-Op SUBJECTIVE Patient Summary: 88 y.o. male with significant past medical history of AF on coumadin , CAD, HFpEF, HTN, PVD, bilateral carotid artery disease s/p right CEA, hx of CVA w/out resi dual deficit was admitted for limb ischemia. Patient has been following with vascular surger y for his PVD. On his last visit he presented with a nonhealing wound since. His last LE gamal ging study showed extremely diminished JEREMY and TBI values. Patient was admitted and underwen t today [employer] endarterectomy and angioplasty. EBL was 200-400ml. He was started neosynephrine intraop. He is currently off kailee-synephrine, on amiodarone drip, rates well controlled- BP is labile but holding off pressor. No complaints of chest pain, SOB, orthopnea, PND, edema. Left lowe r extremity femoral site erythema with swelling, pedal pulses appreciable via doppler. Vascu lar team following. ON lovenox for anticoagulation- OK by vascular surgery. He denies any ch est pain, SOB. Says pain in lower extremity improving. Scheduled Medications ceFAZolin 1 g Intravenous 3 times per day clopidogrel 75 mg Oral Daily digoxin 125 mcg Oral Daily enoxaparin 1 mg/kg Subcutaneous 2 times per day potassium chloride 20 mEq Oral Daily tamsulosin 0.8 mg Oral Daily after breakfast tocopherol 400 Units Oral Daily warfarin 3 mg Oral Once per day on Sat warfarin 5 mg Oral Once per day on Sat Sandy Sat warfarin per pharmacy Other Pharmacy Consult Continuous Infusions amiodarone 0.5 mg/min (09/14/19 0686) niCARdipine Stopped (09/11/19 1706) phenylephrine Stopped (09/14/19 0951) PRN Medications HYDROmorphone, Magnesium replacement - NON ICU AND [START ON 09/15/2019] Magnesium AND magnesium oxide AND magnesium sulfate AND magnesium sulfate, oxyCODONE, Potassium replacement - NON ICU AND [START ON 09/15/2019] Potassium AND potassium chloride A ND potassium chloride AND potassium chloride IVPB (other volumes & diluents) AND p otassium chloride IVPB (other volumes & diluents), senna OBJECTIVE Vital Signs: BP 99/64 | Pulse 112 | Temp 37.1 C (98.7 F) (Oral) | Resp (!) 31 | Ht 1.727 m (5' 8 ") | Wt 74.3 kg (163 lb 11.2 oz) | SpO2 (!) 86% | BMI 24.89 kg/m Intake/Output Summary (Last 24 hours) at 09/14/2019 1211 Last data filed at 09/14/2019 1000 Gross per 24 hour Intake 3150 ml Output 950 ml Net 2200 ml EXAM Constitutional: Well-developed. Neck: No JVD present. No thyromegaly present. Cardiovascular: Irregular rhythm, S1 normal and S2 normal. +ve sys murmur heard. Pulses: Radial pulses are feeble, left lower extremity groin is swollen with erhythema Pulmonary/Chest: Effort normal and breath sounds normal. No wheezes. No rales. Abdominal: Soft. No tenderness. Musculoskeletal: No edema. Neurological: Alert. No cranial nerve deficit. Skin: Warm and dry. DATA CBC: Lab Results Component Value Date WBC 8.85 09/14/2019 RBC 3.20 (L) 09/14/2019 HGB 9.6 (L) 09/14/2019 HCT 29.5 (L) 09/14/2019 MCV 92.2 09/14/2019 MCH 30.0 09/14/2019 MCHC 32.5 09/14/2019 PLT 157 09/14/2019 MPV 10.3 09/14/2019 DIFFTYPE AUTOMATED 09/14/2019 CMP: Lab Results Component Value Date NA 137 09/14/2019 K 3.6 09/14/2019 CL 105 09/14/2019 CO2 25 09/14/2019 ANIONGAP 11 09/14/2019 BUN 13 09/14/2019 GLOB 2.8 11/18/2017 AGRATIO 1.6 09/14/2019 BILITOT 1.0 01/01/2017 AST 15 09/14/2019 ALT 10 09/14/2019 EGFR >60 09/14/2019 CPK: No components found for: CKTOTAL Troponin I: No components found for: TROPONINI TSH: No results found for: TSH Lab Results Component Value Date BNP 693 (H) 01/02/2017 ASSESSMENT & PLAN Chronic atrial fibrillation with RVR in post op status- rate control improved overnight- of f pressors since morning Heart failure preserved LV systolic function Mild troponin elevation in the setting of tachyrhythmia, post op status likely from demand ischemia Severe PVD s/p left femoral enterectomy for critical limb ischemia Bilateral carotid disease with hx of right carotid endarterectomy Hx of CVA with no residual deficit COPD Former smoker Continue gentle IV fluid hydration with close monitoring of volume status and respiratory d istress and use IV lasix as needed Pressors as needed- currently on hold since am On IV amiodarone for rate control Metoprolol when he can tolerate and uptitrate as needed as BP can tolerate Monitor and correct electrolytes to K > 4.0 and Mg > 2.0 Continue to monitor H/H On digoxin Anticoagulation with Lovenox (ok with vascular surgery) and on coumadin Code Status: Full Code Anurag Villa MD Karley Pichardo [facility] - 09/14/2019 9:59 AM PSTRenal Dosing Monitoring: Deborah Thomason 88 y.o. male Serum creatinine: 1 mg/dL 09/13/19 0405 Estimated creatinine clearance: 51 mL/min Plan per protocol: Enoxaparin adjusted from 80 mg (1 mg/kg) daily to 80 mg (1 mg/kg) BID for creatinine cleara nce >30 mL/min. Pharmacy will continue to monitor changes in medication orders and renal function and will adjust accordingly. Karley Tobar PharmD, [facility] 09/14/19 7:50 AM ammi, Jeramy jenkins MD - 09/14/2019 8:06 AM PSTFormatting of this note might be different from the [facility] Service: Report Manager Progress Note Deborah Thomason 88 y.o. Hospital Day: LOS: 3 days Post-Op Day: 3 Days Post-Op Consulting Physicians Treatment Team: Anurag Villa MD SUBJECTIVE Patient Summary: The patient is a 88 y.o. male with significant past medical history of atrial fib/flutter on Coumadin, bilateral carotid artery disease with previous R carotid endarterectomy, CVA (without residual deficit), PVD, and CAD who came to the hospital on 08/23 for intervention by vascular surgery r/t critical ischemia of his LLE. Today, we were ask ed to evaluate the patient as he had hypotension and rapid atrial fib intermittently since h is L femoral endarterectomy by Dr. Garber on 09/11/19. Currently, his rate is in the 120s. His systolic BP was as low as 70 this morning. Due to need for increased pressor support a nd titration of rate-controlling medications, patient was transferred to the ICU for further management. Events Overnight: Kailee weaned and turned off. BP tolerated. Amio 0.5 with good rate control. Continues on Cefazolin SCHEDULED MEDICATIONS Reviewed. OBJECTIVE VITAL SIGNS Temp: [37 C (98.6 F)-37.3 C (99.1 F)] 37 C (98.6 F) Pulse: [85-144] 85 Resp: [8-40] 20 BP: (80-132)/(50-82) 85/58 Intake/Output Summary (Last 24 hours) at 09/14/2019 0806 Last data filed at 09/14/2019 0600 Gross per 24 hour Intake 2806 ml Output 1100 ml Net 1706 ml EXAM GEN: awake, alert, oriented x3, NAD, hard of hearing NEURO: PERRLA, EOMI, no facial asymmetry, LLE strength decreased. Pain with LE movement HEENT: sclerae clear, nonicteric, oral mmm, pink, no exudates NECK: supple, trachea midline CV: irregular, no murmur, LUNGS: clear b/l, no wheezing, rales or rhonchi, symmetric chest expansion, even/unlabored respirations ABD: soft, nondistended, nontender to palpation, no masses, EXTR: no edema, clubbing or cyanosis; dp palpated; sensation decreased bilat lower extremit ies. sural, deep and superficial peroneal nerves decreased sensation. SKIN: warm, dry, no rash or mottling; surgical dressing with dried blood, L groin has some redness; LLE with dry scaly skin around ankles, LINES/TUBES: PIV Diagnostic Studies: Available labs and images have been reviewed and will be addressed as indicated in the assessment and plan. PROBLEM LIST Principal Problem: Atrial fibrillation with RVR Active Problems: Chronic atrial fibrillation Essential hypertension PVD (peripheral vascular disease) Bilateral carotid artery stenosis PAD (peripheral artery disease) Chronic diastolic heart failure Chronic anemia Postprocedural hypotension Cellulitis of left thigh Resolved Problems: * No resolved hospital problems. * ASSESSMENT & PLAN NEURO: Bilateral carotid artery stenosis, s/p R CEA in remote history. CAM-ICU screening every shift. CV: Chronic atrial fib, now with RVR, as well as hypotension. Patient follows with Dr. Alea galvin in the clinic. History of previous attempt at ablation in 2007, unsuccessful. Patient has been in atrial fibrillation since. He is on digoxin and metoprolol at home, and has l abile low blood pressures. Unable to give metoprolol currently due to hypotension. Will con tinue metop if pressures improve. Cardiology previously consulted by the hospitalist julio bravo. On amiodarone infusion. Have titrated phenylephrine to maintain MAP of 65. Currently B P have tolerated being off Kailee. Plan to move off floor today. Chronic diastolic heart failure. Peripheral vascular disease s/p femoral endarterectomy and angioplasty by vascular surge ry on 09/11. Continue Plavix, warfarin. PULM: No acute issues. Patient on room air and protecting airway. GI/NUTRITION: Diet: fat and cholesterol modified. RENAL/LYTES: Currently with normal creatinine and eGFR, but there is history of chronic kidney diseas e, stage III. ID: Possible cellulitis at left groin surgical site/ upper thigh. Afebrile, WBC wnl. Site lo oked red today and will continue cefazolin 1g IV TID. MRSA negative in nares. HEME: Normocytic anemia. CBC daily. No leukocytosis. ENDO: No issues. MUSC/SKIN: Skin care and pressure ulcer prevention per nursing standards. PROPHYLAXIS: Stress ulcer prophylaxis: N/A DVT prophylaxis: SCD's while in bed and Coumadin with INR goal 2-3 VAP: N/A Disposition: ICU plan of care as above. Code Status: Full Code Jeramy Chapa MD 09/14/2019 Dictation software, EdCaliber, was used which may contain error with similar sound words even after review. Portions of this chart may have been copied from previous notes for continuity of care. Associated attestation - Susanna Simon MD - 09/14/2019 1:03 PM PSTPlan of care disc ussed with Dr. Jeramy Chapa. I have seen and evaluated the patient independently. I agree with the physical examination and management as documented. Additionally, patient is awake, oriented CV: irregularly irregular, rate controlled in the 80s Lungs: clear and no wheezing, unlabored respirations Abd: soft, Nontender to palpation Ext: Note of erythema, swelling, and differential warmth on the left groin area extending d own to the left anterior thigh and left buttocks, hematoma over left groinstable, mild tende rness to palpation Skin: Venous ulcers noted on the left foot Peripheral vascular disease status post femoral endarterectomy and angioplasty on September 11, 2019 -closely monitor left thigh, groin areas. Continue cefazolin for early cellulitis given erythema and warmth. Continue Plavix. Chronic atrial fibrillation -currently rate controlled, on IV amiodarone will transition to metoprolol once BP tolerates. Shortly requiring phenylephrine for hemodynamic support. An ticoagulated with warfarin and currently bridged with this enoxaparin until INR therapeutic. Disposition: Plan of care as above. Wean off phenylephrine as BP tolerates. Susanna Simon MD Report Manager 09/14/2019 Please bill 40 minutes of critical care time spent evaluating the patient, reviewing the da ta and formulating a plan exclusive of procedures. Karley Tobar, [facility] - 09/14/2019 7:51 AM PST Pharmacy Warfarin Monitoring: Deborah Thomason male 88 y.o., admitted for limb ischemia. 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 Per district sales manager reconciliation, warfarin was on hold since 09/03 in anti cipation of surgery. Patient transferred to the ICU 09/13 for hypotension and afib with RVR. INDICATION: Atrial Fibrillation INR GOAL: 2-3 HOME REGIMEN: 3 mg on Saturday/Saturday, 5 mg all other days (last dose prior to admission was on 09/03) OTHER ANTICOAGULATION: Enoxaparin 80 mg BID DRUG INTERACTIONS: Amiodarone started 09/13 (strong inhibitor of warfarin metabolism. 50% do se reduction recommended after 7-14 days of concomitant therapy) PATIENT DIET: fat and cholesterol modified Recent Labs Lab 09/14/19 0409 09/13/19 0405 09/12/19 1627 09/12/19 0431 09/10/19 1553 HGB -- 10.0* -- 9.8* -- 12.7* PLT -- 154 -- 161 -- 191 INR 1.3 1.2 1.2 -- < > -- < > = values in this interval not displayed. DATE 09/14 09/13 09/12 09/11 INR 1.3 1.2 1.2 1.2 Warfarin Dose 3 mg planned 5 mg 5 mg 3 mg - dose omitted per MAR Assessment: The INR is Below the target range of 2-3, however, is starting to trend up as we would expe ct following 2 doses. Patient remains in ICU on amiodarone infusion. Drug interaction not expected to take effect for 7-14 days of concomitant therapy. We will continue to monitor for dose reduction. On enoxaparin therapeutic dose for AF with RVR while INR is subtherapeutic. Plan: Warfarin 3 mg po today, per home regimen INR in am Pharmacy will continue to follow and modify therapy as indication. Karley Tobar, PharmD, [facility]CP 09/14/19 7:47 AM Jess Covarrubias DO - 09/13/2019 4:04 PM PST . [facility] Progress Note Primary Care Physician: Carlos Alberto Galeas TODAY S DATE: 09/13/2019 PATIENT NAME: Deborah Thomason : 1930 Subjective Denies complaints, resting this AM, denies chest pain or shortness of breath Objective Vital Signs: Temp: 37.3 C (99.1 F) BP: 94/67 Pulse: 96 Resp: 19 SpO2: 97 % Intake/Output Summary (Last 24 hours) at 09/13/2019 1604 Last data filed at 09/13/2019 1001 Gross per 24 hour Intake 2476 ml Output 1450 ml Net 1026 ml Weight: 74.3 kg (163 lb 11.2 oz) Exam: Gen: NAD, resting in bed Cv: irregular rate Chest: non-labored respirations Ext: L groin with Aquacel in place, erythema of left anterior thigh, non-blanching, no tong ration or drainage on Aquacel, appropriately tender to palpation Labs: Recent Labs 09/13/19 0405 09/12/19 1728 09/12/19 1627 09/12/19 1125 09/12/19 0431 09/11/19 1435 WBC 10.81 -- -- -- 9.67 -- HGB 10.0* -- -- -- 9.8* -- HCT 30.9* -- -- -- 31.1* -- PLT 154 -- -- -- 161 -- NA 137 -- -- -- 139 -- K 3.7 -- -- -- 4.2 -- CL 104 -- -- -- 104 -- CO2 25 -- -- -- 27 -- BUN 15 -- -- -- 17 -- GLU 100* -- -- -- 103* -- CALCIUM 8.6 -- -- -- 8.2* -- INR 1.2 -- 1.2 -- -- 1.2 TROPONIN -- 0.167* -- 0.136* -- -- OTHER STUDIES: Assessment and plan: Principal Problem: Atrial fibrillation with RVR Active Problems: Chronic atrial fibrillation Essential hypertension PVD (peripheral vascular disease) Bilateral carotid artery stenosis PAD (peripheral artery disease) Chronic diastolic heart failure Chronic anemia Postprocedural hypotension Cellulitis of left thigh 88 yo male with CLI LLE s/p L femoral endarterectomy now with persistent Atrial fibrillatio n with RVR and hypotension requiring additional pressor medications. -Okay with heparin drip at this time -Remains on Kailee, almost off then required additional up titration with recommendation to tr [place] to ICU for amiodarone loading for A fib with RVR per Cardiology -Continue Ancef for possible early cellulitis, could be his coloration but safer to start A bx -Continue ASA, Plavix and statin Electronically signed by: Jess Webber DO, 09/13/2019 4:04 PM Hai Amato MD - 09/13/2019 3:19 PM PSTFormatting of this note might be different from the [facility] Service: Cardiology Progress Note Hospital Day: LOS: 2 days Post-Op Day: 2 Days Post-Op SUBJECTIVE Patient Summary: 88 y.o. male with significant past medical history of AF on coumadin , CAD, HFpEF, HTN, PVD, bilateral carotid artery disease s/p right CEA, hx of CVA w/out resi dual deficit was admitted for limb ischemia. Patient has been following with vascular surger y for his PVD. On his last visit he presented with a nonhealing wound since. His last LE gamal ging study showed extremely diminished JEREMY and TBI values. Patient was admitted and underwen t today [employer] endarterectomy and angioplasty. EBL was 200-400ml. He was started neosynephrine intraop. He is currently on neosynephrine drip still hypotensive requiring higher doses of pressors and tachycardic to 130-140 a.fib RVR. He is requiring increasing demands for pressors and o n my recommendation was moved to ICU. He is lying comfortably in bed with no current complai nts of chest pain, SOB, lightheadedness, nausea, vomiting. he complaints of pain in left low er extremity and not being able to move it because of pain. Scheduled Medications ceFAZolin 1 g Intravenous 3 times per day clopidogrel 75 mg Oral Daily digoxin 125 mcg Oral Daily enoxaparin 40 mg Subcutaneous Daily potassium chloride 20 mEq Oral Daily tamsulosin 0.8 mg Oral Daily after breakfast tocopherol 400 Units Oral Daily warfarin 3 mg Oral Once per day on Sat warfarin 5 mg Oral Once per day on Sat Sat warfarin per pharmacy Other Pharmacy Consult Continuous Infusions amiodarone 1 mg/min (09/13/19 1324) amiodarone niCARdipine Stopped (09/11/19 1706) phenylephrine 20 mcg/min (09/13/19 1325) PRN Medications HYDROmorphone, oxyCODONE, senna OBJECTIVE Vital Signs: BP 94/67 | Pulse 96 | Temp 37.3 C (99.1 F) (Oral) | Resp 19 | Ht 1.727 m (5' 8") | Wt 74.3 kg (163 lb 11.2 oz) | SpO2 97% | BMI 24.89 kg/m Intake/Output Summary (Last 24 hours) at 09/13/2019 1519 Last data filed at 09/13/2019 1001 Gross per 24 hour Intake 2476 ml Output 1450 ml Net 1026 ml EXAM Constitutional: Well-developed. Neck: No JVD present. No thyromegaly present. Cardiovascular: Regular rhythm, S1 normal and S2 normal. No murmur heard. Pulses: Radial pulses are 2+ on the right side, and 2+ on the left side. Pulmonary/Chest: Effort normal and breath sounds normal. No wheezes. No rales. Abdominal: Soft. No tenderness. Musculoskeletal: No edema. Neurological: Alert. No cranial nerve deficit. Skin: Warm and dry. DATA CBC: Lab Results Component Value Date WBC 10.81 09/13/2019 RBC 3.32 (L) 09/13/2019 HGB 10.0 (L) 09/13/2019 HCT 30.9 (L) 09/13/2019 MCV 93.1 09/13/2019 MCH 30.1 09/13/2019 MCHC 32.4 09/13/2019 PLT 154 09/13/2019 MPV 10.4 09/13/2019 DIFFTYPE AUTOMATED 09/13/2019 CMP: Lab Results Component Value Date NA 137 09/13/2019 K 3.7 09/13/2019 CL 104 09/13/2019 CO2 25 09/13/2019 ANIONGAP 12 09/13/2019 BUN 15 09/13/2019 GLOB 2.8 11/18/2017 AGRATIO 1.3 11/18/2017 BILITOT 1.0 01/01/2017 AST 40 01/01/2017 ALT 49 (H) 01/01/2017 EGFR >60 09/13/2019 CPK: No components found for: CKTOTAL Troponin I: No components found for: TROPONINI TSH: No results found for: TSH Lab Results Component Value Date BNP 693 (H) 01/02/2017 ASSESSMENT & PLAN Chronic atrial fibrillation with RVR in post op status Heart failure preserved LV systolic function Mild troponin elevation in the setting of tachyrhythmia, post op status likely from demand ischemia Severe PVD s/p left femoral enterectomy for critical limb ischemia Bilateral carotid disease with hx of right carotid endarterectomy Hx of CVA with no residual deficit COPD Former smoker Consider IV fluid hydration with close monitoring of volume status and respiratory distress and use IV lasix as needed Pressors as needed IV amiodarone for rate control Metoprolol when he can tolerate and uptitrate as needed Anticoagulation with heparin drip( if ok with vascular surgery) and coumadin Code Status: Full Code [facility]urag Villa [facility] 09/13/2019 1:43 PM PSTFormatting of this note might be different from the origi nal. Pharmacy Warfarin Monitoring: Deborah Thomason is an 88 year old male admitted for limb ischemia. He underwent planned [employer] endarterectomy and angioplasty on 09/11/19. Per district sales manager reconciliation, warfarin w as on hold since 09/03 in anticipation of surgery. Patient transferred to ICU 09/13 for hypotension and afib RVR, initiated on amiodarone bolus /drip Recent Labs Lab 09/13/19 0405 09/12/19 1627 09/12/19 0431 09/11/19 1435 09/10/19 1553 HGB 10.0* -- 9.8* -- -- 12.7* HCT 30.9* -- 31.1* -- -- 39.4 PLT 154 -- 161 -- -- 191 INR 1.2 1.2 -- 1.2 < > -- < > = values in this interval not displayed. DATE 09/13 09/12 09/11 INR 1.2 1.2 1.2 Warfarin Dose Plan 5 mg 5 mg 3 mg Assessment: The INR is Below the target range of 2-3, warfarin had been on hold since 09/03 in anticipat ion for surgery. Restarted 09/11, likely going to start seeing INR trend back up in the next day or so. Eating 100% of meals Amiodarone started 09/13, monitor for need to dose reduce On enoxaparin for DVT prophylaxis as INR is subtherapeutic, monitor for ability to disconti nue Plan: Pharmacy will order warfarin 5 mg today per home dose. INR remains therapeutic, however, wi ll closely monitor new DDI with amiodarone INR in AM. Pharmacy will continue to follow and modify therapy as indicated. Mia West, PharmD, BCCCP Kristine Mcdonnell PT - 09/13/2019 1:11 PM PSTFormatting of this note might be different from the kailey moncada. 09/13/19 1310 PT Visit Summary PT Visit Type Missed Visit (medical issue) Next Visit Information 09/13, Pt transferred to ICU with hypotension and A-fib with RVR. Hol d today. Anticipated Discharge Disposition (May need SNF pending medical recovery) Miles Stewart RN - 09/13/2019 12:44 PM PSTPatient off kailee in AM, at 1030 patient BP 75/55, back on kailee at 40 mcg/min. Patient started to go into AF RVR with HR 140-160's. notified. Report called to Paige DELGADO, agreed to continue care, all questions answered. Nika Lockett MD - 09/13/2019 8:27 AM PST Service:hospitalist Progress Note Hospital Day: LOS: 2 days SUBJECTIVE Patient Summary: refer to H&P and consult note for details Events Overnight: Patient seen and examined,denies CP no SOB on 2 L O2 no abdominal p ain,labile hypotension this morning BP is better has been taken off kailee, noted Afib HR is la bile >100 pain is overall controlled,stable hgb,INR is 1.2,RN present, Addressed all ques tions Scheduled Medications clopidogrel 75 mg Oral Daily digoxin 125 mcg Oral Daily enoxaparin 40 mg Subcutaneous Daily potassium chloride 20 mEq Oral Daily tamsulosin 0.8 mg Oral Daily after breakfast tocopherol 400 Units Oral Daily warfarin 3 mg Oral Once per day on Sat warfarin 5 mg Oral Once per day on Sat Sat warfarin per pharmacy Other Pharmacy Consult Continuous Infusions niCARdipine Stopped (09/11/19 1706) phenylephrine 20 mcg/min (09/13/19 5301) PRN Medications HYDROmorphone, oxyCODONE, senna OBJECTIVE Vital Signs: BP 99/61 | Pulse 102 | Temp 37.2 C (98.9 F) (Oral) | Resp 16 | Ht 1.727 m (5' 8") | Wt 74.3 kg (163 lb 11.2 oz) | SpO2 97% | BMI 24.89 kg/m Intake/Output Summary (Last 24 hours) at 09/13/2019 0878 Last data filed at 09/13/2019 0530 Gross per 24 hour Intake 3100 ml Output 1100 ml Net 2000 ml General appearance: alert, appears stated age, cooperative and no distress Head: Normocephalic, without obvious abnormality, atraumatic Neck: no adenopathy, no carotid bruit, no JVD, supple, symmetrical, trachea midline and thy roid not enlarged, symmetric, no tenderness/mass/nodules Lungs: clear to auscultation bilaterally Heart: IRRR Abdomen: soft, non-tender; bowel sounds normal; no masses, no organomegaly Extremities: Both feet warm to touch, with good color, + small ulcer on the lateral side of the left 5th digit Pulses: 2+ and symmetric Neurologic: Grossly normal AO3 non focal DATA BMP 137 104 15 100* 3.7 25 1.00 CaMgPhos 8.6 LFT CBC 10.81 10.0* 154 30.9* Coag 1.2 Last labs from current encounter as of 09/13/19-08:27 Recent Labs 09/12/19 1728 09/12/19 1125 TROPONIN 0.167* 0.136* No results for input(s): PROCALCITONI in the last 72 hours. Recent Labs 09/13/19 0405 09/12/19 0431 WBC 10.81 9.67 HGB 10.0* 9.8* HCT 30.9* 31.1* PLT 154 161 Recent Labs 09/13/19 0405 09/12/19 0431 NA 137 139 K 3.7 4.2 CL 104 104 CO2 25 27 BUN 15 17 CREA 1.00 1.08 CALCIUM 8.6 8.2* No results for input(s): MG in the last 168 hours. Microbiology Results (72 hrs) Procedure Component Value Units Date/Time MRSA NAAT [[id number]] Collected: 09/10/19 1554 Order Status: Completed Lab Status: Final result Updated: 09/10/19 1856 Specimen: Tissue from Nares SOURCE: NARES(NOSE) Result NEGATIVE Comment: [place] [facility] [place] [place] [address];[place] [address] No results found for this or any previous visit (from the past 360 hour(s)). Results for orders placed or performed in visit on 06/10/19 ECG 12 lead Result Value Ref Range INTERPRETATION TEXT Atrial fibrillation Possible Anterior infarct , age undetermined Abnormal ECG No previous ECGs available Please refer to Providers office visit note for Providers Interpretation. Confirmed by [facility] [place] Read Only, JUAN Warren ([id number]), school photograph editor Maximiliano Yee ([id number]) on 019 2:24:36 PM I have reviewed the above labs and radiology reports. PROBLEM LIST Principal Problem: PAD (peripheral artery disease) Active Problems: Chronic atrial fibrillation Essential hypertension PVD (peripheral vascular disease) Bilateral carotid artery stenosis Chronic diastolic heart failure Stage 3 chronic kidney disease Chronic anemia I attest that this clinical assessment using ASPEN criteria 1 is accurate for this patient and supports that as a medical diagnosis. A specific nutrition treatment plan will be imple mented as outlined in the registered dietitian's plan of care. ASSESSMENT & PLAN PVD s/p femoral endarterectomy and angioplasty as per vascular surgery On plavix, warfarin Prn pain medication Chronic Afib continue digoxin and resume metoprolol half dose due to borderline BP monito r on Telemetry consult pharmacy for dosing monitoring and adjustments Daily INR goal is 2-3 d/w and consulted due to borderline BP and Afib RVR Chronic diastolic HF seems stable and compensated for now resume lasix once BP is holding o briseyda for the rest of shift CKD stage 3 monitor creatinine Avoid nephrotoxic meds Chronic anemia due to CKD will monitor Transfuse as necessary to keep hgb 7-8 DVT prophylaxis already on warfarin PT/OT eval and tx and CW for discharge planning Review of H/P, imaging and labs, formulation of assessment and plan, discussion with the pa tient/family, staff, and providers. Portions of this chart may have been copied from previous notes for continuity of care purp oses. Disposition: Admitted Code Status: Full Code Nika Corea MD 09/13/2019 edijune, Fadia Marrero RN - 09/13/2019 6:04 AM PSTNeo running at 40 mcg/min SBP 100-120's titrated to 20 mcg/min SBP >90 will continue to monitor BP. Patient unaware that IV was removed while he was sleepi ng. Otherwise, hourly rounding uneventful. Chart check complete. Fadia Estrada RN Electronic ally signed by Fadia Clayton RN at 09/13/2019 6:05 AM PSTChio Ortiz [facility] - 09/12/2019 9:56 PM PST Pharmacy Warfarin Monitoring: Deborah Thomason male 88 y.o., admitted for limb ischemia. 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 Per district sales manager reconciliation, warfarin was on hold since 09/03 in anti cipation of surgery. Pharmacy consulted to dose warfarin per: Dr. Herrera INDICATION: Atrial Fibrillation INR GOAL: 2-3 HOME REGIMEN: 3 mg on Saturday/Saturday, 5 mg all other days (31 mg/week) (last dose prior to a dmission was on 09/03) OTHER ANTICOAGULATION: Enoxaparin 40 mg daily (DVT prophylaxis until INR is therapeutic) DRUG INTERACTIONS: Clopidogrel PATIENT DIET: fat and cholesterol modified diet started this evening Recent Labs Lab 09/12/19 1627 09/12/19 0431 09/11/19 1435 09/11/19 0648 09/10/19 1553 HGB -- 9.8* -- -- 12.7* PLT -- 161 -- -- 191 INR 1.2 -- 1.2 1.2 -- DATE 09/12 09/11 INR 1.2 1.2 Warfarin Dose 5 mg 3 mg Assessment: The INR is below the target range of 2-3 which is expected because of dose being held since 09/03/2019 Giving 5 mg today per home dosing regimen Plan: Warfarin 5 mg po today INR in am Pharmacy will continue to follow and modify therapy as indication. CHIO ORTIZ [facility] 9:45 PM 09/12/2019 Marc Stewart RN - 09/12/2019 6:57 PM PSTIn AM patients SBP dropped to 69-80 with MAPS 55-60. Patien t asymptomatic, trendelenburg, 500 fb and albumin, SBP in 90's with map >65. On kailee at 40-6 0 mcg for majority of shift. MD, vascular, sepsis RN and study coordinator aware. Currently on 20 mcg of kailee with sbp 110's. End of shift chart check complete. Oma Kumar RN Ayala Covarrubias DO - 09/12/2019 5:16 PM PSTFormatting of this note might be different from the rand dominguez. [facility] Progress Note Primary Care Physician: Carlos Alberto Galeas TODAY S DATE: 09/12/2019 PATIENT NAME: Deborah Thomason : 1930 Subjective Patient with reported hypotension earlier after scheduled metoprolol administration, fluid bolus and albumin per medicine recommendations, Hgb stable, no signs of bleeding, troponin e levated, denies chest discomfort, pressure or shortness of breath. Objective Vital Signs: Temp: 37.2 C (99 F) BP: 96/64 Pulse: 100 Resp: 20 SpO2: 98 % Intake/Output Summary (Last 24 hours) at 09/12/2019 1716 Last data filed at 09/12/2019 1651 Gross per 24 hour Intake 3913.75 ml Output 2050 ml Net 1863.75 ml Weight: 73.3 kg (161 lb 9.6 oz) Exam: Gen: NAd, resting in bed, awakens to voice, appears comfortable, hard of hearing Ext: L DP palpable, wounds dry, left groin incision dry with Aquacel in place, no appreciab le hematoma. Labs: Recent Labs 09/12/19 1125 09/12/19 0431 09/11/19 1435 09/11/19 0648 09/10/19 1553 WBC -- 9.67 -- -- 6.45 HGB -- 9.8* -- -- 12.7* HCT -- 31.1* -- -- 39.4 PLT -- 161 -- -- 191 NA -- 139 -- -- 137 K -- 4.2 -- -- 3.8 CL -- 104 -- -- 101 CO2 -- 27 -- -- 28 BUN -- 17 -- -- 21 GLU -- 103* -- -- 91 CALCIUM -- 8.2* -- -- 9.8 INR -- -- 1.2 1.2 -- TROPONIN 0.136* -- -- -- -- Fingerstick Blood Glucoses: No results for input(s): POCGLU in the last 72 hours. Assessment and plan: Principal Problem: PAD (peripheral artery disease) Active Problems: Chronic atrial fibrillation Essential hypertension PVD (peripheral vascular disease) Bilateral carotid artery stenosis Chronic diastolic heart failure Stage 3 chronic kidney disease Chronic anemia Hold Metoprolol for hypotension, ambulate later today if BP improves, continue warfarin and Plavix for Atrial fibrillation, trend troponins to exclude [place]. Electronically signed by: Jess Webber DO, 09/12/2019 5:16 PM Nika Locktet MD - 09/12/2019 8:36 AM PST Service:hospitalist Progress Note Hospital Day: LOS: 1 day SUBJECTIVE Patient Summary: refer to H&P and consult note for details Events Overnight: Patient seen and examined,denies CP or SOB on 2 L O2 no abdominal p ain,labile hypotension remains on pressors,pain is overall controlled, Addressed all ques tions Scheduled Medications albumin 25 g Intravenous Once albumin clopidogrel 75 mg Oral Daily digoxin 125 mcg Oral Daily enoxaparin 40 mg Subcutaneous Daily potassium chloride 20 mEq Oral Daily tamsulosin 0.8 mg Oral Daily after breakfast tocopherol 400 Units Oral Daily warfarin 3 mg Oral Once per day on Sat warfarin 5 mg Oral Once per day on Sat Sat warfarin per pharmacy Other Pharmacy Consult Continuous Infusions niCARdipine Stopped (09/11/19 1706) phenylephrine 60 mcg/min (09/12/19 1056) PRN Medications HYDROmorphone, oxyCODONE, senna OBJECTIVE Vital Signs: BP 116/63 | Pulse 85 | Temp 36.9 C (98.4 F) (Oral) | Resp 21 | Ht 1.727 m (5' 8") | Wt 73.3 kg (161 lb 9.6 oz) | SpO2 99% | BMI 24.57 kg/m Intake/Output Summary (Last 24 hours) at 09/12/2019 1209 Last data filed at 09/12/2019 1006 Gross per 24 hour Intake 2052.75 ml Output 1450 ml Net 602.75 ml General appearance: alert, appears stated age, cooperative and no distress Head: Normocephalic, without obvious abnormality, atraumatic Neck: no adenopathy, no carotid bruit, no JVD, supple, symmetrical, trachea midline and thy roid not enlarged, symmetric, no tenderness/mass/nodules Lungs: clear to auscultation bilaterally Heart: regular rate and rhythm, S1, S2 normal, no murmur, click, rub or gallop Abdomen: soft, non-tender; bowel sounds normal; no masses, no organomegaly Extremities: Both feet warm to touch, with good color, + small ulcer on the lateral side of the left 5th digit Pulses: 2+ and symmetric Neurologic: Grossly normal AO3 non focal DATA BMP 139 104 17 103* 4.2 27 1.08 CaMgPhos 8.2* LFT CBC 9.67 9.8* 161 31.1* Coag 1.2 Last labs from current encounter as of 09/12/19-12:09 Recent Labs 09/12/19 1125 TROPONIN 0.136* No results for input(s): PROCALCITONI in the last 72 hours. Recent Labs 09/12/19 0431 09/10/19 1553 WBC 9.67 6.45 HGB 9.8* 12.7* HCT 31.1* 39.4 PLT 161 191 Recent Labs 09/12/19 0431 09/10/19 1553 NA 139 137 K 4.2 3.8 CL 104 101 CO2 27 28 BUN 17 21 CREA 1.08 1.18 CALCIUM 8.2* 9.8 No results for input(s): MG in the last 168 hours. Microbiology Results (72 hrs) Procedure Component Value Units Date/Time MRSA NAAT [[id number]] Collected: 09/10/19 1555 Order Status: Completed Lab Status: Final result Updated: 09/10/19 1574 Specimen: Tissue from Nares SOURCE: NARES(NOSE) Result NEGATIVE Comment: [place] [facility] [place] [address];[place] [address] No results found for this or any previous visit (from the past 360 hour(s)). Results for orders placed or performed in visit on 06/10/19 ECG 12 lead Result Value Ref Range INTERPRETATION TEXT Atrial fibrillation Possible Anterior infarct , age undetermined Abnormal ECG No previous ECGs available Please refer to Providers office visit note for Providers Interpretation. Confirmed by [facility] [place] Read Only, [facility] [place] ([id number]), school photograph editor Maximiliano Yee ([id number]) on 019 2:24:36 PM I have reviewed the above labs and radiology reports. PROBLEM LIST Principal Problem: PAD (peripheral artery disease) Active Problems: Chronic atrial fibrillation Essential hypertension PVD (peripheral vascular disease) Bilateral carotid artery stenosis Chronic diastolic heart failure Stage 3 chronic kidney disease Chronic anemia I attest that this clinical assessment using ASPEN criteria 1 is accurate for this patient and supports that as a medical diagnosis. A specific nutrition treatment plan will be imple mented as outlined in the registered dietitian's plan of care. ASSESSMENT & PLAN PVD s/p femoral endarterectomy and angioplasty as per vascular surgery On plavix, warfarin Prn pain medication Chronic Afib continue digoxin and hold metoprolol due to low BP monitor on Telemetry consult pharmacy for dosing monitoring and adjustments Daily INR hypotension remains on pressors and IVF boluses as per vascular surgery team recc ,dc all B P meds and monitor, per NURSERY NURSE is aware Chronic diastolic HF seems stable and compensated for now resume lasix once BP is in accept able range CKD stage 3 monitor creatinine Avoid nephrotoxic meds Chronic anemia due to CKD will monitor Transfuse as necessary to keep hgb 7-8 DVT prophylaxis already on warfarin PT/OT eval and tx and CW for discharge planning Review of H/P, imaging and labs, formulation of assessment and plan, discussion with the pa tient/family, staff, and providers. Portions of this chart may have been copied from previous notes for continuity of care purp oses. Disposition: Admitted Code Status: Full Code Nika Corea MD 09/12/2019 Antonio, Fadia Marrero RN - 09/12/2019 6:37 AM PSTPatient on 40 mcg/min of kailee. Attempted to titrate down, but SB P <90 will continue to titrate off kailee. Patient on 2-3 L NC. L groin site remained unchanged C/D/I. Patient still complains of a lot of pain while palpating site. Doppler lower extremi ty pulses. Chart check complete. Fadia Estrada RN Karley Pichardo, [facility] - 09/11/2019 6:50 PM PSTFormatting of thi s note might be different from the original. Pharmacy Warfarin Monitoring: Deborah Thomason male 88 y.o., admitted for limb ischemia. 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 Per district sales manager reconciliation, warfarin was on hold since 09/03 in anti cipation of surgery today. Pharmacy consulted to dose warfarin per: Dr. Herrera INDICATION: Atrial Fibrillation INR GOAL: 2-3 HOME REGIMEN: 3 mg on Saturday/Saturday, 5 mg all other days (last dose prior to admission was on 09/03) OTHER ANTICOAGULATION: Enoxaparin 40 mg daily (DVT prophylaxis until INR is therapeutic) DRUG INTERACTIONS: none PATIENT DIET: fat and cholesterol modified diet started this evening Recent Labs Lab 09/11/19 1435 09/11/19 0648 09/10/19 1553 HGB -- -- 12.7* PLT -- -- 191 INR 1.2 1.2 -- DATE 09/11 INR 1.2 Warfarin Dose 3 mg planned Assessment: The INR is Below the target range of 2-3, to be expected after prolonged hold. We will initiate the patient on their home dosing regimen. Plan: Warfarin 3 mg po today, per home regimen. INR in am Pharmacy will continue to follow and modify therapy as indicated. Karley Tobar, FeliD, BCCCP 09/11/19 6:49 PM documented in thi s encounter H&P Notes Osmin Garber MD - 09/11/2019 7:20 AM PSTI have seen and examined patient. No acute issue s. Plan for left SYRUP [employer] SU[employer]OR endarterectomy, LLE angiogram, possible intervention. Consent obtaine carolina Garber MD Vascular Surgery smin Garber MD - 09/02/2019 11:15 AM PSTFormatting of this note might be different from the origin al. [facility] [address] [place] [address] Office: [phone] DATE OF VISIT: 09/02/2019 PATIENT NAME: Deborah Thomason : 1930; AGE: 88 y.o.; Sex:M PHONE NUMBER: ; (Work); ; PHYSICIAN: Osmin Garber MD PRIMARY CARE / REFERRING PHYSICIAN: Carlos Alberto Galeas,* / Bob Davis D / [id number] / [place] [id number] / REASON FOR EVALUATION / CHIEF COMPLAINT: PAD HISTORY OF PRESENT ILLNESS: Mr Thomason is a pleasant 88 y.o. male, with a past medical history significant for atrial flu tter, coronary artery disease, previous CVA, and peripheral vascular disease, who is referre d to [facility] for evaluation of bilateral carotid artery disease and bilateral peripheral arterial disease. Patient has multiple medical issues. Patient is able to ambulate some however he r eports bilateral leg fatigue. Patient denies pain at rest in either lower extremity. Patient has some minor abrasions along the anterior surface of the bilateral ankles, but has no bonnie t wounds at this time. Patient is also limited by his other medical co-morbidities. Patient feels his life is pretty good right now as he is able to do the things he would like to do. Patient is currently on anticoagulation for his heart. Patient has history of a bypass on e right lower extremity, and a right carotid endarterectomy done in [place] many years ago. Patient denies any recent illness, fever, chills, chest pain, or [id number]. Patie nt denies any amaurosis or stroke/TIA symptoms. Since initial evaluation, patient's peripheral arterial disease has worsened. Patient did s ustain a wound along the left lower extremity recently that has not healed. Patient has been attempting to keep the wound clean. Patient's most recent echocardiogram was performed 2.5 years ago. Patient denies any symptoms associated with the carotid artery disease. Echocardiogram results from 01/28/2017: 1. Overall left ventricular systolic function is normal with, an EF between 65 - 70 %. 2. The right ventricle is normal in size and function. 3. There is moderate bi-atrial enlargement. 4. The ascending aorta (41 mm) and the sinuses of Valsalva (44 mm) are mildly dilated. 5. No significant valvular abnormalities are noted. CAROTID DUPLEX ULTRASOUND from 07/02/2019: IMPRESSION: 1. 50-69% stenosis of the right proximal ICA. 2. Probable 50-69% proximal left ICA stenosis, due to elevated flow velocity in the mid ICA . Proximal ICA not well evaluated due to heavily calcified arterial wall causing shadowing. 3. Greater than 70% stenosis of the distal CCA/arterial bulb junction, with 4.5 peak systol ic flow velocity increase. This has likely slightly worsened. 4. Findings suggest right subclavian steal, with retrograde vertebral arterial flow. 5. Transitional left vertebral arterial flow suggesting left subclavian stenosis. 6. If clinically indicated, CTA analysis could be helpful for to further evaluate stenoses, delineated above. Signed by: Katharine Giraldo Sean Sign Date/Time: 07/03/2019 9:57 AM VASCULAR LOWER EXTREMITY ARTERIAL BILATERAL WITH JEREMY SINGLE LEVEL from 07/27/2019: IMPRESSION: 1. Right JEREMY showed triphasic ORACLE EBS ARCHITECT and monophasic DPA waveforms. The JEREMY was normal. The TBI was mildly diminished. 2. Left JEREMY showed monophasic waveforms in all vessels. The JEREMY and TBI values were severel y diminished. 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 PVD (peripheral vascular disease) ([facility]) 02/06/2018 Urinary retention Past Surgical History: Procedure Laterality Date CAROTID ENDARTERECTOMY Right CATARACT REMOVAL WITH IMPLANT Bilateral 03/30/10 and 04/27/10 CORONARY ANGIOPLASTY without stent [facility] Approx [id number] FEMUR FRACTURE SURGERY Right 12/19/2016 Procedure: ORIF IM RODDING FEMORAL ANTEGRADE; Surgeon: Lambert Mancuso MD; Location: [facility] MAIN OR FEMUR FRACTURE SURGERY Left 12/19/2016 Procedure: ORIF IM RODDING FEMORAL TROCHANTERIC NAIL; Surgeon: Lambert Mancuso MD; Locati on: [facility] MAIN OR Heart/ Arrhythmia ablation Right femoral to below knee popliteal reverse saphenus vein graft 12/01/2013 Right common femoral endarterectomy with Vascu-Guard patch angioplasty, Right external mk ac stent angioplasty 7x29 mm, Angiography, Harvesting right greater saphenous vein, Dual - l umen on Q pain pump placement. [facility] - Dr. Delaney Right thigh biopsy 10/24/2011 nonspecific chronic dermatitis Ultrasound guided access, right common femoral artery 11/30/2013 Right iliac angiography, Right femoral angiography with runoff. [facility] - Dr. Delaney Social History Tobacco Use Smoking status: Former Smoker Packs/day: 1.00 Years: 50.00 Pack years: 50.00 Start date: 1952 Last attempt to quit: 2002 Years since quittin.1 Smokeless tobacco: Never Used Substance Use Topics Alcohol use: Yes Alcohol/week: 1.0 standard drinks Types: 1 Cans of beer per week Comment: beer on rare occasions Drug use: No Family History Problem Relation Age of Onset Coronary artery disease Mother CABG Heart attack Father Heart disease Father Emphysema Father No known problems Sister Coronary artery disease Brother * Brother health statuses unknown Current Outpatient Medications on File Prior to Visit Medication Sig Dispense Refill Ascorbic Acid (VITAMIN C) 500 MG CAPS Take 1 capsule by mouth Daily. calcium-vitamin D (CALCIUM 600+D) 600 mg-200 units per tablet Take 1 tablet by mouth 2 times daily. digoxin (LANOXIN) 125 mcg tablet Take 125 mcg by mouth. furosemide (LASIX) 20 mg tablet Take 20 mg by mouth. KLOR-CON M20 20 MEQ ER tablet metoprolol tartrate (LOPRESSOR) 25 mg tablet Take 25 mg by mouth 2 times daily. Multiple Vitamins-Minerals (CENTRUM SILVER) TABS Take 1 tablet by mouth Daily. tamsulosin (FLOMAX) 0.4 mg CAPS Take 2 capsules by mouth daily (after breakfast). (Alida ent taking differently: Take 0.4 mg by mouth daily (after breakfast).) 30 capsule 1 tocopherol (VITAMIN E) 400 units capsule vitamin E (dl, acetate) 400 unit capsule Take by oral route. warfarin (COUMADIN) 3 MG tablet Take 3 mg by mouth Daily. 3 mg on Mon and Fri warfarin (COUMADIN) 5 mg tablet Take 5 mg by mouth Daily. 5 mg on , Sat, , Sat , Sun No current facility-administered medications on file prior to visit. Allergies Allergen Reactions Naproxen Other (See Comments) States "put me in the hospital with kidney failure" States "put me in the hospital with kidney failure" Penicillins Swelling, Rash and Hives Lips swell eyes swell shut and pruritis Acetaminophen Rash Lisinopril Other (See Comments) Olmesartan Other (See Comments) Prednisone Other (See Comments) "Knocks heart out of rhythm" Comprehensive ROS performed and pertinent items described in the HPI. VITALS: Reviewed Exam CONSTITUTIONAL: Conversant. Well-developed. No acute distress. EYES: Anicteric sclerae. RESPIRATORY: Normal effort. Regular, even, and unlabored rate. CARDIOVASCULAR: No peripheral edema. Rate regular. ABD: non-tender SKIN: Tarkio, dependent rubor on left. MUSCULOSKELETAL: ROM not limited. Left foot cooler than right. No active wounds present. Pr evious surgical incisions on right lower extremity. Normal gait. NEUROLOGIC: Cranial nerves II-XII grossly intact. Alert and oriented x 3. PSYCHIATRIC: Appropriate affect VASCULAR: palpable femoral, weak on left, +carotid bruit bilaterally, strong monophasic dop pler signals on left, good biphasic signals on right. A/P Discussed imaging results from 07/2019 with the patient, which shows diffuse severe vascula r disease. We discussed surgical option. He will need a left common femoral endarterectomy. Will perform angiogram at that time with plan for possible stenting of iliacs, and LE inte rventions if possible. We have discussed benefits and risks of this procedure, including ble eding, infection, stroke, and . Patient is understanding, is agreeable to the procedure , and has signed consent for surgery on 09/11/2019. All questions and concerns addressed. Ryan teague understands and is agreeable. In terms of his carotid artery disease: patient is currently asymptomatic with less than 80 % stenosis of his bilateral carotid arteries. Given this I would not offer treatment at thi s time. I would continue surveillance with duplex ultrasound. We agreed to repeat duplex i n 6 months. We reviewed stroke/TIA symptoms and need for urgent evaluation. Attending Note: Documentation assistance provided by Livia Ch ([email or web address]). Information recorded by the scribe has been reviewed and validated by me. I agree with its contents. Signed by: Raiza Mccall 09/02/19, 11:48 AM Osmin Garber MD Vascular Surgery document ed in this encounter Consult Notes Hamida Garcia RN - 09/14/2019 4:49 PM PSTAssociated Order(s): IP CONSULT TO WOUND OSTO MY NURSE Service: Wound Care Consult Note Hospital Day: 3 SUBJECTIVE Patient Summary: Patient had angioplasty and Endarectomy 09/11 for ischemic limb. Alida ent stated he has had lateral foot wound for approximately 3 months. Dalton pain on "the littl e toe" no open wound found. Unknown cause of foot wound. Patient unable to answer when he la st got new shoes. Redness to 1st and second toes along with lateral foot wound suggests poss ible ill fitting shoes. OBJECTIVE 09/14/19 1645 Wound 09/11/19 0722 Other (comment) Left lateral foot abrasion Placement Date/Time: 09/11/19 07 Present on Hospital Admission: Yes Primary Wound Type : Other (comment) Side: Left Orientation: lateral Location: foot Wound Subtype: abrasion Wound WDL ex Base scab;pink;dry Wound Base Comment Stable scab in place Periwound Area pink;dry;intact Periwound Comment Flaking callused area Edges callused Wound Length (cm) 1 cm Wound Width (cm) 1 cm Wound Surface Area (cm^2) 1 cm^2 Drainage Amount none Wound Cleaning cleansed with;sterile normal saline Wound Interventions povidone-iodine applied Dressing (betadine) Wound Image Visit Summary WOCN Frequency (Weekly) WOCN Visit Summary Dry skin at ankle cleansed, bilateral feet and toes assessed, betadine t o 1st, 2nd, and lateral foot Next Wound/Ostomy Visit Date 09/21/19 PROBLEM LIST Patient Active Problem List Diagnosis Femur fracture, left Femur fracture, right Anticoagulant long-term use Benign prostatic hyperplasia with lower urinary tract symptoms Chronic atrial fibrillation Essential hypertension Squamous cell carcinoma of upper extremity Atopic dermatitis PVD (peripheral vascular disease) Hypotension Subclavian steal syndrome Interstitial lung disease Bilateral carotid artery stenosis PAD (peripheral artery disease) Chronic diastolic heart failure Stage 3 chronic kidney disease Chronic anemia Atrial fibrillation with RVR Postprocedural hypotension Cellulitis of left thigh ASSESSMENT & PLAN Left Lateral Foot Wound: Stable scabbing on lateral left foot. Dry flaking skin noted, most removed while cleansing. There is also redness on the left greater toe and second toe. Khushbu mmending painting with betadine BID. Thank you for allowing me to participate in the care of this patient. I will continue to follow with you. Please call if there are any additional questions. Hamida Garcia RN 16:49 llis, Angeles Garner , [facility] - 09/13/2019 12:38 PM PST . Service: Report Manager Initial Consult Note Deborah Thomason 88 y.o. Date of Admission: 09/11/2019 Reason for Consultation: atrial fib with RVR and hypotension Requesting Physician: Dr. Corea, Hospitalist History Obtained From: patient, chart review CHIEF COMPLAINT: hypotension Subjective HISTORY OF PRESENT ILLNESS The patient is a 88 y.o. male with significant past medical history of atrial fib/flutter o n Coumadin, bilateral carotid artery disease with previous R carotid endarterectomy, CVA (wi thout residual deficit), PVD, and CAD who came to the hospital on 09/11 for intervention by v ascular surgery r/t critical ischemia of his LLE. Today, we were asked to evaluate the alida ent as he had hypotension and rapid atrial fib intermittently since his L femoral endarterec zeynep by Dr. Garber on 09/11/19. Currently, his rate is in the 120s. His systolic BP was as low as 70 this morning. Due to need for increased pressor support and titration of rate-co ntrolling medications, patient was transferred to the ICU for further management. Active comorbid conditions include: - dysrhythmias; atrial flutter; present - CAD; of holy cross artery - hypertension; essential; with renal disease; without hypertensive heart disease; with CKD stage 1-4 - PVD - COPD - CVA - Drugs/Alcohol/Tobacco - tobacco use REVIEW OF SYSTEMS Review of Systems - Negative except for the following: Dermatological ROS: positive for pain and redness at left groin surgical site All other systems were reviewed and are negative. 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 PVD (peripheral vascular disease) (HCC) 02/06/2018 PVD (peripheral vascular disease) (HCC) Urinary retention PAST SURGICAL HISTORY Past Surgical History: Procedure Laterality Date ARTERY SURGERY Left 09/11/2019 Procedure: ENDARTERECTOMY FEMORAL; Surgeon: Osmin Garber MD; [place] [facility] [place] CAROTID ENDARTERECTOMY Right CATARACT REMOVAL WITH IMPLANT Bilateral 03/30/10 and 04/27/10 CORONARY ANGIOPLASTY without stent [facility] [place] Approx [id number] FEMUR FRACTURE SURGERY Right 12/19/2016 Procedure: ORIF IM RODDING FEMORAL ANTEGRADE; Surgeon: Lambert Mancuso MD; Location: [facility] MAIN OR FEMUR FRACTURE SURGERY Left 12/19/2016 Procedure: ORIF IM RODDING FEMORAL TROCHANTERIC NAIL; Surgeon: Lambert Mancuso MD; Locati on: [facility] MAIN OR Heart/ Arrhythmia ablation Right femoral to below knee popliteal reverse saphenus vein graft 12/01/2013 Right common femoral endarterectomy with Vascu-Guard patch angioplasty, Right external mk ac stent angioplasty 7x29 mm, Angiography, Harvesting right greater saphenous vein, Dual - l umen on Q pain pump placement. [facility] - Dr. Delaney Right thigh biopsy 10/24/2011 nonspecific chronic dermatitis Ultrasound guided access, right common femoral artery 11/30/2013 Right iliac angiography, Right femoral angiography with runoff. [facility] - Dr. Delaney ALLERGIES Allergies Allergen Reactions Naproxen Other (See Comments) States "put me in the hospital with kidney failure" States "put me in the hospital with kidney failure" Penicillins Swelling, Rash and Hives Lips swell eyes swell shut and pruritis Acetaminophen Rash Lisinopril Other (See Comments) Olmesartan Other (See Comments) Prednisone Other (See Comments) "Knocks heart out of rhythm" MEDICATIONS PRIOR TO ADMISSION Medications Prior to Admission Medication Sig Dispense Refill Ascorbic Acid (VITAMIN C) 500 MG CAPS Take 1 capsule by mouth Daily. calcium-vitamin D (CALCIUM 600+D) 600 mg-200 units per tablet Take 1 tablet by mouth 2 times daily. digoxin (LANOXIN) 125 mcg tablet Take 125 mcg by mouth. furosemide (LASIX) 20 mg tablet Take 20 mg by mouth. KLOR-CON M20 20 MEQ ER tablet metoprolol tartrate (LOPRESSOR) 25 mg tablet Take 25 mg by mouth 2 times daily. Multiple Vitamins-Minerals (CENTRUM SILVER) TABS Take 1 tablet by mouth Daily. tamsulosin (FLOMAX) 0.4 mg CAPS Take 2 capsules by mouth daily (after breakfast). (Alida ent taking differently: Take 0.4 mg by mouth daily (after breakfast).) 30 capsule 1 tocopherol (VITAMIN E) 400 units capsule vitamin E (dl, acetate) 400 unit capsule Take by oral route. warfarin (COUMADIN) 3 MG tablet Take 3 mg by mouth Daily. 3 mg on Mon and Fri warfarin (COUMADIN) 5 mg tablet Take 5 mg by mouth Daily. 5 mg on , Sat, , Sat , Sun SCHEDULED MEDICATIONS Reviewed. FAMILY HISTORY OF SIGNIFICANCE Family History Problem Relation Age of Onset Coronary artery disease Mother CABG Heart attack Father Heart disease Father Emphysema Father No known problems Sister Coronary artery disease Brother * Brother health statuses unknown SOCIAL HISTORY Social History Socioeconomic History Marital status: Spouse name: Not on file Number of children: Not on file Years of education: Not on file Highest education level: Not on file Occupational History Not on file Social Needs Financial resource strain: Not on file Food insecurity: Worry: Not on file Inability: Not on file Transportation needs: Medical: Not on file Non-medical: Not on file Tobacco Use Smoking status: Former Smoker Packs/day: 1.00 Years: 50.00 Pack years: 50.00 Start date: 1950 Last attempt to quit: 2002 Years since quittin.1 Smokeless tobacco: Never Used Substance and Sexual Activity Alcohol use: Not Currently Alcohol/week: 1.0 standard drinks Types: 1 Cans of beer per week Frequency: Never Comment: no alcohol for years Drug use: No Sexual activity: Not on file Lifestyle Physical activity: Days per week: Not on file Minutes per session: Not on file Stress: Not on file Relationships Social connections: Talks on phone: Not on file Gets together: Not on file Attends christianity service: Not on file Active member of club or organization: Not on file Attends meetings of clubs or organizations: Not on file Relationship status: Not on file Intimate partner violence: Fear of current or ex partner: Not on file Emotionally abused: Not on file Physically abused: Not on file Forced sexual activity: Not on file Other Topics Concern Not on file Social History Narrative Not on file PHYSICAL EXAM VITAL SIGNS Temp: [37.2 C (98.9 F)-37.5 C (99.5 F)] 37.2 C (98.9 F) Pulse: [83-144] 144 Resp: [13-34] 16 BP: (69-136)/(46-82) 99/61 Intake/Output Summary (Last 24 hours) at 09/13/2019 1238 Last data filed at 09/13/2019 1001 Gross per 24 hour Intake 3076 ml Output 1450 ml Net 1626 ml EXAM GEN: awake, alert, oriented x 3, NAD NEURO: PERRLA, EOMI, no facial asymmetry, 5/5 strength in BUE, 4/5 strength in RLE, 2/5 str ength in LLE GCS: 15 HEENT: sclerae clear, nonicteric, oral mmm, pink, very hard of hearing NECK: supple, trachea midline CV: irregular and tachycardic, S1/S2, no murmur, rub or gallop, peripheral pulses palpable, cap refill brisk LUNGS: clear b/l, no wheezing, rales or rhonchi, symmetric chest expansion, even/unlabored respirations ABD: soft, nondistended, nontender to palpation in upper quadrants, tender in LLQ near surg ical site, no masses, bowel tones active EXTR: no edema, clubbing or cyanosis SKIN: warm, dry, no mottling; diffuse redness to left groin/ upper thigh near surgical site ; surgical hydrocolloid dressing remains in place LINES/TUBES: PIVs PROBLEM LIST Principal Problem: Atrial fibrillation with RVR Active Problems: Chronic atrial fibrillation Essential hypertension PVD (peripheral vascular disease) Bilateral carotid artery stenosis PAD (peripheral artery disease) Chronic diastolic heart failure Chronic anemia Postprocedural hypotension Resolved Problems: * No resolved hospital problems. * Diagnostic Studies: Available labs and images have been reviewed and will be addressed as indicated in the assessment and plan. ASSESSMENT & PLAN NEURO: Bilateral carotid artery stenosis, s/p R CEA in remote history. CAM-ICU screening every shift. CV: Chronic atrial fib, now with RVR, as well as hypotension. Patient follows with Dr. Alea galvin in the clinic. History of previous attempt at ablation in 2007, unsuccessful. Patient has been in atrial fibrillation since. He is on digoxin and metoprolol at home, and has l abile low blood pressures. Unable to give metoprolol currently due to hypotension. Cardioantwan ferrell previously consulted by the hospitalist service. Will give 150 mg amiodarone now and be gin continuous infusion. Titrate phenylephrine to maintain MAP of 65. Chronic diastolic heart failure. Peripheral vascular disease s/p femoral endarterectomy and angioplasty by vascular surge ry on 09/11. Continue Plavix, warfarin. PULM: No acute issues. Patient on room air and protecting airway. GI/NUTRITION: Diet: fat and cholesterol modified. RENAL/LYTES: Currently with normal creatinine and eGFR, but there is history of chronic kidney diseas e, stage III. ID: Possible cellulitis at left groin surgical site/ upper thigh. Started on cefazolin, 1 g IV, TID. MRSA negative in nares. HEME: Normocytic anemia. CBC daily. No leukocytosis. ENDO: No issues. MUSC/SKIN: Skin care and pressure ulcer prevention per nursing standards. PROPHYLAXIS: Stress ulcer prophylaxis: N/A DVT prophylaxis: SCD's while in bed and Coumadin with INR goal 2-3 VAP: N/A Disposition: ICU plan of care as above. Code Status: Full Code Primary Care Physician: Carlos Alberto Galeas MD *Please bill 50 minutes of critical care time spent evaluating the patient, reviewing the d tara and formulating a plan exclusive of all other procedures. JUAN M Leung 09/13/2019 Janet Abraham MD - 09/11/2019 5:15 PM PST Service: Hospitalist Consult Note Pt: Deborah Thomason AGE/SEX: 88 y.o. male Date of Admission: 09/11/2019 Reason for Consult: Medical management of other underlying comorbid conditions Consult Requested by: Dr. Osmin Garber History Obtained From: Medical records CHIEF COMPLAINT: left HISTORY OF PRESENT ILLNESS The patient is a 88 y.o. male with significant past medical history of AF on coumadin, CAD , HFpEF, HTN, PVD, bilateral carotid artery disease s/p right CEA, hx of CVA w/out residual deficit was admitted for limb ischemia. Patient has been following with vascular surgery for his PVD. On his last visit he presente d with a nonhealing wound since--. His last LE imaging study showed extremely diminished AB I and TBI values. Patient was admitted and underwent today [employer] endarterectomy and angioplast y. EBL was 200-400ml. He was started neosynephrine intraop. Patient currently has no complaint, denies having chest pain, SOB, lightheadedness, nausea, vomiting. REVIEW OF SYSTEMS Review of Systems Constitutional: Negative for chills and fever. HENT: Negative for sore throat. Eyes: Negative for blurred vision. Respiratory: Negative for cough, sputum production and shortness of breath. Cardiovascular: Positive for leg swelling. Negative for chest pain, palpitations, orthopnea and PND. Gastrointestinal: Negative for abdominal pain, diarrhea, nausea and vomiting. Genitourinary: Negative for dysuria, frequency and urgency. Musculoskeletal: Negative for back pain and joint pain. Skin: Negative for rash. Neurological: Negative for sensory change, focal weakness and headaches. Psychiatric/Behavioral: The patient is not nervous/anxious. 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 PVD (peripheral vascular disease) (HCC) 02/06/2018 PVD (peripheral vascular disease) ([facility]) Urinary retention Past Surgical History: Procedure Laterality Date CAROTID ENDARTERECTOMY Right CATARACT REMOVAL WITH IMPLANT Bilateral 03/30/10 and 04/27/10 CORONARY ANGIOPLASTY without stent [facility] [place] Approx [phone] FEMUR FRACTURE SURGERY Right 12/19/2016 Procedure: ORIF IM RODDING FEMORAL ANTEGRADE; Surgeon: Lambert Mancuso MD; Location: [facility] MAIN OR FEMUR FRACTURE SURGERY Left 12/19/2016 Procedure: ORIF IM RODDING FEMORAL TROCHANTERIC NAIL; Surgeon: Lambert Mancuso MD; Locati on: [facility] MAIN OR Heart/ Arrhythmia ablation Right femoral to below knee popliteal reverse saphenus vein graft 12/01/2013 Right common femoral endarterectomy with Vascu-Guard patch angioplasty, Right external mk ac stent angioplasty 7x29 mm, Angiography, Harvesting right greater saphenous vein, Dual - l umen on Q pain pump placement. [facility] - Dr. Delaney Right thigh biopsy 10/24/2011 nonspecific chronic dermatitis Ultrasound guided access, right common femoral artery 11/30/2013 Right iliac angiography, Right femoral angiography with runoff. [facility] - Dr. Delaney Allergies Allergen Reactions Naproxen Other (See Comments) States "put me in the hospital with kidney failure" States "put me in the hospital with kidney failure" Penicillins Swelling, Rash and Hives Lips swell eyes swell shut and pruritis Acetaminophen Rash Lisinopril Other (See Comments) Olmesartan Other (See Comments) Prednisone Other (See Comments) "Knocks heart out of rhythm" Prior to Admission medications Medication Sig Start Date End Date Taking? Authorizing Provider Ascorbic Acid (VITAMIN C) 500 MG CAPS Take 1 capsule by mouth Daily. Yes Historical Juvencioi MD lay calcium-vitamin D (CALCIUM 600+D) 600 mg-200 units per tablet Take 1 tablet by mouth 2 time s daily. Yes Historical Provider, digoxin (LANOXIN) 125 mcg tablet Take 125 mcg by mouth. 11/20/17 Yes Historical Provider, furosemide (LASIX) 20 mg tablet Take 20 mg by mouth. Yes Historical Provider, MD WALKER-OFE M20 20 MEQ ER tablet 09/07/18 Yes Historical Provider, metoprolol tartrate (LOPRESSOR) 25 mg tablet Take 25 mg by mouth 2 times daily. Yes Histo rical Provider, Multiple Vitamins-Minerals (CENTRUM SILVER) TABS Take 1 tablet by mouth Daily. Yes Histor ical Provider, tamsulosin (FLOMAX) 0.4 mg CAPS Take 2 capsules by mouth daily (after breakfast). Patient taking differently: Take 0.4 mg by mouth daily (after breakfast). 01/17/17 Yes Will tommy Staples MD tocopherol (VITAMIN E) 400 units capsule vitamin E (dl, acetate) 400 unit capsule Take by oral route. Yes Historical Provider, warfarin (COUMADIN) 3 MG tablet Take 3 mg by mouth Daily. 3 mg on Mon and Fri Yes Histori christopher ProviderMD warfarin (COUMADIN) 5 mg tablet Take 5 mg by mouth Daily. 5 mg on , Sat, , Sat, Kinney n Yes Historical Provider, Family History Problem Relation Age of Onset Coronary artery disease Mother CABG Heart attack Father Heart disease Father Emphysema Father No known problems Sister Coronary artery disease Brother * Brother health statuses unknown Social History Social History Tobacco Use Smoking Status Former Smoker Packs/day: 1.00 Years: 50.00 Pack years: 50.00 Start date: 1952 Last attempt to quit: 2002 Years since quittin.1 Smokeless Tobacco Never Used Social History Substance and Sexual Activity Alcohol Use Not Currently Alcohol/week: 1.0 standard drinks Types: 1 Cans of beer per week Frequency: Never Comment: no alcohol for years Social History Substance and Sexual Activity Drug Use No PHYSICAL EXAM Vital Signs: BP 117/54 | Pulse 85 | Temp 36.5 C (97.7 F) (Axillary) | Resp 16 | Ht 1.727 m (5' 8 ") | Wt 71.6 kg (157 lb 13.6 oz) | SpO2 93% | BMI 24.00 kg/m Physical Exam Constitutional: He is oriented to person, place, and time. Pleasant elderly man, lying flat on the bed, not in any respiratory distress HENT: Head: Normocephalic and atraumatic. Mouth/Throat: Oropharynx is clear and moist. Eyes: Pupils are equal, round, and reactive to light. Neck: Normal range of motion. No JVD present. Cardiovascular: Normal rate. No murmur heard. Irregularly irregular rhythm Pulmonary/Chest: Effort normal and breath sounds normal. He has no wheezes. He has no rales . Abdominal: Soft. Bowel sounds are normal. There is no abdominal tenderness. Musculoskeletal: General: Edema present. Comments: Both feet warm to touch, with good color, + small ulcer on the lateral side of the left 5th digit Lymphadenopathy: He has no cervical adenopathy. Neurological: He is alert and oriented to person, place, and time. No cranial nerve deficit . Skin: Skin is warm. DATA Recent Results (from the past 24 hour(s)) Protime INR Result Value Ref Range INR 1.2 Protime INR Result Value Ref Range INR 1.2 PROBLEM LIST Principal Problem: PAD (peripheral artery disease) Active Problems: Chronic atrial fibrillation Essential hypertension PVD (peripheral vascular disease) Bilateral carotid artery stenosis Chronic diastolic heart failure Stage 3 chronic kidney disease Chronic anemia ASSESSMENT & PLAN PVD S/p femoral endarterectomy and angioplasty Defer to vascular surgery On plavix, warfarin Prn pain medication Chronic AF HR 80-110 Continue digoxin and metoprolol for rate control Telemetry Warfarin resumed by surgery , consult pharmacy for dosing monitoring and adjustments Daily INR HTN On metoprolol and lasix With intraop hypotension Will hold lasix for now Metoprolol continued for rate control but with BP paramaters Monitor BP closely Chronic diastolic HF Currently stable Resume lasix once BP is constantly w/in acceptable range CKD stage G3a Monitor creatinine Avoid additional nephrotoxic meds Chronic anemia With EBL of 200-400ml Check H/H Transfuse as necessary to keep hgb 7-8 DVT prophylaxis already on warfarin Thank you for this consult. We will follow this patient w/you. The plan was explained in detail to the patient, all questions were answered. All data was reviewed. Janet Herrera MD 09/11/2019 5:30 PM documented in this enco unter Miscellaneous Notes Op Note - Osmin Garber MD - 09/28/2019 8:[address] [facility] OPERATIVE REPORT PATIENT NAME: Deborah Thomason AGE: 89 y.o. TODAY'S DATE: 09/28/2019 Date of Procedure: 09/11/2019 Surgeon: Surgeon(s): MD Osmin Perkins MD Surgical Assists: Kendell Robertson PA-C Anesthesiologist: No responsible provider has been recorded for the case. Anesthesia: General Anesthesia Pre-op Diagnosis: Left lower extremity critical limb ischemia Post-op Diagnosis: Same Procedure: 1. Left common femoral endarterectomy with bovine pericardial patch 2. Left profunda femoral endarterectomy 3. Left external iliac artery endarterectomy 4. Aortogram 5. Left lower extremity angiogram 6. Left common iliac artery angioplasty and stent with 10 x 39 mm VBX, and 10 x 29 mm VBX 7. Left external iliac artery angioplasty and stent with 8 x 50 mm viabahn Indications: Mr. Devlin is an 88-year-old male who has a past medical history significant fo r hypertension, hyperlipidemia, CAD, peripheral vascular disease who presented to clinic wit h a left fifth metatarsal ulcer. Patient had previous studies which showed an JEREMY of 0.3 on the left. Patient had a week left common femoral artery pulse. CT scan showed severe sten osis of the left common femoral artery as well as the left common and external iliacs.Patien t was indicated for intervention given his left lower extremity critical limb ischemia. We discussed the risks, benefits, and alternatives to surgery. Patient wished to proceed with a left common femoral endarterectomy with a aortogram, Left iliac intervention. Consent was obtained. Findings: Severe left common femoral stenosis. Common and external iliac arteries with sev ere stenosis which responded well to angioplasty and stenting. Previously placed right LIA stent extended well into the aorta crossing ostium of left LIA origin. Estimated Blood Loss: 300 mL Transfused: No Complications: none Technique/Procedure Description: The patient was brought to the angio suite and placed in t he supine position. General endotracheal anesthesia was induced uneventfully.Preoperative a ntibiotic was delivered. The patient's abdomen and bilateral groins were prepped and draped in the usual sterile fashion.A timeout was held verifying patient, procedure to be performe d, and consent.We began the procedure by making a vertical incision in the left groin. This was carried down with electrocautery. The left common femoral was identified and the femor al sheath was incised. The common femoral profunda superficial femoral arteries were all di ssected sharply from the surrounding tissue. The inguinal ligament was lifted and the exter nal iliac artery was also only circumferentially dissected sharply from its its surrounding tissues. The patient was noted to have severe atherosclerotic disease with near occlusion o f the common femoral artery. Vesseloops were placed around the profunda, common femoral, ex ternal iliac, and superficial femoral arteries. Patient was then given systemic heparin.Cla mps were then applied to the external iliac artery above the inguinal ligament, and profunda . Using a #11 blade and arteriotomy was made. The incision was Extended proximally onto th e external iliac and distally onto the profunda femoris artery. The patient again was noted to have near occlusion of the common femoral and the ostium of the profunda femoris artery. The patient also had severe atherosclerosis of the external iliac artery. Using a Penfiel d a endarterectomy was performed of the common femoral and profunda femoris arteries. Using eversion technique endarterectomy of the external iliac artery was performed as well. We t hen introduced a bovine pericardial patch and patch to the artery from the external iliac on to the profunda femoris artery using 5-0 Prolene suture. Prior to completing the anastomosi s all vessels were allowed to Back bleeding and were flushed with heparinized saline. The a nastomosis was completed and the clamps released. The patient was noted to have a weak puls e at the common femoral artery. Given this the patch was accessed with a micropuncture regine barcenas. A wire was advanced and a 8 Chilean 23 cm Sheath was placed. A an aortogram was then co mpleted which showed severe atherosclerosis with near occlusion of the common and external i liac arteries. The patient was also noted to have a previously placed right common iliac ar yasmin stent which extended well past the ostium of the right common iliac and crossed the ost ium of the left common iliac artery. A glidewire was then able to be advanced however there was great difficulty advancing past the aortic bifurcation as I believe the wire was being hung up on the struts of the previous placed right common iliac stent. Dr. Peterson came to [facility] with the Left common, And external iliac artery stents. A catheter was then able to pass over this wire and the Glidewire was exchanged for a stiff Amplatz wire. Then introduced a 3 mm Whittier angioplasty balloon and dilated the common and external iliac arteries. After dilation with a 3 mm balloon we introduced a 5 mm balloon and again performed balloon angio plasty of the common and external iliac arteries. Given the severe calcification without wa s passed to first deploy are covered stents prior to being more aggressive with our balloon angioplasty. We then introduced a 10 mm x 39 mm VBX covered stent and positioned this at th e common iliac artery. This had to be deployed just distal to the ostium as the other stent from the right common iliac artery prevented us from doing a kissing stent as we feared bossman t the right stent would become Kinked and occluded. Once in good position this was deployed . We then introduced an additional 10 x 29 mm stent And deployed this To the level of the ex ternal iliac artery. The internal iliac artery was heavily diseased and appeared to be most ly occluded and therefore was covered. Extended this into the external iliac artery with an 8 by 5 viabahn stent. The common iliac was then post dilated with a 10 mm Whittier and the external iliac post dilated with an 8 mm Whittier. Repeat contrast injection showed brisk dai ling of the common and external iliac arteries on the left. There was a strong left common femoral artery pulse. I then performed an angiogram of the left lower extremity. The left superficial femoral artery was patent With scattered disease throughout. The popliteal lis ry was diseased and occluded at the below-knee pop. The tibioperoneal trunk was occluded. The Posterior tibial, peroneal arteries are occluded at the ostium. The anterior tibial art nikolay has disease proximally but is patent and the primary runoff to the foot. Given the lengt h of the procedure at this point I elected not to perform further lower extremity interventi on. I felt given the significant improvement in inflow disease the patient should get out o f rest pain as well as heal his wound. Therefore, the wire and sheath was removed. A sutur e was then placed in the patch. There was good hemostasis. The Doppler was then brought on to the field there was a strong multiphasic signal in the profunda femoris, SFA, and SYRUP [employer]PERVISOR. T he left groin wound was thoroughly irrigated. The incision was then closed in layers first with a 2-0 Vicryl, then 3-0 Vicryl. Phillips were used to re-approximate the skin. Sterile dressings were applied. The patient was noted to have a strong Dorsalis pedis Doppler signa l at the conclusion.All counts were correct at conclusion of the case.The patient tolerated the procedure well.The patient was awakened and extubated in the operating room transfer the recovery area in stable condition. I was present and scrubbed for the entire duration of th e procedure. Osmin Garber MD Vascular Surgery Electronically signed by: Osmin Garber MD, 09/28/2019 8:51 AM [facility] lan of Annabella Camp RN - 2019 2:10 PM PST Problem: Adult Inpatient Plan of Care Goal: Plan of Care Review 2019 1410 by Medina Pitts RN Outcome: Met 2019 1018 by Medina Pitts RN Outcome: Ongoing, not progressing Goal: Patient-Specific Goal Outcome: Met Goal: Absence of Hospital-Acquired Illness or Injury Outcome: Met Goal: Optimal Comfort and Wellbeing 2019 1410 by Medina Pitts RN Outcome: Met 2019 1018 by Medina Pitts RN Outcome: Ongoing, progressing Goal: Readiness for Transition of Care Outcome: Met Goal: Rounds/Family Conference Outcome: Met Problem: Fall Injury Risk Goal: Absence of Fall and Fall-Related Injury Outcome: Met Problem: Skin Injury Risk Increased Goal: Skin Health and Integrity Outcome: Met lan of Elysia - Medina Sandoval RN - 2019 10:19 AM PST Problem: Adult Inpatient Plan of Care Goal: Optimal Comfort and Wellbeing Outcome: Ongoing, progressing Problem: Adult Inpatient Plan of Care Goal: Plan of Care Review Outcome: Ongoing, not progressing Pt extremely upset this shift that he isn't medically ready for discharge. Pt stating that "you guys are trying to keep me here and trick me." Pt educated by multiple staff members on need to stay in the hospital. at bedside. Chart check complete. Medina Pitts RN lan of Tash Montesinos RN - 2019 9:57 AM [id number]: Medina DELGADO called and said that physical the rapy is recommending SNF and was asking about sending referrals. Referrals sent prior- [facility] has accepted in the computer. 1345: Medina DELGADO called and informed me that pt just wants to return home with family and wo uld like home health. Orders written for RN, PT and OT. Sent referrals to [facility]. Faxed orders to both. lan of Jenny Lambert RN - 09/19/2019 11: 54 PM PST Problem: Adult Inpatient Plan of Care Goal: Plan of Care Review Outcome: Ongoing, progressing Goal: Patient-Specific Goal Outcome: Ongoing, progressing Goal: Absence of Hospital-Acquired Illness or Injury Outcome: Ongoing, progressing Goal: Optimal Comfort and Wellbeing Outcome: Ongoing, progressing Goal: Readiness for Transition of Care Outcome: Ongoing, progressing Goal: Rounds/Family Conference Outcome: Ongoing, progressing Problem: Fall Injury Risk Goal: Absence of Fall and Fall-Related Injury Outcome: Ongoing, progressing Problem: Skin Injury Risk Increased Goal: Skin Health and Integrity Outcome: Ongoing, progressing lan of [facility] Liz Smith PT - 09/19/2019 4:34 PM PST Physical Therapy Re-Assessment, Treatment Note Recommended discharge disposition: usp facility(if refuses would recommend HH P T) Post discharge physical therapy recommendation: pt is motivated participant, will benefit from structured setting Equipment Recommendations: (has FWW per report; recommend only FWW not SPC to ambulate) Barriers to community-based discharge Cognitive Impairment, Physical Impairment, Level of assistance for ADLs/mobility, Lack of s ocial support, Home Design, Precautions, and Fall risk Planned Interventions: (may reflect documentation from different provider) balance training, gait training, bed m obility training, transfer training, stair training, strengthening, patient/family education , ROM (Range of Motion) Recommended Frequency: 5 times/wk for 7 days PT reassessment due 09/26/19 Next visit information: , vascular surgery, balance + cont stair training Summary: Session focused on progression and reassessment of pt mobility for discharge khushbu mmendation as pt reportedly very adamant about returning home to care for his who is bl ind. Pt noted to be in a-fib with HR varing 100-120s at rest both pre and post activity, as ymptomatic. He was agreeable to work on transfers, gait, and stairs this session. Pt is li mited by poor balance and deconditioning, requiring extra time and UE assist to stand or sit with unsteadiness upon initial rising. He was able to ambulate to [facility] for stair training (reports 6 LUZ at home); he performed 6 steps in stairwell but was unsteady with descending with LE buckling in weight acceptance on first step requiring MIN A to MOD A from PT for sa fety and eventually BUE placement on railing to complete. Pt HR noted to vary 130s-150s wit h this activity with pt again asymptomatic and SpO2 WNL on RA (RN informed immediately and n emelia DURBIN). Pt completes formal balance assessment with score 15/28 on Tinetti RO confirmi ng high fall risk (with 19 and below being cut-off). Extra time spent to discuss continued indication for SNF with pt still adamant about returning home. Pt overall lacks insight int o safety and is confused at times with nonsensical statements. He recounted to PT that he h ad 1-2 years ago he sustained GLF with resulting VALENCIA femur fxs, and that he discharged direc tly home from the hospital without any need for rehab, which seems very unlikely. May benef it from further cog assessment to determine safety of returning home and caring for his . Pt in recliner resting comfortably with needs met and no new complaints when session conc luded, BP post activity was 138/83 with HR 118. Precautions Precaution Comment: Monitor HR & BP Precautions/Limitations: falls, hard of hearing(high fall risk - 15/28 Tinetti) Cognitive Assessment Cognitive Comments: Pleasant and cooperative, seems oriented at times but also makes nonsen sical comments and does not seem to comprehend why he is still in the hospital Bed Mobility Supine to Sit, Level of [place]: contact guard assist Impairments: strength decreased, impaired balance Transfers Sit-Stand, Level of [place]: minimal assist (75% patient effort)(heavy reliance on UEs and extra time to stand) Stand-Sit, Level of [place]: minimal assist (75% patient effort)(poor eccentric contro l when asked to attempt without arms) Faj-Dyrtt-Dtx, Assistive Device: 2 wheeled walker (FWW), gait belt Safety Issues: balance decreased during turns, step length decreased, loses balance backwar d Gait Level of [place]: contact guard assist Assistive Device: 2 wheeled walker (FWW), gait belt Distance (feet): 150 Additional Documentation: safety, impairments, stairs (group) Safety Issues: balance decreased during turns, step length decreased Impairments: strength decreased, impaired balance Stairs Stairs, Comment: unsafe with descending initially, grasping at rail with VALENCIA hands Number of Stairs: 6 Handrail Location: right side (ascending) Level of [place]: minimal assist (75% patient effort) Assistive Device: 1 rail, gait belt Technique Used: step to step (ascending), step to step (descending) Safety Issues: balance decreased during turns Impairments: strength decreased, impaired balance Balance Sitting Balance: Static: good balance Sitting Balance: Dynamic: good balance Standing Balance: Static: fair balance Standing Balance: Dynamic: poor balance Additional Documentation: Tinetti (group) Goals Reflects last filed data and may be from multiple contributors. All Transfers Goal Most Recent Value LTG Status continued, progressing at 09/19/2019 1634 LTG [place] Level stand by assist at 09/12/2019 0845 Gait Goal Most Recent Value LTG Status continued, progressing, revised at 09/19/2019 1634 LTG [place] Level stand by assist at 09/12/2019 0845 LTG Assistive Device 2 wheeled walker (FWW) at 09/12/2019 0845 LTG Distance (feet) 300 at 09/19/2019 1634 Stair Goal Most Recent Value LTG Status continued, progressing [safety concerns] at 09/19/2019 1634 LTG [place] Level stand by assist at 09/12/2019 0845 LTG Assistive Device 2 rails at 09/12/2019 0845 LTG Number of Stairs 7 at 09/12/2019 0845 Timed TX Code Minutes: 68 lan of Care - Medina Pitts RN - 09/19/2019 4:25 PM PSTProblem: Adult Inpatient Plan of Care Goal: Plan of Care Review Outcome: Ongoing, progressing Goal: Readiness for Transition of Care Outcome: Ongoing, progressing Lowest BP 95/58, pt asymptomatic. SBPs 95-110s. 1530, pt had 9 beats of nonsustained Vtach, will continue to monitor. 1700: Pt working with PT, HR 130-150s. MD notified. 1745: At rest, HR 120-130s. Metoprolol added. Chart check complete. Medina Pitts RN lan of Care - Jenny Jones RN - 09/18/2019 11:15 PM PST Problem: Adult Inpatient Plan of Care Goal: Plan of Care Review Outcome: Ongoing, progressing Problem: Adult Inpatient Plan of Care Goal: Patient-Specific Goal Outcome: Ongoing, progressing Problem: Adult Inpatient Plan of Care Goal: Optimal Comfort and Wellbeing Outcome: Ongoing, progressing Problem: Fall Injury Risk Goal: Absence of Fall and Fall-Related Injury Outcome: Ongoing, progressing Problem: Skin Injury Risk Increased Goal: Skin Health and Integrity Outcome: Ongoing, progressing lan of Care - Herminio Gaston PT - 09/18/2019 1:22 PM PST Physical Therapy Treatment Note Recommended discharge disposition: usp facility Post discharge physical therapy recommendation: minimum 5 days of therapy/week, family inv olved/supportive, will benefit from structured setting, ongoing low intensity therapy Equipment Recommendations: (TBD) Barriers to community-based discharge Physical Impairment and Level of assistance for ADLs/mobility Planned Interventions: (per PT POC) (may reflect documentation from different provider) balance training, gait training, bed m obility training, transfer training, stair training, strengthening, patient/family education , ROM (Range of Motion) Recommended Frequency: 5 times/wk for 7 days PT reassessment due 09/19/19 Next visit information: 09/18, Vascular Surgery, Progress Gait, Monitor Vitals closely Summary: Patient resting in bed upon PT arrival, he is pleasant and cooperative but disori ented. He needs for safety with mobility as he has a tendency to move quickly. Noted to b e unsteady with initial standing. He denies pain, but his LEs are noted to be edematous. He needs only 1 person assist and mostly min A for all components of mobility. SNF is indicated . Pt is in agreement. Vitals at rest in supine: HR 78, BP 137/77, SpO2 97% RA. Vitals in si tting: HR 80, BP 111/65, SpO2 97% RA. Denies pain presently. Precautions Precaution Comment: Hypotension Precautions/Limitations: falls Cognitive Assessment Cognitive Comments: Forgetful, pleasant, follows instructions fairly well Mood/Behavior: cooperative, calm Orientation: disoriented to, time Arousal Level: opens eyes spontaneously Speech: spontaneous, clear Bed Mobility Additional Documentation: rolling, supine to/from sit Assistive Device: bed rails Roll Left, Level of [place]: stand by assist Supine to Sit, Level of [place]: minimal assist (75% patient effort) Sit to Supine, Level of [place]: minimal assist (75% patient effort) Transfers Additional Documentation: bed to/from chair, sit to/from stand Bed-Chair, Level of [place]: minimal assist (75% patient effort) Sit-Stand, Level of [place]: minimal assist (75% patient effort) Stand-Sit, Level of [place]: minimal assist (75% patient effort) Ilf-Culku-Abt, Assistive Device: 2 wheeled walker (FWW) Gait Gait Comments: Antalgic Level of [place]: minimal assist (75% patient effort) Assistive Device: 2 wheeled walker (FWW) Distance (feet): 25 Balance Sitting Balance: Static: good balance Sitting Balance: Dynamic: good balance Standing Balance: Static: fair balance Standing Balance: Dynamic: poor balance Goals Reflects last filed data and may be from multiple contributors. All Transfers Goal Most Recent Value LTG [place] Level stand by assist at 09/12/2019 0845 Gait Goal Most Recent Value LTG [place] Level stand by assist at 09/12/2019 0845 LTG Assistive Device 2 wheeled walker (FWW) at 09/12/2019 0845 LTG Distance (feet) 100 at 09/12/2019 0845 Stair Goal Most Recent Value LTG [place] Level stand by assist at 09/12/2019 0845 LTG Assistive Device 2 rails at 09/12/2019 0845 LTG Number of Stairs 7 at 09/12/2019 0845 lan of Care - Jeramy Moss MD - 09/18/2019 11:19 AM PSTPatient signed out to Dr. Yang on [facility]. Patient hemodynamically stable off pressors for 24 hours. Transfer orders plac ed. lan of Care - Soo Velasquez RN - 09/18/2019 6:12 AM PST Problem: Adult Inpatient Plan of Care Goal: Plan of Care Review Outcome: Ongoing, progressing Goal: Patient-Specific Goal Outcome: Ongoing, progressing Goal: Absence of Hospital-Acquired Illness or Injury Outcome: Ongoing, progressing Goal: Optimal Comfort and Wellbeing Outcome: Ongoing, progressing Goal: Readiness for Transition of Care Outcome: Ongoing, progressing Goal: Rounds/Family Conference Outcome: Ongoing, progressing Problem: Fall Injury Risk Goal: Absence of Fall and Fall-Related Injury Outcome: Ongoing, progressing Problem: Skin Injury Risk Increased Goal: Skin Health and Integrity Outcome: Ongoing, progressing Pt disoriented to time several times throughout shift, re-oriented easily. Pt expresses sabiha sj to go home. Pt ambulated with 2-wheel walker to bathroom this AM and sitting in chair. R bryn off phenylephrine gtt. Soo Velasquez RN lan of Care - Herminio Gaston, PT - 09/17/2019 10:12 AM PST Physical Therapy Treatment Note Recommended discharge disposition: usp facility Post discharge physical therapy recommendation: minimum 5 days of therapy/week, ongoing lo w intensity therapy, will benefit from structured setting Equipment Recommendations: (TBD) Barriers to community-based discharge Physical Impairment and Level of assistance for ADLs/mobility Planned Interventions: (per PT POC) (may reflect documentation from different provider) balance training, gait training, bed m obility training, transfer training, stair training, strengthening, patient/family education , ROM (Range of Motion) Recommended Frequency: 5 times/wk for 7 days PT reassessment due 09/19/19 Next visit information: 09/17, Vascular Surgery, Progress Gait, Monitor HR/BP Summary: Patient in the chair upon PT arrival, agreeable to participation. Remains with mi ld disorientation and forgetfulness. He is cooperative throughout. LEs noted to be quite rikki matous, as well as his genital region which causes noted discomfort with any mobility. Knee pain remains present as well. Needs mod A x1 for transfers and more min A once up and standi ng with the walker. Discussed DC planning, he is in agreement for SNF prior to returning blanca e. Vitals in supine: HR 93, BP 88/63, SpO2 96% RA. VSS post activity. Precautions Precaution Comment: Hypotension Precautions/Limitations: falls Cognitive Assessment Cognitive Comments: Forgetful, pleasant, follows instructions fairly well Mood/Behavior: cooperative, calm Orientation: disoriented to, time, situation Arousal Level: opens eyes spontaneously Speech: spontaneous, clear Bed Mobility Additional Documentation: rolling, supine to/from sit Assistive Device: bed rails Roll Left, Level of [place]: stand by assist Supine to Sit, Level of [place]: minimal assist (75% patient effort) Sit to Supine, Level of [place]: moderate assist (50% patient effort) Transfers Additional Documentation: bed to/from chair, sit to/from stand Bed-Chair, Level of [place]: moderate assist (50% patient effort) Sit-Stand, Level of [place]: moderate assist (50% patient effort) Stand-Sit, Level of [place]: minimal assist (75% patient effort) Int-Ejmjb-[id number], Assistive Device: 2 wheeled walker (FWW) Gait Gait Comments: Antalgic Level of [place]: minimal assist (75% patient effort) Assistive Device: 2 wheeled walker (FWW) Distance (feet): 20 Balance Sitting Balance: Static: good balance Sitting Balance: Dynamic: good balance Standing Balance: Static: fair balance Standing Balance: Dynamic: poor balance Goals Reflects last filed data and may be from multiple contributors. All Transfers Goal Most Recent Value LTG [place] Level stand by assist at 09/12/2019 0845 Gait Goal Most Recent Value LTG [place] Level stand by assist at 09/12/2019 0845 LTG Assistive Device 2 wheeled walker (FWW) at 09/12/2019 0845 LTG Distance (feet) 100 at 09/12/2019 0845 Stair Goal Most Recent Value LTG [place] Level stand by assist at 09/12/2019 0845 LTG Assistive Device 2 rails at 09/12/2019 0845 LTG Number of Stairs 7 at 09/12/2019 0845 lan of Care - Gucci Mars RN - 09/17/2019 3:11 AM PST Problem: Adult Inpatient Plan of Care Goal: Plan of Care Review Outcome: Ongoing, progressing Goal: Patient-Specific Goal Outcome: Ongoing, progressing Goal: Absence of Hospital-Acquired Illness or Injury Outcome: Ongoing, progressing Goal: Optimal Comfort and Wellbeing Outcome: Ongoing, not progressing Note: Pt has exceptionally thin skin prone to damage. Found two areas of skin issues, one to eac h buttock, that have developed despite Q2H turns. C/O mild discomfort to Rt buttock where it appears there has been sheering of the skin. Applied zinc cream and pup to area, as well a s same interventions to small blister on Lt buttock. Pt with decreased C/O discomfort with application of pups for protection to these areas. Goal: Readiness for Transition of Care Outcome: Ongoing, not progressing Note: Continues with intermittent labile Bp's. Has required need of Kailee pressor for several hour s this shift, though is once again off at this time. Has had same reciprocal needs noted on last several shifts. Goal: Rounds/Family Conference Outcome: Ongoing, progressing Problem: Fall Injury Risk Goal: Absence of Fall and Fall-Related Injury Outcome: Ongoing, progressing Problem: Skin Injury Risk Increased Goal: Skin Health and Integrity Outcome: Ongoing, not progressing Note: See notation under Hospital acquired injury, above. lan of Care - Herminio Granda, PT - 09/16/2019 1:02 PM PSTFormatting of this note might be different fro m the original. Physical Therapy Treatment Note Recommended discharge disposition: usp facility Post discharge physical therapy recommendation: minimum 5 days of therapy/week, pt is kay vated participant Equipment Recommendations: (TBD) Barriers to community-based discharge Physical Impairment and Level of assistance for ADLs/mobility Planned Interventions: (per PT POC) (may reflect documentation from different provider) balance training, gait training, bed m obility training, transfer training, stair training, strengthening, patient/family education , ROM (Range of Motion) Recommended Frequency: 5 times/wk for 7 days PT reassessment due 09/19/19 Next visit information: 09/16, Vascular Surgery, Progress Gait, Monitor HR Summary: Patient resting in bed upon PT arrival, eager to participate. Vitals at rest in s upine: HR 90, BP 101/54, SpO2 95% RA. He reports no pain at rest, but patient does cite VALENCIA knee pain (L worse than R) from immobility and resting in bed. Pt only need 1 person assista nce for all mobility today. Does need mod A for transfers/bed mobility. Once in standing, pa tient is fairly stable but gait is antalgic. Pt is noted to be tachycardic with activity up to 150 bpm, rate/rhythm back to resting values once in bed. Vitals after activity in sitting : HR 95, BP 123/53, SpO2 98% RA. Discssed DC planning, pt appears agreeable to SNF. Pt up i n the chair after activity, all needs met. Precautions Precaution Comment: Monitor BP Precautions/Limitations: falls Cognitive Assessment Cognitive Comments: Forgetful, pleasant, follows instructions fairly well Mood/Behavior: calm, cooperative Orientation: disoriented to, time Bed Mobility Additional Documentation: rolling, supine to/from sit Assistive Device: bed rails Roll Left, Level of [place]: stand by assist Supine to Sit, Level of [place]: minimal assist (75% patient effort) Transfers Additional Documentation: bed to/from chair, sit to/from stand Bed-Chair, Level of [place]: moderate assist (50% patient effort) Sit-Stand, Level of [place]: moderate assist (50% patient effort) Stand-Sit, Level of [place]: minimal assist (75% patient effort) Rdv-[id number]-Boo, Assistive Device: 2 wheeled walker (FWW) Gait Gait Comments: Antalgic, Leads with LLE Level of [place]: minimal assist (75% patient effort) Assistive Device: 2 wheeled walker (FWW) Distance (feet): 20 Balance Sitting Balance: Static: good balance Sitting Balance: Dynamic: good balance Standing Balance: Static: fair balance Standing Balance: Dynamic: poor balance Goals Reflects last filed data and may be from multiple contributors. All Transfers Goal Most Recent Value LTG [place] Level stand by assist at 09/12/2019 0845 Gait Goal Most Recent Value LTG [place] Level stand by assist at 09/12/2019 0845 LTG Assistive Device 2 wheeled walker (FWW) at 09/12/2019 0845 LTG Distance (feet) 100 at 09/12/2019 0845 Stair Goal Most Recent Value LTG [place] Level stand by assist at 09/12/2019 0845 LTG Assistive Device 2 rails at 09/12/2019 0845 LTG Number of Stairs 7 at 09/12/2019 0845 oals of Care - Susanna Francis MD - 09/16/2019 8:21 AM PSTGOALS OF CARE NOTE Participants: Who was present? Patient and Primary Attending Physician Does patient have capacity?: Yes Updated Mr. Thomason with his condition. Remains in the ICU for episodes of hypotension requir ing pressors for hypotension. Still on midodrine. Once able to come off pressors, can transf er out of ICU. Susanna Simon MD Report Manager 09/16/2019 lan of Care - Gucci Romeo RN - 09/16/2019 2:20 AM PST Problem: Adult Inpatient Plan of Care Goal: Plan of Care Review Outcome: Ongoing, progressing Note: Titration of pressors (Kailee) PRN; currently off at of 0050 hrs; evaluating for continued nee d. Goal: Patient-Specific Goal Outcome: Ongoing, progressing Goal: Absence of Hospital-Acquired Illness or Injury Outcome: Ongoing, progressing Note: Promotion of clenliness, with particular emphasis to Lt thigh incisional site. Goal: Optimal Comfort and Wellbeing Outcome: Ongoing, progressing Goal: Readiness for Transition of Care Outcome: Ongoing, progressing Note: Currently off of Kailee pressor as of 0050; may possibly be appropriate to transition to lower level of care later in the day if able to sustain BP off of this. Goal: Rounds/Family Conference Outcome: Ongoing, progressing Problem: Fall Injury Risk Goal: Absence of Fall and Fall-Related Injury Outcome: Ongoing, progressing Note: Pt calling appropriately for assistance. Reinforced continue need to call prn for assist a nd not to attempt to get OOB on his own. Pt compliant thus far and expresses understanding. Problem: Skin Injury Risk Increased Goal: Skin Health and Integrity Outcome: Ongoing, progressing lan of Care - Cheyanne Weber RN - 09/15/2019 4:53 PM PST Problem: Restraint, Nonbehavioral (Nonviolent) Goal: Personal Dignity and Safety Maintained Outcome: Met Patient oriented, cooperative, no longer needed restraints. lan of Elysia - Ruma Murrieta MSW - 09/15/2019 11:22 AM PSTAttended daily rounding. PT has recommended SNF - referrals sent to [facility]. CM to follow up with family and pt when an accepting facility is found. ADELITA GUALLPA lan of Elysia - Moose Jimenez RN - 09/15/2019 5:37 AM PSTAlert. Oriented 2-4 with redirection. Pain in left groin treated with 5mg oxycodone one time. Afebrile. Aflutter 80-90s. SBP>90 with kailee gtt up to 100 and now down to 30. Pulses unchang ed. Responded to 500cc albumin. Room air. Tolerating diet. No BM. Adequate urine via velarde. No calls no visitors. Mag replaced. lan of Elysia Rodrigo Paige, PT, DPT - 09/14/2019 11:04 AM PSTFormatting of this note migh t be different from the original. Physical Therapy Re-Assessment Note Recommended discharge disposition: usp facility Post discharge physical therapy recommendation: will benefit from structured setting, mini mum 5 days of therapy/week, pt is motivated participant Equipment Recommendations: 2 wheeled walker (FWW) Barriers to community-based discharge Physical Impairment, Level of assistance for ADLs/mobility, Pain, and Fall risk Planned Interventions: (may reflect documentation from different provider) balance training, gait training, bed m obility training, transfer training, stair training, strengthening, patient/family education , ROM (Range of Motion) Recommended Frequency: 5 times/wk for 7 days PT reassessment due 09/19/19 Next visit information: 09/14, Vascular surgery, 1+1, progress gait Summary: Pt. transferred to ICU due to hypotension. He remains on KAILEE with BPs in the 80s /50s at rest. With activity BP increased to 120s/60s. Pt. has poor tolerance to WBing isela weathers was able to perform pre-gait stepping advancing to short bout of gait training with FWW. He reports hx. of chronic bilat. knee pain which limits his mobility further. He denied d izziness throughout. Precautions Precaution Comment: monitor BP Precautions/Limitations: falls Cognitive Assessment Orientation: oriented x 4 Bed Mobility Supine to Sit, Level of [place]: minimal assist (75% patient effort) Transfers Sit-Stand, Level of [place]: moderate assist (50% patient effort) Gait Gait Comments: Antalgic, shuffled Level of [place]: minimal assist (75% patient effort), moderate assist (50% patient ef fort), 1 person + 1 person to manage equipment Assistive Device: 2 wheeled walker (FWW) Distance (feet): 12 Balance Sitting Balance: Static: good balance Sitting Balance: Dynamic: good balance Standing Balance: Static: fair balance Standing Balance: Dynamic: poor balance Goals Reflects last filed data and may be from multiple contributors. All Transfers Goal Most Recent Value LTG [place] Level stand by assist at 09/12/2019 0845 Gait Goal Most Recent Value LTG [place] Level stand by assist at 09/12/2019 0845 LTG Assistive Device 2 wheeled walker (FWW) at 09/12/2019 0845 LTG Distance (feet) 100 at 09/12/2019 0845 Stair Goal Most Recent Value LTG [place] Level stand by assist at 09/12/2019 0845 LTG Assistive Device 2 rails at 09/12/2019 0845 LTG Number of Stairs 7 at 09/12/2019 0845 lan of Pa re - Ruma Isabel MSW - 09/14/2019 9:57 AM PSTAttended daily rounding. CM will follow PT recommendations and follow up with family. Plan is to attempt to work wit h PT today . Pt is residing in [place] with spouse. ADELITA GUALLPA lan of Care - Paige Montgomery RN - 09/13/2019 6:45 PM PST Problem: Adult Inpatient Plan of Care Goal: Rounds/Family Conference Outcome: Ongoing, progressing Flowsheets (Taken 09/13/2019 1842) Participants: patient; provider Note: Intensive care team working with hospitalist team and consulting physicians to coordinate a nd transfer care. Problem: Fall Injury Risk Goal: Absence of Fall and Fall-Related Injury Outcome: Ongoing, progressing Note: No falls during this admission. Patient does not attempt to get out of bed or mobilize with out assistance. Problem: Fall Injury Risk Goal: Absence of Fall and Fall-Related Injury Outcome: Ongoing, progressing Note: No falls during this admission. Patient does not attempt to get out of bed or mobilize with out assistance. Problem: Skin Injury Risk Increased Goal: Skin Health and Integrity Outcome: Ongoing, not progressing Note: Left groin and left knee have developed redness, pain, and swelling during this hospital st ay. lan of Care - Oma Welch RN - 09/13/2019 12:43 PM PST Problem: Fall Injury Risk Goal: Absence of Fall and Fall-Related Injury Outcome: Ongoing, progressing Call light within reach, bed locked and in lowest position, table within reach, nonskid fo otwear on, and safety precautions continued per hospital policy. Problem: Skin Injury Risk Increased Goal: Skin Health and Integrity Outcome: Ongoing, progressing Skin intact, continuing to monitor L groin incision and L foot ulcer. Problem: Adult Inpatient Plan of Care Goal: Plan of Care Review Outcome: Ongoing, progressing Flowsheets (Taken 09/13/2019 1242) Plan of Care Reviewed With: patient Collaborated with interdisciplinary team for plan of care, all patient questions addressed . lan of Care - Nika Corea MD - 09/13/2019 11:12 AM PSTD/w he asked for patient to be moved to ICU I have consulted with ICU he is agreeable ,left a VM for with updates lan of Care - Edwardo Clayton RN - 09/12/2019 9:10 PM PST Problem: Adult Inpatient Plan of Care Goal: Plan of Care Review Outcome: Ongoing, progressing Problem: Fall Injury Risk Goal: Absence of Fall and Fall-Related Injury Outcome: Ongoing, progressing Problem: Skin Injury Risk Increased Goal: Skin Health and Integrity Outcome: Ongoing, progressing lan of Care - Oma Fernando RN - 09/12/2019 5:56 PM PST Problem: Adult Inpatient Plan of Care Goal: Plan of Care Review Outcome: Ongoing, progressing Flowsheets (Taken 09/12/2019 1756) Plan of Care Reviewed With: patient Collaborated with interdisciplinary team for plan of care, all patient questions addressed . Problem: Fall Injury Risk Goal: Absence of Fall and Fall-Related Injury Outcome: Ongoing, progressing Call light within reach, bed locked and in lowest position, table within reach, nonskid fo otwear on, and safety precautions continued per hospital policy. Problem: Skin Injury Risk Increased Goal: Skin Health and Integrity Outcome: Ongoing, progressing Skin intact, L groin site soft with no hematoma, continuing to monitor dressing. Melly estevez signed by Oma Kumar RN at 09/12/2019 5:57 PM PSTPlan of Care - Miguel Dangelo MSW - 09/12/2019 10:24 AM PSTCare Management Initial Assessment Readmission Risk: Medium Status Prior to Admission or Illness Arrival From: home or self-care Lives With: spouse Living Arrangements: house Caregiver For: no one Patient s Caregiver: spouse/significant other Functional Status: Indep at baseline per pt report, does have a history of falls. Worsenin g L foot pain is reported prior to procedure Caregiving Concerns: Home Accessibility: stairs to enter home Transportation Available: family or friend will provide Able to return to prior living: Care Management Concerns Last discharge date: Readmission Within Last 30 Days: no previous admission in last 30 days Is Readmission Diagnosis Related to or Same As: Previous Discharging Facility: Previous Discharge Destination From: PCP: Carlos Alberto Galeas MD Contact Information Family Contact Information: Name: Rivka Thomason (spouse) Pager: none Fax: none DC Needs Assessment Current Outpt/Agency/Support Groups: none Community Agency Name: none Anticipated Changes Related to Illness: none Concerns to be Addressed: no discharge needs identified Services Anticipated at Discharge: home health care Equipment Used at Home: 2 wheeled walker (FWW) Equipment Needed after Discharge: none Durable Medical Equipment Provider: none Pharmacy/Medication Needs: no authorization required Transportation Needs: family or friend will provide Initial Plan Anticipated Discharge Disposition: home with home health Expected DC Date: Steps Taken Toward Discharge: Initial assessment. Next Steps: Possible Home Health referral. Notes: CM met with pt for discharge planning. Pt is 88 years old and lives with his . P t has 7 stairs at the main entrance. Pt uses a front wheel walker to assist with ambulation. Pt has no difficulty obtaining his medications and had no resource concerns at this time. C M will continue to monitor physical therapy's recommendations for discharge planning. Electronically signed: ADELITA ZELAYA 09/12/2019 10:24 AM lan of Care - Herminio Jensen, PT - 09/12/2019 9:32 AM PST Physical Therapy Initial Evaluation Note Recommended discharge disposition: home with assist Post discharge physical therapy recommendation: home health Equipment Recommendations: (TBD) Barriers to community-based discharge Physical Impairment Planned Interventions: balance training, gait training, bed mobility training, transfer tra ining, stair training, strengthening, patient/family education, ROM (Range of Motion) Recommended Frequency: 5 times/wk for 7 days PT reassessment due 09/19/19 Next visit information: 09/12, Vascular Surgery, Progress Gait Summary: Chart reviewed, evaluation completed. Pt is s/p L Femoral Endarterectomy/stenting . Hx of vascular claudication. Lives with his spouse with adult children that live locally a nd assist as needed. Reports he has a walker he uses at times at baseline. Reports pain is f airly well controlled, pt noted to have some hypotensive issues yesterday and overnight requ iring Kailee. Pt demonstrates fair functional strength for mobility. Mild unsteadiness in stand ing and with gait with gait. Pressures slightly softer in upright positioning. Plan to keep exertion limited until this is improve for safety. Pt up in the chair after activity. He deneen l need to make further progress acutely for home DC, anticipate HH therapy services will be beneficial pending progress. All needs met post activity. Vitals in sitting: HR 91, BP 111/6 7, SpO2 94% w/ 3L. Vitals in sitting: HR 97, BP 97/55, SpO2 99% w/ 3L. BP once reclined: 103 /59. Living Environment Lives With: spouse Living Arrangements: house Home Accessibility: stairs to enter home Number of Stairs to Enter Home: 7 Stair Railings at Home: outside, present at both sides Financial Concerns: none Transportation Available: family or friend will provide Functional Level Prior Transferring: independent Ambulation: independent Toileting: independent Bathing: independent Dressing: independent Eating: independent Equipment Currently Used at Home: 2 wheeled walker (FWW) Prior Functional Level Comment: Indep at baseline per pt report, does have a history of fal ls. Worsening L foot pain is reported prior to procedure Precautions Precaution Comment: Monitor BP (Hypotension) Precautions/Limitations: falls Cognitive Assessment Mood/Behavior: calm, cooperative Impairments Found (describe specific impairments): gait, locomotion, and balance, functiona l endurance/activity tolerance, circulation Bed Mobility Additional Documentation: rolling, supine to/from sit Assistive Device: bed rails Roll Left, Level of [place]: stand by assist Supine to Sit, Level of [place]: minimal assist (75% patient effort) Transfers Additional Documentation: bed to/from chair, sit to/from stand Bed-Chair, Level of [place]: minimal assist (75% patient effort) Sit-Stand, Level of [place]: minimal assist (75% patient effort) Stand-Sit, Level of [place]: minimal assist (75% patient effort) [id number], Assistive Device: 2 wheeled walker (FWW) Gait Gait Comments: Antalgic, shuffled Level of [place]: minimal assist (75% patient effort) Assistive Device: 2 wheeled walker (FWW) Distance (feet): 5 Sensory Assessment Sensation Comments: Decreased sensation LEs Range of Motion ROM Comments: Mild guarding LLE Strength Strength Comments: Mild guarding LLE, fairly good functional strength all other extremities Balance Sitting Balance: Static: good balance Sitting Balance: Dynamic: good balance Standing Balance: Static: fair balance Standing Balance: Dynamic: poor balance Goals Reflects last filed data and may be from multiple contributors. All Transfers Goal Most Recent Value LTG [place] Level stand by assist at 09/12/2019 0845 Gait Goal Most Recent Value LTG [place] Level stand by assist at 09/12/2019 0845 LTG Assistive Device 2 wheeled walker (FWW) at 09/12/2019 0845 LTG Distance (feet) 100 at 09/12/2019 0845 Stair Goal Most Recent Value LTG [place] Level stand by assist at 09/12/2019 0845 LTG Assistive Device 2 rails at 09/12/2019 0845 LTG Number of Stairs 7 at 09/12/2019 0845 lan of Care - Med Fadia thurston RN - 09/11/2019 11:34 PM PST Problem: Adult Inpatient Plan of Care Goal: Plan of Care Review Outcome: Ongoing, progressing Problem: Fall Injury Risk Goal: Absence of Fall and Fall-Related Injury Outcome: Ongoing, progressing Problem: Skin Injury Risk Increased Goal: Skin Health and Integrity Outcome: Ongoing, progressing rief Op Note - Osmin Brady MD - 09/11/2019 12:06 PM PSTFormatting of this note might be different from the or iginal. BRIEF OPERATIVE NOTE [facility] Pt. Name/Age/: Deborah Thomason 88 y.o. 1930 Med. Record Number: [id number] Date of admission: 09/11/2019 Date of Operation/Procedure: 09/11/2019 Preoperative Diagnosis: Critical limb ischemia LLE Postoperative Diagnosis: * PAD (peripheral artery disease) (HCC) [I73.9] Surgeon: Osmin Garber MD Thickener Operator: Kendell Robertson PA-C Anesthesia Provider(s): WOOL SORTER: Justin Bauman CRNA; Stephen Silva CRNA Anesthesia Type: Monitored Anesthesia Care Procedure(s): ENDARTERECTOMY FEMORAL, LIA, EIA angioplasty/stent Operative Findings: Heavily calcified SYRUP SHED SUPERVISOR, PFA. External and LIA with severe stenosis. St wilian pulse in SYRUP SHED SUPERVISOR, PFA, and SFA at conclusion. Strong DP signal. Has pop, TPT occlusion wh ich may need intervention. Wound Closure: Primary closure Evidence of infection: No infection noted. Estimated Blood Loss: 200-400mL IV Fluids: refer to anesthesia record Blood Transfusion: None Drains: none Specimen (s): ID Type Source Tests Collected by Time Destination A : Tissue Lymph Node(s), Femoral/Groin, Left SURGICAL PATHOLOGY EXAM Osmin Garber MD 09/11 0817 B : Left femoral artery plaque Tissue Arterial plaque SURGICAL PATHOLOGY EXAM Osmin Garber MD 09/11/201957 Implants: Implant Name Type Inv. Item Serial No. Home Health Cna Lot No. LRB No. Used XGRFT VASCU-GUARD PTCH 0.8X8 - SN/A Graft XGRFT VASCU-GUARD PTCH 0.8X8 N/A [place] E - BAXB [id number] Left 1 Counts: Instrument, sponge, and needle counts were correct prior to closure and at the con clusion of the case. Complications: None Disposition: The patient was taken to PACU Immediate Post-Operative Condition: Stable Electronically signed by: Osmin Garber MD, 09/11/2019, 12:06 PM edation Documentation - Wanda Gann Tech nologist - 09/11/2019 11:35 AM PSTOR to close the site edation Documentation - Wanda Gann Tech nologist - 09/11/2019 10:52 AM [id number] mustang inserted OTW, edation Documentation - Wanda Gann Technologist - 09/11/2019 10:48 AM PSTWire inserted, edation Documentation - Wanda Gann Te chnologist - 09/11/2019 10:39 AM PSTkumpe replaces catheter inserted OTWElectronically alban d by Wanda Gann Technologist at 09/11/2019 10:40 AM PSTSedation Documentation - Wanda Shelby Technologist - 09/11/2019 10:31 AM PSTWire inserted, rubicon inserted OTW, Izabella ctronically signed by Wanda Gann Technologist at 09/11/2019 10:31 AM PSTSedation Docu mentation - Wanda Gann Technologist - 09/11/2019 10:02 AM PSTSheath exchange to a 8x 23, NTA inserted OTW, removed, Electronically signed by Jaclyn Northologist at 0 09/11/2019 10:31 AM PSTSedation Documentation - Wanda Gann Technologist - 09/11/2019 9:54 AM [id number] [place] inserted OTW, inflations made, removed, edation Documentation - Tom Gann Technologist - 09/11/2019 9:50 AM PSTImages obtained, wire inserted, Electronically s igned by Wanda Gann Technologist at 09/11/2019 9:50 AM PSTSedation Documentation - D Wanda prescott Technologist - 09/11/2019 9:49 AM PSTNTA inserted OTW, wire removed, Elec tronically signed by Wanda Gann Technologist at 09/11/2019 9:49 AM PSTSedation Docum entation - Wanda Gann Technologist - 09/11/2019 9:46 AM PSTOmni replaces NTA, remov ed, images made A M PSTSedation Documentation - Wanda Gann Technologist - 09/11/2019 9:34 AM PSTAcces s obtained via micro puncture, wire inserted, sheath inserted OTW, glide inserted, NTA inser darek OTW ed ation Documentation - Wanda Gann Technologist - 09/11/2019 9:08 AM PSTPatch edation Documentation - Wanda Gann Technologist - 09/11/2019 8:33 AM PSTElectronically sign ed by Technologist Can at 09/11/2019 8:42 AM PSTSedation Documentation - Wanda Corrlaes Technologist - 09/11/2019 7:55 AM PSTOR to perform cut downElectronically si gned by Jaclyn Northologist at 09/11/2019 7:55 AM PSTdocumented in this encounte r Plan of Treatment +--------+---------+ + + + | Date | Type | Specialty | Care Team | Description | +--------+---------+ + + + | 08/04/ | Office | Cardiology | Anusha Lomax | | | 2020 | Visit | | [address] | | | | | | [address] | | | | | | [place] [address] | | | | | | [phone] | | | | | | | | +--------+---------+ + + + + + +--------+ + + | Name | Type | Priori | Associated Diagnoses | Order Schedule | | | | ty | | | + + +--------+ + + | Referral to Home | Outpatient | Routin | PVD (peripheral | Ordered: 2019 | | Health - OUTPATIENT | Referral | e | vascular disease) | | | | | | ([facility]) Atrial | | | | | | fibrillation with | | | | | | RVR ([facility]) | | + + +--------+ + + | Referral to Home | Outpatient | Routin | PAD (peripheral | Ordered: 2019 | | Health | Referral | e | artery disease) | | | | | | ([facility]) Chronic | | | | | | atrial fibrillation | | | | | | (HCC) Chronic | | | | | | diastolic heart | | | | | | failure ([facility]) PVD | | | | | | (peripheral vascular | | | | | | disease) (HCC) | | + + +--------+ + + documented as of this encounter Procedures + +--------+ + + + | Procedure Name | Priori | Date/Time | Associated Diagnosis | Comments | | | ty | | | | + +--------+ + + + | PROTIME INR | Routin | 2019 | | Results for this | | | e | 4:31 AM | | procedure are in the | | | | PST | | results section. | + +--------+ + + + | CBC WITH | STAT | 2019 | | Results for this | | DIFFERENTIAL | | 4:31 AM | | procedure are in the | | | | PST | | results section. | + +--------+ + + + | MAGNESIUM | Routin | 2019 | | Results for this | | | e | 4:31 AM | | procedure are in the | | | | PST | | results section. | + +--------+ + + + | COMPREHENSIVE | STAT | 2019 | | Results for this | | METABOLIC PANEL | | 4:31 AM | | procedure are in the | | | | PST | | results section. | + +--------+ + + + | POTASSIUM | Routin | 09/19/2019 | | Results for this | | | e | 8:20 PM | | procedure are in the | | | | PST | | results section. | + +--------+ + + + | POTASSIUM | Routin | 09/19/2019 | | Results for this | | | e | 11:06 AM | | procedure are in the | | | | PST | | results section. | + +--------+ + + + | PROTIME INR | Routin | 09/19/2019 | | Results for this | | | e | 4:20 AM | | procedure are in the | | | | PST | | results section. | + +--------+ + + + | CBC WITH | STAT | 09/19/2019 | | Results for this | | DIFFERENTIAL | | 4:20 AM | | procedure are in the | | | | PST | | results section. | + +--------+ + + + | MAGNESIUM | Routin | 09/19/2019 | | Results for this | | | e | 4:20 AM | | procedure are in the | | | | PST | | results section. | + +--------+ + + + | COMPREHENSIVE | STAT | 09/19/2019 | | Results for this | | METABOLIC PANEL | | 4:20 AM | | procedure are in the | | | | PST | | results section. | + +--------+ + + + | PROTIME INR | Routin | 09/18/2019 | | Results for this | | | e | 4:06 AM | | procedure are in the | | | | PST | | results section. | + +--------+ + + + | CBC WITH | STAT | 09/18/2019 | | Results for this | | DIFFERENTIAL | | 4:06 AM | | procedure are in the | | | | PST | | results section. | + +--------+ + + + | MAGNESIUM | Routin | 09/18/2019 | | Results for this | | | e | 4:06 AM | | procedure are in the | | | | PST | | results section. | + +--------+ + + + | COMPREHENSIVE | STAT | 09/18/2019 | | Results for this | | METABOLIC PANEL | | 4:06 AM | | procedure are in the | | | | PST | | results section. | + +--------+ + + + | POTASSIUM | Routin | 09/18/2019 | | Results for this | | | e | 12:02 AM | | procedure are in the | | | | PST | | results section. | + +--------+ + + + | PHOSPHORUS | Routin | 09/18/2019 | | Results for this | | | e | 12:02 AM | | procedure are in the | | | | PST | | results section. | + +--------+ + + + | MAGNESIUM | Routin | 09/18/2019 | | Results for this | | | e | 12:02 AM | | procedure are in the | | | | PST | | results section. | + +--------+ + + + | PROTIME INR | Routin | 09/17/2019 | | Results for this | | | e | 4:38 AM | | procedure are in the | | | | PST | | results section. | + +--------+ + + + | CBC WITH | STAT | 09/17/2019 | | Results for this | | DIFFERENTIAL | | 4:38 AM | | procedure are in the | | | | PST | | results section. | + +--------+ + + + | PHOSPHORUS | Routin | 09/17/2019 | | Results for this | | | e | 4:38 AM | | procedure are in the | | | | PST | | results section. | + +--------+ + + + | MAGNESIUM | Routin | 09/17/2019 | | Results for this | | | e | 4:38 AM | | procedure are in the | | | | PST | | results section. | + +--------+ + + + | COMPREHENSIVE | STAT | 09/17/2019 | | Results for this | | METABOLIC PANEL | | 4:38 AM | | procedure are in the | | | | PST | | results section. | + +--------+ + + + | PROTIME INR | Routin | 09/16/2019 | | Results for this | | | e | 4:11 AM | | procedure are in the | | | | PST | | results section. | + +--------+ + + + | CBC WITH | STAT | 09/16/2019 | | Results for this | | DIFFERENTIAL | | 4:11 AM | | procedure are in the | | | | PST | | results section. | + +--------+ + + + | PHOSPHORUS | Routin | 09/16/2019 | | Results for this | | | e | 4:11 AM | | procedure are in the | | | | PST | | results section. | + +--------+ + + + | MAGNESIUM | Routin | 09/16/2019 | | Results for this | | | e | 4:11 AM | | procedure are in the | | | | PST | | results section. | + +--------+ + + + | COMPREHENSIVE | STAT | 09/16/2019 | | Results for this | | METABOLIC PANEL | | 4:11 AM | | procedure are in the | | | | PST | | results section. | + +--------+ + + + | XR CHEST AP PORTABLE | Routin | 09/15/2019 | | Results for this | | | e | 8:13 AM | | procedure are in the | | | | PST | | results section. | + +--------+ + + + | PROTIME INR | Routin | 09/15/2019 | | Results for this | | | e | 4:03 AM | | procedure are in the | | | | PST | | results section. | + +--------+ + + + | CBC WITH | STAT | 09/15/2019 | | Results for this | | DIFFERENTIAL | | 4:03 AM | | procedure are in the | | | | PST | | results section. | + +--------+ + + + | MAGNESIUM | Routin | 09/15/2019 | | Results for this | | | e | 4:03 AM | | procedure are in the | | | | PST | | results section. | + +--------+ + + + | DIGOXIN LEVEL | Routin | 09/15/2019 | | Results for this | | | e | 4:03 AM | | procedure are in the | | | | PST | | results section. | + +--------+ + + + | COMPREHENSIVE | STAT | 09/15/2019 | | Results for this | | METABOLIC PANEL | | 4:03 AM | | procedure are in the | | | | PST | | results section. | + +--------+ + + + | CBC WITH | STAT | 09/14/2019 | | Results for this | | DIFFERENTIAL | | 9:23 AM | | procedure are in the | | | | PST | | results section. | + +--------+ + + + | MAGNESIUM | STAT | 09/14/2019 | | Results for this | | | | 9:23 AM | | procedure are in the | | | | PST | | results section. | + +--------+ + + + | COMPREHENSIVE | STAT | 09/14/2019 | | Results for this | | METABOLIC PANEL | | 9:23 AM | | procedure are in the | | | | PST | | results section. | + +--------+ + + + | ECHO COMPLETE | Routin | 09/14/2019 | | Results for this | | | e | 9:00 AM | | procedure are in the | | | | PST | | results section. | + +--------+ + + + | PROTIME INR | Routin | 09/14/2019 | | Results for this | | | e | 4:09 AM | | procedure are in the | | | | PST | | results section. | + +--------+ + + + | POC GLUCOSE (NON | Routin | 09/13/2019 | | Results for this | | ORD) | e | 12:29 PM | | procedure are in the | | | | PST | | results section. | + +--------+ + + + | PROTIME INR | Routin | 09/13/2019 | | Results for this | | | e | 4:05 AM | | procedure are in the | | | | PST | | results section. | + +--------+ + + + | CBC WITH | Routin | 09/13/2019 | | Results for this | | DIFFERENTIAL | e | 4:05 AM | | procedure are in the | | | | PST | | results section. | + +--------+ + + + | BASIC METABOLIC | Routin | 09/13/2019 | | Results for this | | PANEL | e | 4:05 AM | | procedure are in the | | | | PST | | results section. | + +--------+ + + + | TROPONIN I | Timed | 09/12/2019 | | Results for this | | | | 5:28 PM | | procedure are in the | | | | PST | | results section. | + +--------+ + + + | PROTIME INR | Add-On | 09/12/2019 | | Results for this | | | | 4:27 PM | | procedure are in the | | | | PST | | results section. | + +--------+ + + + | TROPONIN I | Timed | 09/12/2019 | | Results for this | | | | 11:25 AM | | procedure are in the | | | | PST | | results section. | + +--------+ + + + | ECG 12 LEAD | STAT | 09/12/2019 | | Results for this | | | | 11:17 AM | | procedure are in the | | | | PST | | results section. | + +--------+ + + + | CBC WITH | Routin | 09/12/2019 | | Results for this | | DIFFERENTIAL | e | 4:31 AM | | procedure are in the | | | | PST | | results section. | + +--------+ + + + | BASIC METABOLIC | Routin | 09/12/2019 | | Results for this | | PANEL | e | 4:31 AM | | procedure are in the | | | | PST | | results section. | + +--------+ + + + | PROTIME INR | Routin | 09/11/2019 | | Results for this | | | e | 2:35 PM | | procedure are in the | | | | PST | | results section. 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 | + +--------+ + + + | SURGICAL PATHOLOGY | Routin | 09/11/2019 | PAD (peripheral | Results for this | | EXAM | e | 8:17 AM | artery disease) | procedure are in the | | | | PST | ([facility]) | results section. | + +--------+ + + + | ENDARTERECTOMY | | 09/11/2019 | PAD (peripheral | | | FEMORAL | | 7:08 AM | artery disease) | | | | | PST | ([facility]) | | + +--------+ + + + +---+--------+ | | | | | Specia | | | l | | | Needs | | | Stop | | | Bang | | | score | | | of 5 | | | indica | | | ting | | | high | | | risk | | | for | | | sleep | | | apnea | +---+--------+ + +------+ +---+ + | PROTIME INR | STAT | 09/11/2019 | | Results for this | | | | 6:48 AM | | procedure are in the | | | | PST | | results section. | + +------+ +---+ + documented in this encounter Results Magnesium (2019 4:31 AM PST) + + + + + + | Component | Value | Ref Range | Performed | Pathologist | | | | | At | Signature | + + + + + + | Magnesium | 1.7Comment: Testing | 1.7 - 2.4 mg/dL | [facility] | | | | performed at [facility] | | LABORATORY | | | | [facility];[place], [place] | | | | | | [address] | | | | + + + + + + + + | Specimen | + + | Blood | + + + + + + + | Performing | Address | City/State/Zipcode | Phone Number | | Organization | | | | + + + + + | [facility] | [address] | [place] [address] | [phone] | + + + + + CBC with Differential (2019 4:31 AM PST) + + + + + + | Component | Value | Ref Range | Performed | Pathologist | | | | | At | Signature | + + + + + + | WBC | 7.94 | 3.80 - 11.00 | [facility] | | | | | K/uL | LABORATORY | | + + + + + + | Red Blood | 3.26 (L) | 4.20 - 5.70 | [facility] | | | Cells | | M/uL | LABORATORY | | + + + + + + | Hemoglobin | 9.7 (L) | 13.2 - 17.0 | [facility] | | | | | g/dL | LABORATORY | | + + + + + + | Hematocrit | 29.1 (L) | 39.0 - 50.0 % | [facility] | | | | | | LABORATORY | | + + + + + + | MCV | 89.3 | 80.0 - 100.0 fl | [facility] | | | | | | LABORATORY | | + + + + + + | MCH | 29.8 | 27.0 - 34.0 pg | [facility] | | | | | | LABORATORY | | + + + + + + | MCHC | 33.3 | 32.0 - 35.5 | [facility] | | | | | g/dL | LABORATORY | | + + + + + + | RDW-SD | 50.2 | 37 - 53 fl | [facility] | | | | | | LABORATORY | | + + + + + + | Platelet | 414 (H) | 150 - 400 K/uL | [facility] | | | Count | | | LABORATORY | | + + + + + + | MPV | 9.7Comment: NO NORMAL | fl | [facility] | | | | RANGE ESTABLISHED | | LABORATORY | | + + + + + + | Diff Type | AUTOMATED | | [facility] | | | | | | LABORATORY | | + + + + + + | % nRBC | 0.0 | 0 /100WBC | [facility] | | | | | | LABORATORY | | + + + + + + | % | 71.90 | % | [facility] | | | Neutrophils | | | LABORATORY | | + + + + + + | IMMATURE | 0.60 | % | [facility] | | | GRANULOCYTE | | | LABORATORY | | + + + + + + | % | 7.60 | % | [facility] | | | Lymphocytes | | | LABORATORY | | + + + + + + | Monocyte % | 9.90 | % | [facility] | | | | | | LABORATORY | | + + + + + + | Eosinophils | 9.40 | % | [facility] | | | % | | | LABORATORY | | + + + + + + | Basophils % | 0.60 | % | [facility] | | | | | | LABORATORY | | + + + + + + | Neutrophils | 5.70 | 1.90 - 7.40 | [facility] | | | , Absolute | | K/uL | LABORATORY | | + + + + + + | IMMATURE | 0.05Comment: NOTE NEW | 0.00 - 0.07 | [facility] | | | GRANS AB | REFERENCE RANGE | K/uL | LABORATORY | | + + + + + + | Absolute | 0.60 (L) | 1.00 - 3.90 | [facility] | | | Lymphocytes | | K/uL | LABORATORY | | + + + + + + | Absolute | 0.79 | 0.00 - 0.80 | [facility] | | | Monocytes | | K/uL | LABORATORY | | + + + + + + | Eosinophils | 0.75 (H) | 0.00 - 0.50 | [facility] | | | , Absolute | | K/uL | LABORATORY | | + + + + + + | Basophils, | 0.05Comment: Testing | 0.00 - 0.10 | [facility] | | | Absolute | performed at [facility] | K/uL | LABORATORY | | | | [address];[place], [place] | | | | | | [address] | | | | + + + + + + + + | Specimen | + + | Blood | + + + + + + + | Performing | Address | City/State/Zipcode | Phone Number | | Organization | | | | + + + + + | [facility] | [address] | [place] [address] | [phone] | + + + + + Comprehensive Metabolic Panel (2019 4:31 AM PST) + + + + + + | Component | Value | Ref Range | Performed | Pathologist | | | | | At | Signature | + + + + + + | Na | 134 (L) | 135 - 145 | [facility] | | | | | mmol/L | LABORATORY | | + + + + + + | K | 4.3 | 3.5 - 4.9 | [facility] | | | | | mmol/L | LABORATORY | | + + + + + + | Cl | 103 | 99 - 109 mmol/L | [facility] | | | | | | LABORATORY | | + + + + + + | CO2 | 25 | 23 - 32 mmol/L | [facility] | | | | | | LABORATORY | | + + + + + + | Anion Gap | 10 | 5 - 20 mmol/L | [facility] | | | | | | LABORATORY | | + + + + + + | Glucose | 90 | 65 - 99 mg/dL | [facility] | | | | | | LABORATORY | | + + + + + + | BUN | 18 | 8 - 25 mg/dL | [facility] | | | | | | LABORATORY | | + + + + + + | Creatinine | 0.91 | 0.70 - 1.30 | [facility] | | | | | mg/dL | LABORATORY | | + + + + + + | BUN/Creatin | 20 | | [facility] | | | ine Ratio | | | LABORATORY | | + + + + + + | Calcium | 9.1 | 8.5 - 10.5 | [facility] | | | | | mg/dL | LABORATORY | | + + + + + + | Protein, | 5.5 (L) | 6.3 - 8.2 g/dL | [facility] | | | Total | | | LABORATORY | | + + + + + + | Albumin | 3.2 (L) | 3.3 - 4.8 g/dL | [facility] | | | | | | LABORATORY | | + + + + + + | Globulin | 2.3 | 1.3 - 4.9 g/dL | [facility] | | | | | | LABORATORY | | + + + + + + | A/G Ratio | 1.4 | 1.0 - 2.4 | [facility] | | | | | | LABORATORY | | + + + + + + | BILIRUBIN, | 0.4 | 0.1 - 1.5 mg/dL | [facility] | | | TOTAL | | | LABORATORY | | + + + + + + | ALK PHOS | 189 (H) | 35 - 115 U/L | [facility] | | | | | | LABORATORY | | + + + + + + | AST | 44 | 10 - 45 U/L | [facility] | | | | | | LABORATORY | | + + + + + + | ALT | 35 | 10 - 65 U/L | [facility] | | | | | | LABORATORY | | + + + + + + | Estimated | >60Comment: GFR <60: | >60 | [facility] | | | GFR | CHRONIC KIDNEY DISEASE, | mL/min/1.73m2 | LABORATORY | | | | IF FOUND OVER A 3 MONTH | | | | | | PERIOD.GFR <15: KIDNEY | | | | | | FAILURE.FOR | | | | | | AMERICANS, MULTIPLY THE | | | | | | CALCULATED GFR BY | | | | | | 1.210.This eGFR is | | | | | | calculated using the | | | | | | MDRD IDMS traceable | | | | | | equation.Testing | | | | | | performed at [facility] | | | | | | [address];[place], [place] | | | | | | [address] | | | | + + + + + + + + | Specimen | + + | Blood | + + + + + + + | Performing | Address | City/State/Zipcode | Phone Number | | Organization | | | | + + + + + | [facility] | [address] | [place] [address] | [phone] | + + + + + Protime INR (2019 4:31 AM PST) + + + + + + | Component | Value | Ref Range | Performed | Pathologist | | | | | At | Signature | + + + + + + | INR | 2.7Comment: REFERENCE | | [facility] | | | | RANGE:0.9 - 1.2 | | LABORATORY | | | | NON-ANTICOAGULATED2.0 | | | | | | - 3.0 ALL OTHER | | | | | | THERAPEUTIC | | | | | | INDICATIONS2.5 - 3.5 | | | | | | MECHANICAL HEART VALVES, | | | | | | RECURRENT OR SYSTEMIC | | | | | | EMBOLISMTesting | | | | | | performed at [facility] | | | | | | [address];[place], [place] | | | | | | [address] | | | | + + + + + + + + | Specimen | + + | Blood | + + + + + + + | Performing | Address | City/State/Zipcode | Phone Number | | Organization | | | | + + + + + | [facility] | [address] | [place] [address] | [phone] | + + + + + Potassium (09/19/2019 8:20 PM PST) + + + + + + | Component | Value | Ref Range | Performed | Pathologist | | | | | At | Signature | + + + + + + | K | 4.3Comment: Testing | 3.5 - 4.9 | [facility] | | | | performed at [facility];[address] | mmol/L | LABORATORY | | | | [address];[place] | | | | | | [address] | | | | + + + + + + + + | Specimen | + + | Blood | + + + + + + + | Performing | Address | City/State/Zipcode | Phone Number | | Organization | | | | + + + + + | [facility] | [address] | [place] [address] | [phone] | + + + + + Potassium (09/19/2019 11:06 AM PST) + + + + + + | Component | Value | Ref Range | Performed | Pathologist | | | | | At | Signature | + + + + + + | K | 4.0Comment: Testing | 3.5 - 4.9 | [facility] | | | | performed at [facility];[address] | mmol/L | LABORATORY | | | | [address];[place] | | | | | | [address] | | | | + + + + + + + + | Specimen | + + | Blood | + + + + + + + | Performing | Address | City/State/Zipcode | Phone Number | | Organization | | | | + + + + + | [facility] | [address] | [place] [address] | [phone] | + + + + + Magnesium (09/19/2019 4:20 AM PST) + + + + + + | Component | Value | Ref Range | Performed | Pathologist | | | | | At | Signature | + + + + + + | Magnesium | 1.7Comment: Testing | 1.7 - 2.4 mg/dL | [facility] | | | | performed at [facility];[address] | | LABORATORY | | | | [address];[place] | | | | | | [address] | | | | + + + + + + + + | Specimen | + + | Blood | + + + + + + + | Performing | Address | City/State/Zipcode | Phone Number | | Organization | | | | + + + + + | [facility] | [address] | [place] [address] | [phone] | + + + + + CBC with Differential (09/19/2019 4:20 AM PST) + + + + + + | Component | Value | Ref Range | Performed | Pathologist | | | | | At | Signature | + + + + + + | WBC | 7.34 | 3.80 - 11.00 | [facility] | | | | | K/uL | LABORATORY | | + + + + + + | Red Blood | 3.19 (L) | 4.20 - 5.70 | [facility] | | | Cells | | M/uL | LABORATORY | | + + + + + + | Hemoglobin | 9.7 (L) | 13.2 - 17.0 | [facility] | | | | | g/dL | LABORATORY | | + + + + + + | Hematocrit | 28.4 (L) | 39.0 - 50.0 % | [facility] | | | | | | LABORATORY | | + + + + + + | MCV | 89.0 | 80.0 - 100.0 fl | [facility] | | | | | | LABORATORY | | + + + + + + | MCH | 30.4 | 27.0 - 34.0 pg | [facility] | | | | | | LABORATORY | | + + + + + + | MCHC | 34.2 | 32.0 - 35.5 | [facility] | | | | | g/dL | LABORATORY | | + + + + + + | RDW-SD | 49.5 | 37 - 53 fl | [facility] | | | | | | LABORATORY | | + + + + + + | Platelet | 353 | 150 - 400 K/uL | [facility] | | | Count | | | LABORATORY | | + + + + + + | MPV | 9.8Comment: NO NORMAL | fl | [facility] | | | | RANGE ESTABLISHED | | LABORATORY | | + + + + + + | Diff Type | AUTOMATED | | [facility] | | | | | | LABORATORY | | + + + + + + | % nRBC | 0.0 | 0 /100WBC | [facility] | | | | | | LABORATORY | | + + + + + + | % | 69.70 | % | [facility] | | | Neutrophils | | | LABORATORY | | + + + + + + | IMMATURE | 0.80 | % | [facility] | | | GRANULOCYTE | | | LABORATORY | | + + + + + + | % | 8.30 | % | [facility] | | | Lymphocytes | | | LABORATORY | | + + + + + + | Monocyte % | 10.20 | % | [facility] | | | | | | LABORATORY | | + + + + + + | Eosinophils | 10.20 | % | [facility] | | | % | | | LABORATORY | | + + + + + + | Basophils % | 0.80 | % | [facility] | | | | | | LABORATORY | | + + + + + + | Neutrophils | 5.11 | 1.90 - 7.40 | [facility] | | | , Absolute | | K/uL | LABORATORY | | + + + + + + | IMMATURE | 0.06Comment: NOTE NEW | 0.00 - 0.07 | [facility] | | | GRANS AB | REFERENCE RANGE | K/uL | LABORATORY | | + + + + + + | Absolute | 0.61 (L) | 1.00 - 3.90 | [facility] | | | Lymphocytes | | K/uL | LABORATORY | | + + + + + + | Absolute | 0.75 | 0.00 - 0.80 | [facility] | | | Monocytes | | K/uL | LABORATORY | | + + + + + + | Eosinophils | 0.75 (H) | 0.00 - 0.50 | [facility] | | | , Absolute | | K/uL | LABORATORY | | + + + + + + | Basophils, | 0.06Comment: Testing | 0.00 - 0.10 | [facility] | | | Absolute | performed at [facility] | K/uL | LABORATORY | | | | [address];[place] | | | | | | [address] | | | | + + + + + + + + | Specimen | + + | Blood | + + + + + + + | Performing | Address | City/State/Zipcode | Phone Number | | Organization | | | | + + + + + | [facility] | [address] | [place] [address] | [phone] | + + + + + Comprehensive Metabolic Panel (09/19/2019 4:20 AM PST) + + + + + + | Component | Value | Ref Range | Performed | Pathologist | | | | | At | Signature | + + + + + + | Na | 135 | 135 - 145 | [facility] | | | | | mmol/L | LABORATORY | | + + + + + + | K | 3.8 | 3.5 - 4.9 | [facility] | | | | | mmol/L | LABORATORY | | + + + + + + | Cl | 101 | 99 - 109 mmol/L | [facility] | | | | | | LABORATORY | | + + + + + + | CO2 | 27 | 23 - 32 mmol/L | [facility] | | | | | | LABORATORY | | + + + + + + | Anion Gap | 11 | 5 - 20 mmol/L | [facility] | | | | | | LABORATORY | | + + + + + + | Glucose | 77 | 65 - 99 mg/dL | [facility] | | | | | | LABORATORY | | + + + + + + | BUN | 17 | 8 - 25 mg/dL | [facility] | | | | | | LABORATORY | | + + + + + + | Creatinine | 0.87 | 0.70 - 1.30 | [facility] | | | | | mg/dL | LABORATORY | | + + + + + + | BUN/Creatin | 20 | | [facility] | | | ine Ratio | | | LABORATORY | | + + + + + + | Calcium | 8.7 | 8.5 - 10.5 | [facility] | | | | | mg/dL | LABORATORY | | + + + + + + | Protein, | 5.3 (L) | 6.3 - 8.2 g/dL | [facility] | | | Total | | | LABORATORY | | + + + + + + | Albumin | 3.0 (L) | 3.3 - 4.8 g/dL | [facility] | | | | | | LABORATORY | | + + + + + + | Globulin | 2.3 | 1.3 - 4.9 g/dL | [facility] | | | | | | LABORATORY | | + + + + + + | A/G Ratio | 1.3 | 1.0 - 2.4 | [facility] | | | | | | LABORATORY | | + + + + + + | BILIRUBIN, | 0.4 | 0.1 - 1.5 mg/dL | [facility] | | | TOTAL | | | LABORATORY | | + + + + + + | ALK PHOS | 186 (H) | 35 - 115 U/L | [facility] | | | | | | LABORATORY | | + + + + + + | AST | 42 | 10 - 45 U/L | [facility] | | | | | | LABORATORY | | + + + + + + | ALT | 27 | 10 - 65 U/L | [facility] | | | | | | LABORATORY | | + + + + + + | Estimated | >60Comment: GFR <60: | >60 | [facility] | | | GFR | CHRONIC KIDNEY DISEASE, | mL/min/1.73m2 | LABORATORY | | | | IF FOUND OVER A 3 MONTH | | | | | | PERIOD.GFR <15: KIDNEY | | | | | | FAILURE.FOR | | | | | | AMERICANS, MULTIPLY THE | | | | | | CALCULATED GFR BY | | | | | | 1.210.This eGFR is | | | | | | calculated using the | | | | | | MDRD IDMS traceable | | | | | | equation.Testing | | | | | | performed [place] [facility] [place] | | | [address];[place] | | | | | | [address] | | | | + + + + + + + + | Specimen | + + | Blood | + + + + + + + | Performing | Address | City/State/Zipcode | Phone Number | | Organization | | | | + + + + + | [facility] | [address] | [place] [address] | [phone] | + + + + + [facility] INR (09/19/2019 4:20 AM PST) + + + + + + | Component | Value | Ref Range | Performed | Pathologist | | | | | At | Signature | + + + + + + | INR | 2.9Comment: REFERENCE | | [facility] | | | | RANGE:0.9 - 1.2 | | LABORATORY | | | | NON-ANTICOAGULATED2.0 | | | | | | - 3.0 ALL OTHER | | | | | | THERAPEUTIC | | | | | | INDICATIONS2.5 - 3.5 | | | | | | MECHANICAL HEART VALVES, | | | | | | RECURRENT OR SYSTEMIC | | | | | | EMBOLISMTesting | | | | | | performed [place] [facility] [place] [facility] | | | | | | [address];[place], [place] | | | | | | [address] | | | | + + + + + + + + | Specimen | + + | Blood | + + + + + + + | Performing | Address | City/State/Zipcode | Phone Number | | Organization | | | | + + + + + | [facility] | [address] | [place] [address] | [phone] | + + + + + Magnesium (09/18/2019 4:06 AM PST) + + + + + + | Component | Value | Ref Range | Performed | Pathologist | | | | | At | Signature | + + + + + + | Magnesium | 1.9Comment: Testing | 1.7 - 2.4 mg/dL | [facility] | | | | performed at [facility] | | LABORATORY | | | | [address];[place] | | | | | | [address] | | | | + + + + + + + + | Specimen | + + | Blood | + + + + + + + | Performing | Address | City/State/Zipcode | Phone Number | | Organization | | | | + + + + + | [facility] | [address] | [place] [address] | [phone] | + + + + + CBC with Differential (09/18/2019 4:06 AM PST) + + + + + + | Component | Value | Ref Range | Performed | Pathologist | | | | | At | Signature | + + + + + + | WBC | 7.61 | 3.80 - 11.00 | [facility] | | | | | K/uL | LABORATORY | | + + + + + + | Red Blood | 3.08 (L) | 4.20 - 5.70 | [facility] | | | Cells | | M/uL | LABORATORY | | + + + + + + | Hemoglobin | 9.2 (L) | 13.2 - 17.0 | [facility] | | | | | g/dL | LABORATORY | | + + + + + + | Hematocrit | 27.5 (L) | 39.0 - 50.0 % | [facility] | | | | | | LABORATORY | | + + + + + + | MCV | 89.3 | 80.0 - 100.0 fl | [facility] | | | | | | LABORATORY | | + + + + + + | MCH | 29.9 | 27.0 - 34.0 pg | [facility] | | | | | | LABORATORY | | + + + + + + | MCHC | 33.5 | 32.0 - 35.5 | [facility] | | | | | g/dL | LABORATORY | | + + + + + + | RDW-SD | 50.4 | 37 - 53 fl | [facility] | | | | | | LABORATORY | | + + + + + + | Platelet | 308 | 150 - 400 K/uL | [facility] | | | Count | | | LABORATORY | | + + + + + + | MPV | 10.0Comment: NO NORMAL | fl | [facility] | | | | RANGE ESTABLISHED | | LABORATORY | | + + + + + + | Diff Type | AUTOMATED | | [facility] | | | | | | LABORATORY | | + + + + + + | % nRBC | 0.0 | 0 /100WBC | [facility] | | | | | | LABORATORY | | + + + + + + | % | 74.00 | % | [facility] | | | Neutrophils | | | LABORATORY | | + + + + + + | IMMATURE | 0.50 | % | [facility] | | | GRANULOCYTE | | | LABORATORY | | + + + + + + | % | 6.80 | % | [facility] | | | Lymphocytes | | | LABORATORY | | + + + + + + | Monocyte % | 10.60 | % | [facility] | | | | | | LABORATORY | | + + + + + + | Eosinophils | 7.40 | % | [facility] | | | % | | | LABORATORY | | + + + + + + | Basophils % | 0.70 | % | [facility] | | | | | | LABORATORY | | + + + + + + | Neutrophils | 5.63 | 1.90 - 7.40 | [facility] | | | , Absolute | | K/uL | LABORATORY | | + + + + + + | IMMATURE | 0.04Comment: NOTE NEW | 0.00 - 0.07 | [facility] | | | GRANS AB | REFERENCE RANGE | K/uL | LABORATORY | | + + + + + + | Absolute | 0.52 (L) | 1.00 - 3.90 | [facility] | | | Lymphocytes | | K/uL | LABORATORY | | + + + + + + | Absolute | 0.81 (H) | 0.00 - 0.80 | [facility] | | | Monocytes | | K/uL | LABORATORY | | + + + + + + | Eosinophils | 0.56 (H) | 0.00 - 0.50 | [facility] | | | , Absolute | | K/uL | LABORATORY | | + + + + + + | Basophils, | 0.05Comment: Testing | 0.00 - 0.10 | [facility] | | | Absolute | performed at [facility] | K/uL | LABORATORY | | | | [address];[place] | | | | | | [address] | | | | + + + + + + + + | Specimen | + + | Blood | + + + + + + + | Performing | Address | City/State/Zipcode | Phone Number | | Organization | | | | + + + + + | [facility] | [address] | [place] [address] | [phone] | + + + + + Comprehensive Metabolic Panel (09/18/2019 4:06 AM PST) + + + + + + | Component | Value | Ref Range | Performed | Pathologist | | | | | At | Signature | + + + + + + | Na | 135 | 135 - 145 | [facility] | | | | | mmol/L | LABORATORY | | + + + + + + | K | 3.8 | 3.5 - 4.9 | [facility] | | | | | mmol/L | LABORATORY | | + + + + + + | Cl | 102 | 99 - 109 mmol/L | [facility] | | | | | | LABORATORY | | + + + + + + | CO2 | 26 | 23 - 32 mmol/L | [facility] | | | | | | LABORATORY | | + + + + + + | Anion Gap | 11 | 5 - 20 mmol/L | [facility] | | | | | | LABORATORY | | + + + + + + | Glucose | 91 | 65 - 99 mg/dL | [facility] | | | | | | LABORATORY | | + + + + + + | BUN | 18 | 8 - 25 mg/dL | [facility] | | | | | | LABORATORY | | + + + + + + | Creatinine | 0.97 | 0.70 - 1.30 | [facility] | | | | | mg/dL | LABORATORY | | + + + + + + | BUN/Creatin | 19 | | [facility] | | | ine Ratio | | | LABORATORY | | + + + + + + | Calcium | 9.1 | 8.5 - 10.5 | [facility] | | | | | mg/dL | LABORATORY | | + + + + + + | Protein, | 5.2 (L) | 6.3 - 8.2 g/dL | [facility] | | | Total | | | LABORATORY | | + + + + + + | Albumin | 3.3 | 3.3 - 4.8 g/dL | [facility] | | | | | | LABORATORY | | + + + + + + | Globulin | 1.9 | 1.3 - 4.9 g/dL | [facility] | | | | | | LABORATORY | | + + + + + + | A/G Ratio | 1.7 | 1.0 - 2.4 | [facility] | | | | | | LABORATORY | | + + + + + + | BILIRUBIN, | 0.5 | 0.1 - 1.5 mg/dL | [facility] | | | TOTAL | | | LABORATORY | | + + + + + + | ALK PHOS | 202 (H) | 35 - 115 U/L | [facility] | | | | | | LABORATORY | | + + + + + + | AST | 30 | 10 - 45 U/L | [facility] | | | | | | LABORATORY | | + + + + + + | ALT | 18 | 10 - 65 U/L | [facility] | | | | | | LABORATORY | | + + + + + + | Estimated | >60Comment: GFR <60: | >60 | [facility] | | | GFR | CHRONIC KIDNEY DISEASE, | mL/min/1.73m2 | LABORATORY | | | | IF FOUND OVER A 3 MONTH | | | | | | PERIOD.GFR <15: KIDNEY | | | | | | FAILURE.FOR | | | | | | AMERICANS, MULTIPLY THE | | | | | | CALCULATED GFR BY | | | | | | 1.210.This eGFR is | | | | | | calculated using the | | | | | | [facility] traceable | | | | | | equation.Testing | | | | | | performed at [facility] | | | | | | [facility];[place], [place] | | | | | | [address] | | | | + + + + + + + + | Specimen | + + | Blood | + + + + + + + | Performing | Address | City/State/Zipcode | Phone Number | | Organization | | | | + + + + + | [facility] | [address] | [place] [address] | [phone] | + + + + + Protime INR (09/18/2019 4:06 AM PST) + + + + + + | Component | Value | Ref Range | Performed | Pathologist | | | | | At | Signature | + + + + + + | INR | 2.7Comment: REFERENCE | | [facility] | | | | RANGE:0.9 - 1.2 | | LABORATORY | | | | NON-ANTICOAGULATED2.0 | | | | | | - 3.0 ALL OTHER | | | | | | THERAPEUTIC | | | | | | INDICATIONS2.5 - 3.5 | | | | | | MECHANICAL HEART VALVES, | | | | | | RECURRENT OR SYSTEMIC | | | | | | EMBOLISMTesting | | | | | | performed at [facility] | | | | | | [address] [facility];[place], [place] | | | | | | [address] | | | | + + + + + + + + | Specimen | + + | Blood | + + + + + + + | Performing | Address | City/State/Zipcode | Phone Number | | Organization | | | | + + + + + | [facility] | [address] | [place] [address] | [phone] | + + + + + Magnesium (09/18/2019 12:02 AM PST) + + + + + + | Component | Value | Ref Range | Performed | Pathologist | | | | | At | Signature | + + + + + + | Magnesium | 2.0Comment: Testing | 1.7 - 2.4 mg/dL | [facility] | | | | performed at [facility] | | LABORATORY | | | | [address];[place] | | | | | | [address] | | | | + + + + + + + + | Specimen | + + | Blood | + + + + + + + | Performing | Address | City/State/Zipcode | Phone Number | | Organization | | | | + + + + + | [facility] | [address] | [place] [address] | [phone] | + + + + + Phosphorus (09/18/2019 12:02 AM PST) + + + + + + | Component | Value | Ref Range | Performed | Pathologist | | | | | At | Signature | + + + + + + | Phosphorus | 2.4Comment: Testing | 2.3 - 4.8 mg/dL | [facility] | | | | performed at [facility] | | LABORATORY | | | | [address];[place], [place] | | | | | | [address] | | | | + + + + + + + + | Specimen | + + | Blood | + + + + + + + | Performing | Address | City/State/Zipcode | Phone Number | | Organization | | | | + + + + + | [facility] | [address] | [place] [address] | [phone] | + + + + + Potassium (09/18/2019 12:02 AM PST) + + + + + + | Component | Value | Ref Range | Performed | Pathologist | | | | | At | Signature | + + + + + + | K | 3.8Comment: Testing | 3.5 - 4.9 | [facility] | | | | performed at [facility];[address] | mmol/L | LABORATORY | | | | [address];[place], [place] | | | | | | [address] | | | | + + + + + + + + | Specimen | + + | Blood | + + + + + + + | Performing | Address | City/State/Zipcode | Phone Number | | Organization | | | | + + + + + | [facility] | [address] | [place] [address] | [phone] | + + + + + Phosphorus (09/17/2019 4:38 AM PST) + + + + + + | Component | Value | Ref Range | Performed | Pathologist | | | | | At | Signature | + + + + + + | Phosphorus | 2.5Comment: Testing | 2.3 - 4.8 mg/dL | [facility] | | | | performed at [facility] | | LABORATORY | | | | [address];[place], [place] | | | | | | [address] | | | | + + + + + + + + | Specimen | + + | Blood | + + + + + + + | Performing | Address | City/State/Zipcode | Phone Number | | Organization | | | | + + + + + | [facility] | [address] | [place] [address] | [phone] | + + + + + Magnesium (09/17/2019 4:38 AM PST) + + + + + + | Component | Value | Ref Range | Performed | Pathologist | | | | | At | Signature | + + + + + + | Magnesium | 1.8Comment: Testing | 1.7 - 2.4 mg/dL | [facility] | | | | performed at [facility] | | LABORATORY | | | | [facility];[place], [place] | | | | | | [address] | | | | + + + + + + + + | Specimen | + + | Blood | + + + + + + + | Performing | Address | City/State/Zipcode | Phone Number | | Organization | | | | + + + + + | [facility] | [address] | [place] [address] | [phone] | + + + + + CBC with Differential (09/17/2019 4:38 AM PST) + + + + + + | Component | Value | Ref Range | Performed | Pathologist | | | | | At | Signature | + + + + + + | WBC | 7.74 | 3.80 - 11.00 | [facility] | | | | | K/uL | LABORATORY | | + + + + + + | Red Blood | 3.07 (L) | 4.20 - 5.70 | [facility] | | | Cells | | M/uL | LABORATORY | | + + + + + + | Hemoglobin | 9.3 (L) | 13.2 - 17.0 | [facility] | | | | | g/dL | LABORATORY | | + + + + + + | Hematocrit | 27.6 (L) | 39.0 - 50.0 % | [facility] | | | | | | LABORATORY | | + + + + + + | MCV | 89.9 | 80.0 - 100.0 fl | [facility] | | | | | | LABORATORY | | + + + + + + | MCH | 30.3 | 27.0 - 34.0 pg | [facility] | | | | | | LABORATORY | | + + + + + + | MCHC | 33.7 | 32.0 - 35.5 | [facility] | | | | | g/dL | LABORATORY | | + + + + + + | RDW-SD | 50.9 | 37 - 53 fl | [facility] | | | | | | LABORATORY | | + + + + + + | Platelet | 226 | 150 - 400 K/uL | [facility] | | | Count | | | LABORATORY | | + + + + + + | MPV | 10.2Comment: NO NORMAL | fl | [facility] | | | | RANGE ESTABLISHED | | LABORATORY | | + + + + + + | Diff Type | AUTOMATED | | [facility] | | | | | | LABORATORY | | + + + + + + | % nRBC | 0.0 | 0 /100WBC | [facility] | | | | | | LABORATORY | | + + + + + + | % | 76.70 | % | [facility] | | | Neutrophils | | | LABORATORY | | + + + + + + | IMMATURE | 0.30 | % | [facility] | | | GRANULOCYTE | | | LABORATORY | | + + + + + + | % | 4.80 | % | [facility] | | | Lymphocytes | | | LABORATORY | | + + + + + + | Monocyte % | 11.40 | % | [facility] | | | | | | LABORATORY | | + + + + + + | Eosinophils | 6.30 | % | [facility] | | | % | | | LABORATORY | | + + + + + + | Basophils % | 0.50 | % | [facility] | | | | | | LABORATORY | | + + + + + + | Neutrophils | 5.94 | 1.90 - 7.40 | [facility] | | | , Absolute | | K/uL | LABORATORY | | + + + + + + | IMMATURE | 0.02Comment: NOTE NEW | 0.00 - 0.07 | [facility] | | | GRANS AB | REFERENCE RANGE | K/uL | LABORATORY | | + + + + + + | Absolute | 0.37 (L) | 1.00 - 3.90 | [facility] | | | Lymphocytes | | K/uL | LABORATORY | | + + + + + + | Absolute | 0.88 (H) | 0.00 - 0.80 | [facility] | | | Monocytes | | K/uL | LABORATORY | | + + + + + + | Eosinophils | 0.49 | 0.00 - 0.50 | [facility] | | | , Absolute | | K/uL | LABORATORY | | + + + + + + | Basophils, | 0.04Comment: Testing | 0.00 - 0.10 | [facility] | | | Absolute | performed at [facility] | K/uL | LABORATORY | | | | [address];[place], [place] | | | | | | [address] | | | | + + + + + + + + | Specimen | + + | Blood | + + + + + + + | Performing | Address | City/State/Zipcode | Phone Number | | Organization | | | | + + + + + | [facility] | [address] | [place] [address] | [phone] | + + + + + Comprehensive Metabolic Panel (09/17/2019 4:38 AM PST) + + + + + + | Component | Value | Ref Range | Performed | Pathologist | | | | | At | Signature | + + + + + + | Na | 134 (L) | 135 - 145 | [facility] | | | | | mmol/L | LABORATORY | | + + + + + + | K | 3.7 | 3.5 - 4.9 | [facility] | | | | | mmol/L | LABORATORY | | + + + + + + | Cl | 103 | 99 - 109 mmol/L | [facility] | | | | | | LABORATORY | | + + + + + + | CO2 | 25 | 23 - 32 mmol/L | [facility] | | | | | | LABORATORY | | + + + + + + | Anion Gap | 10 | 5 - 20 mmol/L | [facility] | | | | | | LABORATORY | | + + + + + + | Glucose | 102 (H) | 65 - 99 mg/dL | [facility] | | | | | | LABORATORY | | + + + + + + | BUN | 16 | 8 - 25 mg/dL | [facility] | | | | | | LABORATORY | | + + + + + + | Creatinine | 0.91 | 0.70 - 1.30 | [facility] | | | | | mg/dL | LABORATORY | | + + + + + + | BUN/Creatin | 18 | | [facility] | | | ine Ratio | | | LABORATORY | | + + + + + + | Calcium | 8.7 | 8.5 - 10.5 | [facility] | | | | | mg/dL | LABORATORY | | + + + + + + | Protein, | 5.0 (L) | 6.3 - 8.2 g/dL | [facility] | | | Total | | | LABORATORY | | + + + + + + | Albumin | 3.2 (L) | 3.3 - 4.8 g/dL | [facility] | | | | | | LABORATORY | | + + + + + + | Globulin | 1.8 | 1.3 - 4.9 g/dL | [facility] | | | | | | LABORATORY | | + + + + + + | A/G Ratio | 1.8 | 1.0 - 2.4 | [facility] | | | | | | LABORATORY | | + + + + + + | BILIRUBIN, | 0.6 | 0.1 - 1.5 mg/dL | [facility] | | | TOTAL | | | LABORATORY | | + + + + + + | ALK PHOS | 200 (H) | 35 - 115 U/L | [facility] | | | | | | LABORATORY | | + + + + + + | AST | 27 | 10 - 45 U/L | [facility] | | | | | | LABORATORY | | + + + + + + | ALT | 14 | 10 - 65 U/L | [facility] | | | | | | LABORATORY | | + + + + + + | Estimated | >60Comment: GFR <60: | >60 | [facility] | | | GFR | CHRONIC KIDNEY DISEASE, | mL/min/1.73m2 | LABORATORY | | | | IF FOUND OVER A 3 MONTH | | | | | | PERIOD.GFR <15: KIDNEY | | | | | | FAILURE.FOR | | | | | | AMERICANS, MULTIPLY THE | | | | | | CALCULATED GFR BY | | | | | | 1.210.This eGFR is | | | | | | calculated using the | | | | | | [facility] traceable | | | | | | equation.Testing | | | | | | performed at [facility] | | | | | | [facility];[place], [place] | | | | | | [address] | | | | + + + + + + + + | Specimen | + + | Blood | + + + + + + + | Performing | Address | City/State/Zipcode | Phone Number | | Organization | | | | + + + + + | [facility] | [address] | [place] [address] | [phone] | + + + + + Sally BENNETT (09/17/2019 4:38 AM PST) + + + + + + | Component | Value | Ref Range | Performed | Pathologist | | | | | At | Signature | + + + + + + | INR | 2.2Comment: REFERENCE | | [facility] | | | | RANGE:0.9 - 1.2 | | LABORATORY | | | | NON-ANTICOAGULATED2.0 | | | | | | - 3.0 ALL OTHER | | | | | | THERAPEUTIC | | | | | | INDICATIONS2.5 - 3.5 | | | | | | MECHANICAL HEART VALVES, | | | | | | RECURRENT OR SYSTEMIC | | | | | | EMBOLISMTesting | | | | | | performed at [facility] | | | | | | [address] [facility];[place], [place] | | | | | | [address] | | | | + + + + + + + + | Specimen | + + | Blood | + + + + + + + | Performing | Address | City/State/Zipcode | Phone Number | | Organization | | | | + + + + + | [facility] | [address] | [place] [address] | [phone] | + + + + + Phosphorus (09/16/2019 4:11 AM PST) + + + + + + | Component | Value | Ref Range | Performed | Pathologist | | | | | At | Signature | + + + + + + | Phosphorus | 2.7Comment: Testing | 2.3 - 4.8 mg/dL | [facility] | | | | performed at [facility];[address] | | LABORATORY | | | | [address];[place] | | | | | | [address] | | | | + + + + + + + + | Specimen | + + | | + + + + + + + | Performing | Address | City/State/Zipcode | Phone Number | | Organization | | | | + + + + + | [facility] | [address] | [place] [address] | [phone] | + + + + + Magnesium (09/16/2019 4:11 AM PST) + + + + + + | Component | Value | Ref Range | Performed | Pathologist | | | | | At | Signature | + + + + + + | Magnesium | 2.4Comment: Testing | 1.7 - 2.4 mg/dL | [facility] | | | | performed at [facility] | | LABORATORY | | | | [address];[place] | | | | | | [address] | | | | + + + + + + + + | Specimen | + + | Blood | + + + + + + + | Performing | Address | City/State/Zipcode | Phone Number | | Organization | | | | + + + + + | [facility] | [address] | [place] [address] | [phone] | + + + + + CBC with Differential (09/16/2019 4:11 AM PST) + + + + + + | Component | Value | Ref Range | Performed | Pathologist | | | | | At | Signature | + + + + + + | WBC | 6.35 | 3.80 - 11.00 | [facility] | | | | | K/uL | LABORATORY | | + + + + + + | Red Blood | 2.78 (L) | 4.20 - 5.70 | [facility] | | | Cells | | M/uL | LABORATORY | | + + + + + + | Hemoglobin | 8.3 (L) | 13.2 - 17.0 | [facility] | | | | | g/dL | LABORATORY | | + + + + + + | Hematocrit | 25.3 (L) | 39.0 - 50.0 % | [facility] | | | | | | LABORATORY | | + + + + + + | MCV | 91.0 | 80.0 - 100.0 fl | [facility] | | | | | | LABORATORY | | + + + + + + | MCH | 29.9 | 27.0 - 34.0 pg | [facility] | | | | | | LABORATORY | | + + + + + + | MCHC | 32.8 | 32.0 - 35.5 | [facility] | | | | | g/dL | LABORATORY | | + + + + + + | RDW-SD | 52.0 | 37 - 53 fl | [facility] | | | | | | LABORATORY | | + + + + + + | Platelet | 209 | 150 - 400 K/uL | [facility] | | | Count | | | LABORATORY | | + + + + + + | MPV | 10.6Comment: NO NORMAL | fl | [facility] | | | | RANGE ESTABLISHED | | LABORATORY | | + + + + + + | Diff Type | AUTOMATED | | [facility] | | | | | | LABORATORY | | + + + + + + | % nRBC | 0.0 | 0 /100WBC | [facility] | | | | | | LABORATORY | | + + + + + + | % | 71.70 | % | [facility] | | | Neutrophils | | | LABORATORY | | + + + + + + | IMMATURE | 0.30 | % | [facility] | | | GRANULOCYTE | | | LABORATORY | | + + + + + + | % | 6.90 | % | [facility] | | | Lymphocytes | | | LABORATORY | | + + + + + + | Monocyte % | 12.30 | % | [facility] | | | | | | LABORATORY | | + + + + + + | Eosinophils | 8.20 | % | [facility] | | | % | | | LABORATORY | | + + + + + + | Basophils % | 0.60 | % | [facility] | | | | | | LABORATORY | | + + + + + + | Neutrophils | 4.55 | 1.90 - 7.40 | [facility] | | | , Absolute | | K/uL | LABORATORY | | + + + + + + | IMMATURE | 0.02Comment: NOTE NEW | 0.00 - 0.07 | [facility] | | | GRANS AB | REFERENCE RANGE | K/uL | LABORATORY | | + + + + + + | Absolute | 0.44 (L) | 1.00 - 3.90 | [facility] | | | Lymphocytes | | K/uL | LABORATORY | | + + + + + + | Absolute | 0.78 | 0.00 - 0.80 | [facility] | | | Monocytes | | K/uL | LABORATORY | | + + + + + + | Eosinophils | 0.52 (H) | 0.00 - 0.50 | [facility] | | | , Absolute | | K/uL | LABORATORY | | + + + + + + | Basophils, | 0.04Comment: Testing | 0.00 - 0.10 | [facility] | | | Absolute | performed at [facility] | K/uL | LABORATORY | | | | [address];[place] | | | | | | [address] | | | | + + + + + + + + | Specimen | + + | Blood | + + + + + + + | Performing | Address | City/State/Zipcode | Phone Number | | Organization | | | | + + + + + | [facility] | [address] | [place] [address] | [phone] | + + + + + Comprehensive Metabolic Panel (09/16/2019 4:11 AM PST) + + + + + + | Component | Value | Ref Range | Performed | Pathologist | | | | | At | Signature | + + + + + + | Na | 133 (L) | 135 - 145 | [facility] | | | | | mmol/L | LABORATORY | | + + + + + + | K | 4.2 | 3.5 - 4.9 | [facility] | | | | | mmol/L | LABORATORY | | + + + + + + | Cl | 104 | 99 - 109 mmol/L | [facility] | | | | | | LABORATORY | | + + + + + + | CO2 | 25 | 23 - 32 mmol/L | [facility] | | | | | | LABORATORY | | + + + + + + | Anion Gap | 8 | 5 - 20 mmol/L | [facility] | | | | | | LABORATORY | | + + + + + + | Glucose | 105 (H) | 65 - 99 mg/dL | [facility] | | | | | | LABORATORY | | + + + + + + | BUN | 18 | 8 - 25 mg/dL | [facility] | | | | | | LABORATORY | | + + + + + + | Creatinine | 0.97 | 0.70 - 1.30 | [facility] | | | | | mg/dL | LABORATORY | | + + + + + + | BUN/Creatin | 19 | | [facility] | | | ine Ratio | | | LABORATORY | | + + + + + + | Calcium | 8.6 | 8.5 - 10.5 | [facility] | | | | | mg/dL | LABORATORY | | + + + + + + | Protein, | 4.8 (L) | 6.3 - 8.2 g/dL | [facility] | | | Total | | | LABORATORY | | + + + + + + | Albumin | 3.0 (L) | 3.3 - 4.8 g/dL | [facility] | | | | | | LABORATORY | | + + + + + + | Globulin | 1.8 | 1.3 - 4.9 g/dL | [facility] | | | | | | LABORATORY | | + + + + + + | A/G Ratio | 1.7 | 1.0 - 2.4 | [facility] | | | | | | LABORATORY | | + + + + + + | BILIRUBIN, | 0.4 | 0.1 - 1.5 mg/dL | [facility] | | | TOTAL | | | LABORATORY | | + + + + + + | ALK PHOS | 159 (H) | 35 - 115 U/L | [facility] | | | | | | LABORATORY | | + + + + + + | AST | 23 | 10 - 45 U/L | [facility] | | | | | | LABORATORY | | + + + + + + | ALT | 10 | 10 - 65 U/L | [facility] | | | | | | LABORATORY | | + + + + + + | Estimated | >60Comment: GFR <60: | >60 | [facility] | | | GFR | CHRONIC KIDNEY DISEASE, | mL/min/1.73m2 | LABORATORY | | | | IF FOUND OVER A 3 MONTH | | | | | | PERIOD.GFR <15: KIDNEY | | | | | | FAILURE.FOR | | | | | | AMERICANS, MULTIPLY THE | | | | | | CALCULATED GFR BY | | | | | | 1.210.This eGFR is | | | | | | calculated using the | | | | | | MDRD IDMS traceable | | | | | | equation.Testing | | | | | | performed [place] [facility] [place] | | | | | | [facility];[place], [place] | | | | | | [id number] | | | | + + + + + + + + | Specimen | + + | Blood | + + + + + + + | Performing | Address | City/State/Zipcode | Phone Number | | Organization | | | | + + + + + | [facility] | [address] | [place] [address] | [phone] | + + + + + Protime INR (09/16/2019 4:11 AM PST) + + + + + + | Component | Value | Ref Range | Performed | Pathologist | | | | | At | Signature | + + + + + + | INR | 1.6Comment: REFERENCE | | [facility] | | | | RANGE:0.9 - 1.2 | | LABORATORY | | | | NON-ANTICOAGULATED2.0 | | | | | | - 3.0 ALL OTHER | | | | | | THERAPEUTIC | | | | | | INDICATIONS2.5 - 3.5 | | | | | | MECHANICAL HEART VALVES, | | | | | | RECURRENT OR SYSTEMIC | | | | | | EMBOLISMTesting | | | | | | performed at [facility] [id number];[place], [place] | | | | | | [id number] | | | | + + + + + + + + | Specimen | + + | Blood | + + + + + + + | Performing | Address | City/State/Zipcode | Phone Number | | Organization | | | | + + + + + | [facility] | [address] | [place] [address] | [phone] | + + + + + XR Chest AP Portable (09/15/2019 8:13 AM PST) + + | Specimen | + + | | + + + + + | Impressions | Performed At | + + + | Moderate sized focus of poorly defined increased opacity in the | [facility] | | medial right base most likely representing an area of consolidation, | | | new since the comparison. This is poorly evaluated given the lack | | | of a lateral view. Signed by: Katharine Toro, Carlin Sign | | | Date/Time: 09/15/2019 8:55 AM | | + + + + + + | Narrative | Performed At | + + + | CHEST PORTABLE ONE VIEW CLINICAL INFORMATION: Increased | [facility] | | white blood count. COMPARISON: CT CHEST WO CONTRAST (03/12/2018); | | | XR CHEST 2 VIEWS (02/03/2018); ECHO OUTSIDE INTERPRETATION | | | (01/28/2017); FINDINGS: Moderate sized poorly defined focus of | | | increased opacity in the medial right base. Low lung volumes. No | | | pleural effusion or pneumothorax. | | + + + + + | Procedure Note | + + | Zac Pierce Results In - 09/15/2019 8:58 AM PST | | CHEST PORTABLE ONE VIEW | | | | CLINICAL INFORMATION: | | Increased white blood count. | | | | COMPARISON: | | CT CHEST WO CONTRAST (03/12/2018); XR CHEST 2 VIEWS (02/03/2018); ECHO | | OUTSIDE INTERPRETATION (01/28/2017); | | | | FINDINGS: | | Moderate sized poorly defined focus of increased opacity in the medial | | right base. Low lung volumes. No pleural effusion or pneumothorax. | | | | IMPRESSION: | | Moderate sized focus of poorly defined increased opacity in the medial | | right base most likely representing an area of consolidation, new since | | the comparison. This is poorly evaluated given the lack of a lateral | | view. | | | | | | | | Signed by: Katharine Toro Gordon | | Sign Date/Time: 09/15/2019 8:55 AM | + + + +---------+ + + | Performing | Address | City/State/Zipcode | Phone Number | | Organization | | | | + +---------+ + + | [facility] | | | | + +---------+ + + Magnesium (09/15/2019 4:03 AM PST) + + + + + + | Component | Value | Ref Range | Performed | Pathologist | | | | | At | Signature | + + + + + + | Magnesium | 1.9Comment: Testing | 1.7 - 2.4 mg/dL | [facility] | | | | performed at [facility] | | LABORATORY | | | | [address];[place], [place] | | | | | | [address] | | | | + + + + + + + + | Specimen | + + | Blood | + + + + + + + | Performing | Address | City/State/Zipcode | Phone Number | | Organization | | | | + + + + + | [facility] | [address] | [place] [address] | [phone] | + + + + + CBC with Differential (09/15/2019 4:03 AM PST) + + + + + + | Component | Value | Ref Range | Performed | Pathologist | | | | | At | Signature | + + + + + + | WBC | 7.90 | 3.80 - 11.00 | [facility] | | | | | K/uL | LABORATORY | | + + + + + + | Red Blood | 2.99 (L) | 4.20 - 5.70 | [facility] | | | Cells | | M/uL | LABORATORY | | + + + + + + | Hemoglobin | 8.9 (L) | 13.2 - 17.0 | [facility] | | | | | g/dL | LABORATORY | | + + + + + + | Hematocrit | 27.4 (L) | 39.0 - 50.0 % | [facility] | | | | | | LABORATORY | | + + + + + + | MCV | 91.6 | 80.0 - 100.0 fl | [facility] | | | | | | LABORATORY | | + + + + + + | MCH | 29.8 | 27.0 - 34.0 pg | [facility] | | | | | | LABORATORY | | + + + + + + | MCHC | 32.5 | 32.0 - 35.5 | [facility] | | | | | g/dL | LABORATORY | | + + + + + + | RDW-SD | 51.9 | 37 - 53 fl | [facility] | | | | | | LABORATORY | | + + + + + + | Platelet | 179 | 150 - 400 K/uL | [facility] | | | Count | | | LABORATORY | | + + + + + + | MPV | 10.5Comment: NO NORMAL | fl | [facility] | | | | RANGE ESTABLISHED | | LABORATORY | | + + + + + + | Diff Type | AUTOMATED | | [facility] | | | | | | LABORATORY | | + + + + + + | % nRBC | 0.0 | 0 /100WBC | [facility] | | | | | | LABORATORY | | + + + + + + | % | 74.90 | % | [facility] | | | Neutrophils | | | LABORATORY | | + + + + + + | IMMATURE | 0.40 | % | [facility] | | | GRANULOCYTE | | | LABORATORY | | + + + + + + | % | 7.30 | % | [facility] | | | Lymphocytes | | | LABORATORY | | + + + + + + | Monocyte % | 11.40 | % | [facility] | | | | | | LABORATORY | | + + + + + + | Eosinophils | 5.60 | % | [facility] | | | % | | | LABORATORY | | + + + + + + | Basophils % | 0.40 | % | [facility] | | | | | | LABORATORY | | + + + + + + | Neutrophils | 5.92 | 1.90 - 7.40 | [facility] | | | , Absolute | | K/uL | LABORATORY | | + + + + + + | IMMATURE | 0.03Comment: NOTE NEW | 0.00 - 0.07 | [facility] | | | GRANS AB | REFERENCE RANGE | K/uL | LABORATORY | | + + + + + + | Absolute | 0.58 (L) | 1.00 - 3.90 | [facility] | | | Lymphocytes | | K/uL | LABORATORY | | + + + + + + | Absolute | 0.90 (H) | 0.00 - 0.80 | [facility] | | | Monocytes | | K/uL | LABORATORY | | + + + + + + | Eosinophils | 0.44 | 0.00 - 0.50 | [facility] | | | , Absolute | | K/uL | LABORATORY | | + + + + + + | Basophils, | 0.03Comment: Testing | 0.00 - 0.10 | [facility] | | | Absolute | performed at [facility] | K/uL | LABORATORY | | | | [address];[place], [place] | | | | | | [address] | | | | + + + + + + + + | Specimen | + + | Blood | + + + + + + + | Performing | Address | City/State/Zipcode | Phone Number | | Organization | | | | + + + + + | [facility] | [address] | [place] [address] | [phone] | + + + + + Comprehensive Metabolic Panel (09/15/2019 4:03 AM PST) + + + + + + | Component | Value | Ref Range | Performed | Pathologist | | | | | At | Signature | + + + + + + | Na | 134 (L) | 135 - 145 | [facility] | | | | | mmol/L | LABORATORY | | + + + + + + | K | 4.2 | 3.5 - 4.9 | [facility] | | | | | mmol/L | LABORATORY | | + + + + + + | Cl | 105 | 99 - 109 mmol/L | [facility] | | | | | | LABORATORY | | + + + + + + | CO2 | 24 | 23 - 32 mmol/L | [facility] | | | | | | LABORATORY | | + + + + + + | Anion Gap | 9 | 5 - 20 mmol/L | [facility] | | | | | | LABORATORY | | + + + + + + | Glucose | 101 (H) | 65 - 99 mg/dL | [facility] | | | | | | LABORATORY | | + + + + + + | BUN | 16 | 8 - 25 mg/dL | [facility] | | | | | | LABORATORY | | + + + + + + | Creatinine | 0.97 | 0.70 - 1.30 | [facility] | | | | | mg/dL | LABORATORY | | + + + + + + | BUN/Creatin | 16 | | [facility] | | | ine Ratio | | | LABORATORY | | + + + + + + | Calcium | 8.9 | 8.5 - 10.5 | [facility] | | | | | mg/dL | LABORATORY | | + + + + + + | Protein, | 5.3 (L) | 6.3 - 8.2 g/dL | [facility] | | | Total | | | LABORATORY | | + + + + + + | Albumin | 3.4 | 3.3 - 4.8 g/dL | [facility] | | | | | | LABORATORY | | + + + + + + | Globulin | 1.9 | 1.3 - 4.9 g/dL | [facility] | | | | | | LABORATORY | | + + + + + + | A/G Ratio | 1.8 | 1.0 - 2.4 | [facility] | | | | | | LABORATORY | | + + + + + + | BILIRUBIN, | 0.4 | 0.1 - 1.5 mg/dL | [facility] | | | TOTAL | | | LABORATORY | | + + + + + + | ALK PHOS | 103 | 35 - 115 U/L | [facility] | | | | | | LABORATORY | | + + + + + + | AST | 16 | 10 - 45 U/L | [facility] | | | | | | LABORATORY | | + + + + + + | ALT | 8 (L) | 10 - 65 U/L | [facility] | | | | | | LABORATORY | | + + + + + + | Estimated | >60Comment: GFR <60: | >60 | [facility] | | | GFR | CHRONIC KIDNEY DISEASE, | mL/min/1.73m2 | LABORATORY | | | | IF FOUND OVER A 3 MONTH | | | | | | PERIOD.GFR <15: KIDNEY | | | | | | FAILURE.FOR | | | | | | AMERICANS, MULTIPLY THE | | | | | | CALCULATED GFR BY | | | | | | 1.210.This eGFR is | | | | | | calculated using the | | | | | | MDRD IDWI traceable | | | | | | equation.Testing | | | | | | performed at [facility] | | | | | | [facility];[place], [place] | | | | | | [address] | | | | + + + + + + + + | Specimen | + + | Blood | + + + + + + + | Performing | Address | City/State/Zipcode | Phone Number | | Organization | | | | + + + + + | [facility] | [address] | [place] [address] | [phone] | + + + + + Protime INR (09/15/2019 4:03 AM PST) + + + + + + | Component | Value | Ref Range | Performed | Pathologist | | | | | At | Signature | + + + + + + | INR | 1.4Comment: REFERENCE | | [facility] | | | | RANGE:0.9 - 1.2 | | LABORATORY | | | | NON-ANTICOAGULATED2.0 | | | | | | - 3.0 ALL OTHER | | | | | | THERAPEUTIC | | | | | | INDICATIONS2.5 - 3.5 | | | | | | MECHANICAL HEART VALVES, | | | | | | RECURRENT OR SYSTEMIC | | | | | | EMBOLISMTesting | | | | | | performed at [facility] | | | | | | [facility];[place], [place] | | | | | | [address] | | | | + + + + + + + + | Specimen | + + | Blood | + + + + + + + | Performing | Address | City/State/Zipcode | Phone Number | | Organization | | | | + + + + + | [facility] | [address] | [place] [address] | [phone] | + + + + + Digoxin Level (09/15/2019 4:03 AM PST) + + + + + + | Component | Value | Ref Range | Performed | Pathologist | | | | | At | Signature | + + + + + + | Date of | | | [facility] | | | Last Dose | | | LABORATORY | | + + + + + + | Time of | | | [facility] | | | Last Dose | | | LABORATORY | | + + + + + + | Digoxin | 0.8 (L)Comment: Testing | 0.90 - 2.00 | [facility] | | | level | performed at [facility] | ng/mL | LABORATORY | | | | [address];[place], [place] | | | | | | [address] | | | | + + + + + + + + | Specimen | + + | Blood | + + + + + + + | Performing | Address | City/State/Zipcode | Phone Number | | Organization | | | | + + + + + | [facility] | [address] | [place] [address] | [phone] | + + + + + CBC with Differential (09/14/2019 9:23 AM PST) + + + + + + | Component | Value | Ref Range | Performed | Pathologist | | | | | At | Signature | + + + + + + | WBC | 8.85 | 3.80 - 11.00 | [facility] | | | | | K/uL | LABORATORY | | + + + + + + | Red Blood | 3.20 (L) | 4.20 - 5.70 | [facility] | | | Cells | | M/uL | LABORATORY | | + + + + + + | Hemoglobin | 9.6 (L) | 13.2 - 17.0 | [facility] | | | | | g/dL | LABORATORY | | + + + + + + | Hematocrit | 29.5 (L) | 39.0 - 50.0 % | [facility] | | | | | | LABORATORY | | + + + + + + | MCV | 92.2 | 80.0 - 100.0 fl | [facility] | | | | | | LABORATORY | | + + + + + + | MCH | 30.0 | 27.0 - 34.0 pg | [facility] | | | | | | LABORATORY | | + + + + + + | MCHC | 32.5 | 32.0 - 35.5 | [facility] | | | | | g/dL | LABORATORY | | + + + + + + | RDW-SD | 53.0 | 37 - 53 fl | [facility] | | | | | | LABORATORY | | + + + + + + | Platelet | 157 | 150 - 400 K/uL | [facility] | | | Count | | | LABORATORY | | + + + + + + | MPV | 10.3Comment: NO NORMAL | fl | [facility] | | | | RANGE ESTABLISHED | | LABORATORY | | + + + + + + | Diff Type | AUTOMATED | | [facility] | | | | | | LABORATORY | | + + + + + + | % nRBC | 0.0 | 0 /100WBC | [facility] | | | | | | LABORATORY | | + + + + + + | % | 82.10 | % | [facility] | | | Neutrophils | | | LABORATORY | | + + + + + + | IMMATURE | 0.30 | % | [facility] | | | GRANULOCYTE | | | LABORATORY | | + + + + + + | % | 4.30 | % | [facility] | | | Lymphocytes | | | LABORATORY | | + + + + + + | Monocyte % | 11.10 | % | [facility] | | | | | | LABORATORY | | + + + + + + | Eosinophils | 2.00 | % | [facility] | | | % | | | LABORATORY | | + + + + + + | Basophils % | 0.20 | % | [facility] | | | | | | LABORATORY | | + + + + + + | Neutrophils | 7.26 | 1.90 - 7.40 | [facility] | | | , Absolute | | K/uL | LABORATORY | | + + + + + + | IMMATURE | 0.03Comment: NOTE NEW | 0.00 - 0.07 | [facility] | | | GRANS AB | REFERENCE RANGE | K/uL | LABORATORY | | + + + + + + | Absolute | 0.38 (L) | 1.00 - 3.90 | [facility] | | | Lymphocytes | | K/uL | LABORATORY | | + + + + + + | Absolute | 0.98 (H) | 0.00 - 0.80 | [facility] | | | Monocytes | | K/uL | LABORATORY | | + + + + + + | Eosinophils | 0.18 | 0.00 - 0.50 | [facility] | | | , Absolute | | K/uL | LABORATORY | | + + + + + + | Basophils, | 0.02Comment: Testing | 0.00 - 0.10 | [facility] | | | Absolute | performed at [facility] | K/uL | LABORATORY | | | | [address];[place], [place] | | | | | | [address] | | | | + + + + + + + + | Specimen | + + | Blood | + + + + + + + | Performing | Address | City/State/Zipcode | Phone Number | | Organization | | | | + + + + + | [facility] | [address] | [place] [address] | [phone] | + + + + + Comprehensive Metabolic Panel (09/14/2019 9:23 AM PST) + + + + + + | Component | Value | Ref Range | Performed | Pathologist | | | | | At | Signature | + + + + + + | Na | 137 | 135 - 145 | [facility] | | | | | mmol/L | LABORATORY | | + + + + + + | K | 3.6 | 3.5 - 4.9 | [facility] | | | | | mmol/L | LABORATORY | | + + + + + + | Cl | 105 | 99 - 109 mmol/L | [facility] | | | | | | LABORATORY | | + + + + + + | CO2 | 25 | 23 - 32 mmol/L | [facility] | | | | | | LABORATORY | | + + + + + + | Anion Gap | 11 | 5 - 20 mmol/L | [facility] | | | | | | LABORATORY | | + + + + + + | Glucose | 104 (H) | 65 - 99 mg/dL | [facility] | | | | | | LABORATORY | | + + + + + + | BUN | 13 | 8 - 25 mg/dL | [facility] | | | | | | LABORATORY | | + + + + + + | Creatinine | 0.96 | 0.70 - 1.30 | [facility] | | | | | mg/dL | LABORATORY | | + + + + + + | BUN/Creatin | 14 | | [facility] | | | ine Ratio | | | LABORATORY | | + + + + + + | Calcium | 8.7 | 8.5 - 10.5 | [facility] | | | | | mg/dL | LABORATORY | | + + + + + + | Protein, | 5.2 (L) | 6.3 - 8.2 g/dL | [facility] | | | Total | | | LABORATORY | | + + + + + + | Albumin | 3.2 (L) | 3.3 - 4.8 g/dL | [facility] | | | | | | LABORATORY | | + + + + + + | Globulin | 2.0 | 1.3 - 4.9 g/dL | [facility] | | | | | | LABORATORY | | + + + + + + | A/G Ratio | 1.6 | 1.0 - 2.4 | [facility] | | | | | | LABORATORY | | + + + + + + | BILIRUBIN, | 0.3 | 0.1 - 1.5 mg/dL | [facility] | | | TOTAL | | | LABORATORY | | + + + + + + | ALK PHOS | 96 | 35 - 115 U/L | [facility] | | | | | | LABORATORY | | + + + + + + | AST | 15 | 10 - 45 U/L | [facility] | | | | | | LABORATORY | | + + + + + + | ALT | 10 | 10 - 65 U/L | [facility] | | | | | | LABORATORY | | + + + + + + | Estimated | >60Comment: GFR <60: | >60 | [facility] | | | GFR | CHRONIC KIDNEY DISEASE, | mL/min/1.73m2 | LABORATORY | | | | IF FOUND OVER A 3 MONTH | | | | | | PERIOD.GFR <15: KIDNEY | | | | | | FAILURE.FOR | | | | | | AMERICANS, MULTIPLY THE | | | | | | CALCULATED GFR BY | | | | | | 1.210.This eGFR is | | | | | | calculated using the | | | | | | MDRD IDWI traceable | | | | | | equation.Testing | | | | | | performed at [facility] | | | | | | [facility];[place], [place] | | | | | | [address] | | | | + + + + + + + + | Specimen | + + | Blood | + + + + + + + | Performing | Address | City/State/Zipcode | Phone Number | | Organization | | | | + + + + + | [facility] | [address] | [place] [address] | [phone] | + + + + + Magnesium (09/14/2019 9:23 AM PST) + + + + + + | Component | Value | Ref Range | Performed | Pathologist | | | | | At | Signature | + + + + + + | Magnesium | 1.6 (L)Comment: Testing | 1.7 - 2.4 mg/dL | [facility] | | | | performed at [facility];[address] | | LABORATORY | | | | [address];[place] | | | | | | [address] | | | | + + + + + + + + | Specimen | + + | Blood | + + + + + + + | Performing | Address | City/State/Zipcode | Phone Number | | Organization | | | | + + + + + | [facility] | [address] | [place] [address] | [phone] | + + + + + ECHO Complete (09/14/2019 9:00 AM PST) + + + + + + | Component | Value | Ref Range | Performed | Pathologist | | | | | At | Signature | + + + + + + | LVEF-TTE | 55 | % | [facility] | | | TRANSTHORAC | | | | | | IC ECHO | | | | | + + + + + + | Aortic | 2.24 | cm2 | [facility] | | | Valve Area | | | | | | by | | | | | | Planimetry | | | | | + + + + + + | Inferior | 2.5 | cm | [facility] | | | Vena Cava | | | | | | Diameter at | | | | | | Expiration | | | | | + + + + + + | RA PRESSURE | 15 | mmHg | [facility] | | + + + + + + | LVIDd | 4.24 | cm | [facility] | | + + + + + + | FS | 17 | % | [facility] | | + + + + + + | LA volume | 152.84 | mL | [facility] | | + + + + + + | Ascending | 3.76 | cm | [facility] | | | aorta | | | | | + + + + + + | AV | 474.49 | msec | [facility] | | | regurgitati | | | | | | on pressure | | | | | | 1/2 time | | | | | + + + + + + | AV mean | 3.96 | mmHg | [facility] | | | gradient | | | | | + + + + + + | Aortic | 2.43 | cm2 | [facility] | | | Valve Area | | | | | | by | | | | | | Continuity | | | | | | VTI | | | | | + + + + + + | LVOT | 2.2 | cm | [facility] | | | diameter | | | | | + + + + + + | LVOT peak | 70.93 | cm/s | [facility] | | | edie | | | | | + + + + + + | LVOT peak | 14.4 | cm | [facility] | | | VTI | | | | | + + + + + + | AV peak edie | 127.74 | cm/s | [facility] | | + + + + + + | AV VTI | 22.48 | cm | [facility] | | + + + + + + | AV peak | 6.53 | mmHg | [facility] | | | gradient | | | | | + + + + + + | TV peak | 0.93 | mmHg | [facility] | | | gradient | | | | | + + + + + + | Pulm Vein | 54.43 | cm/s | [facility] | | | Peak S Edie | | | | | + + + + + + | Pulm Vein | 88.13 | cm/s | [facility] | | | Peak D Edie | | | | | + + + + + + | LA Volume | 81 | mL/m2 | [facility] | | | Index | | | | | + + + + + + | AV LVOT | 2.02 | mmHg | [facility] | | | Peak | | | | | | Gradient | | | | | + + + + + + | AV LVOT | 1.26 | mmHg | [facility] | | | Mean | | | | | | Gradient | | | | | + + + + + + | TR Peak | 35 | mmHg | [facility] | | | Gradient | | | | | + + + + + + | TR Velocity | 295.53 | cm | [facility] | | + + + + + + | LV | 8.22 | cm | [facility] | | | Diastolic | | | | | | Length 4C | | | | | + + + + + + | LV | 41 | % | [facility] | | | Espinosa's | | | | | | Biplane EF | | | | | + + + + + + | LV ED | 99.92 | ml | [facility] | | | Volume | | | | | | (Espinosa's) | | | | | + + + + + + | LV ED | 53 | ml/m2 | [facility] | | | Volume | | | | | | Index | | | | | + + + + + + | LV ES | 59.38 | ml | [facility] | | | Volume | | | | | + + + + + + | LVOT Mean | 53.71 | cm/s | [facility] | | | Velocity | | | | | + + + + + + | RVSP | 50 | mmHg | [facility] | | | Estimated | | | | | + + + + + + | MV E' | 16.83 | cm/s | [facility] | | | Lateral | | | | | | Velocity | | | | | + + + + + + | MV E' | 7.56 | cm/s | [facility] | | | Septal | | | | | | Velocity | | | | | + + + + + + | TV | 122.57 | msec | [facility] | | | Deceleratio | | | | | | n Time | | | | | + + + + + + | TV Peak | 4.55 | cm/s | [facility] | | | A-Wave | | | | | + + + + + + | TV Peak | 48.13 | cm/s | [facility] | | | E-Wave | | | | | + + + + + + | AV | 225.61 | cm/s2 | [facility] | | | Deceleratio | | | | | | n [place]et | | | | | + + + + + + | AV | 1,636.16 | msec | [facility] | | | Deceleratio | | | | | | n Time | | | | | + + + + + + | AV Mean | 94.08 | cm/s | [facility] | | | Velocity | | | | | + + + + + + | RA Area | 25.12 | cm2 | [facility] | | + + + + + + | LA Area | 36.68 | cm2 | [facility] | | + + + + + + | LA Major | 0.2248 | cm | [facility] | | + + + + + + | LV ES | 31 | ml/m2 | [facility] | | | Volume | | | | | | Index | | | | | + + + + + + | Vitals | 97 | | [facility] | | | Heart Rate | | | | | | Rest | | | | | + + + + + + | Vitals | 68.0 | | [facility] | | | Height | | | | | + + + + + + | Vitals | 163.00 | | [facility] | | | Weight | | | | | + + + + + + | IVS | 1.61 | cm | [facility] | | | Diastolic | | | | | | Thickness | | | | | | MM | | | | | + + + + + + | LVPW | 1.6 | cm | [facility] | | | Diastolic | | | | | | Thickness | | | | | | MM | | | | | + + + + + + | IVS | 1.53 | cm | [facility] | | | Systolic | | | | | | Thickness | | | | | | MM | | | | | + + + + + + | LV Systolic | 3.54 | cm | [facility] | | | Diameter | | | | | | MM | | | | | + + + + + + | LVPW | 1.84 | cm | [facility] | | | Systolic | | | | | | Thickness | | | | | | MM | | | | | + + + + + + | TAPSE | 1.44 | cm | [facility] | | + + + + + + + + | Specimen | + + | | + + + + + | Narrative | Performed At | + + + | Low normal | [facility] | | left ventricular systolic function estimated ejection fraction of | | | 50-55%. Mild aortic regurgitation. 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 Aortic sinus 4.71 cm. | | | There is pulmonary hypertension. Estimated right ventricular systolic | | | pressure (RVSP) is 50 mmHg. | | |pressure (RVSP) is 50 mmHg. | | | | | + + + + +---------+ + + | Performing | Address | City/State/Zipcode | Phone Number | | Organization | | | | + +---------+ + + | [facility] | | | | + +---------+ + + Sally INR (09/14/2019 4:09 AM PST) + + + + + + | Component | Value | Ref Range | Performed | Pathologist | | | | | At | Signature | + + + + + + | INR | 1.3Comment: REFERENCE | | [facility] | | | | RANGE:0.9 - 1.2 | | LABORATORY | | | | NON-ANTICOAGULATED2.0 | | | | | | - 3.0 ALL OTHER | | | | | | THERAPEUTIC | | | | | | INDICATIONS2.5 - 3.5 | | | | | | MECHANICAL HEART VALVES, | | | | | | RECURRENT OR SYSTEMIC | | | | | | EMBOLISMTesting | | | | | | performed at [facility] | | | | | | [facility];[place], [place] | | | | | | [address] | | | | + + + + + + + + | Specimen | + + | Blood | + + + + + + + | Performing | Address | City/State/Zipcode | Phone Number | | Organization | | | | + + + + + | [facility] | [address] | [place] [address] | [phone] | + + + + + POC Glucose (09/13/2019 12:29 PM PST) + + + + + + | Component | Value | Ref Range | Performed | Pathologist | | | | | At | Signature | + + + + + + | Glucose, | 148 (H)Comment: Testing | 65 - 99 mg/dL | [facility] | | | POC | performed at [facility];[address] | | LABORATORY | | | | [address];[place], [place] | | | | | | [address] | | | | + + + + + + + + | Specimen | + + | | + + + + + + + | Performing | Address | City/State/Zipcode | Phone Number | | Organization | | | | + + + + + | [facility] | [address] | [place] [address] | [phone] | + + + + + Sally BENNETT (09/13/2019 4:05 AM PST) + + + + + + | Component | Value | Ref Range | Performed | Pathologist | | | | | At | Signature | + + + + + + | INR | 1.2Comment: REFERENCE | | [facility] | | | | RANGE:0.9 - 1.2 | | LABORATORY | | | | NON-ANTICOAGULATED2.0 | | | | | | - 3.0 ALL OTHER | | | | | | THERAPEUTIC | | | | | | INDICATIONS2.5 - 3.5 | | | | | | MECHANICAL HEART VALVES, | | | | | | RECURRENT OR SYSTEMIC | | | | | | EMBOLISMTesting | | | | | | performed at [facility] | | | | | | [address] [facility];[place], [place] | | | | | | [address] | | | | + + + + + + + + | Specimen | + + | Blood | + + + + + + + | Performing | Address | City/State/Zipcode | Phone Number | | Organization | | | | + + + + + | [facility] | [address] | [place] [address] | [phone] | + + + + + CBC with Differential (09/13/2019 4:05 AM PST) + + + + + + | Component | Value | Ref Range | Performed | Pathologist | | | | | At | Signature | + + + + + + | WBC | 10.81 | 3.80 - 11.00 | [facility] | | | | | K/uL | LABORATORY | | + + + + + + | Red Blood | 3.32 (L) | 4.20 - 5.70 | [facility] | | | Cells | | M/uL | LABORATORY | | + + + + + + | Hemoglobin | 10.0 (L) | 13.2 - 17.0 | [facility] | | | | | g/dL | LABORATORY | | + + + + + + | Hematocrit | 30.9 (L) | 39.0 - 50.0 % | [facility] | | | | | | LABORATORY | | + + + + + + | MCV | 93.1 | 80.0 - 100.0 fl | [facility] | | | | | | LABORATORY | | + + + + + + | MCH | 30.1 | 27.0 - 34.0 pg | [facility] | | | | | | LABORATORY | | + + + + + + | MCHC | 32.4 | 32.0 - 35.5 | [facility] | | | | | g/dL | LABORATORY | | + + + + + + | RDW-SD | 54.0 (H) | 37 - 53 fl | [facility] | | | | | | LABORATORY | | + + + + + + | Platelet | 154 | 150 - 400 K/uL | [facility] | | | Count | | | LABORATORY | | + + + + + + | MPV | 10.4Comment: NO NORMAL | fl | [facility] | | | | RANGE ESTABLISHED | | LABORATORY | | + + + + + + | Diff Type | AUTOMATED | | [facility] | | | | | | LABORATORY | | + + + + + + | % nRBC | 0.0 | 0 /100WBC | [facility] | | | | | | LABORATORY | | + + + + + + | % | 80.10 | % | [facility] | | | Neutrophils | | | LABORATORY | | + + + + + + | IMMATURE | 0.60 | % | [facility] | | | GRANULOCYTE | | | LABORATORY | | + + + + + + | % | 4.40 | % | [facility] | | | Lymphocytes | | | LABORATORY | | + + + + + + | Monocyte % | 12.00 | % | [facility] | | | | | | LABORATORY | | + + + + + + | Eosinophils | 2.70 | % | [facility] | | | % | | | LABORATORY | | + + + + + + | Basophils % | 0.20 | % | [facility] | | | | | | LABORATORY | | + + + + + + | Neutrophils | 8.66 (H) | 1.90 - 7.40 | [facility] | | | , Absolute | | K/uL | LABORATORY | | + + + + + + | IMMATURE | 0.06Comment: NOTE NEW | 0.00 - 0.07 | [facility] | | | GRANS AB | REFERENCE RANGE | K/uL | LABORATORY | | + + + + + + | Absolute | 0.48 (L) | 1.00 - 3.90 | [facility] | | | Lymphocytes | | K/uL | LABORATORY | | + + + + + + | Absolute | 1.30 (H) | 0.00 - 0.80 | [facility] | | | Monocytes | | K/uL | LABORATORY | | + + + + + + | Eosinophils | 0.29 | 0.00 - 0.50 | [facility] | | | , Absolute | | K/uL | LABORATORY | | + + + + + + | Basophils, | 0.02Comment: Testing | 0.00 - 0.10 | [facility] | | | Absolute | performed at [facility] | [address]/uL | LABORATORY | | | | [address];[place], [place] | | | | | | [address] | | | | + + + + + + + + | Specimen | + + | Blood | + + + + + + + | Performing | Address | City/State/Zipcode | Phone Number | | Organization | | | | + + + + + | [facility] | [address] | [place] [address] | [phone] | + + + + + Basic Metabolic Panel (09/13/2019 4:05 AM PST) + + + + + + | Component | Value | Ref Range | Performed | Pathologist | | | | | At | Signature | + + + + + + | Na | 137 | 135 - 145 | [facility] | | | | | mmol/L | LABORATORY | | + + + + + + | K | 3.7 | 3.5 - 4.9 | [facility] | | | | | mmol/L | LABORATORY | | + + + + + + | Cl | 104 | 99 - 109 mmol/L | [facility] | | | | | | LABORATORY | | + + + + + + | CO2 | 25 | 23 - 32 mmol/L | [facility] | | | | | | LABORATORY | | + + + + + + | Anion Gap | 12 | 5 - 20 mmol/L | [facility] | | | | | | LABORATORY | | + + + + + + | Glucose | 100 (H) | 65 - 99 mg/dL | [facility] | | | | | | LABORATORY | | + + + + + + | BUN | 15 | 8 - 25 mg/dL | [facility] | | | | | | LABORATORY | | + + + + + + | Creatinine | 1.00 | 0.70 - 1.30 | [facility] | | | | | mg/dL | LABORATORY | | + + + + + + | BUN/Creatin | 15 | | [facility] | | | ine Ratio | | | LABORATORY | | + + + + + + | Calcium | 8.6 | 8.5 - 10.5 | [facility] | | | | | mg/dL | LABORATORY | | + + + + + + | Estimated | >60Comment: GFR <60: | >60 | [facility] | | | GFR | CHRONIC KIDNEY DISEASE, | mL/min/1.73m2 | LABORATORY | | | | IF FOUND OVER A 3 MONTH | | | | | | PERIOD.GFR <15: KIDNEY | | | | | | FAILURE.FOR | | | | | | AMERICANS, MULTIPLY THE | | | | | | CALCULATED GFR BY | | | | | | 1.210.This eGFR is | | | | | | calculated using the | | | | | | MDRD IDMS traceable | | | | | | equation.Testing | | | | | | performed at [facility] | | | | | | [facility];[place], [place] | | | | | | [address] | | | | + + + + + + + + | Specimen | + + | Blood | + + + + + + + | Performing | Address | City/State/Zipcode | Phone Number | | Organization | | | | + + + + + | [facility] | [address] | [place] [address] | [phone] | + + + + + Troponin I (09/12/2019 5:28 PM PST) + + + + + + | Component | Value | Ref Range | Performed | Pathologist | | | | | At | Signature | + + + + + + | Troponin I | 0.167 (H)Comment: 0.04 | 0.00 - 0.04 | [facility] | | | | ng/mL or less | ng/mL | LABORATORY | | | | Negative, repeat | | | | | | testing in four to six | | | | | | hour ifclinically | | | | | | indicted0.05 to 0.77 | | | | | | ng/mL | | | | | | Suspicious for | | | | | | myocardial injury. | | | | | | Serial measurementsmay | | | | | | be necessary to confirm | | | | | | or exclude the diagnosis | | | | | | of acute | | | | | | coronarysyndrome. Repeat | | | | | | testing in four to six | | | | | | hours if indicated.0.78 | | | | | | or greater ng/mL | | | | | | Consistent with | | | | | | myocardial injury. | | | | | | Clinical andlaboratory | | | | | | correlation recommended. | | | | | | Testing performed at | | | | | | [facility] | | | | | | [address];[place] [address] | | | | + + + + + + + + | Specimen | + + | Blood | + + + + + + + | Performing | Address | City/State/Zipcode | Phone Number | | Organization | | | | + + + + + | [facility] | [address] | [place] [address] | [phone] | + + + + + Protime INR (09/12/2019 4:27 PM PST) + + + + + + | Component | Value | Ref Range | Performed | Pathologist | | | | | At | Signature | + + + + + + | INR | 1.2Comment: REFERENCE | | [facility] | | | | RANGE:0.9 - 1.2 | | LABORATORY | | | | NON-ANTICOAGULATED2.0 | | | | | | - 3.0 ALL OTHER | | | | | | THERAPEUTIC | | | | | | INDICATIONS2.5 - 3.5 | | | | | | MECHANICAL HEART VALVES, | | | | | | RECURRENT OR SYSTEMIC | | | | | | EMBOLISMTesting | | | | | | performed at [facility];[address] | | | | | [address];[place] | | | | | | [address] | | | | + + + + + + + + | Specimen | + + | Blood | + + + + + + + | Performing | Address | City/State/Zipcode | Phone Number | | Organization | | | | + + + + + | [facility] | [address] | [place] [address] | [phone] | + + + + + Troponin I (09/12/2019 11:25 AM PST) + + + + + + | Component | Value | Ref Range | Performed | Pathologist | | | | | At | Signature | + + + + + + | Troponin I | 0.136 (H)Comment: 0.04 | 0.00 - 0.04 | [facility] | | | | ng/mL or less | ng/mL | LABORATORY | | | | Negative, repeat | | | | | | testing in four to six | | | | | | hour ifclinically | | | | | | indicted0.05 to 0.77 | | | | | | ng/mL | | | | | | Suspicious for | | | | | | myocardial injury. | | | | | | Serial measurementsmay | | | | | | be necessary to confirm | | | | | | or exclude the diagnosis | | | | | | of acute | | | | | | coronarysyndrome. Repeat | | | | | | testing in four to six | | | | | | hours if indicated.0.78 | | | | | | or greater ng/mL | | | | | | Consistent with | | | | | | myocardial injury. | | | | | | Clinical andlaboratory | | | | | | correlation recommended. | | | | | | Testing performed at | | | | | | [facility] [facility] | | | | | | [address];[place] [address] | | | | + + + + + + + + | Specimen | + + | Blood | + + + + + + + | Performing | Address | City/State/Zipcode | Phone Number | | Organization | | | | + + + + + | [facility] | [address] | [place] [address] | [phone] | + + + + + ECG 12 lead (09/12/2019 11:17 AM PST) + + + + + + | Component | Value | Ref Range | Performed | Pathologist | | | | | At | Signature | + + + + + + | VENTRICULAR | 77 | BPM | [facility] | | | RATE EKG | | | | | + + + + + + | ATRIAL RATE | 250 | BPM | [facility] | | + + + + + + | QRS | 94 | ms | [facility] | | | DURATION | | | | | + + + + + + | Q-T | 344 | ms | [facility] | | | INTERVAL | | | | | + + + + + + | Q-T | 389 | ms | [facility] | | | INTERVAL | | | | | | (CORRECTED) | | | | | + + + + + + | QRS AXIS | -28 | degrees | [facility] | | + + + + + + | T AXIS | 170 | degrees | [facility] | | + + + + + + | INTERPRETAT | Atrial | | [facility] | | | ION TEXT | fibrillationNonspecific | | | | | | ST and T wave | | | | | | abnormalityAbnormal | | | | | | ECGConfirmed by | | | | | | Anurag Villa MD | | | | | | ([id number]) on 09/12/2019 | | | | | | 6:27:24 PM | | | | + + + + + + + + | Specimen | + + | | + + + + + | Narrative | Performed At | + + + | | | + + + + +---------+ + + | Performing | Address | City/State/Zipcode | Phone Number | | Organization | | | | + +---------+ + + | [facility] | | | | + +---------+ + + CBC with Differential (09/12/2019 4:31 AM PST) + + + + + + | Component | Value | Ref Range | Performed | Pathologist | | | | | At | Signature | + + + + + + | WBC | 9.67 | 3.80 - 11.00 | [facility] | | | | | K/uL | LABORATORY | | + + + + + + | Red Blood | 3.30 (L) | 4.20 - 5.70 | [facility] | | | Cells | | M/uL | LABORATORY | | + + + + + + | Hemoglobin | 9.8 (L) | 13.2 - 17.0 | [facility] | | | | | g/dL | LABORATORY | | + + + + + + | Hematocrit | 31.1 (L) | 39.0 - 50.0 % | [facility] | | | | | | LABORATORY | | + + + + + + | MCV | 94.2 | 80.0 - 100.0 fl | [facility] | | | | | | LABORATORY | | + + + + + + | MCH | 29.7 | 27.0 - 34.0 pg | [facility] | | | | | | LABORATORY | | + + + + + + | MCHC | 31.5 (L) | 32.0 - 35.5 | [facility] | | | | | g/dL | LABORATORY | | + + + + + + | RDW-SD | 54.3 (H) | 37 - 53 fl | [facility] | | | | | | LABORATORY | | + + + + + + | Platelet | 161 | 150 - 400 K/uL | [facility] | | | Count | | | LABORATORY | | + + + + + + | MPV | 9.7Comment: NO NORMAL | fl | [facility] | | | | RANGE ESTABLISHED | | LABORATORY | | + + + + + + | Diff Type | AUTOMATED | | [facility] | | | | | | LABORATORY | | + + + + + + | % nRBC | 0.0 | 0 /100WBC | [facility] | | | | | | LABORATORY | | + + + + + + | % | 81.50 | % | [facility] | | | Neutrophils | | | LABORATORY | | + + + + + + | IMMATURE | 0.30 | % | [facility] | | | GRANULOCYTE | | | LABORATORY | | + + + + + + | % | 5.00 | % | [facility] | | | Lymphocytes | | | LABORATORY | | + + + + + + | Monocyte % | 9.80 | % | [facility] | | | | | | LABORATORY | | + + + + + + | Eosinophils | 3.10 | % | [facility] | | | % | | | LABORATORY | | + + + + + + | Basophils % | 0.30 | % | [facility] | | | | | | LABORATORY | | + + + + + + | Neutrophils | 7.88 (H) | 1.90 - 7.40 | [facility] | | | , Absolute | | K/uL | LABORATORY | | + + + + + + | IMMATURE | 0.03Comment: NOTE NEW | 0.00 - 0.07 | [facility] | | | GRANS AB | REFERENCE RANGE | K/uL | LABORATORY | | + + + + + + | Absolute | 0.48 (L) | 1.00 - 3.90 | [facility] | | | Lymphocytes | | K/uL | LABORATORY | | + + + + + + | Absolute | 0.95 (H) | 0.00 - 0.80 | [facility] | | | Monocytes | | K/uL | LABORATORY | | + + + + + + | Eosinophils | 0.30 | 0.00 - 0.50 | [facility] | | | , Absolute | | K/uL | LABORATORY | | + + + + + + | Basophils, | 0.03Comment: Testing | 0.00 - 0.10 | [facility] | | | Absolute | performed at [facility] | K/uL | LABORATORY | | | | [address] [facility];[place], [place] | | | | | | [address] | | | | + + + + + + + + | Specimen | + + | Blood | + + + + + + + | Performing | Address | City/State/Zipcode | Phone Number | | Organization | | | | + + + + + | [facility] | [address] | [place] [address] | [phone] | + + + + + Basic Metabolic Panel (09/12/2019 4:31 AM PST) + + + + + + | Component | Value | Ref Range | Performed | Pathologist | | | | | At | Signature | + + + + + + | Na | 139 | 135 - 145 | [facility] | | | | | mmol/L | LABORATORY | | + + + + + + | K | 4.2 | 3.5 - 4.9 | [facility] | | | | | mmol/L | LABORATORY | | + + + + + + | Cl | 104 | 99 - 109 mmol/L | [facility] | | | | | | LABORATORY | | + + + + + + | CO2 | 27 | 23 - 32 mmol/L | [facility] | | | | | | LABORATORY | | + + + + + + | Anion Gap | 12 | 5 - 20 mmol/L | [facility] | | | | | | LABORATORY | | + + + + + + | Glucose | 103 (H) | 65 - 99 mg/dL | [facility] | | | | | | LABORATORY | | + + + + + + | BUN | 17 | 8 - 25 mg/dL | [facility] | | | | | | LABORATORY | | + + + + + + | Creatinine | 1.08 | 0.70 - 1.30 | [facility] | | | | | mg/dL | LABORATORY | | + + + + + + | BUN/Creatin | 16 | | [facility] | | | ine Ratio | | | LABORATORY | | + + + + + + | Calcium | 8.2 (L) | 8.5 - 10.5 | [facility] | | | | | mg/dL | LABORATORY | | + + + + + + | Estimated | >60Comment: GFR <60: | >60 | [facility] | | | GFR | CHRONIC KIDNEY DISEASE, | mL/min/1.73m2 | LABORATORY | | | | IF FOUND OVER A 3 MONTH | | | | | | PERIOD.GFR <15: KIDNEY | | | | | | FAILURE.FOR | | | | | | AMERICANS, MULTIPLY THE | | | | | | CALCULATED GFR BY | | | | | | 1.210.This eGFR is | | | | | | calculated using the | | | | | | MDRD IDMS traceable | | | | | | equation.Testing | | | | | | performed at [facility] | | | | | | [facility];[place], [place] | | | | | | [address] | | | | + + + + + + + + | Specimen | + + | Blood | + + + + + + + | Performing | Address | City/State/Zipcode | Phone Number | | Organization | | | | + + + + + | [facility] | [address] | [place] [address] | [phone] | + + + + + Protime INR (09/11/2019 2:35 PM PST) + + + + + + | Component | Value | Ref Range | Performed | Pathologist | | | | | At | Signature | + + + + + + | INR | 1.2Comment: REFERENCE | | [facility] | | | | RANGE:0.9 - 1.2 | | LABORATORY | | | | NON-ANTICOAGULATED2.0 | | | | | | - 3.0 ALL OTHER | | | | | | THERAPEUTIC | | | | | | INDICATIONS2.5 - 3.5 | | | | | | MECHANICAL HEART VALVES, | | | | | | RECURRENT OR SYSTEMIC | | | | | | EMBOLISMTesting | | | | | | performed at [facility] | | | | | | [address] [facility];[place] | | | | | | [address] | | | | + + + + + + + + | Specimen | + + | Blood | + + + + + + + | Performing | Address | City/State/Zipcode | Phone Number | | Organization | | | | + + + + + | [facility] | [address] | [place] [address] | [phone] | + + + + + IR Angiogram Lower Extremity Left (09/11/2019 11:36 AM PST) + + | Specimen | + + | | + + + + ---+ | Narrative | Performed A t | + + ---+ | [facility] | | Health & Services OPERATIVE REPORT PATIENT NAME: Deborah Bautista | | | Katelin AGE: 89 y.o. TODAY'S DATE: 09/28/2019 | | | Date of Procedure: 09/11/2019 Surgeon: | | | Surgeon(s):Yolanda Perkins MD Surgical Assists: Kendell | | | MEHRDAD Robertson Anesthesiologist: No responsible provider has been recorded | | | for the case. Anesthesia: General Anesthesia Pre-op Diagnosis: Left | | | lower extremity critical limb ischemia Post-op Diagnosis: Same | | | Procedure:1. Left common femoral endarterectomy with bovine | | | pericardial patch2. Left profunda femoral endarterectomy3. Left | | | external iliac artery endarterectomy4. Aortogram5. Left lower | | | extremity angiogram6. Left common iliac artery angioplasty and stent | | | with 10 x 39 mm VBX, and 10 x 29 mm VBX7. Left external iliac artery | | | angioplasty and stent with 8 x 50 mm viabahn Radiation: 212 mGy | | | Fluoro Time: 31.2 min Contrast: 50 ml Indications: Mr. Devlin is an | | | 88-year-old male who has a past medical history significant for | | | hypertension, hyperlipidemia, CAD, peripheral vascular disease who | | | presented to clinic with a left fifth metatarsal ulcer. Patient had | | | previous studies which showed an JEREMY of 0.3 on the left. Patient had | | | a week left common femoral artery pulse. CT scan showed severe | | | stenosis of the left common femoral artery as well as the left common | | | and external iliacs.Patient was indicated for intervention given his | | | left lower extremity critical limb ischemia. We discussed the risks, | | | benefits, and alternatives to surgery. Patient wished to proceed | | | with a left common femoral endarterectomy with a aortogram, Left iliac | | | intervention. Consent was obtained. Estimated Blood Loss: 300 mL | | | Transfused: No Complications: none Technique/Procedure Description: | | | The patient was brought to the angio suite and placed in the supine | | | position. General endotracheal anesthesia was induced | | | uneventfully.Preoperative antibiotic was delivered. The patient's | | | abdomen and bilateral groins were prepped and draped in the usual | | | sterile fashion.A timeout was held verifying patient, procedure to be | | | performed, and consent.We began the procedure by making a vertical | | | incision in the left groin. This was carried down with | | | electrocautery. The left common femoral was identified and the | | | femoral sheath was incised. The common femoral profunda superficial | | | femoral arteries were all dissected sharply from the surrounding | | | tissue. The inguinal ligament was lifted and the external iliac | | | artery was also only circumferentially dissected sharply from its its | | | surrounding tissues. The patient was noted to have severe | | | atherosclerotic disease with near occlusion of the common femoral | | | artery. Vesseloops were placed around the profunda, common femoral, | | | external iliac, and superficial femoral arteries. Patient was then | | | given systemic heparin.Clamps were then applied to the external iliac | | | artery above the inguinal ligament, and profunda. Using a #11 blade | | | and arteriotomy was made. The incision was Extended proximally onto | | | the external iliac and distally onto the profunda femoris artery. | | | The patient again was noted to have near occlusion of the common | | | femoral and the ostium of the profunda femoris artery. The patient | | | also had severe atherosclerosis of the external iliac artery. Using | | | a [place] a endarterectomy was performed of the common femoral and | | | profunda femoris arteries. Using eversion technique endarterectomy | | | of the external iliac artery was performed as well. We then | | | introduced a bovine pericardial patch and patch to the artery from the | | | external iliac onto the profunda femoris artery using 5-0 Prolene | | | suture. Prior to completing the anastomosis all vessels were allowed | | | to Back bleeding and were flushed with heparinized saline. The | | | anastomosis was completed and the clamps released. The patient was | | | noted to have a weak pulse at the common femoral artery. Given this | | | the patch was accessed with a micropuncture needle. A wire was | | | advanced and a 8 [place] 23 cm Sheath was placed. A an aortogram was | | | then completed which showed severe atherosclerosis with near occlusion | | | of the common and external iliac arteries. The patient was also | | | noted to have a previously placed right common iliac artery stent | | | which extended well past the ostium of the right common iliac and | | | crossed the ostium of the left common iliac artery. A glidewire was | | | then able to be advanced however there was great difficulty advancing | | | past the aortic bifurcation as I believe the wire was being hung up on | | | the struts of the previous placed right common iliac stent. Dr. Peterson | | | came to assist with the Left common, And external iliac artery | | | stents. A catheter was then able to pass over this wire and the | | | Glidewire was exchanged for a stiff Amplatz wire. Then introduced a | | | 3 mm [place] angioplasty balloon and dilated the common and external | | | iliac arteries. After dilation with a 3 mm balloon we introduced a 5 | | | mm balloon and again performed balloon angioplasty of the common and | | | external iliac arteries. Given the severe calcification without was | | | passed to first deploy are covered stents prior to being more | | | aggressive with our balloon angioplasty. We then introduced a 10 mm | | | x 39 mm VBX covered stent and positioned this at the common iliac | | | artery. This had to be deployed just distal to the ostium as the | | | other stent from the right common iliac artery prevented us from doing | | | a kissing stent as we feared that the right stent would become Kinked | | | and occluded. Once in good position this was deployed. We then | | | introduced an additional 10 x 29 mm stent And deployed this To the | | | level of the external iliac artery. The internal iliac artery was | | | heavily diseased and appeared to be mostly occluded and therefore was | | | covered. Extended this into the external iliac artery with an 8 by 5 | | | viabahn stent. The common iliac was then post dilated with a 10 mm | | | [place] and the external iliac post dilated with an 8 mm [place]. | | | Repeat contrast injection showed brisk filling of the common and | | | external iliac arteries on the left. There was a strong left common | | | femoral artery pulse. I then performed an angiogram of the left | | | lower extremity. The left superficial femoral artery was patent With | | | scattered disease throughout. The popliteal artery was diseased and | | | occluded at the below-knee pop. The tibioperoneal trunk was | | | occluded. The Posterior tibial, peroneal arteries are occluded at | | | the ostium. The anterior tibial artery has disease proximally but is | | | patent and the primary runoff to the foot. Given the length of the | | | procedure at this point I elected not to perform further lower | | | extremity intervention. I felt given the significant improvement in | | | inflow disease the patient should get out of rest pain as well as heal | | | his wound. Therefore, the wire and sheath was removed. A suture | | | was then placed in the patch. There was good hemostasis. The | | | Doppler was then brought onto the field there was a strong multiphasic | | | signal in the profunda femoris, SFA, and SYRUP SHED SUPERVISOR. The left groin wound | | | was thoroughly irrigated. The incision was then closed in layers | | | first with a 2-0 Vicryl, then 3-0 Vicryl. Phillips were used to | | | re-approximate the skin. Sterile dressings were applied. The | | | patient was noted to have a strong Dorsalis pedis Doppler signal at | | | the conclusion.All counts were correct at conclusion of the case.The | | | patient tolerated the procedure well.The patient was awakened and | | | extubated in the operating room transfer the recovery area in stable | | | condition. I was present and scrubbed for the entire duration of the | | | procedure. Findings: Severe left common femoral stenosis. Common and | | | external iliac arteries with severe stenosis which responded well to | | | angioplasty and stenting. Previously placed right LIA stent extended | | | well into the aorta crossing ostium of left LIA origin. Osmin Garber, | | | MDVascular Surgery | | |and external iliac arteries on the left. There was a strong left common | | |femoral artery pulse. I then performed an angiogram of the left lower | | |extremity. The left superficial femoral artery was patent With scattered | | |disease throughout. The popliteal artery was diseased and occluded at the | | |below-knee pop. The tibioperoneal trunk was occluded. The Posterior | | |tibial, peroneal arteries are occluded at the ostium. The anterior tibial | | |artery has disease proximally but is patent and the primary runoff to the | | |foot. Given the length of the procedure at this point I elected not to | | |perform further lower extremity intervention. I felt given the | | |significant improvement in inflow disease the patient should get out of | | |rest pain as well as heal his wound. Therefore, the wire and sheath was | | |removed. A suture was then placed in the patch. There was good | | |hemostasis. The Doppler was then brought onto the field there was a | | |strong multiphasic signal in the profunda femoris, SFA, and SYRUP SHED SUPERVISOR. The left | | |groin wound was thoroughly irrigated. The incision was then closed in | | |layers first with a 2-0 Vicryl, then 3-0 Vicryl. Phillips were used to | | |re-approximate the skin. Sterile dressings were applied. The patient was | | |noted to have a strong Dorsalis pedis Doppler signal at the conclusion.All | | |counts were correct at conclusion of the case.The patient tolerated the | | |procedure well.The patient was awakened and extubated in the operating | | |room transfer the recovery area in stable condition. I was present and | | |scrubbed for the entire duration of the procedure. | | | | | |Findings: Severe left common femoral stenosis. Common and external iliac | | |arteries with severe stenosis which responded well to angioplasty and | | |stenting. Previously placed right LIA stent extended well into the aorta | | |crossing ostium of left LIA origin. | | | | | |Osmin Garber MD | | |Vascular Surgery | | + + ---+ + +---------+ + + | Performing | Address | City/State/[facility] | Phone Number | | Organization | | | | + +---------+ + + | [facility] | | | | + +---------+ + + Surgical Pathology Exam (09/11/2019 8:17 AM PST) + + | Specimen | + + | Tissue - Lymph node | | sample (specimen) | + + | Soft tissue sample | | (specimen) - | | Arterial part (body | | structure) | + + + + + | Narrative | Performed At | + + + | SPECIMEN(S): A | [facility] | | LEFT FEMORAL/GROIN LYMPH NODE(S)SPECIMEN(S): B LEFT FEMORAL ARTERY | INCYTE | | PLAQUE SPECIMEN SOURCE:A. LEFT FEMORAL/GROIN LYMPH NODE(S)B. LEFT | | | FEMORAL ARTERY PLAQUE CLINICAL HISTORY:I73.9 (peripheral artery | | | disease) FINAL PATHOLOGIC DIAGNOSIS:A. Femoral/groin lymph nodes, | | | dissection:- Benign fibrotic lymph nodes, negative for malignancy. | | | B. Left femoral artery plaque, endarterectomy:- Atherosclerotic | | | plaque with dystrophic calcification. AMB:emb:C2NR MICROSCOPIC | | | EXAMINATION:Histologic sections of all submitted blocks are examined | | | by light microscopy. These findings, together with the gross | | | examination, support the pathologic diagnosis. GROSS DESCRIPTION:Two | | | specimens are received in two containers, labeled "LK." A. The | | | specimen, labeled "LK, lymph nodes femoral/groin," is received in | | | formalin and consists of a 3.6 x 3 x 2.2 cm yellow lobulated portion | | | of adipose tissue. The cut surfaces demonstrates a 2.8 x2.4 x 1.6 cm | | | rubbery pink to pale red lymph node with homogeneous cut surfaces. | | | Account Resolution Analyst sections of the lymph node are submitted in cassettes | | | A1 and A2. B. The specimen, labeled "LK, left femoral artery | | | plaque," is received in formalin and consists of four cobb-yellow | | | elongated portions of calcified material that vary from 1.3 x 0.6 x | | | 0.5 cm to 3.3 x0.8 x 0.6 cm. The cut surfaces are laminated | | | herrera-yellow. Account Resolution Analyst sections are submitted in cassette A1 | | | following decalcification.SS (under the direct supervision of a | | | pathologist) The Gross Description was prepared using a voice | | | recognition system. The report was reviewed for accuracy; however, | | | sound-alike word errors, addition and/or deletions may occur. If | | | there is anyquestion about this report, please contact Client | | | Services. PERFORMING LABORATORY:The technical component was performed | | | by [facility], [address] [place] [address] (Medical | | | Director: Radha Morse MD; CLIA# [id number]). Professional | | | [facility] | | | [address] [address] (Medical | | | Director: Prasanth Suggs M.D.; CLIA#: [id number]). Diagnostician: | | | Radha ALLENathologistElectronically Signed 09/14/2019 | | |question about this report, please contact Client Services. | | | | | |PERFORMING LABORATORY: | | |The technical component was performed by [facility], [address] [place] [address] (Motor Pool Driver: Radha Morse MD; CLIA# [id number]). Professional interpretation was performed by | | |[facility] [address] (Motor Pool Driver: Prasanth Suggs M.D.; CLIA#: [id number]). | | | | | |Diagnostician: Radha Morse MD | | |Pathologist | | |Electronically Signed 09/14/2019 | | | | | | | | + + + + +---------+ + + | Performing | Address | City/State/Zipcode | Phone Number | | Organization | | | | + +---------+ + + | [facility] | | | | | [facility] | | | | + +---------+ + + Protime INR (09/11/2019 6:48 AM PST) + + + + + + | Component | Value | Ref Range | Performed | Pathologist | | | | | At | Signature | + + + + + + | INR | 1.2Comment: REFERENCE | | [facility] | | | | RANGE:0.9 - 1.2 | | LABORATORY | | | | NON-ANTICOAGULATED2.0 | | | | | | - 3.0 ALL OTHER | | | | | | THERAPEUTIC | | | | | | INDICATIONS2.5 - 3.5 | | | | | | MECHANICAL HEART VALVES, | | | | | | RECURRENT OR SYSTEMIC | | | | | | EMBOLISMTesting | | | | | | performed [place] [facility] [place] | | | | | | [address];[place] | | | | | | [id number] | | | | + + + + + + + + | Specimen | + + | Blood | + + + + + + + | Performing | Address | City/State/Zipcode | Phone Number | | Organization | | | | + + + + + | [facility] | [address] | [place] [address] | [phone] | + + + + + documented in this encounter Visit Diagnoses + + | Diagnosis | + + | PVD (peripheral vascular disease) ([facility]) - Primary Peripheral vascular disease, | | unspecified | + + | PAD (peripheral artery disease) ([facility]) Unspecified disorders of arteries and | | arterioles | + + | Bilateral carotid artery stenosis Occlusion and stenosis of multiple and bilateral | | precerebral arteries without mention of cerebral infarction | + + | Chronic anemia Anemia, unspecified | + + | Chronic atrial fibrillation Atrial fibrillation | + + | Chronic diastolic heart failure (HCC) Chronic diastolic heart failure | + + | Essential hypertension Unspecified essential hypertension | + + | Atrial fibrillation with RVR ([facility]) Atrial fibrillation | + + | Postprocedural hypotension Other iatrogenic hypotension | + + | Cellulitis of left thigh Cellulitis and abscess of leg, except foot | + + documented in this encounter Admitting Diagnoses + + | Diagnosis | + + | PAD (peripheral artery disease) ([facility]) Unspecified disorders of arteries and | | arterioles | + + documented in this encounter Administered Medications + +---------+ +------+-------+------+ | Medication Order | MAR | Action | Dose | Rate | Site | | | Action | Date | | | | + +---------+ +------+-------+------+ | albumin 5% IVPB 25 g 25 g, | New Bag | 09/12/19 | 25 g | 500 | | | Intravenous, Administer over 1 | | 20 11:45 | | mL/hr | | | Hours, ONCE, 09/12/19 at 1145, | | AM PST | | | | | For 1 dose | | | | | | + +---------+ +------+-------+------+ +---+---+ | | | +---+---+ + +---------+ +------+-------+---+ | albumin 5% IVPB 25 g 25 g, | New Bag | 09/15/19 | 25 g | 500 | | | Intravenous, Administer over 1 | | 20 12:20 | | mL/hr | | | Hours, ONCE, [facility] 09/15/19 at 0015, | | AM PST | | | | | For 1 dose | | | | | | + +---------+ +------+-------+---+ + +---+ | | | + +---+ | amiodarone (PACERONE) tablet | | | 200 mg 200 mg, Oral, DAILY, | | | First dose on [facility] 09/24/19 at 0900 | | + +---+ | | | + +---+ + +-------+ +--------+---+---+ | amiodarone (PACERONE) tablet | Given | 09/20/19 | 400 mg | | | | 400 mg 400 mg, Oral, 2 TIMES | | 20 8:23 | | | | | DAILY, First dose (after last | | AM PST | | | | | modification) on Sat09/16/19 at | | | | | | | 1015, For 14 doses | | | | | | + +-------+ +--------+---+---+ +-------+ +--------+---+---+ | Given | 09/19/19 | 400 mg | | | | | 20 8:12 | | | | | | PM PST | | | | +-------+ +--------+---+---+ | Given | 09/19/19 | 400 mg | | | | | 20 8:02 | | | | | | AM PST | | | | +-------+ +--------+---+---+ +---+---+ | | | +---+---+ + +---------+ + +-------+---+ | amiodarone in dextrose | New Bag | 09/13/19 | 1 mg/min | 33.3 | | | (NEXTERONE) 1.8 mg/mL infusion 1 | | 20 1:24 | | mL/hr | | | mg/min (33.3333 mL/hr, rounded | | PM PST | | | | | to 33.3 mL/hr), at 33.3 mL/hr, | | | | | | | Intravenous, CONTINUOUS, Starting | | | | | | | 09/13/19 at 1330, For 6 | | | | | | | hours, Use 0.2 micron filter for | | | | | | | administration., | | | | | | + +---------+ + +-------+---+ +---+---+ | | | +---+---+ + +---------+ +--------+-------+---+ | amiodarone in dextrose | New Bag | 09/15/19 | 0.5 | 16.7 | | | (NEXTERONE) 1.8 mg/mL infusion | | 20 9:24 | mg/min | mL/hr | | | 0.5 mg/min (16.6667 mL/hr, | | PM PST | | | | | rounded to 16.7 mL/hr), at 16.7 | | | | | | | mL/hr, Intravenous, CONTINUOUS, | | | | | | | Starting 09/13/19 at 1930, Use | | | | | | | 0.2 micron filter for | | | | | | | administration., | | | | | | + +---------+ +--------+-------+---+ +---------+ +--------+-------+---+ | New Bag | 09/15/19 | 0.5 | 16.7 | | | | 20 8:10 | mg/min | mL/hr | | | | AM PST | | | | +---------+ +--------+-------+---+ | New Bag | 09/14/19 | 0.5 | 16.7 | | | | 20 8:37 | mg/min | mL/hr | | | | PM PST | | | | +---------+ +--------+-------+---+ +---+---+ | | | +---+---+ + +---------+ +--------+-------+---+ | amiodarone in dextrose | New Bag | 09/13/19 | 150 mg | 600 | | | (NEXTERONE) 150 mg/100 mL bolus | | 20 1:15 | | mL/hr | | | 150 mg 150 mg, Intravenous, | | PM PST | | | | | Administer over 10 Minutes, ONCE, | | | | | | | 09/13/19 at 1315, For 1 dose, | | | | | | | Use 0.2 micron filter for | | | | | | | administration., | | | | | | + +---------+ +--------+-------+---+ +---+---+ | | | +---+---+ + +-------+ +-------+---+---+ | bisacodyl (DULCOLAX) | Given | 09/16/19 | 10 mg | | | | suppository 10 mg 10 mg, Rectal, | | 20 8:06 | | | | | DAILY PRN, Constipation, | | PM PST | | | | | Starting 09/16/19 at 1951 | | | | | | + +-------+ +-------+---+---+ +---+---+ | | | +---+---+ + +---------+ +-----+-------+---+ | ceFAZolin (ANCEF, KEFZOL) 1 g | New Bag | 09/15/19 | 1 g | 100 | | | in sodium chloride 0.9% 50 mL | | 20 5:32 | | mL/hr | | | IVPB 1 g, Intravenous, | | AM PST | | | | | Administer over 30 Minutes, EVERY | | | | | | | 8 HOURS (3 times per day), First | | | | | | | dose on 09/13/19 at 1430, | | | | | | | Activate system and mix before | | | | | | | use., Indications: SKIN AND SOFT | | | | | | | TISSUE ABSCESS | | | | | | + +---------+ +-----+-------+---+ +---------+ +-----+-------+---+ | New Bag | 09/14/19 | 1 g | 100 | | | | 20 10:52 | | mL/hr | | | | PM PST | | | | +---------+ +-----+-------+---+ | New Bag | 09/14/19 | 1 g | 100 | | | | 20 1:25 | | mL/hr | | | | PM PST | | | | +---------+ +-----+-------+---+ +---+---+ | | | +---+---+ + +-------+ +--------+---+---+ | clopidogrel (PLAVIX) tablet 300 | Given | 09/11/19 | 300 mg | | | | mg 300 mg, Oral, ONCE, Fri | | 20 4:53 | | | | | 09/11/19 at 1600, For 1 dose | | PM PST | | | | + +-------+ +--------+---+---+ +---+---+ | | | +---+---+ + +-------+ +-------+---+---+ | clopidogrel (PLAVIX) tablet 75 | Given | 09/20/19 | 75 mg | | | | mg 75 mg, Oral, DAILY, First | | 20 8:23 | | | | | dose on 09/12/19 at 0900 | | AM PST | | | | + +-------+ +-------+---+---+ +-------+ +-------+---+---+ | Given | 09/19/19 | 75 mg | | | | | 20 8:02 | | | | | | AM PST | | | | +-------+ +-------+---+---+ | Given | 09/18/19 | 75 mg | | | | | 20 9:46 | | | | | | AM PST | | | | +-------+ +-------+---+---+ +---+---+ | | | +---+---+ + +-------+ +---------+---+---+ | digoxin (LANOXIN) tablet 125 | Given | 09/20/19 | 125 mcg | | | | mcg 125 mcg, Oral, DAILY, First | | 20 8:23 | | | | | dose on Sat09/11/19 at 1515 | | AM PST | | | | + +-------+ +---------+---+---+ +-------+ +---------+---+---+ | Given | 09/19/19 | 125 mcg | | | | | 20 8:02 | | | | | | AM PST | | | | +-------+ +---------+---+---+ | Given | 09/18/19 | 125 mcg | | | | | 20 9:46 | | | | | | AM PST | | | | +-------+ +---------+---+---+ +---+---+ | | | +---+---+ + +-------+ +--------+---+---+ | docusate sodium (COLACE) | Given | 09/20/19 | 100 mg | | | | capsule 100 mg 100 mg, Oral, 2 | | 20 8:23 | | | | | TIMES DAILY, First dose on Sat | | AM PST | | | | | 09/15/19 at 1145, Swallow capsule | | | | | | | whole., | | | | | | + +-------+ +--------+---+---+ +-------+ +--------+---+---+ | Given | 09/19/19 | 100 mg | | | | | 20 8:12 | | | | | | PM PST | | | | +-------+ +--------+---+---+ | Given | 09/19/19 | 100 mg | | | | | 20 8:02 | | | | | | AM PST | | | | +-------+ +--------+---+---+ +---+---+ | | | +---+---+ + +-------+ +-------+---+ + | enoxaparin (LOVENOX) 40 mg/0.4 | Given | 09/13/19 | 40 mg | | Abdomen- | | mL injection 40 mg 40 mg, | | 20 9:00 | | | LLQ | | Subcutaneous, EVERY 24 HOURS | | AM PST | | | | | (Daily), First dose on Sat | | | | | | | 09/12/19 at 0700, Give first dose | | | | | | | within 20 hours of surgery end | | | | | | | time. Nursing/Pharmacy to retime | | | | | | | first dose to 1900 for surgeries | | | | | | | ending between 2200 and 0900. , | | | | | | | Post-op/Phase II | | | | | | + +-------+ +-------+---+ + +-------+ +-------+---+ + | Given | 09/12/19 | 40 mg | | Abdomen- | | | 20 6:03 | | | LLQ | | | AM PST | | | | +-------+ +-------+---+ + +---+---+ | | | +---+---+ + +-------+ +-------+---+ + | enoxaparin (LOVENOX) 80 mg/0.8 | Given | 09/17/19 | 80 mg | | Abdomen- | | mL injection 80 mg 80 mg | | 20 9:02 | | | LLQ | | (rounded from 74.3 mg = 1 mg/kg | | AM PST | | | | | | | | | | | | 74.3 kg), Subcutaneous, EVERY 12 | | | | | | | HOURS (2 times per day), First | | | | | | | dose (after last modification) on | | | | | | | 09/14/19 at 0900, Dose | | | | | | | modification per renal dosing | | | | | | | protocol., Post-op/Phase II | | | | | | + +-------+ +-------+---+ + +-------+ +-------+---+ + | Given | 09/16/19 | 80 mg | | Abdomen- | | | 20 8:06 | | | LLQ | | | PM PST | | | | +-------+ +-------+---+ + | Given | 09/16/19 | 80 mg | | Abdomen- | | | 20 8:58 | | | RLQ | | | AM PST | | | | +-------+ +-------+---+ + +---+---+ | | | +---+---+ + +-------+ +--------+---+---+ | fentaNYL (PF) injection 25-50 | Given | 09/11/19 | 25 mcg | | | | mcg 25-50 mcg, Intravenous, | | 20 12:40 | | | | | EVERY 5 MIN PRN, Pain, Initial | | PM PST | | | | | postop medication for URGENT PAIN | | | | | | | OR ESCALATING PAIN, Starting Fri | | | | | | | 09/11/19 at 1221, For 4 doses, | | | | | | | First dose must be lowest dose. | | | | | | | Use Pasero Sedation Scale. | | | | | | | [Opioid tolerant = One week or | | | | | | | longer, moaxdo-jrw-mkqks use of | | | | | | | at least the following DAILY | | | | | | | dose: 60mg oral morphine, 60mg | | | | | | | oral hydrocodone, 30mg oral | | | | | | | oxycodone, 8mg oral | | | | | | | hydromorphone, fentanyl patch | | | | | | | 25mcg/hr, or equivalent dose of | | | | | | | another opioid], Recovery/Phase I | | | | | | + +-------+ +--------+---+---+ +---+---+ | | | +---+---+ + +-------+ +-------+---+---+ | furosemide (LASIX) injection 20 | Given | 09/16/19 | 20 mg | | | | mg 20 mg, Intravenous, ONCE, | | 20 2:30 | | | | | 09/16/19 at 1400, For 1 dose | | PM PST | | | | + +-------+ +-------+---+---+ +---+---+ | | | +---+---+ + +-------+ +-------+---+---+ | furosemide (LASIX) injection 20 | Given | 09/17/19 | 20 mg | | | | mg 20 mg, Intravenous, ONCE, | | 20 3:53 | | | | | Sandy 09/17/19 at 1415, For 1 dose | | PM PST | | | | + +-------+ +-------+---+---+ +---+---+ | | | +---+---+ + +-------+ +-------+---+---+ | furosemide (LASIX) injection 20 | Given | 09/18/19 | 20 mg | | | | mg 20 mg, Intravenous, ONCE, | | 20 9:47 | | | | | 09/18/19 at 1000, For 1 dose | | AM PST | | | | + +-------+ +-------+---+---+ +---+---+ | | | +---+---+ + +-------+ +-------+---+---+ | furosemide (LASIX) tablet 20 mg | Given | 09/11/19 | 20 mg | | | | 20 mg, Oral, DAILY, First dose | | 20 4:52 | | | | | on Sat09/11/19 at 1515, | | PM PST | | | | | Post-op/Phase II | | | | | | + +-------+ +-------+---+---+ +---+---+ | | | +---+---+ + +-------+ +--------+---+---+ | iohexol (OMNIPAQUE 240) 240 | Given | 09/11/19 | 50 mLs | | | | mg/mL injection Intravenous, | | 20 11:41 | | | | | PRN, Starting Sat09/11/19 at 1141 | | AM PST | | | | + +-------+ +--------+---+---+ +---+---+ | | | +---+---+ + +---------+ +--------+-------+---+ | lactated ringers (LR) bolus | New Bag | 09/13/19 | 1,000 | 1000 | | | 1,000 mL 1,000 mL, Intravenous, | | 20 5:28 | mLs | mL/hr | | | Administer over 1 Hours, ONCE, | | PM PST | | | | | 09/13/19 at 1745, For 1 dose | | | | | | + +---------+ +--------+-------+---+ +---+---+ | | | +---+---+ + + + +---+ +---+ | lactated ringers (LR) infusion | Rate/Dos | 09/11/19 | | 75 mL/hr | | | at 75 mL/hr, Intravenous, | e Change | 20 9:00 | | | | | CONTINUOUS, Starting 09/11/19 | | PM PST | | | | | at 1445, For 10 hours, | | | | | | | Post-op/Phase II | | | | | | + + + +---+ +---+ +---------+ +---+-------+---+ | New Bag | 09/11/19 | | 100 | | | | 20 4:52 | | mL/hr | | | | PM PST | | | | +---------+ +---+-------+---+ +---+---+ | | | +---+---+ + +-------+ +--------+---+---+ | lidocaine 1% injection PRN, | Given | 09/11/19 | 10 mLs | | | | Starting 09/11/19 at 0754 | | 20 7:54 | | | | | | | AM PST | | | | + +-------+ +--------+---+---+ +---+---+ | | | +---+---+ + +-------+ +--------+---+---+ | magnesium hydroxide (MILK OF | Given | 09/17/19 | 30 mLs | | | | MAGNESIA) 400 mg/5 mL suspension | | 20 2:45 | | | | | 30 mL 30 mL, Oral, NIGHTLY PRN, | | AM PST | | | | | Constipation, Starting Sandy | | | | | | | 09/17/19 at 0231, Thad appiah, | | | | | | + +-------+ +--------+---+---+ +---+---+ | | | +---+---+ + +-------+ +--------+---+---+ | magnesium oxide (MAG-OX) tablet | Given | 09/20/19 | 800 mg | | | | 800 mg 800 mg, Oral, DAILY PRN, | | 20 6:45 | | | | | Per protocol, Starting Mon | | AM PST | | | | | 09/14/19 at 1119, NON-ICU Protocol | | | | | | | Replace magnesium once per day | | | | | | | based on morning magnesium level. | | | | | | | Use scale below to determine | | | | | | | dose. If further replacement is | | | | | | | required after this morning dose | | | | | | | of magnesium, notify provider | | | | | | | Protocol NOT recommended if Scr > | | | | | | | 1.8, dialysis patients or CrCl < | | | | | | | 50 mL/min Magnesium = 1-1.9 | | | | | | | mg/dL Give magnesium oxide 800 | | | | | | | mg PO x1 * Check magnesium in | | | | | | | AM If unable to tolerate po or | | | | | | | magnesium < 1mg/dL use IV | | | | | | | magnesium replacement. Give PO or | | | | | | | IV but never both. Maximum | | | | | | | recommended infusion rate = 1 | | | | | | | gram/hour., | | | | | | + +-------+ +--------+---+---+ +-------+ +--------+---+---+ | Given | 09/19/19 | 800 mg | | | | | 20 6:31 | | | | | | AM PST | | | | +-------+ +--------+---+---+ | Given | 09/18/19 | 800 mg | | | | | 20 6:35 | | | | | | AM PST | | | | +-------+ +--------+---+---+ +---+---+ | | | +---+---+ + +---------+ +-----+ +---+ | magnesium sulfate 2 g/50 mL | New Bag | 09/17/19 | 2 g | 25 mL/hr | | | IVPB 2 g 2 g, Intravenous, | | 20 6:40 | | | | | Administer over 120 Minutes, | | AM PST | | | | | DAILY PRN, Per protocol, Starting | | | | | | | 09/14/19 at 1119, NON-ICU | | | | | | | Protocol Replace magnesium once | | | | | | | per day based on morning | | | | | | | magnesium level. Use scale below | | | | | | | to determine dose. If further | | | | | | | replacement is required after | | | | | | | this morning dose of magnesium, | | | | | | | notify provider Protocol NOT | | | | | | | recommended if Scr > 1.8, | | | | | | | dialysis patients or CrCl < 50 | | | | | | | mL/min Magnesium = 1-1.9 mg/dL | | | | | | | Give magnesium sulfate 2 g IV x1 | | | | | | | * Check magnesium 2 hours | | | | | | | after infusion is completed If | | | | | | | magnesium still < 1.9 mg/dL, | | | | | | | contact provider for further | | | | | | | instruction. Give PO or IV but | | | | | | | never both. Maximum recommended | | | | | | | infusion rate = 1 gram/hour., | | | | | | + +---------+ +-----+ +---+ +---------+ +-----+ +---+ | New Bag | 09/16/19 | 2 g | 25 mL/hr | | | | 20 12:20 | | | | | | AM PST | | | | +---------+ +-----+ +---+ | New Bag | 09/15/19 | 2 g | 25 mL/hr | | | | 20 5:32 | | | | | | AM PST | | | | +---------+ +-----+ +---+ + +---+ | | | + +---+ | magnesium sulfate 4 g/100 mL | | | IVPB 4 g 4 g, Intravenous, | | | Administer over 240 Minutes, | | | DAILY PRN, Per protocol, Starting | | | 09/14/19 at 1119, NON-ICU | | | Protocol Replace magnesium once | | | per day based on morning | | | magnesium level. Use scale below | | | to determine dose. If further | | | replacement is required after | | | this morning dose of magnesium, | | | notify provider Protocol NOT | | | recommended if Scr > 1.8, | | | dialysis patients or CrCl < 50 | | | mL/min Magnesium < 1 mg/dL | | | Give magnesium sulfate 4 g IV x1 | | | * Check magnesium 2 hours | | | after infusion is completed If | | | magnesium still < 1.9 mg/dL, | | | contact provider for further | | | instruction. Give PO or IV but | | | never both. Maximum recommended | | | infusion rate = 1 gram/hour., | | + +---+ | | | + +---+ + +-------+ +-------+---+---+ | metoprolol tartrate (LOPRESSOR) | Given | 09/12/19 | 25 mg | | | | tablet 25 mg 25 mg, Oral, 2 | | 20 8:13 | | | | | TIMES DAILY, First dose on Fri | | AM PST | | | | | 09/11/19 at 2100, Hold for SBP | | | | | | | <90, HR < 55, Post-op/Phase II | | | | | | + +-------+ +-------+---+---+ +-------+ +-------+---+---+ | Given | 09/11/19 | 25 mg | | | | | 20 8:51 | | | | | | PM PST | | | | +-------+ +-------+---+---+ +---+---+ | | | +---+---+ + +-------+ +-------+---+---+ | metoprolol tartrate (LOPRESSOR) | Given | 09/20/19 | 25 mg | | | | tablet 25 mg 25 mg, Oral, 2 | | 20 8:23 | | | | | TIMES DAILY, First dose on Sat | | AM PST | | | | | 09/19/19 at 1745 | | | | | | + +-------+ +-------+---+---+ +-------+ +-------+---+---+ | Given | 09/19/19 | 25 mg | | | | | 20 5:31 | | | | | | PM PST | | | | +-------+ +-------+---+---+ +---+---+ | | | +---+---+ + +-------+ +-------+---+---+ | midodrine (PROAMATINE) tablet | Given | 09/15/19 | 10 mg | | | | 10 mg 10 mg, Oral, 3 TIMES DAILY | | 20 11:12 | | | | | EARLY, First dose on Sat09/14/19 | | AM PST | | | | | at 1600 | | | | | | + +-------+ +-------+---+---+ +-------+ +-------+---+---+ | Given | 09/15/19 | 10 mg | | | | | 20 6:17 | | | | | | AM PST | | | | +-------+ +-------+---+---+ | Given | 09/14/19 | 10 mg | | | | | 20 4:32 | | | | | | PM PST | | | | +-------+ +-------+---+---+ +---+---+ | | | +---+---+ + +-------+ +-------+---+---+ | midodrine (PROAMATINE) tablet | Given | 09/20/19 | 15 mg | | | | 15 mg 15 mg, Oral, 3 TIMES DAILY | | 20 11:20 | | | | | EARLY, First dose (after last | | AM PST | | | | | modification) on Sat09/15/19 at | | | | | | | 1200 | | | | | | + +-------+ +-------+---+---+ +-------+ +-------+---+---+ | Given | 09/20/19 | 15 mg | | | | | 20 6:45 | | | | | | AM PST | | | | +-------+ +-------+---+---+ | Given | 09/19/19 | 15 mg | | | | | 20 4:05 | | | | | | PM PST | | | | +-------+ +-------+---+---+ +---+---+ | | | +---+---+ + +-------+ +------+---+---+ | oxyCODONE (ROXICODONE) tablet | Given | 09/15/19 | 5 mg | | | | 2.5-10 mg 2.5-10 mg, Oral, EVERY | | 20 11:13 | | | | | 3 HOURS PRN, Pain, Starting Fri | | AM PST | | | | | 09/11/19 at 1424, First dose must | | | | | | | be the lowest dose, can titrate | | | | | | | to effective dose by repeat of | | | | | | | lowest dose every 60 minutes prn | | | | | | | pain, may not exceed maximum dose | | | | | | | ordered per interval. Use Pasero | | | | | | | Sedation Scale., Post-op/Phase | | | | | | | II | | | | | | + +-------+ +------+---+---+ +-------+ +------+---+---+ | Given | 09/14/19 | 5 mg | | | | | 20 8:55 | | | | | | PM PST | | | | +-------+ +------+---+---+ | Given | 09/14/19 | 5 mg | | | | | 20 10:34 | | | | | | AM PST | | | | +-------+ +------+---+---+ +---+---+ | | | +---+---+ + + + +---------+ +---+ | phenylephrine (KAILEE-SYNEPHRINE, | Rate/Dos | 09/15/19 | 50 | 30 mL/hr | | | VAZCULEP) 100 mcg/mL in sodium | e Change | 20 8:55 | mcg/min | | | | chloride 0.9% 500 mL infusion | | AM PST | | | | | 0-360 mcg/min (0-216 mL/hr), at | | | | | | | 0-216 mL/hr, Intravenous, | | | | | | | TITRATED, Starting 09/11/19 at | | | | | | | 0845, Titration Instruction: See | | | | | | | below, Goal: SBP greater than | | | | | | | 90, Initial dose: 30 mcg/min, | | | | | | | Increase rate by: 20 mcg/min | | | | | | | every 5 minutes., Decrease rate | | | | | | | by: 20 mcg/min every 5 minutes., | | | | | | | *: Titrate drug per order as | | | | | | | tolerated. Titration may vary | | | | | | | based on the patient | | | | | | | | | | | | | | s critical condition. | | | | | | + + + +---------+ +---+ + + +---------+ +---+ | Rate/Dose Change | 09/15/19 | 40 | 24 mL/hr | | | | 20 8:08 | mcg/min | | | | | AM PST | | | | + + +---------+ +---+ | Rate/Dose Change | 09/15/19 | 20 | 12 mL/hr | | | | 20 6:53 | mcg/min | | | | | AM PST | | | | + + +---------+ +---+ +---+---+ | | | +---+---+ + + + +---------+---------+---+ | phenylephrine (KAILEE-SYNEPHRINE, | Restarte | 09/17/19 | 10 | 6 mL/hr | | | VAZCULEP) 100 mcg/mL in sodium | d | 20 10:12 | mcg/min | | | | chloride 0.9% 500 mL infusion | | AM PST | | | | | 0-360 mcg/min (0-216 mL/hr), at | | | | | | | 0-216 mL/hr, Intravenous, | | | | | | | TITRATED, Starting 09/15/19 at | | | | | | | 1145, Titration Instruction: See | | | | | | | below, Goal: Other, Other goal: | | | | | | | MAP goal > 60, Initial dose: 10 | | | | | | | mcg/min, Increase rate by: 10 | | | | | | | mcg/min every 5 minutes., | | | | | | | Decrease rate by: 10 mcg/min | | | | | | | every 5 minutes., *: Titrate drug | | | | | | | per order as tolerated. | | | | | | | Titration may vary based on the | | | | | | | patient | | | | | | | | | | | | | | s critical condition. | | | | | | + + + +---------+---------+---+ + + +---------+ +---+ | Rate/Dose Change | 09/17/19 | 10 | 6 mL/hr | | | | 20 12:18 | mcg/min | | | | | AM PST | | | | + + +---------+ +---+ | Rate/Dose Change | 09/17/19 | 20 | 12 mL/hr | | | | 20 12:01 | mcg/min | | | | | AM PST | | | | + + +---------+ +---+ +---+---+ | | | +---+---+ + +-------+ +------+---+---+ | polyethylene glycol (MIRALAX) | Given | 09/16/19 | 17 g | | | | powder 17 g 17 g, Oral, DAILY, | | 20 8:59 | | | | | First dose on Sat09/15/19 at | | AM PST | | | | | 1145, Mix with 8 oz. water., | | | | | | + +-------+ +------+---+---+ +-------+ +------+---+---+ | Given | 09/15/19 | 17 g | | | | | 20 12:30 | | | | | | PM PST | | | | +-------+ +------+---+---+ +---+---+ | | | +---+---+ + +-------+ +--------+---+---+ | potassium chloride (KLOR-CON) | Given | 09/20/19 | 20 mEq | | | | ER tablet 20 mEq 20 mEq, Oral, | | 20 8:23 | | | | | DAILY, First dose on Sat09/11/19 | | AM PST | | | | | at 1515, Tablet may be cut where | | | | | | | scored but do not crush. May take | | | | | | | with food to decrease GI upset., | | | | | | | | | | | | | + +-------+ +--------+---+---+ +-------+ +--------+---+---+ | Given | 09/19/19 | 20 mEq | | | | | 20 8:02 | | | | | | AM PST | | | | +-------+ +--------+---+---+ | Given | 09/19/19 | 20 mEq | | | | | 20 6:32 | | | | | | AM PST | | | | +-------+ +--------+---+---+ +---+---+ | | | +---+---+ + +-------+ +--------+---+---+ | potassium chloride (KLOR-CON) | Given | 09/19/19 | 20 mEq | | | | ER tablet 20-40 mEq 20-40 mEq, | | 20 4:04 | | | | | Oral, DAILY PRN, Per protocol, | | PM PST | | | | | Starting 09/14/19 at 1119, | | | | | | | NON-ICU Protocol Replace | | | | | | | potassium once per day based on | | | | | | | morning potassium level. Use | | | | | | | scale below to determine dose. If | | | | | | | further replacement is required | | | | | | | after this morning dose of | | | | | | | potassium, notify provider | | | | | | | Protocol NOT recommended if Scr > | | | | | | | 1.8, dialysis patients or CrCl < | | | | | | | 50 mL/min [K+] =3.6 - 4 mEql/L | | | | | | | Give 20 mEq KCl PO x 1 dose | | | | | | | [K+] 3.0 - 3.5 mEql/L Give 40 | | | | | | | mEq KCl PO x 1 dose [K+] < 3.0 | | | | | | | mEq/L Notify provider * | | | | | | | Recheck K+ 4 hours after | | | | | | | replacement is done. Give either | | | | | | | tablet, liquid, or IV but never | | | | | | | more than one form. If repeat K | | | | | | | is still < 3.5, contact provider | | | | | | | for further instruction. May take | | | | | | | with food to decrease GI upset., | | | | | | | | | | | | | + +-------+ +--------+---+---+ +-------+ +--------+---+---+ | Given | 09/18/19 | 20 mEq | | | | | 20 6:35 | | | | | | AM PST | | | | +-------+ +--------+---+---+ | Given | 09/17/19 | 20 mEq | | | | | 20 6:39 | | | | | | AM PST | | | | +-------+ +--------+---+---+ + +---+ | | | + +---+ | potassium chloride (KLOR-CON) | | | packet 20-40 mEq 20-40 mEq, Per | | | G Tube, DAILY PRN, Per Protocol, | | | Starting 09/14/19 at 1119, | | | NON-ICU Protocol Replace | | | potassium once per day based on | | | morning potassium level. Use | | | scale below to determine dose. If | | | further replacement is required | | | after this morning dose of | | | potassium, notify provider | | | Protocol NOT recommended if Scr > | | | 1.8, dialysis patients or CrCl < | | | 50 mL/min [K+] =3.6 - 4 mEql/L | | | Give 20 mEq KCl PO x 1 dose | | | [K+] 3.0 - 3.5 mEql/L Give 40 | | | mEq KCl PO x 1 dose [K+] < 3.0 | | | mEq/L Notify provider * | | | Recheck K+ 4 hours after | | | replacement is done. Give either | | | tablet, liquid, or IV but never | | | more than one form. If repeat K | | | is still < 3.5, contact provider | | | for further instruction., | | + +---+ | | | + +---+ | potassium chloride 20 mEq in | | | sodium chloride 0.9% 250 mL IVPB | | | 20 mEq, Intravenous, Administer | | | over 2 Hours, DAILY PRN, Per | | | protocol, Starting Sat09/14/19 at | | | 1119, NON-ICU Protocol Replace | | | potassium once per day based on | | | morning potassium level. Use | | | scale below to determine dose. If | | | further replacement is required | | | after this morning dose of | | | potassium, notify provider | | | Protocol NOT recommended if Scr > | | | 1.8, dialysis patients or CrCl < | | | 50 mL/min [K+] =3.6 - 4 mEql/L | | | Give 20 mEq KCl IV X 1 dose | | | * Recheck K+ 2 hours after | | | replacement is done. Give either | | | tablet, liquid, or IV but never | | | more than one form. If repeat K | | | is still < 3.5, contact provider | | | for further instruction., | | + +---+ | | | + +---+ | potassium chloride 40 mEq in | | | sodium chloride 0.9% 500 mL IVPB | | | 40 mEq, Intravenous, Administer | | | over 4 Hours, DAILY PRN, Per | | | protocol, Starting 09/14/19 at | | | 1119, NON-ICU Protocol Replace | | | potassium once per day based on | | | morning potassium level. Use | | | scale below to determine dose. If | | | further replacement is required | | | after this morning dose of | | | potassium, notify provider | | | Protocol NOT recommended if Scr > | | | 1.8, dialysis patients or CrCl < | | | 50 mL/min [K+] 3.0 - 3.5 mEql/L | | | Give 40 mEq KCl IV X 1 dose | | | * Recheck K+ 2 hours after | | | replacement is done. Give either | | | tablet, liquid, or IV but never | | | more than one form. If repeat K | | | is still < 3.5, contact provider | | | for further instruction., | | + +---+ | | | + +---+ + +-------+ +--------+---+---+ | senna (SENOKOT) tablet 8.6 mg | Given | 09/16/19 | 8.6 mg | | | | 8.6 mg, Oral, 2 TIMES DAILY PRN, | | 20 8:05 | | | | | Constipation, Starting Fri | | PM PST | | | | | 2/21/20 at 1424, If docusate | | | | | | | ineffective or not ordered, | | | | | | + +-------+ +--------+---+---+ +-------+ +--------+---+---+ | Given | 09/15/19 | 8.6 mg | | | | | 20 8:13 | | | | | | PM PST | | | | +-------+ +--------+---+---+ | Given | 09/14/19 | 8.6 mg | | | | | 20 10:35 | | | | | | AM PST | | | | +-------+ +--------+---+---+ + +---+ | | | + +---+ | sodium phosphate 24 mmol in | | | sodium chloride 0.9% 250 mL IVPB | | | 24 mmol, Intravenous, Administer | | | over 4 Hours, PRN, Per protocol, | | | Starting 09/16/19 at 0127, | | | ICU Use Only Protocol NOT | | | recommended if Scr > 1.8, | | | dialysis patients or CrCl < 50 | | | mL/min Patient Weight = 71-80 | | | Kg Protocol. [PO4] = 1.6-2.4 | | | mg/dL Give sodium phosphate 24 | | | mmol. *Obtain serum phosphorus | | | level 4 hours after replacement | | | is done. If serum phosphorus | | | still < 2.5 mg/dL, repeat | | | replacement as indicated per | | | protocol, | | + +---+ | | | + +---+ | sodium phosphate 48 mmol in | | | sodium chloride 0.9% 250 mL IVPB | | | 48 mmol, Intravenous, Administer | | | over 7 Hours, PRN, Per protocol, | | | Starting 09/16/19 at 0127, | | | ICU Use Only Protocol NOT | | | recommended if Scr > 1.8, | | | dialysis patients or CrCl < 50 | | | mL/min Patient Weight = 71-80 | | | Kg Protocol. [PO4] = 1.5 mg/dL | | | and less. Give sodium phosphate | | | 48 mmol. *Obtain serum | | | phosphorus level 4 hours after | | | replacement is done. If serum | | | phosphorus still < 2.5 mg/dL, | | | repeat replacement as indicated | | | per protocol For doses greater | | | than or equal to 33 mMol, | | | Central line administration | | | preferred. If no central access, | | | administer peripherally into | | | large vein. Do not give in | | | hand/wrist or foot/ankle vein., | | + +---+ | | | + +---+ + +-------+ +--------+---+---+ | tamsulosin (FLOMAX) capsule 0.8 | Given | 09/20/19 | 0.8 mg | | | | mg 0.8 mg, Oral, DAILY AFTER | | 20 8:58 | | | | | BREAKFAST, First dose on Fri | | AM PST | | | | | 09/11/19 at 1515, Do not crush or | | | | | | | chew capsule. If unable to | | | | | | | swallow, may open capsule and | | | | | | | sprinkle over acidic soft food | | | | | | | (applesauce, yogurt) or in a | | | | | | | small quantity of acidic fruit | | | | | | | juice (orange, grape). Administer | | | | | | | immediately (do not allow | | | | | | | granules to dissolve). Do not | | | | | | | administer via tube routes., | | | | | | + +-------+ +--------+---+---+ +-------+ +--------+---+---+ | Given | 09/19/19 | 0.8 mg | | | | | 20 8:02 | | | | | | AM PST | | | | +-------+ +--------+---+---+ | Given | 09/18/19 | 0.8 mg | | | | | 20 9:04 | | | | | | AM PST | | | | +-------+ +--------+---+---+ +---+---+ | | | +---+---+ + +-------+ +-------+---+---+ | tocopherol (VITAMIN E) capsule | Given | 09/20/19 | 400 | | | | 400 Units 400 Units, Oral, | | 20 8:23 | Units | | | | DAILY, First dose on 09/12/19 | | AM PST | | | | | at 0900 | | | | | | + +-------+ +-------+---+---+ +-------+ +-------+---+---+ | Given | 09/19/19 | 400 | | | | | 20 8:02 | Units | | | | | AM PST | | | | +-------+ +-------+---+---+ | Given | 09/18/19 | 400 | | | | | 20 9:05 | Units | | | | | AM PST | | | | +-------+ +-------+---+---+ +---+---+ | | | +---+---+ + +-------+ +------+---+---+ | warfarin (COUMADIN) tablet 2 mg | Given | 09/18/19 | 2 mg | | | | 2 mg, Oral, Daily - Warfarin, | | 20 5:32 | | | | | First dose on Sat09/18/19 at | | PM PST | | | | | 1800, Reproductive Risk: Use | | | | | | | appropriate handling precautions. | | | | | | | Drug education required., | | | | | | + +-------+ +------+---+---+ +---+---+ | | | +---+---+ + +-------+ +--------+---+---+ | warfarin (COUMADIN) tablet 2.5 | Given | 09/19/19 | 2.5 mg | | | | mg 2.5 mg, Oral, Daily - | | 20 4:05 | | | | | Warfarin, First dose (after last | | PM PST | | | | | modification) on Sat09/19/19 at | | | | | | | 1800, Reproductive Risk: Use | | | | | | | appropriate handling precautions. | | | | | | | Drug education required., | | | | | | + +-------+ +--------+---+---+ +---+---+ | | | +---+---+ + +-------+ +------+---+---+ | warfarin (COUMADIN) tablet 3 mg | Given | 09/14/19 | 3 mg | | | | 3 mg, Oral, USER SPECIFIED | | 20 8:38 | | | | | (Once per day on Sat), First | | PM PST | | | | | dose on Sat09/11/19 at 1800, | | | | | | | Reproductive Risk: Use | | | | | | | appropriate handling precautions. | | | | | | | Drug education required., | | | | | | + +-------+ +------+---+---+ + +---+ | | | + +---+ | warfarin (COUMADIN) tablet 3 mg | | | 3 mg, Oral, Daily - Warfarin, | | | First dose (after last | | | modification) on 09/20/19 at | | | 1800, Reproductive Risk: Use | | | appropriate handling precautions. | | | Drug education required., | | + +---+ | | | + +---+ + +-------+ +------+---+---+ | warfarin (COUMADIN) tablet 5 mg | Given | 09/17/19 | 5 mg | | | | 5 mg, Oral, USER SPECIFIED | | 20 5:28 | | | | | (Once per day on Sat | | PM PST | | | | | Sat), First dose on 09/12/19 | | | | | | | at 1800, Reproductive Risk: Use | | | | | | | appropriate handling precautions. | | | | | | | Drug education required., | | | | | | + +-------+ +------+---+---+ +-------+ +------+---+---+ | Given | 09/16/19 | 5 mg | | | | | 20 6:23 | | | | | | PM PST | | | | +-------+ +------+---+---+ | Given | 09/15/19 | 5 mg | | | | | 20 6:25 | | | | | | PM PST | | | | +-------+ +------+---+---+ + +---+ | | | + +---+ | warfarin per pharmacy PHARMACY | | | CONSULT, Starting 09/11/19 at | | | 1731, What is the goal INR range | | | for this patient? 2-3 | | + +---+ | | | + +---+ documented in this encounter
--- OUTSIDE RECORDS SUMMARY | ~2020-02-23 | XMS | Encounter Summary ---
Demographics + + + | Address | [address] | | | [place] [address] | + + + | Home Phone | | + + + | Preferred Language | Unknown | + + + | Marital Status | | + + + | Christian Affiliation | Unknown | + + + | Race | Unknown | + + + | Ethnic Group | Unknown | + + + Author + + + | Author | [facility] | | | and [place] | + + + | Organization | [facility] | | | [...] [place] | | | | | [id number] | | + + + + + Care Team Providers + +------+ + | Care General Internist And Physician Leader Name | Role | Phone | + +------+ + | Carlos Alberto Galeas MD | PCP | | + +------+ + Encounter Details +--------+ + + + + | Date | Type | Department | Care Team | Description | +--------+ + + + + | 02/03/ | Hospital | [facility] | Carlos Alberto Galeas | PVD (peripheral | | 2018 | Encounter | [facility] | MD Dylan [address] | vascular disease) | | | | [address] | [place] | ([facility]) | | | | [place] | [place] [address] | | | | | [address] | [phone] | | | | | [phone] | | | +--------+ + + + + Social History + +-------+ +--------+------+ | Tobacco Use | Types | Packs/Day | Years | Date | | | | | Used | | + +-------+ +--------+------+ | Never Smoker | | | | | + +-------+ +--------+------+ + +---+---+---+ | Smokeless Tobacco: | | | | | Never Used | | | | + +---+---+---+ + + +---------+ + | Alcohol Use | Drinks/Week | oz/Week | Comments | + + +---------+ + | Yes | 1 Cans of beer | 1.0 | | + + +---------+ + + + [...] +---------+ + + | amiodarone | Take 200 mg by mouth | | 0 | | | | (PACERONE) 200 mg | Daily. | | | | 8 | | tablet | | | | [...] + + + +---------+ + + | methocarbamol | Take 2 tablets by | 100 | 1 | 01/18/20 | | | (ROBAXIN) 500 mg | mouth every 6 hours | tablet | | 17 | 8 | | tablet | as needed (muscle | | | | | | | spasm). | | | | | + + + +---------+ + + | metoprolol | Take 0.5 tablets by | 30 | 1 | 01/18/20 | | | tartrate (LOPRESSOR) | mouth Daily. Hold if | tablet | | 17 | 8 | | 25 mg tablet | systolic (top | | | | | | | number) blood | | | | | | | pressure less than | | | | | | | 90. | | | | | + + + +---------+ + + | midodrine | Take 1 tablet by | 90 | 1 | 01/18/20 | | | (PROAMATINE) 10 MG | mouth 3 times daily. | tablet | | 17 | 8 | | tabletIndications: | | | | | | | Orthostasis | | | | | | + + + +---------+ + + | oxyCODONE | Take 1-2 tablets by | 40 | 0 | 01/18/20 | | | (ROXICODONE) 5 mg | mouth every 4 hours | tablet | | 17 | 8 | | tablet | as needed for Pain. | | | | | + + + +---------+ + + | tocopherol | Take 400 Units by | | 0 | | | | (VITAMIN E) 400 | mouth Daily. | | | | 9 | | units capsule | | | | | | + + + +---------+ + + | warfarin | Take 1 tablet by | 30 | 0 | 01/18/20 | | | (COUMADIN) 2.5 mg | mouth daily (after | tablet | | 17 | 8 | | tablet | dinner). | | | | | + + + +---------+ + + documented as of this encounter Plan of Treatment +--------+---------+ + + + | Date | Type | Specialty | Care Team | Description | +--------+---------+ + + + | 08/04/ | Office | Cardiology | KeatonrezaAnusha ledesma | | | 2020 | Visit | | [address] | | | | | | [address] | | | | | | [place] [address] | | | | | | [phone] | | | | | | | | +--------+---------+ + + + documented as of this encounter Procedures + +--------+ + + + | Procedure Name | Priori | Date/Time | Associated Diagnosis | Comments | | | ty | | | | + +--------+ + + + | VAS LOWER EXTREMITY | Routin | 02/03/2018 | PVD (peripheral | Results for this | | ARTERIES RIGHT | e | 11:30 AM | vascular disease) | procedure are in the | | | | PDT | ([facility]) | results section. | + +--------+ + + + documented in this encounter Results VAS Lower Extremity Arteries Right (02/03/2018 11:30 AM PDT) + + | Specimen | + + | | + + + + -+ | Narrative | Performed At | + + -+ | VAS LOWER | [facility] | | EXTREMITY ARTERIES RIGHT 02/03/2018 11:00 AM HISTORY: PVD. COMPARISON: | | | 12/06/2016. PROTOCOL: Chester scale and Doppler images of the lower | | | extremity arteries. FINDINGS:Peak systolic velocity (cm/s), End | | | diastolic velocity (cm/s), Velocity ratiodistal/proximal, Phasicity | | | Right:Mid SFA: 122, 0, triphasicProximal anastomosis of bypass: 115, | | | 0, 0.9, triphasicProximal bypass: 146, 0, 1.3, triphasicMid bypass: | | | 92, 0, 0.6, triphasicThe bypass demonstrates a bifurcation at the | | | level of the mid to distal thigh.The branch labeled bifurcation 2 is | | | not well seen past the posterior knee.Bifurcation 1 can be seen | | | connecting to a vessel in the posterior knee, possiblythe popliteal | | | artery. The patient has history of bypass failure and anothersurgery | | | to correct the failure. Bifurcation 2 could represent the | | | originalbypass and bifurcation 1 could represent the subsequent | | | repair.Bifurcation 2 proximal: 42, 0, 0.5, triphasicBifurcation 1 | | | proximal: 71, 0, 0.8, triphasicBifurcation 1 distal bypass: 32, 0, | | | 0.5, triphasicBifurcation 1 distal anastomosis: 33, 0, 1.0, triphasic | | | IMPRESSION -Gross patency of right lower extremity arteries and | | | bypass. Mildly elevatedvelocities are seen of the proximal bypass. | | | Dictated and Signed by: Nikko Morejon MD Electronically signed: | | | 02/03/2018 3:52 PM | | |surgery to correct the failure. Bifurcation 2 could represent the original | | |bypass and bifurcation 1 could represent the subsequent repair. | | |Bifurcation 2 proximal: 42, 0, 0.5, triphasic | | |Bifurcation 1 proximal: 71, 0, 0.8, triphasic | | |Bifurcation 1 distal bypass: 32, 0, 0.5, triphasic | | |Bifurcation 1 distal anastomosis: 33, 0, 1.0, triphasic | | | | | |IMPRESSION - | | |Gross patency of right lower extremity arteries and bypass. Mildly elevated | | |velocities are seen of the proximal bypass. | | | | | |Dictated and Signed by: Nikko Morejon MD | | | Electronically signed: 02/03/2018 3:52 PM | | | | | + + -+ + + | Procedure Note | + + | Zac Pierce Results In - 02/03/2018 3:55 PM PDT VAS LOWER EXTREMITY ARTERIES RIGHT | | 02/03/2018 11:00 AM HISTORY: PVD.COMPARISON: 12/06/2016.PROTOCOL: Chester scale and Doppler | | images of the lower extremity arteries.FINDINGS:Peak systolic velocity (cm/s), End | | diastolic velocity (cm/s), Velocity ratiodistal/proximal, PhasicityRight:Mid SFA: 122, | | 0, triphasicProximal anastomosis of bypass: 115, 0, 0.9, triphasicProximal bypass: 146, | | 0, 1.3, triphasicMid bypass: 92, 0, 0.6, triphasicThe bypass demonstrates a bifurcation | | at the level of the mid to distal thigh.The branch labeled bifurcation 2 is not well | | seen past the posterior knee.Bifurcation 1 can be seen connecting to a vessel in the | | posterior knee, possiblythe popliteal artery. The patient has history of bypass failure | | and anothersurgery to correct the failure. Bifurcation 2 could represent the | | originalbypass and bifurcation 1 could represent the subsequent repair.Bifurcation 2 | | proximal: 42, 0, 0.5, triphasicBifurcation 1 proximal: 71, 0, 0.8, triphasicBifurcation | | 1 distal bypass: 32, 0, 0.5, triphasicBifurcation 1 distal anastomosis: 33, 0, 1.0, | | triphasicIMPRESSION -Gross patency of right lower extremity arteries and bypass. Mildly | | elevatedvelocities are seen of the proximal bypass.Dictated and Signed by: Nikko Mroejon | | Electronically signed: 02/03/2018 3:52 PM | |Mid bypass: 92, 0, 0.6, triphasic | |The bypass demonstrates a bifurcation at the level of the mid to distal thigh. | |The branch labeled bifurcation 2 is not well seen past the posterior knee. | |Bifurcation 1 can be seen connecting to a vessel in the posterior knee, possibly | |the popliteal artery. The patient has history of bypass failure and another | |surgery to correct the failure. Bifurcation 2 could represent the original | |bypass and bifurcation 1 could represent the subsequent repair. | |Bifurcation 2 proximal: 42, 0, 0.5, triphasic | |Bifurcation 1 proximal: 71, 0, 0.8, triphasic | |Bifurcation 1 distal bypass: 32, 0, 0.5, triphasic | |Bifurcation 1 distal anastomosis: 33, 0, 1.0, triphasic | | | |IMPRESSION - | |Gross patency of right lower extremity arteries and bypass. Mildly elevated | |velocities are seen of the proximal bypass. | | | |Dictated and Signed by: Nikko Morejon MD | | Electronically signed: 02/03/2018 3:52 PM | + + + +---------+ + + | Performing | Address | City/State/Zipcode | Phone Number | | Organization | | | | + +---------+ + + | [facility] | | | | + +---------+ + + documented in this encounter Visit Diagnoses + + | Diagnosis | + + | PVD (peripheral vascular disease) (HCC) Peripheral vascular disease, unspecified | + + documented in this encounter"
--- OUTSIDE RECORDS SUMMARY | ~2020-02-23 | XMS | Encounter Summary ---
Demographics + + + | Address | [address] | | | [place] [address] | + + + | Home Phone | | + + + | Preferred Language | Unknown | + + + | Marital Status | | + + + | Rastafari Affiliation | Unknown | + + + | Race | Unknown | + + + | Ethnic Group | Unknown | + + + Author + + + | Author | [facility] | | | and [place] | + + + | Organization | [facility] | | | [...] [place] | | | | | [address] | | + + + + + Care Team Providers + +------+ + | Care Supervisor Home Energy Consultant Name | Role | Phone | + +------+ + | Carlos Alberto Galeas MD | PCP | | + +------+ + Reason for Visit Auth/Cert +--------+--------+ + [...] | +--------+ + + + + | 09/10/ | Preadmit | [facility] | Osmin Garber MD | | | 2019 | Visit | CENTER PREADMIT | [address] | | | | | CLINIC [address] | [address] [facility] | | | | | [address] [place], [place] | [place] [address] | | | | | [address] | [phone] | | | | | [phone] | | | +--------+ + + + [...] + + + | Blood Pressure | - | - | | + + + + + | Pulse | 64 | 09/10/2019 3:42 PM | | | | | PST | | + + + + + | Temperature | - | - | | + + + + + | Respiratory Rate | - | - | | + + + + + | Oxygen Saturation | 97% | 09/10/2019 3:42 PM | | | | | PST | | + + + + + | Inhaled Oxygen | - | - | | | Concentration | | | | + + + + + | Weight | 72.6 kg (160 lb 0.9 | 09/10/2019 3:42 PM | | | | oz) | PST | | + + + + + | Height | 175.3 cm (5' 9") | 09/10/2019 3:42 PM | | | | | PST | | + + + + + | Body Mass Index | 23.64 | 09/10/2019 3:42 PM | | | | | PST | [...] + + documented as of this encounter Patient Instructions Instructions Jeannette Padilla RN - 09/10/2019Formatting of this note might be different fro m the original. Outpatient Medications Marked as Taking for the 09/10/19 encounter (Preadmit Visit) with [facility] Medication Sig Instructions Ascorbic Acid (VITAMIN C) 500 MG CAPS Take 1 capsule by mouth Daily. DO NOT TAKE day of procedure calcium-vitamin D (CALCIUM 600+D) 600 mg-200 units per tablet Take 1 tablet by mouth 2 times daily. DO NOT TAKE day of procedure digoxin (LANOXIN) 125 mcg tablet Take 125 mcg by mouth. TAKE day of procedure furosemide (LASIX) 20 mg tablet Take 20 mg by mouth. TAKE day of procedure KLOR-CON M20 20 MEQ ER tablet take after surgery metoprolol tartrate (LOPRESSOR) 25 mg tablet Take 25 mg by mouth 2 times daily. TAKE da y of procedure Multiple Vitamins-Minerals (CENTRUM SILVER) TABS Take 1 tablet by mouth Daily. DO NOT T THAD day of procedure tamsulosin (FLOMAX) 0.4 mg CAPS Take 2 capsules by mouth daily (after breakfast). (Alida ent taking differently: Take 0.4 mg by mouth daily (after breakfast).) DO NOT TAKE day of pr ocedure tocopherol (VITAMIN E) 400 units capsule vitamin E (dl, acetate) 400 unit capsule Take by oral route. DO NOT TAKE day of procedure AttachmentsThe following attachments cannot be sent through Care Everywhere.Bypass Surgery, Peripheral Artery (Serbian)documented in this encounter Miscellaneous Notes Preadmit Clinic Note - Jeannette Padilla RN - 09/10/2019 3:30 PM PSTThe patient denies ches t pain and SOB. He is unable to walk much due to pain in his legs. He is here for femoral ar yasmin bypass /angiogram to be done hybrid case in pathology laboratory aide. He last saw Dr. Selby on 06/10 at which time the note states that the patient is stable from cardiac standpoint. Dr. Selby referred him for the current procedure. documented in this encounter Plan of Treatment +--------+---------+ + + + | Date | Type | Specialty | Care Team | Description | +--------+---------+ + + + | 08/04/ | Office | Cardiology | Anusha Lomax | | | 2020 | Visit | | [address] | | | | | | [address] | | | | | | [place] [address] | | | | | | [phone] | | | | | | | | +--------+---------+ + + + documented as of this encounter Procedures + +--------+ + + + | Procedure Name | Priori | Date/Time | Associated Diagnosis | Comments | | | ty | | | | + +--------+ + + + | MRSA NAAT | Routin | 09/10/2019 | | Results for this | | | e | 3:53 PM | | procedure are in the | | | | PST | | results section. | + +--------+ + + + | CBC WITH | STAT | 09/10/2019 | | Results for this | | DIFFERENTIAL | | 3:53 PM | | procedure are in the | | | | PST | | results section. | + +--------+ + + + | TYPE AND SCREEN | ROWENA | 09/10/2019 | | Results for this | | | | 3:53 PM | | procedure are in the | | | | PST | | results section. | + +--------+ + + + | BASIC METABOLIC | STAT | 09/10/2019 | | Results for this | | PANEL | | 3:53 PM | | procedure are in the | | | | PST | | results section. | + +--------+ + + + documented in this encounter Results CBC with Differential (09/10/2019 3:53 PM PST) + + + + + + | Component | Value | Ref Range | Performed | Pathologist | | | | | At | Signature | + + + + + + | WBC | 6.45 | 3.80 - 11.00 | [facility] | | | | | K/uL | LABORATORY | | + + + + + + | Red Blood | 4.26 | 4.20 - 5.70 | [facility] | | | Cells | | M/uL | LABORATORY | | + + + + + + | Hemoglobin | 12.7 (L) | 13.2 - 17.0 | [facility] | | | | | g/dL | LABORATORY | | + + + + + + | Hematocrit | 39.4 | 39.0 - 50.0 % | [facility] | | | | | | LABORATORY | | + + + + + + | MCV | 92.5 | 80.0 - 100.0 fl | [facility] | | | | | | LABORATORY | | + + + + + + | MCH | 29.8 | 27.0 - 34.0 pg | [facility] | | | | | | LABORATORY | | + + + + + + | MCHC | 32.2 | 32.0 - 35.5 | [facility] | | | | | g/dL | LABORATORY | | + + + + + + | RDW-SD | 52.0 | 37 - 53 fl | [facility] | | | | | | LABORATORY | | + + + + + + | Platelet | 191 | 150 - 400 K/uL | [facility] [...] + + + + | % | 67.90 | % | [facility] | | | Neutrophils | | | LABORATORY | | + + + + + + | IMMATURE | 0.20 | % | [facility] | | | GRANULOCYTE | | | LABORATORY | | + + + + + + | % | 10.40 | % | [facility] | | | Lymphocytes | | | LABORATORY | | + + + + + + | Monocyte % | 9.80 | % | [facility] | | | | | | LABORATORY | | + + + + + + | Eosinophils | 10.90 | % | [facility] | | | % | | | LABORATORY | | + + + + + + | Basophils % | 0.80 | % | [facility] | | | | | | LABORATORY | | + + + + + + | Neutrophils | 4.39 | 1.90 - 7.40 | [facility] | | | , Absolute | | K/uL | LABORATORY | | + + + + + + | IMMATURE | 0.01Comment: NOTE NEW | 0.00 - 0.07 | [facility] | | | GRANS AB | REFERENCE RANGE | K/uL | LABORATORY | | + + + + + + | Absolute | 0.67 (L) | 1.00 - 3.90 | [facility] | | | Lymphocytes | | K/uL | LABORATORY | | + + + + + + | Absolute | 0.63 | 0.00 - 0.80 | [facility] | | | Monocytes | | K/uL | LABORATORY | | + + + + + + | Eosinophils | 0.70 (H) | 0.00 - 0.50 | [facility] | | | , Absolute | | K/uL | LABORATORY | | + + + + + + | Basophils, | 0.05Comment: Testing | 0.00 - 0.10 | [facility] | | | Absolute | performed at [facility] | [address] | LABORATORY | | | | [address];[place], [place] | | | | | | [address] | | | | + + + + + + + + | Specimen | + + | Blood | + + + + + + + | Performing | Address | City/State/Zipcode | Phone Number | | Organization | | | | + + + + + | [facility] | [address] | [place] [address] | [phone] | + + + + + Type and Screen (09/10/2019 3:53 PM PST) + + + + + + | Component | Value | Ref Range | Performed | Pathologist | | | | | At | Signature | + + + + + + | ABO Rh | O POSITIVE | | [facility] | | | | | | LABORATORY | | + + + + + + | Antibody | NEGATIVE | | [facility] | | | Screen | | | LABORATORY | | + + + + + + | BB BAND | [id number] | | [facility] | | | | | | LABORATORY | | + + + + + + | BB BAND | Testing performed at | | [facility] | | | | [facility];[address] | LABORATORY | | | | [address];[place] [address] | | | | + + + + + + + + | Specimen | + + | Blood | + + + + + + + | Performing | Address | City/State/Zipcode | Phone Number | | Organization | | | | + + + + + | [facility] | [address] | [place] [address] | [phone] | + + + + + MRSA NAAT (09/10/2019 3:53 PM PST) + + + + + + | Component | Value | Ref Range | Performed | Pathologist | | | | | At | Signature | + + + + + + | SOURCE: | NARES(NOSE) | | [facility] | | | | | | LABORATORY | | + + + + + + | Result | NEGATIVEComment: Testing | MRSNEG | [facility] | | | | performed at [facility];[address] | | LABORATORY | | | | [address];[place] | | | | | | [address] | | | | + + + + + + + + | Specimen | + + | Tissue - Both | | anterior nares (body | | structure) | + + + + + + + | Performing | Address | City/State/Zipcode | Phone Number | | Organization | | | | + + + + + | [facility] | [address] | [place] [address] | [phone] | + + + + + Basic Metabolic Panel (09/10/2019 3:53 PM PST) + + + + + [...] + + + + | CO2 | 28 | 23 - 32 mmol/L | [facility] [...] + + + + | BUN | 21 | 8 - 25 mg/dL | [facility] | | | | | | LABORATORY | | + + + + + + | Creatinine | 1.18 | 0.70 - 1.30 | [facility] | | | | | mg/dL | LABORATORY | | + + + + + + | BUN/Creatin | 18 | | [facility] | | | ine Ratio | | | LABORATORY | | + + + + + + | Calcium | 9.8 | 8.5 - 10.5 | [facility] | | | | | mg/dL | LABORATORY | | + + + + + + | Estimated | 59 (L)Comment: GFR <60: | >60 | [facility] | | | GFR | CHRONIC KIDNEY [...] | | | | | performed at [facility] | | | | | | [facility];[place], [place] | | | | | | [address] | | | | + + + + + + + + | Specimen | + + | Blood | + + + + + + + | Performing | Address | City/State/Zipcode | Phone Number | | Organization | | | | + + + + + | [facility] | [address] | [place] [address] | [phone] | + + + + + documented in this encounter Visit Diagnoses Not on filedocumented in this encounter
--- OUTSIDE RECORDS SUMMARY | ~2020-02-23 | XMS | Encounter Summary ---
Demographics + + + | Address | [address] | | | [place] [address] | + + + | Home Phone | | + + + | Preferred Language | Unknown | + + + | Marital Status | | + + + | Sikhism Affiliation | Unknown | + + + | Race | Unknown | + + + | Ethnic Group | Unknown | + + + Author + + + | Author | [facility] | | | and [place] | + + + | Organization | [facility] | | [...] [place] | | | | | [address] | | + + + + + Care Team Providers + +------+ + | Care Account Collector Name | Role | Phone | + +------+ + | Carlos Alberto Galeas MD | PCP | | + +------+ + Encounter Details +--------+ + + + + | Date | Type | Department | Care Team | Description | +--------+ + + + + | 12/06/ | Hospital | [facility] | Rhett Max | Bilateral carotid | | 2017 | Encounter | MED CTR ULTRASOUND | MD Sara [address] | artery stenosis | | | | [address] [place] | [address] | | | | | [place], [place] | [place] [address] | | | | | [address] | [phone] | | | | | [phone] | | | | | | | Cindy, Jeramy Rojas, | | | | | | Technologist | | +--------+ + + + + Social History + +-------+ +--------+------+ | Tobacco Use | Types | Packs/Day | Years | Date | | | | | Used | | + +-------+ +--------+------+ | Never Assessed | | | | | + +-------+ +--------+------+ + + + | Sex Assigned at [...] [facility] | | | | | | [place] [address] | | | | | | [phone] | | | | | | | | +--------+---------+ + + + documented as of this encounter Procedures + +--------+ + + + | Procedure Name | Priori | Date/Time | Associated Diagnosis | Comments | | | ty | | | | + +--------+ + + + | VAS CAROTID DUPLEX | Routin | 12/06/2016 | Bilateral carotid | Results for this | | BILATERAL | e | 3:52 PM | artery stenosis | procedure are in the | | | | PDT | | results section. | + +--------+ + + + documented in this encounter Results VAS Carotid Duplex Bilateral (12/06/2016 3:52 PM PDT) + + | Specimen | + + | | + + + + + | Narrative | Performed At | + + + | BILATERAL DUPLEX CAROTID ULTRASOUND 12/06/2016 2:39 PM CLINICAL | [facility] | | HISTORY: CAROTID ARTERY STENOSIS COMPARISON: None available | | | FINDINGS: Grayscale, color Doppler and duplex Doppler interrogation of | | | the bilateral cervical carotid arteries is performed. All reported | | | velocities are in cm/sec. ANTERIOR CIRCULATION: Right: CCA: | | | 50/8; bulb: 225/19; ECA: 229/33; ICA: 256/19 (ICA/CCA 5.1) with | | | turbulent flow Left: CCA: 56/14; bulb: Not visible; ECA: 196/31; | | | ICA: 123/24 (ICA/CCA 2.2) with turbulent flow Posterior | | | circulation: There is antegrade flow in the left vertebral artery. | | | The right vertebral artery is poorly visualized but appears to | | | demonstrate faint retrograde flow in the visible segment. | | | Grayscale findings: Echogenic plaque is scattered throughout the | | | common carotid arteries. There is echogenic plaque in the right | | | carotid bulb, extending into the internal and external carotid | | | arteries. Prominent echogenic, shadowing plaque obscures the left | | | carotid bulb and origins of the internal and external carotid | | | arteries. IMPRESSION - 1. FINDINGS CONSISTENT WITH GREATER | | | THAN 70% STENOSIS OF THE RIGHT CERVICAL INTERNAL CAROTID ARTERY BASED | | | ON PEAK SYSTOLIC VELOCITY AND ICA/CCA RATIO CRITERIA. FOLLOW-UP | | | CTA SHOULD BE CONSIDERED FOR FURTHER CHARACTERIZATION OF THE DEGREE | | | OF STENOSIS. 2. AT LEAST 50% STENOSIS SUSPECTED IN THE LEFT | | | CERVICAL INTERNAL CAROTID ARTERY, ALTHOUGH EVALUATION OF THE CAROTID | | | BULB AND ICA ORIGIN IS LIMITED BY SHADOWING PLAQUE. FOLLOW-UP CTA | | | SHOULD BE STRONGLY CONSIDERED. 3. PROBABLE DIMINISHED RETROGRADE | | | FLOW IN THE RIGHT VERTEBRAL ARTERY. Dictated and Signed by: Daniel Gann | | MD Julian Electronically signed: 12/06/2016 6:58 PM | | + + + + + | Procedure Note | + + | Stan, Rad Results In - 12/06/2016 7:01 PM PDT BILATERAL DUPLEX CAROTID ULTRASOUND | | 12/06/2016 2:39 PMCLINICAL HISTORY: CAROTID ARTERY STENOSISCOMPARISON: None | | availableFINDINGS: Grayscale, color Doppler and duplex Doppler interrogation of | | thebilateral cervical carotid arteries is performed. All reported velocities arein | | cm/sec.ANTERIOR CIRCULATION:Right: CCA: 50/8; bulb: 225/19; ECA: 229/33; ICA: 256/19 | | (ICA/CCA 5.1) withturbulent flowLeft: CCA: 56/14; bulb: Not visible; ECA: 196/31; ICA: | | 123/24 (ICA/CCA 2.2) withturbulent flowPosterior circulation: There is antegrade flow in | | the left vertebral artery. The right vertebral artery is poorly visualized but appears | | to demonstrate faintretrograde flow in the visible segment.Grayscale findings: Echogenic | | plaque is scattered throughout the common carotidarteries. There is echogenic plaque | | in the right carotid bulb, extending intothe internal and external carotid arteries. | | Prominent echogenic, shadowingplaque obscures the left carotid bulb and origins of the | | internal and externalcarotid arteries.IMPRESSION -1. FINDINGS CONSISTENT WITH GREATER | | THAN 70% STENOSIS OF THE RIGHT CERVICALINTERNAL CAROTID ARTERY BASED ON PEAK SYSTOLIC | | VELOCITY AND ICA/CCA RATIOCRITERIA. FOLLOW-UP CTA SHOULD BE CONSIDERED FOR FURTHER | | CHARACTERIZATION OFTHE DEGREE OF STENOSIS.2. AT LEAST 50% STENOSIS SUSPECTED IN THE | | LEFT CERVICAL INTERNAL CAROTIDARTERY, ALTHOUGH EVALUATION OF THE CAROTID BULB AND ICA | | ORIGIN IS LIMITED BYSHADOWING PLAQUE. FOLLOW-UP CTA SHOULD BE STRONGLY CONSIDERED.3. | | PROBABLE DIMINISHED RETROGRADE FLOW IN THE RIGHT VERTEBRAL ARTERY.Dictated and Signed | | by: Daniel Jordan MD Electronically signed: 12/06/2016 6:58 PM | | | |Grayscale findings: Echogenic plaque is scattered throughout the common carotid | |arteries. There is echogenic plaque in the right carotid bulb, extending into | |the internal and external carotid arteries. Prominent echogenic, shadowing | |plaque obscures the left carotid bulb and origins of the internal and external | |carotid arteries. | | | |IMPRESSION - | |1. FINDINGS CONSISTENT WITH GREATER THAN 70% STENOSIS OF THE RIGHT CERVICAL | |INTERNAL CAROTID ARTERY BASED ON PEAK SYSTOLIC VELOCITY AND ICA/CCA RATIO | |CRITERIA. FOLLOW-UP CTA SHOULD BE CONSIDERED FOR FURTHER CHARACTERIZATION OF | |THE DEGREE OF STENOSIS. | | | |2. AT LEAST 50% STENOSIS SUSPECTED IN THE LEFT CERVICAL INTERNAL CAROTID | |ARTERY, ALTHOUGH EVALUATION OF THE CAROTID BULB AND ICA ORIGIN IS LIMITED BY | |SHADOWING PLAQUE. FOLLOW-UP CTA SHOULD BE STRONGLY CONSIDERED. | | | |3. PROBABLE DIMINISHED RETROGRADE FLOW IN THE RIGHT VERTEBRAL ARTERY. | | | |Dictated and Signed by: Daniel Jordan MD | | Electronically signed: 12/06/2016 6:58 PM | + + + +---------+ + + | Performing | Address | City/State/Zipcode | Phone Number | | Organization | | | | + +---------+ + + | [facility] | | | | + +---------+ + + documented in this encounter Visit Diagnoses + + | Diagnosis | + + | Bilateral carotid artery stenosis 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
--- OUTSIDE RECORDS SUMMARY | ~2020-02-23 | XMS | Encounter Summary ---
Demographics + + + | Address | [address] | | | [place] [address] | + + + | Home Phone | | + + + | Preferred Language | Unknown | + + + | Marital Status | | + + + | Confucianist Affiliation | Unknown | + + + | Race | Unknown | + + + | Ethnic Group | Unknown | + + + Author + + + | Author | [facility] | | | and [place] | + + + | Organization | [facility] | | [...] [place] | | | | | [address] | | + + + + + Care Team Providers + +------+ + | Care Fur Sorter Name | Role | Phone | + +------+ + | Carlos Alberto Galeas MD | PCP | | + +------+ + Encounter Details +--------+ + + + + | Date | Type | Department | Care Team | Description | +--------+ + + + + | 12/06/ | Hospital | [facility] | Max Delaney | Atheroscler of | | 2017 | Encounter | MED CTR ULTRASOUND | MD Sara [address] | knik artery of | | | | [address] [place] | [address] | right leg with | | | | [place], [place] | [place] [address] | intermit | | | | [address] | [phone] | claudication (HCC) | | | | [phone] | | | | | | | Valeria Rios, | | | | | | Technologist [...] [address] | | | | | | [place] [address] | | | | | | [phone] | | | | | | | | +--------+---------+ + + + documented as of this encounter Procedures + +--------+ + + + | Procedure Name | Priori | Date/Time | Associated Diagnosis | Comments | | | ty | | | | + +--------+ + + + | VAS LOWER EXTREMITY | Routin | 12/06/2016 | Atheroscler of | Results for this | | ARTERIES RIGHT | e | 5:08 PM | knik artery of | procedure are in the | | | | PDT | right leg with | results section. | | | | | intermit | | | | | | claudication (HCC) | | + +--------+ + + + documented in this encounter Results VAS Lower Extremity Arteries Right (12/06/2016 5:08 PM PDT) + + | Specimen | + + | | + + + + + | Narrative | Performed At | + + + | RIGHT LOWER EXTREMITY ARTERIAL ULTRASOUND 12/06/2016 2:39 PM | [facility] | | CLINICAL HISTORY: Atheroscler of knik artery of right leg with | | | intermit claudication, history of bypass surgery COMPARISON: None | | | available FINDINGS: Chester scale, color Doppler and duplex Doppler | | | interrogation of the right lower extremity arterial system is | | | performed. A bypass graft is suggested in the medial right thigh | | | along the course of the superficial femoral artery and appears widely | | | patent, with triphasic waveforms. In the mid to distal thigh, a | | | bifurcating appearance of the graft is apparent, with both limbs | | | appearing widely patent and demonstrating triphasic waveforms. The | | | more superficial limb appears to ultimately anastomose with the | | | knik popliteal artery, which is patent and demonstrates triphasic | | | waveforms. The more posterior superficial femoral graft branch is | | | patent proximally but is not well visualized more distally. | | | IMPRESSION - PATENT BYPASS GRAFT SUGGESTED IN THE MEDIAL RIGHT THIGH | | | ALONG THE COURSE OF THE SFA, APPEARING TO BIFURCATE IN THE MID TO | | | DISTAL THIGH, WITH ONE BRANCH APPEARING TO ANASTOMOSE WITH THE PATENT | | | POPLITEAL ARTERY, WHILE THE OTHER BRANCH IS NOT WELL VISUALIZED MORE | | | DISTALLY. TRIPHASIC WAVEFORMS ARE DEMONSTRATED. NO PRIOR IMAGING | | | IS AVAILABLE FOR COMPARISON. Dictated and Signed by: Daniel Gann | | MD Julian Electronically signed: 12/06/2016 7:48 PM | | + + + + + | Procedure Note | + + | Stan, Rad Results In - 12/06/2016 7:51 PM PDT RIGHT LOWER EXTREMITY ARTERIAL | | ULTRASOUND 12/06/2016 2:39 PMCLINICAL HISTORY: Atheroscler of knik artery of right leg | | with intermitclaudication, history of bypass surgeryCOMPARISON: None availableFINDINGS: | | Chester scale, color Doppler and duplex Doppler interrogation of theright lower extremity | | arterial system is performed. A bypass graft is suggestedin the medial right thigh | | along the course of the superficial femoral artery andappears widely patent, with | | triphasic waveforms. In the mid to distal thigh, abifurcating appearance of the graft | | is apparent, with both limbs appearingwidely patent and demonstrating triphasic | | waveforms. The more superficial limbappears to ultimately anastomose with the knik | | popliteal artery, which ispatent and demonstrates triphasic waveforms. The more | | posterior superficialfemoral graft branch is patent proximally but is not well | | visualized moredistally.IMPRESSION - PATENT BYPASS GRAFT SUGGESTED IN THE MEDIAL RIGHT | | THIGH ALONG THE COURSE OF THESFA, APPEARING TO BIFURCATE IN THE MID TO DISTAL THIGH, | | WITH ONE BRANCHAPPEARING TO ANASTOMOSE WITH THE PATENT POPLITEAL ARTERY, WHILE THE OTHER | | BRANCHIS NOT WELL VISUALIZED MORE DISTALLY. TRIPHASIC WAVEFORMS ARE DEMONSTRATED. | | [facility] FOR [facility]ISON.Dictated and Signed by: Daniel Jordan MD | | Electronically signed: 12/06/2016 7:48 PM | | | |IMPRESSION - | |PATENT BYPASS GRAFT SUGGESTED IN THE MEDIAL RIGHT THIGH ALONG THE COURSE OF THE | |SFA, APPEARING TO BIFURCATE IN THE MID TO DISTAL THIGH, WITH ONE BRANCH | |APPEARING TO ANASTOMOSE WITH THE PATENT POPLITEAL ARTERY, WHILE THE OTHER BRANCH | |IS NOT WELL VISUALIZED MORE DISTALLY. TRIPHASIC WAVEFORMS ARE DEMONSTRATED. NO | |PRIOR IMAGING IS AVAILABLE FOR COMPARISON. 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
--- OUTSIDE RECORDS SUMMARY | ~2020-02-23 | XMS | Encounter Summary ---
Demographics + + + | Address | [address] | | | [place] [address] | + + + | Home Phone [...] | + + + + + | [address]ason | [place] | | | | | | [place] | | | | | [address] | | + + + + + Care Team Providers + +------+ + | Care Miter Sawyer Name | Role | Phone | + [...] Jcarlos, | | | | | | Critical | Osmin Pearson MD | | | | | | lower limb | [address] | | | | | | ischemia | [address] | | | | | | Procedures | [address] | | | | | | VAS Ankle | [place] | | | | | | Brachial | [place] | | | | | | Index | [address] | | | | | | Resting | Phone: | | | | | | | [phone] | | | | | | | Fax: | | | | | | | [phone] | | +--------+--------+ + + + + Diagnostic/Screening (Routine) +--------+--------+ + + + + | Status | Reason | Specialty | Diagnoses / | Referred By | Referred To | | | | | Procedures | Contact | Contact | +--------+--------+ + + + + | Closed | | Radiology | Diagnoses | Jcarlos, | | | | | | Critical | Osmin Pearson MD | | | | | | lower limb | [address] | | | | | | ischemia | [address] | | | | | | Procedures | [address] | | | | | | VAS Aorta | [place] | | | | | | Iliac Duplex | [facility] [place] | | | | | | Limited | [address] | | | | | | | Phone: | | | | | | | [phone] | | | | | | | Fax: | | | | | | | [phone] | | +--------+--------+ + + + + Reason for Visit + +--------+ + | Reason | Onset | Comments | | | Date | | + +--------+ + | Follow-up | 09/20/ | | | | 2019 | | + +--------+ + Encounter Details +--------+ + + + + | Date | Type | Department | Care Team | Description | +--------+ + + + + | 09/20/ | Telephone | [facility] | Niharika Man, | Follow-up | | 2019 | | VASCULAR SURGERY | [address] | | | | | [address] | | | | | | [place] | | | | | | [address] | | | | | | [phone] | | | +--------+ + + + [...] this encounter Miscellaneous Notes Telephone Encounter - Karley Smith - 09/22/2019 1:48 PM PSTJoyce- Spouse, is calling a gain for Follow-up and would like a call back. Additional Call Details: Calling to speak with Niharika. States that the ultrasound order has not made it to [facility]. Please call Rivka back to advise at [phone]. elephone Encounter - Niharika Booth, [address] - 09/21/2019 4:35 PM PSTSpoke to pt's re: f/u from r ecent L angio & L fem endart. Pt is scheduled for f/u with Rupert Garber on 09/29. Pt prefers im aging be done at [facility]. He will need L leg arterial w/ JEREMY. Encouraged her to call b ack with any questions/concerns. SamP d ocumented in this encounter Plan of Treatment +--------+---------+ + + + | Date | Type | Specialty | Care Team | Description | +--------+---------+ + + + | 08/04/ | Office | Cardiology | Anusha Lomax | | | 2020 | Visit | | [address] | | | | | | [address] | | | | | | [place] [address] | | | | | | [phone] | | | | | | | | +--------+---------+ + + + + +---------+--------+ + + | Name | Type | Priori | Associated Diagnoses | Order Schedule | | | | ty | | | + +---------+--------+ + + | VAS Aorta Iliac | Imaging | Routin | Critical lower | Expected: | | Duplex Limited | | e | limb ischemia | 10/06/2019, Expires: | | | | | | 09/21/2020 | + +---------+--------+ + + documented as of this encounter Results VAS Ankle Brachial Index Resting (09/30/2019 4:11 PM PDT) + + | Specimen | + + | | + + + + + | Impressions | Performed At | + + + | JEREMY is high in both lower extremities likely secondary to | [facility] | | circumferential calcification. 1. TBI in the left lower extremity | | | suggests at least moderate arterial insufficiency. 2. Right TBI is | | | within normal limits and improved from the prior study. 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 | | | COMPARISON: VAS LOWER EXTREMITY ARTERIAL BILAT W JEREMY SINGLE LEVEL | | | (07/02/2019); VAS LOWER EXTREMITY ARTERIES RIGHT (02/03/2018); VAS | | | ANKLE BRACHIAL INDEX RESTING (02/03/2018); IR ANGIOGRAM LOWER | | | EXTREMITY LEFT (09/11/2019); PROCEDURE: Using continuous wave | | | Doppler, segmental pressure measurements in both arms and both legs. | | | FINDINGS: (measurements in millimeters of mercury systolic) | | | Right Arm: 139 Left Arm: 142 RIGHT Dorsalis Pedis: 157 | | | Posterior Tibial: 202 JEREMY: 1.42 Great toe: 129 mm Hg TBI: 0.91 | | | Waveforms: Triphasic CATERING ADMINISTRATIVE ASSISTANT, monophasic DP LEFT Dorsalis Pedis: 194 | | | Posterior Tibial: Noncompressible JEREMY: 1.37 Great toe: 26 mm Hg | | | TBI: 0.18 Waveforms: Monophasic waveforms throughout the ankle | | + + + + + | Procedure Note | + + | Stan, Rad Results In - 10/01/2019 3:27 PM PDT | | LOWER EXTREMITY ARTERIAL SCAN, ANKLE BRACHIAL INDEX | | | | CLINICAL INFORMATION: | | Left LABORATORY IMMUNOLOGIST endarterectomy and iliac stents. | | | | COMPARISON: | | VAS LOWER EXTREMITY ARTERIAL BILAT W JEREMY SINGLE LEVEL (07/02/2019); VAS | | LOWER EXTREMITY ARTERIES RIGHT (02/03/2018); VAS ANKLE BRACHIAL INDEX | | RESTING (02/03/2018); IR ANGIOGRAM LOWER EXTREMITY LEFT (09/11/2019); | | | | PROCEDURE: | | Using continuous wave Doppler, segmental pressure measurements in both | | arms and both legs. | | | | FINDINGS: | | (measurements in millimeters of mercury systolic) | | Right Arm: 139 | | Left Arm: 142 | | | | RIGHT | | Dorsalis Pedis: 157 | | Posterior Tibial: 202 | | JEREMY: 1.42 | | Great toe: 129 mm Hg | | TBI: 0.91 | | Waveforms: Triphasic CATERING ADMINISTRATIVE ASSISTANT, monophasic DP | | | | LEFT | | Dorsalis Pedis: 194 | | Posterior Tibial: Noncompressible | | JEREMY: 1.37 | | Great toe: 26 mm Hg | | TBI: 0.18 | | Waveforms: Monophasic waveforms throughout the ankle | | | | IMPRESSION: | | JEREMY is high in both lower extremities likely secondary to | | circumferential calcification. | | 1. TBI in the left lower extremity suggests at least moderate arterial | | insufficiency. | | 2. Right TBI is within normal limits and improved from the prior study. | | | | | | | | Ankle Brachial Indices | | Categorization of Disease | | | | INDEX EXTENT OF DISEASE | | > 1.0 Normal | | .90-.99 Mild / Borderline | | .60-.89 Moderate | | .50-.59 Severe | | < .49 Severe | | | | | | | | Signed by: Katharine Rowell, Ajit | | Sign Date/Time: 10/01/2019 3:24 PM | + + + +---------+ + + | Performing | Address | City/State/Zipcode | Phone Number | | Organization | | | | + +---------+ + + | [facility] | | | | + +---------+ + + documented in this encounter Visit Diagnoses + + | Diagnosis | + + | Critical lower limb ischemia - Primary Unspecified circulatory system disorder | + + documented in this encounter"
--- OUTSIDE RECORDS SUMMARY | ~2020-02-23 | XMS | Encounter Summary ---
Demographics + + + | Address | [address] | | | [place] [address] | + + + | Home Phone | | + + + | Preferred Language | Unknown | + + + | Marital Status | | + + + | Jain Affiliation | Unknown | + + + | Race | Unknown | + + + | Ethnic Group | Unknown | + + + Author + + + | Author | [facility] | | | and [place] | + + + | Organization | [facility] | [...] [place] | | | | | [id number] | | + + + + + Care Team Providers + +------+ + | Care Turbine Operator Name | Role | Phone | + +------+ + | Carlos Alberto Galeas MD | PCP | | + +------+ + Encounter Details +--------+ + + + + | Date | Type | Department | Care Team | Description | +--------+ + + + + | 12/31/ | Hospital | [facility] | Sajan Hernandez, | Other closed | | 2017 - | Encounter | MED [facility] [address] | fracture of shaft of | | | | [place], | [address], | right femur with | | 01/17/ | | [place] [address] | [place] [address] | routine healing, | | 2017 | | [phone] | [phone] | subsequent encounter | | | | [...] original. REHABILITATION DISCHARGE SUMMARY TEMPLATE Patient Identification: Dora Arellano : [id number] Admit Date: 12/31/2016 Attending Provider: [...] are age indeterminate. They are mild and eoct-xb-vuzgcajr deformities. Diffuse demineralization. Diffuse lumbar spondylosis. Possible [...] are age indeterminate. They are mild and peiv-go-wndqanhg deformities. Diffuse demineralization. Diffuse lumbar spondylosis. Possible [...] are age indeterminate. They are mild and cmhv-wk-wfyoeeiy deformities. Diffuse demineralization. Diffuse lumbar spondylosis. Possible [...] so his called EMS. Patient lives in [place], [place] and was initially ta yasir to [facility] in [place] where he was found to have a right mid-shaft femoral and l eft intertrochanteric femur fractures. There was no on-call ortho so he was transferred to [facility] for definitive treatment. 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 Sitting in C PSYCHIATRIC: pleasant, mood ok HEAD: NCAT. Scalp alopecia. EYES: pupils equal and conjugate, EOMI, anicteric sclera EARS: no blood in external auditory canal NOSE: no discharge MOUTH/THROAT: MMM, OP clear. Dentition is good NECK: supple, no masses CARDIOVASCULAR: skin warm and dry, 2+ radial pulses RESPIRATORY: nonlabored, breathing comfortably on room air GASTROINTESTINAL: soft, NT, ND, no hsm. +bowel sounds GENITOURINARY:velarde out, does IC prn SKIN: chronic dermatitis, [...] was able to be discharged home with PT and Nursing. See below for details. [...] diphenhydramine, benzodiazepines, scopolamine, and metoclopram manuel. Limit LADLE WATCHER active medications using lowest effective dose. -Implement environmental modifications (window bed, maintain well-lit room during day, minimize nighttime disturbance, and keep calendars and clock visible). -OOB to chair TID with meals if able. #Urinary retention - trial velarde out 01/14, doing ok and resolving, on [...] jeremi aorta for possible dilitation. F/u Dr. Mancuso per previous appointment DISCHARGE INSTRUCTIONS: nursing and [...] this chart may have been created with [employer] voice recognition software. Occasi onal wrong-word or [...] AM PDT WARFARIN PER PHARMACY PROTOCOL: Subjective/Objective: Dora Arellano is a 86 y.o. male admitted on 12/31/2016 for orthopedic surgery secondar y to femoral fracture. Patient has a past medical history of Atrial flutter (FORMER[facility]) ( 7); CVA (cerebral vascular accident) ([facility]) 2012 (2012); Mycosis fungoides ([facility]) Dx [facility] approx 1999; and Urinary retention. Patient is receiving warfarin for thromboprophyla xis postop and also for atrial flutter. Surgery date: 12/19/2016 ORIF IM carlos femoral Dr. Mancuso Goal INR: 2-3 Home dose: 3mg daily Drug Interactions:Amiodarone (DIGITAL ADVERTISING ANALYST med) Sensitizers:Age, renal fun Recent Labs Lab [...] for aflutter/past cva Pt is receiving amiodarone (investigation division captain med) 01/13 good po intake. Plan: Warfarin 2mg x 1. Am labs: INR Warfarin education received No; DIGITAL ADVERTISING ANALYST Will monitor daily Warfarin Dosing Nomogram Warfarin Dosing Expectations Per P&T-approved Electronically signed by: Ora Aranda RPH 01/17/2017 8:32 AWiCarine nichole RN - 01/16/2017 6:00 PM PDTVerbalized home self-cah pt was able to verbalize steps of self-cath erization And when to self-catherize pt will preform catherization before bed with rn to as sist ar onOra PharmD - 01/16/2017 11:33 AM PDT WARFARIN PER PHARMACY PROTOCOL: Subjective/Objective: Dora Arellano is a 86 y.o. male admitted on 12/31/2016 for orthopedic surgery secondar y to femoral fracture. 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 Patient is receiving warfarin for thromboprophyla xis postop and also for atrial flutter. Surgery date: 12/19/2016 ORIF IM carlos femoral Dr. Mancuso Goal INR: 2-3 Home dose: 3mg daily Drug Interactions:Amiodarone (DIGITAL ADVERTISING ANALYST med) Sensitizers:Age, renal fun Recent Labs Lab [...] for aflutter/past cva Pt is receiving amiodarone (investigation division captain med) 01/13 good po intake. Plan: Warfarin 1mg x 1. Am labs: INR Warfarin education received No; DIGITAL ADVERTISING ANALYST Will monitor daily Warfarin Dosing Nomogram Warfarin Dosing Expectations Per P&T-approved Electronically signed by: Ora Aranda Jan 01/16/2017 11:33 Jayson, Deonte morales MD - 01/16/2017 10:58 AM PDTFormatting of this note might be different from the orig inal. Dora Arellano is a 86 y.o. male patient. 1. [...] hand, right, initial encounter 12. Antalgic gait Axhc-qa-Ksjr Rehabilitation Medicine Daily Progress Note Date: 01/16/17 ID/CC: Mr. Arellano is a 86-year-old man with a history [...] new hand rail for stairs into ho co as current rails are too wide for him, he thinks this can be done by this week. Velared out 01/14, still having problems voiding, so [...] I checked bmp and BUN up to , so p ushing fluids, recheck BUN tomorrow. [...] Sajan Hernandez MD, 200 mg at 01/16/17 0821 atorvaSTATin (LIPITOR) tablet 20 mg, 20 mg, [...] Sajan Hernandez MD, 1,000 mg at 01/15/17 185 metoprolol tartrate (LOPRESSOR) tablet 12.5 mg, 12.5 mg, Oral, Daily, Sajan cabrera MD, 12.5 mg at 01/15/17 0807 midodrine (PROAMATINE) tablet 10 mg, 10 mg, Oral, TID Early, Sajan Hernandez MD, 1 0 mg at 01/16/17 0607 achjqbca-kvgaovdpg-wgfqqbsznj (NEOSPORIN) ointment, , Topical, TID, Deonte sow [...] BID, Sajan Hernandez MD, 25 mg at 0821 warfarin (COUMADIN) tablet 2.5 mg, 2.5 mg, [...] 4 FIM Toileting Score: 4 Assessment/Plan: Mr. Arellano is a 86-year-old man with a history [...] be on low side despite midodrine. P atjoey reports he has similar issues with BP [...] -Avoid diphenhydramine, benzodiazepines, scopolamine, and metoclopramide. Limit LADLE WATCHER active medications using lowest effective dose. -Implement environmental modifications (window bed, maintain well-lit room during day, min imize nighttime disturbance, and keep calendars and clock visible). -OOB to chair TID with meals if able. #Urinary retention - trial velarde out 01/14, on max doses tamsulosin, doing IC training for n ow, but is able to void much of the time, so will only probably need temporary IC and so deneen l set up for catheters for home use [...] this chart may have been created with [employer] voice recognition software. Occasi onal wrong-word or sound-alike substitutions may have occurred due to the inherent ness itations of voice recognition software. Please read the chart carefully and recognize, using context, where these substitutions have occurred. 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 Urinary retention Current Facility-Administered Medications Medication Dose Route Frequency Provider Last Rate Last Dose aluminum & magnesium hydroxide-simethicone (MAALOX PLUS REGULAR STRENGTH) 200-200-20 mg /5 mL suspension 30 mL 30 mL Oral Q4H PRN Sajan Hernandez MD amiodarone (PACERONE) tablet 200 mg 200 mg Oral Daily Sajan Hernandez MD 200 mg at 01/16/17 0821 atorvaSTATin (LIPITOR) tablet 20 mg 20 mg [...] MD 10 m g at 01/16/17 0607 ibqtqifw-kxlnshrgl-zzygqpoidi (NEOSPORIN) ointment Topical TID Deonte horne MD ondansetron (ZOFRAN ODT) disintegrating tablet 4 [...] tablet 25 mg 25 mg Oral BID aSjan Hernandez MD 25 mg at 0821 warfarin (COUMADIN) tablet 2.5 mg 2.5 mg Oral Daily - Warfarin Radha Doherty, PharmOzzie 2.5 mg at 01/15/17 1758 warfarin per [...] PVR's. Continue straight catheterization prn. Continue tamsulosin. Dora is in favor of performing intermittent self catheterization at home prn, and I would support this. He can be taught self intermittent catheterization technique during this hos pitalization. Follow up in my office as an outpatient. uraúlam, Azra Moncada RN - 01/15/2017 3:10 PM PDTWith patient's verbal permission, a copy of the Rehab Team Conferenc e report from 01/15/17 was faxed to his PCP, Dr. Carlos Alberto Galeas, at [facility] in [place], [place] Amanda Irvin, PharmD - 01/15/2017 1:37 PM PDTFormatting of this note might be different fr om the original. WARFARIN PER PHARMACY PROTOCOL: Subjective/Objective: Doar Arellano is a 86 y.o. male admitted on 12/31/2016 for orthopedic surgery secondar y to femoral fracture. 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 Patient is receiving warfarin for thromboprophyla xis postop and also for atrial flutter. Surgery date: 12/19/2016 ORIF IM rodding femoral Dr. Mancuso Goal INR: 2-3 Home dose: 3mg daily Drug Interactions:Amiodarone (DIGITAL ADVERTISING ANALYST med) Sensitizers:Age, renal fun Recent Labs Lab [...] Am labs: INR Warfarin education received No; DIGITAL ADVERTISING ANALYST Will monitor daily Warfarin Dosing Nomogram Warfarin Dosing Expectations Per P&T-approved Electronically signed by: Amanda Roque, PharmD 01/15/2017 13:37 Tom, Carine Moncada RN - 01/15/2017 1:10 PM PDTC/o sore back robaxin given states little relief one oxycodone giv en Deonte Tyler MD - 01/15/2017 10:09 AM PDT . Dora Arellano is a 86 y.o. male patient. 1. [...] Urinary retention due to benign prostatic hyperplasia Yvuq-jk-Tzqp Rehabilitation Medicine Daily Progress Note Date: 01/15/17 ID/CC: Mr. Arellano is a 86-year-old man with a history [...] this can be done by this week. Velarde out yesterday, still having problems voiding, so [...] Sajan Hernandez MD, 200 mg at 01/15/17 0807 atorvaSTATin (LIPITOR) tablet 20 mg, 20 mg, [...] Sajan cabrera MD, 12.5 mg at 01/15/17 0807 midodrine (PROAMATINE) tablet 10 mg, 10 mg, Oral, TID Early, Sajan Hernandez MD, 1 0 mg at 01/15/17 0609 ondansetron (ZOFRAN ODT) disintegrating tablet 4 mg, 4 mg, Oral, Q6H PRN, Sajan flores MD oxyCODONE (ROXICODONE) tablet 5-10 mg, 5-10 mg, Oral, Q4H PRN, Sajan Hernandez MD, 5 mg at 01/14/17 175 polyethylene glycol (MIRALAX) powder 17 g, 17 [...] breakfast, Sajan pereira MD, 0.8 mg at 01/15/17 0807 traMADol (ULTRAM) tablet 25 mg, 25 mg, Oral, BID, Sajan Hernandez MD, 25 mg at 0807 warfarin (COUMADIN) tablet 2.5 mg, 2.5 mg, Oral, Daily - Warfarin, Quintin Moore mD, 2.5 mg at 01/14/17 1754 warfarin per pharmacy, , Other, Pharmacy Consult, [...] 4 FIM Toileting Score: 4 Assessment/Plan: Mr. Arellano is a 86-year-old man with a history [...] -Avoid diphenhydramine, benzodiazepines, scopolamine, and metoclopramide. Limit LADLE WATCHER active medications using lowest effective dose. -Implement environmental modifications (window bed, maintain well-lit room during day, min imize nighttime disturbance, and keep calendars and clock visible). -OOB to chair TID with meals if able. #Urinary retention - trial velarde out 01/14, on max doses tamsulosin, doing [...] this chart may have been created with [employer] voice recognition software. Occasi onal wrong-word or sound-alike substitutions may have occurred due to the inherent ness itations of voice recognition software. Please read the chart carefully and recognize, using context, where these substitutions have occurred. 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 Urinary retention Current Facility-Administered Medications Medication Dose Route Frequency Provider Last Rate Last Dose aluminum & magnesium hydroxide-simethicone (MAALOX PLUS REGULAR STRENGTH) 200-200-20 mg /5 mL suspension 30 mL 30 mL Oral Q4H PRN Sajan Hernandez MD amiodarone (PACERONE) tablet 200 mg 200 mg Oral Daily Sajan Hernandez MD 200 mg at 01/15/17 0807 atorvaSTATin (LIPITOR) tablet 20 mg 20 mg [...] Sajan Hernandez MD 5 mg at 01/14/17 175 polyethylene glycol (MIRALAX) powder 17 g 17 [...] Sajan moncada MD 0.8 mg at 01/15/17 0807 traMADol (ULTRAM) tablet 25 mg 25 mg Oral BID Sajan Hernandez MD 25 mg at 0807 warfarin (COUMADIN) tablet 2.5 mg 2.5 mg Oral Daily - Warfarin Radha Doherty, PharmD 2.5 mg at 01/14/17 1754 warfarin per pharmacy Other Pharmacy Consult Sajan [...] & Plan Placido Staples 01/15/2017 reland, Deneen rafael Roman MD - 01/14/2017 3:53 PM PDTFormatting of this note might be different from e original. Dora Arellano is a 86 y.o. male patient. 1. [...] Urinary retention due to benign prostatic hyperplasia Tzzb-mg-Xcwx Rehabilitation Medicine Daily Progress Note Date: 01/14/17 ID/CC: Mr. Arellano is a 86-year-old man with a history [...] this can be done by this week. Velarde out 6 hrs ago, still can't void, so I will consult Dr. Webb. On .8mg flomax. He w as on an OTC remedy at home, beta prostate medicine, that helped, so may have contained saw palmetto or similar herb. Nursing following his bladder volume and will put velarde back in i f volume >600 cc [...] 4 FIM Toileting Score: 4 Assessment/Plan: Mr. Arellano is a 86-year-old man with a history [...] -Avoid diphenhydramine, benzodiazepines, scopolamine, and metoclopramide. Limit LADLE WATCHER active medications using lowest effective dose. -Implement environmental modifications (window bed, maintain well-lit room during day, min imize nighttime disturbance, and keep calendars and clock visible). -OOB to chair TID with meals if able. #Urinary retention - trial velarde out today, on max doses tamsulosin -Cont [...] this chart may have been created with [employer] recognition software. Occasi onal wrong-word or sound-alike substitutions may have occurred due to the inherent ness itations of voice recognition software. Please read the chart carefully and recognize, using context, where these substitutions have occurred. 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 WARFARIN PER PHARMACY PROTOCOL: Subjective/Objective: Dora Arellano is a 86 y.o. male admitted on 12/31/2016 for orthopedic surgery secondar y to femoral fracture. 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 Patient is receiving warfarin for thromboprophyla xis postop and also for atrial flutter. Surgery date: 12/19/[address] Mancuso Goal INR: 2-3 Enoxaparin bridge: disch Inr>2 none Home dose: 3mg daily Drug Interactions:Amiodarone (DIGITAL ADVERTISING ANALYST med) Sensitizers:Age, renal fun Recent Labs Lab 01/14/17 0626 01/13/17 0652 01/12/17 0558 01/10/17 0635 CREA -- -- -- -- 1.31* HGB -- -- -- -- 11.5* HCT -- -- -- -- 34.1* PLT -- -- -- -- 347 INR 2.74* 3.02* 3.40* < > 2.63* < > = values in this interval not displayed. Date 12/19 12/20 12/21 612/23-12/31 01/01 01/02 01/03 01/04 01/05 01/06 Hgb [...] Am labs: INR Warfarin education received No; DIGITAL ADVERTISING ANALYST Will monitor daily Warfarin Dosing Nomogram Warfarin [...] the original. WARFARIN PER PHARMACY PROTOCOL: Subjective/Objective: Dora Arellano is a 86 y.o. male admitted on 12/31/2016 for orthopedic surgery secondar y to femoral fracture. 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 Patient is receiving warfarin for thromboprophyla xis postop and also for atrial flutter. Surgery date: 12/19/[address] Mancuso Goal INR: 2-3 Enoxaparin bridge: disch Inr>2 none Home dose: 3mg daily Drug Interactions:Amiodarone (DIGITAL ADVERTISING ANALYST med) Sensitizers:Age, renal fun Recent Labs Lab [...] Am labs: INR Warfarin education received No; DIGITAL ADVERTISING ANALYST Will monitor daily Warfarin Dosing Nomogram Warfarin Dosing Expectations Per P&T-approved Electronically signed by: Feli LeyvaD 01/13/2017 10:13 Ora Medina PharmD - 01/12/2017 10:05 AM PDTFormatting of this note might be different from the origi nal. WARFARIN PER PHARMACY PROTOCOL: Subjective/Objective: Dora Arellano is a 86 y.o. male admitted on 12/31/2016 for orthopedic surgery secondar y to femoral fracture. 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 Patient is receiving warfarin for thromboprophyla xis postop and also for atrial flutter. Surgery date: 12/19/[address] Mancuso Goal INR: 2-3 Enoxaparin bridge: disch Inr>2 none Home dose: 3mg daily Drug Interactions:Amiodarone (DIGITAL ADVERTISING ANALYST med) Sensitizers:Age, renal fun Recent Labs Lab [...] Am labs: INR Warfarin education received No; DIGITAL ADVERTISING ANALYST Will monitor daily Warfarin Dosing Nomogram Warfarin Dosing Expectations Per P&T-approved Electronically signed by: Ora Aranda [facility] 01/12/2017 10:05 Sajan Worrell MD - 01/11/2017 4:33 PM PDT Idow-xh-Cikq Rehabilitation Medicine Daily Progress Note Date: 01/11/17 ID/CC: Mr. Arellano is a 86-year-old man with a history [...] Daily, Sajan Hernandez MD, 200 mg at 01/11/17 0825 atorvaSTATin (LIPITOR) tablet 20 mg, 20 mg, Oral, Nightly, Sajan Hernandez MD, 20 mg at 01/10/173 bisacodyl (DULCOLAX) suppository 10 mg, 10 mg, Rectal, Daily PRN, Sajan Hernandez MD calcium carbonate (TUMS) chewable tablet 1,000 mg, 1,000 mg, Oral, Q8H PRN, Sajan Hernandez MD docusate sodium (COLACE) capsule 100 mg, 100 mg, Oral, BID PRN, Sajan Hernandez MD , 100 mg at 01/11/17 0825 lidocaine (XYLOCAINE) 2% jelly (uro-jet), , Urethral, [...] PH UA 6.0 5.0 - 8.0 Specific [place] 1.017 1.001 - 1.030 PROTEIN UA 30 [...] 4 FIM Toileting Score: 4 Assessment/Plan: Mr. Arellano is a 86-year-old man with a history [...] -Avoid diphenhydramine, benzodiazepines, scopolamine, and metoclopramide. Limit LADLE WATCHER active medications using lowest effective dose. -Implement environmental modifications (window bed, maintain well-lit room during day, min imize nighttime disturbance, and keep calendars and clock visible). -OOB to chair TID with meals if able. #Urinary retention - PVR's all elevated after removing velarde yesterday -Cont tamsulosin 0.8mg -Velarde placed for persistently high PVR's, will do [...] this chart may have been created with [employer] voice recognition software. Occasi onal wrong-word or sound-alike substitutions may have occurred due to the inherent ness itations of voice recognition software. Please read the chart carefully and recognize, using context, where these substitutions have occurred. obisch, Ryna Anderson - 01/11/2017 7:13 AM PDT WARFARIN PER PHARMACY PROTOCOL: Subjective/Objective: Dora Arellano is a 86 y.o. male admitted on 12/31/2016 for orthopedic surgery secondar y to femoral fracture. 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 Patient is receiving warfarin for thromboprophyla xis postop and also for atrial flutter. Surgery date: 12/19/2016 Fx THR TKKaylene Mancuso Goal INR: 2-3 Enoxaparin bridge: disch Inr>2 none Drug Interactions:Amiodarone (DIGITAL ADVERTISING ANALYST med) Sensitizers:Age, renal fun Recent Labs Lab [...] Am labs: INR Warfarin education received No; DIGITAL ADVERTISING ANALYST Will monitor daily Warfarin Dosing Nomogram Warfarin Dosing Expectations Per P&T-approved Electronically signed by: Radha Doherty, PharmD 01/11/2017 7:13 Ora Medina, Ph armD - 01/10/2017 10:36 AM PDT WARFARIN PER PHARMACY PROTOCOL: Subjective/Objective: Dora Arellano is a 86 y.o. male admitted on 12/31/2016 for orthopedic surgery secondar y to femoral fracture. 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 Patient is receiving warfarin for thromboprophyla xis postop and also for atrial flutter. Surgery date: 12/19/[address] Mancuso Goal INR: 2-3 Enoxaparin bridge: disch Inr>2 none Drug Interactions:Amiodarone (DIGITAL ADVERTISING ANALYST med) Sensitizers:Age, renal fun Recent Labs Lab [...] Am labs: INR Warfarin education received No; DIGITAL ADVERTISING ANALYST Will monitor daily Warfarin Dosing Nomogram Warfarin Dosing Expectations Per P&T-approved Electronically signed by: Ora Aranda [facility] 01/10/2017 10:36 Sajan Worrell MD - 01/09/2017 8:56 PM PDT Pkyn-im-Oknm Rehabilitation Medicine Daily Progress Note Date: 01/09/17 ID/CC: Mr. Arellano is a 86-year-old man with a history of a fib admitted 12/18/16 after a GLF resulti ng in right mid-shaft femoral and left intertrochanteric femur fractures resulting in impair ed mobility, transfers, and self-care. Interval history: Controlled fall with OT this morning, patient either miss-judged where [facility] was or slid off [facility] cushion. Low impact no pain after fall. Did have some lower back muscle spasms as he d id on Sat in the afternoon, which limited therapies today, and eventually improved with ronnell nails. Review of Systems - Constitutional - denies [...] mg, 10 mg, Oral, TID Early, Sajan Hrenandez MD, 1 0 mg at 01/09/17 1704 [...] 4 FIM Toileting Score: 4 Assessment/Plan: Mr. Arellano is a 86-year-old man with a history [...] -Avoid diphenhydramine, benzodiazepines, scopolamine, and metoclopramide. Limit LADLE WATCHER active medications using lowest effective dose. -Implement environmental modifications (window bed, maintain well-lit room during day, min imize nighttime disturbance, and keep calendars and clock visible). -OOB to chair TID with meals if able. #Urinary retention - PVR's all elevated after removing velarde yesterday -increase tamsulosin 0.4-->0.8mg -If PVR's still high will repeat U/A and place velarde again if normal. #DVT prophylaxis: -see [facility] [...] this chart may have been created with [employer] voice recognition software. Occasi onal wrong-word or sound-alike substitutions may have occurred due to the inherent ness itations of voice recognition software. Please read the chart carefully and recognize, using context, where these substitutions have occurred. uAzra reyes RN - 01/09/2017 1:29 PM PDTWith patient's verbal permission, a copy of the Rehab Team [place] report from 01/08/17 was faxed to his PCP, Dr. Carlos Alberto Galeas, at [facility] in [place], [place]. Ck Woody, PharmD - 01/09/2017 7:54 AM PDT WARFARIN PER PHARMACY PROTOCOL: Subjective/Objective: Dora Arellano is a 86 y.o. male admitted on 12/31/2016 for orthopedic surgery secondar y to femoral fracture. 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 Patient is receiving warfarin for thromboprophyla xis postop and also for atrial flutter. Surgery date: 12/19/[address] Mancuso Goal INR: 2-3 Enoxaparin bridge: disch Inr>2 none Drug Interactions:Amiodarone (DIGITAL ADVERTISING ANALYST med) Sensitizers:Age Recent Labs Lab 01/09/17 0631 01/08/17 0554 01/07/17 0638 01/04/17 0638 CREA -- -- -- -- 1.29 HGB -- -- -- -- 10.3* HCT -- -- -- -- 32.2* PLT -- -- -- -- 424 INR 2.14* 1.90* 1.65* < > 1.19* < > = values in this interval not displayed. Date 12/19 12/20 612/22-12/31 01/01 01/02 01/03 01/04 01/05 01/06 Hgb [...] Am labs: INR Warfarin education received No; DIGITAL ADVERTISING ANALYST Will monitor daily Warfarin Dosing Nomogram Warfarin Dosing Expectations Per P&T-approved Electronically signed by: David Mcclendon, Digital Media Associate 01/09/2017 7:49 Sajan Worrell MD - 01/08/2017 10:22 PM PDT Omjc-ai-Pggw Rehabilitation Medicine Daily Progress Note Date: 01/08/17 ID/CC: Mr. Arellano is a 86-year-old man with a history [...] Sajan Hernandez MD, 200 mg at 01/08/17 08 atorvaSTATin (LIPITOR) tablet 20 mg, 20 mg, Oral, Nightly, Sajan Hernandez MD, 20 mg at 01/08/172115 bisacodyl (DULCOLAX) suppository 10 mg, 10 mg, [...] Sajan Hernandez MD, 1,000 mg at 01/05/17 162 metoprolol tartrate (LOPRESSOR) tablet 12.5 mg, 12.5 mg, Oral, BID, Sajan Hernandez MD, 12.5 mg at 01/08/17 211 midodrine (PROAMATINE) tablet 10 mg, 10 mg, [...] 4 FIM Toileting Score: 4 Assessment/Plan: Mr. Arellano is a 86-year-old man with a history [...] be on low side despite midodrine. P atient reports he has similar issues with BP [...] -Avoid diphenhydramine, benzodiazepines, scopolamine, and metoclopramide. Limit LADLE WATCHER active medications using lowest effective dose. -Implement [...] this chart may have been created with [employer] voice recognition software. Occasi onal wrong-word or sound-alike substitutions may have occurred due to the inherent ness itations of voice recognition software. Please read the chart carefully and recognize, using context, where these substitutions have occurred. ohl, Ryan Carballo - 01/08/2017 8:23 AM PDT WARFARIN PER PHARMACY PROTOCOL: Subjective/Objective: Dora Arellano is a 86 y.o. male admitted on 12/31/2016 for orthopedic surgery secondar y to femoral fracture. 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 Patient is receiving warfarin for thromboprophyla xis postop and also for atrial flutter. Surgery date: 12/19/[address] Mancuso Goal INR: 2-3 Enoxaparin bridge: disch Inr>2 none Drug Interactions:Amiodarone (DIGITAL ADVERTISING ANALYST med) Sensitizers:Age Recent Labs Lab 01/08/17 0554 [...] not displayed. Date 12/19 12/20 12/21 12/22 6 612/23-12/31 01/01 01/02 01/03 01/04 01/05 01/06 Hgb [...] received 5 mg of Vit K in [place] and given F FP to help reverse anticoagulation in preparation for fx repair Was therapeutic on home regimen of 3 mg daily for aflutter/past cva Pt is receiving amiodarone and heparin sc q12h Plan: Warfarin 5 mg x1 Am labs: INR Warfarin education received No; DIGITAL ADVERTISING ANALYST Will monitor daily Warfarin Dosing Nomogram Electronically signed by: Ck Newman PharmD 01/08/2017 8:23 Azra Colon RN - 01/07/2017 1:25 PM PDTWit h patient's verbal permission, a copy of the Rehab Team Conference report from 01/04/17 was f axed to his PCP, Dr. Carlos Alberto Galeas, at [facility] in [place], [place].Electro nically signed by Azra Payan RN at 01/07/2017 1:26 PM Ck Suarez PharmD - 12/20 1:15 PM PDT WARFARIN PER PHARMACY PROTOCOL: Subjective/Objective: Dora Arellano is a 86 y.o. male admitted on 12/31/2016 for orthopedic surgery secondar y to femoral fracture. 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 Patient is receiving warfarin for thromboprophyla xis postop and also for atrial flutter. Surgery date: 12/19/[address] Mancuso Goal INR: 2-3 Enoxaparin bridge: disch Inr>2 none Drug Interactions:Amiodarone (DIGITAL ADVERTISING ANALYST med) Sensitizers:Age Recent Labs Lab 01/07/17 0638 [...] Am labs: INR Warfarin education received No; DIGITAL ADVERTISING ANALYST Will monitor daily Warfarin Dosing Nomogram Electronically signed by: David Mcclendon, Digital Media Associate 01/07/2017 12:59 Sajan Worrell MD - 01/07/2017 12:31 PM PDT Fyuu-pv-Xxdn Rehabilitation Medicine Daily Progress Note Date: 01/07/17 ID/CC: Mr. Arellano is a 86-year-old man with a history [...] Sat, with resolved wi th muscle relaxer. Velarde still in place, plan to remove tomorrow [...] 4 FIM Toileting Score: 4 Assessment/Plan: Mr. Arellano is a 86-year-old man with a history [...] -Avoid diphenhydramine, benzodiazepines, scopolamine, and metoclopramide. Limit LADLE WATCHER active medications using lowest effective dose. -Implement environmental modifications (window bed, maintain well-lit room during day, min imize nighttime disturbance, and keep calendars and clock visible). -OOB to chair TID with meals if able. #Urinary retention - U/A normal on admit, given age most likely BPH. -cont velarde for today, repeat void trial tomorrow -Cont. tamsulosin 0.4mg daily #DVT prophylaxis: -see [facility] above Code Status: No Code. Dispo:home with family 01/22/16 I spent 20 minutes face to face with the patient, with over 50% spent in counseling and/or coordination of care regarding the above plan. Signed: Sajan Hernandez MD Portions of this chart may have been created with [employer] voice recognition software. Occasi onal wrong-word or sound-alike substitutions may have occurred due to the inherent ness itations of voice recognition software. Please read the chart carefully and recognize, using context, where these substitutions have occurred. olph, Kaylene Bartlett PH - 01/06/2017 9:54 AM PDT WARFARIN PER PHARMACY PROTOCOL: Subjective/Objective: Dora Arellano is a 86 y.o. male admitted on 12/31/2016 for orthopedic surgery secondar y to femoral fracture. 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 Patient is receiving warfarin for thromboprophyla xis postop and also for atrial flutter. Surgery date: 12/19/[address] Mancuso Goal INR: 2-3 Enoxaparin bridge: disch Inr>2 none Drug Interactions:Amiodarone (DIGITAL ADVERTISING ANALYST med) Sensitizers:Age Recent Labs Lab 01/06/17 0632 [...] Am labs: INR Warfarin education received No; DIGITAL ADVERTISING ANALYST Will monitor daily Warfarin Dosing Nomogram Warfarin Dosing Expectations Per P&T-approved obis ch, Radha Suarez, PharmD - 01/05/2017 12:17 PM PDTFormatting of this note might be different from t he original. WARFARIN PER PHARMACY PROTOCOL: Subjective/Objective: Dora Arellano is a 86 y.o. male admitted on 12/31/2016 for orthopedic surgery secondar y to femoral fracture. 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 Patient is receiving warfarin for thromboprophyla xis postop and also for atrial flutter. Surgery date: 12/19/2016 [x]Fx []THR []TKR Dr. Mancuso Goal INR: 2-3 Enoxaparin bridge: []disch [x]Inr>2 []none Drug Interactions:Amiodarone (DIGITAL ADVERTISING ANALYST med) Sensitizers:Age Recent Labs Lab 01/05/17 0631 01/04/17 0638 01/03/17 0638 01/02/17 0632 01/01/17 0610 12/31/16 0621 HGB -- 10.3* -- 11.1* -- 10.6* HCT -- 32.2* -- 32.9* -- 32.1* PLT -- 424 -- 441* -- 389 CREA -- 1.29 -- 1.10 1.10 1.19 INR 1.32* 1.19* 1.13* 1.15* -- 1.12* Date 12/19 12/20 6/12/22-12/31 01/01 01/02 01/03 01/04 01/05 Hgb 10.9 [...] Am labs: INR Warfarin education received No; DIGITAL ADVERTISING ANALYST Will monitor daily Warfarin Dosing Nomogram Warfarin Dosing Expectations Per P&T-approved Radha Doherty, PharmOzzie 01/05/2017 12:17 Radha Ferrer, Ph armD - 01/04/2017 12:23 PM PDT WARFARIN PER PHARMACY PROTOCOL: Subjective/Objective: Dora Arellano is a 86 y.o. male admitted on 12/31/2016 for orthopedic surgery secondar y to femoral fracture. 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 Patient is receiving warfarin for thromboprophyla xis postop and also for atrial flutter. Surgery date: 12/19/2016 [x]Fx []THR []TKR Dr. Mancuso Goal INR: 2-3 Enoxaparin bridge: []disch [x]Inr>2 []none Drug Interactions:Amiodarone (DIGITAL ADVERTISING ANALYST med) Sensitizers:Age Recent Labs Lab 01/04/17 0638 01/03/17 0638 01/02/17 0632 01/01/17 0610 12/31/16 0621 HGB 10.3* -- 11.1* -- 10.6* HCT 32.2* -- 32.9* -- 32.1* PLT 424 -- 441* -- 389 CREA 1.29 -- 1.10 1.10 1.19 INR 1.19* 1.13* 1.15* -- 1.12* Date 12/19 12/20 6/12/22-12/31 01/01 01/02 01/03 01/04 Hgb 10.9 8.7 [...] Am labs: INR Warfarin education received No; DIGITAL ADVERTISING ANALYST Will monitor daily Warfarin Dosing Nomogram Warfarin Dosing Expectations Per P&T-approved Radha Doherty, PharmD 01/04/2017 12:23 Sajan Worrell MD - 01/03/2017 4:59 PM PDT Lbjv-vj-Fxqx Rehabilitation Medicine Daily Progress Note Date: 01/03/17 ID/CC: Mr. Arellano is a 86-year-old man with a history [...] Daily, Sajan Hernandez MD, 200 mg at 01/03/171108 atorvaSTATin (LIPITOR) tablet 20 mg, 20 mg, [...] Score: FIM Toileting Score: 1 Assessment/Plan: Mr. Arellano is a 86-year-old man with a history [...] -Avoid diphenhydramine, benzodiazepines, scopolamine, and metoclopramide. Limit LADLE WATCHER active medications using lowest effective dose. -Implement environmental modifications (window bed, maintain well-lit room during day, min imize nighttime disturbance, and keep calendars and clock visible). -OOB to chair TID with meals if able. #Urinary retention - U/A normal on admit, given age most likely BPH. Place velarde again -Start tamsulosin 0.4mg daily #Bilateral femur [...] this chart may have been created with [employer] voice recognition software. Occasi onal wrong-word or sound-alike substitutions may have occurred due to the inherent ness itations of voice recognition software. Please read the chart carefully and recognize, using context, where these substitutions have occurred. Radha Ferrer P harmD - 01/03/2017 12:25 PM PDT WARFARIN PER PHARMACY PROTOCOL: Subjective/Objective: Dora Arellano is a 86 y.o. male admitted on 12/31/2016 for orthopedic surgery secondar y to femoral fracture. 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 Patient is receiving warfarin for thromboprophyla xis postop and also for atrial flutter. Surgery date: 12/19/2016 [x]Fx []THR []TKR Dr. Mancuso Goal INR: 2-3 Enoxaparin bridge: []disch [x]Inr>2 []none Drug Interactions:Amiodarone (DIGITAL ADVERTISING ANALYST med) Sensitizers:Age Recent Labs Lab 01/03/17 0638 [...] Am labs: INR Warfarin education received No; DIGITAL ADVERTISING ANALYST Will monitor daily Warfarin Dosing Nomogram Warfarin Dosing Expectations Per P&T-approved Radha Doherty PharmD 01/03/2017 12:25 Sajan Worrell MD - 01/02/2017 8:30 PM PDT Aspc-ur-Obwb Rehabilitation Medicine Daily Progress Note Date: 01/02/17 ID/CC: Mr. Arellano is a 86-year-old man with a history [...] Sajan Hernandez MD, 200 mg at 01/02/17 0826 atorvaSTATin (LIPITOR) tablet 20 mg, 20 mg, [...] 3 mg, Oral, Daily - Warfarin, Ora Marko Manoj, [facility], 3 m g at 01/02/17 1729 warfarin per pharmacy, , Other, Pharmacy Consult, [...] UA 9.0 (H) 5.0 - 8.0 Specific [place] 1.012 1.001 - 1.030 PROTEIN UA Negative [...] Score: FIM Toileting Score: 1 Assessment/Plan: Mr. Arellano is a 86-year-old man with a history [...] diphenhydramine, benzodiazepines, scopolamine, and metoclopram manuel. Limit LADLE WATCHER active medications using lowest effective dose. -Implement [...] this chart may have been created with [employer] voice recognition software. Occasi onal wrong-word or sound-alike substitutions may have occurred due to the inherent ness itations of voice recognition software. Please read the chart carefully and recognize, using context, where these substitutions have occurred. Joao Gaviria P harmD - 01/02/2017 10:27 AM PDT WARFARIN PER PHARMACY PROTOCOL: Subjective/Objective: Dora Arellano is a 86 y.o. male admitted on 12/31/2016 for orthopedic surgery secondar y to femoral fracture. 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 Patient is receiving warfarin for thromboprophyla xis postop and also for atrial flutter. Surgery date: 12/19/2016 [x]Fx []THR []TKR Dr. Mancuso Goal INR: 2-3 Enoxaparin bridge: []disch [x]Inr>2 []none Drug Interactions:Amiodarone (DIGITAL ADVERTISING ANALYST med) Sensitizers:Age Recent Labs Lab 01/02/17 0632 [...] days Plan: Continue 3 mg warfarin daily (DIGITAL ADVERTISING ANALYST home dose) Am labs: INR Warfarin education received No; DIGITAL ADVERTISING ANALYST Will monitor daily Warfarin Dosing Nomogram Warfarin Dosing Expectations Per P&T-approved Feli SweeneyD 01/02/2017 10:27 Ora Medina, Ph armD - 01/01/2017 11:50 AM PDT WARFARIN PER PHARMACY PROTOCOL: Subjective/Objective: Dora Arellano is a 86 y.o. male admitted on 12/31/2016 for orthopedic surgery secondar y to femoral fracture. 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 Patient [...] 1.23 INR -- 1.12* 1.16* 1.16* Date 12/19 12/20 6/12/22--12-31 Hgb 10.9 8.7 9.1 7.8 7.7 7.2 [...] Am labs: inr Warfarin education received No; DIGITAL ADVERTISING ANALYST Will monitor daily Warfarin Dosing Nomogram Warfarin Dosing Expectations Per P&T-approved Ora Aranda Jan 01/01/2017 11:50 Lambert Smith MD - 01/01/2017 [...] 01/01/2017 10:08 documented in this enc ounter H&P Notes Sajan Hernandez MD - 01/01/2017 2:03 PM PDT IPR Admission H&P/Post-admission PE/Overall Plan of Care Patient name: Dora Arellano : 1930 Date of Admission: 12/31/2016 Attending Physician: Sajan Hernandez MD Impairment Group: Orthopedic Disorders 08.11 Status post unilateral hip fracture and 08.2 Status post femur (shaft) fracture Comorbid Conditions/List medical problems: Patient Active Problem List Diagnosis Atrial flutter Femur fracture, left Femur fracture, right Anticoagulant long-term use Acute diastolic heart failure Acute respiratory failure with hypoxia Atrial flutter with rapid ventricular response Postoperative hemorrhagic shock, initial encounter Elevated INR Delirium Rehabilitation Issues: Weakness Gait dysfunction Decreased balance Dyscoordination Functional Deficits: Impaired mobility Impaired ADLs/iADLs Impaired community reintegration Impaired avocation CC/ID: Mr. Arellano is a 86-year-old man with a history of a fib admitted 12/18/16 after a GLF resulti ng in right mid-shaft femoral and left intertrochanteric femur fractures resulting in impair ed mobility, transfers, and self-care. HISTORY OF PRESENT ILLNESS: Patient reports that over the past few years he has had a decline in balance and has sustai talha multiple falls. On 12/18 he stumbled backwards when walking and home and after trying to recover by taking a few steps back he landed hard on his pelvis. He noted immediate pain i n both legs, so his called EMS. Patient lives in [place], [place] and was initially taken to [facility] in [place] where he was found to have a right mid-shaft femoral and left intertrochanteric femur fractures. There was no on-call ortho so he was transferred to [facility] for definitive treatment. On 12/19 he was taken to the OR by Dr. Mancuso for bilateral ORIF's. He tolerated the proced ure well Admission has been complicated by hemorragic shock, now s/p IVF and RBC's, respiratory fail ure 2/2 volume overload 2/2 likely DHF. Patient has also had multiple episodes of symptomat ic orthostasis, which resolved after he was started on midodrine. Patient has also has mult iple elevated PVR's after the velarde was removed, per nursing there has been no resistance of pain reported with intermittent cath. Review of Systems: Constitutional - denies fevers/chills, denies fatigue Eyes - denies diplopia, denies double vision ENT denies sore throat, denies swallowing difficulty Card - denies CP, denies palpitations Pulm - denies dyspnea, cough Abd - denies n/v, denies diarrhea/constipation Vascular - denies swelling, denies cold extremities Neuro - Please see the review of systems discussed above in the history of present illness. MSK - stable bilateral leg pain Endocrine - denies heat/cold intolerance Skin - denies open sores Psych - denies depression, anxiety - denies incontinence, dysuria, frequency. Urinary retention today All denies rash, denies pruritis Hematologic- denies easy bruising or bleeding, denies weight loss PMHx: (per chart review confirmed with pt) Past Medical History: Diagnosis Date Atrial flutter (HCC) 12/18/2016 CVA (cerebral vascular accident) ([facility]) 2012 2012 Mycosis fungoides (HCC) Dx [facility] approx 2000 Urinary retention PSx: Past Surgical History: Procedure Laterality Date CATARACT REMOVAL WITH IMPLANT Bilateral CORONARY ANGIOPLASTY without stent [facility] [place] Approx [id number] Femoral artery bypass and Hx of stent FEMUR FRACTURE SURGERY Right 12/19/2016 Procedure: ORIF IM RODDING FEMORAL ANTEGRADE; Surgeon: Lambert Mancuso MD; Location: [facility] MAIN OR FEMUR FRACTURE SURGERY Left 12/19/2016 Procedure: ORIF IM RODDING FEMORAL TROCHANTERIC NAIL; Surgeon: Lambert Mancuso MD; Locati on: [facility] MAIN OR Right [facility] Meds During Hospitalization Current Facility-Administered Medications Medication Dose Route Frequency Provider Last Rate Last Dose acetaminophen (TYLENOL) tablet 650 mg 650 mg Oral Q4H PRN Sajan Hernandez MD albuterol-ipratropium (DUONEB) 2.5-0.5 mg/3 mL nebulizer solution 3 mL 3 mL Nebulizati on RT Q4H PRN Sajan Hernandez MD alteplase (CATHFLO ACTIVASE) injection 2 mg 2 mg Intercatheter PRN Sajan Hernandez MD aluminum & magnesium hydroxide-simethicone (MAALOX PLUS REGULAR STRENGTH) 200-200-20 mg /5 mL suspension 30 mL 30 mL Oral Q4H PRN Sajan Hernandez MD amiodarone (PACERONE) tablet 200 mg 200 mg Oral Daily Sajan Hernandez MD 200 mg at 01/01/17 0900 atorvaSTATin (LIPITOR) tablet 20 mg 20 mg Oral Nightly Sajan Hernandez MD 20 mg at 12/31/16 1954 bisacodyl (DULCOLAX) suppository 10 mg 10 mg Rectal Daily PRN Sajan Hernandez MD calcium carbonate (TUMS) chewable tablet 1,000 mg 1,000 mg Oral Q8H PRN Sajan decker MD docusate sodium (COLACE) capsule 100 mg 100 mg Oral BID PRN Sajan Hernandez MD heparin 5,000 units/mL injection 5,000 Units 5,000 Units Subcutaneous 2 times per day Sajan Hernandez MD 5,000 Units at 01/01/17 0900 lidocaine (XYLOCAINE) 2% jelly (uro-jet) Urethral 4x Daily PRN Sajan Hernandez MD metoprolol tartrate (LOPRESSOR) tablet 50 mg 50 mg Oral BID Sajan Hernandez MD 5 0 mg at 01/01/17 0900 midodrine (PROAMATINE) tablet 10 mg 10 mg Oral TID Early Sajan Hernandez MD 10 m g at 01/01/17 1843 ondansetron (ZOFRAN ODT) disintegrating tablet 4 mg 4 mg Oral Q6H PRN Sajan cabrera MD oxyCODONE (ROXICODONE) tablet 5-10 mg 5-10 mg Oral Q4H PRN Sajan Hernandez MD 5 mg at 01/01/17 1509 polyethylene glycol (MIRALAX) powder 17 g 17 g Oral Daily PRN Sajan Hernandez MD senna (SENOKOT) tablet 8.6 mg 8.6 mg Oral BID PRN Sajan Hernandez MD simethicone (MYLICON) chewable tablet 80 mg 80 mg Oral 4x Daily PRN Sajan Hernandez MD warfarin (COUMADIN) tablet 3 mg 3 mg Oral Daily - Warfarin Ora Marko Aranda, [facility] 3 mg a t 01/01/17 1749 warfarin per pharmacy Other Pharmacy Consult Sajan Hernandez MD Allergies: Allergies Allergen Reactions Lisinopril Not Noted Olmesartan Not Noted Penicillins Not Noted Lips swell eyes swell shut and pruritis Intolerance No active intolerances/contraindications Family History: Family History Problem Relation Age of Onset Heart attack Father Social History: per chart review and confirmed with pt Social History Social History Marital status: Spouse name: N/A Number of children: N/A Years of education: N/A Occupational History Not on file. Social History Main Topics Smoking status: Never Smoker Smokeless tobacco: Never Used Alcohol use 0.6 oz/week 1 Cans of beer per week Drug use: No Sexual activity: Not on file Other Topics Concern Not on file Social History Narrative No narrative on file Lives in [place] with his in a 8STE home. is legally blind. Patient plans on purchasing an outdoor lift so that he can enter his home without having to ascend stairs. Cultural needs: N/A Equipment needs: TBD Funding: medicare Functional History: PRIOR FUNCTION: Patient was independent in mobility, self-care, swallowing, bladder/bowel, communication, cognition, and was driving. CURRENT FUNCTION: Report Date 01/01/2017 FIM BladderScore: 1 FIM Bowel Score: 2 [...] Lower Body Score: FIM Toileting Score: 1 Physical Exam: BP 139/82 | Pulse 72 | Temp 36.7 C (98.1 F) (Oral) | Resp 18 | Ht 1.753 m (5' 9") | Wt 77.1 kg (169 lb 15.6 oz) | SpO2 92% | BMI 25.10 kg/m Body mass index is 25.1 kg/m. GEN: Normally developed, resting in bed, NAD PSYCH: Appropriate, pleasant, cooperative; normal mood, affect and thought content HEENT: NCAT, PERRL, anicteric sclera Neck: Supple with no LAD RESP: Breathing comfortably, lungs CTAB CV: Heart RRR, no m/r/g, no LE edema, DP and PT pulses symmetric, extremities warm ABD: +BS, soft, NTND SKIN: no rashes or skin breakdown noted Neurologic Exam: Oriented: Self, name of hospital, city, date, month, year, day SAb EF EE WE WF FF Nicola Right 5 5 5 5 5 5 5 Left 5 5 5 5 5 5 5 HF KF KE DF PF GTE Right 1 1 1 5 5 5 Left 1 1 1 5 5 5 Reflexes: Bic Tri BrachioRad Patella Achilles R 1+ 1+ 1+ trace 0 L 1+ 1+ 1+ trace 0 Sensory function: Light touch, pin-prick: reduced in length dependent pattern Vibration sense: absent bilateral toes and ankles Proprioception: absent bilateral toes Physical exam compared to the preadmission screen unchanged Labs: Recent Results (from the past 48 hour(s)) Comprehensive Metabolic Panel Collection Time: 01/01/17 6:10 Result Value Ref Range NA 136 136 [...] 2.0 BUN/CREA 17.3 Extra Lavender Top Tube Collection Time: 01/01/17 6:11 Result Value Ref Range Extra Lavender Top Tube Done Urinalysis Collection Time: 01/01/17 9:51 Result Value Ref Range COLOR Yellow Light Yellow, Yellow, Straw CLARITY Cloudy (A) Clear PH UA 9.0 (H) 5.0 - 8.0 Specific [place] 1.012 1.001 - 1.030 PROTEIN UA Negative Negative BLOOD UA Small (A) Negative GLUCOSE UA Negative Negative KETONES UA Negative Negative BILIRUBIN UA Negative Negative NITRITE UA Negative Negative LEUKOCYTES ESTERASE UA Negative Negative UROBILINOGEN UA Negative 0.2 mg/dL, 1.0 mg/dL, Negative Imaging: Recent Results (from the past 360 hour(s)) XR Femur Right 2+Vw Narrative External films for comparison only - no result from [place]. XR Femur Left 2+Vw Narrative External films for comparison only - no result from [place]. XR Chest PA or AP Narrative External films for comparison only - no result from [place]. FL C-Arm Stats No Charge Narrative No Radiologist interpretation, please see Chart Review. XR Femur Right 2+Vw Narrative XR FEMUR RIGHT 2+VW 12/19/2016 4:30 PM HISTORY: intra op. COMPARISON: None. FINDINGS: Intraoperative x-rays show placement of an intramedullary yulisa through the right femur. IMPRESSION - ORIF of right femur. Dictated and Signed by: Nikko Morejon MD Electronically signed: 12/19/2016 7:22 PM XR Femur Left 2+Vw Narrative XR FEMUR LEFT 2+VW 12/19/2016 4:30 PM HISTORY: intra op. COMPARISON: None. FINDINGS: Intraoperative x-rays show placement of an intramedullary yulisa through the left femur. IMPRESSION - ORIF of left femur. Dictated and Signed by: Nikko Morejon MD Electronically signed: 12/19/2016 7:22 PM XR Chest AP Portable Narrative EXAM: XR CHEST AP PORTABLE dated 12/20/2016 10:51 AM HISTORY: FEVER Comparison: Outside study 12/18/2016 TECHNIQUE: A single portable view of the chest. FINDINGS: Bilateral reticular appearing interstitial and airspace opacities in the upper lobes. Potential developing consolidation in the right lower lung. No pneumothorax. No large pleural effusions. Stable mild cardiac. No acute osseous abnormalities. IMPRESSION - Interstitial g opacities in the upper lungs bilaterally. This is uncertain if this is acute or chronic. Developing consolidation in the right lung may represent represent a pneumonia. Dictated and Signed by: Matthew Kwon MD Electronically signed: 12/20/2016 11:00 AM XR Chest AP Portable Narrative EXAM: XR CHEST AP PORTABLE dated 12/21/2016 12:30 PM HISTORY: PICC tip placement Comparison: 12/20/2016 TECHNIQUE: A single portable view of the chest. FINDINGS: New right approach PICC line catheter. The catheter is seen to the level of the distal superior vena cava. Airspace opacities bilaterally are unchanged. No pneumothorax. There is stable cardiomegaly. No acute osseous abnormalities. IMPRESSION - Right approach PICC line catheter tip seen in the distal superior vena cava. No postprocedural complication. Dictated and Signed by: Matthew Kwon MD Electronically signed: 12/21/2016 1:06 PM US Extremity Nonvascular Limited Right Narrative RIGHT THIGH ULTRASOUND 12/22/2016 12:09 PM CLINICAL HISTORY: Right Thigh Ultrasound to see fluid / blood collection COMPARISON: None available FINDINGS: Sonographic interrogation of the right thigh identifies no fluid collection, mass or other tissue distortion. IMPRESSION - 1. NO SONOGRAPHIC ABNORMALITY WITHIN THE RIGHT THIGH. Dictated and Signed by: Daniel Jordan MD Electronically signed: 12/22/2016 2:44 PM XR Chest AP Portable Narrative SINGLE AP CHEST 12/22/2016 12:59 PM CLINICAL HISTORY: shortness of breath COMPARISON: Chest radiograph from the previous day and additional recent radiographs FINDINGS: The right approach PICC again passes to the region of the cavoatrial junction. There is similar prominence of the cardiac silhouette and pulmonary vasculature with calcification and tortuosity of the thoracic aorta. There is similar hazy reticular opacity in the mid to lower lungs. No pneumothorax or pleural effusion is evident. Generalized osteopenia is suggested. IMPRESSION - 1. STABLE RADIOGRAPHIC APPEARANCE OF THE CHEST DEMONSTRATING PROMINENCE OF THE CARDIAC SILHOUETTE AND PULMONARY VASCULATURE AND NON-SPECIFIC HAZY RETICULAR OPACITY IN THE MID TO LOWER LUNGS. Dictated and Signed by: Daniel Jordan MD Electronically signed: 12/22/2016 2:43 PM XR Abdomen Portable Narrative CLINICAL INFORMATION: Abdominal Pain. COMPARISON: None available. FINDINGS: Frontal views of the abdomen. Bowel gas pattern: Multiple air distended loops of colon with small amount of air in the rectum. Small amount of scattered air noted within the small bowel. Abnormal calcifications: Prominent vascular calcifications. Bones: Sigmoid curvature of the visualized spine with multilevel degenerative disc disease and multilevel wedge compression deformities at T12, L1, and L2. Intramedullary nail and screw fixation of each femur. Other: Lung bases appear clear. IMPRESSION - Multiple air distended loops of colon. No evidence of small bowel obstruction. Anterior wedge compression deformities at T12, L1, and L2, of unknown chronicity. Dictated and Signed by: Moshe Ross MD Electronically signed: 12/24/2016 9:49 AM XR Chest AP Portable Narrative PORTABLE CHEST X-RAY: 12/25/2016 2:01 PM CLINICAL HISTORY:PICC line repositioned, check placement COMPARISON: 12/22/2016 FINDINGS:Right-sided PICC line has been withdrawn, so that the tip is now just into the upper superior vena cava. Stable mild cardiomegaly. Stable mildly prominent pulmonary vasculature. Aortic and mediastinal contours are stable. Descending aorta is tortuous with intimal calcification. Low volume inspiration exam. Hazy density at the right lung base may relate to the low volume, or represent some degree of atelectasis or infiltrate. No other areas of abnormal lung density. No effusion. IMPRESSION - 1. Interval withdrawal of right PICC line, to the level of the upper superior vena cava. 2. Hazy density at the right lung base which may relate to low volume inspiration or represents some degree of atelectasis or infiltrate. Dictated and Signed by: Miguel Ventura MD Electronically signed: 12/25/2016 2:42 PM XR Femur Right 2+Vw Narrative FIVE VIEWS RIGHT FEMUR 12/25/2016 5:38 PM CLINICAL HISTORY: post op ORIF COMPARISON: Intraoperative spot films December 19, radiographs December 18 FINDINGS: An intramedullary yulisa extends from the level of the greater trochanter into the region of the femoral notch. A solitary proximal anchoring screw and two distal anchoring screws are present. The hardware appears well seated and bridges a previously visible comminuted mid diaphyseal fracture. There is markedly improved alignment of the fracture fragments with only mild residual displacement of the dominant fragments persisting. A nondisplaced oblique fracture of the distal diaphysis is again visible anteriorly on the lateral view. No new fracture or subluxation is apparent. There is generalized osteopenia. Left femoral ORIF hardware is partially imaged. The hip and sacroiliac joints, pubic symphysis and right femorotibial and patellofemoral compartments are maintained. A suprapatellar right knee effusion is suggested. There is extensive iliofemoral vascular calcification. Skin samy project lateral to the right hip and gluteal region, along with the distal thigh. IMPRESSION - 1. IMPROVED ALIGNMENT OF THE MID RIGHT FEMORAL DIAPHYSEAL FRACTURE STATUS POST ORIF. NONDISPLACED FRACTURE OF THE DISTAL DIAPHYSIS IS AGAIN VISIBLE. 2. KNEE EFFUSION. 3. OSTEOPENIA AND VASCULAR CALCIFICATION. Dictated and Signed by: Daniel Jordan MD Electronically signed: 12/25/2016 9:53 PM XR Hip Left 2-3 Views Narrative FOUR VIEWS LEFT HIP 12/25/2016 5:49 PM CLINICAL HISTORY: post op ORIF COMPARISON: Radiographs December 18, intraoperative spot films December 19 FINDINGS: An intramedullary yulisa again extends from the left greater trochanter to the mid femoral diaphysis, with a solitary mid anchoring screw and proximal anchoring nail extending into the femoral neck and head. The hardware appears well seated and bridges the previously visible comminuted, oblique intertrochanteric fracture. There is improved alignment of the dominant fragments, which demonstrate mild residual displacement. Proximal displacement of a fragment containing the lesser trochanter is apparent. Right femoral fixation hardware is partially imaged. There is generalized osteopenia and no new fracture or subluxation is apparent. The hip and sacroiliac joints and pubic symphysis are maintained. Iliofemoral vascular calcification is present. [place] project lateral to the hip and in the proximal thigh. A bladder catheter is apparent. IMPRESSION - 1. IMPROVED ALIGNMENT OF THE INTERTROCHANTERIC LEFT FEMUR FRACTURE WITH INTACT FIXATION HARDWARE. 2. OSTEOPENIA AND VASCULAR CALCIFICATION. Dictated and Signed by: Daniel Jordan MD Electronically signed: 12/25/2016 9:48 PM XR Chest AP Portable Narrative XR CHEST AP PORTABLE 12/30/2016 4:38 PM HISTORY: attempting to pull picc line. met resistance need image to confirm no kinks or loops in tubing. COMPARISON: 12/25/2016 Findings: There is a nonspecific mild diffuse reticular opacification pattern throughout both lungs. Cardiac silhouette appears mildly enlarged. Aortic calcifications are present. No evidence of pneumothorax or pleural effusion. No evidence of focal consolidation. Bones and soft tissues are unchanged. IMPRESSION - Right upper extremity approach PICC tip terminates in the right subclavian/innominate vein junction. Stable mild cardiomegaly. Mild interstitial prominence/reticular opacities seen scattered throughout both lungs, improved since 12/25/2016. Dictated and Signed by: Ralph Kennedy MD Electronically signed: 12/30/2016 9:46 PM Assessment and Plan: Mr. Arellano is a 86-year-old man with a history of a fib admitted 12/18/16 after a GLF resulti ng in right mid-shaft femoral and left intertrochanteric femur fractures resulting in impair ed mobility, transfers, and self-care. Pt now has deficits in coordination, ambulation, str ength, ADLs, and IADLs. Patients exam also consistent with a moderate peripheral neuropathy , which likely explains the progressively impaired balance [...] midodrine -Decrease metoprolol 50-->25mg BID -Cont amiodarone -Restart warfarin, as H/H has been stable -Cont heparin until INR theraputic -Cont atorvastatin #Resp - resolved hypoxic respiratory failure likely 2/2 volume overload -Daily weights, CVS as above #Delerium - stable, in setting of bilateral femur fractures -Avoid diphenhydramine, benzodiazepines, scopolamine, and metoclopramide. Limit LADLE WATCHER active medications using lowest effective dose. -Implement environmental modifications (window bed, maintain well-lit room during day, min imize nighttime disturbance, and keep calendars and clock visible). -OOB to chair TID with meals if able. #Urinary retention - U/A normal today, given age most likely BPH. I'm hesitant to start ta msulosin at this point due to continued orthostasis -Cont to monitor, continue intermittent cath for PVR's >400cc #Bilateral femur fractures - pain stable -WBAT BLE's -Cont PRN and oxycodone for pain #DVT prophylaxis: -see CVS above #Diet: Diet and Supplements Diet Diet general; Effective Now Number of Occurrences: Until Specified Order Comments: Health shakes with meals. Order Questions: Type Diet general #IV: accesses Active Peripheral IVs No matching active lines, drains, or airways #I/O: -Daily weights #Code Status: No Code. Individualized Overall Rehab Plan of Care: Medical Prognosis: Good Primary rehab dx: Orthopedic Disorders 03.01 Status post unilateral hip fracture and 02.20 Status post femur (shaft) fracture Comorbid conditions: Patient Active Problem List Diagnosis Atrial flutter Femur fracture, left Femur fracture, right Anticoagulant long-term use Acute diastolic heart failure Acute respiratory failure with hypoxia Atrial flutter with rapid ventricular response Postoperative hemorrhagic shock, initial encounter Elevated INR Delirium Prognosis for functional improvement: Good. Anticipated interventions: Daily intensive therapies The patient is at risk for the following complications if inpatient rehabilitation is not r eceived: -Falls with injuries -Inability to perform activities of daily living -Depression 2/2 new injury -DVT -Infection I have independently evaluated and examined the patient. And have formulated the plan as ou tlined below. This patient will require close daily supervision from a rehabilitation physic marie and would benefit from an interdisciplinary rehab team approach with the following antic ipated interventions: Rehabilitation medicine physician for daily monitoring of care, 24 hour availability for ac brisa medical issues, medication management, and therapeutic and diagnostic assessments. 24 hour rehabilitation nursing 7 days per week for: management/teaching of medications, bow el/bladder routine, skin care. PT for 90 minutes per day 5-6 days/week OT for 90 minutes per day 5-6 days/week SW for discharge planning, community resources, and family support. Functional Goals to be Achieved During Intensive Rehabilitation Program: mod I with ambulat ion, mod I with ADLs, supervision-min A with iADLs, mod I for toileting, and supervision wit h community access. Pt requires and can tolerate 3 hours of therapy per day, will participate in therapy and pathak s sufficient carryover to benefit from rehabilitation. The patient will benefit from comprehensive inpatient rehab therapies to address the functi onal goals above. I anticipate that this patient will make meaningful progress toward their rehab goals in a reasonable amount of time. Continued progress towards rehabilitation goals cannot be achieved at a lower level of care. Discharge Plan: home with family Estimated Length of Stay: 21 days This care plan will be updated as the patient condition changes and with input from the int erdisciplinary team. Follow up: -PCP: 1-2 weeks after d/c from hospital -Home therapy vs outpatient therapy TBD -Ortho TBD Sajan Hernandez MD 01/01/2017 14:03 Portions of this chart may have been created with [employer] voice recognition software. Occasi onal wrong-word or sound-alike substitutions may have occurred due to the inherent ness itations of voice recognition software. Please read the chart carefully and recognize, using context, where these substitutions have occurred documented in thi s encounter Consult Notes Rodrigo Webb MD - 01/14/2017 8:35 PM PDTAssociated Order(s): PROVIDER TO PROVIDER CONS ULT Urology CONSULTATION NOTE Pt. Name/Age/: Dora Arellano 86 y.o. 1930 Date of Admission: 12/31/2016 Date of Consultation: 01/14/2017 Requesting/Referring Physician: Dr. Staples Reason for Consultation: Opinion and advice regarding urinary retention Patient Active Problem List Diagnosis Atrial flutter Femur fracture, left Femur fracture, right Anticoagulant long-term use Acute diastolic heart failure Acute respiratory failure with hypoxia Atrial flutter with rapid ventricular response Postoperative hemorrhagic shock, initial encounter Elevated INR Delirium Benign prostatic hyperplasia with lower urinary tract symptoms Urinary retention due to benign prostatic hyperplasia History of Present Illness: Information is gathered from patient and past medical records Dora is an 86-year-old male admitted 12/18/2016 with bilateral femur fractures (right mids haft, left peritrochanteric). He underwent IM yulisa fixation of the right femur, and nail fix ation of the left peritrochanteric femur fracture by Dr. Mancuso on 12/19/2016. He is chronically anticoagulated for atrial fibrillation with Coumadin. Patient suffered h ypotension and hemorrhagic anemia requiring IV fluids and numerous units of PRBC which led t o acute diastolic heart failure and hypoxia. He has had an indwelling Velarde catheter, and has failed a voiding trial. He has been on Fl omax 0.8 mg daily. He had a major PVR of 250 cc today, I can't find record of any additiona l PVRs. At baseline, he has chronic obstructive voiding symptoms for which he used "super beta pros quiñonez." He states that this herbal remedy "worked terrific for him," but the Flomax medicati on that he is taking here "isn't doing anything." At home he notices nocturia 2. He has urinary frequency every one to 3 hours. He denies any dysuria or hematuria. He denies any urinary incontinence. He denies any urinary tract infections. He has never previously had prostate or bladder surgery. He states that his bowels are now working normally. He is having a bowel movement on a khai ly basis. He denies any fecal incontinence. He is now bearing weight, and has been participating in therapies. He states he is ambulat ing with the assistance of a walker 3 times a day. 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 Urinary retention Past Surgical History: Past Surgical History: Procedure Laterality Date CATARACT REMOVAL WITH IMPLANT Bilateral CORONARY ANGIOPLASTY without stent [facility] OR Approx [id number] Femoral artery bypass and Hx of stent FEMUR FRACTURE SURGERY Right 12/19/2016 Procedure: ORIF IM RODDING FEMORAL ANTEGRADE; Surgeon: Lambert Mancuso MD; Location: [facility] MAIN OR FEMUR FRACTURE SURGERY Left 12/19/2016 Procedure: ORIF IM RODDING FEMORAL TROCHANTERIC NAIL; Surgeon: Lambert Mancuso MD; Locati on: [facility] MAIN OR Right [facility] Home Medications: Prescriptions Prior to Admission Medication Sig Dispense Refill amiodarone (PACERONE) 200 mg tablet Take 200 mg by mouth Daily. amLODIPine (NORVASC) 5 mg tablet Take 5 mg by mouth daily (after dinner). ascorbic acid (VITAMIN C) 500 mg tablet Take 500 mg by mouth Daily. atenolol (TENORMIN) 25 mg tablet Take 25 mg by mouth Daily. Takes 50 mg if HR is 100 or higher otherwise takes 25 mg oral daily atorvaSTATin (LIPITOR) 20 mg tablet Take 20 mg by mouth nightly. calcium-vitamin D (CALCIUM 600+D) 600 mg-200 units per tablet Take 1 tablet by mouth 2 times daily. Multiple Vitamins-Minerals (CENTRUM SILVER) TABS Take 1 tablet by mouth Daily. tocopherol (VITAMIN E) 400 units capsule Take 400 Units by mouth Daily. warfarin (COUMADIN) 3 MG tablet Take 3 mg by mouth daily (after dinner). Current Medications: Current Facility-Administered Medications Medication Dose Route Frequency Provider Last Rate Last Dose aluminum & magnesium hydroxide-simethicone (MAALOX PLUS REGULAR STRENGTH) 200-200-20 mg /5 mL suspension 30 mL 30 mL Oral Q4H PRN Sajan Hernandez MD amiodarone (PACERONE) tablet 200 mg 200 mg Oral Daily Sajan Hernandez MD 200 mg at 01/14/17 09 atorvaSTATin (LIPITOR) tablet 20 mg 20 mg [...] Sajan Hernandez MD 1,000 mg at 01/14/17 1848 metoprolol tartrate (LOPRESSOR) tablet 12.5 mg 12.5 mg Oral Daily Sajan Hernandez MD 12.5 mg at 01/14/17 0941 midodrine (PROAMATINE) tablet 10 mg 10 mg Oral TID Early Sajan Hernandez MD 10 m g at 01/14/17 1754 ondansetron (ZOFRAN ODT) disintegrating tablet 4 mg 4 mg Oral Q6H PRN Sajan cabrera MD oxyCODONE (ROXICODONE) tablet 5-10 mg 5-10 mg Oral Q4H PRN Sajan Hernandez MD 5 mg at 01/14/17 1754 polyethylene glycol (MIRALAX) powder 17 g 17 [...] Warfarin Radha Doherty, PharmD 2.5 mg at 01/14/17 1754 warfarin per pharmacy Other Pharmacy Consult Sajan Hernandez MD Allergies: Allergies Allergen Reactions Naproxen Other (See Comments) States "put me in the hospital with kidney failure" Lisinopril Olmesartan Penicillins Lips swell eyes swell shut and pruritis Family History: Family History Problem Relation Age of Onset Heart attack Father Social History: Social History Social History Marital status: Spouse name: N/A Number of children: N/A Years of education: N/A Occupational History Not on file. Social History Main Topics Smoking status: Never Smoker Smokeless tobacco: Never Used Alcohol use 0.6 oz/week 1 Cans of beer per week Drug use: No Sexual activity: Not on file Other Topics Concern Not on file Social History Narrative No narrative on file Exam: Most Recent Vital Signs: Temp: 35.7 C (96.3 F) BP: (!) 81/67 Pulse: 81 Resp: 16 SpO2: 94 % on Min/Max Temp past 24 hours:Temp Av.6 C (97.8 F) Min: 35.7 C (96.3 F) Max: 3 7.1 C (98.8 F) Weight most recent: Weight: 76.4 kg (168 lb 6.9 oz) BMI: Body mass index is 24.87 kg /m. Physical Examination: General: Elderly. Well nourished, well developed, alert, in no acute distress HEENT: Head normocephalic, EOMI. Pupils equal and round. Oropharynx is clear without nikolay thema or exudates. Neck: Supple, no lymphadenopathy or thyromegaly. Respiratory: Clear to auscultation bilaterally. Breathing unlabored. O2 sat 92% on room air. Abdomen: Soft, rotund, nontender, nondistended, no hepatosplenomegaly. Bladder nondistend ed. Back: No costovertebral angle tenderness. Genitourinary: External genitalia normal in appearance. Testicles are mildly atrophic bi laterally. Urethral meatus is normal in caliber. No penile lesion. No penile drainage and discharge or bleeding. Scrotum is supple with benign contents. No testicular or epididyma l or spermatic cord masses or lesions. Lymph: No palpable cervical or inguinal lymphadenopathy. Extremities: Warm and dry, 1+ ankle edema bilaterally. Neurological: Perianal sensation intact. Normal rectal sphincter tone. Awake alert, orie nted 3. Skin: Areas of ecchymosis on the forearms. Erythema on the legs extending onto the abdome n and trunk with a vesicle on the right anterior thigh. Psychiatric: Mood normal, affect appropriate. Anus and perineum: Normal in appearance. Rectal: No mass. Prostate is smooth, elastic, nontender, nonnodular. Prostate gland is si gnificantly enlarged with gland volume is estimated at 60-70 gm. Prostate is palpably benig n. No areas suspicious for malignancy. Lateral sulci are intact. Seminal vesicles are not palpable. Diagnostic Studies: Lab Results Component Value Date WBC 5.4 01/10/2017 HGB 11.5 (L) 01/10/2017 HCT 34.1 (L) 01/10/2017 MCV 88.7 01/10/2017 PLT 347 01/10/2017 Lab Results Component Value Date CREA 1.31 (H) 01/10/2017 BUN 23 (H) 01/10/2017 NA 134 (L) 01/10/2017 K 4.3 01/10/2017 CL 102 01/10/2017 CO2 26 01/10/2017 Lab Results Component Value Date ALT 49 (H) 01/01/2017 AST 40 01/01/2017 ALKPHOS 120 (H) 01/01/2017 BILITOT 1.0 01/01/2017 Lab Results Component Value Date COLORUA Yellow 01/10/2017 CLARITYUA Clear 01/10/2017 PHUR 6.0 01/10/2017 SPECIFICGRAV 1.017 01/10/2017 PROTUA 30 mg/dL (A) 01/10/2017 BLOODU Small (A) 01/10/2017 GLUCOSEU Negative 01/10/2017 KETONES Negative 01/10/2017 BILIRUBINUA Negative 01/10/2017 NITRITEUA Negative 01/10/2017 LEUKOESTUA Negative 01/10/2017 UROBILIUA Negative 01/10/2017 Impression: 1. Urinary retention. PVR earlier today was 250 cc. Multiple risk factors including redu oj mobility, use of narcotics, and marked prostatic hyperplasia. 2. Prostatic hyperplasia with long-standing lower urinary tract symptoms. 3. Azotemia. 4. Skin erythema. I'm not suspicious of cellulitis, but this could be a drug reaction. Recommendations: I don't know if his skin erythema is chronic or new, and I wouldnsuggest review of medicati ons which may cause a drug eruption. I agree with Dora's current management. Use of Flomax or 0.8 mg by mouth daily is approp riate. I advised Dora that his symptoms bladder emptying will likely improve as his ambulatory s tatus continues to improve. I agree with performing intermittent catheterization as needed. I told Dora that if he continues to fail voiding trials, he may need to be sent home with an indwelling catheter, or performing intermittent catheterization, to be followed by a TUR P or laser photo vaporization of the prostate gland in the future. Thank you! Electronically signed by: Rodrigo Webb 01/14/2017 [facility] documented in this en counter Miscellaneous Notes Plan of Elysia - Clarence Collier LICSW - 01/18/2017 5:02 PM PDTProblem: Discharge Plan [place] Goal: Patient will be discharged in a safe manner Outcome: Adequate for Discharge Date Met: 01/18/17 Patient was discharged yesterday from the inpatient rehab program back to his home in [facility]. The patient's came with a friend who drove to take him home. The patient's has macular degeneration. The patient was referred to [facility] for skille d nursing and physical therapy. Home health was called and the referral and medical informa tion was faxed to them. The patient needed a wheelchair and a referral was made to [facility] in [place] for the wheelchair. The patient promised to have a railing on his fron t steps installed which was supposed to be done this AM. The patient was given information regarding the equipment lending closet and [employer] in [place]. The patient received h is signed copy of his medicare important message and his Rehab Medical Passport.Electronical ly signed by: DONNA Solomon 01/18/2017 17:02 lan of Care - Cira Hurst OT - 01/17/2017 3:50 PM PDTProblem: Patient Care Overview (Adult) Goal: Care Team Goals & Evaluation PROBLEM-RELATED GOALS: 3. Geovany will call out appropriately for assistance and have no falls during hospitalization through 01/18/2017. 4. Geovany's pain will be controlled to 4/10 to allow for activity and rest through 01/18/2017 . 5. Geovany will eat 75-100% most meals and accept health shakes through 01/18/2017. 6. Geovany will have a bm qod while in rehab through 01/18/2017. 7. Geovany will void w/o difficulties after catheter removal by 01/18/2017. 8. Geovany's skin tears and abrasions will heal w/o s/sx infection 01/18/2017. 9. Geovany will transfer with 1 person A by 01/18/2017. 10.Geovany will be SBA- setup for his ADLs & functional mobility by 01/25/2017. 11. Geovany will be able to amb in room mod-I with FWW by 01/15/17. STRATEGY TO ACHIEVE GOALS: - Monitor for s/sx pain and medicate prn - Monitor for s/sx infection, clean wounds prn and perform dressing changes prn - Monitor bm's and medicate prn - Encourage po intake and ensure pt is drinking health shakes - Velarde cath care q shift. - Encourage independence with ambulation and ensure safe transfers - Active participation in OT sessions -Active participate with PT. Outcome: Improving Missed Visit Patient Information Patient Name: Dora Arellano Date of : 1930 Age: 86 y.o. The patient was unable to be seen for today's scheduled visit due to refusal d/t departing shortly. Plan: Pt dc'd today. No further IRF OT services. Electronically signed by: Cira uHrst OT, 01/17/2017 15:49 reatment Plan - Sabra Carrasquillo RN - 01/17/2017 1:50 PM PDTC/o pain to lower back and spasms, rx tramadol and r obaxin given. D/c home with and friend. Friend will be driving. reatment Plan - Sabra Gupta RN - 01/17/2017 1:45 PM PDTFamily in to take pt home, pt asked if he wanted to void and pt stated "i don't have to go right now and I urinated after lunch when I went to the BR". Pt sitting up in WC and refused to attempt to urinate prior to discharging and refused to have a bladder scan. Pt stated "if my bladder gets full I already know how to drain it and I do a very good job a t it". Family has catheters that were taken home yesterday and stated that she has beta dine. Lubricant provided. HH referrals have been made. reatment Plan - Sabra Gupta RN - 01/17/2017 1:30 PM PDTAV S reviewed w pt and family, prescriptions reviewed w family. F/u made w Dr. Galeas. Home h ealth will be following and pt aware about nursing coming to evaluate labs and IC. (catherer s (5) provided to pt yesterday and pt took home). Pt had a large bm after lunch and voi ded in BR+urinal prior to bm. P M PDTPlan of Elysia - Elli Durán PTA - 01/17/2017 12:19 PM PDT Problem: Patient Care Overview (Adult) Goal: Care Team Goals & Evaluation PROBLEM-RELATED GOALS: 3. Geovany will call out appropriately for assistance and have no falls during hospitalization through 01/18/2017. 4. Geovany's pain will be controlled to 4/10 to allow for activity and rest through 01/18/2017 . 5. Geovany will eat 75-100% most meals and accept health shakes through 01/18/2017. 6. Geovany will have a bm qod while in rehab through 01/18/2017. 7. Geovany will void w/o difficulties after catheter removal by 01/18/2017. 8. Geovany's skin tears and abrasions will heal w/o s/sx infection 01/18/2017. 9. Geovany will transfer with 1 person A by 01/18/2017. 10.Geovany will be SBA- setup for his ADLs & functional mobility by 01/25/2017. 11. Geovany will be able to amb in room mod-I with FWW by 01/15/17. STRATEGY TO ACHIEVE GOALS: - Monitor for s/sx pain and medicate prn - Monitor for s/sx infection, clean wounds prn and perform dressing changes prn - Monitor bm's and medicate prn - Encourage po intake and ensure pt is drinking health shakes - Velarde cath care q shift. - Encourage independence with ambulation and ensure safe transfers - Active participation in OT sessions -Active participate with PT. Outcome: Adequate for Discharge Date Met: 01/17/17 IRF Physical Therapy Plan of Care Treatment Note Summary: Pt amb 50x 4, Mod I. 10ft on uneven surfaces,wiht supervision and 1 touch with o ne slight LOB. 12 steps mod I. Picked up an objcet off the floor wiht the casserole preparer. Conitn ues to ahve neck pain. Brought pt a warm blanket for his neck. We will practice a car tra nsfer next session. Physical Therapy Discharge Recommendations are: Recommended discharge disposition: home with assist Post discharge physical therapy recommendation: home health, outpatient therapy, pt is mot ivated participant Equipment Recommendations: wheelchair Planned Interventions: balance training, bed mobility training, gait training, home exerci se program, patient/family education, orthotic fitting/training, transfer training, wheelcha ir management/propulsion training, ROM (Range of Motion), stair training, strengthening Frequency: (1-2x/day) Patient Status/Goals: Reflects last filed data and may be from multiple contributors. Bed Mobility Bed mobility completed on flat bed with mattress max inflated. Pt still requires increased time and effort to perform bed mobility. Assistive Device: bed rails Roll Left, Level of [place]: modified independent Roll Right, Level of [place]: modified independent Scoot/Bridge, Level of [place]: modified independent Supine to Sit, Level of [place]: modified independent Sit to Supine, Level of [place]: modified independent Safety Issues: decreased use of legs for bridging/pushing Impairments: strength decreased Transfers pt with good sequencing and handplacement Bed-Chair, Level of [place]: supervised Chair-Bed, Level of [place]: contact guard assist [id number], Assistive Device: other (see comments) (stand pivot with CGA.) Sit-Stand, Level of [place]: modified independent Stand-Sit, Level of [place]: modified independent [id number], Assistive Device: 2 wheeled walker (FWW) Maintain Weight Bearing Status: (WBAT) Safety Issues: weight-shifting ability decreased Impairments: decreased flexibility, ROM decreased, strength decreased, impaired balance, pa in, postural control impaired Gait Did not amb this AM due to pain in back, neck and his hands. Level of [place]: modified independent Assistive Device: 2 wheeled walker (FWW) Distance (feet): 50 ft x 4, 10ft uneven surface. Stairs pt SBA for stairs Number of Stairs: 12 Handrail Location: both sides Level of [place]: modified independent Assistive Device: 2 rails Technique Used: step to step (ascending), step to step (descending) Maintain Weight Bearing Status: (.) Safety Issues: balance decreased during turns, weight-shifting ability decreased Impairments: pain, impaired balance, strength decreased, motor control impaired, decreased flexibility, ROM decreased Wheelchair Mobility (.) Type: standard Surface: indoor Distance (feet): 150 Speed: (.) Level of [place]: set up required Propulsion Technique: bilateral UE's, bilateral LE's Components: brakes, foot rests/ foot platforms Components Management Assistance: minimum assist/contact guard assist (75% patients effort) Balance Sitting Balance: Static: good balance Sitting Balance: Dynamic: good balance Standing Balance: Static: (Fair (-) with B UE support on FWW) Standing Balance: Dynamic: (Fair (-) with B UE support on FWW) Therapeutic Exercise Instructed in HEP Bed exercises: ankle pumps, glut sets, hip abduction/adduction, heel slides, short arc quad s, straight leg raises Repetitions: x 20 Seated exercises: ankle pumps, hip abduction/adduction, marching, long arc quads, knee flex ion Repetitions: 10 Standing exercises: (standing in sanam steady, step-ups) Repetitions: (.) Repetitions: (.) Functional Exercises: (.) Repetitions: (.) Functional Endurance Impaired but improving; pt able to recover faster, so only required 1-2 min rest breaks bet ween activities. ROM BLEs unable to move actively through full range, pt reports pain in knees prevents movement at this time L LE ROM: AAROM,hip 0-60, knee 0-80,pt observed to be sitting w/ hips close to 90, pt does have posterior pelvic tilt in sitting to avoid full 90 at hips R LE ROM: AAROM, hip 0-80, knee 0-90, pt observed to be sitting w/ hips close to 90, pt mcdonald s have posterior pelvic tilt in sitting to avoid full 90 at hips Strength Unable to formally assess BLE mms however he is able to support full body weight against gr avity x 60 seconds in Sanam Steady L LE Strength: IP 2/5, quad 3-/5, HS 3+/5,DF/PF 5/5 R LE Strength: IP 3-/5, quad 3+/5, HS 4-/5, DF/PF 5/5 PT Goal Review Date Flowsheet Row Most Recent Value STG Review Date 01/08/17 at 01/01/2017 1115 LTG Review Date 01/22/17 at 01/01/2017 1115 All Bed Mobility Goal Flowsheet Row Most Recent Value STG Status discontinued at 01/04/2017 1200 STG [place] Level -- [.] at 01/04/2017 1200 LTG Status -- [.] at 01/04/2017 1200 LTG [place] Level -- [.] at 01/04/2017 1200 Roll Left/Right Goal Flowsheet Row Most Recent Value STG Status new, met at 01/08/2017 1435 STG [place] Level modified independent at 01/08/2017 1435 STG Assistive Device none at 01/08/2017 1435 LTG Status met at 01/13/2017 1339 LTG [place] Level independent at 01/08/2017 1435 Scoot/Bridge Goal Flowsheet Row Most Recent Value STG Status met at 01/04/2017 1200 STG [place] Level contact guard assist at 01/01/2017 1115 LTG Status met at 01/08/2017 1435 LTG [place] Level independent at 01/07/2017 1345 Chkvdk-Eyq-Jqszdq Goal Flowsheet Row Most Recent Value STG Status met at 01/06/2017 1200 STG [place] Level contact guard assist at 01/01/2017 1115 STG Assistive Device bed rails at 01/01/2017 1115 LTG Status progressing at 01/17/2017 1211 LTG [place] Level independent at 01/08/2017 1100 LTG Assistive Device bed rails at 01/01/2017 1115 Ktsykrxkl-Hsf-Dutozcfyc Goal Flowsheet Row Most Recent Value STG Status discontinued at 01/04/2017 1200 STG [place] Level -- [.] at 01/04/2017 1200 STG Assistive Device -- [.] at 01/04/2017 1200 LTG Status -- [.] at 01/04/2017 1200 LTG [place] Level -- [.] at 01/04/2017 1200 All Transfers Goal Flowsheet Row Most Recent Value STG Status met at 01/04/2017 1200 STG [place] Level contact guard assist at 01/01/2017 1115 STG Comments Using Sanam Travis at 01/01/2017 1115 LTG Status met at 01/17/2017 1211 LTG [place] Level modified independent at 01/01/2017 1115 LTG Assistive Device 2 wheeled walker (FWW) at 01/01/2017 1115 Gait Goal Flowsheet Row Most Recent Value STG Status met at 01/12/2017 1510 STG [place] Level minimum assist (75% patient effort) at 01/01/2017 1115 STG Assistive Device 2 wheeled walker (FWW) at 01/01/2017 1115 STG Distance (feet) 15 at 01/01/2017 1115 LTG Status met at 01/17/2017 1211 LTG [place] Level modified independent at 01/01/2017 1115 LTG Assistive Device 2 wheeled walker (FWW) at 01/01/2017 1115 LTG Distance (feet) 50 at 01/01/2017 1115 Stair Goal Flowsheet Row Most Recent Value STG Status met at 01/09/2017 1155 STG [place] Level minimum assist (75% patient effort) at 01/01/2017 1115 STG Assistive Device 2 rails at 01/01/2017 1115 STG Number of Stairs 8 at 01/01/2017 1115 LTG Status met at 01/17/2017 1211 LTG [place] Level modified independent at 01/01/2017 1115 LTG Assistive Device 2 rails at 01/01/2017 1115 LTG Number of Stairs 8 at 01/01/2017 1115 Wheelchair Goal Flowsheet Row Most Recent Value STG Status discontinued at 01/05/2017 1200 STG -- [.] at 01/05/2017 1200 LTG Status -- [.] at 01/05/2017 1200 Additional Goal #1 PT Flowsheet Row Most Recent Value STG Status met at 01/03/2017 1200 STG Pt will tolerate standing at Sanam Stedy x 1min w/ supervision only at 01/01/2017 1115 LTG Status met at 01/04/2017 1450 LTG pt kenneth standing with fww for 3 minutes supervised at 01/01/2017 1115 Electronically signed by: Elli Durán PTA, 01/17/2017 12:18 Goal Evaluation: lan of Care - For Clarence mims, TRAFFIC SURVEY TECHNICIAN - 01/17/2017 9:17 AM PDT Medical Passport NAME:Dora Arellano : 1930 Gender: male Extended Emergency Contact Information Primary Emergency Contact: Rivka Arellano Address: [address] [place], [place] [id number] [place] [address] Relation: Spouse Secondary Emergency Contact: Karthikeyan Arellano, DONNA [facility] Relation: Son Advance Directives: No - Information Given Attending Provider: Sajan Hernandez MD Insurance: Payor/Plan Subscr Sex Relation Sub. Ins. ID Effective Group Num 1. MEDICARE - [place]* DORA ARELLANO* 1930 Male [id number] 02/19/1996 [address] 2. [place]* DORA ARELLANO* 1930 Male [id number] [birth year] [id number] [address] [address] Hospital Preference: [facility] Personal Health History Allergies Allergen Reactions Naproxen Other (See Comments) States "put me in the hospital with kidney failure" Lisinopril Olmesartan Penicillins Lips swell eyes swell shut and pruritis There is no immunization history on file for this patient. 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 Urinary retention Past Surgical History: Procedure Laterality Date CATARACT REMOVAL WITH IMPLANT Bilateral CORONARY ANGIOPLASTY without stent [facility] [place] Approx [phone] Femoral artery bypass and Hx of stent FEMUR FRACTURE SURGERY Right 12/19/2016 Procedure: ORIF IM RODDING FEMORAL ANTEGRADE; Surgeon: Lambert Mancuso MD; Location: [facility] MAIN OR FEMUR FRACTURE SURGERY Left 12/19/2016 Procedure: ORIF IM RODDING FEMORAL TROCHANTERIC NAIL; Surgeon: Lambert Mancuso MD; Locati on: [facility] MAIN OR Right [facility] Social History Social History Marital status: Spouse name: N/A Number of children: N/A Years of education: N/A Social History Main Topics Smoking status: Never Smoker Smokeless tobacco: Never Used Alcohol use 0.6 oz/week 1 Cans of beer per week Drug use: No Sexual activity: Not on file Other Topics Concern Not on file Social History Narrative No narrative on file Functional Status Transfers Bed to Chair supervised Chair to Bed contact guard assist Sit to Stand stand by assist Gait Gait Comments: Did not amb this AM due to pain in back, neck and his hands. Level of [place]: stand by assist Assistive Device: 2 wheeled walker (FWW) Distance (feet): 100, 50,50, 100. Additional Documentation: stairs (group) Stairs Stairs, Comment: pt SBA for stairs Number of Stairs: 12 Handrail Location: both sides Level of [place]: stand by assist Assistive Device: 2 rails Technique Used: step to step (ascending), step to step (descending) Maintain Weight Bearing Status: (.) Safety Issues: balance decreased during turns, weight-shifting ability decreased Impairments: pain, impaired balance, strength decreased, motor control impaired, decreased flexibility, ROM decreased Dressing Upper Body UB Dressing Assess/Train, Comment: for clothing placement over FWW. Pt needed encouragemen t to collect his own clothes, pt stating "Thats why I have a at home" UB Dressing, Level of [place]: verbal cues required Assistive Device: none UB Dressing Assess/Train, Position: sitting UB Dressing Assess/Train, Impairments: strength decreased, impaired balance Lower Body LB Dressing Assess/Train, Comment: Pt conintues to require assist with socks/shoes LB Dressing, Level of [place]: minimal assist (75% patient effort) Assistive Device: casserole preparer, sock-aid LB Dressing Assess/Train, Position: sitting, standing LB Dressing Assess/Train, Impairments: strength decreased, impaired balance Bathing Bathing Assess/Train, Comment: pt completed shower w/o physical assist Bathing, Level of [place]: set up required, supervised (distant supervision) Assistive Device: grab bars, hand-held shower head, tub bench Bathing Assess/Train, Position: sitting Bathing Assess/Train, Impairments: strength decreased, impaired balance Diet Diet/Nutrition Prescription: general Swallowing Corrective Lens: Hearing Aid: lan of Care - Arely Pool COTA - 01/17/2017 7:53 AM PDTFormatting of this note might be differen t from the original. Problem: Patient Care Overview (Adult) Goal: Care Team Goals & Evaluation PROBLEM-RELATED GOALS: 3. eGovany will call out appropriately for assistance and have no falls during hospitalization through 01/18/2017. 4. Cryss pain will be controlled to 4/10 to allow for activity and rest through 01/18/2017 . 5. Geovany will eat 75-100% most meals and accept health shakes through 01/18/2017. 6. Geovany will have a bm qod while in rehab through 01/18/2017. 7. Geovany will void w/o difficulties after catheter removal by 01/18/2017. 8. Cryss skin tears and abrasions will heal w/o s/sx infection 01/18/2017. 9. Geovany will transfer with 1 person A by 01/18/2017. 10.Geovany will be SBA- setup for his ADLs & functional mobility by 01/25/2017. 11. Geovany will be able to amb in room mod-I with FWW by 01/15/17. STRATEGY TO ACHIEVE GOALS: - Monitor for s/sx pain and medicate prn - Monitor for s/sx infection, clean wounds prn and perform dressing changes prn - Monitor bm's and medicate prn - Encourage po intake and ensure pt is drinking health shakes - Velarde cath care q shift. - Encourage independence with ambulation and ensure safe transfers - Active participation in OT sessions -Active participate with PT. Outcome: Adequate for Discharge Date Met: 01/17/17 IRF Occupational Therapy Plan of Care Treatment Note Summary: Pt agreeable to work with OT this AM. Pt has progress with all his OT goals, but some have not been met, Pt will benefit from home health services and a bath aid if possibl e for a safe transition home. Occupational Therapy Discharge Recommendations are: Recommended discharge disposition: home with assist Post discharge occupational therapy recommendation: home health, pt is motivated participa nt Equipment Recommendations: casserole preparer, sock aide, tub bench Planned Interventions:ADL retraining, strengthening, transfer training, bed mobility traini ng, IADL retraining, balance training, prosthetic fitting/training, ROM (Range of Motion) (e jeanine mgmt as indicated) Recommended Frequency: (6-7x/week) Patient Status/Goals: Reflects last filed data and may be from multiple contributors. ADLs . pt completed shower w/o physical assist Bathing, Level of [place]: supervised Assistive Device: grab bars, long-handled sponge, casserole preparer, shower chair with back, hand-hel d shower head Bathing Assess/Train, Position: sitting Bathing Assess/Train, Impairments: strength decreased, impaired balance pt collected his own clothes this AM UB Dressing, Level of [place]: supervised Assistive Device: none UB Dressing Assess/Train, Position: sitting UB Dressing Assess/Train, Impairments: strength decreased, pain Pt continues to need assist with socks and shoes. LB Dressing, Level of [place]: minimal assist (75% patient effort) Assistive Device: casserole preparer LB Dressing Assess/Train, Position: sitting, standing LB Dressing Assess/Train, Impairments: strength decreased, impaired balance No physical assist required this AM Toileting, Level of [place]: supervised Assistive Device: grab bar, raised toilet seat Toileting Assess/Train, Position: sitting, standing Toileting Assess/Train, Impairments: strength decreased, impaired balance Pt completed standing at sink Grooming, Level of [place]: supervised Assistive Device: electric toothbrush, electric razor Grooming Assess/Train, Position: standing Grooming Assess/Train, Impairments: strength decreased, impaired balance Transfers Pt continues to need physical assist with step tub transfer d/t difficulty lifting leg high enough to clear tub and maintain standing balance. Bed-Chair, Level of [place]: supervised Chair-Bed, Level of [place]: supervised Dti-Nkayz-Bqa, Assistive Device: 2 wheeled walker (FWW) Sit-Stand, Level of [place]: supervised Stand-Sit, Level of [place]: supervised [id number], Assistive Device: 2 wheeled walker (FWW) Toilet, Level of [place]: supervised Toilet, Assistive Device: 2 wheeled walker (FWW), grab bars, seat riser Tub, Level of [place]: minimal assist (75% patient effort) Tub, Assistive Device: grab bars, 2 wheeled walker (FWW), shower chair Maintain Weight Bearing Status: other (see comments) (Assist to get L LE out of tub from st anding) Safety Issues: weight-shifting ability decreased Impairments: decreased flexibility, ROM decreased, strength decreased, impaired balance, pa in, postural control impaired OT Goal Review Date Flowsheet Row Most Recent Value STG Review Date 01/08/17 at 01/08/2017 0935 LTG Review Date 01/25/17 at 01/08/2017 0935 Grooming Goal Flowsheet Row Most Recent Value STG Status met at 01/15/2017 1306 STG [place] Level stand by assist at 01/04/2017 1455 STG Position sitting in chair [at sink] at 01/04/2017 1455 STG Adaptive Equipment none at 01/04/2017 1455 LTG Status progressing at 01/17/2017 0702 LTG [place] Level modified independent at 01/08/2017 0935 LTG Position -- [sitting at sink] at 01/04/2017 1455 Bathing Goal Flowsheet Row Most Recent Value STG Status met at 01/11/2017 0805 STG [place] Level contact guard assist at 01/08/2017 0935 STG Adaptive Equpiment shower chair, tub bench at 01/08/2017 0935 LTG Status met at 01/16/2017 0810 LTG [place] Level stand by assist at 01/08/2017 0935 UB Dressing Goal Flowsheet Row Most Recent Value STG Status met at 01/11/2017 0805 STG [place] Level stand by assist at 01/01/2017 1338 LTG Status met at 01/15/2017 1306 LTG [place] Level set up required at 01/01/2017 1338 LB Dressing Goal Flowsheet Row Most Recent Value STG Status not met at 01/17/2017 0702 STG [place] Level contact guard assist at 01/08/2017 0935 STG Adaptive Equipment casserole preparer, sock-aid at 01/08/2017 0935 LTG Status not met at 01/17/2017 0702 LTG [place] Level set up required at 01/08/2017 0935 Toileting Goal Flowsheet Row Most Recent Value STG Status met at 01/17/2017 0702 STG [place] Level minimum assist (75% patient effort) at 01/01/2017 1338 LTG Status met at 01/17/2017 0702 LTG [place] Level stand by assist at 01/08/2017 0935 Toilet Transfer Goal Flowsheet Row Most Recent Value STG Status met at 01/17/2017 0702 STG [place] Level minimum assist (75% patient effort) at 01/01/2017 1338 LTG Status met at 01/17/2017 0702 LTG [place] Level supervised at 01/08/2017 0935 Tub/Shower Transfer Goal Flowsheet Row Most Recent Value Tub/Shower Type tub/shower combo at 01/08/2017 0935 STG Status met at 01/10/2017 1809 STG [place] Level minimum assist (75% patient effort) at 01/03/2017 1909 STG Assistive Device tub bench at 01/03/2017 1909 LTG Status not met at 01/17/2017 0702 LTG [place] Level modified independent at 01/08/2017 0935 LTG Assistive Device tub bench at 01/08/2017 0935 Additional Goals #1 OT Flowsheet Row Most Recent Value LTG Status met at 01/14/2017 1714 LTG Pt will demonstrate ability to complete HEP c SBA. at 01/14/2017 1714 Electronically signed by: Arely Pool, Certified Health Care Marketing Manager, 2016 7:02 lan of Care - Darling Vivar RN - 01/17/2017 4:22 AM PDTProblem: Patient Care Overview (Adult) Goal: Care Team Goals & Evaluation PROBLEM-RELATED GOALS: 3. Geovany will call out appropriately for assistance and have no falls during hospitalization through 01/18/2017. 4. Geovany's pain will be controlled to 4/10 to allow for activity and rest through 01/18/2017 . 5. Geovany will eat 75-100% most meals and accept health shakes through 01/18/2017. 6. Geovany will have a bm qod while in rehab through 01/18/2017. 7. Geovany will void w/o difficulties after catheter removal by 01/18/2017. 8. Geovany's skin tears and abrasions will heal w/o s/sx infection 01/18/2017. 9. Geovany will transfer with 1 person A by 01/18/2017. 10.Geovany will be SBA- setup for his ADLs & functional mobility by 01/25/2017. 11. Geovany will be able to amb in room mod-I with FWW by 01/15/17. STRATEGY TO ACHIEVE GOALS: - Monitor for s/sx pain and medicate prn - Monitor for s/sx infection, clean wounds prn and perform dressing changes prn - Monitor bm's and medicate prn - Encourage po intake and ensure pt is drinking health shakes - Velarde cath care q shift. - Encourage independence with ambulation and ensure safe transfers - Active participation in OT sessions -Active participate with PT. Outcome: Improving Goal Evaluation: Geovany continues to be A & O. C/o back ache, PRN robaxen given . Was able to straight cath h imself x1. His left has a chronic tremble but he was able to cath himself with success, extr a time given, some verbal cueing. +2 edema of bilateral hips. Brisk cap refill of BLE, pulse s palpable. Voiding during the night in urinal. SBA w FWW when OOB. Last BM 01/14. Stool soft eners given. VSS, afebrile. Calls appropriately. No falls/injury this shift. lan of Care - Elli Lim PTA - 01/16/2017 5:13 PM PDTFormatting of this note might be different from dena arredondo original. Problem: Patient Care Overview (Adult) Goal: Care Team Goals & Evaluation PROBLEM-RELATED GOALS: 3. Geovany will call out appropriately for assistance and have no falls during hospitalization through 01/18/2017. 4. Geovany's pain will be controlled to 4/10 to allow for activity and rest through 01/18/2017 . 5. Geovany will eat 75-100% most meals and accept health shakes through 01/18/2017. 6. Geovany will have a bm qod while in rehab through 01/18/2017. 7. Geovany will void w/o difficulties after catheter removal by 01/18/2017. 8. Cryss skin tears and abrasions will heal w/o s/sx infection 01/18/2017. 9. Geovany will transfer with 1 person A by 01/18/2017. 10.Geovany will be SBA- setup for his ADLs & functional mobility by 01/25/2017. 11. Geovany will be able to amb in room mod-I with FWW by 01/15/17. STRATEGY TO ACHIEVE GOALS: - Monitor for s/sx pain and medicate prn - Monitor for s/sx infection, clean wounds prn and perform dressing changes prn - Monitor bm's and medicate prn - Encourage po intake and ensure pt is drinking health shakes - Velarde cath care q shift. - Encourage independence with ambulation and ensure safe transfers - Active participation in OT sessions -Active participate with PT. IRF Physical Therapy Plan of Care Treatment Note Summary: Pt seen this PM for seated exercises. Did ten reps of each. Continues to compla in of back pain. Good participation this afternoon. Physical Therapy Discharge Recommendations are: Recommended discharge disposition: home with assist Post discharge physical therapy recommendation: home health, outpatient therapy, pt is mot ivated participant Equipment Recommendations: wheelchair Planned Interventions: balance training, bed mobility training, gait training, home exerci se program, patient/family education, orthotic fitting/training, transfer training, wheelcha ir management/propulsion training, ROM (Range of Motion), stair training, strengthening Frequency: (1-2x/day) Patient Status/Goals: Reflects last filed data and may be from multiple contributors. Bed Mobility Bed mobility completed on flat bed with mattress max inflated. Pt still requires increased time and effort to perform bed mobility. Assistive Device: bed rails Roll Left, Level of [place]: supervised Roll Right, Level of [place]: supervised Scoot/Bridge, Level of [place]: stand by assist Supine to Sit, Level of [place]: supervised Sit to Supine, Level of [place]: supervised Safety Issues: decreased use of legs for bridging/pushing Impairments: strength decreased, ROM decreased Transfers pt with good sequencing and handplacement Bed-Chair, Level of [place]: supervised Chair-Bed, Level of [place]: contact guard assist [id number], Assistive Device: other (see comments) (stand pivot with CGA.) Sit-Stand, Level of [place]: contact guard assist, verbal cues required Stand-Sit, Level of [place]: contact guard assist, verbal cues required [id number], Assistive Device: 2 wheeled walker (FWW) Maintain Weight Bearing Status: (WBAT) Safety Issues: weight-shifting ability decreased Impairments: decreased flexibility, ROM decreased, strength decreased, impaired balance, pa in, postural control impaired Gait Did not amb this AM due to pain in back, neck and his hands. Level of [place]: stand by assist Assistive Device: 2 wheeled walker (FWW) Distance (feet): 100, 50,50, 100. Stairs pt SBA for stairs Number of Stairs: 12 Handrail Location: both sides Level of [place]: stand by assist Assistive Device: 2 rails Technique Used: step to step (ascending), step to step (descending) Maintain Weight Bearing Status: (.) Safety Issues: balance decreased during turns, weight-shifting ability decreased Impairments: pain, impaired balance, strength decreased, motor control impaired, decreased flexibility, ROM decreased Wheelchair Mobility (.) Type: standard Surface: indoor Distance (feet): 150 Speed: (.) Level of [place]: set up required Propulsion Technique: bilateral UE's, bilateral LE's Components: brakes, foot rests/ foot platforms Components Management Assistance: minimum assist/contact guard assist (75% patients effort) Balance Sitting Balance: Static: good balance Sitting Balance: Dynamic: good balance Standing Balance: Static: (Fair (-) with B UE support on FWW) Standing Balance: Dynamic: (Fair (-) with B UE support on FWW) Therapeutic Exercise Instructed in HEP Bed exercises: ankle pumps, glut sets, hip abduction/adduction, heel slides, short arc quad s, straight leg raises Repetitions: x 20 Seated exercises: ankle pumps, hip abduction/adduction, marching, long arc quads, knee flex ion Repetitions: 10 Standing exercises: (standing in sanam steady, step-ups) Repetitions: (.) Repetitions: (.) Functional Exercises: (.) Repetitions: (.) Functional Endurance Impaired but improving; pt able to recover faster, so only required 1-2 min rest breaks bet ween activities. ROM BLEs unable to move actively through full range, pt reports pain in knees prevents movement at this time L LE ROM: AAROM,hip 0-60, knee 0-80,pt observed to be sitting w/ hips close to 90, pt does have posterior pelvic tilt in sitting to avoid full 90 at hips R LE ROM: AAROM, hip 0-80, knee 0-90, pt observed to be sitting w/ hips close to 90, pt mcdonald s have posterior pelvic tilt in sitting to avoid full 90 at hips Strength Unable to formally assess BLE mms however he is able to support full body weight against gr avity x 60 seconds in Sanam Steady L LE Strength: IP 2/5, quad 3-/5, HS 3+/5,DF/PF 5/5 R LE Strength: IP 3-/5, quad 3+/5, HS 4-/5, DF/PF 5/5 PT Goal Review Date Flowsheet Row Most Recent Value STG Review Date 01/08/17 at 01/01/2017 1115 LTG Review Date 01/22/17 at 01/01/2017 1115 All Bed Mobility Goal Flowsheet Row Most Recent Value STG Status discontinued at 01/04/2017 1200 STG [place] Level -- [.] at 01/04/2017 1200 LTG Status -- [.] at 01/04/2017 1200 LTG [place] Level -- [.] at 01/04/2017 1200 Roll Left/Right Goal Flowsheet Row Most Recent Value STG Status new, met at 01/08/2017 1435 STG [place] Level modified independent at 01/08/2017 1435 STG Assistive Device none at 01/08/2017 1435 LTG Status met at 01/13/2017 1339 LTG [place] Level independent at 01/08/2017 1435 Scoot/Bridge Goal Flowsheet Row Most Recent Value STG Status met at 01/04/2017 1200 STG [place] Level contact guard assist at 01/01/2017 1115 LTG Status met at 01/08/2017 1435 LTG [place] Level independent at 01/07/2017 1345 [id number] Goal Flowsheet Row Most Recent Value STG Status met at 01/06/2017 1200 STG [place] Level contact guard assist at 01/01/2017 1115 STG Assistive Device bed rails at 01/01/2017 1115 LTG Status progressing at 01/15/2017 1206 LTG [place] Level independent at 01/08/2017 1100 LTG Assistive Device bed rails at 01/01/2017 1115 Czfvimxoo-Whs-Eevzrxqce Goal Flowsheet Row Most Recent Value STG Status discontinued at 01/04/2017 1200 STG [place] Level -- [.] at 01/04/2017 1200 STG Assistive Device -- [.] at 01/04/2017 1200 LTG Status -- [.] at 01/04/2017 1200 LTG [place] Level -- [.] at 01/04/2017 1200 All Transfers Goal Flowsheet Row Most Recent Value STG Status met at 01/04/2017 1200 STG [place] Level contact guard assist at 01/01/2017 1115 STG Comments Using Sanam Travis at 01/01/2017 1115 LTG Status progressing at 01/15/2017 1206 LTG [place] Level modified independent at 01/01/2017 1115 LTG Assistive Device 2 wheeled walker (FWW) at 01/01/2017 1115 Gait Goal Flowsheet Row Most Recent Value STG Status met at 01/12/2017 1510 STG [place] Level minimum assist (75% patient effort) at 01/01/2017 1115 STG Assistive Device 2 wheeled walker (FWW) at 01/01/2017 1115 STG Distance (feet) 15 at 01/01/2017 1115 LTG Status progressing at 01/15/2017 1206 LTG [place] Level modified independent at 01/01/2017 1115 LTG Assistive Device 2 wheeled walker (FWW) at 01/01/2017 1115 LTG Distance (feet) 50 at 01/01/2017 1115 Stair Goal Flowsheet Row Most Recent Value STG Status met at 01/09/2017 1155 STG [place] Level minimum assist (75% patient effort) at 01/01/2017 1115 STG Assistive Device 2 rails at 01/01/2017 1115 STG Number of Stairs 8 at 01/01/2017 1115 LTG Status progressing at 01/14/2017 1640 LTG [place] Level modified independent at 01/01/2017 1115 LTG Assistive Device 2 rails at 01/01/2017 1115 LTG Number of Stairs 8 at 01/01/2017 1115 Wheelchair Goal Flowsheet Row Most Recent Value STG Status discontinued at 01/05/2017 1200 STG -- [.] at 01/05/2017 1200 LTG Status -- [.] at 01/05/2017 1200 Additional Goal #1 PT Flowsheet Row Most Recent Value STG Status met at 01/03/2017 1200 STG Pt will tolerate standing at Sanam Stedy x 1min w/ supervision only at 01/01/2017 1115 LTG Status met at 01/04/2017 1450 LTG pt kenneth standing with fww for 3 minutes supervised at 01/01/2017 1115 Electronically signed by: Elli Durán PTA, 01/16/2017 17:12 Goal Evaluation: lan of Care - Carine Gonzales RN - 01/16/2017 4:39 PM PDTProblem: Patient Care Overview (Adult) Goal: Care Team Goals & Evaluation PROBLEM-RELATED GOALS: 3. Geovany will call out appropriately for assistance and have no falls during hospitalization through 01/18/2017. 4. Geovany's pain will be controlled to 4/10 to allow for activity and rest through 01/18/2017 . 5. Geovany will eat 75-100% most meals and accept health shakes through 01/18/2017. 6. Geovany will have a bm qod while in rehab through 01/18/2017. 7. Geovany will void w/o difficulties after catheter removal by 01/18/2017. 8. Cryss skin tears and abrasions will heal w/o s/sx infection 01/18/2017. 9. Geovany will transfer with 1 person A by 01/18/2017. 10.Geovany will be SBA- setup for his ADLs & functional mobility by 01/25/2017. 11. Geovany will be able to amb in room mod-I with FWW by 01/15/17. STRATEGY TO ACHIEVE GOALS: - Monitor for s/sx pain and medicate prn - Monitor for s/sx infection, clean wounds prn and perform dressing changes prn - Monitor bm's and medicate prn - Encourage po intake and ensure pt is drinking health shakes - Velarde cath care q shift. - Encourage independence with ambulation and ensure safe transfers - Active participation in OT sessions -Active participate with PT. Outcome: Improving Goal Evaluation: alert and pleasant one person sba with fww c/ back pain muscle relaxant given drsgs to ski n tears intact Continue to monitor pvr's has not needed straight cathed today bm 2 days ago miralax given lan of Care - Kaylene Hurst OT - 01/16/2017 4:19 PM PDTFormatting of this note might be different from the rand alberto. Problem: Patient Care Overview (Adult) Goal: Care Team Goals & Evaluation PROBLEM-RELATED GOALS: 3. Geovany will call out appropriately for assistance and have no falls during hospitalization through 01/18/2017. 4. Geovany's pain will be controlled to 4/10 to allow for activity and rest through 01/18/2017 . 5. Geovany will eat 75-100% most meals and accept health shakes through 01/18/2017. 6. Geovany will have a bm qod while in rehab through 01/18/2017. 7. Geovany will void w/o difficulties after catheter removal by 01/18/2017. 8. Geovany's skin tears and abrasions will heal w/o s/sx infection 01/18/2017. 9. Geovany will transfer with 1 person A by 01/18/2017. 10.Geovany will be SBA- setup for his ADLs & functional mobility by 01/25/2017. 11. Geovany will be able to amb in room mod-I with FWW by 01/15/17. STRATEGY TO ACHIEVE GOALS: - Monitor for s/sx pain and medicate prn - Monitor for s/sx infection, clean wounds prn and perform dressing changes prn - Monitor bm's and medicate prn - Encourage po intake and ensure pt is drinking health shakes - Velarde cath care q shift. - Encourage independence with ambulation and ensure safe transfers - Active participation in OT sessions -Active participate with PT. Outcome: Improving IRF Occupational Therapy Plan of Care Treatment Note Summary: Pt encountered supine in bed, complaining of increased pain this pm. Pt required SBA to reach seated EOB. Pt engaged in functional mobility ~ 30 feet c SBA and FWW. Pt requi red vcs to complete safe transfer in chair. Pt able to lead OT in light UE HEP c vcs and SBA . Pt engaged in kitchen mobility excercise, able to complete c SBA and vcs for safety. D/t l imited activity tolerance, continual need for SBA and vcs, OT reccomends assisted living. Pt aware of this reccomendation, demonstrated understanding and refused. Pt will continue to b enefit from skilled OT services to increase ADL I, activity tolerance and safety upon return to home. Occupational Therapy Discharge Recommendations are: Recommended discharge disposition: home with assist Post discharge occupational therapy recommendation: home health Equipment Recommendations: 2 wheeled walker (FWW), casserole preparer, sock aide, tub bench Planned Interventions:ADL retraining, strengthening, transfer training, bed mobility traini ng, IADL retraining, balance training, prosthetic fitting/training, ROM (Range of Motion) (e jeanine mgmt as indicated) Recommended Frequency: (6-7x/week) Patient Status/Goals: Reflects last filed data and may be from multiple contributors. ADLs Addressed this am. Therapeutic Exercise Pt able to lead OT in light UE HEP c 3 lb weight. Bed Mobility SBA, requires increase time. Assistive Device: none Roll Left, Level of [place]: stand by assist Roll Right, Level of [place]: stand by assist Scoot/Bridge, Level of [place]: stand by assist Supine to Sit, Level of [place]: stand by assist Sit to Supine, Level of [place]: stand by assist Safety Issues: decreased use of legs for bridging/pushing Impairments: strength decreased, ROM decreased Transfers SBA and vcs for safety c FWW. Sit-Stand, Level of [place]: stand by assist Stand-Sit, Level of [place]: stand by assist [id number], Assistive Device: 2 wheeled walker (FWW) Maintain Weight Bearing Status: other (see comments) (Assist to get L LE out of tub from st anding) Safety Issues: weight-shifting ability decreased Impairments: decreased flexibility, ROM decreased, strength decreased, impaired balance, pa in, postural control impaired OT Goal Review Date Flowsheet Row Most Recent Value STG Review Date 01/08/17 at 01/08/2017 0935 LTG Review Date 01/25/17 at 01/08/2017 0935 Grooming Goal Flowsheet Row Most Recent Value STG Status met at 01/15/2017 1306 STG [place] Level stand by assist at 01/04/2017 1455 STG Position sitting in chair [at sink] at 01/04/2017 1455 STG Adaptive Equipment none at 01/04/2017 1455 LTG Status progressing at 01/16/2017 0810 LTG [place] Level modified independent at 01/08/2017 0935 LTG Position -- [sitting at sink] at 01/04/2017 1455 Bathing Goal Flowsheet Row Most Recent Value STG Status met at 01/11/2017 0805 STG [place] Level contact guard assist at 01/08/2017 0935 STG Adaptive Equpiment shower chair, tub bench at 01/08/2017 0935 LTG Status met at 01/16/2017 0810 LTG [place] Level stand by assist at 01/08/2017 0935 UB Dressing Goal Flowsheet Row Most Recent Value STG Status met at 01/11/2017 0805 STG [place] Level stand by assist at 01/01/2017 1338 LTG Status met at 01/15/2017 1306 LTG [place] Level set up required at 01/01/2017 1338 LB Dressing Goal Flowsheet Row Most Recent Value STG Status progressing at 01/16/2017 0810 STG [place] Level contact guard assist at 01/08/2017 0935 STG Adaptive Equipment casserole preparer, sock-aid at 01/08/2017 0935 LTG Status progressing at 01/16/2017 0810 LTG [place] Level set up required at 01/08/2017 0935 Toileting Goal Flowsheet Row Most Recent Value STG Status continued at 01/16/2017 0810 STG [place] Level minimum assist (75% patient effort) at 01/01/2017 1338 LTG Status continued at 01/13/2017 0800 LTG [place] Level stand by assist at 01/08/2017 0935 Toilet Transfer Goal Flowsheet Row Most Recent Value STG Status continued at 01/16/2017 0810 STG [place] Level minimum assist (75% patient effort) at 01/01/2017 1338 LTG Status continued at 01/16/2017 0810 LTG [place] Level supervised at 01/08/2017 0935 Tub/Shower Transfer Goal Flowsheet Row Most Recent Value Tub/Shower Type tub/shower combo at 01/08/2017 0935 STG Status met at 01/10/2017 1809 STG [place] Level minimum assist (75% patient effort) at 01/03/2017 1909 STG Assistive Device tub bench at 01/03/2017 1909 LTG Status progressing at 01/13/2017 0800 LTG [place] Level modified independent at 01/08/2017 0935 LTG Assistive Device tub bench at 01/08/2017 0935 Additional Goals #1 OT Flowsheet Row Most Recent Value LTG Status met at 01/14/2017 1714 LTG Pt will demonstrate ability to complete HEP c SBA. at 01/14/2017 1714 Electronically signed by: Cira Hurst OT, 01/16/2017 16:17 lan of Care - Michelle So, Speech Pathologist - 01/16/2017 10:34 AM PDT Problem: Patient Care Overview (Adult) Goal: Care Team Goals & Evaluation PROBLEM-RELATED GOALS: 3. Geovany will call out appropriately for assistance and have no falls during hospitalization through 01/18/2017. 4. Cryss pain will be controlled to 4/10 to allow for activity and rest through 01/18/2017 . 5. Geovany will eat 75-100% most meals and accept health shakes through 01/18/2017. 6. Geovany will have a bm qod while in rehab through 01/18/2017. 7. Geovany will void w/o difficulties after catheter removal by 01/18/2017. 8. Geovany's skin tears and abrasions will heal w/o s/sx infection 01/18/2017. 9. Geovany will transfer with 1 person A by 01/18/2017. 10.Geovany will be SBA- setup for his ADLs & functional mobility by 01/25/2017. 11. Geovany will be able to amb in room mod-I with FWW by 01/15/17. STRATEGY TO ACHIEVE GOALS: - Monitor for s/sx pain and medicate prn - Monitor for s/sx infection, clean wounds prn and perform dressing changes prn - Monitor bm's and medicate prn - Encourage po intake and ensure pt is drinking health shakes - [facility] q shift. - Encourage independence with ambulation and ensure safe transfers - Active participation in OT sessions -Active participate with PT. Outcome: Improving IRF Speech Therapy Plan of Care Initial Evaluation Note Summary: Pt upright in bed for cognitive assessment following care team report of difficu lty recalling precautions and following directions. Pt alert and cooperative, stating "You'l l find I'm very intelligent." Pt noted to be significantly [place], and is without hearing aids. He reported that he feels he cannot tolerate anything in his ears. Pt completed the Cognist at which showed a mild moderate impairment in visual spatial skills, and achieved WNL in all other areas other than language repetition as he needed 2+ stimulus opportunities before sa soren the sentence exactly accurately suspected from hearing impairment. ASSISTANCE COORDINATOR reviewed the res ults with the Pt and he questioned why the assessment was ordered and after ASSISTANCE COORDINATOR explanation, he stated he feels the issue is his hearing and not always asking for clarification. OT/ PT A reported no cognitive deficits noted during their sessions. ASSISTANCE COORDINATOR explained that [place] is minerva elated with cognitive decline per research. ASSISTANCE COORDINATOR rec'd he have a hearing assessment to improv e communication and he verbalized understanding however did not agree. ASSISTANCE COORDINATOR suggested strateg ies to staff to improve understanding when communication with this Pt. See detailed scored carol pearson. ASSISTANCE COORDINATOR rec'd DC from skilled ASSISTANCE COORDINATOR services at this time. MD edwards. Cognistat Date: 01/16/2017 Subtest Severity Notes/Description Orientation WNL 12/12 Attention WNL Passed screener Speech Sample WNL Good inference, speech, language Comprehension WNL Passed screener Repetition Moderate impairment 7/12 unable to repeat exactly d/t difficulty with hearing st imulus items Naming WNL 8/8 Constructional Ability Moderate impairment 2/6 Completed items but not within time frame ne eded for score Memory WNL 10/12 Calculations WNL 3/4 Reasoning WNL Passed screener Judgment WNL 5/6 Speech Language Pathology Discharge Recommendations are: Recommended discharge disposition: home with family/caregiver Post discharge speech language pathology recommendation: no further Speech Therapy Planned Interventions: compensatory strategies, patient/caregiver education Recommended Frequency: (Eval only) Cognition Goal Flowsheet Row Most Recent Value STG Status new, met at 01/16/2017 1439 STG Pt will complete cognitive communication assessment to determine presence of cognitiv e impairment. at 01/16/2017 1439 Electronically signed by: Michelle Eaton, Speech Pathologist, 01/16/2017 14:43 G oal Evaluation: TPlan of Care - Luis Armando Elli Marrero, DIGITAL ADVERTISING ANALYST - 01/16/2017 9:29 AM PDTFormatting of this note migh t be different from the original. Problem: Patient Care Overview (Adult) Goal: Care Team Goals & Evaluation PROBLEM-RELATED GOALS: 3. Geovany will call out appropriately for assistance and have no falls during hospitalization through 01/18/2017. 4. Geovany's pain will be controlled to 4/10 to allow for activity and rest through 01/18/2017 . 5. Geovany will eat 75-100% most meals and accept health shakes through 01/18/2017. 6. Geovany will have a bm qod while in rehab through 01/18/2017. 7. Geovany will void w/o difficulties after catheter removal by 01/18/2017. 8. Geovany's skin tears and abrasions will heal w/o s/sx infection 01/18/2017. 9. Geovany will transfer with 1 person A by 01/18/2017. 10.Geovany will be SBA- setup for his ADLs & functional mobility by 01/25/2017. 11. Geovany will be able to amb in room mod-I with FWW by 01/15/17. STRATEGY TO ACHIEVE GOALS: - Monitor for s/sx pain and medicate prn - Monitor for s/sx infection, clean wounds prn and perform dressing changes prn - Monitor bm's and medicate prn - Encourage po intake and ensure pt is drinking health shakes - [facility] care q shift. - Encourage independence with ambulation and ensure safe transfers - Active participation in OT sessions -Active participate with PT. IRF Physical Therapy Plan of Care Treatment Note Summary: Pt complaining of pain in neck, back right side, and hands are really painful thi s morning. CGA stand pivot transfer to bed. SBA with bed mobility. Did multiple bed exerc ises with reps of 20. Pt has mobility limitations of not being able to amb more than 50ft which impairs his ability to participate in his ADL's in customary locations in the home. He has been seen in the hospital and trained and can safely use a w/c. He has a recent hist ory of broken femurs in both LE that limit his amb distance. Pt's functional mobility defic it can be resolved by the use of a manual w/c. Physical Therapy Discharge Recommendations are: Recommended discharge disposition: home with assist Post discharge physical therapy recommendation: home health, outpatient therapy, pt is mot ivated participant Equipment Recommendations: 2 wheeled walker (FWW) Planned Interventions: balance training, bed mobility training, gait training, home exerci se program, patient/family education, orthotic fitting/training, transfer training, wheelcha ir management/propulsion training, ROM (Range of Motion), stair training, strengthening Frequency: (1-2x/day) Patient Status/Goals: Reflects last filed data and may be from multiple contributors. Bed Mobility Bed mobility completed on flat bed with mattress max inflated. Pt still requires increased time and effort to perform bed mobility. Assistive Device: bed rails Roll Left, [place] of [place]: stand by assist Roll Right, [place]: stand by assist Scoot/Bridge, [place]: stand by assist Supine to Sit, [place]: stand by assist Sit to Supine, Level of [place]: stand by assist Safety Issues: decreased use of legs for bridging/pushing Impairments: strength decreased, ROM decreased Transfers pt with good sequencing and handplacement Bed-Chair, Level of [place]: supervised Chair-Bed, [place] of [place]: contact guard assist [id number]-[id number], Assistive Device: other (see comments) (stand pivot with CGA.) Sit-Stand, [place] of [place]: contact guard assist, verbal cues required Stand-Sit, Level of [place]: contact guard assist, verbal cues required [id number], Assistive Device: 2 wheeled walker (FWW) Maintain Weight Bearing Status: (WBAT) Safety Issues: weight-shifting ability decreased Impairments: decreased flexibility, ROM decreased, strength decreased, impaired balance, pa in, postural control impaired Gait Did not amb this AM due to pain in back, neck and his hands. Level of [place]: stand by assist Assistive Device: 2 wheeled walker (FWW) Distance (feet): 100, 50,50, 100. Stairs pt SBA for stairs Number of Stairs: 12 Handrail Location: both sides Level of [place]: stand by assist Assistive Device: 2 rails Technique Used: step to step (ascending), step to step (descending) Maintain Weight Bearing Status: (.) Safety Issues: balance decreased during turns, weight-shifting ability decreased Impairments: pain, impaired balance, strength decreased, motor control impaired, decreased flexibility, ROM decreased Wheelchair Mobility (.) Type: standard Surface: indoor Distance (feet): 150 Speed: (.) Level of [place]: set up required Propulsion Technique: bilateral UE's, bilateral LE's Components: brakes, foot rests/ foot platforms Components Management Assistance: minimum assist/contact guard assist (75% patients effort) Balance Sitting Balance: Static: good balance Sitting Balance: Dynamic: good balance Standing Balance: Static: (Fair (-) with B UE support on FWW) Standing Balance: Dynamic: (Fair (-) with B UE support on FWW) Therapeutic Exercise Instructed in HEP Bed exercises: ankle pumps, glut sets, hip abduction/adduction, heel slides, short arc quad s, straight leg raises Repetitions: x 20 Seated exercises: (.) Repetitions: (.) Standing exercises: (standing in sanam steady, step-ups) Repetitions: (.) Functional Exercises: (.) Repetitions: (.) Functional Endurance Impaired but improving; pt able to recover faster, so only required 1-2 min rest breaks bet ween activities. ROM BLEs unable to move actively through full range, pt reports pain in knees prevents movement at this time L LE ROM: AAROM,hip 0-60, knee 0-80,pt observed to be sitting w/ hips close to 90, pt does have posterior pelvic tilt in sitting to avoid full 90 at hips R LE ROM: AAROM, hip 0-80, knee 0-90, pt observed to be sitting w/ hips close to 90, pt mcdonald s have posterior pelvic tilt in sitting to avoid full 90 at hips Strength Unable to formally assess BLE mms however he is able to support full body weight against gr avity x 60 seconds in Sanam Steady L LE Strength: IP 2/5, quad 3-/5, HS 3+/5,DF/PF 5/5 R LE Strength: IP 3-/5, quad 3+/5, HS 4-/5, DF/PF 5/5 PT Goal Review Date Flowsheet Row Most Recent Value STG Review Date 01/08/17 at 01/01/2017 1115 LTG Review Date 01/22/17 at 01/01/2017 1115 All Bed Mobility Goal Flowsheet Row Most Recent Value STG Status discontinued at 01/04/2017 1200 STG [place] Level -- [.] at 01/04/2017 1200 LTG Status -- [.] at 01/04/2017 1200 LTG [place] Level -- [.] at 01/04/2017 1200 Roll Left/Right Goal Flowsheet Row Most Recent Value STG Status new, met at 01/08/2017 1435 STG [place] Level modified independent at 01/08/2017 1435 STG Assistive Device none at 01/08/2017 1435 LTG Status met at 01/13/2017 1339 LTG [place] Level independent at 01/08/2017 1435 Scoot/Bridge Goal Flowsheet Row Most Recent Value STG Status met at 01/04/2017 1200 STG [place] Level contact guard assist at 01/01/2017 1115 LTG Status met at 01/08/2017 1435 LTG [place] Level independent at 01/07/2017 1345 Uhxyqp-Ofe-Fwpjcb Goal Flowsheet Row Most Recent Value STG Status met at 01/06/2017 1200 STG [place] Level contact guard assist at 01/01/2017 1115 STG Assistive Device bed rails at 01/01/2017 1115 LTG Status progressing at 01/15/2017 1206 LTG [place] Level independent at 01/08/2017 1100 LTG Assistive Device bed rails at 01/01/2017 1115 Rlwimqxik-Jcs-Ghynnzesf Goal Flowsheet Row Most Recent Value STG Status discontinued at 01/04/2017 1200 STG [place] Level -- [.] at 01/04/2017 1200 STG Assistive Device -- [.] at 01/04/2017 1200 LTG Status -- [.] at 01/04/2017 1200 LTG [place] Level -- [.] at 01/04/2017 1200 All Transfers Goal Flowsheet Row Most Recent Value STG Status met at 01/04/2017 1200 STG [place] Level contact guard assist at 01/01/2017 1115 STG Comments Using Sanam Travis at 01/01/2017 1115 LTG Status progressing at 01/15/2017 1206 LTG [place] Level modified independent at 01/01/2017 1115 LTG Assistive Device 2 wheeled walker (FWW) at 01/01/2017 1115 Gait Goal Flowsheet Row Most Recent Value STG Status met at 01/12/2017 1510 STG [place] Level minimum assist (75% patient effort) at 01/01/2017 1115 STG Assistive Device 2 wheeled walker (FWW) at 01/01/2017 1115 STG Distance (feet) 15 at 01/01/2017 1115 LTG Status progressing at 01/15/2017 1206 LTG [place] Level modified independent at 01/01/2017 1115 LTG Assistive Device 2 wheeled walker (FWW) at 01/01/2017 1115 LTG Distance (feet) 50 at 01/01/2017 1115 Stair Goal Flowsheet Row Most Recent Value STG Status met at 01/09/2017 1155 STG [place] Level minimum assist (75% patient effort) at 01/01/2017 1115 STG Assistive Device 2 rails at 01/01/2017 1115 STG Number of Stairs 8 at 01/01/2017 1115 LTG Status progressing at 01/14/2017 1640 LTG [place] Level modified independent at 01/01/2017 1115 LTG Assistive Device 2 rails at 01/01/2017 1115 LTG Number of Stairs 8 at 01/01/2017 1115 Wheelchair Goal Flowsheet Row Most Recent Value STG Status discontinued at 01/05/2017 1200 STG -- [.] at 01/05/2017 1200 LTG Status -- [.] at 01/05/2017 1200 Additional Goal #1 PT Flowsheet Row Most Recent Value STG Status met at 01/03/2017 1200 STG Pt will tolerate standing at Sanam Stedy x 1min w/ supervision only at 01/01/2017 1115 LTG Status met at 01/04/2017 1450 LTG pt kenneth standing with fww for 3 minutes supervised at 01/01/2017 1115 Electronically signed by: Elli Durán PTA, 01/16/2017 9:28 Goal Evaluation: lan of Care - Arely Pool COTA - 01/16/2017 8:10 AM PDTFormatting of this note might be different fro m the original. Problem: Patient Care Overview (Adult) Goal: Care Team Goals & Evaluation PROBLEM-RELATED GOALS: 3. Geovany will call out appropriately for assistance and have no falls during hospitalization through 01/18/2017. 4. Geovany's pain will be controlled to 4/10 to allow for activity and rest through 01/18/2017 . 5. Geovany will eat 75-100% most meals and accept health shakes through 01/18/2017. 6. Geovany will have a bm qod while in rehab through 01/18/2017. 7. Geovany will void w/o difficulties after catheter removal by 01/18/2017. 8. Cryss skin tears and abrasions will heal w/o s/sx infection 01/18/2017. 9. Geovany will transfer with 1 person A by 01/18/2017. 10.Geovany will be SBA- setup for his ADLs & functional mobility by 01/25/2017. 11. Geovany will be able to amb in room mod-I with FWW by 01/15/17. STRATEGY TO ACHIEVE GOALS: - Monitor for s/sx pain and medicate prn - Monitor for s/sx infection, clean wounds prn and perform dressing changes prn - Monitor bm's and medicate prn - Encourage po intake and ensure pt is drinking health shakes - [facility] cath care q shift. - Encourage independence with ambulation and ensure safe transfers - Active participation in OT sessions -Active participate with PT. IRF Occupational Therapy Plan of Care Treatment Note Summary: Pt reports he is dissapointed that he is not going home today, Pt agreeable to wo rk with OT this AM, Pt seen for shower and dressing. Pt reports he will not be taking the d oors off his shower. Started having pt step into and out of the shower this AM,. Occupational Therapy Discharge Recommendations are: Recommended discharge disposition: home with assist Post discharge occupational therapy recommendation: home health Equipment Recommendations: 2 wheeled walker (FWW), casserole preparer, sock aide, tub bench Planned Interventions:ADL retraining, strengthening, transfer training, bed mobility traini ng, IADL retraining, balance training, prosthetic fitting/training, ROM (Range of Motion) (e jeanine mgmt as indicated) Recommended Frequency: (6-7x/week) Patient Status/Goals: Reflects last filed data and may be from multiple contributors. ADLs . pt completed shower w/o physical assist Bathing, Level of [place]: set up required, supervised (distant supervision) Assistive Device: grab bars, hand-held shower head, tub bench Bathing Assess/Train, Position: sitting Bathing Assess/Train, Impairments: strength decreased, impaired balance for clothing placement over FWW. Pt needed encouragement to collect his own clothes, pt st ating "Thats why I have a at home" UB Dressing, Level of [place]: verbal cues required Assistive Device: none UB Dressing Assess/Train, Position: sitting UB Dressing Assess/Train, Impairments: strength decreased, impaired balance Pt conintues to require assist with socks/shoes LB Dressing, Level of [place]: minimal assist (75% patient effort) Assistive Device: casserole preparer, sock-aid LB Dressing Assess/Train, Position: sitting, standing LB Dressing Assess/Train, Impairments: strength decreased, impaired balance not addressed this AM Toileting, Level of [place]: contact guard assist Assistive Device: grab bar, raised toilet seat Toileting Assess/Train, Position: standing Toileting Assess/Train, Impairments: decreased flexibility, ROM decreased, strength decreas ed, impaired balance not addressed this AM Grooming, Level of [place]: contact guard assist Assistive Device: electric toothbrush Grooming Assess/Train, Position: (supine) Grooming Assess/Train, Impairments: impaired balance, strength decreased Transfers Pt stepped in/out of tub this AM, requiring VC's and assist Tub, Level of [place]: minimal assist (75% patient effort), verbal cues required, tact ile cues required Tub, Assistive Device: grab bars, shower chair, 2 wheeled walker (FWW) Maintain Weight Bearing Status: other (see comments) (Assist to get L LE out of tub from st anding) Safety Issues: weight-shifting ability decreased Impairments: decreased flexibility, ROM decreased, strength decreased, impaired balance, pa in, postural control impaired OT Goal Review Date Flowsheet Row Most Recent Value STG Review Date 01/08/17 at 01/08/2017 0935 LTG Review Date 01/25/17 at 01/08/2017 0935 Grooming Goal Flowsheet Row Most Recent Value STG Status met at 01/15/2017 1306 STG [place] Level stand by assist at 01/04/2017 1455 STG Position sitting in chair [at sink] at 01/04/2017 1455 STG Adaptive Equipment none at 01/04/2017 1455 LTG Status progressing at 01/16/2017 0810 LTG [place] modified independent at 01/08/2017 0935 LTG Position -- [sitting at sink] at 01/04/2017 1455 Bathing Goal Flowsheet Row Most Recent Value STG Status met at 01/11/2017 0805 STG [place] Level contact guard assist at 01/08/2017 0935 STG Adaptive Equpiment shower chair, tub bench at 01/08/2017 0935 LTG Status met at 01/16/2017 0810 LTG [place] Level stand by assist at 01/08/2017 0935 UB Dressing Goal Flowsheet Row Most Recent Value STG Status met at 01/11/2017 0805 STG [place] Level stand by assist at 01/01/2017 1338 LTG Status met at 01/15/2017 1306 LTG [place] Level set up required at 01/01/2017 1338 LB Dressing Goal Flowsheet Row Most Recent Value STG Status progressing at 01/16/2017 0810 STG [place] Level contact guard assist at 01/08/2017 0935 STG Adaptive Equipment casserole preparer, sock-aid at 01/08/2017 0935 LTG Status progressing at 01/16/2017 0810 LTG [place] Level set up required at 01/08/2017 0935 Toileting Goal Flowsheet Row Most Recent Value STG Status continued at 01/16/2017 0810 STG [place] Level minimum assist (75% patient effort) at 01/01/2017 1338 LTG Status continued at 01/13/2017 0800 LTG [place] Level stand by assist at 01/08/2017 0935 Toilet Transfer Goal Flowsheet Row Most Recent Value STG Status continued at 01/16/2017 0810 STG [place] Level minimum assist (75% patient effort) at 01/01/2017 1338 LTG Status continued at 01/16/2017 0810 LTG [place] Level supervised at 01/08/2017 0935 Tub/Shower Transfer Goal Flowsheet Row Most Recent Value Tub/Shower Type tub/shower combo at 01/08/2017 0935 STG Status met at 01/10/2017 1809 STG [place] Level minimum assist (75% patient effort) at 01/03/2017 1909 STG Assistive Device tub bench at 01/03/2017 1909 LTG Status progressing at 01/13/2017 0800 LTG [place] Level modified independent at 01/08/2017 0935 LTG Assistive Device tub bench at 01/08/2017 0935 Additional Goals #1 OT Flowsheet Row Most Recent Value LTG Status met at 01/14/2017 1714 LTG Pt will demonstrate ability to complete HEP c SBA. at 01/14/2017 1714 Electronically signed by: Arely Pool, Certified Health Care Marketing Manager, 2016 8:10 lan of Care - Darling Vivar RN - 01/16/2017 4:16 AM PDTProblem: Patient Care Overview (Adult) Goal: Care Team Goals & Evaluation PROBLEM-RELATED GOALS: 3. Geovany will call out appropriately for assistance and have no falls during hospitalization through 01/18/2017. 4. Geovany's pain will be controlled to 4/10 to allow for activity and rest through 01/18/2017 . 5. Geovayn will eat 75-100% most meals and accept health shakes through 01/18/2017. 6. Geovany will have a bm qod while in rehab through 01/18/2017. 7. Geovany will void w/o difficulties after catheter removal by 01/18/2017. 8. Geovany's skin tears and abrasions will heal w/o s/sx infection 01/18/2017. 9. Geovany will transfer with 1 person A by 01/18/2017. 10.Geovany will be SBA- setup for his ADLs & functional mobility by 01/25/2017. 11. Geovany will be able to amb in room mod-I with FWW by 01/15/17. STRATEGY TO ACHIEVE GOALS: - Monitor for s/sx pain and medicate prn - Monitor for s/sx infection, clean wounds prn and perform dressing changes prn - Monitor bm's and medicate prn - Encourage po intake and ensure pt is drinking health shakes - [facility] cath care q shift. - Encourage independence with ambulation and ensure safe transfers - Active participation in OT sessions -Active participate with PT. Outcome: Improving Goal Evaluation: Dora continues to be A & O. Denies pain/discomfort. Required to be straight cathed x1 thi s shift, voided 350 mL, PVR 535 mL, straight cath 500 mL. +1 edema of bilateral thighs. Cera ve lotion applied to bilateral feet, left foot appears improved, right foot continues to hav e a large crack in the heal. Strong D/P. Denies numbness/tingling. VSS. Appeared to sleep we ll between cares. lan of Care - Cira Hurst Osvaldo, OT - 01/15/2017 4:36 PM PDT Problem: Patient Care Overview (Adult) Goal: Care Team Goals & Evaluation PROBLEM-RELATED GOALS: 3. Geovany will call out appropriately for assistance and have no falls during hospitalization through 01/18/2017. 4. Geovany's pain will be controlled to 10/29 to allow for activity and rest through 01/18/2017 . 5. Geovany will eat 75-100% most meals and accept health shakes through 01/18/2017. 6. Geovany will have a bm qod while in rehab through 01/18/2017. 7. Geovany will void w/o difficulties after catheter removal by 01/18/2017. 8. Geovany's skin tears and abrasions will heal w/o s/sx infection 01/18/2017. 9. Geovany will transfer with 1 person A by 01/18/2017. 10.Geovany will be SBA- setup for his ADLs & functional mobility by 01/25/2017. 11. Geovany will be able to amb in room mod-I with FWW by 01/15/17. STRATEGY TO ACHIEVE GOALS: - Monitor for s/sx pain and medicate prn - Monitor for s/sx infection, clean wounds prn and perform dressing changes prn - Monitor bm's and medicate prn - Encourage po intake and ensure pt is drinking health shakes - [facility] care q shift. - Encourage independence with ambulation and ensure safe transfers - Active participation in OT sessions -Active participate with PT. Outcome: Improving IRF Occupational Therapy Plan of Care Treatment Note Summary: Pt reports increased pain after am PT session. Pt reports recieving pain meds and "needing rest". Pt noticeably c poor affect this session. Agreed to bed excercises. Pt enga ged in 2 sets x 10 reps internal and external shoulder rotation, bicep curls and elbow exten osmar. Decreased activity tolerance continues to present a safety concern for return to home. Pt will continue to benefit from skilled OT services to increase ADL independence. Occupational Therapy Discharge Recommendations are: Recommended discharge disposition: home with assist Post discharge occupational therapy recommendation: home health Equipment Recommendations: 2 wheeled walker (FWW), casserole preparer, sock aide, tub bench Planned Interventions:ADL retraining, strengthening, transfer training, bed mobility traini ng, IADL retraining, balance training, prosthetic fitting/training, ROM (Range of Motion) (e jeanine mgmt as indicated) Recommended Frequency: (6-7x/week) Patient Status/Goals: Reflects last filed data and may be from multiple contributors. Therapeutic Exercise Pt reported increased back pain this session. However, agreed to bed excercises. Pt engaged in 2 sets x 10 reps internal and external shoulder rotation, bicep curls and elbow extensio n c 3 lb weight. Functional Endurance Poor this session d/t report of pain. Tub, Level of [place]: supervised Tub, Assistive Device: 2 wheeled walker (FWW), tub bench Safety Issues: weight-shifting ability decreased Impairments: decreased flexibility, ROM decreased, strength decreased, impaired balance, pa in, postural control impaired OT Goal Review Date Flowsheet Row Most Recent Value STG Review Date 01/08/17 at 01/08/2017 0935 LTG Review Date 01/25/17 at 01/08/2017 0935 Grooming Goal Flowsheet Row Most Recent Value STG Status met at 01/15/2017 1306 STG [place] Level stand by assist at 01/04/2017 1455 STG Position sitting in chair [at sink] at 01/04/2017 1455 STG Adaptive Equipment none at 01/04/2017 1455 LTG Status continued at 01/13/2017 0800 LTG [place] Level modified independent at 01/08/2017 0935 LTG Position -- [sitting at sink] at 01/04/2017 1455 Bathing Goal Flowsheet Row Most Recent Value STG Status met at 01/11/2017 0805 STG [place] Level contact guard assist at 01/08/2017 0935 STG Adaptive Equpiment shower chair, tub bench at 01/08/2017 0935 LTG Status continued at 01/14/2017 1302 LTG [place] Level stand by assist at 01/08/2017 0935 UB Dressing Goal Flowsheet Row Most Recent Value STG Status met at 01/11/2017 0805 STG [place] Level stand by assist at 01/01/2017 1338 LTG Status met at 01/15/2017 1306 LTG [place] Level set up required at 01/01/2017 1338 LB Dressing Goal Flowsheet Row Most Recent Value STG Status progressing at 01/13/2017 0800 STG [place] Level contact guard assist at 01/08/2017 0935 STG Adaptive Equipment casserole preparer, sock-aid at 01/08/2017 0935 LTG Status progressing at 01/13/2017 0800 LTG [place] Level set up required at 01/08/2017 0935 Toileting Goal Flowsheet Row Most Recent Value STG Status continued at 01/13/2017 0800 STG [place] Level minimum assist (75% patient effort) at 01/01/2017 1338 LTG Status continued at 01/13/2017 0800 LTG [place] Level stand by assist at 01/08/2017 0935 Toilet Transfer Goal Flowsheet Row Most Recent Value STG Status continued at 01/13/2017 0800 STG [place] Level minimum assist (75% patient effort) at 01/01/2017 1338 LTG Status continued at 01/13/2017 0800 LTG [place] Level supervised at 01/08/2017 0935 Tub/Shower Transfer Goal Flowsheet Row Most Recent Value Tub/Shower Type tub/shower combo at 01/08/2017 0935 STG Status met at 01/10/2017 1809 STG [place] Level minimum assist (75% patient effort) at 01/03/2017 1909 STG Assistive Device tub bench at 01/03/2017 1909 LTG Status progressing at 01/13/2017 0800 LTG [place] Level modified independent at 01/08/2017 0935 LTG Assistive Device tub bench at 01/08/2017 0935 Additional Goals #1 OT Flowsheet Row Most Recent Value LTG Status met at 01/14/2017 1714 LTG Pt will demonstrate ability to complete HEP c SBA. at 01/14/2017 1714 Electronically signed by: Cira Hurst OT, 01/15/2017 16:35 lan of Care - Carine Whitten RN - 01/15/2017 4:06 PM PDTProblem: Patient Care Overview (Adult) Goal: Care Team Goals & Evaluation PROBLEM-RELATED GOALS: 3. Geovany will call out appropriately for assistance and have no falls during hospitalization through 01/18/2017. 4. Geovany's pain will be controlled to 4/10 to allow for activity and rest through 01/18/2017 . 5. Geovany will eat 75-100% most meals and accept health shakes through 01/18/2017. 6. Geovany will have a bm qod while in rehab through 01/18/2017. 7. Geovany will void w/o difficulties after catheter removal by 01/18/2017. 8. Geovany's skin tears and abrasions will heal w/o s/sx infection 01/18/2017. 9. Geovany will transfer with 1 person A by 01/18/2017. 10.Geovany will be SBA- setup for his ADLs & functional mobility by 01/25/2017. 11. Geovany will be able to amb in room mod-I with FWW by 01/15/17. STRATEGY TO ACHIEVE GOALS: - Monitor for s/sx pain and medicate prn - Monitor for s/sx infection, clean wounds prn and perform dressing changes prn - Monitor bm's and medicate prn - Encourage po intake and ensure pt is drinking health shakes - Velarde cath care q shift. - Encourage independence with ambulation and ensure safe transfers - Active participation in OT sessions -Active participate with PT. Outcome: Improving Goal Evaluation: alert and pleasant one person assist with fww c/o back pain today received robaxin and oxy codone bm yesterday incisions healing well cont to monitor pvr's lan of Care - Catherine Manzo, PT - 01/15/2017 1:25 PM PDTProblem: Patient Care Overview (Adult) Goal: Care Team Goals & Evaluation PROBLEM-RELATED GOALS: 3. Geovany will call out appropriately for assistance and have no falls during hospitalization through 01/18/2017. 4. Geovany's pain will be controlled to 4/10 to allow for activity and rest through 01/18/2017 . 5. Geovany will eat 75-100% most meals and accept health shakes through 01/18/2017. 6. Geovany will have a bm qod while in rehab through 01/18/2017. 7. Geovany will void w/o difficulties after catheter removal by 01/18/2017. 8. Geovany's skin tears and abrasions will heal w/o s/sx infection 01/18/2017. 9. Geovany will transfer with 1 person A by 01/18/2017. 10.Geovany will be SBA- setup for his ADLs & functional mobility by 01/25/2017. 11. Geovany will be able to amb in room mod-I with FWW by 01/15/17. STRATEGY TO ACHIEVE GOALS: - Monitor for s/sx pain and medicate prn - Monitor for s/sx infection, clean wounds prn and perform dressing changes prn - Monitor bm's and medicate prn - Encourage po intake and ensure pt is drinking health shakes - Velarde cath care q shift. - Encourage independence with ambulation and ensure safe transfers - Active participation in OT sessions -Active participate with PT. Missed Visit Patient Information Patient Name: Dora Arellano Date of : 1930 Age: 86 y.o. The patient was unable to be seen for today's scheduled visit due to c/o increased pain and muscle spasms after a.m. PT session. Assisted pt to reposition for improved comfort and pre ssure relief. Dr. Staples alerted and wrote orders for therapies as tolerated and also reque sted to limit gait distance to minimize risk of flaring up back pain and spasms. Plan: Continue per POC tomorrow when pain is under better control. Electronically signed by: Catherine Manzo, PT, 01/15/2017 14:50 lan of Care - Cira Mclean OT - 01/15/2017 1:09 PM PDTFormatting of this note might be different from t he original. Problem: Patient Care Overview (Adult) Goal: Care Team Goals & Evaluation PROBLEM-RELATED GOALS: 3. Geovany will call out appropriately for assistance and have no falls during hospitalization through 01/18/2017. 4. Geovany's pain will be controlled to 4/10 to allow for activity and rest through 01/18/2017 . 5. Geovany will eat 75-100% most meals and accept health shakes through 01/18/2017. 6. Geovany will have a bm qod while in rehab through 01/18/2017. 7. Geovany will void w/o difficulties after catheter removal by 01/18/2017. 8. Geovany's skin tears and abrasions will heal w/o s/sx infection 01/18/2017. 9. Geovany will transfer with 1 person A by 01/18/2017. 10.Geovany will be SBA- setup for his ADLs & functional mobility by 01/25/2017. 11. Geovany will be able to amb in room mod-I with FWW by 01/15/17. STRATEGY TO ACHIEVE GOALS: - Monitor for s/sx pain and medicate prn - Monitor for s/sx infection, clean wounds prn and perform dressing changes prn - Monitor bm's and medicate prn - Encourage po intake and ensure pt is drinking health shakes - Velarde cath care q shift. - Encourage independence with ambulation and ensure safe transfers - Active participation in OT sessions -Active participate with PT. Outcome: Improving IRF Occupational Therapy Plan of Care Treatment Note Summary: Pt encountered supine in bed. Pt SBA to reach seated EOB. Pt SBA to engage in fun ctional mobility to closet and gather clothing using safe technique c FWW. Pt dependent to d off shoes. Pt min A to complete LB dressing, required assist to doff R sock despite use of A D. Pt reported "I will not use this stuff at home". Ot responded by explaining need for AD a nd its neccesity for safe LB dressing at this time, pt demonstrated understanding via teachb ack. Pt SBA to luke shirt and max A to luke B shoes. Pt SBA to engage in functional mobility to bathroom and groom standing at sink. D/t pt's low functional activity tolerance and cons istent need for min A to complete ADLs, OT is reccomending pt dc to assisted living facility . Pt has demonstrated understanding of this reccomendation and refused. Pt will continue to benefit from skilled OT services to imcrease ADL independence and safety upon return to home . Occupational Therapy Discharge Recommendations are: Recommended discharge disposition: home with assist (OT reccomends assisted living however pt selecting home c . ) Post discharge occupational therapy recommendation: home health Equipment Recommendations: 2 wheeled walker (FWW), casserole preparer, sock aide, tub bench Planned Interventions:ADL retraining, strengthening, transfer training, bed mobility traini ng, IADL retraining, balance training, prosthetic fitting/training, ROM (Range of Motion) (e jeanine mgmt as indicated) Recommended Frequency: (6-7x/week) Patient Status/Goals: Reflects last filed data and may be from multiple contributors. ADLs Pt completed shower w/o physical assist this AM. Bathing, Level of [place]: supervised, set up required Assistive Device: grab bars, hand-held shower head, tub bench Bathing Assess/Train, Position: sitting Bathing Assess/Train, Impairments: strength decreased, impaired balance Pt retrived clothes and dressed c SBA. UB Dressing, Level of [place]: stand by assist, verbal cues required Assistive Device: none UB Dressing Assess/Train, Position: sitting UB Dressing Assess/Train, Impairments: strength decreased, impaired balance Pt retrived clothes and dressed c min A. Required assist to don B shoes and R sock despite use of AD. LB Dressing, Level of [place]: minimal assist (75% patient effort), verbal cues requir ed Assistive Device: casserole preparer LB Dressing Assess/Train, Position: sitting, standing LB Dressing Assess/Train, Impairments: impaired balance SBA to groom at sink. Toileting, Level of [place]: contact guard assist Assistive Device: grab bar, raised toilet seat Toileting Assess/Train, Position: standing Toileting Assess/Train, Impairments: decreased flexibility, ROM decreased, strength decreas ed, impaired balance Pt completed grooming standing at sink c CGA for safety. Required cues to initiate rest rome ak. Grooming, Level of [place]: contact guard assist Assistive Device: electric toothbrush Grooming Assess/Train, Position: (supine) Grooming Assess/Train, Impairments: impaired balance, strength decreased Bed Mobility SBA, requires increased time and occasional vcs for safety. Assistive Device: bed rails Roll Left, [place] of [place]: stand by assist Roll Right, [place]: stand by assist Scoot/Bridge, [place] of [place]: stand by assist Supine to Sit, [place] of [place]: stand by assist Sit to Supine, Level of [place]: stand by assist Safety Issues: decreased use of legs for bridging/pushing Impairments: strength decreased, ROM decreased Transfers SBA for safety. Decreased pain this session, however, pt excessively bends at waist during transfers despite vcs. This is a barrier to pt's safety. Bed-Chair, Level of [place]: stand by assist Chair-Bed, Level of [place]: stand by assist [id number], Assistive Device: 2 wheeled walker (FWW) Sit-Stand, Level of [place]: contact guard assist, verbal cues required Stand-Sit, Level of [place]: contact guard assist, verbal cues required Syl-[id number], Assistive Device: 2 wheeled walker (FWW) Safety Issues: weight-shifting ability decreased Impairments: decreased flexibility, ROM decreased, strength decreased, impaired balance, pa in, postural control impaired OT Goal Review Date Flowsheet Row Most Recent Value STG Review Date 01/08/17 at 01/08/2017 0935 LTG Review Date 01/25/17 at 01/08/2017 0935 Grooming Goal Flowsheet Row Most Recent Value STG Status met at 01/15/2017 1306 STG [place] Level stand by assist at 01/04/2017 1455 STG Position sitting in chair [at sink] at 01/04/2017 1455 STG Adaptive Equipment none at 01/04/2017 1455 LTG Status continued at 01/13/2017 0800 LTG [place] modified independent at 01/08/2017 0935 LTG Position -- [sitting at sink] at 01/04/2017 1455 Bathing Goal Flowsheet Row Most Recent Value STG Status met at 01/11/2017 0805 STG [place] contact guard assist at 01/08/2017 0935 STG Adaptive Equpiment shower chair, tub bench at 01/08/2017 0935 LTG Status continued at 01/14/2017 1302 LTG [place] stand by assist at 01/08/2017 0935 UB Dressing Goal Flowsheet Row Most Recent Value STG Status met at 01/11/2017 0805 STG [place] Level stand by assist at 01/01/2017 1338 LTG Status met at 01/15/2017 1306 LTG [place] set up required at 01/01/2017 1338 LB Dressing Goal Flowsheet Row Most Recent Value STG Status progressing at 01/13/2017 0800 STG [place] Level contact guard assist at 01/08/2017 0935 STG Adaptive Equipment casserole preparer, sock-aid at 01/08/2017 0935 LTG Status progressing at 01/13/2017 0800 LTG [place] set up required at 01/08/2017 0935 Toileting Goal Flowsheet Row Most Recent Value STG Status continued at 01/13/2017 0800 STG [place] Level minimum assist (75% patient effort) at 01/01/2017 1338 LTG Status continued at 01/13/2017 0800 LTG [place] stand by assist at 01/08/2017 0935 Toilet Transfer Goal Flowsheet Row Most Recent Value STG Status continued at 01/13/2017 0800 STG [place] Level minimum assist (75% patient effort) at 01/01/2017 1338 LTG Status continued at 01/13/2017 0800 LTG [place] supervised at 01/08/2017 0935 Tub/Shower Transfer Goal Flowsheet Row Most Recent Value Tub/Shower Type tub/shower combo at 01/08/2017 0935 STG Status met at 01/10/2017 1809 STG [place] minimum assist (75% patient effort) at 01/03/2017 1909 STG Assistive Device tub bench at 01/03/2017 1909 LTG Status progressing at 01/13/2017 0800 LTG [place] modified independent at 01/08/2017 0935 LTG Assistive Device tub bench at 01/08/2017 0935 Additional Goals #1 OT Flowsheet Row Most Recent Value LTG Status met at 01/14/2017 1714 LTG Pt will demonstrate ability to complete HEP c SBA. at 01/14/2017 1714 Electronically signed by: Cira Hurst OT, 01/15/2017 13:08 lan of Care - Elli Parkinson, DIGITAL ADVERTISING ANALYST - 01/15/2017 12:16 PM PDTFormatting of this note might be different from t he original. Problem: Patient Care Overview (Adult) Goal: Care Team Goals & Evaluation PROBLEM-RELATED GOALS: 3. Geovany will call out appropriately for assistance and have no falls during hospitalization through 01/18/2017. 4. Geovany's pain will be controlled to 4/10 to allow for activity and rest through 01/18/2017 . 5. Geovany will eat 75-100% most meals and accept health shakes through 01/18/2017. 6. Geovany will have a bm qod while in rehab through 01/18/2017. 7. Geovany will void w/o difficulties after catheter removal by 01/18/2017. 8. Geovany's skin tears and abrasions will heal w/o s/sx infection 01/18/2017. 9. Geovany will transfer with 1 person A by 01/18/2017. 10.Geovany will be SBA- setup for his ADLs & functional mobility by 01/25/2017. 11. Geovany will be able to amb in room mod-I with FWW by 01/15/17. STRATEGY TO ACHIEVE GOALS: - Monitor for s/sx pain and medicate prn - Monitor for s/sx infection, clean wounds prn and perform dressing changes prn - Monitor bm's and medicate prn - Encourage po intake and ensure pt is drinking health shakes - Velarde cath care q shift. - Encourage independence with ambulation and ensure safe transfers - Active participation in OT sessions -Active participate with PT. IRF Physical Therapy Plan of Care Treatment Note Summary: Pt amb 100,50,50 100 With FWW and SBA. Seated rests between each amb for approx 2-3 min. Last 100ft required a standing rest at 50ft, UE fatigued due to a lot of weight be aring through the arms. Worked on steping up and down curbs. Was able to follow the direct ions and did it correctly. He did not have any LOB but does appear to be unsteady at times. Pt will need continued supervision wiht amb at this time and cues to rest. Physical Therapy Discharge Recommendations are: Recommended discharge disposition: home with assist Post discharge physical therapy recommendation: home health, outpatient therapy, pt is mot ivated participant Equipment Recommendations: 2 wheeled walker (FWW) Planned Interventions: balance training, bed mobility training, gait training, home exerci se program, patient/family education, orthotic fitting/training, transfer training, wheelcha ir management/propulsion training, ROM (Range of Motion), stair training, strengthening Frequency: (1-2x/day) Patient Status/Goals: Reflects last filed data and may be from multiple contributors. Bed Mobility Bed mobility completed on flat bed with mattress max inflated. Pt still requires increased time and effort to perform bed mobility. Assistive Device: bed rails Roll Left, [place] of [place]: stand by assist Roll Right, [place]: stand by assist Scoot/Bridge, Level of [place]: independent Supine to Sit, Level of [place]: stand by assist Sit to Supine, Level of [place]: stand by assist Safety Issues: decreased use of legs for bridging/pushing Impairments: strength decreased, ROM decreased Transfers pt with good sequencing and handplacement Bed-Chair, Level of [place]: supervised Chair-Bed, Level of [place]: supervised [id number], Assistive Device: 2 wheeled walker (FWW) Sit-Stand, Level of [place]: contact guard assist, verbal cues required Stand-Sit, Level of [place]: contact guard assist, verbal cues required [id number], Assistive Device: 2 wheeled walker (FWW) Maintain Weight Bearing Status: (WBAT) Safety Issues: weight-shifting ability decreased Impairments: decreased flexibility, ROM decreased, strength decreased, impaired balance, pa in, postural control impaired Gait Seated rests between all amb. Approx 2-3 min rests. Curbs. Level of [place]: stand by assist Assistive Device: 2 wheeled walker (FWW) Distance (feet): 100, 50,50, 100. Wheelchair Mobility (.) Type: standard Surface: indoor Distance (feet): 150 Speed: (.) Level of [place]: set up required Propulsion Technique: bilateral UE's, bilateral LE's Components: brakes, foot rests/ foot platforms Components Management Assistance: minimum assist/contact guard assist (75% patients effort) Therapeutic Exercise Instructed in HEP Bed exercises: bilateral, ankle pumps, quad sets, glut sets, hip abduction/adduction, heel slides, short arc quads, bridging Repetitions: x12 Seated exercises: (.) Repetitions: (.) Standing exercises: (standing in sanam steady, step-ups) Repetitions: (.) Repetitions: (.) Functional Exercises: (.) Repetitions: (.) Functional Endurance Impaired but improving; pt able to recover faster, so only required 1-2 min rest breaks bet ween activities. ROM BLEs unable to move actively through full range, pt reports pain in knees prevents movement at this time L LE ROM: AAROM,hip 0-60, knee 0-80,pt observed to be sitting w/ hips close to 90, pt does have posterior pelvic tilt in sitting to avoid full 90 at hips R LE ROM: AAROM, hip 0-80, knee 0-90, pt observed to be sitting w/ hips close to 90, pt mcdonald s have posterior pelvic tilt in sitting to avoid full 90 at hips Strength Unable to formally assess BLE mms however he is able to support full body weight against gr avity x 60 seconds in Sanam Steady L LE Strength: IP 2/5, quad 3-/5, HS 3+/5,DF/PF 5/5 R LE Strength: IP 3-/5, quad 3+/5, HS 4-/5, DF/PF 5/5 PT Goal Review Date Flowsheet Row Most Recent Value STG Review Date 01/08/17 at 01/01/2017 1115 LTG Review Date 01/22/17 at 01/01/2017 1115 All Bed Mobility Goal Flowsheet Row Most Recent Value STG Status discontinued at 01/04/2017 1200 STG [place] Level -- [.] at 01/04/2017 1200 LTG Status -- [.] at 01/04/2017 1200 LTG [place] Level -- [.] at 01/04/2017 1200 Roll Left/Right Goal Flowsheet Row Most Recent Value STG Status new, met at 01/08/2017 1435 STG [place] Level modified independent at 01/08/2017 1435 STG Assistive Device none at 01/08/2017 1435 LTG Status met at 01/13/2017 1339 LTG [place] Level independent at 01/08/2017 1435 Scoot/Bridge Goal Flowsheet Row Most Recent Value STG Status met at 01/04/2017 1200 STG [place] Level contact guard assist at 01/01/2017 1115 LTG Status met at 01/08/2017 1435 LTG [place] Level independent at 01/07/2017 1345 [id number] Goal Flowsheet Row Most Recent Value STG Status met at 01/06/2017 1200 STG [place] Level contact guard assist at 01/01/2017 1115 STG Assistive Device bed rails at 01/01/2017 1115 LTG Status progressing at 01/15/2017 1206 LTG [place] Level independent at 01/08/2017 1100 LTG Assistive Device bed rails at 01/01/2017 1115 [id number]-Nrz-[id number] Goal Flowsheet Row Most Recent Value STG Status discontinued at 01/04/2017 1200 STG [place] Level -- [.] at 01/04/2017 1200 STG Assistive Device -- [.] at 01/04/2017 1200 LTG Status -- [.] at 01/04/2017 1200 LTG [place] Level -- [.] at 01/04/2017 1200 All Transfers Goal Flowsheet Row Most Recent Value STG Status met at 01/04/2017 1200 STG [place] Level contact guard assist at 01/01/2017 1115 STG Comments Using Sanam Chemady at 01/01/2017 1115 LTG Status progressing at 01/15/2017 1206 LTG [place] Level modified independent at 01/01/2017 1115 LTG Assistive Device 2 wheeled walker (FWW) at 01/01/2017 1115 Gait Goal Flowsheet Row Most Recent Value STG Status met at 01/12/2017 1510 STG [place] Level minimum assist (75% patient effort) at 01/01/2017 1115 STG Assistive Device 2 wheeled walker (FWW) at 01/01/2017 1115 STG Distance (feet) 15 at 01/01/2017 1115 LTG Status progressing at 01/15/2017 1206 LTG [place] Level modified independent at 01/01/2017 1115 LTG Assistive Device 2 wheeled walker (FWW) at 01/01/2017 1115 LTG Distance (feet) 50 at 01/01/2017 1115 Stair Goal Flowsheet Row Most Recent Value STG Status met at 01/09/2017 1155 STG [place] Level minimum assist (75% patient effort) at 01/01/2017 1115 STG Assistive Device 2 rails at 01/01/2017 1115 STG Number of Stairs 8 at 01/01/2017 1115 LTG Status progressing at 01/14/2017 1640 LTG [place] Level modified independent at 01/01/2017 1115 LTG Assistive Device 2 rails at 01/01/2017 1115 LTG Number of Stairs 8 at 01/01/2017 1115 Wheelchair Goal Flowsheet Row Most Recent Value STG Status discontinued at 01/05/2017 1200 STG -- [.] at 01/05/2017 1200 LTG Status -- [.] at 01/05/2017 1200 Additional Goal #1 PT Flowsheet Row Most Recent Value STG Status met at 01/03/2017 1200 STG Pt will tolerate standing at Sanam Chemady x 1min w/ supervision only at 01/01/2017 1115 LTG Status met at 01/04/2017 1450 LTG pt kenneth standing with fww for 3 minutes supervised at 01/01/2017 1115 Electronically signed by: Elli Durán PTA, 01/15/2017 12:15 Goal Evaluation: lan of Care - Lashaun Mei RN - 01/15/2017 3:52 AM PDTProblem: Patient Care Overview (Adult) Goal: Care Team Goals & Evaluation PROBLEM-RELATED GOALS: 3. Geovany will call out appropriately for assistance and have no falls during hospitalization through 01/18/2017. 4. Geovany's pain will be controlled to 4/10 to allow for activity and rest through 01/18/2017 . 5. Geovany will eat 75-100% most meals and accept health shakes through 01/18/2017. 6. Geovany will have a bm qod while in rehab through 01/18/2017. 7. Geovany will void w/o difficulties after catheter removal by 01/18/2017. 8. Geovany's skin tears and abrasions will heal w/o s/sx infection 01/18/2017. 9. Geovany will transfer with 1 person A by 01/18/2017. 10.Geovany will be SBA- setup for his ADLs & functional mobility by 01/25/2017. 11. Geovany will be able to amb in room mod-I with FWW by 01/15/17. STRATEGY TO ACHIEVE GOALS: - Monitor for s/sx pain and medicate prn - Monitor for s/sx infection, clean wounds prn and perform dressing changes prn - Monitor bm's and medicate prn - Encourage po intake and ensure pt is drinking health shakes - Velarde cath care q shift. - Encourage independence with ambulation and ensure safe transfers - Active participation in OT sessions -Active participate with PT. Outcome: Improving Goal Evaluation: Pt slept well. Uses call light appropriately. Minimal back pain reported. Pt voided x 1 si nce velarde removal, will monitor. CMS intact. CGA with FWW. Incisions LEISSA, well approximated. Multiple skin tears and abrasions in various stages of healing. Drsgs CDI. lan of Care - Raisamaurice abelCira, OT - 01/14/2017 5:16 PM PDTFormatting of this note might be different from dena arredondo original. Problem: Patient Care Overview (Adult) Goal: Care Team Goals & Evaluation PROBLEM-RELATED GOALS: 3. Geovany will call out appropriately for assistance and have no falls during hospitalization through 01/18/2017. 4. Geovany's pain will be controlled to 4/10 to allow for activity and rest through 01/18/2017 . 5. Geovany will eat 75-100% most meals and accept health shakes through 01/18/2017. 6. Geovany will have a bm qod while in rehab through 01/18/2017. 7. Geovany will void w/o difficulties after catheter removal by 01/18/2017. 8. Cryss skin tears and abrasions will heal w/o s/sx infection 01/18/2017. 9. Geovany will transfer with 1 person A by 01/18/2017. 10.Geovany will be SBA- setup for his ADLs & functional mobility by 01/25/2017. 11. Geovany will be able to amb in room mod-I with FWW by 01/15/17. STRATEGY TO ACHIEVE GOALS: - Monitor for s/sx pain and medicate prn - Monitor for s/sx infection, clean wounds prn and perform dressing changes prn - Monitor bm's and medicate prn - Encourage po intake and ensure pt is drinking health shakes - [facility] care q shift. - Encourage independence with ambulation and ensure safe transfers - Active participation in OT sessions -Active participate with PT. Outcome: Improving IRF Occupational Therapy Plan of Care Treatment Note Summary: Pt encountered supine in bed, reports increased pain this pm. Pt required SBA to transfer to EOB. Pt engaged in functional mobility to therapy gym c SBA for safety, ~ 30 fee t. Pt completed 2 sets x 10 reps BUE internal external rotation, bicep curls, tricep kick ba cks, chest flys c 3lb weight. Pt required rest breaks following each rep. Pt asked to demons trate HEP for OT and was unable to at this time. Will continue to work with OT to meet goal of attaining I in HEP. Pt will benefit from skilled OT services to increase ADL independence and activity tolerance. Occupational Therapy Discharge Recommendations are: Recommended discharge disposition: home with assist Post discharge occupational therapy recommendation: home health, pt is motivated participa nt Equipment Recommendations: 2 wheeled walker (FWW), casserole preparer, sock aide, tub bench Planned Interventions:ADL retraining, strengthening, transfer training, bed mobility traini ng, IADL retraining, balance training, prosthetic fitting/training, ROM (Range of Motion) (e jeanine mgmt as indicated) Recommended Frequency: (6-7x/week) Patient Status/Goals: Reflects last filed data and may be from multiple contributors. Therapeutic Exercise Shoulder exercises: bilateral, flexion, extension, ABDuction, ADDuction, internal rotation, external rotation Type of exercise: resistive Repetitions/ Resistance: 10 reps each, 2 sets with 3 lb weights Elbow exercises: bilateral, flexion, extension, pronation, supination Type of exercise: resistive Repetitions/ Resistance: 10 reps of 2 sets, 3 lb weights Wrist exercises: bilateral, flexion, extension Type of exercise: resistive Bed Mobility SBA, requires increased time. Assistive Device: bed rails Roll Left, Level of [place]: stand by assist Roll Right, Level of [place]: supervised Scoot/Bridge, Level of [place]: supervised Supine to Sit, Level of [place]: supervised Sit to Supine, Level of [place]: supervised Safety Issues: decreased use of legs for bridging/pushing Impairments: decreased flexibility, ROM decreased, strength decreased Transfers SBA for safety. Demonstrating good safety however fatigues quickly hindering functionality. Bed-Chair, Level of [place]: stand by assist Chair-Bed, Level of [place]: stand by assist [id number], Assistive Device: 2 wheeled walker (FWW) Sit-Stand, Level of [place]: stand by assist Stand-Sit, Level of [place]: stand by assist [id number], Assistive Device: 2 wheeled walker (FWW) Safety Issues: weight-shifting ability decreased Impairments: decreased flexibility, ROM decreased, strength decreased, impaired balance OT Goal Review Date Flowsheet Row Most Recent Value STG Review Date 01/08/17 at 01/08/2017 0935 LTG Review Date 01/25/17 at 01/08/2017 0935 Grooming Goal Flowsheet Row Most Recent Value STG Status continued at 01/13/2017 0800 STG [place] Level stand by assist at 01/04/2017 1455 STG Position sitting in chair [at sink] at 01/04/2017 1455 STG Adaptive Equipment none at 01/04/2017 1455 LTG Status continued at 01/13/2017 0800 LTG [place] modified independent at 01/08/2017 0935 LTG Position -- [sitting at sink] at 01/04/2017 1455 Bathing Goal Flowsheet Row Most Recent Value STG Status met at 01/11/2017 0805 STG [place] contact guard assist at 01/08/2017 0935 STG Adaptive Equpiment shower chair, tub bench at 01/08/2017 0935 LTG Status continued at 01/14/2017 1302 LTG [place] stand by assist at 01/08/2017 0935 UB Dressing Goal Flowsheet Row Most Recent Value STG Status met at 01/11/2017 0805 STG [place] Level stand by assist at 01/01/2017 1338 LTG Status met at 01/13/2017 0800 LTG [place] set up required at 01/01/2017 1338 LB Dressing Goal Flowsheet Row Most Recent Value STG Status progressing at 01/13/2017 0800 STG [place] Level contact guard assist at 01/08/2017 0935 STG Adaptive Equipment casserole preparer, sock-aid at 01/08/2017 0935 LTG Status progressing at 01/13/2017 0800 LTG [place] set up required at 01/08/2017 0935 Toileting Goal Flowsheet Row Most Recent Value STG Status continued at 01/13/2017 0800 STG [place] Level minimum assist (75% patient effort) at 01/01/2017 1338 LTG Status continued at 01/13/2017 0800 LTG [place] stand by assist at 01/08/2017 0935 Toilet Transfer Goal Flowsheet Row Most Recent Value STG Status continued at 01/13/2017 0800 STG [place] Level minimum assist (75% patient effort) at 01/01/2017 1338 LTG Status continued at 01/13/2017 0800 LTG [place] supervised at 01/08/2017 0935 Tub/Shower Transfer Goal Flowsheet Row Most Recent Value Tub/Shower Type tub/shower combo at 01/08/2017 0935 STG Status met at 01/10/2017 1809 STG [place] minimum assist (75% patient effort) at 01/03/2017 1909 STG Assistive Device tub bench at 01/03/2017 1909 LTG Status progressing at 01/13/2017 0800 LTG [place] modified independent at 01/08/2017 0935 LTG Assistive Device tub bench at 01/08/2017 0935 Additional Goals #1 OT Flowsheet Row Most Recent Value LTG Status met at 01/14/2017 1714 LTG Pt will demonstrate ability to complete HEP c SBA. at 01/14/2017 1714 Electronically signed by: Cira Hurst OT, 01/14/2017 17:15 lan of Care - Maria Dolores, Carine Moncada RN - 01/14/2017 4:42 PM PDTProblem: Patient Care Overview (Adult) Goal: Care Team Goals & Evaluation PROBLEM-RELATED GOALS: 3. Geovany will call out appropriately for assistance and have no falls during hospitalization through 01/18/2017. 4. Cryss pain will be controlled to 4/10 to allow for activity and rest through 01/18/2017 . 5. Geovany will eat 75-100% most meals and accept health shakes through 01/18/2017. 6. Geovany will have a bm qod while in rehab through 01/18/2017. 7. Gevoany will void w/o difficulties after catheter removal by 01/18/2017. 8. Cryss skin tears and abrasions will heal w/o s/sx infection 01/18/2017. 9. Geovany will transfer with 1 person A by 01/18/2017. 10.Geovany will be SBA- setup for his ADLs & functional mobility by 01/25/2017. 11. Geovany will be able to amb in room mod-I with FWW by 01/15/17. STRATEGY TO ACHIEVE GOALS: - Monitor for s/sx pain and medicate prn - Monitor for s/sx infection, clean wounds prn and perform dressing changes prn - Monitor bm's and medicate prn - Encourage po intake and ensure pt is drinking health shakes - [place] cath care q shift. - Encourage independence with ambulation and ensure safe transfers - Active participation in OT sessions -Active participate with PT. Outcome: Improving Goal Evaluation: alert and pleasant one person assist with fww incisions open to air healing well drsg to s kin tears intact placed cream to dry skin and cracked left heal bid f/c dc'd taoday monitori ng pvr's bm yesterday pain medication and muscle relaxant given for back pain lan of Care - Odell Kim, DIGITAL ADVERTISING ANALYST - 01/14/2017 3:20 PM PDTFormatting of this note might be different from the or iginal. Problem: Patient Care Overview (Adult) Goal: Care Team Goals & Evaluation PROBLEM-RELATED GOALS: 3. Geovany will call out appropriately for assistance and have no falls during hospitalization through 01/18/2017. 4. Cryss pain will be controlled to 10 to allow for activity and rest through 01/18/2017 . 5. Geovany will eat 75-100% most meals and accept health shakes through 01/18/2017. 6. Geovany will have a bm qod while in rehab through 01/18/2017. 7. Geovany will void w/o difficulties after catheter removal by 01/18/2017. 8. Geovany's skin tears and abrasions will heal w/o s/sx infection 01/18/2017. 9. Geovany will transfer with 1 person A by 01/18/2017. 10.Geovany will be SBA- setup for his ADLs & functional mobility by 01/25/2017. 11. Geovany will be able to amb in room mod-I with FWW by 01/15/17. STRATEGY TO ACHIEVE GOALS: - Monitor for s/sx pain and medicate prn - Monitor for s/sx infection, clean wounds prn and perform dressing changes prn - Monitor bm's and medicate prn - Encourage po intake and ensure pt is drinking health shakes - [place] cath care q shift. - Encourage independence with ambulation and ensure safe transfers - Active participation in OT sessions -Active participate with PT. Outcome: Improving IRF Physical Therapy Plan of Care Treatment Note Summary: Pt pleasant and motivated to participate in PT. Pt reports that he has been levi holguin back spasms, RN aware. Pt provided HEP handout. Pt demos good understanding of therex requ iring minimal v/c for technique. Pt able to complete 12 steps on rehab stairs, required seat ed rest of ~5 minutes. Block gt training in baer with focus for pt to know when he needs to sit down and rest without therapist input. Pt getting better body awareness still required c ueing 35% stop and rest. Pt able to walk 80ft, however would not be safe to do so without corcoran pervision and w/c follow. Physical Therapy Discharge Recommendations are: Recommended discharge disposition: home with assist Post discharge physical therapy recommendation: home health, outpatient therapy, pt is mot ivated participant Equipment Recommendations: 2 wheeled walker (FWW) Planned Interventions: balance training, bed mobility training, gait training, home exerci se program, patient/family education, orthotic fitting/training, transfer training, wheelcha ir management/propulsion training, ROM (Range of Motion), stair training, strengthening Frequency: (1-2x/day) Patient Status/Goals: Reflects last filed data and may be from multiple contributors. Bed Mobility Assistive Device: bed rails Roll Left, Level of [place]: modified independent Roll Right, Level of [place]: modified independent Scoot/Bridge, Level of [place]: independent Supine to Sit, Level of [place]: modified independent Sit to Supine, Level of [place]: modified independent Safety Issues: decreased use of legs for bridging/pushing Impairments: decreased flexibility, ROM decreased, strength decreased Transfers pt with good sequencing and handplacement Bed-Chair, Level of [place]: supervised Chair-Bed, Level of [place]: supervised [id number], Assistive Device: 2 wheeled walker (FWW) Sit-Stand, Level of [place]: supervised Stand-Sit, Level of [place]: supervised [id number], Assistive Device: 2 wheeled walker (FWW) Maintain Weight Bearing Status: (WBAT) Safety Issues: weight-shifting ability decreased Impairments: decreased flexibility, ROM decreased, strength decreased, impaired balance, pa in, postural control impaired Gait showing improvement for gt distance and being aware of when his legs are getting tired so h e can safely sit down Level of [place]: stand by assist Assistive Device: 2 wheeled walker (FWW) Distance (feet): 30 x 3, 80 Stairs pt SBA for stairs Number of Stairs: 12 Handrail Location: both sides Level of [place]: stand by assist Assistive Device: 2 rails Technique Used: step to step (ascending), step to step (descending) Maintain Weight Bearing Status: (.) Safety Issues: balance decreased during turns, weight-shifting ability decreased Impairments: pain, impaired balance, strength decreased, motor control impaired, decreased flexibility, ROM decreased Therapeutic Exercise Instructed in HEP Bed exercises: bilateral, ankle pumps, quad sets, glut sets, hip abduction/adduction, heel slides, short arc quads, bridging Repetitions: x12 PT Goal Review Date Flowsheet Row Most Recent Value STG Review Date 01/08/17 at 01/01/2017 1115 LTG Review Date 01/22/17 at 01/01/2017 1115 All Bed Mobility Goal Flowsheet Row Most Recent Value STG Status discontinued at 01/04/2017 1200 STG [place] Level -- [.] at 01/04/2017 1200 LTG Status -- [.] at 01/04/2017 1200 LTG [place] Level -- [.] at 01/04/2017 1200 Roll Left/Right Goal Flowsheet Row Most Recent Value STG Status new, met at 01/08/2017 1435 STG [place] Level modified independent at 01/08/2017 1435 STG Assistive Device none at 01/08/2017 1435 LTG Status met at 01/13/2017 1339 LTG [place] independent at 01/08/2017 1435 Scoot/Bridge Goal Flowsheet Row Most Recent Value STG Status met at 01/04/2017 1200 STG [place] contact guard assist at 01/01/2017 1115 LTG Status met at 01/08/2017 1435 LTG [place] independent at 01/07/2017 1345 Omlks[place]-Ums-Zjhwcc Goal Flowsheet Row Most Recent Value STG Status met at 01/06/2017 1200 STG [place] contact guard assist at 01/01/2017 1115 STG Assistive Device bed rails at 01/01/2017 1115 LTG Status progressing at 01/14/2017 1640 LTG [place] independent at 01/08/2017 1100 LTG Assistive Device bed rails at 01/01/2017 1115 Ejncnchty-Zvd-Xtyftjrwk Goal Flowsheet Row Most Recent Value STG Status discontinued at 01/04/2017 1200 STG [place] Level -- [.] at 01/04/2017 1200 STG Assistive Device -- [.] at 01/04/2017 1200 LTG Status -- [.] at 01/04/2017 1200 LTG [place] Level -- [.] at 01/04/2017 1200 All Transfers Goal Flowsheet Row Most Recent Value STG Status met at 01/04/2017 1200 STG [place] contact guard assist at 01/01/2017 1115 STG Comments Using Sanam Thaddeus at 01/01/2017 1115 LTG Status progressing at 01/14/2017 1640 LTG [place] modified independent at 01/01/2017 1115 LTG Assistive Device 2 wheeled walker (FWW) at 01/01/2017 1115 Gait Goal Flowsheet Row Most Recent Value STG Status met at 01/12/2017 1510 STG [place] minimum assist (75% patient effort) at 01/01/2017 1115 STG Assistive Device 2 wheeled walker (FWW) at 01/01/2017 1115 STG Distance (feet) 15 at 01/01/2017 1115 LTG Status continued at 01/14/2017 1110 LTG [place] modified independent at 01/01/2017 1115 LTG Assistive Device 2 wheeled walker (FWW) at 01/01/2017 1115 LTG Distance (feet) 50 at 01/01/2017 1115 Stair Goal Flowsheet Row Most Recent Value STG Status met at 01/09/2017 1155 STG [place] minimum assist (75% patient effort) at 01/01/2017 1115 STG Assistive Device 2 rails at 01/01/2017 1115 STG Number of Stairs 8 at 01/01/2017 1115 LTG Status progressing at 01/14/2017 1640 LTG [place] modified independent at 01/01/2017 1115 LTG Assistive Device 2 rails at 01/01/2017 1115 LTG Number of Stairs 8 at 01/01/2017 1115 Wheelchair Goal Flowsheet Row Most Recent Value STG Status discontinued at 01/05/2017 1200 STG -- [.] at 01/05/2017 1200 LTG Status -- [.] at 01/05/2017 1200 Additional Goal #1 PT Flowsheet Row Most Recent Value STG Status met at 01/03/2017 1200 STG Pt will tolerate standing at Sanam Chemabrianda x 1min w/ supervision only at 01/01/2017 1115 LTG Status met at 01/04/2017 1450 LTG pt kenneth standing with fww for 3 minutes supervised at 01/01/2017 1115 Electronically signed by: Odell Kim PTA, 01/14/2017 16:45 lan of Care - Clarence Peng, TRAFFIC SURVEY TECHNICIAN - 01/14/2017 3:10 PM PDTProblem: Discharge Planning Goal: Patient will be discharged in a safe manner Outcome: Improving Visited with the patient and his over the phone. The railing for the front steps shou ld be installed by the end of today. The patient's has picked up taxi vouchers for tra nsportation within [place]. The patient's has macular degeneration and is legally bl ind.Electronically signed by: DONNA Solomon 01/14/2017 15:10 lan of Care - Cira Hurst OT - 01/14/2017 1:11 PM PDTFormatting of this note might be different f rom the original. Problem: Patient Care Overview (Adult) Goal: Care Team Goals & Evaluation PROBLEM-RELATED GOALS: 3. Geovany will call out appropriately for assistance and have no falls during hospitalization through 01/18/2017. 4. Geovany's pain will be controlled to 4/10 to allow for activity and rest through 01/18/2017 . 5. Geovany will eat 75-100% most meals and accept health shakes through 01/18/2017. 6. Geovany will have a bm qod while in rehab through 01/18/2017. 7. Geovany will void w/o difficulties after catheter removal by 01/18/2017. 8. Geovany's skin tears and abrasions will heal w/o s/sx infection 01/18/2017. 9. Geovany will transfer with 1 person A by 01/18/2017. 10.Geovany will be SBA- setup for his ADLs & functional mobility by 01/25/2017. STRATEGY TO ACHIEVE GOALS: - Monitor for s/sx pain and medicate prn - Monitor for s/sx infection, clean wounds prn and perform dressing changes prn - Monitor bm's and medicate prn - Encourage po intake and ensure pt is drinking health shakes - [place] cath care q shift. - Encourage independence with ambulation and ensure safe transfers - Active participation in OT sessions Outcome: Improving IRF Occupational Therapy Plan of Care Treatment Note Summary: Pt encountered supine in bed, reports decreased pain this am. Pt required SBA to transfer to standing and engage in functional mobility ~ 40 feet. Pt also required a seated rest break after ~ 20 feet. Pt transfered to tub bench c CGA for safety and vc and tcs for t echnique. Pt required min A to complete LB dressing, demonstrating SOB c task. Pt returned t o room and transfered to supine c SBA. Pt continues to demonstrate decreased activity tolera nce, SOB, and need for assist c ADLs. At this time OT reccomends pt dc to an assisted living facility d/t the safety risk for pt returning home. OT discussed this c pt and he demonstra darek understanding via teachback, however, he refused reporting "I will only go home". Pt deneen l continue to benefit from skilled OT services to increase ADL independence and activity kenneth erance. Occupational Therapy Discharge Recommendations are: Recommended discharge disposition: home with assist Post discharge occupational therapy recommendation: home health, pt is motivated participa nt Equipment Recommendations: 2 wheeled walker (FWW), casserole preparer, sock aide, tub bench Planned Interventions:ADL retraining, strengthening, transfer training, bed mobility traini ng, IADL retraining, balance training, prosthetic fitting/training, ROM (Range of Motion) (e jeanine mgmt as indicated) Recommended Frequency: (6-7x/week) Patient Status/Goals: Reflects last filed data and may be from multiple contributors. ADLs Pt completed shower w/o physical assist this AM. Bathing, Level of [place]: supervised, set up required Assistive Device: grab bars, hand-held shower head, tub bench Bathing Assess/Train, Position: sitting Bathing Assess/Train, Impairments: strength decreased, impaired balance Pt refused sock aide d/t report of "wet feet". Required min A to complete. LB Dressing, Level of [place]: minimal assist (75% patient effort), verbal cues requir ed Assistive Device: casserole preparer LB Dressing Assess/Train, Position: sitting, standing LB Dressing Assess/Train, Impairments: impaired balance Pt completed grooming standing at sink c CGA for safety. Required cues to initiate rest [place]. Grooming, Level of [place]: contact guard assist Assistive Device: electric toothbrush Grooming Assess/Train, Impairments: impaired balance, strength decreased Functional Endurance Improved this am. Bed Mobility SBA, however, requires increased time and experiences extreme exertion. Assistive Device: bed rails Roll Left, Level of [place]: modified independent Roll Right, Level of [place]: modified independent Scoot/Bridge, Level of [place]: independent Supine to Sit, Level of [place]: modified independent Sit to Supine, Level of [place]: modified independent Safety Issues: decreased use of legs for bridging/pushing Impairments: decreased flexibility, ROM decreased, strength decreased Transfers CGA for safety c transfers, required verbal cues and tactile cues for safety c FWW. Bed-Chair, Level of [place]: verbal cues required, contact guard assist Chair-Bed, Level of [place]: verbal cues required, contact guard assist [id number], Assistive Device: 2 wheeled walker (FWW) Sit-Stand, Level of [place]: contact guard assist Stand-Sit, Level of [place]: contact guard assist [id number], Assistive Device: 2 wheeled walker (FWW) Tub, Level of [place]: SBA Tub, Assistive Device: 2 wheeled walker (FWW), tub bench Safety Issues: weight-shifting ability decreased Impairments: decreased flexibility, ROM decreased, strength decreased, impaired balance OT Goal Review Date Flowsheet Row Most Recent Value STG Review Date 01/08/17 at 01/08/2017 0935 LTG Review Date 01/25/17 at 01/08/2017 0935 Grooming Goal Flowsheet Row Most Recent Value STG Status continued at 01/13/2017 0800 STG [place] stand by assist at 01/04/2017 1455 STG Position sitting in chair [at sink] at 01/04/2017 1455 STG Adaptive Equipment none at 01/04/2017 1455 LTG Status continued at 01/13/2017 0800 LTG [place] modified independent at 01/08/2017 0935 LTG Position -- [sitting at sink] at 01/04/2017 1455 Bathing Goal Flowsheet Row Most Recent Value STG Status met at 01/11/2017 0805 STG [place] Level contact guard assist at 01/08/2017 0935 STG Adaptive Equpiment shower chair, tub bench at 01/08/2017 0935 LTG Status continued at 01/14/2017 1302 LTG [place] Level stand by assist at 01/08/2017 0935 UB Dressing Goal Flowsheet Row Most Recent Value STG Status met at 01/11/2017 0805 STG [place] Level stand by assist at 01/01/2017 1338 LTG Status met at 01/13/2017 0800 LTG [place] Level set up required at 01/01/2017 1338 LB Dressing Goal Flowsheet Row Most Recent Value STG Status progressing at 01/13/2017 0800 STG [place] Level contact guard assist at 01/08/2017 0935 STG Adaptive Equipment casserole preparer, sock-aid at 01/08/2017 0935 LTG Status progressing at 01/13/2017 0800 LTG [place] Level set up required at 01/08/2017 0935 Toileting Goal Flowsheet Row Most Recent Value STG Status continued at 01/13/2017 0800 STG [place] Level minimum assist (75% patient effort) at 01/01/2017 1338 LTG Status continued at 01/13/2017 0800 LTG [place] Level stand by assist at 01/08/2017 0935 Toilet Transfer Goal Flowsheet Row Most Recent Value STG Status continued at 01/13/2017 0800 STG [place] Level minimum assist (75% patient effort) at 01/01/2017 1338 LTG Status continued at 01/13/2017 0800 LTG [place] Level supervised at 01/08/2017 0935 Tub/Shower Transfer Goal Flowsheet Row Most Recent Value Tub/Shower Type tub/shower combo at 01/08/2017 0935 STG Status met at 01/10/2017 1809 STG [place] Level minimum assist (75% patient effort) at 01/03/2017 1909 STG Assistive Device tub bench at 01/03/2017 1909 LTG Status progressing at 01/13/2017 0800 LTG [place] Level modified independent at 01/08/2017 0935 LTG Assistive Device tub bench at 01/08/2017 0935 Electronically signed by: Cira Hurst OT, 01/14/2017 13:09 lan of Care - Catherine Murray, PT - 01/14/2017 11:10 AM PDTFormatting of this note might be different from t he original. Problem: Patient Care Overview (Adult) Goal: Care Team Goals & Evaluation PROBLEM-RELATED GOALS: 3. Geovany will call out appropriately for assistance and have no falls during hospitalization through 01/18/2017. 4. Geovany's pain will be controlled to 4/10 to allow for activity and rest through 01/18/2017 . 5. Geovany will eat 75-100% most meals and accept health shakes through 01/18/2017. 6. Geovany will have a bm qod while in rehab through 01/18/2017. 7. Geovany will void w/o difficulties after catheter removal by 01/18/2017. 8. Geovany's skin tears and abrasions will heal w/o s/sx infection 01/18/2017. 9. Geovany will transfer with 1 person A by 01/18/2017. 10.Geovany will be SBA- setup for his ADLs & functional mobility by 01/25/2017. 11. Geovany will be able to amb in room mod-I with FWW by 01/15/17. STRATEGY TO ACHIEVE GOALS: - Monitor for s/sx pain and medicate prn - Monitor for s/sx infection, clean wounds prn and perform dressing changes prn - Monitor bm's and medicate prn - Encourage po intake and ensure pt is drinking health shakes - [place] cath care q shift. - Encourage independence with ambulation and ensure safe transfers - Active participation in OT sessions -Active participate with PT. Physical Therapy Plan of Care Treatment Note Summary: Pt presents in bed; says his neck discomfort flared up earlier but sx resolved wi th lying on warm towel. Pt reports that he has been doing his bed ex but still wants a print ed HEP. Says that he thought things were all set up but that his is struggling to find someone to put the rail on his front steps. Pt seen for treatment beginning with continued e d re: fall risk and how we are recommending that he not go home but go to temporary assisted living apt while his legs heal and then finding a single level home or apt, preferably in a place where he could get help if needed. Then reviewed fall risk with pt and instructed him to not walk greater than 50 ft at a time at home and to use wheelchair for mobility when hi s LEs are tired or feeling weak. Timed Up and Go (TUG) test performed and then reviewed resu lts with pt, explaining how this is further evidence that he is at increased risk of falling , as best score was 21 sec. Normal speed for his age group is 11.3 sec abd > 13.5 sec indica lizzie high fall risk in elderly pts and > 11.1 sec indicates increased fall risk in pts with v estibular disorders. Pt reports that he thinks that he does have vestibular problems, as he has had multiple falls and near falls in the past and that he just suddenly staggers to one side. Says that when he fell this time and fractured his legs, he had bent over and then yo t over backwards when he stood up. Pt says that he has not wanted to use a walker in the pas t because he is too proud, but is willing to use a walker and will use the wheelchair until his legs heal. Also pt says that he is planning to seek physician assistance re: his vestibu lar issues after discharge as well. Pt also told this PT for the first time that he sometime s has double vision that comes on suddenly as well. Reports that he pulls over if this happe ns when he is driving. No c/o double vision today or during previous therapy sessions when w orking with this PT. Pt wanting to visit with his daughter, so requesting shortened session this a.m. Will plan to give pt printed HEP and do stair training this p.m. Physical Therapy Discharge Recommendations are: Recommended discharge disposition: home with assist Post discharge physical therapy recommendation: home health, outpatient therapy, pt is mot ivated participant Equipment Recommendations: 2 wheeled walker (FWW) Planned Interventions: balance training, bed mobility training, gait training, home exerci se program, patient/family education, orthotic fitting/training, transfer training, wheelcha ir management/propulsion training, ROM (Range of Motion), stair training, strengthening Recommended Frequency: (1-2x/day) Patient Status/Goals: Reflects last filed data and may be from multiple contributors. Gait Pt with improving gait speed and pattern today vs. yesterday but still with slower than nor mal speed and LEs become visibly unsteady as pt fatigues. Verbal cues provided for improved gait pattern and posture, as well as to step up inside FWW. Level of [place]: stand by assist Assistive Device: 2 wheeled walker (FWW) Distance (feet): 20 ft x 3 Transfers Pt performing sit <> stand and bed <> chair transfers with close SBA today with no buckling or LOB. Bed-Chair, Level of [place]: stand by assist Chair-Bed, Level of [place]: stand by assist [id number], Assistive Device: 2 wheeled walker (FWW) Sit-Stand, Level of [place]: stand by assist Stand-Sit, Level of [place]: stand by assist [id number]-[id number], Assistive Device: 2 wheeled walker (FWW) Maintain Weight Bearing Status: (WBAT) Safety Issues: weight-shifting ability decreased Impairments: decreased flexibility, ROM decreased, strength decreased, impaired balance, pa in, postural control impaired Bed Mobility Bed mobility completed on flat bed with mattress max inflated. Pt still requires increased time and effort to perform bed mobility. Assistive Device: bed rails Roll Left, Level of [place]: modified independent Scoot/Bridge, Level of [place]: independent Supine to Sit, Level of [place]: modified independent Sit to Supine, Level of [place]: modified independent Safety Issues: decreased use of legs for bridging/pushing Impairments: decreased flexibility, ROM decreased, strength decreased Therapeutic Exercise Bed exercises: bilateral, ankle pumps, hip abduction/adduction, heel slides, short arc quad s, bridging Repetitions: x 15 Functional Endurance Impaired but improving; pt able to recover faster, so only required 1-2 min rest breaks bet ween activities. PT Goal Review Date Flowsheet Row Most Recent Value STG Review Date 01/08/17 at 01/01/2017 1115 LTG Review Date 01/22/17 at 01/01/2017 1115 All Bed Mobility Goal Flowsheet Row Most Recent Value STG Status discontinued at 01/04/2017 1200 STG [place] Level -- [.] at 01/04/2017 1200 LTG Status -- [.] at 01/04/2017 1200 LTG [place] Level -- [.] at 01/04/2017 1200 Roll Left/Right Goal Flowsheet Row Most Recent Value STG Status new, met at 01/08/2017 1435 STG [place] Level modified independent at 01/08/2017 1435 STG Assistive Device none at 01/08/2017 1435 LTG Status met at 01/13/2017 1339 LTG [place] Level independent at 01/08/2017 1435 Scoot/Bridge Goal Flowsheet Row Most Recent Value STG Status met at 01/04/2017 1200 STG [place] Level contact guard assist at 01/01/2017 1115 LTG Status met at 01/08/2017 1435 LTG [place] Level independent at 01/07/2017 1345 Yvuski-Kej-Bfqeyo Goal Flowsheet Row Most Recent Value STG Status met at 01/06/2017 1200 STG [place] Level contact guard assist at 01/01/2017 1115 STG Assistive Device bed rails at 01/01/2017 1115 LTG Status progressing at 01/12/2017 1510 LTG [place] Level independent at 01/08/2017 1100 LTG Assistive Device bed rails at 01/01/2017 1115 Xktcwfgew-Vjh-Pzfosgchd Goal Flowsheet Row Most Recent Value STG Status discontinued at 01/04/2017 1200 STG [place] Level -- [.] at 01/04/2017 1200 STG Assistive Device -- [.] at 01/04/2017 1200 LTG Status -- [.] at 01/04/2017 1200 LTG [place] Level -- [.] at 01/04/2017 1200 All Transfers Goal Flowsheet Row Most Recent Value STG Status met at 01/04/2017 1200 STG [place] Level contact guard assist at 01/01/2017 1115 STG Comments Using Sanam Travis at 01/01/2017 1115 LTG Status progressing at 01/14/2017 1110 LTG [place] Level modified independent at 01/01/2017 1115 LTG Assistive Device 2 wheeled walker (FWW) at 01/01/2017 1115 Gait Goal Flowsheet Row Most Recent Value STG Status met at 01/12/2017 1510 STG [place] Level minimum assist (75% patient effort) at 01/01/2017 1115 STG Assistive Device 2 wheeled walker (FWW) at 01/01/2017 1115 STG Distance (feet) 15 at 01/01/2017 1115 LTG Status continued at 01/14/2017 1110 LTG [place] Level modified independent at 01/01/2017 1115 LTG Assistive Device 2 wheeled walker (FWW) at 01/01/2017 1115 LTG Distance (feet) 50 at 01/01/2017 1115 Stair Goal Flowsheet Row Most Recent Value STG Status met at 01/09/2017 1155 STG [place] Level minimum assist (75% patient effort) at 01/01/2017 1115 STG Assistive Device 2 rails at 01/01/2017 1115 STG Number of Stairs 8 at 01/01/2017 1115 LTG Status progressing at 01/13/2017 1339 LTG [place] Level modified independent at 01/01/2017 1115 LTG Assistive Device 2 rails at 01/01/2017 1115 LTG Number of Stairs 8 at 01/01/2017 1115 Wheelchair Goal Flowsheet Row Most Recent Value STG Status discontinued at 01/05/2017 1200 STG -- [.] at 01/05/2017 1200 LTG Status -- [.] at 01/05/2017 1200 Additional Goal #1 PT Flowsheet Row Most Recent Value STG Status met at 01/03/2017 1200 STG Pt will tolerate standing at Sanam Stedy x 1min w/ supervision only at 01/01/2017 1115 LTG Status met at 01/04/2017 1450 LTG pt kenneth standing with fww for 3 minutes supervised at 01/01/2017 1115 Electronically signed by: Catherine Manzo PT, 01/14/2017 13:31 atient Care Ko Staples, Deonte Roman MD - 01/14/2017 8:12 AM PDT [facility] Inpatient Rehabilitation Facility Individualized Overall Plan of Care Weekly Team Conference Patient Identification Dora Arellano is a 86 y.o. male. : 1930 Admit Date: 12/31/2016 Attending Provider: Sajan Hernandez MD Primary Care Physician: Carlos Alberto Galeas MD Admitting Diagnosis: Right femur fx, Left peritrochanteric fx Team Conference Date: 01/15/2017 Medical Prognosis and need for Rehabilitation Physician oversight and anticipated Rehabilit ation Physician interventions: [place] for functional progress is good. Physician Summary: Mr. Arellano is a 86-year-old man with a history [...] be on low side despite midodrine. P atient reports he has similar issues with BP [...] for imaging. He is on warfarin, no ussan dence of retroperitineal bleed on exam, also pain resolves with muscle relaxer #Resp - resolved hypoxic respiratory failure likely 2/2 volume overload -Daily weights, CVS as above #Delerium - improving, in setting of bilateral femur fractures -Avoid diphenhydramine, benzodiazepines, scopolamine, and metoclopramide. Limit LADLE WATCHER active medications using lowest effective dose. -Implement environmental modifications (window bed, maintain well-lit room during day, min imize nighttime disturbance, and keep calendars and clock visible). -OOB to chair TID with meals if able. #Urinary retention - trial velarde out 01/14, on max doses tamsulosin, doing IC for now. -Cont tamsulosin 0.8mg #DVT prophylaxis: -see CVS above #Insomnia: Ambien ordered today, review tomorrow for efficacy. Rehabilitation Nursing Summary: Alert and pleasant. One person standby assist with ambula tion with front wheel walker. incisions open to air healing well. Dressings to skin tears in tact. Placed cream to dry skin and cracked left heel twice a day. Velarde catheter dc'd 01/14, monitoring post void residual bladder scans. Bowel movement 01/13. Pain medication and muscle relaxant given for back pain with good effect. Safety Management: Elopement/wander risk: No General Risk Interventions: Cognitive Impairment Interventions: Altered Eliminations/Toileting interventions: Safety Management Goal: pt will call out 100% of the time for assistance and have no falls during hospitalization Pain Management: Pain ratin-3/10 Pain Management Goal: pain will be controlled to allow for activity and rest Skin Management: Arie Score: 19 Skin Management Goal: skin tears and abrasions will heal w/o s/sx infection Bladder Management: FIM BladderScore: 5; Evidence: 6 Medication [place], 6 Urinal [place], 5 Nursing Empties # Bladder accidents last 7 days: 0 Bladder Management Goal: pt will void w/o difficulties and not require to be IC Bowel Management: FIM Bowel Score: 5; Evidence: 6 Medication [place], 5 BS Commode Supervision # Bowel accidents last 7 days: 0 Bowel Management Goal: pt will be continent of bowel using prn rx, bm in BR and/or BSC Nutrition Management: Nutrition Management Goal: pt will eat 75% most meals and drink adequate amount fluids Nightime Management: Nighttime Management Goal: pt will report adequate amount sleep and will call out for assi stance 100% of the time during the night Mobility Summary: Pt is still limited by LE pain and stiffness, back and neck spasms and p ain, and limited strength and endurance, as well as significant balance deficits. Pt is now mobilizing at a SBA level with use of FWW for gait and has been able to walk 80 ft on best t rial, but is only safe to go this far with assistance and wheelchair follow as he continues to have impaired insight re: his deficits and decreased kinesthetic awareness. Recommend bossman t pt is not safe to walk > 50 ft on his own, as he cannot consistently tell when his legs ar e fatiguing. Also pt is able to now ascend and descend 12 steps but with increased time and effort. Pt will need a wheelchair for safety household mobility when he is fatigued. He is a t high risk of falling, as indicated by fall here in the hospital a few days ago and best TU G score is 21 sec. Pt also reports having vestibular issues and double vision at times previ ously; has not c/o vestibular sx here during his inpt rehab stay but reports that he "had no balance" when sometimes when he was falling at home and also reports having episodes of ricarda ble vision at times as well. Have recommended that pt see a physician if these sx recur, and he says that he will follow up with a ENT after he goes home. Pt states understanding of ho w he is at increased fall risk and how we are recommending that he not go home but go to [facility] assisted living apt while his legs heal and then finding a single level home or apt, preferably in a place where he could get help if needed. However, he says that he has put a lot of work into his home and he and his are choosing to have him go back there in spit e of the risk. Transfers FIM Bed/Chair/Wheelchair Score: 3; Evidence:6 Extra Time, 6 Grab Bar, 6 Walker/Crutch/Ca ne, 5 Safety Supervision, 4 Steadying, 3 Lift Two Legs FIM Toilet Transfer Score: 4; Evidence: 4 Steadying FIM Tub/Shower Transfer Score: 5; Evidence: 5 Safety Supervision Locomotion FIM Walk Score: 2; Evidence: 2 Pt 25-49% Effort/50-149ft FIM Distance Walked(feet): 50 feet FIM Wheelchair Score: 1; Evidence: WC Manual, 1 Travels <50 ft Level of [place]: set up required Propulsion Technique: bilateral UE's, bilateral LE's Components: brakes, foot rests/ foot platforms Components Management Assistance: minimum assist/contact guard assist (75% patients effort ) Wheelchair Mobility Comments: (.) FIM Stairs Score :2; Evidence: 2 4-6 Stairs w/Assist PT GOALS PT Goal Review Date Flowsheet Row Most Recent Value STG Review Date 01/08/17 at 01/01/2017 1115 LTG Review Date 01/22/17 at 01/01/2017 1115 All Bed Mobility Goal Flowsheet Row Most Recent Value STG Status discontinued at 01/04/2017 1200 STG [place] Level -- [.] at 01/04/2017 1200 LTG Status -- [.] at 01/04/2017 1200 LTG [place] Level -- [.] at 01/04/2017 1200 Roll Left/Right Goal Flowsheet Row Most Recent Value STG Status new, met at 01/08/2017 1435 STG [place] Level modified independent at 01/08/2017 1435 STG Assistive Device none at 01/08/2017 1435 LTG Status met at 01/13/2017 1339 LTG [place] Level independent at 01/08/2017 1435 Scoot/Bridge Goal Flowsheet Row Most Recent Value STG Status met at 01/04/2017 1200 STG [place] Level contact guard assist at 01/01/2017 1115 LTG Status met at 01/08/2017 1435 LTG [place] Level independent at 01/07/2017 1345 Tmpjqv-Cla-Cdzlbz Goal Flowsheet Row Most Recent Value STG Status met at 01/06/2017 1200 STG [place] Level contact guard assist at 01/01/2017 1115 STG Assistive Device bed rails at 01/01/2017 1115 LTG Status progressing at 01/14/2017 1640 LTG [place] Level independent at 01/08/2017 1100 LTG Assistive Device bed rails at 01/01/2017 1115 Vxzqwlvsp-Gwj-Vwnkgqhmb Goal Flowsheet Row Most Recent Value STG Status discontinued at 01/04/2017 1200 STG [place] Level -- [.] at 01/04/2017 1200 STG Assistive Device -- [.] at 01/04/2017 1200 LTG Status -- [.] at 01/04/2017 1200 LTG [place] Level -- [.] at 01/04/2017 1200 All Transfers Goal Flowsheet Row Most Recent Value STG Status met at 01/04/2017 1200 STG [place] Level contact guard assist at 01/01/2017 1115 STG Comments Using Sanam Travis at 01/01/2017 1115 LTG Status progressing at 01/14/2017 1640 LTG [place] Level modified independent at 01/01/2017 1115 LTG Assistive Device 2 wheeled walker (FWW) at 01/01/2017 1115 Gait Goal Flowsheet Row Most Recent Value STG Status met at 01/12/2017 1510 STG [place] Level minimum assist (75% patient effort) at 01/01/2017 1115 STG Assistive Device 2 wheeled walker (FWW) at 01/01/2017 1115 STG Distance (feet) 15 at 01/01/2017 1115 LTG Status continued at 01/14/2017 1110 LTG [place] Level modified independent at 01/01/2017 1115 LTG Assistive Device 2 wheeled walker (FWW) at 01/01/2017 1115 LTG Distance (feet) 50 at 01/01/2017 1115 Stair Goal Flowsheet Row Most Recent Value STG Status met at 01/09/2017 1155 STG [place] Level minimum assist (75% patient effort) at 01/01/2017 1115 STG Assistive Device 2 rails at 01/01/2017 1115 STG Number of Stairs 8 at 01/01/2017 1115 LTG Status progressing at 01/14/2017 1640 LTG [place] Level modified independent at 01/01/2017 1115 LTG Assistive Device 2 rails at 01/01/2017 1115 LTG Number of Stairs 8 at 01/01/2017 1115 Wheelchair Goal Flowsheet Row Most Recent Value STG Status discontinued at 01/05/2017 1200 STG -- [.] at 01/05/2017 1200 LTG Status -- [.] at 01/05/2017 1200 Additional Goal #1 PT Flowsheet Row Most Recent Value STG Status met at 01/03/2017 1200 STG Pt will tolerate standing at Sanam Stedy x 1min w/ supervision only at 01/01/2017 1115 LTG Status met at 01/04/2017 1450 LTG pt kenneth standing with fww for 3 minutes supervised at 01/01/2017 1115 Self Care Summary: Pt encountered supine in bed, reports increased pain this pm. Pt require d SBA to transfer to EOB. Pt engaged in functional mobility to therapy gym c SBA for safety, ~ 30 feet. Pt completed 2 sets x 10 reps BUE internal external rotation, bicep curls, kathi p kick backs, chest flys c 3lb weight. Pt required rest breaks following each rep. Pt asked to demonstrate HEP for OT and was unable to at this time. Will continue to work with OT to m eet goal of attaining I in HEP. Pt will benefit from skilled OT services to increase ADL ind ependence and activity tolerance. Pt continues to require supervision to complete ADLs and o ccasional CGA for safety. OT recommending assisted living for pt however, pt continues to de acosta. FIM Eating Score: 6; Evidence: FIM Grooming Score: 5; Evidence: 5 Get Items FIM Bathing Score: 5; Evidence: 5 Get Items, 5 Safety Supervison, 6 Long Handled Sponge FIM Dressing Upper Body Score: 5; Evidence:5 Get Clothing FIM Dressing Lower Body Score: 4; Evidence:Up/ Down Underwear, On/Off R Sock, On/Off L Sock, 5 Get Clothing, 5 Verbal Cues FIM Toileting Score: 4; Evidence:6 Extra Time, 6 Grab Bar, 5 Safety Supervision, 4 Stea dying, 4 Adjust Clothes OT Goals OT Goal Review Date Flowsheet Row Most Recent Value STG Review Date 01/08/17 at 01/08/2017 0935 LTG Review Date 01/25/17 at 01/08/2017 0935 Grooming Goal Flowsheet Row Most Recent Value STG Status continued at 01/13/2017 0800 STG [place] Level stand by assist at 01/04/2017 1455 STG Position sitting in chair [at sink] at 01/04/2017 1455 STG Adaptive Equipment none at 01/04/2017 1455 LTG Status continued at 01/13/2017 0800 LTG [place] Level modified independent at 01/08/2017 0935 LTG Position -- [sitting at sink] at 01/04/2017 1455 Bathing Goal Flowsheet Row Most Recent Value STG Status met at 01/11/2017 0805 STG [place] Level contact guard assist at 01/08/2017 0935 STG Adaptive Equpiment shower chair, tub bench at 01/08/2017 0935 LTG Status continued at 01/14/2017 1302 LTG [place] Level stand by assist at 01/08/2017 0935 UB Dressing Goal Flowsheet Row Most Recent Value STG Status met at 01/11/2017 0805 STG [place] Level stand by assist at 01/01/2017 1338 LTG Status met at 01/13/2017 0800 LTG [place] Level set up required at 01/01/2017 1338 LB Dressing Goal Flowsheet Row Most Recent Value STG Status progressing at 01/13/2017 0800 STG [place] Level contact guard assist at 01/08/2017 0935 STG Adaptive Equipment casserole preparer, sock-aid at 01/08/2017 0935 LTG Status progressing at 01/13/2017 0800 LTG [place] Level set up required at 01/08/2017 0935 Toileting Goal Flowsheet Row Most Recent Value STG Status continued at 01/13/2017 0800 STG [place] Level minimum assist (75% patient effort) at 01/01/2017 1338 LTG Status continued at 01/13/2017 0800 LTG [place] Level stand by assist at 01/08/2017 0935 Toilet Transfer Goal Flowsheet Row Most Recent Value STG Status continued at 01/13/2017 0800 STG [place] Level minimum assist (75% patient effort) at 01/01/2017 1338 LTG Status continued at 01/13/2017 0800 LTG [place] Level supervised at 01/08/2017 0935 Tub/Shower Transfer Goal Flowsheet Row Most Recent Value Tub/Shower Type tub/shower combo at 01/08/2017 0935 STG Status met at 01/10/2017 1809 STG [place] Level minimum assist (75% patient effort) at 01/03/2017 1909 STG Assistive Device tub bench at 01/03/2017 1909 LTG Status progressing at 01/13/2017 0800 LTG [place] Level modified independent at 01/08/2017 0935 LTG Assistive Device tub bench at 01/08/2017 0935 Additional Goals #1 OT Flowsheet Row Most Recent Value LTG Status met at 01/14/2017 1714 LTG Pt will demonstrate ability to complete HEP c SBA. at 01/14/2017 1714 Cognition/Communication Summary: Problem Solving Score: 6; Evidence: 6 Extra Time Memory Score: 7; Evidence: 7 Indep Recall Comprehension/AuditoryScore: 6; Evidence: 6 Needs Extra Time Verbal Expression Score: 7; Evidence: 7 Express Complex 100% Social Interaction Score: 6; Evidence:6 Extra Time Dysphagia/Swallow: ASSISTANCE COORDINATOR Goals Leisure/Community: Therapeutic day pass appropriate: No Education Caregiver training initiated: No Sexuality education initiated: No Other education initiated (see Patient Education activity): yes Recommended Discharge Equipment 2 wheeled walker (FWW), 2 wheeled walker (FWW), casserole preparer, sock aide, tub bench Barriers to Discharge Barriers to Discharge: Impaired mobility and impaired ability to complete ADLs. Barrier Resolution Plan: Continued therapy, securing appropriate equipment and hiring priv ate caregivers as needed. Post-Discharge Plan Setting: His home with his , who is legally blind, in [place] with a new rail on the front steps Level of Assist Recommended for Discharge: Modified independent to standby assist for mobi lity and transfers. Modified independent to minimal assist for ADLs. Anticipate post discharge services: Outpatient therapy, and paid care assistance Prosthetics/Orthotics therapeutic interventions recommended: w/c for extended gait Admission Date: 12/31/2016 ELOS: 3-4 days Projected DC Date: End of week if things work well Team Goals: 1. Mod I bed mobs 2. Mod I transfers 3. Mod I 50 feet gait with fww 4. Mod I dressing except help with socks 5. Mod I toileting 6. Family training done. 7. Voiding Independently without urinary retention. Participants: MD: Dr. Placido Staples RN: KARTHIKEYAN Vargas PT: Catherine Manzo DPT OT: Cira Hurst OTR/Marko ASSISTANCE COORDINATOR: N/A RAMIREZ/SW: DONNA Navarro Following interdisciplinary discussion and planning, I fully agree with the above. lan of Care - Alec, Prema Moncada RN - 01/14/2017 8:03 AM PDTProblem: Patient Care Overview (Adult) Goal: Care Team Goals & Evaluation PROBLEM-RELATED GOALS: 3. Geovany will call out appropriately for assistance and have no falls during hospitalization through 01/18/2017. 4. Geovany's pain will be controlled to 4/10 to allow for activity and rest through 01/18/2017 . 5. Geovany will eat 75-100% most meals and accept health shakes through 01/18/2017. 6. Geovany will have a bm qod while in rehab through 01/18/2017. 7. Geovany will void w/o difficulties after catheter removal by 01/18/2017. 8. Crsys skin tears and abrasions will heal w/o s/sx infection 01/18/2017. 9. Geovany will transfer with 1 person A by 01/18/2017. 10.Geovany will be SBA- setup for his ADLs & functional mobility by 01/25/2017. STRATEGY TO ACHIEVE GOALS: - Monitor for s/sx pain and medicate prn - Monitor for s/sx infection, clean wounds prn and perform dressing changes prn - Monitor bm's and medicate prn - Encourage po intake and ensure pt is drinking health shakes - Velarde cath care q shift. - Encourage independence with ambulation and ensure safe transfers - Active participation in OT sessions Outcome: Improving Goal Evaluation: Geovany continues to be alert and oriented x 4. He reported minimal aching pain and did not r equire pain medication. He did report difficulty with sleeping last night however. CMS abimbola nues to be intact and no changes to skin wounds/tears. Catheter is still in place and pt con tinues to need encouragement for po. He calls appropriately. Last BM was on the . lan of Care - Prema Michael RN - 01/14/2017 1:45 AM PDTReport received and assumed care of ptElectronicall y signed by Prema Michael RN at 01/14/2017 4:21 AM PDTPlan of Care - Hailee Kaminski RN - 01/13/2017 4:53 PM PDTProblem: Patient Care Overview (Adult) Goal: Care Team Goals & Evaluation PROBLEM-RELATED GOALS: 3. Droa will call out appropriately for assistance and have no falls during hospitalizati on through 01/18/17 4. Leighanns pain will be controlled to 4/10 to allow for activity and rest through 01/18/17 5. Dora will eat 75-100% most meals and accept health shakes through 01/18/17 6. Dora will have a bm qod while in rehab through 01/18/17 7. Dora will void w/o difficulties after catheter removal by 01/18/17 8. Leighanns skin tears and abrasions will heal w/o s/sx infection 9. Dora will transfer with 1 person A by 01/18/17 10. Geovany will be SBA- setup for his ADLs & functional mobility by 01/25/17. STRATEGY TO ACHIEVE GOALS: -monitor for s/sx pain and medicate prn -monitor for s/sx infection, clean wounds prn and perform dressing changes prn -monitor bm's and medicate prn -encourage po intake and ensure pt is drinking health shakes -Velarde cath care q shift. -encourage independence with ambulation and ensure safe transfers - Active participation in OT sessions Goal Evaluation: Pt participating with therapy. Pain controlled with routine Tramadol. States he still had t he kink in his shoulders and neck but declined need for a muscle relaxer today. Pt cont to n eed to be encouraged to increase his activity. Like to lie around in bed between therapy a l ot. Encouraged to be up for meals and to walk into the bathroom for all his ADL cares instea d of doing them at the bedside. Pt cont to have very fragile skin. Foam dressings are clean and dry. No new injury sites noted today. INR still >3 today. Coumadin being held. Velarde pat ent with clear lyric urine. Pt still needs encouraged to drink fluids. Steady assist with am bulation. Had a bm today after taking a stool softner and senna this am. lan of Care - Catherine Amaro, PT - 01/13/2017 1:30 PM PDTFormatting of this note might be different from dena arredondo original. Problem: Patient Care Overview (Adult) Goal: Care Team Goals & Evaluation PROBLEM-RELATED GOALS: 3. Dora will call out appropriately for assistance and have no falls during hospitalizati on through 01/18/17 4. Dora's pain will be controlled to 4/10 to allow for activity and rest through 01/18/17 5. Dora will eat 75-100% most meals and accept health shakes through 01/18/17 6. Dora will have a bm qod while in rehab through 01/18/17 7. Dora will void w/o difficulties after catheter removal by 01/18/17 8. Dora's skin tears and abrasions will heal w/o s/sx infection 9. Dora will transfer with 1 person A by 01/18/17 10. Geovany will be SBA- setup for his ADLs & functional mobility by 01/25/17. STRATEGY TO ACHIEVE GOALS: -monitor for s/sx pain and medicate prn -monitor for s/sx infection, clean wounds prn and perform dressing changes prn -monitor bm's and medicate prn -encourage po intake and ensure pt is drinking health shakes -Velarde cath care q shift. -encourage independence with ambulation and ensure safe transfers - Active participation in OT sessions Outcome: Improving Physical Therapy Plan of Care Treatment Note Summary: Pt presents in bed; says his back is doing better but that his legs are stiffer t aftab (R worse than L). Pt reports that he has not been doing his bed ex because he cannot re member what they are. Pt requesting printed HEP. Pt progressing, as demonstrated by being ab le to increase gait distance, requiring less assistance with ex, and recovering faster, so r equiring less rest time between activities. Trial of thin pillow in wheelchair for firmer ba ck support along with use of towel roll for lumbar support to help improve posture and decre ase back pain. Plan to bring printed HEP tomorrow to start initiating self ex in order to corcoran pplement PT sessions and to work towards goal of independent HEP. Physical Therapy Discharge Recommendations are: Recommended discharge disposition: home with assist Post discharge physical therapy recommendation: home health, outpatient therapy, pt is mot ivated participant Equipment Recommendations: 2 wheeled walker (FWW) Planned Interventions: balance training, bed mobility training, gait training, home exerci se program, patient/family education, orthotic fitting/training, transfer training, wheelcha ir management/propulsion training, ROM (Range of Motion), stair training, strengthening Recommended Frequency: (1-2x/day) Patient Status/Goals: Reflects last filed data and may be from multiple contributors. Gait Pt with improving gait speed and pattern today vs. yesterday but still with slower than nor mal speed and LEs become visibly unsteady as pt fatigues. Verbal cues provided for improved gait pattern and posture, as well as to step up inside FWW. Level of [place]: contact guard assist, verbal cues required Assistive Device: 2 wheeled walker (FWW) Distance (feet): 60 Stairs Pt ascending 1st 4 steps with L and then 2nd 4 leading with R LE. Number of Stairs: 8 Handrail Location: both sides Level of [place]: contact guard assist Assistive Device: 2 rails Technique Used: step to step (ascending), step to step (descending) Maintain Weight Bearing Status: (.) Safety Issues: balance decreased during turns, weight-shifting ability decreased Impairments: pain, impaired balance, strength decreased, motor control impaired, decreased flexibility, ROM decreased Transfers Pt still requires increased time and effort for sit <> stand, especially from regular heigh t surfaces; demonstrates improved movement pattern for sit > stand from raised surface heigh ts. Bed-Chair, Level of [place]: verbal cues required, contact guard assist Chair-Bed, Level of [place]: verbal cues required, contact guard assist [id number], Assistive Device: 2 wheeled walker (FWW) Sit-Stand, Level of [place]: stand by assist Stand-Sit, Level of [place]: stand by assist [id number], Assistive Device: 2 wheeled walker (FWW) Maintain Weight Bearing Status: (WBAT) Safety Issues: weight-shifting ability decreased Impairments: decreased flexibility, ROM decreased, strength decreased, impaired balance, pa in, postural control impaired Bed Mobility Bed mobility completed on flat bed with mattress max inflated. Pt still requires increased time and effort to perform bed mobility. Assistive Device: none Roll Left, Level of [place]: modified independent Roll Right, Level of [place]: independent Scoot/Bridge, Level of [place]: independent Supine to Sit, Level of [place]: modified independent Sit to Supine, Level of [place]: modified independent Safety Issues: decreased use of legs for bridging/pushing Impairments: decreased flexibility, ROM decreased, strength decreased Wheelchair Mobility Type: standard Surface: indoor Distance (feet): 150 Speed: moderate Level of [place]: set up required Propulsion Technique: bilateral UE's, bilateral LE's Components: brakes, foot rests/ foot platforms Components Management Assistance: minimum assist/contact guard assist (75% patients effort) Therapeutic Exercise Reviewed sequential muscle relaxation technique with pt; he says that he has done this some earlier today. Bed exercises: bilateral, ankle pumps, glut sets, hip abduction/adduction, heel slides, lisa rt arc quads, bridging Repetitions: x 15 Functional Endurance Impaired but improving; pt able to recover faster, so only required 1-2 min rest breaks bet ween activities. PT Goal Review Date Flowsheet Row Most Recent Value STG Review Date 01/08/17 at 01/01/2017 1115 LTG Review Date 01/22/17 at 01/01/2017 1115 All Bed Mobility Goal Flowsheet Row Most Recent Value STG Status discontinued at 01/04/2017 1200 STG [place] Level -- [.] at 01/04/2017 1200 LTG Status -- [.] at 01/04/2017 1200 LTG [place] Level -- [.] at 01/04/2017 1200 Roll Left/Right Goal Flowsheet Row Most Recent Value STG Status new, met at 01/08/2017 1435 STG [place] Level modified independent at 01/08/2017 1435 STG Assistive Device none at 01/08/2017 1435 LTG Status met at 01/13/2017 1339 LTG [place] Level independent at 01/08/2017 1435 Scoot/Bridge Goal Flowsheet Row Most Recent Value STG Status met at 01/04/2017 1200 STG [place] Level contact guard assist at 01/01/2017 1115 LTG Status met at 01/08/2017 1435 LTG [place] Level independent at 01/07/2017 1345 Vbvugf-Etw-Guwwgb Goal Flowsheet Row Most Recent Value STG Status met at 01/06/2017 1200 STG [place] Level contact guard assist at 01/01/2017 1115 STG Assistive Device bed rails at 01/01/2017 1115 LTG Status progressing at 01/12/2017 1510 LTG [place] Level independent at 01/08/2017 1100 LTG Assistive Device bed rails at 01/01/2017 1115 Vwgwoxubg-Ttw-Vvvunqkix Goal Flowsheet Row Most Recent Value STG Status discontinued at 01/04/2017 1200 STG [place] Level -- [.] at 01/04/2017 1200 STG Assistive Device -- [.] at 01/04/2017 1200 LTG Status -- [.] at 01/04/2017 1200 LTG [place] Level -- [.] at 01/04/2017 1200 All Transfers Goal Flowsheet Row Most Recent Value STG Status met at 01/04/2017 1200 STG [place] Level contact guard assist at 01/01/2017 1115 STG Comments Using Sanam Travis at 01/01/2017 1115 LTG Status progressing at 01/08/2017 1100 LTG [place] Level modified independent at 01/01/2017 1115 LTG Assistive Device 2 wheeled walker (FWW) at 01/01/2017 1115 Gait Goal Flowsheet Row Most Recent Value STG Status met at 01/12/2017 1510 STG [place] Level minimum assist (75% patient effort) at 01/01/2017 1115 STG Assistive Device 2 wheeled walker (FWW) at 01/01/2017 1115 STG Distance (feet) 15 at 01/01/2017 1115 LTG Status progressing at 01/13/2017 1339 LTG [place] Level modified independent at 01/01/2017 1115 LTG Assistive Device 2 wheeled walker (FWW) at 01/01/2017 1115 LTG Distance (feet) 50 at 01/01/2017 1115 Stair Goal Flowsheet Row Most Recent Value STG Status met at 01/09/2017 1155 STG [place] Level minimum assist (75% patient effort) at 01/01/2017 1115 STG Assistive Device 2 rails at 01/01/2017 1115 STG Number of Stairs 8 at 01/01/2017 1115 LTG Status progressing at 01/13/2017 1339 LTG [place] Level modified independent at 01/01/2017 1115 LTG Assistive Device 2 rails at 01/01/2017 1115 LTG Number of Stairs 8 at 01/01/2017 1115 Wheelchair Goal Flowsheet Row Most Recent Value STG Status discontinued at 01/05/2017 1200 STG -- [.] at 01/05/2017 1200 LTG Status -- [.] at 01/05/2017 1200 Additional Goal #1 PT Flowsheet Row Most Recent Value STG Status met at 01/03/2017 1200 STG Pt will tolerate standing at Sanam Stedy x 1min w/ supervision only at 01/01/2017 1115 LTG Status met at 01/04/2017 1450 LTG pt kenneth standing with fww for 3 minutes supervised at 01/01/2017 1115 Electronically signed by: Catherine Manzo, PT, 01/13/2017 13:44 lan of Care - Nelly Tirado RN - 01/13/2017 8:03 AM PDTProblem: Patient Care Overview (Adult) Goal: Care Team Goals & Evaluation PROBLEM-RELATED GOALS: 3. Dora will call out appropriately for assistance and have no falls during hospitalizati on through 01/18/17 4. Dora's pain will be controlled to 4/10 to allow for activity and rest through 01/18/17 5. Dora will eat 75-100% most meals and accept health shakes through 01/18/17 6. Dora will have a bm qod while in rehab through 01/18/17 7. Dora will void w/o difficulties after catheter removal by 01/18/17 8. Dora's skin tears and abrasions will heal w/o s/sx infection 9. Dora will transfer with 1 person A by 01/18/17 10. Geovany will be SBA- setup for his ADLs & functional mobility by 01/25/17. STRATEGY TO ACHIEVE GOALS: -monitor for s/sx pain and medicate prn -monitor for s/sx infection, clean wounds prn and perform dressing changes prn -monitor bm's and medicate prn -encourage po intake and ensure pt is drinking health shakes -Velarde cath care q shift. -encourage independence with ambulation and ensure safe transfers - Active participation in OT sessions Outcome: Improving Goal Evaluation: Patient A+Ox3. Denied pain during the night, slept between cares. Patient is 1-person mini mum assist with FWW, needs help lifting legs in bed but overall mobility is improving. SBP r emained above 100. Denied dizziness/lightheadedness. Various foam dressings to skin tears ar e CDI, no further skin tears or breakdown. Velarde cath with adeuqate output, urine is very co ncentrated, tea-colored. Still with 1+ edema to BLE. Pills with applesauce, no swallowing is sues. Patient did have small nose bleed this morning, quickly stopped and has not recurred. Very small amount of bleeding. Electronically signed by: NELLY DURANT RN 01/13/2017 8:03 lan of Care - tj Renee Arely MauriceYANNI - 01/13/2017 8:00 AM PDTFormatting of this note might be different from t he original. Problem: Patient Care Overview (Adult) Goal: Care Team Goals & Evaluation PROBLEM-RELATED GOALS: 3. Dora will call out appropriately for assistance and have no falls during hospitalizati on through 01/18/17 4. Dora's pain will be controlled to 4/10 to allow for activity and rest through 01/18/17 5. Dora will eat 75-100% most meals and accept health shakes through 01/18/17 6. Dora will have a bm qod while in rehab through 01/18/17 7. Dora will void w/o difficulties after catheter removal by 01/18/17 8. Dora's skin tears and abrasions will heal w/o s/sx infection 9. Dora will transfer with 1 person A by 01/18/17 10. Geovany will be SBA- setup for his ADLs & functional mobility by 01/25/17. STRATEGY TO ACHIEVE GOALS: -monitor for s/sx pain and medicate prn -monitor for s/sx infection, clean wounds prn and perform dressing changes prn -monitor bm's and medicate prn -encourage po intake and ensure pt is drinking health [facility] -Velarde cath care q shift. -encourage independence with ambulation and ensure safe transfers - Active participation in OT sessions IRF Occupational Therapy Plan of Care Treatment Note Summary: Pt requests to shower daily d/t skin issues. Pt needs much encouragement to be o ut of bed. This therapist has concerns for how much time pt is spending in bed every day. Pt should be at sink for grooming tasks to be able to address grooming goals. Occupational Therapy Discharge Recommendations are: Recommended discharge disposition: home with assist Post discharge occupational therapy recommendation: home health, pt is motivated participa nt Equipment Recommendations: 2 wheeled walker (FWW), casserole preparer, sock aide, tub bench Planned Interventions:ADL retraining, strengthening, transfer training, bed mobility traini ng, IADL retraining, balance training, prosthetic fitting/training, ROM (Range of Motion) (e jeanine mgmt as indicated) Recommended Frequency: (6-7x/week) Patient Status/Goals: Reflects last filed data and may be from multiple contributors. ADLs . Pt completed shower w/o physical assist this AM. Bathing, Level of [place]: supervised, set up required Assistive Device: grab bars, hand-held shower head, tub bench Bathing Assess/Train, Position: sitting Bathing Assess/Train, Impairments: strength decreased, impaired balance pt ambulated to closet using FWW to get clothes, VC's for placing clothing over front of wa lker UB Dressing, Level of [place]: stand by assist, verbal cues required Assistive Device: none UB Dressing Assess/Train, Position: sitting UB Dressing Assess/Train, Impairments: strength decreased, impaired balance pt not using sock aid d/t heals beeing heavily creamed LB Dressing, Level of [place]: minimal assist (75% patient effort), verbal cues requir ed Assistive Device: casserole preparer LB Dressing Assess/Train, Position: sitting, standing LB Dressing Assess/Train, Impairments: impaired balance Not Addressed this AM Toileting, Level of [place]: contact guard assist Assistive Device: grab bar, raised toilet seat Toileting Assess/Train, Position: sitting, supported standing Toileting Assess/Train, Impairments: decreased flexibility, ROM decreased, strength decreas ed, impaired balance pt completed grooming, oral care and shaving, from bed befor OT arrived for AM session. Grooming, Level of [place]: supervised, set up required Assistive Device: electric razor, electric toothbrush Grooming Assess/Train, Position: (supine) Grooming Assess/Train, Impairments: impaired balance Transfers pt ambulated to Shower this AM using FWW with SBA. Walk-in shower, Level of [place]: supervised Walk-in shower, Assistive Device: grab bars, tub bench, wheelchair Tub, Level of [place]: supervised Tub, Assistive Device: 2 wheeled walker (FWW), tub bench Safety Issues: weight-shifting ability decreased Impairments: decreased flexibility, ROM decreased, strength decreased, impaired balance OT Goal Review Date Flowsheet Row Most Recent Value STG Review Date 01/08/17 at 01/08/2017 0935 LTG Review Date 01/25/17 at 01/08/2017 0935 Grooming Goal Flowsheet Row Most Recent Value STG Status continued at 01/13/2017 0800 STG [place] Level stand by assist at 01/04/2017 1455 STG Position sitting in chair [at sink] at 01/04/2017 1455 STG Adaptive Equipment none at 01/04/2017 1455 LTG Status continued at 01/13/2017 0800 LTG [place] Level modified independent at 01/08/2017 0935 LTG Position -- [sitting at sink] at 01/04/2017 1455 Bathing Goal Flowsheet Row Most Recent Value STG Status met at 01/11/2017 0805 STG [place] Level contact guard assist at 01/08/2017 0935 STG Adaptive Equpiment shower chair, tub bench at 01/08/2017 0935 LTG Status met at 01/13/2017 0800 LTG [place] Level stand by assist at 01/08/2017 0935 UB Dressing Goal Flowsheet Row Most Recent Value STG Status met at 01/11/2017 0805 STG [place] Level stand by assist at 01/01/2017 1338 LTG Status met at 01/13/2017 0800 LTG [place] Level set up required at 01/01/2017 1338 LB Dressing Goal Flowsheet Row Most Recent Value STG Status progressing at 01/13/2017 0800 STG [place] Level contact guard assist at 01/08/2017 0935 STG Adaptive Equipment casserole preparer, sock-aid at 01/08/2017 0935 LTG Status progressing at 01/13/2017 0800 LTG [place] Level set up required at 01/08/2017 0935 Toileting Goal Flowsheet Row Most Recent Value STG Status continued at 01/13/2017 0800 STG [place] Level minimum assist (75% patient effort) at 01/01/2017 1338 LTG Status continued at 01/13/2017 0800 LTG [place] Level stand by assist at 01/08/2017 0935 Toilet Transfer Goal Flowsheet Row Most Recent Value STG Status continued at 01/13/2017 0800 STG [place] Level minimum assist (75% patient effort) at 01/01/2017 1338 LTG Status continued at 01/13/2017 0800 LTG [place] Level supervised at 01/08/2017 0935 Tub/Shower Transfer Goal Flowsheet Row Most Recent Value Tub/Shower Type tub/shower combo at 01/08/2017 0935 STG Status met at 01/10/2017 1809 STG [place] Level minimum assist (75% patient effort) at 01/03/2017 1909 STG Assistive Device tub bench at 01/03/2017 1909 LTG Status progressing at 01/13/2017 0800 LTG [place] Level modified independent at 01/08/2017 0935 LTG Assistive Device tub bench at 01/08/2017 0935 Electronically signed by: Arely Pool, Certified Health Care Marketing Manager, 2016 8:00 lan of Care - Hailee Salazar RN - 01/12/2017 4:33 PM PDTProblem: Patient Care Overview (Adult) Goal: Care Team Goals & Evaluation PROBLEM-RELATED GOALS: 3. Dora will call out appropriately for assistance and have no falls during hospitalizati on through 01/18/17 4. Dora's pain will be controlled to 4/10 to allow for activity and rest through 01/18/17 5. Dora will eat 75-100% most meals and accept health shakes through 01/18/17 6. Dora will have a bm qod while in rehab through 01/18/17 7. Dora will void w/o difficulties after catheter removal by 01/18/17 8. Dora's skin tears and abrasions will heal w/o s/sx infection 9. Dora will transfer with 1 person A by 01/18/17 10. Geovany will be SBA- setup for his ADLs & functional mobility by 01/25/17. STRATEGY TO ACHIEVE GOALS: -monitor for s/sx pain and medicate prn -monitor for s/sx infection, clean wounds prn and perform dressing changes prn -monitor bm's and medicate prn -encourage po intake and ensure pt is drinking health shakes -Velarde cath care q shift. -encourage independence with ambulation and ensure safe transfers - Active participation in OT sessions Outcome: Improving Goal Evaluation: Pt with improved mobility, able to ambulate 40ft in the baer with PT before resting. Pain controlled with routine tramadol. Did request a muscle relaxer this morning. Stating that hi s upper shoulders and neck felt sore like he had pulled some muscles while transffering out of the shower. Warm blankets and muscle relaxers were helpful. Pt cont to have multiple skin tears to legs and arms. Foam dressings intact. Skin is very thin and fragile. Appetite fair . Taking fluids well. BP low this morning. Rechecked before a.m. meds and still <90 systolic to metoprolol held. Pt asymptomactic. Encouraged fluids. Velarde patent with clear lyric urin e. lan of Care - Catherine Amaro, PT - 01/12/2017 4:10 PM PDTFormatting of this note might be different from dena arredondo original. Problem: Patient Care Overview (Adult) Goal: Care Team Goals & Evaluation PROBLEM-RELATED GOALS: 3. Dora will call out appropriately for assistance and have no falls during hospitalizati on through 01/18/17 4. Dora's pain will be controlled to 10 to allow for activity and rest through 01/18/17 5. Dora will eat 75-100% most meals and accept health shakes through 01/18/17 6. Dora will have a bm qod while in rehab through 01/18/17 7. Dora will void w/o difficulties after catheter removal by 01/18/17 8. Dora's skin tears and abrasions will heal w/o s/sx infection 9. Dora will transfer with 1 person A by 01/18/17 10. Geovany will be SBA- setup for his ADLs & functional mobility by 01/25/17. STRATEGY TO ACHIEVE GOALS: -monitor for s/sx pain and medicate prn -monitor for s/sx infection, clean wounds prn and perform dressing changes prn -monitor bm's and medicate prn -encourage po intake and ensure pt is drinking health shakes -Velarde cath care q shift. -encourage independence with ambulation and ensure safe transfers - Active participation in OT sessions Outcome: Improving IRF Physical Therapy Plan of Care Treatment Note Summary: Pt presents in bed; reports that his neck felt better with warm towel and rest bu t that his back is still acting up, "but it is better than yesterday". Pt eager to participa te with PT. Continues to progress, as demonstrated by improving gait speed and pattern today vs. yesterday with shorter rest periods between gait trials. Back pain improved with mobili ty but R thigh "tight" and pt says that thighs get a little sore with activity but also "loo sen up" and he feels that he is getting stronger. Plan to re-start stair training tomorrow. Physical Therapy Discharge Recommendations are: Recommended discharge disposition: home with assist Post discharge physical therapy recommendation: home health, outpatient therapy, pt is mot ivated participant Equipment Recommendations: 2 wheeled walker (FWW) Planned Interventions: balance training, bed mobility training, gait training, home exerci se program, patient/family education, orthotic fitting/training, transfer training, wheelcha ir management/propulsion training, ROM (Range of Motion), stair training, strengthening Frequency: (1-2x/day) Patient Status/Goals: Reflects last filed data and may be from multiple contributors. Bed Mobility Provided cues for improved technique but pt able to roll and bridge to scoot laterally on l evel bed without requiring physical assist. He did require CGA-min assist for supine > sit o n level bed without rails. Assistive Device: bed rails Roll Left, Level of [place]: modified independent Roll Right, Level of [place]: modified independent Scoot/Bridge, Level of [place]: stand by assist, verbal cues required Supine to Sit, Level of [place]: modified independent Sit to Supine, Level of [place]: modified independent Safety Issues: decreased use of legs for bridging/pushing Impairments: decreased flexibility, ROM decreased, strength decreased Transfers Pt still requires increased time and effort for sit <> stand, especially from regular heigh t surfaces; demonstrates improved movement pattern for sit > stand from raised surface heigh ts. Bed-Chair, Level of [place]: verbal cues required, contact guard assist Chair-Bed, Level of [place]: verbal cues required, contact guard assist [id number], Assistive Device: 2 wheeled walker (FWW) Sit-Stand, Level of [place]: stand by assist Stand-Sit, Level of [place]: stand by assist [id number], Assistive Device: 2 wheeled walker (FWW) Maintain Weight Bearing Status: (WBAT) Safety Issues: weight-shifting ability decreased Impairments: decreased flexibility, ROM decreased, strength decreased, impaired balance, pa in, postural control impaired Gait Pt with improving gait speed and pattern today vs. yesterday but still with slower than nor mal speed and LEs become visibly unsteady as pt fatigues. Verbal cues provided for improved gait pattern and posture, as well as to step up inside FWW. Level of [place]: contact guard assist, verbal cues required Assistive Device: 2 wheeled walker (FWW) Distance (feet): 40 ft x 6 with 1-2 min seated rests between each gait trial Therapeutic Exercise Reviewed sequential muscle relaxation technique with pt; he says that he has done this some earlier today. Bed exercises: bilateral, ankle pumps, glut sets, hip abduction/adduction, heel slides, lisa rt arc quads, bridging Repetitions: x 15 Functional Endurance Impaired due to pain, weakness, and fatigue. PT Goal Review Date Flowsheet Row Most Recent Value STG Review Date 01/08/17 at 01/01/2017 1115 LTG Review Date 01/22/17 at 01/01/2017 1115 All Bed Mobility Goal Flowsheet Row Most Recent Value STG Status discontinued at 01/04/2017 1200 STG [place] Level -- [.] at 01/04/2017 1200 LTG Status -- [.] at 01/04/2017 1200 LTG [place] Level -- [.] at 01/04/2017 1200 Roll Left/Right Goal Flowsheet Row Most Recent Value STG Status new, met at 01/08/2017 1435 STG [place] Level modified independent at 01/08/2017 1435 STG Assistive Device none at 01/08/2017 1435 LTG Status progressing at 01/11/2017 1625 LTG [place] Level independent at 01/08/2017 1435 Scoot/Bridge Goal Flowsheet Row Most Recent Value STG Status met at 01/04/2017 1200 STG [place] Level contact guard assist at 01/01/2017 1115 LTG Status met at 01/08/2017 1435 LTG [place] Level independent at 01/07/2017 1345 Xfzpor-Igy-Hknxyh Goal Flowsheet Row Most Recent Value STG Status met at 01/06/2017 1200 STG [place] Level contact guard assist at 01/01/2017 1115 STG Assistive Device bed rails at 01/01/2017 1115 LTG Status progressing at 01/12/2017 1510 LTG [place] Level independent at 01/08/2017 1100 LTG Assistive Device bed rails at 01/01/2017 1115 Aksufhcvs-Mdk-Yiojmohyh Goal Flowsheet Row Most Recent Value STG Status discontinued at 01/04/2017 1200 STG [place] Level -- [.] at 01/04/2017 1200 STG Assistive Device -- [.] at 01/04/2017 1200 LTG Status -- [.] at 01/04/2017 1200 LTG [place] Level -- [.] at 01/04/2017 1200 All Transfers Goal Flowsheet Row Most Recent Value STG Status met at 01/04/2017 1200 STG [place] Level contact guard assist at 01/01/2017 1115 STG Comments Using Sanam Thaddeus at 01/01/2017 1115 LTG Status progressing at 01/08/2017 1100 LTG [place] Level modified independent at 01/01/2017 1115 LTG Assistive Device 2 wheeled walker (FWW) at 01/01/2017 1115 Gait Goal Flowsheet Row Most Recent Value STG Status met at 01/12/2017 1510 STG [place] Level minimum assist (75% patient effort) at 01/01/2017 1115 STG Assistive Device 2 wheeled walker (FWW) at 01/01/2017 1115 STG Distance (feet) 15 at 01/01/2017 1115 LTG Status progressing at 01/12/2017 1510 LTG [place] Level modified independent at 01/01/2017 1115 LTG Assistive Device 2 wheeled walker (FWW) at 01/01/2017 1115 LTG Distance (feet) 50 at 01/01/2017 1115 Stair Goal Flowsheet Row Most Recent Value STG Status met at 01/09/2017 1155 STG [place] Level minimum assist (75% patient effort) at 01/01/2017 1115 STG Assistive Device 2 rails at 01/01/2017 1115 STG Number of Stairs 8 at 01/01/2017 1115 LTG Status continued at 01/12/2017 1510 LTG [place] Level modified independent at 01/01/2017 1115 LTG Assistive Device 2 rails at 01/01/2017 1115 LTG Number of Stairs 8 at 01/01/2017 1115 Wheelchair Goal Flowsheet Row Most Recent Value STG Status discontinued at 01/05/2017 1200 STG -- [.] at 01/05/2017 1200 LTG Status -- [.] at 01/05/2017 1200 Additional Goal #1 PT Flowsheet Row Most Recent Value STG Status met at 01/03/2017 1200 STG Pt will tolerate standing at Sanam Stedy x 1min w/ supervision only at 01/01/2017 1115 LTG Status met at 01/04/2017 1450 LTG pt kenneth standing with fww for 3 minutes supervised at 01/01/2017 1115 Electronically signed by: Catherine Manzo, PT, 01/12/2017 19:49 lan of Care - Arely Pool COTA - 01/12/2017 8:00 AM PDTFormatting of this note might be different fro m the original. Problem: Patient Care Overview (Adult) Goal: Care Team Goals & Evaluation PROBLEM-RELATED GOALS: 3. Dora will call out appropriately for assistance and have no falls during hospitalizati on through 01/18/17 4. Dora's pain will be controlled to 4/10 to allow for activity and rest through 01/18/17 5. Dora will eat 75-100% most meals and accept health shakes through 01/18/17 6. Dora will have a bm qod while in rehab through 01/18/17 7. Dora will void w/o difficulties after catheter removal by 01/18/17 8. Dora's skin tears and abrasions will heal w/o s/sx infection 9. Dora will transfer with 1 person A by 01/18/17 10. Geovany will be SBA- setup for his ADLs & functional mobility by 01/25/17. STRATEGY TO ACHIEVE GOALS: -monitor for s/sx pain and medicate prn -monitor for s/sx infection, clean wounds prn and perform dressing changes prn -monitor bm's and medicate prn -encourage po intake and ensure pt is drinking health shakes -Velarde cath care q shift. -encourage independence with ambulation and ensure safe transfers - Active participation in OT sessions IRF Occupational Therapy Plan of Care Treatment Note Summary: Pt progressing with self care tasks, Pt demonstrating in creased independence thi s AM Occupational Therapy Discharge Recommendations are: Recommended discharge disposition: home with assist Post discharge occupational therapy recommendation: home health, pt is motivated participa nt Equipment Recommendations: 2 wheeled walker (FWW), casserole preparer, sock aide, tub bench Planned Interventions:ADL retraining, strengthening, transfer training, bed mobility traini ng, IADL retraining, balance training, prosthetic fitting/training, ROM (Range of Motion) (e jeanine mgmt as indicated) Recommended Frequency: (6-7x/week) Patient Status/Goals: Reflects last filed data and may be from multiple contributors. ADLs . Pt completed shower w/o physical assist this AM. Bathing, Level of [place]: supervised, set up required Assistive Device: grab bars, hand-held shower head, long-handled sponge, tub bench Bathing Assess/Train, Position: sitting, standing Bathing Assess/Train, Impairments: strength decreased, impaired balance pt got his own clothes today, w/c level UB Dressing, Level of [place]: supervised Assistive Device: none UB Dressing Assess/Train, Position: sitting UB Dressing Assess/Train, Impairments: strength decreased, impaired balance assist with catheter management and to don slipper socks. LB Dressing, Level of [place]: minimal assist (75% patient effort) Assistive Device: casserole preparer LB Dressing Assess/Train, Position: sitting, standing LB Dressing Assess/Train, Impairments: impaired balance Not Addressed this AM Toileting, Level of [place]: contact guard assist Assistive Device: grab bar, raised toilet seat Toileting Assess/Train, Position: sitting, supported standing Toileting Assess/Train, Impairments: decreased flexibility, ROM decreased, strength decreas ed, impaired balance pt stood at sink this AM. Grooming, Level of [place]: supervised, set up required Assistive Device: electric toothbrush Grooming Assess/Train, Position: standing Grooming Assess/Train, Impairments: impaired balance Transfers pt ambulated into bathroom and stood for grooming using FWW w/o physical assist this am, w/ c to shower d/t distance. Sit-Stand, Level of [place]: supervised Stand-Sit, Level of [place]: supervised [id number], Assistive Device: 2 wheeled walker (FWW) Toilet, Level of [place]: contact guard assist, verbal cues required Toilet, Assistive Device: seat riser Walk-in shower, Level of [place]: supervised Walk-in shower, Assistive Device: grab bars, tub bench, wheelchair Safety Issues: weight-shifting ability decreased Impairments: decreased flexibility, ROM decreased, strength decreased, impaired balance OT Goal Review Date Flowsheet Row Most Recent Value STG Review Date 01/08/17 at 01/08/2017 0935 LTG Review Date 01/25/17 at 01/08/2017 0935 Grooming Goal Flowsheet Row Most Recent Value STG Status progressing at 01/11/2017 0805 STG [place] Level stand by assist at 01/04/2017 1455 STG Position sitting in chair [at sink] at 01/04/2017 1455 STG Adaptive Equipment none at 01/04/2017 1455 LTG Status progressing at 01/11/2017 0805 LTG [place] Level modified independent at 01/08/2017 0935 LTG Position -- [sitting at sink] at 01/04/2017 1455 Bathing Goal Flowsheet Row Most Recent Value STG Status met at 01/11/2017 0805 STG [place] Level contact guard assist at 01/08/2017 0935 STG Adaptive Equpiment shower chair, tub bench at 01/08/2017 0935 LTG Status progressing at 01/11/2017 0805 LTG [place] Level stand by assist at 01/08/2017 0935 UB Dressing Goal Flowsheet Row Most Recent Value STG Status met at 01/11/2017 0805 STG [place] Level stand by assist at 01/01/2017 1338 LTG Status progressing at 01/11/2017 0805 LTG [place] Level set up required at 01/01/2017 1338 LB Dressing Goal Flowsheet Row Most Recent Value STG Status progressing at 01/11/2017 0805 STG [place] Level contact guard assist at 01/08/2017 0935 STG Adaptive Equipment casserole preparer, sock-aid at 01/08/2017 0935 LTG Status progressing at 01/11/2017 0805 LTG [place] Level set up required at 01/08/2017 0935 Toileting Goal Flowsheet Row Most Recent Value STG Status continued at 01/11/2017 0805 STG [place] Level minimum assist (75% patient effort) at 01/01/2017 1338 LTG Status continued at 01/11/2017 0805 LTG [place] Level stand by assist at 01/08/2017 0935 Toilet Transfer Goal Flowsheet Row Most Recent Value STG Status continued at 01/11/2017 0805 STG [place] Level minimum assist (75% patient effort) at 01/01/2017 1338 LTG Status continued at 01/11/2017 0805 LTG [place] Level supervised at 01/08/2017 0935 Tub/Shower Transfer Goal Flowsheet Row Most Recent Value Tub/Shower Type tub/shower combo at 01/08/2017 0935 STG Status met at 01/10/2017 1809 STG [place] Level minimum assist (75% patient effort) at 01/03/2017 1909 STG Assistive Device tub bench at 01/03/2017 1909 LTG Status progressing at 01/11/2017 0805 LTG [place] Level modified independent at 01/08/2017 0935 LTG Assistive Device tub bench at 01/08/2017 0935 Electronically signed by: Arely Pool, Certified Health Care Marketing Manager, 2016 8:00 lan of Care - Charlie Jolley RN - 01/12/2017 6:04 AM PDTProblem: Patient Care Overview (Adult) Goal: Care Team Goals & Evaluation PROBLEM-RELATED GOALS: 3. Dora will call out appropriately for assistance and have no falls during hospitalizati on through 01/18/17 4. Dora's pain will be controlled to 4/10 to allow for activity and rest through 01/18/17 5. Dora will eat 75-100% most meals and accept health shakes through 01/18/17 6. Dora will have a bm qod while in rehab through 01/18/17 7. Dora will void w/o difficulties after catheter removal by 01/18/17 8. Dora's skin tears and abrasions will heal w/o s/sx infection 9. Dora will transfer with 1 person A by 01/18/17 10. Geovany will be SBA- setup for his ADLs & functional mobility by 01/25/17. STRATEGY TO ACHIEVE GOALS: -monitor for s/sx pain and medicate prn -monitor for s/sx infection, clean wounds prn and perform dressing changes prn -monitor bm's and medicate prn -encourage po intake and ensure pt is drinking health shakes -Velarde cath care q shift. -encourage independence with ambulation and ensure safe transfers - Active participation in OT sessions Outcome: Unchanged Goal Evaluation: Dora had no falls overnight. No complaints of pain or discomfort. Slept well between care s. Vitals have been stable. Urine output via velarde catheter is adequate. Electronically sign ed by: Charlie Jacob RN 01/12/2017 6:55 lan of Care - Cira Jacob OT - 01/11/2017 6:11 PM PDT Problem: Patient Care Overview (Adult) Goal: Care Team Goals & Evaluation PROBLEM-RELATED GOALS: 3. Dora will call out appropriately for assistance and have no falls during hospitalizati on through 01/18/17 4. Dora's pain will be controlled to 4/10 to allow for activity and rest through 01/18/17 5. Dora will eat 75-100% most meals and accept health shakes through 01/18/17 6. Dora will have a bm qod while in rehab through 01/18/17 7. Dora will void w/o difficulties after catheter removal by 01/18/17 8. Dora's skin tears and abrasions will heal w/o s/sx infection 9. Dora will transfer with 1 person A by 01/18/17 10. Geovany will be SBA- setup for his ADLs & functional mobility by 01/25/17. STRATEGY TO ACHIEVE GOALS: -monitor for s/sx pain and medicate prn -monitor for s/sx infection, clean wounds prn and perform dressing changes prn -monitor bm's and medicate prn -encourage po intake and ensure pt is drinking health shakes -Velarde cath care q shift. -encourage independence with ambulation and ensure safe transfers - Active participation in OT sessions Outcome: Improving IRF Occupational Therapy Plan of Care Treatment Note Summary: Pt encountered supine in bed, reporting decreased pain. Pt CGA to transfer from s upine to seated EOB, continues to require CGA for safety. Pt engaged in functional mobility ~ 40 feet c CGA to the therapy gym. Engaged in UB excercise program (chest flys, elbow exten osmar, internal/external rotation) 2 sets x 10 reps c 3 pound weight. Pt requires direct vcs to rest between sets and deep breathe. Pt demonstrated improving endurance this session, ret urning to his room c CGA and EOB to supine c SBA. When pt's pain is well controlled, he demo nstrates increased ability to engage and complete ADLs. Pt's fatigue and lack of consistent strength will likely be a barrier for return to home. Pt will benefit from skilled OT servic es to increase ADL independence and safety upon return to home. Occupational Therapy Discharge Recommendations are: Recommended discharge disposition: home with assist Post discharge occupational therapy recommendation: home health, pt is motivated participa nt Equipment Recommendations: 2 wheeled walker (FWW), casserole preparer, sock aide, tub bench Planned Interventions:ADL retraining, strengthening, transfer training, bed mobility traini ng, IADL retraining, balance training, prosthetic fitting/training, ROM (Range of Motion) (e jeanine mgmt as indicated) Recommended Frequency: (6-7x/week) Patient Status/Goals: Reflects last filed data and may be from multiple contributors. Therapeutic Exercise Shoulder exercises: bilateral, flexion, extension, ABDuction, ADDuction, internal rotation, external rotation Type of exercise: resistive Repetitions/ Resistance: 10 reps each, 2 sets with 3 lb weights Elbow exercises: bilateral, flexion, extension, pronation, supination Type of exercise: resistive Repetitions/ Resistance: 10 reps of 2 sets, 3 lb weights Wrist exercises: bilateral, flexion, extension Type of exercise: resistive Functional Endurance Improved this session. Bed Mobility SBA to transfer supine <> seated EOB. Assistive Device: bed rails Roll Left, Level of [place]: modified independent Roll Right, Level of [place]: modified independent Scoot/Bridge, Level of [place]: stand by assist Supine to Sit, Level of [place]: stand by assist Sit to Supine, Level of [place]: modified independent Safety Issues: decreased use of legs for bridging/pushing Impairments: decreased flexibility, ROM decreased, strength decreased Transfers CGA for safety to transfer standing <> chair. Bed-Chair, Level of [place]: verbal cues required, contact guard assist Chair-Bed, Level of [place]: verbal cues required, contact guard assist [id number], Assistive Device: 2 wheeled walker (FWW) Sit-Stand, Level of [place]: verbal cues required, contact guard assist Stand-Sit, Level of [place]: verbal cues required, contact guard assist [id number], Assistive Device: 2 wheeled walker (FWW) Safety Issues: weight-shifting ability decreased Impairments: decreased flexibility, ROM decreased, strength decreased, impaired balance OT Goal Review Date Flowsheet Row Most Recent Value STG Review Date 01/08/17 at 01/08/2017 0935 LTG Review Date 01/25/17 at 01/08/2017 0935 Grooming Goal Flowsheet Row Most Recent Value STG Status progressing at 01/11/2017 0805 STG [place] Level stand by assist at 01/04/2017 1455 STG Position sitting in chair [at sink] at 01/04/2017 1455 STG Adaptive Equipment none at 01/04/2017 1455 LTG Status progressing at 01/11/2017 0805 LTG [place] Level modified independent at 01/08/2017 0935 LTG Position -- [sitting at sink] at 01/04/2017 1455 Bathing Goal Flowsheet Row Most Recent Value STG Status met at 01/11/2017 0805 STG [place] Level contact guard assist at 01/08/2017 0935 STG Adaptive Equpiment shower chair, tub bench at 01/08/2017 0935 LTG Status progressing at 01/11/2017 0805 LTG [place] Level stand by assist at 01/08/2017 0935 UB Dressing Goal Flowsheet Row Most Recent Value STG Status met at 01/11/2017 0805 STG [place] Level stand by assist at 01/01/2017 1338 LTG Status progressing at 01/11/2017 0805 LTG [place] Level set up required at 01/01/2017 1338 LB Dressing Goal Flowsheet Row Most Recent Value STG Status progressing at 01/11/2017 0805 STG [place] Level contact guard assist at 01/08/2017 0935 STG Adaptive Equipment casserole preparer, sock-aid at 01/08/2017 0935 LTG Status progressing at 01/11/2017 0805 LTG [place] Level set up required at 01/08/2017 0935 Toileting Goal Flowsheet Row Most Recent Value STG Status continued at 01/11/2017 0805 STG [place] Level minimum assist (75% patient effort) at 01/01/2017 1338 LTG Status continued at 01/11/2017 0805 LTG [place] Level stand by assist at 01/08/2017 0935 Toilet Transfer Goal Flowsheet Row Most Recent Value STG Status continued at 01/11/2017 0805 STG [place] Level minimum assist (75% patient effort) at 01/01/2017 1338 LTG Status continued at 01/11/2017 0805 LTG [place] Level supervised at 01/08/2017 0935 Tub/Shower Transfer Goal Flowsheet Row Most Recent Value Tub/Shower Type tub/shower combo at 01/08/2017 0935 STG Status met at 01/10/2017 1809 STG [place] Level minimum assist (75% patient effort) at 01/03/2017 1909 STG Assistive Device tub bench at 01/03/2017 1909 LTG Status progressing at 01/11/2017 0805 LTG [place] Level modified independent at 01/08/2017 0935 LTG Assistive Device tub bench at 01/08/2017 0935 Electronically signed by: Cira Hurst OT, 01/11/2017 18:09 lan of Care - Sabra Gupta RN - 01/11/2017 4:31 PM PDTProblem: Patient Care Overview (Adult) Goal: Care Team Goals & Evaluation PROBLEM-RELATED GOALS: 3. Dora will call out appropriately for assistance and have no falls during hospitalizati on through 01/18/17 4. Dora's pain will be controlled to 4/10 to allow for activity and rest through 01/18/17 5. Dora will eat 75-100% most meals and accept health shakes through 01/18/17 6. Dora will have a bm qod while in rehab through 01/18/17 7. Dora will void w/o difficulties after catheter removal by 01/18/17 8. Leighanns skin tears and abrasions will heal w/o s/sx infection 9. Dora will transfer with 1 person A by 01/18/17 10. Geovany will be SBA- setup for his ADLs & functional mobility by 01/25/17. STRATEGY TO ACHIEVE GOALS: -monitor for s/sx pain and medicate prn -monitor for s/sx infection, clean wounds prn and perform dressing changes prn -monitor bm's and medicate prn -encourage po intake and ensure pt is drinking health shakes -Velarde cath care q shift. -encourage independence with ambulation and ensure safe transfers - Active participation in OT sessions Outcome: Improving Goal Evaluation: 3. Calling out appropriately, no falls 4. C/o pain to right side lower back, described as intermittent ache, taking tramadol sched uled and required one dose oxycodone 5mg this morning r/t increased pain, rx robaxin given t his am and one time dose of baclofen for spasms ordered by MD. Pain has been improved since this am and pt able to tolerate therapies w rest periods between 5. Eating 100% most meals, drinking fluids w/o difficulties, taking rx whole w applesauce p er pt's request 6. LBM this morning reported by pt after completing shower, rx senna given this am 7. F/c draining w/o difficulties 8. Skin tears and abrasions all at different stages of healing, no s/sx infection 9. Transferring w 1 person A+fww 10. Performing ADL's w 1 person A, tolerated therapies well after pain got controlled. lan of [facility] - Catherine Sheth, PT - 01/11/2017 4:25 PM PDT Problem: Patient Care Overview (Adult) Goal: Care Team Goals & Evaluation PROBLEM-RELATED GOALS: 3. Dora will call out appropriately for assistance and have no falls during hospitalizati on through 01/18/17 4. Dora's pain will be controlled to 4/10 to allow for activity and rest through 01/18/17 5. Dora will eat 75-100% most meals and accept health shakes through 01/18/17 6. Dora will have a bm qod while in rehab through 01/18/17 7. Dora will void w/o difficulties after catheter removal by 01/18/17 8. Leighanns skin tears and abrasions will heal w/o s/sx infection 9. Dora will transfer with 1 person A by 01/18/17 10. Geovany will be SBA- setup for his ADLs & functional mobility by 01/25/17. STRATEGY TO ACHIEVE GOALS: -monitor for s/sx pain and medicate prn -monitor for s/sx infection, clean wounds prn and perform dressing changes prn -monitor bm's and medicate prn -encourage po intake and ensure pt is drinking health shakes -Velarde cath care q shift. -encourage independence with ambulation and ensure safe transfers - Active participation in OT sessions Physical Therapy Plan of Care Treatment Note Summary: Pt seen for split session, with first part of session focused on functional mobil ity and stair training with trial of varying rail distances and heights. 2nd part of split s ession focused on review of relaxation techniques to decrease soft tissue tension and reduce pain, gentle strength and flexibility ex for LEs and core, as well as calling neighbor to v erify that a rail placed in the middle of pt's steps will be best option. Back pain under be tter control this p.m. And pt reports that towel roll at low back for lumbar support and rel axation techniques are both helpful in controlling pain but says that he does not feel that Broda chair is really better than regular wheelchair, so requesting to use regular wheelchai r. Will plan to see if there are further modifications that can be made to improve sitting p osture in regular wheelchair, as previous trials with use of pillows and/or towel roll have not been effective at controlling posture and back pain. Physical Therapy Discharge Recommendations are: Recommended discharge disposition: home with assist Post discharge physical therapy recommendation: home health, outpatient therapy, pt is mot ivated participant Equipment Recommendations: 2 wheeled walker (FWW) Planned Interventions: balance training, bed mobility training, gait training, home exerci se program, patient/family education, orthotic fitting/training, transfer training, wheelcha ir management/propulsion training, ROM (Range of Motion), stair training, strengthening Recommended Frequency: (1-2x/day) Patient Status/Goals: Reflects last filed data and may be from multiple contributors. Gait Functional gait in room with FWW/CGA-close SBA but did not focus on gait distance goal toda y. Level of [place]: contact guard assist Assistive Device: 2 wheeled walker (FWW) Stairs Stair training done on practice steps (8) and then 4 steps in // bars with bars 24 inches a part, to simulate what pt has planned for neighbor to adapt stairs at home. Number of Stairs: 8, 4 Handrail Location: both sides Level of [place]: contact guard assist Assistive Device: 2 rails Technique Used: step to step (ascending), step to step (descending) Maintain Weight Bearing Status: (.) Safety Issues: balance decreased during turns Impairments: pain, impaired balance, strength decreased, motor control impaired, decreased flexibility, ROM decreased Transfers CGA-close SBA provided for safety during sit <> stand transfers and CGA for safety and neris nce during stand pivot transfer training. Bed-Chair, Level of [place]: verbal cues required, contact guard assist Chair-Bed, Level of [place]: verbal cues required, contact guard assist [id number], Assistive Device: 2 wheeled walker (FWW) Sit-Stand, Level of [place]: verbal cues required, contact guard assist Stand-Sit, Level of [place]: verbal cues required, contact guard assist [id number], Assistive Device: 2 wheeled walker (FWW) Maintain Weight Bearing Status: (WBAT) Safety Issues: weight-shifting ability decreased Impairments: decreased flexibility, ROM decreased, strength decreased, impaired balance Bed Mobility Provided cues for improved technique but pt able to roll and bridge to scoot laterally on l evel bed without requiring physical assist. He did require CGA-min assist for supine > sit o n level bed without rails. Assistive Device: bed rails Roll Left, Level of [place]: modified independent Scoot/Bridge, Level of [place]: modified independent Supine to Sit, Level of [place]: modified independent Sit to Supine, Level of [place]: modified independent Safety Issues: decreased use of legs for bridging/pushing Impairments: decreased flexibility, ROM decreased, strength decreased Therapeutic Exercise Pt completed sequential body muscle contraction w/ 5 sec hold and then 5 sec of relaxation; pt reported good reduction of pain afterwards. Bed exercises: bilateral, ankle pumps, glut sets, hip abduction/adduction, heel slides, lisa rt arc quads, bridging Repetitions: x 15 Functional Endurance Impaired due to pain, weakness, and fatigue. PT Goal Review Date Flowsheet Row Most Recent Value STG Review Date 01/08/17 at 01/01/2017 1115 LTG Review Date 01/22/17 at 01/01/2017 1115 All Bed Mobility Goal Flowsheet Row Most Recent Value STG Status discontinued at 01/04/2017 1200 STG [place] Level -- [.] at 01/04/2017 1200 LTG Status -- [.] at 01/04/2017 1200 LTG [place] Level -- [.] at 01/04/2017 1200 Roll Left/Right Goal Flowsheet Row Most Recent Value STG Status new, met at 01/08/2017 1435 STG [place] Level modified independent at 01/08/2017 1435 STG Assistive Device none at 01/08/2017 1435 LTG Status progressing at 01/11/2017 1625 LTG [place] Level independent at 01/08/2017 1435 Scoot/Bridge Goal Flowsheet Row Most Recent Value STG Status met at 01/04/2017 1200 STG [place] Level contact guard assist at 01/01/2017 1115 LTG Status met at 01/08/2017 1435 LTG [place] Level independent at 01/07/2017 1345 Xmazhb-[id number]-[id number] Goal Flowsheet Row Most Recent Value STG Status met at 01/06/2017 1200 STG [place] Level contact guard assist at 01/01/2017 1115 STG Assistive Device bed rails at 01/01/2017 1115 LTG Status progressing at 01/11/2017 1625 LTG [place] Level independent at 01/08/2017 1100 LTG Assistive Device bed rails at 01/01/2017 1115 Eviqtwrnn-[id number]-Wjhlbevsg Goal Flowsheet Row Most Recent Value STG Status discontinued at 01/04/2017 1200 STG [place] Level -- [.] at 01/04/2017 1200 STG Assistive Device -- [.] at 01/04/2017 1200 LTG Status -- [.] at 01/04/2017 1200 LTG [place] Level -- [.] at 01/04/2017 1200 All Transfers Goal Flowsheet Row Most Recent Value STG Status met at 01/04/2017 1200 STG [place] Level contact guard assist at 01/01/2017 1115 STG Comments Using Sanam Chemady at 01/01/2017 1115 LTG Status progressing at 01/08/2017 1100 LTG [place] Level modified independent at 01/01/2017 1115 LTG Assistive Device 2 wheeled walker (FWW) at 01/01/2017 1115 Gait Goal Flowsheet Row Most Recent Value STG Status continued at 01/11/2017 1625 STG [place] Level minimum assist (75% patient effort) at 01/01/2017 1115 STG Assistive Device 2 wheeled walker (FWW) at 01/01/2017 1115 STG Distance (feet) 15 at 01/01/2017 1115 LTG Status progressing at 01/08/2017 1100 LTG [place] Level modified independent at 01/01/2017 1115 LTG Assistive Device 2 wheeled walker (FWW) at 01/01/2017 1115 LTG Distance (feet) 50 at 01/01/2017 1115 Stair Goal Flowsheet Row Most Recent Value STG Status met at 01/09/2017 1155 STG [place] Level minimum assist (75% patient effort) at 01/01/2017 1115 STG Assistive Device 2 rails at 01/01/2017 1115 STG Number of Stairs 8 at 01/01/2017 1115 LTG Status progressing at 01/11/2017 1625 LTG [place] Level modified independent at 01/01/2017 1115 LTG Assistive Device 2 rails at 01/01/2017 1115 LTG Number of Stairs 8 at 01/01/2017 1115 Wheelchair Goal Flowsheet Row Most Recent Value STG Status discontinued at 01/05/2017 1200 STG -- [.] at 01/05/2017 1200 LTG Status -- [.] at 01/05/2017 1200 Additional Goal #1 PT Flowsheet Row Most Recent Value STG Status met at 01/03/2017 1200 STG Pt will tolerate standing at Sanam Chemady x 1min w/ supervision only at 01/01/2017 1115 LTG Status met at 01/04/2017 1450 LTG pt kenneth standing with fww for 3 minutes supervised at 01/01/2017 1115 Electronically signed by: Catherine Manzo PT, 01/11/2017 19:25 lan of Care - Rochelle Moon MSW - 01/11/2017 1:27 PM PDTProblem: Discharge Planning Goal: Patient will be discharged in a safe manner Outcome: Improving This caser shoe parts spoke with patient, his , and his neighbor after the rehab team confe rence today. We discussed how the team feels that a rail needs to in stalled in the middle o f his stairs case leading up to his living quarters as his railings he has now are too far a part. Patient's neighbor states that her will be helping with getting in touch with the contractor to get this installed. Patient feels that they can have it installed by early to mid next week. Once the railing is installed, patient should be safe to discharge home. Patient states that they did speak with their PT friend and he is unable to come do home vis its for him. He would like to have outpatient therapy at the [facility] in [place]. Patient, , and neighbor states that transportation will not be a problem. CM to follow up with patient and . states that she will call the floor to speak wi th the RN over the weekend about updates as to when the railing will be installed. Melly estevez signed by: ADELITA Vallejo 01/11/2017 13:26 lan of Care - Catherine Parmar, PT - 01/11/2017 12:10 PM PDT Problem: Patient Care Overview (Adult) Goal: Care Team Goals & Evaluation PROBLEM-RELATED GOALS: 3. Dora will call out appropriately for assistance and have no falls during hospitalizati on through 01/18/17 4. Dora's pain will be controlled to 10 to allow for activity and rest through 01/18/17 5. Dora will eat 75-100% most meals and accept health shakes through 01/18/17 6. Dora will have a bm qod while in rehab through 01/18/17 7. Dora will void w/o difficulties after catheter removal by 01/18/17 8. Leighanns skin tears and abrasions will heal w/o s/sx infection 9. Dora will transfer with 1 person A by 01/18/17 10. Geovany will be SBA- setup for his ADLs & functional mobility by 01/25/17. STRATEGY TO ACHIEVE GOALS: -monitor for s/sx pain and medicate prn -monitor for s/sx infection, clean wounds prn and perform dressing changes prn -monitor bm's and medicate prn -encourage po intake and ensure pt is drinking health shakes -Velarde cath care q shift. -encourage independence with ambulation and ensure safe transfers - Active participation in OT sessions Outcome: Improving Physical Therapy Plan of Care Treatment Note Summary: Pt presents in bed; says that his back pain has flared up again. Dr. Ricardo is a christopher is going to increase muscle relaxant dose. Pt seen for split session with focus on init ial part of session focused on decreasing pain and soft tissue tension via sequential relaxa tion, deep breathing, and repositioning. Second part of session focused on functional mobili ty training and trial of Broda wheelchair with lumbar support to see if this will help to im prove posture and decrease pain. Pt reported good pain relief with relaxation techniques and implementation of folded towel at low back for improved positioning and lumbar support. He thinks that Broda chair is more comfortable for his back but it is more difficult to get in and out of vs. regular wheelchair. Physical Therapy Discharge Recommendations are: Recommended discharge disposition: home with assist Post discharge physical therapy recommendation: home health, outpatient therapy, pt is mot ivated participant Equipment Recommendations: 2 wheeled walker (FWW) Planned Interventions: balance training, bed mobility training, gait training, home exerci se program, patient/family education, orthotic fitting/training, transfer training, wheelcha ir management/propulsion training, ROM (Range of Motion), stair training, strengthening Recommended Frequency: (1-2x/day) Patient Status/Goals: Reflects last filed data and may be from multiple contributors. Gait Functional gait in room with FWW/CGA-close SBA but did not focus on gait distance goal toda y. Bed Mobility Provided cues for improved technique but pt able to roll and bridge to scoot laterally on l evel bed without requiring physical assist. He did require CGA-min assist for supine > sit o n level bed without rails. Assistive Device: bed rails Roll Left, Level of [place]: modified independent Roll Right, Level of [place]: modified independent Scoot/Bridge, Level of [place]: stand by assist Supine to Sit, Level of [place]: modified independent Sit to Supine, Level of [place]: modified independent Safety Issues: decreased use of legs for bridging/pushing Impairments: decreased flexibility, ROM decreased, strength decreased Therapeutic Exercise Pt completed sequential body muscle contraction w/ 5 sec hold and then 5 sec of relaxation; pt reported good reduction of pain afterwards. Functional Endurance Impaired due to pain, weakness, and fatigue. PT Goal Review Date Flowsheet Row Most Recent Value STG Review Date 01/08/17 at 01/01/2017 1115 LTG Review Date 01/22/17 at 01/01/2017 1115 All Bed Mobility Goal Flowsheet Row Most Recent Value STG Status discontinued at 01/04/2017 1200 STG [place] Level -- [.] at 01/04/2017 1200 LTG Status -- [.] at 01/04/2017 1200 LTG [place] Level -- [.] at 01/04/2017 1200 Roll Left/Right Goal Flowsheet Row Most Recent Value STG Status new, met at 01/08/2017 1435 STG [place] Level modified independent at 01/08/2017 1435 STG Assistive Device none at 01/08/2017 1435 LTG Status progressing at 01/11/2017 1625 LTG [place] Level independent at 01/08/2017 1435 Scoot/Bridge Goal Flowsheet Row Most Recent Value STG Status met at 01/04/2017 1200 STG [place] Level contact guard assist at 01/01/2017 1115 LTG Status met at 01/08/2017 1435 LTG [place] Level independent at 01/07/2017 1345 Keqhtx-Lxi-Txkixs Goal Flowsheet Row Most Recent Value STG Status met at 01/06/2017 1200 STG [place] Level contact guard assist at 01/01/2017 1115 STG Assistive Device bed rails at 01/01/2017 1115 LTG Status progressing at 01/11/2017 1625 LTG [place] Level independent at 01/08/2017 1100 LTG Assistive Device bed rails at 01/01/2017 1115 Qdejpnnwh-Ean-Nzfclghqo Goal Flowsheet Row Most Recent Value STG Status discontinued at 01/04/2017 1200 STG [place] Level -- [.] at 01/04/2017 1200 STG Assistive Device -- [.] at 01/04/2017 1200 LTG Status -- [.] at 01/04/2017 1200 LTG [place] Level -- [.] at 01/04/2017 1200 All Transfers Goal Flowsheet Row Most Recent Value STG Status met at 01/04/2017 1200 STG [place] Level contact guard assist at 01/01/2017 1115 STG Comments Using Sanam Travis at 01/01/2017 1115 LTG Status progressing at 01/08/2017 1100 LTG [place] Level modified independent at 01/01/2017 1115 LTG Assistive Device 2 wheeled walker (FWW) at 01/01/2017 1115 Gait Goal Flowsheet Row Most Recent Value STG Status continued at 01/11/2017 1625 STG [place] Level minimum assist (75% patient effort) at 01/01/2017 1115 STG Assistive Device 2 wheeled walker (FWW) at 01/01/2017 1115 STG Distance (feet) 15 at 01/01/2017 1115 LTG Status progressing at 01/08/2017 1100 LTG [place] Level modified independent at 01/01/2017 1115 LTG Assistive Device 2 wheeled walker (FWW) at 01/01/2017 1115 LTG Distance (feet) 50 at 01/01/2017 1115 Stair Goal Flowsheet Row Most Recent Value STG Status met at 01/09/2017 1155 STG [place] Level minimum assist (75% patient effort) at 01/01/2017 1115 STG Assistive Device 2 rails at 01/01/2017 1115 STG Number of Stairs 8 at 01/01/2017 1115 LTG Status progressing at 01/11/2017 1625 LTG [place] Level modified independent at 01/01/2017 1115 LTG Assistive Device 2 rails at 01/01/2017 1115 LTG Number of Stairs 8 at 01/01/2017 1115 Wheelchair Goal Flowsheet Row Most Recent Value STG Status discontinued at 01/05/2017 1200 STG -- [.] at 01/05/2017 1200 LTG Status -- [.] at 01/05/2017 1200 Additional Goal #1 PT Flowsheet Row Most Recent Value STG Status met at 01/03/2017 1200 STG Pt will tolerate standing at Sanam Stedy x 1min w/ supervision only at 01/01/2017 1115 LTG Status met at 01/04/2017 1450 LTG pt kenneth standing with fww for 3 minutes supervised at 01/01/2017 1115 Electronically signed by: Catherine Manzo, PT, 01/11/2017 16:52 lan of Care - Arely Pool COTA - 01/11/2017 8:05 AM PDTFormatting of this note might be different fro m the original. Problem: Patient Care Overview (Adult) Goal: Care Team Goals & Evaluation PROBLEM-RELATED GOALS: 3. Dora will call out appropriately for assistance and have no falls during hospitalizati on through 01/18/17 4. Dora's pain will be controlled to 4/10 to allow for activity and rest through 01/18/17 5. Dora will eat 75-100% most meals and accept health shakes through 01/18/17 6. Dora will have a bm qod while in rehab through 01/18/17 7. Dora will void w/o difficulties after catheter removal by 01/18/17 8. Leighanns skin tears and abrasions will heal w/o s/sx infection 9. Dora will transfer with 1 person A by 01/18/17 10. Geovany will be SBA- setup for his ADLs & functional mobility by 01/25/17. STRATEGY TO ACHIEVE GOALS: -monitor for s/sx pain and medicate prn -monitor for s/sx infection, clean wounds prn and perform dressing changes prn -monitor bm's and medicate prn -encourage po intake and ensure pt is drinking health shakes -Velarde cath care q shift. -encourage independence with ambulation and ensure safe transfers - Active participation in OT sessions IRF Occupational Therapy Plan of Care Treatment Note Summary: Pt continues to progress with self care tasks. Pt will benefit from skilled OT s ervices to progress self care tasks to standing at sink for grooming. Occupational Therapy Discharge Recommendations are: Recommended discharge disposition: home with assist Post discharge occupational therapy recommendation: home health, pt is motivated participa nt Equipment Recommendations: 2 wheeled walker (FWW), casserole preparer, sock aide, tub bench Planned Interventions:ADL retraining, strengthening, transfer training, bed mobility traini ng, IADL retraining, balance training, prosthetic fitting/training, ROM (Range of Motion) (e jeanine mgmt as indicated) Recommended Frequency: (6-7x/week) Patient Status/Goals: Reflects last filed data and may be from multiple contributors. ADLs . Pt completed shower w/o physical assist this AM. Bathing, Level of [place]: set up required, supervised Assistive Device: grab bars, hand-held shower head, tub bench, long-handled sponge Bathing Assess/Train, Position: sitting, supported standing Bathing Assess/Train, Impairments: strength decreased, impaired balance No Physical assist needed UB Dressing, Level of [place]: set up required, supervised Assistive Device: none UB Dressing Assess/Train, Position: sitting UB Dressing Assess/Train, Impairments: strength decreased, impaired balance assist for catheter management and for donning and tieing shoes LB Dressing, Level of [place]: stand by assist, verbal cues required, set up required, minimal assist (75% patient effort) Assistive Device: casserole preparer LB Dressing Assess/Train, Position: sitting, standing LB Dressing Assess/Train, Impairments: impaired balance Not Addressed this AM Toileting, Level of [place]: contact guard assist Assistive Device: grab bar, raised toilet seat Toileting Assess/Train, Position: sitting, supported standing Toileting Assess/Train, Impairments: decreased flexibility, ROM decreased, strength decreas ed, impaired balance Asked pt to wait till OT session to complete grooming tasks at sink Grooming, Level of [place]: stand by assist Assistive Device: electric razor Grooming Assess/Train, Position: sitting Grooming Assess/Train, Impairments: impaired balance OT Goal Review Date Flowsheet Row Most Recent Value STG Review Date 01/08/17 at 01/08/2017 0935 LTG Review Date 01/25/17 at 01/08/2017 0935 Grooming Goal Flowsheet Row Most Recent Value STG Status progressing at 01/11/2017 0805 STG [place] Level stand by assist at 01/04/2017 1455 STG Position sitting in chair [at sink] at 01/04/2017 1455 STG Adaptive Equipment none at 01/04/2017 1455 LTG Status progressing at 01/11/2017 0805 LTG [place] Level modified independent at 01/08/2017 0935 LTG Position -- [sitting at sink] at 01/04/2017 1455 Bathing Goal Flowsheet Row Most Recent Value STG Status met at 01/11/2017 0805 STG [place] Level contact guard assist at 01/08/2017 0935 STG Adaptive Equpiment shower chair, tub bench at 01/08/2017 0935 LTG Status progressing at 01/11/2017 0805 LTG [place] Level stand by assist at 01/08/2017 0935 UB Dressing Goal Flowsheet Row Most Recent Value STG Status met at 01/11/2017 0805 STG [place] Level stand by assist at 01/01/2017 1338 LTG Status progressing at 01/11/2017 0805 LTG [place] Level set up required at 01/01/2017 1338 LB Dressing Goal Flowsheet Row Most Recent Value STG Status progressing at 01/11/2017 0805 STG [place] Level contact guard assist at 01/08/2017 0935 STG Adaptive Equipment casserole preparer, sock-aid at 01/08/2017 0935 LTG Status progressing at 01/11/2017 0805 LTG [place] Level set up required at 01/08/2017 0935 Toileting Goal Flowsheet Row Most Recent Value STG Status continued at 01/11/2017 0805 STG [place] Level minimum assist (75% patient effort) at 01/01/2017 1338 LTG Status continued at 01/11/2017 0805 LTG [place] Level stand by assist at 01/08/2017 0935 Toilet Transfer Goal Flowsheet Row Most Recent Value STG Status continued at 01/11/2017 0805 STG [place] Level minimum assist (75% patient effort) at 01/01/2017 1338 LTG Status continued at 01/11/2017 0805 LTG [place] Level supervised at 01/08/2017 0935 Tub/Shower Transfer Goal Flowsheet Row Most Recent Value Tub/Shower Type tub/shower combo at 01/08/2017 0935 STG Status met at 01/10/2017 1809 STG [place] Level minimum assist (75% patient effort) at 01/03/2017 1909 STG Assistive Device tub bench at 01/03/2017 1909 LTG Status progressing at 01/11/2017 0805 LTG [place] Level modified independent at 01/08/2017 0935 LTG Assistive Device tub bench at 01/08/2017 0935 Electronically signed by: Arely Pool, Certified Health Care Marketing Manager, 2016 8:05 lan of Care - Salvatore ramirez, Prema Moncada RN - 01/11/2017 6:11 AM PDTProblem: Patient Care Overview (Adult) Goal: Care Team Goals & Evaluation PROBLEM-RELATED GOALS: 3. Dora will call out appropriately for assistance and have no falls during hospitalizati on through 01/18/17 4. Leighanns pain will be controlled to 4/10 to allow for activity and rest through 01/18/17 5. Dora will eat 75-100% most meals and accept health shakes through 01/18/17 6. Dora will have a bm qod while in rehab through 01/18/17 7. Dora will void w/o difficulties after catheter removal by 01/18/17 8. Leighanns skin tears and abrasions will heal w/o s/sx infection 9. Dora will transfer with 1 person A by 01/18/17 10. Geovany will be SBA- setup for his ADLs & functional mobility by 01/25/17. STRATEGY TO ACHIEVE GOALS: -monitor for s/sx pain and medicate prn -monitor for s/sx infection, clean wounds prn and perform dressing changes prn -monitor bm's and medicate prn -encourage po intake and ensure pt is drinking health shakes -Velarde cath care q shift. -encourage independence with ambulation and ensure safe transfers - Active participation in OT sessions Outcome: Improving Goal Evaluation: Geovany remained alert and oriented x 4 during the night. No s/s of change to pt condition was noted since initial shift assessment. Denied having pain during the night so no pain medica tion given. Pt did not get OOB to ambulate during the shift. He reports a small hard BM yest erday but was given stool softener yesterday am. Skin tears remain dressed and it is noted t hat some of them are healed and did not require to be redressed. CMS remains at baseline and incisions appear without s/s infection. lan of Care - Qasim Cira hernandez, OT - 01/10/2017 6:14 PM PDT Problem: Patient Care Overview (Adult) Goal: Care Team Goals & Evaluation PROBLEM-RELATED GOALS: 3. Dora will call out appropriately for assistance and have no falls during hospitalizati on through 01/18/17 4. Dora's pain will be controlled to 10 to allow for activity and rest through 01/18/17 5. Dora will eat 75-100% most meals and accept health shakes through 01/18/17 6. Dora will have a bm qod while in rehab through 01/18/17 7. Dora will void w/o difficulties after catheter removal by 01/18/17 8. Dora's skin tears and abrasions will heal w/o s/sx infection 9. Dora will transfer with 1 person A by 01/18/17 10. Geovany will be SBA- setup for his ADLs & functional mobility by 01/25/17. STRATEGY TO ACHIEVE GOALS: -monitor for s/sx pain and medicate prn -monitor for s/sx infection, clean wounds prn and perform dressing changes prn -monitor bm's and medicate prn -encourage po intake and ensure pt is drinking health shakes -[facility] care q shift. -encourage independence with ambulation and ensure safe transfers - Active participation in OT sessions Outcome: Improving IRF Occupational Therapy Plan of Care Treatment Note Summary: Pt encountered supine in bed, RN at bedside providing pain meds. Pt SBA to sit EO B, CGA to complete sit to stand x4 for safety. Pt reporting pain c activity. Pt assisted in completeing ADLs, max A, to apply cream to BLEs. Pt reported this assists c pain and his ski n condition and he does this daily. Pt's pain a barrier this session, however, he reports th is has "been a problem for years". OT reccomending pt and look into assisted living fac ilities d/t pt's decreased activity tolerance and inconsistent performance; although pt relu ctant to do so. Pt will benefit from skilled OT services to increase ADL independence and sa fety upon return to home. Occupational Therapy Discharge Recommendations are: Recommended discharge disposition: home with assist Post discharge occupational therapy recommendation: home health, pt is motivated participa nt Equipment Recommendations: 2 wheeled walker (FWW), casserole preparer, sock aide, tub bench Planned Interventions:ADL retraining, strengthening, transfer training, bed mobility traini ng, IADL retraining, balance training, prosthetic fitting/training, ROM (Range of Motion) (e jeanine mgmt as indicated) Recommended Frequency: (6-7x/week) Patient Status/Goals: Reflects last filed data and may be from multiple contributors. Functional Endurance Poor this session d/t report of pain. Cognitive Mood/Behavior: calm, cooperative Orientation: oriented x 4 Arousal Level: opens eyes spontaneously Speech: logical, spontaneous, clear Follows Commands/Answers Questions: 100% of the time Bed Mobility SBA to sit EOB. Assistive Device: bed rails Roll Left, Level of [place]: stand by assist Safety Issues: decreased use of legs for bridging/pushing Impairments: decreased flexibility, ROM decreased, strength decreased Transfers CGA for safety to transfer from sitting EOB to standing. 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 Strength L UE Strength: 4+/5 R UE Strength: 4+/5 OT Goal Review Date Flowsheet Row Most Recent Value STG Review Date 01/08/17 at 01/08/2017 0935 LTG Review Date 01/25/17 at 01/08/2017 0935 Grooming Goal Flowsheet Row Most Recent Value STG Status progressing at 01/10/2017 1809 STG [place] Level stand by assist at 01/04/2017 1455 STG Position sitting in chair [at sink] at 01/04/2017 1455 STG Adaptive Equipment none at 01/04/2017 1455 LTG Status progressing at 01/10/2017 1809 LTG [place] Level modified independent at 01/08/2017 0935 LTG Position -- [sitting at sink] at 01/04/2017 1455 Bathing Goal Flowsheet Row Most Recent Value STG Status progressing at 01/10/2017 1809 STG [place] Level contact guard assist at 01/08/2017 0935 STG Adaptive Equpiment shower chair, tub bench at 01/08/2017 0935 LTG Status progressing at 01/10/2017 1809 LTG [place] Level stand by assist at 01/08/2017 0935 UB Dressing Goal Flowsheet Row Most Recent Value STG Status progressing at 01/10/2017 1809 STG [place] Level stand by assist at 01/01/2017 1338 LTG Status progressing at 01/10/2017 1809 LTG [place] Level set up required at 01/01/2017 1338 LB Dressing Goal Flowsheet Row Most Recent Value STG Status progressing at 01/10/2017 1809 STG [place] Level contact guard assist at 01/08/2017 0935 STG Adaptive Equipment casserole preparer, sock-aid at 01/08/2017 0935 LTG Status progressing at 01/10/2017 1809 LTG [place] Level set up required at 01/08/2017 0935 Toileting Goal Flowsheet Row Most Recent Value STG Status progressing at 01/10/2017 1809 STG [place] Level minimum assist (75% patient effort) at 01/01/2017 1338 LTG Status progressing at 01/10/2017 1809 LTG [place] Level stand by assist at 01/08/2017 0935 Toilet Transfer Goal Flowsheet Row Most Recent Value STG Status progressing at 01/10/2017 1809 STG [place] Level minimum assist (75% patient effort) at 01/01/2017 1338 LTG Status progressing at 01/10/2017 1809 LTG [place] Level supervised at 01/08/2017 0935 Tub/Shower Transfer Goal Flowsheet Row Most Recent Value Tub/Shower Type tub/shower combo at 01/08/2017 0935 STG Status met at 01/10/2017 1809 STG [place] Level minimum assist (75% patient effort) at 01/03/2017 1909 STG Assistive Device tub bench at 01/03/2017 1909 LTG Status progressing at 01/10/2017 1809 LTG [place] Level modified independent at 01/08/2017 0935 LTG Assistive Device tub bench at 01/08/2017 0935 Electronically signed by: Cira Hurst OT, 01/10/2017 18:11 lan of Care - CandySabra RN - 01/10/2017 5:51 PM PDTProblem: Patient Care Overview (Adult) Goal: Care Team Goals & Evaluation PROBLEM-RELATED GOALS: 3. Dora will call out appropriately for assistance and have no falls during hospitalizati on through 01/18/17 4. Leighanns pain will be controlled to 10/29 to allow for activity and rest through 01/18/17 5. Dora will eat 75-100% most meals and accept health shakes through 01/18/17 6. Dora will have a bm qod while in rehab through 01/18/17 7. Dora will void w/o difficulties after catheter removal by 01/18/17 8. Leighanns skin tears and abrasions will heal w/o s/sx infection 9. Dora will transfer with 1 person A by 01/18/17 10. Geovany will be SBA- setup for his ADLs & functional mobility by 01/25/17. 11. Geovany will be able to void w/o difficulties after f/c removal by 01/18/2017 STRATEGY TO ACHIEVE GOALS: -monitor for s/sx pain and medicate prn -monitor for s/sx infection, clean wounds prn and perform dressing changes prn -monitor bm's and medicate prn -encourage po intake and ensure pt is drinking health shakes -[place] cath care q shift. -encourage independence with ambulation and ensure safe transfers - Active participation in OT sessions Outcome: Improving Goal Evaluation: 3. Calling out appropriately for assistance, no falls today, hourly rounding 4. C/o pain to right lower back, described as intermittent ache, taking robaxin for spasms and tramadol and oxycodone for ache. 5. Eating 100% most meals, drinking fluids well. Taking rx whole w applesauce per pt's requ est, stated "they just go easy w applesauce" 6. LBM yesterday in the am 01/09, continent, used BR 01/29. F/c replaced yesterday r/t retention. F/c draining c/y/u, UA sent this am and it was negative 8. Skin tears, abrasions, bruising at different stages of healing, no s/sx infection. Skin tears and abrasions cleaned and new dressings applied 9. Transferring w 1 person A+fww 10. Performing ADL's w 1 person Elida, tolerated therapies today, required pain medications eleanor or to therapies lan of Care - Catherine Sheth, PT - 01/10/2017 4:45 PM PDT Problem: Patient Care Overview (Adult) Goal: Care Team Goals & Evaluation PROBLEM-RELATED GOALS: 3. Dora will call out appropriately for assistance and have no falls during hospitalizati on through 01/18/17 4. Dora's pain will be controlled to 10/29 to allow for activity and rest through 01/18/17 5. Dora will eat 75-100% most meals and accept health shakes through 01/18/17 6. Dora will have a bm qod while in rehab through 01/18/17 7. Dora will void w/o difficulties after catheter removal by 01/18/17 8. Dora's skin tears and abrasions will heal w/o s/sx infection 9. Dora will transfer with 1 person A by 01/18/17 10. Geovany will be SBA- setup for his ADLs & functional mobility by 01/25/17. STRATEGY TO ACHIEVE GOALS: -monitor for s/sx pain and medicate prn -monitor for s/sx infection, clean wounds prn and perform dressing changes prn -monitor bm's and medicate prn -encourage po intake and ensure pt is drinking health shakes -[place] [facility] care q shift. -encourage independence with ambulation and ensure safe transfers - Active participation in OT sessions Physical Therapy Plan of Care Treatment Note Summary: Pt presents in bed; says that his back felt good with walking this morning but th at his pain increased afterwards. Took Oxycodone and pain is calming down. Per pt, he has pathak d episodes of low back pain over the years ever since he broke his back, which he said was 4 -5 years ago. Pt reports that pain usually started with forward flexion activities such as g ardening. Pt with (+) tenderness to palpation at R PSIS this p.m.; pt reports that this is w here he his pain usually is. Also R PSIS was more post vs. L. Pt says that he has seen physi eddie in [place] and then [place] and [place] as well as a chiropractor but has never s ought care in [place] re: his back so his medical records would likely not be in our sys tem. Pt able to participate with bed mobility and transfer training without increased back p ain but then after performing sit <> stand ex, pt reported increased pain, so deferred stair training and assisted pt to lie down. During supine assessment, pt with anthony. 1/2 inch leg l ength discrepency (R LE appears longer than L) but also R ASIS more forward than L in supine . Pt with no tenderness to palpation at B ASIS, pubis or psoas. Trial of pelvic floor ex to try to improve control and alleviate low back pain but pt unable to perform isolated contrac tion and ended up with increased ant. tilt on R and increased pain, so instructed pt to stop . Sx improved with raising HOB to anthony. 30 degrees and propping pt with pillows. Physical Therapy Discharge Recommendations are: Recommended discharge disposition: home with assist Post discharge physical therapy recommendation: home health, outpatient therapy, pt is mot ivated participant Equipment Recommendations: 2 wheeled walker (FWW) Planned Interventions: balance training, bed mobility training, gait training, home exerci se program, patient/family education, orthotic fitting/training, transfer training, wheelcha ir management/propulsion training, ROM (Range of Motion), stair training, strengthening Recommended Frequency: (1-2x/day) Patient Status/Goals: Reflects last filed data and may be from multiple contributors. Transfers Pt able to stand from raised bed height with smoother movement pattern and decreased use of UEs/increased use of LEs vs how pt struggles when standing from regular height bed or wheel chair. Bed-Chair, Level of [place]: stand by assist, verbal cues required Chair-Bed, [place]: stand by assist, verbal cues required Aam-Pcrmx-Equ, Assistive Device: 2 wheeled walker (FWW) Sit-Stand, [place]: stand by assist, verbal cues required Stand-Sit, Level of [place]: stand by assist, verbal cues required Wtt-Fbsby-Kek, Assistive Device: 2 wheeled walker (FWW) Maintain Weight Bearing Status: (WBAT) Safety Issues: weight-shifting ability decreased Impairments: decreased flexibility, ROM decreased, strength decreased, impaired balance Bed Mobility Provided cues for improved technique but pt able to roll and bridge to scoot laterally on l evel bed without requiring physical assist. He did require CGA-min assist for supine > sit o n level bed without rails. Assistive Device: bed rails Roll Left, Level of [place]: modified independent Roll Right, [place]: modified independent Scoot/Bridge, Level of [place]: stand by assist Supine to Sit, Level of [place]: modified independent Sit to Supine, Level of [place]: modified independent Safety Issues: decreased use of legs for bridging/pushing Impairments: decreased flexibility, ROM decreased, strength decreased Therapeutic Exercise Pt completed sit <> stand ex from raised bed height <> FWW 1 x 10; 1 x 5 with 2-3 min seate d rest between. Trial of pelvic floor ex to try to improve control and alleviate low back pa in but pt unable to perform isolated contraction and ended up with increased ant. tilt on R and increased pain, so instructed pt to stop. PT Goal Review Date Flowsheet Row Most Recent Value STG Review Date 01/08/17 at 01/01/2017 1115 LTG Review Date 01/22/17 at 01/01/2017 1115 All Bed Mobility Goal Flowsheet Row Most Recent Value STG Status discontinued at 01/04/2017 1200 STG [place] Level -- [.] at 01/04/2017 1200 LTG Status -- [.] at 01/04/2017 1200 LTG [place] Level -- [.] at 01/04/2017 1200 Roll Left/Right Goal Flowsheet Row Most Recent Value STG Status new, met at 01/08/2017 1435 STG [place] Level modified independent at 01/08/2017 1435 STG Assistive Device none at 01/08/2017 1435 LTG Status progressing at 01/10/2017 1024 LTG [place] Level independent at 01/08/2017 1435 Scoot/Bridge Goal Flowsheet Row Most Recent Value STG Status met at 01/04/2017 1200 STG [place] Level contact guard assist at 01/01/2017 1115 LTG Status met at 01/08/2017 1435 LTG [place] Level independent at 01/07/2017 1345 Jlyovs-Nun-Woaxpw Goal Flowsheet Row Most Recent Value STG Status met at 01/06/2017 1200 STG [place] Level contact guard assist at 01/01/2017 1115 STG Assistive Device bed rails at 01/01/2017 1115 LTG Status progressing at 01/10/2017 1024 LTG [place] Level independent at 01/08/2017 1100 LTG Assistive Device bed rails at 01/01/2017 1115 Lpnmwbxog-Bbp-Coeonkbts Goal Flowsheet Row Most Recent Value STG Status discontinued at 01/04/2017 1200 STG [place] Level -- [.] at 01/04/2017 1200 STG Assistive Device -- [.] at 01/04/2017 1200 LTG Status -- [.] at 01/04/2017 1200 LTG [place] Level -- [.] at 01/04/2017 1200 All Transfers Goal Flowsheet Row Most Recent Value STG Status met at 01/04/2017 1200 STG [place] Level contact guard assist at 01/01/2017 1115 STG Comments Using Sanam Travis at 01/01/2017 1115 LTG Status progressing at 01/08/2017 1100 LTG [place] Level modified independent at 01/01/2017 1115 LTG Assistive Device 2 wheeled walker (FWW) at 01/01/2017 1115 Gait Goal Flowsheet Row Most Recent Value STG Status met at 01/05/2017 1200 STG [place] Level minimum assist (75% patient effort) at 01/01/2017 1115 STG Assistive Device 2 wheeled walker (FWW) at 01/01/2017 1115 STG Distance (feet) 15 at 01/01/2017 1115 LTG Status progressing at 01/08/2017 1100 LTG [place] Level modified independent at 01/01/2017 1115 LTG Assistive Device 2 wheeled walker (FWW) at 01/01/2017 1115 LTG Distance (feet) 50 at 01/01/2017 1115 Stair Goal Flowsheet Row Most Recent Value STG Status met at 01/09/2017 1155 STG [place] Level minimum assist (75% patient effort) at 01/01/2017 1115 STG Assistive Device 2 rails at 01/01/2017 1115 STG Number of Stairs 8 at 01/01/2017 1115 LTG Status progressing at 01/09/2017 1155 LTG [place] modified independent at 01/01/2017 1115 LTG Assistive Device 2 rails at 01/01/2017 1115 LTG Number of Stairs 8 at 01/01/2017 1115 Wheelchair Goal Flowsheet Row Most Recent Value STG Status discontinued at 01/05/2017 1200 STG -- [.] at 01/05/2017 1200 LTG Status -- [.] at 01/05/2017 1200 Additional Goal #1 PT Flowsheet Row Most Recent Value STG Status met at 01/03/2017 1200 STG Pt will tolerate standing at Sanam Stedy x 1min w/ supervision only at 01/01/2017 1115 LTG Status met at 01/04/2017 1450 LTG pt kenneth standing with fww for 3 minutes supervised at 01/01/2017 1115 Electronically signed by: Catherine Manzo, PT, 01/10/2017 18:10 lan of Care - Catherine Parmar, PT - 01/10/2017 10:24 AM PDT Problem: Patient Care Overview (Adult) Goal: Care Team Goals & Evaluation PROBLEM-RELATED GOALS: 3. Dora will call out appropriately for assistance and have no falls during hospitalizati on through 01/18/17 4. Leighanns pain will be controlled to 4/10 to allow for activity and rest through 01/18/17 5. Droa will eat 75-100% most meals and accept health shakes through 01/18/17 6. Dora will have a bm qod while in rehab through 01/18/17 7. Dora will void w/o difficulties after catheter removal by 01/18/17 8. Leighanns skin tears and abrasions will heal w/o s/sx infection 9. Dora will transfer with 1 person A by 01/18/17 10. Geovany will be SBA- setup for his ADLs & functional mobility by 01/25/17. 11. Geovany will be able to void with minimal PVR by 02/12/2017 STRATEGY TO ACHIEVE GOALS: -monitor for s/sx pain and medicate prn -monitor for s/sx infection, clean wounds prn and perform dressing changes prn -monitor bm's and medicate prn -encourage po intake and ensure pt is drinking health [facility] q shift. -encourage independence with ambulation and ensure safe transfers - Active participation in OT sessions Physical Therapy Plan of Care Treatment Note Summary: Pt presents in bed; says that his tailbone is still sore when he lies on it and t hat he still has some muscle spasm in the R side of his low back but otherwise if feeling go od. Wants to walk. Treatment focused on blocked gait trials with 2-3 min seated rests betwee n for recovery period. Wheelchair mobility training and HS and hip flexor strengthening yamili ng return to room. Also reviewed pictures and measurements that son has emailed re: home sit uation and talked with pt about how [facility] and where he could get more assist if needed. Pt says that he and his discussed future plans and that he is willing to consider moving to a ground level apt for 1-2 months just so he can recover in a safer environment but that he is not willing to s ell his home. Physical Therapy Discharge Recommendations are: Recommended discharge disposition: home with assist Post discharge physical therapy recommendation: home health, outpatient therapy, pt is mot ivated participant Equipment Recommendations: 2 wheeled walker (FWW) Planned Interventions: balance training, bed mobility training, gait training, home exerci se program, patient/family education, orthotic fitting/training, transfer training, wheelcha ir management/propulsion training, ROM (Range of Motion), stair training, strengthening Recommended Frequency: (1-2x/day) Patient Status/Goals: Reflects last filed data and may be from multiple contributors. Gait Blocked gait trials; provided CGA for safety due to high fall risk and visible LE unsteadin ess but no actual buckling or LOB as pt sat to rest when fatigued, Level of [place]: contact guard assist Assistive Device: 2 wheeled walker (FWW) Distance (feet): 40 ft x 6 with seated rests between each gait trial Transfers Raised bed height to facilitate ease of sit <> stand transfer; pt able to stand from raised bed with SBA for safety. Bed-Chair, Level of [place]: stand by assist, verbal cues required Chair-Bed, Level of [place]: stand by assist, verbal cues required Mgh-Urjhy-Bzx, Assistive Device: 2 wheeled walker (FWW) Sit-Stand, Level of [place]: stand by assist, verbal cues required Stand-Sit, Level of [place]: stand by assist, verbal cues required [id number], Assistive Device: 2 wheeled walker (FWW) Maintain Weight Bearing Status: (WBAT) Safety Issues: weight-shifting ability decreased Impairments: decreased flexibility, ROM decreased, strength decreased, impaired balance Bed Mobility Provided cues for improved technique but pt able to roll and bridge to scoot laterally on l evel bed without requiring physical assist. He did require CGA-min assist for supine > sit o n level bed without rails. Assistive Device: bed rails Roll Left, Level of [place]: stand by assist, verbal cues required Roll Right, Level of [place]: modified independent Scoot/Bridge, Level of [place]: stand by assist Supine to Sit, Level of [place]: stand by assist, verbal cues required Sit to Supine, Level of [place]: modified independent Safety Issues: decreased use of legs for bridging/pushing Impairments: decreased flexibility, ROM decreased, strength decreased Therapeutic Exercise Hip flexor and HS strengthening ex during wheelchair mobility training. Functional Endurance Impaired but improving; pt requires seated rest after 40 ft of gait. PT Goal Review Date Flowsheet Row Most Recent Value STG Review Date 01/08/17 at 01/01/2017 1115 LTG Review Date 01/22/17 at 01/01/2017 1115 All Bed Mobility Goal Flowsheet Row Most Recent Value STG Status discontinued at 01/04/2017 1200 STG [place] Level -- [.] at 01/04/2017 1200 LTG Status -- [.] at 01/04/2017 1200 LTG [place] Level -- [.] at 01/04/2017 1200 Roll Left/Right Goal Flowsheet Row Most Recent Value STG Status new, met at 01/08/2017 1435 STG [place] Level modified independent at 01/08/2017 1435 STG Assistive Device none at 01/08/2017 1435 LTG Status progressing at 01/10/2017 1024 LTG [place] Level independent at 01/08/2017 1435 Scoot/Bridge Goal Flowsheet Row Most Recent Value STG Status met at 01/04/2017 1200 STG [place] Level contact guard assist at 01/01/2017 1115 LTG Status met at 01/08/2017 1435 LTG [place] Level independent at 01/07/2017 1345 Lqyqlt-Cbn-Bmkqfs Goal Flowsheet Row Most Recent Value STG Status met at 01/06/2017 1200 STG [place] Level contact guard assist at 01/01/2017 1115 STG Assistive Device bed rails at 01/01/2017 1115 LTG Status progressing at 01/10/2017 1024 LTG [place] Level independent at 01/08/2017 1100 LTG Assistive Device bed rails at 01/01/2017 1115 Fukieaiwc-Dyq-Jcieoefam Goal Flowsheet Row Most Recent Value STG Status discontinued at 01/04/2017 1200 STG [place] Level -- [.] at 01/04/2017 1200 STG Assistive Device -- [.] at 01/04/2017 1200 LTG Status -- [.] at 01/04/2017 1200 LTG [place] Level -- [.] at 01/04/2017 1200 All Transfers Goal Flowsheet Row Most Recent Value STG Status met at 01/04/2017 1200 STG [place] Level contact guard assist at 01/01/2017 1115 STG Comments Using Sanam Thaddeus at 01/01/2017 1115 LTG Status progressing at 01/08/2017 1100 LTG [place] Level modified independent at 01/01/2017 1115 LTG Assistive Device 2 wheeled walker (FWW) at 01/01/2017 1115 Gait Goal Flowsheet Row Most Recent Value STG Status met at 01/05/2017 1200 STG [place] Level minimum assist (75% patient effort) at 01/01/2017 1115 STG Assistive Device 2 wheeled walker (FWW) at 01/01/2017 1115 STG Distance (feet) 15 at 01/01/2017 1115 LTG Status progressing at 01/08/2017 1100 LTG [place] Level modified independent at 01/01/2017 1115 LTG Assistive Device 2 wheeled walker (FWW) at 01/01/2017 1115 LTG Distance (feet) 50 at 01/01/2017 1115 Stair Goal Flowsheet Row Most Recent Value STG Status met at 01/09/2017 1155 STG [place] Level minimum assist (75% patient effort) at 01/01/2017 1115 STG Assistive Device 2 rails at 01/01/2017 1115 STG Number of Stairs 8 at 01/01/2017 1115 LTG Status progressing at 01/09/2017 1155 LTG [place] Level modified independent at 01/01/2017 1115 LTG Assistive Device 2 rails at 01/01/2017 1115 LTG Number of Stairs 8 at 01/01/2017 1115 Wheelchair Goal Flowsheet Row Most Recent Value STG Status discontinued at 01/05/2017 1200 STG -- [.] at 01/05/2017 1200 LTG Status -- [.] at 01/05/2017 1200 Additional Goal #1 PT Flowsheet Row Most Recent Value STG Status met at 01/03/2017 1200 STG Pt will tolerate standing at Sanam Stedy x 1min w/ supervision only at 01/01/2017 1115 LTG Status met at 01/04/2017 1450 LTG pt kenneth standing with fww for 3 minutes supervised at 01/01/2017 1115 Electronically signed by: Catherine Manzo, PT, 01/10/2017 13:19 lan of Care - Prema Puri RN - 01/10/2017 8:22 AM PDTProblem: Patient Care Overview (Adult) Goal: Care Team Goals & Evaluation PROBLEM-RELATED GOALS: 3. Dora will call out appropriately for assistance and have no falls during hospitalizati on through 01/18/17 4. Leighanns pain will be controlled to 4/10 to allow for activity and rest through 01/18/17 5. Dora will eat 75-100% most meals and accept health shakes through 01/18/17 6. Dora will have a bm qod while in rehab through 01/18/17 7. Dora will void w/o difficulties after catheter removal by 01/18/17 8. Leighanns skin tears and abrasions will heal w/o s/sx infection 9. Dora will transfer with 1 person A by 01/18/17 10. Geovany will be SBA- setup for his ADLs & functional mobility by 01/25/17. 11. Geovany will be able to void with minimal PVR by 02/12/2017 STRATEGY TO ACHIEVE GOALS: -monitor for s/sx pain and medicate prn -monitor for s/sx infection, clean wounds prn and perform dressing changes prn -monitor bm's and medicate prn -encourage po intake and ensure pt is drinking health shakes -[place] cath care q shift. -encourage independence with ambulation and ensure safe transfers - Active participation in OT sessions Outcome: Unchanged Goal Evaluation: Geovany remained alert and oriented during the night. No changes to assessment were noted from initial shift assessment this evening. Pt continues to have swelling to bilateral hips, no new bruising yet seen since assisted fall to the floor on day shift. He denied need for pain medication during the night. CMS remains intact. Various skin tears remain dressed and thos e will be changed after pt shower this am. [place] catheter is draining adequate amounts of ur ine and UA was sent per order. Pt appeared to have slept well during rounding. lan of Care - Arely Faria COTA - 01/10/2017 8:05 AM PDT Problem: Patient Care Overview (Adult) Goal: Care Team Goals & Evaluation PROBLEM-RELATED GOALS: 3. Dora will call out appropriately for assistance and have no falls during hospitalizati on through 01/18/17 4. Dora's pain will be controlled to 4/10 to allow for activity and rest through 01/18/17 5. Dora will eat 75-100% most meals and accept health shakes through 01/18/17 6. Dora will have a bm qod while in rehab through 01/18/17 7. Dora will void w/o difficulties after catheter removal by 01/18/17 8. Dora's skin tears and abrasions will heal w/o s/sx infection 9. Dora will transfer with 1 person A by 01/18/17 10. Geovany will be SBA- setup for his ADLs & functional mobility by 01/25/17. 11. Geovany will be able to void with minimal PVR by 02/12/2017 STRATEGY TO ACHIEVE GOALS: -monitor for s/sx pain and medicate prn -monitor for s/sx infection, clean wounds prn and perform dressing changes prn -monitor bm's and medicate prn -encourage po intake and ensure pt is drinking health [facility] -[place] cath care q shift. -encourage independence with ambulation and ensure safe transfers - Active participation in OT sessions IRF Occupational Therapy Plan of Care Treatment Note Summary: Pt agreeable to therapy this AM, requesting to shower. Pt completing bed mob to EOB w/o assist using bed features. Pt requested elevated bed height for easier sit to stand . all thranfers this AM SBA, pt agreeable to ambulated into and out room for shower this A M. Pt presenting with increased independence with self care tasks this AM . Pt agreeable t o stay up in W/C for breakfast . Call light and phone with in reach. Pt's brought in shoes., replaced laces with elastic ones for easier donning/doffing. Occupational Therapy Discharge Recommendations are: Recommended discharge disposition: home with assist Post discharge occupational therapy recommendation: home health, pt is motivated participa nt Equipment Recommendations: 2 wheeled walker (FWW), casserole preparer, sock aide, tub bench Planned Interventions:ADL retraining, strengthening, transfer training, bed mobility traini ng, IADL retraining, balance training, prosthetic fitting/training, ROM (Range of Motion) (e jeanine mgmt as indicated) Recommended Frequency: (6-7x/week) Patient Status/Goals: Reflects last filed data and may be from multiple contributors. ADLs Pt requesting to shower this AM shower using AE/DME. physical assist with jose care in standing Bathing, Level of [place]: set up required, supervised Assistive Device: grab bars, hand-held shower head, long-handled sponge, tub bench Bathing Assess/Train, Position: sitting, supported standing Bathing Assess/Train, Impairments: strength decreased, impaired balance No Physical assist needed UB Dressing, Level of [place]: set up required Assistive Device: none UB Dressing Assess/Train, Position: sitting UB Dressing Assess/Train, Impairments: strength decreased, impaired balance touch cues for catheter management w/ LB dressing and with donning clothing over hips. LB Dressing, Level of [place]: contact guard assist, verbal cues required, set up requ ired Assistive Device: sock-aid LB Dressing Assess/Train, Position: supported standing LB Dressing Assess/Train, Impairments: impaired balance Not Addressed this AM Toileting, Level of [place]: contact guard assist Assistive Device: grab bar, raised toilet seat Toileting Assess/Train, Position: sitting, supported standing Toileting Assess/Train, Impairments: decreased flexibility, ROM decreased, strength decreas ed, impaired balance Pt reports grooming completed first this AM. Grooming, Level of [place]: set up required Assistive Device: electric razor Grooming Assess/Train, Position: sitting Grooming Assess/Train, Impairments: impaired balance Transfers Parked w/c out side of bath room, Pt ambulated in/out of bathroom using FWW SBA Bed-Chair, Level of [place]: stand by assist, verbal cues required Vmw-[id number], Assistive Device: 2 wheeled walker (FWW) Sit-Stand, Level of [place]: stand by assist, verbal cues required Stand-Sit, Level of [place]: stand by assist, verbal cues required Jew-Wzmmg-Loo, Assistive Device: 2 wheeled walker (FWW) Tub, Level of [place]: stand by assist Tub, Assistive Device: grab bars, tub bench Safety Issues: weight-shifting ability decreased Impairments: decreased flexibility, ROM decreased, strength decreased, impaired balance OT Goal Review Date Flowsheet Row Most Recent Value STG Review Date 01/08/17 at 01/08/2017 0935 LTG Review Date 01/25/17 at 01/08/2017 0935 Grooming Goal Flowsheet Row Most Recent Value STG Status progressing at 01/10/2017 0805 STG [place] Level stand by assist at 01/04/2017 1455 STG Position sitting in chair [at sink] at 01/04/2017 1455 STG Adaptive Equipment none at 01/04/2017 1455 LTG Status continued at 01/10/2017 0805 LTG [place] modified independent at 01/08/2017 0935 LTG Position -- [sitting at sink] at 01/04/2017 1455 Bathing Goal Flowsheet Row Most Recent Value STG Status progressing at 01/10/2017 0805 STG [place] contact guard assist at 01/08/2017 0935 STG Adaptive Equpiment shower chair, tub bench at 01/08/2017 0935 LTG Status progressing at 01/10/2017 0805 LTG [place] stand by assist at 01/08/2017 0935 UB Dressing Goal Flowsheet Row Most Recent Value STG Status met at 01/10/2017 0805 STG [place] stand by assist at 01/01/2017 1338 LTG Status met at 01/10/2017 0805 LTG [place] set up required at 01/01/2017 1338 LB Dressing Goal Flowsheet Row Most Recent Value STG Status met at 01/10/2017 0805 STG [place] contact guard assist at 01/08/2017 0935 STG Adaptive Equipment casserole preparer, sock-aid at 01/08/2017 0935 LTG Status progressing at 01/10/2017 0805 LTG [place] set up required at 01/08/2017 0935 Toileting Goal Flowsheet Row Most Recent Value STG Status met at 01/09/2017 0952 STG [place] minimum assist (75% patient effort) at 01/01/2017 1338 LTG Status progressing at 01/10/2017 0805 LTG [place] stand by assist at 01/08/2017 0935 Toilet Transfer Goal Flowsheet Row Most Recent Value STG Status met at 01/09/2017 0952 STG [place] minimum assist (75% patient effort) at 01/01/2017 1338 LTG Status progressing at 01/10/2017 0805 LTG [place] supervised at 01/08/2017 0935 Tub/Shower Transfer Goal Flowsheet Row Most Recent Value Tub/Shower Type tub/shower combo at 01/08/2017 0935 STG Status met at 01/10/2017 0805 STG [place] minimum assist (75% patient effort) at 01/03/2017 1909 STG Assistive Device tub bench at 01/03/2017 1909 LTG Status progressing at 01/10/2017 0805 LTG [place] modified independent at 01/08/2017 0935 LTG Assistive Device tub bench at 01/08/2017 0935 Electronically signed by: Arely Pool, Certified Health Care Marketing Manager, 2016 8:05 lan of Care - Cira Rodriguez OT - 01/09/2017 6:21 PM PDTProblem: Patient Care Overview (Adult) Goal: Care Team Goals & Evaluation PROBLEM-RELATED GOALS: 3. Dora will call out appropriately for assistance and have no falls during hospitalizati on through 01/18/17 4. Dora's pain will be controlled to 4/10 to allow for activity and rest through 01/18/17 5. Dora will eat 75-100% most meals and accept health shakes through 01/18/17 6. Dora will have a bm qod while in rehab through 01/18/17 7. Dora will void w/o difficulties after catheter removal by 01/18/17 8. Dora's skin tears and abrasions will heal w/o s/sx infection 9. Dora will transfer with 1 person A by 01/18/17 10. Geovany will be SBA- setup for his ADLs & functional mobility by 01/25/17. 11. Geovany will be able to void with minimal PVR by 02/12/2017 STRATEGY TO ACHIEVE GOALS: -monitor for s/sx pain and medicate prn -monitor for s/sx infection, clean wounds prn and perform dressing changes prn -monitor bm's and medicate prn -encourage po intake and ensure pt is drinking health shakes -Velarde cath care q shift. -encourage independence with ambulation and ensure safe transfers - Active participation in OT sessions Outcome: Improving Missed Visit Patient Information Patient Name: Dora Arellano Date of : 1930 Age: 86 y.o. The patient was unable to be seen for today's scheduled visit due to complaint of back pain following stairs. Plan: Follow up as per POC. Electronically signed by: Cira Hurst OT, 01/09/2017 18:20 lan of Care - [facility] eulalia, Jeanine Winchester RN - 01/09/2017 2:54 PM PDTProblem: Patient Care Overview (Adult) Goal: Care Team Goals & Evaluation PROBLEM-RELATED GOALS: 3. Dora will call out appropriately for assistance and have no falls during hospitalizati on through 01/18/17 4. Dora's pain will be controlled to 4/10 to allow for activity and rest through 01/18/17 5. Dora will eat 75-100% most meals and accept health shakes through 01/18/17 6. Dora will have a bm qod while in rehab through 01/18/17 7. Dora will void w/o difficulties after catheter removal by 01/18/17 8. Leighanns skin tears and abrasions will heal w/o s/sx infection 9. Dora will transfer with 1 person A by 01/18/17 10. Geovany will be SBA- setup for his ADLs & functional mobility by 01/25/17. 11. Geovany will be able to void with minimal PVR by 02/12/2017 STRATEGY TO ACHIEVE GOALS: -monitor for s/sx pain and medicate prn -monitor for s/sx infection, clean wounds prn and perform dressing changes prn -monitor bm's and medicate prn -encourage po intake and ensure pt is drinking health shakes -Velarde cath care q shift. -encourage independence with ambulation and ensure safe transfers - Active participation in OT sessions Outcome: Declining Goal Evaluation: Geovany was up with PT this morning for ADL's and had to sit down due to fatigue. He missed the WC and was guided to floor by PT with support of CGA and Gait belt. Geovany now reporting increased pain in R hip and coccyx. Medicated with Robaxin and PO Oxycodone 5mg at 1315. H e is a one person transfer with FWW. Rates pain 5/10 before RX. He was not able to partici hastings in PT this afternoon secondary to pain and need to rest. Geovany ate 100% of meals. He had a BM this morning 01/09/2107. Geovany Had a PRV bladder scan of 471. Straight cath of 35m l. Velarde placed per MD order. reatment Plan - [place] ra, RN - 01/09/2017 1:20 PM PDTC/o pain to right hip area, radiating to tail bone, described as aching constant, rx oxycodone 5mg given, will monitor if more is needed. rx ro baxin given during lunch at 1210. PT notified about increased pain, session held r/t pain. F /c indwelling replaced 16fr, tolerated procedure well. Will notify MD about increased pain a nd unable to perform therapy this afternoon r/t pain. Will continue monitoring lan of [facility] - Catherine Manzo, PT - 01/09/2017 1:00 PM PDTProblem: Patient Care Overview (Adult) Goal: Care Team Goals & Evaluation PROBLEM-RELATED GOALS: 3. Dora will call out appropriately for assistance and have no falls during hospitalizati on through 01/18/17 4. Dora's pain will be controlled to 4/10 to allow for activity and rest through 01/18/17 5. Dora will eat 75-100% most meals and accept health shakes through 01/18/17 6. Dora will have a bm qod while in rehab through 01/18/17 7. Dora will void w/o difficulties after catheter removal by 01/18/17 8. Leighanns skin tears and abrasions will heal w/o s/sx infection 9. Dora will transfer with 1 person A by 01/18/17 10. Geovany will be SBA- setup for his ADLs & functional mobility by 01/25/17. 11. Geovany will be able to void with minimal PVR by 02/12/2017 STRATEGY TO ACHIEVE GOALS: -monitor for s/sx pain and medicate prn -monitor for s/sx infection, clean wounds prn and perform dressing changes prn -monitor bm's and medicate prn -encourage po intake and ensure pt is drinking health shakes -Velarde cath care q shift. -encourage independence with ambulation and ensure safe transfers - Active participation in OT sessions Missed Visit Patient Information Patient Name: Dora Arellano Date of : 1930 Age: 86 y.o. RN re-inserting catheter, so pt is unavailable for PT. Also RN says that pt is now c/o incr eased pain in B low back and tailbone and so she is going to call and let Dr. Ricardo know a nd ask for a therapies as tolerated order. Electronically signed by: Catherine Manzo, KATEY, 01/09/2017 14:53 lan of Care - Catherine Parmar, PT - 01/09/2017 11:55 AM PDT Problem: Patient Care Overview (Adult) Goal: Care Team Goals & Evaluation PROBLEM-RELATED GOALS: 3. Dora will call out appropriately for assistance and have no falls during hospitalizati on through 01/18/17 4. Dora's pain will be controlled to allow for activity and rest through 01/18/17 5. Dora will eat 75-100% most meals and accept health shakes through 01/18/17 6. Dora will have a bm qod while in rehab through 01/18/17 7. Dora will void w/o difficulties after catheter removal by 01/18/17 8. Dora's skin tears and abrasions will heal w/o s/sx infection 9. Dora will transfer with 1 person A by 01/18/17 10. Geovany will be SBA- setup for his ADLs & functional mobility by 01/25/17. STRATEGY TO ACHIEVE GOALS: -monitor for s/sx pain and medicate prn -monitor for s/sx infection, clean wounds prn and perform dressing changes prn -monitor bm's and medicate prn -encourage po intake and ensure pt is drinking health shakes -monitor voids and perform bladder scans -encourage independence with ambulation and ensure safe transfers - Active participation in OT sessions RESTRAINT-RELATED GOALS: STRATEGIES TO ACHIEVE RESTRAINT GOALS: Outcome: Improving Physical Therapy Plan of Care Treatment Note Summary: Pt presents in bed; says that his tailbone is a little sorer but otherwise he mcdonald s not feel any other increased sx after his controlled descent to the floor earlier this a.m . (Also this PT was present and helped to assist pt back to bed and watched as Dr. Haleigh marrero ssessed LE movement and checked pt over for injury before we get him back to bed via Alok moncada ift). Pt opting to work on bed mobility, transfers, stairs and ex this a.m. and save gait tr champ for p.m. Pt did well with bed mobility and transfers. Said that his legs got fatigued and that he had mild soreness (1-2/10) in B mid-thighs after stair training in // bars. How ever, after 5 min and 15 sec of recumbent stepper on L1, pt reported increased discomfort in R low back near attachment for quadratus lumborum. Trial of gentle arm raises and ant pelvi c tilt did not change sx; however, pt reported some relief with placement of PT's hand at lo w back, so trial of towel roll for lumbar support. Pt reported that this seems to help but a greed that he would remove it if sx increased. Pt reports that this is not a new sx and that he responded well to muscle relaxants and has asked the doctor if he could take these again . Also talked with pt about how stairs present an increased fall risk for him. Talked with p t re: the possibility of moving to a residence without stairs. Pt reports that single level homes are difficult to find in [place] and that he and his plan to stay in their [facility] home. Physical Therapy Discharge Recommendations are: Recommended discharge disposition: home with assist Post discharge physical therapy recommendation: home health, outpatient therapy, pt is mot ivated participant Equipment Recommendations: 2 wheeled walker (FWW) Planned Interventions: balance training, bed mobility training, gait training, home exerci se program, patient/family education, orthotic fitting/training, transfer training, wheelcha ir management/propulsion training, ROM (Range of Motion), stair training, strengthening Recommended Frequency: (1-2x/day) Patient Status/Goals: Reflects last filed data and may be from multiple contributors. Gait close SBA d/t high fall risk and observed instability, able to complete w/c follow w/o need for 2nd person Level of [place]: stand by assist Assistive Device: 2 wheeled walker (FWW) Distance (feet): 35 x 5 + 50 Stairs Stair training completed with 6 inch step in // bars with 2P CGA for safety. Number of Stairs: 8 Handrail Location: both sides Level of [place]: minimal assist (75% patient effort), verbal cues required Assistive Device: 2 rails Technique Used: step to step (ascending), step to step (descending) Maintain Weight Bearing Status: (.) Safety Issues: balance decreased during turns Impairments: pain, impaired balance, strength decreased, motor control impaired, decreased flexibility, ROM decreased Transfers Raised bed height to facilitate ease of sit <> stand transfer; pt able to stand from raised bed with SBA for safety. Bed-Chair, Level of [place]: stand by assist, verbal cues required Chair-Bed, Level of [place]: stand by assist, verbal cues required Efg-Vllyf-Lwe, Assistive Device: 2 wheeled walker (FWW) Sit-Stand, Level of [place]: stand by assist, verbal cues required Stand-Sit, Level of [place]: stand by assist, verbal cues required Lle-Letxi-Pti, Assistive Device: 2 wheeled walker (FWW) Maintain Weight Bearing Status: (WBAT) Safety Issues: weight-shifting ability decreased Impairments: decreased flexibility, ROM decreased, strength decreased, impaired balance Bed Mobility Provided cues for improved technique but pt able to roll and bridge to scoot laterally on l evel bed without requiring physical assist. He did require CGA-min assist for supine > sit o n level bed without rails. Assistive Device: bed rails Roll Left, Level of [place]: stand by assist, verbal cues required Roll Right, Level of [place]: stand by assist, verbal cues required Scoot/Bridge, Level of [place]: stand by assist, verbal cues required Supine to Sit, Level of [place]: stand by assist, verbal cues required Sit to Supine, Level of [place]: modified independent Safety Issues: decreased use of legs for bridging/pushing Impairments: decreased flexibility, ROM decreased, strength decreased Wheelchair Mobility Type: standard Surface: indoor Distance (feet): 150 Speed: moderate Level of [place]: set up required Propulsion Technique: bilateral UE's Components: brakes, elevating leg rests (pt able to apply brakes on his own but requires as sist with footrests) Components Management Assistance: Min assist. Therapeutic Exercise Pt completed 5 min and 15 sec on L1 recumbent stepper when he reported that the R side of h is low back started bothering him more Had pt stop at that point and trial of seated arm bernla ses to facilitate ant. pelivic tilt; no change in sx with this. Trial of rolled towel for emmett mbar support. Pt reported that this seemed to help. Left towel roll at low back; pt agreed t hat he would remove the towel if he felt it was uncomfortable. Functional Endurance Improving w/ pt able to mobilize 25' w/ FWW x 4 w/ only mild SOB PT Goal Review Date Flowsheet Row Most Recent Value STG Review Date 01/08/17 at 01/01/2017 1115 LTG Review Date 01/22/17 at 01/01/2017 1115 All Bed Mobility Goal Flowsheet Row Most Recent Value STG Status discontinued at 01/04/2017 1200 STG [place] -- [.] at 01/04/2017 1200 LTG Status -- [.] at 01/04/2017 1200 LTG [place] Level -- [.] at 01/04/2017 1200 Roll Left/Right Goal Flowsheet Row Most Recent Value STG Status new, met at 01/08/2017 1435 STG [place] Level modified independent at 01/08/2017 1435 STG Assistive Device none at 01/08/2017 1435 LTG Status progressing at 01/09/2017 1155 LTG [place] independent at 01/08/2017 1435 Scoot/Bridge Goal Flowsheet Row Most Recent Value STG Status met at 01/04/2017 1200 STG [place] contact guard assist at 01/01/2017 1115 LTG Status met at 01/08/2017 1435 LTG [place] Level independent at 01/07/2017 1345 Cwkvqo-Lvq-Cydjzr Goal Flowsheet Row Most Recent Value STG Status met at 01/06/2017 1200 STG [place] contact guard assist at 01/01/2017 1115 STG Assistive Device bed rails at 01/01/2017 1115 LTG Status progressing at 01/09/2017 1155 LTG [place] independent at 01/08/2017 1100 LTG Assistive Device bed rails at 01/01/2017 1115 Fexetkuel-Djr-Kwwempqdv Goal Flowsheet Row Most Recent Value STG Status discontinued at 01/04/2017 1200 STG [place] Level -- [.] at 01/04/2017 1200 STG Assistive Device -- [.] at 01/04/2017 1200 LTG Status -- [.] at 01/04/2017 1200 LTG [place] Level -- [.] at 01/04/2017 1200 All Transfers Goal Flowsheet Row Most Recent Value STG Status met at 01/04/2017 1200 STG [place] Level contact guard assist at 01/01/2017 1115 STG Comments Using Sanam Travis at 01/01/2017 1115 LTG Status progressing at 01/08/2017 1100 LTG [place] Level modified independent at 01/01/2017 1115 LTG Assistive Device 2 wheeled walker (FWW) at 01/01/2017 1115 Gait Goal Flowsheet Row Most Recent Value STG Status met at 01/05/2017 1200 STG [place] minimum assist (75% patient effort) at 01/01/2017 1115 STG Assistive Device 2 wheeled walker (FWW) at 01/01/2017 1115 STG Distance (feet) 15 at 01/01/2017 1115 LTG Status progressing at 01/08/2017 1100 LTG [place] modified independent at 01/01/2017 1115 LTG Assistive Device 2 wheeled walker (FWW) at 01/01/2017 1115 LTG Distance (feet) 50 at 01/01/2017 1115 Stair Goal Flowsheet Row Most Recent Value STG Status met at 01/09/2017 1155 STG [place] Level minimum assist (75% patient effort) at 01/01/2017 1115 STG Assistive Device 2 rails at 01/01/2017 1115 STG Number of Stairs 8 at 01/01/2017 1115 LTG Status progressing at 01/09/2017 1155 LTG [place] Level modified independent at 01/01/2017 1115 LTG Assistive Device 2 rails at 01/01/2017 1115 LTG Number of Stairs 8 at 01/01/2017 1115 Wheelchair Goal Flowsheet Row Most Recent Value STG Status discontinued at 01/05/2017 1200 STG -- [.] at 01/05/2017 1200 LTG Status -- [.] at 01/05/2017 1200 Additional Goal #1 PT Flowsheet Row Most Recent Value STG Status met at 01/03/2017 1200 STG Pt will tolerate standing at Sanam Stedy x 1min w/ supervision only at 01/01/2017 1115 LTG Status met at 01/04/2017 1450 LTG pt kenneth standing with fww for 3 minutes supervised at 01/01/2017 1115 Electronically signed by: Catherine Manzo, PT, 01/09/2017 13:28 lan of Care - Cira Mclean OT - 01/09/2017 9:57 AM PDTFormatting of this note might be different from t he original. Problem: Patient Care Overview (Adult) Goal: Care Team Goals & Evaluation PROBLEM-RELATED GOALS: 3. Dora will call out appropriately for assistance and have no falls during hospitalizati on through 01/18/17 4. Dora's pain will be controlled to allow for activity and rest through 01/18/17 5. Dora will eat 75-100% most meals and accept health shakes through 01/18/17 6. Dora will have a bm qod while in rehab through 01/18/17 7. Dora will void w/o difficulties after catheter removal by 01/18/17 8. Leighanns skin tears and abrasions will heal w/o s/sx infection 9. Dora will transfer with 1 person A by 01/18/17 10. Geovany will be SBA- setup for his ADLs & functional mobility by 01/25/17. STRATEGY TO ACHIEVE GOALS: -monitor for s/sx pain and medicate prn -monitor for s/sx infection, clean wounds prn and perform dressing changes prn -monitor bm's and medicate prn -encourage po intake and ensure pt is drinking health shakes -monitor voids and perform bladder scans -encourage independence with ambulation and ensure safe transfers - Active participation in OT sessions RESTRAINT-RELATED GOALS: STRATEGIES TO ACHIEVE RESTRAINT GOALS: Outcome: Improving IRF Occupational Therapy Plan of Care Treatment Note Summary: Pt encountered seated in wc, agreeable to therapy. Reported need to use the bathr oom immediately. PT CGA to rise to FWW from WC and transfer to toilet. Pt stood at sink c CG A to wash hand and face. Pt demonstrated decreased activity tolerance, requesting a rest rome ak after ~ 3 minutes. Pt required CGA to sit to wc. OT assured breaks of wc were locked. Pt instructed in safe transfer technique however d/t fatigue went to sit quickly, missing seat of wc. Pt guided to floor c gait belt, landing on floor with OT guiding fall and supporting pt until he reached floor. , RN alerted. Pt reported no pain and was assisted to bed via d ependent alok lift. Pt reported "pillow on the chair messed me up". Pt positioned in bed. P t will benefit from further skilled OT services to increase ADL independence Occupational Therapy Discharge Recommendations are: Recommended discharge disposition: home with assist Post discharge occupational therapy recommendation: home health, pt is motivated participa nt Equipment Recommendations: 2 wheeled walker (FWW), casserole preparer, sock aide, tub bench Planned Interventions:ADL retraining, strengthening, transfer training, bed mobility traini ng, IADL retraining, balance training, prosthetic fitting/training, ROM (Range of Motion) (e jeanine mgmt as indicated) Recommended Frequency: (6-7x/week) Patient Status/Goals: Reflects last filed data and may be from multiple contributors. ADLs Pt requesting to shower this AM. No physical assist - only set up required. UB Dressing, Level of [place]: set up required Assistive Device: none UB Dressing Assess/Train, Position: sitting UB Dressing Assess/Train, Impairments: strength decreased, impaired balance Able to perform pericare c CGA. Toileting, Level of [place]: contact guard assist Assistive Device: grab bar, raised toilet seat Toileting Assess/Train, Position: sitting, supported standing Toileting Assess/Train, Impairments: decreased flexibility, ROM decreased, strength decreas ed, impaired balance Functional Endurance Decreased this am following standing to groom at sink. Cognitive Mood/Behavior: calm, cooperative Orientation: oriented x 4 Arousal Level: opens eyes spontaneously Speech: logical, spontaneous, clear Follows Commands/Answers Questions: 100% of the time Transfers Pt required CGA for transfers. D/t fatigue following grooming at sink, pt requested to sanders sfer back to . Pt instructed in safe transfer techniques, however, d/t fatigue and pt repo rt of pillow on seat of wc, pt missed seat and was guided to floor. Pt required alok lift t o dependently transfer back to bed, reported no pain. Bed-Chair, Level of [place]: stand by assist, verbal cues required Chair-Bed, Level of [place]: stand by assist, verbal cues required Bdn-Dfxyv-Btq, Assistive Device: 2 wheeled walker (FWW) Sit-Stand, Level of [place]: stand by assist, verbal cues required Stand-Sit, Level of [place]: stand by assist, verbal cues required Rua-Fqoku-Zyu, Assistive Device: 2 wheeled walker (FWW) Toilet, Level of [place]: contact guard assist, verbal cues required Toilet, Assistive Device: seat riser Safety Issues: weight-shifting ability decreased Impairments: decreased flexibility, ROM decreased, strength decreased, impaired balance ROM L UE ROM: WFL R UE ROM: WFL- 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 Strength L UE Strength: 4+/5 R UE Strength: 4+/5 OT Goal Review Date Flowsheet Row Most Recent Value STG Review Date 01/08/17 at 01/08/2017 0935 LTG Review Date 01/25/17 at 01/08/2017 0935 Grooming Goal Flowsheet Row Most Recent Value STG Status continued at 01/09/2017 0952 STG [place] Level stand by assist at 01/04/2017 1455 STG Position sitting in chair [at sink] at 01/04/2017 1455 STG Adaptive Equipment none at 01/04/2017 1455 LTG Status continued at 01/09/2017 0952 LTG [place] modified independent at 01/08/2017 0935 LTG Position -- [sitting at sink] at 01/04/2017 1455 Bathing Goal Flowsheet Row Most Recent Value STG Status continued at 01/09/2017 0952 STG [place] Level contact guard assist at 01/08/2017 0935 STG Adaptive Equpiment shower chair, tub bench at 01/08/2017 0935 LTG Status continued at 01/09/2017 0952 LTG [place] Level stand by assist at 01/08/2017 0935 UB Dressing Goal Flowsheet Row Most Recent Value STG Status continued at 01/09/2017 0952 STG [place] Level stand by assist at 01/01/2017 1338 LTG Status continued at 01/09/2017 0952 LTG [place] Level set up required at 01/01/2017 1338 LB Dressing Goal Flowsheet Row Most Recent Value STG Status continued at 01/09/2017 0952 STG [place] Level contact guard assist at 01/08/2017 0935 STG Adaptive Equipment casserole preparer, sock-aid at 01/08/2017 0935 LTG Status continued at 01/09/2017 0952 LTG [place] Level set up required at 01/08/2017 0935 Toileting Goal Flowsheet Row Most Recent Value STG Status met at 01/09/2017 0952 STG [place] Level minimum assist (75% patient effort) at 01/01/2017 1338 LTG Status continued at 01/09/2017 0952 LTG [place] Level stand by assist at 01/08/2017 0935 Toilet Transfer Goal Flowsheet Row Most Recent Value STG Status met at 01/09/2017 0952 STG [place] Level minimum assist (75% patient effort) at 01/01/2017 1338 LTG Status continued at 01/09/2017 0952 LTG [place] Level supervised at 01/08/2017 0935 Tub/Shower Transfer Goal Flowsheet Row Most Recent Value Tub/Shower Type tub/shower combo at 01/08/2017 0935 STG Status continued at 01/09/2017 0952 STG [place] minimum assist (75% patient effort) at 01/03/2017 1909 STG Assistive Device tub bench at 01/03/2017 1909 LTG Status continued at 01/09/2017 0952 LTG [place] modified independent at 01/08/2017 0935 LTG Assistive Device tub bench at 01/08/2017 0935 Electronically signed by: Cira Hurst OT, 01/09/2017 9:54 reatment Plan - Sabra Carrasquillo, RN - 01/09/2017 9:20 AM PDTPt working with OT session and had a controlled fall . Pt and therapist stated that he was ready to sit down to WC but missed WC. Pt landed on fl oor, no c/o pain except some minimal discomfort to coccyx. Transferred from floor to bed w h oyer lift w OT/OT/nursing assistance. No breakdowns to coccyx noted. BP 98/58, pulse 80. A&O x4. Dr. Hernandez in to see pt and evaluated situation. Will continue monitoring. Pt resting i n bed and no c/o discomfort. lan of Care - Prema Michael RN - 01/09/2017 4:55 AM PDTProblem: Patient Care Overv iew (Adult) Goal: Care Team Goals & Evaluation PROBLEM-RELATED GOALS: 3. Dora will call out appropriately for assistance and have no falls during hospitalizati on through 01/18/17 4. Dora's pain will be controlled to allow for activity and rest through 01/18/17 5. Dora will eat 75-100% most meals and accept health shakes through 01/18/17 6. Dora will have a bm qod while in rehab through 01/18/17 7. Dora will void w/o difficulties after catheter removal by 01/18/17 8. Dora's skin tears and abrasions will heal w/o s/sx infection 9. Dora will transfer with 1 person A by 01/18/17 10. Geovany will be SBA- setup for his ADLs & functional mobility by 01/25/17. STRATEGY TO ACHIEVE GOALS: -monitor for s/sx pain and medicate prn -monitor for s/sx infection, clean wounds prn and perform dressing changes prn -monitor bm's and medicate prn -encourage po intake and ensure pt is drinking health shakes -monitor voids and perform bladder scans -encourage independence with ambulation and ensure safe transfers - Active participation in OT sessions RESTRAINT-RELATED GOALS: STRATEGIES TO ACHIEVE RESTRAINT GOALS: Outcome: Improving Goal Evaluation: Geovany has been alert and oriented during the night. He reports that he slept ok during the n ight except when he attempted to void, which took time and caused discomfort because of the retention. His velarde catheter was removed per order at 2130 and he was only able to void 50 mls on his own, so st cath was performed and tolerated well. No changes to CMS, incisions or skin has been noted since initial shift assessment. Pt reported pain was minimal and denied need for pain medication. Pt was up x 1 to use the urinal while standing, and he required a ssistance getting both legs back in bed. LBM was reported 01/08. Offered to reposition pt and pt declined saying that he moves himself enough in bed. Pt also declined to have the foam d ressing on his buttocks and reports it bunches up causing more harm than good. lan of Care - Cira Jacob, OT - 01/08/2017 6:28 PM PDT Problem: Patient Care Overview (Adult) Goal: Care Team Goals & Evaluation PROBLEM-RELATED GOALS: 3. Dora will call out appropriately for assistance and have no falls during hospitalizati on through 01/18/17 4. Dora's pain will be controlled to allow for activity and rest through 01/18/17 5. Dora will eat 75-100% most meals and accept health shakes through 01/18/17 6. Dora will have a bm qod while in rehab through 01/18/17 7. Dora will void w/o difficulties after catheter removal by 01/18/17 8. Dora's skin tears and abrasions will heal w/o s/sx infection 9. Dora will transfer with 1 person A by 01/10/17 10. Geovany will be SBA- setup for his ADLs & functional mobility by 01/25/17. STRATEGY TO ACHIEVE GOALS: -monitor for s/sx pain and medicate prn -monitor for s/sx infection, clean wounds prn and perform dressing changes prn -monitor bm's and medicate prn -encourage po intake and ensure pt is drinking health shakes -monitor voids and perform bladder scans -encourage independence with ambulation and ensure safe transfers - Active participation in OT sessions RESTRAINT-RELATED GOALS: STRATEGIES TO ACHIEVE RESTRAINT GOALS: Outcome: Improving IRF Occupational Therapy Plan of Care Treatment Note Summary: Pt encountered supine in bed, agreeable to therapy. Reported "I'm really feeling good". Pt SBA to transfer to EOB and to standing. Pt benefitted from education on kitchen mo bility and safety, was SBA to retrive glass of water and use counter to transport it. Pt com pleted UB excercises 4 sets x 10 reps, demonstrating increasing UB strength. Pt will benefit from skilled OT services to increase ADL independence and activity tolerance. Occupational Therapy Discharge Recommendations are: Recommended discharge disposition: home with assist Post discharge occupational therapy recommendation: pt is motivated participant, home heal th Equipment Recommendations: 2 wheeled walker (FWW), casserole preparer, sock aide, tub bench Planned Interventions:ADL retraining, strengthening, transfer training, bed mobility traini ng, IADL retraining, balance training, prosthetic fitting/training, ROM (Range of Motion) (e jeanine mgmt as indicated) Recommended Frequency: (6-7x/week) Patient Status/Goals: Reflects last filed data and may be from multiple contributors. Therapeutic Exercise Shoulder exercises: bilateral, flexion, extension, ABDuction, ADDuction, internal rotation, external rotation Type of exercise: resistive Repetitions/ Resistance: 10 reps each, 3 sets with 3 lb weights Elbow exercises: bilateral, flexion, extension, pronation, supination Type of exercise: resistive Repetitions/ Resistance: 10 reps of 3 sets, 3 lb weights Wrist exercises: bilateral, flexion, extension Cognitive Mood/Behavior: cooperative, calm, behavior appropriate to situation Orientation: oriented x 4 Speech: logical, spontaneous, clear Follows Commands/Answers Questions: 100% of the time Bed Mobility SBA, utilized bedrail, HOB lowered. Assistive Device: bed rails Roll Left, Level of [place]: stand by assist Scoot/Bridge, Level of [place]: moderate assist (50% patient effort) Supine to Sit, Level of [place]: modified independent Sit to Supine, Level of [place]: modified independent Safety Issues: decreased use of legs for bridging/pushing Impairments: decreased flexibility, ROM decreased, strength decreased Transfers Cues for hand placement during sit to stand transfers, pt does well with R hand on FWW and other hand on bed rail. 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 Strength L UE Strength: 4+/5 R UE Strength: 4+/5 OT Goal Review Date Flowsheet Row Most Recent Value STG Review Date 01/08/17 at 01/08/2017 0935 LTG Review Date 01/25/17 at 01/08/2017 0935 Grooming Goal Flowsheet Row Most Recent Value STG Status met at 01/08/2017 1825 STG [place] stand by assist at 01/04/2017 1455 STG Position sitting in chair [at sink] at 01/04/2017 1455 STG Adaptive Equipment none at 01/04/2017 1455 LTG Status continued at 01/08/2017 1825 LTG [place] modified independent at 01/08/2017 0935 LTG Position -- [sitting at sink] at 01/04/2017 1455 Bathing Goal Flowsheet Row Most Recent Value STG Status continued at 01/08/2017 1825 STG [place] contact guard assist at 01/08/2017 0935 STG Adaptive Equpiment shower chair, tub bench at 01/08/2017 0935 LTG Status continued at 01/08/2017 1825 LTG [place] stand by assist at 01/08/2017 0935 UB Dressing Goal Flowsheet Row Most Recent Value STG Status continued at 01/08/2017 1825 STG [place] stand by assist at 01/01/2017 1338 LTG Status continued at 01/08/2017 1825 LTG [place] set up required at 01/01/2017 1338 LB Dressing Goal Flowsheet Row Most Recent Value STG Status continued at 01/08/2017 1825 STG [place] contact guard assist at 01/08/2017 0935 STG Adaptive Equipment casserole preparer, sock-aid at 01/08/2017 0935 LTG Status continued at 01/08/2017 1825 LTG [place] set up required at 01/08/2017 0935 Toileting Goal Flowsheet Row Most Recent Value STG Status continued at 01/08/2017 1825 STG [place] minimum assist (75% patient effort) at 01/01/2017 1338 LTG Status continued at 01/08/2017 1825 LTG [place] stand by assist at 01/08/2017 0935 Toilet Transfer Goal Flowsheet Row Most Recent Value STG Status continued at 01/08/2017 1825 STG [place] minimum assist (75% patient effort) at 01/01/2017 1338 LTG Status continued at 01/08/2017 1825 LTG [place] supervised at 01/08/2017 0935 Tub/Shower Transfer Goal Flowsheet Row Most Recent Value Tub/Shower Type tub/shower combo at 01/08/2017 0935 STG Status continued at 01/08/2017 1825 STG [place] minimum assist (75% patient effort) at 01/03/2017 1909 STG Assistive Device tub bench at 01/03/2017 1909 LTG Status continued at 01/08/2017 1825 LTG [place] modified independent at 01/08/2017 0935 LTG Assistive Device tub bench at 01/08/2017 0935 Electronically signed by: Cira Hurst OT, 01/08/2017 18:27 lan of Care - Carine Whitten RN - 01/08/2017 6:21 PM PDTProblem: Patient Care Overview (Adult) Goal: Care Team Goals & Evaluation PROBLEM-RELATED GOALS: 3. Dora will call out appropriately for assistance and have no falls during hospitalizati on through 01/18/17 4. Dora's pain will be controlled to allow for activity and rest through 01/18/17 5. Dora will eat 75-100% most meals and accept health shakes through 01/18/17 6. Dora will have a bm qod while in rehab through 01/18/17 7. Dora will void w/o difficulties after catheter removal by 01/18/17 8. Dora's skin tears and abrasions will heal w/o s/sx infection 9. Dora will transfer with 1 person A by 01/10/17 10. Geovany will be SBA- setup for his ADLs & functional mobility by 01/25/17. STRATEGY TO ACHIEVE GOALS: -monitor for s/sx pain and medicate prn -monitor for s/sx infection, clean wounds prn and perform dressing changes prn -monitor bm's and medicate prn -encourage po intake and ensure pt is drinking health shakes -monitor voids and perform bladder scans -encourage independence with ambulation and ensure safe transfers - Active participation in OT sessions RESTRAINT-RELATED GOALS: STRATEGIES TO ACHIEVE RESTRAINT GOALS: Outcome: Improving Goal Evaluation: alert and pleasant one person assist with fww good pain control with routine ultam and one prn oxycodone cms intact incisions healing well and open to air drsg to skin tears intact f /c dc'd today per md order will monitor pvr's having bm's lan of Care - Domenica Griffith, PT - 01/08/2017 2:35 PM PDTFormatting of this note might be different from the orig inal. Problem: Patient Care Overview (Adult) Goal: Care Team Goals & Evaluation PROBLEM-RELATED GOALS: 3. Dora will call out appropriately for assistance and have no falls during hospitalizati on through 01/18/17 4. Dora's pain will be controlled to allow for activity and rest through 01/18/17 5. Dora will eat 75-100% most meals and accept health shakes through 01/18/17 6. Dora will have a bm qod while in rehab through 01/18/17 7. Dora will void w/o difficulties after catheter removal by 01/18/17 8. Dora's skin tears and abrasions will heal w/o s/sx infection 9. Dora will transfer with 1 person A by 01/10/17 10. Geovany will be SBA- setup for his ADLs & functional mobility by 01/25/17. STRATEGY TO ACHIEVE GOALS: -monitor for s/sx pain and medicate prn -monitor for s/sx infection, clean wounds prn and perform dressing changes prn -monitor bm's and medicate prn -encourage po intake and ensure pt is drinking health shakes -monitor voids and perform bladder scans -encourage independence with ambulation and ensure safe transfers - Active participation in OT sessions RESTRAINT-RELATED GOALS: STRATEGIES TO ACHIEVE RESTRAINT GOALS: Outcome: Improving Physical Therapy Plan of Care Treatment Note Summary: Pt kenneth pm PT session well. Pt reported nursing felt pt's bp was a bit low but he indicated he often has lower than average bp and he currently is asymptomatic. Pt demonstrat ed progress toward functional independence as evidenced by increasing independence w/ bed mo b as pt is now able to roll onto either side w/o need for physical assist. BLE strength also continues to improve slowly but steadily. This will allow for greater range of self mobilit y in bed and help to prevent further skin breakdown. Refer below for details of functional l lillian. Pt will benefit from continued PT interventions to promote increased independence w/ functional activities necessary for safe home discharge. Physical Therapy Discharge Recommendations are: Recommended discharge disposition: home with assist Post discharge physical therapy recommendation: home health, outpatient therapy, pt is mot ivated participant Equipment Recommendations: 2 wheeled walker (FWW) Planned Interventions: balance training, bed mobility training, gait training, home exerci se program, patient/family education, orthotic fitting/training, transfer training, wheelcha ir management/propulsion training, ROM (Range of Motion), stair training, strengthening Recommended Frequency: (1-2x/day) Patient Status/Goals: Reflects last filed data and may be from multiple contributors. Bed Mobility Pt able to complete full roll to both sides, using rail, no physical assist Assistive Device: bed rails Roll Left, Level of [place]: modified independent Roll Right, Level of [place]: modified independent Scoot/Bridge, Level of [place]: independent Supine to Sit, Level of [place]: modified independent Sit to Supine, Level of [place]: modified independent Safety Issues: decreased use of legs for bridging/pushing Impairments: decreased flexibility, ROM decreased, strength decreased Therapeutic Exercise STM w/ MLM to Bilat thighs w/ emphasis on fibrotic scar tissue proximal lateral thighs Bed exercises: bilateral, ankle pumps, quad sets, glut sets, hip abduction/adduction, heel slides, short arc quads, bridging Repetitions: 2x12 ROM BLEs unable to move actively through full range, pt reports pain in knees prevents movement at this time L LE ROM: AAROM,hip 0-60, knee 0-80,pt observed to be sitting w/ hips close to 90, pt does have posterior pelvic tilt in sitting to avoid full 90 at hips R LE ROM: AAROM, hip 0-80, knee 0-90, pt observed to be sitting w/ hips close to 90, pt mcdonald s have posterior pelvic tilt in sitting to avoid full 90 at hips Strength L LE Strength: IP 2/5, quad 3-/5, HS 3+/5,DF/PF 5/5 R LE Strength: IP 3-/5, quad 3+/5, HS 4-/5, DF/PF 5/5 PT Goal Review Date Flowsheet Row Most Recent Value STG Review Date 01/08/17 at 01/01/2017 1115 LTG Review Date 01/22/17 at 01/01/2017 1115 All Bed Mobility Goal Flowsheet Row Most Recent Value STG Status discontinued at 01/04/2017 1200 STG [place] -- [.] at 01/04/2017 1200 LTG Status -- [.] at 01/04/2017 1200 LTG [place] -- [.] at 01/04/2017 1200 Roll Left/Right Goal Flowsheet Row Most Recent Value STG Status new, met at 01/08/2017 1435 STG [place] modified independent at 01/08/2017 1435 STG Assistive Device none at 01/08/2017 1435 LTG Status new, progressing at 01/08/2017 1435 LTG [place] independent at 01/08/2017 1435 Scoot/Bridge Goal Flowsheet Row Most Recent Value STG Status met at 01/04/2017 1200 STG [place] contact guard assist at 01/01/2017 1115 LTG Status met at 01/08/2017 1435 LTG [place] independent at 01/07/2017 1345 Haaabf-Own-Lxrrjr Goal Flowsheet Row Most Recent Value STG Status met at 01/06/2017 1200 STG [place] contact guard assist at 01/01/2017 1115 STG Assistive Device bed rails at 01/01/2017 1115 LTG Status met, revised at 01/08/2017 1100 LTG [place] independent at 01/08/2017 1100 LTG Assistive Device bed rails at 01/01/2017 1115 Objefpvob-Rsa-Ayutdrfmf Goal Flowsheet Row Most Recent Value STG Status discontinued at 01/04/2017 1200 STG [place] -- [.] at 01/04/2017 1200 STG Assistive Device -- [.] at 01/04/2017 1200 LTG Status -- [.] at 01/04/2017 1200 LTG [place] -- [.] at 01/04/2017 1200 All Transfers Goal Flowsheet Row Most Recent Value STG Status met at 01/04/2017 1200 STG [place] contact guard assist at 01/01/2017 1115 STG Comments Using Sanam Travis at 01/01/2017 1115 LTG Status progressing at 01/08/2017 1100 LTG [place] modified independent at 01/01/2017 1115 LTG Assistive Device 2 wheeled walker (FWW) at 01/01/2017 1115 Gait Goal Flowsheet Row Most Recent Value STG Status met at 01/05/2017 1200 STG [place] minimum assist (75% patient effort) at 01/01/2017 1115 STG Assistive Device 2 wheeled walker (FWW) at 01/01/2017 1115 STG Distance (feet) 15 at 01/01/2017 1115 LTG Status progressing at 01/08/2017 1100 LTG [place] modified independent at 01/01/2017 1115 LTG Assistive Device 2 wheeled walker (FWW) at 01/01/2017 1115 LTG Distance (feet) 50 at 01/01/2017 1115 Stair Goal Flowsheet Row Most Recent Value STG Status not addressed at 01/08/2017 1100 STG [place] minimum assist (75% patient effort) at 01/01/2017 1115 STG Assistive Device 2 rails at 01/01/2017 1115 STG Number of Stairs 8 at 01/01/2017 1115 LTG Status continued at 01/03/2017 1200 LTG [place] modified independent at 01/01/2017 1115 LTG Assistive Device 2 rails at 01/01/2017 1115 LTG Number of Stairs 8 at 01/01/2017 1115 Wheelchair Goal Flowsheet Row Most Recent Value STG Status discontinued at 01/05/2017 1200 STG -- [.] at 01/05/2017 1200 LTG Status -- [.] at 01/05/2017 1200 Additional Goal #1 PT Flowsheet Row Most Recent Value STG Status met at 01/03/2017 1200 STG Pt will tolerate standing at Sanam Stedy x 1min w/ supervision only at 01/01/2017 1115 LTG Status met at 01/04/2017 1450 LTG pt kenneth standing with fww for 3 minutes supervised at 01/01/2017 1115 Electronically signed by: Domenica Griffith, PT, 01/08/2017 16:10 lan of Care - Domenica Lebron, PT - 01/08/2017 11:00 AM PDTFormatting of this note might be different from the o riginal. Problem: Patient Care Overview (Adult) Goal: Care Team Goals & Evaluation PROBLEM-RELATED GOALS: 3. Dora will call out appropriately for assistance and have no falls during hospitalizati on through 01/18/17 4. Leighanns pain will be controlled to allow for activity and rest through 01/18/17 5. Dora will eat 75-100% most meals and accept health shakes through 01/18/17 6. Dora will have a bm qod while in rehab through 01/18/17 7. Dora will void w/o difficulties after catheter removal by 01/18/17 8. Dora's skin tears and abrasions will heal w/o s/sx infection 9. Dora will transfer with 1 person A by 01/10/17 10. Geovany will be SBA- setup for his ADLs & functional mobility by 01/25/17. STRATEGY TO ACHIEVE GOALS: -monitor for s/sx pain and medicate prn -monitor for s/sx infection, clean wounds prn and perform dressing changes prn -monitor bm's and medicate prn -encourage po intake and ensure pt is drinking health shakes -monitor voids and perform bladder scans -encourage independence with ambulation and ensure safe transfers - Active participation in OT sessions RESTRAINT-RELATED GOALS: STRATEGIES TO ACHIEVE RESTRAINT GOALS: Outcome: Improving Physical Therapy Plan of Care Treatment Note Summary: Pt kenneth am PT session well w/ continued progress toward gait tolerance as evidence d by increasing distance w/ each session and total distance overall. He continues w/ strengt h and ROM deficits, postural instability, balance impairments and diminished functional acti vity tolerance. Refer below for details of functional levels. Pain doesn't appear to be a pr oblem at this point however he still needs to be encouraged to take pain meds in order to pr event pain from increasing and inhibiting his ability to mobilize. Pt will benefit from cont inued PT interventions to promote increased independence w/ functional activities necessary for safe home discharge. Physical Therapy Discharge Recommendations are: Recommended discharge disposition: home with assist Post discharge physical therapy recommendation: home health, outpatient therapy, pt is mot ivated participant Equipment Recommendations: 2 wheeled walker (FWW) Planned Interventions: balance training, bed mobility training, gait training, home exerci se program, patient/family education, orthotic fitting/training, transfer training, wheelcha ir management/propulsion training, ROM (Range of Motion), stair training, strengthening Recommended Frequency: (1-2x/day) Patient Status/Goals: Reflects last filed data and may be from multiple contributors. Gait close SBA d/t high fall risk and observed instability, able to complete w/c follow w/o need for 2nd person Level of [place]: stand by assist Assistive Device: 2 wheeled walker (FWW) Distance (feet): 35 x 5 + 50 Transfers cuing for proper sequencing, pt able to demonstrate proper 3 step sequence for standing ind ependently approx 25% Bed-Chair, Level of [place]: stand by assist, verbal cues required Chair-Bed, Level of [place]: stand by assist, verbal cues required Dvi-Uewan-Npx, Assistive Device: 2 wheeled walker (FWW) Sit-Stand, Level of [place]: stand by assist, verbal cues required Stand-Sit, Level of [place]: stand by assist, verbal cues required [id number], Assistive Device: 2 wheeled walker (FWW) Maintain Weight Bearing Status: (WBAT) Safety Issues: weight-shifting ability decreased Impairments: decreased flexibility, ROM decreased, strength decreased, impaired balance Functional Endurance Improving w/ pt able to mobilize 35' w/ FWW x 5 and 1 session of 50' w/ only mild SOB ROM BLEs unable to move actively through full range, pt reports pain in knees prevents movement at this time L LE ROM: AAROM,hip 0-60, knee 0-80,pt observed to be sitting w/ hips close to 90, pt does have posterior pelvic tilt in sitting to avoid full 90 at hips R LE ROM: AAROM, hip 0-80, knee 0-90, pt observed to be sitting w/ hips close to 90, pt mcdonald s have posterior pelvic tilt in sitting to avoid full 90 at hips Strength L LE Strength: IP 2/5, quad 3-/5, HS 3+/5,DF/PF 5/5 R LE Strength: IP 3-/5, quad 3+/5, HS 4-/5, DF/PF 5/5 PT Goal Review Date Flowsheet Row Most Recent Value STG Review Date 01/08/17 at 01/01/2017 1115 LTG Review Date 01/22/17 at 01/01/2017 1115 All Bed Mobility Goal Flowsheet Row Most Recent Value STG Status discontinued at 01/04/2017 1200 STG [place] -- [.] at 01/04/2017 1200 LTG Status -- [.] at 01/04/2017 1200 LTG [place] -- [.] at 01/04/2017 1200 Roll Left/Right Goal Flowsheet Row Most Recent Value STG Status discontinued at 01/04/2017 1450 STG [place] -- [.] at 01/04/2017 1450 LTG Status -- [.] at 01/04/2017 1450 LTG [place] -- [.] at 01/04/2017 1450 Scoot/Bridge Goal Flowsheet Row Most Recent Value STG Status met at 01/04/2017 1200 STG [place] contact guard assist at 01/01/2017 1115 LTG Status progressing at 01/08/2017 1100 LTG [place] independent at 01/07/2017 1345 Gcxsbw-Fgf-Rkdwdv Goal Flowsheet Row Most Recent Value STG Status met at 01/06/2017 1200 STG [place] contact guard assist at 01/01/2017 1115 STG Assistive Device bed rails at 01/01/2017 1115 LTG Status met, revised at 01/08/2017 1100 LTG [place] independent at 01/08/2017 1100 LTG Assistive Device bed rails at 01/01/2017 1115 Wofvnraen-Bpn-Vedqrenxm Goal Flowsheet Row Most Recent Value STG Status discontinued at 01/04/2017 1200 STG [place] -- [.] at 01/04/2017 1200 STG Assistive Device -- [.] at 01/04/2017 1200 LTG Status -- [.] at 01/04/2017 1200 LTG [place] -- [.] at 01/04/2017 1200 All Transfers Goal Flowsheet Row Most Recent Value STG Status met at 01/04/2017 1200 STG [place] contact guard assist at 01/01/2017 1115 STG Comments Using Sanam Travis at 01/01/2017 1115 LTG Status progressing at 01/08/2017 1100 LTG [place] modified independent at 01/01/2017 1115 LTG Assistive Device 2 wheeled walker (FWW) at 01/01/2017 1115 Gait Goal Flowsheet Row Most Recent Value STG Status met at 01/05/2017 1200 STG [place] Level minimum assist (75% patient effort) at 01/01/2017 1115 STG Assistive Device 2 wheeled walker (FWW) at 01/01/2017 1115 STG Distance (feet) 15 at 01/01/2017 1115 LTG Status progressing at 01/08/2017 1100 LTG [place] Level modified independent at 01/01/2017 1115 LTG Assistive Device 2 wheeled walker (FWW) at 01/01/2017 1115 LTG Distance (feet) 50 at 01/01/2017 1115 Stair Goal Flowsheet Row Most Recent Value STG Status not addressed at 01/08/2017 1100 STG [place] Level minimum assist (75% patient effort) at 01/01/2017 1115 STG Assistive Device 2 rails at 01/01/2017 1115 STG Number of Stairs 8 at 01/01/2017 1115 LTG Status continued at 01/03/2017 1200 LTG [place] Level modified independent at 01/01/2017 1115 LTG Assistive Device 2 rails at 01/01/2017 1115 LTG Number of Stairs 8 at 01/01/2017 1115 Wheelchair Goal Flowsheet Row Most Recent Value STG Status discontinued at 01/05/2017 1200 STG -- [.] at 01/05/2017 1200 LTG Status -- [.] at 01/05/2017 1200 Additional Goal #1 PT Flowsheet Row Most Recent Value STG Status met at 01/03/2017 1200 STG Pt will tolerate standing at Sanam Stedy x 1min w/ supervision only at 01/01/2017 1115 LTG Status met at 01/04/2017 1450 LTG pt kenneth standing with fww for 3 minutes supervised at 01/01/2017 1115 Electronically signed by: Domenica Griffith, PT, 01/08/2017 13:16 lan of Care - Yuliya Ross, OT - 01/08/2017 9:35 AM PDTFormatting of this note might be different from the o riginal. Problem: Patient Care Overview (Adult) Goal: Care Team Goals & Evaluation PROBLEM-RELATED GOALS: 3. Dora will call out appropriately for assistance and have no falls during hospitalizati on through 01/18/17 4. Dora's pain will be controlled to allow for activity and rest through 01/18/17 5. Dora will eat 75-100% most meals and accept health shakes through 01/18/17 6. Dora will have a bm qod while in rehab through 01/18/17 7. Dora will void w/o difficulties after catheter removal by 01/18/17 8. Dora's skin tears and abrasions will heal w/o s/sx infection 9. Dora will transfer with 1 person A by 01/10/17 10. Geovany will be SBA- setup for his ADLs & functional mobility by 01/25/17. STRATEGY TO ACHIEVE GOALS: -monitor for s/sx pain and medicate prn -monitor for s/sx infection, clean wounds prn and perform dressing changes prn -monitor bm's and medicate prn -encourage po intake and ensure pt is drinking health shakes -monitor voids and perform bladder scans -encourage independence with ambulation and ensure safe transfers - Active participation in OT sessions RESTRAINT-RELATED GOALS: STRATEGIES TO ACHIEVE RESTRAINT GOALS: IRF Occupational Therapy Plan of Care Treatment Note Summary: Dora has been participating in occupational therapy for treatment of activity t olerance, strengthening, ADL training after fall resulting in BLE fractures. Patient demons trates objective improvements with ADLs especially LB dressing and use of AE as well as tech niques hand placement sit to stand. Dora continues to have functional impairments with fx l tolerance and mobility during bathroom ADLs and transfers. Dora will benefit from skill ed OT to address impairments and to improve independence and safety. Remaining barriers to discharge include see above. Emphasis of session on BUE strengthening, dressing ADLs. refer below for specific details regarding mobility. Occupational Therapy Discharge Recommendations are: Recommended discharge disposition: home with assist Post discharge occupational therapy recommendation: pt is motivated participant, home heal th Equipment Recommendations: 2 wheeled walker (FWW), casserole preparer, sock aide, tub bench Planned Interventions:ADL retraining, strengthening, transfer training, bed mobility traini ng, IADL retraining, balance training, prosthetic fitting/training, ROM (Range of Motion) (e jeanine mgmt as indicated) Recommended Frequency: (6-7x/week) Patient Status/Goals: Reflects last filed data and may be from multiple contributors. ADLs No physical assist - only set up required. UB Dressing, Level of [place]: set up required Assistive Device: none UB Dressing Assess/Train, Position: sitting UB Dressing Assess/Train, Impairments: strength decreased, impaired balance Tactile cues to thread catheter through clothing and reminder cues for sock aide - Pt was a ble to complete LB dressing without further physical assist, however. LB Dressing, Level of [place]: contact guard assist, tactile cues required, verbal cue s required Assistive Device: casserole preparer, sock-aid LB Dressing Assess/Train, Position: sitting, supported standing LB Dressing Assess/Train, Impairments: strength decreased, impaired balance, pain Therapeutic Exercise Shoulder exercises: bilateral, flexion, extension, ABDuction, ADDuction, internal rotation, external rotation Type of exercise: resistive Repetitions/ Resistance: 10 reps each, 2 sets with 3-5 lb weights Elbow exercises: bilateral, flexion, extension, pronation, supination Type of exercise: resistive Repetitions/ Resistance: 10 reps of 2 sets, 3-5 lb weights Bed Mobility Pt performing bed mobility well - no assist needed, just extra time for decreased LB streng th. Assistive Device: HOB elevated, bed rails Supine to Sit, Level of [place]: modified independent Sit to Supine, Level of [place]: modified independent Safety Issues: decreased use of legs for bridging/pushing Impairments: decreased flexibility, ROM decreased, strength decreased Transfers Cues for hand placement during sit to stand transfers, pt does well with R hand on FWW and other hand on bed rail. Bed-Chair, Level of [place]: stand by assist, verbal cues required [id number], Assistive Device: 2 wheeled walker (FWW), wheelchair Sit-Stand, Level of [place]: stand by assist, verbal cues required Stand-Sit, Level of [place]: stand by assist, verbal cues required [id number], Assistive Device: 2 wheeled walker (FWW) Safety Issues: weight-shifting ability decreased Impairments: decreased flexibility, ROM decreased, strength decreased, impaired balance OT Goal Review Date Flowsheet Row Most Recent Value STG Review Date 01/08/17 at 01/08/2017 0935 LTG Review Date 01/25/17 at 01/08/2017 0935 Grooming Goal Flowsheet Row Most Recent Value STG Status met at 01/07/2017 1045 STG [place] Level stand by assist at 01/04/2017 1455 STG Position sitting in chair [at sink] at 01/04/2017 1455 STG Adaptive Equipment none at 01/04/2017 1455 LTG Status continued, not addressed at 01/08/2017 0935 LTG [place] modified independent at 01/08/2017 0935 LTG Position -- [sitting at sink] at 01/04/2017 1455 Bathing Goal Flowsheet Row Most Recent Value STG Status continued, not addressed at 01/08/2017 0935 STG [place] Level contact guard assist at 01/08/2017 0935 STG Adaptive Equpiment shower chair, tub bench at 01/08/2017 0935 LTG Status continued, not addressed at 01/08/2017 0935 LTG [place] stand by assist at 01/08/2017 0935 UB Dressing Goal Flowsheet Row Most Recent Value STG Status met at 01/06/2017 1030 STG [place] Level stand by assist at 01/01/2017 1338 LTG Status met at 01/06/2017 1030 LTG [place] Level set up required at 01/01/2017 1338 LB Dressing Goal Flowsheet Row Most Recent Value STG Status continued, progressing at 01/08/2017 0935 STG [place] Level contact guard assist at 01/08/2017 0935 STG Adaptive Equipment casserole preparer, sock-aid at 01/08/2017 0935 LTG Status continued, progressing at 01/08/2017 0935 LTG [place] Level set up required at 01/08/2017 0935 Toileting Goal Flowsheet Row Most Recent Value STG Status met at 01/06/2017 1030 STG [place] Level minimum assist (75% patient effort) at 01/01/2017 1338 LTG Status progressing, not addressed at 01/08/2017 0935 LTG [place] stand by assist at 01/08/2017 0935 Toilet Transfer Goal Flowsheet Row Most Recent Value STG Status met at 01/04/2017 1837 STG [place] Level minimum assist (75% patient effort) at 01/01/2017 1338 LTG Status continued, not addressed at 01/08/2017 0935 LTG [place] Level supervised at 01/08/2017 0935 Tub/Shower Transfer Goal Flowsheet Row Most Recent Value Tub/Shower Type tub/shower combo at 01/08/2017 0935 STG Status met at 01/07/2017 1045 STG [place] Level minimum assist (75% patient effort) at 01/03/2017 1909 STG Assistive Device tub bench at 01/03/2017 1909 LTG Status revised at 01/08/2017 0935 LTG [place] Level modified independent at 01/08/2017 0935 LTG Assistive Device tub bench at 01/08/2017 0935 Electronically signed by: Yuliya Ross OT, 01/08/2017 13:18 lan of Care - Lashaun Stein RN - 01/08/2017 4:59 AM PDTProblem: Patient Care Overview (Adult) Goal: Care Team Goals & Evaluation PROBLEM-RELATED GOALS: 3. Dora will call out appropriately for assistance and have no falls during hospitalizati on through 01/18/17 4. Dora's pain will be controlled to allow for activity and rest through 01/18/17 5. Dora will eat 75-100% most meals and accept health shakes through 01/18/17 6. Dora will have a bm qod while in rehab through 01/18/17 7. Dora will void w/o difficulties after catheter removal by 01/18/17 8. Dora's skin tears and abrasions will heal w/o s/sx infection 9. Dora will transfer with 1 person A by 01/10/17 10. Geovany will be SBA- setup for his ADLs & functional mobility by 01/25/17. STRATEGY TO ACHIEVE GOALS: -monitor for s/sx pain and medicate prn -monitor for s/sx infection, clean wounds prn and perform dressing changes prn -monitor bm's and medicate prn -encourage po intake and ensure pt is drinking health shakes -monitor voids and perform bladder scans -encourage independence with ambulation and ensure safe transfers - Active participation in OT sessions RESTRAINT-RELATED GOALS: STRATEGIES TO ACHIEVE RESTRAINT GOALS: Outcome: Improving Goal Evaluation: pt slept well through noc. Denies pain. 1 pivot transfer to w/c. Continues with multiple s kin tears, abrasions and incisions in multiple stages of healing. CMS intact. Velarde in place . lan of Care - Braydon brooks, Yuliya Rojas, OT - 01/07/2017 4:13 PM PDTProblem: Patient Care Overview (Adult) Goal: Care Team Goals & Evaluation PROBLEM-RELATED GOALS: 3. Dora will call out appropriately for assistance and have no falls during hospitalizati on through 01/18/17 4. Dora's pain will be controlled to allow for activity and rest through 01/18/17 5. Dora will eat 75-100% most meals and accept health shakes through 01/18/17 6. Dora will have a bm qod while in rehab through 01/18/17 7. Dora will void w/o difficulties after catheter removal by 01/18/17 8. Dora's skin tears and abrasions will heal w/o s/sx infection 9. Dora will transfer with 1 person A by 01/10/17 10. Geovany will be SBA- setup for his ADLs & functional mobility by 01/25/17. STRATEGY TO ACHIEVE GOALS: -monitor for s/sx pain and medicate prn -monitor for s/sx infection, clean wounds prn and perform dressing changes prn -monitor bm's and medicate prn -encourage po intake and ensure pt is drinking health shakes -monitor voids and perform bladder scans -encourage independence with ambulation and ensure safe transfers - Active participation in OT sessions RESTRAINT-RELATED GOALS: STRATEGIES TO ACHIEVE RESTRAINT GOALS: IRF Occupational Therapy Plan of Care Treatment Note Summary: Pt seen today for OT session to address fxl transfers focusing on appropriate ledesma d placement and standing tolerance during activities. Pt was able to maintain standing neris nce for approx 5 minutes while completing activities an arm's legth away from him, including reaching up overhead in full shoulder extension and adduction to abduction with one arm usi ng other arm for stabilization (able to switch arms to perform on either side). Pt did not demonstrate instability during activities, needed one seated rest break between activities b ut overall stood for approx 10 minutes with rest break of 2 minutes. Pt displaying more inde pendence in transfers as well after cues for hand placement. Displays good carryover after cues. Will continue to follow for standing tolerance, UB therex, and kitchen mobility as we ll as continued ADLs. Occupational Therapy Discharge Recommendations are: Recommended discharge disposition: home with assist Post discharge occupational therapy recommendation: pt is motivated participant, home heal th Equipment Recommendations: 2 wheeled walker (FWW), casserole preparer, sock aide, tub bench Planned Interventions:ADL retraining, strengthening, transfer training, bed mobility traini ng, IADL retraining, balance training, prosthetic fitting/training, ROM (Range of Motion) (e jeanine mgmt as indicated) Recommended Frequency: (6-7x/week) Patient Status/Goals: Reflects last filed data and may be from multiple contributors. Bed Mobility Pt does better if he sits higher up in bed - he needs to sit farther up on EOB prior to ret urning to supine, otherwise fatigues with scooting. Assistive Device: HOB elevated, bed rails Scoot/Bridge, Level of [place]: moderate assist (50% patient effort) Supine to Sit, Level of [place]: modified independent Sit to Supine, Level of [place]: modified independent Safety Issues: decreased use of legs for bridging/pushing Impairments: decreased flexibility, ROM decreased, strength decreased Transfers Cues for hand placement during transfers from up to FWW. Able to maintain safety, frequ ently checks brakes. Sit-Stand, Level of [place]: stand by assist, verbal cues required Stand-Sit, Level of [place]: stand by assist, verbal cues required [id number], Assistive Device: 2 wheeled walker (FWW) Safety Issues: weight-shifting ability decreased Impairments: decreased flexibility, ROM decreased, strength decreased, impaired balance Electronically signed by: Yuliya Ross OT, 01/07/2017 18:05 lan of Care - Maria Dolores, Carine Moncada RN - 01/07/2017 3:47 PM PDTProblem: Patient Care Overview (Adult) Goal: Care Team Goals & Evaluation PROBLEM-RELATED GOALS: 3. Dora will call out appropriately for assistance and have no falls during hospitalizati on through 01/18/17 4. Leighanns pain will be controlled to allow for activity and rest through 01/18/17 5. Dora will eat 75-100% most meals and accept health shakes through 01/18/17 6. Dora will have a bm qod while in rehab through 01/18/17 7. Dora will void w/o difficulties after catheter removal by 01/18/17 8. Leighanns skin tears and abrasions will heal w/o s/sx infection 9. Dora will transfer with 1 person A by 01/10/17 10. Geovany will be SBA- setup for his ADLs & functional mobility by 01/25/17. STRATEGY TO ACHIEVE GOALS: -monitor for s/sx pain and medicate prn -monitor for s/sx infection, clean wounds prn and perform dressing changes prn -monitor bm's and medicate prn -encourage po intake and ensure pt is drinking health shakes -monitor voids and perform bladder scans -encourage independence with ambulation and ensure safe transfers - Active participation in OT sessions RESTRAINT-RELATED GOALS: STRATEGIES TO ACHIEVE RESTRAINT GOALS: Outcome: Improving Goal Evaluation: alert and pleasant one person with fww good pain control with routine ultam cms intact ski n tears drsg intact and healing well f/c cyu bm 17th cracked skin to right heal pacing lotio n bid and floating heels off pillows has been eating 50-100% of meals calls for assistance lan of Care - Nacho Domenica Winchester, PT - 01/07/2017 1:45 PM PDTFormatting of this note might be different from the orig inal. Problem: Patient Care Overview (Adult) Goal: Care Team Goals & Evaluation PROBLEM-RELATED GOALS: 3. Dora will call out appropriately for assistance and have no falls during hospitalizati on through 01/18/17 4. Dora's pain will be controlled to allow for activity and rest through 01/18/17 5. Dora will eat 75-100% most meals and accept health shakes through 01/18/17 6. Dora will have a bm qod while in rehab through 01/18/17 7. Dora will void w/o difficulties after catheter removal by 01/18/17 8. Leighanns skin tears and abrasions will heal w/o s/sx infection 9. Dora will transfer with 1 person A by 01/10/17 10. Geovany will be SBA- setup for his ADLs & functional mobility by 01/25/17. STRATEGY TO ACHIEVE GOALS: -monitor for s/sx pain and medicate prn -monitor for s/sx infection, clean wounds prn and perform dressing changes prn -monitor bm's and medicate prn -encourage po intake and ensure pt is drinking health shakes -monitor voids and perform bladder scans -encourage independence with ambulation and ensure safe transfers - Active participation in OT sessions RESTRAINT-RELATED GOALS: STRATEGIES TO ACHIEVE RESTRAINT GOALS: Outcome: Improving Physical Therapy Plan of Care Treatment Note Summary: Pt kenneth pm PT session well and continues to demonstrate progress toward increasing strength and independence. Refer below for details of functional levels. He continues to p resent w/ strength and ROM deficits, balance impairments, postural instability, diminished f unctional activity kenneth and pain, however his pain does appear to be better controlled over t he past 2 days w/ notable improvements in his functional mobility. Pt will benefit from cont inued PT interventions to promote increased independence w/ functional activities necessary for safe home discharge. Physical Therapy Discharge Recommendations are: Recommended discharge disposition: home with assist Post discharge physical therapy recommendation: home health, outpatient therapy, pt is mot ivated participant Equipment Recommendations: 2 wheeled walker (FWW) Planned Interventions: balance training, bed mobility training, gait training, home exerci se program, patient/family education, orthotic fitting/training, transfer training, wheelcha ir management/propulsion training, ROM (Range of Motion), stair training, strengthening Recommended Frequency: (1-2x/day) Patient Status/Goals: Reflects last filed data and may be from multiple contributors. Transfers continues w/ need for cuing for sequencing including cues to bring feet back toward chair b efore reaching out for FWW as his knees are not flexible enough to get feet back far enough prior to standing. Bed-Chair, Level of [place]: stand by assist, verbal cues required Chair-Bed, Level of [place]: stand by assist, verbal cues required [id number], Assistive Device: 2 wheeled walker (FWW) Sit-Stand, Level of [place]: stand by assist, verbal cues required Stand-Sit, Level of [place]: stand by assist, verbal cues required [id number], Assistive Device: 2 wheeled walker (FWW) Maintain Weight Bearing Status: (WBAT) Safety Issues: weight-shifting ability decreased Impairments: decreased flexibility, ROM decreased, strength decreased, impaired balance Bed Mobility cuing initially for sequencing to facilitate increased independence, good return demo, pt c ontinues to take extra time Assistive Device: none Scoot/Bridge, Level of [place]: modified independent Supine to Sit, Level of [place]: modified independent Sit to Supine, Level of [place]: modified independent Safety Issues: decreased use of legs for bridging/pushing Impairments: decreased flexibility, ROM decreased, strength decreased Therapeutic Exercise SciFit, level 2, 10min. STM w/ MLM to BLE w/ emphasis on fibrotic scar tissue at proximal lateral thighs. Functional Endurance Improving w/ pt able to mobilize 25' w/ FWW x 4 w/ only mild SOB ROM L LE ROM: AAROM,hip 0-60, knee 0-80,pt observed to be sitting w/ hips close to 90, pt does have posterior pelvic tilt in sitting to avoid full 90 at hips R LE ROM: AAROM, hip 0-80, knee 0-90, pt observed to be sitting w/ hips close to 90, pt mcdonald s have posterior pelvic tilt in sitting to avoid full 90 at hips Strength L LE Strength: IP 2/5, quad 3-/5, HS 3+/5,DF/PF 5/5 R LE Strength: IP 3-/5, quad 3+/5, HS 4-/5, DF/PF 5/5 PT Goal Review Date Flowsheet Row Most Recent Value STG Review Date 01/08/17 at 01/01/2017 1115 LTG Review Date 01/22/17 at 01/01/2017 1115 All Bed Mobility Goal Flowsheet Row Most Recent Value STG Status discontinued at 01/04/2017 1200 STG [place] Level -- [.] at 01/04/2017 1200 LTG Status -- [.] at 01/04/2017 1200 LTG [place] Level -- [.] at 01/04/2017 1200 Roll Left/Right Goal Flowsheet Row Most Recent Value STG Status discontinued at 01/04/2017 1450 STG [place] Level -- [.] at 01/04/2017 1450 LTG Status -- [.] at 01/04/2017 1450 LTG [place] Level -- [.] at 01/04/2017 1450 Scoot/Bridge Goal Flowsheet Row Most Recent Value STG Status met at 01/04/2017 1200 STG [place] Level contact guard assist at 01/01/2017 1115 LTG Status revised at 01/07/2017 1345 LTG [place] Level independent at 01/07/2017 1345 Xuymmh-Caq-[id number] Goal Flowsheet Row Most Recent Value STG Status met at 01/06/2017 1200 STG [place] Level contact guard assist at 01/01/2017 1115 STG Assistive Device bed rails at 01/01/2017 1115 LTG Status continued at 01/07/2017 1345 LTG [place] Level modified independent at 01/01/2017 1115 LTG Assistive Device bed rails at 01/01/2017 1115 [id number]-Pbu-Tyxfrldyi Goal Flowsheet Row Most Recent Value STG Status discontinued at 01/04/2017 1200 STG [place] Level -- [.] at 01/04/2017 1200 STG Assistive Device -- [.] at 01/04/2017 1200 LTG Status -- [.] at 01/04/2017 1200 LTG [place] Level -- [.] at 01/04/2017 1200 All Transfers Goal Flowsheet Row Most Recent Value STG Status met at 01/04/2017 1200 STG [place] Level contact guard assist at 01/01/2017 1115 STG Comments Using Sanam Stedy at 01/01/2017 1115 LTG Status continued at 01/07/2017 1345 LTG [place] Level modified independent at 01/01/2017 1115 LTG Assistive Device 2 wheeled walker (FWW) at 01/01/2017 1115 Gait Goal Flowsheet Row Most Recent Value STG Status met at 01/05/2017 1200 STG [place] Level minimum assist (75% patient effort) at 01/01/2017 1115 STG Assistive Device 2 wheeled walker (FWW) at 01/01/2017 1115 STG Distance (feet) 15 at 01/01/2017 1115 LTG Status not addressed at 01/07/2017 1345 LTG [place] Level modified independent at 01/01/2017 1115 LTG Assistive Device 2 wheeled walker (FWW) at 01/01/2017 1115 LTG Distance (feet) 50 at 01/01/2017 1115 Stair Goal Flowsheet Row Most Recent Value STG Status not addressed at 01/07/2017 1345 STG [place] Level minimum assist (75% patient effort) at 01/01/2017 1115 STG Assistive Device 2 rails at 01/01/2017 1115 STG Number of Stairs 8 at 01/01/2017 1115 LTG Status continued at 01/03/2017 1200 LTG [place] Level modified independent at 01/01/2017 1115 LTG Assistive Device 2 rails at 01/01/2017 1115 LTG Number of Stairs 8 at 01/01/2017 1115 Wheelchair Goal Flowsheet Row Most Recent Value STG Status discontinued at 01/05/2017 1200 STG -- [.] at 01/05/2017 1200 LTG Status -- [.] at 01/05/2017 1200 Additional Goal #1 PT Flowsheet Row Most Recent Value STG Status met at 01/03/2017 1200 STG Pt will tolerate standing at Sanam Chemady x 1min w/ supervision only at 01/01/2017 1115 LTG Status met at 01/04/2017 1450 LTG pt kenneth standing with fww for 3 minutes supervised at 01/01/2017 1115 Electronically signed by: Domenica Griffith, PT, 01/07/2017 16:38 lan of Care - Domenica Lebron, PT - 01/07/2017 12:00 PM PDTFormatting of this note might be different from the o riginal. Problem: Patient Care Overview (Adult) Goal: Care Team Goals & Evaluation PROBLEM-RELATED GOALS: 3. Dora will call out appropriately for assistance and have no falls during hospitalizati on through 01/18/17 4. Dora's pain will be controlled to allow for activity and rest through 01/18/17 5. Dora will eat 75-100% most meals and accept health shakes through 01/18/17 6. Dora will have a bm qod while in rehab through 01/18/17 7. Dora will void w/o difficulties after catheter removal by 01/18/17 8. Dora's skin tears and abrasions will heal w/o s/sx infection 9. Dora will transfer with 1 person A by 01/10/17 10. Geovany will be SBA- setup for his ADLs & functional mobility by 01/25/17. STRATEGY TO ACHIEVE GOALS: -monitor for s/sx pain and medicate prn -monitor for s/sx infection, clean wounds prn and perform dressing changes prn -monitor bm's and medicate prn -encourage po intake and ensure pt is drinking health shakes -monitor voids and perform bladder scans -encourage independence with ambulation and ensure safe transfers - Active participation in OT sessions RESTRAINT-RELATED GOALS: STRATEGIES TO ACHIEVE RESTRAINT GOALS: Outcome: Improving Physical Therapy Plan of Care Treatment Note Summary: Pt kennteh am PT session well w/ continued steady progress toward functional goals as evidenced by increasing tolerance for gait and his ability to negotiate 4 steps w/ only min A of 1. Refer below for details of functional levels. He continues to present w/ strength and ROM deficits, balance impairments, postural instability, diminished functional activity kenneth and pain, although his pain has been much more controlled for the past 2 days and doesn' t appear to be affecting his ability to participate w/ therapy as much. Pt will benefit from continued PT interventions to promote increased independence w/ functional activities jian pena for safe home discharge. Physical Therapy Discharge Recommendations are: Recommended discharge disposition: home with assist Post discharge physical therapy recommendation: home health, outpatient therapy, pt is mot ivated participant Equipment Recommendations: 2 wheeled walker (FWW) Planned Interventions: balance training, bed mobility training, gait training, home exerci se program, patient/family education, orthotic fitting/training, transfer training, wheelcha ir management/propulsion training, ROM (Range of Motion), stair training, strengthening Recommended Frequency: (1-2x/day) Patient Status/Goals: Reflects last filed data and may be from multiple contributors. Gait close SBA d/t high fall risk and observed instability, able to complete w/c follow w/o need for 2nd person Level of [place]: stand by assist Assistive Device: 2 wheeled walker (FWW) Distance (feet): 25 x 4 Stairs Min a for support at pelvis, cues for sequencing Number of Stairs: 4 Handrail Location: both sides Level of [place]: minimal assist (75% patient effort), verbal cues required Assistive Device: 2 rails Technique Used: step to step (ascending), step to step (descending) Maintain Weight Bearing Status: (.) Safety Issues: balance decreased during turns Impairments: pain, impaired balance, strength decreased, motor control impaired, decreased flexibility, ROM decreased Transfers continues w/ need for cuing for sequencing including cues to bring feet back toward chair b efore reaching out for FWW as his knees are not flexible enough to get feet back far enough prior to standing. Bed-Chair, Level of [place]: stand by assist, verbal cues required Chair-Bed, Level of [place]: stand by assist, verbal cues required Krq-[id number]-[id number], Assistive Device: 2 wheeled walker (FWW) Sit-Stand, Level of [place]: stand by assist, verbal cues required Stand-Sit, Level of [place]: stand by assist, verbal cues required [id number], Assistive Device: 2 wheeled walker (FWW) Maintain Weight Bearing Status: (WBAT) Safety Issues: weight-shifting ability decreased Impairments: decreased flexibility, ROM decreased, strength decreased, impaired balance Bed Mobility cuing initially for sequencing to facilitate increased independence, good return demo, pt c ontinues to take extra time Assistive Device: none Scoot/Bridge, Level of [place]: modified independent Supine to Sit, Level of [place]: modified independent Sit to Supine, Level of [place]: modified independent Safety Issues: decreased use of legs for bridging/pushing Impairments: decreased flexibility, ROM decreased, strength decreased Functional Endurance Improving w/ pt able to mobilize 25' w/ FWW x 4 w/ only mild SOB ROM L LE ROM: AAROM,hip 0-60, knee 0-80,pt observed to be sitting w/ hips close to 90, pt does have posterior pelvic tilt in sitting to avoid full 90 at hips R LE ROM: AAROM, hip 0-80, knee 0-90, pt observed to be sitting w/ hips close to 90, pt mcdonald s have posterior pelvic tilt in sitting to avoid full 90 at hips Strength L LE Strength: IP 2/5, quad 3-/5, HS 3+/5,DF/PF 5/5 R LE Strength: IP 3-/5, quad 3+/5, HS 4-/5, DF/PF 5/5 PT Goal Review Date Flowsheet Row Most Recent Value STG Review Date 01/08/17 at 01/01/2017 1115 LTG Review Date 01/22/17 at 01/01/2017 1115 All Bed Mobility Goal Flowsheet Row Most Recent Value STG Status discontinued at 01/04/2017 1200 STG [place] Level -- [.] at 01/04/2017 1200 LTG Status -- [.] at 01/04/2017 1200 LTG [place] Level -- [.] at 01/04/2017 1200 Roll Left/Right Goal Flowsheet Row Most Recent Value STG Status discontinued at 01/04/2017 1450 STG [place] Level -- [.] at 01/04/2017 1450 LTG Status -- [.] at 01/04/2017 1450 LTG [place] Level -- [.] at 01/04/2017 1450 Scoot/Bridge Goal Flowsheet Row Most Recent Value STG Status met at 01/04/2017 1200 STG [place] Level contact guard assist at 01/01/2017 1115 LTG Status met at 01/06/2017 1615 LTG [place] Level modified independent at 01/01/2017 1115 Qsflne-Odz-Fqqnln Goal Flowsheet Row Most Recent Value STG Status met at 01/06/2017 1200 STG [place] Level contact guard assist at 01/01/2017 1115 STG Assistive Device bed rails at 01/01/2017 1115 LTG Status progressing at 01/07/2017 1200 LTG [place] Level modified independent at 01/01/2017 1115 LTG Assistive Device bed rails at 01/01/2017 1115 Eiyxikgus-Scr-Ozxtersbe Goal Flowsheet Row Most Recent Value STG Status discontinued at 01/04/2017 1200 STG [place] Level -- [.] at 01/04/2017 1200 STG Assistive Device -- [.] at 01/04/2017 1200 LTG Status -- [.] at 01/04/2017 1200 LTG [place] Level -- [.] at 01/04/2017 1200 All Transfers Goal Flowsheet Row Most Recent Value STG Status met at 01/04/2017 1200 STG [place] Level contact guard assist at 01/01/2017 1115 STG Comments Using Sanam Chemady at 01/01/2017 1115 LTG Status progressing at 01/07/2017 1200 LTG [place] Level modified independent at 01/01/2017 1115 LTG Assistive Device 2 wheeled walker (FWW) at 01/01/2017 1115 Gait Goal Flowsheet Row Most Recent Value STG Status met at 01/05/2017 1200 STG [place] Level minimum assist (75% patient effort) at 01/01/2017 1115 STG Assistive Device 2 wheeled walker (FWW) at 01/01/2017 1115 STG Distance (feet) 15 at 01/01/2017 1115 LTG Status progressing at 01/07/2017 1200 LTG [place] Level modified independent at 01/01/2017 1115 LTG Assistive Device 2 wheeled walker (FWW) at 01/01/2017 1115 LTG Distance (feet) 50 at 01/01/2017 1115 Stair Goal Flowsheet Row Most Recent Value STG Status progressing at 01/07/2017 1200 STG [place] Level minimum assist (75% patient effort) at 01/01/2017 1115 STG Assistive Device 2 rails at 01/01/2017 1115 STG Number of Stairs 8 at 01/01/2017 1115 LTG Status continued at 01/03/2017 1200 LTG [place] Level modified independent at 01/01/2017 1115 LTG Assistive Device 2 rails at 01/01/2017 1115 LTG Number of Stairs 8 at 01/01/2017 1115 Wheelchair Goal Flowsheet Row Most Recent Value STG Status discontinued at 01/05/2017 1200 STG -- [.] at 01/05/2017 1200 LTG Status -- [.] at 01/05/2017 1200 Additional Goal #1 PT Flowsheet Row Most Recent Value STG Status met at 01/03/2017 1200 STG Pt will tolerate standing at Sanam Chemady x 1min w/ supervision only at 01/01/2017 1115 LTG Status met at 01/04/2017 1450 LTG pt kenneth standing with fww for 3 minutes supervised at 01/01/2017 1115 Electronically signed by: Domenica Griffith, PT, 01/07/2017 13:19 lan of Care - Arely Pool COTA - 01/07/2017 10:45 AM PDTFormatting of this note might be different from t he original. Problem: Patient Care Overview (Adult) Goal: Care Team Goals & Evaluation PROBLEM-RELATED GOALS: 3. Dora will call out appropriately for assistance and have no falls during hospitalizati on through 01/18/17 4. Leighanns pain will be controlled to allow for activity and rest through 01/18/17 5. Dora will eat 75-100% most meals and accept health shakes through 01/18/17 6. Dora will have a bm qod while in rehab through 01/18/17 7. Dora will void w/o difficulties after catheter removal by 01/18/17 8. Leighanns skin tears and abrasions will heal w/o s/sx infection 9. Dora will transfer with 1 person A by 01/10/17 10. Geovany will be SBA- setup for his ADLs & functional mobility by 01/25/17. STRATEGY TO ACHIEVE GOALS: -monitor for s/sx pain and medicate prn -monitor for s/sx infection, clean wounds prn and perform dressing changes prn -monitor bm's and medicate prn -encourage po intake and ensure pt is drinking health shakes -monitor voids and perform bladder scans -encourage independence with ambulation and ensure safe transfers - Active participation in OT sessions RESTRAINT-RELATED GOALS: STRATEGIES TO ACHIEVE RESTRAINT GOALS: IRF Occupational Therapy Plan of Care Treatment Note Summary: Pt is demonstrating increased independence with step pivot transfer to w/c using FWW, stiil needed VC's for safe hand placement. Increased struggle with sit to stand going back to bed after shower. Notified nursing that pt was back in bed for wound care. Occupational Therapy Discharge Recommendations are: Recommended discharge disposition: home with assist Post discharge occupational therapy recommendation: pt is motivated participant, home heal th Equipment Recommendations: 2 wheeled walker (FWW), casserole preparer, sock aide, tub bench Planned Interventions:ADL retraining, strengthening, transfer training, bed mobility traini ng, IADL retraining, balance training, prosthetic fitting/training, ROM (Range of Motion) (e jeanine mgmt as indicated) Recommended Frequency: (6-7x/week) Patient Status/Goals: Reflects last filed data and may be from multiple contributors. ADLs Pt requesting to shower this AM. Declined Bathing, Level of [place]: set up required, supervised Assistive Device: grab bars, hand-held shower head, long-handled sponge Bathing Assess/Train, Position: sitting Bathing Assess/Train, Impairments: strength decreased, impaired balance no physical assist required, just set up UB Dressing, Level of [place]: set up required Assistive Device: none UB Dressing Assess/Train, Position: sitting Assist to thread catheter through clothing, assist with socks after application of cream ov er feet/heals. Pt still needs assist to don clothing over hips from standing LB Dressing, Level of [place]: minimal assist (75% patient effort) Assistive Device: casserole preparer, sock-aid LB Dressing Assess/Train, Position: sitting, supported standing LB Dressing Assess/Train, Impairments: strength decreased, impaired balance, pain not addressed this AM Toileting, Level of [place]: contact guard assist Assistive Device: grab bar, raised toilet seat Toileting Assess/Train, Position: sitting, supported standing Toileting Assess/Train, Impairments: decreased flexibility, ROM decreased, strength decreas ed, impaired balance Pt reports grooming completed first this AM. Grooming, Level of [place]: set up required Assistive Device: electric razor Grooming Assess/Train, Position: sitting Grooming Assess/Train, Impairments: strength decreased, impaired balance, pain Transfers cga/verbal cues required Bed-Chair, Level of [place]: contact guard assist, verbal cues required, set up requir ed Chair-Bed, Level of [place]: contact guard assist, verbal cues required, set up requir ed [id number], Assistive Device: 2 wheeled walker (FWW), wheelchair Sit-Stand, Level of [place]: stand by assist, verbal cues required, set up required Stand-Sit, Level of [place]: stand by assist, verbal cues required, set up required [id number], Assistive Device: 2 wheeled walker (FWW) Tub, Level of [place]: stand by assist Tub, Assistive Device: tub bench, wheelchair, grab bars Safety Issues: weight-shifting ability decreased Impairments: decreased flexibility, ROM decreased, strength decreased, impaired balance OT Goal Review Date Flowsheet Row Most Recent Value STG Review Date 01/08/17 at 01/04/2017 1455 LTG Review Date 01/25/17 at 01/04/2017 1455 Grooming Goal Flowsheet Row Most Recent Value STG Status met at 01/07/2017 1045 STG [place] Level stand by assist at 01/04/2017 1455 STG Position sitting in chair [at sink] at 01/04/2017 1455 STG Adaptive Equipment none at 01/04/2017 1455 LTG Status continued at 01/07/2017 1045 LTG [place] Level modified independent at 01/01/2017 1338 LTG Position -- [sitting at sink] at 01/04/2017 1455 Bathing Goal Flowsheet Row Most Recent Value STG Status met at 01/07/2017 1045 STG [place] Level contact guard assist at 01/01/2017 1338 STG Adaptive Equpiment shower chair, tub bench at 01/01/2017 1338 LTG Status continued at 01/07/2017 1045 LTG [place] Level stand by assist at 01/01/2017 1338 UB Dressing Goal Flowsheet Row Most Recent Value STG Status met at 01/06/2017 1030 STG [place] Level stand by assist at 01/01/2017 1338 LTG Status met at 01/06/2017 1030 LTG [place] Level set up required at 01/01/2017 1338 LB Dressing Goal Flowsheet Row Most Recent Value STG Status progressing at 01/07/2017 1045 STG [place] Level contact guard assist at 01/01/2017 1338 LTG Status progressing at 01/07/2017 1045 LTG [place] Level set up required at 01/01/2017 1338 Toileting Goal Flowsheet Row Most Recent Value STG Status met at 01/06/2017 1030 STG [place] Level minimum assist (75% patient effort) at 01/01/2017 1338 LTG Status continued at 01/07/2017 1045 LTG [place] Level stand by assist at 01/01/2017 1338 Toilet Transfer Goal Flowsheet Row Most Recent Value STG Status met at 01/04/2017 1837 STG [place] Level minimum assist (75% patient effort) at 01/01/2017 1338 LTG Status continued at 01/07/2017 1045 LTG [place] Level supervised at 01/01/2017 1338 Tub/Shower Transfer Goal Flowsheet Row Most Recent Value Tub/Shower Type tub/shower combo at 01/03/2017 1909 STG Status met at 01/07/2017 1045 STG [place] Level minimum assist (75% patient effort) at 01/03/2017 1909 STG Assistive Device tub bench at 01/03/2017 1909 LTG Status met, continued at 01/07/2017 1045 LTG [place] Level stand by assist at 01/03/2017 1909 LTG Assistive Device tub bench at 01/03/2017 190 Electronically signed by: Arely Pool, Certified Health Care Marketing Manager, 2016 10:45 atient Care Conf Sajan Weir MD - 01/07/2017 9:57 AM PDTFormatting of this note might be d ifferent from the original. [facility] Inpatient Rehabilitation Facility Individualized Overall Plan of Care Weekly Team Conference Patient Identification Dora Arellano is a 86 y.o. male. : 1930 Admit Date: 12/31/2016 Attending Provider: Sajan Hernandez MD Primary Care Physician: Carlos Alberto Galeas MD Admitting Diagnosis: Right femur fx, Left peritrochanteric fx Team Conference Date: 01/08/2017 Medical Prognosis and need for Rehabilitation Physician oversight and anticipated Rehabilit ation Physician interventions: [place] for functional progress is good. Physician Summary: Mr. Arellano is a 86-year-old man with a history of a fib admitted 12/18/16 after a GLF resulti ng in right mid-shaft femoral and left intertrochanteric femur fractures resulting in impair ed mobility, transfers, and self-care. Pt now has deficits in coordination, ambulation, st rength, ADLs, and IADLs. Patients exam also consistent with a moderate peripheral neuropat hy, which likely explains the progressively impaired balance the past few years. Patient h as multiple co-morbidities, and is medically complex requiring [...] be on low side despite midodrine. P atient reports he has similar issues with BP [...] diphenhydramine, benzodiazepines, scopolamine, and metoclopram manuel. Limit LADLE WATCHER active medications using lowest effective dose. -Implement [...] -see [facility] above Code Status: No Code. Rehabilitation Nursing Summary: Alert and pleasant. Transfers have improved from using carlos a-steady to onee-person assist with transfers with front-wheel walker. Good pain control wit h routine ultram. CMS intact. Skin tears with dressings intact and healing well. Indwelling urethral catheter with clear yellow urine. Bowel movement 01/08/17. Cracked skin to right rene l, applying lotion bid and floating heels on pillows. Has been eating 50-100% of meals. Call s appropriately for assistance. Safety Management: Elopement/wander risk: No General Risk Interventions: Cognitive Impairment Interventions: Altered Eliminations/Toileting interventions: Safety Management Goal: pt will call out 100% of the time for assistance and have no falls during hospitalization Pain Management: Pain ratin-4/10 Pain Management Goal: pain will be controlled to allow for activity and rest Skin Management: Arie Score: 19 Skin Management Goal: skin tears and abrasions will heal w/o s/sx infection Bladder Management: FIM BladderScore: 1; Evidence: 1 Do Velarde Maintainance # Bladder accidents last 7 days: 0 Bladder Management Goal: pt will void w/o difficulties and not require to be IC Bowel Management: FIM Bowel Score: 6; Evidence: 6 BS Commode [place], 6 Medication [place] # Bowel accidents last 7 days: 0 Bowel Management Goal: pt will be continent of bowel using prn rx, bm in BR and/or BSC Nutrition Management: Nutrition Management Goal: pt will eat 75% most meals and drink adequate amount fluids Pt is eating 80-100% of a general diet. Healthshakes are provided bid. Fluid intake for t he past 2 days per I/O shows 4870-1049 ml/day. Intake improved overall and likely adequate for meeting assessed energy and protein needs. Cont to f/u as needed. Nightime Management: Nighttime Management Goal: pt will report adequate amount sleep and will call out for assi stance 100% of the time during the night Mobility Summary: Pt kenneth pm PT session well and continues to demonstrate progress toward i ncreasing strength and independence. He continues to present w/ strength and ROM deficits, b alance impairments, postural instability, diminished functional activity kenneth and pain. Transfers FIM Bed/Chair/Wheelchair Score: 3; Evidence:6 Extra Time, 6 Grab Bar, 6 Walker/Crutch/Ca ne, 5 Safety Supervision, 4 Steadying, 3 Lift Two Legs FIM Toilet Transfer Score: 4; Evidence: 4 Steadying, 5 Safety Supervision, 6 BS Commode [place], 6 Extra Time FIM Tub/Shower Transfer Score: 5; Evidence: 5 Safety Supervision Locomotion FIM Walk Score: 1; Evidence: 1 Walks <50 ft FIM Distance Walked(feet): 25 feet FIM Wheelchair Score: 1; Evidence: WC Manual, 1 Travels <50 ft Level of [place]: (.) Propulsion Technique: (.) Components: (.) Components Management Assistance: (.) Wheelchair Mobility Comments: (.) FIM Stairs Score :2; Evidence: 2 4-6 Stairs w/Assist PT GOALS PT Goal Review Date Flowsheet Row Most Recent Value STG Review Date 01/08/17 at 01/01/2017 1115 LTG Review Date 01/22/17 at 01/01/2017 1115 All Bed Mobility Goal Flowsheet Row Most Recent Value STG Status discontinued at 01/04/2017 1200 STG [place] Level -- [.] at 01/04/2017 1200 LTG Status -- [.] at 01/04/2017 1200 LTG [place] Level -- [.] at 01/04/2017 1200 Roll Left/Right Goal Flowsheet Row Most Recent Value STG Status discontinued at 01/04/2017 1450 STG [place] Level -- [.] at 01/04/2017 1450 LTG Status -- [.] at 01/04/2017 1450 LTG [place] Level -- [.] at 01/04/2017 1450 Scoot/Bridge Goal Flowsheet Row Most Recent Value STG Status met at 01/04/2017 1200 STG [place] Level contact guard assist at 01/01/2017 1115 LTG Status revised at 01/07/2017 1345 LTG [place] Level independent at 01/07/2017 1345 Vnertf-Vsa-Muoaii Goal Flowsheet Row Most Recent Value STG Status met at 01/06/2017 1200 STG [place] Level contact guard assist at 01/01/2017 1115 STG Assistive Device bed rails at 01/01/2017 1115 LTG Status continued at 01/07/2017 1345 LTG [place] Level modified independent at 01/01/2017 1115 LTG Assistive Device bed rails at 01/01/2017 1115 Iodeumegr-Qze-Famverjew Goal Flowsheet Row Most Recent Value STG Status discontinued at 01/04/2017 1200 STG [place] Level -- [.] at 01/04/2017 1200 STG Assistive Device -- [.] at 01/04/2017 1200 LTG Status -- [.] at 01/04/2017 1200 LTG [place] Level -- [.] at 01/04/2017 1200 All Transfers Goal Flowsheet Row Most Recent Value STG Status met at 01/04/2017 1200 STG [place] Level contact guard assist at 01/01/2017 1115 STG Comments Using Sanam Stedy at 01/01/2017 1115 LTG Status continued at 01/07/2017 1345 LTG [place] Level modified independent at 01/01/2017 1115 LTG Assistive Device 2 wheeled walker (FWW) at 01/01/2017 1115 Gait Goal Flowsheet Row Most Recent Value STG Status met at 01/05/2017 1200 STG [place] Level minimum assist (75% patient effort) at 01/01/2017 1115 STG Assistive Device 2 wheeled walker (FWW) at 01/01/2017 1115 STG Distance (feet) 15 at 01/01/2017 1115 LTG Status not addressed at 01/07/2017 1345 LTG [place] Level modified independent at 01/01/2017 1115 LTG Assistive Device 2 wheeled walker (FWW) at 01/01/2017 1115 LTG Distance (feet) 50 at 01/01/2017 1115 Stair Goal Flowsheet Row Most Recent Value STG Status not addressed at 01/07/2017 1345 STG [place] Level minimum assist (75% patient effort) at 01/01/2017 1115 STG Assistive Device 2 rails at 01/01/2017 1115 STG Number of Stairs 8 at 01/01/2017 1115 LTG Status continued at 01/03/2017 1200 LTG [place] Level modified independent at 01/01/2017 1115 LTG Assistive Device 2 rails at 01/01/2017 1115 LTG Number of Stairs 8 at 01/01/2017 1115 Wheelchair Goal Flowsheet Row Most Recent Value STG Status discontinued at 01/05/2017 1200 STG -- [.] at 01/05/2017 1200 LTG Status -- [.] at 01/05/2017 1200 Additional Goal #1 PT Flowsheet Row Most Recent Value STG Status met at 01/03/2017 1200 STG Pt will tolerate standing at Sanam Stedy x 1min w/ supervision only at 01/01/2017 1115 LTG Status met at 01/04/2017 1450 LTG pt kenneth standing with fww for 3 minutes supervised at 01/01/2017 1115 Self Care Summary: Pt is demonstrating increased independence with step pivot transfer to w /c using FWW, stiil needed VC's for safe hand placement. Pt is progressing with his OT goal s, meeting 90% of the STG's, Barrier to D/C: pt still not ambulating house hold distances fo r ADL's. Pt Mod A LB dressing. Pt will benefit from continued IRF OT services to increase P t's independence to return home at pt's prior level of function. FIM Eating Score: 6; Evidence: FIM Grooming Score: 5; Evidence: 5 Get Items FIM Bathing Score: 5; Evidence: 5 Get Items, 5 Safety Supervison, 6 Long Handled Sponge FIM Dressing Upper Body Score: 5; Evidence:5 Get Clothing FIM Dressing Lower Body Score: 4; Evidence:Up/ Down Underwear, On/Off R Sock, On/Off L Sock, 5 Get Clothing, 5 Verbal Cues FIM Toileting Score: 4; Evidence:4 Steadying, 6 Grab Bar, 6 Extra Time OT Goals OT Goal Review Date Flowsheet Row Most Recent Value STG Review Date 01/08/17 at 01/04/2017 1455 LTG Review Date 01/25/17 at 01/04/2017 1455 Grooming Goal Flowsheet Row Most Recent Value STG Status met at 01/07/2017 1045 STG [place] Level stand by assist at 01/04/2017 1455 STG Position sitting in chair [at sink] at 01/04/2017 1455 STG Adaptive Equipment none at 01/04/2017 1455 LTG Status continued at 01/07/2017 1045 LTG [place] Level modified independent at 01/01/2017 1338 LTG Position -- [sitting at sink] at 01/04/2017 1455 Bathing Goal Flowsheet Row Most Recent Value STG Status met at 01/07/2017 1045 STG [place] Level contact guard assist at 01/01/2017 1338 STG Adaptive Equpiment shower chair, tub bench at 01/01/2017 1338 LTG Status continued at 01/07/2017 1045 LTG [place] Level stand by assist at 01/01/2017 1338 UB Dressing Goal Flowsheet Row Most Recent Value STG Status met at 01/06/2017 1030 STG [place] Level stand by assist at 01/01/2017 1338 LTG Status met at 01/06/2017 1030 LTG [place] Level set up required at 01/01/2017 1338 LB Dressing Goal Flowsheet Row Most Recent Value STG Status progressing at 01/07/2017 1045 STG [place] Level contact guard assist at 01/01/2017 1338 LTG Status progressing at 01/07/2017 1045 LTG [place] Level set up required at 01/01/2017 1338 Toileting Goal Flowsheet Row Most Recent Value STG Status met at 01/06/2017 1030 STG [place] Level minimum assist (75% patient effort) at 01/01/2017 1338 LTG Status continued at 01/07/2017 1045 LTG [place] Level stand by assist at 01/01/2017 1338 Toilet Transfer Goal Flowsheet Row Most Recent Value STG Status met at 01/04/2017 1837 STG [place] Level minimum assist (75% patient effort) at 01/01/2017 1338 LTG Status continued at 01/07/2017 1045 LTG [place] Level supervised at 01/01/2017 1338 Tub/Shower Transfer Goal Flowsheet Row Most Recent Value Tub/Shower Type tub/shower combo at 01/03/2017 1909 STG Status met at 01/07/2017 1045 STG [place] Level minimum assist (75% patient effort) at 01/03/2017 1909 STG Assistive Device tub bench at 01/03/2017 1909 LTG Status met, continued at 01/07/2017 1045 LTG [place] Level stand by assist at 01/03/2017 1909 LTG Assistive Device tub bench at 01/03/2017 1909 Cognition/Communication Summary: Problem Solving Score: 6; Evidence: 6 Extra Time Memory Score: 6; Evidence: 6 Extra Time Comprehension/AuditoryScore: 6; Evidence: 6 Uses Glasses, 6 Needs Extra Time Verbal Expression Score: 7; Evidence: 7 Express Complex 100% Social Interaction Score: 6; Evidence:6 Extra Time Dysphagia/Swallow: ASSISTANCE COORDINATOR Goals Leisure/Community: Therapeutic day pass appropriate: no Education Caregiver training initiated: No Sexuality education initiated: N/A Other education initiated (see Patient Education activity): Yes Recommended Discharge Equipment 2 wheeled walker (FWW), 2 wheeled walker (FWW), casserole preparer, sock aide, tub bench Barriers to Discharge Barriers to Discharge: Eight steps in his home, 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 , level of assist needed at home Barrier Resolution Plan: Patient and are agreeable to hire care givers, if patient is unable to complete stairs he is will to install a chair lift Post-Discharge Plan Setting: Home in [place] Level of Assist Recommended for Discharge: Mod I with ambulation and ADLs Anticipate post discharge services: Needed DME, care givers, in home PT VS outpatient ther apies Prosthetics/Orthotics therapeutic interventions recommended: N/A Admission Date: 12/31/2016 ELOS: 21 days (but may be sooner given progress yesterday and t aftab) Projected DC Date: 01/21/17 Team Goals: 1. Mod I 8 stairs 2. Mod I mobility 3. Mod I ADLs 4. Continued pain control 5. Improved ability to urinate Participants: MD: Dr. Sajan Hernandez RN: KARTHIKEYAN Arteaga PT: Domenica Griffith PT OT: Yuliya Ross, OTR/L; Arely Pool LIAO/L ASSISTANCE COORDINATOR: N/A RAMIREZ/SW: ADELITA Kelly Following interdisciplinary discussion and planning, I fully agree with the above. lan of Care - Lashaun Waddell RN - 01/07/2017 4:37 AM PDTProblem: Patient Care Overview (Adult) Goal: Care Team Goals & Evaluation PROBLEM-RELATED GOALS: 3. Dora will call out appropriately for assistance and have no falls during hospitalizati on through 01/18/17 4. Dora's pain will be controlled to allow for activity and rest through 01/18/17 5. Dora will eat 75-100% most meals and accept health shakes through 01/18/17 6. Dora will have a bm qod while in rehab through 01/18/17 7. Dora will void w/o difficulties after catheter removal by 01/18/17 8. Dora's skin tears and abrasions will heal w/o s/sx infection 9. Dora will transfer with 1 person A by 01/10/17 10. Geovany will be SBA- setup for his ADLs & functional mobility by 01/25/17. STRATEGY TO ACHIEVE GOALS: -monitor for s/sx pain and medicate prn -monitor for s/sx infection, clean wounds prn and perform dressing changes prn -monitor bm's and medicate prn -encourage po intake and ensure pt is drinking health shakes -monitor voids and perform bladder scans -encourage independence with ambulation and ensure safe transfers - Active participation in OT sessions RESTRAINT-RELATED GOALS: STRATEGIES TO ACHIEVE RESTRAINT GOALS: Outcome: Improving Goal Evaluation: Pt slept well. Uses call light appropriately. Denies pain. CMS intact. Velarde cath in place . 1 assist for pivot transfer to w/c. Multiple bandages to BUE/BLE. Foam drsg to coccyx off per pt request, have been turning pt q 2 hrs. lan of Elysia Whitten , Carine Moncada RN - 01/06/2017 4:51 PM PDTProblem: Patient Care Overview (Adult) Goal: Care Team Goals & Evaluation PROBLEM-RELATED GOALS: 3. Dora will call out appropriately for assistance and have no falls during hospitalizati on through 01/18/17 4. Leighanns pain will be controlled to allow for activity and rest through 01/18/17 5. Dora will eat 75-100% most meals and accept health shakes through 01/18/17 6. Dora will have a bm qod while in rehab through 01/18/17 7. Dora will void w/o difficulties after catheter removal by 01/18/17 8. Leighanns skin tears and abrasions will heal w/o s/sx infection 9. Dora will transfer with 1 person A by 01/10/17 10. Geovany will be SBA- setup for his ADLs & functional mobility by 01/25/17. STRATEGY TO ACHIEVE GOALS: -monitor for s/sx pain and medicate prn -monitor for s/sx infection, clean wounds prn and perform dressing changes prn -monitor bm's and medicate prn -encourage po intake and ensure pt is drinking health shakes -monitor voids and perform bladder scans -encourage independence with ambulation and ensure safe transfers - Active participation in OT sessions RESTRAINT-RELATED GOALS: STRATEGIES TO ACHIEVE RESTRAINT GOALS: Outcome: Improving Goal Evaluation: alert and pleasant 1-2 person assist with fww states good pain control with ultram cms int act bandages to skin tears intact bm yesterday f/c cyu lan of Care - Jimi, YANNI Rios - 01/06/2017 4:44 PM PDTFormatting of this note might be different from the rand alberto. Problem: Patient Care Overview (Adult) Goal: Care Team Goals & Evaluation PROBLEM-RELATED GOALS: 3. Dora will call out appropriately for assistance and have no falls during hospitalizati on through 01/18/17 4. Leighanns pain will be controlled to allow for activity and rest through 01/18/17 5. Dora will eat 75-100% most meals and accept health shakes through 01/18/17 6. Dora will have a bm qod while in rehab through 01/18/17 7. Dora will void w/o difficulties after catheter removal by 01/18/17 8. Leighanns skin tears and abrasions will heal w/o s/sx infection 9. Dora will transfer with 1 person A by 01/10/17 10. Geovany will be SBA- setup for his ADLs & functional mobility by 01/25/17. STRATEGY TO ACHIEVE GOALS: -monitor for s/sx pain and medicate prn -monitor for s/sx infection, clean wounds prn and perform dressing changes prn -monitor bm's and medicate prn -encourage po intake and ensure pt is drinking health shakes -monitor voids and perform bladder scans -encourage independence with ambulation and ensure safe transfers - Active participation in OT sessions RESTRAINT-RELATED GOALS: STRATEGIES TO ACHIEVE RESTRAINT GOALS: Outcome: Improving IRF Occupational Therapy Plan of Care Treatment Note Summary: Pt c/o of being up since 5:30 this am,c/o of his back,hip hurting from being in b ed,w/c being too uncomfortable and not enough staff people around to help!. This therapist p rovided active listening reassurd pt PT will look into a better chair/cushion. Declined bath ing and reported he has already brushed theeth,combed hair and shaved early this morning. Co mpleted ambulation,toilet t/f/hygiene w/assit/cues and trained w/use of sock aid to luke soc ks w/ assit/cues. Noted B hips (medial,anterior &lateral sides) edematous w/ tissue very fib rotic to the touch and trained/provided MLM supine in bed to promote lymph drainage and decr ease fibrosis. No kinisiotape applied d/t very fragile skin. Pt left seated on w/c and y newspaper provided/call light placed w/ reach. Pt will benefit from skilled OT to increase strength/endurance,safety w/ fxl mobility and maximize ADL independence. Occupational Therapy Discharge Recommendations are: Recommended discharge disposition: home with assist Post discharge occupational therapy recommendation: pt is motivated participant, home heal th Equipment Recommendations: 2 wheeled walker (FWW), tub bench Planned Interventions:ADL retraining, strengthening, transfer training, bed mobility traini ng, IADL retraining, balance training, prosthetic fitting/training, ROM (Range of Motion) (e jeanine mgmt as indicated) Recommended Frequency: (6-7x/week) Patient Status/Goals: Reflects last filed data and may be from multiple contributors. ADLs Pt reported he washed,face,shaved this morning. Declined sponge bath Declined Bathing, Level of [place]: minimal assist (75% patient effort) Assistive Device: long-handled sponge, hand-held shower head Bathing Assess/Train, Position: sitting Bathing Assess/Train, Impairments: strength decreased, impaired balance Set up only UB Dressing, Level of [place]: supervised, set up required Assistive Device: none UB Dressing Assess/Train, Position: sitting Assist for thread catheter trough shorts and trained w/ use of sock aid to luke socks LB Dressing, Level of [place]: moderate assist (50% patient effort), verbal cues requi red Assistive Device: casserole preparer, sock-aid LB Dressing Assess/Train, Position: sitting, supported standing LB Dressing Assess/Train, Impairments: decreased flexibility, ROM decreased, strength decre ased, impaired balance seated on toilet and cga provided when standing and for clothing management Toileting, Level of [place]: contact guard assist Assistive Device: grab bar, raised toilet seat Toileting Assess/Train, Position: sitting, supported standing Toileting Assess/Train, Impairments: decreased flexibility, ROM decreased, strength decreas ed, impaired balance Functional Endurance Improving as he is now ambualting cga w/ fww to/from br Transfers cga/verbal cues required Toilet, Level of [place]: contact guard assist, verbal cues required Toilet, Assistive Device: seat riser Safety Issues: weight-shifting ability decreased Impairments: decreased flexibility, ROM decreased, strength decreased, impaired balance OT Goal Review Date Flowsheet Row Most Recent Value STG Review Date 01/08/17 at 01/04/2017 1455 LTG Review Date 01/25/17 at 01/04/2017 1455 Grooming Goal Flowsheet Row Most Recent Value STG Status continued, not addressed at 01/06/2017 1030 STG [place] Level stand by assist at 01/04/2017 1455 STG Position sitting in chair [at sink] at 01/04/2017 1455 STG Adaptive Equipment none at 01/04/2017 1455 LTG Status continued, not addressed at 01/06/2017 1030 LTG [place] Level modified independent at 01/01/2017 1338 LTG Position -- [sitting at sink] at 01/04/2017 1455 Bathing Goal Flowsheet Row Most Recent Value STG Status continued, not addressed at 01/06/2017 1030 STG [place] Level contact guard assist at 01/01/2017 1338 STG Adaptive Equpiment shower chair, tub bench at 01/01/2017 1338 LTG Status continued, not addressed at 01/06/2017 1030 LTG [place] Level stand by assist at 01/01/2017 1338 UB Dressing Goal Flowsheet Row Most Recent Value STG Status met at 01/06/2017 1030 STG [place] Level stand by assist at 01/01/2017 1338 LTG Status met at 01/06/2017 1030 LTG [place] Level set up required at 01/01/2017 1338 LB Dressing Goal Flowsheet Row Most Recent Value STG Status progressing at 01/06/2017 1030 STG [place] Level contact guard assist at 01/01/2017 1338 LTG Status progressing at 01/06/2017 1030 LTG [place] Level set up required at 01/01/2017 1338 Toileting Goal Flowsheet Row Most Recent Value STG Status met at 01/06/2017 1030 STG [place] Level minimum assist (75% patient effort) at 01/01/2017 1338 LTG Status progressing at 01/06/2017 1030 LTG [place] Level stand by assist at 01/01/2017 1338 Toilet Transfer Goal Flowsheet Row Most Recent Value STG Status met at 01/04/2017 1837 STG [place] Level minimum assist (75% patient effort) at 01/01/2017 1338 LTG Status progressing at 01/06/2017 1030 LTG [place] Level supervised at 01/01/2017 1338 Tub/Shower Transfer Goal Flowsheet Row Most Recent Value Tub/Shower Type tub/shower combo at 01/03/20171908 STG Status continued, not addressed at 01/06/2017 1030 STG [place] Level minimum assist (75% patient effort) at 01/03/2017 190 STG Assistive Device tub bench at 01/03/2017 190 LTG Status continued, not addressed at 01/06/2017 1030 LTG [place] Level stand by assist at 01/03/20171908 LTG Assistive Device tub bench at 01/03/20171908 Electronically signed by: Skylar Krause, Certified Health Care Marketing Manager, 7 16:33 lan of Care - Domenica Ji, PT - 01/06/2017 4:15 PM PDT Problem: Patient Care Overview (Adult) Goal: Care Team Goals & Evaluation PROBLEM-RELATED GOALS: 3. Dora will call out appropriately for assistance and have no falls during hospitalizati on through 01/18/17 4. Dora's pain will be controlled to allow for activity and rest through 01/18/17 5. Dora will eat 75-100% most meals and accept health shakes through 01/18/17 6. Dora will have a bm qod while in rehab through 01/18/17 7. Dora will void w/o difficulties after catheter removal by 01/18/17 8. Dora's skin tears and abrasions will heal w/o s/sx infection 9. Dora will transfer with 1 person A by 01/10/17 10. Geovany will be SBA- setup for his ADLs & functional mobility by 01/25/17. STRATEGY TO ACHIEVE GOALS: -monitor for s/sx pain and medicate prn -monitor for s/sx infection, clean wounds prn and perform dressing changes prn -monitor bm's and medicate prn -encourage po intake and ensure pt is drinking health shakes -monitor voids and perform bladder scans -encourage independence with ambulation and ensure safe transfers - Active participation in OT sessions RESTRAINT-RELATED GOALS: STRATEGIES TO ACHIEVE RESTRAINT GOALS: Outcome: Improving Physical Therapy Plan of Care Treatment Note Summary: Pt kenneth pm PT session well w/ progress noted toward functional goals as evidenced by increasing independence w/ bed mob and transfers as well as increasing BLE strength and R OM. Refer below for details of functional levels. He continues to present w/ strength and RO M deficits, balance impairments, postural instability and pain at times that interferes w/ p t's ability to participate w/ therapies. Pt will benefit from continued PT interventions to promote increased independence w/ functional activities necessary for safe home discharge. Physical Therapy Discharge Recommendations are: Recommended discharge disposition: home with assist Post discharge physical therapy recommendation: home health, outpatient therapy, pt is mot ivated participant Equipment Recommendations: 2 wheeled walker (FWW) Planned Interventions: balance training, bed mobility training, gait training, home exerci se program, patient/family education, orthotic fitting/training, transfer training, wheelcha ir management/propulsion training, ROM (Range of Motion), stair training, strengthening Recommended Frequency: (1-2x/day) Patient Status/Goals: Reflects last filed data and may be from multiple contributors. Stairs Not addressed today Transfers continues w/ need for cuing for sequencing including cues to bring feet back toward chair b efore reaching out for FWW as his knees are not flexible enough to get feet back far enough prior to standing. Bed-Chair, Level of [place]: stand by assist Chair-Bed, Level of [place]: stand by assist [id number], Assistive Device: 2 wheeled walker (FWW), wheelchair Sit-Stand, Level of [place]: stand by assist, verbal cues required Stand-Sit, Level of [place]: stand by assist, verbal cues required [id number], Assistive Device: 2 wheeled walker (FWW) Maintain Weight Bearing Status: (WBAT) Safety Issues: weight-shifting ability decreased Impairments: decreased flexibility, ROM decreased, strength decreased, impaired balance Bed Mobility cuing initially for sequencing to facilitate increased independence, good return demo, pt c ontinues to take extra time Assistive Device: none Scoot/Bridge, Level of [place]: modified independent Supine to Sit, Level of [place]: modified independent Sit to Supine, Level of [place]: modified independent Safety Issues: decreased use of legs for bridging/pushing Impairments: decreased flexibility, ROM decreased, strength decreased Therapeutic Exercise hip/knee flex on orange ball, bridging w/ BLE on orange ball, lateral LE rotation w/ BLE on orange ball, 2x12 reps ea. Bed exercises: bilateral, hip abduction/adduction, heel slides, short arc quads, bridging Repetitions: 2x12 Functional Endurance continues to improve w/ ability to tolerate increasing distance for gait ROM L LE ROM: AAROM,hip 0-60, knee 0-80,pt observed to be sitting w/ hips close to 90, pt does have posterior pelvic tilt in sitting to avoid full 90 at hips R LE ROM: AAROM, hip 0-80, knee 0-90, pt observed to be sitting w/ hips close to 90, pt mcdonald s have posterior pelvic tilt in sitting to avoid full 90 at hips Strength L LE Strength: IP 2/5, quad 3-/5, HS 3+/5,DF/PF 5/5 R LE Strength: IP 3-/5, quad 3+/5, HS 4-/5, DF/PF 5/5 PT Goal Review Date Flowsheet Row Most Recent Value STG Review Date 01/08/17 at 01/01/2017 1115 LTG Review Date 01/22/17 at 01/01/2017 1115 All Bed Mobility Goal Flowsheet Row Most Recent Value STG Status discontinued at 01/04/2017 1200 STG [place] Level -- [.] at 01/04/2017 1200 LTG Status -- [.] at 01/04/2017 1200 LTG [place] Level -- [.] at 01/04/2017 1200 Roll Left/Right Goal Flowsheet Row Most Recent Value STG Status discontinued at 01/04/2017 1450 STG [place] Level -- [.] at 01/04/2017 1450 LTG Status -- [.] at 01/04/2017 1450 LTG [place] Level -- [.] at 01/04/2017 1450 Scoot/Bridge Goal Flowsheet Row Most Recent Value STG Status met at 01/04/2017 1200 STG [place] Level contact guard assist at 01/01/2017 1115 LTG Status met at 01/06/2017 1615 LTG [place] Level modified independent at 01/01/2017 1115 Xsxkgu-Wew-Mmeqmy Goal Flowsheet Row Most Recent Value STG Status met at 01/06/2017 1200 STG [place] Level contact guard assist at 01/01/2017 1115 STG Assistive Device bed rails at 01/01/2017 1115 LTG Status progressing at 01/06/2017 1615 LTG [place] Level modified independent at 01/01/2017 1115 LTG Assistive Device bed rails at 01/01/2017 1115 Vflzawubb-Xpm-Zenjnrxig Goal Flowsheet Row Most Recent Value STG Status discontinued at 01/04/2017 1200 STG [place] Level -- [.] at 01/04/2017 1200 STG Assistive Device -- [.] at 01/04/2017 1200 LTG Status -- [.] at 01/04/2017 1200 LTG [place] Level -- [.] at 01/04/2017 1200 All Transfers Goal Flowsheet Row Most Recent Value STG Status met at 01/04/2017 1200 STG [place] Level contact guard assist at 01/01/2017 1115 STG Comments Using Sanam Travis at 01/01/2017 1115 LTG Status progressing at 01/06/2017 1615 LTG [place] Level modified independent at 01/01/2017 1115 LTG Assistive Device 2 wheeled walker (FWW) at 01/01/2017 1115 Gait Goal Flowsheet Row Most Recent Value STG Status met at 01/05/2017 1200 STG [place] Level minimum assist (75% patient effort) at 01/01/2017 1115 STG Assistive Device 2 wheeled walker (FWW) at 01/01/2017 1115 STG Distance (feet) 15 at 01/01/2017 1115 LTG Status not addressed at 01/06/2017 1615 LTG [place] Level modified independent at 01/01/2017 1115 LTG Assistive Device 2 wheeled walker (FWW) at 01/01/2017 1115 LTG Distance (feet) 50 at 01/01/2017 1115 Stair Goal Flowsheet Row Most Recent Value STG Status not addressed at 01/06/2017 1615 STG [place] Level minimum assist (75% patient effort) at 01/01/2017 1115 STG Assistive Device 2 rails at 01/01/2017 1115 STG Number of Stairs 8 at 01/01/2017 1115 LTG Status continued at 01/03/2017 1200 LTG [place] Level modified independent at 01/01/2017 1115 LTG Assistive Device 2 rails at 01/01/2017 1115 LTG Number of Stairs 8 at 01/01/2017 1115 Wheelchair Goal Flowsheet Row Most Recent Value STG Status discontinued at 01/05/2017 1200 STG -- [.] at 01/05/2017 1200 LTG Status -- [.] at 01/05/2017 1200 Additional Goal #1 PT Flowsheet Row Most Recent Value STG Status met at 01/03/2017 1200 STG Pt will tolerate standing at Sanam Stedy x 1min w/ supervision only at 01/01/2017 1115 LTG Status met at 01/04/2017 1450 LTG pt kenneth standing with fww for 3 minutes supervised at 01/01/2017 1115 Electronically signed by: Domenica Griffith, PT, 01/06/2017 17:28 lan of Care - Yuliya Ross, OT - 01/06/2017 3:05 PM PDTProblem: Patient Care Overview (Adult) Goal: Care Team Goals & Evaluation PROBLEM-RELATED GOALS: 3. Dora will call out appropriately for assistance and have no falls during hospitalizati on through 01/18/17 4. Leighanns pain will be controlled to allow for activity and rest through 01/18/17 5. Dora will eat 75-100% most meals and accept health shakes through 01/18/17 6. Dora will have a bm qod while in rehab through 01/18/17 7. Dora will void w/o difficulties after catheter removal by 01/18/17 8. Leighanns skin tears and abrasions will heal w/o s/sx infection 9. Dora will transfer with 1 person A by 01/10/17 10. Geovany will be SBA- setup for his ADLs & functional mobility by 01/25/17. STRATEGY TO ACHIEVE GOALS: -monitor for s/sx pain and medicate prn -monitor for s/sx infection, clean wounds prn and perform dressing changes prn -monitor bm's and medicate prn -encourage po intake and ensure pt is drinking health shakes -monitor voids and perform bladder scans -encourage independence with ambulation and ensure safe transfers - Active participation in OT sessions RESTRAINT-RELATED GOALS: STRATEGIES TO ACHIEVE RESTRAINT GOALS: IRF Occupational Therapy Plan of Care Treatment Note Summary: Pt seen for after OT session to address MLM for bilateral lower extremity edema - demo'd MLM on pt, pt able to give good return demo and verbalized understanding. Pt also p erformed therex routine, see below for details. Pt displayed good tolerance of activities. Left pt with handouts for education for MLM and UB therex. Occupational Therapy Discharge Recommendations are: Recommended discharge disposition: home with assist Post discharge occupational therapy recommendation: pt is motivated participant, home heal th Equipment Recommendations: 2 wheeled walker (FWW), tub bench Planned Interventions:ADL retraining, strengthening, transfer training, bed mobility traini ng, IADL retraining, balance training, prosthetic fitting/training, ROM (Range of Motion) (e jeanine mgmt as indicated) Recommended Frequency: (6-7x/week) Patient Status/Goals: Reflects last filed data and may be from multiple contributors. Therapeutic Exercise Shoulder exercises: bilateral, ABDuction, ADDuction, internal rotation, external rotation Type of exercise: theraband, resistive Repetitions/ Resistance: 10 reps each Elbow exercises: bilateral, flexion, extension Type of exercise: theraband, resistive Repetitions/ Resistance: 10 of each Electronically signed by: Yuliya Ross OT, 01/06/2017 18:37 lan of Care - Domenica Lebron, PT - 01/06/2017 12:00 PM PDTFormatting of this note might be different from the o riginal. Problem: Patient Care Overview (Adult) Goal: Care Team Goals & Evaluation PROBLEM-RELATED GOALS: 3. Dora will call out appropriately for assistance and have no falls during hospitalizati on through 01/18/17 4. Dora's pain will be controlled to allow for activity and rest through 01/18/17 5. Dora will eat 75-100% most meals and accept health shakes through 01/18/17 6. Dora will have a bm qod while in rehab through 01/18/17 7. Dora will void w/o difficulties after catheter removal by 01/18/17 8. Leighanns skin tears and abrasions will heal w/o s/sx infection 9. Dora will transfer with 1 person A by 01/10/17 10. Geovany will be SBA- setup for his ADLs & functional mobility by 01/25/17. STRATEGY TO ACHIEVE GOALS: -monitor for s/sx pain and medicate prn -monitor for s/sx infection, clean wounds prn and perform dressing changes prn -monitor bm's and medicate prn -encourage po intake and ensure pt is drinking health shakes -monitor voids and perform bladder scans -encourage independence with ambulation and ensure safe transfers - Active participation in OT sessions RESTRAINT-RELATED GOALS: STRATEGIES TO ACHIEVE RESTRAINT GOALS: Outcome: Improving Physical Therapy Plan of Care Treatment Note Summary: Pt kenneth am PT session well w/ continued progress toward gait tolerance and diminis marian need for assistance w/ bed mob and transfers. He continues to present w/ strength and R OM deficits, postural instability, balance impairments, diminished functional activity nicole ance and pain at times that interferes with pt's ability to participate w/ therapies. Refer below for details of functional levels. He continues to be unable to meet his basic needs in dependently and in order to discharge home safely he will need to be able to mobilize w/o th e need of additional assistance. He will also need to be able to negotiate 8 steps to access his residence. Pt will benefit from continued PT interventions to promote increased indepen dence w/ functional activities necessary for safe home discharge. Physical Therapy Discharge Recommendations are: Recommended discharge disposition: home with assist Post discharge physical therapy recommendation: home health, outpatient therapy, pt is mot ivated participant Equipment Recommendations: 2 wheeled walker (FWW) Planned Interventions: balance training, bed mobility training, gait training, home exerci se program, patient/family education, orthotic fitting/training, transfer training, wheelcha ir management/propulsion training, ROM (Range of Motion), stair training, strengthening Recommended Frequency: (1-2x/day) Patient Status/Goals: Reflects last filed data and may be from multiple contributors. Gait close SBA d/t high fall risk and observed instability, able to complete w/c follow w/o need for 2nd person Level of [place]: stand by assist Assistive Device: 2 wheeled walker (FWW) Distance (feet): 20 x 5 Transfers cuing for sequencing, 2nd assist for w/c follow Bed-Chair, Level of [place]: contact guard assist, verbal cues required Chair-Bed, Level of [place]: contact guard assist, verbal cues required Cot-Ockbc-Kxr, Assistive Device: 2 wheeled walker (FWW), wheelchair Sit-Stand, Level of [place]: contact guard assist, verbal cues required Stand-Sit, Level of [place]: contact guard assist, verbal cues required Nwv-Rzovq-Fbc, Assistive Device: 2 wheeled walker (FWW) Maintain Weight Bearing Status: (WBAT) Safety Issues: weight-shifting ability decreased Impairments: decreased flexibility, ROM decreased, strength decreased, impaired balance Bed Mobility NT at this time as pt was received sitting in w/c Assistive Device: none Scoot/Bridge, Level of [place]: modified independent Supine to Sit, Level of [place]: modified independent Sit to Supine, Level of [place]: moderate assist (50% patient effort), verbal cues req uired Safety Issues: decreased use of legs for bridging/pushing Impairments: strength decreased, pain, decreased flexibility Functional Endurance continues to improve w/ ability to tolerate increasing distance for gait ROM BLEs unable to move actively through full range, pt reports pain in knees prevents movement at this time Strength Unable to formally assess BLE mms however he is able to support full body weight against gr avity x 60 seconds in Sanam Steady L LE Strength: grossly 3-/5 R LE Strength: grossly 3-/5 PT Goal Review Date Flowsheet Row Most Recent Value STG Review Date 01/08/17 at 01/01/2017 1115 LTG Review Date 01/22/17 at 01/01/2017 1115 All Bed Mobility Goal Flowsheet Row Most Recent Value STG Status discontinued at 01/04/2017 1200 STG [place] Level -- [.] at 01/04/2017 1200 LTG Status -- [.] at 01/04/2017 1200 LTG [place] Level -- [.] at 01/04/2017 1200 Roll Left/Right Goal Flowsheet Row Most Recent Value STG Status discontinued at 01/04/2017 1450 STG [place] Level -- [.] at 01/04/2017 1450 LTG Status -- [.] at 01/04/2017 1450 LTG [place] Level -- [.] at 01/04/2017 1450 Scoot/Bridge Goal Flowsheet Row Most Recent Value STG Status met at 01/04/2017 1200 STG [place] Level contact guard assist at 01/01/2017 1115 LTG Status continued at 01/05/2017 1200 LTG [place] Level modified independent at 01/01/2017 1115 Guufnd-Rqj-Ctcwcx Goal Flowsheet Row Most Recent Value STG Status met at 01/06/2017 1200 STG [place] Level contact guard assist at 01/01/2017 1115 STG Assistive Device bed rails at 01/01/2017 1115 LTG Status progressing at 01/06/2017 1200 LTG [place] Level modified independent at 01/01/2017 1115 LTG Assistive Device bed rails at 01/01/2017 1115 Bawolsgri-Nux-Aizgayijz Goal Flowsheet Row Most Recent Value STG Status discontinued at 01/04/2017 1200 STG [place] Level -- [.] at 01/04/2017 1200 STG Assistive Device -- [.] at 01/04/2017 1200 LTG Status -- [.] at 01/04/2017 1200 LTG [place] Level -- [.] at 01/04/2017 1200 All Transfers Goal Flowsheet Row Most Recent Value STG Status met at 01/04/2017 1200 STG [place] Level contact guard assist at 01/01/2017 1115 STG Comments Using Sanam Travis at 01/01/2017 1115 LTG Status progressing at 01/06/2017 1200 LTG [place] Level modified independent at 01/01/2017 1115 LTG Assistive Device 2 wheeled walker (FWW) at 01/01/2017 1115 Gait Goal Flowsheet Row Most Recent Value STG Status met at 01/05/2017 1200 STG [place] Level minimum assist (75% patient effort) at 01/01/2017 1115 STG Assistive Device 2 wheeled walker (FWW) at 01/01/2017 1115 STG Distance (feet) 15 at 01/01/2017 1115 LTG Status progressing at 01/06/2017 1200 LTG [place] Level modified independent at 01/01/2017 1115 LTG Assistive Device 2 wheeled walker (FWW) at 01/01/2017 1115 LTG Distance (feet) 50 at 01/01/2017 1115 Stair Goal Flowsheet Row Most Recent Value STG Status not addressed at 01/06/2017 1200 STG [place] Level minimum assist (75% patient effort) at 01/01/2017 1115 STG Assistive Device 2 rails at 01/01/2017 1115 STG Number of Stairs 8 at 01/01/2017 1115 LTG Status continued at 01/03/2017 1200 LTG [place] Level modified independent at 01/01/2017 1115 LTG Assistive Device 2 rails at 01/01/2017 1115 LTG Number of Stairs 8 at 01/01/2017 1115 Wheelchair Goal Flowsheet Row Most Recent Value STG Status discontinued at 01/05/2017 1200 STG -- [.] at 01/05/2017 1200 LTG Status -- [.] at 01/05/2017 1200 Additional Goal #1 PT Flowsheet Row Most Recent Value STG Status met at 01/03/2017 1200 STG Pt will tolerate standing at Sanam Stedy x 1min w/ supervision only at 01/01/2017 1115 LTG Status met at 01/04/2017 1450 LTG pt kenneth standing with fww for 3 minutes supervised at 01/01/2017 1115 Electronically signed by: Domenica Griffith, PT, 01/06/2017 17:10 lan of Care - Prema Michael RN - 01/06/2017 8:07 AM PDTProblem: Patient Care Overview (Adult) Goal: Care Team Goals & Evaluation PROBLEM-RELATED GOALS: 3. Dora will call out appropriately for assistance and have no falls during hospitalizati on through 01/18/17 4. Dora's pain will be controlled to allow for activity and rest through 01/18/17 5. Dora will eat 75-100% most meals and accept health shakes through 01/18/17 6. Dora will have a bm qod while in rehab through 01/18/17 7. Dora will void w/o difficulties after catheter removal by 01/18/17 8. Dora's skin tears and abrasions will heal w/o s/sx infection 9. Dora will transfer with 1 person A by 01/10/17 10. Geovany will be SBA- setup for his ADLs & functional mobility by 01/25/17. STRATEGY TO ACHIEVE GOALS: -monitor for s/sx pain and medicate prn -monitor for s/sx infection, clean wounds prn and perform dressing changes prn -monitor bm's and medicate prn -encourage po intake and ensure pt is drinking health shakes -monitor voids and perform bladder scans -encourage independence with ambulation and ensure safe transfers - Active participation in OT sessions RESTRAINT-RELATED GOALS: STRATEGIES TO ACHIEVE RESTRAINT GOALS: Outcome: Improving Goal Evaluation: Pt has been alert and oriented during the night, no changes noted to pt condition since hi s initial shift assessment. He did not require pain medication at all during the night and r eported only minor soreness to the right lower back. Pt continues to have good UO in his fol ey catheter and his last BM was on the . CMS remains intact and no s/s infection noted t o incisions. lan of Care - Sarba Gupta RN - 01/05/2017 4:34 PM PDTProblem: Patient Care Overview (Adult) Goal: Care Team Goals & Evaluation PROBLEM-RELATED GOALS: 3. oDra will call out appropriately for assistance and have no falls during hospitalizati on through 01/18/17 4. Dora's pain will be controlled to allow for activity and rest through 01/18/17 5. Dora will eat 75-100% most meals and accept health shakes through 01/18/17 6. Dora will have a bm qod while in rehab through 01/18/17 7. Dora will void w/o difficulties after catheter removal by 01/18/17 8. Dora's skin tears and abrasions will heal w/o s/sx infection 9. Dora will transfer with 1 person A by 01/10/17 10. Geovany will be SBA- setup for his ADLs & functional mobility by 01/25/17. STRATEGY TO ACHIEVE GOALS: -monitor for s/sx pain and medicate prn -monitor for s/sx infection, clean wounds prn and perform dressing changes prn -monitor bm's and medicate prn -encourage po intake and ensure pt is drinking health shakes -monitor voids and perform bladder scans -encourage independence with ambulation and ensure safe transfers - Active participation in OT sessions RESTRAINT-RELATED GOALS: STRATEGIES TO ACHIEVE RESTRAINT GOALS: Outcome: Improving Goal Evaluation: 3. Calling out appropriately for assistance, no falls 4. C/o pain to bilat thighs but mainly this afternoon c/o pain to right lower back, the tk n to lower back started after lunch, described pain as constant ache/sharp, rated pain 8/10 (highest pain rated since admission), repositioned in bed, rx oxycodone administered, ice pa cks placed, new order for robaxin administered and pain decreased to 2/10 after intervention s. Unable to tolerate afternoon therapies. Therapies as tolerated today. Repositioned in bed for comfort. 5. Eating 100% most meals today, drinking fluids w/o difficulties. Requested to take large pills with applesauce r/t "it helps w swallowing", no cough noted while swallowing current d iet. 6. LBM this morning in BR, reported medium soft/formed 7. F/c patent, no issues 8. Skin tears at various stages of healing, dressings changed today. Skin very dry, CeraVe lotion applied bid. Repositioning w mod A 9. Transferring w 1 person A, but depending on fatigue level using 1-2 person A+fww+gait be lt 10. Performing ADL's w 1-2 person A lan of Care - Maris Crenshaw, OT - 01/05/2017 3:49 PM PDTProblem: Patient Care Overview (Adult) Goal: Care Team Goals & Evaluation PROBLEM-RELATED GOALS: 3. Dora will call out appropriately for assistance and have no falls during hospitalizati on through 01/18/17 4. Leighanns pain will be controlled to allow for activity and rest through 01/18/17 5. Dora will eat 75-100% most meals and accept health shakes through 01/18/17 6. Dora will have a bm qod while in rehab through 01/18/17 7. Dora will void w/o difficulties after catheter removal by 01/18/17 8. Leighanns skin tears and abrasions will heal w/o s/sx infection 9. Dora will transfer with 1 person A by 01/10/17 10. Geovany will be SBA- setup for his ADLs & functional mobility by 01/25/17. STRATEGY TO ACHIEVE GOALS: -monitor for s/sx pain and medicate prn -monitor for s/sx infection, clean wounds prn and perform dressing changes prn -monitor bm's and medicate prn -encourage po intake and ensure pt is drinking health shakes -monitor voids and perform bladder scans -encourage independence with ambulation and ensure safe transfers - Active participation in OT sessions RESTRAINT-RELATED GOALS: STRATEGIES TO ACHIEVE RESTRAINT GOALS: Missed Visit Patient Information Patient Name: Dora Arellano Date of : 1930 Age: 86 y.o. The patient was unable to be seen for today's scheduled visit due to increased right low ba ck pain. Attempted to reposition to assist with pain management, and provided with ice pack to right low back. Nursing contacting MD for therapies as tolerated orders due to pain. Plan: Will resume therapy tomorrow as patient is able and pain is better controlled. Electronically signed by: Maris Crenshaw OT, 01/05/2017 15:48 lan of Care - Domenica Ji, PT - 01/05/2017 3:20 PM PDTProblem: Patient Care Overview (Adult) Goal: Care Team Goals & Evaluation PROBLEM-RELATED GOALS: 3. Dora will call out appropriately for assistance and have no falls during hospitalizati on through 01/18/17 4. Leighanns pain will be controlled to allow for activity and rest through 01/18/17 5. Dora will eat 75-100% most meals and accept health shakes through 01/18/17 6. Dora will have a bm qod while in rehab through 01/18/17 7. Dora will void w/o difficulties after catheter removal by 01/18/17 8. Leighanns skin tears and abrasions will heal w/o s/sx infection 9. Dora will transfer with 1 person A by 01/10/17 10. Geovany will be SBA- setup for his ADLs & functional mobility by 01/25/17. STRATEGY TO ACHIEVE GOALS: -monitor for s/sx pain and medicate prn -monitor for s/sx infection, clean wounds prn and perform dressing changes prn -monitor bm's and medicate prn -encourage po intake and ensure pt is drinking health shakes -monitor voids and perform bladder scans -encourage independence with ambulation and ensure safe transfers - Active participation in OT sessions RESTRAINT-RELATED GOALS: STRATEGIES TO ACHIEVE RESTRAINT GOALS: Missed Visit Patient Information Patient Name: Dora Arellano Date of : 1930 Age: 86 y.o. The patient was unable to be seen for today's scheduled visit due to sudden onset of back p ain which is preventing him from participating in any further therapies today. He was assist ed to reposition in bed to facilitate pain reduction. Nursing reported they would be contact ing . Plan: Cont PT tomorrow as able Electronically signed by: Domenica Griffith PT, 01/05/2017 16:05 lan of Care - Domenica Lebron PT - 01/05/2017 12:00 PM PDTFormatting of this note might be different from the o riginal. Problem: Patient Care Overview (Adult) Goal: Care Team Goals & Evaluation PROBLEM-RELATED GOALS: 3. Dora will call out appropriately for assistance and have no falls during hospitalizati on through 01/18/17 4. Leighanns pain will be controlled to allow for activity and rest through 01/18/17 5. Dora will eat 75-100% most meals and accept health shakes through 01/18/17 6. Dora will have a bm qod while in rehab through 01/18/17 7. Dora will void w/o difficulties after catheter removal by 01/18/17 8. Leighanns skin tears and abrasions will heal w/o s/sx infection 9. Dora will transfer with 1 person A by 01/10/17 10. Geovany will be SBA- setup for his ADLs & functional mobility by 01/25/17. STRATEGY TO ACHIEVE GOALS: -monitor for s/sx pain and medicate prn -monitor for s/sx infection, clean wounds prn and perform dressing changes prn -monitor bm's and medicate prn -encourage po intake and ensure pt is drinking health shakes -monitor voids and perform bladder scans -encourage independence with ambulation and ensure safe transfers - Active participation in OT sessions RESTRAINT-RELATED GOALS: STRATEGIES TO ACHIEVE RESTRAINT GOALS: Outcome: Improving Physical Therapy Plan of Care Treatment Note Summary: Pt kenneth am PT session well and continues to demonstrate steady progress toward fun ctional independence as evidenced by diminishing need for assistance w/ transfers and increa sing distance w/ gait. Refer below for details of functional levels. He continues to present w/ strength/ROM deficits, balance deficits, dynamic instability, diminished functional acti vity tolerance and pain w/ activity that limits ability to participate at times. Pt will stephanie efit from continued PT interventions to promote increased independence w/ functional activit ies necessary for safe home discharge. Physical Therapy Discharge Recommendations are: Recommended discharge disposition: home with assist Post discharge physical therapy recommendation: home health, outpatient therapy, pt is mot ivated participant Equipment Recommendations: 2 wheeled walker (FWW) Planned Interventions: balance training, bed mobility training, gait training, home exerci se program, patient/family education, orthotic fitting/training, transfer training, wheelcha ir management/propulsion training, ROM (Range of Motion), stair training, strengthening Recommended Frequency: (1-2x/day) Patient Status/Goals: Reflects last filed data and may be from multiple contributors. Gait cuing for sequencing w/ FWW, CGA d/t high fall risk and observed instability, 2nd assist fo r w/c follow Level of [place]: contact guard assist, 1 person + 1 person to manage equipment, verba l cues required Assistive Device: 2 wheeled walker (FWW) Distance (feet): 14+14+16+20 Stairs Not addressed today Transfers cuing for sequencing, 2nd assist for w/c follow Bed-Chair, Level of [place]: contact guard assist, verbal cues required Chair-Bed, Level of [place]: contact guard assist, verbal cues required Cul-Kopwa-Ygl, Assistive Device: 2 wheeled walker (FWW), wheelchair Sit-Stand, Level of [place]: minimal assist (75% patient effort), verbal cues required , 1 person + 1 person to manage equipment Stand-Sit, Level of [place]: contact guard assist, verbal cues required, 1 person + 1 person to manage equipment Dpd-Vuebs-Uuk, Assistive Device: 2 wheeled walker (FWW) Safety Issues: weight-shifting ability decreased Impairments: impaired balance, pain, decreased flexibility, ROM decreased Bed Mobility NT at this time as pt was received sitting in w/c Functional Endurance continues to improve w/ ability to tolerate increasing distance for gait ROM BLEs unable to move actively through full range, pt reports pain in knees prevents movement at this time Strength Unable to formally assess BLE mms however he is able to support full body weight against gr avity x 60 seconds in Sanam Steady L LE Strength: grossly 3-/5 R LE Strength: grossly 3-/5 PT Goal Review Date Flowsheet Row Most Recent Value STG Review Date 01/08/17 at 01/01/2017 1115 LTG Review Date 01/22/17 at 01/01/2017 1115 All Bed Mobility Goal Flowsheet Row Most Recent Value STG Status discontinued at 01/04/2017 1200 STG [place] Level -- [.] at 01/04/2017 1200 LTG Status -- [.] at 01/04/2017 1200 LTG [place] Level -- [.] at 01/04/2017 1200 Roll Left/Right Goal Flowsheet Row Most Recent Value STG Status discontinued at 01/04/2017 1450 STG [place] Level -- [.] at 01/04/2017 1450 LTG Status -- [.] at 01/04/2017 1450 LTG [place] Level -- [.] at 01/04/2017 1450 Scoot/Bridge Goal Flowsheet Row Most Recent Value STG Status met at 01/04/2017 1200 STG [place] Level contact guard assist at 01/01/2017 1115 LTG Status continued at 01/05/2017 1200 LTG [place] Level modified independent at 01/01/2017 1115 Ciyxnq-Uix-Tozvri Goal Flowsheet Row Most Recent Value STG Status continued at 01/05/2017 1200 STG [place] Level contact guard assist at 01/01/2017 1115 STG Assistive Device bed rails at 01/01/2017 1115 LTG Status progressing at 01/04/2017 1200 LTG [place] Level modified independent at 01/01/2017 1115 LTG Assistive Device bed rails at 01/01/2017 1115 Giqvenbkw-Ogh-Ockqljsmy Goal Flowsheet Row Most Recent Value STG Status discontinued at 01/04/2017 1200 STG [place] Level -- [.] at 01/04/2017 1200 STG Assistive Device -- [.] at 01/04/2017 1200 LTG Status -- [.] at 01/04/2017 1200 LTG [place] Level -- [.] at 01/04/2017 1200 All Transfers Goal Flowsheet Row Most Recent Value STG Status met at 01/04/2017 1200 STG [place] Level contact guard assist at 01/01/2017 1115 STG Comments Using Sanam Stedy at 01/01/2017 1115 LTG Status progressing at 01/05/2017 1200 LTG [place] Level modified independent at 01/01/2017 1115 LTG Assistive Device 2 wheeled walker (FWW) at 01/01/2017 1115 Gait Goal Flowsheet Row Most Recent Value STG Status met at 01/05/2017 1200 STG [place] Level minimum assist (75% patient effort) at 01/01/2017 1115 STG Assistive Device 2 wheeled walker (FWW) at 01/01/2017 1115 STG Distance (feet) 15 at 01/01/2017 1115 LTG Status progressing at 01/05/2017 1200 LTG [place] Level modified independent at 01/01/2017 1115 LTG Assistive Device 2 wheeled walker (FWW) at 01/01/2017 1115 LTG Distance (feet) 50 at 01/01/2017 1115 Stair Goal Flowsheet Row Most Recent Value STG Status not addressed at 01/05/2017 1200 STG [place] Level minimum assist (75% patient effort) at 01/01/2017 1115 STG Assistive Device 2 rails at 01/01/2017 1115 STG Number of Stairs 8 at 01/01/2017 1115 LTG Status continued at 01/03/2017 1200 LTG [place] Level modified independent at 01/01/2017 1115 LTG Assistive Device 2 rails at 01/01/2017 1115 LTG Number of Stairs 8 at 01/01/2017 1115 Wheelchair Goal Flowsheet Row Most Recent Value STG Status discontinued at 01/05/2017 1200 STG -- [.] at 01/05/2017 1200 LTG Status -- [.] at 01/05/2017 1200 Additional Goal #1 PT Flowsheet Row Most Recent Value STG Status met at 01/03/2017 1200 STG Pt will tolerate standing at Sanam Chemady x 1min w/ supervision only at 01/01/2017 1115 LTG Status met at 01/04/2017 1450 LTG pt kenneth standing with fww for 3 minutes supervised at 01/01/2017 1115 Electronically signed by: Domenica Griffith, PT, 01/05/2017 16:01 lan of Care - Angelique gastelum, Maris Horne, OT - 01/05/2017 11:57 AM PDT Problem: Patient Care Overview (Adult) Goal: Care Team Goals & Evaluation PROBLEM-RELATED GOALS: 3. Dora will call out appropriately for assistance and have no falls during hospitalizati on through 01/18/17 4. Dora's pain will be controlled to allow for activity and rest through 01/18/17 5. Dora will eat 75-100% most meals and accept health shakes through 01/18/17 6. Dora will have a bm qod while in rehab through 01/18/17 7. Dora will void w/o difficulties after catheter removal by 01/18/17 8. Leighanns skin tears and abrasions will heal w/o s/sx infection 9. Dora will transfer with 1 person A by 01/10/17 10. Geovany will be SBA- setup for his ADLs & functional mobility by 01/25/17. STRATEGY TO ACHIEVE GOALS: -monitor for s/sx pain and medicate prn -monitor for s/sx infection, clean wounds prn and perform dressing changes prn -monitor bm's and medicate prn -encourage po intake and ensure pt is drinking health shakes -monitor voids and perform bladder scans -encourage independence with ambulation and ensure safe transfers - Active participation in OT sessions RESTRAINT-RELATED GOALS: STRATEGIES TO ACHIEVE RESTRAINT GOALS: IRF Occupational Therapy Plan of Care Treatment Note Summary: Geovany seen for functional transfer in walk in shower, completed shower and dressin g see below for current status. Spoke with RN who asked we leave banages in place and then she would change them post shower. Post shower performed sit to leasing associate order to lower pant s and change bandage, Geovany stood for 4 mins in order to clean and change bandage on sacrum. Geovany is very motivated and will benefit from continued OT to improve ADL function and safety upon d/c. Occupational Therapy Discharge Recommendations are: Recommended discharge disposition: home with assist Post discharge occupational therapy recommendation: pt is motivated participant, home heal th Equipment Recommendations: 2 wheeled walker (FWW), tub bench Planned Interventions:ADL retraining, strengthening, transfer training, bed mobility traini ng, IADL retraining, balance training, prosthetic fitting/training, ROM (Range of Motion) (e jeanine mgmt as indicated) Recommended Frequency: (6-7x/week) Patient Status/Goals: Reflects last filed data and may be from multiple contributors. ADLs . Shower in shower room, able to complete full bathing with assist to obtain items. He was ab le to apply his cream to all areas with assist for back and feet. Bathing, Level of [place]: minimal assist (75% patient effort) Assistive Device: long-handled sponge, hand-held shower head Bathing Assess/Train, Position: sitting Bathing Assess/Train, Impairments: strength decreased, impaired balance Set up only. UB Dressing, Level of [place]: supervised, set up required Assistive Device: none UB Dressing Assess/Train, Position: sitting Assist to tread catherter bag through pant leg, assist for socks and treading feet into rankin ts due to space. LB Dressing, Level of [place]: moderate assist (50% patient effort) Assistive Device: casserole preparer LB Dressing Assess/Train, Position: sitting, supported standing LB Dressing Assess/Train, Impairments: decreased flexibility, pain Transfers Cues for sequencing transfer for safety. Bed-Chair, Level of [place]: minimal assist (75% patient effort) Chair-Bed, Level of [place]: minimal assist (75% patient effort) Ilt-Wxjpj-Rat, Assistive Device: wheelchair Sit-Stand, Level of [place]: moderate assist (50% patient effort) Stand-Sit, Level of [place]: moderate assist (50% patient effort) Wlc-Lrlns-Wyi, Assistive Device: 2 wheeled walker (FWW) Walk-in shower, Level of [place]: verbal cues required, moderate assist (50% patient e ffort) (2 people for safety due to space.) Walk-in shower, Assistive Device: shower chair Safety Issues: weight-shifting ability decreased Impairments: impaired balance, pain, decreased flexibility, ROM decreased OT Goal Review Date Flowsheet Row Most Recent Value STG Review Date 01/08/17 at 01/04/2017 1455 LTG Review Date 01/25/17 at 01/04/2017 1455 Grooming Goal Flowsheet Row Most Recent Value STG Status progressing at 01/05/2017 1154 STG [place] Level stand by assist at 01/04/2017 1455 STG Position sitting in chair [at sink] at 01/04/2017 1455 STG Adaptive Equipment none at 01/04/2017 1455 LTG Status progressing at 01/05/2017 1154 LTG [place] modified independent at 01/01/2017 1338 LTG Position -- [sitting at sink] at 01/04/2017 1455 Bathing Goal Flowsheet Row Most Recent Value STG Status continued, progressing at 01/05/2017 1154 STG [place] Level contact guard assist at 01/01/2017 1338 STG Adaptive Equpiment shower chair, tub bench at 01/01/2017 1338 LTG Status continued, progressing at 01/05/2017 1154 LTG [place] stand by assist at 01/01/2017 1338 UB Dressing Goal Flowsheet Row Most Recent Value STG Status continued at 01/05/2017 1154 STG [place] Level stand by assist at 01/01/2017 1338 LTG Status progressing at 01/05/2017 1154 LTG [place] Level set up required at 01/01/2017 1338 LB Dressing Goal Flowsheet Row Most Recent Value STG Status progressing at 01/05/2017 1154 STG [place] Level contact guard assist at 01/01/2017 1338 LTG Status progressing at 01/05/2017 1154 LTG [place] Level set up required at 01/01/2017 1338 Toileting Goal Flowsheet Row Most Recent Value STG Status not addressed at 01/05/2017 1154 STG [place] Level minimum assist (75% patient effort) at 01/01/2017 1338 LTG Status not addressed at 01/05/2017 1154 LTG [place] stand by assist at 01/01/2017 1338 Toilet Transfer Goal Flowsheet Row Most Recent Value STG Status met at 01/04/2017 1837 STG [place] Level minimum assist (75% patient effort) at 01/01/2017 1338 LTG Status not addressed at 01/05/2017 1154 LTG [place] supervised at 01/01/2017 1338 Tub/Shower Transfer Goal Flowsheet Row Most Recent Value Tub/Shower Type tub/shower combo at 01/03/2017 1909 STG Status progressing at 01/05/2017 1154 STG [place] Level minimum assist (75% patient effort) at 01/03/2017 1909 STG Assistive Device tub bench at 01/03/2017 1909 LTG Status progressing at 01/05/2017 1154 LTG [place] stand by assist at 01/03/2017 1909 LTG Assistive Device tub bench at 01/03/2017 1909 Electronically signed by: Maris Crenshaw OT, 01/05/2017 11:56 lan of Care - AlecPrema horne RN - 01/05/2017 4:51 AM PDTProblem: Patient Care Overview (Adult) Goal: Care Team Goals & Evaluation PROBLEM-RELATED GOALS: 3. Dora will call out appropriately for assistance and have no falls during hospitalizati on through 01/18/17 4. Dora's pain will be controlled to allow for activity and rest through 01/18/17 5. Dora will eat 75-100% most meals and accept health shakes through 01/18/17 6. Dora will have a bm qod while in rehab through 01/18/17 7. Dora will void w/o difficulties after catheter removal by 01/18/17 8. Dora's skin tears and abrasions will heal w/o s/sx infection 9. Dora will transfer with 1 person A by 01/10/17 10. Geovany will be SBA- setup for his ADLs & functional mobility by 01/25/17. STRATEGY TO ACHIEVE GOALS: -monitor for s/sx pain and medicate prn -monitor for s/sx infection, clean wounds prn and perform dressing changes prn -monitor bm's and medicate prn -encourage po intake and ensure pt is drinking health shakes -monitor voids and perform bladder scans -encourage independence with ambulation and ensure safe transfers - Active participation in OT sessions RESTRAINT-RELATED GOALS: STRATEGIES TO ACHIEVE RESTRAINT GOALS: Outcome: Improving Goal Evaluation: Geovany has been alert and oriented during the night. No changes to pt condition have been not ed since initial shift assessment; CMS is intact. He has denied the need for pain medication and states only mild soreness in bed. LBM was on the 14th and pt has been given some PRN aneudy wel medications earlier in the day. Urine output is adequate in the velarde catheter. Pt was n ot up and out of bed this shift. All skin tears are covered and no new tears or breakdown no darek. lan of Care - RaisamauriceCira dumont, OT - 01/04/2017 6:40 PM PDT Problem: Patient Care Overview (Adult) Goal: Care Team Goals & Evaluation PROBLEM-RELATED GOALS: 3. Dora will call out appropriately for assistance and have no falls during hospitalizati on through 01/18/17 4. Dora's pain will be controlled to allow for activity and rest through 01/18/17 5. Dora will eat 75-100% most meals and accept health shakes through 01/18/17 6. Dora will have a bm qod while in rehab through 01/18/17 7. Dora will void w/o difficulties after catheter removal by 01/18/17 8. Leighanns skin tears and abrasions will heal w/o s/sx infection 9. Dora will transfer with 1 person A by 01/10/17 10. Geovany will be SBA- setup for his ADLs & functional mobility by 01/25/17. STRATEGY TO ACHIEVE GOALS: -monitor for s/sx pain and medicate prn -monitor for s/sx infection, clean wounds prn and perform dressing changes prn -monitor bm's and medicate prn -encourage po intake and ensure pt is drinking health shakes -monitor voids and perform bladder scans -encourage independence with ambulation and ensure safe transfers - Active participation in OT sessions RESTRAINT-RELATED GOALS: STRATEGIES TO ACHIEVE RESTRAINT GOALS: Outcome: Improving IRF Occupational Therapy Plan of Care Treatment Note Summary: Pt encountered supine in bed, complaining of little pain. Pt required HOB raised and significant extra time to reach seated EOB. Pt required bed raised and min A to come to standing. Pt engaged in functional mobility ~ 24 feet and completed toilet transfer. Pt requ ired min A to rise from toilet. Pt required mod A to transfer seated to supine and was depen dent to engage in bed mobility d/t reported fatigue and increase in pain. Pt demonstrated ex cellent functional mobility and transfer progress this session. Pt will continue to benefit from skilled OT services to increase ADL independence and safety upon return to home. Occupational Therapy Discharge Recommendations are: Recommended discharge disposition: home with assist Post discharge occupational therapy recommendation: pt is motivated participant, home heal th Equipment Recommendations: 2 wheeled walker (FWW), tub bench Planned Interventions:ADL retraining, strengthening, transfer training, bed mobility traini ng, IADL retraining, balance training, prosthetic fitting/training, ROM (Range of Motion) (e jeanine mgmt as indicated) Recommended Frequency: (6-7x/week) Patient Status/Goals: Reflects last filed data and may be from multiple contributors. Cognitive Mood/Behavior: cooperative, calm, behavior appropriate to situation Orientation: oriented x 4 Speech: logical, spontaneous, clear Follows Commands/Answers Questions: 100% of the time Bed Mobility Requires assist for lifting legs today for bed mobility, does require significant extra alka e to complete. Assistive Device: HOB elevated Scoot/Bridge, Level of [place]: moderate assist (50% patient effort) Supine to Sit, Level of [place]: stand by assist Sit to Supine, Level of [place]: moderate assist (50% patient effort) Safety Issues: decreased use of legs for bridging/pushing Impairments: strength decreased, pain, decreased flexibility Transfers Cues for safe transfer including scooting to EOB and edge of chair in prep for standing. P itzel was fatigued this afternoon and required significant assist to stand, was able to stand on ly briefly before requiring seated rest break. Bed-Chair, Level of [place]: minimal assist (75% patient effort) Chair-Bed, Level of [place]: minimal assist (75% patient effort) Qki-[id number]-Sfj, Assistive Device: wheelchair Sit-Stand, Level of [place]: minimal assist (75% patient effort), verbal cues required Stand-Sit, Level of [place]: minimal assist (75% patient effort), verbal cues required Vio-Dvocu-Xde, Assistive Device: 2 wheeled walker (FWW) Toilet, Level of [place]: minimal assist (75% patient effort) Toilet, Assistive Device: seat riser (sanam steady) Walk-in shower, Level of [place]: dependent ( less than 25% patient effort), 2 person assist required, verbal cues required Walk-in shower, Assistive Device: shower chair (rolling, recliner) Tub, Level of [place]: contact guard assist Tub, Assistive Device: tub bench, wheelchair, grab bars Safety Issues: sequencing ability decreased, weight-shifting ability decreased, step length decreased Impairments: pain, impaired balance, strength decreased, decreased flexibility, motor contr ol impaired Strength L UE Strength: 4+/5 R UE Strength: 4+/5 OT Goal Review Date Flowsheet Row Most Recent Value STG Review Date 01/08/17 at 01/04/2017 1455 LTG Review Date 01/25/17 at 01/04/2017 1455 Grooming Goal Flowsheet Row Most Recent Value STG Status progressing at 01/04/2017 1837 STG [place] Level stand by assist at 01/04/2017 1455 STG Position sitting in chair [at sink] at 01/04/2017 1455 STG Adaptive Equipment none at 01/04/2017 1455 LTG Status progressing at 01/04/2017 1837 LTG [place] modified independent at 01/01/2017 1338 LTG Position -- [sitting at sink] at 01/04/2017 1455 Bathing Goal Flowsheet Row Most Recent Value STG Status progressing at 01/04/2017 1837 STG [place] Level contact guard assist at 01/01/2017 1338 STG Adaptive Equpiment shower chair, tub bench at 01/01/2017 1338 LTG Status progressing at 01/04/2017 1837 LTG [place] stand by assist at 01/01/2017 1338 UB Dressing Goal Flowsheet Row Most Recent Value STG Status progressing at 01/04/2017 1837 STG [place] Level stand by assist at 01/01/2017 1338 LTG Status progressing at 01/04/2017 1837 LTG [place] Level set up required at 01/01/2017 1338 LB Dressing Goal Flowsheet Row Most Recent Value STG Status progressing at 01/04/2017 1837 STG [place] Level contact guard assist at 01/01/2017 1338 LTG Status progressing at 01/04/2017 1837 LTG [place] Level set up required at 01/01/2017 1338 Toileting Goal Flowsheet Row Most Recent Value STG Status progressing at 01/04/2017 1837 STG [place] Level minimum assist (75% patient effort) at 01/01/2017 1338 LTG Status progressing at 01/04/2017 1837 LTG [place] stand by assist at 01/01/2017 1338 Toilet Transfer Goal Flowsheet Row Most Recent Value STG Status met at 01/04/2017 1837 STG [place] Level minimum assist (75% patient effort) at 01/01/2017 1338 LTG Status progressing at 01/04/2017 1837 LTG [place] Level supervised at 01/01/2017 1338 Tub/Shower Transfer Goal Flowsheet Row Most Recent Value Tub/Shower Type tub/shower combo at 01/03/2017 1909 STG Status progressing at 01/04/2017 1837 STG [place] Level minimum assist (75% patient effort) at 01/03/2017 1909 STG Assistive Device tub bench at 01/03/2017 1909 LTG Status progressing at 01/04/2017 1837 LTG [place] Level stand by assist at 01/03/2017 190 LTG Assistive Device tub bench at 01/03/2017 190 Electronically signed by: Cira Hurst OT, 01/04/2017 18:39 lan of Care - Sabra Gupta RN - 01/04/2017 4:48 PM PDTProblem: Patient Care Overview (Adult) Goal: Care Team Goals & Evaluation PROBLEM-RELATED GOALS: 3. Dora will call out appropriately for assistance and have no falls during hospitalizati on through 01/18/17 4. Dora's pain will be controlled to allow for activity and rest through 01/18/17 5. Dora will eat 75-100% most meals and accept health shakes through 01/18/17 6. Dora will have a bm qod while in rehab through 01/18/17 7. Dora will void w/o difficulties after catheter removal by 01/18/17 8. Dora's skin tears and abrasions will heal w/o s/sx infection 9. Dora will transfer with 1 person A by 01/10/17 10. Geovany will be SBA- setup for his ADLs & functional mobility by 01/25/17. STRATEGY TO ACHIEVE GOALS: -monitor for s/sx pain and medicate prn -monitor for s/sx infection, clean wounds prn and perform dressing changes prn -monitor bm's and medicate prn -encourage po intake and ensure pt is drinking health shakes -monitor voids and perform bladder scans -encourage independence with ambulation and ensure safe transfers - Active participation in OT sessions RESTRAINT-RELATED GOALS: STRATEGIES TO ACHIEVE RESTRAINT GOALS: Outcome: Improving Goal Evaluation: 3. Calling out appropriately for assistance, no falls 4. C/o minimal pain to bilat hips/thighs, described as intermittent ache, taking oxycodone prn and scheduled tramadol, good pain control, able to tolerate therapies and rested between therapies 5. Eating 75-100% most meals today, encouragement required this am with po intake, pt drink ing fluids w/o difficulties. On hydration protocol 6. LBM 01/02, senna, docusate given, will continue monitoring 7. F/c draining adequate amount urine, f/c patent 8. Skin tears and abrasions at various stages of healing, dressings c/d/i, other skin tears scabbed, no s/sx infection. Heels very cracked, CeraVe lotion applied to bilat heels and th roughout body to aid with dry skin moisture. All samy to incisions removed, incisions wel l approximated, open to air, no drainage 9. Transferring w 1 person mod I+fww 10. Performing ADL's w 1 person A lan of Care - Domenica Griffith, PT - 01/04/2017 2:50 PM PDTFormatting of this note might be different from the rand alberto. Problem: Patient Care Overview (Adult) Goal: Care Team Goals & Evaluation PROBLEM-RELATED GOALS: 3. Dora will call out appropriately for assistance and have no falls during hospitalizati on through 01/18/17 4. Dora's pain will be controlled to allow for activity and rest through 01/18/17 5. Dora will eat 75-100% most meals and accept health shakes through 01/18/17 6. Dora will have a bm qod while in rehab through 01/18/17 7. Dora will void w/o difficulties after catheter removal by 01/18/17 8. Leighanns skin tears and abrasions will heal w/o s/sx infection 9. Dora will transfer with 1 person A by 01/10/17 10. Geovany will be SBA- setup for his ADLs & functional mobility by 01/25/17. STRATEGY TO ACHIEVE GOALS: -monitor for s/sx pain and medicate prn -monitor for s/sx infection, clean wounds prn and perform dressing changes prn -monitor bm's and medicate prn -encourage po intake and ensure pt is drinking health shakes -monitor voids and perform bladder scans -encourage independence with ambulation and ensure safe transfers - Active participation in OT sessions RESTRAINT-RELATED GOALS: STRATEGIES TO ACHIEVE RESTRAINT GOALS: Outcome: Improving Physical Therapy Plan of Care Treatment Note Summary: Pt kenneth pm PT session well w/ progress toward functional goals as evidenced by dim inishing need for assistance w/ transfers and pt progressing to gait w/ FWW. Refer below for details of functional levels. PT session initiated outside as pt has not been outside since his initial admission over 2 weeks ago on 12/18/16. He worked on sit<>std transfers to back of concrete bench for support. Following this he returned to the Rehab floor and was able to progress to gait for the first time since his fall. He continues to present w/ strength and ROM deficits, balance deficits, postural instability, diminished functional activity tolera nce and pain w/ activity that limits ability to participate at times. He has verbalized feel ings of depression and "disgust" at times when he struggles to perform activities well and h as been encouraged to attempt to shift perspective to focus on improvements instead of focus ing on activities that he is unable to perform yet. Pt will benefit from continued PT interv entions to promote increased independence w/ functional activities necessary for safe home d ischarge. Physical Therapy Discharge Recommendations are: Recommended discharge disposition: home with assist Post discharge physical therapy recommendation: home health, outpatient therapy, pt is mot ivated participant Equipment Recommendations: 2 wheeled walker (FWW) Planned Interventions: balance training, bed mobility training, gait training, home exerci se program, patient/family education, orthotic fitting/training, transfer training, wheelcha ir management/propulsion training, ROM (Range of Motion), stair training, strengthening Recommended Frequency: (1-2x/day) Patient Status/Goals: Reflects last filed data and may be from multiple contributors. Gait cuing for sequencing w/ FWW, CGA d/t high fall risk and observed instability, 2nd assist fo r w/c follow Level of [place]: contact guard assist, 1 person + 1 person to manage equipment, verba l cues required Assistive Device: 2 wheeled walker (FWW) Distance (feet): 12 x 3 Transfers cues for sequencing, pt has difficulty transitioning R hand from w/c armrest to FWW, increa sed ease when moving R hand to FWW first but pt requires cuing for this as his tendency is t o move the L hand first Bed-Chair, Level of [place]: contact guard assist, verbal cues required Chair-Bed, Level of [place]: contact guard assist, verbal cues required [id number], Assistive Device: 2 wheeled walker (FWW), wheelchair Sit-Stand, Level of [place]: minimal assist (75% patient effort), verbal cues required Stand-Sit, Level of [place]: minimal assist (75% patient effort), verbal cues required [id number], Assistive Device: 2 wheeled walker (FWW) Maintain Weight Bearing Status: (WBAT) Safety Issues: weight-shifting ability decreased Impairments: impaired balance, pain, decreased flexibility, ROM decreased Bed Mobility cues for sequencing and physical assist for BLE's elevating back to bed Assistive Device: none Scoot/Bridge, Level of [place]: modified independent Supine to Sit, Level of [place]: modified independent Sit to Supine, Level of [place]: moderate assist (50% patient effort), verbal cues req uired Safety Issues: decreased use of legs for bridging/pushing Impairments: strength decreased, pain, decreased flexibility Functional Endurance significant improvement w/ pt now tolerating gait of 12' x 3 w/ FWW ROM BLEs unable to move actively through full range, pt reports pain in knees prevents movement at this time Strength L LE Strength: hip flex 3/5, quads 3+/5, HS 3+/5, DF/PF 4+/5 R LE Strength: hip flex 3+/5, quads 4/5, HS 3+/5, DF/PF 4+/5 PT Goal Review Date Flowsheet Row Most Recent Value STG Review Date 01/08/17 at 01/01/2017 1115 LTG Review Date 01/22/17 at 01/01/2017 1115 All Bed Mobility Goal Flowsheet Row Most Recent Value STG Status discontinued at 01/04/2017 1200 STG [place] Level -- [.] at 01/04/2017 1200 LTG Status -- [.] at 01/04/2017 1200 LTG [place] Level -- [.] at 01/04/2017 1200 Roll Left/Right Goal Flowsheet Row Most Recent Value STG Status discontinued at 01/04/2017 1450 STG [place] Level -- [.] at 01/04/2017 1450 LTG Status -- [.] at 01/04/2017 1450 LTG [place] Level -- [.] at 01/04/2017 1450 Scoot/Bridge Goal Flowsheet Row Most Recent Value STG Status met at 01/04/2017 1200 STG [place] Level contact guard assist at 01/01/2017 1115 LTG Status continued at 01/04/2017 1450 LTG [place] Level modified independent at 01/01/2017 1115 Tiuvfs-Pli-Quirnn Goal Flowsheet Row Most Recent Value STG Status continued [Pt not consistent w/ transitioning both directions] at 01/04/2017 14 50 STG [place] Level contact guard assist at 01/01/2017 1115 STG Assistive Device bed rails at 01/01/2017 1115 LTG Status progressing at 01/04/2017 1200 LTG [place] Level modified independent at 01/01/2017 1115 LTG Assistive Device bed rails at 01/01/2017 1115 Fdbvlzaea-Hvy-Eaajevkvx Goal Flowsheet Row Most Recent Value STG Status discontinued at 01/04/2017 1200 STG [place] Level -- [.] at 01/04/2017 1200 STG Assistive Device -- [.] at 01/04/2017 1200 LTG Status -- [.] at 01/04/2017 1200 LTG [place] Level -- [.] at 01/04/2017 1200 All Transfers Goal Flowsheet Row Most Recent Value STG Status met at 01/04/2017 1200 STG [place] Level contact guard assist at 01/01/2017 1115 STG Comments Using Sanam Travis at 01/01/2017 1115 LTG Status progressing at 01/04/2017 1450 LTG [place] Level modified independent at 01/01/2017 1115 LTG Assistive Device 2 wheeled walker (FWW) at 01/01/2017 1115 Gait Goal Flowsheet Row Most Recent Value STG Status progressing at 01/04/2017 1450 STG [place] Level minimum assist (75% patient effort) at 01/01/2017 1115 STG Assistive Device 2 wheeled walker (FWW) at 01/01/2017 1115 STG Distance (feet) 15 at 01/01/2017 1115 LTG Status continued at 01/03/2017 1200 LTG [place] Level modified independent at 01/01/2017 1115 LTG Assistive Device 2 wheeled walker (FWW) at 01/01/2017 1115 LTG Distance (feet) 50 at 01/01/2017 1115 Stair Goal Flowsheet Row Most Recent Value STG Status not addressed at 01/04/2017 1450 STG [place] Level minimum assist (75% patient effort) at 01/01/2017 1115 STG Assistive Device 2 rails at 01/01/2017 1115 STG Number of Stairs 8 at 01/01/2017 1115 LTG Status continued at 01/03/2017 1200 LTG [place] Level modified independent at 01/01/2017 1115 LTG Assistive Device 2 rails at 01/01/2017 1115 LTG Number of Stairs 8 at 01/01/2017 1115 Wheelchair Goal Flowsheet Row Most Recent Value STG Status not addressed at 01/04/2017 1450 STG pt self propell manual WC 50 ft supervised with BUEs at 01/01/2017 1115 LTG Status progressing at 01/01/2017 1625 Additional Goal #1 PT Flowsheet Row Most Recent Value STG Status met at 01/03/2017 1200 STG Pt will tolerate standing at Sanam Stedy x 1min w/ supervision only at 01/01/2017 1115 LTG Status met at 01/04/2017 1450 LTG pt kenneth standing with fww for 3 minutes supervised at 01/01/2017 1115 Electronically signed by: Domenica Griffith, PT, 01/04/2017 16:11 lan of Care - Domenica Lebron, PT - 01/04/2017 12:00 PM PDTFormatting of this note might be different from the o riginal. Problem: Patient Care Overview (Adult) Goal: Care Team Goals & Evaluation PROBLEM-RELATED GOALS: 3. Dora will call out appropriately for assistance and have no falls during hospitalizati on through 01/18/17 4. Dora's pain will be controlled to allow for activity and rest through 01/18/17 5. Dora will eat 75-100% most meals and accept health shakes through 01/18/17 6. Dora will have a bm qod while in rehab through 01/18/17 7. Dora will void w/o difficulties after catheter removal by 01/18/17 8. Dora's skin tears and abrasions will heal w/o s/sx infection 9. Dora will transfer with 1 person A by 01/10/17 10. Geovany will be SBA- setup for his ADLs & functional mobility by 01/25/17. STRATEGY TO ACHIEVE GOALS: -monitor for s/sx pain and medicate prn -monitor for s/sx infection, clean wounds prn and perform dressing changes prn -monitor bm's and medicate prn -encourage po intake and ensure pt is drinking health shakes -monitor voids and perform bladder scans -encourage independence with ambulation and ensure safe transfers - Active participation in OT sessions RESTRAINT-RELATED GOALS: STRATEGIES TO ACHIEVE RESTRAINT GOALS: Outcome: Improving Physical Therapy Plan of Care Treatment Note Summary: Pt kenneth am PT session well w/ report of reduced pain in BLE's compared with yester day however he was still having pain w/ movement, L>R. He demonstrated progress toward funct ional goals as evidenced by diminished need for assistance w/ bed mob and transfers and prog ression to use of FWW for transfers. Refer below for details of functional levels. He abimbola nues to present w/ strength/ROM deficits, balance impairments, diminished functional activit y tolerance and pain which limits his ability to participate at times. Pt will benefit from continued PT interventions to promote increased independence w/ functional activities necess gilbert for safe home discharge. Physical Therapy Discharge Recommendations are: Recommended discharge disposition: home with assist Post discharge physical therapy recommendation: home health, outpatient therapy, pt is mot ivated participant Equipment Recommendations: 2 wheeled walker (FWW) Planned Interventions: balance training, bed mobility training, gait training, home exerci se program, patient/family education, orthotic fitting/training, transfer training, wheelcha ir management/propulsion training, ROM (Range of Motion), stair training, strengthening Recommended Frequency: (1-2x/day) Patient Status/Goals: Reflects last filed data and may be from multiple contributors. Gait Pivot to chair and several steps backward w/ FWW Level of [place]: minimal assist (75% patient effort), 1 person + 1 person to manage e quipment, verbal cues required Assistive Device: 2 wheeled walker (FWW) Distance (feet): 3 Transfers cues for sequencing w/ FWW, assist for elevation from surface of bed, no physical assist fo r safe descent to chair, 2nd person present for guarding/safety Bed-Chair, Level of [place]: 1 person + 1 person to manage equipment, contact guard as sist, verbal cues required Chair-Bed, Level of [place]: (NT as pt was left seated in w/c) Mte-[id number]-[id number], Assistive Device: 2 wheeled walker (FWW), wheelchair Sit-Stand, Level of [place]: minimal assist (75% patient effort), 1 person + 1 person to manage equipment, verbal cues required Stand-Sit, Level of [place]: contact guard assist, 1 person + 1 person to manage equip ment, verbal cues required Xll-Urvbu-Gso, Assistive Device: 2 wheeled walker (FWW) Maintain Weight Bearing Status: (WBAT) Safety Issues: weight-shifting ability decreased Impairments: impaired balance, pain, decreased flexibility, ROM decreased Bed Mobility cuing for technique, no physical assist to get to eob today, Mod I for extra time and cuing , no need for bed rails Assistive Device: none Scoot/Bridge, Level of [place]: modified independent Supine to Sit, Level of [place]: modified independent Sit to Supine, Level of [place]: (NT as pt was left seated in w/c) Safety Issues: decreased use of legs for bridging/pushing Impairments: strength decreased, pain, decreased flexibility Therapeutic Exercise Pt able to take minimal resistance w/ all exercises despite pain Bed exercises: bilateral, ankle pumps, hip abduction/adduction, heel slides, short arc quad s, straight leg raises Functional Endurance fair-; d/t length of stay, immmobilization and general deconditioning, BLE pain/weakness ROM BLEs unable to move actively through full range, pt reports pain in knees prevents movement at this time Strength Unable to formally assess BLE mms however he is able to support full body weight against gr avity x 60 seconds in Sanam Steady L LE Strength: grossly 3-/5 R LE Strength: grossly 3-/5 PT Goal Review Date Flowsheet Row Most Recent Value STG Review Date 01/08/17 at 01/01/2017 1115 LTG Review Date 01/22/17 at 01/01/2017 1115 All Bed Mobility Goal Flowsheet Row Most Recent Value STG Status discontinued at 01/04/2017 1200 STG [place] Level -- [.] at 01/04/2017 1200 LTG Status -- [.] at 01/04/2017 1200 LTG [place] Level -- [.] at 01/04/2017 1200 Roll Left/Right Goal Flowsheet Row Most Recent Value STG Status not addressed at 01/04/2017 1200 STG [place] Level contact guard assist at 01/01/2017 1115 LTG Status continued at 01/03/2017 1200 LTG [place] Level modified independent at 01/01/2017 1115 Scoot/Bridge Goal Flowsheet Row Most Recent Value STG Status met at 01/04/2017 1200 STG [place] Level contact guard assist at 01/01/2017 1115 LTG Status progressing at 01/04/2017 1200 LTG [place] Level modified independent at 01/01/2017 1115 Doptsz-Orj-Wyhmnh Goal Flowsheet Row Most Recent Value STG Status met at 01/04/2017 1200 STG [place] Level contact guard assist at 01/01/2017 1115 STG Assistive Device bed rails at 01/01/2017 1115 LTG Status progressing at 01/04/2017 1200 LTG [place] Level modified independent at 01/01/2017 1115 LTG Assistive Device bed rails at 01/01/2017 1115 Etfmhodef-Luv-Kwimgfuqb Goal Flowsheet Row Most Recent Value STG Status discontinued at 01/04/2017 1200 STG [place] Level -- [.] at 01/04/2017 1200 STG Assistive Device -- [.] at 01/04/2017 1200 LTG Status -- [.] at 01/04/2017 1200 LTG [place] Level -- [.] at 01/04/2017 1200 All Transfers Goal Flowsheet Row Most Recent Value STG Status met at 01/04/2017 1200 STG [place] Level contact guard assist at 01/01/2017 1115 STG Comments Using Sanam Travis at 01/01/2017 1115 LTG Status progressing at 01/04/2017 1200 LTG [place] Level modified independent at 01/01/2017 1115 LTG Assistive Device 2 wheeled walker (FWW) at 01/01/2017 1115 Gait Goal Flowsheet Row Most Recent Value STG Status progressing at 01/04/2017 1200 STG [place] Level minimum assist (75% patient effort) at 01/01/2017 1115 STG Assistive Device 2 wheeled walker (FWW) at 01/01/2017 1115 STG Distance (feet) 15 at 01/01/2017 1115 LTG Status continued at 01/03/2017 1200 LTG [place] Level modified independent at 01/01/2017 1115 LTG Assistive Device 2 wheeled walker (FWW) at 01/01/2017 1115 LTG Distance (feet) 50 at 01/01/2017 1115 Stair Goal Flowsheet Row Most Recent Value STG Status not addressed at 01/04/2017 1200 STG [place] Level minimum assist (75% patient effort) at 01/01/2017 1115 STG Assistive Device 2 rails at 01/01/2017 1115 STG Number of Stairs 8 at 01/01/2017 1115 LTG Status continued at 01/03/2017 1200 LTG [place] Level modified independent at 01/01/2017 1115 LTG Assistive Device 2 rails at 01/01/2017 1115 LTG Number of Stairs 8 at 01/01/2017 1115 Wheelchair Goal Flowsheet Row Most Recent Value STG Status not addressed at 01/04/2017 1200 STG pt self propell manual WC 50 ft supervised with BUEs at 01/01/2017 1115 LTG Status progressing at 01/01/2017 1625 Additional Goal #1 PT Flowsheet Row Most Recent Value STG Status met at 01/03/2017 1200 STG Pt will tolerate standing at Sanam Stedy x 1min w/ supervision only at 01/01/2017 1115 LTG Status new at 01/01/2017 1115 LTG pt kenneth standing with fww for 3 minutes supervised at 01/01/2017 1115 Electronically signed by: Domenica Griffith, PT, 01/04/2017 13:58 lan of Care - Arely Pool COTA - 01/04/2017 10:33 AM PDTFormatting of this note might be different from t he original. Problem: Patient Care Overview (Adult) Goal: Care Team Goals & Evaluation PROBLEM-RELATED GOALS: 3. Dora will call out appropriately for assistance and have no falls during hospitalizati on through 01/18/17 4. Dora's pain will be controlled to allow for activity and rest through 01/18/17 5. Dora will eat 75-100% most meals and accept health shakes through 01/18/17 6. Dora will have a bm qod while in rehab through 01/18/17 7. Dora will void w/o difficulties after catheter removal by 01/18/17 8. Dora's skin tears and abrasions will heal w/o s/sx infection 9. Dora will transfer with 1 person A by 01/10/17 10. Geovany will be SBA- setup for his ADLs & functional mobility by 01/25/17. STRATEGY TO ACHIEVE GOALS: -monitor for s/sx pain and medicate prn -monitor for s/sx infection, clean wounds prn and perform dressing changes prn -monitor bm's and medicate prn -encourage po intake and ensure pt is drinking health shakes -monitor voids and perform bladder scans -encourage independence with ambulation and ensure safe transfers - Active participation in OT sessions RESTRAINT-RELATED GOALS: STRATEGIES TO ACHIEVE RESTRAINT GOALS: IRF Occupational Therapy Plan of Care Monthly Note Summary: Pt continues to demonstrate improvements with functional mobility. He has progre ssed from using a sanam steady for transfers to step pivot transfer using FWW. His Level of assist is inconsistant depending on his level of fatigue and pain. Occupational Therapy Discharge Recommendations are: Recommended discharge disposition: home with assist Post discharge occupational therapy recommendation: home health, pt is motivated participa nt (TBD) Equipment Recommendations: 2 wheeled walker (FWW), tub bench Planned Interventions:ADL retraining, strengthening, transfer training, bed mobility traini ng, IADL retraining, balance training, prosthetic fitting/training, ROM (Range of Motion) (e jeanine mgmt as indicated) Recommended Frequency: (6-7x/week) Patient Status/Goals: Reflects last filed data and may be from multiple contributors. ADLs . Sponge bath sitting at sink w/c level. assist to stand for hygiene. Pt applies his cream to all areas except his back and B heals, which he asks for assist with. Bathing, Level of [place]: minimal assist (75% patient effort) Assistive Device: long-handled sponge Bathing Assess/Train, Position: sitting, supported standing Bathing Assess/Train, Impairments: strength decreased, impaired balance no physical assist needed with UB dressing, just set up UB Dressing, Level of [place]: supervised, set up required Assistive Device: none UB Dressing Assess/Train, Position: sitting Pt requied assist to thread catheter bag through pant leg before donning. Assist for socks to greasy heals. LB Dressing, Level of [place]: moderate assist (50% patient effort) Assistive Device: casserole preparer LB Dressing Assess/Train, Position: sitting, supported standing LB Dressing Assess/Train, Impairments: decreased flexibility, pain did not address this AM Toileting, Level of [place]: moderate assist (50% patient effort) no assist with sitting at sink Grooming, Level of [place]: supervised Assistive Device: none Grooming Assess/Train, Position: sitting Grooming Assess/Train, Impairments: strength decreased, impaired balance, pain Transfers Bed-Chair, Level of [place]: minimal assist (75% patient effort) Chair-Bed, Level of [place]: minimal assist (75% patient effort) Ygk-Hqwtz-Kps, Assistive Device: wheelchair Sit-Stand, Level of [place]: minimal assist (75% patient effort), verbal cues required Stand-Sit, Level of [place]: contact guard assist, verbal cues required Cpr-Xocgd-Ouv, Assistive Device: 2 wheeled walker (FWW) Safety Issues: sequencing ability decreased, weight-shifting ability decreased, step length decreased Impairments: pain, impaired balance, strength decreased, decreased flexibility, motor contr ol impaired OT Goal Review Date Flowsheet Row Most Recent Value STG Review Date 01/08/17 at 01/04/2017 1455 LTG Review Date 01/25/17 at 01/04/2017 1455 Grooming Goal Flowsheet Row Most Recent Value STG Status revised at 01/04/2017 1455 STG [place] Level stand by assist at 01/04/2017 1455 STG Position sitting in chair [at sink] at 01/04/2017 1455 STG Adaptive Equipment none at 01/04/2017 1455 LTG Status progressing at 01/03/2017 1030 LTG [place] Level modified independent at 01/01/2017 1338 LTG Position -- [sitting at sink] at 01/04/2017 1455 Bathing Goal Flowsheet Row Most Recent Value STG Status progressing at 01/03/2017 1030 STG [place] Level contact guard assist at 01/01/2017 1338 STG Adaptive Equpiment shower chair, tub bench at 01/01/2017 1338 LTG Status progressing at 01/03/2017 1030 LTG [place] Level stand by assist at 01/01/2017 1338 UB Dressing Goal Flowsheet Row Most Recent Value STG Status met at 01/03/2017 1030 STG [place] Level stand by assist at 01/01/2017 1338 LTG Status progressing at 01/03/2017 1030 LTG [place] Level set up required at 01/01/2017 1338 LB Dressing Goal Flowsheet Row Most Recent Value STG Status progressing at 01/03/2017 1030 STG [place] Level contact guard assist at 01/01/2017 1338 LTG Status progressing at 01/03/2017 1030 LTG [place] Level set up required at 01/01/2017 1338 Toileting Goal Flowsheet Row Most Recent Value STG Status progressing at 01/03/2017 1030 STG [place] Level minimum assist (75% patient effort) at 01/01/2017 1338 LTG Status progressing at 01/03/2017 1030 LTG [place] Level stand by assist at 01/01/2017 1338 Toilet Transfer Goal Flowsheet Row Most Recent Value STG Status progressing at 01/03/2017 1030 STG [place] Level minimum assist (75% patient effort) at 01/01/2017 1338 LTG Status progressing at 01/03/2017 1030 LTG [place] Level supervised at 01/01/2017 1338 Tub/Shower Transfer Goal Flowsheet Row Most Recent Value Tub/Shower Type tub/shower combo at 01/03/2017 1909 STG Status new at 01/03/2017 1909 STG [place] Level minimum assist (75% patient effort) at 01/03/2017 1909 STG Assistive Device tub bench at 01/03/2017 1909 LTG Status new at 01/03/2017 1909 LTG [place] Level stand by assist at 01/03/2017 1909 LTG Assistive Device tub bench at 01/03/2017 1909 Electronically signed by: Arely Pool, Certified Health Care Marketing Manager, 2016 10:33 lan of Care - Salvatore ramirez, Prema Moncada RN - 01/04/2017 6:43 AM PDTProblem: Patient Care Overview (Adult) Goal: Care Team Goals & Evaluation PROBLEM-RELATED GOALS: 3. Dora will call out appropriately for assistance and have no falls during hospitalizati on through 01/18/17 4. Dora's pain will be controlled to allow for activity and rest through 01/18/17 5. Dora will eat 75-100% most meals and accept health shakes through 01/18/17 6. Dora will have a bm qod while in rehab through 01/18/17 7. Dora will void w/o difficulties after catheter removal by 01/18/17 8. Dora's skin tears and abrasions will heal w/o s/sx infection 9. Dora will transfer with 1 person A by 01/10/17 10. Geovany will be SBA- setup for his ADLs & functional mobility by 01/25/17. STRATEGY TO ACHIEVE GOALS: -monitor for s/sx pain and medicate prn -monitor for s/sx infection, clean wounds prn and perform dressing changes prn -monitor bm's and medicate prn -encourage po intake and ensure pt is drinking health shakes -monitor voids and perform bladder scans -encourage independence with ambulation and ensure safe transfers - Active participation in OT sessions RESTRAINT-RELATED GOALS: STRATEGIES TO ACHIEVE RESTRAINT GOALS: Outcome: Improving Goal Evaluation: Geovany has been alert and oriented throughout the shift. He denied the need for pain medicati ons and reported mild ache in bilateral hips when in bed. No changes were noted to pt condit ion from initial shift assessment. Assisted with repositioning in bed a little bit during e night to prevent breakdown. Skin tears are all covered with mepilex and dressings were iris nged yesterday on day shift. Pt continues with a catheter now due to continued retention. LB M was 01/02/17. He was not OOB during the shift. Incisions were open to air and were well anthony roximated. lan of Care - Catarina Saldivar RN - 01/03/2017 9:40 PM PDTProblem: Patient Care Overview (Adult) Goal: Care Team Goals & Evaluation PROBLEM-RELATED GOALS: 3. Dora will call out appropriately for assistance and have no falls during hospitalizati on through 01/18/17 4. Dora's pain will be controlled to allow for activity and rest through 01/18/17 5. Dora will eat 75-100% most meals and accept health shakes through 01/18/17 6. Dora will have a bm qod while in rehab through 01/18/17 7. Dora will void w/o difficulties and not require IC by 01/03/17 8. Dora's skin tears and abrasions will heal w/o s/sx infection 9. Dora will transfer with 1 person A by 01/10/17 10. Geovany will be SBA- setup for his ADLs & functional mobility by 01/25/17. STRATEGY TO ACHIEVE GOALS: -monitor for s/sx pain and medicate prn -monitor for s/sx infection, clean wounds prn and perform dressing changes prn -monitor bm's and medicate prn -encourage po intake and ensure pt is drinking health shakes -monitor voids and perform bladder scans -encourage independence with ambulation and ensure safe transfers - Active participation in OT sessions RESTRAINT-RELATED GOALS: STRATEGIES TO ACHIEVE RESTRAINT GOALS: Outcome: Improving Goal Evaluation: pt Alert and oriented,[place] -no hearing aids present, c/o increase in pain with therapy, m edicated prior with oxy, HRI, LS-C RA, BT+ BM 01/02, meds given, velarde cath placed today d/t urinary retention, 2 per asst with sanam steady, WBAT, fatigued after AM therapy, All dressin g changed today after shower = Skin tears to 2- Right upper thigh, left upper tight, right F A, Left FA, Left upper anterior chest, Left elbow, B/L LE incision open to air, healing wel l, Samy noted to right lateral distal thigh (just above knee) no redness - Reported to [place]/RN [facility] - these appear to have been missed during previous removal - she will follow up , Right Heel thick dry callous w/ 3 deep cracks- cream applied - pt states this is chronic. lan of Care - Azra Payan RN - 01/03/2017 4:03 PM PDTPatient interviewed, plan of care reviewed. [place] n of care appropriate for patient. Indwelling urethral catheter was placed due to continued urinary retention and Flomax was started today. Electronically signed by: Azra Payan RN CRRN 01/03/2017 16:06 lan of Care - Domenica Lebron, PT - 01/03/2017 3:30 PM PDTFormatting of this note might be different from the o riginal. Problem: Patient Care Overview (Adult) Goal: Care Team Goals & Evaluation PROBLEM-RELATED GOALS: 3. Dora will call out appropriately for assistance and have no falls during hospitalizati on through 01/18/17 4. Dora's pain will be controlled to allow for activity and rest through 01/18/17 5. Dora will eat 75-100% most meals and accept health shakes through 01/18/17 6. Dora will have a bm qod while in rehab through 01/18/17 7. Dora will void w/o difficulties and not require IC by 01/03/17 8. Leighanns skin tears and abrasions will heal w/o s/sx infection 9. Dora will transfer with 1 person A by 01/10/17 10. Geovany will be SBA- setup for his ADLs & functional mobility by 01/25/17. STRATEGY TO ACHIEVE GOALS: -monitor for s/sx pain and medicate prn -monitor for s/sx infection, clean wounds prn and perform dressing changes prn -monitor bm's and medicate prn -encourage po intake and ensure pt is drinking health shakes -monitor voids and perform bladder scans -encourage independence with ambulation and ensure safe transfers - Active participation in OT sessions RESTRAINT-RELATED GOALS: STRATEGIES TO ACHIEVE RESTRAINT GOALS: Outcome: Unchanged Physical Therapy Plan of Care Treatment Note Summary: Pt reported significant increase in pain and weakness of BLE's this pm and stated he thought he over did it earlier today. Pt was encouraged to take more pain med to allow f or improved participation, as he currently is using very little. He acknowledged the importa nce of pain control thru medication and admitted he may not be taking enough as he is nervou s about becoming "addicted" to it. He continues to present w/ ROM and strength deficits dyn balance impairments, postural instability, diminished functional activity tolerance and high levels of pain. Barriers to discharge: continued need of assist of 2 people for completion of basic needs, steps to access residence, inability of to provide physical assist. Pt will benefit from continued PT interventions to promote increased independence w/ functional activities necessary for safe home discharge. Physical Therapy Discharge Recommendations are: Recommended discharge disposition: home with assist Post discharge physical therapy recommendation: home health, outpatient therapy, pt is mot ivated participant Equipment Recommendations: 2 wheeled walker (FWW) Planned Interventions: balance training, bed mobility training, gait training, home exerci se program, patient/family education, orthotic fitting/training, transfer training, wheelcha ir management/propulsion training, ROM (Range of Motion), stair training, strengthening Recommended Frequency: (1-2x/day) Patient Status/Goals: Reflects last filed data and may be from multiple contributors. Therapeutic Exercise STM w/ MLM BLE's w/ emphasis on proximal lateral thighs, gentle AAROM w/ passive end range stretch bilat hips and knees Bed exercises: bilateral, ankle pumps, quad sets, glut sets, hip abduction/adduction, heel slides, short arc quads Repetitions: 10 Functional Endurance fair-; d/t length of stay, immmobilization and general deconditioning, BLE pain/weakness ROM BLEs unable to move actively through full range, pt reports pain in knees and hips prevents movement at this time Strength Unable to formally assess BLE mms however he is able to support full body weight against gr avity x 60 seconds in Sanam Steady L LE Strength: grossly 3-/5 R LE Strength: grossly 3-/5 PT Goal Review Date Flowsheet Row Most Recent Value STG Review Date 01/08/17 at 01/01/2017 1115 LTG Review Date 01/22/17 at 01/01/2017 1115 All Bed Mobility Goal Flowsheet Row Most Recent Value STG Status progressing at 01/03/2017 1200 STG [place] Level contact guard assist at 01/01/2017 1115 LTG Status continued at 01/03/2017 1200 LTG [place] Level modified independent at 01/01/2017 1115 Roll Left/Right Goal Flowsheet Row Most Recent Value STG Status progressing at 01/03/2017 1200 STG [place] Level contact guard assist at 01/01/2017 1115 LTG Status continued at 01/03/2017 1200 LTG [place] Level modified independent at 01/01/2017 1115 Scoot/Bridge Goal Flowsheet Row Most Recent Value STG Status met at 01/03/2017 1200 STG [place] Level contact guard assist at 01/01/2017 1115 LTG Status progressing at 01/03/2017 1200 LTG [place] Level modified independent at 01/01/2017 1115 Eaaofu-Eit-Mrosut Goal Flowsheet Row Most Recent Value STG Status progressing at 01/03/2017 1200 STG [place] Level contact guard assist at 01/01/2017 1115 STG Assistive Device bed rails at 01/01/2017 1115 LTG Status continued at 01/03/2017 1200 LTG [place] Level modified independent at 01/01/2017 1115 LTG Assistive Device bed rails at 01/01/2017 1115 Rffrebjiw-Ese-Smkgrmyjm Goal Flowsheet Row Most Recent Value STG Status progressing at 01/03/2017 1200 STG [place] Level contact guard assist at 01/01/2017 1115 LTG Status continued at 01/03/2017 1200 LTG [place] Level modified independent at 01/01/2017 1115 All Transfers Goal Flowsheet Row Most Recent Value STG Status progressing at 01/03/2017 1200 STG [place] Level contact guard assist at 01/01/2017 1115 STG Comments Using Sanam Travis at 01/01/2017 1115 LTG Status continued at 01/03/2017 1200 LTG [place] Level modified independent at 01/01/2017 1115 LTG Assistive Device 2 wheeled walker (FWW) at 01/01/2017 1115 Gait Goal Flowsheet Row Most Recent Value STG Status progressing at 01/03/2017 1200 STG [place] Level minimum assist (75% patient effort) at 01/01/2017 1115 STG Assistive Device 2 wheeled walker (FWW) at 01/01/2017 1115 STG Distance (feet) 15 at 01/01/2017 1115 LTG Status continued at 01/03/2017 1200 LTG [place] Level modified independent at 01/01/2017 1115 LTG Assistive Device 2 wheeled walker (FWW) at 01/01/2017 1115 LTG Distance (feet) 50 at 01/01/2017 1115 Stair Goal Flowsheet Row Most Recent Value STG Status progressing at 01/03/2017 1200 STG [place] Level minimum assist (75% patient effort) at 01/01/2017 1115 STG Assistive Device 2 rails at 01/01/2017 1115 STG Number of Stairs 8 at 01/01/2017 1115 LTG Status continued at 01/03/2017 1200 LTG [place] Level modified independent at 01/01/2017 1115 LTG Assistive Device 2 rails at 01/01/2017 1115 LTG Number of Stairs 8 at 01/01/2017 1115 Wheelchair Goal Flowsheet Row Most Recent Value STG Status not addressed at 01/03/2017 1200 STG pt self propell manual WC 50 ft supervised with BUEs at 01/01/2017 1115 LTG Status progressing at 01/01/2017 1625 Additional Goal #1 PT Flowsheet Row Most Recent Value STG Status met at 01/03/2017 1200 STG Pt will tolerate standing at Sanam Stedy x 1min w/ supervision only at 01/01/2017 1115 LTG Status new at 01/01/2017 1115 LTG pt kenneth standing with fww for 3 minutes supervised at 01/01/2017 1115 Electronically signed by: Domenica Griffith, PT, 01/03/2017 18:24 lan of Care - Yuliya Ross, OT - 01/03/2017 2:20 PM PDTProblem: Patient Care Overview (Adult) Goal: Care Team Goals & Evaluation PROBLEM-RELATED GOALS: 3. Dora will call out appropriately for assistance and have no falls during hospitalizati on through 01/18/17 4. Leighanns pain will be controlled to allow for activity and rest through 01/18/17 5. Dora will eat 75-100% most meals and accept health shakes through 01/18/17 6. Dora will have a bm qod while in rehab through 01/18/17 7. Dora will void w/o difficulties and not require IC by 01/03/17 8. Leighanns skin tears and abrasions will heal w/o s/sx infection 9. Dora will transfer with 1 person A by 01/10/17 10. Geovany will be SBA- setup for his ADLs & functional mobility by 01/25/17. STRATEGY TO ACHIEVE GOALS: -monitor for s/sx pain and medicate prn -monitor for s/sx infection, clean wounds prn and perform dressing changes prn -monitor bm's and medicate prn -encourage po intake and ensure pt is drinking health shakes -monitor voids and perform bladder scans -encourage independence with ambulation and ensure safe transfers - Active participation in OT sessions RESTRAINT-RELATED GOALS: STRATEGIES TO ACHIEVE RESTRAINT GOALS: IRF Occupational Therapy Plan of Care Treatment Note Summary: Dora has been participating in occupational therapy for treatment of activity t olerance and independence in fxl mobility after LLE bilateral fractures. Patient demonstrat es objective improvements with bed mobility. Dora continues to have functional impairment s with activity tolerance sean during standing activities. Pt was able to complete standing activities only briefly and fatigued/had pain within several seconds, needing to sit. Jonel holguin notified of pain level. Dora will benefit from skilled OT to address impairments and to improve independence and safety. Remaining barriers to discharge include decreased ability sean in afternoon to perform fxl transfers. Pt did state he had attempted chair to bed sanders sfer on his own without therapies or nursing in room - discussed importance of calling when he needs to transfer. Pt did state he understands why he needs to call after difficulty thi s afternoon with fxl transfers. Emphasis of session on UB strengthening as fatigue/pain wer e an issue for continued LB standing tolerance, refer below for specific details regarding m obility and therex. Occupational Therapy Discharge Recommendations are: Recommended discharge disposition: home with assist Post discharge occupational therapy recommendation: home health, pt is motivated participa nt (TBD) Equipment Recommendations: 2 wheeled walker (FWW), tub bench Planned Interventions:ADL retraining, strengthening, transfer training, bed mobility traini ng, IADL retraining, balance training, prosthetic fitting/training, ROM (Range of Motion) (e jeanine mgmt as indicated) Recommended Frequency: (6-7x/week) Patient Status/Goals: Reflects last filed data and may be from multiple contributors. Therapeutic Exercise Shoulder exercises: bilateral, ABDuction, ADDuction, internal rotation, external rotation Type of exercise: resistive, theraband Repetitions/ Resistance: 15 reps of each Elbow exercises: bilateral, flexion, extension Type of exercise: theraband, resistive Repetitions/ Resistance: 15 of each Bed Mobility Requires assist for lifting legs today for bed mobility, does require significant extra alka e to complete. Assistive Device: HOB elevated Supine to Sit, Level of [place]: minimal assist (75% patient effort), verbal cues requ ired Sit to Supine, Level of [place]: minimal assist (75% patient effort), set up required Safety Issues: decreased use of arms for pushing/pulling, decreased use of legs for bridgin g/pushing, impaired trunk control for bed mobility Impairments: decreased flexibility, strength decreased, impaired balance, pain Transfers Cues for safe transfer including scooting to EOB and edge of chair in prep for standing. P itzel was fatigued this afternoon and required significant assist to stand, was able to stand on ly briefly before requiring seated rest break. Bed-Chair, Level of [place]: verbal cues required, minimal assist (75% patient effort) , 2 person assist required Chair-Bed, Level of [place]: minimal assist (75% patient effort), verbal cues required , set up required [id number], Assistive Device: wheelchair Sit-Stand, Level of [place]: moderate assist (50% patient effort), 2 person assist req uired, verbal cues required Stand-Sit, Level of [place]: verbal cues required, minimal assist (75% patient effort) [id number], Assistive Device: 2 wheeled walker (FWW) Safety Issues: sequencing ability decreased, weight-shifting ability decreased, step length decreased Impairments: pain, impaired balance, strength decreased, decreased flexibility, motor contr ol impaired Electronically signed by: Yuliya Ross OT, 01/03/2017 18:09 lan of Care - ShantiDomenica martinez, PT - 01/03/2017 11:45 AM PDTFormatting of this note might be different from the o riginal. Problem: Patient Care Overview (Adult) Goal: Care Team Goals & Evaluation PROBLEM-RELATED GOALS: 3. Dora will call out appropriately for assistance and have no falls during hospitalizati on through 01/18/17 4. Dora's pain will be controlled to allow for activity and rest through 01/18/17 5. Dora will eat 75-100% most meals and accept health shakes through 01/18/17 6. Dora will have a bm qod while in rehab through 01/18/17 7. Dora will void w/o difficulties and not require IC by 01/03/17 8. Dora's skin tears and abrasions will heal w/o s/sx infection 9. Dora will transfer with 1 person A by 01/10/17 10. Geovany will be SBA- setup for his ADLs & functional mobility by 01/25/17. STRATEGY TO ACHIEVE GOALS: -monitor for s/sx pain and medicate prn -monitor for s/sx infection, clean wounds prn and perform dressing changes prn -monitor bm's and medicate prn -encourage po intake and ensure pt is drinking health shakes -monitor voids and perform bladder scans -encourage independence with ambulation and ensure safe transfers - Active participation in OT sessions RESTRAINT-RELATED GOALS: STRATEGIES TO ACHIEVE RESTRAINT GOALS: Outcome: Improving Physical Therapy Plan of Care Treatment Note Summary: Pt kenneth pm PT session well w/ progress toward functional goals as evidenced by dim inishing need for assistance w/ bed mob and transfers and increasing tolerance for standing activities w/ advancement to gait in // bars. Refer below for details of functional levels. He continues to present w/ strength and ROM deficits, balance impairments, diminished funct ional activities and high levels of pain which can limit his participation at times. Barrier s to discharge include 8 steps to access residence, very little assist at home, continued ne ed for 2 person assist w/ all standing activities d/t high risk of falls from BLE instabilit y. Pt will benefit from continued PT interventions to promote increased independence w/ func tional activities necessary for safe home discharge. Physical Therapy Discharge Recommendations are: Recommended discharge disposition: home with assist Post discharge physical therapy recommendation: home health, outpatient therapy, pt is mot ivated participant Equipment Recommendations: 2 wheeled walker (FWW) Planned Interventions: balance training, bed mobility training, gait training, home exerci se program, patient/family education, orthotic fitting/training, transfer training, wheelcha ir management/propulsion training, ROM (Range of Motion), stair training, strengthening Recommended Frequency: (1-2x/day) Patient Status/Goals: Reflects last filed data and may be from multiple contributors. Gait gait in // bars w/ cues for sequencing and hand placement, assist d/t BLE instability, taki ng possibly 50% wt thru BLE's Level of [place]: contact guard assist, 2 person assist required, verbal cues required Assistive Device: (// bars) Distance (feet): 5 x 4 forward and backward Stairs 4 inch step ups in // bars alternating toe touch onto step, followed by full step ups onto step w/ alternating feet, cuing for sequencing Number of Stairs: 10 Handrail Location: both sides Level of [place]: minimal assist (75% patient effort), 2 person assist required, verba l cues required Assistive Device: (// bars) Technique Used: step to step (ascending), step to step (descending) Maintain Weight Bearing Status: cues to maintain weight bearing status Safety Issues: balance decreased during turns Impairments: pain, impaired balance, strength decreased, motor control impaired, decreased flexibility, ROM decreased Transfers cuing for scooting to edge of chair prior to stand and cuing for hand placement on armrests for controlled descent. slight asssist w/ stand to facilitate ant wt shift over feet and tr ansition of R hand from armrest to bar Bed-Chair, Level of [place]: verbal cues required, minimal assist (75% patient effort) , 2 person assist required Chair-Bed, Level of [place]: (NT as pt left in w/c) Jor-Vfnro-Hmw, Assistive Device: wheelchair Sit-Stand, Level of [place]: 1 person + 1 person to manage equipment, minimal assist ( 75% patient effort), verbal cues required Stand-Sit, Level of [place]: stand by assist, verbal cues required [id number], Assistive Device: (// bars) Maintain Weight Bearing Status: (WBAT) Safety Issues: sequencing ability decreased, weight-shifting ability decreased, step length decreased Impairments: pain, impaired balance, strength decreased, decreased flexibility, motor contr ol impaired Bed Mobility cuing for sequencing, assist w/ elevation of trunk. Pt able to bridge to don shorts w/o phy sical assist Assistive Device: bed rails Scoot/Bridge, Level of [place]: modified independent Supine to Sit, Level of [place]: minimal assist (75% patient effort) Sit to Supine, Level of [place]: (NT as pt was left seated in w/c) Safety Issues: decreased use of arms for pushing/pulling, decreased use of legs for bridgi ng/pushing, impaired trunk control for bed mobility Impairments: decreased flexibility, strength decreased, impaired balance, pain Therapeutic Exercise 4" step ups in // bars, refer to stair section for details ROM BLEs unable to move actively through full range, pt reports pain in knees prevents movement at this time Strength L LE Strength: grossly 3-/5 R LE Strength: grossly 3-/5 PT Goal Review Date Flowsheet Row Most Recent Value STG Review Date 01/08/17 at 01/01/2017 1115 LTG Review Date 01/22/17 at 01/01/2017 1115 All Bed Mobility Goal Flowsheet Row Most Recent Value STG Status progressing at 01/03/2017 1200 STG [place] Level contact guard assist at 01/01/2017 1115 LTG Status continued at 01/03/2017 1200 LTG [place] Level modified independent at 01/01/2017 1115 Roll Left/Right Goal Flowsheet Row Most Recent Value STG Status progressing at 01/03/2017 1200 STG [place] Level contact guard assist at 01/01/2017 1115 LTG Status continued at 01/03/2017 1200 LTG [place] Level modified independent at 01/01/2017 1115 Scoot/Bridge Goal Flowsheet Row Most Recent Value STG Status met at 01/03/2017 1200 STG [place] Level contact guard assist at 01/01/2017 1115 LTG Status progressing at 01/03/2017 1200 LTG [place] Level modified independent at 01/01/2017 1115 Lqorzo-Fxh-Afpgjr Goal Flowsheet Row Most Recent Value STG Status progressing at 01/03/2017 1200 STG [place] Level contact guard assist at 01/01/2017 1115 STG Assistive Device bed rails at 01/01/2017 1115 LTG Status continued at 01/03/2017 1200 LTG [place] Level modified independent at 01/01/2017 1115 LTG Assistive Device bed rails at 01/01/2017 1115 Ofmddkkzi-Zkq-Zmqvfsvqv Goal Flowsheet Row Most Recent Value STG Status progressing at 01/03/2017 1200 STG [place] Level contact guard assist at 01/01/2017 1115 LTG Status continued at 01/03/2017 1200 LTG [place] Level modified independent at 01/01/2017 1115 All Transfers Goal Flowsheet Row Most Recent Value STG Status progressing at 01/03/2017 1200 STG [place] Level contact guard assist at 01/01/2017 1115 STG Comments Using Sanam Travis at 01/01/2017 1115 LTG Status continued at 01/03/2017 1200 LTG [place] Level modified independent at 01/01/2017 1115 LTG Assistive Device 2 wheeled walker (FWW) at 01/01/2017 1115 Gait Goal Flowsheet Row Most Recent Value STG Status progressing at 01/03/2017 1200 STG [place] Level minimum assist (75% patient effort) at 01/01/2017 1115 STG Assistive Device 2 wheeled walker (FWW) at 01/01/2017 1115 STG Distance (feet) 15 at 01/01/2017 1115 LTG Status continued at 01/03/2017 1200 LTG [place] Level modified independent at 01/01/2017 1115 LTG Assistive Device 2 wheeled walker (FWW) at 01/01/2017 1115 LTG Distance (feet) 50 at 01/01/2017 1115 Stair Goal Flowsheet Row Most Recent Value STG Status progressing at 01/03/2017 1200 STG [place] Level minimum assist (75% patient effort) at 01/01/2017 1115 STG Assistive Device 2 rails at 01/01/2017 1115 STG Number of Stairs 8 at 01/01/2017 1115 LTG Status continued at 01/03/2017 1200 LTG [place] Level modified independent at 01/01/2017 1115 LTG Assistive Device 2 rails at 01/01/2017 1115 LTG Number of Stairs 8 at 01/01/2017 1115 Wheelchair Goal Flowsheet Row Most Recent Value STG Status not addressed at 01/03/2017 1200 STG pt self propell manual WC 50 ft supervised with BUEs at 01/01/2017 1115 LTG Status progressing at 01/01/2017 1625 Additional Goal #1 PT Flowsheet Row Most Recent Value STG Status met at 01/03/2017 1200 STG Pt will tolerate standing at Sanam Stedy x 1min w/ supervision only at 01/01/2017 1115 LTG Status new at 01/01/2017 1115 LTG pt kenneth standing with fww for 3 minutes supervised at 01/01/2017 1115 Electronically signed by: Domenica Griffith, PT, 01/03/2017 15:50 lan of Care - Arely Pool COTA - 01/03/2017 10:30 AM PDTFormatting of this note might be different from t he original. Problem: Patient Care Overview (Adult) Goal: Care Team Goals & Evaluation PROBLEM-RELATED GOALS: 3. Dora will call out appropriately for assistance and have no falls during hospitalizati on through 01/18/17 4. Dora's pain will be controlled to allow for activity and rest through 01/18/17 5. Dora will eat 75-100% most meals and accept health shakes through 01/18/17 6. Dora will have a bm qod while in rehab through 01/18/17 7. Dora will void w/o difficulties and not require IC by 01/03/17 8. Dora's skin tears and abrasions will heal w/o s/sx infection 9. Dora will transfer with 1 person A by 01/10/17 10. Geovany will be SBA- setup for his ADLs & functional mobility by 01/25/17. STRATEGY TO ACHIEVE GOALS: -monitor for s/sx pain and medicate prn -monitor for s/sx infection, clean wounds prn and perform dressing changes prn -monitor bm's and medicate prn -encourage po intake and ensure pt is drinking health shakes -monitor voids and perform bladder scans -encourage independence with ambulation and ensure safe transfers - Active participation in OT sessions RESTRAINT-RELATED GOALS: STRATEGIES TO ACHIEVE RESTRAINT GOALS: IRF Occupational Therapy Plan of Care Treatment Note Summary: Pt agreeable to shower this AM. Notified nursing skin split on R heal, Nuring OK 's removal of all dressings for shower this AM. Pt presented with increased independence w ith functional mobility during tranfers this AM using with low pivot transfers to/fom w/c an d tub. Notified nursing when pt was back in bed for wound care. Pt continues to have incre ased pain with L LE wt bearing and movement, Pt continues to need skilled OT intervention fo r increaseing independence and reducing burden of care for family members. Occupational Therapy Discharge Recommendations are: Recommended discharge disposition: home with assist Post discharge occupational therapy recommendation: home health, pt is motivated participa nt (TBD) Equipment Recommendations: 2 wheeled walker (FWW), tub bench Planned Interventions:ADL retraining, strengthening, transfer training, bed mobility traini ng, IADL retraining, balance training, prosthetic fitting/training, ROM (Range of Motion) (e jeanine mgmt as indicated) Recommended Frequency: (6-7x/week) Patient Status/Goals: Reflects last filed data and may be from multiple contributors. ADLs . Pt stood with Min A, using grab bars, he maintained standing balance but needed assist fo r jose care Bathing, Level of [place]: minimal assist (75% patient effort) Assistive Device: hand-held shower head, long-handled sponge, tub bench Bathing Assess/Train, Position: sitting, supported standing Bathing Assess/Train, Impairments: strength decreased, impaired balance no physical assist needed with UB dressing, just set up UB Dressing, Level of [place]: set up required, supervised Assistive Device: none UB Dressing Assess/Train, Position: sitting Min A to stand using grab bars in tub, pre unable to let go to doff/don clothing from hips , pt using EA for LB dressing over feet, vc's for techniqu, he can pull clothing up to thig hs LB Dressing, Level of [place]: moderate assist (50% patient effort) Assistive Device: casserole preparer LB Dressing Assess/Train, Position: sitting, supported standing LB Dressing Assess/Train, Impairments: decreased flexibility, pain did not address this AM Toileting, Level of [place]: moderate assist (50% patient effort) no assist with sitting at sink Grooming, Level of [place]: supervised Assistive Device: none Grooming Assess/Train, Position: sitting Grooming Assess/Train, Impairments: strength decreased, impaired balance, pain Transfers Cues for safe transfer including scooting to EOB and edge of chair in prep for standing. P t was fatigued this afternoon and required significant assist to stand, was able to stand on ly briefly before requiring seated rest break. Bed-Chair, Level of [place]: verbal cues required, minimal assist (75% patient effort) , 2 person assist required Chair-Bed, Level of [place]: minimal assist (75% patient effort), verbal cues required , set up required Hla-Lnfyl-Ofe, Assistive Device: wheelchair Sit-Stand, Level of [place]: moderate assist (50% patient effort), 2 person assist req uired, verbal cues required Stand-Sit, Level of [place]: verbal cues required, minimal assist (75% patient effort) Rug-Whvor-Eoe, Assistive Device: 2 wheeled walker (FWW) Toilet, Level of [place]: moderate assist (50% patient effort) Toilet, Assistive Device: seat riser (sanam steady) Tub, Level of [place]: contact guard assist Tub, Assistive Device: tub bench, wheelchair, grab bars Safety Issues: sequencing ability decreased, weight-shifting ability decreased, step length decreased Impairments: pain, impaired balance, strength decreased, decreased flexibility, motor contr ol impaired OT Goal Review Date Flowsheet Row Most Recent Value STG Review Date 01/08/17 at 01/01/2017 1338 LTG Review Date 01/25/17 at 01/01/2017 1338 Grooming Goal Flowsheet Row Most Recent Value STG Status new at 01/01/2017 1338 STG Position sitting in chair at 01/01/2017 1338 LTG Status progressing at 01/03/2017 1030 LTG [place] Level modified independent at 01/01/2017 1338 Bathing Goal Flowsheet Row Most Recent Value STG Status progressing at 01/03/2017 1030 STG [place] Level contact guard assist at 01/01/2017 1338 STG Adaptive Equpiment shower chair, tub bench at 01/01/2017 1338 LTG Status progressing at 01/03/2017 1030 LTG [place] Level stand by assist at 01/01/2017 1338 UB Dressing Goal Flowsheet Row Most Recent Value STG Status met at 01/03/2017 1030 STG [place] Level stand by assist at 01/01/2017 1338 LTG Status progressing at 01/03/2017 1030 LTG [place] Level set up required at 01/01/2017 1338 LB Dressing Goal Flowsheet Row Most Recent Value STG Status progressing at 01/03/2017 1030 STG [place] Level contact guard assist at 01/01/2017 1338 LTG Status progressing at 01/03/2017 1030 LTG [place] Level set up required at 01/01/2017 1338 Toileting Goal Flowsheet Row Most Recent Value STG Status progressing at 01/03/2017 1030 STG [place] Level minimum assist (75% patient effort) at 01/01/2017 1338 LTG Status progressing at 01/03/2017 1030 LTG [place] Level stand by assist at 01/01/2017 1338 Toilet Transfer Goal Flowsheet Row Most Recent Value STG Status progressing at 01/03/2017 1030 STG [place] Level minimum assist (75% patient effort) at 01/01/2017 1338 LTG Status progressing at 01/03/2017 1030 LTG [place] Level supervised at 01/01/2017 1338 Electronically signed by: Arely Pool, Certified Health Care Marketing Manager, 2016 10:30 lan of Care - Wy Eric Schwartz Chaplain - 01/03/2017 9:56 AM PDTProblem: Patient Care Overview (Adult) Goal: Care Team Goals & Evaluation PROBLEM-RELATED GOALS: 3. Dora will call out appropriately for assistance and have no falls during hospitalizati on through 01/18/17 4. Dora's pain will be controlled to allow for activity and rest through 01/18/17 5. Dora will eat 75-100% most meals and accept health shakes through 01/18/17 6. Dora will have a bm qod while in rehab through 01/18/17 7. Dora will void w/o difficulties and not require IC by 01/03/17 8. Dora's skin tears and abrasions will heal w/o s/sx infection 9. Dora will transfer with 1 person A by 01/10/17 10. Geovany will be SBA- setup for his ADLs & functional mobility by 01/25/17. STRATEGY TO ACHIEVE GOALS: -monitor for s/sx pain and medicate prn -monitor for s/sx infection, clean wounds prn and perform dressing changes prn -monitor bm's and medicate prn -encourage po intake and ensure pt is drinking health shakes -monitor voids and perform bladder scans -encourage independence with ambulation and ensure safe transfers - Active participation in OT sessions RESTRAINT-RELATED GOALS: STRATEGIES TO ACHIEVE RESTRAINT GOALS: Spiritual Care Dora Arellano is a 86 y.o. male who is admitted for Right femur fx, Left peritrochant maureen fx This is my first visit with the patient. Dora Arellano was awake and alert at the time of the visit. He lives in [place] and his depends on others to bring her to visit. He stated she visits every day. Spiritual Evaluation: Patient stated no shinto preference, but appreciates spiritual care support. Spiritual Interventions: Engaged in social conversation; active listening and pastoral support was provided. Our visit was cut short as staff arrived to address care issues. Spiritual Outcomes: Patient expressed appreciation for the visit. Spiritual Goals/Followup: Will see the patient as requested. If there are any other spiritual care issues that arise, please contact viscose department worker. atient Car e Conference - Sajan Hernandez MD - 01/03/2017 9:49 AM PDTFormatting of this note migh t be different from the original. [facility] Inpatient Rehabilitation Facility Individualized Overall Plan of Care Weekly Team Conference Patient Identification Dora Arellano is a 86 y.o. male. : 1930 Admit Date: 12/31/2016 Attending Provider: Sajan Hernandez MD Primary Care Physician: Carlos Alberto Galeas MD Admitting Diagnosis: Right femur fx, Left peritrochanteric fx Team Conference Date: 01/04/2017 Medical Prognosis and need for Rehabilitation Physician oversight and anticipated Rehabilit ation Physician interventions: [place] for functional progress is good. Physician Summary: Mr. Arellano is a 86-year-old man with a history of a fib admitted 12/18/16 after a GLF resulti ng in right mid-shaft femoral and left intertrochanteric femur fractures resulting in impair ed mobility, transfers, and self-care. Pt now has deficits in coordination, ambulation, st rength, ADLs, and IADLs. Patients exam also consistent with a moderate peripheral neuropat hy, which likely explains the progressively impaired balance the past few years. Patient h as multiple co-morbidities, and is medically complex requiring [...] diphenhydramine, benzodiazepines, scopolamine, and metoclopram manuel. Limit LADLE WATCHER active medications using lowest effective dose. -Implement environmental modifications (window bed, maintain well-lit room during day, minimize nighttime disturbance, and keep calendars and clock visible). -OOB to chair TID with meals if able. #Urinary retention - U/A normal on admit, given age most likely BPH. Place velarde again -Start tamsulosin 0.4mg daily #Bilateral femur fractures - pain stable -WBAT BLE's -Cont PRN and oxycodone for pain #DVT prophylaxis: -see [facility] above Code Status: No Code. Rehabilitation Nursing Summary: Alert, oriented. Calls appropriately for assistance. Repor ts minimal pain at rest, increased during therapies so is medicated prior to therapies. No n ew skin issues. Incisions healing well, open to air. Skin tears to bilateral upper thighs, r ight forearm, left upper chest, left elbow redressed 01/03, all healing. 3 deep cracks to rig ht heel which patient reports as chronic issues; cream applied. Indwelling urethral catheter placed 01/03 due to continued urinary retention; receiving Flomax. Last bowel movement , meds administered. 2-person assist with transfers for nursing. Sleeping well. Safety Management: Elopement/wander risk: No General Risk Interventions: Cognitive Impairment Interventions: Altered Eliminations/Toileting interventions: Safety Management Goal: pt will call out 100% of the time for assistance and have no falls during hospitalization Pain Management: Pain ratin-5/10 Pain Management Goal: pain will be controlled to allow for activity and rest Skin Management: Arie Score: (!) 17 Skin Management Goal: skin tears and abrasions will heal w/o s/sx infection Bladder Management: FIM BladderScore: 1; Evidence: 1 Do Velarde Maintainance # Bladder accidents last 7 days: 0 Bladder Management Goal: pt will void w/o difficulties and not require to be IC Bowel Management: FIM Bowel Score: 6; Evidence: 6 Medication [place] # Bowel accidents last 7 days: 0 Bowel Management Goal: pt will be continent of bowel using prn rx, bm in BR and/or BSC Nutrition Management: Nutrition Management Goal: pt will eat 75% most meals and drink adequate amount fluids Pts intake has improved overall, he is eating 50-100% of a general diet. He is making menu selections and continues to receive nutritional supplements tid. Fluid intake per I/O show s [id number] for the past 2 days. Will continue to follow as needed. Nightime Management: Nighttime Management Goal: pt will report adequate amount sleep and will call out for assi stance 100% of the time during the night Mobility Summary: Pt is pleasant and cooperative w/ all PT sessions w/ progress toward fun ctional goals as evidenced by diminishing need for assistance w/ bed mob and transfers and i ncreasing tolerance for standing activities w/ advancement to gait in // bars. He continues to present w/ strength and ROM deficits, balance impairments, diminished functional activiti es and high levels of pain which can limit his participation at times. Barriers to discharge include 8 steps to access residence, very little assist at home as pt's is virtually b delicia and would be unable to provide any physical assist, and continued need for 2 person ass ist w/ all standing activities d/t high risk of falls from BLE instability. Transfers FIM Bed/Chair/Wheelchair Score: 1; Evidence:1 Two Helpers FIM Toilet Transfer Score: 3; Evidence: 3 Assist to pivot FIM Tub/Shower Transfer Score: 4; Evidence: 4 Steadying Assist Locomotion FIM Walk Score: 1; Evidence: 1 Walks <50 ft, 1 Two Helpers FIM Distance Walked(feet): 5 feet FIM Wheelchair Score: 1; Evidence: WC Manual, 1 Travels <50 ft Level of [place]: minimal assist (75% patient effort) Propulsion Technique: bilateral UE's (min. BLE use) Components: brakes Components Management Assistance: minimum assist/contact guard assist (75% patients effort ) Wheelchair Mobility Comments: Pt requires Sup with set up, vc for brake mgmt, Surya d/t to fatigue this sessoin with returning to room. FIM Stairs Score :1; Evidence: 1 Two Helpers PT GOALS PT Goal Review Date Flowsheet Row Most Recent Value STG Review Date 01/08/17 at 01/01/2017 1115 LTG Review Date 01/22/17 at 01/01/2017 1115 All Bed Mobility Goal Flowsheet Row Most Recent Value STG Status progressing at 01/03/2017 1200 STG [place] Level contact guard assist at 01/01/2017 1115 LTG Status continued at 01/03/2017 1200 LTG [place] Level modified independent at 01/01/2017 1115 Roll Left/Right Goal Flowsheet Row Most Recent Value STG Status progressing at 01/03/2017 1200 STG [place] Level contact guard assist at 01/01/2017 1115 LTG Status continued at 01/03/2017 1200 LTG [place] Level modified independent at 01/01/2017 1115 Scoot/Bridge Goal Flowsheet Row Most Recent Value STG Status met at 01/03/2017 1200 STG [place] Level contact guard assist at 01/01/2017 1115 LTG Status progressing at 01/03/2017 1200 LTG [place] Level modified independent at 01/01/2017 1115 Wlegjq-Lri-Pyfdja Goal Flowsheet Row Most Recent Value STG Status progressing at 01/03/2017 1200 STG [place] Level contact guard assist at 01/01/2017 1115 STG Assistive Device bed rails at 01/01/2017 1115 LTG Status continued at 01/03/2017 1200 LTG [place] Level modified independent at 01/01/2017 1115 LTG Assistive Device bed rails at 01/01/2017 1115 Zpjodsxdk-Ucd-Fjnndtqdf Goal Flowsheet Row Most Recent Value STG Status progressing at 01/03/2017 1200 STG [place] Level contact guard assist at 01/01/2017 1115 LTG Status continued at 01/03/2017 1200 LTG [place] Level modified independent at 01/01/2017 1115 All Transfers Goal Flowsheet Row Most Recent Value STG Status progressing at 01/03/2017 1200 STG [place] Level contact guard assist at 01/01/2017 1115 STG Comments Using Sanam Travis at 01/01/2017 1115 LTG Status continued at 01/03/2017 1200 LTG [place] Level modified independent at 01/01/2017 1115 LTG Assistive Device 2 wheeled walker (FWW) at 01/01/2017 1115 Gait Goal Flowsheet Row Most Recent Value STG Status progressing at 01/03/2017 1200 STG [place] Level minimum assist (75% patient effort) at 01/01/2017 1115 STG Assistive Device 2 wheeled walker (FWW) at 01/01/2017 1115 STG Distance (feet) 15 at 01/01/2017 1115 LTG Status continued at 01/03/2017 1200 LTG [place] Level modified independent at 01/01/2017 1115 LTG Assistive Device 2 wheeled walker (FWW) at 01/01/2017 1115 LTG Distance (feet) 50 at 01/01/2017 1115 Stair Goal Flowsheet Row Most Recent Value STG Status progressing at 01/03/2017 1200 STG [place] Level minimum assist (75% patient effort) at 01/01/2017 1115 STG Assistive Device 2 rails at 01/01/2017 1115 STG Number of Stairs 8 at 01/01/2017 1115 LTG Status continued at 01/03/2017 1200 LTG [place] Level modified independent at 01/01/2017 1115 LTG Assistive Device 2 rails at 01/01/2017 1115 LTG Number of Stairs 8 at 01/01/2017 1115 Wheelchair Goal Flowsheet Row Most Recent Value STG Status not addressed at 01/03/2017 1200 STG pt self propell manual WC 50 ft supervised with BUEs at 01/01/2017 1115 LTG Status progressing at 01/01/2017 1625 Additional Goal #1 PT Flowsheet Row Most Recent Value STG Status met at 01/03/2017 1200 STG Pt will tolerate standing at Sanam Stedy x 1min w/ supervision only at 01/01/2017 1115 LTG Status new at 01/01/2017 1115 LTG pt kenneth standing with fww for 3 minutes supervised at 01/01/2017 1115 Self Care Summary: Pt presented with increased independence with functional mobility jane unger this AM using with low pivot transfers to/fom w/c and tub. Pt continues to pathak ve more pian in L LE With wt bearing and movement, than R Pt continues to need skilled OT i ntervention for increaseing independence and reducing burden of care for family members. FIM Eating Score: 7; Evidence: FIM Grooming Score: 5; Evidence: 5 Get Items, 5 Safety Supervison FIM Bathing Score: 4; Evidence: 4 Steadying Buttocks, 5 Safety Supervison, 5 Verbal Cues, 5 Get Items, 5 Adjust Water Temp, 6 Extra Time FIM Dressing Upper Body Score: 5 Evidence: 5 set up FIM Dressing Lower Body Score: 3; Evidence: Up/down underwear, up/down pants, R sock on, L sock on FIM Toileting Score: 3; Evidence: 3 Assist to Pivot, 5 Verbal Cues, 5 Safety Supervisio n, 6 Extra Time OT Goals OT Goal Review Date Flowsheet Row Most Recent Value STG Review Date 01/08/17 at 01/01/2017 1338 LTG Review Date 01/25/17 at 01/01/2017 1338 Grooming Goal Flowsheet Row Most Recent Value STG Status new at 01/01/2017 1338 STG Position sitting in chair at 01/01/2017 1338 LTG Status progressing at 01/03/2017 1030 LTG [place] Level modified independent at 01/01/2017 1338 Bathing Goal Flowsheet Row Most Recent Value STG Status progressing at 01/03/2017 1030 STG [place] Level contact guard assist at 01/01/2017 1338 STG Adaptive Equpiment shower chair, tub bench at 01/01/2017 1338 LTG Status progressing at 01/03/2017 1030 LTG [place] Level stand by assist at 01/01/2017 1338 UB Dressing Goal Flowsheet Row Most Recent Value STG Status met at 01/03/2017 1030 STG [place] Level stand by assist at 01/01/2017 1338 LTG Status progressing at 01/03/2017 1030 LTG [place] Level set up required at 01/01/2017 1338 LB Dressing Goal Flowsheet Row Most Recent Value STG Status progressing at 01/03/2017 1030 STG [place] Level contact guard assist at 01/01/2017 1338 LTG Status progressing at 01/03/2017 1030 LTG [place] Level set up required at 01/01/2017 1338 Toileting Goal Flowsheet Row Most Recent Value STG Status progressing at 01/03/2017 1030 STG [place] Level minimum assist (75% patient effort) at 01/01/2017 1338 LTG Status progressing at 01/03/2017 1030 LTG [place] Level stand by assist at 01/01/2017 1338 Toilet Transfer Goal Flowsheet Row Most Recent Value STG Status progressing at 01/03/2017 1030 STG [place] Level minimum assist (75% patient effort) at 01/01/2017 1338 LTG Status progressing at 01/03/2017 1030 LTG [place] Level supervised at 01/01/2017 1338 Tub/Shower Transfer Goal Flowsheet Row Most Recent Value Tub/Shower Type tub/shower combo at 01/03/2017 1909 STG Status new at 01/03/2017 1909 STG [place] Level minimum assist (75% patient effort) at 01/03/20171908 STG Assistive Device tub bench at 01/03/20171908 LTG Status new at 01/03/20171908 LTG [place] Level stand by assist at 01/03/20171908 LTG Assistive Device tub bench at 01/03/20171908 Cognition/Communication Summary: Problem Solving Score: 5; Evidence: 5 Daily Prbs 91-99% Memory Score: 5; Evidence: 5 Recalls 91-99% Comprehension/AuditoryScore: 6; Evidence: 6 Needs Extra Time Verbal Expression Score: 6; Evidence: 6 Extra Time Social Interaction Score: 6; Evidence:6 Extra Time Dysphagia/Swallow: ASSISTANCE COORDINATOR Goals Leisure/Community: Therapeutic day pass appropriate: no Education Caregiver training initiated: No Sexuality education initiated: N/A Other education initiated (see Patient Education activity): Yes Recommended Discharge Equipment 2 wheeled walker (FWW), 2 wheeled walker (FWW), tub bench Barriers to Discharge Barriers to Discharge: eight steps in his home, 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 , continued need for 2P assist Barrier Resolution Plan: Either a chair lift or another living facility w/o stairs, patien t and are agreeable to hire care givers in the home that will accommodate his level of assist Post-Discharge Plan Setting: Home with a chair lift and care givers VS another living facility that can provid e care. Level of Assist Recommended for Discharge: Mod I with ambulation and ADLs Anticipate post discharge services: Needed DME, care givers, and in home PT Prosthetics/Orthotics therapeutic interventions recommended: N/A Admission Date: 12/31/2016 ELOS: 21 days Projected DC Date: 01/21/17 Team Goals: 1. Mod I transfers 2. Mod I mobility 3. Improved pain control 4. Improved urination 5. Mod I ADLs Participants: MD: Dr. Sajan Hernandez RN: KARTHIKEYAN Langford PT: Domenica Griffith PT OT: MAL Riggs; MORENO Christian ASSISTANCE COORDINATOR: N/A RAMIREZ/SW: ADELITA Kelly Following interdisciplinary discussion and planning, I fully agree with the above. lan of [facility] - Ge diaz RN - 01/03/2017 3:44 AM PDTProblem: Patient Care Overview (Adult) Goal: Care Team Goals & Evaluation PROBLEM-RELATED GOALS: 3. Dora will call out appropriately for assistance and have no falls during hospitalizati on through 01/18/17 4. Dora's pain will be controlled to allow for activity and rest through 01/18/17 5. Dora will eat 75-100% most meals and accept health shakes through 01/18/17 6. Dora will have a bm qod while in rehab through 01/18/17 7. Dora will void w/o difficulties and not require IC by 01/03/17 8. Dora's skin tears and abrasions will heal w/o s/sx infection 9. Dora will transfer with 1 person A by 01/10/17 10. Geovany will be SBA- setup for his ADLs & functional mobility by 01/25/17. STRATEGY TO ACHIEVE GOALS: -monitor for s/sx pain and medicate prn -monitor for s/sx infection, clean wounds prn and perform dressing changes prn -monitor bm's and medicate prn -encourage po intake and ensure pt is drinking health shakes -monitor voids and perform bladder scans -encourage independence with ambulation and ensure safe transfers - Active participation in OT sessions RESTRAINT-RELATED GOALS: STRATEGIES TO ACHIEVE RESTRAINT GOALS: Outcome: Improving Goal Evaluation: Patient sleeping most of the night. VS stable. Incisional dressings intact. No pain report ed. Repositioned PRN. Continues with difficulty voiding/ straight cath as ordered and collec ting clear yellow urine. CMS intact. Calls for assistance. Bed alarm on for safety. Last BM on 01/02/2017. No other changes to assessment. lan of Care - Carine Whitten RN - 01/02/2017 5:23 PM PDTProblem: Patient Care Overview (Adult) Goal: Care Team Goals & Evaluation PROBLEM-RELATED GOALS: 3. Dora will call out appropriately for assistance and have no falls during hospitalizati on through 01/18/17 4. Dora's pain will be controlled to allow for activity and rest through 01/18/17 5. Dora will eat 75-100% most meals and accept health shakes through 01/18/17 6. Dora will have a bm qod while in rehab through 01/18/17 7. Dora will void w/o difficulties and not require IC by 01/03/17 8. Dora's skin tears and abrasions will heal w/o s/sx infection 9. Dora will transfer with 1 person A by 01/10/17 10. Geovany will be SBA- setup for his ADLs & functional mobility by 01/25/17. STRATEGY TO ACHIEVE GOALS: -monitor for s/sx pain and medicate prn -monitor for s/sx infection, clean wounds prn and perform dressing changes prn -monitor bm's and medicate prn -encourage po intake and ensure pt is drinking health shakes -monitor voids and perform bladder scans -encourage independence with ambulation and ensure safe transfers - Active participation in OT sessions RESTRAINT-RELATED GOALS: STRATEGIES TO ACHIEVE RESTRAINT GOALS: Outcome: Improving Goal Evaluation: alert and pleasant 2 person assist for transfers continue to straight cath for pvr's great er than 400 skin tear drsg intact bilateral hip drsgs intact healing well continue to encour age po intake for hydration and nutrition received one pain pill prior to afternoon pt sessi on lan of Care - Jennifer Trimble G, DIGITAL ADVERTISING ANALYST - 01/02/2017 5:05 PM PDTFormatting of this note might be different from the orig inal. Problem: Patient Care Overview (Adult) Goal: Care Team Goals & Evaluation PROBLEM-RELATED GOALS: 3. Dora will call out appropriately for assistance and have no falls during hospitalizati on through 01/18/17 4. Dora's pain will be controlled to allow for activity and rest through 01/18/17 5. Dora will eat 75-100% most meals and accept health shakes through 01/18/17 6. Dora will have a bm qod while in rehab through 01/18/17 7. Dora will void w/o difficulties and not require IC by 01/03/17 8. Dora's skin tears and abrasions will heal w/o s/sx infection 9. Dora will transfer with 1 person A by 01/10/17 10. Geovany will be SBA- setup for his ADLs & functional mobility by 01/25/17. STRATEGY TO ACHIEVE GOALS: -monitor for s/sx pain and medicate prn -monitor for s/sx infection, clean wounds prn and perform dressing changes prn -monitor bm's and medicate prn -encourage po intake and ensure pt is drinking health shakes -monitor voids and perform bladder scans -encourage independence with ambulation and ensure safe transfers - Active participation in OT sessions RESTRAINT-RELATED GOALS: STRATEGIES TO ACHIEVE RESTRAINT GOALS: Outcome: Improving IRF Physical Therapy Plan of Care Treatment Note Summary: Dora has been participating in physical therapy for treatment of BLE fx. Alidaosvaldo pepe demonstrates objective improvements with upright activity tolerance, standing, transfers. Dora continues to have functional impairments with transfers, BLE weakness/pain, upright posture, generalized weakness, mobility, safety, imbalance. Dora will benefit from skille d PT to address impairments and to improve independence and safety. Remaining barriers to d ischarge include: eight steps into home, safe home mobility, level of assist needed at this time. Emphasis of session on step-up activities, standing tolerance in sanam steady, upright activity tolerance, refer below for specific details regarding mobility. Physical Therapy Discharge Recommendations are: Recommended discharge disposition: inpatient rehabilitation facility Post discharge physical therapy recommendation: ongoing high intensity therapy, able to to lerate 3 hours of therapy/day, pt is motivated participant, will benefit from structured set ting, family involved/supportive, minimum 5 days of therapy/week Equipment Recommendations: 2 wheeled walker (FWW), wheelchair components (comment), wheelc hair, wheelchair cushion Planned Interventions: balance training, bed mobility training, gait training, home exerci se program, patient/family education, orthotic fitting/training, transfer training, wheelcha ir management/propulsion training, ROM (Range of Motion), stair training, strengthening Frequency: (1-2x/day) Patient Status/Goals: Reflects last filed data and may be from multiple contributors. Bed Mobility Pt requires Surya for sit>sup d/t BLE pain, weakness, imbalacne, safety, BLE mobility, vc fo r hand placement, sequencing, 2P modA for sit>sup d/t weakness, pain, BLE mobility, vc for s equencing Assistive Device: bed rails Scoot/Bridge, Level of [place]: moderate assist (50% patient effort), verbal cues requ ired, 2 person assist required Supine to Sit, Level of [place]: minimal assist (75% patient effort), verbal cues requ ired, tactile cues required Sit to Supine, Level of [place]: minimal assist (75% patient effort), verbal cues requ ired, tactile cues required, 2 person assist required Safety Issues: decreased use of arms for pushing/pulling, decreased use of legs for bridgin g/pushing, impaired trunk control for bed mobility Impairments: decreased flexibility, strength decreased, impaired balance, pain Transfers Pt requires 2P Surya with sanam steady d/t BLE pain, weakness, imbalance, safety, general dec onditioning, vc for hand placement sequencing, LE positioning. Pt displays improving sit>sta nd within sanam steady with block standing activities. Pt requires 2P modA with sit<>leasing associate ll bars for stepping activities, d/t BLE pain, weakness, imbalance, postural control, safet y, vc for hand placement, LE positioning. Bed-Chair, Level of [place]: maximal assist (25% patient effort), 2 person assist requ ired Chair-Bed, Level of [place]: 2 person assist required, moderate assist (50% patient ef fort) Uti-Aopxx-Obj, Assistive Device: wheelchair, other (see comments) (sanam steady for w/c>bed) Sit-Stand, Level of [place]: 2 person assist required, verbal cues required, minimal a ssist (75% patient effort), tactile cues required Stand-Sit, Level of [place]: 2 person assist required, verbal cues required, minimal a ssist (75% patient effort), tactile cues required Awn-Cinxp-Gex, Assistive Device: other (see comments), wheelchair (sanam steady, ll bars) Maintain Weight Bearing Status: cues to maintain weight bearing status Safety Issues: sequencing ability decreased, weight-shifting ability decreased, step length decreased, balance decreased during turns Impairments: pain, strength decreased, impaired balance, postural control impaired, ROM dec reased Gait pre-gt stepping up activities and standing in sanam steady Level of [place]: 2 person assist required, moderate assist (50% patient effort), verb al cues required, set up required Assistive Device: other (see comments) (ll bars) Stairs 4 inch seps in ll bars only, L foot up Number of Stairs: 5 Handrail Location: both sides Level of [place]: 2 person assist required, moderate assist (50% patient effort), verb al cues required, tactile cues required Assistive Device: other (see comments) (parallel bars) Technique Used: step to step (ascending), step to step (descending) Maintain Weight Bearing Status: cues to maintain weight bearing status Safety Issues: balance decreased during turns Impairments: pain, impaired balance, strength decreased, coordination impaired, motor contr ol impaired Wheelchair Mobility Pt requires Sup with set up, vc for brake mgmt, Surya d/t to fatigue this sessoin with retur jersey to room. Type: recline Surface: indoor, tile Distance (feet): 60 Speed: very slow Level of [place]: minimal assist (75% patient effort) Propulsion Technique: bilateral UE's (min. BLE use) Components: brakes Components Management Assistance: minimum assist/contact guard assist (75% patients effort) Therapeutic Exercise Pre-gt step up activties, and block standing in sanam steady. Pt did have a missed hand sanders sition d/t LE fatigue and sit down quickly, discont. stepping activities d/t fatigue. Pt req uries seated rest breaks between each standing set and step-up activities Bed exercises: bilateral, ankle pumps, quad sets, glut sets Repetitions: 10 Seated exercises: bilateral, ankle pumps, hip abduction/adduction, marching, long arc quads , knee flexion Repetitions: x10 Standing exercises: (standing in sanam steady, step-ups) Repetitions: Step-ups x5 LLE, sanam steady standing 4 x 1 mins Functional Endurance fair-; d/t length of stay, immmobilization and general deconditioning, BLE pain/weakness ROM BLEs unable to move actively through full range, pt reports pain in knees prevents movement at this time PT Goal Review Date Flowsheet Row Most Recent Value STG Review Date 01/08/17 at 01/01/2017 1115 LTG Review Date 01/22/17 at 01/01/2017 1115 All Bed Mobility Goal Flowsheet Row Most Recent Value STG Status progressing, continued at 01/02/2017 1705 STG [place] Level contact guard assist at 01/01/2017 1115 LTG Status progressing at 01/01/2017 1625 LTG [place] Level modified independent at 01/01/2017 1115 Roll Left/Right Goal Flowsheet Row Most Recent Value STG Status progressing, continued at 01/02/2017 1705 STG [place] Level contact guard assist at 01/01/2017 1115 LTG Status progressing at 01/01/2017 1625 LTG [place] Level modified independent at 01/01/2017 1115 Scoot/Bridge Goal Flowsheet Row Most Recent Value STG Status progressing, continued at 01/02/2017 1705 STG [place] Level contact guard assist at 01/01/2017 1115 LTG Status progressing at 01/01/2017 1625 LTG [place] Level modified independent at 01/01/2017 1115 Qyoguz-Rjx-Pjsxph Goal Flowsheet Row Most Recent Value STG Status progressing, continued at 01/02/2017 1705 STG [place] Level contact guard assist at 01/01/2017 1115 STG Assistive Device bed rails at 01/01/2017 1115 LTG Status progressing at 01/01/2017 1625 LTG [place] Level modified independent at 01/01/2017 1115 LTG Assistive Device bed rails at 01/01/2017 1115 Bcmyfbzxk-Umr-Lfembijtp Goal Flowsheet Row Most Recent Value STG Status progressing, continued at 01/02/2017 1705 STG [place] Level contact guard assist at 01/01/2017 1115 LTG Status progressing at 01/01/2017 1625 LTG [place] Level modified independent at 01/01/2017 1115 All Transfers Goal Flowsheet Row Most Recent Value STG Status progressing, continued at 01/02/2017 1705 STG [place] Level contact guard assist at 01/01/2017 1115 STG Comments Using Sanam Travis at 01/01/2017 1115 LTG Status progressing at 01/01/2017 1625 LTG [place] Level modified independent at 01/01/2017 1115 LTG Assistive Device 2 wheeled walker (FWW) at 01/01/2017 1115 Gait Goal Flowsheet Row Most Recent Value STG Status continued, progressing at 01/02/2017 1705 STG [place] Level minimum assist (75% patient effort) at 01/01/2017 1115 STG Assistive Device 2 wheeled walker (FWW) at 01/01/2017 1115 STG Distance (feet) 15 at 01/01/2017 1115 LTG Status continued at 01/01/2017 1625 LTG [place] Level modified independent at 01/01/2017 1115 LTG Assistive Device 2 wheeled walker (FWW) at 01/01/2017 1115 LTG Distance (feet) 50 at 01/01/2017 1115 Stair Goal Flowsheet Row Most Recent Value STG Status progressing, continued at 01/02/2017 1705 STG [place] Level minimum assist (75% patient effort) at 01/01/2017 1115 STG Assistive Device 2 rails at 01/01/2017 1115 STG Number of Stairs 8 at 01/01/2017 1115 LTG Status continued at 01/01/2017 1625 LTG [place] Level modified independent at 01/01/2017 1115 LTG Assistive Device 2 rails at 01/01/2017 1115 LTG Number of Stairs 8 at 01/01/2017 1115 Wheelchair Goal Flowsheet Row Most Recent Value STG Status progressing, continued at 01/02/2017 1705 STG pt self propell manual WC 50 ft supervised with BUEs at 01/01/2017 1115 LTG Status progressing at 01/01/2017 1625 Additional Goal #1 PT Flowsheet Row Most Recent Value STG Status progressing, continued at 01/02/2017 1705 STG Pt will tolerate standing at Sanam Stedy x 1min w/ supervision only at 01/01/2017 1115 LTG Status new at 01/01/2017 1115 LTG pt kenneth standing with fww for 3 minutes supervised at 01/01/2017 1115 Electronically signed by: David Trimble PTA, 01/02/2017 19:44 lan of Care - Arely Pool COTA - 01/02/2017 2:25 PM PDTFormatting of this note might be different from t he original. Problem: Patient Care Overview (Adult) Goal: Care Team Goals & Evaluation PROBLEM-RELATED GOALS: 3. Dora will call out appropriately for assistance and have no falls during hospitalizati on through 01/18/17 4. Dora's pain will be controlled to allow for activity and rest through 01/18/17 5. Dora will eat 75-100% most meals and accept health shakes through 01/18/17 6. Dora will have a bm qod while in rehab through 01/18/17 7. Dora will void w/o difficulties and not require IC by 01/03/17 8. Dora's skin tears and abrasions will heal w/o s/sx infection 9. Dora will transfer with 1 person A by 01/10/17 10. Geovany will be SBA- setup for his ADLs & functional mobility by 01/25/17. STRATEGY TO ACHIEVE GOALS: -monitor for s/sx pain and medicate prn -monitor for s/sx infection, clean wounds prn and perform dressing changes prn -monitor bm's and medicate prn -encourage po intake and ensure pt is drinking health shakes -monitor voids and perform bladder scans -encourage independence with ambulation and ensure safe transfers - Active participation in OT sessions RESTRAINT-RELATED GOALS: STRATEGIES TO ACHIEVE RESTRAINT GOALS: IRF Occupational Therapy Plan of Care Treatment Note Summary: Pt motivated to try and ambulate this PM, But upon standing reports pain is to gr eat, Pt reports he has not asked for anything for pain. notified nursing and requested tk n meds. Continued education on importance of being medicated for therapies. Pt requested to go back to bed at the end of our session. Occupational Therapy Discharge Recommendations are: Recommended discharge disposition: home with assist Post discharge occupational therapy recommendation: home health, pt is motivated participa nt (TBD) Equipment Recommendations: 2 wheeled walker (FWW), tub bench (TBD) Planned Interventions:ADL retraining, strengthening, transfer training, bed mobility traini ng, IADL retraining, balance training, prosthetic fitting/training, ROM (Range of Motion) (e jeanine mgmt as indicated) Recommended Frequency: (6-7x/week) Patient Status/Goals: Reflects last filed data and may be from multiple contributors. ADLs . Pt changed from hospital pants to Shorts LB Dressing, Level of [place]: moderate assist (50% patient effort) Assistive Device: casserole preparer, sock-aid LB Dressing Assess/Train, Position: sitting, supported standing LB Dressing Assess/Train, Impairments: decreased flexibility, pain Pt started to attempt clothing management standing on sanam steady. Stii needed assist for hygiene. Toileting, Level of [place]: moderate assist (50% patient effort) Transfers Toilet, Level of [place]: moderate assist (50% patient effort) Toilet, Assistive Device: seat riser (sanam steady) Safety Issues: sequencing ability decreased, weight-shifting ability decreased, step length decreased, balance decreased during turns Impairments: pain, strength decreased, impaired balance, postural control impaired, ROM dec reased OT Goal Review Date Flowsheet Row Most Recent Value STG Review Date 01/08/17 at 01/01/2017 1338 LTG Review Date 01/25/17 at 01/01/2017 1338 Grooming Goal Flowsheet Row Most Recent Value STG Status new at 01/01/2017 1338 STG Position sitting in chair at 01/01/2017 1338 LTG Status progressing at 01/02/2017 1010 LTG [place] Level modified independent at 01/01/2017 1338 Bathing Goal Flowsheet Row Most Recent Value STG Status progressing at 01/02/2017 1010 STG [place] Level contact guard assist at 01/01/2017 1338 STG Adaptive Equpiment shower chair, tub bench at 01/01/2017 1338 LTG Status progressing at 01/02/2017 1010 LTG [place] Level stand by assist at 01/01/2017 1338 UB Dressing Goal Flowsheet Row Most Recent Value STG Status progressing at 01/02/2017 1010 STG [place] Level stand by assist at 01/01/2017 1338 LTG Status progressing at 01/02/2017 1010 LTG [place] Level set up required at 01/01/2017 1338 LB Dressing Goal Flowsheet Row Most Recent Value STG Status progressing at 01/02/2017 1010 STG [place] Level contact guard assist at 01/01/2017 1338 LTG Status progressing at 01/02/2017 1010 LTG [place] Level set up required at 01/01/2017 1338 Toileting Goal Flowsheet Row Most Recent Value STG Status progressing at 01/02/2017 1425 STG [place] Level minimum assist (75% patient effort) at 01/01/2017 1338 LTG Status progressing at 01/02/2017 1425 LTG [place] Level stand by assist at 01/01/2017 1338 Toilet Transfer Goal Flowsheet Row Most Recent Value STG Status progressing at 01/02/2017 1425 STG [place] Level minimum assist (75% patient effort) at 01/01/2017 1338 LTG Status progressing at 01/02/2017 1425 LTG [place] Level supervised at 01/01/2017 1338 Electronically signed by: Arely Pool, Certified Health Care Marketing Manager, 2016 15:08 lan of Care - Wilmar Garcia cas, RDN - 01/02/2017 2:08 PM PDT Problem: Patient Care Overview (Adult) Goal: Care Team Goals & Evaluation PROBLEM-RELATED GOALS: 3. Dora will call out appropriately for assistance and have no falls during hospitalizati on through 01/18/17 4. Dora's pain will be controlled to allow for activity and rest through 01/18/17 5. Dora will eat 75-100% most meals and accept health shakes through 01/18/17 6. Dora will have a bm qod while in rehab through 01/18/17 7. Dora will void w/o difficulties and not require IC by 01/03/17 8. Dora's skin tears and abrasions will heal w/o s/sx infection 9. Dora will transfer with 1 person A by 01/10/17 10. Geovany will be SBA- setup for his ADLs & functional mobility by 01/25/17. STRATEGY TO ACHIEVE GOALS: -monitor for s/sx pain and medicate prn -monitor for s/sx infection, clean wounds prn and perform dressing changes prn -monitor bm's and medicate prn -encourage po intake and ensure pt is drinking health shakes -monitor voids and perform bladder scans -encourage independence with ambulation and ensure safe transfers - Active participation in OT sessions RESTRAINT-RELATED GOALS: STRATEGIES TO ACHIEVE RESTRAINT GOALS: Outcome: Improving Goal Evaluation: NUTRITION THERAPY NOTE Summary: Pt is eating 50-100% of a general diet. He comments that he is not a big 'eater' and typically eats just 2 meals/day. He is making own menu selections and reports the opti ons are good. Nutritional supplements are provided tid. Intake has improved overall since initial admit to acute care. Current weight down 1.3 kg from admit weight of ~78 kg. Will continue to f/u to monitor and note adequacy of intake and need for intervention Estimated Energy and Protein Needs: (based on 75 kg) Kcal needs: 9905-1084 Kcals/day Protein needs:75-90 grams of protein/day Fluid goal:5729-9998 cc fluid per day Nutrition Plan of Care: Interventions: 1. Supplements tid 2. Monitor menu selections Nutrition Goals: 1. Adequate intake to meet >75% of his assessed energy and protein eeds 2. Stable weight Monitor: 1. I/O 2. Pt comments F/u in 2 days. Available as needed, ext [phone] Assessment: Diet Order: For your reference, current, active order is: Diet general; Effective Now Labs: Recent Labs 01/02/17 0632 01/01/17 0610 12/31/16 0621 NA 136 136 137 K 3.6 3.5 3.5 CL 101 100 100 BUN 15 19* 22* CREA 1.10 1.10 1.19 ALBUMIN -- 2.2* 2.3* Anthropometrics: Height: 175.3 cm (5' 9") Weight: 76.7 kg (169 lb 1.5 oz) Wt Readings from Last 3 Encounters: 01/02/17 76.7 kg (169 lb 1.5 oz) 12/31/16 81.9 kg (180 lb 8.9 oz) Body mass index is 24.97 kg/m. Electronically Signed by: WILMAR XIE RDN 01/02/2017 14:02 lan of Care - Jarod Bradford, PROFESSIONAL SYSTEM ADMINISTRATOR - 01/02/2017 1:58 PM PDTProblem: Patient Care Overview (Adult) Goal: Care Team Goals & Evaluation PROBLEM-RELATED GOALS: 3. Dora will call out appropriately for assistance and have no falls during hospitalizati on through 01/18/17 4. Dora's pain will be controlled to allow for activity and rest through 01/18/17 5. Dora will eat 75-100% most meals and accept health shakes through 01/18/17 6. Dora will have a bm qod while in rehab through 01/18/17 7. Dora will void w/o difficulties and not require IC by 01/03/17 8. Dora's skin tears and abrasions will heal w/o s/sx infection 9. Dora will transfer with 1 person A by 01/10/17 10. Geovany will be SBA- setup for his ADLs & functional mobility by 01/25/17. STRATEGY TO ACHIEVE GOALS: -monitor for s/sx pain and medicate prn -monitor for s/sx infection, clean wounds prn and perform dressing changes prn -monitor bm's and medicate prn -encourage po intake and ensure pt is drinking health shakes -monitor voids and perform bladder scans -encourage independence with ambulation and ensure safe transfers - Active participation in OT sessions RESTRAINT-RELATED GOALS: STRATEGIES TO ACHIEVE RESTRAINT GOALS: Outcome: Improving Goal Evaluation: SpO2: 96 % on room air and BS clear with diminished bases. Dora is using vibratory PEP a nd incentive spirometer on own. RT goals met. Call RT if any respiratory concerns. lan of Care - David Nguyen, DIGITAL ADVERTISING ANALYST - 01/02/2017 11:28 AM PDT Problem: Patient Care Overview (Adult) Goal: Care Team Goals & Evaluation PROBLEM-RELATED GOALS: 3. Dora will call out appropriately for assistance and have no falls during hospitalizati on through 01/18/17 4. Leighanns pain will be controlled to allow for activity and rest through 01/18/17 5. Dora will eat 75-100% most meals and accept health shakes through 01/18/17 6. Dora will have a bm qod while in rehab through 01/18/17 7. Dora will void w/o difficulties and not require IC by 01/03/17 8. Leighanns skin tears and abrasions will heal w/o s/sx infection 9. Dora will transfer with 1 person A by 01/10/17 10. Geovany will be SBA- setup for his ADLs & functional mobility by 01/25/17. STRATEGY TO ACHIEVE GOALS: -monitor for s/sx pain and medicate prn -monitor for s/sx infection, clean wounds prn and perform dressing changes prn -monitor bm's and medicate prn -encourage po intake and ensure pt is drinking health shakes -monitor voids and perform bladder scans -encourage independence with ambulation and ensure safe transfers - Active participation in OT sessions RESTRAINT-RELATED GOALS: STRATEGIES TO ACHIEVE RESTRAINT GOALS: Outcome: Improving IRF Physical Therapy Plan of Care Treatment Note Summary: Dora has been participating in physical therapy for treatment of BLE fx. Cori nt demonstrates objective improvements with transfers, standing, min. Increase with upright activity tolerance. Dora continues to have functional impairments with mobility, transfer s, BLE weakness/pain, generalized weakness, safety, imbalance, upright posture. Dora will benefit from skilled PT to address impairments and to improve independence and safety. Rem aining barriers to discharge include: eight steps into home, safe home mobility, level of as sist needed at this time. Emphasis of session on upright activity tolerance, pre-gt activit ies, refer below for specific details regarding mobility. Physical Therapy Discharge Recommendations are: Recommended discharge disposition: inpatient rehabilitation facility Post discharge physical therapy recommendation: ongoing high intensity therapy, able to to lerate 3 hours of therapy/day, pt is motivated participant, will benefit from structured set ting, family involved/supportive, minimum 5 days of therapy/week Equipment Recommendations: 2 wheeled walker (FWW), wheelchair components (comment), wheelc hair, wheelchair cushion Planned Interventions: balance training, bed mobility training, gait training, home exerci se program, patient/family education, orthotic fitting/training, transfer training, wheelcha ir management/propulsion training, ROM (Range of Motion), stair training, strengthening Frequency: (1-2x/day) Patient Status/Goals: Reflects last filed data and may be from multiple contributors. Bed Mobility pt requires, Surya for sit>sup d/t BLE weakness, pain, safety, imbalance, BLE mobility, vc f or sequencing, hand placement, maxA 2P for repositioning in bed d/t weakness, safety, vc for sequencing Assistive Device: none Scoot/Bridge, Level of [place]: maximal assist (25% patient effort), 2 person assist r equired Supine to Sit, Level of [place]: minimal assist (75% patient effort) Safety Issues: decreased use of arms for pushing/pulling, decreased use of legs for bridgin g/pushing, impaired trunk control for bed mobility Impairments: decreased flexibility, strength decreased, impaired balance, pain Transfers pt requires 2P sanam steady for w/c>bed d/t BLE weakness, pain, safety, imbalance, general d econditioning, vc for sequencing, hand placement, LE positioning, 2P modA for sit<>stand fro m w/c in ll bars d/t LE weakness, pain, safety, imbalance, postural control, vc for sequenci ng, LE positioning, hand placement Chair-Bed, Level of [place]: 2 person assist required, moderate assist (50% patient ef fort) [id number], Assistive Device: wheelchair, other (see comments) (sanam steady for w/c>bed) Sit-Stand, Level of [place]: 2 person assist required, moderate assist (50% patient ef fort), verbal cues required Stand-Sit, Level of [place]: 2 person assist required, moderate assist (50% patient ef fort), verbal cues required [id number], Assistive Device: other (see comments), wheelchair (parallel bars from w/c) Maintain Weight Bearing Status: cues to maintain weight bearing status Safety Issues: sequencing ability decreased, weight-shifting ability decreased, step length decreased, balance decreased during turns Impairments: pain, strength decreased, impaired balance, postural control impaired, ROM dec reased Gait Pre-gt activities standing with wt shifting, stepping F/B 2P modA d/t BLE weakness, pain, s afety, imbalance, generalized weakness, bc for upright posture, seqeuncing, stepping 5x2 L/R seated rest breaks between each set Level of [place]: 2 person assist required, moderate assist (50% patient effort), verb al cues required, set up required Assistive Device: other (see comments) (ll bars) Distance (feet): 2 Wheelchair Mobility Pt requires Sup for set up, vc for brake mgmt, Surya d/t to fatigue this session, improving BUE use as needed. Type: recline Surface: indoor, tile Distance (feet): 60 Level of [place]: minimal assist (75% patient effort) Propulsion Technique: bilateral UE's Components: brakes Components Management Assistance: minimum assist/contact guard assist (75% patients effort) Therapeutic Exercise Pre-gt stepping F/B with R/L, Sci-fit lv 1.0 x 7:30 mins, BLE ther ex Seated exercises: bilateral, ankle pumps, hip abduction/adduction, marching, long arc quads , knee flexion Repetitions: x10 Standing exercises: weight shifting, stepping forward/backward Repetitions: WS x10, Stepping 5x2 Functional Exercises: Sci-fit lv 1.0 Repetitions: x 7:30 mins Functional Endurance fair-; considering pt's length of stay, immobilization and general deconditioning, BLE weak ness,pain PT Goal Review Date Flowsheet Row Most Recent Value STG Review Date 01/08/17 at 01/01/2017 1115 LTG Review Date 01/22/17 at 01/01/2017 1115 All Bed Mobility Goal Flowsheet Row Most Recent Value STG Status continued, progressing at 01/02/2017 1128 STG [place] Level contact guard assist at 01/01/2017 1115 LTG Status progressing at 01/01/2017 1625 LTG [place] Level modified independent at 01/01/2017 1115 Roll Left/Right Goal Flowsheet Row Most Recent Value STG Status continued, progressing at 01/02/2017 1128 STG [place] Level contact guard assist at 01/01/2017 1115 LTG Status progressing at 01/01/2017 1625 LTG [place] Level modified independent at 01/01/2017 1115 Scoot/Bridge Goal Flowsheet Row Most Recent Value STG Status continued, progressing at 01/02/2017 1128 STG [place] Level contact guard assist at 01/01/2017 1115 LTG Status progressing at 01/01/2017 1625 LTG [place] Level modified independent at 01/01/2017 1115 Tjlrje-Xbj-Xjnutx Goal Flowsheet Row Most Recent Value STG Status continued, progressing at 01/02/2017 1128 STG [place] Level contact guard assist at 01/01/2017 1115 STG Assistive Device bed rails at 01/01/2017 1115 LTG Status progressing at 01/01/2017 1625 LTG [place] Level modified independent at 01/01/2017 1115 LTG Assistive Device bed rails at 01/01/2017 1115 Icmmgdelk-Lms-Uofkftkmz Goal Flowsheet Row Most Recent Value STG Status continued, progressing at 01/02/2017 1128 STG [place] Level contact guard assist at 01/01/2017 1115 LTG Status progressing at 01/01/2017 1625 LTG [place] Level modified independent at 01/01/2017 1115 All Transfers Goal Flowsheet Row Most Recent Value STG Status continued, progressing at 01/02/2017 1128 STG [place] Level contact guard assist at 01/01/2017 1115 STG Comments Using Sanam Travis at 01/01/2017 1115 LTG Status progressing at 01/01/2017 1625 LTG [place] Level modified independent at 01/01/2017 1115 LTG Assistive Device 2 wheeled walker (FWW) at 01/01/2017 1115 Gait Goal Flowsheet Row Most Recent Value STG Status continued, progressing at 01/02/2017 1128 STG [place] Level minimum assist (75% patient effort) at 01/01/2017 1115 STG Assistive Device 2 wheeled walker (FWW) at 01/01/2017 1115 STG Distance (feet) 15 at 01/01/2017 1115 LTG Status continued at 01/01/2017 1625 LTG [place] Level modified independent at 01/01/2017 1115 LTG Assistive Device 2 wheeled walker (FWW) at 01/01/2017 1115 LTG Distance (feet) 50 at 01/01/2017 1115 Stair Goal Flowsheet Row Most Recent Value STG Status not addressed, continued at 01/02/2017 1128 STG [place] Level minimum assist (75% patient effort) at 01/01/2017 1115 STG Assistive Device 2 rails at 01/01/2017 1115 STG Number of Stairs 8 at 01/01/2017 1115 LTG Status continued at 01/01/2017 1625 LTG [place] Level modified independent at 01/01/2017 1115 LTG Assistive Device 2 rails at 01/01/2017 1115 LTG Number of Stairs 8 at 01/01/2017 1115 Wheelchair Goal Flowsheet Row Most Recent Value STG Status continued, progressing at 01/02/2017 1128 STG pt self propell manual WC 50 ft supervised with BUEs at 01/01/2017 1115 LTG Status progressing at 01/01/2017 1625 Additional Goal #1 PT Flowsheet Row Most Recent Value STG Status continued, progressing at 01/02/2017 1128 STG Pt will tolerate standing at Sanam Stedy x 1min w/ supervision only at 01/01/2017 1115 LTG Status new at 01/01/2017 1115 LTG pt kenneth standing with fww for 3 minutes supervised at 01/01/2017 1115 Electronically signed by: David Trimble PTA, 01/02/2017 17:47 lan of Elysia - Arely Pool COTA - 01/02/2017 10:10 AM PDTFormatting of this note might be different from t he original. Problem: Patient Care Overview (Adult) Goal: Care Team Goals & Evaluation PROBLEM-RELATED GOALS: 3. Dora will call out appropriately for assistance and have no falls during hospitalizati on through 01/18/17 4. Dora's pain will be controlled to allow for activity and rest through 01/18/17 5. Dora will eat 75-100% most meals and accept health shakes through 01/18/17 6. Dora will have a bm qod while in rehab through 01/18/17 7. Dora will void w/o difficulties and not require IC by 01/03/17 8. Leighanns skin tears and abrasions will heal w/o s/sx infection 9. Dora will transfer with 1 person A by 01/10/17 10. Geovany will be SBA- setup for his ADLs & functional mobility by 01/25/17. STRATEGY TO ACHIEVE GOALS: -monitor for s/sx pain and medicate prn -monitor for s/sx infection, clean wounds prn and perform dressing changes prn -monitor bm's and medicate prn -encourage po intake and ensure pt is drinking health shakes -monitor voids and perform bladder scans -encourage independence with ambulation and ensure safe transfers - Active participation in OT sessions RESTRAINT-RELATED GOALS: STRATEGIES TO ACHIEVE RESTRAINT GOALS: IRF Occupational Therapy Plan of Care Treatment Note Summary: Pt seen for morning ADL's. Pt agreeable to attempt a step pivot transfer to W/C, reporting increased pain during transfers, but started to subside once sitting. Pt require d increased assist for pericare and to don clothing over hips both from standing d/t increas e in pain. Educated on importance of needing pain med on board to manage with therapies. P t demonstrated carry over of AE use with LB dressing from previous pm session. Occupational Therapy Discharge Recommendations are: Recommended discharge disposition: home with assist Post discharge occupational therapy recommendation: home health, pt is motivated participa nt (TBD) Equipment Recommendations: 2 wheeled walker (FWW), tub bench (TBD) Planned Interventions:ADL retraining, strengthening, transfer training, bed mobility traini ng, IADL retraining, balance training, prosthetic fitting/training, ROM (Range of Motion) (e jeanine mgmt as indicated) Recommended Frequency: (6-7x/week) Patient Status/Goals: Reflects last filed data and may be from multiple contributors. ADLs pt is starting to attempt clothing managegement and hygiene from standing using FWW this A M sponge bath w/c level at sink, Pt stood for jose care, but did not feel secure enough to le t go of FWW, requiring assist. Bathing, Level of [place]: moderate assist (50% patient effort) Assistive Device: none Bathing Assess/Train, Position: sitting, supported standing Bathing Assess/Train, Impairments: strength decreased, impaired balance Pt completed UB dressing seated in w/c UB Dressing, Level of [place]: set up required, stand by assist Assistive Device: none UB Dressing Assess/Train, Position: sitting Started AE training for LB dressing LB Dressing, Level of [place]: moderate assist (50% patient effort) Assistive Device: casserole preparer, sock-aid LB Dressing Assess/Train, Position: sitting, supported standing LB Dressing Assess/Train, Impairments: decreased flexibility, pain not addressed this AM no assist with sitting at sink Grooming, Level of [place]: stand by assist Assistive Device: none Grooming Assess/Train, Position: sitting Grooming Assess/Train, Impairments: strength decreased, impaired balance, pain Transfers Pt completed a pivot transfer to w/c from EOB this AM. Pt reported increased pain in L LE mot than R with trnasfer. Bed-Chair, Level of [place]: modified independent, 1 person + 1 person to manage equip ment [id number], Assistive Device: wheelchair Sit-Stand, Level of [place]: 1 person + 1 person to manage equipment, minimal assist ( 75% patient effort) (with EOB elevated) Stand-Sit, Level of [place]: minimal assist (75% patient effort) Itr-[id number], Assistive Device: wheelchair Safety Issues: sequencing ability decreased, weight-shifting ability decreased, step length decreased, balance decreased during turns Impairments: pain, strength decreased, impaired balance, postural control impaired, ROM dec reased OT Goal Review Date Flowsheet Row Most Recent Value STG Review Date 01/08/17 at 01/01/2017 1338 LTG Review Date 01/25/17 at 01/01/2017 1338 Grooming Goal Flowsheet Row Most Recent Value STG Status new at 01/01/2017 1338 STG Position sitting in chair at 01/01/2017 1338 LTG Status progressing at 01/02/2017 1010 LTG [place] Level modified independent at 01/01/2017 1338 Bathing Goal Flowsheet Row Most Recent Value STG Status progressing at 01/02/2017 1010 STG [place] Level contact guard assist at 01/01/2017 1338 STG Adaptive Equpiment shower chair, tub bench at 01/01/2017 1338 LTG Status progressing at 01/02/2017 1010 LTG [place] Level stand by assist at 01/01/2017 1338 UB Dressing Goal Flowsheet Row Most Recent Value STG Status progressing at 01/02/2017 1010 STG [place] Level stand by assist at 01/01/2017 1338 LTG Status progressing at 01/02/2017 1010 LTG [place] Level set up required at 01/01/2017 1338 LB Dressing Goal Flowsheet Row Most Recent Value STG Status progressing at 01/02/2017 1010 STG [place] Level contact guard assist at 01/01/2017 1338 LTG Status progressing at 01/02/2017 1010 LTG [place] Level set up required at 01/01/2017 1338 Toileting Goal Flowsheet Row Most Recent Value STG Status not addressed at 01/02/2017 1010 STG [place] Level minimum assist (75% patient effort) at 01/01/2017 1338 LTG Status not addressed at 01/02/2017 1010 LTG [place] Level stand by assist at 01/01/2017 1338 Toilet Transfer Goal Flowsheet Row Most Recent Value STG Status not addressed at 01/02/2017 1010 STG [place] Level minimum assist (75% patient effort) at 01/01/2017 1338 LTG Status not addressed at 01/02/2017 1010 LTG [place] Level supervised at 01/01/2017 1338 Electronically signed by: Arely Pool, Certified Health Care Marketing Manager, 2016 10:10 lan of Care - Ge Mark RN - 01/02/2017 7:55 AM PDTProblem: Patient Care Overview (Adult) Goal: Care Team Goals & Evaluation PROBLEM-RELATED GOALS: 1. Dora will maintain adequate oxygenation via oximetry with SpO2 >90%. 2. Dora will have breath sounds consistent with baseline function throughout stay and rev erse airway bronchospasm when indicated. 3. Dora will call out appropriately for assistance and have no falls during hospitalizati on through 01/18/17 4. Dora's pain will be controlled to allow for activity and rest through 01/18/17 5. Dora will eat 75-100% most meals and accept health shakes through 01/18/17 6. Dora will have a bm qod while in rehab through 01/18/17 7. Dora will void w/o difficulties and not require IC by 01/03/17 8. Dora's skin tears and abrasions will heal w/o s/sx infection 9. Dora will transfer with 1 person A by 01/10/17 10. Geovany will be SBA- setup for his ADLs & functional mobility by 01/25/17. STRATEGY TO ACHIEVE GOALS: - Monitor saturations via oximetry and titrate to order as indicated. - Administer respiratory medications as ordered and adjust with use of respiratory protocol s. -monitor for s/sx pain and medicate prn -monitor for s/sx infection, clean wounds prn and perform dressing changes prn -monitor bm's and medicate prn -encourage po intake and ensure pt is drinking health shakes -monitor voids and perform bladder scans -encourage independence with ambulation and ensure safe transfers - Active participation in OT sessions RESTRAINT-RELATED GOALS: STRATEGIES TO ACHIEVE RESTRAINT GOALS: Outcome: Improving Goal Evaluation: Patient doing well. Sleeping most of the night. Incisional dressings intact. No pain repor darek. Continues with difficulty voiding and was straight cath x2 obtaining 475 cc and 460 cc of clear yellow urine. Patient tolerated procedure well both times. CMS intact. Calls for as sistance. Bed alar was activated for safety. Had a small BM. No other changes to assessment. lan of Care - Francisco Llanes RRT - 01/02/2017 1:17 AM PDTProblem: Patient Care Overview (Adult) Goal: Care Team Goals & Evaluation PROBLEM-RELATED GOALS: 1. Dora will maintain adequate oxygenation via oximetry with SpO2 >90%. 2. Dora will have breath sounds consistent with baseline function throughout stay and rev erse airway bronchospasm when indicated. 3. Dora will call out appropriately for assistance and have no falls during hospitalizati on through 01/18/17 4. Dora's pain will be controlled to allow for activity and rest through 01/18/17 5. Dora will eat 75-100% most meals and accept health shakes through 01/18/17 6. Dora will have a bm qod while in rehab through 01/18/17 7. Dora will void w/o difficulties and not require IC by 01/03/17 8. Dora's skin tears and abrasions will heal w/o s/sx infection 9. Dora will transfer with 1 person A by 01/10/17 10. Geovany will be SBA- setup for his ADLs & functional mobility by 01/25/17. STRATEGY TO ACHIEVE GOALS: - Monitor saturations via oximetry and titrate to order as indicated. - Administer respiratory medications as ordered and adjust with use of respiratory protocol s. -monitor for s/sx pain and medicate prn -monitor for s/sx infection, clean wounds prn and perform dressing changes prn -monitor bm's and medicate prn -encourage po intake and ensure pt is drinking health shakes -monitor voids and perform bladder scans -encourage independence with ambulation and ensure safe transfers - Active participation in OT sessions RESTRAINT-RELATED GOALS: STRATEGIES TO ACHIEVE RESTRAINT GOALS: Outcome: Unchanged Goal Evaluation: SpO2: 93 % on room air. Patient resting with no need for PRN treatment. lan of Care - Maria Dolores, Carine Moncada RN - 01/01/2017 6:22 PM PDTProblem: Patient Care Overview (Adult) Goal: Care Team Goals & Evaluation PROBLEM-RELATED GOALS: 1. Dora will maintain adequate oxygenation via oximetry with SpO2 >90%. 2. Dora will have breath sounds consistent with baseline function throughout stay and rev erse airway bronchospasm when indicated. 3. Dora will call out appropriately for assistance and have no falls during hospitalizati on through 01/18/17 4. Dora's pain will be controlled to allow for activity and rest through 01/18/17 5. Dora will eat 75-100% most meals and accept health shakes through 01/18/17 6. Dora will have a bm qod while in rehab through 01/18/17 7. Dora will void w/o difficulties and not require IC by 01/03/17 8. Dora's skin tears and abrasions will heal w/o s/sx infection 9. Dora will transfer with 1 person A by 01/10/17 10. Geovany will be SBA- setup for his ADLs & functional mobility by 01/25/17. STRATEGY TO ACHIEVE GOALS: - Monitor saturations via oximetry and titrate to order as indicated. - Administer respiratory medications as ordered and adjust with use of respiratory protocol s. -monitor for s/sx pain and medicate prn -monitor for s/sx infection, clean wounds prn and perform dressing changes prn -monitor bm's and medicate prn -encourage po intake and ensure pt is drinking health shakes -monitor voids and perform bladder scans -encourage independence with ambulation and ensure safe transfers - Active participation in OT sessions RESTRAINT-RELATED GOALS: STRATEGIES TO ACHIEVE RESTRAINT GOALS: Outcome: Improving Goal Evaluation: alert and pleasant 2 person assist with sanam hernandez received one oxycodone today for hip p ain samy removed today per md order incisions well approximated and no drainage sc x2 tod ay for pvr's greater than 400 cms intact trace edema skin tears throughout body drsgs intact encourage food and water intake receives protein shakes with meals lan of Care - El Rose PTA - 01/01/2017 4:34 PM PDTFormatting of this note might be different from the orig inal. Problem: Patient Care Overview (Adult) Goal: Care Team Goals & Evaluation PROBLEM-RELATED GOALS: 1. Dora will maintain adequate oxygenation via oximetry with SpO2 >90%. 2. Dora will have breath sounds consistent with baseline function throughout stay and rev erse airway bronchospasm when indicated. 3. Dora will call out appropriately for assistance and have no falls during hospitalizati on through 01/18/17 4. Dora's pain will be controlled to allow for activity and rest through 01/18/17 5. Dora will eat 75-100% most meals and accept health shakes through 01/18/17 6. Dora will have a bm qod while in rehab through 01/18/17 7. Dora will void w/o difficulties and not require IC by 01/03/17 8. Leighanns skin tears and abrasions will heal w/o s/sx infection 9. Dora will transfer with 1 person A by 01/10/17 10. Geovany will be SBA- setup for his ADLs & functional mobility by 01/25/17. STRATEGY TO ACHIEVE GOALS: - Monitor saturations via oximetry and titrate to order as indicated. - Administer respiratory medications as ordered and adjust with use of respiratory protocol s. -monitor for s/sx pain and medicate prn -monitor for s/sx infection, clean wounds prn and perform dressing changes prn -monitor bm's and medicate prn -encourage po intake and ensure pt is drinking health shakes -monitor voids and perform bladder scans -encourage independence with ambulation and ensure safe transfers - Active participation in OT sessions RESTRAINT-RELATED GOALS: STRATEGIES TO ACHIEVE RESTRAINT GOALS: Outcome: Improving Physical Therapy Plan of Care Treatment Note Summary: Pt states he is somewhat fatigued from activity today, though very willing to par ticipate. Bed mobility training for supine to sit, transfer training with sanam steady for s it to stand, to w/c. Transported to rehab gym for LE strengthening, incuding theraband resi sted ankle pumps, HS curls, hip abduction. Active LAQ, ball squeeze. Standing in // bars, with moderate assist to come to standing, standing ~30 seconds x 2, cued for smooth transiti on stand to sit. W/C mobility training, with insturuction in use of UE's for propelling, as well as use of LE's. Transfer training using sanam steady for sit to stand, to sit on edge of bed. Transfer training for sit to supine, requires min assist to return to supine. Posi tioned comfotrtably, call light given. Physical Therapy Discharge Recommendations are: Recommended discharge disposition: inpatient rehabilitation facility Post discharge physical therapy recommendation: ongoing high intensity therapy, able to to lerate 3 hours of therapy/day, pt is motivated participant, will benefit from structured set ting, family involved/supportive, minimum 5 days of therapy/week Equipment Recommendations: 2 wheeled walker (FWW), wheelchair components (comment), wheelc hair, wheelchair cushion Planned Interventions: balance training, bed mobility training, gait training, home exerci se program, patient/family education, orthotic fitting/training, transfer training, wheelcha ir management/propulsion training, ROM (Range of Motion), stair training, strengthening Recommended Frequency: (1-2x/day) Patient Status/Goals: Reflects last filed data and may be from multiple contributors. Transfers bed to via stand pivot with sanam steady use with 2 person. Bed-Chair, Level of [place]: maximal assist (25% patient effort), 2 person assist requ ired Chair-Bed, Level of [place]: 2 person assist required, maximal assist (25% patient eff ort) [id number]-[id number]-Vaf, Assistive Device: wheelchair Sit-Stand, Level of [place]: 2 person assist required Stand-Sit, Level of [place]: 2 person assist required [id number], Assistive Device: other (see comments) (Sanam steady) Safety Issues: sequencing ability decreased, weight-shifting ability decreased Impairments: pain, strength decreased, impaired balance, postural control impaired Bed Mobility Requires cues for moving BLEs and needs addl time and min A overall Assistive Device: HOB elevated, bed rails Scoot/Bridge, Level of [place]: moderate assist (50% patient effort) Supine to Sit, Level of [place]: minimal assist (75% patient effort) Sit to Supine, Level of [place]: minimal assist (75% patient effort) Safety Issues: decreased use of arms for pushing/pulling, decreased use of legs for bridgin g/pushing, impaired trunk control for bed mobility Impairments: decreased flexibility, strength decreased, impaired balance, pain Wheelchair Mobility Patient requires set up, verbal instruction and supervision, occasionally requiring minimal assist for hand over hand sequencing of lower extremity wheelchair mobility technique. Pat ient not getting good traction with his feet in socks on the floor and needing additional as sist because of this. Type: recline Surface: indoor, tile Distance (feet): 30 Level of [place]: minimal assist (75% patient effort) Propulsion Technique: bilateral UE's Components: brakes Components Management Assistance: moderate assist (50% patients effort) Balance Therapeutic Exercise Seated exercises: bilateral, ankle pumps, hip abduction/adduction, marching, long arc quads , knee flexion ROM BLEs unable to move actively through full range, pt reports pain in knees prevents movement at this time Strength Unable to formally assess BLE mms however he is able to support full body weight against gr avity x 60 seconds in Sanam Steady L LE Strength: grossly 3-/5 R LE Strength: grossly 3-/5 PT Goal Review Date Flowsheet Row Most Recent Value STG Review Date 01/08/17 at 01/01/2017 1115 LTG Review Date 01/22/17 at 01/01/2017 1115 All Bed Mobility Goal Flowsheet Row Most Recent Value STG Status progressing at 01/01/2017 1625 STG [place] contact guard assist at 01/01/2017 1115 LTG Status progressing at 01/01/2017 1625 LTG [place] modified independent at 01/01/2017 1115 Roll Left/Right Goal Flowsheet Row Most Recent Value STG Status progressing at 01/01/2017 1625 STG [place] contact guard assist at 01/01/2017 1115 LTG Status progressing at 01/01/2017 1625 LTG [place] modified independent at 01/01/2017 1115 Scoot/Bridge Goal Flowsheet Row Most Recent Value STG Status progressing at 01/01/2017 1625 STG [place] contact guard assist at 01/01/2017 1115 LTG Status progressing at 01/01/2017 1625 LTG [place] modified independent at 01/01/2017 1115 Eblcnk-Kcp-Zggujh Goal Flowsheet Row Most Recent Value STG Status progressing at 01/01/2017 1625 STG [place] contact guard assist at 01/01/2017 1115 STG Assistive Device bed rails at 01/01/2017 1115 LTG Status progressing at 01/01/2017 1625 LTG [place] modified independent at 01/01/2017 1115 LTG Assistive Device bed rails at 01/01/2017 1115 Jbooxekoh-Wcl-Aqjmilqrp Goal Flowsheet Row Most Recent Value STG Status progressing at 01/01/2017 1625 STG [place] Level contact guard assist at 01/01/2017 1115 LTG Status progressing at 01/01/2017 1625 LTG [place] modified independent at 01/01/2017 1115 All Transfers Goal Flowsheet Row Most Recent Value STG Status progressing at 01/01/2017 1625 STG [place] contact guard assist at 01/01/2017 1115 STG Comments Using Sanam Stedy at 01/01/2017 1115 LTG Status progressing at 01/01/2017 1625 LTG [place] modified independent at 01/01/2017 1115 LTG Assistive Device 2 wheeled walker (FWW) at 01/01/2017 1115 Gait Goal Flowsheet Row Most Recent Value STG Status continued at 01/01/2017 1625 STG [place] minimum assist (75% patient effort) at 01/01/2017 1115 STG Assistive Device 2 wheeled walker (FWW) at 01/01/2017 1115 STG Distance (feet) 15 at 01/01/2017 1115 LTG Status continued at 01/01/2017 1625 LTG [place] modified independent at 01/01/2017 1115 LTG Assistive Device 2 wheeled walker (FWW) at 01/01/2017 1115 LTG Distance (feet) 50 at 01/01/2017 1115 Stair Goal Flowsheet Row Most Recent Value STG Status continued at 01/01/2017 1625 STG [place] minimum assist (75% patient effort) at 01/01/2017 1115 STG Assistive Device 2 rails at 01/01/2017 1115 STG Number of Stairs 8 at 01/01/2017 1115 LTG Status continued at 01/01/2017 1625 LTG [place] modified independent at 01/01/2017 1115 LTG Assistive Device 2 rails at 01/01/2017 1115 LTG Number of Stairs 8 at 01/01/2017 1115 Wheelchair Goal Flowsheet Row Most Recent Value STG Status progressing at 01/01/2017 1625 STG pt self propell manual WC 50 ft supervised with BUEs at 01/01/2017 1115 LTG Status progressing at 01/01/2017 1625 Additional Goal #1 PT Flowsheet Row Most Recent Value STG Status progressing at 01/01/2017 1625 STG Pt will tolerate standing at Sanam Stedy x 1min w/ supervision only at 01/01/2017 1115 LTG Status new at 01/01/2017 1115 LTG pt kenneth standing with fww for 3 minutes supervised at 01/01/2017 1115 Electronically signed by: Prasanth Rose PTA, 01/01/2017 16:33 lan of Care - Hyacinth Andres, PROFESSIONAL SYSTEM ADMINISTRATOR - 01/01/2017 3:41 PM PDT Problem: Patient Care Overview (Adult) Goal: Care Team Goals & Evaluation PROBLEM-RELATED GOALS: 1. Dora will maintain adequate oxygenation via oximetry with SpO2 >90%. 2. Dora will have breath sounds consistent with baseline function throughout stay and rev erse airway bronchospasm when indicated. 3. Dora will call out appropriately for assistance and have no falls during hospitalizati on through 01/18/17 4. Dora's pain will be controlled to allow for activity and rest through 01/18/17 5. Dora will eat 75-100% most meals and accept health shakes through 01/18/17 6. Dora will have a bm qod while in rehab through 01/18/17 7. Dora will void w/o difficulties and not require IC by 01/03/17 8. Dora's skin tears and abrasions will heal w/o s/sx infection 9. Dora will transfer with 1 person A by 01/10/17 10. Geovany will be SBA- setup for his ADLs & functional mobility by 01/25/17. STRATEGY TO ACHIEVE GOALS: - Monitor saturations via oximetry and titrate to order as indicated. - Administer respiratory medications as ordered and adjust with use of respiratory protocol s. -monitor for s/sx pain and medicate prn -monitor for s/sx infection, clean wounds prn and perform dressing changes prn -monitor bm's and medicate prn -encourage po intake and ensure pt is drinking health shakes -monitor voids and perform bladder scans -encourage independence with ambulation and ensure safe transfers - Active participation in OT sessions RESTRAINT-RELATED GOALS: STRATEGIES TO ACHIEVE RESTRAINT GOALS: Outcome: Improving Goal Evaluation: Severity Score 2 Class 1 SpO2 96 % on room airSeverity Score 0-4 Breath sounds are c lear. No PRN nebs needed ITEM 0 1 2 3 4 0 Respiratory History No Smoking history Current tobacco use Up to 10 Pack year history. Simple home regimen Known Pulmonary Disease 20 pack year history Complex Home regimen 30+ pack year history Severe Pulmonary Disease or exacerbation 1 Surgery Status (current admission) No surgery Minor surgery Lower abdominal rib fractures Thoracic or uppe r abdominal Thoracic with pulmonary disease or Central Nervous System 0 Chest X-RAY Clear or Normal baseline Unavailable Improving/clearing Abnormal, Unilateral or mild Infiltrates or atelectasis, Chronic changes Infiltrates mild bilateral or unilateral or pleural effusions extensive Inf iltrates, atelectasis or pleural effusions, pneumothorax 0 Respiratory Pattern Regular pattern Respiratory Rate:8-20 Increased Respiratory Rate, labored Dyspnea on exertion, irregular pattern Use of accessory muscles, prolonged expirato ry phase nasal flaring Severe Dyspnea , Purse Lip Breathing, Use of accessory muscles 0 Breath Sounds Clear Diminished unilaterally Diminished bilaterally &/or crackles Wheezing or Rhonchi &/or absent unilateral Absent bilaterally 0 Cough Strong, non productive Moderate, loose, productive Weak, non-productive Weak, ineffective Non-spontaneous or may require suctioning 0 Sputum None Scant / Thin White/clear Moderate Beige/ yellow Large / Thick Dark Green/Brown Copious / Plugs Hemoptysis compa 0 LOC Alert, oriented, cooperative Disoriented, follows commands Obtunded, arousable, follo ws commands Obtunded, uncooperative, sedated Comatose 0 Oxygen Demand Room air Baseline 1-2 liters 3-6 liters >7 Liters Oxymizer to > 55% 60% or greater Total Severity Score (SS) Class 0-3 1 4-7 2 8-11 3 12-14 4 15+ 5 lan of Care - Arely Faria COTA - 01/01/2017 3:15 PM PDT Problem: Patient Care Overview (Adult) Goal: Care Team Goals & Evaluation PROBLEM-RELATED GOALS: 1. Dora will maintain adequate oxygenation via oximetry with SpO2 >90%. 2. Dora will have breath sounds consistent with baseline function throughout stay and rev erse airway bronchospasm when indicated. 3. Dora will call out appropriately for assistance and have no falls during hospitalizati on through 01/18/17 4. Dora's pain will be controlled to allow for activity and rest through 01/18/17 5. Dora will eat 75-100% most meals and accept health shakes through 01/18/17 6. Dora will have a bm qod while in rehab through 01/18/17 7. Dora will void w/o difficulties and not require IC by 01/03/17 8. Dora's skin tears and abrasions will heal w/o s/sx infection 9. Dora will transfer with 1 person A by 01/10/17 10. Geovany will be SBA- setup for his ADLs & functional mobility by 01/25/17. STRATEGY TO ACHIEVE GOALS: - Monitor saturations via oximetry and titrate to order as indicated. - Administer respiratory medications as ordered and adjust with use of respiratory protocol s. -monitor for s/sx pain and medicate prn -monitor for s/sx infection, clean wounds prn and perform dressing changes prn -monitor bm's and medicate prn -encourage po intake and ensure pt is drinking health shakes -monitor voids and perform bladder scans -encourage independence with ambulation and ensure safe transfers - Active participation in OT sessions RESTRAINT-RELATED GOALS: STRATEGIES TO ACHIEVE RESTRAINT GOALS: IRF Occupational Therapy Plan of Care Initial Evaluation, Treatment Note Summary: Pt seen for IRF OT evaluation. Had multiple nursing interventions- straight cath ing, orthostatic BPs. Pt is alert & oriented, motivated and wanting to shower. He is recove ring from bilateral femur fractures, WBAT, see H&P for extensive hx and surgical interventio ns. Occupational Therapy Discharge Recommendations are: Recommended discharge disposition: home with assist (TBD) Post discharge occupational therapy recommendation: home health, pt is motivated participa nt (TBD) Equipment Recommendations: 2 wheeled walker (FWW), tub bench (TBD) Planned Interventions:ADL retraining, strengthening, transfer training, bed mobility traini ng, IADL retraining, balance training, prosthetic fitting/training, ROM (Range of Motion) (e jeanine mgmt as indicated) Recommended Frequency: (6-7x/week) Patient Status/Goals: Reflects last filed data and may be from multiple contributors. ADLs Pt attempted to doff socks sitting EOB, he can reach ankle, but he is not able to push sock down off heal. introduced casserole preparer, and sock aid. LB Dressing, Level of [place]: moderate assist (50% patient effort) Assistive Device: casserole preparer, sock-aid LB Dressing Assess/Train, Position: sitting LB Dressing Assess/Train, Impairments: decreased flexibility, pain Pt brushed his teeth at sink using sanam steady Grooming, Level of [place]: stand by assist Assistive Device: none Grooming Assess/Train, Position: sitting Grooming Assess/Train, Impairments: strength decreased, impaired balance, pain Bed Mobility Assistive Device: HOB elevated Scoot/Bridge, Level of [place]: moderate assist (50% patient effort) Supine to Sit, Level of [place]: minimal assist (75% patient effort) Sit to Supine, Level of [place]: minimal assist (75% patient effort) Safety Issues: decreased use of arms for pushing/pulling, decreased use of legs for bridgin g/pushing, impaired trunk control for bed mobility Impairments: decreased flexibility, strength decreased, impaired balance, pain, ROM decreas ed Transfers Sanam Steady to BR for grooming tasks Sit-Stand, Level of [place]: set up required, minimal assist (75% patient effort) (sit to stand at sanam steady with bed elevated) Stand-Sit, Level of [place]: moderate assist (50% patient effort) [id number]-[id number]-Alc, Assistive Device: (Sanam Steady) Walk-in shower, Level of [place]: dependent ( less than 25% patient effort), 2 person assist required, verbal cues required Walk-in shower, Assistive Device: shower chair (rolling, recliner) Safety Issues: sequencing ability decreased, weight-shifting ability decreased, step length decreased, balance decreased during turns Impairments: pain, strength decreased, impaired balance, postural control impaired, ROM dec reased OT Goal Review Date Flowsheet Row Most Recent Value STG Review Date 01/08/17 at 01/01/2017 1338 LTG Review Date 01/25/17 at 01/01/2017 1338 Grooming Goal Flowsheet Row Most Recent Value STG Status new at 01/01/2017 1338 STG Position sitting in chair at 01/01/2017 1338 LTG Status new at 01/01/2017 1338 LTG [place] modified independent at 01/01/2017 1338 Bathing Goal Flowsheet Row Most Recent Value STG Status new at 01/01/2017 1338 STG [place] Level contact guard assist at 01/01/2017 1338 STG Adaptive Equpiment shower chair, tub bench at 01/01/2017 1338 LTG Status new at 01/01/2017 1338 LTG [place] Level stand by assist at 01/01/2017 1338 UB Dressing Goal Flowsheet Row Most Recent Value STG Status new at 01/01/2017 1338 STG [place] Level stand by assist at 01/01/2017 1338 LTG Status new at 01/01/2017 1338 LTG [place] Level set up required at 01/01/2017 1338 LB Dressing Goal Flowsheet Row Most Recent Value STG Status new at 01/01/2017 1338 STG [place] Level contact guard assist at 01/01/2017 1338 LTG Status new at 01/01/2017 1338 LTG [place] Level set up required at 01/01/2017 1338 Toileting Goal Flowsheet Row Most Recent Value STG Status new at 01/01/2017 1338 STG [place] Level minimum assist (75% patient effort) at 01/01/2017 1338 LTG Status new at 01/01/2017 1338 LTG [place] Level stand by assist at 01/01/2017 1338 Toilet Transfer Goal Flowsheet Row Most Recent Value STG Status new at 01/01/2017 1338 STG [place] Level minimum assist (75% patient effort) at 01/01/2017 1338 LTG Status new at 01/01/2017 1338 LTG [place] Level supervised at 01/01/2017 1338 Electronically signed by: Arely Pool, Certified Health Care Marketing Manager, 2016 15:05 lan of Care - Ad carlos Rochelle Rojas, REINFORCED CONCRETE INSPECTOR - 01/01/2017 2:01 PM PDTProblem: Discharge Planning Goal: Patient will be discharged in a safe manner Outcome: Improving This caser shoe parts met with patient and conducted the BIMS. Patient lives with his Ella arredondo in [place], [place]. He states that he has eight stairs to get up into his home where his kalee ing quarters are. He states that he knows that there is concern about his ability to get up the stairs but states that he has goals for himself and is motivated to get back home. If ne ed be, he is willing to put in a chair lift. He states that funds are not a issue. We dicussed about hiring more care at home and home PT and patient states that he would be willing to hire care givers and has a PT friend in [place] who he would call to do home vi sits. He has a FWW at home. Will await to see what other DME is needed and make sure this is kianna watson prior to his discharge home. This CM spoke with his Rivka who states that she will be here daily and will also be a vailable by phone if need be. CM to continue to follow patient. Electronically signed by: ADELITA Vallejo 7 14:01 lan of Care - Alka cerdaSajan, PT - 01/01/2017 12:00 PM PDTFormatting of this note might be different fr om the original. Problem: Patient Care Overview (Adult) Goal: Care Team Goals & Evaluation PROBLEM-RELATED GOALS: 1. Dora will maintain adequate oxygenation via oximetry with SpO2 >90%. 2. Dora will have breath sounds consistent with baseline function throughout stay and rev erse airway bronchospasm when indicated. 3. Dora will call out appropriately for assistance and have no falls during hospitalizati on through 01/18/17 4. Dora's pain will be controlled to allow for activity and rest through 01/18/17 5. Dora will eat 75-100% most meals and accept health shakes through 01/18/17 6. Dora will have a bm qod while in rehab through 01/18/17 7. Dora will void w/o difficulties and not require IC by 01/03/17 8. Dora's skin tears and abrasions will heal w/o s/sx infection 9. Dora will transfer with 1 person A by 01/10/17 STRATEGY TO ACHIEVE GOALS: - Monitor saturations via oximetry and titrate to order as indicated. - Administer respiratory medications as ordered and adjust with use of respiratory protocol s. -monitor for s/sx pain and medicate prn -monitor for s/sx infection, clean wounds prn and perform dressing changes prn -monitor bm's and medicate prn -encourage po intake and ensure pt is drinking health shakes -monitor voids and perform bladder scans -encourage independence with ambulation and ensure safe transfers RESTRAINT-RELATED GOALS: STRATEGIES TO ACHIEVE RESTRAINT GOALS: Outcome: Improving IRF Physical Therapy Plan of Care Initial Evaluation, Treatment Note Summary: PT orders received, chart reviewed. Patient seen for IRF PT tiffanie. Patient is s compa post bilateral femur fracture, with IM rodding after mechanical fall at home approxima tely 2 weeks ago. He states he is determined to go back home to live with his , but has 8 steps to enter his home with railings on both sides. Use of Sanam steady for transfers ou t of bed to high back reclining wheelchair with two-person assist.. See notes below for func tional mobility transfers and scores. Patient using sign fit recumbent stepper for therapeu tic exercise as noted below. Patient handed off to dining group while up in wheelchair afte r physical therapy evaluation. Physical Therapy Discharge Recommendations are: Recommended discharge disposition: inpatient rehabilitation facility Post discharge physical therapy recommendation: ongoing high intensity therapy, able to to lerate 3 hours of therapy/day, pt is motivated participant, will benefit from structured set ting, family involved/supportive, minimum 5 days of therapy/week Equipment Recommendations: 2 wheeled walker (FWW), wheelchair components (comment), wheelc hair, wheelchair cushion Planned Interventions: balance training, bed mobility training, gait training, home exerci se program, patient/family education, orthotic fitting/training, transfer training, wheelcha ir management/propulsion training, ROM (Range of Motion), stair training, strengthening Frequency: (1-2x/day) Patient Status/Goals: Reflects last filed data and may be from multiple contributors. Bed Mobility Requires cues for moving BLEs and needs addl time and min A overall Assistive Device: HOB elevated, bed rails Scoot/Bridge, Level of [place]: moderate assist (50% patient effort) Supine to Sit, Level of [place]: moderate assist (50% patient effort) Sit to Supine, Level of [place]: moderate assist (50% patient effort) Safety Issues: decreased use of arms for pushing/pulling, decreased use of legs for bridgin g/pushing, impaired trunk control for bed mobility Impairments: decreased flexibility, strength decreased, impaired balance, pain Transfers bed to via stand pivot with sanam steady use with 2 person. Bed-Chair, Level of [place]: maximal assist (25% patient effort), 2 person assist requ ired Chair-Bed, Level of [place]: 2 person assist required, maximal assist (25% patient eff ort) Own-Xyddf-Nws, Assistive Device: wheelchair Safety Issues: sequencing ability decreased, weight-shifting ability decreased Impairments: pain, strength decreased, impaired balance, postural control impaired Gait 2 stesp in II bars x 2 reps with 2 person assist, body wt supported by BUes on II bars Level of [place]: maximal assist (25% patient effort), 2 person assist required Assistive Device: (II bars) Distance (feet): 2 Stairs 4 inch step in II bars only Number of Stairs: 1 Handrail Location: both sides Level of [place]: maximal assist (25% patient effort), 2 person assist required Assistive Device: 2 rails Technique Used: step to step (ascending), step to step (descending) Safety Issues: balance decreased during turns Impairments: pain, impaired balance, strength decreased, coordination impaired, motor contr ol impaired Wheelchair Mobility Patient requires set up, verbal instruction and supervision, occasionally requiring minimal assist for hand over hand sequencing of lower extremity wheelchair mobility technique. Laxmi ient not getting good traction with his feet in socks on the floor and needing additional as sist because of this. Type: recline Surface: indoor Distance (feet): 15 Level of [place]: minimal assist (75% patient effort) Propulsion Technique: bilateral LE's Components: brakes Components Management Assistance: moderate assist (50% patients effort) Balance fair- Therapeutic Exercise SCIFIt recumbent stepper on hills level 4.o for B UE and B LE sterngthening, endurance and ROM for 15 min total Functional Endurance fair ROM BLEs unable to move actively through full range, pt reports pain in knees prevents movement at this time Strength Unable to formally assess BLE mms however he is able to support full body weight against gr avity x 60 seconds in Sanam Steady L LE Strength: grossly 3-/5 R LE Strength: grossly 3-/5 PT Goal Review Date Flowsheet Row Most Recent Value STG Review Date 01/08/17 at 01/01/2017 1115 LTG Review Date 01/22/17 at 01/01/2017 1115 All Bed Mobility Goal Flowsheet Row Most Recent Value STG Status new at 01/01/2017 1115 STG [place] Level contact guard assist at 01/01/2017 1115 LTG Status new at 01/01/2017 1115 LTG [place] Level modified independent at 01/01/2017 1115 Roll Left/Right Goal Flowsheet Row Most Recent Value STG Status new at 01/01/2017 1115 STG [place] Level contact guard assist at 01/01/2017 1115 LTG Status new at 01/01/2017 1115 LTG [place] Level modified independent at 01/01/2017 1115 Scoot/Bridge Goal Flowsheet Row Most Recent Value STG Status new at 01/01/2017 1115 STG [place] Level contact guard assist at 01/01/2017 1115 LTG Status new at 01/01/2017 1115 LTG [place] Level modified independent at 01/01/2017 1115 Pucomh-Bky-Ypxbgr Goal Flowsheet Row Most Recent Value STG Status new at 01/01/2017 1115 STG [place] Level contact guard assist at 01/01/2017 1115 STG Assistive Device bed rails at 01/01/2017 1115 LTG Status new at 01/01/2017 1115 LTG [place] Level modified independent at 01/01/2017 1115 LTG Assistive Device bed rails at 01/01/2017 1115 Gvixshdgs-Tup-Rjfkzvruc Goal Flowsheet Row Most Recent Value STG Status new at 01/01/2017 1115 STG [place] Level contact guard assist at 01/01/2017 1115 LTG Status new at 01/01/2017 1115 LTG [place] Level modified independent at 01/01/2017 1115 All Transfers Goal Flowsheet Row Most Recent Value STG Status new at 01/01/2017 1115 STG [place] Level contact guard assist at 01/01/2017 1115 STG Comments Using Sanam Stedy at 01/01/2017 1115 LTG Status new at 01/01/2017 1115 LTG [place] Level modified independent at 01/01/2017 1115 LTG Assistive Device 2 wheeled walker (FWW) at 01/01/2017 1115 Gait Goal Flowsheet Row Most Recent Value STG Status new at 01/01/2017 1115 STG [place] Level minimum assist (75% patient effort) at 01/01/2017 1115 STG Assistive Device 2 wheeled walker (FWW) at 01/01/2017 1115 STG Distance (feet) 15 at 01/01/2017 1115 LTG Status new at 01/01/2017 1115 LTG [place] Level modified independent at 01/01/2017 1115 LTG Assistive Device 2 wheeled walker (FWW) at 01/01/2017 1115 LTG Distance (feet) 50 at 01/01/2017 1115 Stair Goal Flowsheet Row Most Recent Value STG Status new at 01/01/2017 1115 STG [place] Level minimum assist (75% patient effort) at 01/01/2017 1115 STG Assistive Device 2 rails at 01/01/2017 1115 STG Number of Stairs 8 at 01/01/2017 1115 LTG Status new at 01/01/2017 1115 LTG [place] Level modified independent at 01/01/2017 1115 LTG Assistive Device 2 rails at 01/01/2017 1115 LTG Number of Stairs 8 at 01/01/2017 1115 Wheelchair Goal Flowsheet Row Most Recent Value STG Status new at 01/01/2017 1115 STG pt self propell manual WC 50 ft supervised with BUEs at 01/01/2017 1115 Additional Goal #1 PT Flowsheet Row Most Recent Value STG Status new at 01/01/2017 1115 STG Pt will tolerate standing at Sanam Stedy x 1min w/ supervision only at 01/01/2017 1115 LTG Status new at 01/01/2017 1115 LTG pt kenneth standing with fww for 3 minutes supervised at 01/01/2017 1115 Electronically signed by: Sajan Rollins, PT, 01/01/2017 12:54 lan of Care - Janet Funez, OT - 01/01/2017 10:38 AM PDTFormatting of this note might be different fr om the original. Problem: Patient Care Overview (Adult) Goal: Care Team Goals & Evaluation PROBLEM-RELATED GOALS: 1. Dora will maintain adequate oxygenation via oximetry with SpO2 >90%. 2. Dora will have breath sounds consistent with baseline function throughout stay and rev erse airway bronchospasm when indicated. 3. Dora will call out appropriately for assistance and have no falls during hospitalizati on through 01/18/17 4. Dora's pain will be controlled to allow for activity and rest through 01/18/17 5. Dora will eat 75-100% most meals and accept health shakes through 01/18/17 6. Dora will have a bm qod while in rehab through 01/18/17 7. Dora will void w/o difficulties and not require IC by 01/03/17 8. Dora's skin tears and abrasions will heal w/o s/sx infection 9. Dora will transfer with 1 person A by 01/10/17 10. Geovany will be SBA- setup for his ADLs & functional mobility by 01/25/17. STRATEGY TO ACHIEVE GOALS: - Monitor saturations via oximetry and titrate to order as indicated. - Administer respiratory medications as ordered and adjust with use of respiratory protocol s. -monitor for s/sx pain and medicate prn -monitor for s/sx infection, clean wounds prn and perform dressing changes prn -monitor bm's and medicate prn -encourage po intake and ensure pt is drinking health shakes -monitor voids and perform bladder scans -encourage independence with ambulation and ensure safe transfers - Active participation in OT sessions RESTRAINT-RELATED GOALS: STRATEGIES TO ACHIEVE RESTRAINT GOALS: IRF Occupational Therapy Plan of Care Initial Evaluation, Treatment Note Summary: Pt seen for IRF OT evaluation. Had multiple nursing interventions- straight cath ing, orthostatic BPs. Pt is alert & oriented, motivated and wanting to shower. He is recove ring from bilateral femur fractures, WBAT, see H&P for extensive hx and surgical interventio ns. Patient presents to occupational therapy with extensive deficits in BADLs, functional mobility, activity tolerance; gross motor strength; skin integrity. Objective exam reveals i mpairments with U/LB dressing, impaired gross motor strength for ADLs & mobility, activity t olerance, LE strength & ROM. These impairments and diagnosis are causing functional limitati ons with patient s ability to participate in all activities of daily living, functional mo bility, and gross activity tolerance affecting participation in the following activities bas ic dressing tasks, toileting, functional transfer to toilet/shower/bed, preparing light meal - participating in functions necessary to return home. Barriers to discharge include prolong ed hospitalization and immobility; bilateral LEs fxs; elderly pt and elderly ; probable need for increased level of assistance from PLOF; catheter needs. Occupational Therapy Discharge Recommendations are: Recommended discharge disposition: home with assist (TBD) Post discharge occupational therapy recommendation: home health, pt is motivated participa nt (TBD) Equipment Recommendations: 2 wheeled walker (FWW), tub bench (TBD) Planned Interventions:ADL retraining, strengthening, transfer training, bed mobility traini ng, IADL retraining, balance training, prosthetic fitting/training, ROM (Range of Motion) (e jeanine mgmt as indicated) Recommended Frequency: (6-7x/week) Patient Status/Goals: Reflects last filed data and may be from multiple contributors. ADLs SaraStedy transfer to reclining, rolling shower chair. Pt seated on chair for duration of shower. With effort able to slowly scoot hips as needed. Able to reach to lower legs, assi st for feet. Bathing, Level of [place]: minimal assist (75% patient effort), verbal cues required, set up required Assistive Device: hand-held shower head, shower chair rolling, long-handled sponge Bathing Assess/Train, Position: sitting Bathing Assess/Train, Impairments: decreased flexibility, ROM decreased, strength decreased , impaired balance, motor control impaired, pain Functional Endurance Fair- considering pt's current length of stay, immobilization Cognitive Mood/Behavior: cooperative, calm, behavior appropriate to situation Orientation: oriented x 4 Speech: logical, spontaneous, clear Follows Commands/Answers Questions: 100% of the time Bed Mobility Supine to Sit, Level of [place]: moderate assist (50% patient effort) Safety Issues: decreased use of arms for pushing/pulling, decreased use of legs for bridgin g/pushing, impaired trunk control for bed mobility Impairments: decreased flexibility, strength decreased, impaired balance, pain, ROM decreas ed Transfers SaraStedy from bed to rolling shower chair. 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 Strength L UE Strength: 4+/5 R UE Strength: 4+/5 OT Goal Review Date Flowsheet Row Most Recent Value STG Review Date 01/08/17 at 01/01/2017 1338 LTG Review Date 01/25/17 at 01/01/2017 1338 Grooming Goal Flowsheet Row Most Recent Value STG Status new at 01/01/2017 1338 STG Position sitting in chair at 01/01/2017 1338 LTG Status new at 01/01/2017 1338 LTG [place] Level modified independent at 01/01/2017 1338 Bathing Goal Flowsheet Row Most Recent Value STG Status new at 01/01/2017 1338 STG [place] Level contact guard assist at 01/01/2017 1338 STG Adaptive Equpiment shower chair, tub bench at 01/01/2017 1338 LTG Status new at 01/01/2017 1338 LTG [place] Level stand by assist at 01/01/2017 1338 UB Dressing Goal Flowsheet Row Most Recent Value STG Status new at 01/01/2017 1338 STG [place] Level stand by assist at 01/01/2017 1338 LTG Status new at 01/01/2017 1338 LTG [place] Level set up required at 01/01/2017 1338 LB Dressing Goal Flowsheet Row Most Recent Value STG Status new at 01/01/2017 1338 STG [place] Level contact guard assist at 01/01/2017 1338 LTG Status new at 01/01/2017 1338 LTG [place] Level set up required at 01/01/2017 1338 Toileting Goal Flowsheet Row Most Recent Value STG Status new at 01/01/2017 1338 STG [place] Level minimum assist (75% patient effort) at 01/01/2017 1338 LTG Status new at 01/01/2017 1338 LTG [place] Level stand by assist at 01/01/2017 1338 Toilet Transfer Goal Flowsheet Row Most Recent Value STG Status new at 01/01/2017 1338 STG [place] Level minimum assist (75% patient effort) at 01/01/2017 1338 LTG Status new at 01/01/2017 1338 LTG [place] Level supervised at 01/01/2017 1338 Electronically signed by: Janet Woodard, OT, 01/01/2017 13:47 lan of Care - Lashaun Mei RN - 01/01/2017 4:49 AM PDTProblem: Patient Care Overview (Adult) Goal: Care Team Goals & Evaluation PROBLEM-RELATED GOALS: 1. Dora will maintain adequate oxygenation via oximetry with SpO2 >90%. 2. Dora will have breath sounds consistent with baseline function throughout stay and rev erse airway bronchospasm when indicated. 3. Dora will call out appropriately for assistance and have no falls during hospitalizati on through 01/18/17 4. Dora's pain will be controlled to allow for activity and rest through 01/18/17 5. Dora will eat 75-100% most meals and accept health shakes through 01/18/17 6. Dora will have a bm qod while in rehab through 01/18/17 7. Dora will void w/o difficulties and not require IC by 01/03/17 8. Dora's skin tears and abrasions will heal w/o s/sx infection 9. Dora will transfer with 1 person A by 01/10/17 STRATEGY TO ACHIEVE GOALS: - Monitor saturations via oximetry and titrate to order as indicated. - Administer respiratory medications as ordered and adjust with use of respiratory protocol s. -monitor for s/sx pain and medicate prn -monitor for s/sx infection, clean wounds prn and perform dressing changes prn -monitor bm's and medicate prn -encourage po intake and ensure pt is drinking health shakes -monitor voids and perform bladder scans -encourage independence with ambulation and ensure safe transfers RESTRAINT-RELATED GOALS: STRATEGIES TO ACHIEVE RESTRAINT GOALS: Outcome: Improving Goal Evaluation: Pt slept well. Uses call light appropriately. Denied pain. Requires 2 assist with sera chema dy for transfers. WBAT BLE. CMS intact. Multiple ST's to BUE/BLE. bilat hip incisions healin g with samy in place. Reports heel discomfort, right heel noted with dry scab. Both heels floated on pillows. Pt unable to void, st cath x 1. lan of Care - Sabra Gupta RN - 12/31/2016 7:46 PM PDTProblem: Patient Care Overview (Adult) Goal: Care Team Goals & Evaluation PROBLEM-RELATED GOALS: 1. Dora will maintain adequate oxygenation via oximetry with SpO2 >90%. 2. Dora will have breath sounds consistent with baseline function throughout stay and rev erse airway bronchospasm when indicated. 3. Dora will call out appropriately for assistance and have no falls during hospitalizati on through 01/18/17 4. Dora's pain will be controlled to allow for activity and rest through 01/18/17 5. Dora will eat 75-100% most meals and accept health shakes through 01/18/17 6. Dora will have a bm qod while in rehab through 01/18/17 7. Dora will void w/o difficulties and not require IC by 01/03/17 8. Dora's skin tears and abrasions will heal w/o s/sx infection 9. Dora will transfer with 1 person A by 01/10/17 STRATEGY TO ACHIEVE GOALS: - Monitor saturations via oximetry and titrate to order as indicated. - Administer respiratory medications as ordered and adjust with use of respiratory protocol s. -monitor for s/sx pain and medicate prn -monitor for s/sx infection, clean wounds prn and perform dressing changes prn -monitor bm's and medicate prn -encourage po intake and ensure pt is drinking health shakes -monitor voids and perform bladder scans -encourage independence with ambulation and ensure safe transfers RESTRAINT-RELATED GOALS: STRATEGIES TO ACHIEVE RESTRAINT GOALS: Outcome: Improving Goal Evaluation: 1. On room air, no c/o sob, encouraged to cough and deep breath 2. LS clear t/o 3. Calling out appropriately, no falls 4. No c/o pain during day shift, no grimacing and no s/sx distress 5. Pt ate 75-100% most meals today but required encouragement 6. LBM today x2, had one in BSC and refused the second in the [facility] and requested bed rankin r/t "i am too exhausted" 7. Continues with urination retention, required to be ICx1 this evening 8. Skin tears, incisions and abrasions covered w dressings c/d/i 9. Transferring w 2 person A+lift lan of Care - Hyacinth Andres, PROFESSIONAL SYSTEM ADMINISTRATOR - 12/31/2016 4:34 PM PDTFormatting of this note might be different from the or iginal. Problem: Patient Care Overview (Adult) Goal: Care Team Goals & Evaluation PROBLEM-RELATED GOALS: 1. Dora will maintain adequate oxygenation via oximetry with SpO2 >90%. 2. Dora will have breath sounds consistent with baseline function throughout stay and rev erse airway bronchospasm when indicated. STRATEGY TO ACHIEVE GOALS: - Monitor saturations via oximetry and titrate to order as indicated. - Administer respiratory medications as ordered and adjust with use of respiratory protocol s. RESTRAINT-RELATED GOALS: STRATEGIES TO ACHIEVE RESTRAINT GOALS: Outcome: Improving Goal Evaluation: Severity Score 2 Class 1Severity Score 0-4 SpO2 95 % on room air Breath sounds are c lear. No PRN neb needed. ITEM 0 1 2 3 4 0 Respiratory History No Smoking history Current tobacco use Up to 10 Pack year history. Simple home regimen Known Pulmonary Disease 20 pack year history Complex Home regimen 30+ pack year history Severe Pulmonary Disease or exacerbation 1 Surgery Status (current admission) No surgery Minor surgery Lower abdominal rib fractures Thoracic or uppe r abdominal Thoracic with pulmonary disease or Central Nervous System 1 Chest X-RAY Clear or Normal baseline Unavailable Improving/clearing Abnormal, Unilateral or mild Infiltrates or atelectasis, Chronic changes Infiltrates mild bilateral or unilateral or pleural effusions extensive Inf iltrates, atelectasis or pleural effusions, pneumothorax 0 Respiratory Pattern Regular pattern Respiratory Rate:8-20 Increased Respiratory Rate, labored Dyspnea on exertion, irregular pattern Use of accessory muscles, prolonged expirato ry phase nasal flaring Severe Dyspnea , Purse Lip Breathing, Use of accessory muscles 0 Breath Sounds Clear Diminished unilaterally Diminished bilaterally &/or crackles Wheezing or Rhonchi &/or absent unilateral Absent bilaterally 0 Cough Strong, non productive Moderate, loose, productive Weak, non-productive Weak, ineffective Non-spontaneous or may require suctioning 0 Sputum None Scant / Thin White/clear Moderate Beige/ yellow Large / Thick Dark Green/Brown Copious / Plugs Hemoptysis compa 0 LOC Alert, oriented, cooperative Disoriented, follows commands Obtunded, arousable, follo ws commands Obtunded, uncooperative, sedated Comatose 0 Oxygen Demand Room air Baseline 1-2 liters 3-6 liters >7 Liters Oxymizer to > 55% 60% or greater Total Severity Score (SS) Class 0-3 1 4-7 2 8-11 3 12-14 4 15+ 5 lan of Care - Lashaun Greene RN - 12/31/2016 12:30 AM PDTPt unable to void. PVR 360. Will try again in 2 hr s. documented in thi s encounter Plan of Treatment +--------+---------+ + + + | Date | Type | Specialty | Care Team | Description | +--------+---------+ + + + | 08/04/ | Office | Cardiology | Monie Anusha | | | 2020 | Visit | | [address] | | | | | | [address] | | | | | | [place] [address] | | | | | | [phone] | | | | | | | [...] + +--------+ + + + | EXTRA GLORIA ORLANDO | Routin | 01/17/2017 | | Results [...] [address] | [place] | [phone] | | [facility] | | [address] | | | - LABORATORY | | [...] | Time | | seconds | [facility] | | [facility] | | | | | | C[facility] - | | | | | | LABORATORY | | + + + + + + | INR | 2.82 (H)Comment: Usual | 0.90 - 1.10 | [facility] | | | | Oral Anticoagulation | | [facility] | | | | Range: 2.0 - [...] + + | [facility] | [address] | [place] | [phone] | | [facility] | | [address] | | | - LABORATORY | | [...] | | | | mmol/L | [facility] | | | | | | [facility] | | | | | | CENTER - | | | | | | LABORATORY | | + + + + + + | K | 3.7 | 3.5 - 5.1 | [facility] | | | | | mmol/L | [facility] | | | | | | MEDICAL | | | | | | CENTER - | | | | | | LABORATORY | | + + + + + + | Cl | 99 | 98 - 109 mmol/L | [facility] | | | | | | [facility] | | | | | | MED[facility] | | | | | | CENTER - | | | | | | LABORATORY | | + + + + + + | CO2 | 25 | 24 - 31 mmol/L | [facility] | | | | | | [facility] | | | | | | MEDICAL | | | | | | CENTER - | | | | | | LABORATORY | | + + + + + + | Anion Gap | 7 | 3 - 16 mmol/L | [facility] | | | | | | [facility] | | | | | | [facility] | | | | | | CENTER - | | | | | | LABORATORY | | + + + + + + | Glucose | 80 | 70 - 109 mg/dL | [facility] | | | | | | [facility] | | | | | | [facility] | | | | | | CENTER - | | | | | | LABORATORY | | + + + + + + | BUN | 23 (H) | 7 - 18 mg/dL | [facility] | | | | | | [facility] | | | | | | MEDICAL [...] + + + + + + | eGFR, | 58 (L)Comment: | >=60 | [facility] | | | non- | GLOMERULAR FILTRATION | mL/min/1.73m2 | [facility] | | | [place] | RATE,ESTIMATED | | MEDICAL | | | | mL/min/1.71i3Clkr than | | CENTER - | | [...] | | | | | mg/dL | [facility] | | | | | | [facility] | | | | | | CENTER - | | | | | | LABORATORY | | + + + + + + | BUN/Creatin | 19.2 | | [facility] | | | ine Ratio | | | [facility] | | | | | | MEDICAL [...] + + | [facility] | [address] | [place] | [phone] | | [facility] | | [address] | | | - LABORATORY | | [...] | | | They are mild and qgyx-ea-wywgcaak deformities. Diffuse | | | demineralization. Diffuse [...] are age indeterminate. They are mild and zfww-vb-zqpbettm deformities.Diffuse | | demineralization.Diffuse lumbar spondylosis.Possible aneurysmal [...] indeterminate. | | They are mild and wucp-db-abjhymlu deformities. | | | |Diffuse demineralization. | | | |Diffuse lumbar spondylosis. 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 | | | |Recommendation: Consider ultrasound of the aorta. | | | |Dictated and Signed by: Matthew Kwon MD | | Electronically signed: 01/16/2017 2:33 PM | + + + +---------+ + + | Performing | Address | City/State/[facility] | Phone Number | | Organization [...] | | | They are mild and fgek-jh-vaagrmta deformities. Diffuse | | | demineralization. Diffuse [...] are age indeterminate. They are mild and zqez-rj-rzfmlaoo deformities.Diffuse | | demineralization.Diffuse lumbar spondylosis.Possible aneurysmal [...] indeterminate. | | They are mild and rrxz-op-yowwhhwh deformities. | | | |Diffuse demineralization. | [...] | | | They are mild and avlo-ys-wuikwmbz deformities. Diffuse | | | demineralization. Diffuse [...] are age indeterminate. They are mild and bnyk-et-hoyvabyo deformities.Diffuse | | demineralization.Diffuse lumbar spondylosis.Possible aneurysmal [...] indeterminate. | | They are mild and dmtd-kn-unndoupk deformities. | | | |Diffuse demineralization. | [...] + + + + + + | White Blood | 8.5 | 4.0 - 11.0 K/uL | [facility] | | | Cells | | | [facility] | | | | | | MEDICAL | | | | | | CENTER - | | | | | | LABORATORY | | + + + + + + | Red Blood | 3.77 (L) | 4.30 - 5.70 | [facility] | | | Cells | | M/uL | [facility] | | | | | | MEDICAL | | | | | | CENTER - | | | | | | LABORATORY | | + + + + + + | Hemoglobin | 11.1 (L) | 13.5 - 18.0 | [facility] | | | | | g/dL | [facility] | | | | | | MEDICAL | | | | | | CENTER - | | | | | | LABORATORY | | + + + + + + | Hematocrit | 33.5 (L) | 40.0 - 51.0 % | [facility] | | | | | | [facility] | | | | | | MEDICAL | | | | | | CENTER - | | | | | | LABORATORY | | + + + + + + | MCV | 88.8 | 83.0 - 101.0 fL | [facility] | | | | | | [facility] | | | | | | MEDICAL | | | | | | CENTER - | | | | | | LABORATORY | | + + + + + + | MCH | 29.4 | 28.0 - 35.0 pg | [facility] | | | | | | [facility] | | | | | | MEDICAL | | | | | | CENTER - | | | | | | LABORATORY | | + + + + + + | MCHC | 33.0 | 32.0 - 36.0 | [facility] | | | | | g/dL | [facility] | | | | | | MEDICAL | | | | | | CENTER - | | | | | | LABORATORY | | + + + + + + | RDW-CV | 17.0 (H) | <15.0 % | [facility] | | | | | | [facility] | | | | | | MEDICAL | | | | | | CENTER - | | | | | | LABORATORY | | + + + + + + | Platelet | 239 | 140 - 440 K/uL | [facility] | | | Count | | | [facility] | | | | | | MEDICAL | | | | | | CENTER - | | | | | | LABORATORY | | + + + + + + | MPV | 8.1 | fL | [facility] | | | | | | [facility] | | | | | | MEDICAL | | | | | | CENTER - | | | | | | LABORATORY | | + + + + + + | % | 79.2 | 45.0 - 82.0 % | [facility] | | | Neutrophils | | | [facility] | | | | | | MEDICAL | | | | | | CENTER - | | | | | | LABORATORY | | + + + + + + | % | 4.0 (L) | 20.0 - 45.0 % | [facility] | | | Lymphocytes | | | [facility] | | | | | | MEDICAL | | | | | | CENTER - | | | | | | LABORATORY | | + + + + + + | % Monocytes | 8.7 | 4.0 - 12.0 % | [facility] | | | | | | [facility] | | | | | | MEDICAL | | | | | | CENTER - | | | | | | LABORATORY | | + + + + + + | % | 7.7 (H) | 0.0 - 5.0 % | [facility] | | | Eosinophils | | | [facility] | | | | | | MEDICAL | | | | | | CENTER - | | | | | | LABORATORY | | + + + + + + | % Basophils | 0.4 | 0.0 - 1.0 % | [facility] | | | | | | [facility] | | | | | | MEDICAL | | | | | | CENTER - | | | | | | LABORATORY | | + + + + + + | Absolute | 6.70 | 1.80 - 8.50 | [facility] | | | Neutrophils | | K/uL | [facility] | | | | | | MEDICAL | | | | | | CENTER - | | | | | | LABORATORY | | + + + + + + | Absolute | 0.30 (L) | 0.60 - 3.20 | [facility] | | | Lymphocytes | | K/uL | [facility] | | | | | | MEDICAL | | | | | | CENTER - | | | | | | LABORATORY | | + + + + + + | Absolute | 0.70 | 0.00 - 1.00 | [facility] | | | Monocytes | | K/uL | [facility] | | | | | | MEDICAL | | | | | | CENTER - | | | | | | LABORATORY | | + + + + + + | Absolute | 0.70 (H) | 0.00 - 0.40 | [facility] | | | Eosinophils | | K/uL | [facility] | | | | | | MEDICAL | | | | | | CENTER - | | | | | | LABORATORY | | + + + + + + | Absolute | 0.00 | 0.00 - 0.10 | [facility] | | | Basophils | | K/uL | [facility] | | | | | | MEDICAL [...] [address] | [place] | [phone] | | [facility] | | [address] | | | - LABORATORY | | [...] | | | | mmol/L | [facility] | | | | | | MEDICAL | | | | | | CENTER - | | | | | | LABORATORY | | + + + + + + | K | 4.7 | 3.5 - 5.1 | [facility] | | | | | mmol/L | [facility] | | | | | | MEDICAL | | | | | | CENTER - | | | | | | LABORATORY | | + + + + + + | Cl | 100 | 98 - 109 mmol/L | [facility] | | | | | | [facility] | | | | | | MEDICAL | | | | | | CENTER - | | | | | | LABORATORY | | + + + + + + | CO2 | 25 | 24 - 31 mmol/L | [facility] | | | | | | [facility] | | | | | | MEDICAL | | | | | | CENTER - | | | | | | LABORATORY | | + + + + + + | Anion Gap | 6 | 3 - 16 mmol/L | [facility] | | | | | | [facility] | | | | | | MEDICAL | | | | | | CENTER - | | | | | | LABORATORY | | + + + + + + | Glucose | 104 | 70 - 109 mg/dL | [facility] | | | | | | [facility] | | | | | | MEDICAL | | | | | | CENTER - | | | | | | LABORATORY | | + + + + + + | BUN | 26 (H) | 7 - 18 mg/dL | [facility] | | | | | | [facility] | | | | | | MEDICAL [...] + + + + + + | eGFR, | 53 (L)Comment: | >=60 | [facility] | | | non- | GLOMERULAR FILTRATION | mL/min/1.73m2 | [facility] | | | [place] | RATE,ESTIMATED | | MEDICAL | | | | mL/min/1.48q9Kxlj than | | CENTER - | | [...] + + | [facility] | [address] | [place] | [phone] | | [facility] | | [address] | | | - LABORATORY | | [...] | Time | | seconds | [facility] | | | | | | MEDICAL | | | | | | CENTER - | | | | | | LABORATORY | | + + + + + + | INR | 2.94 (H)Comment: Usual | 0.90 - 1.10 | [facility] | | | | Oral Anticoagulation | | [facility] | | | | Range: 2.0 - [...] [address] | [place] | [phone] | | [facility] | | [address] | | | - LABORATORY | | | | + + + + + Protime INR (01/15/2017 6:17 AM PDT) + + + + + + | Component | Value | Ref Range | Performed | Pathologist | | | | | At | Signature | + + + + + + | Prothrombin | 30.1 (H) | 11.3 - 13.9 | [facility] | | | Time | | seconds | [facility] | | | | | | MEDICAL | | | | | | CENTER - | | | | | | LABORATORY | | + + + + + + | INR | 2.77 (H)Comment: Usual | 0.90 - 1.10 | [facility] | | | | Oral Anticoagulation | | [facility] | | | | Range: 2.0 - [...] [address] | [place] | [phone] | | [facility] | | [address] | | | - LABORATORY | | [...] + | [facility] | [address] | [place] | [phone] | | [facility] | | [address] | | | - LABORATORY | | [...] [address] | [place] | [phone] | | [facility] | | [address] | | | - LABORATORY | | [...] | + + + + + | [facility] | [address] | [place] | [phone] | | [facility] | | [address] | | | - LABORATORY | | [...] | | Top Tube | | | [facility] | | | | | | MEDICAL [...] [address] | [place] | [phone] | | [facility] | | [address] | | | - LABORATORY | | [...] | Time | | seconds | [facility] | | | | | | MEDICAL | | | | | | CENTER - | | | | | | LABORATORY | | + + + + + + | INR | 3.40 (H)Comment: Usual | 0.90 - 1.10 | [facility] | | | | Oral Anticoagulation | | [facility] | | | | Range: 2.0 - [...] + | [facility] | [address] | [place] | [phone] | | [facility] | | [address] | | | - LABORATORY | | [...] | | Oral Anticoagulation | | [facility] | | | | Range: 2.0 - [...] [address] | [place] | [phone] | | [facility] | | [address] | | | - LABORATORY | | [...] Urine | | Yellow, Straw | [facility] | | | | | | MEDICAL | | | | | | CENTER - | | | | | | LABORATORY | | + + + + + + | Clarity, | Clear | Clear | [facility] | | | Urine | | | [facility] | | | | | | MEDICAL | | | | | | CENTER - | | | | | | LABORATORY | | + + + + + + | pH, Urine | 6.0 | 5.0 - 8.0 | [facility] | | | | | | [facility] | | | | | | MEDICAL | | | | | | CENTER - | | | | | | LABORATORY | | + + + + + + | Specific | 1.017 | 1.001 - 1.030 | [facility] | | | [place], | | | [facility] | | | Urine | | | MEDICAL | | | | | | CENTER - | | | | | | LABORATORY | | + + + + + + | Protein, | 30 mg/dL (A) | Negative | [facility] | | | Urine | | | [facility] | | | | | | MEDICAL | | | | | | CENTER - | | | | | | LABORATORY | | + + + + + + | Blood, | Small (A) | Negative | [facility] | | | Urine | | | [facility] | | | | | | MEDICAL | | | | | | CENTER - | | | | | | LABORATORY | | + + + + + + | Glucose, | Negative | Negative | [facility] | | | Urine | | | [facility] | | | | | | MEDICAL | | | | | | CENTER - | | | | | | LABORATORY | | + + + + + + | Ketones, | Negative | Negative | [facility] | | | Urine | | | [facility] | | | | | | MEDICAL | | | | | | CENTER - | | | | | | LABORATORY | | + + + + + + | Bilirubin, | Negative | Negative | [facility] | | | Urine | | | [facility] | | | | | | MEDICAL | | | | | | CENTER - | | | | | | LABORATORY | | + + + + + + | Nitrite, | Negative | Negative | [facility] | | | Urine | | | [facility] | | | | | | MEDICAL | | | | | | CENTER - | | | | | | LABORATORY | | + + + + + + | Leukocyte | Negative | Negative | [facility] | | | Esterase, | | | [facility] | | | Urine | | | MEDICAL | | | | | | CENTER - | | | | | | LABORATORY | | + + + + + + | Urobilinoge | Negative | 0.2 mg/dL, 1.0 | [facility] | | | n, Urine | | mg/dL, Negative | [facility] | | | | | | MEDICAL [...] + | [facility] | [address] | [place] | [phone] | | [facility] | | [address] | | | - LABORATORY | | [...] | | Oral Anticoagulation | | [facility] | | | | Range: 2.0 - [...] [address] | [place] | [phone] | | [facility] | | [address] | | | - LABORATORY | | [...] | | | | mmol/L | [facility] | | | | | | MEDICAL | | | | | | CENTER - | | | | | | LABORATORY | | + + + + + + | K | 4.3 | 3.5 - 5.1 | [facility] | | | | | mmol/L | [facility] | | | | | | MEDICAL | | | | | | CENTER - | | | | | | LABORATORY | | + + + + + + | Cl | 102 | 98 - 109 mmol/L | [facility] | | | | | | [facility] | | | | | | MEDICAL | | | | | | CENTER - | | | | | | LABORATORY | | + + + + + + | CO2 | 26 | 24 - 31 mmol/L | [facility] | | | | | | [facility] | | | | | | MEDICAL | | | | | | CENTER - | | | | | | LABORATORY | | + + + + + + | Anion Gap | 6 | 3 - 16 mmol/L | [facility] | | | | | | [facility] | | | | | | MEDICAL | | | | | | CENTER - | | | | | | LABORATORY | | + + + + + + | Glucose | 86 | 70 - 109 mg/dL | [facility] | | | | | | [facility] | | | | | | MEDICAL | | | | | | CENTER - | | | | | | LABORATORY | | + + + + + + | BUN | 23 (H) | 7 - 18 mg/dL | [facility] | | | | | | [facility] | | | | | | MEDICAL | | | | | | CENTER - | | | | | | LABORATORY | | + + + + + + | Creatinine | 1.31 (H) | 0.60 - 1.30 | [facility] | | | | | mg/dL | [facility] | | | | | | MEDICAL | | | | | | CENTER - | | | | | | LABORATORY | | + + + + + + | eGFR, | 52 (L)Comment: | >=60 | [facility] | | | non- | GLOMERULAR FILTRATION | mL/min/1.73m2 | [facility] | | | [place] | RATE,ESTIMATED | | MEDICAL | | | | mL/min/1.19d5Aksc than | | CENTER - | | [...] + | [facility] | [address] | [place] | [phone] | | [facility] | | [address] | | | - LABORATORY | | | | + + + + + CBC with Differential (01/10/2017 6:35 AM PDT) + + + + + + | Component | Value | Ref Range | Performed | Pathologist | | | | | At | Signature | + + + + + + | White Blood | 5.4 | 4.0 - 11.0 K/uL | [facility] | | | Cells | | | [facility] | | | | | | MEDICAL | | | | | | CENTER - | | | | | | LABORATORY | | + + + + + + | Red Blood | 3.85 (L) | 4.30 - 5.70 | [facility] | | | Cells | | M/uL | [facility] | | | | | | MEDICAL | | | | | | CENTER - | | | | | | LABORATORY | | + + + + + + | Hemoglobin | 11.5 (L) | 13.5 - 18.0 | [facility] | | | | | g/dL | [facility] | | | | | | MEDICAL | | | | | | CENTER - | | | | | | LABORATORY | | + + + + + + | Hematocrit | 34.1 (L) | 40.0 - 51.0 % | [facility] | | | | | | [facility] | | | | | | MEDICAL | | | | | | CENTER - | | | | | | LABORATORY | | + + + + + + | MCV | 88.7 | 83.0 - 101.0 fL | [facility] | | | | | | [facility] | | | | | | MEDICAL | | | | | | CENTER - | | | | | | LABORATORY | | + + + + + + | MCH | 29.8 | 28.0 - 35.0 pg | [facility] | | | | | | [facility] | | | | | | MEDICAL | | | | | | CENTER - | | | | | | LABORATORY | | + + + + + + | MCHC | 33.6 | 32.0 - 36.0 | [facility] | | | | | g/dL | [facility] | | | | | | MEDICAL | | | | | | CENTER - | | | | | | LABORATORY | | + + + + + + | RDW-CV | 16.8 (H) | <15.0 % | [facility] | | | | | | [facility] | | | | | | MEDICAL | | | | | | CENTER - | | | | | | LABORATORY | | + + + + + + | Platelet | 347 | 140 - 440 K/uL | [facility] | | | Count | | | [facility] | | | | | | MEDICAL | | | | | | CENTER - | | | | | | LABORATORY | | + + + + + + | MPV | 8.1 | fL | [facility] | | | | | | [facility] | | | | | | MEDICAL | | | | | | CENTER - | | | | | | LABORATORY | | + + + + + + | % | 69.1 | 45.0 - 82.0 % | [facility] | | | Neutrophils | | | [facility] | | | | | | MEDICAL | | | | | | CENTER - | | | | | | LABORATORY | | + + + + + + | % | 8.2 (L) | 20.0 - 45.0 % | [facility] | | | Lymphocytes | | | [facility] | | | | | | MEDICAL | | | | | | CENTER - | | | | | | LABORATORY | | + + + + + + | % Monocytes | 11.7 | 4.0 - 12.0 % | [facility] | | | | | | [facility] | | | | | | MEDICAL | | | | | | CENTER - | | | | | | LABORATORY | | + + + + + + | % | 9.7 (H) | 0.0 - 5.0 % | [facility] | | | Eosinophils | | | [facility] | | | | | | MEDICAL | | | | | | CENTER - | | | | | | LABORATORY | | + + + + + + | % Basophils | 1.3 (H) | 0.0 - 1.0 % | [facility] | | | | | | [facility] | | | | | | MEDICAL | | | | | | CENTER - | | | | | | LABORATORY | | + + + + + + | Absolute | 3.70 | 1.80 - 8.50 | [facility] | | | Neutrophils | | K/uL | [facility] | | | | | | MEDICAL | | | | | | CENTER - | | | | | | LABORATORY | | + + + + + + | Absolute | 0.40 (L) | 0.60 - 3.20 | [facility] | | | Lymphocytes | | K/uL | [facility] | | | | | | MEDICAL | | | | | | CENTER - | | | | | | LABORATORY | | + + + + + + | Absolute | 0.60 | 0.00 - 1.00 | [facility] | | | Monocytes | | K/uL | [facility] | | | | | | MEDICAL | | | | | | CENTER - | | | | | | LABORATORY | | + + + + + + | Absolute | 0.50 (H) | 0.00 - 0.40 | [facility] | | | Eosinophils | | K/uL | [facility] | [...] [address] | [place] | [phone] | | [facility] | | [address] | | | - LABORATORY | | [...] | | Oral Anticoagulation | | [facility] | | | | Range: 2.0 - [...] | [address] | [place] | [phone] | | [facility] | | [address] | | | - LABORATORY | | [...] | Time | | seconds | [facility] | | | | | | MEDICAL [...] [address] | [place] | [phone] | | [facility] | | [address] | | | - LABORATORY | | [...] ST. | [address] | [place] | [phone] | | [facility] | | [address] | | | - LABORATORY | | [...] [address] | [place] | [phone] | | [facility] | | [address] | | | - LABORATORY | | [...] | | Top Tube | | | [facility] | | [...] + | [facility] | [address] | [place] | [phone] | | [facility] | | [address] | | | - LABORATORY | | [...] + | [facility] | [address] | [place] | [phone] | | [facility] | | [address] | | | - LABORATORY | | [...] | Top Tube | | | [facility] | | | | | | MEDICAL [...] + | [facility] | [address] | [place] | [phone] | | [facility] | | [address] | | | - LABORATORY | | [...] [address] | [place] | [phone] | | [facility] | | [address] | | | - LABORATORY | | [...] | | Time | | seconds | [facility] | | | | | | MEDICAL | | | | | | CENTER - | | | | | | LABORATORY | | + + + + + + | INR | 1.32 (H)Comment: Usual | 0.90 - 1.10 | [facility] | | | | Oral Anticoagulation | | [facility] | | | | Range: 2.0 - [...] + | [facility] | [address] | [place] | [phone] | | [facility] | | [address] | | | - LABORATORY | | [...] | 25 Hydroxy | | | [facility] | | | | | | MEDICAL [...] ST. | [address] | [place], [place] | [phone] | | [facility] | | [address] | | | - LABORATORY | | [...] | | | | mmol/L | [facility] | | | | | | MEDICAL | | | | | | CENTER - | | | | | | LABORATORY | | + + + + + + | K | 4.2 | 3.5 - 5.1 | [facility] | | | | | mmol/L | [facility] | | | | | | MEDICAL | | | | | | CENTER - | | | | | | LABORATORY | | + + + + + + | Cl | 103 | 98 - 109 mmol/L | [facility] | | | | | | [facility] | | | | | | MEDICAL | | | | | | CENTER - | | | | | | LABORATORY | | + + + + + + | CO2 | 27 | 24 - 31 mmol/L | [facility] | | | | | | [facility] | | | | | | MEDICAL | | | | | | CENTER - | | | | | | LABORATORY | | + + + + + + | Anion Gap | 6 | 3 - 16 mmol/L | [facility] | | | | | | [facility] | | | | | | MEDICAL | | | | | | CENTER - | | | | | | LABORATORY | | + + + + + + | Glucose | 93 | 70 - 109 mg/dL | [facility] | | | | | | [facility] | | | | | | MEDICAL | | | | | | CENTER - | | | | | | LABORATORY | | + + + + + + | BUN | 17 | 7 - 18 mg/dL | [facility] | | | | | | [facility] | | | | | | MEDICAL | | | | | | CENTER - | | | | | | LABORATORY | | + + + + + + | Creatinine | 1.29 | 0.60 - 1.30 | [facility] | | | | | mg/dL | [facility] | | | | | | [facility]ICAL | | | | | | CENTER - | | | | | | LABORATORY | | + + + + + + | eGFR, | 53 (L)Comment: | >=60 | [facility] | | | non- | GLOMERULAR FILTRATION | mL/min/1.73m2 | [facility] | | | [place] | RATE,ESTIMATED | | MEDICAL | | | | mL/min/1.48r6Vjow than | | CENTER - | | [...] | | | | mg/dL | [facility] | | | | | | MEDICAL | | | | | | CENTER - | | | | | | LABORATORY | | + + + + + + | BUN/Creatin | 13.2 | | [facility] | | | ine Ratio | | | [facility] | | | | | | MEDICAL [...] + | [facility] | [address] | [place] | [phone] | | [facility] | | [address] | | | - LABORATORY | | | | + + + + + CBC no Differential (01/04/2017 6:38 AM PDT) + + + + + + | Component | Value | Ref Range | Performed | Pathologist | | | | | At | Signature | + + + + + + | White Blood | 6.8 | 4.0 - 11.0 K/uL | [facility] | | | Cells | | | [facility] | | | | | | MEDICAL | | | | | | CENTER - | | | | | | LABORATORY | | + + + + + + | Red Blood | 3.61 (L) | 4.30 - 5.70 | [facility] | | | Cells | | M/uL | [facility] | | | | | | MEDICAL | | | | | | CENTER - | | | | | | LABORATORY | | + + + + + + | Hemoglobin | 10.3 (L) | 13.5 - 18.0 | [facility] | | | | | g/dL | [facility] | | | | | | MEDICAL | | | | | | CENTER - | | | | | | LABORATORY | | + + + + + + | Hematocrit | 32.2 (L) | 40.0 - 51.0 % | [facility] | [facility] | | | | | | [facility]ICAL | | | | | | CENTER - | | | | | | LABORATORY | | + + + + + + | MCV | 89.2 | 83.0 - 101.0 fL | [facility] | [facility] | | | | | | [facility]ICAL | | | | | | CENTER - | | | | | | LABORATORY | | + + + + + + | MCH | 28.6 | 28.0 - 35.0 pg | [facility] | [facility] | | | | | | MEDICAL | | | | | | CENTER - | | | | | | LABORATORY | | + + + + + + | MCHC | 32.1 | 32.0 - 36.0 | [facility] | | | | | g/dL | [facility] | | | | | | MEDICAL | | | | | | CENTER - | | | | | | LABORATORY | | + + + + + + | RDW-CV | 16.2 (H) | <15.0 % | [facility] | [facility] | | | | | | MEDICAL | | | | | | CENTER - | | | | | | LABORATORY | | + + + + + + | Platelet | 424 | 140 - 440 K/uL | [facility] | | | Count | | | [facility] | | | | | | MEDICAL | | | | | | CENTER - | | | | | | LABORATORY | | + + + + + + | MPV | 8.4 | fL | [facility] | | | | | | [facility] | | | | | | MEDICAL [...] [address] | [place] | [phone] | | [facility] | | [address] | | | - LABORATORY | | | | + + + + + Sally INR (01/04/2017 6:38 AM PDT) + + + + + + | Component | Value | Ref Range | Performed | Pathologist | | | | | At | Signature | + + + + + + | Prothrombin | 15.4 (H) | 11.3 - 13.9 | [facility] | | | Time | | seconds | [facility] | | | | | | [facility] | | | | | | CENTER - | | | | | | LABORATORY | | + + + + + + | INR | 1.19 (H)Comment: Usual | 0.90 - 1.10 | [facility] | | | | Oral Anticoagulation | | [facility] | | | | Range: 2.0 - [...] [address] | [place] | [phone] | | [facility] | | [address] | | | - LABORATORY | | [...] | | Oral Anticoagulation | | [facility] | | | | Range: 2.0 - [...] + | [facility] | [address] | [place] | [phone] | | [facility] | | [address] | | | - LABORATORY | | | | + + + + + B Type Natriuretic Peptide (01/02/2017 6:32 AM PDT) + +---------+ + + + | Component | Value | Ref Range | Performed | Pathologist | | | | | At | Signature | + +---------+ + + + | BNP | 693 (H) | <100 pg/mL | [facility] | | | | | [address] | [place] | [phone] | | [facility] | | [address] | | | - LABORATORY | | [...] | | | | mmol/L | [facility] | | | | | | MEDICAL [...] | | | | | | [facility] | | | | | | MEDICAL | | | | | | CENTER - | | | | | | LABORATORY | | + + + + + + | CO2 | 28 | 24 - 31 mmol/L | [facility] | | | | | | [facility] | | | | | | MEDICAL | | | | | | CENTER - | | | | | | LABORATORY | | + + + + + + | Anion Gap | 7 | 3 - 16 mmol/L | [facility] | [facility] | [facility] | | | | | | MEDICAL | | | | | | CENTER - | | | | | | LABORATORY | | + + + + + + | Glucose | 87 | 70 - 109 mg/dL | [facility] | | | | | | [facility] | | | | | | MEDICAL | | | | | | CENTER - | | | | | | LABORATORY | | + + + + + + | BUN | 15 | 7 - 18 mg/dL | [facility] | | | | | | [facility] | | | | | | MEDICAL [...] + + + + + + | eGFR, | >60Comment: GLOMERULAR | >=60 | [facility] | | | non- | FILTRATION | mL/min/1.73m2 | [facility] | | | [place] | RATE,ESTIMATED | | MEDICAL | | | | mL/min/1.86s4Nayv than | | CENTER - | | [...] [address] | [place] | [phone] | | [facility] | | [address] | | | - LABORATORY | | | | + + + + + CBC with Differential (01/02/2017 6:32 AM PDT) + + + + + + | Component | Value | Ref Range | Performed | Pathologist | | | | | At | Signature | + + + + + + | White Blood | 7.9 | 4.0 - 11.0 K/uL | [facility] | | | Cells | | | [facility] | | | | | | MEDICAL | | | | | | CENTER - | | | | | | LABORATORY | | + + + + + + | Red Blood | 3.71 (L) | 4.30 - 5.70 | [facility] | | | Cells | | M/uL | [facility] | | | | | | MEDICAL | | | | | | CENTER - | | | | | | LABORATORY | | + + + + + + | Hemoglobin | 11.1 (L) | 13.5 - 18.0 | [facility] | | | | | g/dL | [facility] | | | | | | MEDICAL | | | | | | CENTER - | | | | | | LABORATORY | | + + + + + + | Hematocrit | 32.9 (L) | 40.0 - 51.0 % | [facility] | | | | | | [facility] | | | | | | MEDICAL | | | | | | CENTER - | | | | | | LABORATORY | | + + + + + + | MCV | 88.8 | 83.0 - 101.0 fL | [facility] | | | | | | [facility] | | | | | | MEDICAL | | | | | | CENTER - | | | | | | LABORATORY | | + + + + + + | MCH | 29.9 | 28.0 - 35.0 pg | [facility] | | | | | | [facility] | | | | | | MEDICAL | | | | | | CENTER - | | | | | | LABORATORY | | + + + + + + | MCHC | 33.6 | 32.0 - 36.0 | [facility] | | | | | g/dL | [facility] | | | | | | MEDICAL | | | | | | CENTER - | | | | | | LABORATORY | | + + + + + + | RDW-CV | 16.3 (H) | <15.0 % | [facility] | | | | | | [facility] | | | | | | MEDICAL | | | | | | CENTER - | | | | | | LABORATORY | | + + + + + + | Platelet | 441 (H) | 140 - 440 K/uL | [facility] | | | Count | | | [facility] | | | | | | MEDICAL | | | | | | CENTER - | | | | | | LABORATORY | | + + + + + + | MPV | 8.1 | fL | [facility] | | | | | | [facility] | | | | | | MEDICAL | | | | | | CENTER - | | | | | | LABORATORY | | + + + + + + | % | 76.5 | 45.0 - 82.0 % | [facility] | | | Neutrophils | | | [facility] | | | | | | MEDICAL | | | | | | CENTER - | | | | | | LABORATORY | | + + + + + + | % | 6.0 (L) | 20.0 - 45.0 % | [facility] | | | Lymphocytes | | | [facility] | | | | | | MEDICAL | | | | | | CENTER - | | | | | | LABORATORY | | + + + + + + | % Monocytes | 9.5 | 4.0 - 12.0 % | [facility] | | | | | | [facility] | | | | | | MEDICAL | | | | | | CENTER - | | | | | | LABORATORY | | + + + + + + | % | 7.0 (H) | 0.0 - 5.0 % | [facility] | | | Eosinophils | | | [facility] | | | | | | MEDICAL [...] | | Neutrophils | | K/uL | [facility] | | | | | | MEDICAL | | | | | | CENTER - | | | | | | LABORATORY | | + + + + + + | Absolute | 0.50 (L) | 0.60 - 3.20 | [facility] | | | Lymphocytes | | K/uL | [facility] | | | | | | MEDICAL | | | | | | CENTER - | | | | | | LABORATORY | | + + + + + + | Absolute | 0.70 | 0.00 - 1.00 | [facility] | | | Monocytes | | K/uL | [facility] | | | | | | MEDICAL | | | | | | CENTER - | | | | | | LABORATORY | | + + + + + + | Absolute | 0.60 (H) | 0.00 - 0.40 | [facility] | | | Eosinophils | | K/uL | [facility] | | | | | | MEDICAL | | | | | | CENTER - | | | | | | LABORATORY | | + + + + + + | Absolute | 0.10 | 0.00 - 0.10 | [facility] | | | Basophils | | K/uL | [facility] | | | | | | MEDICAL [...] + | [facility] | [address] | [place] | [phone] | | [facility] | | [address] | | | - LABORATORY | | [...] | | Time | | seconds | [facility] | | | | | | MEDICAL | | | | | | CENTER - | | | | | | LABORATORY | | + + + + + + | INR | 1.15 (H)Comment: Usual | 0.90 - 1.10 | [facility] | | | | Oral Anticoagulation | | [facility] | | | | Range: 2.0 - [...] [address] | [place] | [phone] | | [facility] | | [address] | | | - LABORATORY | | [...] Urine | | Yellow, Straw | [facility] | | | | | | MEDICAL | | | | | | CENTER - | | | | | | LABORATORY | | + + + + + + | Clarity, | Cloudy (A) | Clear | [facility] | | | Urine | | | [facility] | | | | | | MEDICAL | | | | | | CENTER - | | | | | | LABORATORY | | + + + + + + | pH, Urine | 9.0 (H) | 5.0 - 8.0 | [facility] | | | | | | [facility] | | | | | | MEDICAL | | | | | | CENTER - | | | | | | LABORATORY | | + + + + + + | Specific | 1.012 | 1.001 - 1.030 | [facility] | | | [place], | | | [facility] | | | Urine | | | MEDICAL | | | | | | CENTER - | | | | | | LABORATORY | | + + + + + + | Protein, | Negative | Negative | [facility] | | | Urine | | | [facility] | | | | | | MEDICAL | | | | | | CENTER - | | | | | | LABORATORY | | + + + + + + | Blood, | Small (A) | Negative | [facility] | | | Urine | | | [facility] | | | | | | MEDICAL | | | | | | CENTER - | | | | | | LABORATORY | | + + + + + + | Glucose, | Negative | Negative | [facility] | | | Urine | | | [facility] | | | | | | MEDICAL | | | | | | CENTER - | | | | | | LABORATORY | | + + + + + + | Ketones, | Negative | Negative | [facility] | | | Urine | | | [facility] | | | | | | MEDICAL | | | | | | CENTER - | | | | | | LABORATORY | | + + + + + + | Bilirubin, | Negative | Negative | [facility] | | | Urine | | | [facility] | | | | | | MEDICAL | | | | | | CENTER - | | | | | | LABORATORY | | + + + + + + | Nitrite, | Negative | Negative | [facility] | | | Urine | | | [facility] | | | | | | MEDICAL | | | | | | CENTER - | | | | | | LABORATORY | | + + + + + + | Leukocyte | Negative | Negative | [facility] | | | Esterase, | | | [facility] | | | Urine | | | MEDICAL | | | | | | CENTER - | | | | | | LABORATORY | | + + + + + + | Urobilinoge | Negative | 0.2 mg/dL, 1.0 | [facility] | | | n, Urine | | mg/dL, Negative | [facility] | | | | [...] [address] | [place] | [phone] | | [facility] | | [address] | | | - LABORATORY | | [...] + | [facility] | [address] | [place] | [phone] | | [facility] | | [address] | | | - LABORATORY | | [...] | | | | mmol/L | [facility] | | | | | | MEDICAL | | | | | | CENTER - | | | | | | LABORATORY | | + + + + + + | K | 3.5 | 3.5 - 5.1 | [facility] | | | | | mmol/L | [facility] | | | | | | MEDICAL | | | | | | CENTER - | | | | | | LABORATORY | | + + + + + + | Cl | 100 | 98 - 109 mmol/L | [facility] | | | | | | [facility] | | | | | | MEDICAL | | | | | | CENTER - | | | | | | LABORATORY | | + + + + + + | CO2 | 27 | 24 - 31 mmol/L | [facility] | | | | | | [facility] | | | | | | MEDICAL | | | | | | CENTER - | | | | | | LABORATORY | | + + + + + + | Anion Gap | 9 | 3 - 16 mmol/L | [facility] | | | | | | [facility] | | | | | | MEDICAL | | | | | | CENTER - | | | | | | LABORATORY | | + + + + + + | Glucose | 99 | 70 - 109 mg/dL | [facility] | | | | | | [facility] | | | | | | MEDICAL | | | | | | CENTER - | | | | | | LABORATORY | | + + + + + + | BUN | 19 (H) | 7 - 18 mg/dL | [facility] | | | | | | [facility] | | | | | | MEDICAL | | | | | | CENTER - | | | | | | LABORATORY | | + + + + + + | Creatinine | 1.10 | 0.60 - 1.30 | [facility] | | | | | mg/dL | [facility] | | | | | | MEDICAL | | | | | | CENTER - | | | | | | LABORATORY | | + + + + + + | eGFR, | >60Comment: GLOMERULAR | >=60 | [facility] | | | non- | FILTRATION | mL/min/1.73m2 | [facility] | | | [place] | RATE,ESTIMATED | | MEDICAL | | | | mL/min/1.81q6Wyab than | | CENTER - | | [...] | 8.7 | 8.3 - 10.5 | [facility] | | | | | mg/dL | [facility] | | | | | | MEDICAL | | | | | | CENTER - | | | | | | LABORATORY | | + + + + + + | Albumin | 2.2 (L) | 3.2 - 5.0 g/dL | [facility] | | | | | | [facility] | | | | | | MEDICAL | | | | | | CENTER - | | | | | | LABORATORY | | + + + + + + | Bilirubin | 1.0 | 0.1 - 1.5 mg/dL | [facility] | | | Total | | | [facility] | | | | | | MEDICAL | | | | | | CENTER - | | | | | | LABORATORY | | + + + + + + | Total | 5.0 (L) | 6.0 - 7.8 g/dL | [facility] | | | Protein | | | [facility] | | | | | | MEDICAL | | | | | | CENTER - | | | | | | LABORATORY | | + + + + + + | AST | 40 | 10 - 42 U/L | [facility] | | | | | | [facility] | | | | | | MEDICAL | | | | | | CENTER - | | | | | | LABORATORY | | + + + + + + | ALT | 49 (H) | 6 - 45 U/L | [facility] | | | | | | [facility] | | | | | | MEDICAL | | | | | | CENTER - | | | | | | LABORATORY | | + + + + + + | Alkaline | 120 (H) | 40 - 110 U/L | [facility] | | | Phosphatase | | | [facility] | | | | | | MEDICAL | | | | | | CENTER - | | | | | | LABORATORY | | + + + + + + | Globulin | 2.8 | 2.1 - 3.8 g/dL | [facility] | | | | | | [facility] | | | | | | MEDICAL | | | | | | CENTER - | | | | | | LABORATORY | | + + + + + + | Albumin/Talia | 0.8 | 0.8 - 2.0 | [facility] | | | bulin Ratio | | | [facility] | | | | | | MEDICAL [...] + + | [facility] | [address] | [place] | [phone] | | [facility] | | [address] | | | - LABORATORY | | [...] | atorvaSTATin (LIPITOR) tablet | Given | 01/17/20 | 20 mg | | | | [...] | | mg 10 mg, Oral, ONCE, Sat | | 17 10:32 | | | [...] | 1,000 mg 1,000 mg, Oral, EVERY | | 17 1:52 | | | [...] | | | | | modification) on Sandy 01/10/17 at | | | | | [...] | | +-------+ +-------+---+---+ | Given | 06/28/20 | 10 mg | | | | [...] | +---+---+ + +-------+ + +---+---+ | olgoewhe-kolyjbqnu-hfarbgjoba | Given | 01/18/20 | 1 | [...] +-------+ +------+---+---+ +-------+ +------+---+---+ | Given | 01/16/20 | 5 mg | | | | [...] 17 2:45 | | | | | Alex BENNETT, Starting Mon | | PM PDT | [...] AM PDT | | | | | 01/03/17 at 1045, Do not open | | [...] | | | | | modification) on Sat01/10/17 at | | | | | | [...] PDT | | | | | on Sat01/10/17 at 1800, For 1 | | | [...] PDT | | | | | on Sat01/04/17 at 1800, For 1 | | | [...] PDT | | | | | on Sat01/05/17 at 1800, For 1 | | | [...] | | | | First dose on 01/06/17 at | | PM PDT | [...] | | | | | on Sandy 01/03/17 at 1800, For 1 | | [...] NIGHTLY PRN, | | | Insomnia, Starting Sat01/15/17 at | | | 0940 | | + +---+ | | | + +---+ documented in this encounter
--- OUTSIDE RECORDS SUMMARY | ~2020-02-23 | XMS | Encounter Summary ---
Demographics + + + | Address | [address] | | | [place] [address] | + + + | Home Phone | | + + + | Preferred Language | Unknown | + + + | Marital Status | | + + + | Rastafari Affiliation | Unknown | + + + | Race | Unknown | + + + | Ethnic Group | Unknown | + + + Author + + + | Author | [facility] | | | and [place] | + + + | Organization | [facility] | | | [...] [place] | | | | | [address] | | + + + + + Care Team Providers + +------+ + | Care Scientific Programmer Name | Role | Phone | + [...] | MED [facility] EXTERNAL | MD Usha [address] | | | | | IMAGING [address] | [address] | | | | | [address] [place] | [place] [address] | | | | | [place] [address] | | | | | | [phone] | | | +--------+ + + + [...] [address] | | | | | | [place] [address] | | | | | | [phone] | | | | | | | [...]
--- OUTSIDE RECORDS SUMMARY | ~2020-02-23 | XMS | Encounter Summary ---
Demographics + + + | Address | [address] | | | [place] [address] | + + + | Home Phone | | + + + | Preferred Language | Unknown | + + + | Marital Status | | + + + | Rastafarian Affiliation | Unknown | + + + | Race | Unknown | + + + | Ethnic Group | Unknown | + + + Author + + + | Author | [facility] | | | and [place] | + + + | Organization | [facility] | | | [...] [place] | | | | | [address] | | + + + + + Care Team Providers + +------+ + | Care Coordinator Volunteer Services Name | Role | Phone | + +------+ + | Carlos Alberto Galeas MD | PCP | | + +------+ + Reason for Visit Service/Procedure (Routine) +--------+--------+ + + + + | Status | Reason | Specialty | Diagnoses / | Referred By | Referred To | | | | | Procedures | Contact | Contact | +--------+--------+ + + + + | Closed | | Infusion | Diagnoses | Field, | [facility] | | | | Therapy | Subclavian | Michael I, | Infusion [address] | | | | | steal | MD, FACS | [address] | | | | | syndrome | [address] | [place], | | | | | 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[place] | Phone: | | | | | artery, | [address] | [phone] | | | | | unspecified | Phone: | Fax: | | | | | laterality | [phone] | [phone] | | | | | 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 | Field Michael | Subclavian steal | | 2018 | Encounter | MED CTR OP INFUSION | MD Dante, FACS [address] | syndrome; Decreased | | | | [address] | [address] [place] | GFR; PVD (peripheral | | | | [place], [place] | [place] [address] | vascular disease) | | | | [address] | [phone] | ([facility]LY [facility]) | | | | [phone] | | | +--------+ + + + [...] + + + | Blood Pressure | 119/70 | 02/18/2018 3:29 PM | | | | | PDT | | + + + + + | Pulse | 87 | 02/18/2018 3:29 PM | | | | | PDT | | + + + + + | Temperature | 35.8 C (96.4 F) | 02/18/2018 8:22 AM | | | | | PDT | | + + + + + | Respiratory Rate | 18 | 02/18/2018 3:29 PM | | | | | PDT | | + + + + + | Oxygen Saturation | 96% | 02/18/2018 3:29 PM | | | | | PDT | | + + + + + | Inhaled Oxygen | - | - | | | Concentration | | | | + + + + + | Weight | - | - | | + + + + + | Height | - | [...] | | | (NORVASC) 5 mg | Daily. | | | | 8 | | tablet | | | | | | + + + +---------+ + + | ammonium lactate | ammonium lactate 12 | | 0 | | | | (LAC-HYDRIN) 12% | % topical cream | | | | 8 | | cream | | | | | | + + + +---------+ + + | ascorbic acid | Take 500 mg by mouth | | 0 | | | | (VITAMIN C) 500 mg | Daily. | | | | 9 | | tablet | | | | | | + + + +---------+ + + | atenolol | Take 25 mg by mouth. | | 0 | | | | (TENORMIN) 25 mg | | | | | 8 | | tablet | | | | | | + + + +---------+ + + | atorvaSTATin | Take 20 mg by mouth | | 0 | | | | (LIPITOR) 20 mg | nightly. | | | | 9 | | tablet | | | | | | + + + +---------+ + + | clindamycin | Take 300 mg by | | 0 | | | | (CLEOCIN) 300 MG | mouth. | | | | 8 | | capsule | | | | | | + + + +---------+ + + | clobetasol | clobetasol 0.05 % | | 0 | | | | (TEMOVATE) 0.05% | topical cream | | | | 8 | | cream | | | | | | + + + +---------+ + + | fluocinonide | fluocinonide 0.05 % | | 0 | | | | (LIDEX) 0.05 % | topical solution | | | | 8 | | external solution | | | | | | + + + +---------+ + + | loratadine | Take 10 mg by mouth | | 0 | | | | (CLARITIN) 10 mg | Daily. | | | | 8 | | tablet | | | | | | + + + +---------+ + + | magnesium oxide | Take 400 mg by mouth | | 0 | | | | (MAG-OX) 400 mg | Daily. | | | | [...] +---------+ + + | Multiple | Take by mouth. | | 0 | | | | Vitamins-Minerals | | | | | 8 | | (CENTRUM SILVER PO) | | | | | | + + + +---------+ + + | [place]-3 Fatty | Take 1 g by mouth. | | 0 | | | | Acids (FISH OIL PO) | | | | | 8 | + + + +---------+ + + | potassium chloride | Take 20 mEq by | | 0 | | | | (K-DUR) 20 mEq ER | mouth. | | | | 8 | | tablet | | | | | | + + + +---------+ + + | potassium chloride | Take 20 mEq by | | 0 | | | | (BARRETTOR-CON) 20 MEQ | mouth. | | | | 8 | | packet | | | | | | + + + +---------+ + + | tocopherol | Take 400 Units by | | 0 | | | | (VITAMIN E) 400 | mouth Daily. | | | | 9 | | units capsule | | | | | | + + + +---------+ + + | triamcinolone | triamcinolone | | 0 | | | | (KENALOG) 0.1% cream | acetonide 0.1 % | | | | 8 | | | topical cream | | | | | + + [...] documented as of this encounter Progress Notes Brittany Ceuto RN - 02/18/2018 3:39 PM PDT Vitals: 02/18/18 0822 02/18/18 1529 BP: 119/66 119/70 Pulse: 52 87 Resp: 16 18 Temp: 35.8 C (96.4 F) TempSrc: Oral SpO2: 96% Administrations This Visit sodium chloride 0.45% (1/2 NS) 1,000 mL with sodium bicarbonate 25 mEq infusion Admin Date 02/18/2018 Action New Bag Dose Rate 216 mL/hr Route Intravenous Administered By Brittany Cueto RN Admin Date 02/18/2018 Action Rate/Dose Change Dose Rate 72 mL/hr Route Intravenous Administered By Brittany Cueto RN Monitored throughout treatment; treatment completed without untoward effects from medicatio n noted. Pre and Post CT hydration orders completed, no further appts needed.. Verbalizes un derstanding of plan of care. VS stable. Discharged ambulatory to home in stable condition. Electronically signed by: Brittany Cueto RN 02/18/2018 15:39 Brittany Cisneros RN - 0 02/18/2018 10:44 AM PDTIV fluids infused for one hour prior to CT, pt down to CT with his wif e. Brittany Cisneros RN - 02/18/2018 8:27 AM PDT Vitals: 02/18/18 0822 BP: 119/66 Pulse: 52 Resp: 16 Temp: 35.8 C (96.4 F) Deborah Thomason received into room 440, independent ambulation accompanied by his . States here for pre CT infusion. Reports no change in condition, plan of care since last MD visit. Alert, oriented x 4, cooperative. Electronically signed by: Brittany Cueto RN 02/18/2018 8:27 documented in this enc ounter Plan of Treatment +--------+---------+ + + + | Date | Type | Specialty | Care Team | Description | +--------+---------+ + + + | 08/04/ | Office | Cardiology | [facility] | | | 2020 | Visit | | [address] | | | | | | [address] | | | | | | [place] [address] | | | | | | [phone] | | | | | | | | +--------+---------+ + + + documented as of this encounter Visit Diagnoses + + | Diagnosis | + + | Subclavian steal syndrome | + + | Decreased GFR Nonspecific abnormal results of kidney function study | + + | PVD (peripheral vascular disease) (HCC) Peripheral vascular disease, unspecified | + + documented in this encounter Administered Medications + + + +------+ +------+ | Medication Order | MAR | Action | Dose | Rate | Site | | | Action | Date | | | | + + + +------+ +------+ | sodium chloride 0.45% (1/2 NS) | Rate/Dos | 02/19/20 | | 72 mL/hr | | | 1,000 mL with sodium bicarbonate | e Change | 18 11:29 | | | | | 25 mEq infusion at 72-216 mL/hr, | | AM PDT | | | | | Intravenous, ONCE, 02/18/18 | | | | | | | at 0835, For 1 dose, HYDRATION | | | | | | | PROTOCOL: 0.45% NaCl WITH NaHCO3 | | | | | | | 1/2 amp (25ml) PER LITER-RUN @ | | | | | | | 216mL/hour FOR 1 HOUR PRIOR TO | | | | | | | EXAM AND @ 72ml/hour FOR 4 HOURS | | | | | | | AFTER THE EXAM, | | | | | | + + + +------+ +------+ +---------+ +---+-------+---+ | New Bag | 02/19/20 | | 216 | | | | 18 9:40 | | mL/hr | | | | AM PDT | | | | +---------+ +---+-------+---+ +---+---+ | | | +---+---+ documented in this encounter"
--- OUTSIDE RECORDS SUMMARY | ~2020-02-23 | XMS | Encounter Summary ---
Demographics + + + | Address | [address] | | | [place] [address] | + + + | Home Phone | | + + + | Preferred Language | Unknown | + + + | Marital Status | | + + + | Protestant Affiliation | Unknown | + + + | Race | Unknown | + + + | Ethnic Group | Unknown | + + + Author + + + | Author | [facility] | | | and [place] | + + + | Organization | [facility] | | | [...] [place] | | | | | [address] | | + + + + + Care Team Providers + +------+ + | Care Energy Scheduler Name | Role | Phone | + +------+ + | Carlos Alberto Galeas MD | PCP | | + +------+ + Reason for Visit + + + | Reason | Comments | + + + | Pulmonary Disease | 2 wk follow up/CT/W OX | | Appointment | | + + + Encounter Details +--------+---------+ + + + | Date | Type | Department | Care Team | Description | +--------+---------+ + + + | 03/12/ | Office | [facility] | Valente Silvestre, | Interstitial lung | | 2018 | Visit | PULMONARY [address] | MD [address] | disease (HCC) | | | | [place], | [place] | | | | | [place] [address] | [id number] | | | | | [phone] | | | +--------+---------+ + + + [...] | Blood Pressure | 138/88 | 03/12/2018 12:51 PM | | | | | PDT | | + + + + + | Pulse | 63 | 03/12/2018 12:51 PM | | | | | PDT | | + + + + + | Temperature | - | - | | + + + + + | Respiratory Rate | - | - | | + + + + + | Oxygen Saturation | 99% | 03/12/2018 12:51 PM | | | | | PDT | | + + + + + | Inhaled Oxygen | - | - | | | Concentration | | | | + + + + + | Weight | 70.3 kg (154 lb 15.7 | 03/12/2018 12:51 PM | | | | oz) | PDT | | + + + + + | Height | 165.1 cm (5' 5") | 03/12/2018 12:51 PM | | | | | PDT | | + + + + + | Body Mass Index | 25.79 | 03/12/2018 12:51 PM | | | | | PDT [...] documented as of this encounter Patient Instructions Patient Instructions Valente Silvestre MD - 03/12/2018 1:00 PM PDT Interstitial Lung Disease Interstitial lung disease is a group of conditions that cause inflammation and scarring oliver und the tiny air sacs (alveoli) in the lungs. The changes make it hard to take in oxygen. The diaphragm is a muscle below the lungs. It flattens to draw air in as you inhale, then r ises as you exhale. Inside your lungs When you breathe, air travels in and out of your lungs through the windpipe (trachea), airw ays (bronchi), and branching airways (bronchioles). Oxygen (O2) and carbon dioxide (CO2) are exchanged in the tiny air sacs (alveoli). Oxygen passes from the alveoli to the blood vesse ls through the tissue calledinterstitium.The blood vessels then carry oxygen-rich blood to the rest of your body. Carbon dioxide moves back from the blood vessels to the alveoli. Y ou then breathe it out. Alveoli are air sacs at the ends of bronchioles. Damaged alveoli supply less oxygen to the body. How lungs become damaged With interstitial lung disease, the lungs haveinflammation and scarring around the alveol i. The changes make it hard to take in oxygen. Causes of interstitial lung disease In most cases, interstitial lung disease has no known cause. Some known causes include: Dust from asbestos or silica, gases, fumes, or poisons Some medicines Radiation therapy Certain lung infections Connective tissue disease. These include scleroderma, lupus, and rheumatoid arthritis. Treatment and healthcare providers for interstitial lung disease Treatment may include medicine, breathing techniques, exercise, and stress management. In s ome cases, you may need a lung transplant. Your healthcare team may include: Primary care provider. This could be your family doctor or non destructive testing supervisor. Assurance Engineer.This is doctor who specializes in treatinglung problems. Respiratory therapist. This person givestreatment and support for people with lung dis ease. utility worker driver. This person helps with your daily needs and family life, accessing commun [employer] resources, counseling services, and stress management. Date Last Reviewed: 09/19/201619993355-[address] [employer] [place] [address]. All righ ts reserved. This information is not intended as a substitute for professional medical care. Always follow your healthcare professional's instructions. documented in this encounter Progress Notes Valente Silvestre MD - 03/12/2018 1:00 PM PDTFormatting of this note might be different f rom the original. Pulmonary Clinic Follow Up 03/12/2018 HPI Deborah Thomason is a 87 y.o. male patient of Carlos Alberto Galeas MD here today for foll ow up of an abnormal parenchymal changes noted on the neck CT angiogram. It has been 2 weeks since our last clinic appointment. At their last visit, we established a plan to perform a dedicated CT scan of the chest. Since the last visit he feels like their symptoms are stable. They have have not had any recent episodes of "bronchitis-like" symptoms. The patient continues to receive therapy for atrial fibrillation. Currently Deborah is able to walk 1 block at their own pace on level ground before developin g back and leg symptoms. They are not exercising regularly. Their typical exercise consists of minimal walking. They are not enrolled in cardiac/pulmonary rehabilitation. He does not cough chronically, and does not produce mucous. They have not had hemoptysis s martinez our last appointment. Deborah has not been evaluated for nocturnal oxygen. He does not have symptoms of heartburn or reflux. They have not noted recent symptoms of na hardy congestion or post nasal drip. The patient have received this year's influenza vaccination. They are up to date with thei r Pneumovax but not Prevnar 13. Geovany denies chest pain or other pulmonary symptoms. 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 PVD (peripheral vascular disease) ([facility]) 02/06/2018 Urinary retention Allergies: Allergies Allergen Reactions Naproxen Other (See [...] 125 mcg by mouth., Disp: , Rfl: furosemide (LASIX) 20 mg tablet, Take 20 mg by mouth., Disp: , Rfl: metoprolol tartrate (LOPRESSOR) 25 mg tablet, Take 25 mg by mouth 2 times daily., Disp : , Rfl: Misc Natural Products (PROSTATE THERAPY COMPLEX) CAPS, Take by mouth 2 times daily., Disp: , Rfl: Multiple Vitamins-Minerals (CENTRUM SILVER) TABS, Take 1 tablet by mouth Daily., Disp: , Rfl: tamsulosin (FLOMAX) 0.4 mg CAPS, Take 2 capsules by mouth daily (after breakfast)., Di sp: 30 capsule, Rfl: 1 tocopherol (VITAMIN E) 400 units capsule, Take 400 Units by mouth Daily., Disp: , Rfl: warfarin (COUMADIN) 3 MG tablet, Take 5 mg by mouth Daily. Saturday, Sat, Saturday , Disp: , Rfl: warfarin (COUMADIN) 5 mg tablet, Take 3 mg by mouth Daily. As directed 5 mg on , hur, Sat, Saturday or as directed by doctor., Disp: , Rfl: Immunizations: Immunization History Administered Date(s) Administered INFLUENZA 65 Y OR >, TRIVALENT HIGH-DOSE 03/31/2017 PNEUMOCOCCAL POLYSACCHARIDE 23-VALENT (PPSV23) 03/31/2017 Objective BP 138/88 | Pulse 63 | Ht 1.651 m (5' 5") | Wt 70.3 kg (154 lb 15.7 oz) | SpO2 99% | B NC 25.79 kg/m Appearance: Alert, cooperative, no distress, appears stated age Head: Normocephalic, without obvious abnormality, atraumatic Eyes: PERRL, conjunctiva/corneas clear Nose: Nares normal, septum midline, mucosa normal, no drainage or sinus tenderness Throat: Lips, mucosa, and tongue normal; teeth/dentures normal Neck: Supple, symmetrical, no JVD Lungs: No accessory muscle use, breath sounds are clear to auscultation bilaterally, no w heezes, No crackles or rhonchi. No dullness to percussion. Chest Wall: No tenderness or deformity Heart: irregularly irregular, no murmur, rub or gallop Extremities: Extremities normal, atraumatic, no cyanosis, clubbing. Trace 1+ edema to t he mid calf on the right Skin: Warm and dry Lymph nodes: Cervical and supraclavicular nodes normal Neurologic: Gait normal Data: Chest CT scan(s) were done on 03/12/18. They were reviewed and interpreted in clinic today with the patient . They shows multiple abnormalities. These include too numerous to count v nikolay small nodular densities within upper lung zone predominance. Groundglass changes are no darek in the lower lung zones bilaterally. There is cardiomegaly. Mediastinal lymphadenopath y is also appreciated. The largest of these lymph nodes measures 1.7 cm in size and is loca darek in the pretracheal location. Lastly there is a 6 mm pulmonary nodule in the right upper lobe of unknown significance. Exertional oximetry performed 03/12/18. O2 saturation began at 97% with a heart rate is 64. After walking 500 feet over 4 minutes the O2 saturation stalin to 97%. Assessment 1. Abnormal CT scan of the chest Mr. Thomason is a 87-year-old male with multiple medical p roblems. The patient recently had a neck CT angiogram which showed bilateral upper lung zon e pulmonary parenchymal abnormalities. In reviewing chest x-rays abnormal upper lung zone c hanges date back to 2012. The upper lung zone changes were not noted on the chest x-ray fro 2010 or the report of a chest CT scan from November 2007. A dedicated CT scan of the chest was performed. The primary abnormality is diffuse upper l leslie zone nodular densities. The etiology of the patient's abnormal CT scan is not clear. The differential diagnosis in cludes sarcoidosis, allergic alveolitis, chronic illness eosinophilic pneumonia and eosinoph ilic granuloma. This patient has received amiodarone and typically amiodarone related lung disease has a peripheral distribution. There is no evidence of oxygen desaturation. Likewise Geovany is without significant pulmonar y symptoms. 2. Solitary pulmonary nodule the patient's CT scan likewise showed a less than 1 cm, nod ule in the right upper lobe. Differential diagnosis would include coalescence of nodular de nsities involving the upper lung zones, granuloma, bronchogenic carcinoma or post infectious changes. We will wait for formal radiology interpretation to decide on whether follow-up imaging is needed. Plan 1. Anticipate pulmonary clinic follow-up appointment in 6 months time to assess the status of the patient's symptoms. CC: Carlos Alberto Galeas MD Addendum: The interpreting radiologist characterize the nodular pattern as tree-in-bud. In reviewing the images following the appointment I concur. This pattern of changes does rais e the possibility of an atypical infectious process such as mycobacterium sharmaine complex. Ho wever the patient's symptoms are not consistent with such a diagnosis. It is reasonable to continue following his pulmonary/systemic symptomatology. Pulmonary cl inic follow-up appointment in 6 months time. documented in this encounter Plan of Treatment +--------+---------+ + + + | Date | Type | Specialty | Care Team | Description | +--------+---------+ + + + | 08/04/ | Office | Cardiology | Anusha Lomax | | | 2020 | Visit | | [address] | | | | | | [address] | | | | | | [place] [address] | | | | | | [phone] | | | | | | | | +--------+---------+ + + + documented as of this encounter Visit Diagnoses + + | Diagnosis | + + | Interstitial lung disease (HCC) Postinflammatory pulmonary fibrosis | + + documented in this encounter
--- OUTSIDE RECORDS SUMMARY | ~2020-02-23 | XMS | Encounter Summary ---
Demographics + + + | Address | [address] | | | [place] [address] | + + + | Home Phone | | + + + | Preferred Language | Unknown | + + + | Marital Status | | + + + | Zoroastrian Affiliation | Unknown | + + + | Race | Unknown | + + + | Ethnic Group | Unknown | + + + Author + + + | Author | [facility] | | | and [place] | + + + | Organization | [facility] | | | and [place] | + + + | Address | Unknown | + + + | Phone | Unavailable | + + + Support + + + + + | Name | Relationship | Address | Phone | + + + + + | Rivkaarnulfo Thomason | ECON | | | | | | [place] | | | | | [address] | | + + + + + Care Team Providers + +------+ + | Care Lease Buyer Name | Role | Phone | + [...] | Subclavian | Michael I, | [place] | | | | | steal | MD, FACS | [place], | | | | | syndrome | [address] | [place] [address] | | | | | 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[place] | Phone: | | | | | carotid | [place], [place] | [phone] | | | | | artery, | [address] | Fax: | | | | | unspecified | Phone: | [phone] | | | | | laterality | [phone] | | | | | | Peripheral | Fax: | | | | | | arterial | [phone] | | | | | | disease | | | | | | | (HCC) | | | | | | | Procedures | | | | | | | CT Angiogram | | | | | | | Neck w | | | | | | | Contrast | | | +--------+--------+ + + + + Reason for Visit Diagnostic/Screening (Routine) +--------+--------+ + + + + | Status | Reason | Specialty | Diagnoses / | Referred By | Referred To | | | | | Procedures | Contact | Contact | +--------+--------+ + + + + | Closed | | Radiology | Diagnoses | Field, | [address] | | | | | Subclavian | Michael I, | [place] | | | | | steal | , FACS | [place], | | | | | syndrome | [address] | [place] [address] | | | | | 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[place] | Phone: | | | | | carotid | [place], [place] | [phone] | | | | | artery, | [address] | Fax: | | | | | unspecified | Phone: | [phone] | | | | | laterality | [phone] | | | | | | Peripheral | Fax: | | | | | | arterial | [phone] | | | | | | disease [...] + + | 02/18/ | Hospital | [facility] | Michael Alston | Subclavian steal | | 2018 | Encounter | [facility] [address] | MD Dante, FACS [address] | syndrome; Stenosis | | | | [place], | [address] [place] | of carotid artery, | | | | [place] [address] | [place] [address] | unspecified | | | | [phone] | [phone] | laterality; | | | | | | Peripheral arterial | | | | | | disease (HCC) | +--------+ + + + + Social [...] + + + +---------+ + + | [place]-3 Fatty | Take 1 g by mouth. [...] | | 0 | | | | (KLOR-CON) 20 MEQ | mouth. | | | [...] | | | | | | [address] | | | | | | [place] [address] | | | | | | [phone] | | | | | | | | +--------+---------+ + + + documented as of this encounter Procedures + +--------+ + + + | Procedure Name | Priori | Date/Time | Associated Diagnosis | Comments | | | ty | | | | + +--------+ + + + | CT ANGIOGRAM NECK W | Routin | 02/18/2018 | Subclavian steal | Results for this | | CONTRAST | e | 11:21 AM | syndrome Stenosis | procedure are in the | | | | PDT | of carotid artery, | results section. | | | | | unspecified | | | | | | laterality | | | | | | Peripheral arterial | | | | | | disease (HCC) | | + +--------+ + + [...] The parapharyngeal, retropharyngeal, and | | | mobile game engineer spaces are normal. Complete fatty atrophy of [...] | | left proximal ICA (series 4, zmpfy725 and coronal series 602, image 70).Vertebrals: Left [...] nodularity as well as numerous | | urle-xz-cycgcwjpxy opacities seen throughout both lungs with relative [...] of groundglass nodularity as well as numerous irgc-wy-hrxjbmiraa | | opacities seen throughout both lungs [...] Subclavian steal syndrome | + + | Stenosis of carotid artery, unspecified laterality | + + | Peripheral arterial disease (HCC) Unspecified disorders of arteries and arterioles | + + documented in this encounter Administered Medications + +--------+ +---------+------+------+ | Medication Order | MAR | Action | Dose | Rate | Site | | | Action | Date | | | | + +--------+ +---------+------+------+ | iohexol (OMNIPAQUE 350) 350 | Given | 02/19/20 | 150 mLs | | | | mg/mL injection 125 mL 125 mL, | | 18 11:26 | | | | | Intravenous, ONCE PRN, Other, for | | AM PDT | | | | | CT contrast study, Starting Tue | | | | | | | 02/18/18 at 1128, For 1 dose, | | | | | | | Radiology | | | | | | + +--------+ +---------+------+------+ +---+---+ | | | +---+---+ + +------+ +--------+-------+---+ | sodium chloride 0.9% (NS) bolus | Push | 02/19/20 | 80 mLs | 4800 | | | 80 mL 80 mL, Intravenous, | | 18 11:26 | | mL/hr | | | Administer over 1 Minutes, ONCE | | AM PDT | | | | | PRN, for imaging CT study, | | | | | | | Starting Tu02/18/18 at 1128, For | | | | | | | 1 dose, Radiology | | | | | | + +------+ +--------+-------+---+ +---+---+ | | | +---+---+ documented in this encounter"
--- OUTSIDE RECORDS SUMMARY | ~2020-02-23 | XMS | Encounter Summary ---
Demographics + + + | Address | [address] | | | [place] [address] | + + + | Home Phone | | + + + | Preferred Language | Unknown | + + + | Marital Status | | + + + | Oriental Orthodox Affiliation | Unknown | + + [...] [place] | | | | | [address] | | + + + + + Care Team Providers + +------+ + | Care Mechanical Laboratory Technician Name | Role | Phone | + +------+ + | Carlos Alberto Galeas MD | PCP | | + +------+ + Encounter Details +--------+ + + + + | Date | Type | Department | Care Team | Description | +--------+ + + + + | 02/03/ | Hospital | [facility] | Carlos Alberto Galeas | Stenosis of carotid | | 2018 | Encounter | [facility] | MD Dylan [address] | artery, unspecified | | | | [address] [place] | [address] | laterality | | | | [place], [place] | [place] [address] | | | | | [address] | [phone] | | | | | [phone] | | | | | | | [...] [address] | | | | | | [place] [address] | | | | | | [phone] | | | | | | | [...] vertebral artery. Dictated and Signed by: Nikko | | | MD Jean-Pierre Electronically signed: 02/03/2018 3:44 PM | | [...]
--- OUTSIDE RECORDS SUMMARY | ~2020-02-23 | XMS | Encounter Summary ---
Demographics + + + | Address | [address] | | | [place] [address] | + + + | Home Phone [...] + | Organization | [facility] | | | and [place] | + + + | Address | Unknown | + + + | Phone | Unavailable | + + + Support + + + + + | Name | Relationship | Address | Phone | + + + + + | Rivka Eileen | ECON | | | | | | [place] | | | | | [phone] | | + + + + + Care Team Providers + +------+ + | Care Claim Technician Name | Role | Phone | + +------+ + | Taiwo Lee MD | PCP | | + +------+ [...] + + | 12/19/ | Surgery | [facility] | Perfecto Mancuso MD | [facility] | | 2017 | | [facility] | [address] | [facility] | | | | [address] | [place] | | | | | [place] | [address] | | | | | [address] | [phone] | | | | | [phone] | | | +--------+---------+ + + + [...] + + + | Blood Pressure | 107/75 | 12/19/2016 8:15 PM | | | | | PDT | | + + + + + | Pulse | 104 | 12/19/2016 8:15 PM | | | | | PDT | | + + + + + | Temperature | 36.1 C (97 F) | 12/19/2016 7:39 PM | | | | | PDT | | + + + + + | Respiratory Rate | 15 | 12/19/2016 8:15 PM | | | | | PDT | | + + + + + | Oxygen Saturation | 92% | 12/19/2016 8:15 PM | | | | | PDT | | + + + + + | Inhaled Oxygen | - | - | | | Concentration | | | | + + + + + | Weight | 78 kg (172 lb) | 12/18/2016 10:05 PM | | | [...] PM PDT DISCHARGE SUMMARY Patient Name: Dora Arellano : 1930 Date of Admission: 12/18/2016 Date of Discharge: 12/31/2016 Admitting Physician: Gamal Serrano MD Discharging Physician: Radha Hoyt MD Primary Care Provider: Taiwo Lee MD Discharge Diagnoses: Principal Problem: Femur fracture, [...] mL RT EVERY 4 HOURS PRN LAW BURSH Signed and Held Signed and Held alteplase (CATHFLO ACTIVASE) injection 2 mg PRN LAW BRUSH Signed and Held Signed and Held amiodarone (PACERONE) tablet 200 mg DAILY LAW BRUSH Signed and Held Signed and Held atorvaSTATin (LIPITOR) tablet 20 mg NIGHTLY LAW BRUSH Signed and Held Signed and Held docusate sodium (COLACE) capsule 100 mg 2 TIMES DAILY AK N LAW BRUSH Signed and Held Signed [...] chewable tablet 1,000 mg EVERY 8 HOURS PRN LAW BRUSH Signed and Held Signed and Held aluminum [...] signed by: Radha Hoyt MD, 12/31/2016 15:39 documented in this enc ounter Medications at [...] Hawthorne MD - 12/20 11:40 AM PDT [facility] HOSPITALIST PROGRESS NOTE Patient: Dora Arellano : 1930: Age: 86 y.o. MedRec: [id number] PCP: Taiwo Lee MD Admission date: 12/18/2016 Hospital day # [...] Gamal Serrano MD 20 mg at 0 12/29/16 2054 docusate sodium (COLACE) capsule 100 mg 100 mg Oral BID PRN Gamal Serrano MD 100 m g at 12/26/16 0908 heparin 5,000 units/mL injection 5,000 Units 5,000 Units Subcutaneous 2 times per day Radha Hoyt MD 5,000 Units at 12/30/16 0936 [...] IV vitamin K #7 Delirium with sundowning: -Improved -Likely secondary to acute illness and prolonged ICU stay -Frequent reorientation *Anticipate discharge to inpatient rehab versus fpc facility tomorrow. DVT Prophylaxis SCD's while in bed Code Status DNR/DNI. Total time of approximately 35 minutes was spent with the patient and/or patient's family, and/or on the patient's floor/unit, of which more than 50% was spent counseling and/or coord ination the patient's care as outlined above. Radha Hoyt 12/30/2016 11:41 [facility] Radha Hawthorne MD - 12/29/2016 4:14 PM PDTFormatting of this note might be di fferent from the original. [facility] HOSPITALIST PROGRESS NOTE Patient: Dora Arellano : 1930: Age: 86 y.o. MedRec: [id number] PCP: Taiwo Lee MD Admission date: 12/18/2016 Hospital day # [...] SpO2 93 % on nasal cannula at apblito w rate 1L/min Temp Min: 36.7 C [...] Serrano MD 20 mg at 0 12/28/16 203 docusate sodium (COLACE) capsule 100 mg 100 [...] lactated ringers (LR) infusion Intravenous Continuous Valente Michel Munoz MD metoprolol tartrate (LOPRESSOR) tablet 50 [...] IV vitamin K #7 Delirium with : -Likely secondary to acute illness and prolonged [...] as outlined above. Radha Hoyt 12/29/2016 16:14 [facility] Valeria Bush RN - 12/28/2016 6:20 PM [...] might be different from t he original. [facility] HOSPITALIST PROGRESS NOTE Patient: Dora Arellano : 1930: Age: 86 y.o. MedRec: [id number] PCP: Taiwo Lee MD Admission date: 12/18/2016 Hospital day # [...] Crossmatch Result Value Ref Range Product Code B4269M97 UNIT # [id number] UNIT ABO O UNIT RH POS CROSSMATCH INTERP Compatible Unit Status Returned Blood Product ABORh OPOS Blood Product Expiration Date and Time Product Blood Type Barcode 5100 Product Code V6498Y53 UNIT # [id number] UNIT ABO O UNIT RH POS CROSSMATCH [...] Gamal Serrano MD 20 mg at 0 12/27/16 2044 cefTRIAXone (ROCEPHIN) 1 g in sodium [...] 0834 lactated ringers (LR) infusion Intravenous Continuous Valente Munoz MD norepinephrine in NS (LEVOPHED) 16 mcg/mL infusion 1-30 mcg/min Intravenous Titrated V debi Hendrix MD Stopped at 12/24/16 1111 oxyCODONE (ROXICODONE) tablet 5-10 mg 5-10 mg Oral Q4H PRN Gamal Serrano MD 5 mg a t 12/27/16 1354 polyethylene glycol (MIRALAX) powder 17 g 17 g Oral Daily PRN Gamal Serarno MD 17 g at 12/24/16 0750 senna [...] as outlined above. Radha Hoyt 12/28/2016 15:06 [facility] Radha Hawthorne MD - 12/27/2016 4:44 PM PDTFormatting of this note might be di fferent from the original. [facility] HOSPITALIST PROGRESS NOTE Patient: Dora Arellano : 1930: Age: 86 y.o. MedRec: [id number] PCP: Tiawo Lee MD Admission date: 12/18/2016 Hospital day # [...] Gamal Serrano MD 20 mg at 0 12/26/162106 cefTRIAXone (ROCEPHIN) 1 g in sodium chloride [...] lactated ringers (LR) infusion Intravenous Continuous Valente Michel Munoz MD norepinephrine in NS (LEVOPHED) 16 [...] as outlined above. Radha Hoyt 12/27/2016 16:44 [facility] Elsa Rodriguez PA-C - 12/27/2016 11:09 AM [...] Elsa Arzola PA-C DATE/TIME: 12/27/2016 11:09 Ora Medina, PharmD - 12/27/2016 6:49 AM PDTFormatting of this note might be different from the origi nal. WARFARIN PER PHARMACY PROTOCOL: CURRENTLY HOLDING WARFARIN (High INR) Subjective/Objective: Dora Arellano is a 86 y.o. male admitted on 12/18/2016 for orthopedic surgery secondar y to femoral fracture. 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 Warfarin education received No; REGULATORY COMPLIANCE SPECIALIST Will monitor daily Warfarin Dosing Nomogram Warfarin Dosing Expectations Per P&T-approved Electronically signed by: Ora Aranda Jan 12/27/2016 6:49 aRdha Hawthorne MD - 12/26/2016 1:46 PM PDT [facility] HOSPITALIST PROGRESS NOTE Patient: Dora Arellano : 1930: Age: 86 y.o. MedRec: [id number] PCP: Taiwo Lee MD Admission date: 12/18/2016 Hospital day # [...] Plasma Result Value Ref Range Product Code G8693H30 UNIT # [id number] UNIT ABO O UNIT RH POS Unit Status Transfused Blood Product ABORh OPOS Blood Product Expiration Date and Time Product Blood Type Barcode 5100 Product Code E9969F90 UNIT # [id number] UNIT ABO O UNIT RH POS Unit Status Transfused Blood Product ABORh OPOS Blood Product Expiration Date and Time 223640187068 Product Blood Type Barcode 5100 Occult Blood, [...] Gamal Serrano MD 20 mg at 0 12/25/164 cefTRIAXone (ROCEPHIN) 1 g in sodium chloride 0.9% 50 mL IVPB 1 g Intravenous Daily Tiffani Hendrix MD 100 mL/hr at 12/26/16 0845 [...] pharmacy to dose warfarin Other Pharmacy Consult Perfecto Mancuso MD polyethylene glycol (MIRALAX) powder 17 [...] as outlined above. Radha Hoyt 12/26/2016 13:46 [facility] Joao Gaviria, PharmD - 12/26/2016 12:06 PM PDTFormatting of this note might b e different from the original. WARFARIN PER PHARMACY PROTOCOL: CURRENTLY HOLDING WARFARIN (High INR) Subjective/Objective: Dora Arellano is a 86 y.o. male admitted on 12/18/2016 for orthopedic surgery secondar y to femoral fracture. 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 Patient is [...] on Cr of 1.01). Date 12/19 12/20 6 6 6 6 6 6 Hgb 10.9 8.7 9.1 7.8 7.7 7.2 [...] Hct in am. Warfarin education received No; REGULATORY COMPLIANCE SPECIALIST Will monitor daily Warfarin Dosing Nomogram Warfarin Dosing Expectations Per P&T-approved Electronically signed by: Joao Holcomb, PharmD 12/26/2016 12:06 Idania Howard RRT - 12/26/2016 7:30 AM PDTVern declined the incentive deep breathing exercises this morning. I informed him that his left lung base is diminished with crackles, which means he needs to do it, clinically he needs to do it. Radha Hawthorne MD - 12/25/2016 4:55 PM PDTFormatting of th is note might be different from the original. [facility] HOSPITALIST PROGRESS NOTE Patient: Dora Arellano : 1930: Age: 86 y.o. MedRec: [id number] PCP: Taiwo Lee MD Admission date: 12/18/2016 Hospital day # [...] Crossmatch Result Value Ref Range Product Code B3937W51 UNIT # [id number] UNIT ABO O UNIT RH POS CROSSMATCH INTERP Compatible Unit Status Crossmatched Blood Product ABOR OPOS Blood Product Expiration Date and Time Product Blood Type Barcode 5100 Product Code F5468K12 UNIT # [id number] UNIT ABO O UNIT RH POS CROSSMATCH INTERP Compatible Unit Status Transfused Blood Product [facility] OPOS Blood Product Expiration Date and Time Product Blood Type Barcode 5100 Red Blood Cells (PRBC) - Crossmatch Result Value Ref Range Product Code O5719C24 UNIT # [id number] UNIT ABO O UNIT RH NEG CROSSMATCH INTERP Compatible Unit Status Transfused Blood Product [facility] ONEG Blood Product Expiration Date and Time [...] Plasma Result Value Ref Range Product Code A8095I26 UNIT # [id number] UNIT ABO O UNIT RH POS Unit Status Issued Blood Product ABORh OPOS Blood Product Expiration Date and Time [id number] Product Blood Type Barcode 5100 Product Code Y4937F32 UNIT # [id number] UNIT ABO O UNIT RH POS Unit Status Issued Blood Product ABORh OPOS Blood Product Expiration Date and Time 590063618721 Product Blood Type Barcode 5100 Xr Chest [...] Gamal Serrano MD 20 mg at 0 12/24/162024 azithromycin (ZITHROMAX) 500 mg in sodium chloride 0.9% 250 mL IVPB 500 mg Intravenous Daily Angel Hendrix MD 255 mL/hr at 12/25/1621 500 mg at 12/25/16 09 cefTRIAXone (ROCEPHIN) 1 g in sodium chloride [...] pharmacy to dose warfarin Other Pharmacy Consult Perfecto Mancuso MD polyethylene glycol (MIRALAX) powder 17 [...] as outlined above. Radha Hoyt 12/25/2016 16:56 [facility] Perfecto Smith MD - 0 12/25/2016 10:32 AM [...] Crossmatch Result Value Ref Range Product Code C7795P84 UNIT # [id number] UNIT ABO O UNIT RH POS CROSSMATCH INTERP Compatible Unit Status Crossmatched Blood Product [facility] Blood Product Expiration Date and Time [id number] Product Blood Type Barcode 5100 Product Code G7853J53 UNIT # [id number] UNIT ABO O UNIT RH POS CROSSMATCH INTERP Compatible Unit Status Transfused Blood Product ABORh OPOS Blood Product Expiration Date and Time Product Blood Type Barcode 5100 Red Blood Cells (PRBC) - Crossmatch Result Value Ref Range Product Code C6019F74 UNIT # [id number] UNIT ABO O UNIT RH NEG CROSSMATCH INTERP Compatible Unit Status Transfused Blood Product ABOR ONEG Blood Product Expiration [...] Mobilize as able. DVT prophylaxis with warfarin. Perfecto Mancuso MD DATE/TIME: 12/25/2016 10:32 Joao Gaviria, PharmD - 12/25/2016 8:35 AM PDT WARFARIN PER PHARMACY PROTOCOL: CURRENTLY HOLDING WARFARIN (High INR) Subjective/Objective: Dora Arellano is a 86 y.o. male admitted on 12/18/2016 for orthopedic surgery secondar y to femoral fracture. 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 Patient is receiving warfarin for thromboprophyla xis postop and also for atrial flutter. Surgery date: 12/19/[address] Mancuso Goal INR: 2-3 Enoxaparin bridge: disch Inr>2 none Drug Interactions:Amiodarone Sensitizers:Age Recent Labs Lab 12/25/16 0355 12/24/16202912/24/16 03512/23/16 0435 12/23/16 043 CREA 0.98 -- 1.01 -- -- 1.25 [...] 12/19 12/20 12/21 12/22 12/23 12/24 12/25 Hgb 10.9 8.7 9.1 7.8 7.7 7.2 [...] it to MWF. Warfarin education received No; REGULATORY COMPLIANCE SPECIALIST Will monitor daily Warfarin Dosing Nomogram Warfarin [...] - 101 18 94 % - 12/23/16 184 94/69 (!) 38 C (100.4 F) - [...] PH UA 5.0 5.0 - 8.0 Specific [place] 1.016 1.001 - 1.030 PROTEIN UA 30 mg/dL (A) Negative BLOOD UA Small (A) Negative GLUCOSE UA Negative Negative KETONES UA Negative Negative BILIRUBIN UA Negative Negative NITRITE UA Negative Negative LEUKOCYTES ESTERASE UA Negative Negative UROBILINOGEN UA Negative 0.2 mg/dL, 1.0 mg/dL, Negative Red Blood Cells (PRBC) - Crossmatch Result Value Ref Range Product Code I3854U64 UNIT # [id number] UNIT ABO O UNIT RH POS CROSSMATCH INTERP Compatible Unit Status Crossmatched Blood Product ABOR OPOS Blood Product Expiration Date and Time Product Blood Type Barcode 5100 Product Code H2555W90 UNIT # [id number] UNIT ABO O UNIT RH POS CROSSMATCH INTERP Compatible Unit Status Issued Blood Product [facility] Blood Product Expiration Date and Time Product Blood Type Barcode 5100 Red Blood Cells (PRBC) - Crossmatch Result Value Ref Range Product Code U4832I31 UNIT # [id number] UNIT ABO O UNIT RH NEG CROSSMATCH INTERP Compatible Unit Status Crossmatched Blood Product [facility] Blood Product Expiration Date and Time Product [...] note might be different from the original. [facility] HOSPITALIST PROGRESS NOTE Patient: Dora Arellano : 1930: Age: 86 y.o. MedRec: [id number] PCP: Taiwo Lee MD Admission date: 12/18/2016 Hospital day # [...] Crossmatch Result Value Ref Range Product Code B5823L82 UNIT # [id number] UNIT ABO O UNIT RH POS CROSSMATCH INTERP Compatible Unit Status Crossmatched Blood Product ABORh OPOS Blood Product Expiration Date and Time Product Blood Type Barcode 5100 Product Code M5289B93 UNIT # [id number] UNIT ABO O UNIT RH POS CROSSMATCH [...] as outlined above. Angel Hendrix 12/24/2016 9:52 [facility] Ora Medina, PharmD - 12/24/2016 6:57 AM PDT WARFARIN PER PHARMACY PROTOCOL: Subjective/Objective: Dora Arellano is a 86 y.o. male admitted on 12/18/2016 for orthopedic surgery secondar y to femoral fracture. 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 Patient is receiving warfarin for thromboprophyla xis postop and also for atrial flutter. Surgery date: 12/19/2016 [x]Fx []THR []TKR Dr. Mancuso Goal INR: 2-3 Enoxaparin bridge: []disch [x]Inr>2 []none Drug Interactions:Amiodarone Sensitizers:Age Recent Labs Lab 12/24/16 0351 12/23/16 1003 12/23/16 0435 12/23/16 0434 12/22/16201312/22/16 03412/22/16 0340 HGB 7.2* 7.7* 7.7* -- 7.6* [...] it to MWF. Warfarin education received No; REGULATORY COMPLIANCE SPECIALIST Will monitor daily Warfarin Dosing Nomogram Warfarin Dosing Expectations Per P&T-approved Ora Aranda RPH 12/24/2016 6:57 Perfecto Smith MD - 12/23/2016 6:17 PM PDT [...] F) Bladder 112 17 93 % - 12/22/165 113/57 37.7 C (99.9 F) - 111 17 93 % - 12/22/160 100/57 37.7 C (99.9 F) - 119 20 92 % - 12/22/16 2215 107/55 37.8 C (100 F) - 100 16 97 % - 12/22/160 91/61 37.7 C (99.9 F) - 108 18 97 % - 12/22/16 2145 (!) 86/61 37.8 C (100 F) - 107 17 91 % - 12/22/16 2130 98/64 37.9 C (100.2 F) - 104 21 94 % - 12/22/16 211 95/56 37.9 C (100.2 F) - 110 18 95 % - 12/22/16 2100 96/54 37.9 C (100.2 F) - 99 [...] F) - 96 17 93 % - 12/22/16 1945 95/61 (!) 38.1 C (100.6 F) - 110 17 95 % - 12/22/16 193 (!) 78/52 (!) 38.1 C (100.6 F) [...] Crossmatch Result Value Ref Range Product Code Q6766N06 UNIT # [id number] UNIT ABO O UNIT RH POS CROSSMATCH INTERP Compatible Unit Status Transfused Blood Product [facility] [employer] Blood Product Expiration Date and Time Product Blood Type Barcode 5100 Product Code X2907G30 UNIT # [id number] UNIT ABO O UNIT RH POS CROSSMATCH INTERP Compatible Unit Status Transfused Blood Product [facility] [employer] Blood Product Expiration Date and Time Product [...] manageme nt per hospitalist team. Will follow. Perfecto Mancuso MD DATE/TIME: 12/23/2016 18:17 atel, MD Angel - 0 12/23/2016 9:04 AM PDT [facility] HOSPITALIST PROGRESS NOTE Patient: Dora Arellano : 1930: Age: 86 y.o. MedRec: [id number] PCP: Taiwo Lee MD Admission date: 12/18/2016 Hospital day # [...] Crossmatch Result Value Ref Range Product Code P5363Y62 UNIT # [id number] UNIT ABO O UNIT RH POS CROSSMATCH INTERP Compatible Unit Status Transfused Blood Product [facility] OPOS Blood Product Expiration Date and Time Product Blood Type Barcode 5100 Product Code B7740E45 UNIT # [id number] UNIT ABO O UNIT RH POS CROSSMATCH INTERP Compatible Unit Status Transfused Blood Product [facility] OPOS Blood Product Expiration Date and Time [...] as outlined above. Angel Hendrix 12/23/2016 9:04 [facility] Salena Howard , CELLO TEACHER - 12/23/2016 7:45 AM PDTVern's BS are clear of wheezes or rhonchi, dim in bases, stil l wearing O2 @ 2 lpm. SpO2 91 to 94%. Tolerates TX's well. PEP therapy helps with secretion removal. Barbara Rowley PharmD - 12/23/2016 7:12 AM PDTFormatting of this note might be different from the orig inal. ADDENDUM: warfarin being held today for possible bleed. Barbara Lee, Prasanna 12/23/2016 14:00 WARFARIN PER PHARMACY PROTOCOL: Subjective/Objective: Dora Arellano is a 86 y.o. male admitted on 12/18/2016 for orthopedic surgery secondar y to femoral fracture. 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 Patient is receiving warfarin for thromboprophyla xis postop and also for atrial flutter. Surgery date: 12/19/2016 [x]Fx []THR []TKR Dr. Mancuso Goal INR: 2-3 Enoxaparin bridge: []disch [x]Inr>2 []none Drug Interactions:Amiodarone Sensitizers:Age Recent Labs Lab 12/23/16 0435 12/23/16 0434 12/22/16201312/22/1634012/22/16 03412/21/16 034 HGB 7.7* -- 7.6* -- 7.8* 9.1* HCT 23.1* -- 23.1* -- 23.4* 26.7* PLT 195 -- 194 -- 160 144 CREA -- 1.25 -- 1.12 -- 1.16 INR 2.18* -- -- -- 2.07* 1.82* Date 12/19 12/20 6/12/22 Hgb 10.9 8.7 9.1 7.8 7.7 Hct [...] it to MWF. Warfarin education received No; REGULATORY COMPLIANCE SPECIALIST Will monitor daily Warfarin Dosing Nomogram Warfarin [...] - Oral - - - - 12/21/16 1918 (!) 89/58 (!) 38.3 C (100.9 F) [...] Crossmatch Result Value Ref Range Product Code G2570E40 UNIT # [id number] UNIT ABO O UNIT RH POS CROSSMATCH INTERP Compatible Unit Status Transfused [facility] Product Expiration Date and Time Product Blood Type Barcode 5100 Product Code H3231R64 UNIT # [id number] UNIT ABO O UNIT RH POS CROSSMATCH INTERP Compatible Unit Status Issued Blood Product [facility] Blood Product Expiration Date and Time [...] placement. Elsa Arzola PA-C DATE/TIME: 12/22/2016 13:56 atel, Jayden amin MD - 12/22/2016 9:39 AM PDT [facility] HOSPITALIST PROGRESS NOTE Patient: Dora Arellano : 1930: Age: 86 y.o. MedRec: [id number] PCP: Taiwo Lee MD Admission date: 12/18/2016 Hospital day # [...] lb) I/O last 3 completed shifts: In: 0 [P.O.:800; I.V.:810; IV Piggyback:500] Out: 1230 [Urine:1165; [...] therapeutic 2.07, c/w Lovenox -coumadin bridge. G ivethan high risk of PE post OP) -pharmacy [...] as outlined above. Angel Hendrix 12/22/2016 9:39 [facility] Salena Howard , CELLO TEACHER - 12/22/2016 9:01 AM PDTPt's right 3rd toe was cleaned and made ready for new applica tion of oximetry probe. Values remain the same, preparation for room air oximetry evaluatio n. aDemi lópez PharmD - 12/22/2016 8:56 AM PDTFormatting of this note might be different from e original. WARFARIN PER PHARMACY PROTOCOL: Subjective/Objective: Dora Arellano is a 86 y.o. male admitted on 12/18/2016 for orthopedic surgery secondar y to femoral fracture. 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 Patient is receiving warfarin for thromboprophyla xis postop and also for atrial flutter. Surgery date: 12/19/2016 [x]Fx []THR []TKR Dr. Gryler Goal INR: 2-3 Enoxaparin bridge: []disch [x]Inr>2 [...] Hct in am Warfarin education received No; REGULATORY COMPLIANCE SPECIALIST Will monitor daily Warfarin Dosing Nomogram Warfarin Dosing Expectations Per P&T-approved Callie Burris PharmD 12/22/2016 8:56 Alisia Guajardo on, RN - 12/21/2016 2:57 PM PDTSkin tear [...] Kathie Cabrera RN at 12/21/2016 2:59 PM PDTKathie Cabrera RN - 12/21/2016 12 :40 PM PDTCare assumed of patient. Report received from SANDY Crandall. ateAngel moncada MD - 12/21/2016 9:35 AM PDTFor matting of this note might be different from the original. [facility] HOSPITALIST PROGRESS NOTE Patient: Dora Arellano : 1930: Age: 86 y.o. MedRec: [id number] PCP: Taiwo Lee MD Admission date: 12/18/2016 Hospital day # [...] Crossmatch Result Value Ref Range Product Code K5509G35 UNIT # [id number] UNIT ABO O UNIT RH POS CROSSMATCH INTERP Compatible Unit Status Transfused Blood Product [facility] Blood Product Expiration Date and Time Product Blood Type Barcode 5100 Product Code J4425L82 UNIT # [id number] UNIT ABO O UNIT RH POS CROSSMATCH INTERP Compatible Unit Status Crossmatched Blood Product [facility] Blood Product Expiration Date and Time [...] therapeutic 1.82, c/w Lovenox -coumadin bridge. G john high risk of PE post OP) -pharmacy [...] as outlined above. Angel Hendrix 12/21/2016 9:35 [facility] Radha Ferrer PharmD - 12/21/2016 8:55 AM PDT WARFARIN PER PHARMACY PROTOCOL: Subjective/Objective: Dora Arellano is a 86 y.o. male admitted on 12/18/2016 for orthopedic surgery secondar y to femoral fracture. 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 Patient is [...] -- 1.67* 1.78* -- Date 12/19 12/20 12/21 Hgb 10.9 8.7 9.1 Hct 33.4 26.5 [...] Hct in am Warfarin education received No; REGULATORY COMPLIANCE SPECIALIST Will monitor daily Warfarin Dosing Nomogram Warfarin Dosing Expectations Per P&T-approved Radha Doherty, PharmD 12/21/2016 8:55 Perfecto Smith MD - 12/21/2016 7:49 AM PDT [...] F) - 102 20 95 % - 12/20/162129 (!) 80/59 (!) 38.8 C (101.8 F) - 99 22 96 % - 12/20/162110 - - - 105 20 97 % - 12/20/162058 (!) 80/54 (!) 39 C (102.2 F) - 106 22 96 % - 12/20/162036 91/59 (!) 39.1 C (102.4 F) - 109 23 - - 12/20/162029 (!) 84/58 (!) 39.1 C (102.4 F) [...] Crossmatch Result Value Ref Range Product Code X2528Y03 UNIT # [id number] UNIT ABO O UNIT RH POS CROSSMATCH INTERP Compatible Unit Status Transfused Blood Product ABORh OPOS Blood Product Expiration Date and Time 610179568119 Product Blood Type Barcode 5100 Product Code V1586N55 UNIT # [id number] UNIT ABO O UNIT RH POS CROSSMATCH INTERP Compatible Unit Status Crossmatched Blood Product ABORh OPOS Blood Product Expiration Date and Time [id number] Product Blood Type Barcode 5100 Basic Metabolic [...] Mobilize as able. DVT prophylaxis. SNF placement. Perfecto Mancuso MD DATE/TIME: 12/21/2016 7:49 Jordan Garnett, PharmD - 12/20/2016 7:15 PM PDT PHARMACY SERVICES: ADMISSION MEDICATION REVIEW Dora Arellano is a 86 y.o. male admitted on 12/18/16. Patient is a reliable historian. Location of Patient when reviewed: ED X Medical Floor Patient s prior to admit medication and over the counter (OTC) medications/herbal supplem ents list obtained from: X Verbal interview X Patient ABLE to recall name, strength, and directions X Doctor's office: [facility] Medicine X Care Everywhere Vaccines up to [...] performed and electronically signed by Don Siu, Food And Beverage Service Manager 12/20/2016 19:03 Jordan Ball, PharmD 12/20/2016 19:16 Valeria Bush RN - 12/20/2016 [...] working on in - hospital rehab request. Everette, Joao Kessler, PharmD - 12/20/2016 12:21 PM PDTFormatting of thi s note might be different from the original. WARFARIN PER PHARMACY PROTOCOL: Subjective/Objective: Dora Arellano is a 86 y.o. male admitted on 12/18/2016 for orthopedic surgery secondar y to femoral fracture. 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 Patient is [...] Hct in am Warfarin education received No; REGULATORY COMPLIANCE SPECIALIST Will monitor daily Warfarin Dosing Nomogram Warfarin Dosing Expectations Per P&T-approved Joao Holcomb PharmD 12/20/2016 12:21 atel, MD Angel - 12/20/2016 10:16 AM PDT [facility] HOSPITALIST PROGRESS NOTE Patient: Dora Arellano : 1930: Age: 86 y.o. MedRec: [id number] PCP: Taiwo Lee MD Admission date: 12/18/2016 Hospital day # [...] Crossmatch Result Value Ref Range Product Code Y7229E14 UNIT # [id number] UNIT ABO O UNIT RH POS CROSSMATCH INTERP Compatible Unit Status Crossmatched Blood Product ABORh OPOS Blood Product Expiration Date and Time Product Blood Type Barcode 5100 Product Code U4687L68 UNIT # [id number] UNIT ABO O UNIT RH POS CROSSMATCH [...] Plasma Result Value Ref Range Product Code F5666S62 UNIT # [id number] UNIT ABO O UNIT RH POS Unit Status Transfused Blood Product ABORh OPOS Blood Product Expiration Date and Time Product Blood Type Barcode 5100 Product Code V7502C26 UNIT # [id number] UNIT ABO O UNIT RH POS Unit Status Transfused Blood Product ABORh OPOS Blood Product Expiration Date and Time Product Blood Type Barcode 5100 Product Code L6046X01 UNIT # [id number] UNIT ABO O UNIT RH POS Unit Status Transfused Blood Product ABORh OPOS Blood Product Expiration Date and Time Product Blood Type Barcode 5100 Product Code T4800T18 UNIT # [id number] UNIT ABO O UNIT RH POS Unit Status Crossmatched Blood Product ABORh OPOS Blood Product Expiration Date and Time Product Blood Type Barcode 5100 Xr Chest Pa Or Ap Result Date: 12/19/2016 External films for comparison only - no result from [facility]. Xr Femur Left 2+vw Result Date: 12/19/2016 [...] for comparison only - no result from [facility]. Xr Femur Right 2+vw Result Date: 12/19/2016 [...] for comparison only - no result from [facility]. Ms C-arm Stats No Charge Result Date: 12/19/2016 [...] as outlined above. Angel Hendrix 12/20/2016 10:20 [facility] Addendum Right basilar pneumonia. Perfecto Smith MD - 12/20/2016 7:35 AM PDTFormatting of this note might be different fr om the original. Subjective: Pain well controlled. C/o sore throat Objective: Patient Vitals for the past 24 hrs: BP Temp Temp src Pulse Resp SpO2 Weight 12/20/16 0735 - (!) 38.1 C (100.6 F) [...] - - 101 27 94 % - 12/19/16 2145 113/71 - - 114 26 94 % - 12/19/16 2130 115/79 - - 97 16 94 % - 12/19/162127 - - - 116 23 96 % - 12/19/162114 100/78 - - 105 22 94 % - 12/19/162099 100/75 - - 110 12 94 % - 12/19/162044 107/76 35.5 C (95.9 F) - 105 16 94 % 83.4 kg (183 lb 13.8 oz) 12/19/162014 107/75 - - 104 15 92 % - 12/19/161999 134/65 - - 108 14 (!) 86 % - 12/19/16 1950 105/74 - - 111 18 93 % - 12/19/16 1945 124/69 - - 109 20 - - 12/19/16 1940 126/75 - - 107 15 93 % [...] Crossmatch Result Value Ref Range Product Code K6265E45 UNIT # [id number] UNIT ABO O UNIT RH POS CROSSMATCH INTERP Compatible Unit Status Crossmatched Blood Product ABORh OPOS Blood Product Expiration Date and Time Product Blood Type Barcode 5100 Product Code Z1034D53 UNIT # [id number] UNIT ABO O UNIT RH POS CROSSMATCH [...] Plasma Result Value Ref Range Product Code W8813A94 UNIT # [id number] UNIT ABO O UNIT RH POS Unit Status Transfused Blood Product ABORh OPOS Blood Product Expiration Date and Time Product Blood Type Barcode 5100 Product Code X3787Z44 UNIT # [id number] UNIT ABO O UNIT RH POS Unit Status Transfused Blood Product ABORh OPOS Blood Product Expiration Date and Time Product Blood Type Barcode 5100 Product Code Q5856S54 UNIT # [id number] UNIT ABO O UNIT RH POS Unit Status Transfused Blood Product ABORh OPOS Blood Product Expiration Date and Time Product Blood Type Barcode 5100 Product Code L7857Z25 UNIT # [id number] UNIT ABO O UNIT RH POS Unit [...] on warfarin for DVT prophylaxis. Follow HCT. Perfecto Mancuso MD DATE/TIME: 12/20/2016 7:35 rJuan J kim, CELLO TEACHER - 12/19/2016 9:31 PM PDT Severity Score [...] 8-11 3 12-14 4 15+ 5 Jordan Garnett Pha rmD - 12/19/2016 8:53 PM PDT WARFARIN PER PHARMACY PROTOCOL: Subjective/Objective: Dora Arellano is a 86 y.o. male admitted on 12/18/2016 for orthopedic surgery secondar y to femoral fracture. 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 Patient is [...] Vit K; 1st dose initiated a t 2129 on 12/19 Plan: Initiate warfarin 3 mg po daily; same as home regimen INR, Hgb, Hct in am Warfarin education received No; REGULATORY COMPLIANCE SPECIALIST Will monitor daily Warfarin Dosing Nomogram Warfarin Dosing Expectations Per P&T-approved Jordan Ball PharmD 12/19/2016 20:53 Cheng Delvalle MD - 12/19/2016 12:23 PM PDTFormatting of this note might be different from the [facility] HOSPITALIST PROGRESS NOTE Patient: Dora Arellano : 1930: Age: 86 y.o. MedRec: [id number] PCP: Taiwo Lee MD Admission date: 12/18/2016 Hospital day # [...] m g daily. He follows with a oven operator in [place] at [facility]. He has a walker and a cane, usually uses his cane and lost his balance and fell backwards alycia satish both femurs and was seen in [facility] and sent to [facility] after contacted Dr. Pricilla Pop He was noted have multiple skin tears. He denied that he passed out and denied any c hest pain or chest pressure. No headache. No hip pain but both femurs hurt, denied arthri tis. He has an incurable skin condition follows with sealer sander Dr. Anuja Kaminski. He use s what sounds like Kenalog cream. He has a remote history of mycoses fungoides diagnosed in [facility] probably 15 or 20 years ago. His [...] 36.7 C (98.1 F) PHYSICAL EXAM: Gen Jerri - alert, cooperative and no distress Head [...] the last 168 hours. Recent Labs Lab 12/19/1618 GLU 97 NA 139 K 4.5 CL 107 CO2 24 ANIONGAP 8 BUN 19* CREA 1.23 GFRNONAA 56* CALCIUM 8.3 No results for input(s): BNP in the last 168 hours. Recent Labs Lab 12/19/16 0618 MG 1.8 Recent Results (from the past [...] ECGs available Confirmed by ALINA DURBIN, ROMERO ([id number]) on 12/19/2016 6:58:41 AM Protime INR Result Value Ref Range Xr Chest Pa Or Ap Result Date: 12/19/2016 External films for comparison only - no result from [facility]. Xr Femur Left 2+vw Result Date: 12/19/2016 External films for comparison only - no result from [facility]. Xr Femur Right 2+vw Result Date: 12/19/2016 External films for comparison only - no result from [facility]. ASSESSMENT and PLAN: Femur fracture, right as [...] as outlined above. Kamran Tom 12/19/2016 12:23 [facility] documented in t his encounter H&P Notes Perfecto Mancuso MD - 12/18/2016 10:21 PM PDT [facility] HISTORY AND PHYSICAL EXAMINATION Pt. Name/Age/: Dora Arellano 86 y.o. 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 amLODIPine (NORVASC) 5 mg tablet Take 5 mg by mouth daily (after dinner). atenolol (TENORMIN) 25 mg tablet Take 25 mg by mouth Daily. Takes 50 mg if HR is 100 or hig her otherwise takes 25 mg oral daily atorvaSTATin (LIPITOR) 20 mg tablet Take 20 mg by mouth nightly. warfarin (COUMADIN) 3 MG tablet Take 3 mg by mouth daily (after dinner). Current Facility-Administered Medications Medication Dose Route Frequency Provider Last Rate Last Dose [START ON 12/19/2016] amiodarone (PACERONE) tablet 200 mg 200 mg Oral Daily Gamal maxwell MD [START ON 12/19/2016] amLODIPine (NORVASC) tablet 5 mg 5 mg Oral Daily after dinner Shai Serrano MD [START ON 12/19/2016] atenolol (TENORMIN) tablet 25 mg 25 mg Oral Daily Gamal Serrano MD atorvaSTATin (LIPITOR) tablet 20 mg 20 mg Oral Nightly Gamal Serrano MD docusate sodium (COLACE) capsule 100 mg 100 mg Oral BID PRN Gamal Serrano MD fentaNYL (PF) injection 25-50 mcg 25-50 mcg Intravenous Q1H PRN Gamal Serrano MD 5 0 mcg at 12/18/16 220 HYDROcodone-acetaminophen (NORCO) 5-325 mg per tablet 1-2 tablet 1-2 tablet Oral Q4H P RN Gamal Serrano MD 1 tablet at 12/18/16 220 ondansetron (ZOFRAN ODT) disintegrating tablet 4 mg 4 mg Oral Q6H PRN Gamal Serrano MD ondansetron (ZOFRAN) injection 4 mg 4 mg Intravenous Q6H PRN Gamal Serrano MD polyethylene glycol (MIRALAX) powder 17 g 17 g Oral Daily PRN Gamal Serrano MD senna (SENOKOT) tablet 8.6 mg 8.6 mg Oral BID PRN Gamal Serrano MD Family History: Family History Problem Relation Age of Onset Heart attack Father Social History: Social History Social History Marital status: Spouse name: N/A Number of children: N/A Years of education: N/A Occupational History Not on file. Social History Main Topics Smoking status: Not on file Smokeless tobacco: Not on file Alcohol use 0.6 oz/week 1 Cans of beer per week Drug use: No Sexual activity: Not on file Other Topics Concern Not on file Social History Narrative No narrative on file Exam: Vital Signs on Arrival: Temp: 36.2 C (97.2 F) BP: 113/66 Pulse: 97 Resp: 20 SpO2: 95 % on Most Recent Vital Signs: Temp: 36.2 C (97.2 F) BP: 113/66 Pulse: 80 Resp: 20 SpO2: 95 % on Admission Weight: Weight: 78 kg (172 lb) BMI: Body mass index is 25.4 kg/m. Physical Examination: General: Alert, oriented, no acute distress HEENT: Normocephalic, atraumatic Cardiovascular: Irregularly irregular Respiratory: Clear to auscultation bilaterally Abdomen: Soft, non-tender, non-distended, positive bowel sounds Extremities: Right lower limb with moderate thigh swelling but compartments are soft. Ther e is a superficial skin tear to the distal medial thigh without bleeding. There is moderate pitting edema to the right lower leg. Left thigh is not as swollen as the right and there is only trace edema of the lower leg. Neurovascular exam shows intact sensation to light touch on dorsal and plantar feet bilater ally. He can flex and extend the feet and toes bilaterally. There is a trace dorsalis pedis pulse bilaterally. Cap refill is 3 seconds in the toes bilaterally. Diagnostic Studies: Radiographs show a right midshaft femur fracture with mild comminution and a left peritrochanteric fracture with reverse obliquity. 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 Soledad n is to get his anticoagulation reversed and take him to surgery tomorrow for IM fixation of both of these fractures. I have explained the nature of his fractures and the proposed surg ical treatments and risks involved. He gives informed consent in writing. I expect this patient will be hospitalized for greater than 2-midnights and expect the post -hospital plan to be discharge to a skilled or intermediate care nursing facility. Perfecto Mancuso MD DATE/TIME: 12/18/2016 22:21 Gamal Redd MD - 12/18/2016 9:43 PM PDT [facility] HOSPITALIST HISTORY & PHYSICAL Patient: Dora Arellano : 1930: Age: 86 y.o. MedRec: [id number] PCP: Taiwo Lee MD Admission date: 12/18/2016 Hospital day #: 0 Physician author: Gamal Serrano MD Today: 12/18/2016 CHIEF COMPLAINT: Sent from [facility] because of bilateral femur fractures after falling at home on carpet HISTORY OF PRESENT ILLNESS: This is a 86 y.o. male with a history of atrial fibrillation, however looks like atrial flu tter on the [facility] EKG, is on Coumadin. He used to take Lasix and potassium but h e's off both of those medicines, he says the Lasix made him too dizzy. He takes is atenolol 25 mg daily but if his heart rate is 100 or higher he'll take 50 mg daily. He follows with a oven operator in [place] at [facility]. Patient says he has a walker and a cane, usually uses his cane. Today he lost balance and fell backwards breaking both femurs and was seen in [facility] and sent to [facility] and I spoke with Dr. Ryan Pop who will see him in consult as he'll need femur surgery. Jonny robbins also had multiple skin tears that were not addressed at [facility] but most of itzel hem were dressed by the time I saw patient here at . Thes e were skin tears on his left arm, right arm, right leg. Patient says he did not pass out, no chest pain or chest pressure. No headache. No hip pa in but both femurs hurt. Denies arthritis. He says he has an incurable skin condition follows with sealer sander Dr. Anuja Kaminski. He uses what sounds like Kenalog cream. He has a remote history of mycoses fungoides diagnose d in [facility] probably 15 or 20 years ago. Habits negative except for occasional beer He has the chronic body rash. He had angioplasty to a coronary artery 12-15 years ago, not a stent. He's had peripheral artery stent and surgery. He served in the [employer]. He has severe hearing loss, he says his is blind. 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 SOCIAL HISTORY: REVIEW OF SYSTEMS: A complete 10 system ROS was done and recorded in the HPI (Constitutional, Eye, ENT, Cardia c, Respiratory, GI, , Musculoskeletal, Skin & Breast, Neurological) with the remainder neg ative. Further notations, if any, will be noted below. (eula) HOME MEDICATIONS: Current Discharge Medication List CONTINUE these medications which have NOT CHANGED Details amiodarone (PACERONE) 200 mg tablet Take 200 mg by mouth Daily. amLODIPine (NORVASC) 5 mg tablet Take 5 mg by mouth daily (after dinner). atenolol (TENORMIN) 25 mg tablet Take 25 mg by mouth Daily. Takes 50 mg if HR is 100 or hig her otherwise takes 25 mg oral daily atorvaSTATin (LIPITOR) 20 mg tablet Take 20 mg by mouth nightly. warfarin (COUMADIN) 3 MG tablet Take 3 mg by mouth daily (after dinner). PT REPORTED TAKING NOT TAKING Medication Sig Last Dose Dispense Doc. Provider amiodarone (PACERONE) 200 mg tablet Take 200 mg by mouth Daily. Historical Provider, amLODIPine (NORVASC) 5 mg tablet Take 5 mg by mouth daily (after dinner). Historical Pro viderMD atenolol (TENORMIN) 25 mg tablet Take 25 mg by mouth Daily. Takes 50 mg if HR is 100 or hi gher otherwise takes 25 mg oral daily Historical Provider, atorvaSTATin (LIPITOR) 20 mg tablet Take 20 mg by mouth nightly. Historical Provider, warfarin (COUMADIN) 3 MG tablet Take 3 mg by mouth daily (after dinner). Historical Prov iderMD Note neither list of medicines will show if patient is taking differently Note that the Taking not Taking list will not show meds that need to be reviewed (dot medstakingnottaking hmeds2 hmeds ptarxtaking) ALLERGIES: Allergies Allergen Reactions Lisinopril Olmesartan Penicillins Lips swell eyes swell shut and pruritis VITAL SIGNS: Temp: 36.2 C (97.2 F), Pulse: 80, Resp: 20, BP: 113/66, SpO2 95 % on nasal cannula at f low rate 2L/min Temp Min: 36.2 C (97.2 F) Max: 36.2 C (97.2 F) PHYSICAL EXAMINATION: Constitutional Alert NAD Eye Pupils ER No conjunctivitis nor scleral icterus ENT Unremarkable oral ear and nose except hearing loss Neck No adenopathy, thyromegaly nor masses Lymph node exam Negative in the following areas: neck and epitrochlear Cardiac Car Irreg LE edema mild Lung Auscultation clear Respiratory effort not labored Percussion not done Abdomen + BS, Soft, NT, no HSM nor masses Psych Mood and affect normal Neuro Alert fluent and cooperative (dot meyexam) DIAGNOSTIC STUDIES: Hematology and anemia No results for input(s): WBC, HGB, HCT, PLT, NEUPCT, MONPCT in the last 168 hours. Invalid input(s): EOSPCT, NEUABC No results for input(s): PROTIME, INR, PTT in the last 168 hours. No results for input(s): IRON, TIBC, PCTSAT, FERRITIN, TSH, [id number], FOLATE in the last 168 hours. Inflammatory markers No results for input(s): LACTATE, PROCALCITONI, CRP, ESR in the last 168 hours. Chemistry No results for input(s): GLU, NA, K, CL, CO2, ANIONGAP, BUN, CREA, GFRNONAA, CALCIUM, ALBUM IN, TOTALPROTEIN, BILITOT, ALKPHOS, ALT, AST in the last 168 hours. No results for input(s): MG, PHOS in the last 168 hours. No results for input(s): AMYLASE, LIPASE in the last 168 hours. No results for input(s): TRIG, CHOL, HDL, LDL in the last 168 hours. No results for input(s): AMMONIA in the last 168 hours. Cardiology & Digoxin No results for input(s): TROPONIN, CK, CKMB, BNP, DIGOXIN in the last 168 hours. Invalid input(s): CKTOTAL ABG No results for input(s): PHART, PO2ART, MCT3DZC, TVT9XTY, BEART, M2BNFDSH in the last 168 h ours. No results for input(s): SPECSOURCE, PHPOCB, PCO2, PO2, HCO3, TCO2, BEART, [id number] in the last 168 hours. Drug of overdose and abuse No results for input(s): ALCOHOL, ACTMN, SALICYLATE in the last 168 hours. No results for input(s): AMPHEQUAL, BARBITURATE, BENZSCR, CANNIBSCR, AMPHETAMINE, METHADSCR , OPIATESCR in the last 168 hours. Urinalysis No results for input(s): GLUCOSEU, WBCUA, RBCUA, SQUAMEPIUA, BACTERIAUA, CULTIF in the last 168 hours. Micro results (more choices using dotmicro) Microbiology Results (72 hrs) No results found for the last 72 hours. Radiology results (more choices using dotrisresults) No results found. 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 (meynotebar) Code Status DNR DNI per patient he understands temporary full code for allowing sgy Medical Decision Maker DVT Prophylaxis Coumadin with INR goal 2-3 Need to restart post op (meyaddendum tdnorefesh nownorefresh) PLAN: Admit NPO post MN EKG Morning labs Dr Mancuso I discussed risks of transfusing blood products including HIV, hepatitis, infection, fever, allergy, transfusion reaction, TACO (volume overload), TRALI and TRIM (transfusion related immuno-modulation). Also discussed benefits and alternatives. Patient consents to transfusio n. (dot meyaddendum tdnorefesh nownorefresh) (dot meytime meycritical) [facility] Documentation I expect this patient will be hospitalized for greater than 2-midnights and expect the post -hospital plan to be determined once additional information is obtained. Electronically signed by: Gamal Serrano MD 12/18/2016 21:53 [facility] (meyaddendum tdnorefesh nownorefresh) Portions of this chart may have been created with [employer] voice recognition software. Occasi onal wrong-word or sound-alike substitutions may have occurred due to the inherent ness itations of voice recognition software. Please read the chart carefully and recognize, using context, where these substitutions have occurred documented in this en counter Consult Notes Law Brush MD - 12/31/2016 12:37 PM PDT REHABILITATION MEDICINE CONSULTATION Patient Identification Dora Arellano is a 86 y.o. male. : 1930 Admit Date: 12/18/2016 Attending Provider: Radha Hoyt MD Primary Care Physician: Taiwo Lee MD Admitting Diagnosis: Bilateral Femur Fractures r midshaft femur fracture L femur fx Chief Complaint/Identification: Dora Arellano is a 86 y.o. male who was admitted to [facility] on 7 for Bilateral Femur Fractures r midshaft femur fracture L femur fx. PM&R consultation was requested by Dr. Radha Hoyt MD to provide an opinion regarding Dora Arellano rehabilitation needs. History of Present Illness: Mr. Arellano is a 86-year-old man with a history of a fib admitted 12/18/16 after a GLF resulti ng in right mid-shaft femoral and left intertrochanteric femur fractures resulting in impair ed mobility, transfers, and self-care. Patient reports that over the past few years he has had a decline in balance and has sustai talha multiple falls. On 12/18 he stumbled backwards when walking and home and after trying to recover by taking a few steps back he landed hard on his pelvis. He noted immediate pain, so his called EMS. Patient lives in [place], [place] and was initially taken to [facility] in [place] but there was no on-call ortho so he was transferred to [facility] for def initive treatment. On 12/19 he was taken to the OR by Dr. Mancuso for bilateral ORIF's. Admission has been complicated by hemorragic shock, now s/p IVF and RBC's, respiratory fail ure 2/2 volume overload 2/2 likely DHF. Patient has been working with therapies and pain has been relatively well controlled, and a re recommending IPR admission. The rest of the patient s hospital course is organized by problem list/systems: Review of Systems: Constitutional - denies fevers/chills, denies fatigue Eyes - denies diplopia, denies double vision ENT denies sore throat, denies swallowing difficulty Card - h/o a. Fib, ?diastolic heart failure Pulm - denies dyspnea, cough Abd - denies n/v, denies diarrhea/constipation Vascular - denies swelling, denies cold extremities Neuro - Please see the review of systems discussed above in the history of present illness. MSK - Please see the review of systems discussed above in the history of present illness. 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 Urinary retention PSx: Past Surgical History: Procedure Laterality Date CATARACT REMOVAL WITH IMPLANT Bilateral CORONARY ANGIOPLASTY without stent [facility] Approx [id number] Femoral artery bypass and Hx of stent FEMUR FRACTURE SURGERY Right 12/19/2016 Procedure: ORIF IM RODDING FEMORAL ANTEGRADE; Surgeon: Perfecto Mancuso MD; Location: [facility] MAIN OR FEMUR FRACTURE SURGERY Left 12/19/2016 Procedure: ORIF IM RODDING FEMORAL TROCHANTERIC NAIL; Surgeon: Perfecto Mancuso MD; Locati on: [facility] MAIN OR Right CEA Meds During Hospitalization [...] Gamal Serrano MD 200 mg at 0 12/31/16 0909 atorvaSTATin (LIPITOR) tablet 20 mg 20 mg Oral Nightly Gamal Serrano MD 20 mg at 0 12/30/162020 docusate sodium (COLACE) capsule 100 mg 100 mg Oral BID PRN Gamal Serrano MD 100 m g at 12/26/16 0908 heparin 5,000 units/mL injection 5,000 Units 5,000 Units Subcutaneous 2 times per day Radha Hoyt MD 5,000 Units at 12/31/16 0909 metoprolol tartrate (LOPRESSOR) tablet 50 mg 50 mg Oral BID Radha Hoyt MD 50 mg at 12/31/16 0908 midodrine (PROAMATINE) tablet 10 mg 10 mg Oral TID Early Radha Hoyt MD 10 mg at 12/31/16 1159 norepinephrine in NS (LEVOPHED) 16 mcg/mL infusion 1-30 mcg/min Intravenous Titrated V debi Hendrix MD Stopped at 12/24/16 1111 oxyCODONE (ROXICODONE) tablet 5-10 mg 5-10 mg Oral Q4H PRN Gamal Serrano MD 5 mg a t 12/30/16 1432 polyethylene glycol (MIRALAX) powder 17 g 17 g Oral Daily PRN Gamal Serrano MD 17 g at 12/24/16 0750 senna (SENOKOT) tablet 8.6 mg 8.6 mg Oral BID PRN Gamal Serrano MD 8.6 mg at 12/25 simethicone (MYLICON) chewable tablet 80 mg 80 mg Oral 4x Daily PRN Radha Hoyt MD 80 mg at 12/27/162100 Allergies: Allergies Allergen Reactions Lisinopril Not Noted [...] Narrative No narrative on file Lives in [place] with his in a 8STE home. is legally blind. Patient plans on purchasing an outdoor lift so that he can enter his home without having to ascend stairs. Cultural needs: N/A Equipment needs: TBD Funding: medicare Functional History: PRIOR FUNCTION: Patient was independent in mobility, self-care, swallowing, bladder/bowel, communication, cognition, and was driving. CURRENT FUNCTION: ADLs - dependent Med - Max A Gait - PT note pending from today, was able to do one step in parallel bars with significan t assistance. Labs: Recent Results (from the past 48 hour(s)) Basic Metabolic Panel Collection Time: 12/30/16 5:18 Result Value Ref Range NA 136 136 [...] - 10.5 mg/dL BUN/CREA 19.3 Protime INR Collection Time: 12/30/16 5:18 Result Value Ref Range PROTIME 15.1 (H) 11.3 - 13.9 seconds INR 1.16 (H) 0.90 - 1.10 CBC with Differential Collection Time: 12/30/16 5:18 Result Value Ref Range WBC 8.8 4.0 [...] Absolute Basophils 0.10 0.00 - 0.10 K/uL Protime INR Collection Time: 12/31/16 6:21 Result Value Ref Range PROTIME 14.7 (H) 11.3 - 13.9 seconds INR 1.12 (H) 0.90 - 1.10 CBC with Differential Collection Time: 12/31/16 6:21 Result Value Ref Range WBC 9.9 4.0 - 11.0 K/uL RBC 3.59 (L) 4.30 - 5.70 M/uL Hgb 10.6 (L) 13.5 - 18.0 g/dL Hct 32.1 (L) 40.0 - 51.0 % MCV 89.4 83.0 - 101.0 fL MCH 29.5 28.0 - 35.0 pg MCHC 33.0 32.0 - 36.0 g/dL RDW-CV 16.0 (H) <15.0 % Platelet Count 389 140 - 440 K/uL MPV 8.5 fL % Neutrophils 77.3 45.0 - 82.0 % % Lymphocytes 7.1 (L) 20.0 - 45.0 % % Monocytes 9.6 4.0 - 12.0 % % Eosinophils 5.4 (H) 0.0 - 5.0 % % Basophils 0.6 0.0 - 1.0 % Absolute Neutrophils 7.70 1.80 - 8.50 K/uL Absolute Lymphocytes 0.70 0.60 - 3.20 K/uL Absolute Monocytes 1.00 0.00 - 1.00 K/uL Absolute Eosinophils 0.50 (H) 0.00 - 0.40 K/uL Absolute Basophils 0.10 0.00 - 0.10 K/uL Comprehensive Metabolic Panel Collection Time: 12/31/16 6:21 Result Value Ref Range NA 137 136 - 149 mmol/L K 3.5 3.5 - 5.1 mmol/L CL 100 98 - 109 mmol/L CO2 29 24 - 31 mmol/L ANION GAP 8 3 - 16 mmol/L GLUCOSE 94 70 - 109 mg/dL BUN 22 (H) 7 - 18 mg/dL Creatinine, Serum/Plasma 1.19 0.60 - 1.30 mg/dL eGFR if not 58 (L) >=60 mL/min/1.73m2 CALCIUM 8.6 8.3 - 10.5 mg/dL ALBUMIN 2.3 (L) 3.2 - 5.0 g/dL BILIRUBIN TOTAL 1.2 0.1 - 1.5 mg/dL Total protein 5.1 (L) 6.0 - 7.8 g/dL AST 50 (H) 10 - 42 U/L ALT 55 (H) 6 - 45 U/L ALK PHOS 122 (H) 40 - 110 U/L GLOBULIN 2.8 2.1 - 3.8 g/dL Albumin/Globulin ratio 0.8 0.8 - 2.0 BUN/CREA 18.5 Imaging: Recent Results (from the past 360 hour(s)) XR Femur Right 2+Vw Narrative External films for comparison only - no result from [facility]. XR Femur Left 2+Vw Narrative External films for comparison only - no result from [facility]. XR Chest PA or AP Narrative External films for comparison only - no result from [facility]. FL C-Arm Stats No Charge Narrative No [...] Iliofemoral vascular calcification is present. Samy project lateral to the hip and [...] Kennedy MD Electronically signed: 12/30/2016 9:46 PM Assessment: Mr. Arellano is a 86-year-old man with a history of a fib admitted 12/18/16 after a GLF resulti ng in right mid-shaft femoral and left intertrochanteric femur fractures resulting in impair ed mobility, transfers, and self-care. Pt now has deficits in coordination, ambulation, str ength, ADLs, and IADLs. Patient tolerated therapies much better today and is ready for [facility] admission. He is safe to continue therapies but is medically complex requiring 24hr nursing and MD care. Thank you for the opportunity to be involved in the care of this patient. Please feel free to call with questions or concerns. I will continue to follow with you regarding rehabilitat ion needs. -- -- -- -- -- -- -- -- -- -- -- -- -- -- -- -- -- -- -- -- ---- -- -- -- -- -- -- -- -- -- -- -- -- -- -- -- -- -- -- -- -- Supplemental Rehab Info: Primary Diagnosis: Orthopedic Disorders 08.11 Status post unilateral hip fracture and 08.2 Status post femur (shaft) fracture Onset: 12/18/2016 Impairments include: motor weakness Comorbidities: (current medical problems) Patient Active Problem List Diagnosis Atrial flutter Femur fracture, left Femur fracture, right Anticoagulant long-term use Rehab Problem list: Impaired mobility Impaired ADLs Impaired IADLs Impaired avocation Rehab: Patient has demonstrated he can participate in 3 hours of therapy per day and demonstrates appropriate carryover, tand is ready for inpatient rehabilitation admission. Patient is also medically stable with no further medical/surgical interventions planned, but has complex re hab needs requiring intensive therapy intervention. I anticipate that the patient will meet the following criteria: 1) able to make a meaningful amount of functional progress in a reasonable amount of time. 2) The patient is willing and able to participate in rehabilitation therapies based on prog ress during acute care. 3) The patient will require 24 hours supervision from rehabilitation physicians and nursing . 4) Rehabilitation goals cannot be achieved at a lower level of care. 5) Patient requires a minimum of the 3 hours of intensive therapy per day. Rehabilitation medicine physician for daily monitoring of care, 24 hour availability for [place] medical issues, medication management, and therapeutic and diagnostic assessments. 24 hour rehabilitation nursing 7 days per week for: management/teaching of medications, bow el/bladder routine, skin care. PT for 90 minutes per day 5-6 days/week OT for 90 minutes per day 5-6 days/week SW for discharge planning, community resources, and family support. Estimated length of stay is 21 days and pt is planning to discharge home with family. Current barriers to inpatient rehabilitation include: none Goals/Expected level of improvement: mod I with ambulation, mod I with ADLs, supervision-mi n A with iADLs, mod I for toileting, and supervision with community access. Potential Clinical Complications: fall, DVT, PNA, IN Signed: Law Brush MD DATE/TIME: 12/31/2016 12:37 Portions of this chart may have been created with [employer] voice recognition software. Occas ional wrong-word or sound-alike substitutions may have occurred due to the inherent li mitations of voice recognition software. Please read the chart carefully and recognize, nguyen holguin context, where these substitutions have occurred unham, Azra Moncada RN - 12/31/2016 7:59 AM PDTOrder received for acute rehab consult. Chart to be reviewed be fore making a recommendation on rehab services; IPR will follow progress. Thank you for this referral. Azra Payan, RN CRRN 12/31/2016 7:59 avis, Sheila Marrero RN - 12/21/2016 12:46 PM PDTFollowing INS standards of care x 2 sticks; 5 fr BARD triple-lumen P ICC inserted. Advanced to SVC. All lumens draw brisk BRB and flush easily with NS. OK to use - recommend transferring peripherally infusing levophed line to PICC line candace. Report to A SANDY mar who continues care. documented in this encounter Miscellaneous Notes Plan of Care - Carine Whitten RN - 12/31/2016 3:07 PM PDTProblem: Patient Care Overview (Ad ult) Goal: Care Team Goals & Evaluation PROBLEM-RELATED GOALS: 1. Geovany will maintain adequate oxygenation via oximetry with SpO2 >90 by 12/31/2016. 2. Geovany will maintain CMS intact by 12/29/2016. 3. Geovany will report satisfactory pain control at a level less than 4/10 on a rating scale o f 0 to 10 12/29/2016. 4. Geovany will be free from falls/injuries by 12/29/2016. 5. Geovany will be min A for basic transfers and gait to chair beside bed with FWW by 01/04/20 17. 6. Geovany will maintain a patent airway and effective airway clearance by 12/28/2016. 7. Geovany will meet 75% of predicted incentive spirometer goal of 2250. 8. Geovany will eat >75% of meals by 01/02/2017 STRATEGY TO ACHIEVE GOALS: 1. Monitor saturations via oximetry and titrate to order as indicated. 2. Monitor CMS as ordered and encourage pt to report any changes 3. Monitor pain and medicate as needed 4. Keep call light within reach at all times and encourage use 5. Staff to assist with transfers and gait as needed. 6. Perform airway clearance using vibratory PEP therapy. 7. Instruct patient how use of Incentive Spirometry and deep breath and cough. Nursing and Respiratory to work together to have patient use every hour while awake. Respiratory to 8. monitor progress 4 times daily until 75% goal met then turn over to nursing. 8. Will f/u to help with menu and supplement options to help him meet assessed energy and p rotein needs Outcome: Improving Goal Evaluation: alert and oriented x 4 2 person assist with connor lift denies pain medication drsgs to hips intact cms intact has 1+ ble edema cont to monitor pvr's with voids bm today decreased appet ite distinction in to see pt calls aprop for assistance lan of Elysia - Samira Daniels RDN - 12/31/2016 2:02 PM PDTFormatting of this note might be different from the or iginal. Problem: Patient Care Overview (Adult) Goal: Care Team Goals & Evaluation PROBLEM-RELATED GOALS: 1. Geovany will maintain adequate oxygenation via oximetry with SpO2 >90 by 12/31/2016. 2. Geovany will maintain CMS intact by 12/29/2016. 3. Geovayn will report satisfactory pain control at a level less than 4/10 on a rating scale o f 0 to 10 12/29/2016. 4. Geovany will be free from falls/injuries by 12/29/2016. 5. Geovany will be min A for basic transfers and gait to chair beside bed with FWW by 01/04/20 17. 6. Geovany will maintain a patent airway and effective airway clearance by 12/28/2016. 7. Geovany will meet 75% of predicted incentive spirometer goal of 2250. 8. Geovany will eat >75% of meals by 01/02/2017 STRATEGY TO ACHIEVE GOALS: 1. Monitor saturations via oximetry and titrate to order as indicated. 2. Monitor CMS as ordered and encourage pt to report any changes 3. Monitor pain and medicate as needed 4. Keep call light within reach at all times and encourage use 5. Staff to assist with transfers and gait as needed. 6. Perform airway clearance using vibratory PEP therapy. 7. Instruct patient how use of Incentive Spirometry and deep breath and cough. Nursing and Respiratory to work together to have patient use every hour while awake. Respiratory to 8. monitor progress 4 times daily until 75% goal met then turn over to nursing. 8. Will f/u to help with menu and supplement options to help him meet assessed energy and p rotein needs Outcome: Unchanged Goal Evaluation: NUTRITION THERAPY NOTE Summary: Pt admitted following a fall resulting in bilateral femur fractures. Following s urgery on 12/19 his overall oral intake has been poor, now eating 0-25% of his meals. He rep orts a poor appetite and dislikes the food. He does take the healthshakes which are provide d tid. Will f/u daily for menu options to help him meet >75% of his assessed energy and pro tein needs. Estimated Energy and Protein Needs: (based on 80 kg) Kcal needs: 3912-1696 Kcals/day Protein needs:80-100 grams of protein/day Fluid goal:8749-8848 cc fluid per day Nutrition Plan of Care: Nutrition Diagnosis: Inadequate protein-energy intake related to poor appetite and not lik ing the food as evidenced by pt comments and I/O showing intake 0-25% of general diet Interventions: 1. Help pt with menu selections process 2. Continue with supplements tid Nutrition Goals: 1. Improved intake to meet >75% of his assessed energy and protein needs 2. Stable weight Monitor: 1. Intake 2. Nutrition related changes F/u in 2 days. Available as needed, ext [phone] Assessment: Diet Order: For your reference, current, active order is: Diet general; Effective Now Recent Labs 12/31/16 0621 12/30/16 0518 12/29/16 0344 NA 137 136 137 K 3.5 3.7 3.4* CL 100 100 97* BUN 22* 22* 21* CREA 1.19 1.14 1.23 ALBUMIN 2.3* -- 2.2* MG -- -- 1.5* Anthropometrics: Height: 175.3 cm (5' 9") Weight: 81.9 kg (180 lb 8.9 oz) Wt Readings from Last 3 Encounters: 12/31/16 81.9 kg (180 lb 8.9 oz) Body mass index is 26.66 kg/m. Electronically Signed by: WILMAR DANIELS RDN, CDE 12/31/2016 13:51 reatment Plan - Carine Swenson RN - 12/31/2016 1:54 PM [facility] [place] [facility] [place] noted new skin tear on the inside of left arm mepilex drsg applied voided 200cc urine and had a bm pvr 343 aram darek back to bed via connor lift lan of Care - Law Rollins PT - 12/31/2016 11:55 AM PDT Problem: Patient Care Overview (Adult) Goal: Care Team Goals & Evaluation PROBLEM-RELATED GOALS: 1. Geovany will maintain adequate oxygenation via oximetry with SpO2 >90 by 12/31/2016. 2. Geovany will maintain CMS intact by 12/29/2016. 3. Geovany will report satisfactory pain control at a level less than 4/10 on a rating scale o f 0 to 10 12/29/2016. 4. Geovany will be free from falls/injuries by 12/29/2016. 5. Geovany will be min A for basic transfers and gait to chair beside bed with FWW by 01/04/20 17. 6. Geovany will maintain a patent airway and effective airway clearance by 12/28/2016. 7. Geovany will meet 75% of predicted incentive spirometer goal of 2250. STRATEGY TO ACHIEVE GOALS: 1. Monitor saturations via oximetry and titrate to order as indicated. 2. Monitor CMS as ordered and encourage pt to report any changes 3. Monitor pain and medicate as needed 4. Keep call light within reach at all times and encourage use 5. Staff to assist with transfers and gait as needed. 6. Perform airway clearance using vibratory PEP therapy. 7. Instruct patient how use of Incentive Spirometry and deep breath and cough. Nursing and Respiratory to work together to have patient use every hour while awake. Respiratory to 8. monitor progress 4 times daily until 75% goal met then turn over to nursing. Outcome: Improving Physical Therapy Plan of Care Treatment Note Summary: Pt seen for blocked practice for stepping and stair training to see if pt could t olerate working toward stairs per MD and window caser request to see if pt might be able to even tually perform stairs on his own. Blocked practice with sit to systems administration analyst II bars and step ups stariting with 2 person assist at hips for 2 inch step x 2 reps, then 4 inch step x 2 reps with alld 2 reps alternating R and L leg for leading limb. pt struggling but voices determin ation to go up and down steps wtih reciprocal pattern eventually. pt reporting it was hard, but easier than he anticipated it would be. Pt up in WC after tx, handed off to nursing. pt will benefit from PT to increase BLE strength and endurange and balance. Physical Therapy Discharge Recommendations are: Recommended discharge disposition: inpatient rehabilitation facility Post discharge physical therapy recommendation: minimum 5 days of therapy/week, will benef it from structured setting, able to tolerate 3 hours of therapy/day, pt is motivated partici pant Equipment Recommendations: 2 wheeled walker (FWW), wheelchair, wheelchair cushion Planned Interventions: balance training, bed mobility training, gait training, home exerci se program, patient/family education, orthotic fitting/training, transfer training, wheelcha ir management/propulsion training, ROM (Range of Motion), stair training, strengthening Recommended Frequency: daily Patient Status/Goals: Reflects last filed data and may be from multiple contributors. Gait 2 steps in II bars x 2 reps with 2 person assist, body wt supported on II bars via hands Level of [place]: maximal assist (25% patient effort), 2 person assist required Distance (feet): 2 Transfers bed to chair via stand pivot with 2 person assist for squat pivot tech for partial stand at max A x 2 Bed-Chair, Level of [place]: maximal assist (25% patient effort), 2 person assist requ ired Chair-Bed, Level of [place]: 2 person assist required, maximal assist (25% patient eff ort) Oes-Igcsm-Vaz, Assistive Device: wheelchair Sit-Stand, Level of [place]: 2 person assist required Stand-Sit, Level of [place]: 2 person assist required, maximal assist (25% patient eff ort) Cax-[id number]-Elq, Assistive Device: wheelchair (II bars) Safety Issues: sequencing ability decreased, weight-shifting ability decreased Impairments: pain, strength decreased, impaired balance, postural control impaired Bed Mobility 2 person mod assist drawsheet, however patient demonstrates antigravity movements with lowe r teres and upper extremities. Assistive Device: HOB elevated, draw sheet Scoot/Bridge, Level of [place]: moderate assist (50% patient effort), 2 person assist required, verbal cues required, tactile cues required Supine to Sit, Level of [place]: minimal assist (75% patient effort), verbal cues requ ired, 2 person assist required Sit to Supine, Level of [place]: moderate assist (50% patient effort), verbal cues req uired, tactile cues required, 2 person assist required Safety Issues: decreased use of legs for bridging/pushing, impaired trunk control for bed m obility Impairments: decreased flexibility, strength decreased, impaired balance, pain Functional Endurance Fair, short rests required, pt reports he is determined to keep improving ROM BLEs unable to move actively through full range, pt reports pain in knees prevents movement at this time Strength Unable to formally assess BLE mms however he is able to support full body weight against gr avity x 10 seconds (.) PT Goal Review Date Flowsheet Row Most Recent Value STG Review Date 01/03/17 at 12/27/2016 1450 All Bed Mobility Goal Flowsheet Row Most Recent Value STG Status new at 12/31/2016 1155 STG [place] Level minimum assist (75% patient effort) at 12/31/2016 1155 Roll Left/Right Goal Flowsheet Row Most Recent Value STG Status new at 12/31/2016 1155 STG [place] Level minimum assist (75% patient effort) at 12/31/2016 1155 Scoot/Bridge Goal Flowsheet Row Most Recent Value STG Status progressing at 12/31/2016 1155 STG [place] Level stand by assist at 12/31/2016 1155 Njjzpg-Rvc-Ufekqg Goal Flowsheet Row Most Recent Value STG Status progressing at 12/31/2016 1155 STG [place] Level stand by assist at 12/20/2016 0915 Arcfmgpjf-Qhj-Kokxxsdby Goal Flowsheet Row Most Recent Value STG Status continued at 12/31/2016 1155 STG [place] Level stand by assist at 12/20/2016 0915 STG Assistive Device bed rails at 12/20/2016 0915 All Transfers Goal Flowsheet Row Most Recent Value STG Status progressing at 12/31/2016 1155 STG [place] Level stand by assist, 1 person + 1 person to manage equipment at 017 1155 STG Assistive Device other (see Comments) [Sanam Travis] at 12/25/2016 1159 STG Comments Using Sanam Bearbrianda at 12/25/2016 1159 Gait Goal Flowsheet Row Most Recent Value STG Status continued at 12/31/2016 1155 STG [place] Level stand by assist at 12/20/2016 0915 STG Assistive Device 2 wheeled walker (FWW) at 12/20/2016 0915 STG Distance (feet) 10 at 12/20/2016 0915 Stair Goal Flowsheet Row Most Recent Value STG Status revised, new at 12/31/2016 1155 STG [place] Level minimum assist (75% patient effort) at 12/31/2016 1155 STG Assistive Device 2 rails at 12/31/2016 1155 STG Number of Stairs 8 at 12/31/2016 1155 Wheelchair Goal Flowsheet Row Most Recent Value STG Status new at 12/31/2016 1155 STG pt self propell manual WC 50 ft supervised with BUEs at 12/31/2016 1155 Additional Goal #1 PT Flowsheet Row Most Recent Value STG Status progressing at 12/31/2016 1155 STG Pt will tolerate standing at Sanam Travis x 1min w/ supervision only at 12/25/2016 1159 LTG Status progressing at 12/26/2016 1402 Electronically signed by: Law Rollins, PT, 12/31/2016 13:11 lan of Care - P Darling murphy RN - 12/31/2016 5:18 AM PDTProblem: Patient Care Overview (Adult) Goal: Care Team Goals & Evaluation PROBLEM-RELATED GOALS: 1. Geovany will maintain adequate oxygenation via oximetry with SpO2 >90 by 12/31/2016. 2. Geovany will maintain CMS intact by 12/29/2016. 3. Geovany will report satisfactory pain control at a level less than 4/10 on a rating scale o f 0 to 10 12/29/2016. 4. Geovany will be free from falls/injuries by 12/29/2016. 5. Geovany will be min A for basic transfers and gait to chair beside bed with FWW by 01/04/20 17. 6. Geovany will maintain a patent airway and effective airway clearance by 12/28/2016. 7. Geovany will meet 75% of predicted incentive spirometer goal of 2250. STRATEGY TO ACHIEVE GOALS: 1. Monitor saturations via oximetry and titrate to order as indicated. 2. Monitor CMS as ordered and encourage pt to report any changes 3. Monitor pain and medicate as needed 4. Keep call light within reach at all times and encourage use 5. Staff to assist with transfers and gait as needed. 6. Perform airway clearance using vibratory PEP therapy. 7. Instruct patient how use of Incentive Spirometry and deep breath and cough. Nursing and Respiratory to work together to have patient use every hour while awake. Respiratory to 8. monitor progress 4 times daily until 75% goal met then turn over to nursing. Outcome: Improving Goal Evaluation: Geovany continues to be on 1 L/NC, O2 sats adequate. Lung sounds diminished. Denies numbness/t ingling, dorsal pedis pulse +1, cap refill slow, feet warm. +1 edema right ankle, +2 edema l eft ankle. Legs floated on pillows. Dry feet, applied ceve cream HS. Assisted with repositio [place] Q2H. Reports experiences pain with movement, denies pain medication. Was unable to void , PVR 552, MD notified. Ordered straight cath, output 500 cc lyric urine. HR irregular. VSS. Calls appropriately. No falls/injury this shift. Appeared to sleep well between cares. lan of Care - Heri rBavo, CELLO TEACHER - 12/30/2016 5:44 PM PDTFormatting of this note might be different from the or iginal. Problem: Patient Care Overview (Adult) Goal: Care Team Goals & Evaluation PROBLEM-RELATED GOALS: 1. Geovany will maintain adequate oxygenation via oximetry with SpO2 >90 by 12/31/2016. 2. Geovany will maintain CMS intact by 12/29/2016. 3. Geovany will report satisfactory pain control at a level less than 4/10 on a rating scale o f 0 to 10 12/29/2016. 4. Geovany will be free from falls/injuries by 12/29/2016. 5. Geovany will be min A for basic transfers and gait to chair beside bed with FWW by 01/04/20 17. 6. Geovany will maintain a patent airway and effective airway clearance by 12/28/2016. 7. Geovany will meet 75% of predicted incentive spirometer goal of 2250. STRATEGY TO ACHIEVE GOALS: 1. Monitor saturations via oximetry and titrate to order as indicated. 2. Monitor CMS as ordered and encourage pt to report any changes 3. Monitor pain and medicate as needed 4. Keep call light within reach at all times and encourage use 5. Staff to assist with transfers and gait as needed. 6. Perform airway clearance using vibratory PEP therapy. 7. Instruct patient how use of Incentive Spirometry and deep breath and cough. Nursing and Respiratory to work together to have patient use every hour while awake. Respiratory to 8. monitor progress 4 times daily until 75% goal met then turn over to nursing. Goal Evaluation: Severity Score 4 Class 2 Severity Score 0-4 ITEM 0 1 2 [...] Purse Lip Breathing, Use of accessory muscles 2 Breath Sounds Clear Diminished unilaterally Diminished bilaterally [...] 3 12-14 4 15+ 5 lan of Elysia - Janet Woodard OT - 12/30/2016 4:59 PM PDTProblem: Patient Care Overview (Adult) Goal: Care Team Goals & Evaluation PROBLEM-RELATED GOALS: 1. Geovany will maintain adequate oxygenation via oximetry with SpO2 >90 by 12/31/2016. 2. Geovany will maintain CMS intact by 12/29/2016. 3. Geovany will report satisfactory pain control at a level less than 4/10 on a rating scale o f 0 to 10 12/29/2016. 4. Geovany will be free from falls/injuries by 12/29/2016. 5. Geovany will be min A for basic transfers and gait to chair beside bed with FWW by 01/04/20 17. 6. Geovany will maintain a patent airway and effective airway clearance by 12/28/2016. 7. Geovany will meet 75% of predicted incentive spirometer goal of 2250. STRATEGY TO ACHIEVE GOALS: 1. Monitor saturations via oximetry and titrate to order as indicated. 2. Monitor CMS as ordered and encourage pt to report any changes 3. Monitor pain and medicate as needed 4. Keep call light within reach at all times and encourage use 5. Staff to assist with transfers and gait as needed. 6. Perform airway clearance using vibratory PEP therapy. 7. Instruct patient how use of Incentive Spirometry and deep breath and cough. Nursing and Respiratory to work together to have patient use every hour while awake. Respiratory to 8. monitor progress 4 times daily until 75% goal met then turn over to nursing. Occupational Therapy Careplan updated, continue 5x/week, interventions updated as well. Electronically signed by: Janet Woodard OT 12/30/2016 16:58 lan of Care - Meagan Bello se, RN - 12/30/2016 4:36 PM PDTProblem: Patient Care Overview (Adult) Goal: Care Team Goals & Evaluation PROBLEM-RELATED GOALS: 1. Geovany will maintain adequate oxygenation via oximetry with SpO2 >90 by 12/31/2016. 2. Geovany will maintain CMS intact by 12/29/2016. 3. Geovany will report satisfactory pain control at a level less than 4/10 on a rating scale o f 0 to 10 12/29/2016. 4. Geovany will be free from falls/injuries by 12/29/2016. 5. Geovany will be min A for basic transfers and gait to chair beside bed with FWW by 01/04/20 17. 6. Geovany will maintain a patent airway and effective airway clearance by 12/28/2016. 7. Geovany will meet 75% of predicted incentive spirometer goal of 2250. STRATEGY TO ACHIEVE GOALS: 1. Monitor saturations via oximetry and titrate to order as indicated. 2. Monitor CMS as ordered and encourage pt to report any changes 3. Monitor pain and medicate as needed 4. Keep call light within reach at all times and encourage use 5. Staff to assist with transfers and gait as needed. 6. Perform airway clearance using vibratory PEP therapy. 7. Instruct patient how use of Incentive Spirometry and deep breath and cough. Nursing and Respiratory to work together to have patient use every hour while awake. Respiratory to 8. monitor progress 4 times daily until 75% goal met then turn over to nursing. Outcome: Improving Goal Evaluation: Patient medicated with 5 mg oxycodone as needed for pain. Geovany has been working with [employer] this shift. He has been oxygenating >92% on 1L [place] CSM intact. Patient calls avni brooks for needs. lan of Care - Catherine Murray, PT - 12/30/2016 3:02 PM PDTFormatting of this note might be different from t he original. Problem: Patient Care Overview (Adult) Goal: Care Team Goals & Evaluation PROBLEM-RELATED GOALS: 1. Geovany will maintain adequate oxygenation via oximetry with SpO2 >90 by 12/31/2016. 2. Geovany will maintain CMS intact by 12/29/2016. 3. Geovany will report satisfactory pain control at a level less than 4/10 on a rating scale o f 0 to 10 12/29/2016. 4. Geovany will be free from falls/injuries by 12/29/2016. 5. Geovany will be min A for basic transfers and gait to chair beside bed with FWW by 01/04/20 17. 6. Geovany will maintain a patent airway and effective airway clearance by 12/28/2016. 7. Geovany will meet 75% of predicted incentive spirometer goal of 2250. STRATEGY TO ACHIEVE GOALS: 1. Monitor saturations via oximetry and titrate to order as indicated. 2. Monitor CMS as ordered and encourage pt to report any changes 3. Monitor pain and medicate as needed 4. Keep call light within reach at all times and encourage use 5. Staff to assist with transfers and gait as needed. 6. Perform airway clearance using vibratory PEP therapy. 7. Instruct patient how use of Incentive Spirometry and deep breath and cough. Nursing and Respiratory to work together to have patient use every hour while awake. Respiratory to 8. monitor progress 4 times daily until 75% goal met then turn over to nursing. Outcome: Improving Physical Therapy Plan of Care Treatment Note Summary: Pt fatigued at initial appt time, so let him rest as he had sat up for jerri. 2 shailesh rs and just gotten back to bed. Pt now seen for treatment with focus on functional mobility, standing tolerance, strengthening, and balance. Pt receiving pain medications part way thr ough session. Pt is very hard of hearing and requires therapist to be looking him directly in the eye and speaking very loudly to him. Pt still requires 2P assist and raised bed heig ht for sit to stand with Sanam Travis but was able to stand for up to 35 seconds on best trial before requiring to sit down to take a rest. Pt also transferred to manual wheelchair for w heelchair mobility training. Recommend that pt is motivated and would benefit from further therapies at inpatient rehab due to the nature of patient's falls at home, his 's inabil ity to help him at home significantly, and his variable blood pressure and symptoms of dizzi ness that may have led to his fall at home and the increased trauma of poor skin integrity a nd bilateral femur fractures. Physical Therapy Discharge Recommendations are: Recommended discharge disposition: inpatient rehabilitation facility Post discharge physical therapy recommendation: minimum 5 days of therapy/week, will benef it from structured setting, able to tolerate 3 hours of therapy/day, pt is motivated partici pant Equipment Recommendations: 2 wheeled walker (FWW), wheelchair, wheelchair cushion Planned Interventions: balance training, bed mobility training, gait training, home exerci se program, patient/family education, orthotic fitting/training, transfer training, wheelcha ir management/propulsion training, ROM (Range of Motion), stair training, strengthening Recommended Frequency: daily Patient Status/Goals: Reflects last filed data and may be from multiple contributors. Gait Unable to assess due to patient drop blood pressure making hymns unsafe to do out of bed ac tivities. Transfers Pt completed sit <> stand x 3 with Sanam Travis, 2P, mod assist, raised bed height, and cues. He stood for 15 sec, and 35 sec x 2 with seated rests between. *Also used pillow in front o f knee/luna pads for improved comfort and skin protection. Sit-Stand, Level of [place]: 2 person assist required, verbal cues required, moderate assist (50% patient effort) Stand-Sit, Level of [place]: 2 person assist required, verbal cues required, moderate assist (50% patient effort) [id number], Assistive Device: other (see comments) (Sanam Travis) Safety Issues: weight-shifting ability decreased, sequencing ability decreased Impairments: pain, strength decreased, decreased flexibility, impaired balance, postural co ntrol impaired Bed Mobility 2 person mod assist drawsheet, however patient demonstrates antigravity movements with lowe r teres and upper extremities. Assistive Device: HOB elevated, draw sheet Scoot/Bridge, Level of [place]: moderate assist (50% patient effort), 2 person assist required, verbal cues required, tactile cues required Supine to Sit, Level of [place]: minimal assist (75% patient effort), verbal cues requ ired, 2 person assist required Sit to Supine, Level of [place]: moderate assist (50% patient effort), verbal cues req uired, tactile cues required, 2 person assist required Safety Issues: decreased use of legs for bridging/pushing, impaired trunk control for bed m obility Impairments: decreased flexibility, strength decreased, impaired balance, pain Wheelchair Mobility Pt requires set up, verbal instruction, and supervision for wheelchair mobility; able to sl owly self propel wc with cueing for 42 ft before requiring rest. Therapeutic Exercise Partial sit <> stand x 2 at Sanam Hubbard (with 2-3 person assist, raised bed height, and usi ng pads under buttocks to help facilitate ease of sit <> stand) Bed exercises: bilateral, ankle pumps, quad sets, short arc quads Repetitions: 10 Seated exercises: bilateral, marching, long arc quads Functional Endurance Impaired but improving; Pt still requires rests between each activity but BP 121/65 with HR in 70s after standing and completing wheelchair mobility. ROM BLEs unable to move actively through full range, pt reports pain in knees prevents movement at this time PT Goal Review Date Flowsheet Row Most Recent Value STG Review Date 01/03/17 at 12/27/2016 1450 Roll Left/Right Goal Flowsheet Row Most Recent Value STG Status not addressed at 12/30/2016 1459 STG [place] Level stand by assist at 12/20/2016 0915 Scoot/Bridge Goal Flowsheet Row Most Recent Value STG Status progressing at 12/30/2016 1459 STG [place] Level stand by assist at 12/20/2016 0915 [id number]-[id number] Goal Flowsheet Row Most Recent Value STG Status progressing at 12/30/2016 1459 STG [place] Level stand by assist at 12/20/2016 0915 Evemsksdn-Vas-[id number] Goal Flowsheet Row Most Recent Value STG Status not addressed at 12/28/2016 1103 STG [place] Level stand by assist at 12/20/2016 0915 STG Assistive Device bed rails at 12/20/2016 0915 All Transfers Goal Flowsheet Row Most Recent Value STG Status progressing at 12/30/2016 1459 STG [place] Level stand by assist, 1 person + 1 person to manage equipment at 017 1450 STG Assistive Device other (see Comments) [Sanam Stedy] at 12/25/2016 1159 STG Comments Using Sanam Thaddeus at 12/25/2016 1159 Gait Goal Flowsheet Row Most Recent Value STG Status not addressed at 12/30/2016 1459 STG [place] Level stand by assist at 12/20/2016 0915 STG Assistive Device 2 wheeled walker (FWW) at 12/20/2016 0915 STG Distance (feet) 10 at 12/20/2016 0915 Stair Goal Flowsheet Row Most Recent Value STG Status discontinued at 12/25/2016 1159 STG [place] Level -- [.] at 12/25/2016 1159 STG Assistive Device -- [.] at 12/25/2016 1159 STG Number of Stairs -- [.] at 12/25/2016 1159 Additional Goal #1 PT Flowsheet Row Most Recent Value STG Status progressing at 12/30/2016 1459 STG Pt will tolerate standing at Sanam Stedy x 1min w/ supervision only at 12/25/2016 1159 LTG Status progressing at 12/26/2016 1402 Electronically signed by: Catherine Manzo, PT, 12/30/2016 15:45 lan of Care - Sara Chavez COTA - 12/30/2016 10:55 AM PDT Problem: Patient Care Overview (Adult) Goal: Care Team Goals & Evaluation PROBLEM-RELATED GOALS: 1. Geovany will maintain adequate oxygenation via oximetry with SpO2 >90 by 12/31/2016. 2. Geovany will maintain CMS intact by 12/29/2016. 3. Geovany will report satisfactory pain control at a level less than 4/10 on a rating scale o f 0 to 10 12/29/2016. 4. Geovany will be free from falls/injuries by 12/29/2016. 5. Geovany will be min A for basic transfers and gait to chair beside bed with FWW by 01/04/20 17. 6. Geovany will maintain a patent airway and effective airway clearance by 12/28/2016. 7. Geovany will meet 75% of predicted incentive spirometer goal of 2250. STRATEGY TO ACHIEVE GOALS: 1. Monitor saturations via oximetry and titrate to order as indicated. 2. Monitor CMS as ordered and encourage pt to report any changes 3. Monitor pain and medicate as needed 4. Keep call light within reach at all times and encourage use 5. Staff to assist with transfers and gait as needed. 6. Perform airway clearance using vibratory PEP therapy. 7. Instruct patient how use of Incentive Spirometry and deep breath and cough. Nursing and Respiratory to work together to have patient use every hour while awake. Respiratory to 8. monitor progress 4 times daily until 75% goal met then turn over to nursing. Occupational Therapy Plan of Care Treatment Note Summary: Patient motivated to work with OT. Patient expressed concern about losing strengt h and wanting to get home. Patient was agreeable to sit up in chair at bedside. Patient sanders sfered slowly up to EOB, then stood with sanam thaddeus and 2 persons with Mod A for safety. Laxmi cook was able to hold standing position for 15 seconds before returning to sit. Patient stoo d again and sat in chair with significant pain and Mod A x 2 persons. Patient's MD in to spe ak with him regarding placement options. Set patient up with call light and tray table of be longings. Patient will require additional therapy for safety before D/C home as his is blind and limited in her ability to assist. Occupational Therapy Discharge Recommendations are: Recommended discharge disposition: inpatient rehabilitation facility (tbd) Post discharge occupational therapy recommendation: (TBD) Equipment Recommendations: (tbd) Planned Interventions:ADL retraining, strengthening, transfer training Recommended Frequency: daily Patient Status/Goals: Reflects last filed data and may be from multiple contributors. Bed Mobility Supine to Sit, Level of [place]: minimal assist (75% patient effort), verbal cues req uired, 2 person assist required Sit to Supine, Level of [place]: moderate assist (50% patient effort), set up required , verbal cues required, tactile cues required Safety Issues: decreased use of arms for pushing/pulling, decreased use of legs for bridgin g/pushing, impaired trunk control for bed mobility Impairments: decreased flexibility, strength decreased, impaired balance, pain Transfers Patient completed bed to chair using sanam travis, 2P, mod assist. Patient stood for 15 secon ds, then requesting to sit. Stood again x 1 and sat on chair with Mod A x 2 persons with sig nificant pain. Bed-Chair, Level of [place]: 2 person assist required, moderate assist (50% patient ef fort) [id number], Assistive Device: other (see comments) Sit-Stand, Level of [place]: 2 person assist required, moderate assist (50% patient ef fort) Stand-Sit, Level of [place]: 2 person assist required, moderate assist (50% patient ef fort) [id number]-[id number], Assistive Device: other (see comments) Safety Issues: sequencing ability decreased, weight-shifting ability decreased Impairments: pain, strength decreased, impaired balance, postural control impaired OT Goal Review Date Flowsheet Row Most Recent Value STG Review Date 12/25/16 at 12/29/2016 1600 UB Dressing Goal Flowsheet Row Most Recent Value STG Status continued, not addressed at 12/30/2016 1524 STG [place] Level supervised at 12/29/2016 1600 STG Adaptive Equipment none at 12/29/2016 1600 LB Dressing Goal Flowsheet Row Most Recent Value STG Status continued, not addressed at 12/30/2016 1524 STG [place] Level moderate assist (50% patient effort) at 12/29/2016 1600 STG Adaptive Equipment accountant auditor, sock-aid at 12/29/2016 1600 Toilet Transfer Goal Flowsheet Row Most Recent Value STG Status continued, progressing at 12/30/2016 1524 STG [place] Level minimum assist (75% patient effort) at 12/29/2016 1600 STG Assistive Device commode (3 in 1), grab bars, 2 wheeled walker (FWW) at 12/29/2016 160 0 Electronically signed by: Sara Viera, Certified Magnet Placer, 12/31/19 17 15:34 lan of Care - Darling Rodriguez RN - 12/30/2016 5:14 AM PDTProblem: Patient Care Overview (Adult) Goal: Care Team Goals & Evaluation PROBLEM-RELATED GOALS: 1. Geovany will maintain adequate oxygenation via oximetry with SpO2 >90 by 12/31/2016. 2. Geovany will maintain CMS intact by 12/29/2016. 3. Geovany will report satisfactory pain control at a level less than 4/10 on a rating scale o f 0 to 10 12/29/2016. 4. Geovany will be free from falls/injuries by 12/29/2016. 5. Geovany will be min A for basic transfers and gait to chair beside bed with FWW by 01/04/20 17. 6. Geovany will maintain a patent airway and effective airway clearance by 12/28/2016. 7. Geovany will meet 75% of predicted incentive spirometer goal of 2250. STRATEGY TO ACHIEVE GOALS: 1. Monitor saturations via oximetry and titrate to order as indicated. 2. Monitor CMS as ordered and encourage pt to report any changes 3. Monitor pain and medicate as needed 4. Keep call light within reach at all times and encourage use 5. Staff to assist with transfers and gait as needed. 6. Perform airway clearance using vibratory PEP therapy. 7. Instruct patient how use of Incentive Spirometry and deep breath and cough. Nursing and Respiratory to work together to have patient use every hour while awake. Respiratory to 8. monitor progress 4 times daily until 75% goal met then turn over to nursing. Outcome: Improving Goal Evaluation: Geovany is alert and oriented x3. Able to make needs known. Denies pain/discomfort, some disco mfort with movement, denies needing pain medication. Multiple skin tears on bilateral legs, arms and buttocks covered with pink foam. Requires lift to get OOB. Assisted with reposition ing. Tele on, a. Fibb, HR irregular. BP WNL- VSS. Continues to be on 1 L [place]. BM this shift . Triple lumen PICC line dressing changed tonight 12/30. All flush, unable to return blood in all three lumens. Calls appropriately. No falls/injury this shift. Appeared to sleep wel l between cares. lan of Care - Mariola rodrigues, Law Davis PT - 12/29/2016 3:40 PM PDT Problem: Patient Care Overview (Adult) Goal: Care Team Goals & Evaluation PROBLEM-RELATED GOALS: 1. Geovany will maintain adequate oxygenation via oximetry with SpO2 >90 by 12/31/2016. 2. Geovany will maintain CMS intact by 12/29/2016. 3. Geovany will report satisfactory pain control at a level less than 4/10 on a rating scale o f 0 to 10 12/29/2016. 4. Geovany will be free from falls/injuries by 12/29/2016. 5. Geovany will be min A for basic transfers and gait to chair beside bed with FWW by 01/04/20 17. 6. Geovany will maintain a patent airway and effective airway clearance by 12/28/2016. 7. Geovany will meet 75% of predicted incentive spirometer goal of 2250. STRATEGY TO ACHIEVE GOALS: 1. Monitor saturations via oximetry and titrate to order as indicated. 2. Monitor CMS as ordered and encourage pt to report any changes 3. Monitor pain and medicate as needed 4. Keep call light within reach at all times and encourage use 5. Staff to assist with transfers and gait as needed. 6. Perform airway clearance using vibratory PEP therapy. 7. Instruct patient how use of Incentive Spirometry and deep breath and cough. Nursing and Respiratory to work together to have patient use every hour while awake. Respiratory to 8. monitor progress 4 times daily until 75% goal met then turn over to nursing. Outcome: Improving Physical Therapy Plan of Care Treatment Note Summary: Patient seen as a PT/OT cotreatment to focus on functional mobility, standing kenneth erance, lower action a strengthening and overall mobility. Patient supine in bed agreeable to therapy, after receiving pain medications 30 minutes prior. Patient is very hard of hear ing and requires therapist to be looking him directly in the eye and speaking very loudly to him. Overall mod assist for supine to sitting edge of bed with PT assisting in both legs t o complete edge of bed transfer. 2 persons required for sit to stand with Sanam steady with encouragement for patient to try to stand although he upright for up to 20 seconds before re quiring to sit down to take a rest. Patient performed sit to stand approximately 8 times wi th PT and OT assistance and then requested to have a bowel movement on the bedside commode. PT and OT assisting patient to bedside commode, noting that he sits quickly without adequat e control of his descent, dropping rapidly onto the commode. Patient was given time to atte mpt have BM, but was unable to defecate. Upon 2 person assist to stand at moderate assist 2 OT assisting patient with. Care and hygiene tasks while PT ensure safety with standing a s patient attempting to lean forward as he fatigues with his upper extremities. Patient was transferred to bedside chair and report given to nursing for the need for patient to be up with increased frequency, including up and chair for all meals with two-person use per sanam steady. PT is also recommending inpatient rehab consult due to the nature of patient's fall s at home, his 's inability to help him at home significantly, and his variable blood pr essure and symptoms of dizziness that may have led to his fall at home and the increased tra harrison of poor skin integrity and bilateral femur fractures. Physical Therapy Discharge Recommendations are: Recommended discharge disposition: inpatient rehabilitation facility Post discharge physical therapy recommendation: minimum 5 days of therapy/week, will benef it from structured setting, able to tolerate 3 hours of therapy/day, pt is motivated partici pant Equipment Recommendations: 2 wheeled walker (FWW), wheelchair, wheelchair cushion Planned Interventions: balance training, bed mobility training, gait training, home exerci se program, patient/family education, orthotic fitting/training, transfer training, wheelcha ir management/propulsion training, ROM (Range of Motion), stair training, strengthening Recommended Frequency: daily Patient Status/Goals: Reflects last filed data and may be from multiple contributors. Gait Unable due to weakness and fatigue, uanble to step forward at this time. Transfers Sit-Stand, Level of [place]: 2 person assist required, verbal cues required Stand-Sit, Level of [place]: 2 person assist required, verbal cues required [id number], Assistive Device: other (see comments) (Sanam Travis) Impairments: pain, strength decreased, decreased flexibility, impaired balance, postural co ntrol impaired Bed Mobility mod assist drawsheet, however patient demonstrates antigravity movements with lower teres and upper extremities. Assistive Device: HOB elevated, draw sheet Scoot/Bridge, Level of [place]: moderate assist (50% patient effort), 2 person assist required, verbal cues required, tactile cues required Supine to Sit, Level of [place]: moderate assist (50% patient effort), verbal cues req uired, tactile cues required, 2 person assist required Sit to Supine, Level of [place]: moderate assist (50% patient effort), verbal cues req uired, tactile cues required, 2 person assist required Safety Issues: decreased use of legs for bridging/pushing, impaired trunk control for bed m obility Impairments: decreased flexibility, strength decreased, impaired balance, pain Balance fair- Therapeutic Exercise Repetitions: Static and dynamic sitting balance tolerance, 15 minutes Functional Endurance Pt tolerated full standing position in sanam steady for jose care and hygeine x 60 seconds ROM BLEs unable to move actively through full range, pt reports pain in knees prevents movement at this time [facility] BASIC MOBILITY [facility] BASIC MOBILITY Turning over in bed: unable without assistance Sitting down /standing up from arm chair: unable without assistance Moving from supine to sitting on edge of bed: a lot of difficulty without assistance Moving to and from a bed to a chair : mod or max assist/a lot of help Walking in hospital room: dependent/unable Climbing 3-5 steps with a railing: dependent/unable TOTAL - [facility] BASIC MOBILITY : 8 Unable / dependent = 1 A lot / modA = 2 A little / Warner = 3 None / independent = 4 Completed the [employer] Activity Measure for Post Acute Care (AM-PAC) "6 Clicks" [facility] Mobility Inpatient Short Form. This version of the AM-PAC is an assessment tool used to measure a person's level of disability in performing basic mobility tasks. This patient's score indicates a performance of 86.62% impairment in the functioning of basic mobility. Raw Score - Functional Limitation % (for CMS) - "Severity Modifier" 6 - 100.00 - CN 7 - 92.36 - CM 8 - 86.62 - CM 9 - 81.38 - CM 10 - 76.75 - CL 11 - 72.57 - CL 12 - 68.66 - CL 13 - 64.91 - CL 14 - 61.29 - CL 15 - 57.70 - CK 16 - 54.16 - CK 17 - 50.57 - CK 18 - 46.58 - CK 19 - 41.77 - CK 20 - 35.83 - CJ 21 - 28.97 - CJ 22 - 20.91 - CJ 23 - 11.2 - CI 24 - 0.00 - CH Predicted Discharge During Acute Hospitalization (Raw Score) Home = 20.1 With assist = 17.9 SNF = 14 IRF = 13.6 LTAC = 11.5 PT Goal Review Date Flowsheet Row Most Recent Value STG Review Date 01/03/17 at 12/27/2016 1450 Roll Left/Right Goal Flowsheet Row Most Recent Value STG Status not addressed at 12/28/2016 1103 STG [place] Level stand by assist at 12/20/2016 0915 Scoot/Bridge Goal Flowsheet Row Most Recent Value STG Status progressing at 12/28/2016 1103 STG [place] Level stand by assist at 12/20/2016 0915 Pltits-Qzh-Ayhbky Goal Flowsheet Row Most Recent Value STG Status progressing at 12/28/2016 1103 STG [place] Level stand by assist at 12/20/2016 0915 Yawmllbae-Zty-Klfedmiln Goal Flowsheet Row Most Recent Value STG Status not addressed at 12/28/2016 1103 STG [place] Level stand by assist at 12/20/2016 0915 STG Assistive Device bed rails at 12/20/2016 0915 All Transfers Goal Flowsheet Row Most Recent Value STG Status not addressed at 12/28/2016 1103 STG [place] Level stand by assist, 1 person + 1 person to manage equipment at 017 1450 STG Assistive Device other (see Comments) [Sanam Travis] at 12/25/2016 1159 STG Comments Using Sanam Travis at 12/25/2016 1159 Gait Goal Flowsheet Row Most Recent Value STG Status not addressed at 12/28/2016 1103 STG [place] Level stand by assist at 12/20/2016 0915 STG Assistive Device 2 wheeled walker (FWW) at 12/20/2016 0915 STG Distance (feet) 10 at 12/20/2016 0915 Stair Goal Flowsheet Row Most Recent Value STG Status discontinued at 12/25/2016 1159 STG [place] Level -- [.] at 12/25/2016 1159 STG Assistive Device -- [.] at 12/25/2016 1159 STG Number of Stairs -- [.] at 12/25/2016 1159 Additional Goal #1 PT Flowsheet Row Most Recent Value STG Status not addressed at 12/28/2016 1103 STG Pt will tolerate standing at Sanam Stedy x 1min w/ supervision only at 12/25/2016 1159 LTG Status progressing at 12/26/2016 1402 Electronically signed by: Law Rollins, PT, 12/29/2016 17:56 lan of Care - D Yuliya gonzalez, OT - 12/29/2016 3:40 PM PDT Problem: Patient Care Overview (Adult) Goal: Care Team Goals & Evaluation PROBLEM-RELATED GOALS: 1. Geovany will maintain adequate oxygenation via oximetry with SpO2 >90 by 12/31/2016. 2. Geovany will maintain CMS intact by 12/29/2016. 3. Geovany will report satisfactory pain control at a level less than 4/10 on a rating scale o f 0 to 10 12/29/2016. 4. Geovany will be free from falls/injuries by 12/29/2016. 5. Geovany will be min A for basic transfers and gait to chair beside bed with FWW by 01/04/20 17. 6. Geovany will maintain a patent airway and effective airway clearance by 12/28/2016. 7. Geovany will meet 75% of predicted incentive spirometer goal of 2250. STRATEGY TO ACHIEVE GOALS: 1. Monitor saturations via oximetry and titrate to order as indicated. 2. Monitor CMS as ordered and encourage pt to report any changes 3. Monitor pain and medicate as needed 4. Keep call light within reach at all times and encourage use 5. Staff to assist with transfers and gait as needed. 6. Perform airway clearance using vibratory PEP therapy. 7. Instruct patient how use of Incentive Spirometry and deep breath and cough. Nursing and Respiratory to work together to have patient use every hour while awake. Respiratory to 8. monitor progress 4 times daily until 75% goal met then turn over to nursing. Occupational Therapy Plan of Care Treatment Note Summary: Pt seen in co-tx with PT due to decreased strength, activity tolerance, and decre ased mobility. Pt was able to tolerate multiple sit<>stand transfers using Sanam Steady. Pt is eager to perform but is quite deconditioned and requires significant assist to complete transfers. Pt also requires dependent assist for toileting ADLs as pt's energy is directed into holding self in standing with Sanam Steady while toileting hygeine is completed. Pt ne eds continued daily therapies for increasing strength and activity tolerance as he is quite deconditioned. Pt may be a good candidate for IRF as he will need significant improvement t o d/c home safely. Will continue to follow for d/c planning, strengthening, ADLs, and fxl m obility. Occupational Therapy Discharge Recommendations are: Recommended discharge disposition: inpatient rehabilitation facility (tbd) Post discharge occupational therapy recommendation: (TBD) Equipment Recommendations: (tbd) Planned Interventions:ADL retraining, strengthening, transfer training Recommended Frequency: daily Patient Status/Goals: Reflects last filed data and may be from multiple contributors. ADLs Pt required dependent assist to perform wiping tasks, able to hold self in standing during toileting with Sanam Steady Toileting, Level of [place]: dependent ( less than 25% patient effort), 2 person aram t required, set up required, verbal cues required Assistive Device: bedside commode Toileting Assess/Train, Position: sitting Toileting Assess/Train, Impairments: strength decreased, coordination impaired, pain, motor control impaired, impaired balance Bed Mobility Requires consistent cues for moving extremities, extra time needed to complete transfer to EOB. Assistive Device: HOB elevated, draw sheet Scoot/Bridge, Level of [place]: maximal assist (25% patient effort), 2 person assist r equired, verbal cues required, tactile cues required Supine to Sit, Level of [place]: verbal cues required, tactile cues required, moderate assist (50% patient effort) Sit to Supine, Level of [place]: moderate assist (50% patient effort), set up required , verbal cues required, tactile cues required Safety Issues: decreased use of legs for bridging/pushing, impaired trunk control for bed m obility Impairments: decreased flexibility, strength decreased, impaired balance, pain Transfers Pt transfers with moderate assist while using Sanam Steady to complete sit<>stand transfers. Tends to 'plop' down into chair/BSC unless he has significant assist to lower down into si tting. Sit-Stand, Level of [place]: 2 person assist required, verbal cues required, moderate assist (50% patient effort) (Using Sanam Steady) Stand-Sit, Level of [place]: 2 person assist required, verbal cues required, moderate assist (50% patient effort) Omb-Sogqy-Iid, Assistive Device: other (see comments) (Sanam Steady) Toilet, Level of [place]: moderate assist (50% patient effort), set up required, verba l cues required Toilet, Assistive Device: commode (3 in 1) (Sanam Steady) Safety Issues: weight-shifting ability decreased, sequencing ability decreased Impairments: pain, strength decreased, decreased flexibility, impaired balance, postural co ntrol impaired OT Goal Review Date Flowsheet Row Most Recent Value STG Review Date 12/25/16 at 12/29/2016 1600 UB Dressing Goal Flowsheet Row Most Recent Value STG Status continued, not addressed at 12/29/2016 1600 STG [place] Level supervised at 12/29/2016 1600 STG Adaptive Equipment none at 12/29/2016 1600 LB Dressing Goal Flowsheet Row Most Recent Value STG Status continued, not addressed at 12/29/2016 1600 STG [place] Level moderate assist (50% patient effort) at 12/29/2016 1600 STG Adaptive Equipment accountant auditor, sock-aid at 12/29/2016 1600 Toilet Transfer Goal Flowsheet Row Most Recent Value STG Status continued, progressing at 12/29/2016 1600 STG [place] Level minimum assist (75% patient effort) at 12/29/2016 1600 STG Assistive Device commode (3 in 1), grab bars, 2 wheeled walker (FWW) at 12/29/2016 160 0 Electronically signed by: Yuliya Ross OT, 12/29/2016 17:06 eICU Note - Jennifer Pink RN - 12/29/2016 8:17 AM PDTAt approximately 0130 on 12/29/16 this RN found Geovany bru shing his teeth and preparing for the day. He believed it to be morning and asked why his wi fe was not here yet. I attempted to reorient Geovany and together we looked at 3 different [facility] k[facility] to confirm the time and opened the window so he could confirm that it was indeed dark out . He continued to awaken more confused almost hourly the rest of the shift and became increa sing frustrated, believing that we were not being truthful about his whereabouts, needed int erventions, and the time of day. At 0430 and 0710 I asked if I could call family or his to confirm when they planned to visit or just to speak with them. He declined on both occasions and said "you aren't going to convince me that I'm senile." I explained to Geovany how this confusion can happen to anyone in the acute care setting and that it had nothing to do with age and instead was a product of his current environment and constant interruption of his sleep cycle. In bed side report the day shift RN and myself reviewed the situation with Geovany. He stated that he wanted to speak with his doctor about transport to [facility]. At 0740 Dr. Hoyt was at the bedside to speak with Geovany and discuss his current state as well as his recovery process and what he could likely expect. lan of Care - cyndi, Malik Kessler RN - 12/29/2016 7:00 AM PDTProblem: Patient Care Overview (Adult) Goal: Care Team Goals & Evaluation PROBLEM-RELATED GOALS: 1. Geovany will maintain adequate oxygenation via oximetry with SpO2 >90 by 12/31/2016. 2. Geovany will maintain CMS intact by 12/29/2016. 3. Geovany will report satisfactory pain control at a level less than 4/10 on a rating scale o f 0 to 10 12/29/2016. 4. Geovany will be free from falls/injuries by 12/29/2016. 5. Geovany will be min A for basic transfers and gait to chair beside bed with FWW by 01/04/20 17. 6. Geovany will maintain a patent airway and effective airway clearance by 12/28/2016. 7. Geovany will meet 75% of predicted incentive spirometer goal of 2250. STRATEGY TO ACHIEVE GOALS: 1. Monitor saturations via oximetry and titrate to order as indicated. 2. Monitor CMS as ordered and encourage pt to report any changes 3. Monitor pain and medicate as needed 4. Keep call light within reach at all times and encourage use 5. Staff to assist with transfers and gait as needed. 6. Perform airway clearance using vibratory PEP therapy. 7. Instruct patient how use of Incentive Spirometry and deep breath and cough. Nursing and Respiratory to work together to have patient use every hour while awake. Respiratory to 8. monitor progress 4 times daily until 75% goal met then turn over to nursing. Outcome: Improving Goal Evaluation: Geovany is maintaining SpO2>90% on RA while awake and on 1 L NC while sleeping. CMS is intact . Geovany denies pain except during repositioning. He has been free of falls and injury through out the shift and uses his call light appropriately. Pt is able to protect his airway well a nd has a good cough. Slept poorly last night and woke up multiple times very confused about his location and thinking it was already morning. lan of Care - Juan J Cotto, CELLO TEACHER - 12/29/2016 6:03 AM PDTProblem: Patient Care Overview (Adult) Goal: Care Team Goals & Evaluation PROBLEM-RELATED GOALS: 1. Geovany will maintain adequate oxygenation via oximetry with SpO2 >90 by 12/31/2016. 2. Geovany will maintain CMS intact by 12/29/2016. 3. Geovany will report satisfactory pain control at a level less than 4/10 on a rating scale o f 0 to 10 12/29/2016. 4. Geovany will be free from falls/injuries by 12/29/2016. 5. Geovany will be min A for basic transfers and gait to chair beside bed with FWW by 01/04/20 17. 6. Geovany will maintain a patent airway and effective airway clearance by 12/28/2016. 7. Geovany will meet 75% of predicted incentive spirometer goal of 2250. STRATEGY TO ACHIEVE GOALS: 1. Monitor saturations via oximetry and titrate to order as indicated. 2. Monitor CMS as ordered and encourage pt to report any changes 3. Monitor pain and medicate as needed 4. Keep call light within reach at all times and encourage use 5. Staff to assist with transfers and gait as needed. 6. Perform airway clearance using vibratory PEP therapy. 7. Instruct patient how use of Incentive Spirometry and deep breath and cough. Nursing and Respiratory to work together to have patient use every hour while awake. Respiratory to 8. monitor progress 4 times daily until 75% goal met then turn over to nursing. Outcome: Improving Goal Evaluation: Dora SpO2 94 % on nasal cannula at flow rate 1 LPM. Pt working w ith pep independently at his pace when he wants. Refusing to use inspirometer. RT will abimbola nue to monitor and treat as indicated. lan of Care - Cira Alcocer OT - 12/28/2016 4:40 PM PDTFormatting of this note might be different from dena arredondo original. Problem: Patient Care Overview (Adult) Goal: Care Team Goals & Evaluation PROBLEM-RELATED GOALS: 1. Geovany will maintain adequate oxygenation via oximetry with SpO2 >90 by 12/31/2016. 2. Geovany will maintain CMS intact by 12/29/2016. 3. Geovany will report satisfactory pain control at a level less than 4/10 on a rating scale o f 0 to 10 12/29/2016. 4. Geovany will be free from falls/injuries by 12/29/2016. 5. Geovany will be min A for basic transfers and gait to chair beside bed with FWW by 01/04/20 17. 6. Geovany will maintain a patent airway and effective airway clearance by 12/28/2016. 7. Geovany will meet 75% of predicted incentive spirometer goal of 2250. STRATEGY TO ACHIEVE GOALS: 1. Monitor saturations via oximetry and titrate to order as indicated. 2. Monitor CMS as ordered and encourage pt to report any changes 3. Monitor pain and medicate as needed 4. Keep call light within reach at all times and encourage use 5. Staff to assist with transfers and gait as needed. 6. Perform airway clearance using vibratory PEP therapy. 7. Instruct patient how use of Incentive Spirometry and deep breath and cough. Nursing and Respiratory to work together to have patient use every hour while awake. Respiratory to 8. monitor progress 4 times daily until 75% goal met then turn over to nursing. Outcome: Improving Occupational Therapy Plan of Care Treatment Note Summary: Pt encountered supine in bed. Performed BUE excercises x15 reps chest flys, inter nal rotation, external rotation. Pt required significant vcs and tcs to complete excercises. Pt instructed to complete 10 reps every hour of 1 excercise, instructions left on whiteboar d. Pt reached seated EOB via dependent transfer, BP dropped to 74/46 and returned to supine. BP normalized, RN present. Pt will benefit from skilled OT services to increase ADL indepen dence and activity tolerance. Occupational Therapy Discharge Recommendations are: Recommended discharge disposition: fpc facility, fpc acute care facility Post discharge occupational therapy recommendation: (TBD) Equipment Recommendations: (TBD) Planned Interventions:ADL retraining, strengthening, transfer training Recommended Frequency: daily Patient Status/Goals: Reflects last filed data and may be from multiple contributors. ADLs Pt washed face seated EOB demonstrating good seated balance. However drop in BP after activ ity made out of bed activties unsafe. Grooming, Level of [place]: contact guard assist Grooming Assess/Train, Impairments: strength decreased, impaired balance Therapeutic Exercise Shoulder exercises: bilateral, flexion, extension, internal rotation, external rotation, AB Duction, ADDuction Type of exercise: resistive, theraband Repetitions/ Resistance: 15 reps each exercise Elbow exercises: bilateral, flexion, pronation, extension, supination Wrist exercises: bilateral, flexion, extension Type of exercise: theraband Functional Endurance Poor this tx session as indicated by drop in BP after sitting EOB. Cognitive Mood/Behavior: calm, cooperative, behavior appropriate to situation Orientation: oriented x 4 Arousal Level: opens eyes spontaneously Speech: clear, spontaneous, logical Bed Mobility 2 person, max assist drawsheet. Dependent transfer utilized d/t skin integrity. Assistive Device: HOB elevated, draw sheet Scoot/Bridge, Level of [place]: maximal assist (25% patient effort), 2 person assist r equired, verbal cues required, tactile cues required Supine to Sit, Level of [place]: maximal assist (25% patient effort), verbal cues requ ired, tactile cues required Sit to Supine, Level of [place]: maximal assist (25% patient effort), verbal cues requ ired, tactile cues required, 2 person assist required Safety Issues: decreased use of legs for bridging/pushing, impaired trunk control for bed m obility Impairments: decreased flexibility, strength decreased, impaired balance, pain Transfers Not able to attempt d/t pt drop in BP eliminating out of bed activties. 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 Strength L UE Strength: 4+/5 R UE Strength: 4+/4 OT Goal Review Date Flowsheet Row Most Recent Value STG Review Date 12/25/16 at 12/28/2016 1636 UB Dressing Goal Flowsheet Row Most Recent Value STG Status continued, not addressed at 12/28/2016 1636 STG [place] Level supervised at 12/28/2016 1636 STG Adaptive Equipment none at 12/28/2016 1636 LB Dressing Goal Flowsheet Row Most Recent Value STG Status continued, not addressed at 12/28/2016 1636 STG [place] Level moderate assist (50% patient effort) at 12/28/2016 1636 STG Adaptive Equipment accountant auditor, sock-aid at 12/28/2016 1636 Toilet Transfer Goal Flowsheet Row Most Recent Value STG Status continued, not addressed at 12/28/2016 1636 STG [place] Level minimum assist (75% patient effort) at 12/28/2016 1636 STG Assistive Device commode (3 in 1), grab bars, 2 wheeled walker (FWW) at 12/27/2016 174 4 Electronically signed by: Cira Hurst OT, 12/28/2016 16:39 lan of Care - Taiwo Osorio PT - 12/28/2016 11:03 AM PDTFormatting of this note might be different from t pepe original. Problem: Patient Care Overview (Adult) Goal: Care Team Goals & Evaluation PROBLEM-RELATED GOALS: 1. Geovany will maintain adequate oxygenation via oximetry with SpO2 >90 by 12/31/2016. 2. Geovany will maintain CMS intact by 12/29/2016. 3. Geovany will report satisfactory pain control at a level less than 4/10 on a rating scale o f 0 to 10 12/29/2016. 4. Geovany will be free from falls/injuries by 12/29/2016. 5. Geovany will be min A for basic transfers and gait to chair beside bed with FWW by 01/04/20 17. 6. Geovany will maintain a patent airway and effective airway clearance by 12/28/2016. 7. Geovany will meet 75% of predicted incentive spirometer goal of 2250. STRATEGY TO ACHIEVE GOALS: 1. Monitor saturations via oximetry and titrate to order as indicated. 2. Monitor CMS as ordered and encourage pt to report any changes 3. Monitor pain and medicate as needed 4. Keep call light within reach at all times and encourage use 5. Staff to assist with transfers and gait as needed. 6. Perform airway clearance using vibratory PEP therapy. 7. Instruct patient how use of Incentive Spirometry and deep breath and cough. Nursing and Respiratory to work together to have patient use every hour while awake. Respiratory to 8. monitor progress 4 times daily until 75% goal met then turn over to nursing. Outcome: Unchanged Physical Therapy Plan of Care Treatment Note Summary: Patient seen as co-treatment with occupational therapy with focus on functional m obility, standing tolerance, sitting balance, lower extremity strengthening. Patient receiv ed in room supine in bed, agreeable to PT, however slow to respond to questions and required repeating, however some of that may be due to patient is very hard of hearing. Patient dem onstrated ability to do straight leg raises in bed, as well as knee bends and ankle pumps de monstrating sufficient strength to warrant edge of bed activities. Patient mobilize to edge of bed with moderate assist of 2 persons with a draw sheet to reduce shearing as patient's skin integrity is very fragile. Patient sat at edge of bed with bilateral upper extremity s upport, no loss of balance or complaints of dizziness or fatigue. He performed dynamic arm movements including washing his face, and also perform lower extremity exercises such as lisa rt arc quads, ankle pumps and marching. Patient sits with a hunched posture and required cu es to sit upright. Before progressing to standing patient blood pressure was assessed and f ound to have a drop in 11 points of diastolic blood pressure, although not demonstrating sym ptoms otherwise. Second blood pressure showed an additional drop of blood pressure, as well as low MAP, and therefore patient was returned supine in bed his legs were elevated and his head was angled down. BP improved to stable range in this position. RN present and indicat ed that he had had medications that may be affecting his blood pressure and that titration o f those medications may improve his ability to tolerate activities. Patient will benefit fr om continued skilled physical therapy to increase lower extremity strength, improve sitting and standing tolerance, practiced transfers, and begin gait training again. However upon re view of patient's recent history including falls at home, and durability of his this pa tient made to consider a assisted living facility with 24 hour 7 day a week assistance for h im to be safe. Physical Therapy Discharge Recommendations are: Recommended discharge disposition: fpc facility Post discharge physical therapy recommendation: minimum 5 days of therapy/week, will benef it from structured setting Equipment Recommendations: 2 wheeled walker (FWW), wheelchair, wheelchair cushion Planned Interventions: balance training, bed mobility training, gait training, home exerci se program, patient/family education, orthotic fitting/training, transfer training, wheelcha ir management/propulsion training, ROM (Range of Motion), stair training, strengthening Recommended Frequency: daily Patient Status/Goals: Reflects last filed data and may be from multiple contributors. Gait Unable to assess due to patient drop blood pressure making hymns unsafe to do out of bed ac tivities. Transfers Unable to assess due to patient drop in blood pressure making him unsafe to attempt out of bed activities. Sit-Stand, Level of [place]: 2 person assist required, verbal cues required Stand-Sit, Level of [place]: 2 person assist required, verbal cues required Dyv-[id number]-Odr, Assistive Device: other (see comments) (Sanam Travis) Impairments: pain, strength decreased, decreased flexibility, impaired balance, postural co ntrol impaired Bed Mobility 2 person mod assist drawsheet, however patient demonstrates antigravity movements with lowe r teres and upper extremities. Assistive Device: HOB elevated, draw sheet Scoot/Bridge, Level of [place]: moderate assist (50% patient effort), 2 person assist required, verbal cues required, tactile cues required Supine to Sit, Level of [place]: moderate assist (50% patient effort), verbal cues req uired, tactile cues required, 2 person assist required Sit to Supine, Level of [place]: moderate assist (50% patient effort), verbal cues req uired, tactile cues required, 2 person assist required Safety Issues: decreased use of legs for bridging/pushing, impaired trunk control for bed m obility Impairments: decreased flexibility, strength decreased, impaired balance, pain Therapeutic Exercise Partial sit <> stand x 2 at Sanam Steady (with 2-3 person assist, raised bed height, and usi ng pads under buttocks to help facilitate ease of sit <> stand) Bed exercises: bilateral, ankle pumps, quad sets, short arc quads Repetitions: 10 Seated exercises: bilateral, marching, long arc quads Repetitions: Static and dynamic sitting balance tolerance, 15 minutes Functional Endurance Pt tolerated full standing position x 10 seconds ROM BLEs unable to move actively through full range, pt reports pain in knees prevents movement at this time Strength Unable to formally assess BLE mms however he is able to support full body weight against gr avity x 10 seconds (.) PT Goal Review Date Flowsheet Row Most Recent Value STG Review Date 01/03/17 at 12/27/2016 1450 Roll Left/Right Goal Flowsheet Row Most Recent Value STG Status not addressed at 12/28/2016 1103 STG [place] Level stand by assist at 12/20/2016 0915 Scoot/Bridge Goal Flowsheet Row Most Recent Value STG Status progressing at 12/28/2016 1103 STG [place] Level stand by assist at 12/20/2016 0915 Rfniqy-Quh-Carxqp Goal Flowsheet Row Most Recent Value STG Status progressing at 12/28/2016 1103 STG [place] Level stand by assist at 12/20/2016 0915 Nkvlaplbl-Xom-Kideywgae Goal Flowsheet Row Most Recent Value STG Status not addressed at 12/28/2016 1103 STG [place] Level stand by assist at 12/20/2016 0915 STG Assistive Device bed rails at 12/20/2016 0915 All Transfers Goal Flowsheet Row Most Recent Value STG Status not addressed at 12/28/2016 1103 STG [place] Level stand by assist, 1 person + 1 person to manage equipment at 017 1450 STG Assistive Device other (see Comments) [Sanam Travis] at 12/25/2016 1159 STG Comments Using Sanam Travis at 12/25/2016 1159 Gait Goal Flowsheet Row Most Recent Value STG Status not addressed at 12/28/2016 1103 STG [place] Level stand by assist at 12/20/2016 0915 STG Assistive Device 2 wheeled walker (FWW) at 12/20/2016 0915 STG Distance (feet) 10 at 12/20/2016 0915 Stair Goal Flowsheet Row Most Recent Value STG Status discontinued at 12/25/2016 1159 STG [place] Level -- [.] at 12/25/2016 1159 STG Assistive Device -- [.] at 12/25/2016 1159 STG Number of Stairs -- [.] at 12/25/2016 1159 Additional Goal #1 PT Flowsheet Row Most Recent Value STG Status not addressed at 12/28/2016 1103 STG Pt will tolerate standing at Sanam Stedy x 1min w/ supervision only at 12/25/2016 1159 LTG Status progressing at 12/26/2016 1402 Electronically signed by: Taiwo Mims, PT, 12/28/2016 12:31 lan of Care - Cira Mclean OT - 12/27/2016 5:46 PM PDTFormatting of this note might be different from t pepe original. Problem: Patient Care Overview (Adult) Goal: Care Team Goals & Evaluation PROBLEM-RELATED GOALS: 1. Geovany will maintain adequate oxygenation via oximetry with SpO2 >90 by 12/31/2016. 2. Geovany will maintain CMS intact by 12/29/2016. 3. Geovany will report satisfactory pain control at a level less than 4/10 on a rating scale o f 0 to 10 12/29/2016. 4. Geovany will be free from falls/injuries by 12/29/2016. 5. Geovany will be min A for basic transfers and gait to chair beside bed with FWW by 01/04/20 17. 6. Geovany will maintain a patent airway and effective airway clearance by 12/28/2016. 7. Geovany will meet 75% of predicted incentive spirometer goal of 2250. STRATEGY TO ACHIEVE GOALS: 1. Monitor saturations via oximetry and titrate to order as indicated. 2. Monitor CMS as ordered and encourage pt to report any changes 3. Monitor pain and medicate as needed 4. Keep call light within reach at all times and encourage use 5. Staff to assist with transfers and gait as needed. 6. Perform airway clearance using vibratory PEP therapy. 7. Instruct patient how use of Incentive Spirometry and deep breath and cough. Nursing and Respiratory to work together to have patient use every hour while awake. Respiratory to 8. monitor progress 4 times daily until 75% goal met then turn over to nursing. Outcome: Improving Occupational Therapy Plan of Care Treatment Note Summary: Pt encountered supine in bed. Performed AROM excercises c BUEs, x10 shoulder exte nsion, x 10 internal rotation and x10 external rotation. Pt engaged in standing to Sanam lamar c mod A in preperation for functional transfers. Pt stood for 10 seconds x3 trials. BP opped significant to 70/65. RN present and aware. Pt returned to supine in bed. Pt will bene fit from skilled OT services to increase ADL independence, activity tolerance, and functiona l mobility. Occupational Therapy Discharge Recommendations are: Recommended discharge disposition: fpc facility, [facility] terminal acute care facility Post discharge occupational therapy recommendation: (TBD) Equipment Recommendations: (TBD) Planned Interventions:ADL retraining, strengthening, transfer training Recommended Frequency: 5 times/wk Patient Status/Goals: Reflects last filed data and may be from multiple contributors. Therapeutic Exercise Shoulder exercises: bilateral, flexion, extension, internal rotation, external rotation, AB Duction, ADDuction Type of exercise: resistive, theraband Repetitions/ Resistance: 10 reps each exercise Elbow exercises: bilateral, flexion, pronation, extension, supination Wrist exercises: bilateral, flexion, extension Type of exercise: theraband Functional Endurance improving - fair Cognitive Mood/Behavior: calm, cooperative, behavior appropriate to situation Orientation: oriented x 4 Arousal Level: opens eyes spontaneously Speech: clear, spontaneous, logical Bed Mobility Dependent x 2P assist, utilized draw sheet. Assistive Device: draw sheet Supine to Sit, Level of [place]: 2 person assist required, verbal cues required Safety Issues: decreased use of legs for bridging/pushing, impaired trunk control for bed m obility Impairments: decreased flexibility, strength decreased, impaired balance Transfers Sanam travis in preperation for functional transfers, 3 trials x 10 seconds. Required mod A t o rise. 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 Strength L UE Strength: 4+/5 R UE Strength: 4+/4 OT Goal Review Date Flowsheet Row Most Recent Value STG Review Date 12/25/16 at 12/27/2016 1744 UB Dressing Goal Flowsheet Row Most Recent Value STG Status continued, not addressed at 12/27/2016 1744 STG [place] Level supervised at 12/27/2016 1744 STG Adaptive Equipment none at 12/27/2016 1744 LB Dressing Goal Flowsheet Row Most Recent Value STG Status continued, not addressed at 12/27/2016 1744 STG [place] Level moderate assist (50% patient effort) at 12/27/2016 1744 STG Adaptive Equipment accountant auditor, sock-aid at 12/27/2016 1744 Toilet Transfer Goal Flowsheet Row Most Recent Value STG Status continued at 12/27/2016 1744 STG [place] Level minimum assist (75% patient effort) at 12/27/2016 1744 STG Assistive Device commode (3 in 1), grab bars, 2 wheeled walker (FWW) at 12/27/2016 174 4 Electronically signed by: Cira Hurst OT, 12/27/2016 17:45 lan of Care - Domenica Ji, PT - 12/27/2016 2:50 PM PDT Problem: Patient Care Overview (Adult) Goal: Care Team Goals & Evaluation PROBLEM-RELATED GOALS: 1. Geovany will maintain adequate oxygenation via oximetry with SpO2 >90 by 12/31/2016. 2. Geovany will maintain CMS intact by 12/29/2016. 3. Geovany will report satisfactory pain control at a level less than 4/10 on a rating scale o f 0 to 10 12/29/2016. 4. Geovayn will be free from falls/injuries by 12/29/2016. 5. Geovany will be min A for basic transfers and gait to chair beside bed with FWW by 01/04/20 17. 6. Geovany will maintain a patent airway and effective airway clearance by 12/28/2016. 7. Geovany will meet 75% of predicted incentive spirometer goal of 2250. STRATEGY TO ACHIEVE GOALS: 1. Monitor saturations via oximetry and titrate to order as indicated. 2. Monitor CMS as ordered and encourage pt to report any changes 3. Monitor pain and medicate as needed 4. Keep call light within reach at all times and encourage use 5. Staff to assist with transfers and gait as needed. 6. Perform airway clearance using vibratory PEP therapy. 7. Instruct patient how use of Incentive Spirometry and deep breath and cough. Nursing and Respiratory to work together to have patient use every hour while awake. Respiratory to 8. monitor progress 4 times daily until 75% goal met then turn over to nursing. Outcome: Improving Physical Therapy Plan of Care Treatment Note Summary: Pt cleared to participate by nursing. Cotx between OT and PT. Pt kenneth tx well and demonstrated continued progress toward functional goals as evidenced by diminishing need for assist w/ sit>std transfer and increasing tolerance for wt bearing thru BLE's. Refer bel ow for details of functional levels. He continues to have strength deficits, balance impairm ents, high levels of pain w/ activity, high level of medical complexity and extremely fragil e skin w/ multiple wounds requiring we mobilize very carefully to prevent shearing during be d mob and transfers. Pt will benefit from continued PT interventions to promote increased in dependence w/ functional activities necessary for safe home discharge. He will likely requir e lengthy placement for ongoing therapeutic intervention in order to regain the level of fun ction necessary to return to his previous living environment. Physical Therapy Discharge Recommendations are: Recommended discharge disposition: fpc facility Post discharge physical therapy recommendation: minimum 5 days of therapy/week, will benef it from structured setting Equipment Recommendations: 2 wheeled walker (FWW), wheelchair, wheelchair cushion Planned Interventions: balance training, bed mobility training, gait training, home exerci se program, patient/family education, orthotic fitting/training, transfer training, wheelcha ir management/propulsion training, ROM (Range of Motion), stair training, strengthening Recommended Frequency: daily Patient Status/Goals: Reflects last filed data and may be from multiple contributors. Gait Inappropriate to assess at this time. Stairs Stairs not assessed at this time however pt does have stairs to access home therefore sta ir training is indicated Transfers using Sanam Travis, pt was able to successfully achieve full standing position x 3 reps w/ mi n>mod A x 2, longest stand session was 10sec. Sit-Stand, Level of [place]: 2 person assist required, verbal cues required Stand-Sit, Level of [place]: 2 person assist required, verbal cues required Yco-Pddgx-Lce, Assistive Device: other (see comments) (Sanam Travis) Impairments: pain, strength decreased, decreased flexibility, impaired balance, postural co ntrol impaired Bed Mobility Continue to use drawsheet to assist pt to eob, returned to supine w/o draw sheet, dependent for trunk and legs Assistive Device: draw sheet Supine to Sit, Level of [place]: 2 person assist required, verbal cues required Sit to Supine, Level of [place]: (2-3 person assist w/o use of draw sheet) Safety Issues: decreased use of legs for bridging/pushing, impaired trunk control for bed m obility Impairments: decreased flexibility, strength decreased, impaired balance Functional Endurance Pt tolerated full standing position x 10 seconds ROM BLEs unable to move actively through full range, pt reports pain in knees prevents movement at this time Strength Unable to assess formally however he is able to take full weight bilaterally x 10seconds PT Goal Review Date Flowsheet Row Most Recent Value STG Review Date 01/03/17 at 12/27/2016 1450 Roll Left/Right Goal Flowsheet Row Most Recent Value STG Status not addressed at 12/27/2016 1450 STG [place] Level stand by assist at 12/20/2016 0915 Scoot/Bridge Goal Flowsheet Row Most Recent Value STG Status progressing at 12/27/2016 1450 STG [place] Level stand by assist at 12/20/2016 0915 Hupcvf-Wsj-Mdjcgk Goal Flowsheet Row Most Recent Value STG Status progressing at 12/27/2016 1450 STG [place] Level stand by assist at 12/20/2016 0915 Ztgwnuasv-Nkz-Usjafoyns Goal Flowsheet Row Most Recent Value STG Status not addressed at 12/27/2016 1450 STG [place] Level stand by assist at 12/20/2016 0915 STG Assistive Device bed rails at 12/20/2016 0915 All Transfers Goal Flowsheet Row Most Recent Value STG Status met, revised at 12/27/2016 1450 STG [place] Level stand by assist, 1 person + 1 person to manage equipment at 017 1450 STG Assistive Device other (see Comments) [Sanam Travis] at 12/25/2016 1159 STG Comments Using Sanam Travis at 12/25/2016 1159 Gait Goal Flowsheet Row Most Recent Value STG Status not addressed at 12/27/2016 1450 STG [place] Level stand by assist at 12/20/2016 0915 STG Assistive Device 2 wheeled walker (FWW) at 12/20/2016 0915 STG Distance (feet) 10 at 12/20/2016 0915 Stair Goal Flowsheet Row Most Recent Value STG Status discontinued at 12/25/2016 1159 STG [place] Level -- [.] at 12/25/2016 1159 STG Assistive Device -- [.] at 12/25/2016 1159 STG Number of Stairs -- [.] at 12/25/2016 1159 Additional Goal #1 PT Flowsheet Row Most Recent Value STG Status progressing at 12/27/2016 1450 STG Pt will tolerate standing at Sanam Stedy x 1min w/ supervision only at 12/25/2016 1159 LTG Status progressing at 12/26/2016 1402 Electronically signed by: Domenica Griffith, PT, 12/27/2016 17:15 lan of Care - Hodan Whipple RN - 12/27/2016 6:07 AM PDTProblem: Patient Care Overview (Adult) Goal: Care Team Goals & Evaluation PROBLEM-RELATED GOALS: 1. Geovany will maintain adequate oxygenation via oximetry with SpO2 >90 by 12/31/2016. 2. Geovany will maintain CMS intact by 12/29/2016. 3. Geovany will report satisfactory pain control at a level less than 4/10 on a rating scale o f 0 to 10 12/29/2016. 4. Geovany will be free from falls/injuries by 12/29/2016. 5. Geovany will be min A for basic transfers and gait to chair beside bed with FWW by 01/04/20 17. 6. Geovany will maintain a patent airway and effective airway clearance by 12/28/2016. 7. Geovany will meet 75% of predicted incentive spirometer goal of 2250. STRATEGY TO ACHIEVE GOALS: 1. Monitor saturations via oximetry and titrate to order as indicated. 2. Monitor CMS as ordered and encourage pt to report any changes 3. Monitor pain and medicate as needed 4. Keep call light within reach at all times and encourage use 5. Staff to assist with transfers and gait as needed. 6. Perform airway clearance using vibratory PEP therapy. 7. Instruct patient how use of Incentive Spirometry and deep breath and cough. Nursing and Respiratory to work together to have patient use every hour while awake. Respiratory to 8. monitor progress 4 times daily until 75% goal met then turn over to nursing. Outcome: Improving Goal Evaluation: A&O X 3, needs some re-orientation to date at times. VSS. Afib with rates in 100's-120's. S kin bruised with skin tears R/T fall throughout body. Hydrocolloid dressings intact to skin tears & bilateral hip incisions. Incisions well approximated, no signs or symptoms of infect ion. Minimal C/O pain to bilateral thighs. Oxycodone 5 mg X 2 this shift for pain relief. lan of Care - Stru ck, Kasey Winchester OT - 12/26/2016 4:28 PM PDTFormatting of this note might be different from t he original. Problem: Patient Care Overview (Adult) Goal: Care Team Goals & Evaluation PROBLEM-RELATED GOALS: 1. Dora will maintain adequate oxygenation via oximetry with SpO2 >90 by 12/27/16. 2. Geovany will maintain CMS intact by 12/27 3. Pt will report pain at stated goal by 12/27 4. Pt will be free from falls/injuries by 12/27 5. Geovany will be min A for basic transfers and gait to chair beside bed with FWW by 12-26-16 6. Dora will maintain a patent airway and effective airway clearance by 12/27/16. 7. Geovany will meet 75% of predicted incentive spirometer goal of 2250. STRATEGY TO ACHIEVE GOALS: 1.Monitor saturations via oximetry and titrate to order as indicated. 2. Monitor CMS as ordered and encourage pt to report any changes 3. Monitor pain and medicate as needed 4. Keep call light within reach at all times and encourage use -staff to assist with transfers and gait as needed. Perform airway clearance using vibratory PEP therapy. - Instruct patient how use of Incentive Spirometry and deep breath and cough. Nursing and Respiratory to work together to have patient use every hour while awake. Respiratory to mon itor progress 4 times daily until 75% goal met then turn over to nursing. Occupational Therapy Plan of Care Treatment Note Summary: PT engaged in therex with yellow theraband - significant improvements noted with strength- activity tolerance improving. Co-tx with PT- sat pt on edge of bed, and stood wit h Sanam Steady- Pt stated that it hurt a lot less than he thought it would. Therex with LUCILA marrero ftkendal this - pt stated he feels he is doing better and glad to be able to move more Occupational Therapy Discharge Recommendations are: Recommended discharge disposition: fpc facility, manager terminal acute care facility Post discharge occupational therapy recommendation: pt is motivated participant, minimum 5 therapy days/week, will benefit from structured setting, ongoing low intensity therapy Equipment Recommendations: (TBD) Planned Interventions:ADL retraining, strengthening, transfer training Recommended Frequency: 5 times/wk Patient Status/Goals: Reflects last filed data and may be from multiple contributors. Therapeutic Exercise Shoulder exercises: bilateral, flexion, extension, internal rotation, external rotation, AB Duction, ADDuction Type of exercise: resistive, theraband Repetitions/ Resistance: 15 reps each exercise Elbow exercises: bilateral, flexion, pronation, extension, supination Wrist exercises: bilateral, flexion, extension Type of exercise: theraband Functional Endurance improving - fair OT Goal Review Date Flowsheet Row Most Recent Value STG Review Date 12/25/16 at 12/26/2016 1615 UB Dressing Goal Flowsheet Row Most Recent Value STG Status continued, not addressed at 12/26/2016 1615 STG [place] Level supervised at 12/26/2016 1615 STG Adaptive Equipment none at 12/26/2016 1615 LB Dressing Goal Flowsheet Row Most Recent Value STG Status continued, not addressed at 12/26/2016 1615 STG [place] Level moderate assist (50% patient effort) at 12/26/2016 1615 STG Adaptive Equipment accountant auditor, sock-aid at 12/26/2016 1615 Toilet Transfer Goal Flowsheet Row Most Recent Value STG Status continued at 12/26/2016 1615 STG [place] Level minimum assist (75% patient effort) at 12/26/2016 1615 STG Assistive Device commode (3 in 1), grab bars, 2 wheeled walker (FWW) at 12/26/2016 161 5 Electronically signed by: Kasey Jama OT, 12/26/2016 16:27 [facility] Catherine stokes, PT - 12/26/2016 1:50 PM PDT Problem: Patient Care Overview (Adult) Goal: Care Team Goals & Evaluation PROBLEM-RELATED GOALS: 1. Dora will maintain adequate oxygenation via oximetry with SpO2 >90 by 12/27/16. 2. Geovany will maintain CMS intact by 12/27 3. Pt will report pain at stated goal by 12/27 4. Pt will be free from falls/injuries by 12/27 5. Geovany will be min A for basic transfers and gait to chair beside bed with FWW by 12-26-16 6. Dora will maintain a patent airway and effective airway clearance by 12/27/16. 7. Geovany will meet 75% of predicted incentive spirometer goal of 2250. STRATEGY TO ACHIEVE GOALS: 1.Monitor saturations via oximetry and titrate to order as indicated. 2. Monitor CMS as ordered and encourage pt to report any changes 3. Monitor pain and medicate as needed 4. Keep call light within reach at all times and encourage use -staff to assist with transfers and gait as needed. Perform airway clearance using vibratory PEP therapy. - Instruct patient how use of Incentive Spirometry and deep breath and cough. Nursing and Respiratory to work together to have patient use every hour while awake. Respiratory to mon itor progress 4 times daily until 75% goal met then turn over to nursing. Outcome: Improving Physical Therapy Plan of Care Treatment Note Summary: Pt cleared to participate w/ PT by nursing. Treatment completed in conjunction [facility] OT. Pt kenneth tx well and demonstrated significant improvement in medical condition, allowin g him to participate w/ therapies. He demonstrated progress toward goals as evidenced by inc reased tolerance for sitting and being able to perform partial sit <> stand x 2 with 2-3 per son assist and use of Sanam Stedy. Pt continues to present w/ diminished strength and ROM t/o his BLE, balance impairments and diminished functional activity tolerance as well as pain w / movement of BLE's. Vital Signs: Supine: BP 99/72. HR 114 Sitting: BP 94/83, HR 139 Sitting after 1st standing trial: BP 100/59, HR 147 Sitting after 2nd standing trial: BP 98/76, HR 147 Upon return to supine: BP 106/76, HR 119 Sp02 90-93% during most of session but with Sp02 transiently decreasing to 84% at the lowes t with mobility. At this point his mobility remains severely impaired and he will likely require short term rehab at SNF for some time w/ comprehensive therapy services to promote increased independen ce w/ activities necessary to allow for safe home discharge. Physical Therapy Discharge Recommendations are: Recommended discharge disposition: fpc facility Post discharge physical therapy recommendation: minimum 5 days of therapy/week, will benef it from structured setting Equipment Recommendations: 2 wheeled walker (FWW), wheelchair, wheelchair cushion Planned Interventions: balance training, bed mobility training, gait training, home exerci se program, patient/family education, orthotic fitting/training, transfer training, wheelcha ir management/propulsion training, ROM (Range of Motion), stair training, strengthening Recommended Frequency: daily Patient Status/Goals: Reflects last filed data and may be from multiple contributors. Gait Pt unable to take steps at this time. Transfers Used Sanam Stedy and raised bed height to facilitate ease of sit <> stand transfer. Instruct ed pt to pull self up at the same time that PT and OT assisted with drawsheet under buttocks . Pt only able to achieve partial stand; stood jerri. 15 sec during both trials and required s eated rest between. Sit-Stand, Level of [place]: 2 person assist required, verbal cues required Stand-Sit, Level of [place]: 2 person assist required, verbal cues required [id number]-Wgf, Assistive Device: other (see comments) (Sanam Stedy) Impairments: pain, strength decreased, decreased flexibility, impaired balance, postural c ontrol impaired Bed Mobility Used HOB elevated and draw sheet to assist pt with sit <> supine and scooting in bed. Supine to Sit, Level of [place]: 2 person assist required, verbal cues required (2-3 p erson assist for comfort) Sit to Supine, Level of [place]: 2 person assist required, verbal cues required (2-3 p erson assist for comfort) Safety Issues: decreased use of legs for bridging/pushing, impaired trunk control for bed m obility Impairments: decreased flexibility, strength decreased, impaired balance Balance Therapeutic Exercise Partial sit <> stand x 2 at Sanam Steady (with 2-3 person assist, raised bed height, and usi ng pads under buttocks to help facilitate ease of sit <> stand) Bed exercises: bilateral, ankle pumps, AAROM, heel slides Repetitions: x 10 each Functional Endurance Impaired but improving. Most limited due to pain and weakness. PT Goal Review Date Flowsheet Row Most Recent Value STG Review Date 12/27/16 at 12/20/2016 0915 Roll Left/Right Goal Flowsheet Row Most Recent Value STG Status not addressed at 12/25/2016 1159 STG [place] Level stand by assist at 12/20/2016 0915 Scoot/Bridge Goal Flowsheet Row Most Recent Value STG Status progressing at 12/26/2016 1402 STG [place] Level stand by assist at 12/20/2016 0915 Qhgari-Cqr-Rvfpih Goal Flowsheet Row Most Recent Value STG Status progressing at 12/26/2016 1402 STG [place] Level stand by assist at 12/20/2016 0915 Swpynypbq-Fdr-Mngrleriz Goal Flowsheet Row Most Recent Value STG Status not addressed at 12/26/2016 1402 STG [place] Level stand by assist at 12/20/2016 0915 STG Assistive Device bed rails at 12/20/2016 0915 All Transfers Goal Flowsheet Row Most Recent Value STG Status progressing at 12/26/2016 1402 STG [place] Level moderate assist (50% patient effort), 2 person assist required at 0 12/25/2016 1159 STG Assistive Device other (see Comments) [Sanam Stedy] at 12/25/2016 1159 STG Comments Using Sanam Stedy at 12/25/2016 1159 Gait Goal Flowsheet Row Most Recent Value STG Status not addressed at 12/26/2016 1402 STG [place] Level stand by assist at 12/20/2016 0915 STG Assistive Device 2 wheeled walker (FWW) at 12/20/2016 0915 STG Distance (feet) 10 at 12/20/2016 0915 Stair Goal Flowsheet Row Most Recent Value STG Status discontinued at 12/25/2016 1159 STG [place] Level -- [.] at 12/25/2016 1159 STG Assistive Device -- [.] at 12/25/2016 1159 STG Number of Stairs -- [.] at 12/25/2016 1159 Additional Goal #1 PT Flowsheet Row Most Recent Value STG Status new at 12/25/2016 1159 STG Pt will tolerate standing at Sanam Stedy x 1min w/ supervision only at 12/25/2016 1159 LTG Status progressing at 12/26/2016 1402 Electronically signed by: Catherine Manzo, PT, 12/26/2016 14:22 lan of Care - Francisco Parker RRT - 12/26/2016 6:39 AM PDTProblem: Patient Care Overview (Adult) Goal: Care Team Goals & Evaluation PROBLEM-RELATED GOALS: 1. Dora will maintain adequate oxygenation via oximetry with SpO2 >90 by 12/27/16. 2. Geovany will maintain CMS intact by 12/27 3. Pt will report pain at stated goal by 12/27 4. Pt will be free from falls/injuries by 12/27 5. Geovany will be min A for basic transfers and gait to chair beside bed with FWW by 12-26-16 6. Dora will maintain a patent airway and effective airway clearance by 12/27/16. 7. Geovany will meet 75% of predicted incentive spirometer goal of 2250. STRATEGY TO ACHIEVE GOALS: 1.Monitor saturations via oximetry and titrate to order as indicated. 2. Monitor CMS as ordered and encourage pt to report any changes 3. Monitor pain and medicate as needed 4. Keep call light within reach at all times and encourage use -staff to assist with transfers and gait as needed. Perform airway clearance using vibratory PEP therapy. - Instruct patient how use of Incentive Spirometry and deep breath and cough. Nursing and Respiratory to work together to have patient use every hour while awake. Respiratory to mon itor progress 4 times daily until 75% goal met then turn over to nursing. Outcome: Unchanged Goal Evaluation: SpO2: 96 % on 2liters/minute nasal cannula. Patient did not need PRN. Does PEP well but do es not like IS. lan of Care - Melony Day RN - 12/26/2016 5:06 AM PDTProblem: Patient Care Overview (Adult) Goal: Care Team Goals & Evaluation PROBLEM-RELATED GOALS: 1. Dora will maintain adequate oxygenation via oximetry with SpO2 >90 by 12/27/16. 2. Geovany will maintain CMS intact by 12/27 3. Pt will report pain at stated goal by 12/27 4. Pt will be free from falls/injuries by 12/27 5. Geovany will be min A for basic transfers and gait to chair beside bed with FWW by 12-26-16 6. Dora will maintain a patent airway and effective airway clearance by 12/27/16. 7. Geovany will meet 75% of predicted incentive spirometer goal of 2250. STRATEGY TO ACHIEVE GOALS: 1.Monitor saturations via oximetry and titrate to order as indicated. 2. Monitor CMS as ordered and encourage pt to report any changes 3. Monitor pain and medicate as needed 4. Keep call light within reach at all times and encourage use -staff to assist with transfers and gait as needed. Perform airway clearance using vibratory PEP therapy. - Instruct patient how use of Incentive Spirometry and deep breath and cough. Nursing and Respiratory to work together to have patient use every hour while awake. Respiratory to mon itor progress 4 times daily until 75% goal met then turn over to nursing. Goal Evaluation: AAOx3, slightly off on time of day, easily reoriented. Medicated with Oxycodone for pain r /t fractures. Atrial fib, HR 105-120s, up to 140s with activity. SBP 90-120. H/H 9.6 and 28. 8. On 2 L of O2. LS diminished/clear. Has diuresed 2400 ml of urine since receiving dose of Lasix yesterday afternoon. Had 1 loose green/brown stool. Dressings to wounds/incisions all changed at least once due to moderate amts of serous drainage. Picc line to RUE very positi onal, all lines flushed. Protime 25.2, INR 2.22. [facility] 12/25/2016 4:37 PM PDT Problem: Patient Care Overview (Adult) Goal: Care Team Goals & Evaluation PROBLEM-RELATED GOALS: 1. Dora will maintain adequate oxygenation via oximetry with SpO2 >90 by 12/27/16. 2. Geovany will maintain CMS intact by 12/20 3. Pt will report pain at stated goal by 12/23 4. Pt will be free from falls/injuries by 12/23 5. Geovany will be min A for basic transfers and gait to chair beside bed with FWW by 12-26-16 6. Dora will maintain a patent airway and effective airway clearance by 12/27/16. 7. Geovany will meet 75% of predicted incentive spirometer goal of 2250. STRATEGY TO ACHIEVE GOALS: 1.Monitor saturations via oximetry and titrate to order as indicated. 2. Monitor CMS as ordered and encourage pt to report any changes 3. Monitor pain and medicate as needed 4. Keep call light within reach at all times and encourage use -staff to assist with transfers and gait as needed. Perform airway clearance using vibratory PEP therapy. - Instruct patient how use of Incentive Spirometry and deep breath and cough. Nursing and Respiratory to work together to have patient use every hour while awake. Respiratory to mon itor progress 4 times daily until 75% goal met then turn over to nursing. Occupational Therapy Plan of Care Treatment Note Summary: Pt has improved medically- Able to sit up in bed without his BP dropping. Engag ed in U there with yellow theraband 15 reps each exercise x 7 exercises for shoulder, elbo w and wrist. BP adequate, O2 sats in 90's with exception of 2 times, quickly recovered. No SOB noted with activity. Pt stated that he feels much better today. Conintues to need skil led thrapy to maximize funcion in bed mobility, transfers, and ADL's Occupational Therapy Discharge Recommendations are: Recommended discharge disposition: fpc facility, fpc acute care facility Post discharge occupational therapy recommendation: pt is motivated participant, minimum 5 therapy days/week, will benefit from structured setting, ongoing low intensity therapy Equipment Recommendations: (TBD) Planned Interventions:ADL retraining, strengthening, transfer training Recommended Frequency: 5 times/wk Patient Status/Goals: Reflects last filed data and may be from multiple contributors. Therapeutic Exercise Shoulder exercises: bilateral, flexion, extension, internal rotation, external rotation, AB Duction, ADDuction Type of exercise: resistive, theraband (yellow) Repetitions/ Resistance: 15 reps each exercise Elbow exercises: bilateral, flexion, pronation, extension, supination Wrist exercises: bilateral, flexion, extension Type of exercise: theraband Functional Endurance improving - stated that the exercises did not challenge him too much Cognitive Mood/Behavior: calm, cooperative, behavior appropriate to situation Orientation: oriented x 4 Arousal Level: opens eyes spontaneously Speech: clear, spontaneous, logical OT Goal Review Date Flowsheet Row Most Recent Value STG Review Date 12/25/16 at 12/25/2016 1606 UB Dressing Goal Flowsheet Row Most Recent Value STG Status continued, not addressed at 12/25/2016 1606 STG [place] Level supervised at 12/25/2016 1606 STG Adaptive Equipment none at 12/25/2016 1606 LB Dressing Goal Flowsheet Row Most Recent Value STG Status continued, not addressed at 12/25/2016 1606 STG [place] Level moderate assist (50% patient effort) at 12/25/2016 1606 STG Adaptive Equipment accountant auditor, sock-aid at 12/25/2016 1606 Toilet Transfer Goal Flowsheet Row Most Recent Value STG Status continued at 12/25/2016 1606 STG [place] Level minimum assist (75% patient effort) at 12/25/2016 1606 STG Assistive Device commode (3 in 1), grab bars, 2 wheeled walker (FWW) at 12/25/2016 160 6 Electronically signed by: Kasey Jama OT, 12/25/2016 16:36 Goal Evaluation: lan of Care - Hyacinth Liriano, CELLO TEACHER - 12/25/2016 4:15 PM PDTFormatting of this note might be different from dena arredondo original. Problem: Patient Care Overview (Adult) Goal: Care Team Goals & Evaluation PROBLEM-RELATED GOALS: 1. Dora will maintain adequate oxygenation via oximetry with SpO2 >90 by 12/27/16. 2. Geovany will maintain CMS intact by 12/20 3. Pt will report pain at stated goal by 12/23 4. Pt will be free from falls/injuries by 12/23 5. Geovany will be min A for basic transfers and gait to chair beside bed with FWW by 12-26-16 6. Dora will maintain a patent airway and effective airway clearance by 12/27/16. STRATEGY TO ACHIEVE GOALS: 1.Monitor saturations via oximetry and titrate to order as indicated. 2. Monitor CMS as ordered and encourage pt to report any changes 3. Monitor pain and medicate as needed 4. Keep call light within reach at all times and encourage use -staff to assist with transfers and gait as needed. Perform airway clearance using vibratory PEP therapy. Outcome: Improving Goal Evaluation: Severity Score 4 Class 2 SpO2 91 % on nasal cannula at flow rate 1L/min Breath sounds are dim. Treatments changed to PRN and IS started. Severity Score 0-4 ITEM 0 1 2 3 4 0 Respiratory History No Smoking history Current tobacco use Up to 10 Pack year history. Simple home regimen Known Pulmonary Disease 20 pack year history Complex Home regimen 30+ pack year history Severe Pulmonary Disease or exacerbation 0 Surgery Status (current admission) No surgery Minor surgery Lower abdominal rib fractures Thoracic or uppe r abdominal Thoracic with pulmonary disease or Central Nervous System 2 Chest X-RAY Clear or Normal baseline Unavailable [...] Purse Lip Breathing, Use of accessory muscles 1 Breath Sounds Clear Diminished unilaterally Diminished bilaterally [...] follo ws commands Obtunded, uncooperative, sedated Comatose 1 Oxygen Demand Room air Baseline 1-2 liters 3-6 liters >7 Liters Oxymizer to > 55% 60% or greater Total Severity Score (SS) Class 0-3 1 4-7 2 8-11 3 12-14 4 15+ 5 lan of Care - Hyacinth Sexton RRT - 12/25/2016 2:18 PM PDT Problem: Patient Care Overview (Adult) Goal: Care Team Goals & Evaluation PROBLEM-RELATED GOALS: 1. Dora will maintain adequate oxygenation via oximetry with SpO2 >90 by 12/27/16. 2. Geovany will maintain CMS intact by 12/20 3. Pt will report pain at stated goal by 12/23 4. Pt will be free from falls/injuries by 12/23 5. Geovany will be min A for basic transfers and gait to chair beside bed with FWW by 12-26-16 6. Dora will maintain a patent airway and effective airway clearance by 12/27/16. STRATEGY TO ACHIEVE GOALS: 1.Monitor saturations via oximetry and titrate to order as indicated. 2. Monitor CMS as ordered and encourage pt to report any changes 3. Monitor pain and medicate as needed 4. Keep call light within reach at all times and encourage use -staff to assist with transfers and gait as needed. Perform airway clearance using vibratory PEP therapy. Outcome: Improving Goal Evaluation: Severity Score 3 Class 1 SpO2 91 % on nasal cannula at flow rate 2L/min Breath sound s are clear and dim. Changed neb frequency to Q4PRN. Severity Score 0-4 ITEM 0 1 2 3 4 0 Respiratory History No Smoking history Current tobacco use Up to 10 Pack year history. Simple home regimen Known Pulmonary Disease 20 pack year history Complex Home regimen 30+ pack year history Severe Pulmonary Disease or exacerbation 0 Surgery Status (current admission) No surgery Minor [...] Purse Lip Breathing, Use of accessory muscles 1 Breath Sounds Clear Diminished unilaterally Diminished bilaterally [...] follo ws commands Obtunded, uncooperative, sedated Comatose 1 Oxygen Demand Room air Baseline 1-2 liters 3-6 liters >7 Liters Oxymizer to > 55% 60% or greater Total Severity Score (SS) Class 0-3 1 4-7 2 8-11 3 12-14 4 15+ 5 lan of Care - Toribio Isabel RN - 12/25/2016 2:08 PM PDTRUA Picc White port with reduced flow. [place] and Red ports working good. Picc was redressed and resecured / repositioned PCXR ordered per MD. Prior to picc repositioning No ports would flow well. 1421 Repositioned Right Arm and all 3 ports flush well Blood draws easily from Red port. PCXR completed, 2RN's Viewed image, Waiting Radiologist read. lan of Care - Zandra Scales - 12/25/2016 11:22 AM PDTRe-faxed referral to [facility] Electronically signed by: Zandra Scales 12/25/2016 11:22 lan of [facility] - Raisa Griffith, PT - 12/25/2016 11:05 AM PDTFormatting of this note might be different from the origin al. Problem: Patient Care Overview (Adult) Goal: Care Team Goals & Evaluation PROBLEM-RELATED GOALS: 1. Dora will maintain adequate oxygenation via oximetry with SpO2 >90 by 12/27/16. 2. Geovany will maintain CMS intact by 12/20 3. Pt will report pain at stated goal by 12/23 4. Pt will be free from falls/injuries by 12/23 5. Geovany will be min A for basic transfers and gait to chair beside bed with FWW by 12-26-16 6. Dora will maintain a patent airway and effective airway clearance by 12/27/16. STRATEGY TO ACHIEVE GOALS: 1.Monitor saturations via oximetry and titrate to order as indicated. 2. Monitor CMS as ordered and encourage pt to report any changes 3. Monitor pain and medicate as needed 4. Keep call light within reach at all times and encourage use -staff to assist with transfers and gait as needed. Perform airway clearance using vibratory PEP therapy. Outcome: Improving Physical Therapy Plan of Care Treatment Note Summary: Pt cleared to participate w/ PT by nursing. Pt kenneth tx well and demonstrated signi ficant improvement in medical condition, allowing him to participate w/ therapies. He demons trated progress toward goals as evidenced by increased tolerance for sitting and improving m otor control in BLE's. Refer below for details of functional levels. He continues to present w/ diminished strength and ROM t/o his BLE, balance impairments and diminished functional a ctivity tolerance as well as pain w/ movement of BLE's. Vitals remained stable t/o: Supine: 120/61, hr 116 Sittin/82, hr 136 Sitting after 5min: 121/72, hr 127 At this point his mobility remains severely impaired and he will likely require placement f or some time w/ comprehensive therapy services to promote increased independence w/ activiti es necessary to allow for safe home discharge. Physical Therapy Discharge Recommendations are: Recommended discharge disposition: fpc facility Post discharge physical therapy recommendation: minimum 5 days of therapy/week, will benef it from structured setting Equipment Recommendations: 2 wheeled walker (FWW), wheelchair, wheelchair cushion Planned Interventions: balance training, bed mobility training, gait training, home exerci se program, patient/family education, orthotic fitting/training, transfer training, wheelcha ir management/propulsion training, ROM (Range of Motion), stair training, strengthening Recommended Frequency: daily Patient Status/Goals: Reflects last filed data and may be from multiple contributors. Gait Not appropriate to assess at this time Transfers NT d/t pt's condition, trialing chair mode in bed, no sling used to get pt to recliner d/t fragile nature of his skin at this time w/ high risk of shearing skin w/ sling. Bed Mobility Pt placed in chair mode in bed, able to bring upper trunk away from bed to sit unsupported although unable to achieve full unsupported sitting in this mode. Therapeutic Exercise AROM BUE's, reaching overhead w/ trunk supported against bed as well as reaching up and out to side w/ trunk partially unsupported. BLE knee extension 2x10 each side, increased diffic ulty w/ LLE. Pt only able to achieve 20-30deg of extension from his sitting position. Pt to lerated sitting in chair mode x 8min. Functional Endurance Improving however continues to fatigue easily although vitals remained relative stable t/o tx session ROM BLEs unable to move actively through full range,PROM limited by 30-50% at hips and knees Strength grossly 2-/5 BLEs PT Goal Review Date Flowsheet Row Most Recent Value STG Review Date 12/27/16 at 12/20/2016 0915 Roll Left/Right Goal Flowsheet Row Most Recent Value STG Status not addressed at 12/25/2016 1159 STG [place] Level stand by assist at 12/20/2016 0915 Scoot/Bridge Goal Flowsheet Row Most Recent Value STG Status not addressed at 12/25/2016 1159 STG [place] Level stand by assist at 12/20/2016 0915 Vzzujt-Whw-Gyeaja Goal Flowsheet Row Most Recent Value STG Status not addressed at 12/25/2016 1159 STG [place] Level stand by assist at 12/20/2016 0915 Dacfwxfax-Ckv-Xolweltfv Goal Flowsheet Row Most Recent Value STG Status not addressed at 12/25/2016 1159 STG [place] Level stand by assist at 12/20/2016 0915 STG Assistive Device bed rails at 12/20/2016 0915 All Transfers Goal Flowsheet Row Most Recent Value STG Status not addressed, revised at 12/25/2016 1159 STG [place] Level moderate assist (50% patient effort), 2 person assist required at 0 12/25/2016 1159 STG Assistive Device other (see Comments) [Sanam Thaddeus] at 12/25/2016 1159 STG Comments Using Sanam Travis at 12/25/2016 1159 Gait Goal Flowsheet Row Most Recent Value STG Status not addressed at 12/25/2016 1159 STG [place] Level stand by assist at 12/20/2016 0915 STG Assistive Device 2 wheeled walker (FWW) at 12/20/2016 0915 STG Distance (feet) 10 at 12/20/2016 0915 Additional Goal #1 PT Flowsheet Row Most Recent Value STG Status new at 12/25/2016 1159 STG Pt will tolerate standing at Sanam Stedy x 1min w/ supervision only at 12/25/2016 1159 Electronically signed by: Domenica Griffith, PT, 12/25/2016 12:08 lan of Care - Cassy Richard RN - 12/25/2016 6:15 AM PDTProblem: Patient Care Overview (Adult) Goal: Care Team Goals & Evaluation PROBLEM-RELATED GOALS: 1. Dora will maintain adequate oxygenation via oximetry with SpO2 >90 by 12/27/16. 2. Geovany will maintain CMS intact by 12/20 3. Pt will report pain at stated goal by 12/23 4. Pt will be free from falls/injuries by 12/23 5. Geovany will be min A for basic transfers and gait to chair beside bed with FWW by 12-26-16 6. Dora will maintain a patent airway and effective airway clearance by 12/27/16. STRATEGY TO ACHIEVE GOALS: 1.Monitor saturations via oximetry and titrate to order as indicated. 2. Monitor CMS as ordered and encourage pt to report any changes 3. Monitor pain and medicate as needed 4. Keep call light within reach at all times and encourage use -staff to assist with transfers and gait as needed. Perform airway clearance using vibratory PEP therapy. Outcome: Improving Goal Evaluation: Geovany is alert and oriented, gets oxycodone 10mg for bilateral leg pains VSS, has been off levophed since 1100 yesterday H/h stable, remains in afib, rates 90-110s, Has 2-3+ edema, scrotal edema, multiple skin tears to lower extremities, surgical incisions without s/s of infection lan of [facility] - Francisco Llanes RRT - 12/25/2016 5:42 AM PDTProblem: Patient Care Overview (Adult) Goal: Care Team Goals & Evaluation PROBLEM-RELATED GOALS: 1. Dora will maintain adequate oxygenation via oximetry with SpO2 >90 by 12/27/16. 2. Geovany will maintain CMS intact by 12/20 3. Pt will report pain at stated goal by 12/23 4. Pt will be free from falls/injuries by 12/23 5. Geovany will be min A for basic transfers and gait to chair beside bed with FWW by 12-26-16 6. Dora will maintain a patent airway and effective airway clearance by 12/27/16. STRATEGY TO ACHIEVE GOALS: 1.Monitor saturations via oximetry and titrate to order as indicated. 2. Monitor CMS as ordered and encourage pt to report any changes 3. Monitor pain and medicate as needed 4. Keep call light within reach at all times and encourage use -staff to assist with transfers and gait as needed. Perform airway clearance using vibratory PEP therapy. Outcome: Unchanged Goal Evaluation: SpO2: 94 % on 2liters/minute nasal cannula. Patient took treatments well and also did his PEP device well. lan of Care - Kasey Jama OT - 12/24/2016 8:40 PM PDTProblem: Patient Care Overview (Adult) Goal: Care Team Goals & Evaluation PROBLEM-RELATED GOALS: 1. Dora will maintain adequate oxygenation via oximetry with SpO2 >90 by 12/27/16. 2. Geovany will maintain CMS intact by 12/20 3. Pt will report pain at stated goal by 12/23 4. Pt will be free from falls/injuries by 12/23 5. Geovany will be min A for basic transfers and gait to chair beside bed with FWW by 12-26-16 6. Dora will maintain a patent airway and effective airway clearance by 12/27/16. STRATEGY TO ACHIEVE GOALS: 1.Monitor saturations via oximetry and titrate to order as indicated. 2. Monitor CMS as ordered and encourage pt to report any changes 3. Monitor pain and medicate as needed 4. Keep call light within reach at all times and encourage use -staff to assist with transfers and gait as needed. Perform airway clearance using vibratory PEP therapy. Goal Evaluation: Missed Visit Patient Information Patient Name: Dora Arellano Date of : 1930 Age: 86 y.o. The patient was unable to be seen for today's scheduled visit due to being too ill to parti cipate. Plan: will check with RN and MD tomorrow to assess if pt is appropriate for therapy Electronically signed by: Kasey Jama OT, 12/24/2016 20:39 lan of [facility] - Domenica Vela, PT - 12/24/2016 1:17 PM PDTProblem: Patient Care Overview (Adult) Goal: Care Team Goals & Evaluation PROBLEM-RELATED GOALS: 1. Dora will maintain adequate oxygenation via oximetry with SpO2 >90 by 12/27/16. 2. Geovany will maintain CMS intact by 12/20 3. Pt will report pain at stated goal by 12/23 4. Pt will be free from falls/injuries by 12/23 5. Geovany will be min A for basic transfers and gait to chair beside bed with FWW by 12-26-16 6. Dora will maintain a patent airway and effective airway clearance by 12/27/16. STRATEGY TO ACHIEVE GOALS: 1.Monitor saturations via oximetry and titrate to order as indicated. 2. Monitor CMS as ordered and encourage pt to report any changes 3. Monitor pain and medicate as needed 4. Keep call light within reach at all times and encourage use -staff to assist with transfers and gait as needed. Perform airway clearance using vibratory PEP therapy. Missed Visit Patient Information Patient Name: Dora Arellano Date of : 1930 Age: 86 y.o. The patient was unable to be seen for today's scheduled visit due to medical instability. C onsulted w/ RN who indicated pt appears to be too medically fragile to participate w/ therap ies at this time. Discussed possibility of nursing continuing to attempt chair mode in bed t o promote increased tolerance to vertical. Plan: Continue to attempt daily PT as able. Electronically signed by: Domenica Griffith PT, 12/24/2016 13:15 lan of Zandra Mcclelland - 12/24/2016 10:52 AM PDTFaxed referral to [facility]. CM will need to follow up with Dora closer to discharge. Dora is getting blood transfus ion today. Electronically signed by: Zandra Scales 12/24/2016 10:53 lan of Bertram Wiley RN - 12/24/2016 5:53 AM PDTProblem: Patient Care Overview (Adult) Goal: Care Team Goals & Evaluation PROBLEM-RELATED GOALS: 1. Dora will maintain adequate oxygenation via oximetry with SpO2 >90 by 12/27/16. 2. Geovany will maintain CMS intact by 12/20 3. Pt will report pain at stated goal by 12/23 4. Pt will be free from falls/injuries by 12/23 5. Geovany will be min A for basic transfers and gait to chair beside bed with FWW by 12-26-16 6. Dora will maintain a patent airway and effective airway clearance by 12/27/16. STRATEGY TO ACHIEVE GOALS: 1.Monitor saturations via oximetry and titrate to order as indicated. 2. Monitor CMS as ordered and encourage pt to report any changes 3. Monitor pain and medicate as needed 4. Keep call light within reach at all times and encourage use -staff to assist with transfers and gait as needed. Perform airway clearance using vibratory PEP therapy. Outcome: Improving Goal Evaluation: Mr. De La Fuentes temp has gone down to 37.2C. His dressings were changed last night. His wounds appear to look better. [place] intact. Still on levophed drip at 5. Pain was well controlle d allowing for restful sleep. Hgb decreased to 7.2 (night Hospitalist notified). [facility] to decided on whether to transfuse. lan of Care - Anitra Montoya, CELLO TEACHER - 12/24/2016 4:50 AM PDTProblem: Patient Care Overview (Adult) Goal: Care Team Goals & Evaluation PROBLEM-RELATED GOALS: 1. Dora will maintain adequate oxygenation via oximetry with SpO2 >90 by 12/27/16. 2. Geovany will maintain CMS intact by 12/20 3. Pt will report pain at stated goal by 12/23 4. Pt will be free from falls/injuries by 12/23 5. Geovany will be min A for basic transfers and gait to chair beside bed with FWW by 12-26-16 6. Dora will maintain a patent airway and effective airway clearance by 12/27/16. STRATEGY TO ACHIEVE GOALS: 1.Monitor saturations via oximetry and titrate to order as indicated. 2. Monitor CMS as ordered and encourage pt to report any changes 3. Monitor pain and medicate as needed 4. Keep call light within reach at all times and encourage use -staff to assist with transfers and gait as needed. Perform airway clearance using vibratory PEP therapy. Outcome: Improving Goal Evaluation: Breath sounds diminished with scatted crackles, and post-treatment wheezes. Continued need for Q4 treatments and PEP therapy. Electronically signed by: Anitra Montoya RRT 12/24/2016 4 :50 lan of Care - [facility] Kathie new RN - 12/23/2016 4:56 PM PDTProblem: Patient Care Overview (Adult) Goal: Care Team Goals & Evaluation PROBLEM-RELATED GOALS: 1. Dora will maintain adequate oxygenation via oximetry with SpO2 >90 by 12/22/16. 2. Geovany will maintain CMS intact by 12/20 3. Pt will report pain at stated goal by 12/23 4. Pt will be free from falls/injuries by 12/23 5. Geovany will be min A for basic transfers and gait to chair beside bed with FWW by 12-26-16 6. Dora will maintain a patent airway and effective airway clearance by 12/24/16. STRATEGY TO ACHIEVE GOALS: 1.Monitor saturations via oximetry and titrate to order as indicated. 2. Monitor CMS as ordered and encourage pt to report any changes 3. Monitor pain and medicate as needed 4. Keep call light within reach at all times and encourage use -staff to assist with transfers and gait as needed. Perform airway clearance using vibratory PEP therapy. Outcome: Improving Goal Evaluation: L1: S/P bilat femur fx and ORIF after fall at home. A & O x 4 w/ occasional forgetfulness. Easily reoriented. Remains on Levophed @ 5mcg/min. Aflutter HR 100-110s with bursts into 1 30s when in pain or coughing. Afebrile during shift today. 2L O2 via NC. Trying to give oxyc odone Q4H to keep ahead of pain and covering with IV fentanyl. All dressings changed at leas t once d/t serous drainage, particularly in lower extremities. Skin tears looking improved o sarahy the past few days. Full bed bath given. BLE edema R > L. H/H 7.7/23.3, continuing to mo nitor. Urine output minimal but adequate via velarde. No therapies today per MD. Patient levi holguin better day today than yesterday w/ regard to BP and pain control, so will attempt tomorrow . Family at bedside for a couple of hours today, and will return again tomorrow. Patient sta lizzie he is "feeling a little better". lan of Care - Domenica Lebron PT - 12/23/2016 10:28 AM PDTProblem: Patient Care Overview (Adult) Goal: Care Team Goals & Evaluation PROBLEM-RELATED GOALS: 1. Dora will maintain adequate oxygenation via oximetry with SpO2 >90 by 12/22/16. 2. Geovany will maintain CMS intact by 12/20 3. Pt will report pain at stated goal by 12/23 4. Pt will be free from falls/injuries by 12/23 5. Geovany will be min A for basic transfers and gait to chair beside bed with FWW by 12-26-16 6. Dora will maintain a patent airway and effective airway clearance by 12/24/16. STRATEGY TO ACHIEVE GOALS: 1.Monitor saturations via oximetry and titrate to order as indicated. 2. Monitor CMS as ordered and encourage pt to report any changes 3. Monitor pain and medicate as needed 4. Keep call light within reach at all times and encourage use -staff to assist with transfers and gait as needed. Perform airway clearance using vibratory PEP therapy. Missed Visit Patient Information Patient Name: Dora Arellano Date of : 1930 Age: 86 y.o. The patient was unable to be seen for today's scheduled visit as he continues to be medical ly unstable at this time and MD requests therapies be held again today w/ increasing potenti al for PT intervention tomorrow. Plan: Will attempt cotx w/ OT tomorrow in attempts to facilitate at least chair mode in bed or dangle. Electronically signed by: Domenica Griffith, PT, 12/23/2016 10:27 lan of Care - Kasey Jama OT - 12/23/2016 9:12 AM PDTProblem: Patient Care Overview (Adult) Goal: Care Team Goals & Evaluation PROBLEM-RELATED GOALS: 1. Dora will maintain adequate oxygenation via oximetry with SpO2 >90 by 12/22/16. 2. Geovany will maintain CMS intact by 12/20 3. Pt will report pain at stated goal by 12/23 4. Pt will be free from falls/injuries by 12/23 5. Geovany will be min A for basic transfers and gait to chair beside bed with FWW by 12-26-16 6. Dora will maintain a patent airway and effective airway clearance by 12/24/16. STRATEGY TO ACHIEVE GOALS: 1.Monitor saturations via oximetry and titrate to order as indicated. 2. Monitor CMS as ordered and encourage pt to report any changes 3. Monitor pain and medicate as needed 4. Keep call light within reach at all times and encourage use -staff to assist with transfers and gait as needed. Perform airway clearance using vibratory PEP therapy. Missed Visit Patient Information Patient Name: Dora Arellano Date of : 1930 Age: 86 y.o. The patient was unable to be seen for today's scheduled visit due to MD and RN wanting to h old therapies today. Plan: to attempt tomorrow Electronically signed by: Kasey Jama OT, 12/23/2016 9:11 lan of Care - Filemon Hess RN - 12/23/2016 7:36 AM PDTProblem: Patient Care Overview (Adult) Goal: Care Team Goals & Evaluation PROBLEM-RELATED GOALS: 1. Dora will maintain adequate oxygenation via oximetry with SpO2 >90 by 12/22/16. 2. Geovany will maintain CMS intact by 12/20 3. Pt will report pain at stated goal by 12/23 4. Pt will be free from falls/injuries by 12/23 5. Geovany will be min A for basic transfers and gait to chair beside bed with FWW by 12-26-16 6. Dora will maintain a patent airway and effective airway clearance by 12/24/16. STRATEGY TO ACHIEVE GOALS: 1.Monitor saturations via oximetry and titrate to order as indicated. 2. Monitor CMS as ordered and encourage pt to report any changes 3. Monitor pain and medicate as needed 4. Keep call light within reach at all times and encourage use -staff to assist with transfers and gait as needed. Perform airway clearance using vibratory PEP therapy. Outcome: Improving Goal Evaluation: Aflutter HR 100-110s with bursts into 130s when in pain or coughing. Tmax 38.1 at beginnin g of shift. On 2L NC. Trying to give oxycodone Q4H to keep ahead of pain and covering with I V fentanyl. All dressings changed at least once. Enough serous drainage from legs to require full bed change. Urine output increased during night, 495 ml out via velarde. Senna given, no BM yet. Bowel tones audible active x4 quadrants. lan of Care - Anitra De La Vega RRT - 12/23/2016 3:36 AM PDT Problem: Patient Care Overview (Adult) Goal: Care Team Goals & Evaluation PROBLEM-RELATED GOALS: 1. Dora will maintain adequate oxygenation via oximetry with SpO2 >90 by 12/22/16. 2. Geovany will maintain CMS intact by 12/20 3. Pt will report pain at stated goal by 12/23 4. Pt will be free from falls/injuries by 12/23 5. Geovany will be min A for basic transfers and gait to chair beside bed with FWW by 12-26-16 6. Dora will maintain a patent airway and effective airway clearance by 12/24/16. STRATEGY TO ACHIEVE GOALS: 1.Monitor saturations via oximetry and titrate to order as indicated. 2. Monitor CMS as ordered and encourage pt to report any changes 3. Monitor pain and medicate as needed 4. Keep call light within reach at all times and encourage use -staff to assist with transfers and gait as needed. Perform airway clearance using vibratory PEP therapy. Goal Evaluation: Severity Score 5 Class 2 Severity Score 0-4 ITEM 0 1 2 [...] with pulmonary disease or Central Nervous System 2 Chest X-RAY Clear or Normal baseline Unavailable [...] Purse Lip Breathing, Use of accessory muscles 2 Breath Sounds Clear Diminished unilaterally Diminished bilaterally [...] 4 15+ 5 lan of Care - Anitra De La Vega RRT - 12/23/2016 3:34 AM PDTProblem: Patient Care Overview (Adult) Goal: Care Team Goals & Evaluation PROBLEM-RELATED GOALS: 1. Dora will maintain adequate oxygenation via oximetry with SpO2 >90 by 12/22/16. 2. Geovany will maintain CMS intact by 12/20 3. Pt will report pain at stated goal by 12/23 4. Pt will be free from falls/injuries by 12/23 5. Geovany will be min A for basic transfers and gait to chair beside bed with FWW by 12-26-16 6. Dora will maintain a patent airway and effective airway clearance by 12/24/16. STRATEGY TO ACHIEVE GOALS: 1.Monitor saturations via oximetry and titrate to order as indicated. 2. Monitor CMS as ordered and encourage pt to report any changes 3. Monitor pain and medicate as needed 4. Keep call light within reach at all times and encourage use -staff to assist with transfers and gait as needed. Perform airway clearance using vibratory PEP therapy. Outcome: Improving Goal Evaluation: Breath sounds are improved since the initiation of neb treatments a nd PEP therapy, with some remaining scattered crackles in the bases. Continue to monitor for respiratory deterioration. Electronically signed by: Anitra Montoya RRT 12/23/2016 3:34 lan of Care - [facility] Kathie new RN - 12/22/2016 7:49 PM PDTProblem: Patient Care Overview (Adult) Goal: Care Team Goals & Evaluation PROBLEM-RELATED GOALS: 1. Dora will maintain adequate oxygenation via oximetry with SpO2 >90 by 12/22/16. 2. Geovany will maintain CMS intact by 12/20 3. Pt will report pain at stated goal by 12/23 4. Pt will be free from falls/injuries by 12/23 5. Geovany will be min A for basic transfers and gait to chair beside bed with FWW by 12-26-16 6. Dora will maintain a patent airway and effective airway clearance by 12/24/16. STRATEGY TO ACHIEVE GOALS: 1.Monitor saturations via oximetry and titrate to order as indicated. 2. Monitor CMS as ordered and encourage pt to report any changes 3. Monitor pain and medicate as needed 4. Keep call light within reach at all times and encourage use -staff to assist with transfers and gait as needed. Perform airway clearance using vibratory PEP therapy. Goal Evaluation: L1: S/P bilateral femur fx and ORIF after fall at home. A & O x 4, but occasionally forget ful and and confused about staff roles and schedule. Reorientation given. Consideration was made today to use sling to get patient up in chair, but increased pain and decreased blood pressure with bed in chair position deferred plan. MD at bedside at 1130 to evaluate patient . Pain better controlled this afternoon after 10 mg PO oxycodone and 50 mcg IV fentanyl. Lev ophed gtt restarted at 1145, currently at 5 mcg/min. Order received to transfuse 1 unit PRBC (H/H 7.8/23.4), but cancelled per MD. Follow up H/H pending. Right thigh u/s and chest x-ra y obtained. Remains in A flutter w/ rates 90-110. T max 38.1 at end of shift, PO acetaminoph en given. PO oxycodone 5 mg given again at 1730. Majority of skin tear dressings changed tod ay d/t serous drainage. Urine output minimal but adequate via velarde. KCl rider today d/t K 3 .3. BLE and scrotal edema. Family again at bedside today, but home tonight to return in the morning. Will continue to monitor and attempt mobilization. lan of Care - Kasey Jama OT - 12/22/2016 3:15 PM PDTProblem: Patient Care Overview (Adult) Goal: Care Team Goals & Evaluation PROBLEM-RELATED GOALS: 1. Dora will maintain adequate oxygenation via oximetry with SpO2 >90 by 12/22/16. 2. Geovany will maintain CMS intact by 12/20 3. Pt will report pain at stated goal by 12/23 4. Pt will be free from falls/injuries by 12/23 5. Geovany will be min A for basic transfers and gait to chair beside bed with FWW by 12-26-16 6. Dora will maintain a patent airway and effective airway clearance by 12/24/16. STRATEGY TO ACHIEVE GOALS: 1.Monitor saturations via oximetry and titrate to order as indicated. 2. Monitor CMS as ordered and encourage pt to report any changes 3. Monitor pain and medicate as needed 4. Keep call light within reach at all times and encourage use -staff to assist with transfers and gait as needed. Perform airway clearance using vibratory PEP therapy. Missed Visit Patient Information Patient Name: Dora Arellano Date of : 1930 Age: 86 y.o. The patient was unable to be seen for today's scheduled visit due to RN stated pt was levi g medical issues and was not appropriate for therapy today- asked to hold therapies today. Plan: attempt to see tomorrow Electronically signed by: Kasey Jama OT, 12/22/2016 23:35 lan of [place] - Salena Christianson, CELLO TEACHER - 12/22/2016 1:20 PM PDTProblem: Patient Care Overview (Adult) Goal: Care Team Goals & Evaluation PROBLEM-RELATED GOALS: 1. Dora will maintain adequate oxygenation via oximetry with SpO2 >90 by 12/22/16. 2. Geovany will maintain CMS intact by 12/20 3. Pt will report pain at stated goal by 12/23 4. Pt will be free from falls/injuries by 12/23 5. Geovany will be min A for basic transfers and gait to chair beside bed with FWW by 12-26-16 6. Dora will maintain a patent airway and effective airway clearance by 12/24/16. STRATEGY TO ACHIEVE GOALS: 1.Monitor saturations via oximetry and titrate to order as indicated. 2. Monitor CMS as ordered and encourage pt to report any changes 3. Monitor pain and medicate as needed 4. Keep call light within reach at all times and encourage use -staff to assist with transfers and gait as needed. Perform airway clearance using vibratory PEP therapy. Goal Evaluation: Geovany is resting supine semi meek position. O2 remains @ 2 lpm nc for SpO2 values of 92%. BS upon meeting him this morning were mildly coarse in upper airway anteriorly. Otherwise d im but clear throughout. Productive cough, thick secretions sometimes swallowed . Does well with PEP therapy.coughs well upon command. lan of [place] - Domenica Griffith, PT - 12/22/2016 11:53 AM PDTProblem: Patient Care Overview (Adult) Goal: Care Team Goals & Evaluation PROBLEM-RELATED GOALS: 1. Dora will maintain adequate oxygenation via oximetry with SpO2 >90 by 12/22/16. 2. Geovany will maintain CMS intact by 12/20 3. Pt will report pain at stated goal by 12/23 4. Pt will be free from falls/injuries by 12/23 5. Geovany will be min A for basic transfers and gait to chair beside bed with FWW by 12-26-16 6. Dora will maintain a patent airway and effective airway clearance by 12/24/16. STRATEGY TO ACHIEVE GOALS: 1.Monitor saturations via oximetry and titrate to order as indicated. 2. Monitor CMS as ordered and encourage pt to report any changes 3. Monitor pain and medicate as needed 4. Keep call light within reach at all times and encourage use -staff to assist with transfers and gait as needed. Perform airway clearance using vibratory PEP therapy. Missed Visit Patient Information Patient Name: Dora Arellano Date of : 1930 Age: 86 y.o. The patient was unable to be seen for today's scheduled visit due to change in medical stat us. Consulted w/ RN who requested therapies be held for the day. Plan: Will re-assess for therapies tomorrow. Electronically signed by: Domenica Griffith, PT, 12/22/2016 11:53 lan of Care - Filemon Fierro RN - 12/22/2016 6:07 AM PDTProblem: Patient Care Overview (Adult) Goal: Care Team Goals & Evaluation PROBLEM-RELATED GOALS: 1. Dora will maintain adequate oxygenation via oximetry with SpO2 >90 by 12/22/16. 2. Geovany will maintain CMS intact by 12/20 3. Pt will report pain at stated goal by 12/23 4. Pt will be free from falls/injuries by 12/23 5. Geovany will be min A for basic transfers and gait to chair beside bed with FWW by 12-26-16 6. Dora will maintain a patent airway and effective airway clearance by 12/24/16. STRATEGY TO ACHIEVE GOALS: 1.Monitor saturations via oximetry and titrate to order as indicated. 2. Monitor CMS as ordered and encourage pt to report any changes 3. Monitor pain and medicate as needed 4. Keep call light within reach at all times and encourage use -staff to assist with transfers and gait as needed. Perform airway clearance using vibratory PEP therapy. Goal Evaluation: SBP >90 or MAP >65 during night. Remains in Aflutter HR 90-110s. Tmax 38.3 at beginning of shift. No more tylenol given. On 2L NC. PRN oxycodone and fentanyl given for pain. Majority of dressings changed again. Swelling in legs decreased, scrotal edema increased. Urine outpu t minimal but adequate via velarde. lan of Care - Anitra De La Vega RRT - 12/22/2016 4:47 AM PDTProblem: Patient Care Overview (Adult) Goal: Care Team Goals & Evaluation PROBLEM-RELATED GOALS: 1. Dora will maintain adequate oxygenation via oximetry with SpO2 >90 by 12/22/16. 2. Geovany will maintain CMS intact by 12/20 3. Pt will report pain at stated goal by 12/23 4. Pt will be free from falls/injuries by 12/23 5. Geovany will be min A for basic transfers and gait to chair beside bed with FWW by 12-26-16 6. Dora will maintain a patent airway and effective airway clearance by 12/24/16. STRATEGY TO ACHIEVE GOALS: 1.Monitor saturations via oximetry and titrate to order as indicated. 2. Monitor CMS as ordered and encourage pt to report any changes 3. Monitor pain and medicate as needed 4. Keep call light within reach at all times and encourage use -staff to assist with transfers and gait as needed. Perform airway clearance using vibratory PEP therapy. Outcome: Unchanged Goal Evaluation: Breath sounds are diminished bilaterally with crackles in the bases. Encourage use of PEP f or recruitment. 2 liters nc 95%. Monitor for signs of respiratory deterioration. Electronica lly signed by: Anitra Montoya RRT 12/22/2016 4:47 lan of Care - Kathie Suero RN - 12/21/2016 6:32 PM PDTProblem: Patient Care Overview (Adult) Goal: Care Team Goals & Evaluation PROBLEM-RELATED GOALS: 1. Dora will maintain adequate oxygenation via oximetry with SpO2 >90 by 12/22/16. 2. Geovany will maintain CMS intact by 12/20 3. Pt will report pain at stated goal by 12/23 4. Pt will be free from falls/injuries by 12/23 5. Geovany will be min A for basic transfers and gait to chair beside bed with FWW by 12-26-16 6. Dora will maintain a patent airway and effective airway clearance by 12/24/16. STRATEGY TO ACHIEVE GOALS: 1.Monitor saturations via oximetry and titrate to order as indicated. 2. Monitor CMS as ordered and encourage pt to report any changes 3. Monitor pain and medicate as needed 4. Keep call light within reach at all times and encourage use -staff to assist with transfers and gait as needed. Perform airway clearance using vibratory PEP therapy. Goal Evaluation: SD: S/P bilateral femur fx and ORIF of R & L femur d/t ground level fall at home. On levo phed gtt most of day; off at 1615. SBP 88-90's, MAP >65. T max 38.2, Tylenol given. 2L O2 via NC. Other VSS. Received 1 unit PRBC 12/20. Oxycodone and fentanyl given for pain. Pt denies pain while still, but has significant pain w/ movement. Needs to be consistently med icated to be able to ambulate and participate in therapies. Multiple skin tears to bilateral arms and thighs. Dressings changed today. Urine output per velarde catheter adequate. Improv ing appetite. Family home to [place] this afternoon and will be back tomorrow. lan of Care - Domenica Lebron, PT - 12/21/2016 4:15 PM PDTProblem: Patient Care Overview (Adult) Goal: Care Team Goals & Evaluation PROBLEM-RELATED GOALS: 1. Dora will maintain adequate oxygenation via oximetry with SpO2 >90 by 12/22/16. 2. Geovany will maintain CMS intact by 12/20 3. Pt will report pain at stated goal by 12/23 4. Pt will be free from falls/injuries by 12/23 5. Geovany will be min A for basic transfers and gait to chair beside bed with FWW by 12-26-16 6. Dora will maintain a patent airway and effective airway clearance by 12/24/16. STRATEGY TO ACHIEVE GOALS: 1.Monitor saturations via oximetry and titrate to order as indicated. 2. Monitor CMS as ordered and encourage pt to report any changes 3. Monitor pain and medicate as needed 4. Keep call light within reach at all times and encourage use -staff to assist with transfers and gait as needed. Perform airway clearance using vibratory PEP therapy. Missed Visit Patient Information Patient Name: Dora Arellano Date of : 1930 Age: 86 y.o. The patient was unable to be seen for today's scheduled pm PT session as he continues to be too medically complex to participate well w/ PT. His treatment frequency has been adjusted to daily as he is inappropriate for BID PT sessions at this time however his frequency will be increased when he is medically able to tolerate it. Long discussion w/ RN re: pt's mobili ty status and medical condition w/ agreement that pt needs to mobilize CANDACE as he is at risk for multiple complications associated w/ prolonged bed rest. Plan: Will coordinate w/ RN tomorrow for transfer OOB to chair w/ overhead lift and possibl e attempt to stand from chair, likely using Sanam Stedy for assist. Electronically signed by: Domenica Griffith PT, 12/21/2016 16:12 lan of Care - Zenia Ch, CELLO TEACHER - 12/21/2016 3:51 PM PDTFormatting of this note might be different from the o riginal. Problem: Patient Care Overview (Adult) Goal: Care Team Goals & Evaluation PROBLEM-RELATED GOALS: 1. Dora will maintain adequate oxygenation via oximetry with SpO2 >90 by 12/22/16. 2. Geovany will maintain CMS intact by 12/20 3. Pt will report pain at stated goal by 12/23 4. Pt will be free from falls/injuries by 12/23 5. Geovany will be min A for basic transfers and gait to chair beside bed with FWW by 12-26-16 6. Dora will maintain a patent airway and effective airway clearance by 12/24/16. STRATEGY TO ACHIEVE GOALS: 1.Monitor saturations via oximetry and titrate to order as indicated. 2. Monitor CMS as ordered and encourage pt to report any changes 3. Monitor pain and medicate as needed 4. Keep call light within reach at all times and encourage use -staff to assist with transfers and gait as needed. Perform airway clearance using vibratory PEP therapy. Outcome: Unchanged Goal Evaluation: Geovany continues to be febrile. PEP ordered and instructed. Geovany has excellent technique a nd states he is using it on his own. He drops off to sleep easily, lightly snoring with out apnea. BS clear diminished, good cough. RT will continue to monitor and titrate O2 off as able and encourage DB and Cough. Severity Score 6 Class Severity Score 0-4 ITEM 0 1 2 [...] with pulmonary disease or Central Nervous System 3 Chest X-RAY Clear or Normal baseline Unavailable [...] or Rhonchi &/or absent unilateral Absent bilaterally 1 Cough Strong, non productive Moderate, loose, productive Weak, non-productive Weak, ineffective Non-spontaneous or may require suctioning 0 Sputum None Scant / Thin White/clear Moderate Beige/ yellow Large / Thick Dark Green/Brown Copious / Plugs Hemoptysis compa 0 LOC Alert, oriented, cooperative Disoriented, follows commands Obtunded, arousable, follo ws commands Obtunded, uncooperative, sedated Comatose 1 Oxygen Demand Room air Baseline 1-2 liters 3-6 liters >7 Liters Oxymizer to > 55% 60% or greater Total Severity Score (SS) Class 0-3 1 4-7 2 8-11 3 12-14 4 15+ 5 lan of [place] - Kasey Jama OT - 12/21/2016 2:35 PM PDT Problem: Patient Care Overview (Adult) Goal: Care Team Goals & Evaluation PROBLEM-RELATED GOALS: 1. Dora will maintain adequate oxygenation via oximetry with SpO2 >90 by 12/22/16. 2. Geovany will maintain CMS intact by 12/20 3. Pt will report pain at stated goal by 12/23 4. Pt will be free from falls/injuries by 12/23 5. Geovany will be min A for basic transfers and gait to chair beside bed with FWW by 12-26-16 STRATEGY TO ACHIEVE GOALS: 1.Monitor saturations via oximetry and titrate to order as indicated. 2. Monitor CMS as ordered and encourage pt to report any changes 3. Monitor pain and medicate as needed 4. Keep call light within reach at all times and encourage use -staff to assist with transfers and gait as needed. Occupational Therapy Plan of Care Initial Evaluation Note Summary: Pt seen for initial evaluation. Pt demonstrates good strength in both arms, sens ation is intact B UE. Pt displays significant mobility issues due to the bilateral femural fractures and pain from them. Pt is unable to safely and independently care for himself at this time. Is in need of continued skilled therapy to improve his independence in his ADL's and transfers. Pt would ultimately like to discharge home but is also aware of his current challenges. Occupational Therapy Discharge Recommendations are: Recommended discharge disposition: fpc facility, fpc acute care facility Post discharge occupational therapy recommendation: ongoing low intensity therapy, pt is m otivated participant, minimum 5 therapy days/week Equipment Recommendations: (TBD) Planned Interventions:ADL retraining, strengthening, transfer training Recommended Frequency: 5 times/wk Patient Status/Goals: Reflects last filed data and may be from multiple contributors. 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 Strength L UE Strength: 4+/5 R UE Strength: 4+/4 OT Goal Review Date Flowsheet Row Most Recent Value STG Review Date 12/25/16 at 12/21/2016 1412 UB Dressing Goal Flowsheet Row Most Recent Value STG Status new at 12/21/2016 1412 STG [place] Level supervised at 12/21/2016 1412 STG Adaptive Equipment none at 12/21/2016 1412 LB Dressing Goal Flowsheet Row Most Recent Value STG Status new at 12/21/2016 1412 STG [place] Level moderate assist (50% patient effort) at 12/21/2016 1412 STG Adaptive Equipment accountant auditor, sock-aid at 12/21/2016 1412 Toilet Transfer Goal Flowsheet Row Most Recent Value STG Status new at 12/21/2016 1412 STG [place] Level minimum assist (75% patient effort) at 12/21/2016 1412 STG Assistive Device commode (3 in 1), grab bars, 2 wheeled walker (FWW) at 12/21/2016 141 2 Electronically signed by: Kasey Jama OT, 12/21/2016 14:33 Goal Evaluation: lan of Care - Domenica Vela Annabella, PT - 12/21/2016 9:25 AM PDT Problem: Patient Care Overview (Adult) Goal: Care Team Goals & Evaluation PROBLEM-RELATED GOALS: 1. Dora will maintain adequate oxygenation via oximetry with SpO2 >90 by 12/22/16. 2. Geovany will maintain CMS intact by 12/20 3. Pt will report pain at stated goal by 12/23 4. Pt will be free from falls/injuries by 12/23 5. Geovany will be min A for basic transfers and gait to chair beside bed with FWW by 12-26-16 STRATEGY TO ACHIEVE GOALS: 1.Monitor saturations via oximetry and titrate to order as indicated. 2. Monitor CMS as ordered and encourage pt to report any changes 3. Monitor pain and medicate as needed 4. Keep call light within reach at all times and encourage use -staff to assist with transfers and gait as needed. Outcome: Improving Physical Therapy Plan of Care Treatment Note Summary: Pt kenneth tx fairly well however continues to report severe pain in L thigh w/ activ e movement of the RLE d/t stabilizing contraction of the L thigh and hip. He does appear to have slight improvement in tolerance of BLE mobilization although is unable to perform any m eaningful functional mobility at this time. He continues to present w/ strength and ROM defi cits and has not been able to mobilize out of the bed d/t medical issues w/ low BP. Pt will benefit from continued PT interventions to promote increased independence w/ functional acti vities necessary for safe home discharge and will require placement for ongoing therapy serv ices to promote safety and independence prior to return to independent living Physical Therapy Discharge Recommendations are: Recommended discharge disposition: fpc facility Post discharge physical therapy recommendation: minimum 5 days of therapy/week, will benef it from structured setting Equipment Recommendations: 2 wheeled walker (FWW), wheelchair, wheelchair cushion Planned Interventions: balance training, bed mobility training, gait training, home exerci se program, patient/family education, orthotic fitting/training, transfer training, wheelcha ir management/propulsion training, ROM (Range of Motion), stair training, strengthening Recommended Frequency: 6 times/wk (1-2x/day as kenneth) Patient Status/Goals: Reflects last filed data and may be from multiple contributors. Gait pt unable to kenneth tranfsers at this time, unable to move legs actively against gravity, incr eased pain and low BP, Nursing advise not getting pt out of bed at this time. Stairs Stairs not assessed at this time however pt does have stairs to access home therefore sta ir training is indicated Transfers pt unable to kenneth tranfsers at this time, unable to move legs actively against gravity, incr eased pain and low BP, Nursing advise not getting pt out of bed at this time. Therapeutic Exercise general AAROM BLE's knees and hips, Active AP bilat ROM BLEs unable to move actively through full range, pt reports pain in knees prevents movement at this time Strength grossly 2-/5 BLEs PT Goal Review Date Flowsheet Row Most Recent Value STG Review Date 12/27/16 at 12/20/2016 0915 Roll Left/Right Goal Flowsheet Row Most Recent Value STG Status continued/progressing at 12/21/2016 1109 STG [place] Level stand by assist at 12/20/2016 0915 Scoot/Bridge Goal Flowsheet Row Most Recent Value STG Status continued/progressing at 12/21/2016 1109 STG [place] Level stand by assist at 12/20/2016 0915 Tvlquf-Nip-Dkmkqo Goal Flowsheet Row Most Recent Value STG Status continued/progressing at 12/21/2016 1109 STG [place] Level stand by assist at 12/20/2016 0915 Sblumsnby-Qvq-Zxagvalis Goal Flowsheet Row Most Recent Value STG Status continued/progressing at 12/21/2016 1109 STG [place] Level stand by assist at 12/20/2016 0915 STG Assistive Device bed rails at 12/20/2016 0915 All Transfers Goal Flowsheet Row Most Recent Value STG Status not addressed at 12/21/2016 1109 STG [place] Level stand by assist at 12/20/2016 0915 STG Assistive Device 2 wheeled walker (FWW) at 12/20/2016 0915 Gait Goal Flowsheet Row Most Recent Value STG Status not addressed at 12/21/2016 1109 STG [place] Level stand by assist at 12/20/2016 0915 STG Assistive Device 2 wheeled walker (FWW) at 12/20/2016 0915 STG Distance (feet) 10 at 12/20/2016 0915 Stair Goal Flowsheet Row Most Recent Value STG Status not addressed at 12/21/2016 1109 STG [place] Level minimum assist (75% patient effort) at 12/20/2016 0915 STG Assistive Device 2 rails at 12/20/2016 0915 STG Number of Stairs 8 at 12/20/2016 0915 Electronically signed by: Domenica Griffith PT, 12/21/2016 11:22 lan of Care - Cassy Richard RN - 12/21/2016 5:47 AM PDTProblem: Patient Care Overview (Adult) Goal: Care Team Goals & Evaluation PROBLEM-RELATED GOALS: 1. Dora will maintain adequate oxygenation via oximetry with SpO2 >90 by 12/22/16. 2. Geovany will maintain CMS intact by 12/20 3. Pt will report pain at stated goal by 12/23 4. Pt will be free from falls/injuries by 12/23 5. Geovany will be min A for basic transfers and gait to chair beside bed with FWW by 12-26-16 STRATEGY TO ACHIEVE GOALS: 1.Monitor saturations via oximetry and titrate to order as indicated. 2. Monitor CMS as ordered and encourage pt to report any changes 3. Monitor pain and medicate as needed 4. Keep call light within reach at all times and encourage use -staff to assist with transfers and gait as needed. Outcome: Improving Goal Evaluation: patient is alert and oriented x 3 He received 500cc ns for hypotension last night, IV maintenance rate increased to 100/hr. S BP 100-110 over night He reports pain to Bilat upper extremities, oxycodone given x 2 with some relief. UO has been 30-35/hr. Has 2-3 + edema to BLE, pulses present tmax 37.8 overnight lan of [facility] Jeramy Wallace RRT - 12/20/2016 7:09 PM PDTProblem: Patient Care Overview (Adult) Goal: Care Team Goals & Evaluation PROBLEM-RELATED GOALS: 1. Dora will maintain adequate oxygenation via oximetry with SpO2 >90 by 12/22/16. 2. Geovany will maintain CMS intact by 12/20 3. Pt will report pain at stated goal by 12/23 4. Pt will be free from falls/injuries by 12/23 5. Geovany will be min A for basic transfers and gait to chair beside bed with FWW by 12-26-16 STRATEGY TO ACHIEVE GOALS: 1.Monitor saturations via oximetry and titrate to order as indicated. 2. Monitor CMS as ordered and encourage pt to report any changes 3. Monitor pain and medicate as needed 4. Keep call light within reach at all times and encourage use -staff to assist with transfers and gait as needed. Outcome: Unchanged Goal Evaluation: Dora is breathing fine today. Lung sounds are clear, equal and dim inished. SpO2: 91 % on 2.5liters/minute nasal cannula. [facility] RN - 12/20/2016 4:18 PM PDTAida GUZMÁN spoke with patient Dora Arellano about his home. I explained that he may be a candidate for INPT Rehab at [facility] rather that going to [facility]. However, I needed to know more information about his home. The concern would be the 18 steps to the upstairs in the home. Mr Arellano states that they do have bedrooms and bathrooms on the main level of the home and he would NOT have to go to e upstairs. Electronically signed by: Cathleen Ibrahim, RN 12/20/2016 16:27 lan of Care - Juan J Berrios Chaplain - 12/20/2016 9:50 AM PDT Spiritual Care Dora Arellano is a 86 y.o. male who is admitted for Bilateral Femur Fractures r midshaft femur fracture L femur fx. Spiritual Evaluation: Mandaen, not active in a alevism Spiritual Intervention: Pastoral presence, active listening, prayer Spiritual Outcomes: Patient appreciates Director Environmental's visit. Spiritual Goals / Follow-up: Will see the patient as requested. If there are any other spiritual care issues that arise, please contact machine tender. lan of Care - Law Rollins, PT - 12/20/2016 9:15 AM PDT Problem: Patient Care Overview (Adult) Goal: Care Team Goals & Evaluation PROBLEM-RELATED GOALS: 1. Dora will maintain adequate oxygenation via oximetry with SpO2 >90 by 12/22/16. 2. Geovany will maintain CMS intact by 12/20 3. Pt will report pain at stated goal by 12/23 4. Pt will be free from falls/injuries by 12/23 5. Goevany will be min A for basic transfers and gait to chair beside bed with FWW by 12-26-16 STRATEGY TO ACHIEVE GOALS: 1.Monitor saturations via oximetry and titrate to order as indicated. 2. Monitor CMS as ordered and encourage pt to report any changes 3. Monitor pain and medicate as needed 4. Keep call light within reach at all times and encourage use -staff to assist with transfers and gait as needed. Outcome: Improving Physical Therapy Plan of Care Initial Evaluation, Treatment Note Summary: PT orders rec'd, chart reviewed. pt seen for PT eval. Pt unable to kenneth out of bed mobility. pt unable to kenneth tranfsers at this time, unable to move legs actively against gra vity, increased pain and low BP, Nursing advise not getting pt out of bed at this time. Pt will benefit from skilled PT services to increase functional mobility and safety with tranfs ers s/p fall with lv femur fxs. pt with hx of falls, reporting he falls "all the time" and uses his walker at home when ever his "vision gets blurry, or else I fall a lot more. Pt deneen moncada benefit from skilled PT for all the above and may benefit from SNF rehab or Acute Inpatien t rehab as he has 8 steps to get in the front door of his home and may not have enough help at home if he has been falling chronically at home as he describes. He will need to be 2P t otal A for skylift for tranfers to bedside chair for now, then work on sit to stand, WBAT BL ES with 2 person assist for safety. Physical Therapy Discharge Recommendations are: Recommended discharge disposition: inpatient rehabilitation facility, fpc faci lity (vs) Post discharge physical therapy recommendation: minimum 5 days of therapy/week, will benef it from structured setting Equipment Recommendations: 2 wheeled walker (FWW), wheelchair, wheelchair cushion Planned Interventions: balance training, bed mobility training, gait training, home exerci se program, patient/family education, orthotic fitting/training, transfer training, wheelcha ir management/propulsion training, ROM (Range of Motion), stair training, strengthening Recommended Frequency: 6 times/wk (1-2x/day as kenneth) Patient Status/Goals: Reflects last filed data and may be from multiple contributors. Gait pt unable to kenneth tranfsers at this time, unable to move legs actively against gravity, incr eased pain and low BP, Nursing advise not getting pt out of bed at this time. Transfers pt unable to kenneth tranfsers at this time, unable to move legs actively against gravity, incr eased pain and low BP, Nursing advise not getting pt out of bed at this time. ROM BLEs unable to move actively through full range, pt reports pain in knees prevents movement at this time Strength grossly 2-/5 BLEs PT Goal Review Date Flowsheet Row Most Recent Value STG Review Date 12/27/16 at 12/20/2016 0915 Roll Left/Right Goal Flowsheet Row Most Recent Value STG Status new at 12/20/2016 0915 STG [place] Level stand by assist at 12/20/2016 0915 Scoot/Bridge Goal Flowsheet Row Most Recent Value STG Status new at 12/20/2016 0915 STG [place] Level stand by assist at 12/20/2016 0915 Bigdsw-Gsa-Rmbjll Goal Flowsheet Row Most Recent Value STG Status new at 12/20/2016 0915 STG [place] Level stand by assist at 12/20/2016 0915 Ntfrnwkwe-Mik-Crzmpjurk Goal Flowsheet Row Most Recent Value STG Status new at 12/20/2016 0915 STG [place] Level stand by assist at 12/20/2016 0915 STG Assistive Device bed rails at 12/20/2016 0915 All Transfers Goal Flowsheet Row Most Recent Value STG Status new at 12/20/2016 0915 STG [place] Level stand by assist at 12/20/2016 0915 STG Assistive Device 2 wheeled walker (FWW) at 12/20/2016 0915 Gait Goal Flowsheet Row Most Recent Value STG Status new at 12/20/2016 0915 STG [place] Level stand by assist at 12/20/2016 0915 STG Assistive Device 2 wheeled walker (FWW) at 12/20/2016 0915 STG Distance (feet) 10 at 12/20/2016 0915 Stair Goal Flowsheet Row Most Recent Value STG Status new at 12/20/2016 0915 STG [place] Level minimum assist (75% patient effort) at 12/20/2016 0915 STG Assistive Device 2 rails at 12/20/2016 0915 STG Number of Stairs 8 at 12/20/2016 0915 Electronically signed by: Law Rollins, PT, 12/20/2016 12:21 lan of Care - T Rhett morgan RN - 12/20/2016 5:25 AM PDTProblem: Patient Care Overview (Adult) Goal: Care Team Goals & Evaluation PROBLEM-RELATED GOALS: 1. Dora will maintain adequate oxygenation via oximetry with SpO2 >90 by 12/22/16. 2. Geovany will maintain CMS intact by 12/20 3. Pt will report pain at stated goal by 12/23 4. Pt will be free from falls/injuries by 12/23 STRATEGY TO ACHIEVE GOALS: 1.Monitor saturations via oximetry and titrate to order as indicated. 2. Monitor CMS as ordered and encourage pt to report any changes 3. Monitor pain and medicate as needed 4. Keep call light within reach at all times and encourage use Outcome: Improving Goal Evaluation: Patient slept between care, A&O since about midnight. Minimal pain mostly in knees, oxycod one 5mg given once. Hypotensive this AM 80's/50's, Dr. Serrano notified, 500ml NS boluses x2 g iven, asymptomatic. Dressings to bilat hips CDI. Skin tears to bilat arms moist, dressing ch anged to right forearm. p Note - Perfecto Mancuso MD - 12/19/2016 8:01 PM PDT [address] [id number] OPERATIVE REPORT PERFECTO MANCUSO MD Patient: DORA ARELLANO Admitting: GAMAL SERRANO MR #: [id number] LOC: PT TYPE: Adm Date: 12/18/2016 : 1932 DATE OF SERVICE: 12/19/2016. INDICATIONS: The patient is an 86-year-old male in fairly poor health who fell yesterday in [place] at home suffering fractures of bilateral femurs. He was transferred here to [facility] for definitive orthopedic treatment since apparently they did not have orthopedic coverage in [place] yesterday. The patient was admitted to the hospitalist service and cleared for surgery. The patient is now taken to the operating ro om for intramedullary fixation of both of these fractures. I have explained to patient how severe the situation is given his advanced age and medical problems and the fact that he h as 2 significant fractures requiring surgery. I explained to him the potential risks of t he surgery, ranging anywhere from infection, neurovascular damage, significant blood loss r equiring a blood transfusion, fracture malunion or nonunion, stroke, and even . He d oes desire to proceed with surgery and gives informed consent in writing. PREOPERATIVE DIAGNOSIS: 1. Right midshaft femur fracture. 2. Left peritrochanteric femur fracture with reverse obliquity. POSTOPERATIVE DIAGNOSIS: 1. Right midshaft femur fracture. 2. Left peritrochanteric femur fracture with reverse obliquity. PROCEDURE PERFORMED: 1. Intramedullary yulisa fixation, right femur. 2. Cephalomedullary nail fixation of left peritrochanteric femur fracture. SURGEON: Perfecto Mancuso MD. CORN CUTTER OPERATOR: None. ANESTHESIA: General, started by Valente Munoz MD, finished by Julian Claudio MD. ESTIMATED BLOOD LOSS: 250 mL. DRAINS: None. COMPLICATIONS: None. IMPLANTS: Synthes implants were used with a size 420 x 13 mm retrograde/antegrade right f emoral nail fixed with 2 interlocking screws, 1 proximally and 1 distally. On the left fei e, we used a TFNA size 12 x 235 with a 130 degree angle and a 105 mm helical blade. OPERATION: The patient was taken to the operating room and placed in the supine position, where he was placed under general anesthesia and intubated. He had received 2 units of FF P preoperatively and was receiving the 3rd unit of FFP as the surgery was started. He was transferred onto the fracture table with all bony prominences well-padded. A perineal pos t was placed. The surgery was planned to start on the right femur fracture. We scissored the legs with the left lower limb dropped into a low position and adducted to allow the C-a rm to clear for C-arm imaging. We performed a sterile prep and drape of the right lower l imb and the patient received Ancef 2 grams IV preoperatively. We found our starting point using C-arm fluoroscopy for guidance and created a 3 cm longit udinal incision proximal to the tip of the greater trochanter. Dissection was carried simon ply through the fascia. We palpated the tip of the greater trochanter and then inserted th e guide pin into the piriformis fossa. We checked position on AP and lateral C-arm fluoro scopic views. We were pleased, and advanced the wire into the proximal femur. We then pro ceeded to open the piriformis fossa with the use of an awl. We then placed the ball-tipped guidewire down the proximal femur and across the fracture site, seating it in the distal femur at the level of the physeal scar. We performed depth gauging at this point and decid ed on a 420 mm length of the femoral yulisa. We proceeded with reaming. We reamed all the way up to a 14 mm reamer, at which point we were starting to get chatter at the isthmus of the femur. We called for our final femoral nail. We proceeded to advance the nail across the fracture site and held the fracture redu oj as the nail was advanced with light blows of the mallet. We seated the nail to the ap propriate depth and confirmed good alignment at the fracture site. Being pleased, we procee ded to interlock the nail, first proximally using the interlocking jig with a single screw with excellent purchase and then distally with 2 interlocking screws placed using the metho d of perfect circles. All of these interlocking screws had excellent purchase. The final construct was imaged with C-arm fluoroscopy on AP and lateral views. We were pl eased with the alignment of the fracture and the hardware position. All incisions were copy operator iously lavaged. The fascia at the insertion site was closed with [id number] stitches of 0 Vicryl. The subcutaneous layers were closed with buried interrupted stitches of 2-0 V icryl and the skin closed with samy. Marcaine with epinephrine was infiltrated subcutan eously and deep for postoperative analgesia. The wounds were dressed with Xeroform followed by sterile dry dressings and Medipore tape. At this point, we proceeded to set up on the left side for surgery there. We placed the r ight lower limb in an abducted and externally rotated position to clear the C-arm. Sterile prep and drape were performed of the left thigh. We performed a second surgical timeout. We created our starting incision in a similar position to what was used on the contralater al side. In this case, we placed the tip of the guide pin at the tip of the greater trocha nter. We passed the pin into the proximal femur and then opened the path for the TFNA usin g the starting reamer. We then called for the final nail and passed it over the guide pin across the fracture site and removed the guide pin. We proceeded to advance the nail down to the fracture site. We made the lateral incision for the insertion jig for the spiral blade and found that this came right down onto the fra cture site. We then passed a bone reduction clamp across the fracture site and held it troy tomically reduced. We removed the TFNA back to the starting position with the fracture r educed and then slowly advanced again to optimize the fracture site alignment. Unfortunate ly, we were not able to leave the bone reduction clamp in place and as it interfered with p lacement of the spiral blade insertion apparatus. We proceeded to place the spiral blade insertion jig and tightened it down. We adjusted t he depth of the nail and the anteversion, checking with the guide pin until we were well pl eased. We then proceeded to drill the guide pin to the appropriate depth and this determin ed our spiral blade plate length. We approached the lateral cortex with the stop drill an d then proceeded to drive the helical blade into position with multiple light blows of the mallet. At this point, we locked the nail statically prior to removing traction and placing our si ngle distal interlocking screw through the jig with excellent purchase. The final construct was imaged with C-arm fluoroscopy. We were pleased with fracture site alignment and hardware position. The wounds were copiously lavaged. The deep fascia was closed with olqafm-ty-rcpik stitches of 0 Vicryl. The subcutaneous layer was closed with b uried interrupted stitches of 2-0 Vicryl and the skin closed with samy. Marcaine with e pinephrine was infiltrated subcutaneously and deep for postoperative analgesia. Xeroform w as applied followed by sterile dry dressings and Medipore tape. The patient was awakened f rom anesthesia, extubated, and taken to the PACU awake and in stable condition. PERFECTO MANCUSO MD Dictated by PERFECTO MANCUSO MD 12/19/2016 20:01:10 Transcribed on 12/20/2016 05:23:32 by so job# [id number] Confirmation #: [id number] cc: TAIWO LEE MD P DTBrief Op Note - Perfecto Mancuso MD - 12/19/2016 7:36 PM PDT Brief Operative Note Dora Arellano 86 y.o. male 1930 [id number] Proc. Date 12/19/2016 Preop Dx r midshaft femur fracture L femur fx Postop Dx same Procedure ORIF IM RODDING FEMORAL ANTEGRADE (Right), ORIF IM RODDING FEMORAL TROCHANTERIC NAIL (Left) Anesthesia general Surgeon Perfecto Mancuso MD - Primary Hand Cultivator EBL 250 mL Findings Findings consistent with scheduled procedure. No other abnormalities found. Complications none Specimens * No specimens in log * Drains None Electronically signed by: Perfecto Mancuso MD 12/19/2016 19:36 [facility]ron[facility] signed by Perfecto Mancuso MD at 12/19 8:02 PM PDTPlan of Elysia - Jenni Jasso RN - 12/19/2016 6:13 PM PDTProblem: Alida ent Care Overview (Adult) Goal: Care Team Goals & Evaluation PROBLEM-RELATED GOALS: 1. Dora will maintain adequate oxygenation via oximetry with SpO2 >90 by 12/22/16. 2. Geovany will maintain CMS intact by 12/20 3. Pt will report pain at stated goal by 12/23 4. Pt will be free from falls/injuries by 12/23 STRATEGY TO ACHIEVE GOALS: 1.Monitor saturations via oximetry and titrate to order as indicated. 2. Monitor CMS as ordered and encourage pt to report any changes 3. Monitor pain and medicate as needed 4. Keep call light within reach at all times and encourage use Outcome: Unchanged Goal Evaluation: pt alert and oriented. Oxycodone given for 10/10 pain. Velarde draining clear yellow urine. Down to preop at 1400 for B/L femur fx's. lan of Elysia - Jeramy Wallace RRT - 12/19/2016 3:40 PM PDTProblem: Patient Care Overview (Adult) Goal: Care Team Goals & Evaluation PROBLEM-RELATED GOALS: 1. Dora will maintain adequate oxygenation via oximetry with SpO2 >90 by 12/22/16. 2. Geovany will maintain CMS intact by 12/20 3. Pt will report pain at stated goal by 12/23 4. Pt will be free from falls/injuries by 12/23 STRATEGY TO ACHIEVE GOALS: 1.Monitor saturations via oximetry and titrate to order as indicated. 2. Monitor CMS as ordered and encourage pt to report any changes 3. Monitor pain and medicate as needed 4. Keep call light within reach at all times and encourage use Outcome: Unchanged Goal Evaluation: Pt has been weaned to room air. O2 sat is 94% on room air. lan of Elysia - Adenike , Maite Maurice RN - 12/19/2016 11:39 AM PDTProblem: Discharge Planning Goal: Patient will be discharged in a safe manner Outcome: Improving This CM met with patient to discuss his d/c plan. He was transferred here by ground ambulance from [facility] after his fall at home and la ed for surgery. He lives with his independently in [place], [place]. He does have canes around the house and also a FWW at home already. 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 Otherwise, she is self sufficient at home. Currently, his 2 brothers are here visiting from [place] with their motorhome but will be abdon soon. He does wish to rehab closer to home and knows where [facility] is, so this was [facility] choice of rehab facilities, after choices were given. He signed the preference form and referral was sent via [facility], pending review. Signed form w as placed in ghost chart. This CM left message with SRIKANTH Garcia, who is covering for [facility], requesting a return call o n this referral sent. After 45 minutes this CM returned call since did not hear from him, and Jose stated they do have a male bed available and will get back with this CM after he reviews the referral. Lef t my number in case he has any questions.Electronically signed by: Maite Jeong RN 12/19/2016 1 1:39 14:41 Jose, from [facility] called this CM back and stated he could not get to the [facility] S NF referral so manually faxed the H&P, face sheet, and med list to him, letting him know bossman t patient is having surgery today. Fax transmission with confirmation placed in ghost chart. Electronically signed by: Maite Jeong RN 12/19/2016 14:43 16:00 This CM called Jose at [facility] and he reports that he has not seen any fax yet, so this time manually faxed it to his own fax # [phone].Electronically signed by: Maite blankenship RN 12/19/2016 16:00 17:30 Jose from [facility] called to let this CM know that they have accepted patient for r ehab and to call when patient will be discharged. Sticky note left for MD .Electronically si gned by: Maite Jeong RN 12/19/2016 17:41 lan of Dhruv Scanlon RN - 12/19/2016 4:24 AM PDTProblem: Patient Care Overview (Adult) Goal: Care Team Goals & Evaluation PROBLEM-RELATED GOALS: 1. Dora will maintain adequate oxygenation via oximetry with SpO2 >90 by 12/22/16. 2. Geovany will maintain CMS intact by 12/20 3. Pt will report pain at stated goal by 12/23 4. Pt will be free from falls/injuries by 12/23 STRATEGY TO ACHIEVE GOALS: 1.Monitor saturations via oximetry and titrate to order as indicated. 2. Monitor CMS as ordered and encourage pt to report any changes 3. Monitor pain and medicate as needed 4. Keep call light within reach at all times and encourage use Goal Evaluation: Pt slept intermittently. Pt reports pain to right > left thighs, IV fentanyl and po oxycod one as needed. Edema to BLE. PPP, no N/T reported. Multiple ST's to BUE, and right inner thi gh with steri strips and telfa. Velarde in place. lan of Radha Ventura, ELDON - 12/19/2016 2:44 AM PDTProblem: Patient Care Overview (Adult) Goal: Care Team Goals & Evaluation PROBLEM-RELATED GOALS: 1. Dora will maintain adequate oxygenation via oximetry with SpO2 >90 by 12/22/16. STRATEGY TO ACHIEVE GOALS: - Monitor saturations via oximetry and titrate to order as indicated. RESTRAINT-RELATED GOALS: STRATEGIES TO ACHIEVE RESTRAINT GOALS: Goal Evaluation: Remains on 2 lpm nc-sao2 95% documented in this en counter Plan of Treatment +--------+---------+ + + + | Date | Type | Specialty | Care Team | Description | +--------+---------+ + + + | 08/04/ | Office | Cardiology | Anusha Lomax | | | 2020 | Visit | | [address] | | | | | | [address] | | | | | | [place] [address] | | | | | | [phone] | | | | | | | [...] + | XR CHEST AP PORTABLE | [facility] | 12/25/2016 | | Results for this [...] + | XR CHEST AP PORTABLE | [facility] | 12/21/2016 | | Results for this [...] | + +--------+ + + + | MI SHARMA | Routin | 12/19/2016 | | Results [...] + | TRANSFUSE FROZEN | Routin | 12/19/2016 | | | | PLASMA INTRAOP | e | 4:56 PM | | | | | | [...] + | TRANSFUSE FROZEN | Routin | 12/19/2016 | | | | PLASMA | e | 2:41 PM | | | | | | PDT | | | + +--------+ + + + | TRANSFUSE FROZEN | Routin | 12/19/2016 | | | | PLASMA | e | 2:25 PM | | | | | | [...] [address] | [place] | [phone] | | [facility] | | [address] | | | - LABORATORY | | [...] | | | | mmol/L | [facility] | | | | [...] (H) | 7 - 18 mg/dL | [facility] | | | | | | [facility] | | | | | | MEDICAL | | | | | | CENTER - | | | | | | LABORATORY | | + + + + + + | Creatinine | 1.19 | 0.60 - 1.30 | [facility] [facility] | | | | | mg/dL | [facility] | | | | | | MEDICAL | | | | | | CENTER - | | | | | | LABORATORY | | + + + + + + | eGFR, | 58 (L)Comment: | >=60 | [facility] [facility] | | | non- | GLOMERULAR FILTRATION | mL/min/1.73m2 | [facility] | | | Indonesian | RATE,ESTIMATED | | MEDICAL | | | | mL/min/1.75c3Dmvl than | | CENTER - | | [...] + | [facility] | [address] | [place] | [phone] | | [facility] | | [address] | | | - LABORATORY | | | | + + + + + CBC with Differential (12/31/2016 6:21 AM PDT) + + + + + + | Component | Value | Ref Range | Performed | Pathologist | | | | | At | Signature | + + + + + + | White Blood | 9.9 | 4.0 - 11.0 K/uL | [facility] | | | Cells | | | [facility] | | | | | | MEDICAL | | | | | | CENTER - | | | | | | LABORATORY | | + + + + + + | Red Blood | 3.59 (L) | 4.30 - 5.70 | [facility] | | | Cells | | M/uL | [facility] | [...] | | | | | | [facility] | | [...] [address] | [place] | [phone] | | [facility] | | [address] | | | - LABORATORY | | [...] [address] | [place] | [phone] | | [facility] | | [address] | | | - LABORATORY | | [...] 102 | 70 - 109 mg/dL | [facility] [...] | 1.14 | 0.60 - 1.30 | [facility] | [...] mL/min/1.73m2 | [facility] | | | [place] | RATE,ESTIMATED | | MEDICAL | | | | mL/min/1.28s4Fqcp than | | CENTER - | | [...] | 8.5 | 8.3 - 10.5 | [facility] | [...] + | [facility] | [address] | [place] | [phone] | | [facility] | | [address] | | | - LABORATORY | | | | + + + + + CBC with Differential (12/30/2016 5:18 AM PDT) + + + + + + | Component | Value | Ref Range | Performed | Pathologist | | | | | At | Signature | + + + + + + | White Blood | 8.8 | 4.0 - 11.0 K/uL | [facility] | | | Cells | | | [facility] | | | | | | MEDICAL | | | | | | CENTER - | | | | | | LABORATORY | | + + + + + + | Red Blood | 3.38 (L) | 4.30 - 5.70 [...] [address] | [place] | [phone] | | [facility] | | [address] | | | - LABORATORY | | | | + + + + + Protime INR (12/29/2016 3:44 AM PDT) + + [...] + | [facility] | [address] | [place], [place] | [phone] | | [facility] | | [address] | | | - LABORATORY | | | | + + + + + Magnesium (12/29/2016 3:44 AM PDT) + +---------+ + + + | Component | Value | Ref Range | Performed | Pathologist | | | | | At | Signature | + +---------+ + + + | Magnesium | 1.5 (L) | 1.8 - 2.5 mg/dL | [facility] | | | | [...] [address] | [place] | [phone] | | [facility] | | [address] | | | - LABORATORY | | [...] | 1.23 | 0.60 - 1.30 | [facility] | | | | | mg/dL | [facility] | | | | | | MEDICAL | | | | | | CENTER - | | | | | | LABORATORY | | + + + + + + | eGFR, | 56 (L)Comment: | >=60 | [facility] | | | non- | GLOMERULAR FILTRATION | mL/min/1.73m2 | [facility] | | | Indonesian | RATE,ESTIMATED | | MEDICAL | | | | mL/min/1.90u2Pjhi than | | CENTER - | | [...] | | | | | mg/dL | [facility] | | | | | [...] [address] | [place] | [phone] | | [facility] | | [address] | | | - LABORATORY | | | | + + + + + CBC with Differential (12/29/2016 3:44 AM PDT) + + + + + + | Component | Value | Ref Range | Performed | Pathologist | | | | | At | Signature | + + + + + + | White Blood | 9.1 | 4.0 - 11.0 K/uL | [facility] | | | Cells | | | [facility] | | | | | | MEDICAL | | | | | | CENTER - | | | | | | LABORATORY | | + + + + + + | Red Blood | 3.35 (L) | 4.30 - 5.70 [...] [address] | [place] | [phone] | | [facility] | | [address] | | | - LABORATORY | | | | + + + + + Red Blood Cells (PRBC) - Crossmatch (12/28/2016 7:41 AM PDT) + + + + + + | Component | Value | Ref Range | Performed | Pathologist | | | | | At | Signature | + + + + + + | Product | [id number] | | [facility] | | | Code | | | [facility] | | | | | | MEDICAL | | | | | | CENTER - | | | | | | BLOOD BANK | | + + + + + + | UNIT # | [id number] | | [facility] | | | | [...] | | INTERP | | | [facility] | | [...] | | Product | | | [facility] | | | [facility] | | | MEDICAL | | | | | | CENTER - | | | | | | BLOOD BANK | | + + + + + + | Blood | [id number] | | [facility] | | | Product | | | [facility] | | | Expiration | | | MEDICAL | | | Date and | | | CENTER - | | | Time | | | BLOOD BANK | | + + + + + + | Product | [id number] | | [facility] | | | Blood Type | | | [facility] | | | Barcode | | | MEDICAL | | | | | | CENTER - | | | | | | BLOOD BANK | | + + + + + + | Product | [id number] | | [facility] | | | Code | | | [facility] | | | | | | MEDICAL | | | | | | CENTER - | | | | | | BLOOD BANK | | + + + + + + | UNIT # | [id number] | | [facility] | | | | | [...] | | INTERP | | | [facility] | | [...] | | Product | | | [facility] | | | [facility]OR[facility] | | | MEDICAL | | | | | | CENTER - | | | | | | BLOOD BANK | | + + + + + + | Blood | [id number] | | [facility] | | | Product | | | [facility] | | | Expiration | | | MEDICAL | | | Date and | | | CENTER - | | | Time | | | BLOOD BANK | | + + + + + + | Product | [id number] | | [facility] | | | Blood Type | | | [facility] | | | Barcode | | | [...] St | [place] | | | [facility] | | [address] | | | - BLOOD BANK | [...] [address] | [place] | [phone] | | [facility] | | [address] | | | - LABORATORY | | [...] [address] | [place] | [phone] | | [facility] | | [address] | | | - LABORATORY | | [...] (H) | 7 - 18 mg/dL | [facility] | | | | | | [facility] | | | | | | MEDICAL | | | | | | CENTER - | | | | | | LABORATORY | | + + + + + + | Creatinine | 1.21 | 0.60 - 1.30 | [facility] | | | | | mg/dL | [facility] | | | | | | MEDICAL | | | | | | CENTER - | | | | | | LABORATORY | | + + + + + + | eGFR, | 57 (L)Comment: | >=60 | [facility] | | | non- | GLOMERULAR FILTRATION | mL/min/1.73m2 | [facility] | | | Indonesian | RATE,ESTIMATED | | MEDICAL | | | | mL/min/1.68v4Bwlb than | | CENTER - | | [...] [address] | [place] | [phone] | | [facility] | | [address] | | | - LABORATORY | | [...] + + + | Red Blood | 3.40 (L) | 4.30 - 5.70 [...] | | | | | g/dL | [facility] | | | | [...] [address] | [place] | [phone] | | [facility] | | [address] | | | - LABORATORY | | [...] [address] | [place] | [phone] | | [facility] | | [address] | | | - LABORATORY | | [...] | 1.07 | 0.60 - 1.30 | [facility] | | | | | mg/dL | [facility] | | | | | | MEDICAL | | | | | | CENTER - | | | | | | LABORATORY | | + + + + + + | eGFR, | >60Comment: GLOMERULAR | >=60 | [facility] | | | non- | FILTRATION | mL/min/1.73m2 | [facility] | | | Indonesian | RATE,ESTIMATED | | MEDICAL | | | | mL/min/1.08u6Vvvo than | | CENTER - | | [...] | 8.3 | 8.3 - 10.5 | [facility] | | | | | mg/dL | [facility] | | | | | [...] + | [facility] | [address] | [place] | [phone] | | [facility] | | [address] | | | - LABORATORY | | | | + + + + + CBC with Differential (12/27/2016 5:39 AM PDT) + + + + + + | Component | Value | Ref Range | Performed | Pathologist | | | | | At | Signature | + + + + + + | White Blood | 8.3 | 4.0 - 11.0 K/uL | [facility] | | | Cells | | | [facility] | | | | | | MEDICAL | | | | | | CENTER - | | | | | | LABORATORY | | + + + + + + | Red Blood | 3.23 (L) | 4.30 - 5.70 | [facility] | | | Cells | | M/uL | 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, | | | [place] Age 86 year(s) | | | Interpreting MARGARET DUGAN | | | Merchandise Executive RITCHIE | | | MARGARET | | | Gender Male | | | Nurse Stress | | | Instructional Support Services Director Procedure Type of Study TTE procedure: ECHO [...] Volume: 74.41 ml | | | EF Utnodsrsk18% Left Ventricle Diastolic | | | Dimension: [...] Volume: 74.41 ml | | | EF Ghyrvlajo22% | | | | | | Left [...] + | Zac Pierce Results In - 12/26/2016 12:42 PM PDT Transthoracic Echocardiography Report | | (TTE) Demographics Patient Name [facility] Room Number 459 | | DESTINY Patient Number [id number] Date of Study 12/26/2016 Visit | | Number [id number] Referring Physician CANDELARIO | | RAEF Number 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 | | | 1st | | | [...] [address] | [place] | [phone] | | [facility] | | [address] | | | - LABORATORY | | | | + + + + + PRODUCT: Plasma (12/26/2016 7:15 AM PDT) + + + + + + | Component | Value | Ref Range | Performed | Pathologist | | | | | At | Signature | + + + + + + | Product | [id number] | | [facility] | | | Code | | | [facility] | | | | | | MEDICAL | | | | | | CENTER - | | | | | | BLOOD BANK | | + + + + + + | UNIT # | [id number] | | [facility] | | | | [...] | | Product | | | [facility] | | | [facility] | | | MEDICAL | | | | | | CENTER - | | | | | | BLOOD BANK | | + + + + + + | Blood | [id number] | | [facility] | | | Product | | | [facility] | | | Expiration | | | MEDICAL | | | Date and | | | CENTER - | | | Time | | | BLOOD BANK | | + + + + + + | Product | [id number] | | [facility] | | | Blood Type | | | [facility] | | | Barcode | | | MEDICAL | | | | | | CENTER - | | | | | | BLOOD BANK | | + + + + + + | Product | [id number] | | [facility] | | | Code | | | [facility] | | | | | | MEDICAL | | | | | | CENTER - | | | | | | BLOOD BANK | | + + + + + + | UNIT # | [id number] | | [facility] | | | | [...] | | Product | | | [facility] | | | [facility] | | | MEDICAL | | | | | | CENTER - | | | | | | BLOOD BANK | | + + + + + + | Blood | [id number] | | [facility] | | | Product | | | [facility] | | | Expiration | | | [...] St | [place] | | | [facility] | | [address] | | | - BLOOD BANK | | | | + + + + + Protime INR (12/26/2016 3:27 AM PDT) + + + + + + | Component | Value | Ref Range | Performed | Pathologist | | | | | At | Signature | + + + + + + | Prothrombin | 24.6 (H) | 11.3 - 13.9 | [facility] [...] ST[facility] | [address] | [place] | [phone] | | [facility] | | [address] | | | - LABORATORY | | [...] | 1.17 | 0.60 - 1.30 | [facility] | | | | | mg/dL | [facility] | | | | | | MEDICAL | | | | | | CENTER - | | | | | | LABORATORY | | + + + + + + | eGFR, | 59 (L)Comment: | >=60 | [facility] | | | non- | GLOMERULAR FILTRATION | mL/min/1.73m2 | [facility] | | | Indonesian | RATE,ESTIMATED | | MEDICAL | | | | mL/min/1.08k9Ufro than | | CENTER - | | [...] | 8.4 | 8.3 - 10.5 | [facility] | | | | | mg/dL | [facility] | | | | | [...] | bulin Ratio | | | [facility] | [...] + | [facility] | [address] | [place] | [phone] | | [facility] | | [address] | | | - LABORATORY | | | | + + + + + CBC with Differential (12/26/2016 3:27 AM PDT) + + + + + + | Component | Value | Ref Range | Performed | Pathologist | | | | | At | Signature | + + + + + + | White Blood | 8.7 | 4.0 - 11.0 K/uL | [facility] | | | Cells | | | [facility] | | | | | | MEDICAL | | | | | | CENTER - | | | | | | LABORATORY | | + + + + + + | Red Blood | 3.25 (L) | 4.30 - 5.70 [...] [address] | [place] | [phone] | | [facility] | | [address] | | | - LABORATORY | | [...] + + + | White Blood | 8.4 | 4.0 - 11.0 K/uL | [facility] | | | Cells | | | [facility] | | | | | | MEDICAL | | | | | | CENTER - | | | | | | LABORATORY | | + + + + + + | Red Blood | 3.08 (L) | 4.30 - 5.70 [...] | | | | | g/dL | [facility] | | | | | | MEDICAL | | | | | | CENTER - | | | | | | LABORATORY | | + + + + + + | Hematocrit | 27.4 (L) | 40.0 - 51.0 % | [facility] | | | | | | [facility] | | | | | | MEDICAL | | | | | | CENTER - | | | | | | LABORATORY | | + + + + + + | MCV | 88.8 | 83.0 - 101.0 fL | [facility] | | | | | | [facility] | | | | | [...] + | [facility] | [address] | [place] | [phone] | | [facility] | | [address] | | | - LABORATORY | | | | + + + + + B Type Natriuretic Peptide (12/25/2016 6:08 PM PDT) + +---------+ + + + | Component | Value | Ref Range | Performed | Pathologist | | | | | At | Signature | + +---------+ + + + | BNP | 375 (H) | <100 pg/mL | [facility] | | | | | | ST. [...] + | [facility] | [address] | [place] | [phone] | | [facility] | | [address] | | | - LABORATORY | | [...] ST. | [address] | [place], [place] | [phone] | | [facility] | | [address] | | | - LABORATORY | | [...] [address] | [place] | [phone] | | [facility] | | [address] | | | - LABORATORY | | [...] 17 | 7 - 18 mg/dL | [facility] | | | | | | [facility] | | | | | | MEDICAL | | | | | | CENTER - | | | | | | LABORATORY | | + + + + + + | Creatinine | 0.98 | 0.60 - 1.30 | [facility] | | | | | mg/dL | [facility] | | | | | | MEDICAL | | | | | | CENTER - | | | | | | LABORATORY | | + + + + + + | eGFR, | >60Comment: GLOMERULAR | >=60 | [facility] | | | non- | FILTRATION | mL/min/1.73m2 | [facility] | | | Indonesian | RATE,ESTIMATED | | MEDICAL | | | | mL/min/1.54z9Mipa than | | CENTER - | | [...] + | [facility] | [address] | [place] | [phone] | | [facility] | | [address] | | | - LABORATORY | | | | + + + + + CBC with Differential (12/25/2016 3:55 AM PDT) + + + + + + | Component | Value | Ref Range | Performed | Pathologist | | | | | At | Signature | + + + + + + | White Blood | 7.5 | 4.0 - 11.0 K/uL | [facility] | | | Cells | | | [facility] | | | | | | MEDICAL | | | | | | CENTER - | | | | | | LABORATORY | | + + + + + + | Red Blood | 3.10 (L) | 4.30 - 5.70 | [facility] | | | Cells | | M/uL | [facility] | | | | [...] + | [facility] | [address] | [place] | [phone] | | [facility] | | [address] | | | - LABORATORY | | | | + + + + + Red Blood Cells (PRBC) - Crossmatch (12/25/2016 1:15 AM PDT) + + + + + + | Component | Value | Ref Range | Performed | Pathologist | | | | | At | Signature | + + + + + + | Product | [id number] | | [facility] | | | Code | | | [facility] | | | | | | MEDICAL | | | | | | CENTER - | | | | | | BLOOD BANK | | + + + + + + | UNIT # | [id number] | | [facility] | | | | [...] | | INTERP | | | [facility] | | [...] | | Product | | | [facility] | | | [facility] | | | MEDICAL | | | | | | CENTER - | | | | | | BLOOD BANK | | + + + + + + | Blood | [id number] | | [facility] | | | Product | | | [facility] | | | Expiration | | | MEDICAL | | | Date and | | | CENTER - | | | Time | | | BLOOD BANK | | + + + + + + | Product | [id number] | | [facility] | | | Blood Type | | | [facility] | | | Barcode | | | [...] St | [place] | | | [facility] | | [address] | | | - BLOOD BANK | [...] + | [facility] | [address] | [place] | [phone] | | [facility] | | [address] | | | - LABORATORY | | [...] - 1.030 | [facility] | | | [place], | | | [facility] | | [...] | | | Urine | | | [facility] | | | | | | MEDICAL | | | | | | CENTER - | | | | | | LABORATORY | | + + + + + + | Ketones, | Negative | Negative | [facility] | | | Urine | | | [facility] | | [...] ST. | [address] | [place], [place] | [phone] | | [facility] | | [address] | | | - LABORATORY | | [...] | | Screen | | | [facility] | | [...] St | [place] | | | [facility] | | [address] | | | - BLOOD BANK | [...] + | [facility] | [address] | [place] | [phone] | | [facility] | | [address] | | | - LABORATORY | | [...] mL/min/1.73m2 | [facility] | | | Indonesian | RATE,ESTIMATED | | MEDICAL | | | | mL/min/1.38r1Shuz than | | CENTER - | | [address] | [place] | [phone] | | [facility] | | [address] | | | - LABORATORY | | | | + + + + + CBC with Differential (12/24/2016 3:51 AM PDT) + + + + + + | Component | Value | Ref Range | Performed | Pathologist | | | | | At | Signature | + + + + + + | White Blood | 7.4 | 4.0 - 11.0 K/uL | [facility] | | | Cells | | | [facility] | | | | | | MEDICAL | | | | | | CENTER - | | | | | | LABORATORY | | + + + + + + | Red Blood | 2.36 (L) | 4.30 - 5.70 | [facility] | | | Cells | | M/uL | [facility] | [...] ST. | [address] | [place] | [phone] | | [facility] | | [address] | | | - LABORATORY | | [...] + | [facility] | [address] | [place] | [phone] | | [facility] | | [address] | | | - LABORATORY | | [...] | | | Oral Anticoagulation | | [facility] | | | | Range: 2.0 [...] [address] | [place] | [phone] | | [facility] | | [address] | | | - LABORATORY | | | | + + + + + CBC with Differential (12/23/2016 4:35 AM PDT) + + + + + + | Component | Value | Ref Range | Performed | Pathologist | | | | | At | Signature | + + + + + + | White Blood | 8.0 | 4.0 - 11.0 K/uL | [facility] | | | Cells | | | [facility] | | | | | | MEDICAL | | | | | | CENTER - | | | | | | LABORATORY | | + + + + + + | Red Blood | 2.53 (L) | 4.30 - 5.70 | [facility] | | | Cells | | M/uL | [facility] | | | | [...] + | [facility] | [address] | [place] | [phone] | | [facility] | | [address] | | | - LABORATORY | | [...] 18 | 7 - 18 mg/dL | [facility] | | | | [...] + + + + | eGFR, | 55 (L)Comment: | >=60 | [facility] | | | non- | GLOMERULAR FILTRATION | mL/min/1.73m2 | [facility] | | | Indonesian | RATE,ESTIMATED | | MEDICAL | | | | mL/min/1.22l7Dmxr than | | CENTER - | | [...] ST. | [address] | [place], [place] | [phone] | | [facility] | | [address] | | | - LABORATORY | | | | + + + + + Red Blood Cells (PRBC) - Crossmatch (12/23/2016 1:15 AM PDT) + + + + + + | Component | Value | Ref Range | Performed | Pathologist | | | | | At | Signature | + + + + + + | Product | [id number] | | [facility] | | | Code | | | [facility] | | | | | | MEDICAL | | | | | | CENTER - | | | | | | BLOOD BANK | | + + + + + + | UNIT # | [id number] | | [facility] | | | | [...] | | INTERP | | | [facility] | | [...] | | Product | | | [facility] | | | ABORh | | | MEDICAL | | | | | | CENTER - | | | | | | BLOOD BANK | | + + + + + + | Blood | [id number] | | [facility] | | | Product | | | [facility] | | | Expiration | | | MEDICAL | | | Date and | | | CENTER - | | | Time | | | BLOOD BANK | | + + + + + + | Product | 5100 | | [facility] | | | Blood Type | | | [facility] | | | Barcode | | | MEDICAL | | | | | | CENTER - | | | | | | BLOOD BANK | | + + + + + + | Product | [id number] | | [facility] | | | Code | | | [facility] | | | | | | MEDICAL | | | | | | CENTER - | | | | | | BLOOD BANK | | + + + + + + | UNIT # | [id number] | | [facility] | | | | [...] | | | INTERP | | | [facility] | | | | | | MEDICAL | | | | | | CENTER - | | | | | | BLOOD BANK | | + + + + + + | Unit Status | Transfused | | [facility] | | | | [facility] | | | | | | MEDICAL | | | | | | CENTER - | | | | | | BLOOD BANK | | + + + + + + | Blood | OPOS | | [facility] | | | Product | | | [facility] | | | [facility] | | | MEDICAL | | | | | | CENTER - | | | | | | BLOOD BANK | | + + + + + + | Blood | [id number] | | [facility] | | | Product | | | [facility] | | | Expiration | | | MEDICAL | | | Date and | | | CENTER - | | | Time | | | BLOOD BANK | | + + + + + + | Product | 5100 | | [facility] | | | Blood Type | | | [facility] | | | Barcode | | | [...] St | [place] | | | [facility] | | [address] | | | - BLOOD BANK | | | | + + + + + CBC no Differential (12/22/2016 8:14 PM PDT) + + + + + + | Component | Value | Ref Range | Performed | Pathologist | | | | | At | Signature | + + + + + + | White Blood | 8.7 | 4.0 - 11.0 K/uL | [facility] | | | Cells | | | [facility] | | | | | | MEDICAL | | | | | | CENTER - | | | | | | LABORATORY | | + + + + + + | Red Blood | 2.53 (L) | 4.30 - 5.70 [...] + | [facility] | [address] | [place] | [phone] | | [facility] | | [address] | | | - LABORATORY | | [...] + | Stan, Zac Results In - 12/22/2016 2:46 PM PDT [...] | non- | FILTRATION | mL/min/1.73m2 | [facility] | | | Indonesian | RATE,ESTIMATED | | MEDICAL | | | | mL/min/1.45b2Lfme than | | CENTER - | | [...] | | | | | mg/dL | [facility] | | | | | | MEDICAL | | | | | | CENTER - | | | | | | LABORATORY | | + + + + + + | BUN/Creatin | 16.1 | | [facility] | | | ine Ratio | | | [facility] | | | | | | MEDICAL | | | | | | CENTER - | | | | | | LABORATORY | | + + + + + + + + | Specimen | + + | Blood | + + + + + + + | Performing | Address | City/State[facility] | Phone Number | | Organization | | | | + + + + + | [facility] | [address] | [place] | [phone] | | [facility] | | [address] | | | - LABORATORY | | [...] [address] | [place] | [phone] | | [facility] | | [address] | | | - LABORATORY | | | | + + + + + CBC with Differential (12/22/2016 3:40 AM PDT) + + + + + + | Component | Value | Ref Range | Performed | Pathologist | | | | | At | Signature | + + + + + + | White Blood | 8.9 | 4.0 - 11.0 K/uL | [facility] | | | Cells | | | [facility] | | | | | | MEDICAL | | | | | | CENTER - | | | | | | LABORATORY | | + + + + + + | Red Blood | 2.55 (L) | 4.30 - 5.70 | [facility] | | | Cells | | M/uL | [facility] | [...] + | [facility] | [address] | [place] | [phone] | | [facility] | | [address] | | | - LABORATORY | | [...] postprocedural complication. Dictated and Signed by: Matthew Robbins | | | MD Doyle Electronically signed: [...] cava. Nopostprocedural complication.Dictated and Signed by: Matthew Robbins | | MD Doyle Electronically signed: 12/21/2016 [address] | [place] | [phone] | | [facility] | | [address] | | | - LABORATORY | | [...] 103 | 70 - 109 mg/dL | [facility] | | | | | | [facility] | | | | | | MEDICAL | | | | | | CENTER - | | | | | | LABORATORY | | + + + + + + | BUN | 16 | 7 - 18 mg/dL | [facility] [...] + + + + | eGFR, | 60Comment: GLOMERULAR | >=60 | [facility] | | | non- | FILTRATION | mL/min/1.73m2 | [facility] | | | Indonesian | RATE,ESTIMATED | | MEDICAL | | | | mL/min/1.76e3Rfjw than | | CENTER - | | [...] + | [facility] | [address] | [place], [place] | [phone] | | [facility] | | [address] | | | - LABORATORY | | | | + + + + + CBC with Differential (12/21/2016 3:45 AM PDT) + + + + + + | Component | Value | Ref Range | Performed | Pathologist | | | | | At | Signature | + + + + + + | White Blood | 8.8 | 4.0 - 11.0 K/uL | [facility] | | | Cells | | | [facility] | | | | | | MEDICAL | | | | | | CENTER - | | | | | | LABORATORY | | + + + + + + | Red Blood | 2.88 (L) | 4.30 - 5.70 | [facility] | | | Cells | | M/uL | [facility] | | | | [...] | | | | | | [facility] | | [...] | + + + + + | [facility] | [address] | [place] | [phone] | | [facility] | | [address] | | | - LABORATORY | | [...] + | [facility] | [address] | [place] | [phone] | | [facility] | | [address] | | | - LABORATORY | | [...] + | [facility] | [address] | [place], [place] | [phone] | | [facility] | | [address] | | | - LABORATORY | | [...] represent a pneumonia.Dictated and Signed by: Matthew Robbins | | MD Doyle Electronically signed: 12/20/2016 [...] [address] | [address] | [place], [place] | [phone] | | [facility] | | [address] | | | - LABORATORY | | [...] [address] | [place] | [phone] | | [facility] | | [address] | | | - LABORATORY | | [...] + | [facility] | [address] | [place] | [phone] | | [facility] | | [address] | | | - LABORATORY | | [...] | | | in | | | [facility] | | | | | | MEDICAL | | | | | | CENTER - | | | | | | LABORATORY | | + + + + + + | Comment | Comment: < 0.50 | | [facility] | | | | ng/mL:Procalcitonin | | [facility] | | | | levels below 0.50 [...] [address] | [place] | [phone] | | [facility] | | [address] | | | - LABORATORY | | [...] [address] | [place] | [phone] | | [facility] | | [address] | | | - LABORATORY | | [...] + | [facility] | [address] | [place] | [phone] | | [facility] | | [address] | | | - LABORATORY | | | | + + + + + PRODUCT: Plasma (12/20/2016 7:15 AM PDT) + + + + + + | Component | Value | Ref Range | Performed | Pathologist | | | | | At | Signature | + + + + + + | Product | [id number] | | [facility] | | | Code | | | [facility] | | | | | | MEDICAL | | | | | | CENTER - | | | | | | BLOOD BANK | | + + + + + + | UNIT # | [id number] | | [facility] | | | | | | [facility] | | | | | | MEDICAL | | | | | | CENTER - | | | | | | BLOOD BANK | | + + + + + + | UNIT ABO | O | | [facility] | | | | | | [facility] | | | | | | MEDICAL | | | | | | CENTER - | | | | | | BLOOD BANK | | + + + + + + | UNIT RH | POS | | [facility] | | | | | | [facility] | | | | | | MEDICAL | | | | | | CENTER - | | | | | | BLOOD BANK | | + + + + + + | Unit Status | Transfused | | [facility] | | | | | | [facility] | | | | | [...] + + + + | Blood | [id number] | | [facility] | | | Product | | | [facility] | | | Expiration | | | MEDICAL | | | Date and | | | CENTER - | | | Time | | | BLOOD BANK | | + + + + + + | Product | 5100 | | [facility] | | | Blood Type | | | [facility] | | | Barcode | | | MEDICAL | | | | | | CENTER - | | | | | | BLOOD BANK | | + + + + + + | Product | [id number] | | [facility] | | | Code | | | [facility] | | | | | | MEDICAL | | | | | | CENTER - | | | | | | BLOOD BANK | | + + + + + + | UNIT # | [id number] | | [facility] | | | | [...] | | | | | | [facility] | | [...] + + + + | Blood | [id number] | | [facility] | | | Product | | | [facility] | | | Expiration | | | MEDICAL | | | Date and | | | CENTER - | | | Time | | | BLOOD BANK | | + + + + + + | Product | 5100 | | [facility] | | | Blood Type | | | [facility] | | | Barcode | | | MEDICAL | | | | | | CENTER - | | | | | | BLOOD BANK | | + + + + + + | Product | [id number] | | [facility] | | | Code | | | [facility] | | | | | | MEDICAL | | | | | | CENTER - | | | | | | BLOOD BANK | | + + + + + + | UNIT # | [id number] | | [facility] | | | | [...] | | Product | | | [facility] | | | [facility]OR[facility] | | | MEDICAL | | | | | | CENTER - | | | | | | BLOOD BANK | | + + + + + + | Blood | [id number] | | [facility] | | | Product | | | [facility] | | | Expiration | | | MEDICAL | | | Date and | | | CENTER - | | | Time | | | BLOOD BANK | | + + + + + + | Product | 5100 | | [facility] | | | Blood Type | | | [facility] | | | Barcode | | | MEDICAL | | | | | | CENTER - | | | | | | BLOOD BANK | | + + + + + + | Product | [id number] | | [facility] | | | Code | | | [facility] | | | | | | MEDICAL | | | | | | CENTER - | | | | | | BLOOD BANK | | + + + + + + | UNIT # | [id number] | | [facility] | | | | [...] | | | | | | [facility] | | [...] | | Product | | | [facility] | | | ABORh | | | MEDICAL | | | | | | CENTER - | | | | | | BLOOD BANK | | + + + + + + | Blood | [id number] | | [facility] | | | Product | | | [facility] | | | Expiration | | | MEDICAL | | | Date and | | | CENTER - | | | Time | | | BLOOD BANK | | + + + + + + | Product | 5100 | | [facility] | | | Blood Type | | | [facility] | | | Barcode | | | [...] St | [place] | | | [facility] | | [address] | | | - BLOOD BANK | [...] + | [facility] | [address] | [place] | [phone] | | [facility] | | [address] | | | - LABORATORY | | | | + + + + + CBC no Differential (12/20/2016 4:18 AM PDT) + + + + + + | Component | Value | Ref Range | Performed | Pathologist | | | | | At | Signature | + + + + + + | White Blood | 8.0 | 4.0 - 11.0 K/uL | [facility] | | | Cells | | | [facility] | | | | | | MEDICAL | | | | | | CENTER - | | | | | | LABORATORY | | + + + + + + | Red Blood | 2.87 (L) | 4.30 - 5.70 [...] + | [facility] | [address] | [place] | [phone] | | [facility] | | [address] | | | - LABORATORY | | [...] eGFR, | 58 (L)Comment: | >=60 | [facility] | | | non- | GLOMERULAR FILTRATION | mL/min/1.73m2 | [facility] | | | Indonesian | RATE,ESTIMATED | | MEDICAL | | | | mL/min/1.43w9Ffsz than | | CENTER - | | [...] [address] | [place] | [phone] | | [facility] | | [address] | | | - LABORATORY | | [...] | | coagulase positive | | [facility] | | | [...] ST. | [address] | [place], [place] | [phone] | | [facility] | | [address] | | | - LABORATORY | | [...] + | Stan, Zac Results In - 12/19/2016 7:25 PM PDT [...] + + | Performing | Address | City/State[facility] | Phone Number | | Organization [...] | + +---------+ + + Protime INR (12/19/2016 3:06 PM PDT) + + + [...] [address] | [place] | [phone] | | [facility] | | [address] | | | - LABORATORY | | | | + + + + + CBC no Differential (12/19/2016 6:18 AM PDT) + + + + + + | Component | Value | Ref Range | Performed | Pathologist | | | | | At | Signature | + + + + + + | White Blood | 6.6 | 4.0 - 11.0 K/uL | [facility] | | | Cells | | | [facility] | | | | | | MEDICAL | | | | | | CENTER - | | | | | | LABORATORY | | + + + + + + | Red Blood | 3.60 (L) | 4.30 - 5.70 | [facility] | | | Cells | | M/uL | [facility] | [...] + | [facility] | [address] | [place] | [phone] | | [facility] | | [address] | | | - LABORATORY | | [...] (H) | 7 - 18 mg/dL | [facility] | | | | | | [facility] | | | | | | MEDICAL | | | | | | CENTER - | | | | | | LABORATORY | | + + + + + + | Creatinine | 1.23 | 0.60 - 1.30 | [facility] | | | | | mg/dL | [facility] | | | | | | MEDICAL | | | | | | CENTER - | | | | | | LABORATORY | | + + + + + + | eGFR, | 56 (L)Comment: | >=60 | [facility] | | | non- | GLOMERULAR FILTRATION | mL/min/1.73m2 | [facility] | | | Indonesian | RATE,ESTIMATED | | MEDICAL | | | | mL/min/1.17x1Xjel than | | CENTER - | | [...] [address] | [place] | [phone] | | [facility] | | [address] | | | - LABORATORY | | [...] [address] | [place] | [phone] | | [facility] | | [address] | | | - LABORATORY | | [...] | | Screen | | | [facility] | | [...] St | [place] | | | [facility] | | [address] | | | - BLOOD BANK | | | | + + + + + Maria Elenaime INR (12/19/2016 6:17 AM PDT) + + [...] + | [facility] | [address] | [place], [place] | [phone] | | [facility] | | [address] | | | - LABORATORY | | [...] | | | | ROMERO FULLER MD ([id number]) | | | | | | on [...] for comparison only - no result from [facility]. | [facility] | + + + [...] for comparison only - no result from [facility]. | [facility] | + + + [...] for comparison only - no result from [facility]. | [facility] | + + + [...] PDT | | | | | Starting Tu12/25/16 at 0956, 2 | | | | [...] | | | | | dose on [facility] 12/27/16 at 1015 | | [...]
--- OUTSIDE RECORDS SUMMARY | ~2020-02-23 | XMS | Encounter Summary ---
Demographics + + + | Address | [address] | | | [place] [address] | + + + | Home Phone | | + + + | Preferred Language | Unknown | + + + | Marital Status | | + + + | Gnosticist Affiliation | Unknown | + + + | Race | Unknown | + + + | Ethnic Group | Unknown | + + + Author + + + | Author | [facility] | | | and [place] | + + + | Organization | [facility] | | | [...] [place] | | | | | [address] | | + + + + + Care Team Providers + +------+ + | Care Rehabilitation Caseworker Name | Role | Phone | + [...] | [facility] | [address] | | | | | IMAGING [address] | Loni [address]ER | | | | | [address] | [place] [address] | | | | | [place] [address] | | | | | | [phone] | | | +--------+ + + + [...] [address] | | | | | | [place] [address] | | | | | | [phone] | | | | | | | [...]
--- OUTSIDE RECORDS SUMMARY | ~2020-02-23 | XMS | Encounter Summary ---
Demographics + + + | Address | [address] | | | [place] [address] | + + + | Home Phone | | + + + | Preferred Language | Unknown | + + + | Marital Status | | + + + | Hindu Affiliation | Unknown | + + + | Race | Unknown | + + + | Ethnic Group | Unknown | + + + Author + + + | Author | [facility] | | | and [place] | + + + | Organization | [facility] | | [...] [place] | | | | | [address] | | + + + + + Care Team Providers + +------+ + | Care Four Roll Calender Operator Name | Role | Phone | + +------+ + | Carlos Alberto Galeas MD | PCP | | + +------+ + Encounter Details +--------+ + + + + | Date | Type | Department | Care Team | Description | +--------+ + + + + | 02/03/ | Hospital | [facility] | Carlos Alberto Galeas | Loss of weight | | 2018 | Encounter | MED CTR XRAY [address] | [address] | | | | | [place] | [place] | | | | | [place] [address] | [place] [address] | | | | | [phone] | [phone] | | | | | | | [...] [address] | | | | | | [place] [address] | | | | | | [phone] | | | | | | | | +--------+---------+ + + + documented as of this encounter Procedures + +--------+ + + + | Procedure Name | Priori | Date/Time | Associated Diagnosis | Comments | | | ty | | | | + +--------+ + + + | XR CHEST 2 VIEWS | Routin | 02/03/2018 | Loss of weight | Results for this | | | e | 8:09 AM | | procedure are in the | | | | PDT | | results section. | + +--------+ + + + documented in this encounter Results XR Chest 2 Vws (02/03/2018 8:09 AM PDT) + + | Specimen | + + | | + + + + + | Narrative | Performed At | + + + | XR CHEST 2 VIEWS 02/03/2018 8:09 AM HISTORY: ABN WT LOSS. | [facility] | | COMPARISON: Multiple priors. Findings: The heart is mildly | | | enlarged. There is atherosclerosis and tortuosity of the aorta. | | | Mediastinum is unremarkable. Central pulmonary vasculature is normal. | | | Mild diffuse scarring are present of the bilateral lungs. There is | | | mild spondylosis. Mild wedging of multiple vertebral bodies are seen | | | at the thoracolumbar junction. IMPRESSION - No acute findings. | | | Mild cardiomegaly. Dictated and Signed by: Nikko Morejon MD | | | Electronically signed: 02/03/2018 10:53 AM | | + + + + + | Procedure Note | + + | Stan, Rad Results In - 02/03/2018 10:56 AM PDT XR CHEST 2 VIEWS 02/03/2018 8:09 AM | | | | HISTORY: ABN WT LOSS. | | | | COMPARISON: Multiple priors. | | | | Findings: | | The heart is mildly enlarged. There is atherosclerosis and tortuosity of the | | aorta. Mediastinum is unremarkable. Central pulmonary vasculature is normal. | | Mild diffuse scarring are present of the bilateral lungs. There is mild | | spondylosis. Mild wedging of multiple vertebral bodies are seen at the | | thoracolumbar junction. | | | | IMPRESSION - | | No acute findings. | | | | Mild cardiomegaly. | | | | Dictated and Signed by: Nikko Morejon MD | | Electronically signed: 02/03/2018 10:53 AM | + + + +---------+ + + | Performing | Address | City/State/Zipcode | Phone Number | | Organization | | | | + +---------+ + + | [facility] | | | | + +---------+ + + documented in this encounter Visit Diagnoses + + | Diagnosis | + + | Loss of weight | + + documented in this encounter"
--- OUTSIDE RECORDS SUMMARY | ~2020-02-23 | XMS | Encounter Summary ---
Demographics + + + | Address | [address] | | | [place] [address] | + + + | Home Phone | | + + + | Preferred Language | Unknown | + + + | Marital Status | | + + + | Orthodox Affiliation | Unknown | + + + | Race | Unknown | + + + | Ethnic Group | Unknown | + + + Author + + + | Author | [facility] | | | and [place] | + + + | Organization | [facility] | | | and [...] [place] | | | | | [address] | | + + + + + Care Team Providers + +------+ + | Care Door Repairer Bus Name | Role | Phone | + [...] | | | [address] | [place] [address] | | | | | [place] [address] | | | | | | [phone] | | | +--------+ + + + [...] | | | | | | [place] [address] | | | | | | [phone] | | | | | | | | +--------+---------+ + + + documented as of this encounter Procedures + +--------+ + + + | Procedure Name | Priori | Date/Time | Associated Diagnosis | Comments | | | ty | | | | + +--------+ + + + | XR CHEST 2 VIEWS | Routin | 12/29/2010 | | Results for this | | | e | 9:15 AM | | procedure are in the | | | | PDT | | results section. | + +--------+ + + + documented in this encounter Results XR Chest 2 Vws (12/29/2010 9:15 AM PDT) + + | Specimen | [...]
--- OUTSIDE RECORDS SUMMARY | ~2020-02-23 | XMS | Encounter Summary ---
Demographics + + + | Address | [address] | | | [place] [address] | + + + | Home Phone [...] | Organization | [facility] [...] [place] | | | | | [address] | | + + + + + Care Team Providers + +------+ + | Care Crester Name | Role | Phone | + [...] | steal | MD, FACS | W Bryant | | | | | syndrome | [address] | [place], | | | | | 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[place] | [place] [address] | | | | | carotid | [place], [place] | Phone: | | | | | artery, | [address] | [phone] | | | | | unspecified | Phone: | Fax: | | | | | laterality | [phone] | [phone] | | | | | Peripheral | Fax: | | | | | | arterial | [phone] | | | | | | disease | | | | | | | (HCC) | | | | | | | Procedures | | | | | | | MO IV | | | | | | | INFUSION, | | | | | | | HYDRATION, | | | | | | | 31-60 MIN | | | | | | | MO IV | | | | | | | INFUSION, | | | | | | | HYDRATION, | | | | | | | EA ADD HOUR | | | | | | | MO NORMAL | | | | | | [...] | Subclavian | Michael I, | [place] | | | | | steal | , FACS | [place], | | | | | syndrome | [address] | [place] [address] | | | | | 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[place] | Phone: | | | | | carotid | [place], [place] | [phone] | | | | | artery, | [address] | Fax: | | | | | unspecified | Phone: | [phone] | | | | | laterality | [phone] | | | | | | Peripheral | Fax: | | | | | | arterial | [phone] | | | | | | disease [...] | | arterial | MD Dylan | [address] | | | | | disease | [address] | | | | | ([facility]) | [place]IE AGUILAR | [place], | | | | | Procedures | [place], | [place] [address] | | | | | MO OFFICE | [place] [address] | Phone: | | | | | OUTPATIENT | Phone: | [phone] | | | | | NEW 45 | [phone] | Fax: | | | | | MINUTES | Fax: | [phone] | | | | | | [phone] | | +--------+--------+ + + + + Encounter Details +--------+---------+ + + + | Date | Type | Department | Care Team | Description | +--------+---------+ + + + | 02/10/ | Office | [facility] | Field, Michael | 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 Max Delaney at [facility] in [place], [place]. Right femoral to below-knee popliteal reverse saphenous vein graft, right common femoral en darterectomy with Vascu-Guard patch angioplasty, right external iliac stent angioplasty, ang iography, harvesting right greater saphenous vein performed by Max Delaney at [facility] in [place], [place]. Intramedullary yulisa fixation, right femur on 12/18/[address] Mancuso Carotid : Patient states he had a stroke 4 years ago when he lived in [place], [place]. States he rememb ers when he [...] he had RIGHT side carotid endarterectomy in [place], [place] by Dr. Powell. Reports occasional dizziness. [...] then 5 minutes. 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 Denies SD, chest pain o r tightness. 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 [facility] - Dr. Delaney Right thigh biopsy 10/24/2011 nonspecific chronic dermatitis Ultrasound guided access, right common femoral artery 11/30/2013 Right iliac angiography, Right femoral angiography with runoff. [facility] - Dr. Delaney Allergies Allergen Reactions Naproxen [...] TABS Take 1 tablet by mouth Daily. Leland-3 Fatty Acids (FISH OIL PO) Take 1 [...] Daily. As directed 5 mg on , Sat, Sat, Saturday or as directed by doctor. [...] intact, face symmetric, tongue protrudes midline Equal milk condenser and plantar flexion, no pronator drift, Gait [...] Carlos Alberto Galeas,* documented in this encounter Miscellaneous Notes Addendum Note - Sherrill Darnell RN - 02/10/2018 1:30 PM PDT Addended by: SHERRILL DARNELL on : 02/13/2018 08:57 Modules accepted: Orders ddendum Note - Sherrill Lane RN - 02/10/2018 1:30 PM PDT Addended by: SHERRILL DARNELL on: 02/10/2018 16:48 Modules accepted: Orders documented in this e ncounter Plan of Treatment +--------+---------+ + + + | Date | Type | Specialty | Care Team | Description | +--------+---------+ + + + | 08/04/ | Office | Cardiology | Anusha Lomax | | | 2020 | Visit | | [address] | | | | | | [address] | | | | | | [place] [address] | | | | | | [phone] | | | | | | | [...] The parapharyngeal, retropharyngeal, and | | | vice president of instruction spaces are normal. Complete fatty atrophy of [...] | | left proximal ICA (series 4, fcmaw287 and coronal series 602, image 70).Vertebrals: Left [...] nodularity as well as numerous | | iajn-mu-tucstbiwrr opacities seen throughout both lungs with relative [...] of groundglass nodularity as well as numerous lmzn-om-ztierkdrpp | | opacities seen throughout both lungs [...] | 1.22 | 0.60 - 1.30 | [facility] | | | | | mg/dL | [facility] | | | | | | MEDICAL | | | | | | CENTER - | | | | | | LABORATORY | | + + + + + + | eGFR, | 56 (L)Comment: | >=60 | [facility] | | | non- | GLOMERULAR FILTRATION | mL/min/1.73m2 | [facility] | | | Bulgarian | RATE,ESTIMATED | | MEDICAL | | | | mL/min/1.06d6Ahde than | | CENTER - | | [...] ST. | [address] | [place], [place] | [phone] | | [facility] | | [address] | | | - LABORATORY | | [...]
--- OUTSIDE RECORDS SUMMARY | ~2020-02-23 | XMS | Encounter Summary ---
Demographics + + + | Address | [address] | | | [place] [address] | + + + | Home Phone | | + + + | Preferred Language | Unknown | + + + | Marital Status | | + + + | Gnosticism Affiliation | Unknown | + + + | Race | Unknown | + + + | Ethnic Group | Unknown | + + + Author + + + | Author | [facility] | | | and [place] | + + + | Organization | [facility] | | | [...] [place] | | | | | [address] | | + + + + + Care Team Providers + +------+ + | Care Grain Elevator Man Name | Role | Phone | + +------+ + | Carlos Alberto Galeas MD | PCP | | + +------+ + Encounter Details +--------+ + + + + | Date | Type | Department | Care Team | Description | +--------+ + + + + | 02/05/ | Abstract | [facility] | Provider, | | | 2018 | | SURGERY [address] | MD Usha [address] | | | | | [place] | [place]oni [place]. | | | | | [address] | [place] [address] | | | | | [phone] | | | +--------+ + + + [...] [address] | | | | | | [place] [address] | | | | | | [phone] | | | | | | | | +--------+---------+ + + + documented as of this encounter Visit Diagnoses Not on filedocumented in this encounter"
--- OUTSIDE RECORDS SUMMARY | ~2020-02-23 | XMS | Encounter Summary ---
Demographics + + + | Address | [address] | | | [place] [address] | + + + | Home Phone | | + + + | Preferred Language | Unknown | + + + | Marital Status | | + + + | Anabaptism Affiliation | Unknown | + + + | Race | Unknown | + + + | Ethnic Group | Unknown | + + + Author + + + | Author | [facility] | | | and [place] | + + + | Organization | [facility] | [...] [place] | | | | | [address] | | + + + + + Care Team Providers + +------+ + | Care Carton Filling Machine Operator Name | Role | Phone | [...] | | | | VAS Carotid | [address] | | | | | | Duplex | Phone: | | | | | | Bilateral | [phone] | | | | | | | Fax: | | | | | | | [phone] | | +--------+--------+ + + + + Encounter Details +--------+ + + + + | Date | Type | Department | Care Team | Description | +--------+ + + + + | 07/02/ | Orders Only | [facility] | Peggy Cason DNP | Carotid stenosis, | | 2019 | | VASCULAR SURGERY | [address] | bilateral (Primary | | | | [address] [place] | [place] | Dx) | | | | [place] | [address] | | | | | [address] | | | | | | [phone] | | | +--------+ + + + [...] [address] | | | | | | [place] [address] | | | | | | [phone] | | | | | | | [...]
--- OUTSIDE RECORDS SUMMARY | ~2020-02-23 | XMS | Encounter Summary ---
Demographics + + + | Address | [address] | | | [place] [address] | + + + | Home Phone | | + + + | Preferred Language | Unknown | + + + | Marital Status | | + + + | Mormon Affiliation | Unknown | + + + | Race | Unknown | + + + | Ethnic Group | Unknown | + + + Author + + + | Author | [facility] | | | and [place] | + + + | Organization | [facility] [...] [place] | | | | | [address] | | + + + + + Care Team Providers + +------+ + | Care Bilingual Instructor Name | Role | Phone | [...] | | | | | Index | [address] | | | | | | Resting | Phone: | | | | | | | [phone] | | | | | | | Fax: | | | | | | | [phone] | | +--------+--------+ + + + + [...] | | | | | Index | [address] | | | | | | Resting | Phone: | | | | | | | [phone] | | | | | | | Fax: | | | | | | | [phone] | | +--------+--------+ + + + + Encounter Details +--------+ + + + + | Date | Type | Department | Care Team | Description | +--------+ + + + + | 09/29/ | Hospital | [facility] | Osmin Garber MD | Critical lower limb | | 2020 | Encounter | VASCULAR SURGERY | [address] | ischemia | | | | ULTRASOUND [address] | | | | | [address] | [place] [address] | | | | | [place], [place] | [phone] | | | | | [address] | | | | | | [phone] | | | +--------+ + + + [...] [address]ARP | | | | | | [place] [address] | | | | | | [phone] | | | | | | | [...] | [facility] | | INFORMATION: Left TRUCK LOADER OVERHEAD CRANE endarterectomy and iliac stents. | | | [...] TBI: 0.91 | | | Waveforms: Triphasic PUNCH PRESS OPERATOR HELPER, monophasic DP LEFT Dorsalis Pedis: 194 | [...] | | CLINICAL INFORMATION: | | Left TRUCK LOADER OVERHEAD CRANE endarterectomy and iliac stents. | | | [...] | TBI: 0.91 | | Waveforms: Triphasic PUNCH PRESS OPERATOR HELPER, monophasic DP | | | | LEFT [...] + + | Critical lower limb ischemia Unspecified circulatory system disorder | + + documented in this encounter"
--- OUTSIDE RECORDS SUMMARY | ~2020-02-23 | XMS | Clinical Summary ---
Demographics + + + | Address | [address] | | | [place] [address] | + + + | Home Phone | | + + + | Preferred Language | Unknown | + + + | Marital Status | | + + + | Orthodoxy Affiliation | Unknown | + + + | Race | Unknown | + + + | Ethnic Group | Unknown | + + + Author + + + | Author | [facility] | | | and [place] | + + + | Organization | [facility] | | [...] [place] | | | | | [address] | | + + + + + Care Team Providers + +------+ + | Care Seismographer Name | Role | Phone | + [...] 1:55 PM | +---+ + + + +--------+---+------+------+-------+ | digoxin (LANOXIN) | Take 125 mcg by | | 0 | 05/0 | | Activ | | 125 mcg tablet | mouth. | | | 2/20 | | e | | | | | | 18 | | | + + +--------+---+------+------+-------+ | furosemide (LASIX) | Take 20 mg by mouth. | | 0 | | | Activ | | 20 mg tablet | | | | | | e | + + +--------+---+------+------+-------+ | warfarin | Take 3 mg by mouth | | 0 | | | Activ | | (COUMADIN) 3 MG | Daily . | | | | | e | | tablet | | | | | | | + + +--------+---+------+------+-------+ | metoprolol | Take 25 mg by mouth | | 0 | | | Activ | | tartrate (LOPRESSOR) | 2 times daily. | | | | | e | | 25 mg tablet | | | | | | | + + +--------+---+------+------+-------+ | AARON-CON M20 20 | | | 0 | 02/1 | | Activ | | MEQ ER tablet | | | | /20 | | e | | | | | | 19 | | | + + +--------+---+------+------+-------+ | tocopherol | vitamin E (dl, | | 0 | | | Activ | | (VITAMIN E) 400 | acetate) 400 unit | | | | | e | | units capsule | capsule Take by oral | | | | | | | | route. | | | | | | + + +--------+---+------+------+-------+ | Ascorbic Acid | Take 1 capsule by | | 0 | | | Activ | | (VITAMIN C) 500 MG | mouth Daily. | | | | | e | | CAPS | | | | | | | + + +--------+---+------+------+-------+ | clopidogrel | Take 1 tablet by | 60 | 3 | 03/0 | | Activ | | (PLAVIX) 75 mg | mouth Daily. | tablet | | 2/20 | | e | | tablet | | | | 20 | | | + + +--------+---+------+------+-------+ | warfarin | Take 5 mg by mouth | | 0 | | 07/0 | Disco | | (COUMADIN) 5 mg | Daily. 5 mg on , | | | | 8/20 | ntinu | | tablet | Sat, , Sat, | | | | 20 | ed | | | Sun | | | | | (Ther | | | | | | | | apy | | | | | | | | compl | | | | | | | | eted) | + + +--------+---+------+------+-------+ | amiodarone | Take 1 tablet by | 60 | 3 | 03/0 | 07/0 | Disco | | (PACERONE) 200 mg | mouth Daily. | tablet | | 5/20 | 8/20 | ntinu | | tablet | | | | 20 | 20 | ed | | | | | | | | (Ther | | | | | | | | apy | | | | | | | | compl | | | | | | | | eted) | + + +--------+---+------+------+-------+ Active Problems + + + | Problem | Noted Date | + + + | Postprocedural hypotension | 09/13/2019 | + + + | Chronic diastolic heart failure | 09/11/2019 | + + + | Stage 3 chronic kidney disease | 09/11/2019 | + + + | Chronic anemia | 09/11/2019 | + + + | Bilateral carotid artery [...] Date | + + + + | Atrial fibrillation with RVR | 09/13/19 | | | | 20 | 0 | + + + + | Cellulitis of left thigh | 09/13/19 | | | | 20 | 0 | + + + + | PAD (peripheral artery disease) | 09/02/19 | | | | 20 | 0 | + + + + + + | Overview: Added automatically from request for surgery | | [id number] | + + + + + + | Acute erythematous eruption of skin | 06/10/20 | | | | 18 | 9 | + + + + | Decreased GFR | 02/14/20 | | | | 18 | 9 | + + + + | Hypotension | 02/07/20 | | | | 18 | 0 | + + + + | Parotiditis [...] + + + + | 02/03/ | Telephone | Cardiology | Paolo Selby, | LABS (LAB ENTRY | | 2019 | | | MD | 08/10/2019) | +--------+ + + + + | 01/26/ | Office | Cardiology | Paolo Selby, | Chronic atrial | | 2019 | Visit | | | fibrillation | | | | | | (Primary Dx); | | | | | | Chronic diastolic | | | | | | heart failure (HCC); | | | | | | Essential | | | | | | hypertension; Stage | | | | | | 3 chronic kidney | | | | | | disease (HCC) | +--------+ + + + + | 01/10/ | Telephone | Vascular Surgery | Osmin Garber MD | Imaging (follow up ) | | 2019 | | | | | +--------+ + + + + | 11/24/ | Telephone | Vascular Surgery | Osmin Garber MD | Medication Question | | 2019 | | | | (Coumadin) | +--------+ + + + + from [...] + +---------+ + | Not Currently | | | no alcohol for years | + [...] + + + | Blood Pressure | 86/60 | 01/27/2020 3:27 PM | | | | | PDT | | + + + + + | Pulse | 57 | 01/27/2020 3:27 PM | | | | | PDT [...] + + + | Oxygen Saturation | 93% | 01/27/2020 3:27 PM | | | | | PDT | | + + + + + | Inhaled Oxygen | - | - | | | Concentration | | | | + + + + + | Weight | 71.7 kg (158 lb) | 01/27/2020 3:27 PM | | | | | PDT | | + + + + + | Height | 175.3 cm (5' 9") | 01/27/2020 3:27 PM | | | | | PDT | | + + + + + | Body Mass Index | 23.33 | 01/27/2020 3:27 PM | | | | | PDT [...] [place]ARP | | | | | | [place] [address] | | | | | | [phone] | | | | | | | | +--------+---------+ + + + + + + + + | Health Maintenance | Due Date | Last | Comments | | | | Done | | + + + + + | Medication | | | | | Management | 3 | | | + + [...] | + + + + + | Med Mgmt: INR | | 09/20/19 | | | | 0 | 20, | | | | | 09/19/19 | | | | | 20, | | | | | 09/18/19 | | | | | 20, | | | | | Addition | | | | | al | | | | | history | | | | | exists | | + + + + + | Vaccine: Influenza | | 04/03/20 | | | (#1) | 0 | 18, | | | | | 03/31/20 | | | | | 17, | | | | | 04/19/20 | | | | | 16, | | | | | Addition | | | | | al | | | | | history | | | | | exists | | + + + + + | Med Mgmt: ECG | | 09/12/19 | | | | 1 | 20, | | | | | 06/10/20 | | | | | 19, | | | | | 12/19/19 | | | | | 17, | | | | | Addition | | | | | al | | | | | history | | | | | exists | | + + + + + | Med Mgmt: Ca | | 09/20/19 | | | | 1 | 20, | | | | | 09/19/19 | | | | | 20, | | | | | 09/18/19 | | | | | 20, | | | | | Addition | | | | | al | | | | | history | | | | | exists | | + + + + + | Med Mgmt: Cr | | 09/20/19 | | | | 1 | 20, | | | | | 09/19/19 | | | | | 20, | | | | | 09/18/19 | | | | | 20, | | | | | Addition | | | | | al | | | | | history | | | | | exists | | + + + + + | Med Mgmt: K | | 09/20/19 | | | | 1 | 20, | | | | | 09/19/19 | | | | | 20, | | | | | 09/19/19 | | | | | 20, | | | | | Addition | | | | | al | | | | | history | | | | | exists | | + + + + + | Med Mgmt: Mg | | 09/20/19 | | | | 1 | 20, | | | | | 09/19/19 | | | | | 20, | | | | | 09/18/19 | | | | | 20, | | | | | Addition | | | | | al | | | | | history | | | | | exists | | + + + + + | Med Mgmt: Na | | 09/20/19 | | | | 1 | 20, | | | | | 09/19/19 | | | | | 20, | | | | | 09/18/19 | | | | | 20, | | | | | Addition | | | | | al | | | | | history | | | | | exists | | + + + + + | Vaccine: | Completed | 03/31/20 | | | Pneumococcal 65+ | | 17, | | | | | 04/14/20 | | | | | 15, | | | | | 04/22/20 | | | | | 07 | | + + + + + [...] 01/18/ | 04.038 | | Strl - [id number]: | c | Femur | SYNTHES - | | 2025 | .305S | | Qty: 1 on 12/19/2016 by | | | SYNT | | | / | | Lambert Mancuso MD at [facility] | | | | | | /[id number] | | [facility] | | | | | | 60 [...] Osmin Garber, | | al | - POB | | | /N/A | | at [facility] | | | | | | /[id number] | [facility] | | | | | | 10-141 | | | | | | | | 6142 | + +--------+--------+ +--------+--------+--------+ | Nail Fem Rg Ex [id number] - | Nail | Right: | [facility] DEPUY | | 02/18/ | 04.013 | | [id number]: Qty: 1 on | | Femur | SYNTHES - | | 2024 | .764S | | 12/19/2016 by Lambert Mancuso | | | SYNT | | | / | | MD Dhruv at [facility] | | | | | | /[id number] | | [facility] | | | | | | 95 | + +--------+--------+ +--------+--------+--------+ | Nail Fem Tfna St 130d 56m178 | Nail | Left: | [facility] DEPUY | | 05/21/ | 04.037 | | L - [id number]: Qty: | | Femur | SYNTHES - | | 2026 | .245S | | 1 on 12/19/2016 by Bartolome, | | | SYNT | | | / | | Lambert Bartlett MD at [facility] | | | | | | /[id number] | | [facility] | | | | | | 78 | + +--------+--------+ +--------+--------+--------+ | Screw Im Alonso Slf-Tp F/T | Screw | Right: | [facility] DEPUY | | | 04.005 | | 5x60mm - [id number]: | | Femur | SYNTHES - | | | .550 / | | Qty: 1 on 12/19/2016 by | | | SYNT | | | / | | Lambert Mancuso MD at [facility] | | | | | | | | [facility] | | | | | | | | CENTER | | | | | | | + +--------+--------+ +--------+--------+--------+ | Screw Im Alonso Slf-Tp F/T | Screw | Right: | [facility] DEPUY | | | 04.005 | | 5x62mm - [id number]: | | Femur | SYNTHES - | | | .552 / | | Qty: 1 on 12/19/2016 by | | | SYNT | | | / | | Lambert Mancuso MD at [facility] | | | | | | | | [facility] | | | | | | | | CENTER | | | | | | | + +--------+--------+ +--------+--------+--------+ | Screw Im Alonso Slf-Tp F/T | Screw | Right: | [facility] DEPUY | | | 04.005 | | 5x46mm - [id number]: | | Femur | SYNTHES - | | | .536 / | | Qty: 1 on 12/19/2016 by | | | SYNT | | | / | | Lambert Mancuso MD at [facility] | | | | | | | | [facility] | | | | | | | | CENTER | | | | | | | + +--------+--------+ +--------+--------+--------+ | Screw Im Alonso Slf-Tp F/T | Screw | Left: | [facility] DEPUY | | | 04.005 | | 5x44mm - [id number]: | | Femur | SYNTHES - | | | .534 / | | Qty: 1 on 12/19/2016 by | | | SYNT | | | / | | Lambert Mancuso MD at [facility] | | | | | | | | [facility] | | | | | | | | CENTER | | | | | | | + +--------+--------+ +--------+--------+--------+ | Stent Viabahn A Hep | Stent | | [facility] - | | 06/06/ | [id number] | | [id number]-1/21/2020Implanted: | | | [facility] | | 2021 | [id number] | | Qty: 1 on 09/11/2019 by | | | | | | / / | | Osmin Garber MD | | | | | | | + +--------+--------+ +--------+--------+--------+ | Stent Viabahn Vbx | | | [facility] - | | 06/21/ | [id number] | | [id number]-2/21/2020Implante | | | [facility] | | 2020 | [id number] / | | d: Qty: 1 on 09/11/2019 by | | | | | | / | | Osmin Garber MD | | | | | | | + +--------+--------+ +--------+--------+--------+ | Stent Viabahn Vbx | | | [facility] - | | 09/10/ | [id number] | | [id number]-4/21/2020Implante | | | [facility] | | 2021 | 2A | | d: Qty: 1 on 09/11/2019 by | | | | | | / | | Jovanni Peterson MD | | | | | | 812 / | + +--------+--------+ +--------+--------+--------+ Results Not on [...] +--------+ +---------+--------+ | MEDICARE | MEDICA | [id number] | 02/19/19 | [phone] | | Medica | | | RE | | 98-Pre | 5 | | re | | | PART A | | sent | | | | | | AND B | | | | | | + +--------+ +--------+ +---------+--------+ | MEDICARE | MEDICA | [id number] | 02/19/19 | [phone] | | Medica | | | RE | | 98-Pre | 5 | | re | | | PART A | | sent | | | | | | AND B | | | | | | + +--------+ +--------+ +---------+--------+ | AARP | AARP | [id number] | 10/21/19 | [phone] | | Indemn | | | MDCR | | 19-Pre | 0 | | ity | | | SUPPL | | sent | | | | + +--------+ +--------+ +---------+--------+ | AARP | AARP | [id number] | 10/21/19 | [phone] | | Indemn [...] Person | Self | [birth year] | [address] | | | al/Fam | | 1931 | [phone] | [place], [place] | | | [place]orothea | | | 5 (Home) | [address] | + +--------+ +--------+ + + | Deborah Thomason | Person | Self | [birth year] | [address] | | | al/Fam | | 1931 | [phone] | [place], [place] | | | [place] | | | 5 (Home) | [address] | + +--------+ +--------+ + + Advance Directives + + + + + | Type | Date Recorded | Patient | Explanation | | | | Corrections Lieutenant | | + + + + + | Power of | | | | | Blanket Cutter Hand | | | | + + + [...]
--- OUTSIDE RECORDS SUMMARY | ~2020-02-23 | XMS | Encounter Summary ---
Demographics + + + | Address | [address] | | | [place] [address] | + + + | Home Phone | | + + + | Preferred Language | Unknown | + + + | Marital Status | | + + + | Sabianist Affiliation | Unknown | + + + | Race | Unknown | + + + | Ethnic Group | Unknown | + + + Author + + + | Author | [facility] | | | and [place] | + + + | Organization | [facility] | | | [...] [place] | | | | | [id number] | | + + + + + Care Team Providers + +------+ + | Care Camera Tuning Engineer Name | Role | Phone | + [...] Description | +--------+---------+ + + + | 09/11/ | Surgery | [facility] | Osmin Garber MD | ENDARTERECTOMY | | 2019 | [facility] | [address] | FEMORAL | | | | OPERATING ROOM [address] | [facility] | | | | | [address] | [place] [address] | | | | | [place], [place] | [phone] | | | | | [address] | | | | | | [phone] | | | +--------+---------+ + + + [...] + + + | Blood Pressure | 130/71 | 09/11/2019 6:24 AM | | | | | PST | | + + + + + | Pulse | 65 | 09/11/2019 6:24 AM | | | | | PST | | + + + + + | Temperature | 35.9 C (96.7 F) | 09/11/2019 6:24 AM | | | | | PST | | + + + + + | Respiratory Rate | 16 | 09/11/2019 6:24 AM | | | | | PST | | + + + + + | Oxygen Saturation | 95% | 09/11/2019 6:24 AM | | | | | PST | | + + + + + | Inhaled Oxygen | - | - | | | Concentration | | | | + + + + + | Weight | 71.6 kg (157 lb 13.6 | 09/11/2019 6:24 AM | | | | oz) | [...] might be different fr om the original. [facility] Service: Hospitalist Physician Discharge Summary Patient ID: [...] the patient adamantly refused going to a senior care [facility]. The patient's son and indicated they felt comfortable with him returning home. As a r esult, he was discharged home with care of his family. bible worker was involved, in assistance with home [...] is instructed to follow up with his ships or barges loader, Dr. Selby in approximately 2 weeks. 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 PVD (peripheral vascular disease) ([facility]) 02/06/2018 PVD (peripheral vascular disease) ([facility]) Urinary retention Past Surgical History: Procedure Laterality Date ARTERY SURGERY Left 09/11/2019 Procedure: ENDARTERECTOMY FEMORAL; Surgeon: Osmin Garber MD; Location: [facility] MAIN OR CAROTID ENDARTERECTOMY Right CATARACT REMOVAL WITH IMPLANT Bilateral 03/30/10 and 04/27/10 CORONARY ANGIOPLASTY without stent [facility] Approx [id number] FEMUR FRACTURE SURGERY Right 12/19/2016 Procedure: ORIF IM RODDING FEMORAL ANTEGRADE; Surgeon: Lambert Mancuso MD; Location: [facility] MAIN OR FEMUR FRACTURE SURGERY Left 12/19/2016 Procedure: ORIF IM RODDING FEMORAL TROCHANTERIC NAIL; Surgeon: Lambert Mancuso MD; Locati on: [facility] MAIN OR Heart/ Arrhythmia ablation Right femoral to below knee popliteal reverse saphenus vein graft 12/01/2013 Right common femoral endarterectomy with Vascu-Guard patch angioplasty, Right external mk ac stent angioplasty 7x29 mm, Angiography, Harvesting right greater saphenous vein, Dual - l umen on Q pain pump placement. [facility] - Dr. Delaney Right thigh biopsy 10/24/2011 nonspecific chronic dermatitis Ultrasound guided access, right common femoral artery 11/30/2013 Right iliac angiography, Right femoral angiography with runoff. [facility] - Dr. Delaney Discharged Condition: Stable for [...] Alberto Galeas MD [address] [place] [address] In 1 week Osmin Garber MD [address] [place] [address] [id number] In 2 weeks Follow-up post vascular intervention, staple removal Paolo Selby MD [address] [facility] [id number] In 2 weeks Follow-up for atrial fibrillation 2019 1:54 PM Signed: Electronically signed by: Thor Yang MD, 2019 1:54 PM [facility] Discharge took more than 35 minutes, to include final examination, discussion of admission, and preparation of prescriptions, instructions for ongoing care, follow up and dictation of summary. Portions of this chart may have been created with RotaPost voice recognition software. Occasi onal wrong-word or [...] mg on Tu, | | | | 0 | | tablet | Wed, , Sat, | | | | | | | Sun | | | | | + + + +---------+ + + documented as of this encounter Progress Notes Medina Pitts RN - 2019 2:33 PM PSTDischarge packet given to patient. All questi ons answered. Pt will be transporting home with pt's and son. Pt sent with prescription s. haMarky sommer [facility] - 2019 1:54 PM PST Pharmacy Warfarin Monitoring: Deborah Thomason male 88 y.o., admitted for limb ischemia. He underwent planned PICKING MACHINE OPERATOR HELPER endarterectomy and angio plasty on 09/11/19. Per inner tube cutter reconciliation, warfarin was on hold since 09/03 [...] might be diff erent from the original. [facility] Service: Vascular Surgery Progress Note Hospital Day: [...] care. Chart check complete. Jenny Marie RN haMarky sommer RP - 09/19/2019 2:09 PM PST Pharmacy Warfarin Monitoring: Deborah Thomason male 88 y.o., admitted for limb ischemia. He underwent planned PICKING MACHINE OPERATOR HELPER endarterectomy and angio plasty on 09/11/19. Per inner tube cutter reconciliation, warfarin was on hold since 09/03 [...] might be dif ferent from the original. [facility] Service: Vascular Surgery Progress Note Hospital Day: [...] fracture, right 12/18/2016 Unknown Code Status: full Qiujuan Robertson, PA, PALloydC Vascular Surgery Thor Esqueda MD - 0 09/19/2019 7:56 AM PST [facility] Adult Hospitalist Progress Note Hospital Day: 8 [...] approximately 24 hours and transferred to the [facility] service on 09/18/2019. Physical therapy recommending SNF, [...] endarterectomy -Continue Plavix -PT, will require SNF; engine turner to assist with placement, patient agreeable #4. [...] this chart may have been created with RotaPost voice recognition software. Occasi onal wrong-word or [...] call wit h questions or concerns. Osmin Garber MD Vascular Surgery Anika Esqueda MD - 09/18/2019 2:11 PM PSTFormatting of this note might be different from the or iginal. [facility] Adult Hospitalist Progress Note Hospital Day: 7 [...] approximately 24 hours and transferred to the [facility] service on 09/18/2019 OBJECTIVE Vital Signs: [...] this chart may have been created with RotaPost voice recognition software. Occasi onal wrong-word or sound-alike substitutions may have occurred due to the inherent ness itations of voice recognition software. Please read the chart carefully and recognize, using context, where these substitutions have occurred Anurag Amato MD - 09/18/2019 1:24 PM PST [facility] Service: Cardiology Progress Note Hospital Day: LOS: [...] Patient was admitted and underwen t today PICKING MACHINE OPERATOR HELPER endarterectomy and angioplasty. EBL was 200-400ml. He [...] note might be different from the origin [facility] Service: Spreader Progress Note Deborah Keitaano Katelin 88 y.o. Hospital Day: LOS: 7 days [...] Code Jeramy Chapa MD 09/18/2019 Dictation software, RotaPost, was used which may contain error with [...] Patient reports chronic hypotension. Susanna Simon MD Spreader 09/18/2019 Please bill 40 minutes of critical care time spent evaluating the patient, reviewing the da ta and formulating a plan exclusive of procedures. Anurag Villa MD - 09/17/2019 5: 24 PM PST [facility] Service: Cardiology Progress Note Hospital Day: LOS: [...] Patient was admitted and underwen t today PICKING MACHINE OPERATOR HELPER endarterectomy and angioplasty. EBL was 200-400ml. He [...] Code Anurag Villa MD roctor, Elías Suarez [facility] - 09/17/2019 2:53 PM PSTFormatting of this note might be different from the origi nal. Pharmacy Warfarin Monitoring: Deborah Thomason male 88 y.o., admitted for limb ischemia. He underwent planned PICKING MACHINE OPERATOR HELPER endarterectomy and angio plasty on 09/11/19. Per inner tube cutter reconciliation, warfarin was on hold since 09/03 [...] therapy as indicated. Miesha Faust, PharmD, BCPS Kendell Nava PA - 09/17/2019 1:20 PM PST [facility] Service: Vascular Surgery Progress Note Hospital Day: LOS: 6 days Post-Op Day: 3 ASSESSMENT & PLAN POD #3, S/p Lt LIA, EIA stent, Lt PICKING MACHINE OPERATOR HELPER endarterectomy for LLE CLI, transferred to ICU for kit dobson of his CAF with RVR, chronic diastolic [...] perfused with strong signal to DP/PT. H/H 9.3/27.6 Will d/w Dr Garber. Cont current pain [...] Monroy MD - 09/17/2019 8:29 AM PST [facility] Service: Spreader Progress Note Deborah Bautista Katelin 88 y.o. Hospital Day: LOS: 6 days Post-Op Day: 6 Days Post-Op Consulting Physicians Treatment Team: Anurag Villa MD SUBJECTIVE Patient Summary:The patient is a88 y.o.malewith significant past medical his tory ofatrial fib/flutter on Coumadin, bilateral carotid artery disease with previous R ca rotid endarterectomy, CVA (without residual deficit), PVD, and [facility]wh[facility] [...] Code Jeramy Chapa MD 09/17/2019 Dictation software, RotaPost, was used which may contain error with [...] phenylephrine as BP tolerates. Susanna Simon MD Spreader 09/17/2019 Please bill 40 minutes of critical care time spent evaluating the patient, reviewing the da ta and formulating a plan exclusive of procedures. Odalys Tse, FeliD - 09/16/2019 3:56 PM PST Pharmacy Warfarin [...] and modify therapy as indicated. ODALYS TSE, Prasanna 09/16/2019 3:54 PM Maye Amato MD - 09/16/2019 9:47 AM PSTFormatting of this note might be different from the rand howell [facility] Service: Cardiology Progress Note Hospital Day: LOS: [...] Patient was admitted and underwen t today PICKING MACHINE OPERATOR HELPER endarterectomy and angioplasty. EBL was 200-400ml. He [...] Code Status: Full Code Anurag Villa MD eramy Chapa MD - 09/16/2019 8:35 AM PSTFormatting of this note might be different from the origin [facility] Service: Spreader Progress Note Deborah Thomason 88 y.o. Hospital [...] Code Jeramy Chapa MD 09/16/2019 Dictation software, RotaPost, was used which may contain error with [...] phenylephrine as BP tolerates. Susanna Simon MD Spreader 09/16/2019 1:33 PM Please bill 40 minutes of critical care time spent evaluating the patient, reviewing the da ta and formulating a plan exclusive of procedures. Kendell Robertson PA - 09/16/2019 8:[address] [facility] Service: Vascular Surgery Progress Note Hospital Day: LOS: 5 days Post-Op Day: 2 ASSESSMENT & PLAN POD #2, S/p Lt LIA, EIA stent, Lt PICKING MACHINE OPERATOR HELPER endarterectomy for LLE CLI, transferring to ICU [...] Grove MD - 09/15/2019 2:47 PM PST [facility] Service: Spreader Progress Note Deborah Thomason 88 y.o. Hospital [...] Code Jeramy Chapa MD 09/15/2019 Dictation software, RotaPost, was used which may contain error with [...] phenylephrine as BP tolerates. Susanna Simon MD Spreader [facility] 09/15/2019 4:12 PM Please bill 40 minutes of critical care time spent evaluating the patient, reviewing the da ta and formulating a plan exclusive of procedures. Karley Tobar, [facility] - 09/15/2019 2:08 PM PSTFormatting of this note might be differen t from the original. Pharmacy Warfarin Monitoring: Deborah Thomason male 88 y.o., admitted for limb ischemia. He underwent planned PICKING MACHINE OPERATOR HELPER endarterectomy and angio plasty on 09/11/19. Per inner tube cutter reconciliation, warfarin was on hold since 09/03 [...] modify therapy as indicated. Karley Tobar, PharmD, [facility] 09/15/19 2:08 PM Hai Amato MD - 09/15/2019 9:56 AM PSTFormatting of this note might be different from the [facility] Service: Cardiology Progress Note Hospital Day: [...] Patient was admitted and underwen t today PICKING MACHINE OPERATOR HELPER endarterectomy and angioplasty. EBL was 200-400ml. He [...] He denies any chest pain, SOB. Says p ain in lower extremity improving. Scheduled Medications ceFAZolin [...] Code Status: Full Code Anurag Villa MD PEIlOsmin hilliard MD - 09/15/2019 7:28 AM PSTVascular Surgery [...] I, DO - 09/14/2019 1:54 PM PST [facility] Progress Note Primary Care Physician: [...] this note might be different from the [facility] Service: Cardiology Progress Note Hospital Day: [...] Patient was admitted and underwen t today PICKING MACHINE OPERATOR HELPER endarterectomy and angioplasty. EBL was 200-400ml. He [...] niCARdipine Stopped (09/11/19 1706) phenylephrine Stopped (09/14/19 0908) PRN Medications HYDROmorphone, Magnesium replacement - NON [...] Full Code Anurag Villa MD Karley Pichardo [facility] - 09/14/2019 9:59 AM PSTRenal Dosing Monitoring: Deborah Thomason 88 y.o. male Serum creatinine: 1 mg/dL 09/13/19 0405 Estimated creatinine clearance: 51 mL/min Plan per protocol: Enoxaparin adjusted from 80 mg (1 mg/kg) daily to 80 mg (1 mg/kg) BID for creatinine cleara nce >30 mL/min. Pharmacy will continue to monitor changes in medication orders and renal function and will adjust accordingly. Karley Tobar, FeliD, [facility] 09/14/19 7:50 AM Jeramy Grove MD - 09/14/2019 8:06 AM PSTFormatting of this note might be different from the [facility] Service: Spreader Progress Note Deborah Thomason 88 y.o. Hospital [...] femoral endarterectomy and angioplasty by vascular surge ravi on 09/11. Continue Plavix, warfarin. PULM: No [...] Code Jeramy Chapa MD 09/14/2019 Dictation software, RotaPost, was used which may contain error with [...] phenylephrine as BP tolerates. Susanna Simon MD Spreader 09/14/2019 Please bill 40 minutes of critical care time spent evaluating the patient, reviewing the da ta and formulating a plan exclusive of procedures. Karley Tobar, [facility] - 09/14/2019 7:51 AM PST Pharmacy Warfarin Monitoring: Deborah Thomason male 88 y.o., admitted for limb ischemia. He underwent planned PICKING MACHINE OPERATOR HELPER endarterectomy and angio plasty on 09/11/19. Per inner tube cutter reconciliation, warfarin was on hold since 09/03 [...] modify therapy as indication. Karley Tobar, PharmD, [facility] 09/14/19 7:47 AM Jess Covarrubias DO - 09/13/2019 4:04 PM PST . [facility] Progress Note Primary Care Physician: [...] this note might be different from the [facility] Service: Cardiology Progress Note Hospital Day: [...] Patient was admitted and underwen t today PICKING MACHINE OPERATOR HELPER endarterectomy and angioplasty. EBL was 200-400ml. He [...] Code Status: Full Code Anurag Villa MD anteLani, [facility] - 09/13/2019 1:43 PM PSTFormatting of this note might be different from the origi nal. Pharmacy Warfarin Monitoring: Deborah Thomason is an 88 year old male admitted for limb ischemia. He underwent planned PICKING MACHINE OPERATOR HELPER endarterectomy and angioplasty on 09/11/19. Per inner tube cutter reconciliation, warfarin w as on hold since [...] Lockett MD - 09/13/2019 8:27 AM PST [facility] Service:hospitalist Progress Note Hospital Day: LOS: 2 [...] 5 mg Oral Once per day on Sun Sat Sat warfarin per pharmacy Other Pharmacy [...] Procedure Component Value Units Date/Time MRSA NAAT [[id number]] Collected: 09/10/19 1555 Order Status: Completed Lab Status: Final result Updated: 09/10/19 3748 Specimen: Tissue from Nares SOURCE: NARES(NOSE) Result NEGATIVE Comment: Testing performed at [facility];[address] [place] [address];[place] [address] No results found for this or any previous visit (from the past 360 hour(s)). Results for orders placed or performed in visit on 06/10/19 ECG 12 lead Result Value Ref Range INTERPRETATION TEXT Atrial fibrillation Possible Anterior infarct , age undetermined Abnormal ECG No previous ECGs available Please refer to Providers office visit note for Providers Interpretation. Confirmed by [facility] Read Only, JUAN Warren ([id number]), photograph editor Maximiliano Yee ([id number]) on 019 [...] Status: Full Code Nika Corea MD 09/13/2019 atilde, Fadia Marrero RN - 09/13/2019 6:04 AM PSTNeo running at 40 mcg/min SBP 100-120's titrated to 20 mcg/min SBP >90 will continue to monitor BP. Patient unaware that IV was removed while he was sleepi ng. Otherwise, hourly rounding uneventful. Chart check complete. Fadia Estrada RN Electronic ally signed by Fadia Clayton RN at 09/13/2019 6:05 AM Chio Ortiz RPH - 09/12/2019 9:56 PM PST Pharmacy Warfarin Monitoring: Deborah Thomason male 88 y.o., admitted for limb ischemia. He underwent planned PICKING MACHINE OPERATOR HELPER endarterectomy and angio plasty on 09/11/19. Per inner tube cutter reconciliation, warfarin was on hold since 09/03 [...] and modify therapy as indication. CHIO ORTIZ RP 9:45 PM 09/12/2019 Marc Stewart RN - 09/12/2019 6:57 PM PSTIn AM patients SBP dropped to 69-80 with MAPS 55-60. Patien t asymptomatic, trendelenburg, 500 fb and albumin, SBP in 90's with map >65. On kailee at 40-6 0 mcg for majority of shift. MD, vascular, sepsis RN and auditor in charge aware. Currently on 20 mcg of kailee with sbp 110's. End of shift chart check complete. Oma Kumar RN Ayala Covarrubias DO - 09/12/2019 5:16 PM PSTFormatting of this note might be different from the rand alberto. [facility] Progress Note Primary Care Physician: [...] for Atrial fibrillation, trend troponins to exclude NH. Electronically signed by: Jess Webber DO, 09/12/2019 5:16 PM Nika Lockett MD - 09/12/2019 8:36 AM PST [facility] Service:hospitalist Progress Note Hospital Day: LOS: 1 [...] Procedure Component Value Units Date/Time MRSA NAAT [[id number]] Collected: 09/10/19 2850 Order Status: Completed Lab Status: Final result Updated: 09/10/19 1242 Specimen: Tissue from Nares SOURCE: NARES(NOSE) Result NEGATIVE Comment: Testing performed at [facility];[address] [place] [address];[place] [address] No results found for this or any previous visit (from the past 360 hour(s)). Results for orders placed or performed in visit on 06/10/19 ECG 12 lead Result Value Ref Range INTERPRETATION TEXT Atrial fibrillation Possible Anterior infarct , age undetermined Abnormal ECG No previous ECGs available Please refer to Providers office visit note for Providers Interpretation. Confirmed by [facility] Read Only, [facility] ([id number]), photograph editor Maximiliano Yee ([id number]) on 019 [...] all B P meds and monitor, per MANAGER TRAINEE is aware Chronic diastolic HF seems stable [...] Status: Full Code Nika Corea MD 09/12/2019 atilde, Fadia Marrero RN - 09/12/2019 6:37 AM PSTPatient on 40 mcg/min of kailee. Attempted to titrate down, but SB P <90 will continue to titrate off kailee. Patient on 2-3 L NC. L groin site remained unchanged C/D/I. Patient still complains of a lot of pain while palpating site. Doppler lower extremi ty pulses. Chart check complete. Fadia Estrada, RN Karley Pichardo [facility] - 09/11/2019 6:50 PM PSTFormatting of [facility] s note might be different from the original. Pharmacy Warfarin Monitoring: Deborah Thomason male 88 y.o., admitted for limb ischemia. He underwent planned PICKING MACHINE OPERATOR HELPER endarterectomy and angio plasty on 09/11/19. Per inner tube cutter reconciliation, warfarin was on hold since 09/03 [...] modify therapy as indicated. Karley Tobar, PharmD, [facility] 09/11/19 6:49 PM documented in [facility] s encounter H&P Notes Osmin Garber MD - 09/11/2019 7:20 AM PSTI have seen and examined patient. No acute issue s. Plan for left PICKING MACHINE OPERATOR HELPER endarterectomy, LLE angiogram, possible intervention. Consent obtaine carolina Garber MD Vascular Surgery Osmin Angel MD - 09/02/2019 11:15 AM PSTFormatting of this note might be different from the origin sc. [facility] [address] [place] [address] Office: [phone] DATE OF VISIT: 09/02/2019 PATIENT NAME: Deborah Thomason : 1930; AGE: 88 y.o.; Sex:M PHONE NUMBER: ; (Work); ; PHYSICIAN: Osmin Garber MD PRIMARY CARE / REFERRING PHYSICIAN: Carlos Alberto Galeas,* / Bob Davis D / [id number] / [place] [id number] / REASON FOR EVALUATION / CHIEF COMPLAINT: PAD HISTORY OF PRESENT ILLNESS: Mr Thomason is a pleasant 88 y.o. male, with a past medical history significant for atrial flu tter, coronary artery disease, previous CVA, and peripheral vascular disease, who is referre d to [facility] for evaluation of bilateral carotid artery disease [...] and a right carotid endarterectomy done in [place] many years ago. Patient denies any recent illness, fever, chills, chest pain, or [id number]. Patie nt denies any amaurosis or stroke/TIA [...] 07/27/2019: IMPRESSION: 1. Right JEREMY showed triphasic ENVIRONMENTAL CHANGE ANALYST and monophasic DPA waveforms. 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 PVD (peripheral vascular disease) (HCC) 02/06/2018 Urinary retention Past Surgical History: Procedure Laterality Date CAROTID ENDARTERECTOMY Right CATARACT REMOVAL WITH IMPLANT Bilateral 03/30/10 and 04/27/10 CORONARY ANGIOPLASTY without stent [facility] Approx [id number] FEMUR FRACTURE SURGERY Right 12/19/2016 Procedure: ORIF [...] l umen on Q pain pump placement. [facility] - Dr. Delaney Right thigh biopsy 10/24/2011 nonspecific chronic dermatitis Ultrasound guided access, right common femoral artery 11/30/2013 Right iliac angiography, Right femoral angiography with runoff. [facility] - Dr. Delaney Social History Tobacco Use [...] peripheral edema. Rate regular. ABD: non-tender SKIN: [place], dependent rubor on left. MUSCULOSKELETAL: ROM not [...] IP CONSULT TO WOUND OSTO MY NURSE [facility] Service: Wound Care Consult Note Hospital Day: 3 SUBJECTIVE Patient Summary: Patient had angioplasty and Endarectomy 09/11 for ischemic limb. Alida ent stated he has had lateral foot wound for approximately 3 months. [facility] pain on "the littl e toe" no open wound found. Unknown cause of foot wound. Patient unable to answer when he la st got new shoes. Redness to 1st and second toes along with lateral foot wound suggests poss ible ill fitting shoes. OBJECTIVE 09/14/19 1645 Wound 09/11/19 0722 Other (comment) Left lateral foot abrasion Placement Date/Time: 09/11/19 0722 Present on Hospital Admission: Yes Primary Wound [...] Garcia RN 16:49 llis, [place] Garner , [facility] - 09/13/2019 12:38 PM PST . [facility] Service: Spreader Initial Consult Note Deborah Thomason 88 y.o. 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 PVD (peripheral vascular disease) (HCC) 02/06/2018 PVD (peripheral vascular disease) (FORMERLY [facility]) Urinary retention PAST SURGICAL HISTORY Past Surgical History: Procedure Laterality Date ARTERY SURGERY Left 09/11/2019 Procedure: ENDARTERECTOMY FEMORAL; Surgeon: Osmin Garber MD; Location: [facility] MAIN OR CAROTID ENDARTERECTOMY Right CATARACT REMOVAL WITH IMPLANT Bilateral 03/30/10 and 04/27/10 CORONARY ANGIOPLASTY without stent [facility] OR Approx [id number] FEMUR FRACTURE SURGERY Right 12/19/2016 Procedure: ORIF IM RODDING FEMORAL ANTEGRADE; Surgeon: Lambert Mancuso MD; Location: [facility] MAIN OR FEMUR FRACTURE SURGERY Left 12/19/2016 Procedure: ORIF IM RODDING FEMORAL TROCHANTERIC NAIL; Surgeon: Lambert Mancuso MD; Locati on: [facility] MAIN OR Heart/ Arrhythmia ablation Right femoral to below knee popliteal reverse saphenus vein graft 12/01/2013 Right common femoral endarterectomy with Vascu-Guard patch angioplasty, Right external mk ac stent angioplasty 7x29 mm, Angiography, Harvesting right greater saphenous vein, Dual - l umen on Q pain pump placement. [facility] - Dr. Delaney Right thigh biopsy 10/24/2011 nonspecific chronic dermatitis Ultrasound guided access, right common femoral artery 11/30/2013 Right iliac angiography, Right femoral angiography with runoff. [facility] - Dr. Delaney ALLERGIES Allergies Allergen Reactions [...] file Gets together: Not on file Attends latter-day service: Not on file Active member of [...] Abraham MD - 09/11/2019 5:15 PM PST [facility] Service: Hospitalist Consult Note Pt: Deborah Thomason [...] values. Patient was admitted and underwent today PICKING MACHINE OPERATOR HELPER endarterectomy and angioplast y. EBL was 200-400ml. 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 PVD (peripheral vascular disease) (HCC) 02/06/2018 PVD (peripheral vascular disease) (HCC) Urinary retention Past Surgical History: Procedure Laterality Date CAROTID ENDARTERECTOMY Right CATARACT REMOVAL WITH IMPLANT Bilateral 03/30/10 and 04/27/10 CORONARY ANGIOPLASTY without stent [facility] OR Approx [id number] FEMUR FRACTURE SURGERY Right 12/19/2016 Procedure: ORIF [...] l umen on Q pain pump placement. [facility] - Dr. Delaney Right thigh biopsy 10/24/2011 nonspecific chronic dermatitis Ultrasound guided access, right common femoral artery 11/30/2013 Right iliac angiography, Right femoral angiography with runoff. [facility] - Dr. Delaney Allergies Allergen Reactions Naproxen [...] 1 capsule by mouth Daily. Yes Historical Jack chun MD calcium-vitamin D (CALCIUM 600+D) 600 mg-200 units per tablet Take 1 tablet by mouth 2 time s daily. Yes Historical Provider, digoxin (LANOXIN) 125 mcg tablet Take 125 mcg by mouth. 11/20/17 Yes Historical Provider, furosemide (LASIX) 20 mg tablet Take 20 mg by mouth. Yes Historical Provider, MD FRITZ M20 20 MEQ ER tablet 09/07/18 Yes [...] by mouth Daily. 5 mg on , Wed, Th, Sat, Kinney n Yes Historical Provider, Family [...] Osmin Garber MD - 09/28/2019 8:51 AM [facility] OPERATIVE REPORT PATIENT NAME: Deborah Thomason AGE: [...] the patch was accessed with a micropuncture need narinder. A wire was advanced and a 8 Tristanian 23 cm Sheath was placed. A an [...] common iliac stent. Dr. Peterson came to [facility] with the Left common, And external iliac artery stents. A catheter was then able to pass over this wire and the Glidewire was exchanged for a stiff Amplatz wire. Then introduced a 3 mm Williston angioplasty balloon and dilated the common and [...] then post dilated with a 10 mm Williston and the external iliac post dilated with an 8 mm Williston. Repeat contrast injection showed brisk dai ling [...] signal in the profunda femoris, SFA, and PICKING MACHINE OPERATOR HELPER. T he left groin wound was thoroughly irrigated. The incision was then closed in layers first with a 2-0 Vicryl, then 3-0 Vicryl. [place] were used to re-approximate the skin. Sterile [...] by: Osmin Garber MD, 09/28/2019 8:[address] [facility] lan of [place] - Annabella Pitts RN - 2019 2:10 PM PST Problem: [...] Health and Integrity Outcome: Met lan of Care - Medina Sandoval RN - 2019 10:19 [...] on need to stay in the hospital. MD at bedside. Chart check complete. Medina Pitts RN lan of Tash Montesinos RN - 2019 9:57 AM [id number]: Medina DELGADO called and said that physical the rapy is recommending SNF and was asking about sending referrals. Referrals sent prior- Will chet has accepted in the computer. [id number]: Medina DELGADO called and informed me that pt just wants to return home with family and wo uld like home health. Orders written for RN, PT and OT. Sent referrals to [facility] and [facility]. Faxed orders to both. lan of [place] - Jenny Marie RN - 09/19/2019 11: 54 PM PST [...] and Integrity Outcome: Ongoing, progressing lan of [facility] - Liz Smith PT - 09/19/2019 4:34 PM PST Physical Therapy Re-Assessment, Treatment Note Recommended discharge disposition: senior care facility(if refuses would recommend P T) Post discharge physical therapy recommendation: [...] rising. He was able to ambulate to [facility] for stair training (reports 6 LUZ at [...] Bed Mobility Supine to Sit, Level of Poneto: contact guard assist Impairments: strength decreased, impaired balance Transfers Sit-Stand, Level of Poneto: minimal assist (75% patient effort)(heavy reliance on UEs and extra time to stand) Stand-Sit, Level of Poneto: minimal assist (75% patient effort)(poor eccentric contro l when asked to attempt without arms) Ozn-Rffnm-Ahy, Assistive Device: 2 wheeled walker (FWW), gait belt Safety Issues: balance decreased during turns, step length decreased, loses balance backwar d Gait Level of Poneto: contact guard assist Assistive Device: 2 wheeled walker (FWW), gait belt Distance (feet): 150 Additional Documentation: safety, impairments, stairs (group) Safety Issues: balance decreased during turns, step length decreased Impairments: strength decreased, impaired balance Stairs Stairs, Comment: unsafe with descending initially, grasping at rail with VALENCIA hands Number of Stairs: 6 Handrail Location: right side (ascending) Level of Poneto: minimal assist (75% patient effort) Assistive Device: [...] Status continued, progressing at 09/19/2019 1634 LTG Poneto Level stand by assist at 09/12/2019 0845 Gait Goal Most Recent Value LTG Status continued, progressing, revised at 09/19/2019 1634 LTG Poneto Level stand by assist at 09/12/2019 0845 LTG Assistive Device 2 wheeled walker (FWW) at 09/12/2019 0845 LTG Distance (feet) 300 at 09/19/2019 1634 Stair Goal Most Recent Value LTG Status continued, progressing [safety concerns] at 09/19/2019 1634 LTG Poneto Level stand by assist at 09/12/2019 0845 LTG Assistive Device 2 rails at 09/12/2019 0845 LTG Number of Stairs 7 at 09/12/2019 0845 Timed TX Code Minutes: 68 lan [facility] - Medina Pitts RN - 09/19/2019 4:25 [...] 120-130s. Metoprolol added. Chart check complete. Medina Pitts, RN lan of Care - Jenny Jones [...] Ongoing, progressing lan of Care - Herminio Gaston, PT - 09/18/2019 1:22 PM PST Physical Therapy Treatment Note Recommended discharge disposition: senior care facility Post discharge physical therapy recommendation: minimum [...] Device: bed rails Roll Left, Level of Poneto: stand by assist Supine to Sit, Level of Poneto: minimal assist (75% patient effort) Sit to Supine, Level of Poneto: minimal assist (75% patient effort) Transfers Additional Documentation: bed to/from chair, sit to/from stand Bed-Chair, Level of Poneto: minimal assist (75% patient effort) Sit-Stand, Level of Poneto: minimal assist (75% patient effort) Stand-Sit, Level of Poneto: minimal assist (75% patient effort) Ghn-Playe-Uxv, Assistive Device: 2 wheeled walker (FWW) Gait Gait Comments: Antalgic Level of Poneto: minimal assist (75% patient effort) Assistive Device: 2 wheeled walker (FWW) Distance (feet): 25 Balance Sitting Balance: Static: good balance Sitting Balance: Dynamic: good balance Standing Balance: Static: fair balance Standing Balance: Dynamic: poor balance Goals Reflects last filed data and may be from multiple contributors. All Transfers Goal Most Recent Value LTG Poneto Level stand by assist at 09/12/2019 0845 Gait Goal Most Recent Value LTG Poneto Level stand by assist at 09/12/2019 0845 LTG Assistive Device 2 wheeled walker (FWW) at 09/12/2019 0845 LTG Distance (feet) 100 at 09/12/2019 0845 Stair Goal Most Recent Value LTG Pon[place] Level stand by assist at 09/12/2019 0845 LTG Assistive Device 2 rails at 09/12/2019 0845 LTG Number of Stairs 7 at 09/12/2019 0845 lan of Care - Jeraym Moss MD - 09/18/2019 11:19 AM PSTPatient signed out to Dr. Yang on [facility]. Patient hemodynamically stable off pressors [...] chair. R bryn off phenylephrine gtt. Soo Velasquez, RN lan of Care - Herminio Gaston PT - 09/17/2019 10:12 AM PST Physical Therapy Treatment Note Recommended discharge disposition: senior care facility Post discharge physical therapy recommendation: minimum [...] Device: bed rails Roll Left, Level of Poneto: stand by assist Supine to Sit, Level of Poneto: minimal assist (75% patient effort) Sit to Supine, Level of Poneto: moderate assist (50% patient effort) Transfers Additional Documentation: bed to/from chair, sit to/from stand Bed-Chair, Level of Poneto: moderate assist (50% patient effort) Sit-Stand, Level of Poneto: moderate assist (50% patient effort) Stand-Sit, Level of Poneto: minimal assist (75% patient effort) Baz-Ropmr-Qnc, Assistive Device: 2 wheeled walker (FWW) Gait Gait Comments: Antalgic Level of Poneto: minimal assist (75% patient effort) Assistive Device: 2 wheeled walker (FWW) Distance (feet): 20 Balance Sitting Balance: Static: good balance Sitting Balance: Dynamic: good balance Standing Balance: Static: fair balance Standing Balance: Dynamic: poor balance Goals Reflects last filed data and may be from multiple contributors. All Transfers Goal Most Recent Value LTG Poneto Level stand by assist at 09/12/2019 0845 Gait Goal Most Recent Value LTG Pon[place] Level stand by assist at 09/12/2019 0845 LTG Assistive Device 2 wheeled walker (FWW) at 09/12/2019 0845 LTG Distance (feet) 100 at 09/12/2019 0845 Stair Goal Most Recent Value LTG Poneto Level stand by assist at 09/12/2019 0845 [...] Physical Therapy Treatment Note Recommended discharge disposition: senior care facility Post discharge physical therapy recommendation: minimum 5 days of therapy/week, pt is kay miller participant Equipment Recommendations: (TBD) Barriers to community-based [...] Device: bed rails Roll Left, Level of Poneto: stand by assist Supine to Sit, Level of Poneto: minimal assist (75% patient effort) Transfers Additional Documentation: bed to/from chair, sit to/from stand Bed-Chair, Level of Poneto: moderate assist (50% patient effort) Sit-Stand, Level of Poneto: moderate assist (50% patient effort) Stand-Sit, Level of Poneto: minimal assist (75% patient effort) Oup-Mbhlz-Fdv, Assistive Device: 2 wheeled walker (FWW) Gait Gait Comments: Antalgic, Leads with LLE Level of Poneto: minimal assist (75% patient effort) Assistive Device: 2 wheeled walker (FWW) Distance (feet): 20 Balance Sitting Balance: Static: good balance Sitting Balance: Dynamic: good balance Standing Balance: Static: fair balance Standing Balance: Dynamic: poor balance Goals Reflects last filed data and may be from multiple contributors. All Transfers Goal Most Recent Value LTG Poneto Level stand by assist at 09/12/2019 0845 Gait Goal Most Recent Value LTG [place] Level stand by assist at 09/12/2019 0845 LTG Assistive Device 2 wheeled walker (FWW) at 09/12/2019 0845 LTG Distance (feet) 100 at 09/12/2019 0845 Stair Goal Most Recent Value LTG Pon[place] Level stand by assist at 09/12/2019 0845 LTG Assistive Device 2 rails at 09/12/2019 0845 LTG Number of Stairs 7 at 09/12/2019 0845 oals of Care - Ca darlene, Susanna Sommer MD - 09/16/2019 8:21 AM PSTGOALS OF CARE NOTE Participants: Who was present? Patient and Primary Attending Physician Does patient have capacity?: Yes Updated Mr. Thomason with his condition. Remains in the ICU for episodes of hypotension requir ing pressors for hypotension. Still on midodrine. Once able to come off pressors, can transf er out of ICU. Susanna Simon MD Spreader 09/16/2019 lan of Care - Ar Gucci pereyra RN - 09/16/2019 2:20 AM PST Problem: [...] and Integrity Outcome: Ongoing, progressing lan of [facility] Cheyanne Weber RN - 09/15/2019 4:53 PM PST Problem: Restraint, Nonbehavioral (Nonviolent) Goal: Personal Dignity and Safety Maintained Outcome: Met Patient oriented, cooperative, no longer needed restraints. lan of [facility] Ruma Murrieta MSW - 09/15/2019 11:22 AM PSTAttended daily rounding. PT has recommended SNF - referrals sent to [facility] and [facility]. CM to follow up with family and pt when an accepting facility is found. ADELITA GUALLPA lan of [place] Moose Jimenez RN - 09/15/2019 5:37 AM [...] visitors. Mag replaced. lan of [place] Rodrigo Paige PT, DPT - 09/14/2019 11:04 AM PSTFormatting of this note migh t be different from the original. Physical Therapy Re-Assessment Note Recommended discharge disposition: senior care facility Post discharge physical therapy recommendation: will [...] Bed Mobility Supine to Sit, Level of Poneto: minimal assist (75% patient effort) Transfers Sit-Stand, Level of Poneto: moderate assist (50% patient effort) Gait Gait Comments: Antalgic, shuffled Level of Poneto: minimal assist (75% patient effort), moderate assist [...] All Transfers Goal Most Recent Value LTG Poneto Level stand by assist at 09/12/2019 0845 Gait Goal Most Recent Value LTG Pon[place] Level stand by assist at 09/12/2019 0845 LTG Assistive Device 2 wheeled walker (FWW) at 09/12/2019 0845 LTG Distance (feet) 100 at 09/12/2019 0845 Stair Goal Most Recent Value LTG Poneto Level stand by assist at 09/12/2019 0845 LTG Assistive Device 2 rails at 09/12/2019 0845 LTG Number of Stairs 7 at 09/12/2019 0845 lan of Ruma Bain, INTELLIGENCE CONSULTANT - 09/14/2019 9:57 AM PSTAttended daily rounding. CM will follow PT recommendations and follow up with family. Plan is to attempt to work wit h PT today . Pt is residing in [place] with spouse. ADELITA GUALLPA lan of Care [...] questions addressed . lan of Care - Niak Corea MD - 09/13/2019 11:12 AM PSTD/w [...] Device: bed rails Roll Left, Level of Poneto: stand by assist Supine to Sit, Level of Poneto: minimal assist (75% patient effort) Transfers Additional Documentation: bed to/from chair, sit to/from stand Bed-Chair, Level of Poneto: minimal assist (75% patient effort) Sit-Stand, Level of Poneto: minimal assist (75% patient effort) Stand-Sit, Level of Poneto: minimal assist (75% patient effort) Lwt-Pnzcd-Sry, Assistive Device: 2 wheeled walker (FWW) Gait Gait Comments: Antalgic, shuffled Level of Poneto: minimal assist (75% patient effort) Assistive Device: [...] All Transfers Goal Most Recent Value LTG Pon[place] Level stand by assist at 09/12/2019 0845 Gait Goal Most Recent Value LTG [place] Level stand by assist at 09/12/2019 0845 LTG Assistive Device 2 wheeled walker (FWW) at 09/12/2019 0845 LTG Distance (feet) 100 at 09/12/2019 0845 Stair Goal Most Recent Value LTG [place] Level stand by assist at 09/12/2019 0845 LTG Assistive Device 2 rails at 09/12/2019 0845 LTG Number of Stairs 7 at 09/12/2019 0845 lan of Care - Trent thurston, Fadia Marrero RN - 09/11/2019 11:34 PM PST Problem: [...] from the or iginal. BRIEF OPERATIVE NOTE [facility] Pt. Name/Age/: Deborah Thomason 88 y.o. 1930 Med. Record Number: [id number] Date of admission: 09/11/2019 Date of Operation/Procedure: 09/11/2019 Preoperative Diagnosis: Critical limb ischemia LLE Postoperative Diagnosis: * PAD (peripheral artery disease) (HCC) [I73.9] Surgeon: Osmin Garber MD Electrical Inspector: Kendell Robertson PA-C Anesthesia Provider(s): LAMP CLEANER STREET LIGHT: Justin Bauman CRNA; Stephen Silva CRNA Anesthesia Type: Monitored Anesthesia Care Procedure(s): ENDARTERECTOMY FEMORAL, LIA, EIA angioplasty/stent Operative Findings: Heavily calcified PICKING MACHINE OPERATOR HELPER, PFA. External and LIA with severe stenosis. St wilian pulse in PICKING MACHINE OPERATOR HELPER, PFA, and SFA at conclusion. Strong DP [...] Left SURGICAL PATHOLOGY EXAM Osmin Garber MD 09/1117 B : Left femoral artery plaque Tissue Arterial plaque SURGICAL PATHOLOGY EXAM Osmin Garber MD 09/11/201957 Implants: Implant Name Type Inv. Item Serial No. Motorcycle Police Lot No. LRB No. Used XGRFT VASCU-GUARD PTCH 0.8X8 - SN/A Graft XGRFT VASCU-GUARD PTCH 0.8X8 N/A [employer] E - BAXB [id number] Left 1 Counts: Instrument, sponge, and needle [...] Gann Tech nologist - 09/11/2019 10:52 AM [id number] mustang inserted OTW, edation Documentation - Wanda Gann Technologist - 09/11/2019 10:48 AM PSTWire inserted, edation Documentation - Wanda Gann Te chnologist - 09/11/2019 10:39 AM PSTkumpe replaces catheter inserted OTWElectronically alban d by Jaclyn Northologist at 09/11/2019 10:40 AM PSTSedation Documentation - Wanda Shelby Technologist - 09/11/2019 10:31 AM PSTWire inserted, rubicon inserted OTW, Izabella ctronically signed by Wanda Gann Technologist at 09/11/2019 10:31 AM PSTSedation Docu mentation - Wanda Gann Technologist - 09/11/2019 10:02 AM PSTSheath exchange to a 8x 23, NTA inserted OTW, removed, Electronically signed by Technologist Can at 0 09/11/2019 10:31 AM PSTSedation Documentation - Wanda Gann Technologist - 09/11/2019 9:54 AM [id number] Williston inserted OTW, inflations made, removed, edation Documentation - Tom Gann Technologist - 09/11/2019 9:50 AM PSTImages obtained, wire inserted, Electronically s igned by Jaclyn Northologist at 09/11/2019 9:50 AM PSTSedation Documentation - Wanda Contreras Technologist - 09/11/2019 9:49 AM PSTNTA inserted [...] 09/11/2019 8:33 AM PSTElectronically sign ed by Jaclyn Northologist at 09/11/2019 8:42 AM PSTSedation Documentation - Wanda Corrales Technologist - 09/11/2019 7:55 AM PSTOR to [...] [address] | | | | | | [place] [address] | | | | | | [phone] | | | | | | | [...] disease) | | | | | | ([facility]) Atrial | | | | | | fibrillation with | | | | | | RVR ([facility]) | | + + +--------+ + + | Referral to Home | Outpatient | Routin | PAD (peripheral | Ordered: 2019 | | Health | Referral | e | artery disease) | | | | | | ([facility]) Chronic | | | | | | atrial fibrillation | | | | | | ([facility]) Chronic | | | | | | diastolic heart | | | | | | failure ([facility]) PVD | | | | | | (peripheral vascular | | | | | | disease) ([facility]) | | + + +--------+ + + [...] the | | | | PST | ([facility]) | results section. | + +--------+ + + + | SURGICAL PATHOLOGY | Routin | 09/11/2019 | PAD (peripheral | Results for this | | EXAM | e | 8:17 AM | artery disease) | procedure are in the | | | | PST | ([facility]) | results section. | + +--------+ + + + | ENDARTERECTOMY | | 09/11/2019 | PAD (peripheral | | | FEMORAL | | 7:08 AM | artery disease) | | | | | PST | ([facility]) | | + +--------+ + + + [...] KR | | | | performed at [facility];[address] | | LABORATORY | | | | [address] [facility];[place], [place] | | | | | | [address] | | | | + + + + + + + + | Specimen | + + | Blood | + + + + + + + | Performing | Address | City/State/Zipcode | Phone Number | | Organization | | | | + + + + + | [facility] | [address] | [place] [address] | [phone] | + + + + + CBC [...] 0.05Comment: Testing | 0.00 - 0.10 | [facility] | | | Absolute | performed at [facility];[address] | K/uL | LABORATORY | | | | [address];[place] | | | | | | [address] | | | | + + + + + + + + | Specimen | + + | Blood | + + + + + + + | Performing | Address | City/State/Zipcode | Phone Number | | Organization | | | | + + + + + | [facility] | [address] | [place] [address] | [phone] | + + + + + Comprehensive [...] | | | | | performed at [facility];[address] | [address];[place] | | | | | | [address] | | | | + + + + + + + + | Specimen | + + | Blood | + + + + + + + | Performing | Address | City/State/Zipcode | Phone Number | | Organization | | | | + + + + + | [facility] | [address] | [place] [id number] | [phone] | + + + + + Maria Elenaime DONALD (2019 4:31 AM PST) + + + [...] | | | | | performed at [facility];[address] | | | | | | [address];[place], [place] | | | | | | [address] | | | | + + + + + + + + | Specimen | + + | Blood | + + + + + + + | Performing | Address | City/State/Zipcode | Phone Number | | Organization | | | | + + + + + | [facility] | [address] | [place] [address] | [phone] | + + + + + Potassium (09/19/2019 8:20 PM PST) + + + + + + | Component | Value | Ref Range | Performed | Pathologist | | | | | At | Signature | + + + + + + | K | 4.3Comment: Testing | 3.5 - 4.9 | [facility] | | | | performed at [facility];[address] | mmol/L | LABORATORY | | | | [address];[place] | | | | | | [address] | | | | + + + + + + + + | Specimen | + + | Blood | + + + + + + + | Performing | Address | City/State/Zipcode | Phone Number | | Organization | | | | + + + + + | [facility] | [address] | [place] [address] | [phone] | + + + + + Potassium (09/19/2019 11:06 AM PST) + + + + + + | Component | Value | Ref Range | Performed | Pathologist | | | | | At | Signature | + + + + + + | K | 4.0Comment: Testing | 3.5 - 4.9 | [facility] | | | | performed at [facility];[address] | mmol/L | LABORATORY | | | | [address];[place] | | | | | | [address] | | | | + + + + + + + + | Specimen | + + | Blood | + + + + + + + | Performing | Address | City/State/Zipcode | Phone Number | | Organization | | | | + + + + + | [facility] | [address] | [place] [address] | [phone] | + + + + + Magnesium (09/19/2019 4:20 AM PST) + + + + + + | Component | Value | Ref Range | Performed | Pathologist | | | | | At | Signature | + + + + + + | Magnesium | 1.7Comment: Testing | 1.7 - 2.4 mg/dL | KR | | | | performed at [facility];[address] | | LABORATORY | | | | [address];[place], [place] | | | | | | [address] | | | | + + + + + + + + | Specimen | + + | Blood | + + + + + + + | Performing | Address | City/State/Zipcode | Phone Number | | Organization | | | | + + + + + | [facility] | [address] | [place] [address] | [phone] | + + + + + CBC [...] 0.06Comment: Testing | 0.00 - 0.10 | [facility] | | | Absolute | performed at [facility];[address] | K/uL | LABORATORY | | | | [address];[place] | | | | | | [address] | | | | + + + + + + + + | Specimen | + + | Blood | + + + + + + + | Performing | Address | City/State/Zipcode | Phone Number | | Organization | | | | + + + + + | [facility] | [address] | [place] [address] | [phone] | + + + + + Comprehensive [...] | | | | | performed at [facility];[address] | | | | | | [facility];[place], [place] | | | | | | [address] | | | | + + + + + + + + | Specimen | + + | Blood | + + + + + + + | Performing | Address | City/State/Zipcode | Phone Number | | Organization | | | | + + + + + | [facility] [facility] | [address] | [place] [address] | [phone] | + + + + + Protime [...] | | | | | performed at [facility] | | | | | | [address];[place], [place] | | | | | | [address] | | | | + + + + + + + + | Specimen | + + | Blood | + + + + + + + | Performing | Address | City/State/Zipcode | Phone Number | | Organization | | | | + + + + + | [facility] | [address] | [place] [address] | [phone] | + + + + + Magnesium (09/18/2019 4:06 AM PST) + + + + + + | Component | Value | Ref Range | Performed | Pathologist | | | | | At | Signature | + + + + + + | Magnesium | 1.9Comment: Testing | 1.7 - 2.4 mg/dL | [facility] | | | | performed at [facility];[address] | | LABORATORY | | | | [address];[place] | | | | | | [address] | | | | + + + + + + + + | Specimen | + + | Blood | + + + + + + + | Performing | Address | City/State/Zipcode | Phone Number | | Organization | | | | + + + + + | [facility] | [address] | [place] [address] | [phone] | + + + + + CBC [...] | | | Absolute | performed at [facility];[address] | K/uL | LABORATORY | | | | [address];[place], [place] | | | | | | [address] | | | | + + + + + + + + | Specimen | + + | Blood | + + + + + + + | Performing | Address | City/State/Zipcode | Phone Number | | Organization | | | | + + + + + | [facility] | [address] | [place] [address] | [phone] | + + + + + Comprehensive [...] | | | | | performed at [facility];[address] | | | | | | [address] [facility];[place], [place] | | | | | | [address] | | | | + + + + + + + + | Specimen | + + | Blood | + + + + + + + | Performing | Address | City/State/Zipcode | Phone Number | | Organization | | | | + + + + + | [facility] | [address] [facility] | [place] [address] | [phone] | + + + + + Protime [...] | | | | | performed at [facility] | | | | | | [address];[place], [place] | | | | | | [address] | | | | + + + + + + + + | Specimen | + + | Blood | + + + + + + + | Performing | Address | City/State/Zipcode | Phone Number | | Organization | | | | + + + + + | [facility] | [address] | [place] [address] | [phone] | + + + + + Magnesium (09/18/2019 12:02 AM PST) + + + + + + | Component | Value | Ref Range | Performed | Pathologist | | | | | At | Signature | + + + + + + | Magnesium | 2.0Comment: Testing | 1.7 - 2.4 mg/dL | [facility] | | | | performed at [facility];[address] | | LABORATORY | | | | [address];[place] | | | | | | [address] | | | | + + + + + + + + | Specimen | + + | Blood | + + + + + + + | Performing | Address | City/State/Zipcode | Phone Number | | Organization | | | | + + + + + | [facility] | [address] [facility] | [place] [address] | [phone] | + + + + + Phosphorus (09/18/2019 12:02 AM PST) + + + + + + | Component | Value | Ref Range | Performed | Pathologist | | | | | At | Signature | + + + + + + | Phosphorus | 2.4Comment: Testing | 2.3 - 4.8 mg/dL | [facility] | | | | performed at [facility];[address] | | LABORATORY | | | | [address];[place], [place] | | | | | | [address] | | | | + + + + + + + + | Specimen | + + | Blood | + + + + + + + | Performing | Address | City/State/Zipcode | Phone Number | | Organization | | | | + + + + + | [facility] | [address] | [place] [address] | [phone] | + + + + + Potassium (09/18/2019 12:02 AM PST) + + + + + + | Component | Value | Ref Range | Performed | Pathologist | | | | | At | Signature | + + + + + + | K | 3.8Comment: Testing | 3.5 - 4.9 | [facility] | | | | performed at [facility];[address] | mmol/L | LABORATORY | | | | [address];[place] | | | | | | [address] | | | | + + + + + + + + | Specimen | + + | Blood | + + + + + + + | Performing | Address | City/State/Zipcode | Phone Number | | Organization | | | | + + + + + | [facility] | [address] | [place] [address] | [phone] | + + + + + Phosphorus (09/17/2019 4:38 AM PST) + + + + + + | Component | Value | Ref Range | Performed | Pathologist | | | | | At | Signature | + + + + + + | Phosphorus | 2.5Comment: Testing | 2.3 - 4.8 mg/dL | [facility] | | | | performed at [facility];[address] | | LABORATORY | | | | [address];[place], [place] | | | | | | [address] | | | | + + + + + + + + | Specimen | + + | Blood | + + + + + + + | Performing | Address | City/State/Zipcode | Phone Number | | Organization | | | | + + + + + | [facility] | [address] | [place] [address] | [phone] | + + + + + Magnesium (09/17/2019 4:38 AM PST) + + + + + + | Component | Value | Ref Range | Performed | Pathologist | | | | | At | Signature | + + + + + + | Magnesium | 1.8Comment: Testing | 1.7 - 2.4 mg/dL | [facility] | | | | performed at [facility];[address] | | LABORATORY | | | | [facility];[place], [place] | | | | | | [address] | | | | + + + + + + + + | Specimen | + + | Blood | + + + + + + + | Performing | Address | City/State/Zipcode | Phone Number | | Organization | | | | + + + + + | [facility] | [address] | [place] [address] | [phone] | + + + + + CBC [...] | | | Absolute | performed at [facility];[address] | K[address]uL | LABORATORY | | | | [address];[place], [place] | | | | | | [address] | | | | + + + + + + + + | Specimen | + + | Blood | + + + + + + + | Performing | Address | City/State/Zipcode | Phone Number | | Organization | | | | + + + + + | [facility] | [address] [facility] | [place] [address] | [phone] | + + + + + Comprehensive [...] | >60Comment: GFR <60: | >60 | [facility] | | | GFR | [...] | | | | | performed at [facility] | | | | | | [facility];[place], [place] | | | | | | [address] | | | | + + + + + + + + | Specimen | + + | Blood | + + + + + + + | Performing | Address | City/State/Zipcode | Phone Number | | Organization | | | | + + + + + | [facility] | [address] | [place] [address] | [phone] | + + + + + Protime [...] | | | | | performed at [facility];[address] | | | | | | [facility];[place], [place] | | | | | | [address] | | | | + + + + + + + + | Specimen | + + | Blood | + + + + + + + | Performing | Address | City/State/Zipcode | Phone Number | | Organization | | | | + + + + + | [facility] | [address] | [place] [address] | [phone] | + + + + + Phosphorus (09/16/2019 4:11 AM PST) + + + + + + | Component | Value | Ref Range | Performed | Pathologist | | | | | At | Signature | + + + + + + | Phosphorus | 2.7Comment: Testing | 2.3 - 4.8 mg/dL | [facility] | | | | performed at [facility];[address] | | LABORATORY | | | | [address];[place], [place] | | | | | | [address] | | | | + + + + + + + + | Specimen | + + | | + + + + + + + | Performing | Address | City/State/Zipcode | Phone Number | | Organization | | | | + + + + + | [facility] | [address] | [place] [address] | [phone] | + + + + + Magnesium (09/16/2019 4:11 AM PST) + + + + + + | Component | Value | Ref Range | Performed | Pathologist | | | | | At | Signature | + + + + + + | Magnesium | 2.4Comment: Testing | 1.7 - 2.4 mg/dL | [facility] | | | | performed at [facility];[address] | | LABORATORY | | | | [address];[place] | | | | | | [address] | | | | + + + + + + + + | Specimen | + + | Blood | + + + + + + + | Performing | Address | City/State/Zipcode | Phone Number | | Organization | | | | + + + + + | [facility] | [address] | [place] [address] | [phone] | + + + + + CBC [...] | | | Absolute | performed at [facility];[address] | K/uL | LABORATORY | | | | [facility];[place], [place] | | | | | | [address] | | | | + + + + + + + + | Specimen | + + | Blood | + + + + + + + | Performing | Address | City/State/Zipcode | Phone Number | | Organization | | | | + + + + + | [facility] | [address] | [place] [address] | [phone] | + + + + + Comprehensive [...] | >60Comment: GFR <60: | >60 | [facility] | | | GFR | [...] | | | | | | MDRD IDIA traceable | | | | | | equation.Testing | | | | | | performed at [facility] | | | | | | [facility];[place], [place] | | | | | | [address] | | | | + + + + + + + + | Specimen | + + | Blood | + + + + + + + | Performing | Address | City/State/Zipcode | Phone Number | | Organization | | | | + + + + + | [facility] | [address] | [place] [address] | [phone] | + + + + + Protime INR (09/16/2019 4:11 AM PST) + + + + + + | Component | Value | Ref Range | Performed | Pathologist | | | | | At | Signature | + + + + + + | INR | 1.6Comment: REFERENCE | | [facility] | | | | RANGE:0.9 - 1.2 [...] | | | | | performed at [facility];[address] | | | | | | [facility];[place], [place] | | | | | | [address] | | | | + + + + + + + + | Specimen | + + | Blood | + + + + + + + | Performing | Address | City/State/Zipcode | Phone Number | | Organization | | | | + + + + + | [facility] | [address] | [place] [address] | [phone] | + + + + + XR [...] + + | Stan, Rad Results In 09/15/2019 8:58 AM PST | | CHEST [...] [facility] | | | | performed at [facility];[address] | | LABORATORY | | | | [address];[place], [place] | | | | | | [address] | | | | + + + + + + + + | Specimen | + + | Blood | + + + + + + + | Performing | Address | City/State/Zipcode | Phone Number | | Organization | | | | + + + + + | [facility] | [address] | [place] [address] | [phone] | + + + + + CBC [...] | | | Absolute | performed at [facility];[address] | K/uL | LABORATORY | | | | [address];[place], [place] | | | | | | [address] | | | | + + + + + + + + | Specimen | + + | Blood | + + + + + + + | Performing | Address | City/State/Zipcode | Phone Number | | Organization | | | | + + + + + | [facility] | [address] | [place] [address] | [phone] | + + + + + Comprehensive [...] | | | | | performed at [facility] | | | | | | [facility];[place], [place] | | | | | | [address] | | | | + + + + + + + + | Specimen | + + | Blood | + + + + + + + | Performing | Address | City/State/Zipcode | Phone Number | | Organization | | | | + + + + + | [facility] | [address] | [place] [address] | [phone] | + + + + + Protime INR (09/15/2019 4:03 AM PST) + + + + + + | Component | Value | Ref Range | Performed | Pathologist | | | | | At | Signature | + + + + + + | INR | 1.4Comment: REFERENCE | | [facility] | | | [...] | | | | | performed at [facility];[address] | | | | | | [address];[place], [place] | | | | | | [address] | | | | + + + + + + + + | Specimen | + + | Blood | + + + + + + + | Performing | Address | City/State/Zipcode | Phone Number | | Organization | | | | + + + + + | [facility] | [address] | [place] [address] | [phone] | + + + + + Digoxin [...] | | | level | performed at [facility];[address] | ng/mL | LABORATORY | | | | [address];[place], [place] | | | | | | [address] | | | | + + + + + + + + | Specimen | + + | Blood | + + + + + + + | Performing | Address | City/State/Zipcode | Phone Number | | Organization | | | | + + + + + | [facility] | [address] | [place] [address] | [phone] | + + + + + CBC [...] | | | Absolute | performed at [facility];[address] | K/uL | LABORATORY | | | | [address];[place], [place] | | | | | | [address] | | | | + + + + + + + + | Specimen | + + | Blood | + + + + + + + | Performing | Address | City/State/Zipcode | Phone Number | | Organization | | | | + + + + + | [facility] | [address] | [place] [address] | [phone] | + + + + + Comprehensive [...] | | | | | performed at [facility];[address] | | | | | | [facility];[place], [place] | | | | | | [address] | | | | + + + + + + + + | Specimen | + + | Blood | + + + + + + + | Performing | Address | City/State/Zipcode | Phone Number | | Organization | | | | + + + + + | [facility] | [address] | [place] [address] | [phone] | + + + + + Magnesium (09/14/2019 9:23 AM PST) + + + + + + | Component | Value | Ref Range | Performed | Pathologist | | | | | At | Signature | + + + + + + | Magnesium | 1.6 (L)Comment: Testing | 1.7 - 2.4 mg/dL | [facility] | | | | performed at [facility];[address] | | LABORATORY | | | | [facility];[place], [place] | | | | | | [address] | | | | + + + + + + + + | Specimen | + + | Blood | + + + + + + + | Performing | Address | City/State/Zipcode | Phone Number | | Organization | | | | + + + + + | [facility] | [address] | [place] [address] | [phone] | + + + + + ECHO [...] | | | | | | n [place] | | | | | + + [...] | | | | | performed at [facility];[address] | | | | | | [address] [facility];[place], [place] | | | | | | [address] | | | | + + + + + + + + | Specimen | + + | Blood | + + + + + + + | Performing | Address | City/State/Zipcode | Phone Number | | Organization | | | | + + + + + | [facility] | [address] | [place] [address] | [phone] | + + + + + POC Glucose (09/13/2019 12:29 PM PST) + + + + + + | Component | Value | Ref Range | Performed | Pathologist | | | | | At | Signature | + + + + + + | Glucose, | 148 (H)Comment: Testing | 65 - 99 mg/dL | [facility] | | | POC | performed at [facility];[address] | | LABORATORY | | | | [address];[place] | | | | | | [address] | | | | + + + + + + + + | Specimen | + + | | + + + + + + + | Performing | Address | City/State/Zipcode | Phone Number | | Organization | | | | + + + + + | [facility] | [address] | [place] [address] | [phone] | + + + + + Protime [...] | | | | | performed at [facility] | | | | | | [facility];[place], [place] | | | | | | [address] | | | | + + + + + + + + | Specimen | + + | Blood | + + + + + + + | Performing | Address | City/State/Zipcode | Phone Number | | Organization | | | | + + + + + | [facility] | [address] | [place] [address] | [phone] | + + + + + CBC [...] | | | Absolute | performed at [facility];[address] | K/uL | LABORATORY | | | | [address];[place], [place] | | | | | | [address] | | | | + + + + + + + + | Specimen | + + | Blood | + + + + + + + | Performing | Address | City/State/Zipcode | Phone Number | | Organization | | | | + + + + + | [facility] | [address] | [place] [address] | [phone] | + + + + + Basic [...] | | | | | performed at [facility] | | | | | | [facility];[place], [place] | | | | | | [address] | | | | + + + + + + + + | Specimen | + + | Blood | + + + + + + + | Performing | Address | City/State/Zipcode | Phone Number | | Organization | | | | + + + + + | [facility] | [address] | [place] [address] | [phone] | + + + + + Troponin I (09/12/2019 5:28 PM PST) + + + + + + | Component | Value | Ref Range | Performed | Pathologist | | | | | At | Signature | + + + + + + | Troponin I | 0.167 (H)Comment: 0.04 | 0.00 - 0.04 | [facility] | | | | ng/mL [...] at | | | | | | [facility];[address] [facility] | | | | | | [address];[place] [address] | | | | + + + + + + + + | Specimen | + + | Blood | + + + + + + + | Performing | Address | City/State/Zipcode | Phone Number | | Organization | | | | + + + + + | [facility] | [address] | [place] [address] | [phone] | + + + + + Protime [...] | | | | | performed at [facility];[address] | | | | | | [address];[place] | | | | | | [address] | | | | + + + + + + + + | Specimen | + + | Blood | + + + + + + + | Performing | Address | City/State/Zipcode | Phone Number | | Organization | | | | + + + + + | [facility] | [address] | [place] [address] | [phone] | + + + + + Troponin I (09/12/2019 11:25 AM PST) + + + + + + | Component | Value | Ref Range | Performed | Pathologist | | | | | At | Signature | + + + + + + | Troponin I | 0.136 (H)Comment: 0.04 | 0.00 - 0.04 | [facility] | | | | ng/mL [...] at | | | | | | [facility];[address] [facility] | | | | | | [facility];[place] [address] | | | | + + + + + + + + | Specimen | + + | Blood | + + + + + + + | Performing | Address | City/State/Zipcode | Phone Number | | Organization | | | | + + + + + | [facility] | [address] | [place] [address] | [phone] | + + + + + ECG [...] | | | Absolute | performed at [facility];[address] | K/uL | LABORATORY | | | | [address];[place] | | | | | | [address] | | | | + + + + + + + + | Specimen | + + | Blood | + + + + + + + | Performing | Address | City/State/Zipcode | Phone Number | | Organization | | | | + + + + + | [facility] | [address] | [place] [address] | [phone] | + + + + + Basic [...] 8.2 (L) | 8.5 - 10.5 | [facility] | | | | | mg/dL | LABORATORY | | + + + + + + | Estimated | >60Comment: GFR <60: | >60 | [facility] | | | GFR | [...] | | | | | | MDRD [facility] traceable | | | | | | equation.Testing | | | | | | performed at [facility];[address] | | | | | | [facility];[place], [place] | | | | | | [address] | | | | + + + + + + + + | Specimen | + + | Blood | + + + + + + + | Performing | Address | City/State/Zipcode | Phone Number | | Organization | | | | + + + + + | [facility] | [address] | [place] [address] | [phone] | + + + + + Protime [...] | | | | | performed at [facility];[address] | | | | | | [address];[place] | | | | | | [address] | | | | + + + + + + + + | Specimen | + + | Blood | + + + + + + + | Performing | Address | City/State/Zipcode | Phone Number | | Organization | | | | + + + + + | [facility] | [address] | [place] [address] | [phone] | + + + + + IR Angiogram Lower Extremity Left (09/11/2019 11:36 AM PST) + + | Specimen | + + | | + + + + ---+ | Narrative | Performed A t | + + ---+ | [place] | [facility] | | Health & Services OPERATIVE [...] iliac artery. Using | | | a Tarzana a endarterectomy was performed of the common [...] | | | advanced and a 8 Tristanian 23 cm Sheath was placed. A an [...] introduced a | | | 3 mm Will[place] angioplasty balloon and dilated the common and [...] with a 10 mm | | | Williston and the external iliac post dilated with an 8 mm Will[place]. | | | Repeat contrast injection showed [...] signal in the profunda femoris, SFA, and PICKING MACHINE OPERATOR HELPER. The left groin wound | | | was thoroughly irrigated. The incision was then closed in layers | | | first with a 2-0 Vicryl, then 3-0 Vicryl. Chaparral were used to | | | re-approximate [...] signal in the profunda femoris, SFA, and PICKING MACHINE OPERATOR HELPER. The left | | |groin wound was [...] with homogeneous cut surfaces. | | | Recycle Driver sections of the lymph node are submitted [...] surfaces are laminated | | | herrera-yellow. Recycle Driver sections are submitted in cassette A1 | [...] component was performed | | | by [facility], [address] [place] [address] (Medical | | | Director: Radha Morse MD; CLIA# [id number]). Professional | | | interpretation was performed by[facility], [facility] | | | [address] [address] (Medical | | | Director: Prasanth Suggs M.D.; CLIA#: [id number]). Diagnostician: | | | Radha Morse MDPathologistElectronically Signed 09/14/2019 | | |question about this report, please contact Client Services. | | | | | |PERFORMING LABORATORY: | | |The technical component was performed by [facility], [address] [place] [address] (Shear Grinder Operator Helper: Radha Morse MD; CLIA# [id number]). Professional interpretation was performed by | | |[facility], [address] [address] (Shear Grinder Operator Helper: Prasanth Suggs M.D.; CLIA#: [id number]). | | | | | |Diagnostician: Radha [...] | | | | | performed at [facility];[address] | | | | | | [address];[place] | | | | | | [address] | | | | + + + + + + + + | Specimen | + + | Blood | + + + + + + + | Performing | Address | City/State/Zipcode | Phone Number | | Organization | | | | + + + + + | [facility] | [address] | [place] [address] | [phone] | + + + + + documented [...] documented in this encounter Administered Medications + +--------+---------+------+------+------+ | Medication Order | MAR | Action | Dose | Rate | Site | | | Action | Date | | | | + +--------+---------+------+------+------+ + +---+ | amiodarone (PACERONE) tablet | | | 200 mg 200 mg, Oral, DAILY, | | | First dose on Sat09/24/19 at 0900 | | + +---+ | [...] PST | | | | | Starting Sat09/16/19 at 1951 | | | | | [...] | | | | 09/17/19 at 0231, Shake well., | | | | | | + [...] | tablet 25 mg 25 mg, Oral, | | 20 8:23 | | [...] | | +---+---+ + +-------+ +--------+---+---+ | thrombin (recombinant) | Given | 09/11/19 | 5,000 | | | | (RECOTHROM) solution PRN, | | 20 8:29 | Units | | | | Starting 09/11/19 at 0829, | | AM PST | | | | | Intra-op | [...] PST | | | | +-------+ +-------+---+---+ + +---+ | | | + [...]
--- OUTSIDE RECORDS SUMMARY | ~2020-02-23 | XMS | Encounter Summary ---
Demographics + + + | Address | [address] | | | [place] [address] | + + + | Home Phone [...] [place] | | | | | [address] | | + + + + + Care Team Providers + +------+ + | Care Industry Analyst Name | Role | Phone | + +------+ + | Carlos Alberto Galeas MD | PCP | | + +------+ + Reason for Visit + +--------+ + | Reason | Onset | Comments | | | Date | | + +--------+ + | Follow-up | 12/22/ | needs imaging prior to follow up | | | 2018 | | + +--------+ + Encounter Details +--------+ + + + + | Date | Type | Department | Care Team | Description | +--------+ + + + + | 12/22/ | Telephone | [facility] | Michael Alston | Follow-up (needs | | 2019 | | SURGERY [address] | MD Dante, FACS [address] | imaging prior to | | | | [address] [place], [place] | [address] [facility] | follow up) | | | | [address] | [place] [address] | | | | | [phone] | [phone] | | | | | | | [...] this encounter Miscellaneous Notes Telephone Encounter - Valente Napoles RN - 12/22/2018 8:54 AM PDTGeovany's called i n, stating that her has become symptomatic with carotid/vertebral stenosis. States brennan arredondo is getting dizzy/fainting spells regularly now and was told to call us to be checked out. Advised that we were supposed to get CTA of neck prior to visit. Advised to get imaging firs t and we will follow up 2 months early due to becoming symptomatic. Imaging is authed, transferred patient to imaging. Advised to arrive a few hours early to g et labs prior to imaging to assess kidney functioning. Patient verbalized her understanding. Will call back to schedule f/u with Dr. Alston after imaging is completed. Electronically si gned by Valente Napoles RN at 12/22/2018 8:57 AM PDTdocumented in this encounter Plan of Treatment +--------+---------+ + + + | Date | Type | Specialty | Care Team | Description | +--------+---------+ + + + | 08/04/ | Office | Cardiology | Anusha Lomax | | | 2020 | Visit | | [address] | | | | | | [address] | | | | | | [facility] [place] [address] | | | | | | [phone] | | | | | | | | +--------+---------+ + + + documented as of this encounter Visit Diagnoses Not on filedocumented in this encounter"
--- OUTSIDE RECORDS SUMMARY | ~2020-02-23 | XMS | Encounter Summary ---
Demographics + + + | Address | [address] | | | [place] [address] | + + + | Home Phone | | + + + | Preferred Language | Unknown | + + + | Marital Status | | + + + | Bahai Affiliation | Unknown | + + + | Race | Unknown | + + + | Ethnic Group | Unknown | + + + Author + + + | Author | [facility] | | | and [place] | + + + | Organization | [facility] | | [...] [place] | | | | | [address] | | + + + + + Care Team Providers + +------+ + | Care Pecan Mallow Dipper Name | Role | Phone | + [...] | | | | | Procedures | [place], [place] | | | | | | VAS Carotid | [address] | | | | | | Duplex | Phone: | | | | | | Bilateral | [phone] | | | | | | | Fax: | | | | | | | [phone] | | +--------+--------+ + + + + [...] | | | | | Procedures | [place], [place] | | | | | | VAS Carotid | [address] | | | | | | Duplex | Phone: | | | | | | Bilateral | [phone] | | | | | | | Fax: | | | | | | | [phone] | | +--------+--------+ + + + + Encounter Details +--------+ + + + + | Date | Type | Department | Care Team | Description | +--------+ + + + + | 07/02/ | Hospital | [facility] | Peggy Cason, NICOLE | Carotid stenosis, | | 2019 | Encounter | VASCULAR SURGERY | [address] | bilateral | | | | ULTRASOUND [address] | [address] [place] | | | | | [address] | [address] | | | | | [place] | | | | | | [address] | | | | | | [phone] | | | +--------+ + + + [...] [address] | | | | | | [place] [address] | | | | | | [phone] | | | | | | | | +--------+---------+ + + + documented as of this encounter Procedures + +--------+ + + + | Procedure Name | Priori | Date/Time | Associated Diagnosis | Comments | | | ty | | | | + +--------+ + + + | VAS CAROTID DUPLEX | Routin | 07/02/2019 | Carotid stenosis, | Results for this | | BILATERAL | e | 11:45 AM | bilateral | procedure are in the | | [...] | + + | Carotid stenosis, bilateral 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
--- OUTSIDE RECORDS SUMMARY | ~2020-02-23 | XMS | Encounter Summary ---
Demographics + + + | Address | [address] | | | [place] [address] | + + + | Home Phone | | + + + | Preferred Language | Unknown | + + + | Marital Status | | + + + | Anabaptism Affiliation | Unknown | + + + | Race | Unknown | + + + | Ethnic Group | Unknown | + + + Author + + + | Author | [facility] | | | and [place] | + + + | Organization | [facility] | | [...] [place] | | | | | [address] | | + + + + + Care Team Providers + +------+ + | Care Tarp Repairer Name | Role | Phone | [...] + + | 12/19/ | Anesthesia | [facility] | Julian Claudio, | | | 2016 | Event | [facility] | MD [address] | | | | | [address] | [place] | | | | | [place] | [address] | | | | | [address] | | | | | | [phone] | Kyree Escamilla | | | | | | MD Rian [address] | | | | | | [address] [place] | | | | | | [place] [address] | | | | | | | | | | | | | | +--------+ + + + + Anesthesia Record + + + + + | Procedure Name | Responsible | Anesthesia Start | Anesthesia Stop Time | | | Anesthesiologist | Time | | + + + + + | ORIF ÁNGELA STEEL | Julian Claudio MD | 12/19/16 161 | 12/19/161941 | | FEMORAL ANTEGRADE | [...] +----+---+ + + | | 1 | [place] | | | | 6 | 43-degrees | | | | 4 | | | | | 2 | | | +----+---+ + + | | 1 | First | | | | 6 | Inc[address] | | | | 5 | | | | | 2 | | | +----+---+ + + | | 1 | [place] off | | | | 9 | [...] g | + + + | glycopyrrolate (HELGA) | 0.5 mg | | injection (5 [...] RN | Meagan Pendleton RN | | Geovanna | unstable fractures; indwelling | | | [...] + + + | Wound | 12/18/16; 223; Right; lower; | 12/18/162233 by | 01/17/17 133 by | | | arm; skin tear; 01/17/17; 133 | Lashaun Stein RN | Sabra Gupta RN | +--------+ + + + | Wound | 12/18/16; 2233; Left; upper, | 12/18/162233 by | 01/03/172114 by | | | anterior; chest; skin tear; | Lashaun Stein RN | Catarina Winchester | | | 01/03/17; 2114 | Sanjuanita Romeo RN | +--------+ + + + | Wound | 12/18/16; 2234; Left; lower; arm; | 12/18/162234 by | 01/17/17 1330 by | | | skin tear; 01/17/17; [...] by | | only - | healed; 01/17/17; 1329 | Kalina Strong RN | Sabra Gupta RN | | | | | | | Inc[place] | | | | | on | | | | +--------+ + + + | Read | 12/19/161941; Left; hip; | 12/19/161941 by | 01/17/17 1330 by | | only - | healed; 01/17/17; 0 | Kalina Strong RN | Sabra Gupta [...] + + documented as of this encounter OR Notes Anesthesia Postprocedure Evaluation - Julian Claudio MD - 12/19/2016 7:44 PM PDTFormatti ng of this note might be different from the original. ANESTHESIA POSTANESTHESIA EVALUATION Deborah Thomason 86 y.o. male 1930 [id number] Procedure(s) ORIF IM RODDING FEMORAL ANTEGRADE (Right Femur) ORIF IM RODDING FEMORAL TROCHANTERIC NAIL (Left Hip) Cooperates? Yes Mental Status Performs simple tasks. and does not seem well-oriented. Respiratory Satisfactory - Airway patent (self maintained). Cardiovascular Satisfactory - Blood pressure and heart rate acceptable Temperature Satisfactory Pain Satisfactory N/V Control Satisfactory Hydration Satisfactory - No signs of dehydration Complications None apparent Vitals: 12/19/16 1439 12/19/16 1935 12/19/161938 BP: 137/83 121/59 121/59 Pulse: 105 98 101 Temp: 36.7 C (98.1 F) 36.1 C (97 F) Resp: 14 18 20 SpO2: (!) 73% 96% Electronically signed by Julian Claudio MD 12/19/2016 19:44 [facility] Julian Claudio MD at 11/21 7:45 PM PDTAnesthesia Procedure Notes - Valente Munoz MD - 12/19/2016 4:39 PM PDTAssociated Order(s): ANE AIRWAY NOTEAnesthesia Airway Placement 12/19/2016 16:19 Preprocedure check: patient identified, oxygen, airway assessed, patient reassessment prior to induction, airway equipment checked and suction Mask ventilation: easy Successful technique: Mac Laryngoscope blade size: 3 Airway grade: 2a (Partial view of glottis) Other equipment: stylette Attempts: 1 Airway type: endotracheal Size: 6.5 Cuffed: cuffed Route, reference point: right side of mouth Tube secured with: adhesive tape Trauma: none Tube placement verification: carbon dioxide detection, equal bilateral breath sounds and bi lateral chest rise Comments: Head initially in neurtral Position. Smooth IV induction, mask airway established. Direct Laryngoscopy, ETT placed under direct vision. BSEB/ETCO2 (auscultation and capnogra phy) to confirm placement. Depth noted. Ventilator on. Electronically Signed by: Valente Munoz MD ESig date/time: 12/19/2016 16:39 nesthesia Preproc edure Evaluation - Valente Munoz MD - 12/19/2016 2:26 PM PDTFormatting of this note m ight be different from the original. ANESTHESIA PREANESTHESIA EVALUATION Deborah Thomason 86 y.o. male 1930 [id number] Procedure(s): ORIF IM RODDING FEMORAL ANTEGRADE (Right Femur) ORIF IM RODDING FEMORAL TROCHANTERIC NAIL (Left Hip) Medical history, anesthesia, medications, allergy, NPO status verified histories reviewed. ECG reviewed. Labs reviewed. Review of Systems / Med History Anesthesia History No anesthesia complications. Cardiovascular (+) Dysrhythmias: atrial flutter (+) PVD: , Exercise tolerance <4 METS Pulmonary Negative except where noted below. Neurology (+) CVA Psychology Negative except where noted below. Renal Negative except where noted below. Gastrointestinal/Hepatic Negative except where noted below. Endocrine Negative except where noted below. Other Negative except where noted below. Cancer Negative except where noted below. Physical Exam Airway MP II, TM >3 FB, Mouth opening >2 FB. Neck: full ROM, extends >30 degrees. Jaw protrus ion normal. Dental Grossly normal except where noted below.; (+) Age appropriate dentition. CV Rhythm regular. Rate Normal. (-) murmur, carotid bruit, peripheral edema, JVD and weak pulses. Pulm Clear to auscultation bilaterally. (-) wheezing, rhonchi, decreased breath sounds, rales and stridor. Neuro Grossly normal. Anesthesia Plan ASA 3 Type: General. Induction: Intravenous. Potential problems: None anticipated. Monitors: Standard ASA monitors. Consent statement:Anesthetic plan, alternatives, risks and benefits discussed with patient and family. Risks discussed included (but were not limited to): dental injury, pain, sore throat, infec tion, voice injury, muscle aches, nausea, respiratory events, . Consenting person understands and agrees to proceed. PARQ. Risks and benefits of general anesthetic discussed with patient and available family member s. They agree to proceed, answered all questions. 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 documented in this encounter Plan of Treatment +--------+---------+ + + + | Date | Type | Specialty | Care Team | Description | +--------+---------+ + + + | 08/04/ | Office | Cardiology | Anusha Lomax | | | 2020 | Visit | | [address] | | | | | | [address] | | | | | | [place] [address] | | | | | | [phone] | | | | | | | [...] | | | | |Electronically Signed by: Valente Munoz MD ESig date/time: 12/19/2016 16:39 | | | + [...] 4:14 | | | | | Starting 12/19/16 at 1614, | | PM PDT | | | | | Anesthesia Intra-op | | | | | | + +--------+ +------+------+------+ +---+---+ | | | +---+---+ + +-------+ +-------+---+---+ | ePHEDrine 50 mg/mL injection | Given | 12/20/19 | 10 mg | | | | PRN, Starting Sat12/19/16 at | | 17 4:36 | | [...] | +---+---+ + +-------+ +--------+---+---+ | glycopyrrolate (ROBINUL) | Given | 12/20/19 | 0.5 mg | | | | injection Intravenous, PRN, | | 17 7:20 | | | | | Secretions, Starting Sat12/19/16 | | PM PDT | [...] | | | | | CONTINUOUS, Starting 12/19/16 | | PM PDT | [...] 7:20 | | | | | Starting 12/19/16 at 1920, | | PM PDT | | | | | Anesthesia Intra-op | | | | | | + +-------+ +------+---+---+ +---+---+ | | | +---+---+ + +-------+ +------+---+---+ | ondansetron (ZOFRAN) injection | Given | 05/31/20 | 4 mg | | | | [...]
--- OUTSIDE RECORDS SUMMARY | ~2020-02-23 | XMS | Encounter Summary ---
Demographics + + + | Address | [address] | | | [place] [address] | + + + | Home Phone | | + + + | Preferred Language | Unknown | + + + | Marital Status | | + + + | Alevism Affiliation | Unknown | + + + | Race | Unknown | + + + | Ethnic Group | Unknown | + + + Author + + + | Author | [facility] | | | and [place] | + + + | Organization | [facility] | | | and [place] | + + + | Address | Unknown | + + + | Phone | Unavailable | + + + Support + + + + + | Name | Relationship | Address | Phone | + + + + + | Rivka Barrettmichelle | [address] | | | | | | [place] | | | | | [address] | | + + + + + Care Team Providers + +------+ + | Care Sales Promotion Coordinator Name | Role | Phone | [...] + + | 01/26/ | Office | [facility] | [place], | Chronic atrial | | 2020 | Visit | CARDIOLOGY SERA | [address] | fibrillation | | | | [address] | [place] | (Primary Dx); | | | | [address] | [address] | Chronic diastolic | | | | [place] | | heart failure (HCC); | | | | [address] | | Essential | | | | [phone] | | hypertension; Stage | | | [...] encounter Progress Notes Paolo Carrillo MD - 01/27/2020 3:00 PM PDTFormatting of this note might be different f rom the original. Date of visit: 01/27/2020 Primary Care Physician: Carlos Alberto Galesa MD CHIEF COMPLAINT: Chief Complaint Patient presents with Follow-up HISTORY OF PRESENT ILLNESS: Deborah is 89 y.o. here for follow up visit. History of chronic atrial fibrillation. Continues to be on rate control strategy with metoprolol and digoxin secondary to labile lo w blood pressure. Left lower ext ischemia, S/P angioplasty and endarterectomy of the iliac and femoral artery . Currently euvolemic denies any chest pain or shortness of breath, trace lower extremity rikki ma. Had one emergency room visit on October 04, 2018 secondary to shortness of breath. His BNP was found to be elevated was diuresed and discharged home same day. Used to follow-up with cardiology at [facility]. History of chronic atrial fibrillation with a previous attempt of ablation 2007. Patient pathak s been in atrial fibrillation since. Had unfortunate fall in December 2016 he had bilateral femoral bone fracture. Limited activity level due to bilateral leg pain and back pain. Past medical history, SH, FH, and medications were reviewed in the chart. Medications: Outpatient Encounter Medications as of 01/27/2020 Medication Sig Dispense Refill [DISCONTINUED] amiodarone (PACERONE) 200 mg tablet Take 1 tablet by mouth Daily. 60 tab let 3 Ascorbic Acid (VITAMIN C) 500 MG [...] MG tablet Take 3 mg by mouth Daily . [DISCONTINUED] warfarin (COUMADIN) 5 mg tablet Take 5 mg by mouth Daily. 5 mg on , Sat, , Sat, Sun [DISCONTINUED] povidone-iodine 5 % external solution [DISCONTINUED] sodium chloride 0.9% (NS) infusion No facility-administered encounter medications on file as of 01/27/2020. Allergies Allergies Allergen Reactions Naproxen Other (See Comments) States "put me in the hospital with kidney failure" States "put me in the hospital with kidney failure" Penicillins Swelling, Rash and Hives Lips swell eyes swell shut and pruritis Acetaminophen Rash Lisinopril Other (See Comments) Olmesartan Other (See Comments) Prednisone Other (See Comments) "Knocks heart out of rhythm" REVIEW OF SYSTEMS: Constitutional: Positive for chronic fatigue. Weight has been stable. HEENT: Patient [...] or anxiety. PHYSICAL EXAM Vital Signs: BP (!) 86/60 | Pulse 57 | Ht 1.753 m (5' 9") | Wt 71.7 kg (158 lb) | SpO2 93% | BMI 23 .33 kg/m GENERAL APPEARANCE: Alert, oriented, cooperative, no [...] extremity edema more on the right side. Bilateral arm ecchymosis. NEURO: Alert and oriented times three with no focal deficit. Cranial nerves are grossly no rmal. SKIN: Warm and dry. No rash. Psych: Normal affect and mood. DATA Lab Results Component Value Date/Time NA 134 (L) 2019 04:31 AM NA 135 09/19/2019 04:20 AM NA 135 09/18/2019 04:06 AM K 4.3 2019 04:31 AM K 4.3 09/19/2019 08:20 PM K 4.0 09/19/2019 11:06 AM CO2 25 2019 04:31 AM CO2 27 09/19/2019 04:20 AM CO2 26 09/18/2019 04:06 AM BUN 18 2019 04:31 AM BUN 17 09/19/2019 04:20 AM BUN 18 09/18/2019 04:06 AM CREA 0.91 2019 04:31 AM CREA 0.87 09/19/2019 04:20 AM CREA 0.97 09/18/2019 04:06 AM CALCIUM 9.1 2019 04:31 AM CALCIUM 8.7 09/19/2019 04:20 AM CALCIUM 9.1 09/18/2019 04:06 AM MG 1.7 2019 04:31 AM MG 1.7 09/19/2019 04:20 AM MG 1.9 09/18/2019 04:06 AM Lab Results Component Value Date/Time WBC 7.94 2019 04:31 AM WBC 7.34 09/19/2019 04:20 AM WBC 7.61 09/18/2019 04:06 AM HGB 9.7 (L) 2019 04:31 AM HGB 9.7 (L) 09/19/2019 04:20 AM HGB 9.2 (L) 09/18/2019 04:06 AM HCT 29.1 (L) 2019 04:31 AM HCT 28.4 (L) 09/19/2019 04:20 AM HCT 27.5 (L) 09/18/2019 04:06 AM MCV 89.3 2019 04:31 AM MCV 89.0 09/19/2019 04:20 AM MCV 89.3 09/18/2019 04:06 AM Lab Results Component Value Date ALT 35 2019 ALT 27 09/19/2019 EK06/10/2019 Ordered and reviewed myself showed atrial fibrillation with controlled ventricular rate. 01/27/2017 [facility] showed atrial fibrillation with fairly controlled ventricular response heart rate 101 Last Echo: 12/26/2016 From [facility] Normal LV size and systolic function EF 60%. Mild left ventricular h ypertrophy. Dilated aortic root 4.6 cm. Mild dilated left atrium. No pulmonary hypertension. Last stress test: 2010 From [facility] Normal perfusion. Last cath: Carotid US: AAA screening: Lower extremity US: OTHERS: ASSESSMENT & PLAN Patient is 89 y.o. male with the following medical problems. 1. Chronic atrial fibrillation on rate control strategy and anticoagulation. CHADSVASc of 4 -5. 2. Chronic anticoagulation with warfarin. 3. Chronic heart failure with preserved systolic function. Currently euvolemic. 4. History peripheral vascular disease in the right lower and upper extremities. 5. Bilateral carotid disease previous right carotid endarterectomy, severe left carotid dis ease. 6. Peripheral vascular disease states post left common femoral, profunda, external iliac en darterectomy. Angioplasty of the left common iliac artery with 10 x 39 mm and 10 x 29 mm VB X. 7. Hypertension currently blood pressures fairly controlled. 8. Chronic kidney disease stage III. Recommendations: She denies any anginal symptoms. Heart rate continues to be fairly controlled. If patient becomes symptomatic with hypotension then metoprolol can be stopped and continue with digoxin. Continue with anticoagulation. Patient can follow-up in 6 months with Anusha Muhammad and myself in 9. Patient will call with any change in [...] [address] | | | | | | [place] [address] | | | | | | [phone] | | | | | | | | +--------+---------+ + + + documented as of this encounter Visit Diagnoses + + | Diagnosis | + + | Chronic atrial fibrillation - Primary Atrial fibrillation | + + | Chronic diastolic heart failure (HCC) Chronic diastolic heart failure | + + | Essential hypertension Unspecified essential hypertension | + + | Stage 3 chronic kidney disease (HCC) | + + documented in this encounter
--- OUTSIDE RECORDS SUMMARY | ~2020-02-23 | XMS | Encounter Summary ---
Demographics + + + | Address | [address] | | | [place] [address] | + + + | Home Phone | | + + + | Preferred Language | Unknown | + + + | Marital Status | | + + + | Roman Catholic Affiliation | Unknown | + + [...] [place] | | | | | [address] | | + + + + + Care Team Providers + +------+ + | Care Sales Support Consultant Name | Role | Phone | + +------+ + | Carlos Alberto Galeas MD | PCP | | + +------+ + Reason for Visit + +--------+ + | Reason | Onset | Comments | | | Date | | + +--------+ + | Imaging Only | 09/22/ | | | | 2019 | | + +--------+ + Encounter Details +--------+ + + + + | Date | Type | Department | Care Team | Description | +--------+ + + + + | 09/22/ | Telephone | [facility] | Anya Ramon, | Imaging Only | | 2019 | | VASCULAR SURGERY | RN | | | | | [address] | | | | | | [place] | | | | | | [address] | | | | | | [phone] | | | +--------+ + + + [...] this encounter Miscellaneous Notes Telephone Encounter - Anya Ramon RN - 09/23/2019 11:18 AM PSTUltrasound orders faxe d to Sunil[facility] as requested by patient. Patient notified. documented in this encounter Plan of Treatment +--------+---------+ + + + | Date | Type | Specialty | Care Team | Description | +--------+---------+ + + + | 08/04/ | Office | Cardiology | MonieAnusha | | | 2020 | Visit | | [address] | | | | | | [address] | | | | | | [place] [address] | | | | | | [phone] | | | | | | | | +--------+---------+ + + + documented as of this encounter Visit Diagnoses Not on filedocumented in this encounter"
--- OUTSIDE RECORDS SUMMARY | ~2020-02-23 | XMS | Encounter Summary ---
Demographics + + + | Address | [address] | | | [place] [address] | + + + | Home Phone | | + + + | Preferred Language | Unknown | + + + | Marital Status | | + + + | Catholic Affiliation | Unknown | + + + | Race | Unknown | + + + | Ethnic Group | Unknown | + + + Author + + + | Author | [facility] | | | and [place] | + + + | Organization | [facility] | | [...] [place] | | | | | [address] | | + + + + + Care Team Providers + +------+ + | Care Sed High School Teacher Name | Role | Phone | [...] 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Michael I, | [address] | | | | | carotid | MD, FACS | [place], | | | | | artery, | [address] | [place] [address] | | | | | unspecified | [place] | Phone: | | | | | laterality | [place], [place] | [phone] | | | | | Procedures | [address] | Fax: | | | | | CT Angiogram | Phone: | [phone] | | | | | Neck w | [phone] | | | | | | Contrast | Fax: | | | | | | | [phone] | | +--------+--------+ + + + + [...] [address] | | | | | ([facility]LY [facility]) | [place] | [place], | | | | | Procedures | [place], | [place] [address] | | | | | [place] OFFICE | [place] [address] | Phone: | | | | | OUTPATIENT | Phone: | [phone] | | | | | NEW 45 | [phone] | Fax: | | | | | MINUTES | Fax: | [phone] | | | | | | [phone] | | +--------+--------+ + + + + Encounter Details +--------+---------+ + + + | Date | Type | Department | Care Team | Description | +--------+---------+ + + + | 02/24/ | Office | [facility] | Michael Alston | Subclavian steal | | 2018 | Visit | SURGERY [address] | MD Dante, FACS [address] | syndrome (Primary | | | | [address] [place], [place] | [address] [place] | Dx); 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| | | [address] | [place] [address] | carotid artery, | | | | [phone] | [phone] | unspecified | | | | | [...] Progress Notes Michael Alston MD, FACS - 02/24/2018 10:30 AM PDTFormatting of this note might be diff erent from the original. HISTORY OF PRESENT ILLNESS Patient Identification: Deborah Thomason 1930 Is a 87 y.o. male , a patient o f Carlos Alberto Galeas MD. Patient is here with his [...] cavity is unremarkable. The parapharyngeal, retropharyngeal, and sports photographer spaces are normal. Complete fatty atrophy of [...] 02/06/2018 Mycosis fungoides (HCC) Dx [facility] approx 2000 PVD (peripheral vascular disease) (HCC) 02/06/2018 Urinary retention Past Surgical History: Procedure Laterality Date CAROTID ENDARTERECTOMY Right CATARACT REMOVAL WITH IMPLANT Bilateral 03/30/10 and 04/27/10 CORONARY ANGIOPLASTY without stent [facility] Approx [id number] FEMUR FRACTURE SURGERY Right 12/19/2016 Procedure: ORIF [...] l umen on Q pain pump placement. [facility] - Dr. Delaney Right thigh biopsy 10/24/2011 nonspecific chronic dermatitis Ultrasound guided access, right common femoral artery 11/30/2013 Right iliac angiography, Right femoral angiography with runoff. [facility] - Dr. Delaney Allergies Allergen [...] TABS Take 1 tablet by mouth Daily. [place]-3 Fatty Acids (FISH OIL PO) Take 1 [...] claudication 4. I spoke with Dr Galeas ([phone]) regarding follow up for lung lesions seen on C TA. Return to clinic in February 2019 following carotid CTA. CC: MD Michael Davis MD, FACS Vascular and General Surgery documented i n this encounter Miscellaneous Notes Addendum Note - Sherrill Darnell RN - 02/24/2018 10:30 AM PDT Addended by: SHERRILL DARNELL on : 02/24/2018 16:35 Modules accepted: Orders documented in this e [...] [address] | | | | | | [place] [address] | | | | | | [phone] | | | | | | | [...]
--- OUTSIDE RECORDS SUMMARY | ~2020-02-23 | XMS | Encounter Summary ---
Demographics + + + | Address | [address] | | | [place] [address] | + + + | Home Phone | | + + + | Preferred Language | Unknown | + + + | Marital Status | | + + + | Mandaeism Affiliation | Unknown | + + + | Race | Unknown | + + + | Ethnic Group | Unknown | + + + Author + + + | Author | [facility] | | | and [place] | + + + | Organization | [facility] | | | [...] [place] | | | | | [address] | | + + + + + Care Team Providers + +------+ + | Care Cafeteria Monitor Name | Role | Phone | + +------+ + | Carlos Alberto Galeas MD | PCP | | + +------+ + Encounter Details +--------+ + + + + | Date | Type | Department | Care Team | Description | +--------+ + + + + | 09/11/ | Orders Only | [facility] | Ck Newman W, | | | 2018 | | MED CTR OP INFUSION | PharmD [address] | | | | | [address] | [place], [place] | | | | | [place], [place] | [address] | | | | | [address] | | | | | | [phone] | | | +--------+ + + + [...] of this encounter Progress Notes Ck Newman, PharmOzzie - 09/11/2018 9:42 AM PSTIn October 2018 the Electronic Medical Record (EMR) system used by [facility] will be updated. The category used [...] insure continuity of care. Please contact the [facility] at with any questions [...] [address] | | | | | | [place] [address] | | | | | | [phone] | | | | | | | | +--------+---------+ + + + documented as of this encounter Visit Diagnoses Not on filedocumented in this encounter"
--- OUTSIDE RECORDS SUMMARY | ~2020-02-23 | XMS | Encounter Summary ---
Demographics + + + | Address | [address] | | | [place] [address] | + + + | Home Phone | | + + + | Preferred Language | Unknown | + + + | Marital Status | | + + + | Taoist Affiliation | Unknown | + + + | Race | Unknown | + + + | Ethnic Group | Unknown | + + + Author + + + | Author | [facility] | | | and [place] | + + + | Organization | [facility] | | | and [...] [place] | | | | | [address] | | + + + + + Care Team Providers + +------+ + | Care Woven Blind Loom Tender Name | Role | Phone | + +------+ + | Carlos Alberto Galeas MD | PCP | | + +------+ + Reason for Visit +--------+--------+ + | Reason | Onset | Comments | | | Date | | +--------+--------+ + | Pre-Op | 09/10/ | | | | 2019 | | +--------+--------+ + Encounter Details +--------+ + + + + | Date | Type | Department | Care Team | Description | +--------+ + + + + | 09/10/ | Telephone | [facility] | Osmin Garber MD | Pre-Op | | 2020 | | CENTER CV INTRA OP | [address] | | | | | [address] | [address] | | | | | [place], [place] | [place] [address] | | | | | [address] | [phone] | | | | | [phone] | | | +--------+ + + + [...] this encounter Miscellaneous Notes Telephone Encounter - Chio Haywood - 09/10/2019 2:18 PM PSTLeft voicemail to confirm check in time of 0600 on 09/11/19 and NPO after midnight. Asked for call back to confirm message.E lectronically signed by Chio Haywood at 09/10/2019 2:19 PM PSTdocumented in this encounter Plan of Treatment +--------+---------+ + + + | Date | Type | Specialty | Care Team | Description | +--------+---------+ + + + | 08/04/ | Office | Cardiology | Anusha Lomax | | | 2020 | Visit | | [address] | | | | | | [address] | | | | | | [place] [address] | | | | | | [phone] | | | | | | | | +--------+---------+ + + + documented as of this encounter Visit Diagnoses Not on filedocumented in this encounter"
--- OUTSIDE RECORDS SUMMARY | ~2020-02-23 | XMS | Encounter Summary ---
Demographics + + + | Address | [address] | | | [place] [address] | + + + | Home Phone [...] Organization | [facility] [...] [place] | | | | | [address] | | + + + + + Care Team Providers + +------+ + | Care Nuclear Supervising Operator Name | Role | Phone | + +------+ + | Carlos Alberto Galeas MD | PCP | | + +------+ + Reason for Visit + +--------+ + | Reason | Onset | Comments | | | Date | | + +--------+ + | Medication Question | 11/24/ | Coumadin | | | 2019 | | + +--------+ + Encounter Details +--------+ + + + + | Date | Type | Department | Care Team | Description | +--------+ + + + + | 11/24/ | Telephone | [facility] | Osmin Garber MD | Medication Question | | 2019 | | VASCULAR SURGERY | [address] | (Coumadin) | | | | [address] | [address] [facility] | | | | | E [place], [place] | [place] [address] | | | | | [address] | [phone] | | | | | [phone] | | | +--------+ + + + [...] Telephone Encounter - Anya Ramon RN - 11/25/2019 1:44 PM PDTReturn call made to Lashonda youngblood, according to patient's discharge summary from 2019, patient is suppose to continu e his Coumadin as prescribed. Hamida stated understanding, she will notify patient during his appointment with Dr Galeas today. Electronically signed by Anya Ramon RN at 12/2019 1:46 PM PDTTelephone Encounter - Karley Smith - 11/25/2019 11:00 AM PDTLindsey- Dr. Galeas's Office, is calling regarding Medication Question (Coumadin) and would like a call back. Additional Call Details: Caller states patient had stopped taking Coumadin since he was di scharged from the Hospital in September 2019. Is wanting to know if patient is needing to contin ue the Coumadin. Please call Hamida back at [phone]. If this is a symptom based call, was patient offered triage? Not Applicable If this is a symptom based call and you were unable to immediately transfer the call to a juhi cross drill sharpener operator was caller made aware that if at [...] [address] | | | | | | [place] [address] | | | | | | [phone] | | | | | | | | +--------+---------+ + + + documented as of this encounter Visit Diagnoses Not on filedocumented in this encounter"
--- OUTSIDE RECORDS SUMMARY | ~2020-02-23 | XMS | Encounter Summary ---
Demographics + + + | Address | [address] | | | [place] [address] | + + + | Home Phone [...] | Organization | [facility] [...] [place] | | | | | [address] | | + + + + + Care Team Providers + +------+ + | Care Camera Prototyping Engineer Name | Role | Phone | + +------+ + | Carlos Alberto Galeas MD | PCP | | + +------+ + Reason for Visit + +--------+ + | Reason | Onset | Comments | | | Date | | + +--------+ + | Appointment | 08/19/ | | | | 2019 | | + +--------+ + | Imaging | 08/19/ | | | | 2019 | | + +--------+ + Encounter Details +--------+ + + + + | Date | Type | Department | Care Team | Description | +--------+ + + + + | 08/19/ | Telephone | [facility] | Osmin Garber MD | Appointment; Imaging | | 2019 | | VASCULAR SURGERY | [address] | | | | | [address] | [address] [facility] | | | | | E [place], [place] | [place] [address] | | | | | [address] | [phone] | | | | | [phone] | | | +--------+ + + + [...] Telephone Encounter - Anya Ramon RN - 08/27/2019 8:55 AM PSTMultiple return calls made to Rivka, unable to reach Rivka due to busy signal. Imaging has been received. Will ma il out reminder with Dr Garber and office information to patient. elephone Encounter - Maryjo Birmingham - 08/27/2019 8:13 AM PSTJoyce, is calling again for Appointment and would like a call back. Additional Call Details: Wanting to know if imaging was received for the appointment. She is also wanting to know if a form can be sent in the mail that gives the providers name and the address of the office elephone Encoun ter - Janay Kaplan Aviation Maintenance Technician - 08/19/2019 11:28 AM PSTCalled back. No latrice r, left vm for a call back. Electronically signed by Janay Kaplan Aviation Maintenance Technician at 11:28 AM PSTTelephone Encounter - Ashley Ashley - 08/19/2019 9:02 AM PSTJoyce - , is calling regarding Appointment and would like a call back. Additional Call Details: Requesting to schedule an appointment. Please call back at . If this is a symptom based call, was patient offered triage? Not Applicable If this is a symptom based call and you were unable to immediately transfer the call to a juhi cross gas welding machine operator was caller made aware that if [...] [address] | | | | | | [place] [address] | | | | | | [phone] | | | | | | | | +--------+---------+ + + + documented as of this encounter Visit Diagnoses Not on filedocumented in this encounter"
--- OUTSIDE RECORDS SUMMARY | ~2020-02-23 | XMS | Encounter Summary ---
Demographics + + + | Address | [address] | | | [place] [address] | + + + | Home Phone [...] [place] | | | | | [address] | | + + + + + Care Team Providers + +------+ + | Care Rabbler Name | Role | Phone | + +------+ + | Carlos Alberto Galeas MD | PCP | | + +------+ + Reason for Visit +--------+--------+ + | Reason | Onset | Comments | | | Date | | +--------+--------+ + | LABS | 02/03/ | LAB ENTRY 08/10/2019 | | | 2020 | | +--------+--------+ + Encounter Details +--------+ + + + + | Date | Type | Department | Care Team | Description | +--------+ + + + + | 02/03/ | Telephone | [facility] | Paolo Selby, | LABS (LAB ENTRY | | 2019 | | CARDIOLOGY JULIO | MD Marjan MARINELLI | 08/10/2019) | | | | [address] | [place], [place] | | | | | [place], [place] | [id number] | | | | | [address] | | | | | | [phone] | | | +--------+ + + + [...] this encounter Miscellaneous Notes Telephone Encounter - Jacqueline Szymanski Medical Assistant - 02/04/2020 9:55 AM PDTLAB: INT ERPATH COLLECTION DATE: 08/10/2019 COLLECTION TIME: 1520 ORDERING PROVIDER: JESUS COMPREHENSIVE METABOLIC PANEL COMPONENT VALUE RANGE UNITS SODIUM 140 132-143 Meq/L POTASSIUM 4.7 3.6-5.1 Meq/L CHLORIDE 101 95-112 Meq/L CARBON DIOXIDE 28 19-31 Meq/L ANION GAP 15.7 7-21 GLUCOSE 99 70-100 Mg/dL UREA NITROGEN 22 6-23 Mg/dL CREATININE, SRM 1.18 H 0.70-1.11 Mg/dL GFR ESTIMATE 59 L Ml/min BUN/CREAT RTO 18.6 6.0-28.6 CALCIUM 9.0 8.6-10.3 Mg/dL AST (SGOT) 23 13-39 U/L ALT (SGPT) 19 7-62 U/L ALKALINE PHOS 118 31-130 U/L BILIRUBIN, TOTAL 0.3 0.0-1.2 Mg/dL PROTEIN 6.5 6.0-8.3 G/dL ALBUMIN 3.5 3.5-5.0 G/dL GLOBULIN 2.7 1.8-3.5 G/dL A/G RATIO 1.4 1.1-2.4 CBC COMPONENT VALUE RANGE UNITS WBC 7.2 4.5-11.0 K/ul RBC 4.21 L 4.3-5.7 M/ul HEMOGLOBIN 12.7 L 13.5-18.0 G/dl HEMATOCRIT 8.9 L 41-50 % MCV 92.4 81-99 Fl RDW 15.4 H 10.5-15.0 % MCH 30 27-33 Pg MCHC 33 30-36 G/dL PLATELET COUNT 246 140-440 K/ul docum ented in this encounter Plan of Treatment +--------+---------+ + + + | Date | Type | Specialty | Care Team | Description | +--------+---------+ + + + | 08/04/ | Office | Cardiology | Anusha Lomax | | | 2020 | Visit | | [address] | | | | | | [address] | | | | | | [place] [address] | | | | | | [phone] | | | | | | | | +--------+---------+ + + + documented as of this encounter Visit Diagnoses Not on filedocumented in this encounter"
--- OUTSIDE RECORDS SUMMARY | ~2020-02-23 | XMS | Encounter Summary ---
Demographics + + + | Address | [address] | | | [place] [address] | + + + | Home Phone | | + + + | Preferred Language | Unknown | + + + | Marital Status | | + + + | Hindu Affiliation | Unknown | + + + | Race | Unknown | + + + | Ethnic Group | Unknown | + + + Author + + + | Author | [facility] | | | and [place] | + + + | Organization | [facility] | | [...] [place] | | | | | [address] | | + + + + + Care Team Providers + +------+ + | Care Briquette Maker Name | Role | Phone | + +------+ + | Carlos Alberto Galeas MD | PCP | | + +------+ + Reason for Referral Evaluate & Treat (Routine) +--------+ + + + + + | Status | Reason | Specialty | Diagnoses / | Referred By | Referred To | | | | | Procedures | Contact | Contact | +--------+ + + + + + | Closed | Specialty | Cardiology | Diagnoses | Field, | [facility] | | | Services | | Chronic | Michael I, | Cardiology | | | Required | | atrial | MD, FACS | [address] | | | | | fibrillation | [address] | [place], | | | | | (HCC) | [place] | [place] | | | | | Procedures | [place], [place] | [address] | | | | | INVESTMENT OFFICER | [address] | Phone: | | | | | | Phone: | [phone] | | | | | | [phone] | Fax: | | | | | | Fax: | [phone] | | | | | | [phone] | | +--------+ + + + + + Reason for Visit + + + | Reason | Comments | + + + | Follow-up | CT follow up | + + + Encounter Details +--------+---------+ + + + | Date | Type | Department | Care Team | Description | +--------+---------+ + + + | 12/31/ | Office | [facility] | Michael Alston | Stenosis of carotid | | 2018 | Visit | SURGERY [address] | MD Dante, FACS [address] | artery, unspecified | | | | [address] [place], [place] | [address] [place] | laterality (Primary | | | | [address] | [place] [address] | Dx); Subclavian | | | | [phone] | [phone] | steal syndrome; | | | | | | Chronic atrial | | | | | | fibrillation (HCC) | +--------+---------+ + + + Social [...] + + + | Blood Pressure | 130/65 | 12/31/2018 10:27 AM | right arm | | | | PDT | | + + + + + | Pulse | 64 | 12/31/2018 10:23 AM | | | | | PDT | | + + + + + | Temperature | 35.6 C (96.1 F) | 12/31/2018 10:23 AM | | | | | PDT | | + + + + + | Respiratory Rate | - | - | | + + + + + | Oxygen Saturation | 97% | 12/31/2018 10:23 AM | | | | | PDT | | + + + + + | Inhaled Oxygen | - | - | | | Concentration | | | | + + + + + | Weight | 71 kg (156 lb 8.4 | 12/31/2018 10:23 AM | | | | oz) | PDT | | + + + + + | Height | 165.1 cm (5' 5") | 12/31/2018 10:23 AM | | | | | PDT | | + + + + + | Body Mass Index | 26.05 | 12/31/2018 10:23 AM | | | | | PDT [...] Progress Notes Michael Alston MD, FACS - 12/31/2018 10:40 AM PDTFormatting of this note might be diff erent from the original. HISTORY OF PRESENT ILLNESS Patient Identification: Deborah Thomason 1930 Is a 88 y.o. male , a patient o f Carlos Alberto Galeas MD. Patient is here with his . S: Follow up on carotid stenosis. Physician notes: Patient arrives today to follow up on carotid stenosis. Has history of RIGHT carotid endar terectomy about 30 years ago. A few months ago he stared getting intermittent episodes of LE FT eye double vision which lasts for about 10-15 minutes. Denies vision going black nor "sha sabiha" coming down. Has not followed up with his credentialing coordinator. He admits to occasional dizzy ep isodes. Can not say how often he experiences dizziness, [place] episode [place] about [place] States he got really dizzy and had to sit down. Describes these episodes as feeling faint, dizzy and weak and has to sit down. Episodes do not last long, is unsure h ow long they last. He also continues to have shoulder pain. Takes his blood pressure on his LEFT arm. believes he may have had a mini stroke based on his behavior, reports at times he goes "blank" . Patient states he is not able to go out for walks due to leg pain, uses a cane to ambulate. States he is not able to walk for more than 1 block before getting bilateral calf claudicat ion. Admits to a bad back, is only able to stand for 15-20 minutes before needing to sit down. Cardiac: Denies MO. Patient sees track broom operator Dr. Selby at [facility], recent ly seen on 12/03/2018 for chronic atrial fibrillation with a previous attempt at ablation in 2007. RISK: Prior stroke around 2017, recalls losing the use of his RIGHT arm. No strokes since 2 017. Believes he is in overall good health. DATA CT Angiogram Neck W/Contrast on 12/25/2018 FINDINGS: There is extensive calcified plaque in the imaged aortic arch. Variant common origin of the brachiocephalic and left common carotid arteries is again evident. The brachiocephalic artery contains calcified and noncalcified plaque but is widely patent. Severe, heavily calcified stenosis of the origin of the right subclavian artery is again demonstrated, and is difficult to quantify. The imaged right subclavian artery is otherwise widely patent. Approximate 60-70% heavily calcified stenosis persists at the origin of the left subclavian artery, and additional narrowing of approximately 60% persists slightly more distally in this vessel, at the level of a focal tortuosity, immediately proximal to the origin of the left vertebral artery. The left subclavian artery is widely patent otherwise. Calcified plaque is scattered throughout the left common carotid artery, without significant stenosis. Heavily calcified plaque is again demonstrated in the left carotid bulb, again moderately narrowing the origin of the external carotid artery. The external carotid branches are otherwise widely patent. Mixed attenuation plaque persists at the origin of the left internal carotid artery and appears to narrow vessel caliber by 60 to 70%, which is slightly increased from previous imaging. Focal extension of contrast into the noncalcified plaque is again evident in this vicinity. The left ICA is otherwise widely patent through the skull base. Calcified plaque in the cavernous ICA appears to fairly mildly narrow vessel caliber. Calcified plaque is scattered through the right common carotid artery, without significant stenosis. Heavily calcified plaque is again demonstrated in the right carotid bulb, narrowing vessel caliber by approximately 70%, which is slightly increased from previous imaging. There is similar mild to moderate narrowing of the origin of the external carotid artery. The external carotid branches are otherwise widely patent. Mixed attenuation plaque persists at the origin of the right internal carotid artery, narrowing the lumen by approximately 20-30%, which is slightly increased. The right ICA is otherwise widely patent through the skull base. Calcified plaque in the cavernous ICA appears to fairly mildly narrow vessel caliber. The right vertebral artery is again diffusely smaller in caliber relative to the left. There is calcified plaque at the origins of the vertebral arteries and scattered throughout their courses, with moderate stenosis of their intradural segments suggested. Focal high-grade stenosis of the right vertebral artery at the level of the C3-4 foramen persists unchanged. This appears to result from severe facet and uncovertebral hypertrophy. No aneurysm or greg vascular occlusion is evident. Evaluation of the venous structures is limited by timing of this arteriographic exam. The pharynx, larynx and imaged trachea are unremarkable, along with the thyroid and submandibular glands. The right parotid gland is unremarkable. The left parotid gland again appears atrophic or absent. No pathologic lymph node enlargement is evident. Extensive tiny ill-defined clustered nodules are again demonstrated in the imaged upper lungs and appear subjectively similar to decreased in extent. Mild biapical pleural thickening persists. The paranasal sinuses, middle ear cavities and mastoid air cells are well aerated. Cystic change persists in the odontoid process, with marked degeneration of the anterior C1-2 articulation again apparent. Reversal of the cervical lordosis persists and severe multilevel degenerative disc disease, spondylosis, mild spondylolisthesis and variable central canal and foraminal stenosis are again apparent. Numerous dental caries are suggested. IMPRESSION - 1. EXTENSIVE ATHEROSCLEROSIS WITH STENOSIS INVOLVING THE ORIGINS OF THE RIGHT GREATER THAN LEFT SUBCLAVIAN ARTERIES, CERVICAL CAROTID ARTERIES AND VERTEBRAL ARTERIES, DETAILED ABOVE. 2. EXTENSIVE TINY CLUSTERED NODULES IN THE IMAGED UPPER LUNGS, SIMILAR TO SLIGHTLY DECREASED IN EXTENT FROM IMAGING OF JANUARY 2018 AND POTENTIALLY A MANIFESTATION OF SMALL AIRWAY CENTERED INFECTION OR INFLAMMATION. 3. 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 4. POOR DENTITION. Dictated and Signed by: Daniel Jordan MD Electronically signed: 12/25/2018 11:46 AM I have reviewed these images and agree with Radiologists findings. 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 PVD (peripheral vascular disease) ([facility]) 02/06/2018 Urinary retention Past Surgical History: Procedure Laterality Date CAROTID ENDARTERECTOMY Right CATARACT REMOVAL WITH IMPLANT Bilateral 03/30/10 and 04/27/10 CORONARY ANGIOPLASTY without stent [facility] Approx [id number] FEMUR FRACTURE SURGERY Right 12/19/2016 Procedure: ORIF [...] umen on Q pain pump placement. [facility] - Dr. Delaney Right thigh biopsy 10/24/2011 nonspecific chronic dermatitis Ultrasound guided access, right common femoral artery 11/30/2013 Right iliac angiography, Right femoral angiography with runoff. [facility] - Dr. Delaney Allergies Allergen [...] heart out of rhythm" Medications: Outpatient Encounter Medications as of 12/31/2018 Medication Sig Dispense Refill Ascorbic Acid (VITAMIN [...] 25 mg by mouth 2 times daily. Misc Natural Products (PROSTATE THERAPY COMPLEX) CAPS [...] 400 unit capsule Take by oral route. triamcinolone (KENALOG) 0.1% cream warfarin (COUMADIN) 3 MG tablet Take 5 mg by mouth Daily. Saturday, and Saturday warfarin (COUMADIN) 5 mg tablet Take 3 mg by mouth Daily. As directed 5 mg on , Sat rs, Sat, Saturday or as directed by doctor. No facility-administered encounter medications on file as of 12/31/2018. Family History Problem Relation Age of Onset Coronary artery disease Mother CABG Heart attack Father Heart disease Father Emphysema Father No known problems Sister Coronary artery disease Brother * Brother health statuses unknown Social History: He reports that he quit smoking about 16 years ago. He started smoking about 66 years ago. He has a 50.00 pack-year smoking history. He has never used smokeless tobacco. He reports th at he drinks about 0.6 oz of alcohol per week. He reports that he does not use drugs. PHYSICAL EXAM Vitals: 12/31/18 1023 12/31/18 1027 BP: 133/78 130/65 Pulse: 64 Temp: 35.6 C (96.1 F) TempSrc: Temporal SpO2: 97% Weight: 71 kg (156 lb 8.4 oz) Height: 1.651 m (5' 5") Body mass index is 26.05 kg/m. PE: General Appearance: Alert, cooperative, no distress, appears stated age Head: Normocephalic, without obvious abnormality Neck: Supple, symmetrical, no adenopathy, bilateral soft neck bruits, RIGHT neck scar Lungs: Breath sounds are clear to auscultation bilaterally, no wheezes or crackles. Heart: Irregular rate and rhythm, S1, S2 normal, no mumur. Abdomen: Soft, non-tender, flat, No scars, Reducible 1cm umbilical hernia in supine posi tion. Lower Extremities: Extremities normal, atraumatic, no cyanosis, clubbing, or edema. RIGHT groin scar, RIGHT leg with 4+ pitting edema. Palpable Pulses*: Femoral Popliteal Dorsalis pedis Post tibial LEFT 1 0 0 0 RIGHT 1 1-2 0 2 Doppler Pulses: LEFT absent absent RIGHT absent strong Neurologic: Gait normal ASSESSMENT 1. Stenosis of carotid artery, unspecified laterality 2. Subclavian steal syndrome 3. Chronic atrial fibrillation (HCC) PLAN 1. LEFT ICA 60-7o% stenosis In consideration of doing LEFT carotid endarterectomy patient needs a cardiology evaluatio n and a carotid duplex scan. 2. RIGHT vertebral with high grade stenosis. 3. Would like patient to establish with a track broom operator from [facility], will refer him to jaycob ferrell for cardiac clearance. Follow up in 2 months. Michael Alston MD, FACS Vascular and General Surgery dojuliet hernandez this encounter Plan of Treatment +--------+---------+ + + + | Date | Type | Specialty | Care Team | Description | +--------+---------+ + + + | 08/04/ | Office | Cardiology | Anusha Lomax | | | 2020 | Visit | | [address] | | | | | | [address] | | | | | | [place] [address] | | | | | | [phone] | | | | | | | | +--------+---------+ + + + + + +--------+ + + | Name | Type | Priori | Associated Diagnoses | Order Schedule | | | | ty | | | + + +--------+ + + | * [facility] | Outpatient | Routin | Chronic atrial | Ordered: 12/31/2018 | | Cardiology - AMB | Referral | e | fibrillation (HCC) | | | Referral | | | | | + + +--------+ [...] 107/19; ECA: 194/9; ICA: 130/17 (ICA/CCA 2.3, [id number] with | | ratio of 2.9)Posterior circulation: [...] unspecified laterality - Primary | + + | Subclavian steal syndrome | + + | Chronic atrial fibrillation (HCC) Atrial fibrillation | + + documented in this encounter
--- OUTSIDE RECORDS SUMMARY | ~2020-02-23 | XMS | Encounter Summary ---
Demographics + + + | Address | [address] | | | [place] [address] | + + + | Home Phone [...] [place] | | | | | [address] | | + + + + + Care Team Providers + +------+ + | Care Software Controls Engineer Name | Role | Phone | + +------+ + | Carlos Alberto Galeas MD | PCP | | + +------+ + Encounter Details +--------+ + + + + | Date | Type | Department | Care Team | Description | +--------+ + + + + | 07/19/ | Abstract | [facility] | , Michael | | | 2018 | | SURGERY [address] | MD Dante, FACS [address] | | | | | [address] [place], [place] | [address] [facility] | | | | | [address] | [place] [address] | | | | | [phone] | [phone] | | | | | | | [...] [address] | | | | | | [place] [address] | | | | | | [phone] | | | | | | | [...]
--- OUTSIDE RECORDS SUMMARY | ~2020-02-23 | XMS | Encounter Summary ---
Demographics + + + | Address | [address] | | | [place] [address] | + + + | Home Phone | | + + + | Preferred Language | Unknown | + + + | Marital Status | | + + + | Temple Affiliation | Unknown | + + + | Race | Unknown | + + + | Ethnic Group | Unknown | + + + Author + + + | Author | [facility] | | | and [place] | + + + | Organization | [facility] | | | [...] [place] | | | | | [address] | | + + + + + Care Team Providers + +------+ + | Care Patient Safety Officer Name | Role | Phone | [...] | | fibrillation | [address] | [address] | | | | | (HCC) | [address] | [place], [place] | | | | | Essential | [place], [place] | [address] | | | | | hypertension | [address] | Phone: | | | | | PVD | Phone: | [phone] | | | | | (peripheral | [phone] | Fax: | | | | | vascular | Fax: | [phone] | | | | | disease) | [phone] | | | | | | (HCC) [...] + + | 07/02/ | Hospital | [facility] | Peggy Cason, NICOLE | PAD (peripheral | | 2019 | Encounter | VASCULAR SURGERY | [address] | artery disease) | | | | ULTRASOUND [address] | [address] [place], [place] | ([facility]) | | | | [address] | [address] | | | | | [place], [place] | | | | | | [address] | | | | | | [phone] | | | +--------+ + + + [...] [address] | | | | | | [place] [address] | | | | | | [phone] | | | | | | | | +--------+---------+ + + + documented as of this encounter Visit Diagnoses + + | Diagnosis | + + | PAD (peripheral artery disease) (HCC) Unspecified disorders of arteries and | | arterioles | + + documented in this encounter"
--- OUTSIDE RECORDS SUMMARY | ~2020-02-23 | XMS | Encounter Summary ---
Demographics + + + | Address | [address] | | | [place] [address] | + + + | Home Phone [...] Organization | [facility] [...] [place] | | | | | [address] | | + + + + + Care Team Providers + +------+ + | Care Forestry Patrolman Name | Role | Phone | + +------+ + | Carlos Alberto Galeas MD | PCP | | + +------+ + Encounter Details +--------+ + + + + | Date | Type | Department | Care Team | Description | +--------+ + + + + | 02/03/ | Hospital | [facility] | Carlos Alberto Galeas | Peripheral vascular | | 2018 | Encounter | MED [facility] ULTRASOUND | MD Dylan [address] | disease, unspecified | | | | [address] [place] | [address] | ([facility]) | | | | [place] | [place] [address] | | | | | [address] | [phone] | | | | | [phone] | | | | | | | [...] [address] | | | | | | [place] [address] | | | | | | [phone] | | | | | | | [...] | | | | PDT | unspecified ([facility]) | results section. | + [...] | Zac Pierce Results In - 02/03/2018 3:29 PM PDT [...]
--- OUTSIDE RECORDS SUMMARY | ~2020-02-23 | XMS | Encounter Summary ---
Demographics + + + | Address | [address] | | | [place] [address] | + + + | Home Phone | | + + + | Preferred Language | Unknown | + + + | Marital Status | | + + + | Mandaen Affiliation | Unknown | + + + | Race | Unknown | + + + | Ethnic Group | Unknown | + + + Author + + + | Author | [facility] | | | and [place] | + + + | Organization | [facility] | | [...] [place] | | | | | [address] | | + + + + + Care Team Providers + +------+ + | Care Marble Carver Name | Role | Phone | + +------+ + | Carlos Alberto Galeas MD | PCP | | + +------+ + Reason for Visit +---------+--------+ + | Reason | Onset | Comments | | | Date | | +---------+--------+ + | Consult | 06/29/ | | | | 2018 | | +---------+--------+ + Encounter Details +--------+ + + + + | Date | Type | Department | Care Team | Description | +--------+ + + + + | 06/29/ | Telephone | [facility] | Peggy Cason DNP | Consult | | 2019 | | VASCULAR SURGERY | [address] | | | | | [address] | [address] [place], [place] | | | | | [place], [place] | [address] | | | | | [address] | | | | | | [phone] | | | +--------+ + + + [...] this encounter Miscellaneous Notes Telephone Encounter - Osiris Mcclain, Software Licensing Executive - 06/29/2019 4:43 PM PSTPt has con sult with Dr. Peterson for PVD, needs imaging done prior. documented in this encounter Plan of Treatment +--------+---------+ + + + | Date | Type | Specialty | Care Team | Description | +--------+---------+ + + + | 08/04/ | Office | Cardiology | MonieAnusha | | | 2020 | Visit | | [address] | | | | | | [address] | | | | | | [place] [address] | | | | | | [phone] | | | | | | | | +--------+---------+ + + + documented as of this encounter Visit Diagnoses + + | Diagnosis | + + | PAD (peripheral artery disease) (HCC) - Primary Unspecified disorders of arteries and | | arterioles | + + documented in this encounter"
--- OUTSIDE RECORDS SUMMARY | ~2020-02-23 | XMS | Encounter Summary ---
Demographics + + + | Address | [address] | | | [place] [address] | + + + | Home Phone | | + + + | Preferred Language | Unknown | + + + | Marital Status | | + + + | Amish Affiliation | Unknown | + + + | Race | Unknown | + + + | Ethnic Group | Unknown | + + + Author + + + | Author | [facility] | | | and [place] | + + + | Organization | [facility] | | | [...] [place] | | | | | [address] | | + + + + + Care Team Providers + +------+ + | Care Regional Trainer Name | Role | Phone | + [...] + + | 09/29/ | Office | [facility] | Osmin Garber MD | Critical limb | | 2020 | Visit | VASCULAR SURGERY | [address] | ischemia with | | | | [address] | [address] | history of | | | | E [place], [place] | [place] [address] | revascularization of | | | | [address] | [phone] | same extremity | | | | [phone] | | (Primary Dx) | +--------+---------+ + [...] of this note might be different from itzel branham. [facility] [address], [place] [address] Office: [phone] DATE OF VISIT: 09/30/19 PATIENT NAME: Deborah Thomason : 1930; AGE:89 y.o.; Sex:M PHONE NUMBER: ; PHYSICIAN: Osmin Garber MD PRIMARY CARE / REFERRING PHYSICIAN: No ref. provider found / Carlos Alberto Galeas MD / [address] / [place] [address] REASON FOR EVALUATION / CHIEF COMPLAINT: evaluation [...] peripheral vascular disease, who is referred to me for evaluation status-post left common femoral endarterectomy, [...] and left external iliac artery angioplasty with me on 09/11/2019. 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 PVD (peripheral vascular disease) (HCC) 02/06/2018 PVD (peripheral vascular disease) (HCC) Urinary retention Past Surgical History: Procedure Laterality Date ARTERY SURGERY Left 09/11/2019 Procedure: ENDARTERECTOMY FEMORAL; Surgeon: Osmin Garber MD; Location: [facility] MAIN OR CAROTID ENDARTERECTOMY Right CATARACT REMOVAL WITH IMPLANT Bilateral 03/30/10 and 04/27/10 CORONARY ANGIOPLASTY without stent [facility] Approx [id number] FEMUR FRACTURE SURGERY Right 12/19/2016 Procedure: ORIF IM RODDING FEMORAL ANTEGRADE; Surgeon: Lambert Mancuso MD; Location: [facility] MAIN OR FEMUR FRACTURE SURGERY Left 12/19/2016 Procedure: ORIF IM RODDING FEMORAL TROCHANTERIC NAIL; Surgeon: Lambert Mancuso MD; Locati on: [facility] MAIN OR Heart/ Arrhythmia ablation Right femoral to below knee popliteal reverse saphenus vein graft 12/01/2013 Right common femoral endarterectomy with Vascu-Guard patch angioplasty, Right external mk ac stent angioplasty 7x29 mm, Angiography, Harvesting right greater saphenous vein, Dual - l umen on Q pain pump placement. [facility] - Dr. Delaney Right thigh biopsy 10/24/2011 nonspecific chronic dermatitis Ultrasound guided access, right common femoral artery 11/30/2013 Right iliac angiography, Right femoral angiography with runoff. [facility] - Dr. Delaney Social History Tobacco Use [...] from left iliac stents, and external iliac, ENGINEERING AID, and PFA en darterectomy for LLE CLI. [...] Mccall 09/30/19. Osmin Garber MD Vascular Surgery docubeba oswald in this encounter Plan of Treatment +--------+---------+ + + + | Date | Type | Specialty | Care Team | Description | +--------+---------+ + + + | 08/04/ | Office | Cardiology | Anusha Lomax | | | 2020 | Visit | | [address] | | | | | | [address] | | | | | | [place] [address] | | | | | | [phone] | | | | | | | | +--------+---------+ + + + documented as of this encounter Visit Diagnoses + + | Diagnosis | + + | Critical limb ischemia with history of revascularization of same extremity - Primary | + + documented in this encounter
--- OUTSIDE RECORDS SUMMARY | ~2020-02-23 | XMS | Encounter Summary ---
Demographics + + + | Address | [address] | | | [place] [address] | + + + | Home Phone | | + + + | Preferred Language | Unknown | + + + | Marital Status | | + + + | Sabianism Affiliation | Unknown | + + + [...] [place] | | | | | [address] | | + + + + + Care Team Providers + +------+ + | Care Customer Support Coordinator Name | Role | Phone | + +------+ + | Carlos Alberto Galeas MD | PCP | | + +------+ + Encounter Details +--------+ + + + + | Date | Type | Department | Care Team | Description | +--------+ + + + + | 01/07/ | Hospital | 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
--- OUTSIDE RECORDS SUMMARY | ~2020-02-23 | XMS | Encounter Summary ---
Demographics + + + | Address | [address] | | | [place] [address] | + + + | Home Phone [...] [place] | | | | | [address] | | + + + + + Care Team Providers + +------+ + | Care Shellfish Weigher Name | Role | Phone | + [...] + + | 12/18/ | Hospital | [facility] | Anisha Ku MD | Atrial flutter, | | 2017 - | Encounter | [facility] | [address] | unspecified type | | | | [address] [place] | [place] | ([facility]); Anticoagulant | | 12/31/ | | [place] [address] | [id number] | long-term use; | | 2017 | | [phone] | | Closed fracture of | | | | | Gamal Serrano MD | neck of left femur, | | | | | [address] | initial encounter | | | | | [place], [place] | ([facility]); Acute | | | | | [address] | diastolic heart | | | | | | failure ([facility]); Acute | | | | | Perfecto Mancuso MD | respiratory failure | | | | | [address] | with hypoxia ([facility]); | | | | | [place], [place] | Atrial flutter with | | | | | [address] | rapid ventricular | | | | | [phone] | response ([facility]); | | | | | | Delirium; Elevated | | | | | Radha Hoyt MD | INR; Closed fracture | | | | | [address] | of neck of right | | | | | [place], [place] | femur, initial | | | | | [address] | encounter ([facility]); | | | | | | [...] (COLACE) capsule 100 mg 2 TIMES DAILY [place] BR[place] Signed and Held Signed [...] 30 mL EVERY 4 HOURS PRN LAW BURSH Signed and Held Signed and Held bisacodyl (DULCOLAX) suppository 10 mg DAILY PRN LAW BRUSH Studies With Pending Results: None Greater than 30 minutes were spent on discharge and coordination of post-hospital care. Electronically signed by: Radha Hoyt MD, 12/31/2016 15:39 [facility] documented in this enc ounter Medications at [...] Hawthorne MD - 12/20 11:40 AM PDT [facility] Patient: Dora Arellano : 1930: Age: 86 y.o. MedRec: [id number] PCP: Taiwo Lee MD Admission date: 12/18/2016 [...] 100 mg 100 mg Oral BID PRN Gmaal Serrano MD 100 m g at 12/26/16 0908 heparin 5,000 units/mL injection 5,000 Units 5,000 Units Subcutaneous 2 times per day Radha Hoyt MD 5,000 Units at 12/30/16 0936 metoprolol tartrate (LOPRESSOR) tablet 50 mg 50 mg Oral BID Rahda Hoyt MD 50 mg at 12/30/16 0937 [...] reorientation *Anticipate discharge to inpatient rehab versus group home facility tomorrow. DVT Prophylaxis SCD's while in bed Code Status DNR/DNI. Total time of approximately 35 minutes was spent with the patient and/or patient's family, and/or on the patient's floor/unit, of which more than 50% was spent counseling and/or coord ination the patient's care as outlined above. Radha Hoyt 12/30/2016 11:41 [facility] Radha Hawthorne MD - 12/29/2016 4:14 PM PDTFormatting of this note might be di fferent from the original. [facility] Patient: Dora Arellano : 1930: Age: 86 y.o. MedRec: [id number] PCP: Taiwo Lee MD Admission date: 12/18/2016 [...] as outlined above. Radha Hoyt 12/29/2016 16:14 [facility] Valeria Bush RN - 12/28/2016 6:20 [...] might be different from t he original. [facility] Patient: Dora Arellano : 1930: Age: 86 y.o. MedRec: [id number] PCP: Taiwo Lee MD Admission date: 12/18/2016 [...] Crossmatch Result Value Ref Range Product Code J1510U15 UNIT # [id number] UNIT ABO O UNIT RH POS CROSSMATCH INTERP Compatible Unit Status Returned Blood Product ABORh OPOS Blood Product Expiration Date and Time Product Blood Type Barcode 5100 Product Code C4556R51 UNIT # [id number] UNIT ABO O UNIT RH POS CROSSMATCH [...] as outlined above. Radha Hoyt 12/28/2016 15:06 [facility] Radha Hawthorne MD - 12/27/2016 4:44 PM PDTFormatting of this note might be di fferent from the original. [facility] Patient: Dora Arellano : 1930: Age: 86 y.o. MedRec: [id number] PCP: Taiwo Lee MD Admission date: 12/18/2016 [...] injection 2 mg 2 mg Intercatheter PRN Vrnadine Hendrix MD 2 mg at 12/25/16 1303 [...] as outlined above. 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 Patient is [...] 1.01). 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 Warfarin education received No; MINE DEPUTY Will monitor daily Warfarin Dosing Nomogram Warfarin Dosing Expectations Per P&T-approved Electronically signed by: Ora Aranda [facility] 12/27/2016 6:49 adha Hoyt MD - 12/26/2016 1:46 PM PDT [facility] Patient: Dora Arellano : 1930: Age: 86 y.o. MedRec: [id number] PCP: Taiwo Lee MD Admission date: 12/18/2016 [...] Plasma Result Value Ref Range Product Code G7913Q22 UNIT # [id number] UNIT ABO O UNIT RH POS Unit Status Transfused Blood Product ABORh OPOS Blood Product Expiration Date and Time Product Blood Type Barcode 5100 Product Code O3036H02 UNIT # [id number] UNIT ABO O UNIT RH POS Unit [...] are maintained. Iliofemoral vascular calcification is present. [place] project lat eral to the hip and [...] as outlined above. Radha Hoyt 12/26/2016 13:46 [facility] Joao Gaviria, PharmD - 12/26/2016 12:06 PM PDTFormatting of this note might b e different from the original. WARFARIN PER PHARMACY PROTOCOL: CURRENTLY HOLDING WARFARIN (High INR) Subjective/Objective: Dora Arellano is a 86 y.o. male admitted on 12/18/2016 for orthopedic surgery secondar y to femoral fracture. 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 Patient is [...] Hct in am. Warfarin education received No; MINE DEPUTY Will monitor daily Warfarin Dosing Nomogram Warfarin Dosing Expectations Per P&T-approved Electronically signed by: Joao Holcomb PharmD 12/26/2016 12:06 Idania Howard RRT - 12/26/2016 7:30 AM PDTVern declined the incentive deep breathing exercises this morning. I informed him that his left lung base is diminished with crackles, which means he needs to do it, clinically he needs to do it. Radha Hawthorne MD - 12/25/2016 4:55 PM PDTFormatting of th is note might be different from the original. [facility] Patient: Dora Arellano : 1930: Age: 86 y.o. MedRec: [id number] PCP: Taiwo Lee MD Admission date: 12/18/2016 [...] Crossmatch Result Value Ref Range Product Code K4183F54 UNIT # [id number] UNIT ABO O UNIT RH POS CROSSMATCH INTERP Compatible Unit Status Crossmatched Blood Product ABOR OPOS Blood Product Expiration Date and Time Product Blood Type Barcode 5100 Product Code Y5895W21 UNIT # [id number] UNIT ABO O UNIT RH POS CROSSMATCH INTERP Compatible Unit Status Transfused Blood Product ABOR OPOS Blood Product Expiration Date and Time Product Blood Type Barcode 5100 Red Blood Cells (PRBC) - Crossmatch Result Value Ref Range Product Code U1507N32 UNIT # [id number] UNIT ABO O UNIT RH NEG CROSSMATCH INTERP Compatible Unit Status Transfused Blood Product Dominic LUQUE Blood Product Expiration Date and Time [id number] Product Blood Type Barcode 8243 Basic Metabolic Panel Result Value Ref Range [...] Plasma Result Value Ref Range Product Code A1872E12 UNIT # [id number] UNIT ABO O UNIT RH POS Unit Status Issued Blood Product ABORh OPOS Blood Product Expiration Date and Time Product Blood Type Barcode 5100 Product Code U8689K61 UNIT # [id number] UNIT ABO O UNIT RH POS Unit Status Issued Blood Product ABORh OPOS Blood Product Expiration Date and Time [id number] Product Blood Type Barcode 5100 Xr Chest [...] Daily Tiffani Hendrix MD 100 mL/hr at 12/25/16 0921 [...] as outlined above. Radha Hoyt 12/25/2016 16:56 [facility] Perfecto Smith MD - 0 12/25/2016 [...] Crossmatch Result Value Ref Range Product Code D1730V06 UNIT # [id number] UNIT ABO O UNIT RH POS CROSSMATCH INTERP Compatible Unit Status Crossmatched Blood Product [facility] Blood Product Expiration Date and Time Product Blood Type Barcode 5100 Product Code D9569S24 UNIT # [id number] UNIT ABO O UNIT RH POS CROSSMATCH INTERP Compatible Unit Status Transfused Blood Product [facility] Blood Product Expiration Date and Time Product Blood Type Barcode 5100 Red Blood Cells (PRBC) - Crossmatch Result Value Ref Range Product Code T1045C63 UNIT # [id number] UNIT ABO O UNIT RH NEG CROSSMATCH INTERP Compatible Unit Status Transfused Blood Product [facility] Blood Product Expiration Date and Time Product Blood Type Barcode 9508 Basic Metabolic Panel Result Value Ref Range [...] a past medical history of Atrial flutter ([facility]) (); CVA (cerebral vascular accident) (HCC) 2012 (2012); 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 Patient is [...] it to MWF. Warfarin education received No; MINE DEPUTY Will monitor daily Warfarin Dosing Nomogram Warfarin [...] - - 106 19 94 % - 12/23/162029 90/60 37.9 C (100.2 F) - 106 [...] PH UA 5.0 5.0 - 8.0 Specific [place] 1.016 1.001 - 1.030 PROTEIN UA 30 mg/dL (A) Negative BLOOD UA Small (A) Negative GLUCOSE UA Negative Negative KETONES UA Negative Negative BILIRUBIN UA Negative Negative NITRITE UA Negative Negative LEUKOCYTES ESTERASE UA Negative Negative UROBILINOGEN UA Negative 0.2 mg/dL, 1.0 mg/dL, Negative Red Blood Cells (PRBC) - Crossmatch Result Value Ref Range Product Code W8334I31 UNIT # [id number] UNIT ABO O UNIT RH POS CROSSMATCH INTERP Compatible Unit Status Crossmatched Blood Product [facility] OP Blood Product Expiration Date and Time Product Blood Type Barcode 5100 Product Code Y3231F51 UNIT # [id number] UNIT ABO O UNIT RH POS CROSSMATCH INTERP Compatible Unit Status Issued Blood Product [facility] Blood Product Expiration Date and Time Product Blood Type Barcode 5100 Red Blood Cells (PRBC) - Crossmatch Result Value Ref Range Product Code Y8101S42 UNIT # [id number] UNIT ABO O UNIT RH NEG CROSSMATCH [...] team. Elsa Arzola PA-C DATE/TIME: 12/24/2016 11:27 ury Mathew RN - 12/24/2016 10:12 AM PDTThis note [...] note might be different from the original. [facility] Patient: Dora Arellano : 1930: Age: 86 y.o. MedRec: [id number] PCP: Taiwo Lee MD Admission date: 12/18/2016 [...] Crossmatch Result Value Ref Range Product Code L3327J04 UNIT # [id number] UNIT ABO O UNIT RH POS CROSSMATCH INTERP Compatible Unit Status Crossmatched Blood Product ABOR OPOS Blood Product Expiration Date and Time Product Blood Type Barcode 5100 Product Code I0868H42 UNIT # [id number] UNIT ABO O UNIT RH POS CROSSMATCH [...] as outlined above. Angel Hendrix 12/24/2016 9:52 [facility] Ora Medina, PharmD - 12/24/2016 6:57 AM PDT WARFARIN PER PHARMACY PROTOCOL: Subjective/Objective: Dora Arellano is a 86 y.o. male admitted on 12/18/2016 for orthopedic surgery secondar y to femoral fracture. 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 Patient is [...] it to MWF. Warfarin education received No; MINE DEPUTY Will monitor daily Warfarin Dosing Nomogram Warfarin [...] F) - 107 17 91 % - 12/22/162129 98/64 37.9 C (100.2 F) - 104 [...] Crossmatch Result Value Ref Range Product Code B6521W81 UNIT # [id number] UNIT ABO O UNIT RH POS CROSSMATCH INTERP Compatible Unit Status Transfused Blood Product ABOR OPOS Blood Product Expiration Date and Time Product Blood Type Barcode 5100 Product Code J6821E74 UNIT # [id number] UNIT ABO O UNIT RH POS CROSSMATCH [...] follow. Perfecto Mancuso MD DATE/TIME: 12/23/2016 18:17 APatel, MD Angel - 0 12/23/2016 9:04 AM PDT [facility] Patient: Dora Arellano : 1930: Age: 86 y.o. MedRec: [id number] PCP: Taiwo Lee MD Admission date: 12/18/2016 [...] Crossmatch Result Value Ref Range Product Code A8289G19 UNIT # [id number] UNIT ABO O UNIT RH POS CROSSMATCH INTERP Compatible Unit Status Transfused Blood Product ABORh OPOS Blood Product Expiration Date and Time Product Blood Type Barcode 5100 Product Code F6423O60 UNIT # [id number] UNIT ABO O UNIT RH POS CROSSMATCH [...] as outlined above. 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 Patient is receiving warfarin for thromboprophyla xis postop and also for atrial flutter. Surgery date: 12/19/2016 [x]Fx []THR []TKR Dr. Mancuso Goal INR: 2-3 Enoxaparin bridge: []disch [x]Inr>2 []none Drug Interactions:Amiodarone Sensitizers:Age Recent Labs Lab 12/23/16 0435 12/23/16 0434 12/22/16201312/22/16 0341 12/22/16 0340 12/21/16 034 HGB 7.7* -- 7.6* -- 7.8* [...] it to MWF. Warfarin education received No; MINE DEPUTY Will monitor daily Warfarin Dosing Nomogram Warfarin [...] Crossmatch Result Value Ref Range Product Code G9735W18 UNIT # [id number] UNIT ABO O UNIT RH POS CROSSMATCH INTERP Compatible Unit Status Transfused Blood Product ABORh OPOS Blood Product Expiration Date and Time Product Blood Type Barcode 5100 Product Code P2866Y54 UNIT # [id number] UNIT ABO O UNIT RH POS CROSSMATCH [...] amin MD - 12/22/2016 9:39 AM PDT [facility] Patient: Dora Arellano : 1930: Age: 86 y.o. MedRec: [id number] PCP: Taiwo Lee MD Admission date: 12/18/2016 [...] as outlined above. 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 Patient is [...] 2.07* 1.82* -- 1.67* Date 12/19 12/20 6/12/22 Hgb 10.9 8.7 9.1 7.8 Hct 33.4 [...] Hct in am Warfarin education received No; MINE DEPUTY Will monitor daily Warfarin Dosing Nomogram Warfarin [...] note might be different from the original. [facility] Patient: Dora Arellano : 1930: Age: 86 y.o. MedRec: [id number] PCP: Taiwo Lee MD Admission date: 12/18/2016 [...] Crossmatch Result Value Ref Range Product Code O1128U59 UNIT # [id number] UNIT ABO O UNIT RH POS CROSSMATCH INTERP Compatible Unit Status Transfused Blood Product [facility] Blood Product Expiration Date and Time Product Blood Type Barcode 5100 Product Code Z1764C77 UNIT # [id number] UNIT ABO O UNIT RH POS CROSSMATCH INTERP Compatible Unit Status Crossmatched Blood Product [facility] Blood Product Expiration Date and Time [...] as outlined above. Angel Hendrix 12/21/2016 9:35 [facility] adha Doherty, PharmD - 12/21/2016 8:55 AM PDT WARFARIN PER PHARMACY PROTOCOL: Subjective/Objective: Dora Arellano is a 86 y.o. male admitted on 12/18/2016 for orthopedic surgery secondar y to femoral fracture. 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 Patient is [...] Hct in am Warfarin education received No; MINE DEPUTY Will monitor daily Warfarin Dosing Nomogram Warfarin [...] Crossmatch Result Value Ref Range Product Code K5609W79 UNIT # [id number] UNIT ABO O UNIT RH POS CROSSMATCH INTERP Compatible Unit Status Transfused Blood Product ABOR OPOS Blood Product Expiration Date and Time Product Blood Type Barcode 5100 Product Code H5905G02 UNIT # [id number] UNIT ABO O UNIT RH POS CROSSMATCH INTERP Compatible Unit Status Crossmatched Blood Product [facility] OPOS Blood Product Expiration Date and Time [...] name, strength, and directions X Doctor's office: [facility] Medicine X Care Everywhere Vaccines up [...] performed and electronically signed by Don Siu, Tapeman 12/20/2016 19:03 Jordan Ball, Prasanna 12/20/2016 19:16 Valeria Bush RN - 12/20/2016 [...] (HCC) 2012 (2013); 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 Patient is [...] Hct in am Warfarin education received No; MINE DEPUTY Will monitor daily Warfarin Dosing Nomogram Warfarin Dosing Expectations Per P&T-approved Joao Holcomb, FeliD 12/20/2016 12:21 Angel Gallagher MD - 12/20/2016 10:16 AM PDT [facility] Patient: Dora Arellano : 1930: Age: 86 y.o. MedRec: [id number] PCP: Taiwo Lee MD Admission date: 12/18/2016 [...] Crossmatch Result Value Ref Range Product Code E0747O47 UNIT # [id number] UNIT ABO O UNIT RH POS CROSSMATCH INTERP Compatible Unit Status Crossmatched Blood Product ABORh OPOS Blood Product Expiration Date and Time Product Blood Type Barcode 5100 Product Code R1266E34 UNIT # [id number] UNIT ABO O UNIT RH POS CROSSMATCH INTERP Compatible Unit Status Crossmatched Blood Product [facility] OPOS Blood Product Expiration Date and Time [...] Plasma Result Value Ref Range Product Code K3399Z45 UNIT # [id number] UNIT ABO O UNIT RH POS Unit Status Transfused Blood Product [facility] OPOS Blood Product Expiration Date and Time Product Blood Type Barcode 5100 Product Code E3244P29 UNIT # [id number] UNIT ABO O UNIT RH POS Unit Status [facility]fused [facility] Product Expiration Date and Time Product Blood Type Barcode 5100 Product Code T0011D75 UNIT # [id number] UNIT ABO O UNIT RH POS Unit Status Transfused Blood Product ABORh OPOS Blood Product Expiration Date and Time Product Blood Type Barcode 5100 Product Code B9926M17 UNIT # [id number] UNIT ABO O UNIT RH POS Unit Status Crossmatched Blood Product ABORh OPOS Blood Product Expiration Date and Time Product Blood Type Barcode 5100 Xr Chest Pa Or Ap Result Date: 12/19/2016 External films for comparison only - no result from [place]. Xr Femur Left 2+vw Result Date: 12/19/2016 [...] for comparison only - no result from [place]. Xr Femur Right 2+vw Result Date: 12/19/2016 [...] for comparison only - no result from [place]. Fl C-arm Stats No Charge Result Date: [...] as outlined above. Angel Hendrix 12/20/2016 10:20 [facility] Addendum Right basilar pneumonia. Prefecto Smith MD - 12/20/2016 7:35 AM PDTFormatting [...] - 111 18 93 % - 12/19/16 194 124/69 - - 109 20 - - 12/19/16 194 126/75 - - 107 15 93 % - 12/19/16 193 121/59 36.1 C (97 F) Temporal 101 [...] Crossmatch Result Value Ref Range Product Code H0599L07 UNIT # [id number] UNIT ABO O UNIT RH POS CROSSMATCH INTERP Compatible Unit Status Crossmatched Blood Product ABORh OPOS Blood Product Expiration Date and Time [id number] Product Blood Type Barcode 5100 Product Code Z7632M60 UNIT # [id number] UNIT ABO O UNIT RH POS CROSSMATCH [...] Plasma Result Value Ref Range Product Code Q0784B66 UNIT # [id number] UNIT ABO O UNIT RH POS Unit Status Transfused Blood Product [facility] Blood Product Expiration Date and Time Product Blood Type Barcode 5100 Product Code T9668E45 UNIT # [id number] UNIT ABO O UNIT RH POS Unit Status Transfused Blood Product [facility] Blood Product Expiration Date and Time Product Blood Type Barcode 5100 Product Code W3544E21 UNIT # [id number] UNIT ABO O UNIT RH POS Unit Status Transfused Blood Product [facility] Blood Product Expiration Date and Time Product Blood Type Barcode 5100 Product Code P6125R49 UNIT # [id number] UNIT ABO O UNIT RH POS Unit Status Crossmatched Blood Product [facility] OPOS Blood Product Expiration Date and Time [id number] Product Blood Type Barcode 5100 Bilateral lower [...] HCT. 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 Patient is [...] Vit K; 1st dose initiated a t 2130 on 12/19 Plan: Initiate warfarin 3 mg po daily; same as home regimen INR, Hgb, Hct in am Warfarin education received No; MINE DEPUTY Will monitor daily Warfarin Dosing Nomogram Warfarin Dosing Expectations Per P&T-approved Jordan Ball PharmD 12/19/2016 20:53 Cheng Delvalle MD - 12/19/2016 12:23 PM PDTFormatting of this note might be different from the [facility] HOSPITALIST PROGRESS NOTE Patient: Dora Arellano : 1930: Age: 86 y.o. MedRec: [id number] PCP: Taiwo Lee MD Admission date: 12/18/2016 [...] m g daily. 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 Olivera at [facility]. He has a walker and a cane, usually uses his cane and lost his balance and fell backwards alycia satish both femurs and was seen in [facility] and sent to [place] after contacted Dr. Pricilla Pop He was noted have multiple skin tears. He denied that he passed out and denied any c hest pain or chest pressure. No headache. No hip pain but both femurs hurt, denied arthri tis. He has an incurable skin condition follows with company secretary Dr. Anuja Kaminski. He use s what sounds like Kenalog cream. He has a remote history of mycoses fungoides diagnosed in [facility] probably 15 or 20 years ago. His [...] the Assessment and Plan. Recent Labs Lab 12/19/16 0618 WBC 6.6 HGB 10.9* HCT 33.4* PLT 187 Recent Labs Lab 12/19/16 0617 PROTIME 28.5* INR 2.59* No results for input(s): PTT in the last 168 hours. Recent Labs Lab 12/19/16 0618 GLU 97 NA 139 K 4.5 CL [...] ECGs available Confirmed by ALINA DURBIN, ROMERO ([id number]) on 12/19/2016 6:58:41 AM Protime INR Result Value Ref Range Xr Chest Pa Or Ap Result Date: 12/19/2016 External films for comparison only - no result from [place]. Xr Femur Left 2+vw Result Date: 12/19/2016 External films for comparison only - no result from [place]. Xr Femur Right 2+vw Result Date: 12/19/2016 External films for comparison only - no result from [place]. ASSESSMENT and PLAN: Femur fracture, right as [...] as outlined above. Kamran Tom 12/19/2016 12:23 [facility] documented in t his encounter H&P Notes Perfecto Mancuso MD - 12/18/2016 10:21 PM PDT [facility] HISTORY AND PHYSICAL EXAMINATION Pt. Name/Age/: Dora Arellano 86 y.o. 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 Perfecto Mancuso MD DATE/TIME: 12/18/2016 22:21 eyer, Gamal Donaldson MD - 12/18/2016 9:43 PM PDT [place], [place] HOSPITALIST HISTORY & PHYSICAL Patient: Dora Arellano : 1930: Age: 86 y.o. MedRec: [id number] PCP: Taiwo Lee MD Admission date: 12/18/2016 Hospital day #: 0 Physician author: Gamal Serrano MD Today: 12/18/2016 CHIEF COMPLAINT: Sent from [facility] because of bilateral femur fractures after falling at home on carpet HISTORY OF PRESENT ILLNESS: This is a 86 y.o. male with a history of atrial fibrillation, however looks like atrial flu tter on the [facility] EKG, is on Coumadin. He used to take Lasix and potassium but h e's off both of those medicines, he says the Lasix made him too dizzy. He takes is atenolol 25 mg daily but if his heart rate is 100 or higher he'll take 50 mg daily. 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 Olivera at [facility]. Patient says he has a walker and a cane, usually uses his cane. Today he lost balance and fell backwards breaking both femurs and was seen in [facility] and sent to [place] and I spoke with Dr. Ryan Pop who will see him in consult as he'll need femur surgery. Jonny robbins also had multiple skin tears that were not addressed at [facility] but most of t hem were dressed by the time I saw patient here at [facility]. Thes e were skin tears on his left arm, right arm, right leg. Patient says he did not pass out, no chest pain or chest pressure. No headache. No hip pa in but both femurs hurt. Denies arthritis. He says he has an incurable skin condition follows with company secretary Dr. Anuja Kaminski. He uses what sounds like Kenalog cream. 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 Habits negative except for occasional beer He has the chronic body rash. He had angioplasty to a coronary artery 12-15 years ago, not a stent. He's had peripheral artery stent and surgery. He served in the [employer]. He has severe hearing loss, he says his is blind. 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 Historical Pro vider, atenolol (TENORMIN) 25 mg tablet Take 25 [...] for input(s): IRON, TIBC, PCTSAT, FERRITIN, TSH, [id number], FOLATE in the last 168 hours. Inflammatory [...] ABG No results for input(s): PHART, PO2ART, EBF6LZQ, DPM9XFA, BEART, [id number] in the last 168 h ours. No results for input(s): SPECSOURCE, PHPOCB, PCO2, PO2, HCO3, TCO2, BEART, RCOG4BKS in the last 168 hours. 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 Electronically signed by: Gaaml Serrano MD 12/18/2016 21:53 formerly [facility] (meyaddendum tdnorefesh nownorefresh) Portions of this chart may have been created with ARPU voice recognition software. Occasi onal wrong-word or [...] 86 y.o. male who was admitted to [facility] on 7 for Bilateral Femur Fractures r [...] so his called EMS. Patient lives in [place], [place] and was initially taken to [facility] in [place] but there was no on-call ortho so he was transferred to [place] for def initive treatment. On 12/19 he [...] flutter (HCC) 12/18/2016 CVA (cerebral vascular accident) ([facility]) 2012 2012 Mycosis fungoides (HCC) Dx [facility] approx 1999 Urinary retention PSx: Past Surgical History: Procedure Laterality Date CATARACT REMOVAL WITH IMPLANT Bilateral CORONARY ANGIOPLASTY without stent [facility] Approx [id number] Femoral artery bypass and Hx of stent FEMUR FRACTURE SURGERY Right 12/19/2016 Procedure: ORIF IM RODDING FEMORAL ANTEGRADE; Surgeon: Perfecto Mancuso MD; Location: [facility] OR FEMUR FRACTURE SURGERY Left 12/19/2016 Procedure: ORIF IM RODDING FEMORAL TROCHANTERIC NAIL; Surgeon: Perfecto Mancuso MD; Locati on: [facility] OR Right CEA Meds During [...] Narrative No narrative on file Lives in [place] with his in a 8STE home. is [...] for comparison only - no result from [place]. XR Femur Left 2+Vw Narrative External films for comparison only - no result from [place]. XR Chest PA or AP Narrative External films for comparison only - no result from [place]. 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 He is safe to continue therapies [...] of care, 24 hour availability for [place] medical issues, medication management, and therapeutic and [...] access. Potential Clinical Complications: fall, DVT, PNA, SC Signed: Law Brush MD DATE/TIME: 12/31/2016 12:37 Portions of this chart may have been created with ARPU voice recognition software. Occas ional wrong-word or sound-alike substitutions may have occurred due to the inherent li mitations of voice recognition software. Please read the chart carefully and recognize, usin g context, where these substitutions have occurred Azra Colon RN - 12/31/2016 7:59 AM PDTOrder received for acute rehab consult. Chart to be reviewed be fore making a recommendation on rehab services; IPR will follow progress. Thank you for this referral. Azra Payan RN CRRN 12/31/2016 7:59 Sheila Kelley RN - 12/21/2016 12:46 PM PDTFollowing INS [...] pt calls aprop for assistance lan of Care - Samira Daniels RDN - 12/31/2016 2:02 [...] Needs: (based on 80 kg) Kcal needs: 5986-9566 Kcals/day Protein needs:80-100 grams of protein/day Fluid goal:3481-9659 cc fluid per day Nutrition Plan of [...] in 2 days. Available as needed, ext [phone] Assessment: Diet Order: For your reference, current, [...] RN - 12/31/2016 1:54 PM PDTAssisted to bsc 2 person assist noted new skin tear on the inside of left arm mepilex drsg applied voided 200cc urine and had a bm pvr 343 aram darek back to bed via connor lift lan of Care - Law Rollins, PT - 12/31/2016 11:55 AM PDT Problem: [...] olerate working toward stairs per MD and pillowcase maker request to see if pt might be able to even tually perform stairs on his own. Blocked practice with sit to clothing pattern preparer II bars and step ups stariting with [...] on II bars via hands Level of [place]: maximal assist (25% patient effort), 2 person assist required Distance (feet): 2 Transfers bed to chair via stand pivot with 2 person assist for squat pivot tech for partial stand at max A x 2 Bed-Chair, Level of [place]: maximal assist (25% patient effort), 2 person assist requ ired Chair-Bed, Level of [place]: 2 person assist required, maximal assist (25% patient eff ort) Lli-Fwhpk-Nvb, Assistive Device: wheelchair Sit-Stand, Level of [place]: 2 person assist required Stand-Sit, Level of [place]: 2 person assist required, maximal assist (25% patient eff ort) Xkg-Moukg-Vun, Assistive Device: wheelchair (II bars) Safety Issues: sequencing ability decreased, weight-shifting ability decreased Impairments: pain, strength decreased, impaired balance, postural control impaired Bed Mobility 2 person mod assist drawsheet, however patient demonstrates antigravity movements with lowe r teres and upper extremities. Assistive Device: HOB elevated, draw sheet Scoot/Bridge, Level of [place]: moderate assist (50% patient effort), 2 person assist required, verbal cues required, tactile cues required Supine to Sit, Level of [place]: minimal assist (75% patient effort), verbal cues requ ired, 2 person assist required Sit to Supine, Level of [place]: moderate assist (50% patient effort), verbal cues [...] STG Status new at 12/31/2016 1155 STG [place] Level minimum assist (75% patient effort) at 12/31/2016 1155 Roll Left/Right Goal Flowsheet Row Most Recent Value STG Status new at 12/31/2016 1155 STG [place] Level minimum assist (75% patient effort) at 12/31/2016 1155 Scoot/Bridge Goal Flowsheet Row Most Recent Value STG Status progressing at 12/31/2016 1155 STG [place] Level stand by assist at 12/31/2016 1155 Oqjbwx-Rcr-Ukamkh Goal Flowsheet Row Most Recent Value STG Status progressing at 12/31/2016 1155 STG [place] Level stand by assist at 12/20/2016 0915 Xaqxfmiyp-Drl-Gglxqngin Goal Flowsheet Row Most Recent Value STG Status continued at 12/31/2016 1155 STG [place] Level stand by assist at 12/20/2016 0915 STG Assistive Device bed rails at 12/20/2016 0915 All Transfers Goal Flowsheet Row Most Recent Value STG Status progressing at 12/31/2016 1155 STG [place] Level stand by assist, 1 person + 1 person to manage equipment at 017 1155 STG Assistive Device other (see Comments) [Sanam Travis] at 12/25/2016 1159 STG Comments Using Sanam Travis at 12/25/2016 1159 Gait Goal Flowsheet Row Most Recent Value STG Status continued at 12/31/2016 1155 STG [place] Level stand by assist at 12/20/2016 0915 STG Assistive Device 2 wheeled walker (FWW) at 12/20/2016 0915 STG Distance (feet) 10 at 12/20/2016 0915 Stair Goal Flowsheet Row Most Recent Value STG Status revised, new at 12/31/2016 1155 STG [place] Level minimum assist (75% patient effort) at [...] PT, 12/31/2016 13:11 lan of Care - Darling Gomez RN - 12/31/2016 5:18 AM PDTProblem: Patient [...] between cares. lan of Care - Heri Bravo, WELDING OPERATOR - 12/30/2016 5:44 PM PDTFormatting of this [...] 4 15+ 5 lan of Care - Janet Woodard OT - 12/30/2016 4:59 [...] for pain. Geovany has been working with [employer] this shift. He has been oxygenating >92% on 1L [place]. CSM intact. Patient calls jaelyniat cecilia for needs. lan of Care - Catherine [...] ht for sit to stand with Sanam Thaddeus but was able to stand for up [...] sit <> stand x 3 with Sanam Chemady, 2P, mod assist, raised bed height, and cues. He stood for 15 sec, and 35 sec x 2 with seated rests between. *Also used pillow in front o f knee/luna pads for improved comfort and skin protection. Sit-Stand, Level of [place]: 2 person assist required, verbal cues required, moderate assist (50% patient effort) Stand-Sit, Level of [place]: 2 person assist required, verbal cues required, moderate assist (50% patient effort) Lmc-Wsmvh-Tvx, Assistive Device: other (see comments) (Sanam Travis) Safety Issues: weight-shifting ability decreased, sequencing ability decreased Impairments: pain, strength decreased, decreased flexibility, impaired balance, postural co ntrol impaired Bed Mobility 2 person mod assist drawsheet, however patient demonstrates antigravity movements with lowe r teres and upper extremities. Assistive Device: HOB elevated, draw sheet Scoot/Bridge, Level of [place]: moderate assist (50% patient effort), 2 person assist required, verbal cues required, tactile cues required Supine to Sit, Level of [place]: minimal assist (75% patient effort), verbal cues requ ired, 2 person assist required Sit to Supine, Level of [place]: moderate assist (50% patient effort), verbal cues [...] sit <> stand x 2 at Sanam Haydee (with 2-3 person assist, raised bed height, [...] Status not addressed at 12/30/2016 1459 STG [place] Level stand by assist at 12/20/2016 0915 Scoot/Bridge Goal Flowsheet Row Most Recent Value STG Status progressing at 12/30/2016 1459 STG [place] Level stand by assist at 12/20/2016 0915 Jhpwty-Lip-Lodwvl Goal Flowsheet Row Most Recent Value STG Status progressing at 12/30/2016 1459 STG [place] Level stand by assist at 12/20/2016 0915 Yjsibiovp-Moh-Qlsstclzs Goal Flowsheet Row Most Recent Value STG Status not addressed at 12/28/2016 1103 STG [place] Level stand by assist at 12/20/2016 0915 STG Assistive Device bed rails at 12/20/2016 0915 All Transfers Goal Flowsheet Row Most Recent Value STG Status progressing at 12/30/2016 1459 STG [place] Level stand by assist, 1 person + 1 person to manage equipment at 017 1450 STG Assistive Device other (see Comments) [Sanam Thaddeus] at 12/25/2016 1159 STG Comments Using Sanam Thaddeus at 12/25/2016 1159 Gait Goal Flowsheet Row Most Recent Value STG Status not addressed at 12/30/2016 1459 STG [place] Level stand by assist at 12/20/2016 0915 STG Assistive Device 2 wheeled walker (FWW) at 12/20/2016 0915 STG Distance (feet) 10 at 12/20/2016 0915 Stair Goal Flowsheet Row Most Recent Value STG Status discontinued at 12/25/2016 1159 STG [place] Level -- [.] at 12/25/2016 1159 STG [...] up to EOB, then stood with sanam travis and 2 persons with Mod A for safety. Laxmi cook was able to hold standing position for 15 seconds before returning to sit. Patient stoo d again and sat in chair with significant pain and Mod A x 2 persons. Patient's MD in to spe ak with him regarding placement options. Set patient up with call light and tray table of be To8to. Patient will require additional therapy for safety [...] Bed Mobility Supine to Sit, Level of [place]: minimal assist (75% patient effort), verbal cues req uired, 2 person assist required Sit to Supine, Level of [place]: moderate assist (50% patient effort), set up [...] with sig nificant pain. Bed-Chair, Level of [place]: 2 person assist required, moderate assist (50% patient ef fort) Amx-Qmajl-Yop, Assistive Device: other (see comments) Sit-Stand, Level of [place]: 2 person assist required, moderate assist (50% patient ef fort) Stand-Sit, Level of [place]: 2 person assist required, moderate assist (50% patient ef fort) Pdf-Exxxt-Wxs, Assistive Device: other (see comments) Safety Issues: sequencing ability decreased, weight-shifting ability decreased Impairments: pain, strength decreased, impaired balance, postural control impaired OT Goal Review Date Flowsheet Row Most Recent Value STG Review Date 12/25/16 at 12/29/2016 1600 UB Dressing Goal Flowsheet Row Most Recent Value STG Status continued, not addressed at 12/30/2016 1524 STG [place] Level supervised at 12/29/2016 1600 STG Adaptive Equipment none at 12/29/2016 1600 LB Dressing Goal Flowsheet Row Most Recent Value STG Status continued, not addressed at 12/30/2016 1524 STG [place] Level moderate assist (50% patient effort) at 12/29/2016 1600 STG Adaptive Equipment implant polisher, sock-aid at 12/29/2016 1600 Toilet Transfer Goal Flowsheet Row Most Recent Value STG Status continued, progressing at 12/30/2016 1524 STG [place] Level minimum assist (75% patient effort) at 12/29/2016 1600 STG Assistive Device commode (3 in 1), grab bars, 2 wheeled walker (FWW) at 12/29/2016 160 0 Electronically signed by: Sara Viera, Certified Tractor Operator Battery, 12/31/19 17 15:34 lan of Care - [...] l between cares. lan of Care - Law Dean, PT - 12/29/2016 3:40 PM PDT Problem: [...] all meals with two-person use per sanam hubbard. PT is also recommending inpatient rehab consult [...] at this time. Transfers Sit-Stand, Level of [place]: 2 person assist required, verbal cues required Stand-Sit, Level of [place]: 2 person assist required, verbal cues required Zde-Ulbak-Etx, Assistive Device: other (see comments) (Sanam Travis) Impairments: pain, strength decreased, decreased flexibility, impaired balance, postural co ntrol impaired Bed Mobility mod assist drawsheet, however patient demonstrates antigravity movements with lower teres and upper extremities. Assistive Device: HOB elevated, draw sheet Scoot/Bridge, Level of [place]: moderate assist (50% patient effort), 2 person assist required, verbal cues required, tactile cues required Supine to Sit, Level of [place]: moderate assist (50% patient effort), verbal cues req uired, tactile cues required, 2 person assist required Sit to Supine, Level of [place]: moderate assist (50% patient effort), verbal cues [...] in knees prevents movement at this time [facility] Turning over in bed: unable [...] steps with a railing: dependent/unable TOTAL - [facility] : 8 Unable / dependent = 1 A lot / modA = 2 A little / Warner = 3 None / independent = 4 Completed the [facility] Activity Measure for Post Acute Care (AM-PAC) "6 Clicks" [facility] Mobility Inpatient Short Form. This version of [...] 35.83 - CJ 21 - 28.97 - 22 - 20.91 - 23 - 11.2 - CI 24 - [...] Status not addressed at 12/28/2016 1103 STG [place] Level stand by assist at 12/20/2016 0915 Scoot/Bridge Goal Flowsheet Row Most Recent Value STG Status progressing at 12/28/2016 1103 STG [place] Level stand by assist at 12/20/2016 0915 Wssdss-Rew-Doeryt Goal Flowsheet Row Most Recent Value STG Status progressing at 12/28/2016 1103 STG [place] Level stand by assist at 12/20/2016 0915 Zyivxkjtm-Tgj-Jwskkvboi Goal Flowsheet Row Most Recent Value STG Status not addressed at 12/28/2016 1103 STG [place] Level stand by assist at 12/20/2016 0915 STG Assistive Device bed rails at 12/20/2016 0915 All Transfers Goal Flowsheet Row Most Recent Value STG Status not addressed at 12/28/2016 1103 STG [place] Level stand by assist, 1 person + 1 person to manage equipment at 017 1450 STG Assistive Device other (see Comments) [Sanam Stebrianda] at 12/25/2016 1159 STG Comments Using Sanam Thaddeus at 12/25/2016 1159 Gait Goal Flowsheet Row Most Recent Value STG Status not addressed at 12/28/2016 1103 STG [place] Level stand by assist at 12/20/2016 0915 STG Assistive Device 2 wheeled walker (FWW) at 12/20/2016 0915 STG Distance (feet) 10 at 12/20/2016 0915 Stair Goal Flowsheet Row Most Recent Value STG Status discontinued at 12/25/2016 1159 STG [place] Level -- [.] at 12/25/2016 1159 STG [...] 12/29/2016 17:56 lan of Care - D carlos, Yuliya M, OT - 12/29/2016 3:40 PM PDT Problem: [...] toileting with Sanam Steady Toileting, Level of [place]: dependent ( less than 25% patient effort), [...] HOB elevated, draw sheet Scoot/Bridge, Level of [place]: maximal assist (25% patient effort), 2 person assist r equired, verbal cues required, tactile cues required Supine to Sit, Level of [place]: verbal cues required, tactile cues required, moderate assist (50% patient effort) Sit to Supine, Level of [place]: moderate assist (50% patient effort), set up [...] down into si tting. Sit-Stand, Level of [place]: 2 person assist required, verbal cues required, moderate assist (50% patient effort) (Using Sanam Steady) Stand-Sit, Level of [place]: 2 person assist required, verbal cues required, moderate assist (50% patient effort) Dhn-Jrudu-Juj, Assistive Device: other (see comments) (Sanam Hubbard) Toilet, Level of [place]: moderate assist (50% patient effort), set up [...] continued, not addressed at 12/29/2016 1600 STG [place] Level supervised at 12/29/2016 1600 STG Adaptive Equipment none at 12/29/2016 1600 LB Dressing Goal Flowsheet Row Most Recent Value STG Status continued, not addressed at 12/29/2016 1600 STG [place] Level moderate assist (50% patient effort) at 12/29/2016 1600 STG Adaptive Equipment implant polisher, sock-aid at 12/29/2016 1600 Toilet Transfer Goal Flowsheet Row Most Recent Value STG Status continued, progressing at 12/29/2016 1600 STG [place] Level minimum assist (75% patient effort) at 12/29/2016 1600 STG Assistive Device commode (3 in 1), grab bars, 2 wheeled walker (FWW) at 12/29/2016 160 0 Electronically signed by: Yuliya Ross OT, 12/29/2016 17:06 eICU Note - Todd Pink RN - 12/29/2016 8:17 AM PDTAt approximately 0130 on 12/29/16 this RN found Geovany bru shing his teeth and preparing for the day. He believed it to be morning and asked why his wi fe was not here yet. I attempted to reorient Geovany and together we looked at 3 different [facility] k[facility] to confirm the time and [...] speak with his doctor about transport to [facility]. At 0740 Dr. Hoyt was at the [...] lan of Care - Juan J Cotto, WELDING OPERATOR - 12/29/2016 6:03 AM PDTProblem: Patient Care [...] Therapy Discharge Recommendations are: Recommended discharge disposition: group home facility, long term care social worker acute care facility Post discharge occupational therapy recommendation: (TBD) Equipment Recommendations: (TBD) Planned Interventions:ADL retraining, strengthening, transfer training Recommended Frequency: daily Patient Status/Goals: Reflects last filed data and may be from multiple contributors. ADLs Pt washed face seated EOB demonstrating good seated balance. However drop in BP after activ ity made out of bed activties unsafe. Grooming, Level of [place]: contact guard assist Grooming Assess/Train, Impairments: strength [...] HOB elevated, draw sheet Scoot/Bridge, Level of [place]: maximal assist (25% patient effort), 2 person assist r equired, verbal cues required, tactile cues required Supine to Sit, Level of [place]: maximal assist (25% patient effort), verbal cues requ ired, tactile cues required Sit to Supine, Level of [place]: maximal assist (25% patient effort), verbal cues requ ired, tactile cues required, 2 person assist required Safety Issues: decreased use of legs for bridging/pushing, impaired trunk control for bed m obility Impairments: decreased flexibility, strength decreased, impaired balance, pain Transfers Not able to attempt d/t pt drop in BP eliminating out of bed activties. Sit-Stand, Level of [place]: 2 person assist required, verbal cues required, moderate assist (50% patient effort) Stand-Sit, Level of [place]: 2 person assist required, verbal cues required [...] continued, not addressed at 12/28/2016 1636 STG [place] Level supervised at 12/28/2016 1636 STG Adaptive Equipment none at 12/28/2016 1636 LB Dressing Goal Flowsheet Row Most Recent Value STG Status continued, not addressed at 12/28/2016 1636 STG [place] Level moderate assist (50% patient effort) at 12/28/2016 1636 STG Adaptive Equipment implant polisher, sock-aid at 12/28/2016 1636 Toilet Transfer Goal Flowsheet Row Most Recent Value STG Status continued, not addressed at 12/28/2016 1636 STG [place] Level minimum assist (75% patient effort) at 12/28/2016 1636 STG Assistive Device commode (3 in 1), grab bars, 2 wheeled walker (FWW) at 12/27/2016 174 4 Electronically signed by: Cira Hurst OT, 12/28/2016 16:39 lan of Care - Fara duarte, Taiwo Hanley PT - 12/28/2016 11:03 AM PDTFormatting of [...] Therapy Discharge Recommendations are: Recommended discharge disposition: group home facility Post discharge physical therapy recommendation: minimum [...] out of bed activities. Sit-Stand, Level of [place]: 2 person assist required, verbal cues required Stand-Sit, Level of [place]: 2 person assist required, verbal cues required Cdw-Snhzb-Imz, Assistive Device: other (see comments) (Sanam Travis) Impairments: pain, strength decreased, decreased flexibility, impaired balance, postural co ntrol impaired Bed Mobility 2 person mod assist drawsheet, however patient demonstrates antigravity movements with lowe r teres and upper extremities. Assistive Device: HOB elevated, draw sheet Scoot/Bridge, Level of [place]: moderate assist (50% patient effort), 2 person assist required, verbal cues required, tactile cues required Supine to Sit, Level of [place]: moderate assist (50% patient effort), verbal cues req uired, tactile cues required, 2 person assist required Sit to Supine, Level of [place]: moderate assist (50% patient effort), verbal cues [...] Status not addressed at 12/28/2016 1103 STG [place] Level stand by assist at 12/20/2016 0915 Scoot/Bridge Goal Flowsheet Row Most Recent Value STG Status progressing at 12/28/2016 1103 STG [place] Level stand by assist at 12/20/2016 0915 Fhmowc-Zal-Zgvspc Goal Flowsheet Row Most Recent Value STG Status progressing at 12/28/2016 1103 STG [place] Level stand by assist at 12/20/2016 0915 Tidaayxxp-Zjr-Gnanbhvvx Goal Flowsheet Row Most Recent Value STG Status not addressed at 12/28/2016 1103 STG [place] Level stand by assist at 12/20/2016 0915 STG Assistive Device bed rails at 12/20/2016 0915 All Transfers Goal Flowsheet Row Most Recent Value STG Status not addressed at 12/28/2016 1103 STG [place] Level stand by assist, 1 person + 1 person to manage equipment at 017 1450 STG Assistive Device other (see Comments) [Sanam Stedy] at 12/25/2016 1159 STG Comments Using Sanam Thaddeus at 12/25/2016 1159 Gait Goal Flowsheet Row Most Recent Value STG Status not addressed at 12/28/2016 1103 STG [place] Level stand by assist at 12/20/2016 0915 STG Assistive Device 2 wheeled walker (FWW) at 12/20/2016 0915 STG Distance (feet) 10 at 12/20/2016 0915 Stair Goal Flowsheet Row Most Recent Value STG Status discontinued at 12/25/2016 1159 STG [place] Level -- [.] at 12/25/2016 1159 STG [...] at 12/26/2016 1402 Electronically signed by: Taiwo Mims PT, 12/28/2016 12:31 lan of Care - Cira Mclean, OT - 12/27/2016 5:46 PM PDTFormatting of [...] rotation. Pt engaged in standing to Sanam Stea dy c mod A in preperation for functional transfers. Pt stood for 10 seconds x3 trials. BP opped significant to 70/65. RN present and aware. Pt returned to supine in bed. Pt will bene fit from skilled OT services to increase ADL independence, activity tolerance, and functiona l mobility. Occupational Therapy Discharge Recommendations are: Recommended discharge disposition: group home facility, long term care social worker acute care facility Post discharge occupational therapy [...] draw sheet Supine to Sit, Level of [place]: 2 person assist required, verbal cues required Safety Issues: decreased use of legs for bridging/pushing, impaired trunk control for bed m obility Impairments: decreased flexibility, strength decreased, impaired balance Transfers Sanam travis in preperation for functional transfers, 3 trials x 10 seconds. Required mod A t o rise. Sit-Stand, Level of [place]: 2 person assist required, verbal cues required, moderate assist (50% patient effort) Stand-Sit, Level of [place]: 2 person assist required, verbal cues required [...] continued, not addressed at 12/27/2016 1744 STG [place] Level supervised at 12/27/2016 1744 STG Adaptive Equipment none at 12/27/2016 1744 LB Dressing Goal Flowsheet Row Most Recent Value STG Status continued, not addressed at 12/27/2016 1744 STG [place] Level moderate assist (50% patient effort) at 12/27/2016 1744 STG Adaptive Equipment implant polisher, sock-aid at 12/27/2016 1744 Toilet Transfer Goal Flowsheet Row Most Recent Value STG Status continued at 12/27/2016 1744 STG [place] Level minimum assist (75% patient effort) at 12/27/2016 1744 STG Assistive Device commode (3 in 1), grab bars, 2 wheeled walker (FWW) at 12/27/2016 174 4 Electronically signed by: Cira Hurst OT, 12/27/2016 17:45 lan of Care - Domenica Ji PT - 12/27/2016 2:50 PM PDT Problem: [...] nursing. Cotx between OT and PT. Pt kennteh tx well and demonstrated continued progress toward functional goals as evidenced by diminishing need for assist w/ sit>std transfer and increasing tolerance for wt bearing thru BLE's. Refer дмитрий ow for details of functional levels. He [...] Therapy Discharge Recommendations are: Recommended discharge disposition: group home facility Post discharge physical therapy recommendation: minimum [...] stand session was 10sec. Sit-Stand, Level of [place]: 2 person assist required, verbal cues required Stand-Sit, Level of [place]: 2 person assist required, verbal cues required Cdu-Fmtco-Fpz, Assistive Device: other (see comments) (Sanam Travis) Impairments: pain, strength decreased, decreased flexibility, impaired balance, postural co ntrol impaired Bed Mobility Continue to use drawsheet to assist pt to eob, returned to supine w/o draw sheet, dependent for trunk and legs Assistive Device: draw sheet Supine to Sit, Level of [place]: 2 person assist required, verbal cues required Sit to Supine, Level of [place]: (2-3 person assist w/o use of draw [...] Status not addressed at 12/27/2016 1450 STG [place] Level stand by assist at 12/20/2016 0915 Scoot/Bridge Goal Flowsheet Row Most Recent Value STG Status progressing at 12/27/2016 1450 STG [place] Level stand by assist at 12/20/2016 0915 Nccgki-Bcc-Bxntmy Goal Flowsheet Row Most Recent Value STG Status progressing at 12/27/2016 1450 STG [place] Level stand by assist at 12/20/2016 0915 Mlwhyqelb-Ocl-Obcyfduoj Goal Flowsheet Row Most Recent Value STG Status not addressed at 12/27/2016 1450 STG [place] Level stand by assist at 12/20/2016 0915 STG Assistive Device bed rails at 12/20/2016 0915 All Transfers Goal Flowsheet Row Most Recent Value STG Status met, revised at 12/27/2016 1450 STG [place] Level stand by assist, 1 person + 1 person to manage equipment at 017 1450 STG Assistive Device other (see Comments) [Sanam Travis] at 12/25/2016 1159 STG Comments Using Sanam Travis at 12/25/2016 1159 Gait Goal Flowsheet Row Most Recent Value STG Status not addressed at 12/27/2016 1450 STG [place] Level stand by assist at 12/20/2016 0915 STG Assistive Device 2 wheeled walker (FWW) at 12/20/2016 0915 STG Distance (feet) 10 at 12/20/2016 0915 Stair Goal Flowsheet Row Most Recent Value STG Status discontinued at 12/25/2016 1159 STG [place] Level -- [.] at 12/25/2016 1159 STG Assistive Device -- [.] at 12/25/2016 1159 STG Number of Stairs -- [.] at 12/25/2016 1159 Additional Goal #1 PT Flowsheet Row Most Recent Value STG Status progressing at 12/27/2016 1450 STG Pt will tolerate standing at Sanam Chemady x 1min w/ supervision only at 12/25/2016 [...] he thought it would. Therex with LUCILA grady this - pt stated he feels he is doing better and glad to be able to move more Occupational Therapy Discharge Recommendations are: Recommended discharge disposition: group home facility, senior care acute care facility Post discharge occupational therapy [...] continued, not addressed at 12/26/2016 1615 STG [place] Level supervised at 12/26/2016 1615 STG Adaptive Equipment none at 12/26/2016 1615 LB Dressing Goal Flowsheet Row Most Recent Value STG Status continued, not addressed at 12/26/2016 1615 STG [place] Level moderate assist (50% patient effort) at 12/26/2016 1615 STG Adaptive Equipment implant polisher, sock-aid at 12/26/2016 1615 Toilet Transfer Goal Flowsheet Row Most Recent Value STG Status continued at 12/26/2016 1615 STG [place] Level minimum assist (75% patient effort) at 12/26/2016 1615 STG Assistive Device commode (3 in 1), grab bars, 2 wheeled walker (FWW) at 12/26/2016 161 5 Electronically signed by: Kasey Jama OT, 12/26/2016 16:27 lan of [facility] - Maldonado Catherine stokes, PT - 12/26/2016 1:50 PM [...] PT by nursing. Treatment completed in conjunction [facility] OT. Pt kenneth tx well [...] Therapy Discharge Recommendations are: Recommended discharge disposition: group home facility Post discharge physical therapy recommendation: minimum [...] steps at this time. Transfers Used Sanam Beardy and raised bed height to facilitate ease of sit <> stand transfer. Instruct ed pt to pull self up at the same time that PT and OT assisted with drawsheet under buttocks . Pt only able to achieve partial stand; stood jerri. 15 sec during both trials and required s eated rest between. Sit-Stand, Level of [place]: 2 person assist required, verbal cues required Stand-Sit, Level of [place]: 2 person assist required, verbal cues required Diq-Ircfx-Hjp, Assistive Device: other (see comments) (Sanam Travis) Impairments: pain, strength decreased, decreased flexibility, impaired balance, postural c ontrol impaired Bed Mobility Used HOB elevated and draw sheet to assist pt with sit <> supine and scooting in bed. Supine to Sit, Level of [place]: 2 person assist required, verbal cues required (2-3 p erson assist for comfort) Sit to Supine, Level of [place]: 2 person assist required, verbal cues required [...] Status not addressed at 12/25/2016 1159 STG [place] Level stand by assist at 12/20/2016 0915 Scoot/Bridge Goal Flowsheet Row Most Recent Value STG Status progressing at 12/26/2016 1402 STG [place] Level stand by assist at 12/20/2016 0915 Bmfxvj-Bnt-Fjiyjz Goal Flowsheet Row Most Recent Value STG Status progressing at 12/26/2016 1402 STG [place] Level stand by assist at 12/20/2016 0915 Fvoetpyfw-Bvu-Ikorrvldq Goal Flowsheet Row Most Recent Value STG Status not addressed at 12/26/2016 1402 STG [place] Level stand by assist at 12/20/2016 0915 STG Assistive Device bed rails at 12/20/2016 0915 All Transfers Goal Flowsheet Row Most Recent Value STG Status progressing at 12/26/2016 1402 STG [place] Level moderate assist (50% patient effort), 2 person assist required at 0 12/25/2016 1159 STG Assistive Device other (see Comments) [Sanam Stedy] at 12/25/2016 1159 STG Comments Using Sanam Stedy at 12/25/2016 1159 Gait Goal Flowsheet Row Most Recent Value STG Status not addressed at 12/26/2016 1402 STG [place] Level stand by assist at 12/20/2016 0915 STG Assistive Device 2 wheeled walker (FWW) at 12/20/2016 0915 STG Distance (feet) 10 at 12/20/2016 0915 Stair Goal Flowsheet Row Most Recent Value STG Status discontinued at 12/25/2016 1159 STG [place] Level -- [.] at 12/25/2016 1159 STG [...] 12/26/2016 14:22 lan of Care - Francisco Parker, ELDON - 12/26/2016 6:39 AM PDTProblem: Patient Care [...] not like IS. [facility] Melony Winchester RN - 12/26/2016 5:06 AM PDTProblem: Patient [...] 25.2, INR 2.22. lan of Care - Str uck, Kasey Winchester OT - 12/25/2016 4:37 PM PDT Problem: [...] without his BP dropping. Engag ed in UE therex with yellow theraband 15 reps each exercise [...] Therapy Discharge Recommendations are: Recommended discharge disposition: group home facility, senior care acute care facility Post discharge occupational therapy [...] continued, not addressed at 12/25/2016 1606 STG [place] Level supervised at 12/25/2016 1606 STG Adaptive Equipment none at 12/25/2016 1606 LB Dressing Goal Flowsheet Row Most Recent Value STG Status continued, not addressed at 12/25/2016 1606 STG [place] Level moderate assist (50% patient effort) at 12/25/2016 1606 STG Adaptive Equipment implant polisher, sock-aid at 12/25/2016 1606 Toilet Transfer Goal Flowsheet Row Most Recent Value STG Status continued at 12/25/2016 1606 STG [place] Level minimum assist (75% patient effort) at 12/25/2016 1606 STG Assistive Device commode (3 in 1), grab bars, 2 wheeled walker (FWW) at 12/25/2016 160 6 Electronically signed by: Kasey Jama OT, 12/25/2016 16:36 Goal Evaluation: lan of Care - Hyacinth Liriano, WELDING OPERATOR - 12/25/2016 4:15 PM PDTFormatting of this note might be different from th e original. Problem: Patient Care Overview (Adult) Goal: [...] - 12/25/2016 11:22 AM PDTRe-faxed referral to [facility] Electronically signed by: Zandra Scales 12/25/2016 11:22 lan of [facility] - NachoRaisa K, PT - 12/25/2016 11:05 AM PDTFormatting of [...] Therapy Discharge Recommendations are: Recommended discharge disposition: group home facility Post discharge physical therapy recommendation: minimum [...] Status not addressed at 12/25/2016 1159 STG [place] Level stand by assist at 12/20/2016 0915 Scoot/Bridge Goal Flowsheet Row Most Recent Value STG Status not addressed at 12/25/2016 1159 STG [place] Level stand by assist at 12/20/2016 0915 Bkvhgd-Sih-Hjfoxq Goal Flowsheet Row Most Recent Value STG Status not addressed at 12/25/2016 1159 STG [place] Level stand by assist at 12/20/2016 0915 Lteyvrznw-Mvu-Jwwamwoyr Goal Flowsheet Row Most Recent Value STG Status not addressed at 12/25/2016 1159 STG [place] Level stand by assist at 12/20/2016 0915 STG Assistive Device bed rails at 12/20/2016 0915 All Transfers Goal Flowsheet Row Most Recent Value STG Status not addressed, revised at 12/25/2016 1159 STG [place] Level moderate assist (50% patient effort), 2 person assist required at 0 12/25/2016 1159 STG Assistive Device other (see Comments) [Sanam Stedy] at 12/25/2016 1159 STG Comments Using Sanam Stedy at 12/25/2016 1159 Gait Goal Flowsheet Row Most Recent Value STG Status not addressed at 12/25/2016 1159 STG [place] Level stand by assist at 12/20/2016 0915 [...] incisions without s/s of infection lan of [place] - Francisco Llanes RRT - 12/25/2016 5:42 [...] did his PEP device well. lan of Kasey Holguin OT - 12/24/2016 8:40 PM PDTProblem: Patient [...] Kasey Jama OT, 12/24/2016 20:39 lan of Care - Domenica Vela, PT - 12/24/2016 1:17 [...] - 12/24/2016 10:52 AM PDTFaxed referral to [facility]. CM will need to follow up with [...] PEP therapy. Outcome: Improving Goal Evaluation: Mr. Chamberlain temp has gone down to 37.2C. His dressings were changed last night. His wounds appear to look better. Samy intact. Still on levophed drip at 5. Pain was well controlle d allowing for restful sleep. Hgb decreased to 7.2 (night Hospitalist notified). [facility] to decided on whether to transfuse. lan of [facility] - Anitra Montoya RRT - 12/24/2016 4:50 AM PDTProblem: Patient Care [...] Montoya RRT 12/24/2016 4 :50 [facility] - 12/23/2016 4:56 PM PDTProblem: Patient [...] with IV fentanyl. All dressings changed at [facility] t once d/t serous drainage, particularly in lower extremities. Skin tears looking improved o sarahy the past few days. Full bed bath given. BLE edema R > L. H/H 7.7/23.3, continuing to mo nitor. Urine output minimal but adequate via velarde. No therapies today per MD. Patient levi g better day today than yesterday w/ regard to BP and pain control, so will attempt tomorrow . Family at bedside for a couple of hours today, and will return again tomorrow. Patient sta lizzie he is "feeling a little better". lan of Care - Domenica Lebron, PT - 12/23/2016 10:28 AM PDTProblem: Patient [...] lan of Care - Anitra De La Vega, WELDING OPERATOR - 12/23/2016 3:36 AM PDT Problem: Patient [...] 3 12-14 4 15+ 5 lan of [facility] - Anitra De La Vega RRT - [...] Anitra Montoya RRT 12/23/2016 3:34 lan of [facility] - Kathie Suero RN - 12/22/2016 7:49 PM PDTProblem: Patient [...] to monitor and attempt mobilization. lan of Kasey Holguin OT - 12/22/2016 3:15 PM PDTProblem: Patient [...] therapy. Missed Visit Patient Information Patient Name: oDra Arellano Date of : 1930 Age: 86 y.o. The patient was unable to be seen for today's scheduled visit due to RN stated pt was havin g medical issues and was not appropriate for therapy today- asked to hold therapies today. Plan: attempt to see tomorrow Electronically signed by: Kasey Jama OT, 12/22/2016 23:35 lan of Salena Mcbrdie RRT - 12/22/2016 1:20 PM PDTProblem: Patient Care [...] PEP therapy.coughs well upon command. lan of Care - Domenica Griffith, PT - 12/22/2016 11:53 [...] Anitra Montoya RRT 12/22/2016 4:47 lan of [facility] - [facility] Kathie new RN - 12/21/2016 6:32 PM PDTProblem: Patient [...] adequate. Improv ing appetite. Family home to [place] this afternoon and will be back tomorrow. [...] w/ agreement that pt needs to mobilize CADNACE as he is at risk for multiple complications associated w/ prolonged bed rest. Plan: Will coordinate w/ RN tomorrow for transfer OOB to chair w/ overhead lift and possibl e attempt to stand from chair, likely using Sanam Thaddeus for assist. Electronically signed by: Domenica Griffith, PT, 12/21/2016 16:12 lan of Care - Zenia Ch, WELDING OPERATOR - 12/21/2016 3:51 PM PDTFormatting of this [...] 3 12-14 4 15+ 5 lan of Kasey Holguin, OT - 12/21/2016 2:35 PM PDT Problem: [...] Therapy Discharge Recommendations are: Recommended discharge disposition: group home facility, long term care social worker acute care facility Post discharge occupational therapy [...] STG Status new at 12/21/2016 1412 STG [place] Level supervised at 12/21/2016 1412 STG Adaptive Equipment none at 12/21/2016 1412 LB Dressing Goal Flowsheet Row Most Recent Value STG Status new at 12/21/2016 1412 STG [place] Level moderate assist (50% patient effort) at 12/21/2016 1412 STG Adaptive Equipment implant polisher, sock-aid at 12/21/2016 1412 Toilet Transfer Goal Flowsheet Row Most Recent Value STG Status new at 12/21/2016 1412 STG [place] Level minimum assist (75% patient effort) at 12/21/2016 1412 STG Assistive Device commode (3 in 1), grab bars, 2 wheeled walker (FWW) at 12/21/2016 141 2 Electronically signed by: Kasey Jama OT, 12/21/2016 14:33 Goal Evaluation: lan of Care - Coff man, Domenica Winchester, PT - 12/21/2016 9:25 AM PDT Problem: [...] Therapy Discharge Recommendations are: Recommended discharge disposition: group home facility Post discharge physical therapy recommendation: minimum [...] STG Status continued/progressing at 12/21/2016 1109 STG [place] Level stand by assist at 12/20/2016 0915 Scoot/Bridge Goal Flowsheet Row Most Recent Value STG Status continued/progressing at 12/21/2016 1109 STG [place] Level stand by assist at 12/20/2016 0915 Sqiibb-Hay-Bkwbnx Goal Flowsheet Row Most Recent Value STG Status continued/progressing at 12/21/2016 1109 STG [place] Level stand by assist at 12/20/2016 0915 Mpegobvze-Nxr-Euyvtdgen Goal Flowsheet Row Most Recent Value STG Status continued/progressing at 12/21/2016 1109 STG [place] Level stand by assist at 12/20/2016 0915 STG Assistive Device bed rails at 12/20/2016 0915 All Transfers Goal Flowsheet Row Most Recent Value STG Status not addressed at 12/21/2016 1109 STG [place] Level stand by assist at 12/20/2016 0915 STG Assistive Device 2 wheeled walker (FWW) at 12/20/2016 0915 Gait Goal Flowsheet Row Most Recent Value STG Status not addressed at 12/21/2016 1109 STG [place] Level stand by assist at 12/20/2016 0915 STG Assistive Device 2 wheeled walker (FWW) at 12/20/2016 0915 STG Distance (feet) 10 at 12/20/2016 0915 Stair Goal Flowsheet Row Most Recent Value STG Status not addressed at 12/21/2016 1109 STG [place] Level minimum assist (75% patient effort) at 12/20/2016 0915 STG Assistive Device 2 rails at 12/20/2016 0915 STG Number of Stairs 8 at 12/20/2016 0915 Electronically signed by: Domenica Griffith, PT, 12/21/2016 11:22 lan of Casys Elizalde, SANDY - 12/21/2016 5:47 AM PDTProblem: Patient Care [...] pulses present tmax 37.8 overnight lan of Jeramy Knapp RRT - 12/20/2016 7:09 PM PDTProblem: Patient [...] % on 2.5liters/minute nasal cannula. lan of Care - Cathleen Ch RN - 12/20/2016 4:18 PM PDTThis CM spoke with patient Dora Arellano about his home. I explained that he may be a candidate for INPT Rehab at [facility] rather that going to [facility]. However, I needed to know more information about his home. The concern would be the 18 steps to the upstairs in the home. Mr Arellano states that they do have bedrooms and bathrooms on the main level of the home and he would NOT have to go to [facility] upstairs. Electronically signed by: Cathleen Ibrahim, SANDY 12/20/2016 16:27 lan of Care - Juan J Berrios Chaplain - 12/20/2016 9:50 AM PDT Spiritual Care Dora Arellano is a 86 y.o. male who is admitted for Bilateral Femur Fractures r midshaft femur fracture L femur fx. Spiritual Evaluation: Mandaeism, not active in a spiritism Spiritual Intervention: Pastoral presence, active listening, prayer Spiritual Outcomes: Patient appreciates 's visit. Spiritual Goals / Follow-up: Will see the patient as requested. If there are any other spiritual care issues that arise, please contact financial institution branch manager. lan of Care - Law Rollins Ryan, PT - 12/20/2016 9:15 AM PDT Problem: [...] I fall a lot more. Pt deneen l benefit from skilled PT for all the [...] are: Recommended discharge disposition: inpatient rehabilitation facility, group home faci lity (vs) Post discharge physical therapy [...] STG Status new at 12/20/2016 0915 STG [place] Level stand by assist at 12/20/2016 0915 Scoot/Bridge Goal Flowsheet Row Most Recent Value STG Status new at 12/20/2016 0915 STG [place] Level stand by assist at 12/20/2016 0915 Qcckjq-Cmd-Qorxlb Goal Flowsheet Row Most Recent Value STG Status new at 12/20/2016 0915 STG [place] Level stand by assist at 12/20/2016 0915 Ocxdxucyv-Apg-Wlkvncnjq Goal Flowsheet Row Most Recent Value STG Status new at 12/20/2016 0915 STG [place] Level stand by assist at 12/20/2016 0915 STG Assistive Device bed rails at 12/20/2016 0915 All Transfers Goal Flowsheet Row Most Recent Value STG Status new at 12/20/2016 0915 STG [place] Level stand by assist at 12/20/2016 0915 STG Assistive Device 2 wheeled walker (FWW) at 12/20/2016 0915 Gait Goal Flowsheet Row Most Recent Value STG Status new at 12/20/2016 0915 STG [place] Level stand by assist at 12/20/2016 0915 STG Assistive Device 2 wheeled walker (FWW) at 12/20/2016 0915 STG Distance (feet) 10 at 12/20/2016 0915 Stair Goal Flowsheet Row Most Recent Value STG Status new at 12/20/2016 0915 STG [place] Level minimum assist (75% patient effort) at 12/20/2016 0915 STG Assistive Device 2 rails at 12/20/2016 0915 STG Number of Stairs 8 at 12/20/2016 0915 Electronically signed by: Law Rollins, PT, 12/20/2016 12:21 lan of Care - Rhett Mcgraw RN - 12/20/2016 5:25 AM PDTProblem: Patient [...] dressing ch anged to right forearm. p Simon - Perfecto Mancuso MD - 12/19/2016 8:01 PM PDT [facility] [address] [facility] [id number] OPERATIVE REPORT PERFECTO MANCUSO MD Patient: DORA ARELLANO Admitting: GAMAL SERRANO MR #: [id number] LOC: PT TYPE: Adm Date: 12/18/2016 : 1930 DATE OF SERVICE: 12/19/2016. INDICATIONS: The patient is an 86-year-old male in fairly poor health who fell yesterday in [place] at home suffering fractures of bilateral femurs. He was transferred here to [facility] for definitive orthopedic treatment since apparently they did not have orthopedic coverage in [place] yesterday. The patient was admitted to the [...] peritrochanteric femur fracture. SURGEON: Perfecto Mancuso MD. WORKERS COMPENSATION CLAIMS SUPERVISOR: None. ANESTHESIA: General, started by Valente Munoz [...] the hardware position. All incisions were copy editor iously lavaged. The fascia at the insertion site was closed with [id number]-ue-dqhvf stitches of 0 Vicryl. The subcutaneous layers [...] lavaged. The deep fascia was closed with bhftbw-ct-kmtdd stitches of 0 Vicryl. The subcutaneous layer [...] Transcribed on 12/20/2016 05:23:[birth year] by so job# [id number] Confirmation #: [id number] cc: TAIWO LEE MD P DTBrief Op Note - Perfecto Mancuso MD - 12/19/2016 7:36 PM PDT Brief Operative Note Dora Arellano 86 y.o. male 1930 [id number] Proc. Date 12/19/2016 Preop Dx r midshaft femur fracture L femur fx Postop Dx same Procedure ORIF IM RODDING FEMORAL ANTEGRADE (Right), ORIF IM RODDING FEMORAL TROCHANTERIC NAIL (Left) Anesthesia general Surgeon Perfecto Mancuso MD - Primary Can Capper EBL 250 mL Findings Findings consistent with scheduled procedure. No other abnormalities found. Complications none Specimens * No specimens in log * Drains None Electronically signed by: Perfecto Mancuso MD 12/19/2016 19:36 [facility]ron[facility] signed by Perfecto Mancuso MD at 12/19 8:02 PM PDTPlan of Care - Jenni Jasso RN - 12/19/2016 6:13 [...] pt alert and oriented. Oxycodone given for 10/ pain. Velarde draining clear yellow urine. Down [...] is 94% on room air. lan of Maite Neri RN - 12/19/2016 11:39 AM PDTProblem: Discharge Planning Goal: Patient will be discharged in a safe manner Outcome: Improving This CM met with patient to discuss his d/c plan. He was transferred here by ground ambulance from [facility] after his fall at home and wa ed for surgery. He lives with his independently in [place], [place]. He does have canes around the house and also a FWW at home already. 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 Otherwise, she is self sufficient at home. Currently, his 2 brothers are here visiting from [place] with their motorhome but will be abdon holguin soon. He does wish to rehab closer to home and knows where [facility] is, so this was nm s choice of rehab facilities, after choices were given. He signed the preference form and referral was sent via [facility], pending review. Signed form w as placed in ghost chart. This CM left message with SRIKANTH Garcia, who is covering for [employer], requesting a return call o n this [...] RN 12/19/2016 1 1:39 14:41 Jose, from [facility] called this CM back and stated he could not get to the [facility] S NF referral so manually faxed the H&P, face sheet, and med list to him, letting him know bossman t patient is having surgery today. Fax transmission with confirmation placed in ghost chart. Electronically signed by: Maite Jeong RN 12/19/2016 14:43 16:00 This CM called Jose at [facility] and he reports that he has not seen any fax yet, so this time manually faxed it to his own fax # [phone].Electronically signed by: Maite blankenship RN 12/19/2016 16:00 17:30 Jose from [facility] called to let this CM know that they have accepted patient for r ehab and to call when patient will be discharged. Sticky note left for MD .Electronically si gned by: Maite Jeong RN 12/19/2016 17:41 lan of Care - Dhruv Stein RN - 12/19/2016 4:24 AM PDTProblem: Patient [...] and telfa. Velarde in place. lan of Care - Rubén vieira, Radha Zuh, WELDING OPERATOR - 12/19/2016 2:44 AM PDTProblem: Patient Care [...] | | | | | | Y[address]ES [address] | | | | | | [place] [address] | | | | | | [phone] | | | | | | | [...] | + +--------+ + + + | CARSON SAUNDERS STATS NO | Routin | 12/19/2016 | [...] + | [facility] | [address] | [place], [place] | [phone] | | [facility] | | [address] | | | - LABORATORY | | [...] | GLOMERULAR FILTRATION | mL/min/1.73m2 | [facility] | | | [place] | RATE,ESTIMATED | | MEDICAL | | | | mL/min/1.14f4Wodi than | | CENTER - | | [...] + | [facility] | [address] | [place] | [phone] | | [facility] | | [address] | | | - LABORATORY | | [...] + | [facility] | [address] | [place] | [phone] | | [facility] | | [address] | | | - LABORATORY | | [...] ST. | [address] | [place] | [phone] | | [facility] | | [address] | | | - LABORATORY | | [...] | | | | mmol/L | [facility] | | | | | | MEDICAL [...] | | | | | mg/dL | [facility] | | | | | | MEDICAL | | | | | | CENTER - | | | | | | LABORATORY | | + + + + + + | eGFR, | >60Comment: GLOMERULAR | >=60 | [facility] | | | non- | FILTRATION | mL/min/1.73m2 | [facility] | | | [place] | RATE,ESTIMATED | | MEDICAL | | | | mL/min/1.56b0Bsmq than | | CENTER - | | [...] | | | | | mg/dL | [facility] | | | | | | MEDICAL [...] [address] | [place] | [phone] | | [facility] | | [address] | | | - LABORATORY | | [...] | | | Cells | | | [facility] | | | | | | MEDICAL | | | | | | CENTER - | | | | | | LABORATORY | | + + + + + + | Red Blood | 3.38 (L) | 4.30 - 5.70 | [facility] | | | Cells | | M/uL | [facility] | | | | | | MEDICAL [...] + | [facility] | [address] | [place] | [phone] | | [facility] | | [address] | | | - LABORATORY | | [...] | | | Oral Anticoagulation | | [facility] | | | | Range: 2.0 - [...] [address] | [place] | [phone] | | [facility] | | [address] | | | - LABORATORY | | [...] [address] | [place] | [phone] | | [facility] | | [address] | | | - LABORATORY | | [...] mL/min/1.73m2 | [facility] | | | [place] | RATE,ESTIMATED | | MEDICAL | | | | mL/min/1.99h1Tfnj than | | CENTER - | | [...] (L) | 3.2 - 5.0 g/dL | [facility] | | | | | [...] + | BUN/Creatin | 17.1 | | [facility] | | | ine Ratio | | | [facility] | | [...] [address] | [place] | [phone] | | [facility] | | [address] | | | - LABORATORY | | [...] [address] | [place] | [phone] | | [facility] | | [address] | | | - LABORATORY | | | | + + + + + Red Blood Cells (PRBC) - Crossmatch (12/28/2016 7:41 AM PDT) + + + + + + | Component | Value | Ref Range | Performed | Pathologist | | | | | At | Signature | + + + + + + | Product | [id number] | | [facility] | | | Code | | | [facility] | | | | | | MEDICAL | | | | | | CENTER - | | | | | | BLOOD BANK | | + + + + + + | UNIT # | [id number] | | [facility] | | | | [...] | | INTERP | | | [facility] | | [...] + + + + | Blood | [id number] | | [facility] | | | Product [...] + + + + | Product | [id number] | | [facility] | | | Code | | | [facility] | | | | | | MEDICAL | | | | | | CENTER - | | | | | | BLOOD BANK | | + + + + + + | UNIT # | [id number] | | [facility] | | | | [...] + + + + | Blood | [id number] | | [facility] | | | Product [...] [place] | | | [facility] | | [address] | | | - BLOOD BANK | [...] [address] | [place] | [phone] | | [facility] | | [address] | | | - LABORATORY | | | | + + + + + Magnesium (12/28/2016 3:30 AM PDT) + +---------+ + + + | Component | Value | Ref Range | Performed | Pathologist | | | | | At | Signature | + +---------+ + + + | Magnesium | 1.6 (L) | 1.8 - 2.5 mg/dL | [facility] | | | | [...] [address] | [place] | [phone] | | [facility] | | [address] | | | - LABORATORY | | [...] | 1.21 | 0.60 - 1.30 | [facility] | | | | | mg/dL | [facility] | | | | | | MEDICAL | | | | | | CENTER - | | | | | | LABORATORY | | + + + + + + | eGFR, | 57 (L)Comment: | >=60 | [facility] | | | non- | GLOMERULAR FILTRATION | mL/min/1.73m2 | [facility] | | | [place] | RATE,ESTIMATED | | MEDICAL | | | | mL/min/1.60y1Uorl than | | CENTER - | | [...] [address] | [place] | [phone] | | [facility] | | [address] | | | - LABORATORY | | [...] [address] | [place] | [phone] | | [facility] | | [address] | | | - LABORATORY | | [...] + | [facility] | [address] | [place] | [phone] | | [facility] | | [address] | | | - LABORATORY | | [...] eGFR, | >60Comment: GLOMERULAR | >=60 | [facility] | | | non- | FILTRATION | mL/min/1.73m2 | [facility] | | | [place] | RATE,ESTIMATED | | MEDICAL | | | | mL/min/1.43m0Xfni than | | CENTER - | | [...] (L) | 3.2 - 5.0 g/dL | [facility] | | | | | | [facility] | | | | | | MEDICAL [...] | | | Protein | | | [facility] | | [...] | | | | | | [facility] | | | | | | MEDICAL [...] [address] | [place] | [phone] | | [facility] | | [address] | | | - LABORATORY | | [...] | | | Cells | | | [facility] | | | | | | MEDICAL | | | | | | CENTER - | | | | | | LABORATORY | | + + + + + + | Red Blood | 3.23 (L) | 4.30 - 5.70 | [facility] | | | Cells | | M/uL | [facility] | | | | | | MEDICAL [...] | | | | g/dL | [facility] | | | | [...] + | [facility] | 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 | | | MARGARET | | | Gender Male | | | Nurse Stress | | | Grave Cleaner Procedure Type of Study TTE procedure: ECHO [...] Volume: 74.41 ml | | | EF Gnlicoopw16% Left Ventricle Diastolic | | | Dimension: [...] Volume: 74.41 ml | | | EF Glpnvbnet30% | | | | | | Left [...] Number 459 | | DESTINY Patient Number [id number] Date of Study 12/26/2016 Visit | | Number [id number] Referring Physician CANDELARIO | | RAEF Number Date of 1930 News Cameraman DERICMELISSA BOWMAN, | | [place] Age 86 year(s) | | Interpreting MARGARET DUGAN 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 | [place] | [phone] | | [facility] | | [address] | | | - LABORATORY | | | | + + + + + PRODUCT: Plasma (12/26/2016 7:15 AM PDT) + + + + + + | Component | Value | Ref Range | Performed | Pathologist | | | | | At | Signature | + + + + + + | Product | [id number] | | [facility] | | | Code | | | [facility] | | | | | | MEDICAL | | | | | | CENTER - | | | | | | BLOOD BANK | | + + + + + + | UNIT # | [id number] | | [facility] | | | | [...] + + + + | Blood | [id number] | | [facility] | | | Product [...] + + + + | Product | [id number] | | [facility] | | | Code | | | [facility] | | | | | | MEDICAL | | | | | | CENTER - | | | | | | BLOOD BANK | | + + + + + + | UNIT # | [id number] | | [facility] | | | | [...] + + + + | Blood | [id number] | | [facility] | | | Product [...] [place] | | | [facility] | | [address] | | | - BLOOD BANK | [...] + | [facility] | [address] | [place] | [phone] | | [facility] | | [address] | | | - LABORATORY | | [...] eGFR, | 59 (L)Comment: | >=60 | [facility] | | | non- | GLOMERULAR FILTRATION | mL/min/1.73m2 | [facility] | | | [place] | RATE,ESTIMATED | | MEDICAL | | | | mL/min/1.20z9Qnbf than | | CENTER - | | [...] + | [facility] | [address] | [place] | [phone] | | [facility] | | [address] | | | - LABORATORY | | [...] [address] | [place] | [phone] | | [facility] | | [address] | | | - LABORATORY | | [...] | 0.00 | 0.00 - 0.10 | [facility] | | | Basophils | | K/Nathaly | [facility] | | | | [...] [address] | [place] | [phone] | | [facility] | | [address] | | | - LABORATORY | | | | + + + + + B Type Natriuretic Peptide (12/25/2016 6:08 PM PDT) + +---------+ + + + | Component | Value | Ref Range | Performed | Pathologist | | | | | At | Signature | + +---------+ + + + | BNP | 375 (H) | <100 pg/mL | [facility] | [...] ST. | [address] | [place], [place] | [phone] | | [facility] | | [address] | | | - LABORATORY | | [...] | | Oral Anticoagulation | | [facility] | | | | Range: 2.0 - [...] [address] | [place] | [phone] | | [facility] | | [address] | | | - LABORATORY | | [...] ST. | [address] | [place], [place] | [phone] | | [facility] | | [address] | | | - LABORATORY | | [...] mL/min/1.73m2 | [facility] | | | [place] | RATE,ESTIMATED | | MEDICAL | | | | mL/min/1.11h0Qbhy than | | CENTER - | | [...] [address] | [place] | [phone] | | [facility] | | [address] | | | - LABORATORY | | [...] + | [facility] | [address] | [place] | [phone] | | [facility] | | [address] | | | - LABORATORY | | | | + + + + + Red Blood Cells (PRBC) - Crossmatch (12/25/2016 1:15 AM PDT) + + + + + + | Component | Value | Ref Range | Performed | Pathologist | | | | | At | Signature | + + + + + + | Product | [id number] | | [facility] | | | Code | | | [facility] | | | | | | MEDICAL | | | | | | CENTER - | | | | | | BLOOD BANK | | + + + + + + | UNIT # | [id number] | | [facility] | | | | [...] + + + + | Blood | [id number] | | [facility] | | | Product [...] [place] | | | [facility] | | [address] | | | - BLOOD BANK | [...] [address] | [place] | [phone] | | [facility] | | [address] | | | - LABORATORY | | [...] - 1.030 | [facility] | | | [place], | | | [facility] | | [...] Urine | | mg/dL, Negative | [facility] | | | | [...] [address] | [place] | [phone] | | [facility] | | [address] | | | - LABORATORY | | [...] [place] | | | [facility] | | [address] | | | - BLOOD BANK | [...] + | [facility] | [address] | [place] | [phone] | | [facility] | | [address] | | | - LABORATORY | | [...] 107 | 98 - 109 mmol/L | [facility] | | | | | | [facility] | | | | | | MEDICAL | | | | | | CENTER - | | | | | | LABORATORY | | + + + + + + | CO2 | 21 (L) | 24 - 31 mmol/L | [facility] | | | | | [...] (H) | 70 - 109 mg/dL | [facility] | | | | | | [facility] | | | | | | MEDICAL | | | | | | CENTER - | | | | | | LABORATORY | | + + + + + + | BUN | 19 (H) | 7 - 18 mg/dL | [facility] | | | | | | [facility] | | | | | | MEDICAL | | | | | | CENTER - | | | | | | LABORATORY | | + + + + + + | Creatinine | 1.01 | 0.60 - 1.30 | [facility] | | | | | mg/dL | [facility] | | | | | | MEDICAL | | | | | | CENTER - | | | | | | LABORATORY | | + + + + + + | eGFR, | >60Comment: GLOMERULAR | >=60 | [facility] | | | non- | FILTRATION | mL/min/1.73m2 | [facility] | | | [place] | RATE,ESTIMATED | | MEDICAL | | | | mL/min/1.13s2Yoap than | | CENTER - | | [...] [address] | [place] | [phone] | | [facility] | | [address] | | | - LABORATORY | | [...] | | Cells | | | [facility] | | | | | | [...] | | Eosinophils | | | [facility] | | [...] + | [facility] | [address] | [place], [place] | [phone] | | [facility] | | [address] | | | - LABORATORY | | [...] | | | | g/dL | [facility] | | | | [...] [address] | [place] | [phone] | | [facility] | | [address] | | | - LABORATORY | | [...] [address] | [place] | [phone] | | [facility] | | [address] | | | - LABORATORY | | [...] [facility] | | | Basophils | | K/Nathaly | [facility] | | | | [...] [address] | [place] | [phone] | | [facility] | | [address] | | | - LABORATORY | | [...] | 1.25 | 0.60 - 1.30 | [facility] | | | | | mg/dL | [facility] | | | | | | MEDICAL | | | | | | CENTER - | | | | | | LABORATORY | | + + + + + + | eGFR, | 55 (L)Comment: | >=60 | [facility] | | | non- | GLOMERULAR FILTRATION | mL/min/1.73m2 | [facility] | | | [place] | RATE,ESTIMATED | | MEDICAL | | | | mL/min/1.74s9Oiig than | | CENTER - | | [...] [address] | [place] | [phone] | | [facility] | | [address] | | | - LABORATORY | | | | + + + + + Red Blood Cells (PRBC) - Crossmatch (12/23/2016 1:15 AM PDT) + + + + + + | Component | Value | Ref Range | Performed | Pathologist | | | | | At | Signature | + + + + + + | Product | [id number] | | [facility] | | | Code | | | [facility] | | | | | | MEDICAL | | | | | | CENTER - | | | | | | BLOOD BANK | | + + + + + + | UNIT # | [id number] | | [facility] | | | | [...] + + + + | Blood | [id number] | | [facility] | | | Product [...] + + + + | Product | [id number] | | [facility] | | | Code | | | [facility] | | | | | | MEDICAL | | | | | | CENTER - | | | | | | BLOOD BANK | | + + + + + + | UNIT # | [id number] | | [facility] | | | | [...] + + + + | Blood | [id number] | | [facility] | | | Product [...] [place] | | | [facility] | | [address] | | | - BLOOD BANK | [...] [address] | [place] | [phone] | | [facility] | | [address] | | | - LABORATORY | | [...] + | Zac Pierce Results In - 12/22/2016 2:47 PM PDT [...] eGFR, | >60Comment: GLOMERULAR | >=60 | [facility] | | | non- | FILTRATION | mL/min/1.73m2 | [facility] | | | [place] | RATE,ESTIMATED | | MEDICAL | | | | mL/min/1.98x8Emzk than | | CENTER - | | [...] [address] | [place] | [phone] | | [facility] | | [address] | | | - LABORATORY | | [...] + | [facility] | [address] | [place] | [phone] | | [facility] | | [address] | | | - LABORATORY | | [...] + | [facility] | [address] | [place] | [phone] | | [facility] | | [address] | | | - LABORATORY | | [...] + + | Performing | Address | [facility] | Phone Number | | [...] + + | Performing | Address | City/State[facility] | Phone Number | | Organization | | | | + + + + + | [facility] | [address] | [place] | [phone] | | [facility] | | [address] | | | - LABORATORY | | [...] 16 | 7 - 18 mg/dL | [facility] | | | | | | [facility] | | | | | | MEDICAL | | | | | | CENTER - | | | | | | LABORATORY | | + + + + + + | Creatinine | 1.16 | 0.60 - 1.30 | [facility] | | | | | mg/dL | [facility] | | | | | | MEDICAL | | | | | | CENTER - | | | | | | LABORATORY | | + + + + + + | eGFR, | 60Comment: GLOMERULAR | >=60 | [facility] | | | non- | FILTRATION | mL/min/1.73m2 | [facility] | | | [place] | RATE,ESTIMATED | | MEDICAL | | | | mL/min/1.60h4Fbvm than | | CENTER - | | [...] + | [facility] | [address] | [place] | [phone] | | [facility] | | [address] | | | - LABORATORY | | [...] + | [facility] | [address] | [place] | [phone] | | [facility] | | [address] | | | - LABORATORY | | [...] | | | | g/dL | [facility] | | | | [...] [address] | [place] | [phone] | | [facility] | | [address] | | | - LABORATORY | | [...] | [address] | [place], [place] | [phone] | | [facility] | | [address] | | | - LABORATORY | | [...] + | Zac Pierce Results In - 12/20/2016 11:03 AM PDT [...] + | [facility] | [address] | [place] | [phone] | | [facility] | | [address] | | | - LABORATORY | | [...] [address] | [place] | [phone] | | [facility] | | [address] | | | - LABORATORY | | [...] ST. | [address] | [place] | [phone] | | [facility] | | [address] | | | - LABORATORY | | [...] + | [facility] | [address] | [place], [place] | [phone] | | [facility] | | [address] | | | - LABORATORY | | [...] [address] | [place] | [phone] | | [facility] | | [address] | | | - LABORATORY | | [...] [address] | [place] | [phone] | | [facility] | | [address] | | | - LABORATORY | | | | + + + + + PRODUCT: Plasma (12/20/2016 7:15 AM PDT) + + + + + + | Component | Value | Ref Range | Performed | Pathologist | | | | | At | Signature | + + + + + + | Product | [id number] | | [facility] | | | Code | | | [facility] | | | | | | MEDICAL | | | | | | CENTER - | | | | | | BLOOD BANK | | + + + + + + | UNIT # | [id number] | | [facility] | | | | | | [facility] | | | | | | MEDICAL | | | | | | CENTER - | | | | | | BLOOD BANK | | + + + + + + | UNIT ABO | O | | [facility] | | | | | | [facility] | | [...] + + + + | Blood | [id number] | | [facility] | | | Product [...] + + + + | Product | [id number] | | [facility] | | | Code | | | [facility] | | | | | | MEDICAL | | | | | | CENTER - | | | | | | BLOOD BANK | | + + + + + + | UNIT # | [id number] | | [facility] | | | | [...] + + + + | Blood | [id number] | | [facility] | | | Product [...] + + + + | Product | [id number] | | [facility] | | | Code | | | [facility] | | | | | | MEDICAL | | | | | | CENTER - | | | | | | BLOOD BANK | | + + + + + + | UNIT # | [id number] | | [facility] | | | | [...] + + + + | Blood | [id number] | | [facility] | | | Product [...] + + + + | Product | [id number] | | [facility] | | | Code | | | [facility] | | | | | | MEDICAL | | | | | | CENTER - | | | | | | BLOOD BANK | | + + + + + + | UNIT # | [id number] | | [facility] | | | | [...] + + + + | Blood | [id number] | | [facility] | | | Product [...] [place] | | | [facility] | | [address] | | | - BLOOD BANK | [...] [address] | [place] | [phone] | | [facility] | | [address] | | | - LABORATORY | | [...] + | [facility] | [address] | [place] | [phone] | | [facility] | | [address] | | | - LABORATORY | | [...] mL/min/1.73m2 | [facility] | | | [place] | RATE,ESTIMATED | | MEDICAL | | | | mL/min/1.43h6Zkap than | | CENTER - | | [...] [address] | [place] | [phone] | | [facility] | | [address] | | | - LABORATORY | | [...] | chromogenic agar method | | [facility] | | | [...] [address] | [place] | [phone] | | [facility] | | [address] | | | - LABORATORY | | [...] | | | + +---------+ + + CARSON Mcclendon No Roberta (12/19/2016 7:17 PM PDT) + + | [...] + | [facility] | [address] | [place] | [phone] | | [facility] | | [address] | | | - LABORATORY | | [...] | MPV | 8.0 | fL | [facility] | | | | | [...] [address] | [place] | [phone] | | [facility] | | [address] | | | - LABORATORY | | [...] [facility] | | | | | | [facility] | | | | | | MEDICAL | | | | | | CENTER - | | | | | | LABORATORY | | + + + + + + | Creatinine | 1.23 | 0.60 - 1.30 | [facility] | | | | | mg/dL | [facility] | | | | | | MEDICAL | | | | | | CENTER - | | | | | | LABORATORY | | + + + + + + | eGFR, | 56 (L)Comment: | >=60 | [facility] | | | non- | GLOMERULAR FILTRATION | mL/min/1.73m2 | [facility] | | | [place] | RATE,ESTIMATED | | MEDICAL | | | | mL/min/1.00s2Csil than | | CENTER - | | [...] [address] | [place] | [phone] | | [facility] | | [address] | | | - LABORATORY | | | | + + + + + Magnesium (12/19/2016 6:18 AM PDT) + +-------+ + + + | Component | Value | Ref Range | Performed | Pathologist | | | | | At | Signature | + +-------+ + + + | Magnesium | 1.8 | 1.8 - 2.5 mg/dL | [facility] [...] + | [facility] | [address] | [place] | [phone] | | [facility] | | [address] | | | - LABORATORY | | [...] [place] | | | [facility] | | [address] | | | - BLOOD BANK | [...] + | [facility] | [address] | [place] | [phone] | | [facility] | | [address] | | | - LABORATORY | | [...] | | | | ROMERO FULLER MD ([id number]) | | | | | | on [...] | times per day), First dose on Sandy | | | | | | [...] | | | | | TITRATED, Starting [facility] 12/27/16 at | | | | [...] | | | | | TITRATED, Starting [facility] 12/27/16 at | | | | [...] | | | | | dose on [facility] 12/27/16 at 1015 | | | [...] | | | over 1 Hours, ONCE, [facility] 12/20/16 | | AM PDT | [...]
--- OUTSIDE RECORDS SUMMARY | ~2020-02-23 | XMS | Encounter Summary ---
Demographics + + + | Address | [address] | | | [place] [address] | + + + | Home Phone | | + + + | Preferred Language | Unknown | + + + | Marital Status | | + + + | Episcopalian Affiliation | Unknown | + + + | Race | Unknown | + + + | Ethnic Group | Unknown | + + + Author + + + | Author | [facility] | | | and [place] | + + + | Organization | [facility] | | [...] [place] | | | | | [address] | | + + + + + Care Team Providers + +------+ + | Care Dry Cleaner Name | Role | Phone | + +------+ + | Carlos Alberto Galeas MD | PCP | | + +------+ + Encounter Details +--------+ + + + + | Date | Type | Department | Care Team | Description | +--------+ + + + + | 07/10/ | Orders Only | [facility] | Al Conner V, | | | 2016 | | CONVERSION [address] | MD [address] | | | | | [address] | Way [place] | | | | | [place], [place] | [address] | | | | | [address] | | | | | | [phone] | | | +--------+ + + + [...] [address] | | | | | | [place] [address] | | | | | | [phone] | | | | | | | [...] Doppler was | | | perfomed at [facility]. Study: This was a technically | | [...] TR Vmax: 2.50 m/s | | | Video Games Storywriter: BHANU Authenticated by: AKHIL NIXON MD Report | | | Date/Time: 01-29-2017 16:24:52 | | + + + + + | Procedure Note | + + | Zac Pierce - 03/12/2019 6:51 PM PDT Patient Name: Jasper Thomason of | | : 1930 Performing Physician: AKHIL NIXON, | | INDICATIONS D | | ecompensated heart failure [...] and color flow Doppler was perfomed at [facility].Study: | | This was a technically adequate [...] cmLVPWd: 1.16 cmLVOT | | Area: 3.71 [id number] Diam: 2.17 cm%FS: 34.28 %EF(Teich): 63.65 %ESV(Teich): [...] | | (A-L): 65.28 ml/m2LAAs A2C: 25.62 mp0EYDIF A-L A2C: 92.62 mlLALs A2C: 6.01 | | cmLAAs A4C: 35.22 ci0ZBJBS A-L A4C: 161.80 mlLALs A4C: 6.50 cmRAAs: 21.87 | | jr1JYSOX A-L: 63.80 mlRAESV MOD: 62.81 mlRALs: 6.36 cmAV maxP.69 mmHgAV | | meanP.13 mmHgAV Vmax: 1.19 m/Zoey Vmean: 0.83 m/Zoey VTI: 20.09 cmAVA Vmax: | | 2.32 cm2AVA (VTI): 2.62 ei4OGAW Vmax: 0.00 cm2/m2AVAI (VTI): 0.00 cm2/m2LVOT | | maxP.22 mmHgLVOT meanP.43 mmHgLVSI Dopp: 27.01 ml/m2LVSV Dopp: 52.68 | | mlLVOT Vmax: 0.74 m/sLVOT Vmean: 0.58 m/sLVOT VTI: 14.18 cmMV E Ulises: 0.99 m/sMV | | DecT: 159.10 msSeptal e': 0.06 m/sSeptal E/e': 15.21Lateral e': 0.11 m/sLateral | | E/e': 8.45RAP: 5 mmHgRVSP: 30.09 mmHgTR maxP.09 mmHgTR Vmax: 2.50 m/s | | Video Games Storywriter: DHAuthenticated by: Zoe PRESLEY Date/Time: 01-29-2017 16:24:52 | [...] |TR Vmax: 2.50 m/s | | | |Video Games Storywriter: | |Authenticated by: AKHIL NIXON MD | [...]
--- OUTSIDE RECORDS SUMMARY | ~2020-02-23 | XMS | Encounter Summary ---
Demographics + + + | Address | [address] | | | [place] [address] | + + + | Home Phone | | + + + | Preferred Language | Unknown | + + + | Marital Status | | + + + | Pentecostalism Affiliation | Unknown | + + + | Race | Unknown | + + + | Ethnic Group | Unknown | + + + Author + + + | Author | [facility] | | | and [place] | + + + | Organization | [facility] | | | [...] [place] | | | | | [address] | | + + + + + Care Team Providers + +------+ + | Care Bell Hole Digger Name | Role | Phone | + +------+ + | Carlos Alberto Galeas MD | PCP | | + +------+ + Encounter Details +--------+ + + + + | Date | Type | Department | Care Team | Description | +--------+ + + + + | 12/22/ | Orders Only | [facility] [place] [facility] | Michael Alston | Stenosis of carotid | | 2019 | | SURGERY [address] | MD Dante, FACS [address] | artery, unspecified | | | | [address] [place], [place] | [address] [place] | laterality (Primary | | | | [address] | [place] [address] | Dx) | | | | [phone] | [phone] | | | | | | | [...] | 08/04/ | Office | Cardiology | KeatonrezaKenia ledesma | | | 2020 | Visit | | [address] | | | | | | [address] | | | | | | [place] [address] | | | | | | [phone] | | | | | | | [...] 19 | 9 - 23 mg/dL | [facility] | | | | | [facility] | | | | | [facility] | | | | | [facility] - | | | | | | LABORATORY | | + + + + + + | Creatinine | 1.21 | 0.70 - 1.30 | [facility] | | | | | mg/dL | [facility] | | | | | | [facility] | | | | | | CENTER - | | | | | | LABORATORY | | + + + + + + | eGFR, | 57 (L)Comment: | >=60 | [facility] | | | non- | GLOMERULAR FILTRATION | mL/min/1.73m2 | [facility] | | | [place]an | RATE,ESTIMATED | | MEDICAL | | | | mL/min/1.02q8Mnun than | | CENTER - | | [...] | | ine Ratio | | | [facility] | | | | | [...] [address] | [place] | [phone] | | [facility] | | [address] | | | - LABORATORY | | | | + + + + + documented in this encounter Visit Diagnoses + + | Diagnosis | + + | Stenosis of carotid artery, unspecified laterality - Primary | + + documented in this encounter"
--- OUTSIDE RECORDS SUMMARY | ~2020-02-23 | XMS | Encounter Summary ---
Demographics + + + | Address | [address] | | | [place] [address] | + + + | Home Phone [...] [place] | | | | | [address] | | + + + + + Care Team Providers + +------+ + | Care Campus President Name | Role | Phone | + [...] + + | 09/11/ | Anesthesia | [facility] | Stephen Sliva | | | 2019 | Event | [place] | [address]OBBY Carcamo [address] | | | | | OPER[address] | | | | | [address] | [place], [place] | | | | | [place], [place] | [address] | | | | | [address] | [phone] | | | | | [phone] | | | +--------+ + + + + Anesthesia Record + + + + + | Procedure Name | Responsible | Anesthesia Start | Anesthesia Stop Time | | | Anesthesiologist | Time | | + + + + + | ENDARTERECTOMY | Stephen Carlos Alberto | 09/11/19 0723 | 09/11/19 1210 | | FEMORAL (Left | Gavel, SPOOL WINDER | | | | Femoral Artery) | [...] | 09/11/19; 721; Y; Other; Left; | 09/11/19721 by | 09/20/19 140 by | | | lateral; foot; abrasion; | Calvin Young RN | Medina Pitts RN | | | 09/20/19; 1408 | | | +--------+ + + + | Airway | Placement Date: 09/11/19; | 09/11/19729 by | 09/11/19 115 by | | | Placement Time: 729 (created via | Stephen Carcamo | Stephen Carcamo | | | procedure documentation); Mask | Gavel, SPOOL WINDER | Gavel, SPOOL WINDER | | | Ventilation: EZ; Airway Grade: | | | | | 2a; Successful Technique: Woodard; | | | | | Laryngoscope Blade [...] encounter OR Notes Anesthesia Postprocedure Evaluation - Stephen Silva CRNA - 09/11/2019 2:[address] ANESTHESIA POSTANESTHESIA EVALUATION Deborah Thomason 88 y.o. male 1930 [id number] Procedure(s) ENDARTERECTOMY FEMORAL (Left Femoral Artery) Cooperates? Yes Mental Status Performs simple tasks. Respiratory Satisfactory - Airway patent (self maintained). Cardiovascular Satisfactory - Blood pressure and heart rate acceptable Temperature Satisfactory Pain Satisfactory N/V Control Satisfactory Hydration Satisfactory - No signs of dehydration Adverse Events ADVERSE EVENTS: No adverse events Vitals Value Taken Time Temp 36.8 C (98.2 F) 09/11/2019 1:00 PM Pulse 103 09/11/2019 2:22 PM Resp 51 09/11/2019 2:22 PM BP 119/66 09/11/2019 2:21 PM Arterial Line BP Arterial Line BP 2 SpO2 98 % 09/11/2019 2:22 PM Vitals shown include unvalidated device data. Electronically signed by Stephen Silva CRNA 09/11/2019 2:24 PM [facility] nesthesia Procedure Notes - Stephen Silva CRNA - 09/11/19 8:02 AM PSTAssociated Order(s): AirwayAnesthesia Airway Placement 09/11/2019 7:30 AM Preprocedure check: patient identified, oxygen, airway assessed, patient reassessment prior to induction, airway equipment checked and suction Mask ventilation: easy Successful technique: Woodard Laryngoscope blade size: 2 Airway grade: 2a (Partial view of glottis) Other equipment: stylette Attempts: 1 Airway type: endotracheal Size: 7 Cuffed: cuffed Route, reference point: center of mouth Tube depth: 22 cm Tube secured with: adhesive tape Trauma: none Tube placement verification: bilateral chest rise and carbon dioxide detection Performing provider: Stephen Silva CRNA Authorizing provider: Stephen Silva CRNA Please see intraoperative grid for any additional medication documentation. nesthesia Preprocedure Evaluation - Stephen Silva CRNA - 09/11/2019 6:32 AM PST ANESTHESIA PREANESTHESIA EVALUATION Deborah Thomason 88 y.o. male 1930 [id number] Procedure(s): ENDARTERECTOMY FEMORAL (Left ) Medical,anesthesia, drug, allergy histories reviewed, NPO status verified. ECG reviewed. Labs reviewed. Review of Systems / Med History Anesthesia History No anesthesia complications except where noted below. Family Anesthesia History Family Anesthesia Negative except where noted below. Cardiovascular Favorable echocardiogram from 2017 noted. History of subclavian steal note d.. 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 (+) Dysrhythmias: (+) present atrial flutter, (+) coronary artery disease of [place] artery. (+) angioplasty. (+) PVD: right LE PVD, left LE PVD , right carotid stenosis, left carotid stenosis . Pulmonary (+) Chronic Obstructive Pulmonary Disease.(+) tobacco use.(+) ex-smoker: 2002. Gastrointestinal/Hepatic Negative except where noted below. Renal (+) chronic renal insufficiency. Hematology/Other Negative except where noted below. Cancer T-Cell lymphoma that is in remission.. Neuromuscular Carotid artery duplex from 06/2019 found: 1. 50-69% stenosis of the right proximal ICA. 2. Probable 50-69% proximal left ICA stenosis,, due to elevated flow velocity in the mid ICA. Proximal ICA not well evaluated due to heavily calcified arterial wall causing shadowing. 3. Greater than 70% stenosis of the distal CCA/arterial bulb junction, with 4.5 peak systolic flow velocity increase. This has likely slightly worsened. 4. Findings suggest right subclavian steal, with retrograde vertebral arterial flow. 5. Transitional left vertebral arterial flow suggesting left subclavian stenosis. 6. If clinically indicated, CTA analysis could be helpful for to further evaluate stenoses, delineated above.. (+) CVA. Psychology Negative except where noted below. Physical Exam Airway MP II, TM >3 FB, Neck: full ROM, Jaw protrusion normal. Dental (+) age appropriate dentition. CV cardiovascular normal Rhythm regular. Rate normal. Pulm Clear to auscultation bilaterally. Neuro grossly normal. Anesthesia Plan ASA: 3 Type: General. Induction: Intravenous. Potential problems: None anticipated. Monitors: Standard ASA monitors. Postop Pain Management: Consent statement: Anesthetic plan, alternatives, risks and benefits discussed with patient. , nausea, pa in, perioperative CV events, respiratory events, sore throat Consenting person understands and agrees to proceed. Anesthesia consent form used. documented in this encounter Miscellaneous Notes Anesthesia Post-op Handoff - Stephen Silva CRNA - 09/11/2019 12:11 PM PSTFormatt ing of this note might be different from the original. ANESTHESIA HANDOFF NOTE Deborah Thomason 88 y.o. male 1930 [id number] ENDARTERECTOMY FEMORAL (Left Femoral Artery) HANDOFF NOTE Handoff Protocol Used: post-procedure handoff checklist completed The following were completed during the transfer of care: 1. Identification of patient 2. Identification of responsible practitioner (primary service) 3. Discussion of pertinent medical history 4. Discussion of the surgical/procedure course (procedure, reason for surgery, procedure pe rformed) 5. Intraoperative anesthetic management and issues/concerns 6. Expectations/plans for the early post-procedure period 7. Opportunity for questions and acknowledgement of understanding of report from receiving team Patient Location: Phase I Condition: responds to stimuli and sedated Airway/O2: face mask with O2 Multimodal analgesia: multimodal analgesia used between 6 hours prior to anesthesia start t o PACU discharge The significant anesthesia concerns and VS in Epic were reviewed with the receiving team. Stephen Silva CRNA 09/11/2019 12:11 PM [facility] documented in this encounter Plan of Treatment +--------+---------+ + + + | Date | Type | Specialty | Care Team | Description | +--------+---------+ + + + | 08/04/ | Office | Cardiology | Anusha Lomax | | | 2020 | Visit | | [address] | | | | | | [address] | | | | | | [place] [address] | | | | | | [phone] | | | | | | | [...] | | | PRN, Starting 09/11/19 at | | AM PST | | | | | 1137, Anesthesia Intra-op | | | | | | + +-------+ +------+---+---+ +---+---+ | | | +---+---+ + +-------+ +---------+---+---+ | EPINEPHrine 0.1 mg/mL syringe | Given | 09/11/19 | 0.01 mg | | | | Intravenous, PRN, Starting Fri | | 20 8:39 | | | | | 09/11/19 [...] +--------+---+---+ | glycopyrrolate (ROBINUL) | Given | 09/11/19 | 0.4 mg [...]
--- OUTSIDE RECORDS SUMMARY | ~2020-02-23 | XMS | Encounter Summary ---
Demographics + + + | Address | [address] | | | [place] [address] | + + + | Home Phone | | + + + | Preferred Language | Unknown | + + + | Marital Status | | + + + | Nondenominational Affiliation | Unknown | + + + | Race | Unknown | + + + | Ethnic Group | Unknown | + + + Author + + + | Author | [facility] | | | and [place] | + + + | Organization | [facility] [...] [place] | | | | | [address] | | + + + + + Care Team Providers + +------+ + | Care Soda Fountain Clerk Name | Role | Phone | [...] DR ADLER | | | | | ([facility]) | [address] | [place], [place] | | | | | Essential | [place], [place] | [address] | | | | | hypertension | [address] | Phone: | | | | | PVD | Phone: | [phone] | | | | | (peripheral | [phone] | Fax: | | | | | vascular | Fax: | [phone] | | | | | disease) | [phone] | | | | | | ([facility]) | | | | | [...] + + | 07/02/ | Office | [facility] | Peggy Cason DNP | Bilateral carotid | | 2019 | Visit | VASCULAR SURGERY | [address] | artery stenosis | | | | [address] | [address] [place], [place] | (Primary Dx); PVD | | | | [place], [place] | [address] | (peripheral vascular | | | | [address] | | disease) (HCC) | | | | [phone] | Osmin Garber MD | | | | | | [address] | | | | | | [address] [facility] | | | | | | [place] [address] | | | | | | [phone] | | | | | | | [...] + + documented as of this encounter Joceline Garber, Osmin, MD - 07/02/2019 11:45 AM PSTFormatting of this note might be different from t he original. [facility] [address] [place] [address] Office: [phone] DATE OF VISIT: 07/04/2019 PATIENT NAME: Deborah Thomason : 1930; AGE: 88 y.o.; Sex:M PHONE NUMBER: ; (Work); ; PHYSICIAN: Osmin Garber MD PRIMARY CARE / REFERRING PHYSICIAN: Paolo Selby MD / Carlos Alberto Galeas MD / [address] / [place] [address] / REASON FOR EVALUATION / CHIEF COMPLAINT: [...] a r ight carotid endarterectomy done in [place] many years ago. He denies any recent illness, fever, chills, Chest pain, SOB. Patient denies any amaurosis, stroke/TIA symptoms. PAST SURGICAL HISTORY: The patient's has a past surgical history that includes Cataract re moval with implant (Bilateral); CORONARY ANGIOPLASTY without stent [facility] OR (A pprox [phone]); Femur fracture surgery (Right, 12/19/2016); Femur fracture surgery (Left, ); carotid endarterectomy (Right); Heart/ Arrhythmia ablation ; Right thigh biopsy (10/24/2011); Right femoral to below knee popliteal reverse saphenus vein graft (12/01/2013) ; and Ultrasound guided access, right common femoral artery (11/30/2013). 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 [...] mouth Daily. 3 mg on Saturday, , Sa , Saturday. warfarin (COUMADIN) 5 mg tablet [...] Osmin Garber MD Vascular Surgery Dictation software, [employer], used which may contain error for similar [...] [address] | | | | | | [place] [address] | | | | | | [phone] | | | | | | | [...]
--- OUTSIDE RECORDS SUMMARY | ~2020-02-23 | XMS | Encounter Summary ---
Demographics + + + | Address | [address] | | | [place] [address] | + + + | Home Phone | | + + + | Preferred Language | Unknown | + + + | Marital Status | | + + + | Yarsani Affiliation | Unknown | + + + | Race | Unknown | + + + | Ethnic Group | Unknown | + + + Author + + + | Author | [facility] | | | and [place] | + + + | Organization | [facility] | | | [...] [place] | | | | | [address] | | + + + + + Care Team Providers + +------+ + | Care Rap Artist Name | Role | Phone | + [...] | | | [address] [place] | [place] [address] | | | | | [place] [address] | | | | | | [phone] | | | +--------+ + + + [...] [address] | | | | | | [place] [address] | | | | | | [phone] | | | | | | | [...] for comparison only - no result from [place]. | [facility] | + + + + +---------+ + + | Performing | Address | City/State/Zipcode | Phone Number | | Organization | | | | + +---------+ + + | [facility] | | | | + +---------+ + + documented in this encounter Visit Diagnoses Not on filedocumented in this encounter"
--- OUTSIDE RECORDS SUMMARY | ~2020-02-23 | XMS | Encounter Summary ---
Demographics + + + | Address | [address] | | | [place] [address] | + + + | Home Phone | | + + + | Preferred Language | Unknown | + + + | Marital Status | | + + + | Episcopalian Affiliation | Unknown | + + + | Race | Unknown | + + + | Ethnic Group | Unknown | + + + Author + + + | Author | [facility] | | | and [place] | + + + | Organization | [facility] | | | and [...] [place] | | | | | [address] | | + + + + + Care Team Providers + +------+ + | Care Tool And Die Repairer Name | Role | Phone | [...] 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Michael I, | [address] [place] | | | | | carotid | MD, FACS | [place], | | | | | artery, | [address] | [place] [address] | | | | | unspecified | [place] | Phone: | | | | | laterality | [place] | [phone] | | | | | Procedures | [address] | Fax: | | | | | CT Angiogram | Phone: | [phone] | | | | | Neck w | [phone] | | | | | | Contrast | Fax: | | | | | | | [phone] | | +--------+--------+ + + + + [...] 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Michael I, | [place] | | | | | carotid | MD, FACS | [place], | | | | | artery, | [address] | [place] [address] | | | | | unspecified | [place] | Phone: | | | | | laterality | [place], [place] | [phone] | | | | | Procedures | [address] | Fax: | | | | | CT Angiogram | Phone: | [phone] | | | | | Neck w | [phone] | | | | | | Contrast | Fax: | | | | | | | [phone] | | +--------+--------+ + + + + Encounter Details +--------+ + + + + | Date | Type | Department | Care Team | Description | +--------+ + + + + | 12/25/ | Hospital | [facility] | Michael Alston | Stenosis of carotid | | 2019 | Encounter | MED CTR [address] | MD Howell FACS [address] | artery, unspecified | | | | [place], | [address] [place] | laterality | | | | [place] [address] | [place] [address] | | | | | [phone] | [phone] | | | | | | | [...] + + + +---------+ + + | [address] | | | [address] | [...] [address] | | | | | | [place] [address] | | | | | | [phone] | | | | | | | | +--------+---------+ + + + documented as of this encounter Procedures + +--------+ + + + | Procedure Name | Priori | Date/Time | Associated Diagnosis | Comments | | | ty | | | | + +--------+ + + + | CT ANGIOGRAM NECK W | Routin | 12/25/2018 | 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Results for this | | CONTRAST | e | 10:20 AM | carotid artery, | procedure are [...] laterality | + + documented in this encounter Administered Medications + +--------+ +--------+------+------+ | Medication Order | MAR | Action | Dose | Rate | Site | | | Action | Date | | | | + +--------+ +--------+------+------+ | iohexol (OMNIPAQUE 350) 350 | Given | 12/26/19 | 90 mLs | | | | mg/mL injection 90 mL 90 mL, | | 19 10:15 | | | | | Intravenous, ONCE PRN, Other, for | | AM PDT | | | | | imaging CT study, Starting Sandy | | | | | | | 12/25/18 at 1040, For 1 dose, | | | | | | | Radiology | | | | | | + +--------+ +--------+------+------+ +---+---+ | | | +---+---+ + +------+ +---------+-------+---+ | sodium chloride 0.9% (NS) bolus | Push | 12/26/19 | 100 mLs | 6000 | | | 100 mL 100 mL, Intravenous, | | 19 10:15 | | mL/hr | | | Administer over 1 Minutes, ONCE | | AM PDT | | | | | PRN, for imaging CT study, | | | | | | | Starting Sandy 12/25/18 at 1040, For | | | | | | | 1 dose, Radiology | | | | | | + +------+ +---------+-------+---+ +---+---+ | | | +---+---+ documented in this encounter"
--- OUTSIDE RECORDS SUMMARY | ~2020-02-23 | XMS | Encounter Summary ---
Demographics + + + | Address | [address] | | | [place] [address] | + + + | Home Phone | | + + + | Preferred Language | Unknown | + + + | Marital Status | | + + + | Latter-Day Affiliation | Unknown | + + + | Race | Unknown | + + + | Ethnic Group | Unknown | + + + Author + + + | Author | [facility] | | | and [place] | + + + | Organization | [facility] | | | [...] [place] | | | | | [address] | | + + + + + Care Team Providers + +------+ + | Care Steam Powerplant Supervisor Name | Role | Phone | + +------+ + | Carlos Alberto Galeas MD | PCP | | + +------+ + Encounter Details +--------+ + + + + | Date | Type | Department | Care Team | Description | +--------+ + + + + | 12/23/ | Orders Only | [facility] [place] [facility] | Jenni Meza | | | 2019 | | SURGERY [address] | | | | | [place] | | | | | | [address] | | | | | | [phone] | | | +--------+ + + + [...] | | | | | [place] [address] | | | | | | [phone] | | | | | | | | +--------+---------+ + + + documented as of this encounter Visit Diagnoses Not on filedocumented in this encounter"
--- OUTSIDE RECORDS SUMMARY | ~2020-02-23 | XMS | Encounter Summary ---
Demographics + + + | Address | [address] | | | [place] [address] | + + + | Home Phone [...] [place] | | | | | [address] | | + + + + + Care Team Providers + +------+ + | Care Shank Taper Name | Role | Phone | + +------+ + | Carlos Alberto Galeas MD | PCP | | + +------+ + Encounter Details +--------+ + + + + | Date | Type | Department | Care Team | Description | +--------+ + + + + | 03/12/ | Hospital | [facility] | Valente Silvestre, | Interstitial lung | | 2018 | Encounter | MED CTR PULMONARY | MD [address] | disease (HCC) | | | | FUNCTION [address] | [place], [place] | | | | | [place], | [address] | | | | | [place] [address] | | | | | | [phone] | | | +--------+ + + + [...] [address] | | | | | | [place] [address] | | | | | | [phone] | | | | | | | [...]
--- OUTSIDE RECORDS SUMMARY | ~2020-02-23 | XMS | Encounter Summary ---
Demographics + + + | Address | [address] | | | [place] [address] | + + + | Home Phone | | + + + | Preferred Language | Unknown | + + + | Marital Status | | + + + | Mormon Affiliation | Unknown | + + + | Race | Unknown | + + + | Ethnic Group | Unknown | + + + Author + + + | Author | [facility] | | | and [place] | + + + | Organization | [facility] | | [...] [place] | | | | | [address] | | + + + + + Care Team Providers + +------+ + | Care Ware Tester Name | Role | Phone | [...] | | | [address] [place] | [place] [address] | | | | | [place] [address] | | | | | | [phone] | | | +--------+ + + + [...] [address] | | | | | | [place] [address] | | | | | | [phone] | | | | | | | [...]
--- OUTSIDE RECORDS SUMMARY | ~2020-02-23 | XMS | Encounter Summary ---
Demographics + + + | Address | [address] | | | [place] [address] | + + + | Home Phone [...] [place] | | | | | [address] | | + + + + + Care Team Providers + +------+ + | Care Pediatrician Name | Role | Phone | + [...] | | | [address] | [place] [address] | | | | | [place] [address] | | | | | | [phone] | | | +--------+ + + + [...] [address] | | | | | | [place] [address] | | | | | | [phone] | | | | | | | [...] for comparison only - no result from [place]. | [facility] | + + + + +---------+ + + | Performing | Address | City/State/Zipcode | Phone Number | | Organization | | | | + +---------+ + + | [facility] | | | | + +---------+ + + documented in this encounter Visit Diagnoses Not on filedocumented in this encounter"
--- OUTSIDE RECORDS SUMMARY | ~2020-02-23 | XMS | Encounter Summary ---
Demographics + + + | Address | [address] | | | [place] [address] | + + + | Home Phone [...] | Organization | [facility] [...] [place] | | | | | [address] | | + + + + + Care Team Providers + +------+ + | Care Hide Salter Name | Role | Phone | + [...] | | | | | bypass | [place], [place] | | | | | | Procedures | [address] | | | | | | [address] | Phone: | | | | | | Art Bilat w | [phone] | | | | | | JEREMY Single | Fax: | | | | | | Lvl | [phone] | | +--------+--------+ + + + + [...] | | | | | bypass | [place], [place] | | | | | | Procedures | [address] | | | | | | [address] | Phone: | | | | | | Art Bilat w | [phone] | | | | | | JEREMY Single | Fax: | | | | | | Lvl | [phone] | | +--------+--------+ + + + + Encounter Details +--------+ + + + + | Date | Type | Department | Care Team | Description | +--------+ + + + + | 07/27/ | Hospital | [facility] | Peggy Cason, NICOLE | Status post | | 2020 | Encounter | VASCULAR SURGERY | [address] | peripheral artery | | | | ULTRASOUND [address] | [address] | bypass | | | | [address] [place] | [address] | | | | | [place] | | | | | | [address] | | | | | | [phone] | | | +--------+ + + + [...] [address] | | | | | | [place] [address] | | | | | | [phone] | | | | | | | [...] + | 1. Right JEREMY showed triphasic COAT PRESSER and monophasic DPA waveforms. | [facility] [...] | | [place], [place] Signed by: Rosalie Cohen, Joao Sign | | | Date/Time: 07/27/2019 4:49 [...] | | calculated TBI: 0.56 Waveforms: Triphasic COAT PRESSER. Monophasic DPA. | | | LEFT SEGMENTAL BP: Brachial: 139 Ankle (PT): 43 Ankle(DP): | | | Could not be obtained. Digit: 42 JEREMY (PT): 0.31 JEREMY (DP): Not | | | calculated. TBI: 0.30 Waveforms: All vessels monophasic. | | + + + + + | Procedure Note | + + | Zac Pierce Results In - 07/27/2019 4:53 PM PST [...] | TBI: 0.56 | | Waveforms: Triphasic COAT PRESSER. Monophasic DPA. | | | | LEFT [...] | | 1. Right JEREMY showed triphasic COAT PRESSER and monophasic DPA waveforms. The | | [...] + | Performing | Address | City/State/[facility] | Phone Number | | Organization | | | | + +---------+ + + | [facility] | | | | + +---------+ + + documented in this encounter Visit Diagnoses + + | Diagnosis | + + | Status post peripheral artery bypass Other postprocedural status | + + documented in this encounter"
--- OUTSIDE RECORDS SUMMARY | ~2020-02-23 | XMS | Encounter Summary ---
Demographics + + + | Address | [address] | | | [place] [address] | + + + | Home Phone [...] [place] | | | | | [address] | | + + + + + Care Team Providers + +------+ + | Care Environmental Engineer Name | Role | Phone | [...] + + | 12/30/ | Office | [facility] | Michael Alsotn | Patient left without | | 2019 | Visit | SURGERY [address] | MD Dante, [address] | being seen (Primary | | | | [address] | [address] [place] | Dx) | | | | [address] | [place] [address] | | | | | [phone] | [phone] | | | | | | | [...] WAS NO SEEN, PROVIDER IN THE OR. CAHTY ENT RESCHEDULED TO 12/31/2018 documented in this [...] [address] | | | | | | [place] [address] | | | | | | [phone] | | | | | | | | +--------+---------+ + + + documented as of this encounter Visit Diagnoses + + | Diagnosis | + + | Patient left without being seen - Primary Surgical or other procedure not carried out | | because of patient's decision | + + documented in this encounter
--- OUTSIDE RECORDS SUMMARY | ~2020-02-23 | XMS | Encounter Summary ---
Demographics + + + | Address | [address] | | | [place] [address] | + + + | Home Phone | | + + + | Preferred Language | Unknown | + + + | Marital Status | | + + + | Latter Day Affiliation | Unknown | + + + | Race | Unknown | + + + | Ethnic Group | Unknown | + + + Author + + + | Author | [facility] | | | and [place] | + + + | Organization | [facility] | | [...] [place] | | | | | [address] | | + + + + + Care Team Providers + +------+ + | Care Supply Planner Name | Role | Phone | + [...] | | | [address] | [place] [address] | | | | | [place] [address] | | | | | | [phone] | | | +--------+ + + + [...] [address] | | | | | | [place] [address] | | | | | | [phone] | | | | | | | [...] for comparison only - no result from [place]. | [facility] | + + + + +---------+ + + | Performing | Address | City/State/Zipcode | Phone Number | | Organization | | | | + +---------+ + + | [facility] | | | | + +---------+ + + documented in this encounter Visit Diagnoses Not on filedocumented in this encounter"
--- OUTSIDE RECORDS SUMMARY | ~2020-02-23 | XMS | Encounter Summary ---
Demographics + + + | Address | [address] | | | [place] [address] | + + + | Home Phone | | + + + | Preferred Language | Unknown | + + + | Marital Status | | + + + | Quaker Affiliation | Unknown | + + + | Race | Unknown | + + + | Ethnic Group | Unknown | + + + Author + + + | Author | [facility] | | | and [place] | + + + | Organization | [facility] | | | and [...] [place] | | | | | [address] | | + + + + + Care Team Providers + +------+ + | Care Process Line Operator Name | Role | Phone | [...] Specialty | Vascular | Diagnoses | [facility] | | | Services | Surgery | Chronic | MD Paolo | Surgery | | | Required | | atrial | [address] | | | | | fibrillation | [address] | DR [address] | | | | | (HCC) | [address] | [place], [place] | | | | | Essential | [place], [place] | [address] | | | | | hypertension | [address] | Phone: | | | | | PVD | Phone: | [phone] | | | | | (peripheral | [phone] | Fax: | | | | | vascular | Fax: | [phone] | | | | | disease) | [phone] | | | | | | (HCC) [...] + + | 06/10/ | Office | [facility] | Paolo Carrillo, | Chronic atrial | | 2019 | Visit | CARDIOLOGY [place] | [address] | fibrillation (HCC) | | | | [address] | [address] [place], [place] | (Primary Dx); | | | | [address] | [address] | Essential | | | | [place] | | hypertension; PVD | | | | [address] | | (peripheral vascular | | | | [phone] | | disease) (HCC); | | | [...] to follow up with vascular surgery in [place]. Currently euvolemic denies any chest pain or shortness of breath, no lower extremity edema. Had one emergency room visit on October 04, 2018 secondary to shortness of breath. His BNP w as found to be elevated was diuresed and discharged home same day. Used to follow-up with cardiology at [facility]. History of chronic atrial fibrillation with a [...] Daily. 5 mg on Saturday, Saturday, No facility-administered encounter medications on file as [...] fibrillation with controlled ventricular rate. 01/27/2017 [facility] showed atrial fibrillation with fairly controlled ventricular response heart rate 101 Last Echo: 12/26/2016 [facility] Normal LV size and systolic function EF 60%. Mild left ventricular h ypertrophy. Dilated aortic root 4.6 cm. Mild dilated left atrium. No pulmonary hypertension. Last stress test: 2010 From [facility] Normal perfusion. Last cath: Carotid US: [...] [address] | | | | | | [place] [address] | | | | | | [phone] | | | | | | | | +--------+---------+ + + + + + +--------+ + + | Name | Type | Priori | Associated Diagnoses | Order Schedule | | | | ty | | | + + +--------+ + + | Ambulatory Referral | Outpatient | Routin | Chronic atrial | Ordered: 06/10/2019 | | to [facility] | Referral | e | fibrillation ([facility]) | | | Surgery- JOSE | | | Essential | | | | | | hypertension PVD | | | | | | (peripheral vascular | | | | | | disease) ([facility]) | | | | | | Bilateral [...] | | | | | by [facility] Read Only, | | | | | | [facility] [employer] ([id number]), | | | | | | editor map Maximiliano Yee | | | | | [...]
--- OUTSIDE RECORDS SUMMARY | ~2020-02-23 | XMS | Encounter Summary ---
Demographics + + + | Address | [address] | | | [place] [address] | + + + | Home Phone | | + + + | Preferred Language | Unknown | + + + | Marital Status | | + + + | Lutheran Affiliation | Unknown | + + + | Race | Unknown | + + + | Ethnic Group | Unknown | + + + Author + + + | Author | [facility] | | | and [place] | + + + | Organization | [facility] | | [...] [place] | | | | | [address] | | + + + + + Care Team Providers + +------+ + | Care Edging Machine Catcher Name | Role | Phone | + [...] | | | | IR Angiogram | [address] | | | | | | Lower | Phone: | | | | | | Extremity | [phone] | | | | | | Left | Fax: | | | | | | | [phone] | | +--------+--------+ + + + + [...] Closed | | Vascular | Diagnoses | Adal, | Jcarlos, | | | | Surgery | PAD | Carlos Alberto | Osmin Pearson MD | | | | | (peripheral | MD Dylan | [address] | | | | | artery | [address] | [address] | | | | | disease) | [address] | [address] | | | | | (HCC) | [place], | [place], [place] | | | | | | [place] [address] | [address] Phone: | | | | | | Phone: | [phone] | | | | | | [phone] | Fax: | | | | | | Fax: | [phone] | | | | | | [phone] | | +--------+--------+ + + + + Encounter Details +--------+---------+ + + + | Date | Type | Department | Care Team | Description | +--------+---------+ + + + | 09/02/ | Office | [facility] | Osmin Garber MD | PAD (peripheral | | 2020 | Visit | VASCULAR SURGERY | [address] | artery disease) | | | | [address] | [address] | ([facility]) (Primary Dx); | | | | E [place], [place] | [place] [address] | Bilateral carotid | | | | [address] | [phone] | artery stenosis | | | | [phone] | | | +--------+---------+ + + + [...] might be different from t he original. [facility] [address] [place] [address] [place] [address] Office: [phone] DATE OF VISIT: 09/02/2019 PATIENT NAME: Deborah Thomason : 1930; AGE: 88 y.o.; Sex:M PHONE NUMBER: ; (Work); ; PHYSICIAN: Osmin Garber MD PRIMARY CARE / REFERRING PHYSICIAN: Carlos Alberto Galeas,* / Bob Davis D / [address] / [place] [address] / REASON FOR EVALUATION / CHIEF COMPLAINT: [...] Patient has history of a bypass on th e right lower extremity, and a right carotid endarterectomy done in [place] many years ago. Patient denies any recent illness, fever, chills, chest pain, or [id number]. Patie nt denies any amaurosis or stroke/TIA [...] SINGLE LEVEL from 07/27/2019: IMPRESSION: 1. Right JREEMY showed triphasic CHICKEN SEXER and monophasic DPA waveforms. The JEREMY was normal. The TBI was mildly diminished. 2. Left JEREMY showed monophasic waveforms in all vessels. The JEREMY and TBI values were severel y diminished. 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 PVD (peripheral vascular disease) ([facility]) 02/06/2018 Urinary retention Past Surgical History: Procedure Laterality Date CAROTID ENDARTERECTOMY Right CATARACT REMOVAL WITH IMPLANT Bilateral 03/30/10 and 04/27/10 CORONARY ANGIOPLASTY without stent [facility] Approx [id number] FEMUR FRACTURE SURGERY Right 12/19/2016 Procedure: ORIF IM RODDING FEMORAL ANTEGRADE; Surgeon: Lambert Mancuso MD; Location: [facility] OR FEMUR FRACTURE SURGERY Left 12/19/2016 Procedure: ORIF IM RODDING FEMORAL TROCHANTERIC NAIL; Surgeon: Lambert Mancuso MD; Locati on: [facility] OR Heart/ Arrhythmia ablation Right femoral to below knee popliteal reverse saphenus vein graft 12/01/2013 Right common femoral endarterectomy with Vascu-Guard patch angioplasty, Right external mk ac stent angioplasty 7x29 mm, Angiography, Harvesting right greater saphenous vein, Dual - l umen on Q pain pump placement. [facility] - Dr. Delaney Right thigh biopsy 10/24/2011 nonspecific chronic dermatitis Ultrasound guided access, right common femoral artery 11/30/2013 Right iliac angiography, Right femoral angiography with runoff. [facility] - Dr. Delaney Social History Tobacco [...] peripheral edema. Rate regular. ABD: non-tender SKIN: Hoot Owl, dependent rubor on left. MUSCULOSKELETAL: ROM not [...] on 09/11/2019. All questions and concerns addressed. P ho understands and is agreeable. In terms of [...] [address] | | | | | | [place] [address] | | | | | | [phone] | | | | | | | | +--------+---------+ + + + documented as of this encounter Results IR Angiogram Lower Extremity Left (09/11/2019 11:36 AM PST) + + | Specimen | + + | | + + + + ---+ | Narrative | Performed A t | + + ---+ | [facility] | [facility] | | Health & Services OPERATIVE REPORT PATIENT NAME: Deborah Bautista | | | Katelin AGE: 89 y.o. TODAY'S DATE: 09/28/2019 | | | Date of Procedure: 09/11/2019 Surgeon: | | | Surgeon(s):Yolnada Perkins MD Surgical Assists: Kendell | | [...] iliac artery. Using | | | a [place] a endarterectomy was performed of the common [...] | | | advanced and a 8 Albanian 23 cm Sheath was placed. A an [...] introduced a | | | 3 mm Folcroft angioplasty balloon and dilated the common and [...] with a 10 mm | | | Folcroft and the external iliac post dilated with an 8 mm Folcroft. | | | Repeat contrast injection showed [...] signal in the profunda femoris, SFA, and SEX THERAPIST. The left groin wound | | | [...] signal in the profunda femoris, SFA, and SEX THERAPIST. The left | | |groin wound was thoroughly irrigated. The incision was then closed in | | |layers first with a 2-0 Vicryl, then 3-0 Vicryl. Sumner were used to | | |re-approximate the [...]
[~2020-02-23 15:06] MED LIST changes: +BACTRIM DS TAB1 EACH PO; +CLOPIDOGREL75 MG PO; -COUMADIN3 MG PO; +WARFARIN SODIUM3 MG PO
--- NOTE | 2020-02-24 07:36 | EKG ---
[facility] [address] [facility] [place] [address] Signed Atrial fibrillation Left anterior fascicular block Nonspecific ST abnormality Abnormal ECG When compared with ECG of 04-OCT-2018 20:00, Atrial fibrillation has replaced Atrial flutter Left anterior fascicular block is now present Confirmed by SHANELL ESPITIA MD ([id number]) on 02/24/2020 7:35:49 AM Electronically Signed By: SHANELL ESPITIA MD 02/24/20 0736 PATIENT NAME: DORA ARELLANO Electrocardiogram DATE OF : 34 PHYSICIAN: SHANELL ESPITIA MD REPORT #: [id number] REPORT IS CONFIDENTIAL AND NOT TO BE RELEASED WITHOUT AUTHORIZATION
== END 2020-02-23 19:45 | disposition home or self-care (01) ==
LOC: ED 15:06
DX: S51.811A Laceration without foreign body of right forearm, initial encounter (principal); S41.011A Laceration without foreign body of right shoulder, initial encounter; S81.011A Laceration without foreign body, right knee, initial encounter; S00.81XA Abrasion of other part of head, initial encounter; I48.91 Unspecified atrial fibrillation; Z88.0 Allergy status to penicillin; Z88.8 Allergy status to other drugs, medicaments and biological substances; Z79.899 Other long term (current) drug therapy; Z79.01 Long term (current) use of anticoagulants; Z79.02 Long term (current) use of antithrombotics/antiplatelets; Z86.73 Personal history of transient ischemic attack (TIA), and cerebral infarction without residual deficits; W18.30XA Fall on same level, unspecified, initial encounter
CPT/HCPCS: 70450; 72125; 80053; 81001; 84484; 85025; 85610; 93005; 93010; 99284-25

== ENCOUNTER 2020-04-17 09:04 | Emergency (ER) | payer MEDICARE ==
[~2020-04-17] VITALS: Ht 175.3 cm; Wt 78.2 kg
[2020-04-17] MEDS ORDERED: NORCO 10-325 T1 EACH PO (16:23)
== END 2020-04-17 19:05 | disposition home or self-care (01) ==
LOC: ED 09:04
DX: S32.401A Unspecified fracture of right acetabulum, initial encounter for closed fracture (principal); W01.10XA Fall on same level from slipping, tripping and stumbling with subsequent striking against unspecified object, initial encounter; I48.91 Unspecified atrial fibrillation; Z86.73 Personal history of transient ischemic attack (TIA), and cerebral infarction without residual deficits; Z88.8 Allergy status to other drugs, medicaments and biological substances; Z88.0 Allergy status to penicillin; Z79.899 Other long term (current) drug therapy; Z79.01 Long term (current) use of anticoagulants
CPT/HCPCS: 73502; 73700; 80053; 85025; 85610; 85730; 99284-25

== ENCOUNTER 2020-06-09 11:14 | Inpatient (IN) | payer MEDICARE ==
[~2020-06-09] VITALS: Ht 175.3 cm; Wt 78.4 kg
[~2020-06-09 11:14] MED LIST changes: +NORCO 10-325 T1 EACH PO
--- OUTSIDE RECORDS SUMMARY | 2020-06-09 11:16 | XMS ---
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 Dat has no Care Guidelines for this patient. [place] VISIT COUNT (12 MO.) 5 [facility]EL[facility] Ken TOTAL 5 NOTE: Visits indicate total known visits. ED/UCC VISIT TRACKING (12 MO.) 06/09/2020 11:15 [facility] [place] TYPE: Emergency COMPLAINT: - URINE PROBLEM 04/17/2020 09:04 [facility] [place] TYPE: Emergency COMPLAINT: - WEAKNESS/FALL DIAGNOSES: - Unspecified atrial fibrillation - watermaster (current) use of anticoagulants - Personal history of transient ischemic attack (TIA), and cerebral infarction without residual deficits - Other computer terminal operator (current) drug therapy - Allergy status to penicillin - Fall on same level from slipping, tripping and stumbling with subsequent striking against unspecified object, initial encounter - Weakness - Allergy status to other drugs, medicaments and biological substances - Unspecified fracture of right acetabulum, initial encounter for closed fracture 02/23/2020 15:08 [facility] [place] TYPE: Emergency COMPLAINT: - FALL, HEAD AND ARM INJURY DIAGNOSES: - Personal history of transient ischemic attack (TIA), and cerebral infarction without residual deficits - watermaster (current) use of anticoagulants - Laceration without foreign body of right forearm, initial encounter - Other longterm (current) drug therapy - Unspecified atrial fibrillation - Fall on same level, unspecified, initial encounter - Laceration without foreign body, right knee, initial encounter - Allergy status to penicillin - Abrasion of other part of head, initial encounter - Allergy status to other drugs, medicaments and biological substances - Pain in right knee - Laceration without foreign body of right shoulder, initial encounter - jail (current) use of antithrombotics/antiplatelets 11/20/2019 08:59 [facility] [place] TYPE: Emergency COMPLAINT: - FALL DIAGNOSES: - Other longterm (current) drug therapy - Allergy status to penicillin - Allergy status to other drugs, medicaments and biological substances - Abrasion of other part of head, initial encounter - Fall on same level, unspecified, initial encounter - Laceration without foreign body of right forearm, initial encounter 08/14/2019 07:37 EW[facility] TYPE: Emergency COMPLAINT: - ABD PAIN DIAGNOSES: - Allergy status to penicillin - Unspecified atrial fibrillation - Other computer terminal operator (current) drug therapy - Allergy status to other drugs, medicaments and biological substances - jail (current) use of anticoagulants - Constipation, unspecified - Personal history of transient ischemic attack (TIA), and cerebral infarction without residual deficits INPATIENT VISIT TRACKING (12 MO.) [facility] DIAGNOSES: - Chronic atrial fibrillation, unspecified - Anemia, unspecified - Unspecified atrial fibrillation - Peripheral vascular disease, unspecified - Chronic diastolic (congestive) heart failure - Essential (primary) hypertension - Occlusion and stenosis of bilateral carotid arteries [email or web address]
--- NOTE | 2020-06-09 16:45 | NUR ---
89 YEAR OLD MALE PATIENT ADMITTED TO CCU FROM ED VIA STRETCH UNDER DR. ESPITIA WITH DX OF HYPOTENTION. UPON ADMIT PATIENT IS AWAKE, ALERT, ORIENTED. IS EXTREMLEY NEW [place]. C/O RIGHT HIP PAIN. HAD RECENT LINER FX OF RIGHT HIP. JOSEPH CATH PLACED IN ED PATIENT TOLD ED STAFF HE HAS NOT BEEN ABLE TO URINATE FOR 2 WEEKS. JOSEPH IS DRAINING LIGHT PINK URINE. ADMISSION PROCESS STARTED.
[2020-06-09] MEDS ORDERED: K-TAB ER20 MEQ PO (17:21)
--- NOTE | 2020-06-09 17:25 | NUR ---
NORCO GIVEN FOR C/O RIGHT HIP.
--- NOTE | 2020-06-09 18:40 | NUR ---
TOOK DINNER WELL. DENIES NAUSEA. RESTING AT THIS TIME.
--- NOTE | 2020-06-09 18:58 | NUR ---
RESTING AT THIS TIME. NO DISTRESS NOTED. REPORT TO NEXT SHIFT.
--- NOTE | 2020-06-09 19:23 | NUR ---
DR. ESPITIA UPDATED ON PATIENT U/O AND LABS, AND 3 BEATS OF VTACH. NO FUTHER ORDERS AT THIS TIME
--- NOTE | 2020-06-09 19:30 | NUR ---
SHIFT REPORT RECEIVED FROM SANDY MOONEY. PT APPEARS TO BE RESTING COMFORTABLY AT THIS TIME. NO APPARENT DISTRESS, RESPIRATIONS EVEN AND UNLABORED ON ROOM AIR.
--- NOTE | 2020-06-09 20:10 | NUR ---
DR. ESPITIA NOTIFIED OF WORSENING HYPOTENSION: 74/57(64). PT IS MENTATING APPROPRIATELY AND HIS URINE OUTPUT IS QUANTITY SUFFICIENT. NO NEW ORDERS AT THIS TIME EXCEPT TO NOTIFY MD IF BP CONTINUES TO WORSEN.
--- NOTE | 2020-06-09 20:30 | NUR ---
ASSESSMENT COMPLETED. PT IS EXTREMELY HARD OF HEARING. STATES PAIN HAS IMPROVED SINCE RECEIVING PRN NORCO, PT ASSISTED TO REPOSITION IN BED. HE IS ALERT AND ORIENTED, SLIGHLY FORGETFUL OF DATE. LUNGS CLEAR, RA. HR IRREGULAR. BOWEL TONES ACTIVE, DENIES NAUSEA. SKIN IS DRY AND FLAKY. DEEP EDEMA NOTED TO BLE, BILATERAL UNNA BOOTS IN PLACE. JOSEPH CARE PROVIDED, SOME EDEMA NOTED TO PENIS/SCROTUM. IV PATENT, SALINE LOCKED, DRESSING INTACT. DISCUSSED PLAN OF CARE WITH PT AND ALL QUESTIONS ANSWERED. CALL LIGHT WITHIN REACH.
--- NOTE | 2020-06-09 20:57 | NUR ---
DR. ESPITIA NOTIFIED OF WORSENING HYPOTENSION: 53/42 (47). PT CONTINUES TO MENTATE NORMALLY AND URINE OUTPUT REMAINS ADEQUATE. ORDERS RECEIVED TO BOLUS 250ML NS AND THEN RUN CONTINUOUSLY AT 125ML/HR.
--- NOTE | 2020-06-09 21:14 | NUR ---
BOLUS COMPLETED, BP RESPONDIN/57(64). WILL CONTINUE TO CLOSELY MONITOR.
--- NOTE | 2020-06-09 22:43 | NUR ---
PT ASSISTED TO REPOSITION IN BED. WARM BLANKETS PROVIDED PER REQUEST. CONTINUES TO MENTATE APPROPRIATELY.
--- NOTE | 2020-06-09 23:05 | NUR ---
PT CALLED TO REPORT THAT HIS LEFT HEEL WAS "BURNING". ELEVATED HEELS OFF BED WITH PILLOWS AND 2 TABS NORCO FOR 5/10 PAIN.
--- NOTE | 2020-06-10 00:32 | NUR ---
ASSESSMENT COMPLETED. PT CONTINUES TO REPORT BURNING IN LEFT HEEL. ASSISTED HIM TO REPOSITION IN BED AND AGAIN ELEVATED HEELS OFF BED. LUNGS REMAIN CLEAR ON RA. HR IRREGULAR. BOWEL TONES ACTIVE, NO COMPLAINTS OF NAUSEA. IV PATENT AND INTACT, FLUIDS INFUSING WNL. JOSEPH PATENT. NO FURTHER REQUESTS AT THIS TIME. CALL LIGHT WITHIN REACH.
--- NOTE | 2020-06-10 02:00 | NUR ---
IN TO CHECK URINE OUTPUT, REMAINS QUANTITY SUFFICIENT. PT CONTINUES TO REST WITH EYES CLOSED, NO APPARENT DISTRESS. RESPIRATION EVEN AND UNLABORED.
--- NOTE | 2020-06-10 04:00 | NUR ---
ASSESSMENT COMPLETED. NO COMPLAINTS OF PAIN AT THIS TIME. LUNGS REMAIN CLEAR ON ROOM AIR. HR IRREGULAR. BOWEL TONES ACTIVE, DENIES NAUSEA. PT SLIGHTLY FORGETFUL OF SURROUNDINGS, STATES HE IS READY TO GET DRESSED AND GO HOME, RE-ORIENTED TO SURROUNDINGS AND PLAN OF CARE. EDEMA IN BLE APPEARS TO BE IMPROVING, STILL REMAINS GREATER IN LEFT THAN RIGHT. IV REMAINS PATENT AND INTACT, FLUIDS INFUSING WNL. JOSEPH PATENT, URINE LOOKING YELLOW AND NO LONGER PINK-TINGED. FRESH WATER PROVIDED PER REQUEST. LOTION APPLIED TO HANDS. DENIES FURTHER REQUESTS, CALL LIGHT WITHIN REACH.
--- NOTE | 2020-06-10 06:10 | NUR ---
PT REPORTS 10/10 BURNING PAIN IN FEET, 2 TABS NORCO GIVEN, HEELS ELEVATED OFF BED, AND FEET UNCOVERED PER REQUEST. BREAKFAST ORDER RECEIVED. NO FURTHER REQUESTS AT THIS TIME.
--- NOTE | 2020-06-10 07:37 | NUR ---
Lying in bed with head of bed slightly elevated. Wakes to voice. Oriented, but forgetful. States he is feeling better this AM and would like to go home. Assessment completed. Lower extremities remain wrapped at this time. Bed rails up X2, call light in reach.
--- NOTE | 2020-06-10 07:53 | NUR ---
Imaging in to complete Echo at this time.
--- NOTE | 2020-06-10 09:05 | NUR ---
Oral care completed by patient. Dr. Reyes in to see patient at this time. Informed Dr. Reyes of positive blood cultures. Also informed matt held this AM for blood pressures. Patient informed he will be staying and starting on antibiotics by Dr. Reyes.
--- NOTE | 2020-06-10 09:35 | NUR ---
wiped pt. down with cool wash cloth and applied lotion over entire body. no other needs at this time.
--- NOTE | 2020-06-10 10:06 | NUR ---
Vancomycin infusing. Blood pressure 53/36 MAP 43. Unable to obtain manual BP after multiple attempts. Dr. Reyes notified. See orders.
--- NOTE | 2020-06-10 10:12 | NUR ---
Spoke with Dr. Reyes regarding possible need for mid or central line. No orders for either at this time.
--- NOTE | 2020-06-10 10:35 | NUR ---
IV started X1 attempt. Tolerated well. See EMAR for medication administration. Verified norepinephrine rate with SANDY Pollock.
--- NOTE | 2020-06-10 10:52 | NUR ---
LEVOPHED DOSE MAINTAINED AT THIS TIME.
--- NOTE | 2020-06-10 11:00 | NUR ---
SPOKE WITH PATIENT IN ROOM. PATIENT ALERT AND VERY PLEASANT. PATIENT VERY [place] AND HAS HARD TIME WITH MASK COVERING MOUTHS SO HE CANNOT SEE LIPS MOVE. PATIENT LIVES WITH IN HOME WITH SOME STAIRS. HE STATES HE USES A CANE AND WALKER DAILY. HE STATES HE CAN DRIVE, ALTHOUGH HASN'T BEEN LATELY. ADULT SON LIVES IN ARE[place] AND HE DRIVES THEM. SON ALSO HELPS WITH SHOPPING NEEDS. PATIENT STATES OTHER ADULT KIDS LIVE OUT OF TOWN. HE HAS HELP FROM NEIGHBORS ALSO WITH YARD WORK, ETC. HE STATES THEY HAVE TUB/SHOWER COMBO. HE STATES HE HAS HAD MULTIPLE FALLS IN THE PAST, SOME VERY RECENT. HE PLANS TO RETURN HOME AT DISCHARGE. HE STATES HE IS NOT OPPOSED TO HOME HEALTH IF NEEDED. HE STATES THEY HAVE NO WORRIES FINANCIALLY FOR MEDS, FOOD OR UTILITIES AND STATES IF NEEDED HE COULD PAY FOR SOME CARE. HE IS A , BUT IS NOT SIGNED UP ANYMORE FOR HEALTH CARE WITH THEM. HE IS AWARE HE CAN CALL THEM AND POSSIBLY GET BENEFITS. PATIENT HAS NO QUESTIONS AT THIS TIME. PATIENT STATES HE KNOWS HE HAS "SOME INFECTION" BUT STATES HE DOESN'T FEEL "ALL THAT SICK". CM WILL CONTINUE TO FOLLOW.
--- NOTE | 2020-06-10 11:43 | NUR ---
Norepinephrine rate decreased to 3mcg/min.
--- NOTE | 2020-06-10 12:09 | NUR ---
Assist to sit up in bed to eat at this time. Denies other needs.
--- NOTE | 2020-06-10 12:50 | NUR ---
Sitting up in bed, ate lunch. Remains on norepinephrine at 3mcg/min. Remains alert and oriented at this time. Continues with generalized weeping and edema.
--- NOTE | 2020-06-10 13:00 | NUR ---
Norepinephrine increased to 5mcg/min IV. Denies other needs at this time. IV site remains WNL.
--- NOTE | 2020-06-10 14:07 | NUR ---
Norepinephrine decreased to 3mcg/min at this time. Resting with eyes closed, respirations even and unlabored. Call light in reach, bed rails up X2. IV site remains WNL.
--- NOTE | 2020-06-10 14:40 | NUR ---
PATIENT IN BED, AWAKE, ALERT, HARD OF HEARING. NO VISITORS IN ROOM AT THIS TIME. CONSULT FOR DIET EDUCATION FOR CHF. PATIENT HAS HISTORY OF AFIB ON WARFARIN, STROKE IN 2013, R CAROTID ENDARTERECTOMY, R FEMORAL ARTERY STENT, R FEMORAL ARTERY BYPASS, AND URINE RETENTION. STATES HE HAS BEEN LOOKING AT THE NUTRITION FACTS LABEL ALREADY. HE DOES EAT CANO'S SOUP AND WASN'T AWARE IT WAS HIGH IN SODIUM. HE DOES NOT EAT HAM, WAITE, OR SAUSAGE. AVOIDS BRAN FLAKES AND RAISIN BRAN. LIKES MULTI-GRAIN TOAST AND OATMEAL FOR BREAKFST. RARELY EATS OUT. LIVES WITH HIS , [place]. EXPLAINED TO PATIENT HE NEEDS TO EAT LOWER SODIUM FOODS. SHOWED HIM SOME OPTIONS FOR LOWER SODIUM SOUP. EXPLAINED TO BE CAREFUL OF SALT SUBSTITUTES BECAUSE THEY ARE TYPICALLY POTASSIUM CHLORIDE SO THEY ARE HIGH IN POTASSIUM. HE SAID HE TAKES A POTASSIUM PILL EVERY DAY AT HOME. I LEFT HIM WITH A FOLDER OF LOW-SODIUM SNACK IDEAS, HIGH-SODIUM FOODS TO AVOID, HANDOUT ON READING FOOD LABLES, HOW TO FLAVOR FOOD WITHOUT USING SALT, AND WEBSITES AND COOKBOOKS FOR LOW-SODIUM RECIPES. I EXPLAINED HE CAN HAVE 6OO MG OF SODIUM PER MEAL AT HOME. HE SAID "THAT'S NOT VERY MUCH." HE APPRECIATED ME STOPPING BY TO EXPLAIN THE LOW-SODIUM DIET. FOLDER LEFT AT BEDSIDE WITH MY CONTACT INFO.
--- NOTE | 2020-06-10 15:05 | NUR ---
wiped pt down . changed gown changed bed linens.
--- NOTE | 2020-06-10 15:16 | NUR ---
Generalized edema with weeping. Gown and linens changed. Continues on norepinephrine at 3mcg/min. IV site remains WNL. Remains on IV fluids as prescribed. PRN analgesics given. Denies other needs at this time. Call light in reach, bed rails up X2.
--- NOTE | 2020-06-10 15:35 | NUR ---
Norepinephrine increased to 5mcg/min. Patient resting in bed, eyes closed. Respirations even and unlabored. Call light in reach, bed rails up X2. Allowed to rest.
--- NOTE | 2020-06-10 16:05 | NUR ---
Continues on norepinephrine at 5mcg/min with NS infusing as prescribed. Assessment completed. Continues with generalized weeping and edema. Denies shortness of breath. States pain has improved with analgesics. Denies other needs, Call light in reach, bed rails up X2.
--- NOTE | 2020-06-10 17:12 | NUR ---
Repositions in bed to eat supper. Norepinephrine infusing, NS infusing. BP MAP of 80 at this time. No changes. Call light in reach, bed rails up X2.
--- NOTE | 2020-06-10 18:04 | NUR ---
NOREPINEPHRINE DRIP INCREASED TO 7MCG/MIN. Patient resting quietly in bed, respirations even and unlabored. Wakes to voice.
--- NOTE | 2020-06-10 19:20 | NUR ---
SHIFT REPORT RECEIVED FROM SANDY THORNE. LEVOPHED TITRATED TO 5MCG/MIN FOR BP: 111/86(95). PT RESTING COMFORTABLY AT THIS TIME WITH EYES, CLOSED. NO APPARENT DISTRESS. RR:19.
--- NOTE | 2020-06-10 20:00 | NUR ---
DR. ESPITIA IN UNIT TO CHECK ON PT'S. UPDATED HER ON PT'S UO AND CURRENT LEVOPHED SETTING. VERBAL ORDER RECEIVED FOR ONE TIME DOSE OF 20MG IV LASIX. WILL CONTINUE TO TITRATE LEVOPHED ORDERED AND ATTEMPT TO WEAN OFF IF POSSIBLE.
--- NOTE | 2020-06-10 20:30 | NUR ---
ASSESSMENT COMPLETED. DENIES PAIN AND NAUSEA AT THIS TIME. LUNGS CLEAR, RA. HR IRREGULAR, LEVOPHED CONTINUES AT 5MCG/MIN. BOWEL TONES ACTIVE. SKIN IS MOIST, GENERALIZED WEEPING EDEMA; DIFFUSE RED RASH ALSO NOTED. COCCYX APPEARS MACERATED, BARRIER CREAM APPLIED AND PT REPOSITIONED ONTO RIGHT SIDE AND ENCOURAGED TO REPOSITION FREQUENTLY. UNNA BOOTS REMAIN IN PLACE, EDEMA TO BLE LEFT GREATER THAN RIGHT. IV SITES INTACT, BLOOD RETURN PRESENT IN SITE WITH LEVOPHED INFUSING. JOSEPH PATENT, CATH CARE PROVIDED, PENILE/SCROTAL EDEMA NOTED. PT DENIES FURTHER REQUESTS AT THIS TIME, CALL LIGHT AND BELONGINGS WITHIN REACH.
--- NOTE | 2020-06-10 20:45 | NUR ---
Q15 VITALS CAUGHT UP ON FOR THE RN AT THIS TIME
--- NOTE | 2020-06-10 21:49 | NUR ---
LEVOPHED DRIP TITRATED TO 7MCG/MIN FOR BP:77/53(58).
--- NOTE | 2020-06-10 22:24 | NUR ---
LEVOPHED DRIP TITRATED TO 5MCG/MIN FOR BP: 113/73(83). PT SLEEPING, NO APPARENT DISTRESS. RESPIRATIONS EVEN AND UNLABORED, RR:16.
--- NOTE | 2020-06-10 23:33 | NUR ---
VITALS CAUGHT UP WITH FOR RN AT THIS TIME
--- NOTE | 2020-06-10 23:50 | NUR ---
TEMP ADDED TO LATEST SET OF VITALS PER RN, VITALS ARE CHARTED AT THIS TIME
--- NOTE | 2020-06-11 00:06 | NUR ---
ASSESSMENT COMPLETED. PT CONTINUES TO DENY PAIN, SOB, NAUSEA. LUNGS REMAIN CLEAR ON RA. HR IRREGULAR, RATE 70'S, LEVOPHED DRIP CONTINUES AT 5MCG/MIN. IV SITE WITH LEVOPHED CONTINUES TO HAVE BLOOD RETURN, BOTH IV SITES INTACT. JOSEPH PATENT, URINE APPEARS DILUTE. NO FURTHER REQUESTS OR COMPLAINTS AT THIS TIME. CALL LIGHT AND BELONGINGS WITHIN REACH.
--- NOTE | 2020-06-11 00:26 | NUR ---
LEVOPHED TITRATED TO 7MCG/MIN FOR BP:67/54(60).
--- NOTE | 2020-06-11 01:05 | NUR ---
LEVOPHED TITRATED TO 5MCG/MIN FOR BP:148/78(97).
--- NOTE | 2020-06-11 01:18 | NUR ---
VITALS CHARTED AT THIS TIME
--- NOTE | 2020-06-11 01:50 | NUR ---
LEVOPHED DRIP TITRATED TO 3MCG/MIN FOR BP:118/95(103).
--- NOTE | 2020-06-11 02:07 | NUR ---
LEVOPHED DRIP TITRATED TO 5MCG/MIN FOR BP: 75/56(64).
--- NOTE | 2020-06-11 02:18 | NUR ---
PT VITALS CHARTED AT THIS TIME
--- NOTE | 2020-06-11 03:27 | NUR ---
VITAL SET CHARTED AT THIS TIME
--- NOTE | 2020-06-11 04:20 | NUR ---
LEVOPHED DRIP TITRATED TO 3MCG/MIN FOR BP:107/80(86). ASSESSMENT COMPLETED AND UNCHANGED. LUNGS REMAIN CLEAR ON RA. NO COMPLAINTS OF PAIN, NAUSEA, OR SOB. IV SITES INTACT AND PATENT, SITE WITH LEVOPHED CONTINUES TO HAVE BLOOD RETURN. JOSEPH REMAINS PATENT OF DILUTE URINE. PT DENIES REQUESTS OR COMPLAINTS AT THIS TIME.
--- NOTE | 2020-06-11 04:30 | NUR ---
VITAL SETS CHARTED AT THIS TIME
--- NOTE | 2020-06-11 04:36 | NUR ---
LEVOPHED DRIP TITRATED TO 5MCG/MIN FOR BP:77/56(64).
--- NOTE | 2020-06-11 05:45 | NUR ---
VITAL SETS ARE CHARTED ST THIS TIME
--- NOTE | 2020-06-11 06:35 | NUR ---
AFTER LABS WERE DRAWN, ASSISTED OUT OF BED FOR STANDING WEIGHT AND THEN UP TO CHAIR. PT TOLERATED FAIR, DID BECOME TACHYCARDIC UP TO 140'S. AFTER ACTIVITY AND INCREASE IN HR/BP LEVPHED DRIP WAS TITRATED FOLLOWS: 0607: DECREASED TO 3MCG/MIN FOR BP:143/81(100) 0615: DECREASED TO 1MCG/MIN FOR BP:121/81(87) 0630: INCREASED TO 3MCG/MIN FOR BP:76/59(66) PT CONTINUES TO SIT UP IN CHAIR. NEW GOWN AND BED LINENS PROVIDED. BELONGINGS AND CALL LIGHT WITHIN REACH.
--- NOTE | 2020-06-11 06:39 | NUR ---
IN RM TO ASST PT WITH PILLOW UNDER LOWER LEGS, FEET UP IN CHAIR AT THIS TIME, NO FURTHER NEEDS AT THIS TIME
--- NOTE | 2020-06-11 07:45 | NUR ---
Sitting up in bed. Alert and oriented. States he has been awake since 0400 this AM. Continues on norepinephrine drip at this time. BP within parameters. Complaints of burning in feet. Improves with elevation. Denies other needs at this time. Call light in reach, bed rails up X2.
--- NOTE | 2020-06-11 08:00 | NUR ---
PATIENT AWAKE IN CHAIR WENT BACK TO BED. WAITING FOR BREAKFAST. CALL LIGHT WITHIN REACH NO FUTHER NEEDS AT THIS TIME.
--- NOTE | 2020-06-11 08:26 | NUR ---
Medications administered as prescribed. Takes without difficulty. Call light in reach, bed rails up X2. Small skin tear to Right upper back/shoulder noted. Cleansed with wound wash and steri strip applied to site. Denies other needs at this time. IV sites remain WNL, IV medication infusing. Call light in reach and bed rails up X2.
--- NOTE | 2020-06-11 08:30 | NUR ---
PATIENT HAD BREAKFAST AND WANTED TO DO AM CARE. BRUSHED TEETH AND LINEN WAS CHANGED BY GOODS LAYER. CALL LIGHT WITHIN REACH NO FUTHER NEEDS AT THIS TIME.
--- NOTE | 2020-06-11 10:31 | NUR ---
Bed bath being completed by JERAMIE Souza. IV vancomycin administered as prescribed. Denies other needs.
--- NOTE | 2020-06-11 10:55 | NUR ---
PATIENT HAD A FULL BAD BATH. CALL LIGHT WITHIN REACH NO FUTHER NEEDS AT THIS TIME.
--- NOTE | 2020-06-11 12:17 | NUR ---
PATIENT IS SITTING UP IN BED EATING LUNCH. CALL LIGHT WITHIN REACH AND NO FUTHER NEEDS AT THIS TIME.
--- NOTE | 2020-06-11 15:51 | NUR ---
Patient resting in bed with eyes closed. Opens eyes to voice. Assessment completed. Denies needs at this time. Continues with IV fluids infusing. No longer of norepinephrine infusion at this time. Call light in reach, bed rails up X2.
--- NOTE | 2020-06-11 16:00 | NUR ---
SITTING UP IN BED. DENIES NEEDS AT THIS TIME. ASSESSMENT COMPLETED.
--- NOTE | 2020-06-11 17:45 | NUR ---
Dr. Mcpherson in to change dressings to feet.
--- NOTE | 2020-06-11 19:45 | NUR ---
PATIENT ASSESSMENT COMPLETED. RIGHT IV SITE LEAKING WHEN FLUSHED. DC'D BY SANDY WATT. PT. REPORTS 03/31 HEADACHE. PRN TYLENOL GIVEN. EDEMA PRESENT IN LEFT ARM AND LEGS BILAT. PATIENT ASSISTED WITH REPOSITIONING WITH PILLOWS. ALERT AND ORIENTED. JOSEPH EMPTIED OF 95ML CLEAR YELLOW URINE. NOREPINEPHRINE TITRATED TO 3MCG. PATIENT LEFT RESTING IN BED WITH CALL LIGHT IN REACH.
--- NOTE | 2020-06-11 19:49 | NUR ---
PT AWAKENS EASILY. BP 75/49. LEVOPHED RESTARTED 2MG/MIN. PT IS ALERT. C/O DISCOMFORT L FOOT FROM THE WIEGHT OF THE BLANKETS. HOOP PLACED AT FOOT OF BED. DR MAYER AWARE OF LEVOPHED BEING RESTARTED.
--- NOTE | 2020-06-11 21:45 | NUR ---
NOREPINEPHRINE TITRATED TO 3MCG. JOSEPH EMPTIED OF 80ML OF CLEAR YELLOW URINE.
--- NOTE | 2020-06-11 22:00 | NUR ---
NOREPINEPHRINE TITRATED TO 3MCG.
--- NOTE | 2020-06-11 22:15 | NUR ---
PATIENT USED CALL LIGHT APPROPRIATELY TO REQUEST WARM BLANKET. DENIES PAIN. JOSEPH EMPTIED OF 60 ML CLEAR YELLOW URINE.
--- NOTE | 2020-06-11 23:05 | NUR ---
PATIENT ASLEEP. JOSEPH EMPTIED OF 30ML CLEAR YELLOW URINE.
--- NOTE | 2020-06-11 23:27 | NUR ---
IV FLUID BAG REPLACED. PT. REPORTS BEING COLD AND BROUGHT A WARM BLANKET. TEMP WAS 97.3. PT. DENIED FURTHER NEEDS AND LEFT RESTING WITH CALL LIGHT IN REACH.
--- NOTE | 2020-06-12 00:15 | NUR ---
PATIENT ASSESSMENT COMPLETED. PT. REPORTS 9/10 PAIN IN HIS FEET. GIVEN 1 TAB NORCO. REMOVED BLANKETS FROM FEET. LEFT AND RIGHT ARM WEEPING. BP CUFF SATURATED AND REPLACED. IV SITES WNL. PT. JOSEPH EMPTIED OF 25ML CLEAR YELLOW URINE.
--- NOTE | 2020-06-12 02:03 | NUR ---
PATIENT REPORTS BEING ITCHY ALL OVER. ASSISTED WITH APPLYING LOTION AND REMOVING BLANKETS. JOSEPH EMPTIED OF 25ML CLEAR YELLOW URINE. PT. DENIES PAIN.
--- NOTE | 2020-06-12 04:31 | NUR ---
PATIENT ASSESSMENT COMPLETED. JOSEPH EMPTIED OF 90ML CLEAR YELLOW URINE. PT. DENIES PAIN AND STATED THAT THE NORCO HELPED A LOT BUT HE CANNOT SLEEP. DENIED FURTHER NEEDS AND LEFT RESTING IN BED.
--- NOTE | 2020-06-12 06:22 | NUR ---
PATIENT SLEEPING IN BED. JOSEPH EMPTIED OF 40ML CLEAR YELLOW URINE. IV PUMP CLEARED OF 1086ML INFUSED.
--- NOTE | 2020-06-12 07:30 | NUR ---
REPORT RECIEVED. PATIENT SITTNG UP IN BED. C/O SKIN IRRITATION. LOTION APPLIED ALL OVER BODY.
--- NOTE | 2020-06-12 08:00 | NUR ---
ASSESSMENT DONE. DENIES NEED FOR PAIN MEDICATIONS. IVF INFUSING AT 50 ML/HR. LEVOPHED GTT AT 3 MCG/MIN. C/O BILAT FOOT PAIN. HOB ELEVATED. READY FOR BREAKFAST.
--- NOTE | 2020-06-12 08:00 | NUR ---
PATIENT EATING BREAKFAST IN ROOM. CALL LIGHT WITHIN REACH. NO FUTHER NEEDS AT THIS TIME.
--- NOTE | 2020-06-12 09:10 | NUR ---
OOB TO CHAIR WITH ASSIST. LEGS WEAK.
--- NOTE | 2020-06-12 10:00 | NUR ---
PATIENT LINENS CHANGED. FACE WASHED. ORAL CARE. AM CARE DONE. CALL LIGHT WITHIN REACH. NO FUTHER NEEDS AT THIS TIME.
--- NOTE | 2020-06-12 10:10 | NUR ---
BACK TO BED WITH ASSIST. C/O ALAS AND BILAT FOOT PAIN RATES 4/10.
--- NOTE | 2020-06-12 11:33 | NUR ---
RESTING IN BED, REMAINS ON LEVOPHED GTT AT 3 MCG/MIN.
--- NOTE | 2020-06-12 12:36 | NUR ---
DR. MAYER HERE TO SEE PATIENT, BP-112-69. ORDERS RECIEVED TO TURN OFF LEVOPHED GTT. THIS DONE. JOSEPH CATH EMPTIED FOR 100 ML URINE. BLOOD CULTURES ORDERED.
--- NOTE | 2020-06-12 14:09 | NUR ---
DR. MAYER AWARE OF HYPOTENSION. ORDERS RECIEVED TO RESTART LEVOPHED GTT. THIS DONE.
--- NOTE | 2020-06-12 14:10 | NUR ---
levophed gtt at 1.5 mcg/min.
--- NOTE | 2020-06-12 14:30 | NUR ---
ORDERS RECIEVED FOR PICC LINE.
--- NOTE | 2020-06-12 15:30 | NUR ---
RADHA HERE TO PLACE CENTRAL LINE.
--- NOTE | 2020-06-12 17:15 | NUR ---
AWAITING PICC LINE USE FROM RADIOLOGIST.
--- NOTE | 2020-06-12 17:40 | NUR ---
TOOK DINNER WELL. LEVOPHED GTT AT 1 MCG/MIN. INFUSING TO RIGHT UPPER ARM PICC LINE.
--- NOTE | 2020-06-12 17:49 | NUR ---
LE 1500: PHONE CALL RECEIVED FROM HAND CANDY CUTTER REGARDING PICC LINE ORDER FOR THIS PATIENT. EMR REVIEWED - NO CONTRAINDICATIONS NOTED. PATIENT IS INTERVIEWED AND INFORMED CONSENT IS OBTAINED. 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 CEPHALIC VEIN LOCATED AND IS LARGER THAN 4 POLISH. ACCESS IS GAINED ON THE 1ST ATTEMPT. RIGHT UPPER ARM PICC LINE IS PLACED USING STERILE TECHNIQUE. RESISTANCE IS MET WHEN INTRODUCING THE PICC LINE ITSELF. WITH PATIENT TOUCHING HIS RIGHT EAR TO HIS RIGHT SHOULDER, THE PICC LINE ADVANCES EASILY. PCXR TAKEN FOR CONFIRMATION OF PICC LINE PLACEMENT AND REPORT IS REVIEWED. PICC LINE IS PLACED SATISFACTORILY. REPORT GIVEN TO JESICA GUERRREO RN AND SHE VERBALIZES UNDERSTANDING.
--- NOTE | 2020-06-12 18:54 | NUR ---
NORCO GIVEN FOR ALAS 11/28.
--- NOTE | 2020-06-12 19:28 | NUR ---
REPORT TO NEXT SHIFT. REMAINS ON LEVOPHED GTT AT 1 MCG/MIN. GUERLINE MOCTEZUMA
--- NOTE | 2020-06-12 20:00 | NUR ---
PATIENT ASSESSMENT COMPLETED. LUNGS CLEAR THROUGHOUT. PATIENT DENIES PAIN. 15ML CLEAR YELLOW URINE EMPTIED FROM JOSEPH. ALLERGY BRACELET TIGHT ON LEFT ARM AND WAS REPLACED. IV AND PICC SITES WNL. PATIENT STATES THAT HE WANTS TO SLEEP AND WAS TIRED. PT. LEFT RESTING IN BED WITH CALL LIGHT IN REACH.
--- NOTE | 2020-06-12 21:36 | NUR ---
PATIENT MEDS GIVEN. PATIENT STATED HE WAS COLD AND WARM BLANKETS PROVIDED. TEMP. 97.2. PT. ALSO STATED HE IS CONCERNED FOR HIS WHO IS PARTIALLY BLIND AND HOME ALONE. RT. ARM TEAR REDRESSED AND COBAND REMOVED DUE TO SWELLING. PT. LEFT RESTING IN BED WITH CALL LIGHT IN REACH.
--- NOTE | 2020-06-12 21:48 | NUR ---
PT. LACROSSE PLAYER PADS CHANGED AND PT. ASSISTED WITH REPOSITIONING.
--- NOTE | 2020-06-13 00:54 | NUR ---
PT. JOSEPH EMPTIED 25ML CLEAR YELLOW URINE. PT STATED THAT A YOUNG MAN WAS STANDING BY THE WINDOW AND WANTED TO CHECK ON HIM. PT. ORIENTED TO SELF AND PLACE. BLOOD PRESSURE CUFF REPOSITIONED.
--- NOTE | 2020-06-13 01:21 | NUR ---
PATIENT USED CALL LIGHT APPROPRIATELY TO PUT HIS BP CUFF ON. HIS GOWN AND PILLOW WERE BLOODY AND SKIN TEARS WERE FOUND ON LEFT CHEST AND LEFT SHOULDER. GOWN AND PILLOW CASE CHANGED AND ALEYVIN DRESSINGS APPLIED. PT. REPOSITIONED WITH PILLOWS.
--- NOTE | 2020-06-13 02:09 | NUR ---
PATIENT REPORTS 9/10 PAIN IN FEET THAT IS BURNING. GIVEN PRN NORCO. JOSEPH EMPTIED OF 35ML CLEAR YELLOW URINE. PT. DENIED FURTHER NEED AND LEFT RESTING IN BED.
--- NOTE | 2020-06-13 04:24 | NUR ---
PATIENT ASSESSMENT COMPLETED. PT. WAS ALERT AND SCRATCHING HIS ARMS AND LEGS. DENIES PAIN, BUT STATES THAT HE IS VERY ITCHY. AUDIBLE EXERTIONAL WHEEZING. LUNGS SOUNDS HAD WHEEZES IN THE UPPER LOBES BILAT. AND CRACKLES IN LEFT LOWER LOBE. PT. ORIENTED AND ALERT. SCRATCHED HIS LEGS UNTIL THEY BLED AND HAD TEARS BEHIND HIS RIGHT CALF. CLEANED AND CHANGED BEDDING. PATIENT ASKED NOT TO SCRATCH AND HELPED WITH APPLYING CREAM TO HIS LEGS AND ARMS. JOSEPH EMPTIED OF 25ML. BOTH ARMS CONTINUE TO WEEP. PT. LEFT RESTING IN BED.
--- NOTE | 2020-06-13 04:47 | NUR ---
PATIENT ASSISTED WITH REPOSITIONING. COBAND REMOVED FROM PICC SITE. PICC SITE HAD MOISTURE UNDER DRESSING. PICC FLUSHED WELL AND HAD GOOD BLOOD RETURN. APPEARS TO BE WEEPING UNDER THE DRESS AND NOT LEAKING. SANDY WATT ASSESSED PICC WELL. WILL CONTINUE TO MONITOR.
--- NOTE | 2020-06-13 05:34 | NUR ---
PATIENT STATED THAT HIS HEELS WERE HURTING. REMOVED SOCKS AND REAPPLIED BOOTS. BLISTER ON HEEL ON BACK OF LEFT HEEL IS STILL PRESENT WITH SKIN INTACT. JOSEPH EMPTIED OF 20ML URINE. PATIENT LEFT RESTING IN BED DENYING FURTHER NEEDS.
--- NOTE | 2020-06-13 05:57 | NUR ---
PATIENT USED CALL LIGHT APPROPRIATELY FOR ASSISTANCE TO REMOVE BIPAP. PLACED ON 02 2L NC. ASSISTED TO BEDSIDE COMMODE. DESAT TO 80 AND HR INCREASED TO 120S. 02 SAT INCREASED TO 95% AFTER REST. PT. REQUESTED AND BROUGHT COFFEE. LEFT RESTING IN BED WITH CALL LIGHT.
--- NOTE | 2020-06-13 07:48 | NUR ---
REPORT RECIEVED. PATIENT IN CHAIR, IS SOMEWHAT RESTLESS. LEVOPHED GTT DECREASED TO 0.7 MCG/MIN. JOSEPH CATH PATIENT. ASSESSMENT DONE. IVF INFUSING AT 50 ML/HR. IS MORE FORGETFUL THIS MORNING.
--- NOTE | 2020-06-13 09:00 | NUR ---
TOOK BREAKFAST WELL. BACK TO BED WITH ASSIST. LEVOPHED GTT AT 0.7 MCG/MIN.
--- NOTE | 2020-06-13 09:27 | NUR ---
bed linens changed. room picked up garbages emptied.
--- NOTE | 2020-06-13 10:50 | NUR ---
DR. MAYER HERE TO SEE PATIENT. LEVOPHED TO OFF PER .
--- NOTE | 2020-06-13 11:00 | NUR ---
Patient's vancomycin trough = 9.3. Give 1000mg then 750mg iv q 12 hrs
--- NOTE | 2020-06-13 13:00 | NUR ---
REMAINS OFF LEVOPHED GTT. SYSTOLIC BP> 100. DENIES PAIN. SITTING UP IN BED READY TO EAT LUNCH. IVF REMAIN AT 50 ML/HR.
--- NOTE | 2020-06-13 15:00 | NUR ---
UP TO COMMODE WITH ASSIST TO EXPELL MED BROWN STOOL. BACK TO BED W/O INCIDENT.
--- NOTE | 2020-06-13 15:30 | NUR ---
INC OF LQ STOOL, BACK TO COMMODE WITH ASSIST. PATIENT IS VERY FRUSTRATED REGARDING BEING INCONT.
--- NOTE | 2020-06-13 16:05 | NUR ---
LASIX 20 MG IV GIVEN PER ORDERS.
--- NOTE | 2020-06-13 16:30 | NUR ---
HAS BEEN UP TO COMMODE TO EXPELL SEVERAL LIQUID WITH PARTLY SOLID STOOL. REFUSING DINNER. DR. MAYER UP DATED ON PATIENT, ORDERS RECIEVED.
--- NOTE | 2020-06-13 16:50 | NUR ---
NO CHANGES WITH PATIENT TODAY. PLAN IS STILL HOPEFUL DISCHARGE TO HOME. PATIENT HAS BEEN UP TO THE CHAIR FOR MEALS AND USING BSC WITH ASSIST. CM WILL CONTINUE TO FOLLOW.
--- NOTE | 2020-06-13 18:30 | NUR ---
DR. MAYER UPDATED ON MOST CURRENT LABS, MAG TO BE ORDERED.
--- NOTE | 2020-06-13 18:56 | NUR ---
MAG HUNG ORDERED. PATIENT SLEEPING, NO DISTRESS NOTED.
--- NOTE | 2020-06-13 20:30 | NUR ---
REPORT RECEIVED FROM SANDY MOONEY. PATIENT ASSESSMENT COMPLETED. PT. DENIES PAIN AND STATES THAT HE IS SLEEPY. LEFT ARM LARGER THAN RIGHT BUT DRY. PICC SITE WNL WITH MAGNESIUM RUNNING. LUNGS DIM IN BASES. PT. ORIENTED TO SELF AND PLACE. LEFT HEEL BLISTER COVERED WITH ALEVYN PAD AND BOOT. JOSEPH EMPTIED OF 450ML CLEAR YELLOW URINE. PATIENT LEFT RESTING IN BED WITH CURTAIN OPEN IN VIEW OF NURSES STATION.
--- NOTE | 2020-06-13 22:31 | NUR ---
PATIENT ASLEEP AND RESPIRATIONS EVEN AND UNLABORED. JOSEPH EMPTIED OF 325ML CLEAR, YELLOW URINE. PT. LEFT RESTING IN BED WITH CURTAIN OPEN
--- NOTE | 2020-06-13 23:05 | NUR ---
PATIENT STATES THAT HIS FOOT IS HURTING. BOOTS REPOSTIONED ON LT. FOOT. PT. DENIES NEED FOR NORCO. WILL CONTINUE TO MONITOR.
--- NOTE | 2020-06-14 00:15 | NUR ---
PATIENT ASSESSMENT COMPLETED. REPORTS 10/10 PAIN IN FEET BILAT. BOOTS REMOVED AND FEET ASSESSED. WOUNDS AND WERE DRESSING C.D.I. HEEL PROTECTOR BOOTS REPLACED ON BOTH FEET. NORCO ADMINISTERED. JOSEPH EMPTIED OF 185 DILUTE URINE. PT. DROWSY, BUT ORIENTED. PICC SITE WNL. PT. LEFT RESTING IN BED AND DENIED FURTHER NEEDS.
--- NOTE | 2020-06-14 02:33 | NUR ---
PATIENT JOSEPH EMPTIED AND PATIENT AWOKE. STATED HE IS STILL HAVING PAIN IN HIS FEET. ASSISTED WITH REPOSITIONED AND PATIENT WENT BACK TO SLEEP.
--- NOTE | 2020-06-14 03:30 | NUR ---
PATIENT SEEN SCRATCHING HIS ARMS FROM THE NURSES STATION. DUE TO SCRATCHING, NEW SKIN TEARS PRESENT ON BOTH HANDS AND BLEEDING. HANDS CLEANED AND DRESSED. LOTION APPLIED TO UPPER BODY. AUDIBLE EXERT. WHEEZES PRESENT. LUNGS SOUNDED DIM. IN UPPER LEFT LOBE WITH FINE CRACKLES IN LOWER LEFT LOBE. PT. ASSISTED WITH REPOSITIONING. HE STATED HE IS READY TO , BUT IS LIVING TO TAKE CARE OF WHO IS ALMOST BLIND. PATIENT MORE CALM AND NO LONGER SCRATCHING.
--- NOTE | 2020-06-14 03:40 | NUR ---
DR MAYER NOTIFIED OF AUDIBLE WHEEZES AND TIGHT BREATH TONES. PT ALSO RESTLESS AND SCRATCHING. WILL BREAK SKIN WITH VIGOROUS SCRATCHING. TR RN AT BEDSIDE CALMING PT AND USING LOTION TO HELP WITH ITCHING.
--- NOTE | 2020-06-14 04:00 | NUR ---
GIVEN 20MG LASIX IV. IS CALMER.
--- NOTE | 2020-06-14 05:05 | NUR ---
JOSEPH EMPTIED OF 360ML CLEAR YELLOW URINE. PATIENT COMPLAINED OF PAIN IN HIS FEET. SOCK REMOVED FROM RT. FOOT AND HEEL PROTECTOR BOOTS ADJUSTED. PATIENT DENIED FURTHER NEEDS AND LEFT RESTING IN BED.
--- NOTE | 2020-06-14 05:56 | NUR ---
PATIENT LAB DRAWN FROM PICC. JOSEPH EMPTIED OF 300ML OF DILUTE URINE. PATIENT REQUESTED BREAKFAST.
--- NOTE | 2020-06-14 06:46 | NUR ---
JOSEPH EMPTIED AND CARDIAC LEAD PADS REPLACED. PATIENT DENIES PAIN IN FEET. LEFT RESTING IN BED WITH CURTAIN OPEN.
--- NOTE | 2020-06-14 07:30 | NUR ---
REPORT RECIEVED. PATIENT IS RESTING IN BED AT THIS TIME. NO DISTRESS NOTED.
--- NOTE | 2020-06-14 08:18 | NUR ---
WOKE FOR ASSESSMENT. MILD PAIN IN FEET, ASKING ABOUT BREAKFAST. IS CALM. PICC LINE CAPPED.
--- NOTE | 2020-06-14 09:40 | NUR ---
LEFT FOOT WRAPPED WITH BAG, PICC LINE SITE WRAPPED WELL. TO SHOWER VIA SHOWER CHAIR.
--- NOTE | 2020-06-14 10:06 | NUR ---
Pt. was out of room. bed linens changed. room cleaned by ES.
--- NOTE | 2020-06-14 10:15 | NUR ---
RETURN TO ROOM 129 AFTER SHOWER. TOLERATED WELL. DENIES PAIN OR SHORTNESS OF BREATH. NOW RESTING IN CHAIR. HYPOTENSIVE, NO TREATMENT AT THIS TIME. PATIENT IS ASYMPTOMATIC.
--- NOTE | 2020-06-14 12:30 | NUR ---
DR. MAYER HERE TO SEE PATIENT, ORDERS RECIEVED TO TRANSFER TO MED FLOOR. WILL REMAIN IN CCU HOUSE CONVEN FOR NOW. JOSEPH CATH CLAMPED PER DR. MAYER ORDERS. PATIENT IS TO TELL ME WHEN HE FEEL TO URGE TO VOID. WILL CONTINUE TO REMIND PATIENT ABOUT THIS. ASSESSMENT DONE.
--- NOTE | 2020-06-14 14:00 | NUR ---
BACK TO BED WITH ASSIST. IS MOVING MUCH BETTER, STRONGER ON LEGS.
--- NOTE | 2020-06-14 17:44 | NUR ---
Chart faxed to T requesting placement for IV antibiotics through Jun.26.
--- NOTE | 2020-06-14 18:30 | NUR ---
BLADDER NJXP=162 ML.
--- NOTE | 2020-06-14 19:04 | NUR ---
DR MAYER UDATED ON PATIENT BLADDER SCAN VALUE. ORDERS RECIEVED. LASIX 20 MG IV GIVEN, KCL 20 MEQ GIVEN. JOSEPH REMAINS CLAMPED. PATIENT IS RESTING AT THIS TIME.
--- NOTE | 2020-06-14 19:30 | NUR ---
REPORT RECIEVED FROM CCU RN, CARE OF PATIENT ASSUMED AT THIS TIME. PT RESTING IN BED, JOSEPH REMAINS CLAMPED. PT DENIES URGE TO VOID. CALL LIGHT WITHIN REACH. NO FURTHER NEEDS AT THIS TIME.
--- NOTE | 2020-06-14 20:18 | NUR ---
PT UP TO BEDSIDE COMMODE TO HAVE BOWEL MOVEMENT. PT HAD A HARD SMALL STOOL. BACK IN BED. STILL DENIES THE NEED TO VOID. ASSESSMENT COMPLETE. PT LUNGS SOUND COARSE. BLOOD PRESSURE WNL. SPO2=96 PERCENT ON ROOM AIR. PT COMPLAINS OF ITCHING IN ARMS AND LEGS. MULTIPLE OPEN AREAS AND AREAS COVERED WITH ALLEVYN DRESSING.
--- NOTE | 2020-06-14 20:33 | NUR ---
PT FEELS URGE TO VOID AT THIS TIME. BLADDER SCANNED FOR 761 MLS OF URINE. JOSEPH REMOVED. PT UP TO BSC AT THIS TIME ATTEMPTING TO VOID.
--- NOTE | 2020-06-14 21:18 | NUR ---
RESPONDED TO PT CALL LIGHT. PT COMPLAINS OF HEADACHE HE RATES 8/10. PRN MEDICATION GIVEN (SEE EMAR).
--- NOTE | 2020-06-14 21:34 | NUR ---
DR MAYER UPDATED ON PT'S POST VOID RISIDUAL AFTER VOIDING. ORDER TO PUT JOSEPH CATHETER BACK IN AT THIS TIME.
--- NOTE | 2020-06-14 21:52 | NUR ---
JOSEPH INSERTED AT THIS TIME. WELL TOLERATED BY PATIENT. 550 MLS OF YELLOW URINE IMMEDIATE RETURN.
--- NOTE | 2020-06-15 | NUR ---
PT RESTING WITH EYES CLOSED, BREATHING EVEN AND UNLABORED RR=18. CALL LIGHT AND PERSONAL BELONGINGS WITHIN REACH.
--- NOTE | 2020-06-15 02:00 | NUR ---
PT REMAINS ASLEEP. BREATHING EVEN AND UNLABORED RR=20. PT RESTING ON LEFT SIDE. JOSEPH DRAINING PALE YELLOW URINE. CALL LIGHT WITHIN REACH. NO ASSESSED NEEDS AT THIS TIME.
--- NOTE | 2020-06-15 05:46 | NUR ---
IN ROOM TO COMPLETE ASSESSMENT, TO DRAW BLOOD, AND FOR MEDICATION ADMINISTRATION. PT COMPLAINS OF LEFT HEEL PAIN HE RATES 6/10. PRN MEDICATION GIVEN. PT HAS SEVERAL AREAS OF SKIN BLEEDING. APPLIED LOTION. REPOSITIONED PT IN BED. CALL LIGHT WITHIN REACH. DENIES FURTHER NEEDS AT THIS TIME.
--- NOTE | 2020-06-15 07:51 | NUR ---
Assessment completed. Alert and oriented this AM. Orders breakfast. Lying in bed at this time. Verbalizes desire to have souza catheter removed. Denies other needs at this time. Call light in reach, bed rails up X2. Arms elevated on pillows.
--- NOTE | 2020-06-15 08:13 | NUR ---
Standby assist from bed to recliner for breakfast. Call light in reach.
--- NOTE | 2020-06-15 09:23 | NUR ---
Returns to bed with standby assist and walker. AM medications given. Takes without difficulty. Patient also completes oral care for self. PICC line pulls blood without difficulty and flushes without resistance.
--- NOTE | 2020-06-15 10:27 | NUR ---
Report to Jefry Zelaya RN on med-surg. Patient taken to room 123 from CCU room 129 via bed by nursing staff.
--- NOTE | 2020-06-15 10:36 | NUR ---
PATIENT TRANSFERRED TO FLOOR VIA BED. VITALS CHARTED. RN IN TO SEE PATIENT, WARM BLANKET PROVIDED, CALL LIGHT IN REACH
--- NOTE | 2020-06-15 11:00 | NUR ---
REPORT RECIEVED FROM SANDY THORNE. PT PUSHED OVER IN BED. ORDERED LUNCH. VS ASSESSED. CALL LIGHT IN REACH. JOSEPH DRAINING LIGHT YELLOW.
--- NOTE | 2020-06-15 13:05 | NUR ---
PT SITTING UP RIGHT IN BED AND APPEARS TO BE SLEEPING. RR EVEN AND UNLABORED.
--- NOTE | 2020-06-15 14:11 | NUR ---
VITALS AND I&OS CHARTED. TAKEN BY STUDENT. CALL HOLLIS SHARP
--- NOTE | 2020-06-15 15:00 | NUR ---
Spoke with Geovany and Dr. Conner. Pt wants to go home when Dr. Conner clears for dc. Discussed PT wanted to work with her for 1-2 more days. Pt denies needs for DME and he states his step son has been driving he and his for the last year. He feels safe to go home. His has macular degeneration and still shops, he or son drive her. Pt denies other needs.
--- NOTE | 2020-06-15 16:12 | NUR ---
ADMINSTERED SCHEDULED MEDS AND ANSWERED PT QUESTIONS. PT QUITE FORGETFUL AND ASKS QUESTIONS REPEATEDLY. CALLED INTO ROOM. PT SWELLING ON RIGHT ARM APPEARS TO HAVE GOTTEN WORSE. PLACED ARM ON PILLOW.
--- NOTE | 2020-06-15 17:32 | NUR ---
PATIENT RESTING IN BED. VITAL SIGNS AND I&O DONE. ICE WATER GIVEN. BED ALARM ON. CALL LIGHT WITHIN REACH. NO OTHER NEEDS AT THIS TIME
--- NOTE | 2020-06-15 18:43 | NUR ---
PT TRANSFERED FROM CCU TODAY. NAPPED OFF AND ON MOST OF DAY. EDEMA IN ARMS IS STILL WEEPING. PT REFUSED TO LET THIS RN TAKE OFF HIS RING. WOUND ON LEFT FOOT DRESSED BY MIGUE. JOSEPH DRAINING LIGHT YELLOW URINE. FORGETFUL. VERY HARD OF HEARING.
--- NOTE | 2020-06-15 19:17 | NUR ---
PATIENT RESTING QUIETLY SUPINE, EYES CLOSED, RESPIRATIONS REGULAR AND EVEN, CALL LIGHT IN REACH.
--- NOTE | 2020-06-15 19:30 | NUR ---
BED ALARM SOUNDING. pt ATTEMPTING TO GET OUT OF BED, JOSEPH STRETCHED. DRAININAG CLEAR YELLOW URINE. NEW STAT LOCK PLACED FOR JOSEPH. SBA TO RESTROOM FOR BM AND BACK TO BED. LINENS CHANGED pt APPEARS TO HAVE PICKED AT AREAS ON ARMS, SMALL AMT BLOOD ON SHEETS. pt INSTRUCTED NOT TO PICK AT SKIN. BED ALARM SET. PRIMARY RN AURELIO NOW IN ROOM.
--- NOTE | 2020-06-15 21:27 | NUR ---
CHECKED PATIENT'S PICC LINE TO START VANCO, HALF THE DRESSING WAS LOOSE AND THERE WAS SOME DRAINAGE FROM UNDER THE DRESSING, 15CM EXPOSED, BUT CHARTED ONLY 6CM EXPOSED, LINE HAD FLUSHED WITH 20MLS NS EASILY, BUT NO BLOOD RETURN, FLUSHED WITH 20MLS AGAIN, NO LEAKING OR SWELLING NOTED AROUND THE SITE. INFORMED BIANCA CHARGE NURSE AND WENDY NURSING DOCK LOADER. WENDY WAS ABLE TO GET BLOOD RETURN AND REMOVED THE OLD DRESSING AND CLEAN IT UNDER STERILE PROCEDURE AND RESECURE THE PICC LINE AND NEW STERILE DRESSING PLACED WITH 15CM EXPOSED TO SECUREMENT DEVICE. CIRCUMFERENCE OF ARM OVER SITE IS 30CM. DR. MAYER WAS INFORMED OF LOOSE DRESSING, DRAINAGE, AND LINE EXTENDING OUT PAST WHAT WAS CHARTED AND HE INFORMED ME TO REFER TO THE NURSING DOCK LOADER TO WHAT TO DO WITH IT. THIS IS WHEN WENDY TOOK OVER CLEANING AND RESECURING LINE AND SANDY ORO, PICC LINE NURSE WAS ALSO CONTACTED BY BIANCA POWELL NURSE.
--- NOTE | 2020-06-15 22:23 | NUR ---
called by pt nurse to assess picc line. per previous documention line was marked as 6cm exposed. picc noted to be exposed at 15cm. line flushes easily and blood return noted. central line dressing changed using sterile technique. dr. eid notified per ta lackey. spoke with franklin turner rn who said to recheck chest xray as picc has mostly likely migrated. if positive for blood return ok to cont to use and he will send out a text to picc team to assess tomorrow or the next day. passed info on to ms charge and bedside rn. order placed for xr.
--- NOTE | 2020-06-15 22:32 | NUR ---
RN AURELIO NOTIFIED THIS RN OF PICC LINE ASSESSMENT, DRESSING APPEARS SOILED, LINE PULLED OUT FROM ORIGINAL MEASUREMENT. MATERIALS SUPERVISOR RN NOTIFIED AND IN ROOM TO ASSESS. PICC LINE RN KEY BED INSTALLER NOTIFIED. RECOMMENDED FOR CHEST X RAY. OKAY TO USE PICC LINE WITH GOOD BLOOD RETURN. PRIMARY RN NOTIFIED, MD NOTIFIED.
--- NOTE | 2020-06-15 22:44 | NUR ---
PATIENT IS NOW RESTING QUIETLY AFTER VICODEN FOR BILATERAL HEEL PAIN. CALL LIGHT IN REACH.
--- NOTE | 2020-06-15 22:54 | NUR ---
IN pt ROOM, ASSISTED TO REPOSITION pt. pt COOPERATIVE, TOLERATED WELL. BED ALARM BACK ON. LIGHTS OFF IN ROOM. IV ANTIBIOTIC INFUSION WNL. CALL LIGHT IN REACH.
--- NOTE | 2020-06-16 00:32 | NUR ---
PATIENT RESTING QUIETLY, PICC LINE IS HEPLOCKED AFTER A 20ML FLUSH OF SALINE AND IT MANOJ BLOOD FINE WELL. CALL LIGHT IN REACH, RESPIRATIONS REEGULAR AND EVEN, CALL LIGHT IN REACH AND EYES CLOSED.
--- NOTE | 2020-06-16 02:03 | NUR ---
Patient up to the bedside commode with 1psba and fww, had a smear of stool and back in bed now, trying to go back to sleep. Patient's pain is undercontrol at this time. bed alarm on and call light in reach.
--- NOTE | 2020-06-16 04:19 | NUR ---
PATIENT RESTING QUIETLY, EYES CLOSED, RESPIRATIONS REGULAR AND EVEN, CALL LIGHT IN REACH AND BED ALARM ON.
--- NOTE | 2020-06-16 05:52 | NUR ---
BED ALARM WAS ACTIVATED. SANDY CAREY AND I WENT INTO SEE WHAT HE NEEDED. HE APPEARED TO BE CONFUSED TO WHY HE WAS TRYING TO GET UP. GOT HIM COVERED BACK UP AND EXPLAINED IT WAS ONLY 0600 . HE SAID " I WILL LAY BACK DOWN" BED ALARM SET. CALL LIGHT IN REACH. PT NEEDS NOTHING AT THIS TIME.
--- NOTE | 2020-06-16 05:53 | NUR ---
PATIENT HAS SLEPT A FAIR AMOUNT AFTER WE GOT HIS PICC LINE SORTED OUT, PICC LINE STILL FLUSHES AND DRAWS WELL. WE HAVE BEEN FLOATING PATIENT'S HEELS OFF THE BED THAT IS WHERE HE HAS MOST OF HIS PAIN, ESPECIALLY ON THE LEFT HEAL WHERE HE HAS 'S DRESSING ON AFTER DEBRIDEMENT. PATIENT IS VERY HARD OF HEARING AND HAS TRIED TO GET UP A FEW TIMES, WITH NO GENERAL DESTINATION IN MIND. REORIENTS EASILY AND HAS BEEN PLEASANT. SKIN IS STILL VERY RED AND EDEMATOUS AND HAD TO DO A MANUAL B/P THIS AM BECAUSE OF THE SWELLING IN HIS ARMS WE COULD NOT GET A GOOD NIBP READING. PATIENT IN BED RESTING AND TRYIG TO WAIT UNTIL BREAKFAST. CALL LIGHT IN REACH AND BED ALARM ON, JOSEPH DRAINING WELL.
--- NOTE | 2020-06-16 06:43 | NUR ---
PATIENT JUST SCRATCHED HIMSELF ON THE RIGHT UPPER CHEST AND GAVE HIMSELF A SKIN TEAR, THIS WAS CLEANSED AND AN ALLEVYN DRESSING WAS PUT IN PLACE.
--- NOTE | 2020-06-16 07:20 | NUR ---
In room for shift report from Nikko DELGADO. Report included: Pt is on bed alarm, he is forgetful and unsafe with his own movements. Pt has new wounds on his chest from his own nails. Pt MRSA positive. Pts BPs have been in the low 100s and high 90s systolic throughout the night. Pt has been alart and oriented, uses call light appropriately. Pt in bed, side rails up x4, table and call light within reach.
--- NOTE | 2020-06-16 07:32 | NUR ---
REPORT RECEIVED FROM SANDY CAREY. THIS RN, AND SANDY BROWN ASSUMING CARE OF PT. PT TRYING TO CLIMB OUT OF BED STATING "AM I GETTING UP NOW? I'M GOING HOME I THINK." PT REORIENTED TO PLACE, SITUATION AND PLAN OF CARE. PT RESTS BACK IN BED. PT DENIES ADDITIONAL REQUESTS OR COMPLAINTS. BED ALARM ON. CALL LIGHT WITHIN REACH.
--- NOTE | 2020-06-16 07:55 | NUR ---
BED ALARM SOUNDING, THIS RN TO ROOM. PT GETTING UP OUT OF BED. PT CONFUSED ABOUT WHERE HE IS AND WHAT IS HAPPING, PT STATES "I JUST DON'T UNDERSTAND WHAT IS GOING ON." PT REORIENTED TO PLACE AND EVENTS. 1 PERSON ASSIST, FWW, UP TO CHAIR. PT VERBALIZES UNDERSTANDING OF CALL LIGHT USE. CHAIR ALARM ON. CALL LIGHT WITHIN REACH.
--- NOTE | 2020-06-16 08:25 | NUR ---
LAB ORDERS DUE. THIS RN TO ROOM TO DRAW FROM PICC LINE. PICC LINE FLUSHED WITH 5ML NORMAL SALINE, FLUSHES EASILY BUT WILL NOT DRAW. GYMNASTIC MOVMENTS PERFORMED, NO BLOOD RETURN NOTED. PICC LINE RN, SHORTY, CALLED AND STATES THAT PICC LINE IS OK TO USE BUT ALTEPLASE SHOULD BE GIVEN FIRST. ALTEPLASE ORDERED FROM LAB. LAB CALLED AND WILL COME TO BEDSIDE FOR PERIFERAL LAB DRAW. PT REMAINS UP TO CHAIR, EATING BREAKFAST. NO ADDITIONAL REQUESTS OR COMPLAINTS. CALL LIGHT WITHIN REACH. CHAIR ALARM ON.
--- NOTE | 2020-06-16 08:44 | NUR ---
ALTEPLASE GIVEN ORDRED. PT REMAINS UP TO CHAIR. PT FINISHED WITH BREAKFAST. PT BELIEVES IT IS "NEW YEARS DAY AND MY IS ALONE." PT REORIENTED TO PLACE TIME AND EVENTS. PT VERBALIZES UNDERSTANDING OF PLAN OF CARE. PT REMAINS UP TO CHAIR. CHAIR ALARM ON. CALL LIGHT WITHIN REACH.
--- NOTE | 2020-06-16 09:00 | NUR ---
JERAMIE INFORMED THIS RN THAT PT WAS FOUND UP INDEPENDANTLY IN SHOWER. JERAMIE SEVERINO REMAINS AT BEDSIDE ASSITING PT WITH SHOWER. PT'S DRESSING TO LEFT FOOT NOTED TO BE SATURATED. PICC LINE INTACT, DRESSING COVERED BY JERAMIE SEVERINO. DR. CAMARENA CALLED REGARDING LEFT LOWER EXTREMITY DRESSING. TELEPHONE ORDERS GIVEN, AND REPEATED BACK, FOR DRESSING CHANGE. DR. CAMARENA STATES PT WILL FOLLOW UP AN OUTPATIENT AFTER DISCHARGE. ORDERS ENTERED.
--- NOTE | 2020-06-16 09:30 | NUR ---
In room for assessment and med pass. Pt getting out of the shower now. Pt up to chair with FENCE MAKING MACHINE OPERATOR SBA and FWW. Pt denies dizziness. Pt denies nausea and reports 5/10 tolerable pain in left foot. Pt assessment complete, VSS, pts left foot wrapped and got wet in the shower. Pts skin is more red/dark pink in his extremeties. Pt states the redness and swelling in his arms and legs is not normal for him. FENCE MAKING MACHINE OPERATOR reports that pt got himself into shower today, so pt is being moved to a room closer to the nurses station. Bed and chair alarms will be used continuously. Pt able to take all meds without difficulty. Alteplase placed in PICC line earlier this morning by Hodan DELGADO. Pts IV still doesn't draw blood, waiting another hour per protocol for ATP. Pt in chair, table and call light within reach, chair alarm placed.
--- NOTE | 2020-06-16 10:50 | NUR ---
In room for wound care. Orders given by MD Mcpherson. Wound dressing removed. Pts wounds were open on the lateral side of his left foot, appearing blackened, no active drainage. Pt has small opened area on his left posterior heel as well. Wounds covered in xeroform then the foot was covered in gauze and coband per MD orders. Wound had no noticable odor, no active drainage. Pt tolerated well.
--- NOTE | 2020-06-16 10:53 | NUR ---
In room to reassess PICC line. Line still not patent after 1 alteplase admin to line. Pt arm measures 30.5cm around on both arms. Lower left arm measures 32cm around, still red and edematous. Hodan RN at bedside to start new peripheral IV line since ABX vancomycin is overdue. Pt denies needs at this time. Pt in chair, table and call light within reach.
--- NOTE | 2020-06-16 11:00 | NUR ---
VANCOMYACIN OVERDUE. PTS PICC LINE WITH ALTEPLASE IN LINE ASSESSED. ATTMEPTED TO REMOVE ALTEPLASE FROM LINE. NO NO BLOOD RETURN NOTED. MINIMAL FLUID REMOVED FROM LINE. 2ND DOSE OF ALTEPLASE INSERTED INTO LINE PER PROTOCOL. 22G IV STARTED IN RIGHT HAND PER PROTOCOL, VANCOMYACIN INFUSING. UPDATED ON PICC LINE STATUS. ORDERS GIVEN TO REMOVE PICC LINE. PT RESTING IN CHAIR. CHAIR ALARM ON. CALL LIGHT WITHIN REACH. PT EASILY VEIWED FROM NURSES STATION.
--- NOTE | 2020-06-16 11:17 | NUR ---
In room for alteplase PICC line admin. Pt given second dose of alteplase after over 1.5hrs of first admin. Pts PICC line still not drawing blood. ATP in line. Pt getting IV vanco through his new IV in his right hand, placed by Hodan DELGADO. Pt educated and told to call with any irritation to IV site. Ptin chair, table and call light within reach. Pt visible from nurses station, chair alarm on.
--- NOTE | 2020-06-16 12:10 | NUR ---
PUMP ALARMING, VANCO INFUSION AND FLUSH COMPLETE. IV SALINE LOCKED AT THIS TIME. ALCOHOL CAP APPLIED. PT UP TO AMBULATE WITH PHYSICAL THERAPY. NO REQUESTS OR COMPLAINTS AT THIS TIME.
--- NOTE | 2020-06-16 12:48 | NUR ---
In room to DC PICC line. Pt put in trundelenburg position in bed, PICC line removed per protocol and pressure dressing applied. Pt tolerated well. PICC line removed to 46cm, intact. Pt returned to normal position, repositioned to comfort. Pt in bed, semi fowlers, side rails up x2, table and call light within reach, pt visible from nurses station, bed alarm on.
[2020-06-16] MEDS ORDERED: MIDODRINE HCL10 MG PO (14:09)
[2020-06-16] MEDS ORDERED: DOXYCYCLINE HY100 MG PO (14:11)
--- NOTE | 2020-06-16 15:09 | NUR ---
In room for assessment. Pt denies nausea and reports minimal tolerable pain in left foot. Pt assessment complete, pts arms and legs are still edematous and pt has a few places on his skin that have started bleeding from unknown causes, likely scratching. Pt denies itching. Pt in bed, side rails up, table and call light within reach, bed alarm on, pt visible from nurses station.
--- NOTE | 2020-06-16 16:03 | NUR ---
In room for medical device. Pt able to take med without difficulty. Pt denies pain and nausea at this time. "Just that little pain in my bad foot here". Pt alert and oriented x3, unsure of exact date. Pt agrees to get up to chair for dinner, but doesnt want to now. Pt has slight skin tare on his left side torso, and I covered it with an allevyn. Pt given warm blanket by Hodan DELGADO. Pt in bed, side rails up, table and call light within reach.
--- NOTE | 2020-06-16 16:59 | NUR ---
Pt being treated for hypotension and weakness. Pt seeing Physical therapy and therapists report pt is doing well in therapy. Pt is anticipating going home tomorrow. Pt has poor skin turgor and edema in extremeties. Pt is forgetful and overestimates, bed alarm on. Pt moved to a room closer to nurses station today after getting up to shower himself.
--- NOTE | 2020-06-16 17:00 | NUR ---
PTS MINERVA CALLED FOR UPDATED. MINERVA UPDATED ON PTS PLAN OF CARE AND POSSIBLE DISCHARGE TOMORROW. MINERVA VERBALIZES UNDERSTANDING AND STATES HER QUESTIONS HAVE BEEN ANSWERED. CALL FORWARDED TO PTS ROOM FOR PT TO TALK WITH . PT TALKING WITH ON PHONE. BED RAILS UP. CALL LIGHT WITHIN REACH.
--- NOTE | 2020-06-16 17:37 | NUR ---
THIS RN TO ROOM TO CHECK ON PT. 1 PERSON ASSIST WITH FRONT WHEEL WALKER UP TO CHAIR FOR DINNER. PT DENIES PAIN AND NAUSEA. NO ADDITIONAL REQUESTS OR COMPLAINTS. CHAIR ALARM ON. CALL LIGHT WITHIN REACH.
--- NOTE | 2020-06-16 18:40 | NUR ---
THIS RN TO ROOM TO ASSIST WITH IV START. IV TO LEFT HAND FROM PTS TIME IN ER HAS INFILTRATED AND NO LONGER FLUSHES (SITE INCORRECT IN DOCUMENTATION) PT CRIES IN PAIN WITH ATTEMPT TO FLUSH. IV TO LEFT HAND DC'D PER PROTOCOL. GAUZE APPLIED. NEW IV STARTED TO RIGHT HAND PER PROTOCOL. PT RESPONDS TO PAIN BUT CONTINUES TO BE LETHARGIC WITH IV START. BRISK BLOOD RETURN NOTED. IV FLUIDS STARTED AND FOLLOWED WITH TKO AT 20ML/HR. IV WRAPPED WITH BULK DRESSING OF KERLIX WITH SOCK GLOVE OVER THE TOP. PARENTS WITH PT. SANDY BROWN AT BEDSIDE. NO ADDITIONAL NEEDS AT THIS TIME. PT RESTING IN BED WITH EYES CLOSED, RR= 20BPM, EVEN AND UNALBORED. O2 SATURATION AT 95-100% ON ROOM AIR. CALL LIGHT WITHIN REACH. MOTHER IN BED WITH PT. CRIB USE EXPLAINED TO MOTHER WHO VERBALIZES UNDERSTANDING OF PLACING PT IN CRIB IF SHE HAS TO LEAVE PT ALONE IN BED FOR ANY REASON.
--- NOTE | 2020-06-16 19:45 | NUR ---
PT CALLED TO USE RESTROOM, BED ALARM SOUNDED PT SAT AT EGDE OF BED. 1PA W/FWW TO RESTROOM AND BACK TO BED. BED ALARM IS ON AND CALL LIGHT IS CLOSE. PT DENIES FURTHER NEEDS.
--- NOTE | 2020-06-16 21:30 | NUR ---
IN RM WITH RN TO ASST WITH VITALS, REPOSITION PT, FRESH WATER GIVEN, WARMBLANKET PROVIDED, RN COMPLETING ASSESMENT, NO FURTHER NEEDS AT THIS TIME
--- NOTE | 2020-06-16 21:34 | NUR ---
On contact isolation MRSa. Room air, Repositioned in bed, hob elevated, has 9 blankets and xtra warm blanket given.Room temp at 76, and 2 extra blankets at feet, his requests. t 99 afterward, CDB encouraged. will not remove blankets as pt c/o still being cold. will recheck. scabbed over forehead area healing and areas aover chest ,arms. Allevyn R chest, red jose area, barrier lotion applied, attends in place, f/c patent, draining dark yellow urine, red jose area and abd folds noted. L arm edematous, 2+ pulses palpable, red coloring. same as R arm and LE with 1+ edema. palpable pulses except L foot due to dressing, elevated in pillows. arms elevated, [place], answers apporpriately, IV restarted as pt has accidentally pulled out, procedure explained coop. BP manually 98/46, Irregular pulse. no c/o sob
--- NOTE | 2020-06-16 23:47 | NUR ---
TURNS SELF IN BED, REMOVED COVERS HIMSELF, AND NOW HAS ONLY [address], TEMP 98.2
--- NOTE | 2020-06-17 00:33 | NUR ---
pt turns self in bed, on room air, he removed all his covers and left only one in place, no distress. call light at bedside. L foot dressing intact, elevated
--- NOTE | 2020-06-17 01:58 | NUR ---
confused to placeand situation, easily reoriented, up to br, had small bm. back to bed. pt scratching skin lotion applied to back, chest, arms and jose area. f/c paten, slight sob with exertion after moving around in room his requests. tolerated well. Ortho shoe L foot when up. pleasant and coop. Bed alarm on. on room air. Danny c/o pain
--- NOTE | 2020-06-17 03:17 | NUR ---
resting, eyes closed, no distress, l arm and legs elevated, f/c patent
--- NOTE | 2020-06-17 06:35 | NUR ---
pt sitting edge of bed, Bed alrm on but did not go off. /C hanging from FWW, I already got up and went to the br, I soiled my pants . Smear of bm present over buttocks, creased and bedding, beddding removed, skin care done. Pt has new self scratched over areas over both knees, no drainage noted at this time. lotion applied to all body. dressing L foot intact, L arm edema w/o changes. and LE. bp 86/49, aware of pts chronic low bp, asymptomatic. Back to bed, pleasant and coop, Bed alarm back on. Pt had stuffed soiled attends into toilet, Instructed to place soiled attends in garbage can provided at hands reach from when sitting in toile, stated understanding. Went back to sleep, no sob with exertion noted or stated
--- NOTE | 2020-06-17 06:35 | NUR ---
IN RM WITH RN TO GET VITALS, I&Os, PT GOT FRESH ATTENDS, REPOSITIONED IN BED, RN COMPLETING ASSESSMENT, NO FURTHER NEEDS AT THIS TIME
--- NOTE | 2020-06-17 07:32 | NUR ---
REPORT RECEIVED FROM SANDY SMYTH. THIS RN AND SANDY BROWN ASSUMING CARE OF PT. 1 PERSON ASSIST WITH FRONT WHEEL WALKER UP TO CHAIR. FALL PRECAUTIONS REVIEWED W/PT. PT REPORTS HE IS "GOING TO GET MY SELF DRESSED AND GET GOING." PT UPDATED ON PLAN OF CARE. PT VERBALIZES USE OF CALL LIGHT AND IS ABLE TO POINT OUT CALL LIGHT AND STATE HE WILL CALL BEFORE GETTING UP. PT DENIES PAIN AND NAUSEA. CHAIR ALARM ON. CALL LIGHT WITHIN REACH. PT EASILY VIEWED FROM NURSES SATATION.
--- NOTE | 2020-06-17 07:37 | NUR ---
To room for morning shift report from Codi DELGADO. Report included: Pt was forgetful several times last night, getting up to the bathroom himself and trying to flush his pants down the toilet. Ignacio pulled his IV out and Codi started another one. Pt is now up to the chair, chair light on, table and call light within reach.
--- NOTE | 2020-06-17 08:19 | NUR ---
THIS RN TO ROOM TO CHECK ON PT. PT EATING BREAKFAST. PT CONTINUES TO REPORT HE "WILL GET UP ON MY OWN WHEN I'M READY." FALL PRECAUTIONS REVEIWED AGAIN WITH PT. IV DRESSING LOOSE AND COMING OFF. IV SITE CARE DONE. NEW DRESSING APPLIED. VITALS TAKEN. MORNING CARES DONE. LINENS CHANGED. PT UPDATED ON PLAN OF CARE. PT HAS TROUBLE HEARING PLAN OF CARE BUT IS ABLE TO REPEAT BACK THAT HE EXPECTS TO DISCHARGE TODAY AND THAT HE IS RECEIVING ANTIBIOTICS. NO ADDDITIONAL REQUESTS OR COMPLAINTS. CALL LIGHT [employer] REACH. CHAIR ALARM ON.
--- NOTE | 2020-06-17 08:29 | NUR ---
Face sheet, dc summary, PT/OT eval and notes faxed to [facility] as they have RN availability.
--- NOTE | 2020-06-17 09:30 | NUR ---
In room for assessment and med pass. Pt able to take all meds without difficulty. Pt assessment complete, VSS, pts legs appear less red than yesterday but all extremeties still edematous and red and scaling. Pt denies nausea and reports 10/10 pain in left foot, but refuses pain meds for it. Pt getting IV vanco at this time. Pt informed of procedure and told to call with any IV site pain or irritation. Pt able to repeat back information. Pt repositioned in chair to comfort. IV site assessed multiple times prior to leaving the room. Pt in chair, table and call light within reach. Chair alarm on, pt visible from nurses station.
--- NOTE | 2020-06-17 10:38 | NUR ---
In room for rounding. Pt in chair, denies pain and nausea at this time. Pts IV infusing. Pt denies pain in IV site. Pt in chair, table and call light within reach, chair alarm on, visible from nurses station.
--- NOTE | 2020-06-17 12:00 | NUR ---
Spoke with Geovany. Plans on dc to home today. He would like [facility]. H&P, dc Summary, face sheet, referral for HH, and note stating last catheter change was 06/15/20. Pt plans on son driving him home.
--- NOTE | 2020-06-17 13:41 | NUR ---
Pts Jeri called and made aware of DC for pt. Jeri claims she should be here within the next 30mins-hour, but agrees to contact us if that time-frame changes.
--- NOTE | 2020-06-17 14:10 | NUR ---
In room for director media. Pt able to take meds without difficulty. Pt in chair, table and call light within reach. Pt with Hodan DELGADO at bedside.
--- NOTE | 2020-06-17 14:15 | NUR ---
PT READY FOR DISCHARGE. THIS RN TO ROOM. JORDAN CARE DONE AND DEPENDS CHANGED. LOTION APPLIED TO ALL SKIN OF LIMBS, ARMS AND ABDOMEN. PT DRESSED IN CLOTHES FROM HOME. PT VERBALIZES UNDERSTANDING OF [facility] C[facility]. JOSEPH CARE DONE WITH PT. PT AWAITING ARRIVAL OF HIS FOR TRANSFER HOME. NO ADDITIONAL REQUESTS OR COMPLAINTS. LOTION PROVIDED FOR PT TO TAKE HOME. CALL LIGHT WITHIN REACH. CHAIR ALARM ON. PT EASILY VIEWED FROM NURSES STATION.
--- NOTE | 2020-06-20 13:02 | NUR ---
Notified by Dr. Conner, pt returned to the ER x2 for his catheter over the weekend. Chart was faxed to [facility] on 06/17/20 and I spoke with Argenis. Called [facility] and they deny receiving the chart. Chart refaxed.
== END 2020-06-17 14:45 | disposition home health service (06) | DRG 314 ==
LOC: ED 11:14 → CCU 11:16 → MS 06-15 10:30
PROVIDERS: ADMIT Internal Medicine; ATTEND Internal Medicine
PROC: 02HV33Z Insertion of Infusion Device into Superior Vena Cava, Percutaneous Approach (ICD-10-PCS; principal; 2020-06-12 17:00)
DX: I95.89 Other hypotension (principal); I50.33 Acute on chronic diastolic (congestive) heart failure; I48.21 Permanent atrial fibrillation; R78.81 Bacteremia; Z20.828 Contact with and (suspected) exposure to other viral communicable diseases; N40.1 Benign prostatic hyperplasia with lower urinary tract symptoms; R33.8 Other retention of urine; B95.62 Methicillin resistant Staphylococcus aureus infection as the cause of diseases classified elsewhere; R21 Rash and other nonspecific skin eruption; I73.9 Peripheral vascular disease, unspecified; L97.522 Non-pressure chronic ulcer of other part of left foot with fat layer exposed; H91.90 Unspecified hearing loss, unspecified ear; Z91.81 History of falling; Z88.0 Allergy status to penicillin; Z88.8 Allergy status to other drugs, medicaments and biological substances; Z79.899 Other long term (current) drug therapy; Z86.73 Personal history of transient ischemic attack (TIA), and cerebral infarction without residual deficits; Z95.820 Peripheral vascular angioplasty status with implants and grafts; Z79.01 Long term (current) use of anticoagulants; Z79.02 Long term (current) use of antithrombotics/antiplatelets
CPT/HCPCS: 36415; 36569; 51702; 71045; 80048; 80053; 80162; 80202; 80400; 81001; 82533; 83605; 83735; 83880; 84484; 85025; 85610; 85651; 86140; 87040; 87077; 87186; 93306; 97116; 97162; 97165; 99285-25; C1751; C9803; J0834; J1940; J2997; J3370; J3475; J7030; J7060; U0003

== ENCOUNTER 2020-06-18 11:46 | Emergency (ER) | payer MEDICARE ==
[~2020-06-18] VITALS: Ht 175.3 cm; Wt 78.0 kg
[~2020-06-18 11:46] MED LIST changes: +DOXYCYCLINE HY100 MG PO; +K-TAB ER20 MEQ PO
--- OUTSIDE RECORDS SUMMARY | 2020-06-18 11:48 | XMS ---
PreManage Notification: DORA ARELLANO Security Supervisor Shearing Events No recent Security Events currently on file CRITERIA MET - [facility] - 2 Visits in 30 Days CARE PROVIDERS JESUS [facility] 06/13/2020-Current PHONE: [phone] Dat has no Care Guidelines for this patient. [place] VISIT COUNT (12 MO.) 6 [facility] TOTAL 6 NOTE: Visits indicate total known visits. 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 - Personal history of transient ischemic attack (TIA), and cerebral infarction without residual deficits - Other nursing home (current) drug therapy - Allergy status to [...] and cerebral infarction without residual deficits - alf (current) use of anticoagulants - Laceration without foreign body of right forearm, initial encounter - Other patternmaker hand (current) drug therapy - Unspecified atrial fibrillation [...] body of right shoulder, initial encounter - leather goods sales representative (current) use of antithrombotics/antiplatelets 11/20/2019 08:59 [facility] TYPE: Emergency COMPLAINT: - FALL DIAGNOSES: - Other patternmaker hand (current) drug therapy - Allergy status to penicillin - Allergy status to other drugs, medicaments and biological substances - Abrasion of other part of head, initial encounter - Fall on same level, unspecified, initial encounter - Laceration without foreign body of right forearm, initial encounter 08/14/2019 07:37 [facility] TYPE: Emergency COMPLAINT: - ABD PAIN DIAGNOSES: - Allergy status to penicillin - Unspecified atrial fibrillation - Other nursing home (current) drug therapy - Allergy status to other drugs, medicaments and biological substances - alf (current) use of anticoagulants - Constipation, unspecified - Personal history of transient ischemic attack (TIA), and cerebral infarction without residual deficits INPATIENT VISIT TRACKING (12 MO.) 06/10/2020 09:32 [facility] TYPE: Medical Surgical COMPLAINT: - HYOPTENSION 09/11/2019 05:35 [facility] TYPE: Internal Medicine DIAGNOSES: - Chronic atrial fibrillation, unspecified - Anemia, unspecified - Unspecified atrial fibrillation - Peripheral vascular disease, unspecified - Chronic diastolic (congestive) heart failure - Essential (primary) hypertension - Occlusion and stenosis of bilateral carotid arteries [email or web address]
== END 2020-06-18 14:03 | disposition home or self-care (01) ==
LOC: ED 11:46
DX: S37.30XA Unspecified injury of urethra, initial encounter (principal); I48.91 Unspecified atrial fibrillation; Z86.73 Personal history of transient ischemic attack (TIA), and cerebral infarction without residual deficits; Z88.0 Allergy status to penicillin; Z88.8 Allergy status to other drugs, medicaments and biological substances; Z79.899 Other long term (current) drug therapy; Z79.01 Long term (current) use of anticoagulants; X58.XXXA Exposure to other specified factors, initial encounter
CPT/HCPCS: 51702; 99283-25

== ENCOUNTER 2020-06-24 10:00 | Emergency (ER) | payer MEDICARE ==
[~2020-06-24] VITALS: Ht 175.3 cm; Wt 72.6 kg
--- OUTSIDE RECORDS SUMMARY | 2020-06-24 10:04 | XMS ---
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 [place] VISIT COUNT (12 MO.) 7 [facility] TOTAL 7 NOTE: Visits indicate total known visits. ED/UCC VISIT TRACKING (12 MO.) 06/24/2020 10:01 [facility] TYPE: Emergency COMPLAINT: - WEAKNESS 06/18/2020 11:47 [facility] TYPE: Emergency COMPLAINT: - CATH PROBLEM DIAGNOSES: - Unspecified injury of urethra, initial encounter - Personal history of transient ischemic attack (TIA), and cerebral infarction without residual deficits - Allergy status to penicillin - Unspecified atrial fibrillation - Other prison (current) drug therapy - Exposure to other specified factors, initial encounter - manager long term care (current) use of anticoagulants - Allergy status to other drugs, medicaments and biological substances 06/09/2020 11:15 [facility] TYPE: Emergency COMPLAINT: - URINE PROBLEM 04/17/2020 09:04 [facility] TYPE: Emergency COMPLAINT: - WEAKNESS/FALL DIAGNOSES: - Unspecified atrial fibrillation - senior care (current) use of anticoagulants - Personal history of transient ischemic attack (TIA), and cerebral infarction without residual deficits - Other prison (current) drug therapy - Allergy status to [...] and cerebral infarction without residual deficits - senior care (current) use of anticoagulants - Laceration without foreign body of right forearm, initial encounter - 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 - Unspecified atrial fibrillation [...] body of right shoulder, initial encounter - manager long term care (current) use of antithrombotics/antiplatelets 11/20/2019 08:59 [facility] TYPE: Emergency COMPLAINT: - FALL DIAGNOSES: - 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 - Allergy [...] penicillin - Unspecified atrial fibrillation - 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 - Allergy status to other drugs, medicaments and biological substances - senior care (current) use of anticoagulants - Constipation, unspecified - Personal history of transient ischemic attack (TIA), and cerebral infarction without residual deficits INPATIENT VISIT TRACKING (12 MO.) 06/10/2020 09:32 [facility] TYPE: Medical Surgical COMPLAINT: - HYOPTENSION DIAGNOSES: - Permanent atrial fibrillation - Contact with and (suspected) exposure to other viral communicable diseases - Other retention of urine - senior care (current) use of anticoagulants - 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 - Benign prostatic hyperplasia with lower urinary tract symptoms - Acute on chronic diastolic (congestive) heart failure - 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 - Methicillin resistant Staphylococcus aureus infection as the cause of diseases classified elsewhere - Non-pressure chronic ulcer of other part of left foot with fat layer exposed - manager long term care (current) use of antithrombotics/antiplatelets - Bacteremia - Peripheral vascular angioplasty status with implants and grafts - Personal history of transient ischemic attack (TIA), and cerebral infarction without residual deficits - Rash and other nonspecific skin eruption - Peripheral vascular disease, unspecified - Allergy status to other drugs, medicaments and biological substances - Bacteremia - Allergy status to penicillin - Peripheral vascular disease, unspecified - Rash and other nonspecific skin eruption - Unspecified hearing loss, unspecified ear - Allergy status to other drugs, medicaments and biological substances - Acute on chronic diastolic (congestive) heart failure - Benign prostatic hyperplasia with lower urinary tract symptoms - Non-pressure chronic ulcer of other part of left foot with fat layer exposed - Other retention of urine - Allergy status to penicillin - Contact with and (suspected) exposure to other viral communicable diseases - Methicillin resistant Staphylococcus aureus infection as the cause of diseases classified elsewhere - Permanent atrial fibrillation - History of falling - Personal history of transient ischemic attack (TIA), and cerebral infarction without residual deficits - History of falling - Peripheral vascular angioplasty status with implants and grafts - senior care (current) use of anticoagulants - manager long term care (current) use of antithrombotics/antiplatelets - Unspecified hearing loss, unspecified ear - Other hypotension [facility]: Internal Medicine DIAGNOSES: - Chronic atrial fibrillation, unspecified - Anemia, unspecified - Unspecified atrial fibrillation - Peripheral vascular disease, unspecified - Chronic diastolic (congestive) heart failure - Essential (primary) hypertension - Occlusion and stenosis of bilateral carotid arteries [email or web address]
== END 2020-06-24 18:10 | disposition short-term general hospital (02) ==
LOC: ED 10:00
DX: T68.XXXA Hypothermia, initial encounter (principal); I95.9 Hypotension, unspecified; R41.82 Altered mental status, unspecified; Z79.01 Long term (current) use of anticoagulants; R31.9 Hematuria, unspecified; I48.91 Unspecified atrial fibrillation; Z86.73 Personal history of transient ischemic attack (TIA), and cerebral infarction without residual deficits; Z88.0 Allergy status to penicillin; Z88.8 Allergy status to other drugs, medicaments and biological substances; Z79.899 Other long term (current) drug therapy
CPT/HCPCS: 70450; 71045; 73502; 80053; 81001; 83605; 84484; 85025; 85610; 96365; 99285-25; J3430; J7030; U0003